=== PATIENT | female | born 1950 | race Caucasian/White ===

== ENCOUNTER → 2017-09-11 | Outpatient (CLI) | payer MEDICARE, SELFPAY | PROVIDERS: Visit Provider Surgery | DX: R97.0 Elevated carcinoembryonic antigen [CEA]; Z85.038 Personal history of other malignant neoplasm of large intestine ==

== ENCOUNTER → 2017-09-17 | Outpatient (CLI) | payer MEDICARE, SELFPAY | PROVIDERS: Visit Provider Surgery | DX: R97.0 Elevated carcinoembryonic antigen [CEA] (principal); Z85.038 Personal history of other malignant neoplasm of large intestine | CPT/HCPCS: 71260; 74177; Q9967 ==

== ENCOUNTER → 2017-11-25 07:59 | Outpatient (CLI) | payer MEDICARE, SELFPAY ==
--- NOTE | 2017-11-25 08:08 | XR_ITS ---
XR KUB CLINICAL INDICATION: ITS.REASON: KIDNEY STONES ORDERING PHYSICIAN: Jordin Isabel MD PATIENT AGE: 67 years COMPARISON: 06/19/2016 FINDINGS: There is some residual barium within the colon from very minimal. Prior fusion of L4-L5 with degenerative changes of the spine. Previously noted calcific density to the right of L1-L2 is once again noted unchanged consistent with an accessory center of ossification as seen on the CT scan. There are vascular calcifications. Bilateral hip prosthesis noted. There is sclerosis of the SI joints bilaterally left greater than right IMPRESSION: No obvious renal or ureteral calculi. Other findings as described above
== END ==
PROVIDERS: PCP Urology; Visit Provider Urology
DX: N20.0 Calculus of kidney (principal)
CPT/HCPCS: 74018

== ENCOUNTER → 2017-12-10 10:31 | Outpatient (POV) | payer MEDICARE, SELFPAY ==
[2017-12-10 11:50] LABS: Blood Urea Nitrogen 13 mg/dL (7-18); Creatinine,Serum 0.62 mg/dL (0.55-1.02); Estimated Glomerular Filt Rate 96 ml/min (>60); GFR (African American) 116 ML/MIN (>60)
[2017-12-12 09:29] LABS: CEA 3.5 ng/mL (0.0-4.7)
== END ==
PROVIDERS: Internal Medicine; Surgery; Visit Provider Otolaryngology
DX: R97.0 Elevated carcinoembryonic antigen [CEA] (principal); Z85.038 Personal history of other malignant neoplasm of large intestine
CPT/HCPCS: 36415; 82378; 82565; 84520

== ENCOUNTER → 2017-12-17 12:41 | Outpatient (CLI) | payer MEDICARE, SELFPAY ==
--- NOTE | 2017-12-17 12:43 | CT_ITS ---
CT chest w con HISTORY: Follow-up pulmonary nodule with history of colon cancer ORDERING PHYSICIAN: Humberto Frazier MD PATIENT AGE: 67 years TECHNIQUE: Axial images obtained following the administration of 75 mL of Isovue 370 . Sagittal, and coronal reformatted images are also generated and reviewed. All CT scans at the facility use one or more dose reduction, viz: automated exposure control; ma/kV adjustment per patient size (including targeted exams where dose is matched to indication; i.e. head); or iterative reconstruction technique. COMPARISON: 09/17/2017 FINDINGS: No mediastinal or hilar mass or adenopathy is evident. Coronary artery calcifications are present with normal heart size no evidence of aortic aneurysm.. Centrilobular emphysematous changes. There is a 5 mm noncalcified nodule in the anterior aspect of the right upper lobe. The nodule appears very slightly more bulky however this could be related to difference in slice orientation, probably overall not significantly changed. Additional 5 mm noncalcified nodule in the central aspect of the right upper lobe and a faint 5 mm nodule in the inferior aspect of the right upper lobe anteriorly unchanged. Calcified granuloma is present in the left lower lobe. There are mild dependent changes in the lung bases posteriorly. No effusions. No new nodules evident. There are bilateral submammary breast implants. No acute bony anomalies. Upper abdominal images show hepatic steatosis. IMPRESSION: 1. Overall stable CT appearance of the chest. Small noncalcified nodules in the right upper lobe are nonsignificant change. Suggest 6-9 month follow-up to confirm stability. 2. Centrilobular emphysema.
--- NOTE | 2017-12-17 13:36 | HMH.ITSHM ---
corar aspirin myrabotic maxim celebrex
== END ==
PROVIDERS: Family Provider Family Medicine; PCP Family Medicine; Visit Provider Surgery
DX: Z85.038 Personal history of other malignant neoplasm of large intestine (principal)
CPT/HCPCS: 71260; Q9967

== ENCOUNTER → 2017-12-24 10:44 | Outpatient (CLI) | payer MEDICARE, SELFPAY ==
[2017-12-24 11:17] LABS: Anion Gap 12.3 mEq/L (5-15); Blood Urea Nitrogen 11 mg/dL (7-18); Carbon Dioxide 28 mmol/L (21.0-32.0); Chloride 99 mmol/L (98-107); Creatinine,Serum 0.67 mg/dL (0.55-1.02); Estimated Glomerular Filt Rate 88 ml/min (>60); GFR (African American) 106 ML/MIN (>60); Glucose 118 mg/dL (74-106); Potassium 3.3 mmoL/L (3.5-5.1); Sodium 136 mmol/L (136-145)
== END ==
PROVIDERS: Family Provider Family Medicine; PCP Family Medicine; Visit Provider Surgery
DX: Z85.038 Personal history of other malignant neoplasm of large intestine (principal)
CPT/HCPCS: 36415; 80048

== ENCOUNTER → 2017-12-24 10:54 | Outpatient (POV) | payer MEDICARE, SELFPAY | PROVIDERS: Family Provider Family Medicine; PCP Family Medicine; Visit Provider Otolaryngology | DX: Z00.00 Encounter for general adult medical examination without abnormal findings (principal) ==

== ENCOUNTER → 2018-04-16 16:29 | Outpatient (CLI) | payer MEDICARE, SELFPAY ==
[2018-04-16 17:37] LABS: Anion Gap 11.3 mEq/L (5-15); Blood Urea Nitrogen 10 mg/dL (7-18); Calcium 9.5 mg/dL (8.5-10.1); Carbon Dioxide 28 mmol/L (21.0-32.0); Chloride 105 mmol/L (98-107); Creatinine,Serum 0.59 mg/dL (0.55-1.02); Estimated Glomerular Filt Rate 101 ml/min (>60); GFR (African American) 123 ML/MIN (>60); Glucose 117 mg/dL (74-106); Potassium 3.3 mmoL/L (3.5-5.1); Sodium 141 mmol/L (136-145)
== END ==
PROVIDERS: Visit Provider Otolaryngology
DX: R43.0 Anosmia (principal)
CPT/HCPCS: 36415; 80048

== ENCOUNTER → 2018-04-18 13:45 | Outpatient (CLI) | payer MEDICARE, SELFPAY ==
--- NOTE | 2018-04-18 14:00 | CT_ITS ---
CT head/brain wo/w con HISTORY: ITS.REASON: LOSS OF SMELL loss of smell sensation. ORDERING PHYSICIAN: Estephania Rush MD PATIENT AGE: 67 years COMPARISON: CT head without contrast May 2000 05 September 2013 TECHNIQUE: Today CT of the head with and without contrast performed... 100 cc Isovue-300 utilized. Hand injection. Axial CT scanning with Brain and bone windows performed and reviewed. All CT scans at the facility use one or more dose reduction, viz: automated exposure control; ma/kV adjustment per patient size (including targeted exams where dose is matched to indication; i.e. head); or iterative reconstruction technique. FINDINGS: No acute intracranial findings. No mass lesion or mass effect... No abnormal areas of enhancement post contrast. Particular attention is directed to the inferior frontal lobe and all ol factory groove. No mass lesion evident here. No enhancement on this axial survey study. Head. ( No coronal included).. No midline shift,. No intracranial hemorrhage. No extra axial fluid collection is evident. Mild physiologic calcification at basal ganglia bilaterally has progressed slightly since prior 2013 study with this with these calcifications most evident and progressive at left basal ganglia.. No significant additional enhancement is seen here however. This posterior fossa is unremarkable. CT bone windows. The skull is intact.. Paranasal sinus disease evident including air-fluid level left maxillary sinus consider follow-up CT sinuses Today's axial images only include the mid and upper maxillary sinuses. Right maxillary sinus with minor mucosal thickening superiorly. . Left maxillary sinus: Moderate mucosal thickening with air-fluid level at the level.. Acute sinusitis . Ethmoid air cells bilateral generous mucosal thickening most pronounced left ethmoid air cell continuing into the left frontal sinus which is opacified. . Right sphenoid sinus is nearly opacified. Left sphenoid sinus with Moderate to generous mucosal thickening at the inferior left sphenoid. Mastoid air cells are well-developed and clear. No mastoid effusion. Middle ear clear. IACs unremarkable. Posterior fossa unremarkable. IMPRESSION . 1. CT the brain with an without contrast reveals no enhancing lesions. No mass lesion.. 2. Physiologic calcification at basal ganglia bilaterally, which is progressed slightly on the left since previous CT head of 2013 . 3. Significant Paranasal sinus disease noted. ... Left maxillary sinus: Acute Sinusitis/. Air-Fluid Level, with moderate mucosal thickening. ... Opacification right sphenoid sinus with moderate thickening left sphenoid. ... Opacified Left Frontal Sinus ... Ethmoid air cells: Moderate mucosal thickening
== END ==
PROVIDERS: Family Provider Family Medicine; PCP Family Medicine; Visit Provider Otolaryngology
DX: R43.0 Anosmia (principal)
CPT/HCPCS: 70470; Q9967

== ENCOUNTER → 2018-05-13 08:53 | Outpatient (POV) | payer MEDICARE, SELFPAY | PROVIDERS: Family Provider Family Medicine; PCP Family Medicine; Visit Provider Otolaryngology | DX: Z00.00 Encounter for general adult medical examination without abnormal findings (principal) ==

== ENCOUNTER → 2018-06-10 08:34 | Outpatient (POV) | payer MEDICARE, SELFPAY | PROVIDERS: Family Provider Family Medicine; PCP Family Medicine; Visit Provider Otolaryngology | DX: Z00.00 Encounter for general adult medical examination without abnormal findings (principal) ==

== ENCOUNTER 2018-07-22 17:00 | Outpatient (RCR) | payer MEDICARE, SELFPAY | END 2018-07-22 17:01 | disposition home or self-care (01) | LOC: PT 17:00 | PROVIDERS: Family Provider Family Medicine; PCP Family Medicine; Visit Provider Orthopaedic Surgery | DX: Z96.641 Presence of right artificial hip joint (principal) | CPT/HCPCS: 97010; 97014; 97110; 97140; 97163; G0283 ==

== ENCOUNTER → 2018-11-28 08:28 | Outpatient (CLI) | payer MEDICARE, OTHER, SELFPAY ==
--- NOTE | 2018-11-28 08:33 | XR_ITS ---
XR DEXA axial skeleton HISTORY: ITS.REASON: OSTEOPENIA ORDERING PHYSICIAN: Shelby Angeles MD PATIENT AGE: 68 years COMPARISON: 03/07/2012 FINDINGS: Patient has bilateral hip replacements and has had prior fusion of the lower lumbar spine. BMD of the radius 33% 0.938 which is 0.6. The L1 L3 density increased by 3% compared to the previous exam. IMPRESSION: Normal bone density of the radius and lumbar spine. Recommend follow-up exam November 2020
== END ==
PROVIDERS: PCP Family Medicine; Visit Provider Family Medicine
DX: M85.89 Other specified disorders of bone density and structure, multiple sites (principal)
CPT/HCPCS: 77080

== ENCOUNTER → 2018-12-22 19:02 | Outpatient (CLI) | payer MEDICARE, OTHER, SELFPAY | PROVIDERS: Visit Provider Podiatrist | DX: B35.1 Tinea unguium (principal) | CPT/HCPCS: 87102; 87206; 87220 ==

== ENCOUNTER 2019-07-23 17:00 | Outpatient (RCR) | payer MEDICARE, OTHER, SELFPAY | END 2019-07-23 17:05 | disposition home or self-care (01) | LOC: PT 17:00 | PROVIDERS: PCP Family Medicine; Visit Provider Orthopaedic Surgery | DX: M62.81 Muscle weakness (generalized) (principal); M25.551 Pain in right hip | CPT/HCPCS: 97010; 97110; 97163; 97164 ==

== ENCOUNTER 2020-04-07 17:00 | Outpatient (RCR) | payer MEDICARE, OTHER, SELFPAY | END 2020-04-07 17:05 | disposition home or self-care (01) | LOC: PT 17:00 | PROVIDERS: PCP Family Medicine; Visit Provider Orthopaedic Surgery | DX: M25.551 Pain in right hip (principal); Z96.641 Presence of right artificial hip joint | CPT/HCPCS: 97010; 97110; 97112; 97163 ==

== ENCOUNTER 2020-07-04 17:46 | Emergency (ER) | payer MEDICARE, OTHER, SELFPAY ==
[2020-07-04 19:15] VITALS: BP 126/75; PULSE 78; RESP 18; TEMP 36.6; O2SAT 99; BMI 27.6
--- NOTE | 2020-07-04 19:19 | HMH.EDUTC ---
[facility] [place] Disposition Clinical Impression: Encounter for laboratory testing for COVID-19 virus Disposition: Home, Self-Care Condition on Discharge: Good Instructions: Preventing the Spread of Coronavirus Discharge Instructions Additional Instructions: *Monitor Temp, Over the counter Motrin or Tylenol as directed/as needed Tylenol every 4 hours and Motrin every 6 hours (as long as your family doctor has told you that you can take it) for fever or pain. and straight to ER if unable to lower temp less than 101.0 after medication given You was tested for today for COVID19 your test result should be back later this evening, you may call back later this evening to see if your test results are back and the result You was given a handout with instructions for Self Quarantine and Self isolation for while you wait on test results and what to do if they are positive Referrals: Shelby Angeles MD [Primary Care Provider] - As needed Time of Disposition: 19:20 Medical Decision Making - James Inquiry Pt receiving controlled substance: No James was queried for this patient: No Vital Signs: 07/04/20 19:15 Temperature 97.8 F Temperature Source Oral Pulse Rate [Right Brachial] 78 Respiratory Rate 18 Blood Pressure [Right Arm] 126/75 Blood Pressure Mean [Right Arm] 92 Blood Pressure Source [Right Arm] Automatic Cuff Blood Pressure Position [Right Arm] Sitting 02 Sat by Pulse Oximetry 99 Oxygen Delivery Method Room Air Orders (Tests/Meds): ORDERS Category Date Time Status Covid-19 Nasal PCR ([facility]) Routine Lab 07/04/20 19:09 Received [facility] [place] HPI - General Stated complaint: Covid test Time Seen by Provider: 07/04/20 19:19 Mode of Arrival: Ambulatory Source of Information: Patient Limitations: No Limitations Description of Symptoms (Recalled from Triage Doc. 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 and she wanted to make sure that she didnt have COVID - Related Data Home Medications Medication Instructions Recorded Confirmed albuterol sulfate 90 mcg/actuation 90 mcg INHALATION ONCE 09/25/17 03/28/20 breath activated powder inhaler aspirin 81 mg tablet,delayed 81 mg PO QDAY 09/25/17 03/28/20 release celecoxib 200 mg capsule 200 mg PO QDAY 09/25/17 03/28/20 losartan 25 mg tablet 25 mg PO ONCE 12/18/17 03/28/20 potassium chloride 10 mEq 1 cap PO DAILY 30 Days #30 tab 12/22/18 03/28/20 tablet,extended release Triamterene/Hydrochlorothiazid 1 cap PO DAILY 09/10/19 03/28/20 [Maxzide-25 tablet] ciclopirox 8 % topical solution 1 applic TOPICAL QHS 09/28/19 03/28/20 Allergies Allergy/AdvReac Type Severity Reaction Status Date / Time LYSOL SPRAY Allergy Severe THROAT Uncoded 09/21/19 10:05 CLOSED - Worker's Comp Is this a Worker's Comp case?: No [facility] History - Hepatitis A Screen Drug use history?: No High risk sexual behaviors?: No History of sexually transmitted infection?: No Currently employed?: No Childcare worker?: No Do you have indoor plumbing?: Yes Do you have electricity?: Yes Attestation statement:: This patient has been screened for Hepatitis A risk factors. I have reviewed the patient's past medical history: Yes Medical History: Reports:: Cancer, Hypertension, Kidney Stones Denies:: Anxiety, Depression, Diabetes Mellitus Type 1, Diabetes Mellitus Type 2, Internal Pacemaker, MRSA, Seizures Other Medical History: Reports: Arthritis, Cataracts, Chemotherapy, Other Laterality Cases: Bilateral: Tonsillectomy, Total Hip Replacement, Other Other Surgeries: Yes: Appendectomy
[2020-07-04 19:25] VITALS: BP 126/75; PULSE 78; RESP 18; TEMP 36.6; O2SAT 99
== END 2020-07-04 19:28 | disposition home or self-care (01) ==
PROVIDERS: Emergency Provider Nurse Practitioner; PCP Family Medicine
DX: Z20.828 Contact with and (suspected) exposure to other viral communicable diseases (principal)
CPT/HCPCS: 99201; U0003

== ENCOUNTER → 2021-04-11 09:07 | Outpatient (POV) | payer MEDICARE, OTHER, SELFPAY | PROVIDERS: Visit Provider Dermatology | DX: Z00.00 Encounter for general adult medical examination without abnormal findings (principal) ==

== ENCOUNTER 2021-10-27 15:41 | Emergency (ER) | payer MEDICARE, OTHER, SELFPAY ==
--- NOTE | 2021-10-27 15:43 | XR_ITS ---
FINAL REPORT CLINICAL HISTORY: shut rt thumb in car door yesterday FINDINGS: 3 views of the right hand were obtained. There is no acute fracture or dislocation. There are severe degenerative changes at the 1st CMC joint. There are mild degenerative changes elsewhere in the hand. There is no soft tissue abnormality. IMPRESSION: No acute bony abnormality. Reviewed, Interpreted and Dictated by Janak Molina III, MD Transcribed by Martin Joe Authenticated by Janak Molina III, MD on 10/30/2021 08:13:42 AM [facility]
[2021-10-27 16:10] VITALS: BP 133/81; PULSE 88; RESP 16; TEMP 36.6; O2SAT 98; BMI 29.2
--- NOTE | 2021-10-27 16:56 | HMH.EDUTC ---
[facility] [place] Impression: Crushing injury of left thumb Qualifiers: Encounter type: initial encounter Qualified Code(s): S67.02XA - Crushing injury of left thumb, initial encounter Disposition: Home, Self-Care Condition on Discharge: Good Instructions: Finger Sprain, DI for Crush Injury Additional Instructions: Rest the extremity, apply ice for 15 minutes as tolerated three or four times per day, Elevate the extremity as tolerated while you are resting. Take ibuprofen for pain. I sent in a prescription to your pharmacy. Follow up with Dr. Zelaya (orthopedics). Sometimes there can be fractures that don't show up well on the first set of x-rays. So, you should follow up. I put in a referral but you need to call his office and schedule an appointment. Follow up with your regular doctor. GO TO THE ER FOR ANY WORSENING SYMPTOMS Referrals: Shelby Angeles MD [Primary Care Provider] - Edilberto Zelaya MD [Staff Physician] - Time of Disposition: 18:26 Medical Decision Making - Medical Records Medical records reviewed: No: I reviewed the patient's medical records. - James Inquiry Pt receiving controlled substance: No Vital Signs: 10/27/21 16:10 10/27/21 17:51 Temperature 97.8 F 97.8 F Temperature Source Oral Pulse Rate 88 Pulse Rate [Left Brachial] 88 Respiratory Rate 16 16 Blood Pressure 133/81 Blood Pressure [Left Arm] 133/81 Blood Pressure Mean [Left Arm] 98 Blood Pressure Source [Left Arm] Automatic Cuff Blood Pressure Position [Left Arm] Sitting 02 Sat by Pulse Oximetry 98 Oxygen Delivery Method Room Air Orders (Tests/Meds): ORDERS Category Date Time Status XR hand RT min 3V Stat Exams 10/27/21 15:43 Taken - Radiology Data #1 Image(s): Hand Image Reviewed: Yes I reviewed the patient's radiology image, Yes I have reviewed radiologist's interpretation Preliminary Findings: No Fracture [place]en [facility] [place] - General Stated complaint: AO01/03 R thumb injury Time Seen by Provider: 10/27/21 16:56 Mode of Arrival: Ambulatory Source of Information: Patient Limitations: No Limitations Description of Symptoms (Recalled from Triage Doc. by RN): PATIENT REPORTS SHE SLAMMED HER RIGHT THUMB IN DOOR YESTERDAY AFTERNOON HEENT Symptoms (Recalled from RN notes): No Resp Symptoms (Recalled from RN notes): No Skin Symptoms (Recalled from RN notes): No MS Symptoms (Recalled from RN notes): Yes Functional Status (Recalled from RN notes): WNL - History of Present Illness Provider Complaint: She reports that she closed her left thumb up in her car door yesterday. She has been having thumb pain and swelling. She has bruising beneath her nail. She states that when she bend her thumb it causes worse pain. She denies numbness or weakness of her thumb. - Related Data Home Medications Medication Instructions Recorded Confirmed albuterol sulfate 90 mcg/actuation 90 mcg INHALATION ONCE 09/25/17 08/29/21 breath activated powder inhaler aspirin 81 mg tablet,delayed 81 mg PO QDAY 09/25/17 08/29/21 release celecoxib 200 mg capsule 200 mg PO QDAY 09/25/17 08/29/21 potassium chloride 10 mEq 1 cap PO DAILY 30 Days #30 tab 12/22/18 08/29/21 tablet,extended release RX: Triamterene/Hydrochlorothiazid 1 cap PO DAILY 09/10/19 08/29/21 [Maxzide-25 tablet] losartan 50 mg tablet 50 mg PO tab 10/24/20 08/29/21 rosuvastatin 10 mg tablet 10 mg PO tab 10/24/20 08/29/21 Previous Rx's Medication Instructions Recorded ciclopirox 8 % topical solution 1 applic TOPICAL QHS #6.6 ml 05/31/21 Allergies Allergy/AdvReac Type Severity Reaction Status Date / Time No Known Allergies Allergy Verified 08/29/21 13:47 - Worker's Comp Is this a Worker's Comp case?: No [facility] History - Hepatitis A Screen Drug use history?: No High risk sexual behaviors?: No History of sexually transmitted infection?: No Currently employed?: No Childcare worker?: No Do you have indoor plu
[2021-10-27 17:51] VITALS: BP 133/81; PULSE 88; RESP 16; TEMP 36.6; O2SAT 98
== END 2021-10-27 18:34 | disposition home or self-care (01) ==
PROVIDERS: Emergency Provider Nurse Practitioner Family; PCP Family Medicine
DX: S67.02XA Crushing injury of left thumb, initial encounter (principal); W23.1XXA Caught, crushed, jammed, or pinched between stationary objects, initial encounter; Y92.89 Other specified places as the place of occurrence of the external cause; I10 Essential (primary) hypertension
CPT/HCPCS: G0463; 73130; 99202

== ENCOUNTER 2021-12-18 09:00 | Emergency (ER) | payer MEDICARE, OTHER, SELFPAY ==
[2021-12-18 09:10] VITALS: BP 129/76; PULSE 87; RESP 21; TEMP 36.8; O2SAT 95; BMI 28.8
[2021-12-18 09:43] LABS: UTC Influenza A Antigen Negative (Negative)
[2021-12-18 09:44] LABS: UTC Influenza B Antigen Negative (Negative)
--- NOTE | 2021-12-18 09:47 | HMH.EDUTC ---
[facility] [place] Disposition Clinical Impression: Sinusitis Qualifiers: Sinusitis location: unspecified location Chronicity: unspecified Qualified Code(s): J32.9 - Chronic sinusitis, unspecified Disposition: Home, Self-Care Condition on Discharge: Good Instructions: Sinusitis, DI for Sinusitis Additional Instructions: ? Start antibiotic today. Be sure to complete entire prescription even if feeling better ? Monitor temp. Tylenol every 4 hours as needed and / or ibuprofen every 6 hours as needed ( As long as your primary care physician has told you that it ok to take both. For fever/aches/pains ER if no less than 101 despite Tylenol or Motrin ? Humidifier/vaporizer or hot steamy shower ? Inhaler every 4-6 hours as needed like we discussed. If unsure how to use it, ask pharmacist to demonstrate how. Should help open airways and improve cough, wheezing, and shortness of breath *Tessalon Perles will not cause drowsiness but use at bedtime to help stop cough so that you may get some rest. *Start steroid today. Helps with inflammation therefore, cough and wheezing. Follow directions on the package. Reviewed side effects. Patient reports taking them before. Follow up IMMEDIATELY for new or worsening of symptoms OR no noticeable improvement over the next 48-72 hours. 911 immediately for any life threatening symptoms such as chest pain or difficulty breathing Prescriptions: Benzonatate [Benzonatate 100mg cap] 100 mg PO Q8HP PRN #15 cap PRN Reason: Cough Transmission Status: Pending to [facility] Amoxicillin/Potassium Clav [Amox-Clav 875-125 mg Tablet] 1 tab PO BID #20 tab Transmission Status: [facility] predniSONE [Deltasone 10mg tablet] 10 mg PO BID #10 tab Transmission Status: Pending to [facility] Referrals: Shelby Angeles MD [Primary Care Provider] - As needed Forms: Work/School Release Time of Disposition: 09:57 Medical Decision Making - James Inquiry Pt receiving controlled substance: No James was queried for this patient: No Vital Signs: 12/18/21 09:10 Temperature 98.3 F Temperature Source Oral Pulse Rate [Right Brachial] 87 Respiratory Rate 21 Blood Pressure [Right Arm] 129/76 Blood Pressure Mean [Right Arm] 93 Blood Pressure Source [Right Arm] Automatic Cuff Blood Pressure Position [Right Arm] Sitting 02 Sat by Pulse Oximetry 95 Oxygen Delivery Method Room Air - Lab Data Lab results reviewed: Yes: I reviewed the patient's lab results. Lab Results 12/18/21 09:20: Influenza Type A Ag Negative, Influenza Type B Ag Negative Orders (Tests/Meds): ORDERS Category Date Time Status Rapid Strep Scrn Group A [Strep Scrn Group A (Rapid)] Lab 12/18/21 09:27 Received Stat Medical Decision Narrative: Patient states that she has taken augmentin and prednisone in the past without complications or reactions [facility] [place] HPI - General Stated complaint: sore throat, congestion, watery eyes Time Seen by Provider: 12/18/21 09:20 Mode of Arrival: Ambulatory Source of Information: Patient Limitations: No Limitations Description of Symptoms (Recalled from Triage Doc. by RN): PATIENT C/O SCRATCHY THROAT, SINUS DRAINAGE, AND COUGH SINCE SATURDAY HEENT Symptoms (Recalled from RN notes): Yes Resp Symptoms (Recalled from RN notes): Yes Skin Symptoms (Recalled from RN notes): No MS Symptoms (Recalled from RN notes): No Functional Status (Recalled from RN notes): WNL - History of Present Illness Provider Complaint: Patient statse that she has been having sinus pain and pressure along with drainage in the back of his throat states that it is causing her to have a nasty cough States that the pressure behind her eyes was worse today so she came in to get checked out - Related Data Home Medications Medication Instructions Recorded Confirmed albuterol sulfate 90 mcg/actuation 90 mcg INHALATION ONCE 09/25/17 12/14/21 breath activated powder inhaler aspirin 81
[2021-12-18 09:49] LABS: Strep Scrn Group A (Rapid) Negative (Negative)
[2021-12-18 09:59] VITALS: BP 129/76; PULSE 87; RESP 21; TEMP 36.8; O2SAT 95
== END 2021-12-18 10:06 | disposition home or self-care (01) ==
PROVIDERS: Emergency Provider Nurse Practitioner; PCP Family Medicine
DX: J32.9 Chronic sinusitis, unspecified (principal); I10 Essential (primary) hypertension; N20.0 Calculus of kidney; M19.90 Unspecified osteoarthritis, unspecified site; H26.9 Unspecified cataract; Z92.21 Personal history of antineoplastic chemotherapy; Z79.51 Long term (current) use of inhaled steroids; Z79.52 Long term (current) use of systemic steroids; Z79.82 Long term (current) use of aspirin; Z79.899 Other long term (current) drug therapy; Z87.891 Personal history of nicotine dependence; Z82.49 Family history of ischemic heart disease and other diseases of the circulatory system; Z80.9 Family history of malignant neoplasm, unspecified; Z82.5 Family history of asthma and other chronic lower respiratory diseases; Z83.3 Family history of diabetes mellitus
CPT/HCPCS: 87430; 87804

== ENCOUNTER 2022-01-23 17:00 | Outpatient (RCR) | payer MEDICARE, OTHER, SELFPAY | END 2022-01-23 17:05 | disposition home or self-care (01) | LOC: PT 17:00 | PROVIDERS: PCP Family Medicine | DX: M65.4 Radial styloid tenosynovitis [de Quervain] (principal) | CPT/HCPCS: 97010; 97018; 97035; 97110; 97163 ==

== ENCOUNTER → 2022-04-28 08:15 | Outpatient (CLI) | payer MEDICARE, OTHER, SELFPAY | PROVIDERS: PCP Family Medicine; Visit Provider Surgery | DX: Z01.812 Encounter for preprocedural laboratory examination (principal); Z20.822 Contact with and (suspected) exposure to COVID-19; Z12.11 Encounter for screening for malignant neoplasm of colon | CPT/HCPCS: C9803; U0003; U0005 ==

== ENCOUNTER 2022-05-01 07:44 | Day surgery (SDC) | payer MEDICARE, OTHER, SELFPAY ==
[2022-04-26 12:44] VITALS: BMI 27.1
[2022-05-01] VITALS (7 sets, daily range): BP systolic 111–141; BP diastolic 69–91; PULSE 77–83; RESP 15–18; TEMP 36.3–36.8; O2SAT 93–98
--- NOTE | 2022-05-01 09:20 | HMH.ANESCL ---
[facility] Anesthesia Checklist - Patient Identification Patient Identification: Arm Band - Structural Data Admitted From: Home Planned Operative Procedure/s: colonoscopy Consent for Planned Operative Procedure(s) Verified: Yes Verified Documents: Surgical Consent, History and Physical - NPO Status Verified Time NPO: 00:00 - Additional verifications Anesthesia Reactions: No - Airway Assessment C-Spine Mobility Assessed: Yes (mp2) TMJ Mobility Assessed: Yes Dentition: Dentures-good fit - Neurological Assessment Level of Consciousness: Awake, Alert - Anesthesia Plan Anesthesia Risk discussed: Yes Anesthesia Plan: Verified ASA Class: II Anesthesia Type: MAC [facility] History I have reviewed the patient's past medical history: Yes Medical History: Reports:: Cancer, Hypertension, Kidney Stones Denies:: Anxiety, Depression, Diabetes Mellitus Type 1, Diabetes Mellitus Type 2, Internal Pacemaker, MRSA, Seizures *Have you ever received a pneumonia vaccine?: Yes *Have you received a flu vaccine this season?: Yes Other Medical History: Reports: Arthritis, Cataracts, Chemotherapy, Other Anesthesia experience/problems:: nac Laterality Cases: Bilateral: Cataract, Tonsillectomy, Total Hip Replacement, Other Other Surgeries: Yes: Appendectomy, Cancer Surgery, Colonoscopy, Colon Resection, Skin Cancer Excision, Other. No: Pacemaker Amputation: No Fractures: No - *Social History Last grade of school completed: Some college Smoking Status: Never smoker Tobacco Type: cigarettes # Packs/Day (cigarettes): 1 #Yrs smoked (if former smoker): 20 Alcohol Intake: never Alcohol Intake Frequency:: other Substance Use Type: denies use *Occupational Status:: other Housing: house Household Members: none *Travel in the last 8 weeks: Inside the [place] - Psychiatric History Pschychiatric History:: Denies:: Anxiety, Attention Deficit Disorder, Bipolar Disorder, Depression, Eating Disorder, Post Traumatic Stress Disorder, Suicide Attempt, Psychiatric Treatment, Schizophrenia Family Hx:: Cancer, Heart Attack, Diabetes, Asthma, Hypertension BAR ASSISTANT history: No BAR ASSISTANT history
--- NOTE | 2022-05-01 09:56 | HMH.SCOPE ---
- Procedure: Date: 05/01/22 Patient Date of :: 1950 Procedure Performed:: Colonoscopy Indications:: History of colon cancer The patient is status post right hemicolectomy in November 2010 for T1N0 colon cancer. Intermittent elevated CEA levels have been noted. Her most recent colonoscopy in August 2017 revealed hyperplastic polyps. This was followed by barium enema that was essentially negative. In August 2019 a colonoscopy did reveal a complex inflammatory pseudopolyp polyp at 25 cm. This area was tattooed. She also has an area of tattoo close to her anastomosis. Performing Provider:: Humberto Frazier MD Referring Provider:: . Sedation:: Monitored anesthesia care Procedure:: After informed consent was obtained the patient was taken to the endoscopy suite. Sedation ensued after the patient was transferred to the left lateral decubitus position. Pulse, blood pressure, and oxygen saturation were monitored throughout the procedure. Digital rectal exam revealed no significant abnormality. The colonoscope was placed in position. The entire remaining colon was evaluated. The colonoscope was carefully removed and the patient was transferred to recovery in stable condition. Please see findings and specimens below for detail. Findings:: Bowel preparation fairly poor Fairly severe diverticulosis (worse in sigmoid) Normal-appearing anastomosis No significant abnormalities noted at sites of tattoo placement (close to anastomosis and a 25 cm) Specimens:: None Recommendations:: Repeat CEA level if not done recently Repeat colonoscopy in 1-2 years with extended bowel preparation Complications:: No immediate with the exception of relatively poor bowel preparation Estimated blood obtained (mL): 0
== END 2022-05-01 10:50 | disposition home or self-care (01) ==
LOC: OUTP 07:46
PROVIDERS: PCP Family Medicine; Visit Provider Surgery
PROC: 0DJD8ZZ Inspection of Lower Intestinal Tract, Via Natural or Artificial Opening Endoscopic (ICD-10-PCS; principal; 2022-05-01 09:30)
DX: Z90.49 Acquired absence of other specified parts of digestive tract; Z85.038 Personal history of other malignant neoplasm of large intestine; Z12.11 Encounter for screening for malignant neoplasm of colon; I10 Essential (primary) hypertension
CPT/HCPCS: G0105

== ENCOUNTER → 2022-06-13 11:44 | Outpatient (CLI) | payer MEDICARE, OTHER, SELFPAY | PROVIDERS: PCP Family Medicine; Visit Provider Physician Assistant | DX: R00.2 Palpitations (principal) | CPT/HCPCS: 93225; 93226 ==

== ENCOUNTER → 2022-06-18 14:58 | Outpatient (CLI) | payer MEDICARE, OTHER, SELFPAY ==
--- NOTE | 2022-06-18 15:04 | CA_ITS ---
APPROVED REPORT EXAM: Comprehensive 2D, Doppler, and color-flow Echocardiogram Harvest Supervisor: Bina Ott RVT Ht: 5 ft 6 in Wt: 181lbs BSA: 1.92 BP: 125/79 mmHg Indications: MURMUR,HTN 2D Dimensions LVOT 1.83 cm (M/F) 1.5-2.5 LA Volume 33.90 mL LA Volume Index 17.74 mL/m2 (M/F) 16-34 M-Mode Dimensions RVDd 2.81 cm (0.9-2.6) LA Diam 3.70 cm (1.9-4.0) LVDd 4.33 cm (3.5-5.7) Ao Diam 2.73 cm (2.0-3.7) LVDs 3.00 cm (3.5-5.7) IVSd 0.87 cm (0.6-1.1) PWd 0.87 cm (0.6-1.1) EF (Teich) 58.50% FS 30.70% EDV (Teich) 84.40 mL TAPSE 2.54 (<1.7) ESV (Teich) 35.00 mL LV Diastology E Decel Time 237.00 (160-240 msec) E/A Ratio 0.8 MED E' 11.80 (< 7 cm/sec) E'/MED E' Ratio 4.83 (>14) LAT E' 8.50 (<10 cm/sec) E/LAT E' Ratio 6.71 (>14) Aortic Valve AO Peak GR. 3.40 mmHg Mitral Valve MV E Max Hermilo. 57.00 (40-130 cm/s) MV A Velocity 75.00 (40-130 cm/s) E/A Ratio 0.76 MV Decel. Time 237.00 (160-240 ms) MV PHT 69.00 ms Pulmonary Valve PV Peak Velocity 88.00 (50-150 cm/s) Left Ventricle Left atrium is mildly enlarged, left ventricle is normal size mild concentric left ventricular hypertrophy, estimated ejection fraction 55% with no regional wall motion abnormality, grade 1 diastolic dysfunction seen without tissue Doppler evidence of raise left atrial pressure. Right Ventricle Right atrium and right ventricle are mildly enlarged with normal contractility. Aortic Valve Aortic valve is minimally thickened and calcified without aortic stenosis or aortic insufficiency. Mitral Valve Mitral valve is grossly normal, there is trace mitral regurgitation. Tricuspid Valve Tricuspid valve grossly normal, there is trace tricuspid regurgitation, tricuspid regurgitation jet velocity is inadequate for calculation of the right ventricular systolic pressure. Pulmonic Valve Pulmonic valve is poorly visualized. Great Vessels Aortic root is normal size. Inferior vena cava is poorly visualized. Pericardium No significant pericardial effusion noted. Conclusion 1. Mild biatrial enlargement, normal left ventricular size, mild concentric left ventricular hypertrophy, estimated ejection fraction 55% with no regional wall motion abnormality, grade 1 diastolic dysfunction seen without tissue Doppler evidence of raise left atrial pressure. 2. Mildly enlarged right ventricle with normal contractility. 3. Trace mitral and tricuspid regurgitation. 4. No significant pericardial effusion noted. 5. Inferior vena cava is poorly visualized. Electronically signed by : Seymour Storey MD 06/18/2022 17:35:56
== END ==
PROVIDERS: PCP Family Medicine; Visit Provider Physician Assistant
DX: R01.1 Cardiac murmur, unspecified (principal)
CPT/HCPCS: 93306

== ENCOUNTER → 2022-07-05 07:38 | Outpatient (CLI) | payer MEDICARE, OTHER, SELFPAY ==
--- NOTE | 2022-07-05 | CA_ITS ---
APPROVED REPORT Exam: Exercise Treadmill Technologist: Marleny Curry, Ht: 5 ft 6 in Wt: 185 lbs BSA: 1.93 m2 HR: 68 bpm BP: 136/71 mmHg Rhythm: NSR, rightward axis, low voltage QRS Medical History Medical History: HTN Medications: Potassium Chloride,,,,, Losartan,,,,, Albuterol,,,,, CeleBREX,,,,, TriaMtrene hctz,,,,, Cardiac Risk Factors: HTN, Smoking Stress Test Details Test: Manual Treadmill HR Resting HR: 82 bpm Max Heart Rate (APMHR): 148.314943 bpm Max HR Achieved: 162 bpm Target HR (85% APMHR): 125.687336 bpm % of APMHR: 109.46 Recovery HR: 127 bpm BP Resting BP: 124/80 mmHg Max BP: 188/84 mmHg Recovery BP: 178.0/83.0 mmHg ECG Resting ECG: NSR, rightward axis, low voltage QRS Clinical Exercise duration: 11:01 min Highest Stage Achieved: Exercise capacity: 6.8 METs Stress ECG Conclusion Pt walked 11:01 on manual protocol. Max grade of 12% and max speed of 2.4. No CP noted. Occasional PVC. Appox. 1mm horizontal ST depression laterally at peak HR and approx. .5mm in late recovery. Equivocal EKG changes for ischemia. Myoview images reported separately. Test Summary Stage 1 . . . . . . . . REST . . . . . . . Standing REST 03:39 0.0 0.0 82 . 124/ 80 . . Stage 1 01:00 10.0 1.7 0 . . . . Stage 1 02:00 10.0 1.7 123 . . . . Stage 1 . . . . . . . Stage held Stage 1 03:00 10.0 1.7 129 . 188/ 84 . . Stage 1 04:00 10.0 1.7 139 . 188/ 84 . . Stage 1 05:00 10.0 1.7 137 . 188/ 84 . . Stage 1 06:00 10.0 1.7 141 . 188/ 84 . . Stage 1 . . . . . . . Protocol changed to Manual Treadmill Stage 1 07:00 10.0 2.0 142 . 188/ 84 . . Stage 1 08:00 10.0 2.0 142 . 188/ 84 . . Stage 1 09:00 10.0 2.2 143 . 188/ 84 . . Stage 1 10:00 12.0 2.4 144 . 188/ 84 . . Stage 1 11:00 12.0 2.4 150 . 188/ 84 . . Stage 1 . . . . . . . Stage resumed Stage 1 11:01 12.0 2.4 150 . 188/ 84 . Stop exercise at 11:01 RECOVERY 01:00 0.0 0.0 127 . . . . RECOVERY 02:00 0.0 0.0 112 . . . . RECOVERY 03:00 0.0 0.0 102 . 164/ 90 . . RECOVERY 04:00 0.0 0.0 98 . 164/ 90 . . RECOVERY 05:00 0.0 0.0 98 . 167/ 90 . . RECOVERY 06:00 0.0 0.0 95 . 143/ 78 . . RECOVERY 06:25 0.0 0.0 93 . 143/ 78 . . Electronically signed by : Seymour Storey MD 07/06/2022 09:05:07
--- NOTE | 2022-07-05 07:47 | NM_ITS ---
APPROVED REPORT Exam: Nuclear Stress Test Indication: palpitations..abn ecg Patient Location: Outpatient Stress Tech: Marleny Curry [place] Tech:GENESIS Castillo RT(R)(N) Ht: 5 ft 6 in Wt: 180 lbs Bra Size: c HR: 82 bpm BP: 124/80 mmHg BSA: 1.91 m2 TID: 1.13 BMI: 29.0 History: palpitations..abn ecg Procedure: Patient exercised on Matthew protocol 11:01 minutes and sec, resting heart rate 82 bpm, resting blood pressure 124/80 mmHg, with exercise maximum heart rate achived was 162 bpm which is 109 % of the maximum predicted heart rate and blood pressure was 188/84 mmHg. Patient denied any complaint of chest pain. Patient has Adequate exercise capacity, achieved 6.8 METs of workload on treadmill, the blood pressure response to exercise was Adequate. Electrocardiogram Resting electrocardiogram shows sinus rhythm, with exercise there is almost a millimeter ST segment depression noted from the baseline EKG in the recovery. The EKG portion of the exercise Myoview is positive for ischemia. Cardiac Stress and Resting SPECT Images: Cardiac Stress and Resting SPECT images were obtained using technetium 99m Myoview 30.3 mCi stress and 10.44 mCi at rest. Gated SPECT analysis of segmental wall motion and calculation of the ejection fraction also done. Prone images were also obtained. Cardiac stress and rest SPECT images show mild fixed defect in the anterior wall with normal contractility in the gated SPECT is likely secondary to soft tissue attenuation, no reversible ischemia seen, computer derived ejection fraction is over 65% with no regional wall motion abnormality, right ventricle is normal size and contractility. Conclusion: 1. The EKG portion of the exercise Myoview is positive for ischemia, patient has adequate exercise capacity achieved 6.8 METs of workload on treadmill, the blood pressure response to exercise was adequate, there was no exercise-induced chest discomfort. 2. No scintigraphic evidence of reversible ischemia seen at this level of exercise, computer derived ejection fraction is over 65% with no regional wall motion abnormality, right ventricle is normal size and contractility. 3. Equivocal myocardial perfusion imaging the EKG is positive for ischemia however the perfusion imaging did not show any reversibility. Electronically signed by : Seymour Storey MD 07/06/2022 09:08:44
== END ==
PROVIDERS: PCP Family Medicine; Visit Provider Physician Assistant
DX: R00.2 Palpitations; R93.1 Abnormal findings on diagnostic imaging of heart and coronary circulation; R94.31 Abnormal electrocardiogram [ECG] [EKG]; Z87.891 Personal history of nicotine dependence
CPT/HCPCS: 78452; 93017; A9502

== ENCOUNTER 2022-08-24 17:00 | Outpatient (RCR) | payer MEDICARE, OTHER, SELFPAY ==
--- NOTE | 2022-08-02 17:48 | HMH.PTOPEV ---
PT Outpatient Evaluation Rehab PT Outpatient Evaluation Start: 08/02/22 17:00 Freq: Status: Active Protocol: Document 08/02/22 17:00 ARCELIAHERRERA (Rec: 08/02/22 17:41 AZNDERLUZMARIA [id number]) E-signed By Lamont Johnston, PT Outpatient Therapy Subjective History Subjective History THis is the initial Physical Therapy evalaution for Alyssia Holly. Pt is a 71 y/o female referred to PT for c/o LLE sciatic pain and lumbar radiculopathy. Pt has surgical history of lumbar fusion at L4-S1. 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 Pt reports she has pain in posterior thigh/HS area and paresthesia into bottom of L foot. Chief Complaint Pain,Paresthesia,Weakness Symptom Type Ache,Dull,Numbness Symptoms Relieved By Rest/Positioning Symptoms Aggravated By Sitting Prior Functional Limitations None Current Functional Limitations Housework,Desk Work/Reading, Driving,Sitting Symptom Description Intermittent Lumbopelvic Eval Palapation tenderness left thoracic spinal tenderness No lumbar spinal tenderness Yes: L4/L5 paraspinal tenderness No buttock tenderness Yes: ischial tuberosity Lumbar/Sacral Palpation Findings Tenderness Accessory Movement L4 left L5 left Range of Motion Lumbar Spine ROM Reason Not Measured Within Functional Limits Special Tests Lumbar Spine Screen Positive Forward Bending Test- Standing Positive Left Forward Bending Test- Sitting Negative Left Hip Scouring (Quadrant) Test Negative Left Hip Piriformis Test Negative Left Hip Bowstring (Cram) Test Positive Left Sciatic Nerve Tension Test Positive Left Hip 90-90 Straight Leg Raise Test Positive Left Unilateral Straight Leg Raise (Lasegue) Positive Left Test Lumbar Long Shiloh Distraction Test/Manual Positive Traction Outpatient Therapy Assessment Impairments Problems/Impairmments Palpation Tenderness,Impaired Sitting,Impaired Driving, Impaired Stair Climbing, Impaired Bending,Impaired
== END 2022-08-24 18:06 | disposition home or self-care (01) ==
LOC: PT 17:00
PROVIDERS: Visit Provider Family Medicine
DX: M54.32 Sciatica, left side (principal)
CPT/HCPCS: 97010; 97110; 97163

== ENCOUNTER → 2022-10-24 08:59 | Outpatient (CLI) | payer MEDICARE, OTHER, SELFPAY ==
--- NOTE | 2022-10-24 10:00 | XR_ITS ---
FINAL REPORT TECHNIQUE: Bone densitometry calculations of the lumbar spine and left forearm were obtained. CLINICAL HISTORY: . osteopentia FINDINGS: DEXA BONE DENSITY AXIAL SKELETON Using L1-4, the bone mineral density of the spine is 1.135 g/cm2, corresponding to T-score of 0.8. Using the left forearm, the bone mineral density of the distal 1/3 is 0.686 g/cm2, corresponding to a T-score of -0.1. NOTE: T-score: Standard deviation compared with peak bone mass of young adult mean. IMPRESSION: Normal bone mineral density of the lumbar spine and left forearm. Reviewed, Interpreted and Dictated by Janak Molina III, MD Transcribed by Carole Parsons Authenticated and [facility]
== END ==
PROVIDERS: PCP Family Medicine; Visit Provider Family Medicine
DX: M85.89 Other specified disorders of bone density and structure, multiple sites (principal)
CPT/HCPCS: 77080

== ENCOUNTER → 2023-02-01 07:44 | Outpatient (CLI) | payer MEDICARE, OTHER, SELFPAY ==
--- NOTE | 2023-02-01 07:48 | MR_ITS ---
FINAL REPORT TECHNIQUE: Multiplanar MR without contrast CLINICAL HISTORY: PRESENCE OF RIGHT ARTIFICAL HIP JOINT. HIP REPLACEMENT NOVEMBER 2015. PATIENT FELL ON HIP 5 WEEKS AGO. PAIN WHEN WALKING COMPARISON: None FINDINGS: Hip arthroplasty artifact obscures bilateral hips. Visualized portions of the right femoral shaft are normal. No obvious fracture at the level of the prosthetic stem. No obvious fluid collection in the surrounding soft tissues such as hematoma. No pelvic musculature edema appreciated. IMPRESSION: Suboptimal evaluation of the bones. If concern for fracture at the level the trochanter, plain-film correlation is needed. No evidence of soft tissue edema or hematoma. Reviewed, Interpreted and Dictated by Shelby Albrecht MD Transcribed by Bonnie Ward Authenticated and . [facility]
== END ==
PROVIDERS: PCP Family Medicine; Visit Provider Physician Assistant
DX: M25.551 Pain in right hip (principal); Z96.641 Presence of right artificial hip joint
CPT/HCPCS: 73721

== ENCOUNTER → 2023-03-13 15:27 | Outpatient (CLI) | payer MEDICARE, OTHER, SELFPAY ==
--- NOTE | 2023-03-13 | XR_ITS ---
FINAL REPORT TECHNIQUE: Chest PA & Lateral CLINICAL HISTORY: .emphysema COMPARISON: 08/27/2017 FINDINGS: 2 views of the chest were performed. The heart size is normal. The mediastinum is within normal limits. The lungs are underinflated. There is no acute cardiopulmonary process. There are no pleural effusions. There is no pneumothorax. The bony thorax appears intact. IMPRESSION: No acute cardiopulmonary process. Reviewed, Interpreted and Dictated by Juan Manuel Raoms MD Transcribed by Bonnie Ward Authenticated and [facility]
[2023-03-13 16:01] LABS: Adenovirus,PCR Not Detected (NotDetected); Bordetella Pertussis Not Detected (NotDetected); Chlamydophila Pneumoniae, PCR Not Detected (NotDetected); Coronavirus 19, PCR Not Detected (NotDetected); Coronavirus 229E Not Detected (NotDetected); Coronavirus NL63 Not Detected (NotDetected); Coronavirus OC43 Not Detected (NotDetected); Coronovirus HKU1,PCR Not Detected (NotDetected); Human Metapneumovirus Not Detected (NotDetected); Influenza A, PCR Not Detected (NotDetected); Influenza AH1, 2009 Not Detected (NotDetected); Influenza AH1, PCR Not Detected (NotDetected); Influenza AH3,PCR Not Detected (NotDetected); Influenza B, PCR Not Detected (NotDetected); Mycoplasma Pneumoniae, PCR Not Detected (NotDetected); Parainfluenza 1, PCR Not Detected (NotDetected); Parainfluenza 2, PCR Not Detected (NotDetected); Parainfluenza 3, PCR Not Detected (NotDetected); Parainfluenza 4, PCR Not Detected (NotDetected); Respiratory Syncytial Virus Not Detected (NotDetected); Rhinovirus/Enterovirus Not Detected (NotDetected)
== END ==
PROVIDERS: PCP Family Medicine; Visit Provider Family Medicine
DX: J45.41 Moderate persistent asthma with (acute) exacerbation (principal); J43.2 Centrilobular emphysema; R06.09 Other forms of dyspnea
CPT/HCPCS: 71046; 87581; 87632; 87635; 87798; C9803; U0003; U0005

== ENCOUNTER → 2023-05-29 15:25 | Outpatient (CLI) | payer MEDICARE, OTHER, SELFPAY ==
[2023-05-29 15:47] LABS: Influenza A, PCR Not Detected (NotDetected); Influenza B, PCR Not Detected (NotDetected)
[2023-05-29 16:33] LABS: Coronavirus 19, PCR Detected (NotDetected)
== END ==
PROVIDERS: PCP Family Medicine; Visit Provider Physician Assistant
DX: Z20.822 Contact with and (suspected) exposure to COVID-19 (principal); U07.1 COVID-19
CPT/HCPCS: 87635; 87636

== ENCOUNTER 2023-06-10 17:00 | Outpatient (RCR) | payer MEDICARE, OTHER, SELFPAY | END 2023-06-10 17:05 | disposition home or self-care (01) | LOC: PT 17:00 | PROVIDERS: PCP Family Medicine; Visit Provider Orthopaedic Surgery | DX: M70.61 Trochanteric bursitis, right hip (principal) | CPT/HCPCS: 97010; 97014; 97110; 97112; 97163; 97164; 97530; G0283 ==

== ENCOUNTER 2023-07-30 08:14 | Day surgery (SDC) | payer MEDICARE, OTHER, SELFPAY ==
[2023-07-25 16:35] VITALS: BMI 28.8
[2023-07-30] VITALS (7 sets, daily range): BP systolic 112–151; BP diastolic 54–76; PULSE 75–90; RESP 16–18; TEMP 36.3–36.4; O2SAT 95–97
--- NOTE | 2023-07-30 08:32 | P.PCN_ITS ---
Procedure: Date: 07/30/23 Patient Date of :: 1950 Procedure Performed:: Colonoscopy Indications:: History of colon cancer This is a 72-year-old female with T1N0 colon cancer status post right hemicole ctomy in November 2010. She has noted intermittent elevated CEA levels with her most recent evaluations being completed at the [facility]. Her most recent colonoscopy in 2021 was somewhat complicated by fairly poor bowel preparation. Fairly severe diverticulosis noted. Her anastomosis appeared normal. 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 Performing Provider:: Humberto Frazier MD Referring Provider:: . Sedation:: Monitored anesthesia care Procedure:: After informed consent was obtained the patient was taken to the endoscopy suite. Sedation ensued after the patient was transferred to the left lateral decubitus position. Pulse, blood pressure, and oxygen saturation were monitored throughout the procedure. Digital rectal exam revealed no significant abnormality. The colonoscope was placed in position. The entire colon was evaluated. The colonoscope was carefully removed and the patient was transferred to recovery in stable condition. Please see findings and specimens below for detail. Findings:: Bowel preparation moderate overall (focal areas of poor prep likely secondary to diverticular-associated stool pockets) Unchanged severe diverticulosis (worse in sigmoid) Fairly significant spasticity and tortuosity No abnormality in/around tattoo site Normal-appearing anastomosis Specimens:: None Recommendations:: Repeat colonoscopy in 3-5 years secondary to history of colon cancer, spasticity/tortuosity, and moderate bowel preparation Complications:: No immediate Estimated blood obtained (mL): 0 Colonoscopy Component Colonoscopy Component Was a colonoscopy performed during today's procedure?: Yes Recommended follow up colonoscopy of at least 10 years?: No If no, follow up colonoscopy recommended in ___ years?: (See above) Reason for not recommending >/= 10 yr follow-up interval?: (See above)
--- NOTE | 2023-07-30 08:32 | EXP.ANES.CKL ---
[facility] Disclaimer: The information contained in this section may have been updated after the patient was seen, as this information can be updated by other users. Medical History Abnormal echocardiogram Bilateral impacted cerumen Cataract Coronary artery calcification seen on CAT scan Diastolic dysfunction Former smoker Hearing loss, bilateral History of colon cancer Palpitations Tinnitus, bilateral Surgical History H/O colonoscopy H/O hemicolectomy Hx of tonsillectomy S/P hip replacement Family History Other Family history of coronary artery disease Social History Smoking Status: Never smoker alcohol intake: never counseling provided: provider counseling substance use type: denies use current occupational status: other Travel in the last 8 weeks: None household members: none housing: house current occupation: [employer] current occupational exposures/hazards: No caffeine: Yes [facility] Anesthesia Checklist Patient Identification Patient Identification: Arm Band and Verbal (Name & ) Structural Data Admitted From: Home Planned Operative Procedure/s: Colonoscopy Consent for Planned Operative Procedure(s) Verified: Yes Verified Documents: Surgical Consent and History and Physical NPO Status Verified Time NPO: 05:00 Chart Verification Results Verified: CBC, ECG and Chest Xray Additional verifications Patient : No Anesthesia Reactions: No Hx Blood Transfusions: No Blood Transfusion Reaction: No Cephalosporin Allergy: No Previous Colonoscopy: Yes Cardiovascular Assessment Heart Sounds: S1 & S2 Pulse Rhythm: Irregular Peripheral Edema: No Airway Assessment Dentition: Dentures-good fit (Nothing loose per pt.) Neurological Assessment Level of Consciousness: Awake, Alert, Appropriate and Follows Commands Hx Seizures: No Numbness or tingling in extremities: No Anesthesia Plan Anesthesia Risk discussed: Yes Anesthesia Plan: Verified ASA Class: III Anesthesia Type: MAC
--- NOTE | 2023-07-30 12:19 | P.PNANES_ITS ---
[facility] Anesthesia Record Part I Anesthesia Record I Intake, IV Amount: 450 Hydration: Adequate Estimated blood loss (mL): 0 Urine output (mL): 0 Blood Products used (#): none Blood Pressure: 129/68 SaO2: 96 Pulse Rate: 84 Airway Patency: Patent Respiratory Rate: 16 Temperature: 97.4 F Patient is:: Awake, Drowsy and Stable Stable to PACU at:: 09:31
== END 2023-07-30 09:56 | disposition home or self-care (01) ==
PROVIDERS: PCP Family Medicine; Visit Provider Surgery
PROC: 0DJD8ZZ Inspection of Lower Intestinal Tract, Via Natural or Artificial Opening Endoscopic (ICD-10-PCS; CPT G0105; principal; 2023-07-30 09:30)
DX: Z12.11 Encounter for screening for malignant neoplasm of colon (principal); Z85.038 Personal history of other malignant neoplasm of large intestine; Z90.49 Acquired absence of other specified parts of digestive tract; K57.30 Diverticulosis of large intestine without perforation or abscess without bleeding; K56.2 Volvulus
CPT/HCPCS: G0105

== ENCOUNTER → 2023-09-13 14:45 | Outpatient (CLI) | payer MEDICARE, OTHER, SELFPAY ==
--- NOTE | 2023-09-13 14:52 | US_ITS ---
PROCEDURE INFORMATION: Exam: US Right Breast, Complete Exam date and time: 09/13/2023 3:19 PM Age: 73 years old Clinical indication: Breast pain; Left; Additional info: Check up on breast implants -- pain on lt breast after mamm TECHNIQUE: Imaging protocol: Complete ultrasound of all four quadrants of the right breast and the retroareolar regions, including ultrasound of the axilla when performed. COMPARISON: No relevant prior studies available. FINDINGS: Breast: Hypoechoic septated mass/collection along the 9 o'clock axis 10 cm from the right nipple measures 3.2 x 2.2 x 2.0 cm. The visualized portions of the implant capsule appear to be intact the with no obvious secondary signs of rupture No axillary adenopathy IMPRESSION: Complicated cystic appearing mass measuring up to 3.2 cm in the 9 o'clock right breast is nonspecific. Differential considerations include complicated cyst, complicated cystic mass, extracapsular silicone (potential implant rupture) or seroma/hematoma. Ultrasound is relatively insensitive in detection of implant rupture Given the clinical history of suspected implant rupture, definitive characterization with breast MRI is recommended ASSESSMENT: BI-RADS category 2: Benign
--- NOTE | 2023-09-13 14:52 | US_ITS ---
PROCEDURE INFORMATION: Exam: US Left Breast, Complete Exam date and time: 09/13/2023 3:52 PM Age: 73 years old Clinical indication: Breast pain; Left; Additional info: Check up on breast implants -- pain in lt breast after mamm TECHNIQUE: Imaging protocol: Complete ultrasound of all four quadrants of the left breast and the retroareolar regions, including ultrasound of the axilla when performed. COMPARISON: No relevant prior studies available. FINDINGS: Breast: In the upper inner implant capsule, there is possible 2 cm extrusion of silicone, suggesting possible intracapsular rupture The visualized portions of the implant capsule appear to be intact the with no obvious secondary signs of rupture No axillary adenopathy. IMPRESSION: In the upper inner implant capsule, approximately 11 o'clock, there is possible 2 cm extrusion of silicone, suggesting possible intracapsular rupture Ultrasound is relatively insensitive in detection of implant rupture Given the clinical history of suspected implant rupture, definitive characterization with breast MRI is recommended ASSESSMENT: BI-RADS category 2: Benign
== END ==
LOC: RAD 14:46
PROVIDERS: PCP Family Medicine; Visit Provider Family Medicine
DX: Z98.82 Breast implant status (principal); N64.4 Mastodynia; N64.89 Other specified disorders of breast
CPT/HCPCS: 76641

== ENCOUNTER 2023-10-09 15:14 | Outpatient (CLI) | payer MEDICARE, OTHER, SELFPAY ==
--- NOTE | 2023-10-09 15:21 | MR_ITS ---
FINAL REPORT CLINICAL HISTORY: HISTORY OF BACK SURGERY. BACK SPASMS. BLATERAL LEG PAIN. FINDINGS: Multiplanar MR imaging of the lumbar spine was performed without contrast. On the sagittal T2-weighted images, disc degeneration is seen at multiple levels. Postoperative changes are seen from fusion at L4-5. There is 5 mm of anterolisthesis of L4 on L5. Endplate changes are seen at multiple levels. There is no evidence of fracture. No bony mass is identified. The conus has an unremarkable appearance. A cyst is seen in the upper spinal canal. T11-12: An annular bulge is present with vertebral osteophytes and bilateral facet arthropathy. There is mild neural foraminal narrowing. T12-L1: An annular bulge is present with vertebral osteophytes and bilateral facet arthropathy. There is mild neural foraminal narrowing. L1-2: An annular bulge is present. Vertebral osteophytes are present. There is mild bilateral neural foraminal narrowing. L2-3: An annular bulge is present. Vertebral osteophytes and bilateral facet arthropathy are present. Moderate right and mild left neural foraminal narrowing is seen. L3-4: An annular bulge is present. Vertebral osteophytes and bilateral facet arthropathy are present. There is severe bilateral neural foraminal narrowing and bilateral lateral recess stenosis. There is moderate central canal stenosis with an AP diameter of the thecal sac of 5 mm. L4-5: Postoperative changes are seen from fusion. Moderate right neural foraminal narrowing is noted. L5-S1: There is partial sacralization of L5. No significant neural foraminal narrowing is seen. IMPRESSION: Postoperative changes from fusion at L4-5. Multilevel degenerative disc disease and spondylosis with bilateral neural foraminal narrowing as described. Moderate central canal stenosis at L3-4. Authenticated and [facility]
== END 2023-10-09 23:59 ==
LOC: RAD 15:16
PROVIDERS: PCP Family Medicine; Visit Provider Family Medicine
DX: M54.50 Low back pain, unspecified (principal); Z98.890 Other specified postprocedural states
CPT/HCPCS: 72148; 76376

== ENCOUNTER 2023-12-13 17:00 | Outpatient (RCR) | payer MEDICARE, OTHER, SELFPAY | END 2023-12-13 18:45 | disposition home or self-care (01) | LOC: PT 17:00 | PROVIDERS: Visit Provider Physician Assistant | DX: M76.31 Iliotibial band syndrome, right leg (principal) | CPT/HCPCS: 97010; 97014; 97110; 97163; 97164; 97530; G0283 ==

== ENCOUNTER 2023-12-18 14:06 | Outpatient (CLI) | payer MEDICARE, OTHER, SELFPAY ==
--- NOTE | 2023-12-18 | CA_ITS ---
APPROVED REPORT EXAM: Comprehensive 2D, Doppler, and color-flow Echocardiogram Paper Tube Cutter: Olga Arias RT(R) Ht: 5 ft 6 in Wt: 167lbs BSA: 1.85 BP: 125/79 mmHg Indications: abn CCTA, DD, palpitations, murmur, HTN 2D Dimensions LA Volume 32.80 mL LA Volume Index 17.73 mL/m2 (M/F) 16-34 EF AP4 63.20 % GL Strain -24.2 % M-Mode Dimensions RVDd 2.05 cm (0.9-2.6) LA Diam 2.78 cm (1.9-4.0) LVDd 3.17 cm (3.5-5.7) LVDs 2.29 cm (3.5-5.7) IVSd 0.76 cm (0.6-1.1) PWd 0.80 cm (0.6-1.1) EF (Teich) 55.30% FS 27.80% EDV (Teich) 40.00 mL ESV (Teich) 17.90 mL LV Diastology E Decel Time 220 (160-240 msec) E/A Ratio 0.9 Aortic Valve JEOVANNY Index 1.71 cm2/m2 AoV Peak Hermilo. 132.0 (50-130 cm/s) AO Peak GR. 7.00 mmHg AO Mean GR. 3.50 (<5 mmHg) AO VTI 22.3 (18-25 cm) JEOVANNY (VTI) 3.24 (2.5-4.5 cm2) Mitral Valve MV E Max Hermilo. 88.0 (40-130 cm/s) MV A Velocity 101.0 (40-130 cm/s) E/A Ratio 0.88 MV PHT 64.0 ms Left Ventricle The left ventricle is normal size. The left ventricular systolic function is normal. The left ventricular ejection fraction is within the normal range. There is normal left ventricular wall thickness. There is normal LV segmental wall motion. The left ventricular diastolic function is normal. LVEF is 60%. Right Ventricle The right ventricle is normal size. The right ventricular systolic function is normal. Atria The left atrium size is normal. The right atrium size is normal. There is no Doppler evidence of interatrial shunt. Aortic Valve The aortic valve is mildly thickened. There is no aortic valvular stenosis. No aortic regurgitation is present. Mitral Valve The mitral valve is normal in structure. No evidence of mitral valve stenosis. There is no mitral valve regurgitation noted. Tricuspid Valve The tricuspid valve leaflets are thin and pliable. Trace tricuspid regurgitation. There is insufficient TR jet to estimate RVSP. Pulmonic Valve The pulmonary valve is normal in structure. Trace pulmonic regurgitation. Great Vessels The aortic root is normal in size. The ascending aorta is normal in size. IVC is normal in size and collapses >50% with inspiration. Pericardium There is no pericardial effusion. Other Information Study Quality: Fair Conclusion Normal biventricular systolic function. No significant valvular stenosis or regurgitation. Electronically signed by : eYlitza Huitron MD 12/22/2023 23:09:00
== END 2023-12-18 23:59 ==
PROVIDERS: PCP Family Medicine; Visit Provider Family Medicine
DX: I35.8 Other nonrheumatic aortic valve disorders (principal)
CPT/HCPCS: 93306

== ENCOUNTER 2023-12-27 08:51 | Outpatient (CLI) | payer MEDICARE, OTHER, SELFPAY ==
--- NOTE | 2023-12-27 08:57 | CA_ITS ---
FINAL REPORT TECHNIQUE: Color Doppler, duplex Doppler and compression sonography of the left lower extremity deep venous systems was performed. CLINICAL HISTORY: HTN, HLD, edema LLE x 3 days. No known trauma. Sits A lot at work for long periods. FINDINGS: There is no evidence of deep venous thrombosis from the level of the groin to the calf. The veins are patent and compressible. IMPRESSION: No evidence of deep venous thrombosis left lower extremity. Reviewed, Interpreted and Dictated by Janak Molina III, MD Transcribed by Paz Martinez Authenticated and . [facility]
== END 2023-12-27 23:59 ==
LOC: RT 08:52
PROVIDERS: PCP Family Medicine; Visit Provider Family Medicine
DX: R60.0 Localized edema (principal); R23.0 Cyanosis
CPT/HCPCS: 93971

== ENCOUNTER 2023-12-27 17:00 | Outpatient (RCR) | payer MEDICARE, OTHER, SELFPAY | END 2023-12-27 17:05 | disposition home or self-care (01) | LOC: PT 17:00 | PROVIDERS: Visit Provider Neurological Surgery | DX: M54.50 Low back pain, unspecified (principal); M54.16 Radiculopathy, lumbar region | CPT/HCPCS: 20561; 97010; 97014; 97110; 97112; 97163; 97530; G0283 ==

== ENCOUNTER 2024-01-01 10:40 | Outpatient (CLI) | payer MEDICARE, OTHER, SELFPAY ==
--- NOTE | 2024-01-01 10:43 | US_ITS ---
FINAL REPORT CLINICAL HISTORY: Extremity cyanosis, Pedal edema COMPARISON: None FINDINGS: LOWER EXTREMITY SEGMENTAL PRESSURE MEASUREMENTS FINDINGS: Pressure indices are as follows: RIGHT LOWER EXTREMITY: Ankle-brachial index: 1.13 LEFT LOWER EXTREMITY: Ankle-brachial index: 1.21 IMPRESSION: Ankle-brachial indices within normal limits. Reviewed, Interpreted and Dictated by Janak Molina III, MD Transcribed by Deborah Mantilla Authenticated and [facility]
== END 2024-01-01 23:59 | disposition home or self-care (01) ==
LOC: RT 10:40
PROVIDERS: PCP Family Medicine; Visit Provider Family Medicine
DX: R23.0 Cyanosis (principal); R60.0 Localized edema; R09.89 Other specified symptoms and signs involving the circulatory and respiratory systems
CPT/HCPCS: 93923

== ENCOUNTER 2024-03-19 14:04 | Emergency (ER) | payer MEDICARE, OTHER, SELFPAY ==
[2024-03-19 14:25] VITALS: BP 121/68; PULSE 84; RESP 21; TEMP 36.5; O2SAT 93; BMI 27.2
--- NOTE | 2024-03-19 14:29 | XR_ITS ---
FINAL REPORT TECHNIQUE: Two views CLINICAL HISTORY: cough x 1 day COMPARISON: 03/13/2023 FINDINGS: No acute pulmonary density is present. Mediastinal contour is normal. Heart size is stable. IMPRESSION: Stable chest exam without acute disease Authenticated and ERN
--- NOTE | 2024-03-19 14:45 | EXP.UTC ---
Discharge Plan Disposition Patient Disposition: Home, Self-Care Condition: Good Prescriptions Prescriptions: New azithromycin 250 mg tablet See Rx Instructions .ROUTE .COMPLEX Qty: 6 0RF Rx Instructions: For 250 mg dose pack: take 500 mg today (day 1), then 250 mg for 4 days (days 2-5). Do not take cholesterol medication while taking this medication. methylprednisolone [Medrol (Talha)] 4 mg tablets,dose pack See Rx Instructions .ROUTE .COMPLEX 6 Days Qty: 21 0RF Rx Instructions: 4 mg orally ;Medrol dose taper talha benzonatate 100 mg capsule 100 mg PO TID PRN (Reason: cough) Qty: 30 0RF No Action losartan 50 mg tablet 50 mg PO DAILY Patient Comments: TAKE 1/2 (ONE-HALF) TABLET BY MOUTH ONCE DAILY potassium chloride 10 mEq tablet extended release 10 meq PO DAILY Patient Comments: TAKE 1 TABLET BY MOUTH TWICE DAILY minoxidil 2.5 mg tablet 2.5 mg PO DAILY Patient Comments: TAKE 1/2 (ONE-HALF) TABLET BY MOUTH ONCE DAILY triamterene-hydrochlorothiazid 37.5-25 mg tablet 1 tab PO DAILY Patient Comments: TAKE 1 TABLET BY MOUTH ONCE DAILY dutasteride 0.5 mg capsule 0.5 mg PO DAILY Patient Comments: TAKE 1 CAPSULE BY MOUTH ONCE DAILY rosuvastatin 10 mg tablet 10 mg PO DAILY Patient Comments: TAKE 1 TABLET BY MOUTH ON SATURDAY, SATURDAY AND SATURDAY Gemtesa 75 mg Tablet 75 mg PO DAILY Referrals Follow up/Referrals: Shelby Angeles MD [Primary Care Provider] - See instructions Activity Restrictions/Add. Instructions Additional Instructions/Restrictions: Take medication as prescribed. Increase fluids and rest. Follow up with PCP. If you become increasing SOA, go to the ER. Clinical Impressions Clinical Impression: Acute lower respiratory tract infection Instructions Patient Instructions: Acute Bronchitis Discharge ED Provider: Juliana Huynh [facility] General Stated complaint: congestion, cough, diarrhea Mode of Arrival: Ambulatory Source of Information: Patient Limitations: No Limitations Time Seen by Provider: 03/19/24 14:20 Description of Symptoms (Recalled from Triage Doc. by RN): PATIENT C/O CONGESTION, COUGH, HEADACHE, AND DIARRHEA THAT STARTED YESTERDAY HEENT Symptoms (Recalled from RN notes): Yes Resp Symptoms (Recalled from RN notes): Yes Skin Symptoms (Recalled from RN notes): No MS Symptoms (Recalled from RN notes): No Functional Status (Recalled from RN notes): WNL History of Present Illness Provider Complaint: Pt reports that she has a long history of allergies and thought that maybe she was just having an allergy flare, but then yesterday her cough became worse and she had a ocular migraine, diarrhea, and congestion. She reports that her sats at home dropped to 92-93 and she used her inhaler. Pt reports that she was at a baseball game over the weekend. Related Data Home Medications Medication Instructions Recorded Confirmed dutasteride 0.5 mg capsule 0.5 mg PO DAILY 03/19/24 03/19/24 losartan 50 mg tablet 50 mg PO DAILY 03/19/24 03/19/24 minoxidil 2.5 mg tablet 2.5 mg PO DAILY 03/19/24 03/19/24 potassium chloride 10 mEq 10 meq PO DAILY 03/19/24 03/19/24 tablet,extended release rosuvastatin 10 mg tablet 10 mg PO DAILY 03/19/24 03/19/24 triamterene 37.5 1 tab PO DAILY 03/19/24 03/19/24 mg-hydrochlorothiazide 25 mg tablet vibegron 75 mg tablet (Gemtesa) 75 mg PO DAILY 03/19/24 03/19/24 Previous Rx's Medication Instructions Recorded azithromycin 250 mg tablet See Rx Instructions PO .COMPLEX #6 03/19/24 tabs benzonatate 100 mg capsule 100 mg PO TID PRN cough #30 caps 03/19/24 methylprednisolone 4 mg tablets in See Rx Instructions .Route 03/19/24 a dose pack (Medrol (Talha)) .COMPLEX 6 days #21 tabs Allergies Allergy/AdvReac Type Severity Reaction Status Date / Time lysol Allergy Intermediate Uncoded 11/11/23 08:51 Worker's Comp Is this a Worker's Comp case?: No [facility] Disclaimer: The information contained in this section may have been updated after the patient was seen, as this information can be updated by other users. Medical History (Updated 03/19/24 @ 15:19 by Juliana Huynh APRN) Cancer Urinary tract infection Kidney stone Hyperlipidemia Hypertension History of colon cancer Cataract Hearing loss, bilateral Tinnitus, bilateral Bilateral impacted cerumen Coronary artery calcification seen on CAT scan Former smoker Palpitations Diastolic dysfunction Abnormal echocardiogram Surgical History Hx of tonsillectomy H/O colonoscopy H/O hemicolectomy S/P hip replacement Family History Other Family history of coronary artery disease Social History Smoking Status: Never smoker alcohol intake: never counseling provided: provider counseling substance use type: denies use current occupational status: other Travel in the last 8 weeks: None household members: none housing: house current occupation: [email or web address] current occupational exposures/hazards: No caffeine: Yes ROS Obtained: Yes All systems reviewed & no additional complaints except as documented Constitutional Constitutional: Reports system reviewed and no additional complaints, except as documented, Reports headache(s) and Reports malaise Eyes Eyes: Reports system reviewed and no additional complaints, except as documented ENT Ears, Nose, Mouth, and Throat: Reports system reviewed and no additional complaints, except as documented, Reports headache(s), Reports nasal congestion, Reports nasal discharge and Reports sinus pressure Cardiovascular Cardiovascular: Reports system reviewed and no additional complaints, except as documented Gastrointestinal Gastrointestingal: Reports system reviewed and no additional complaints, except as documented and loose stools Genitourinary Female Genitourinary: Reports system reviewed and no additional complaints, except as documented Musculoskeletal Musculoskeletal: Reports system reviewed and no additional complaints, except as documented Integumentary/Breasts Skin/Breast: Reports system reviewed and no additional complaints, except as documented Neurologic Neurologic: Reports system reviewed and no additional complaints, except as documented and Reports headache(s) Endocrine Endocrine: Reports system reviewed and no additional complaints, except as documented Hematologic/Lymphatic Henatologic/Lymphatic: Reports system reviewed and no additional complaints, except as documented Allergic/Immunologic Allergic/Immunologic: Reports system reviewed and no additional complaints, except as documented Physical Exam General General appearance: alert Comment: ill appearing Head Head exam: atraumatic and normocephalic Eye Eye exam: Present normal appearance ENT ENT exam: Present mucous membranes moist Expanded ENT Exam External ear exam: Present normal external inspection Nose exam: Present sinus tenderness Nasal speculum exam: Bilateral: other (clear drainage) Mouth exam: Present normal external inspection Teeth exam: Present normal inspection Throat exam: Present normal inspection Neck Neck exam: Present normal inspection; Absent lymphadenopathy Chest Chest inspection: Present normal inspection and symmetric chest wall rise Respiratory Respiratory exam: Present other Expanded Respiratory Exam Location: Left: decreased breath sounds, Right: decreased breath sounds and Lower: decreased breath sounds Cardiovascular Cardiovascular exam: Present regular rate and normal rhythm Abdominal Exam Abdominal exam: Present soft and normal bowel sounds Extremities Exam Extremities exam: Present normal inspection Back Exam Back exam: Present normal inspection Neurological Exam Neurological exam: Present alert and oriented X3 Psychiatric Psychiatric exam: Present normal affect and normal mood Skin Skin exam: Present warm, dry and intact Lymphatic Lymphatic Findings: no adenopathy Medical Decision Making James Inquiry Pt receiving controlled substance: No James was queried for this patient: No Vital Signs: 03/19/24 14:25 Temperature 97.7 F Temperature Source Oral Pulse Rate [Left Brachial] 84 Respiratory Rate 21 Blood Pressure [Left Arm] 121/68 Blood Pressure Mean [Left Arm] 85 Blood Pressure Source [Left Arm] Automatic Cuff Blood Pressure Position [Left Arm] Sitting 02 Sat by Pulse Oximetry 93 L Oxygen Delivery Method Room Air Orders (Tests/Meds): ORDERS Category Date Time Status Chest XR 2 view (NOT portable) [XR chest 2V] Stat Exams 03/19/24 14:29 Ordered Radiology Data #1: Image(s): Chest Image Reviewed: Yes I reviewed the patient's radiology results and Yes I have reviewed radiologist's interpretation FINDINGS: No acute pulmonary density is present. Mediastinal contour is normal. Heart size is stable. IMPRESSION: Stable chest exam without acute disease
[2024-03-19 14:56] LABS: Influenza A, PCR Not Detected (NotDetected); Influenza B, PCR Not Detected (NotDetected)
[2024-03-19 15:25] VITALS: BP 121/68; PULSE 84; RESP 21; TEMP 36.5; O2SAT 93
[2024-03-19 15:36] LABS: Coronavirus 19, PCR Detected (NotDetected)
== END 2024-03-19 15:28 | disposition home or self-care (01) ==
PROVIDERS: Emergency Provider Nurse Practitioner Family; PCP Family Medicine
DX: U07.1 COVID-19 (principal); R51.9 Headache, unspecified; R05.9 Cough, unspecified; R09.81 Nasal congestion; R19.7 Diarrhea, unspecified
CPT/HCPCS: 71046; 87636; 99212; 99214; G0463

== ENCOUNTER 2024-06-24 14:30 | Outpatient (CLI) | payer MEDICARE, OTHER, SELFPAY | END 2024-06-24 23:59 | disposition home or self-care (01) | LOC: LAB.DROPOF 06-25 14:08 | PROVIDERS: PCP Nurse Practitioner; Visit Provider Nurse Practitioner | DX: B35.1 Tinea unguium (principal); L60.3 Nail dystrophy; L84 Corns and callosities | CPT/HCPCS: 87102; 87206; 87220 ==

== ENCOUNTER 2024-08-19 13:55 | Outpatient (CLI) | payer MEDICARE, OTHER, SELFPAY ==
[2024-08-19 14:46] LABS: Blood Urea Nitrogen 13 mg/dl (7-17); Estimated Glomerular Filt Rate 82 ml/min (>60); GFR (African American) 99 ML/MIN (>60)
== END 2024-08-19 23:59 | disposition home or self-care (01) ==
LOC: LAB 13:57
PROVIDERS: PCP Family Medicine; Visit Provider Family Medicine
DX: I10 Essential (primary) hypertension (principal); Z87.891 Personal history of nicotine dependence
CPT/HCPCS: 36415; 82565; 84520

== ENCOUNTER 2024-08-24 08:58 | Outpatient (CLI) | payer MEDICARE, OTHER, SELFPAY ==
--- NOTE | 2024-08-24 | CT_ITS ---
FINAL REPORT TECHNIQUE: The patient was injected with IV contrast. Axial images were obtained of the chest by computed tomography. Precontrast images were also obtained. Reconstructed images were obtained and reviewed. This study was performed with techniques to keep radiation doses as low as reasonably achievable (ALARA). Individualized dose reduction techniques using automated exposure control or adjustment of mA and/or kV according to the patient's size were employed. CLINICAL HISTORY: PRESISTENT COUGH COMPARISON: None FINDINGS: CT OF THE CHEST WITH AND WITHOUT CONTRAST: There is no axillary adenopathy. There are small mediastinal nodes. No mediastinal mass or adenopathy is noted. Bilateral breast implants are present with bilateral extracapsular rupture. Heart size is normal. There is no pericardial or pleural effusion identified. There is no suspicious pulmonary nodule identified. There is mild emphysema and mild scarring. Diffuse bronchial wall thickening is consistent with bronchitis. Limited images of the upper abdomen demonstrate no acute findings. IMPRESSION: Bronchitis. Bilateral extracapsular rupture of breast implants. Reviewed, Interpreted and Dictated by Janak Molina III, MD Transcribed by Bonnie Ward Authenticated and [facility]
[2024-08-24] MEDS: IOPAMIDOL-370 (76%);100ML BOTTLE 75 ML IV (09:22)
== END 2024-08-24 23:59 | disposition home or self-care (01) ==
LOC: RAD 08:58
PROVIDERS: PCP Family Medicine; Visit Provider Family Medicine
DX: R05.3 Chronic cough (principal)
CPT/HCPCS: 71270; Q9967

== ENCOUNTER 2024-09-22 10:39 | Outpatient (CLI) | payer MEDICARE, OTHER, SELFPAY ==
[2024-09-22 10:57] LABS: Basophils # 0.1 K/mm3 (0-0.2); Basophils % 0.8 % (0.1-2.0); Eosinophils # 0.8 K/mm3 (0.0-0.4); Eosinophils % 7.6 % (0.1-12.0); Hematocrit 36.7 % (37.0-47.0); Hemoglobin 12.2 g/dL (12.2-16.2); Lymphocytes # 2.8 K/mm3 (0.7-4.5); Lymphocytes % 28.3 % (10-50); Mean Corpuscular HGB Conc 33.2 g/dL (31.8-35.4); Mean Corpuscular Hemoglobin 30.5 pg (27.0-31.2); Mean Corpuscular Volume 91.8 fl (81-99); Monocytes # 0.6 K/mm3 (0.1-1.0); Monocytes % 5.7 % (1.7-9.3); Neutrophils # 5.8 K/mm3 (1.8-7.8); Neutrophils % 57.4 % (37.0-80.0); Platelet Count 322 K/mm3 (142-424); Red Cell Distribution Width 12.7 % (11.5-17.5)
[2024-09-22 11:56] LABS: Alanine Aminotransferase 24 U/L (12-78); Albumin/Globulin Ratio 1.7 (1.1-1.8); Alkaline Phosphatase 91 U/L (38-126); Anion Gap 9.8 mEq/L (5-15); Aspartate Amino Transferase 36 U/L (14-36); Bilirubin,Total 0.5 mg/dl (0.2-1.3); Blood Urea Nitrogen 24 mg/dl (7-17); Calcium 9.6 mg/dl (8.4-10.2); Carbon Dioxide 29 mmol/L (22.0-30.0); Chloride 104 mmol/L (98-107); Estimated Glomerular Filt Rate 70 ml/min (>60); GFR (African American) 85 ML/MIN (>60); Globulin 2.3 g/dL (1.3-3.2); Glucose 82 mg/dl (74-100); Potassium 3.8 mmoL/L (3.5-5.1); Sodium 139 mmol/L (136-145); Total Protein,Serum 6.3 g/dl (6.3-8.2)
== END 2024-09-22 23:59 | disposition home or self-care (01) ==
LOC: LAB 10:40
PROVIDERS: PCP Family Medicine; Visit Provider Family Medicine
DX: I10 Essential (primary) hypertension (principal); Z87.891 Personal history of nicotine dependence
CPT/HCPCS: 36415; 80053; 85025

== ENCOUNTER 2024-09-22 17:00 | Outpatient (RCR) | payer MEDICARE, OTHER, SELFPAY | END 2024-09-22 23:59 | disposition home or self-care (01) | LOC: PT 17:00 | PROVIDERS: Visit Provider Physician Assistant | DX: M25.562 Pain in left knee (principal) | CPT/HCPCS: 97010; 97014; 97110; 97112; 97140; 97163; 97164; 97530; G0283 ==

== ENCOUNTER 2025-01-19 07:07 | Outpatient (CLI) | payer MEDICARE, OTHER, SELFPAY ==
--- NOTE | 2025-01-19 07:12 | US_ITS ---
FINAL REPORT CLINICAL HISTORY: RUQ PAIN COMPARISON: None FINDINGS: Sonographic images of the right upper quadrant were obtained. The pancreas is partially obscured. There is fatty infiltration of the liver. There is a large amount of sludge and stones in the gallbladder. The stones measure up to 2.3 cm. There is no evidence of biliary ductal dilatation.The common duct measures 4mm. There is prominence of the right renal collecting system. IMPRESSION: Fatty liver. Sludge and stones in the gallbladder as above Reviewed, Interpreted and Dictated by Juan Manuel Ramos MD Transcribed by Bonnie Ward Authenticated and [facility]
== END 2025-01-19 23:59 | disposition home or self-care (01) ==
LOC: RAD 07:09
PROVIDERS: PCP Family Medicine; Visit Provider Family Medicine
DX: R10.13 Epigastric pain (principal)
CPT/HCPCS: 76705

== ENCOUNTER 2025-02-24 15:40 | Outpatient (CLI) | payer MEDICARE, OTHER, SELFPAY ==
[2025-02-24 16:15] LABS: Blood Urea Nitrogen 19 mg/dl (7-17); Estimated Glomerular Filt Rate 61 ml/min (>60); GFR (African American) 74 ML/MIN (>60)
== END 2025-02-24 23:59 | disposition home or self-care (01) ==
LOC: LAB 15:42
PROVIDERS: PCP Family Medicine; Visit Provider Nurse Practitioner Family
DX: R69 Illness, unspecified (principal)
CPT/HCPCS: 36415; 82565; 84520

== ENCOUNTER 2025-03-01 12:43 | Outpatient (CLI) | payer MEDICARE, OTHER, SELFPAY ==
--- OUTSIDE RECORDS SUMMARY | 2024-11-23 12:15 | XMS_ITS ---
Author Organization [facility] Address [address] [facility] [address] [place] [phone] Care Team Providers Care Log Cutter Name Role Phone Kathryn Angeles Primary Care [...] BY MOUTH ON SATURDAY, SATURDAY AND SATURDAY for 138 days Active Aspirin Low Dose 81 MG 1 tablet Orally O nce a day 12/26/2023 Active Align 4 MG 1 cap(s) orally once a day for 28 day(s) 12/24/2022 Active Losartan Potassium 50 MG Take 1/2 (one-h rosalee) tablet by mouth once daily for 90 days Active Triamterene-HCTZ 37.5-25 MG 1 tab(s) ora lly once a day for 90 days Active Dutasteride 0.5 MG 1 capsule Orally Onc e a day for 30 day(s) Active Potassium Chloride ER 10 MEQ Take 1 tablet by mouth twice daily for 30 days for 30 days Active CoQ-10 100 MG 1 cap(s) orally once a day for 30 day(s) 05/27/2020 Active Gemtesa 75 MG 1 tablet Orally Once a day for 30 day(s) Active Advair Diskus 100-50 MCG/ACT 1 puff Inhalation Twice a day 08/06/2024 Active Diclofenac Sodium ER 100 MG 1 tablet as needed Orally Once a day for 30 days Active Albuterol Sulfate HFA 108 (90 Base) MCG/ACT 1 puff as needed Inhalation four times a day as needed Active Vital Signs Blood pressure systolic 124 mm Hg 11/24/19 25 Blood pressure diastolic 70 mm Hg 025 Heart Rate 69 /min 11/23/2024 Height 66 in 11/23/2024 Weight 162.0 lbs 11/23/2024 BMI 26.14 kg/m2 11/23/2024 Encounters Encounter Location Date Provider Diagnosis [facility] [address] [facility] [address] [facility] [address] [place] [phone] 11/23/2024 Kathryn Angeles Hair loss L65.9 and [...] 4 Months, Reason: Provider Name:Kathryn Pennington er, 03/29/2025 04:15:00 PM, [address] [facility] [address] [facility], [address], [place], [phone], Progress Notes * SOHAN NUÑEZCLARICEB:[birth year] (74 yo F)Acc No.[id number]:11/23/2024 Progress Notes Patient: BAMBI ROCHE Provider: Kathryn Angeles M.D. :1950 A ge:74 Y S ex:Female Date:11/23/2024 Address:[address] [place], [id number] Subjective: * Chief Complaints: * [...] 09/10/2019. * Hospitalization/Major Diagno stic Procedure: k tressa stone 02/2011, [facility] ER-fall 06/06. * Family History: F ather: . M other: . 1 sister(s) . . * Social History: C URRENT TOBACCO USE S moking Status: Patient does NOT smoke, Second hand smoke exposure: No. H ome smoke detector use: yes. Marital Status: Single, spouse is . Occupation: Works at [employer]. Past smoking status: no, 2003, quit smoking. Occup. exposure: She saw the Beatles twice! She saw Laith Mayorga! Also Alissa Jones and Curtis Briceno! Her favorite concert was Revl Reilly.. * Medications: T dionisio Dutasteride 0.5 MG [...] G eneral Examination: General Appearance: N AD. HEENT: u nremarkable. Oral cavity: n o lesions, mucosa moist and WNL, no erythema. Neck: i mproved ROM but some discomfort. . Chest: n ormal shape and expansion. Heart: R SR. Lungs: n o rhonchi, no wheezes heard, decreased breath sounds. Neurologic Exam: I ntact, gait normal. Skin: n ormal, no rash. Peripheral pulses: n ormal . Extremities: t race l eg edema. Assessment: * Assessment: 1. H air loss - L65.9 (Primary) 2 . E ssential hypertension - I10 ? Plan: * Treatment: * Procedure Codes: G 2211 Complex e/m visit add on, 3074F SYST BP LT 130 MM HG, 3078F DIAST BP < 80 MM HG * Follow Up: 4 Months * Billing Information: * Visit Code: 52873 Office Visit, Est Pt., Level 3. * Procedure Codes: G2211 Complex e/m visit add on. 3074F SYST BP LT 130 MM HG. 3078F DIAST BP < 80 MM HG. * Electronic signature of Kathryn Angeles MD on 03/01/2025 at 12:47 PM EDT Sign off status: Pending * Provider: Kathryn Angeles M.D. Date: 0 11/23/2024 Generated for Kasey ovalles/Ghanshyam/Naseemitting on: 0 03/01/2025 12:47 PM EDT History and Physical Notes * HPI (History [...]
--- OUTSIDE RECORDS SUMMARY | 2025-01-14 11:30 | XMS_ITS ---
Author Organization [facility] Address [address] [place] [id number] Care Team Providers Care Assessment Services Manager Name Role Phone Kathryn Angeles Primary Care Provider [phone] Allergies Allergen (clinical drug ingredient) Drug/Non Drug Allergy documented on EMR Reaction Allergy Type Onset Date Status nickel HUGO (uncoded) Unknown Allergy Act tamar Polypropylene glycol POLYPROPYLENE GLYCO L (uncoded) Unknown Allergy Active Levaquin Myalgias Drug Allergy Active Retinoic Acid Unknown Drug Allergy Act tamar Results Component Value Reference Range Notes CBC Fingerstick (in house) Reviewed date:01/15/2025 08:37:04 AM Interpretation: Performing Lab: Notes/Report: wbc 11.4 3.5 - 10 lym 22.8% 15 - 50 mid 6.0% 2 - 15 gran 71.2 35 - 80 rbc 4.18 3.5 - 5.5 hgb 12.5 11.5 - 16.5 hct 37.6 35 - 55 mcv 90.0 75 - 100 mch 30.0 25 - 35 mchc 33.4 31 - 38 plat 309 100 - 400 P-Comprehensive Metabolic Pa macario (CMP) Reviewed date:02/05/2025 01:15:25 PM Interpretation:alk phos 124 Performing Lab: Notes/Report: Test performed by [employer] [facility] , [address], [place] [address] Rafi Forbes MD, Toll Bridge Attendant CLIA: [id number] Sodium 140 135-145 mmol/L Potassium 4.2 3.5-5.3 mmol/L Chloride 104 97-108 mmol/L CO2 23 22-32 mmol/L Glucose 99 65-99 mg/dL BUN 21 8-23 mg/dL Creatinine 0.84 0.50-1.00 mg/dL Calcium 10.1 8.6-10.4 mg/dL eGFR by Creatinine 72 >59 mL/min/1.73m2 Protein 6.6 6.0-8.3 g/dL Albumin 4.2 3.5-5.3 g/dL Alkaline Phosphatase 124 35-121 IU/L ALT (SGPT) 19 <5-47 IU/L AST (SGOT) 21 <5-40 IU/L Bilirubin, Total <0.2 <0.2-1.2 mg/dL A/G Ratio 1.8 1.1-2.5 P-Lipase Reviewed date:02/05/2025 01:15:25 PM Interpretation:Normal Performing Lab: Notes/Report: Test performed by [employer] [address] , [address], [place] [address] Rafi Forbes MD, Toll Bridge Attendant CLIA: [id number] Lipase 25.6 13.0-60.0 u/L Ultrasound : Right [place] Reviewed date:02/05/2025 01:15:25 PM Interpretation:fatty liver, sludge and stones Performing Lab: Notes/Report: fatty liver, sludge and stones REASON FOR VISIT stomach issues Medications Medication SIG (Take, Route, Frequency, Duration) Notes Start Date End Date Status Advair Diskus 100-50 MCG/ACT 1 puff Inhalation Twice a day 08/06/2024 Active Albuterol Sulfate HFA 108 (90 Base) MCG/ACT 1 puff as needed Inhalation four times a day as needed Active Triamterene-HCTZ 37.5-25 MG Take 1 table t by mouth once daily for 90 Active Diclofenac Sodium ER 100 MG TAKE 1 TABLE T BY MOUTH NEEDED ONCE DAILY for 90 Active Potassium Chloride ER 10 MEQ Take 1 tablet by mouth twice daily for 30 Active CoQ-10 100 MG 1 cap(s) orally once a day for 30 day(s) 05/27/2020 Active Align 4 MG 1 cap(s) orally once a day for 28 day(s) 12/24/2022 Active Aspirin Low Dose 81 MG 1 tablet Orally O nce a day 12/26/2023 Active Losartan Potassium 50 MG Take 1/2 (one-h rosalee) tablet by mouth once daily for 90 days Active Rosuvastatin Calcium 10 MG TAKE 1 TABLET BY MOUTH ON SATURDAY, SATURDAY AND SATURDAY for 138 days Active Dutasteride 0.5 MG 1 capsule Orally Onc e a day for 30 day(s) Active Gemtesa 75 MG 1 tablet Orally Once a day for 30 day(s) Active Konsyl Daily Fiber 100 % 1 packet with 8 ounces of liquid as needed Orally Once a day for 30 day(s) 01/14/2025 Active Vital Signs Blood pressure systolic 116 mm Hg 01/15/20 25 Blood pressure diastolic 70 mm Hg 025 Heart Rate 77 /min 01/14/2025 Height 66 in 01/14/2025 Weight 158.8 lbs 01/14/2025 BMI 25.63 kg/m2 01/14/2025 Encounters Encounter Location Date Provider Diagnosis [facility] [address] [facility] [address] [facility] [address] [place], [place] [id number] 01/14/2025 Kathryn Angeles Dyspepsia R10.13 ; Centrilobular emphysema J43.2 and BMI 25.0-25.9,adult Z68.25 Assessments Encounter Date Diagnosis (ICD Code) Assessment Notes Treatment Notes Treatment Clinical Notes Section Notes 01/14/2025 Dyspepsia (ICD-10 - R10.13) Recommend Align Probiotic daily 01/14/2025 Centrilobular emphysema (ICD-10 - J43.2) 01/14/2025 BMI 25.0-25.9,adult (ICD-10 - Z68.25) Plan Of Treatment Medication Medication Name Sig Start Date Stop Date Notes Konsyl Daily Fiber 100 % 1 packet with 8 ounces of liquid as needed Orally Once a day for 30 day(s) 01/14/2025 Treatment Notes Assessment Notes Dyspepsia Recommend Align Prob iotic daily Next Appt Details Follow Up: 3 Weeks, Reason: Provider Name:Kathryn Pennington er, 03/29/2025 04:15:00 PM, [address] [facility], [address], [place], [phone], Progress Notes * DANDRE NUÑEZ:[birth year] (74 yo F)Acc No.[id number]:01/14/2025 Progress Notes Patient: BAMBI ROCHE Provider: Kathryn Angeles M.D. :1950 A ge:74 Y S ex:Female Date:01/14/2025 Address:[facility] [address], [place], [id number] Subjective: * Chief Complaints: * S tomach issues * HPI: G astroenterology: The pt states she has a lot of growling in her abdomen after eating. Pt states she will sometimes have discomfort. Pt states this has been going on since her last visit on 11/23/24. No pain. Feels bloated. Normal BM's. Weight loss. She thinks her diet has been better. 74 year old female presents with c/o Abdominal Pain a ggravated with food. Denies : Nausea. D enies : Vomiting. D enies : Diarrhea. D enies : Fever. * ROS: D ERMATOLOGY: no R heather. n o H alexey. G ASTROENTEROLOGY: no N ausea. n o V omiting. n o D iarrhea.? U ROLOGY: no D ifficulty urinating. n o B lood in urine. * Medical History: * Surgical History: r hinoplasty cataract (OU) 05/2009hemicolectomy, Colorectal carcinoma, Dr. Jason 12/18/10kidndemetris stone 02/2011eye surgery 01/2012left eye, lesion removed 06/2012ptosis, bilateral eye lids 08/27/12injection single tendon sheath, ligament, aponeurosis 11/2012Total left hip replacement 09/02/2015total right hp replacement 12/08/pinal fusion L4-L5 06/01/16colonoscopy 08/29/17CEA=3.4 (ref 0.0-4.6) 03/17/19Colonoscopy, Dr. Frazier 09/10/2019 * Hospitalization/Major Diagno stic Procedure: hyacinth bustillos stone 02/2011[facility] ER-fall 06/06 * Family History: F ather: . M other: . 1 sister(s) . . * Social History: C URRENT TOBACCO USE S moking Status: Patient does NOT smoke, Second hand smoke exposure: No. H ome smoke detector use: yes. Marital Status: Single, spouse is . Occupation: Works at [employer] no Past smoking status, 2003, quit smoking. Occup. exposure: She saw the Beatles twice! She saw Laith Mayorga! Also Alissa Jones and Curtis Briceno! Her favorite concert was [employer].. * Medications: T akingDutasteride 0.5 MG Capsule 1 capsule Orally Once a dayGemtesa 75 MG Tablet 1 tablet Orally Once a dayCoQ-10 100 MG Capsule 1 cap(s) orally once a dayAlign 4 MG Capsule 1 cap(s) orally once a dayAspirin Low Dose 81 MG Tablet Delayed Release 1 tablet Orally Once a dayLosartan Potassium 50 MG Tablet Take 1/2 (one-half) tablet by mouth once daily Rosuvastatin Calcium 10 MG Tablet TAKE 1 TABLET BY MOUTH ON SATURDAY, SATURDAY AND SATURDAY Advair Diskus 100-50 MCG/ACT Aerosol Powder Breath Activated 1 puff Inhalation Twice a dayAlbuterol Sulfate HFA 108 (90 Base) MCG/ACT Aerosol Solution 1 puff as needed Inhalation four times a day as neededTriamterene-HCTZ 37.5-25 MG Tablet Take 1 tablet by mouth once daily Diclofenac Sodium ER 100 MG Tablet Extended Release 24 Hour TAKE 1 TABLET BY MOUTH NEEDED ONCE DAILY Potassium Chloride ER 10 MEQ Tablet Extended Release Take 1 tablet by mouth twice daily Medication List reviewed and reconciled with the patientTaking Dutasteride 0.5 MG Capsule 1 capsule Orally Once a dayTaking Gemtesa 75 MG Tablet 1 tablet Orally Once a dayTaking CoQ-10 100 MG Capsule 1 cap(s) orally once a dayTaking Align 4 MG Capsule 1 cap(s) orally once a dayTaking Aspirin Low Dose 81 MG Tablet Delayed Release 1 tablet Orally Once a dayTaking Losartan Potassium 50 MG Tablet Take 1/2 (one-half) tablet by mouth once daily Taking Rosuvastatin Calcium 10 MG Tablet TAKE 1 TABLET BY MOUTH ON SATURDAY, SATURDAY AND SATURDAY Taking Advair Diskus 100-50 MCG/ACT Aerosol Powder Breath Activated 1 puff Inhalation Twice a dayTaking Albuterol Sulfate HFA 108 (90 Base) MCG/ACT Aerosol Solution 1 puff as needed Inhalation four times a day as neededTaking Triamterene-HCTZ 37.5-25 MG Tablet Take 1 tablet by mouth once daily Taking Diclofenac Sodium ER 100 MG Tablet Extended Release 24 Hour TAKE 1 TABLET BY MOUTH NEEDED ONCE DAILY Taking Potassium Chloride ER 10 MEQ Tablet Extended Release Take 1 tablet by mouth twice daily Medication List reviewed and reconciled with the patient * Allergies: L evaquin: Myalgias - Side EffectsNICKLE: AllergyPOLYPROPYLENE GLYCOL: AllergyRetinoic Acid: Allergyno[Allergies Verified] Objective: * Vitals: W t: 158.8, Temp: 97.8, BP: 116/70, HR: 77, Nurse: TIM, Ht: 66, BMI:25.63. * Examination: G eneral Examination: General Appearance: N AD. H EENT: u nremarkable.?Oral cavity: n o lesions, mucosa moist and WNL, no erythema. N yong: i mproved ROM but some discomfort. . C hest: n ormal shape and expansion. H eart: R SR. L ungs: n o rhonchi, no wheezes heard, decreased breath sounds. A bdomen: M ild epigastric fullness and some tenderness.. N eurologic Exam: I ntact, gait normal. S kin: normal, no rash. P eripheral pulses: n ormal . E xtremities: t race l eg edema. Assessment: * Assessment: 1. D yspepsia - R10.13 (Primary) 2 . C entrilobular emphysema - J43.2 3 . B MT 25.0-25.9,adult - Z68.25 Plan: * Treatment: Value Reference Range A /G Ratio 1.8 1.1-2.5 - * A lbumin 4.2 3.5-5.3 - g/dL * A lkaline Phosphatase 124 H 35-121 - IU/L * A LT (SGPT) 19 <5-47 - IU/L * A ST (SGOT) 21 <5-40 - IU/L * B ilirubin, Total <0.2 <0.2-1.2 - mg/dL * B UN 21 8-23 - mg/dL * C alcium 10.1 8.6-10.4 - mg/dL * C hloride 104 97-108 - mmol/L * C O2 23 22-32 - mmol/L * C reatinine 0.84 0.50-1.00 - mg/dL * G lucose 99 65-99 - mg/dL * P otassium 4.2 3.5-5.3 - mmol/L * S odium 140 135-145 - mmol/L * P rotein 6.6 6.0-8.3 - g/dL * e GFR by Creatinine 72 >59 - mL/min/1.73m2 ?LAB: P-Lipase?Normal* Value Reference Range L ipase 25.6 13.0-60.0 - u/L ?LAB: CBC Fingerstick (in house)* Value Reference Range w bc 11.4 3.5 - 10 * l ym 22.8% 15 - 50 * m id 6.0% 2 - 15 * g ran 71.2 35 - 80 * r bc 4.18 3.5 - 5.5 * h gb 12.5 11.5 - 16.5 * h ct 37.6 35 - 55 * m cv 90.0 75 - 100 * m ch 30.0 25 - 35 * m chc 33.4 31 - 38 * p lat 309 100 - 400 ?Imaging: Ultrasound : Right Upper Quadrant?fatty liver, sludge and stones* davidepsCarolyn Delgado 2024 09:57:21 AM > no auth required for either insurances; CPT code 11190; faxed to [facility] Scheduling Notes: Recommend Align Probiotic daily?? * Procedure Codes: G 2211 Complex e/m visit add [id number] CBC WITH AUTO [id number] SYST BP LT 130 MM [id number] DIAST BP < 80 MM [id number] BMI<30 AND >=22 CALC & DOCU * Follow Up: 3 Weeks * Images: Billing Information: * Visit Code: 46666 Office Visit, Est Pt., Level 4. * Procedure Codes: G2211 Complex e/[place]. [address] CBC WITH AUTO DIFF. 3074F SYST BP LT 130 MM HG. 3078F DIAST BP < 80 MM HG. G8420 BMI<30 AND >=22 CALC & DOCU. * Sign off status: Completed true * Provider: Kathryn Angeles M.D. Date: 01/14/2025 Generated for Kasey ovalles/Ghanshyam/eTransmitting on: 0 03/01/2025 12:48 PM EDT History and Physical Notes * HPI (History of Present Illness) Category Sub-Category Detail Notes Category Not es Gastroenterology Fever Vomiting Abdominal Pain aggravated with food Diarrhea Nausea Examination Category Sub-Category Detail Notes Category Not es General Examination HEENT: unremarkable Heart: RSR Lungs: no rhonchi, no wheez es heard, decreased breath sounds Abdomen: Mild epigastric full ness and some tenderness. Extremities: trace leg edema General Appearance: NAD Skin: normal, no rash Neurologic Exam: Intact, gait normal Neck: improved ROM but heidy e discomfort. Oral cavity: no lesions, mucosa m oist and WNL, no erythema Peripheral pulses: normal Chest: normal shape and exp ansion
--- OUTSIDE RECORDS SUMMARY | 2025-02-01 11:00 | XMS_ITS ---
Author Organization [facility] Address [address] [facility] [address] [place] [phone] Care Team Providers Care Police Academy Instructor Name Role Phone Kathryn Angeles Primary Care Provider [phone] Allergies Allergen (clinical drug ingredient) Drug/Non Drug [...] Losartan Potassium 50 MG Take 1/2 (one-h mcfp) tablet by mouth once daily for 90 [...] Encounter Location Date Provider Diagnosis [facility] [address] [place] [phone] 02/01/2025 Kathryn Angeles Symptomatic cholelithiasis K80.20 Assessments Encounter Date Diagnosis (ICD Code) Assessment Notes Treatment Notes Treatment Clinical Notes Section Notes 02/01/2025 Symptomatic cholelithiasis (ICD-10 - K80.20) CONT RX. AWAIT CONSULTATION Plan Of Treatment Treatment Notes Assessment Notes Symptomatic cholelithiasis CONT RX. AWAI T CONSULTATION Next Appt Details Follow Up: 2 Months, Reason: Provider Name:Kathryn Pennington er, 03/29/2025 04:15:00 PM, [address], [address], [place], [phone], Progress Notes * SOHAN NUÑEZCLARICEB:[birth year] (74 yo F)Acc No.[id number]:02/01/2025 Progress Notes Patient: BAMBI ROCHE Provider: Kathryn [...] Diagno stic Procedure: k tressa stone 02/2011, [facility] ER-fall 06/06. * Family History: F ather: . M other: . 1 sister(s) . . * Social History: C URRENT TOBACCO USE S moking Status: Patient does NOT smoke, Second hand smoke exposure: No. H ome smoke detector use: yes. Marital Status: Single, spouse is . Occupation: Works at [employer]. Past smoking status: no, 2003, quit smoking. Occup. exposure: She saw the Beatles twice! She saw Laith Mayorga! Also Alissa Jones and Curtis Briceno! Her favorite concert was [employer].. * Medications: T dionisio Dutasteride 0.5 MG [...] Months * Billing Information: * Visit Code: 80369 Office Visit, Est Pt., Level 3. * Procedure Codes: G2211 Complex e/m visit add on. * Electronic signature of Kathryn Angeles MD on 03/01/2025 at 12:47 PM EDT Sign off status: Pending * Provider: Kathryn Angeles M.D. Date: 0 02/01/2025 Generated for Kasey ovalles/Ghanshyam/eTransmitting on: 0 03/01/2025 12:47 PM EDT History [...]
--- OUTSIDE RECORDS SUMMARY | 2025-03-01 12:46 | XMS_ITS | Encounter Summary ---
Author Organization Healthcare Address [address] [place] [address] Care Team Providers Care Political Advisor Name Role Phone Nate Mills MD Primary Care Provider [phone] Efrain Angeles MD Primary Care Provider [phone] Encounter Details Date Type Department Care Team (Late Contact Info) Description 02/20/2024 Orders Only External Location [address] [place] [address] Provider, External Social History Tobacco Use Types Packs/Day Years Used Date Smoking Tobacco: Never Alcohol Use Standard Drinks/Week Comments No 0 (1 standard drink = 0.6 oz pur e alcohol) Comments Unknown Sex and Gender Information Value Date Recorded Sex Assigned at Not on file Legal Sex Female 6:24 PM EDT Gender Identity Not on file Sexual Orientation Not on file documented as of this encounter Plan of Treatment Upcoming Encounters Date Type Department Care Team ([facility] Contact Info) Description 03/29/2025 9:45 AM EDT Office Visit [facility] [address] [place] [phone] 03/29/2025 10:45 AM EDT Office Visit [facility] [address] [place] [address] Ebony Albrecht MD [address] [phone] documented as of this encounter Procedures Procedure Name Priority Date/Time Associated Diagnosis Comments MR BREAST OUTSIDE IMAGES 02/20/2024 12:45 PM EDT documented in this encounter Results * MR BREAST OUTSIDE IMAGES (02/20/2024 12:45 PM EDT) Anatomical Region Laterality Modality Breast Mammography 02/20/2024 12:4 5 PM EDT us External Provider IMG BI PROCEDURES Final Result documented in this encounter Visit Diagnoses Not on filedocumented in this encounter Care Teams Political Advisor Relationship Specialty Start Date End Date Nate Mills MD [address] [facility] [place] [address] [place] [address] PCP - General 09/23/20 04/02/24 Efrain Angeles MD [address] [facility] [address] [place] [address] PCP - General 04/03/24 documented as of this encounter
--- OUTSIDE RECORDS SUMMARY | 2025-03-01 12:47 | XMS_ITS | Clinical Summary ---
Author Organization [facility] Address [address] [place] [address] Care Team Providers Care Program Production Specialist Name Role Phone Efrain Angeles MD Primary Care Provider [phone] Allergies Active Allergy Reactions Criticality Noted Date Comments Nickel Rash Low 07/16/2022 Medications triamterene-hyd rochlorothiazid e (Maxzide-25) 37.5-25 MG tablet Take 1 tablet by mouth 1 (one) time each day. Active rosuvastatin (Crestor) 10 MG tablet 1 tablet (10 mg). 4 Active losartan (Cozaar) 50 MG tablet Take 0.5 tablets (25 mg) by mouth Daily. 4 Active dutasteride (Avodart) 0.5 MG capsule Take 1 capsule (0.5 mg) by mouth Daily. 4 Active minoxidil (Loniten) 2.5 MG tablet Take 1 tablet (2.5 mg) by mouth Daily. 4 Active Aspirin 81 MG capsule 81 mg 1 (one) time each day. Active albuterol 108 (90 Base) MCG/ACT inhaler INHALE 2 PUFFS BY MOUTH 4 TIMES DAILY NEEDED Active potassium chloride CR (Klor-Con) 10 MEQ ER tablet 1 tablet (10 mEq). 4 Active Vibegron (Gemtesa) 75 MG tablet Take 1 tablet by mouth Daily. 4 Active azithromycin (Zithromax) 500 MG tablet TAKE 1 TABLET BY MOUTH ONCE DAILY FOR 3 DAYS Active celecoxib (CeleBREX) 200 MG capsule Take 1 capsule (200 mg) by mouth 1 (one) time each day. Active ciclopirox (Penlac) 8 % solution APPLY TOPICALLY AT BEDTIME APPLY OVER PREVIOUS COAT; REMOVE WITH ALCOHOL EVERY 7 DAYS Active coenzyme Q-10 100 MG capsule Take 1 capsule (100 mg) by mouth 1 (one) time each day. Active amoxicillin-cla vulanate (Augmentin) 875-125 MG tablet Take 1 tablet by mouth 2 (two) times a day. 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 Social History Tobacco Use Types Packs/Day Years Used Date Smoking Tobacco: Never Smokeless Tobacco: Never Alcohol Use Standard Drinks/Week Comments No 0 (1 standard drink = 0.6 oz pur e alcohol) Comments Unknown Sex and Gender Information Value Date Recorded Sex Assigned at Not on file Legal Sex Female 6:24 PM EDT Gender Identity Not on file Sexual Orientation Not on file Last Filed Vital Signs Vital Sign Reading Time Taken Comments Blood Pressure 105/75 04/20/2024 2:07 PM EDT Pulse 88 04/20/2024 2:07 PM EDT Temperature 36.3 C (97.3 F) 04/03/2024 9:23 AM EDT Respiratory Rate - - Oxygen Saturation 95% 04/20/2024 2:07 PM EDT Inhaled Oxygen Concentration - - Weight 75.5 kg (166 lb 8 oz) 04/20/2024 2:07 PM EDT Height 167.6 cm (5' 6 ) 04/20/2024 2:07 PM EDT Body Mass Index 26.87 04/20/2024 2:07 PM EDT Plan of Treatment Upcoming Encounters Date Type Department Care Team (Late st Contact Info) Description 03/29/2025 9:45 AM EDT Office Visit [facility] [address] [place] [phone] 03/29/2025 10:45 AM EDT Office Visit [facility] [address] [place] [address] Ebony Albrecht MD [address] [place] [phone] Health Maintenance Due Date Last Done Comments [facility]-Bone Density Scan 1950 [facility]-Depression Screening 1950 [facility]-Hepatitis C Screening 1950 [facility]-Medicare Annual Wellness (AWV) 1950 [facility]-Infant/Child/Adol SDOH Screenings 1950 [facility]- SDOH Screenings 1967 [facility]-Adult SDOH Screenings 1967 [facility]-DTaP,Tdap,and Td Vaccines (1 - Tdap) 1968 CT Colonography 1994 Colonoscopy 1994 FIT-DNA 1994 FIT 1994 FOBT 1994 Sigmoidoscopy 1994 [facility]-Colorectal Cancer Screening 1994 [facility]-Pneumococcal Vaccine: 50+ Years (1 of 1 - PCV) 1999 [facility]-Zoster Vaccines (2 of 2) 07/01/2020 05/06/2020 [id number] Vaccine (2023- season) 2024 06/14/2021, 10/26/2020, 10/20/2020, Additional history exists [facility]-RSV Vaccine: 60+ Years or (1 - 1-dose 75+ series) 2024 [facility]-Influenza Vaccine (Season Ended) 2025 06/11/2022, 09/21/2021, 05/27/2020, Additional history exists [facility]-Hepatitis A Vaccines Aged Out 08/19/2019, 12/22 No longer eligible based on patient's age to complete this topic [facility]-Breast Cancer Screening Discontinued 11/16/2020, 0 11/16/2020 [facility]-Obesity Intervention Completed 04/20/2024 HPV Vaccines Aged Out No longer eligi ble based on patient's age to complete this topic [facility]-HIB Vaccines Aged Out No longer e ligible based on patient's age to complete this topic [facility]-IPV Vaccines Aged Out No longer e ligible based on patient's age to complete this topic [facility]-Rotavirus Vaccines Aged Out No lo nger eligible based on patient's age to complete this topic Insurance MEDICARE [facility] Care Teams Program Production Specialist Relationship Specialty Start Date End Date Efrain Angeles MD [address] [place] [address] PCP - General 04/03/24
--- OUTSIDE RECORDS SUMMARY | 2025-03-01 12:47 | XMS_ITS ---
Author Organization Unknown TREATMENT PLAN Planned [facility] Start Date Provider Encounter for Check-up [phone] [facility]
--- OUTSIDE RECORDS SUMMARY | 2025-03-01 12:47 | XMS_ITS | Encounter Summary ---
Author Organization [facility] Address [address] [place] [address] Care Team Providers Care Christian Science Nurse Name Role Phone Nate Mills MD Primary Care Provider [phone] Efrain Angeles MD Primary Care Provider [phone] Encounter Details Date Type Department Care Team (Late st Contact Info) Description 03/29/2023 Orders Only [facility] at [facility] [address] [place] [phone] Ebony Albrecht MD [address] [address] Social History Tobacco Use Types Packs/Day Years [...] Description 03/29/2025 9:45 AM EDT Office Visit [facility] [address] [place] [address] 03/29/2025 10:45 AM EDT Office Visit [facility] [address] [place] [address] Ebony Albrecht MD [address] [phone] documented as of this encounter Procedures Procedure Name Priority Date/Time Associated Diagnosis Comments COMPREHENSIVE METABOLIC PANEL, PLASMA Routine 03/29/2023 9:07 AM EDT documented in this encounter Results * (ABNORMAL) Comprehensive Metabolic Panel, Plasma (03/29/2023 9:07 AM EDT) External Glucose 108(H) 74 - 100 mg/dL 03/29/2023 9:52 AM EDT [facility] External BUN 16 6 - 20 mg/dL 03/29/2023 9:52 AM EDT [facility] External Creatinine Blood 0.69 0.50 - 0.95 mg/dL 03/29/2023 9:52 AM EDT [facility] External BUN/Creat Ratio 23(H) 10 - 20 (calc) 03/29/2023 9:52 AM EDT [facility] External Sodium 140 136 - 145 mmol/L 03/29/2023 9:52 AM EDT [facility] External Potassium 3.9 3.4 - 5.0 mmol/L 03/29/2023 9:52 AM EDT [facility] External Chloride 102 98 - 107 mmol/L 03/29/2023 9:52 AM EDT [facility] External Carbon Dioxide 28 22 - 31 mmol/L 03/29/2023 9:52 AM EDT [facility] External Anion Gap (AG) 10 7 - 25 (calc) 03/29/2023 9:52 AM EDT [facility] External Calcium 9.7 8.6 - 10.2 mg/dL 03/29/2023 9:52 AM EDT [facility] External Total Protein 7.4 6.4 - 8.3 g/dL 03/29/2023 9:52 AM EDT [facility] External Albumin 4.4 3.5 - 5.2 g/dL 03/29/2023 9:52 AM EDT [facility] External Globulin 3.0 1.5 - 4.5 023 9:52 AM EDT [facility] External Albumin/Globulin Ratio 1.5 1.1 - 2.5 (calc) 03/29/2023 9:52 AM EDT [facility] External Bilirubin Total 0.6 0.1 - 1.2 mg/dL 03/29/2023 9:52 AM EDT [facility] External Alkaline Phosphatase 107 30 - 121 U/L 03/29/2023 9:52 AM EDT [facility] External AST (SGOT) 29 0 - 32 U/L 03/29/2023 9:52 AM EDT [facility] External ALT (SGPT) 36(H) 0 - 33 U/L 03/29/2023 9:52 AM EDT [facility] External Estimated GFR 91 >=60 03/29/2023 9:52 AM EDT [facility] Comment: NOTE New calculation for GFR (CKD-EPI 2020) is formulated without race adjustment factors at the recommendation of the National Kidney Foundation and [place] [employer]ph[employer]. This calculation has not been validated in women. For pediatric patients refer to https://www.kidney.org/professionals/KDOQI/gfr_calculatorPed 03/29/2023 9:07 AM EDT 03/29/2023 9:20 AM EDT Ebony Albrecht MD LAB BLOOD ORDERABLES Final Re sult [facility] [address] [place] [address], documented in this encounter Visit Diagnoses Not on filedocumented in this encounter Care Teams Christian Science Nurse Relationship Specialty Start Date End Date Nate Mills MD [address] [place] [facility] [address] [address] PCP - General 09/23/20 04/02/24 Efrain Angeles MD [address] [place] [facility] [address] [address] PCP - General 04/03/24 documented as of this encounter
--- OUTSIDE RECORDS SUMMARY | 2025-03-01 12:47 | XMS_ITS | Referral Summary ---
Author Organization [facility] Address [address] [place] [address] Care Team Providers Care Bilingual Secretary Name Role Phone Unavailable Primary Care Provider Unavailabl e Social History Tobacco Use Types Packs/Day Years Used Date Smoking Tobacco: Never Assessed Comments Unknown Sex and Gender Information Value Date Recorded Sex Assigned at Not on file Legal Sex Female 1:22 PM CDT Gender Identity Not on file Sexual Orientation Not on file Plan of Treatment Not on file Procedures Procedure Name Priority Date/Time Associated Diagnosis Comments MM DIGITAL MAMMO SCREEN IMPLANT BILATERAL Routine 11/16/2020 2:34 PM EST from Last 3 Months or Most Recently Relevant to Health Maintenance Results * MM digital mammo screen implant bilat (11/16/2020 2:34 PM EST) Anatomical Region Laterality Modality Breast Bilateral Mammography 11/16/2020 2:34 PM EST Narrative 11/16/2020 10:36 PM EST PROCEDURE: Digital screening mammogram. REASON FOR EXAM: Routine screening. FAMILY HISTORY: Weak family history of breast cancer COMPARISON STUDIES: [facility] [phone]; no significant change. FINDINGS: Craniocaudal and mediolateral oblique images of both breasts were obtained with implants in place and displaced. Bilateral retroglandular silicone implants are present. Implants are heavily encapsulated and were very firm and difficult to compress and displace. As a result, it was difficult to exclude motion imaging the right breast with implant in place. Small flame-shaped density extending from the superior lateral aspect of the right implant is unchanged and likely reflects small area of contained extracapsular rupture. The breast tissue is almost entirely fatty. Few grouped punctate and smooth round calcifications anterior to the left implant in the posterior left breast at the nipple line are stable. There is no evidence of dominant mass, architectural distortion, or suspicious calcifications. Mammogram was reviewed with the benefit of computer aided detection. FINAL IMPRESSION: ACR BI-RADS 2: Benign findings. RECOMMENDATIONS: Routine annual screening mammography. At our facility, a miccosukee marker is positioned over a visible skin lesion and a linear marker is used to indicate a scar. A triangular marker is placed on a self reported palpable finding. A letter including results and recommendations was sent to the patient. Density notification was included for patients with Pattern 3 or 4 breast tissue. Patient information was entered into a reminder system with a target due date for the next mammogram. Procedure Note Sandrine Mckeon MD - 01/08/2023 PROCEDURE: Digital screening mammogram. REASON FOR EXAM: Routine screening. FAMILY HISTORY: Weak family history of breast cancer COMPARISON STUDIES: [facility] [phone]; no significant change. FINDINGS: Craniocaudal and mediolateral oblique images of both breasts were obtained with implants in place and displaced. Bilateral retroglandular silicone implants are present. Implants are heavily encapsulated and were very firm and difficult to compress and displace. As a result, it was difficult to exclude motion imaging the right breast with implant in place. Small flame-shaped density extending from the superior lateral aspect of the right implant is unchanged and likely reflects small area of contained extracapsular rupture. The breast tissue is almost entirely fatty. Few grouped punctate and smooth round calcifications anterior to the left implant in the posterior left breast at the nipple line are stable. There is no evidence of dominant mass, architectural distortion, or suspicious calcifications. Mammogram was reviewed with the benefit of computer aided detection. FINAL IMPRESSION: ACR BI-RADS 2: Benign findings. RECOMMENDATIONS: Routine annual screening mammography. At our facility, a miccosukee marker is positioned over a visible skin lesion and a linear marker is used to indicate a scar. A triangular marker is placed on a self reported palpable finding. A letter including results and recommendations was sent to the patient. Density notification was included for patients with Pattern 3 or 4 breast tissue. Patient information was entered into a reminder system with a target due date for the next mammogram. Sandrine Mckeon MD IM MAMMOGRAPHY ORDERABLES F inal Result from Last 3 Months or Most Recently Relevant to Health Maintenance Insurance MEDICARE PART [place] [address] [address]
--- OUTSIDE RECORDS SUMMARY | 2025-03-01 12:47 | XMS_ITS | Encounter Summary ---
Author Organization [facility] Address [address] [place] [address] Care Team Providers Care Senior It Project Manager Name Role Phone Nate Mills MD Primary Care Provider [phone] Efrain Angeles MD Primary Care Provider [phone] Encounter Details Date Type Department Care Team (Late st Contact Info) Description 03/14/2021 [facility] [address] [place] [phone] Efrain La PA [address] [place] [address] Social History Tobacco Use Types Packs/Day Years [...] Description 03/29/2025 9:45 AM EDT Office Visit [email or web address] at [facility] [address] [place] [phone] 03/29/2025 10:45 AM EDT Office Visit [facility] [[email or web address] at [place] [address] [place] [phone] Ebony Albrecht MD [address] [facility] [address] [place] [address] documented as of this encounter Procedures Procedure Name Priority Date/Time Associated Diagnosis Comments D DIMER, QUANTITATIVE Routine 03/14/2021 1:48 PM EDT documented in this encounter Results * (ABNORMAL) D DIMER, QUANTITATIVE (03/14/2021 1:48 PM EDT) External D-Dimer 1.12(H) <0.50 mcg/mL FEU [facility] Comment: The D-Dimer test is used frequently to exclude an acute PE or DVT. In patients with a low to moderate clinical risk assessment and a D-Dimer result <0.50 mcg/mL FEU, the likelihood of a PE or DVT is very low. However, a thromboembolic event should not be excluded solely on the basis of the D-Dimer level. Increased levels of D-Dimer are associated with a PE, DVT, DIC, malignancies, inflammation, sepsis, surgery, trauma, , and advancing patient age. [Fransico 2006 11:295(2):199-207] For additional information, please refer to: http://education.dax Asparna/faq/IGZ336 (This link is being provided for informational/ educational purposes only) TEST PERFORMED AT: [facility] [address] [phone] HARVINDER CULVER M.D. 03/14/2021 1:48 PM EDT 03/14/2021 2:38 PM EDT us Efrain KIRBY LAB BLOOD ORDERABLES Final R esult [facility] [address] [place] [address], documented in this encounter Visit Diagnoses Not on filedocumented in this encounter Care Teams Senior It Project Manager Relationship Specialty Start Date End Date Nate Mills MD [address] [facility] [address] [place] [address] PCP - General 09/23/20 04/02/24 Efrain Angeles MD [address] [place] [facility] [address] [address] PCP - General 04/03/24 documented as of this encounter
--- OUTSIDE RECORDS SUMMARY | 2025-03-01 12:47 | XMS_ITS | Continuity of Care Document ---
Author Organization [facility] [address] Address [address] [place] [address] Care Team Providers Care [employer] Operations Specialist Name Role Phone MARIAN HICKS Hematology/Oncology ELLE BOWSER Primary Care Provider [phone] Assessment No assessment recorded. Plan of Treatment Reminders Order Date Submit Date Provider Last Modified By Organization Details Last Modified Time Details Appointments RECHECK 2024 02:00P M LOUISE DESHPANDE MD Not available Not available Not available Lab None recorded . Referral None recorded . Procedures None recorded . Surgeries None recorded . Imaging None recorded . Medication Orders None recorded . Patient TargetsNo targets recorded. Patient InstructionsNo instructions recorded. Reason for Referral None Reported. 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 From Automated Load;Provi alex: Samira Oh;Sta tus: Active Not Available [facility] 6 10:00:49 Idiopathi c osteoarth ritis 573780848 Active 2015 From Automated Load;Provi alex: Samira Oh;Sta tus: Active Not Available [facility] 6 10:00:49 Acquired trigger finger 6715148 Active 2015 From Automated Load;Provi alex: Binta Hatch;St atus: Active Not Available [facility] 6 10:00:49 Low back pain 951167149 Active 2015 Provider: Mckayla Sawant;Carlito tus: Active Not Available [facility] 6 10:00:49 Pain in right lower limb 556508243 Active 2015 From Automated Load;Provi alex: Mckayla Sawant;Sta tus: Active Not Available [facility] 7 08:17:17 Problem Notes None recorded. Procedures Surgical History Date Name Laterality Status Provider Name and Address Organization Details Recorded Time 12/03/19 Audiogram completed BOB FERNANDEZ, AUD [address] [place], [address], [facility] 12/02/2024 14:15:27 02/04/20 24 Cervical Epidural Steroid Injection - Edith completed BINTA VALLE MD [address] [place], [address], [facility] 02/04/2024 16:42:53 12/10/19 24 Lumbar Epidural Steroid Injection - Edith completed BINTA VALLE MD [address] [place], [address], [facility] 12/10/2023 13:08:38 10/15/19 24 Injection Joint/Bursa, Major completed Steve Jiang [facility] 11/03/2023 10:26:01 07/17/20 23 PTNM; single treatment completed Lissette Llanes [facility] 07/17/2023 10:20:48 07/10/20 23 PTNM; single treatment completed Lissette Llanes [facility] 07/10/2023 10:57:02 07/03/20 23 PTNM; single treatment completed Lissette Llanes [facility] 07/03/2023 10:00:46 06/26/20 Tympanogram completed BOB FERNANDEZ, AUD [address] [place], [address], [facility] 06/26/2023 14:08:53 06/26/20 Audiogram completed BOB FERNANDEZ, AUD [address] [place], [address], [place] [facility] 06/26/2023 13:46:18 06/26/20 PTNM; single treatment completed Lissette Llanes [facility] 06/26/2023 09:57:04 06/19/20 PTNM; single treatment completed Lissette Llanes [facility] 06/19/2023 10:02:20 06/18/20 Injection Joint/Bursa, Major completed SAMIRA VELASQUEZ MD [address] [place], [address], [place] [facility] 06/18/2023 18:09:20 06/12/20 PTNM; single treatment completed Lissette Llanes [facility] 06/12/2023 09:32:33 06/05/20 PTNM; single treatment completed Lissette Llanes [place] [facility] 06/05/2023 10:11:13 05/22/20 PTNM; single treatment completed Lissette Llanes [facility] 05/22/2023 09:36:10 05/15/20 PTNM; single treatment completed Lissette Llanes [place] [facility] 05/15/2023 10:24:29 05/08/20 PTNM; single treatment completed Lissette Llanes [place] [facility] 05/08/2023 09:34:42 05/01/20 PTNM; single treatment completed Lissette Llanes [place] [facility] 05/01/2023 09:38:00 04/24/20 PTNM; single treatment completed Lissette Llanes [place] [facility] 04/24/2023 10:00:07 03/19/20 Injection Joint/Bursa, Major completed SAMIRA VELASQUEZ MD [address] [place], [address], [place] [facility] 03/19/2023 19:21:27 01/03/20 PTNM; single treatment completed Lissette Llanes [place] [facility] 01/02/2023 14:15:39 11/29/19 PTNM; single treatment completed Lissette Llanes [place] [facility] 11/28/2022 11:13:43 11/07/19 23 PNE Implantation; Sacral Nerve completed Lissette Llanes [facility] 11/07/2022 15:36:06 10/10/19 23 PTNM; single treatment completed Lissette Llanes [facility] 10/10/2022 14:05:47 08/28/20 22 PTNM; single treatment completed Lissette Llanes [facility] 08/28/2022 16:08:39 07/18/20 22 PTNM; single treatment completed Lissette Llanes [facility] 07/18/2022 14:06:01 06/12/20 22 PTNM; single treatment completed Lissette Llanes [facility] 06/12/2022 09:28:34 04/30/20 22 PTNM; single treatment completed Lissette Llanes [facility] 04/30/2022 09:46:41 03/28/20 PTNM; single treatment completed Lissette Llanes [facility] 03/28/2022 12:10:29 02/03/20 PTNM; single treatment completed Marian Zamorano [facility] 02/02/2022 12:54:09 01/06/20 PTNM; single treatment completed Lissette Llanes [facility] 01/05/2022 09:43:05 12/09/19 22 PTNM; single treatment completed Lissette Llanes [facility] 12/08/2021 09:16:36 11/03/19 22 Orthotic, HFO, Static Custom completed MARIANO LUCERO JR, OTR/L, CHT [address] [place], [address], [facility] 11/03/2021 10:19:47 11/01/19 22 PTNM; single treatment completed Shamika Cook [facility] 11/01/2021 14:15:16 09/27/19 22 PTNM; single treatment completed Lissette Llanes [facility] 09/27/2021 13:44:55 08/30/20 21 PTNM; single treatment completed Lissette Llanes [facility] 08/30/2021 13:49:55 08/02/20 PTNM; single treatment completed Lissette Llanes [facility] 08/02/2021 13:39:59 07/05/20 PTNM; single treatment completed Fredericeriee Thebes [facility] 07/05/2021 14:16:42 06/08/20 Audiogram completed BOB REBECCA, AUD [address] [place], [address], [facility] 06/08/2021 14:36:24 06/07/20 PTNM; single treatment completed Lissette Llanes [facility] 06/07/2021 13:51:12 05/10/20 PTNM; single treatment completed Lissette Llanes [facility] 05/10/2021 13:50:25 04/12/20 PTNM; single treatment completed Fredericeriee Thebes [facility] 04/12/2021 14:41:42 03/15/20 PTNM; single treatment completed Shamika Cook [facility] 03/15/2021 14:14:49 02/16/20 PTNM; single treatment completed Marian Zamorano [facility] 02/15/2021 14:11:53 01/19/20 PTNM; single treatment completed Lissette Llanes [facility] 01/18/2021 15:01:10 12/15/19 PTNM; single treatment completed Lissette Llanes [facility] 12/14/2020 14:29:21 11/16/19 PTNM; single treatment completed Lissette Llanes [facility] 11/16/2020 14:08:30 10/19/19 PTNM; single treatment completed Lissette Llanes [facility] 10/19/2020 14:14:48 09/21/20 PTNM; single treatment completed Fredericeriee Thebes [facility] 09/21/2020 14:10:25 08/17/20 PTNM; single treatment completed Lissette Llanes [facility] 08/17/2020 12:42:47 07/20/20 PTNM; single treatment completed Lissette Llanes [place] [facility] 07/20/2020 14:31:41 06/22/20 PTNM; single treatment completed Lissette LEIJA - [facility] 06/22/2020 15:07:04 05/25/20 PTNM; single treatment completed Lissette Llanes [place] [facility] 05/25/2020 14:54:12 04/27/20 PTNM; single treatment completed Lissette LEIJA - [facility] 04/27/2020 15:14:35 03/30/20 PTNM; single treatment completed Elton Roth [place] [facility] 03/30/2020 13:54:01 02/24/20 PTNM; single treatment completed Lissette Llanes [place] [facility] 02/24/2020 12:22:05 01/28/20 PTNM; single treatment completed Lissette Llanes [place] [facility] 01/28/2020 14:31:41 12/02/19 PTNM; single treatment completed Lissette Llanes [place] [facility] 12/02/2019 13:41:35 10/28/19 PTNM; single treatment completed Lissette Llanes [place] [facility] 10/28/2019 13:34:17 09/30/19 PTNM; single treatment completed Lissette Llanes [place] [facility] 09/30/2019 13:36:55 08/26/20 PTNM; single treatment completed Lissette Llanes [place] [facility] 08/26/2019 14:23:11 07/29/20 PTNM; single treatment completed Elton Roth [place] [facility] 07/29/2019 13:40:34 06/24/20 PTNM; single treatment completed Lissette Llanes [place] [facility] 06/24/2019 13:47:33 05/27/20 PTNM; single treatment completed Aby Garland [place] [facility] 05/27/2019 13:26:10 04/22/20 PTNM; single treatment completed Lissette Llanes [place] [facility] 04/22/2019 13:48:48 03/25/20 PTNM; single treatment completed Lissette Llanes [place] [facility] 03/25/2019 13:38:21 05/29/20 19 PTNM; single treatment completed Lissette Carranzaford [place] [facility] 02/18/2019 13:36:03 01/22/20 19 PTNM; single treatment completed Lissettemissy Carranzaford [place] [facility] 01/21/2019 13:28:09 12/25/19 19 PTNM; single treatment completed Deseriee Thebes [place] [facility] 12/24/2018 13:27:25 11/27/19 19 PTNM; single treatment completed Lissette Llanes [place] [facility] 11/26/2018 13:23:30 10/29/19 19 PTNM; single treatment completed Lissettemissy Carranzaford [place] [facility] 10/29/2018 13:24:59 10/01/19 19 PTNM; single treatment completed Lissette Llanes [place] [facility] 10/01/2018 13:37:18 09/03/20 18 PTNM; single treatment completed Lissette Llanes [place] [facility] 09/03/2018 14:01:41 08/06/20 18 PTNM; single treatment completed Deseriee Thebes [place] [facility] 08/06/2018 13:24:22 07/09/20 18 PTNM; single treatment completed Deseriee Thebes [place] [facility] 07/09/2018 13:53:27 06/11/20 18 PTNM; single treatment completed Deseriee Thebes [place] [facility] 06/11/2018 13:43:34 05/14/20 18 PTNM; single treatment completed Lissette Llanes [place] [facility] 05/14/2018 13:35:13 04/16/20 18 PTNM; single treatment completed Lissette Llanes [place] [facility] 04/16/2018 13:40:58 03/19/20 18 PTNM; single treatment completed Lissettemissy Llanes [place] [facility] 03/19/2018 15:35:10 02/20/20 18 PTNM; single treatment completed Lissettemissy Carranzaford [place] [facility] 02/19/2018 13:52:08 02/13/20 18 PTNM; single treatment completed Lissettemissy Carranzaford [place] [facility] 02/12/2018 14:51:22 02/06/20 18 PTNM; single treatment completed Lissette Llanes [place] [facility] 02/05/2018 14:19:59 01/30/20 18 PTNM; single treatment [facility]/29/2018 14:04:02 01/23/20 18 PTNM; single treatment completed Lissette Llanes [facility] 01/22/2018 13:51:44 01/16/20 18 PTNM; single treatment completed Lissette Llanes [facility] 01/15/2018 14:31:08 01/09/20 18 PTNM; single treatment completed Lissette Llanes [facility] 01/08/2018 14:04:38 01/02/20 18 PTNM; single treatment completed Lissette Llanes [facility] 01/01/2018 14:04:04 12/26/19 18 PTNM; single treatment completed Lissette Llanes [facility] 12/25/2017 13:48:37 12/19/19 18 PTNM; single treatment completed Lissette Llanes [facility] 12/18/2017 14:07:42 12/14/19 18 Injection Joint/Bursa, Major completed SAMIRA VELASQUEZ MD [address] [place], [address], [place] [facility] 12/13/2017 08:27:52 12/12/19 18 PTNM; single treatment completed Lissette Llanes [facility] 12/11/2017 14:38:33 12/05/19 18 PTNM; single treatment completed Lissette Llanes [facility] 12/04/2017 14:31:53 11/20/19 17 Injection Joint/Bursa, Major, w/o US completed SAMIRA VELASQUEZ MD [address] [place], [address], [place] [facility] 11/20/2016 16:42:55 09/23/19 16 Back Surgery completed Mita Omalley [facility] 11/27/2023 09:40:35 Total hip arthroplasty completed Pawan Storm [facility] 02/13/2019 08:01:33 Total Colectomy completed Мария Charles [facility] 01/20/2018 14:24:43 Tonsillectomy completed Мария Charles [facility] 01/20/2018 14:24:49 Hip Replacement completed Мария Soto [facility] 01/20/2018 14:25:08 Imaging Results None recorded. Procedure Notes None recorded. Medical Equipment None Reported. Allergies No known drug allergies Medications Name Sig Start Date Stop Date Status Note LastModified by Organization Details LastModified Time losartan 50 mg tablet Take 0.5 tablets every day by oral route. active Not Available Not Available No t Available celecoxib 200 mg capsule take 1 capsule by mouth once daily 03/11 completed Not Available Not Available Not Available Percocet 7.5 mg-325 mg tablet Every six to eight hours 07/04 completed Duration : 30 days;Ins truction s: Take with HARVEY 250mg BID;Freq uency: q6-8h;Al t Frequenc y: prn pain;Med ication Descript ion: acetamin ophen-ox ycodone; Dosage:1 ; Route:or al; refills: 0; Quantity :90 tablet Not Available Not Available Not Available oxybutyni n chloride ER 15 mg tablet,ex tended release 24 hr Take 1 tablet every day by oral route. 2023 active Not Available Not Available Not Avai lable oxybutyni n chloride ER 10 mg tablet,ex tended release 24 hr Take 1 tablet twice a day by oral route as directed for 30 days. 01/20 completed Not Available Not Available Not Available ibuprofen 800 mg tablet Take 1 tablet 3 times a day by oral route. 07/04 completed Not Available Not Available Not Available Zestril 5 mg tablet Daily 01/20 completed Frequenc y: daily;Me dication Descript ion: lisinopr il; Dosage:1 ; Route:or al; refills: 5; Quantity :30 tablet Not Available Not Available Not Available Medrol (Talha) 4 mg tablets in a dose pack Take 1 dose pk by oral route as directed . 04/06 completed Not Available Not Available Not Available metronida zole 500 mg tablet Take 1 tablet every 8 hours by oral route for 5 days. 2023 active Not Available Not Available Not Avai lable minoxidil 2.5 mg tablet Take 1 tablet every day by oral route. active Not Available Not Available No t Available Voltaren- XR 100 mg tablet,ex tended release 01/20 completed Duration : 10 days;Med ication Descript ion: diclofen ac; Route:or al; refills: 0; Quantity :30 tablet, extended release Not Available Not Available Not Available triamtere ne 37.5 mg-hydroc hlorothia zide 25 mg capsule 01/20 completed Duration : 10 days;Med ication Descript ion: hydrochl orothiaz frandy-tria mterene; Route:or al; refills: 0; Quantity :30 capsule Not Available Not Available Not Available Valium 5 mg tablet Two times a day 07/04 completed Duration : 20 days;Joselito quency: bid;Medi cation Descript ion: diazepam ; Dosage:1 ; Route:or al; refills: 0; Quantity :40 tablet Not Available Not Available Not Available doxycycli ne monohydra te 100 mg capsule Take 1 capsule twice a day by oral route. 04/[address] Deshpande Not Available Not Available Not Available Cipro 500 mg tablet Take 1 tablet every 12 hours by oral route for 10 days. 2023 active Not Available Not Available Not Avai lable aspirin 81 mg tablet Daily 04/17 completed Duration : 30 days;Joselito quency: daily;Me dication Descript ion: aspirin; Dosage:1 ; Route:or al; refills: 0; Quantity :30 tablet Not Available Not Available Not Available Cozaar 25 mg tablet Take 1 tablet every day by oral route. active Not Available Not Available No t Available Levaquin 500 mg tablet Take 1 tablet every 24 hours by oral route. 11/26 completed Not Available Not Available Not Available cefuroxim e axetil 500 mg tablet Take 1 tablet every 12 hours by oral route for 14 days. 11/07 completed Not Available Not Available Not Available inhaler, for use with solution as needed 03/18 completed Not Available Not Available Not Available dutasteri de 0.5 mg capsule Take 1 capsule every day by oral route. active Not Available Not Available No t Available Cymbalta 30 mg capsule,d elayed release Daily 07/04 completed Duration : 30 days;Ins truction s: take 1 tab daily for 1-2 weeks, if tolerate d then increase to 2 tabs daily ;Frequen cy: daily;Me dication Descript ion: duloxeti ne; Dosage:1 ; Route:or al; refills: 1; Quantity :60 delayed release capsule Not Available Not Available Not Available selenium 12/16 completed Not Available Not Available Not Available Maxidex 11/26 completed Not Available Not Available Not Available Potassium Chloride ER active Not Available Not Available Not Available rosuvasta tin active Not Available Not Available Not Available turmeric (bulk) 12/16 completed Not Available Not Available Not Available Toviaz 8 mg tablet,ex tended release 01/20 completed Not Available Not Available Not Available Myrbetriq 50 mg tablet,ex tended release Take 1 tablet every day by oral route. 2024 active Not Available Not Available Not Avai lable Gemtesa 75 mg tablet Take 1 tablet every day by oral route. active Not Available Not Available No t Available albuterol 90 mcg-budes onide 80 mcg/actua tion HFA aerosol inhaler Inhale by inhalati on route as needed. active Not Available Not Available No t Available Vitals None Recorded Social History Question Answer Notes LastModified by Organizat ion Details LastModified Time Tobacco Smoking Status Former Smoker Cleo Ibarra [facility] 09/21/2016 10:43:51 Accident Related Injury No Information not available 09/21/2016 What Is Your Level Of Caffeine Consumption? Heavy Information not available 09/21/2016 How Much Tobacco Do You Chew? None Information not available 09/21/2016 When Did You Quit Smoking? 11-15yearssi [email or web address] ette Information not available 09/21/2016 Which Of Your Hands Is Dominant? Right Information not available 09/21/2016 Live Alone Or With Others? Alone [email or web address] Information not available 01/20/2018 Rate The Severity Of Your Symptoms: (0-10 With 0=none And 10=worst Possible) 3 Information not available 09/21/2016 Have You Been Treated For This Problem Before? Yes Information not available 09/21/2016 Will This Be Filed As Workers' Compensation? No Information not available 09/21/2016 Marital Status [email or web address] Informatio n not available 09/21/2016 What Was The Date Of Your Most Recent Tobacco Screening? 01/14/2024 [email or web address] Information not available 01/14/2024 What Is Your Relationship Status? Information not available 11/27/2023 How Much Tobacco Do You Smoke? No [email or web address] Information not available 06/10/2020 Has Tobacco Cessation Counseling Been Provided? No [email or web address] Information not available 11/27/2023 Work Related Injury? No Information not available 09/21/2016 Sex: Female Functional Status Question Answer Note LastModified by Organizat ion Details LastModified Time Do you use any illicit or recreational drugs? No Information not available 09/21/2016 What is your level of alcohol consumption? None Information not available 09/21/2016 Are you currently employed? 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 Family History Relationship Description Onset Age of this Age Resolved Age Notes LastModified by Organization Details LastModified Time Father Arthritis [email or web address] Not available 09/21/2016 10:43:13 Father Diabetes mellitus [email or web address] Not available 2015 10:43:22 Sister Arthritis kduffie Not available 09/21/2016 10:43:13 Sister Diabetes mellitus kduffie Not available 2015 10:43:22 Sister Myocardial infarction kduffie Not available 09/21 10:43:43 Brother Arthritis kduffie Not availabl e 09/21/2016 10:43:13 Brother Myocardial infarction kduffie Not available 09/21 10:43:43 Medical History Condition Response Other N Gout N Kidney Stones N COPD N Pneumonia N Dizziness N Arthritis Y Blood Clot N Cancer Y Stroke N Kidney Disease N Heart Conditions N Migraines N Skin Problems N Rheumatic Fever N Noise exposure (guns, equipment etc) N Bleeding Disorder N Tuberculosis N Genetic Disorder N AIDS/HIV N Asthma N Included as Review of Systems Y Chronic Ear Infections N Anxiety/Depression N Thyroid Disease N Hernia N Glaucoma N Anesthesia Complications N Hearing Loss Y Head Injury/Concussion Y Blood Thinners N Alcohol Overuse/Alcohol Abuse N High Cholesterol N Liver Disease N Allergies/Hayfever N Alzheimer's N Pressure in ears N Immune System Disorder N Heart Attack ([place]) N Mental Illness N Neurological Problems N Diabetes N Seizures/Epilepsy N Tinnitus Y Sleep Apnea N Heart Disease N Hypertension Y Osteoporosis N Gynecological HistoryNo gynecological history recorded. Obstetrics History GPAL:G 0 P 0 0 0 0 Past Encounters Encounter ID Performer Location Encounter Start Date Encounter Closed Date Diagnosis/Indication Diagnosis SNOMED-CT Code Diagnosis ICD10 Code Diagnosis Note [id number] GILDA FAN NG, AUD [place] [facility] [address] [place] [address] 02/03/2025 10:41:42 02/04/2025 15:21:21 Health Concerns Section Related Observation LastModified by Organization Detai ls LastModified Time None Recorded Concern Status LastModified by Organization Details LastModified Time None Recorded Payers Encounter Date Sequence Insurance Name Policy Number Policy Lindsay Covered Member ID Lindsay Member ID Guarantor Name 02/03/2025 1 [place] Alyssia Holly [id number] Alyssia Holly 02/03/2025 2 [facility] (MEDICARE SUPPLEMENT) Alyssia Holly [id number] Alyssia Holly OBGyn Episode No OBEpisode recorded.
--- OUTSIDE RECORDS SUMMARY | 2025-03-01 12:47 | XMS_ITS | Clinical Summary ---
Author Organization [facility] [facility] [employer] Address [address] [place] [address] Care Team Providers Care Banking Services Advisor Name Role Phone Unavailable Primary Care Provider Unavailabl e Social History Tobacco Use Types Packs/Day Years Used Date Smoking Tobacco: Never Assessed Comments Unknown Sex and Gender Information Value Date Recorded Sex Assigned at Not on file Legal Sex Female 1:22 PM CDT Gender Identity Not on file Sexual Orientation Not on file Plan of Treatment Health Maintenance Due Date Last Done Comments CT Colonography 1949 Colonoscopy 1949 Colorectal Cancer Screening 1949 DXA SCAN 1949 FOBT/FIT 1949 Fit-DNA (Cologuard) 1949 Sigmoidoscopy 1949 Depression Screening (12+) 1961 Tobacco Cessation Counseling and Screening (12+) 1961 Hepatitis C Screening 1967 DTAP/TDAP/TD VACCINES (1 - Tdap) 1968 Pneumococcal 50+ years (1 of 1 - PCV) 1999 Medicare Initial AWV G0438 07/25/2015 Shingles Vaccine (Zoster) (2 of 2) 07/01/20202019 COVID-19 VACCINE (4 - 2023-2 5 season) 2024 06/14/2021, 10/26/2020, 09/28/2020 Respiratory Syncytial Virus (RSV) Adult or (1 - 1-dose 75+ series) 2024 Falls Risk Screening 09/23/2024 Influenza Vaccine (Season Ended) 2025 06/11/20 22, 09/21/2021 Breast Cancer Screening Discontinued 11/16/19 21, 11/11/2019, 11/05/2018 Procedures Procedure Name Priority Date/Time Associated Diagnosis [...] family history of breast cancer COMPARISON STUDIES: [facility] [phone]; no significant change. FINDINGS: Craniocaudal and mediolateral [...] annual screening mammography. At our facility, a pilot point marker is positioned over a visible skin [...] family history of breast cancer COMPARISON STUDIES: [facility] [phone]; no significant change. FINDINGS: Craniocaudal and mediolateral [...] annual screening mammography. At our facility, a pilot point marker is positioned over a visible skin [...] for the next mammogram. Sandrine Mckeon MD IMG MAMMOGRAPHY ORDERABLES F inal Result from Last 3 Months or Most Recently Relevant to Health Maintenance Insurance MEDICARE PART A B
--- OUTSIDE RECORDS SUMMARY | 2025-03-01 12:47 | XMS_ITS | Encounter Summary ---
Author Organization [facility] [employer] [facility] [employer] Address [address] [place] [address] Care Team Providers Care Automation Lead Name Role Phone Unavailable Primary Care Provider Unavailabl e Reason for Referral * Diagnostic X-Ray (Emergency) - New Request Specialty Diagnoses / Procedures Referred By Jose t Referred To Contact Diagnoses Calculus of kidney Procedures X-ray abdomen KUB 1 view Jordin Isabel MD [address] [place] [address] [address] [place] [address] Phone: tel: fax: Referral ID Status Reason Start Date Expiration Date V isits Requested Visits Authorized [id number] New Request 09/02/2024 09/02/2025 1 1 Encounter Details Date Type Department Care Team (Late st Contact Info) Description 09/02/2024 Outside Orders [facility] [place] [facility] [address] [place] [address] [address] [place] [phone] Jordin Isabel MD [address] [place] [address] [address] [place] [address] Calculus of kidney (Primary Dx) Social History Tobacco Use Types Packs/Day Years Used Date Smoking Tobacco: Never Assessed Comments Unknown Sex and Gender Information Value Date Recorded Sex Assigned at Not on file Legal Sex Female 1:22 PM CDT Gender Identity Not on file Sexual Orientation Not on file documented as of this encounter Plan of Treatment Not on file documented as of this encounter Results * X-ray abdomen KUB 1 view (09/02/2024 12:02 PM EST) Anatomical Region Laterality Modality Abdomen X-Ray 09/02/2024 4:57 PM EST Impressions 09/02/2024 5:23 PM EST Right paraspinal and right pelvic calcifications could be in the ureter or bowel. Images reviewed, interpreted, and dictated by Dr. Mathieu Downs. Transcribed by Alison Gupta PA-C. Narrative 09/02/2024 5:23 PM EST SINGLE VIEW ABDOMEN HISTORY: Nephrolithiasis COMPARISON: None ABDOMEN: There is a nonspecific, nonobstructive bowel gas pattern. There are postoperative changes from posterior fusion at L4-L5. There are bilateral hip arthroplasties. There is right paraspinal 12 mm oval calcification. There is a 12 mm calcification in the right pelvis. Procedure Note Mathieu Downs MD - 09/02/2024 SINGLE VIEW ABDOMEN HISTORY: Nephrolithiasis COMPARISON: None ABDOMEN: There is a nonspecific, nonobstructive bowel gas pattern. There are postoperative changes from posterior fusion at L4-L5. There are bilateral hip arthroplasties. There is right paraspinal 12 mm oval calcification. There is a 12 mm calcification in the right pelvis. IMPRESSION: Right paraspinal and right pelvic calcifications could be in the ureter or bowel. Images reviewed, interpreted, and dictated by Dr. Mathieu Downs. Transcribed by Alison Gupta PA-C. Jordin Isabel MD IMG DIAGNOSTIC IMAGING ORDERAB LES Final Result documented in this encounter Visit Diagnoses Diagnosis Calculus of kidney- Primary Calculus of kidney documented in this encounter
--- OUTSIDE RECORDS SUMMARY | 2025-03-01 12:47 | XMS_ITS | Encounter Summary ---
Author Organization [facility] Address [address] [place] [address] Care Team Providers Care Toll Bridge Operator Name Role Phone Nate Mills MD Primary Care Provider [phone] Efrain Angeles MD Primary Care Provider [phone] Encounter Details Date Type Department Care Team (Late st Contact Info) Description 03/29/2023 Orders Only [facility] [address] [place] [phone] Ebony Albrecht MD [address] [address] Social History Tobacco Use Types [...] Description 03/29/2025 9:45 AM EDT Office Visit [facility] [address] [place] [address] 03/29/2025 10:45 AM EDT Office Visit [facility] [address] [place] [address] Ebony Albrecht MD [address] [facility] [address] [place] [phone] documented as of this encounter Procedures Procedure Name Priority Date/Time Associated Diagnosis Comments CBC WITH AUTO DIFFERENTIAL Routine 03/29/2023 9:07 AM EDT documented in this encounter Results * (ABNORMAL) CBC and Differential (03/29/2023 9:07 AM EDT) External WBC 12.7(H) 3.8 - 10.8 10*3/uL 03/29/2023 9:26 AM EDT [facility] External Red Blood Cell (RBC) 4.66 3.80 - 5.20 10*6/uL 03/29/2023 9:26 AM EDT [facility] External Hemoglobin 14.4 12.0 - 16.0 g/dL 03/29/2023 9:26 AM EDT [facility] External Hematocrit 42.6 35.0 - 47.0 % 03/29/2023 9:26 AM EDT [facility] External MCV 92 80 - 100 fL 03/29/2023 9:26 AM EDT [facility] External MCH 31 26 - 35 pg 03/29/2023 9:26 AM EDT [facility] External MCHC 34 32 - 36 g/dL 03/29/2023 9:26 AM EDT [facility] External RDW 13.7 11.0 - 15.0 % 03/29/2023 9:26 AM EDT [facility] External Mean Platelet Volume 9.7 6.2 - 10.5 fL 03/29/2023 9:26 AM EDT [facility] External Platelets 254 130 - 400 10*3/uL 03/29/2023 9:26 AM EDT [facility] External Neutrophil# 8.9(H) 1.6 - 8.4 10*3/uL 03/29/2023 9:26 AM EDT [facility] External Lymphocyte# 2.7 0.4 - 5.1 10*3/uL 03/29/2023 9:26 AM EDT [facility] External Absolute Monocyte (Abs Dorado) 0.7 0.0 - 1.2 10*3/uL 03/29/2023 9:26 AM EDT [facility] External Eosinophils# 0.3 0.0 - 0.8 10*3/uL 03/29/2023 9:26 AM EDT [facility] External Baso# 0.1 0.0 - 0.3 10*3/uL 03/29/2023 9:26 AM EDT [facility] External Neutrophils % 70.2 42.0 - 78.0 % 03/29/2023 9:26 AM EDT [facility] External Lymphocyte % 20.9 11.0 - 47.0 % 03/29/2023 9:26 AM EDT [facility] External Monocyte % 5.6 0.0 - 11.0 % 03/29/2023 9:26 AM EDT [facility] External Eosinophil% 2.7 0.0 - 7.0 % 03/29/2023 9:26 AM EDT [facility] External Basophil % 0.6 0.0 - 3.0 % 03/29/2023 9:26 AM EDT [facility] External Nucleated RBC%-Auto 0.0 0.0 - 0.9 % 03/29/2023 9:26 AM EDT [facility] External Nucleated RBC Absolute 0.00 Not Estab. 10*3/uL 03/29/2023 9:26 AM EDT [facility] 03/29/2023 9:07 AM EDT 03/29/2023 9:22 AM EDT us Ebony Albrecht MD LAB BLOOD ORDERABLES Final Re sult [facility] [address] [place] [address], documented in this encounter Visit Diagnoses Not on filedocumented in this encounter Care Teams Toll Bridge Operator Relationship Specialty Start Date End Date Nate Mills MD [facility] [place] [address] PCP - General 09/23/20 04/02/24 Efrain Angeles MD [address] [place] [address] PCP - General 04/03/24 documented as of this encounter
--- OUTSIDE RECORDS SUMMARY | 2025-03-01 12:47 | XMS_ITS | Encounter Summary ---
Author Organization [facility] Address [address] [place] [address] Care Team Providers Care Supervisor Special Education Name Role Phone Nate Mills MD Primary Care Provider [phone] Efrain Angeles MD Primary Care Provider [phone] Encounter Details Date Type Department Care Team (Late st Contact Info) Description 03/29/2023 Orders Only [facility] [address] [place] [phone] Ebony Albrecht MD [address] [address] Social History Tobacco Use Types [...] Description 03/29/2025 9:45 AM EDT Office Visit [facility] [address] [place] [address] 03/29/2025 10:45 AM EDT Office Visit [facility] [address] [place] [address] Ebony Albrecht MD [address] [facility] [address] [place] [address] documented as of this encounter Procedures Procedure Name Priority Date/Time Associated Diagnosis Comments CEA, SERUM Routine 03/29/2023 9:07 AM EDT documented in this encounter Results * CEA, Serum (03/29/2023 9:07 AM EDT) External Carcinoembryonic Antigen 4.6 0.0 - 4.7 ng/mL 03/29/2023 9:59 AM EDT [facility] Comment: This test was performed using the Abdelrahman Awilda E801 electrochemiluminescent method. Values obtained from different assay methods cannot be used interchangeably. . 03/29/2023 9:07 AM EDT 03/29/2023 9:22 AM EDT us Ebony Albrecht MD LAB BLOOD ORDERABLES Final Re sult [facility] [address] [place] [address], documented in this encounter Visit Diagnoses Not on filedocumented in this encounter Care Teams Supervisor Special Education Relationship Specialty Start Date End Date Nate Mills MD [address] [facility] [address] [place] [address] PCP - General 09/23/20 04/02/24 Efrain Angeles MD 1210 [facility] [address] [facility] [address] [place] [address] PCP - General 04/03/24 documented as of this encounter
--- OUTSIDE RECORDS SUMMARY | 2025-03-01 12:47 | XMS_ITS | Encounter Summary ---
Author Organization [facility] Address [address] [place] [address] Care Team Providers Care Director Payer Name Role Phone Nate Mills MD Primary Care Provider [phone] Efrain Angeles MD Primary Care Provider [phone] Encounter Details Date Type Department Care Team (Late st Contact Info) Description 03/20/[address] [facility] @ [address] [phone] Ebony Albrecht MD [address] [address] Social History Tobacco Use Types [...] Description 03/29/2025 9:45 AM EDT Office Visit [facility] [address] [place] [phone] 03/29/2025 10:45 AM EDT Office Visit [facility] at [facility] [address] [place] [phone] Ebony Albrecht MD [address] [facility] [address] [place] [address] documented as of this encounter Procedures Procedure Name Priority Date/Time Associated Diagnosis Comments CBC WITH AUTO DIFFERENTIAL Routine 03/20/2021 9:07 AM EDT documented in this encounter Results * (ABNORMAL) CBC and Differential (03/20/2021 9:07 AM EDT) External WBC 10.7 3.8 - 10.8 K/uL [facility] External Red Blood Cell (RBC) 4.31 3.80 - 5.20 M/uL [facility] External Hemoglobin 13.7 12.0 - 16.0 G/DL [facility] External Hematocrit 39.4 35.0 - 47.0 % [facility] External MCV 91 80 - 100 fL [facility] External MCH 32 26 - 35 PG [facility] External MCHC 35 32 - 36 G/DL [facility] External RDW 13.1 11.0 - 15.0 % [facility] External Mean Platelet Volume 9.4 6.2 - 10.5 fL [facility] External Platelets 264 130 - 400 K/uL [facility] External Neutrophil# 6.0 1.6 - 8.4 K/uL [facility] External Lymphocyte# 2.8 0.4 - 5.1 K/uL [facility] External Absolute Monocyte (Abs [place]) 0.7 0.0 - 1.2 K/uL [facility] External Eosinophils# 1.1(H) 0.0 - 0.8 K/uL [facility] External Baso# 0.1 0.0 - 0.3 K/uL [facility] External Neutrophils % 56.2 42.0 - 78.0 % [facility] External Lymphocyte % 26.2 11.0 - 47.0 % [facility] External Monocyte % 6.2 0.0 - 11.0 % [facility] External Eosinophil% 10.6(H) 0.0 - 7.0 % [facility] External Basophil % 0.8 0.0 - 3.0 % [facility] External Nucleated RBC%-Auto 0.0 0.0 - 0.9 % [facility] External Nucleated RBC Absolute 0.00 Not Estab. K/uL [facility] 03/20/2021 9:07 AM EDT 03/20/2021 9:25 AM EDT us Ebony Albrecht MD LAB BLOOD ORDERABLES Final Re sult Performing Organization Address City/State/[facility] Co de Phone Number [facility] [address] [place] [address], documented in this encounter Visit Diagnoses Not on filedocumented in this encounter Care Teams Director Payer Relationship Specialty Start Date End Date Nate Mills MD 1210 [facility] [address] [place] [address] PCP - General 09/23/20 04/02/24 Efrain Angeles MD [address] [facility] [address] [place] [id number] PCP - General 04/03/24 documented as of this encounter
--- OUTSIDE RECORDS SUMMARY | 2025-03-01 12:47 | XMS_ITS | Encounter Summary ---
Author Organization [facility] Address [address] [place] [address] Care Team Providers Care Appeals Examiner Name Role Phone Nate Mills MD Primary Care Provider [phone] Efrain Angeles MD Primary Care Provider [phone] Encounter Details Date Type Department Care Team (Late st Contact Info) Description 03/20/2021 Orders Only [facility] @ [address] [phone] Ebony Albrecht MD [address] [address] Social History Tobacco Use Types [...] Description 03/29/2025 9:45 AM EDT Office Visit [facility] [address] [place] [phone] 03/29/2025 10:45 AM EDT Office Visit [facility] [address] [place] [phone] Ebony Albrecht MD [address] [phone] documented as of this encounter Procedures Procedure Name Priority Date/Time Associated Diagnosis Comments COMPREHENSIVE METABOLIC PANEL, PLASMA Routine 03/20/2021 9:07 AM EDT documented in this encounter Results * (ABNORMAL) Comprehensive Metabolic Panel, Plasma (03/20/2021 9:07 AM EDT) External Glucose 91 74 - 100 mg/dL [facility] External BUN 18 6 - 20 mg/dL [facility] External Creatinine Blood 0.69 0.50 - 0.95 mg/dL [facility] External BUN/Creat Ratio 26(H) 10 - 20 (calc) [facility] External Sodium 143 136 - 145 mmol/L [facility] External Potassium 3.8 3.4 - 5.0 mmol/L [facility] External Chloride 104 98 - 107 mmol/L [facility] External Carbon Dioxide 29 22 - 31 mmol/L [facility] External Anion Gap (AG) 10 7 - 25 (calc) [facility] External Calcium 10.0 8.6 - 10.2 mg/dL [facility] External Total Protein 6.8 6.4 - 8.3 g/dL [facility] External Albumin 4.2 3.5 - 5.2 g/dL [facility] External Globulin 2.6 1.5 - 4.5 g/dL (calc) [facility] External Albumin/Globulin Ratio 1.6 1.1 - 2.5 (calc) [facility] External Bilirubin Total 0.4 0.1 - 1.2 mg/dL [facility] External Alkaline Phosphatase 98 35 - 106 U/L [facility] External AST (SGOT) 21 0 - 32 U/L [facility] External ALT (SGPT) 16 0 - 33 U/L [facility] External EGFR (If AFR/AM) 101 >=60 [facility] External Estimated GFR 87 >=60 [facility] Comment: NOTE Chronic kidney disease is defined as kidney damage for more than 3 months or a GFR less than 60 mL/min/1.73 m2 for greater than 3 months. This calculation has not been validated in women. For pediatric patients refer to [employer] https://www.kidney.org/professionals/KDOQI/gfr_calculatorPed 03/20/2021 9:07 AM EDT 03/20/2021 9:22 AM EDT us Ebony Albrecht MD LAB BLOOD ORDERABLES Final Re sult [facility] [address] [place] [address], documented in this encounter Visit Diagnoses Not on filedocumented in this encounter Care Teams Appeals Examiner Relationship Specialty Start Date End Date Nate Mills MD 1210 [facility] [address] [place] [address] PCP - General 09/23/20 04/02/24 Efrain Angeles MD 1210 [facility] [address] [place] [address] PCP - General 04/03/24 documented as of this encounter
--- OUTSIDE RECORDS SUMMARY | 2025-03-01 12:47 | XMS_ITS | Encounter Summary ---
Author Organization [facility] Address [address] [place] [address] Care Team Providers Care Metallography Teacher Name Role Phone Nate Mills MD Primary Care Provider [phone] Efrain Angeles MD Primary Care Provider [phone] Encounter Details Date Type Department Care Team (Late st Contact Info) Description 03/14/2021 Orders Only [facility] [address] [place] [phone] Efrain La PA [address] [place] [address] Social History Tobacco Use Types [...] Description 03/29/2025 9:45 AM EDT Office Visit [facility] [address] [place] [phone] 03/29/2025 10:45 AM EDT Office Visit [facility] at [place] [address] [place] [phone] Ebony Albrecht MD 5 [facility] [address] [place] [address] documented as of this encounter Procedures Procedure Name Priority Date/Time Associated Diagnosis Comments SEDIMENTATION RATE, AUTOMATED Routine 03/14/2021 1:48 PM EDT documented in this encounter Results * Sedimentation Rate, Automated (03/14/2021 1:48 PM EDT) External Erythrocyte Sedimentation Rate 25 0 - 29 MM/HR [facility] 03/14/2021 1:48 PM EDT 03/14/2021 2:10 PM EDT Efrain KIRBY LAB BLOOD ORDERABLES Final R esult Performing Organization Address City/State/[facility] Co de Phone Number [facility] [address] [place] [address], documented in this encounter Visit Diagnoses Not on filedocumented in this encounter Care Teams Metallography Teacher Relationship Specialty Start Date End Date Nate Mills MD 1210 [facility] [address] [place] [id number] PCP - General 09/23/20 04/02/24 Efrain Angeles MD 1210 [facility] [address] [place] [id number] PCP - General 04/03/24 documented as of this encounter
--- OUTSIDE RECORDS SUMMARY | 2025-03-01 12:47 | XMS_ITS | Encounter Summary ---
Author Organization [facility] Address [address] [place] [address] Care Team Providers Care Icer Machine Name Role Phone Nate Mills MD Primary Care Provider [phone] Efrain Angeles MD Primary Care Provider [phone] Encounter Details Date Type Department Care Team (Late st Contact Info) Description 03/20/2021 Orders Only [facility] @ [address] [phone] Ebony Albrecht MD [address] [address] Social History Tobacco Use Types [...] Description 03/29/2025 9:45 AM EDT Office Visit [facility] [address] [place] [phone] 03/29/2025 10:45 AM EDT Office Visit [facility] [address] [place] [phone] Ebony Albrecht MD [address] [facility] [address] [place] [address] documented as of this encounter Procedures Procedure Name Priority Date/Time Associated Diagnosis Comments CEA, SERUM Routine 03/20/2021 9:07 AM EDT documented in this encounter Results * (ABNORMAL) CEA, Serum (03/20/2021 9:07 AM EDT) External Carcinoembryonic Antigen 5.0(H) 0.0 - 4.7 ng/mL [facility] Comment: This test was performed using the Abdelrahman Awilda E801 electrochemiluminescent method. Values obtained from different assay methods cannot be used interchangeably. . 03/20/2021 9:07 AM EDT 03/20/2021 9:50 AM EDT us Ebony Albrecht MD LAB BLOOD ORDERABLES Final Re sult [facility] [address] [place] [address], documented in this encounter Visit Diagnoses Not on filedocumented in this encounter Care Teams Icer Machine Relationship Specialty Start Date End Date Nate Mills MD 1210 [facility] [address] [place] [address] PCP - General 09/23/20 04/02/24 Efrain Angeles MD 12[address] [facility] [address] [place] [address] PCP - General 04/03/24 documented as of this encounter
--- OUTSIDE RECORDS SUMMARY | 2025-03-01 12:48 | XMS_ITS | Continuity of Care Document ---
Author Organization [facility], ENT SB Address [address] [place] [address] Care Team Providers Care Administrative Accountant Name Role Phone MARIAN HICKS Hematology/Oncology [phone] [address]OWSER Primary Care Provider Assessment No assessment recorded. 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 From Automated Load;Provi alex: Samira Oh;Sta tus: Active Not Available [facility] 6 10:00:49 Idiopathi c osteoarth ritis 320377576 Active 2015 From Automated Load;Provi alex: Samira Oh;Sta tus: Active Not Available [facility] 6 10:00:49 Acquired trigger finger 8673044 Active 2015 From Automated Load;Provi alex: Binta Hatch;St atus: Active Not Available [facility] 6 10:00:49 Low back pain 256268115 Active 2015 Provider: Mckayla Sawant;Carlito tus: Active Not Available [facility] 6 10:00:49 Pain in right lower limb 754080016 Active 2015 From Automated Load;Provi alex: Mckayla Sawant;Sta tus: Active Not Available [facility] 7 08:17:17 Problem Notes None recorded. Procedures Surgical History Date Name Laterality Status Provider Name and Address Organization Details Recorded Time 12/03/19 Audiogram completed BOB FERNANDEZ, AUD [address] [place], [address], [facility] 12/02/2024 14:15:27 02/04/20 24 Cervical Epidural Steroid Injection - Edith completed BINTA VALLE MD [address] [place], [address], [facility] 02/04/2024 16:42:53 12/10/19 24 Lumbar Epidural Steroid Injection - Edith completed BINTA VALLE MD [address] [place], [address], [facility] 12/10/2023 13:08:38 10/15/19 24 Injection Joint/Bursa, Major completed Steve Jiang [facility] 11/03/2023 10:26:01 07/17/20 23 PTNM; single treatment completed Lissette Llanes [facility] 07/17/2023 10:20:48 07/10/20 23 PTNM; single treatment completed Lissette Llanes [facility] 07/10/2023 10:57:02 07/03/20 23 PTNM; single treatment completed Lissette Llanes [facility] 07/03/2023 10:00:46 06/26/20 Tympanogram completed BOB FERNANDEZ, AUD [address] [place], [address], [facility] 06/26/2023 14:08:53 06/26/20 Audiogram completed BOB FERNANDEZ AUD [address] [place], [address], [place] [facility] 06/26/2023 13:46:18 06/26/20 PTNM; single treatment completed Lissette LEIJA - [facility] 06/26/2023 09:57:04 06/19/20 PTNM; single treatment completed Lissette Llanes [place] [facility] 06/19/2023 10:02:20 06/18/20 Injection Joint/Bursa, Major completed SAMIRA VELASQUEZ MD [address] [place], [address], [facility] 06/18/2023 18:09:20 06/12/20 PTNM; single treatment completed Lissette Llanes [place] [facility] 06/12/2023 09:32:33 06/05/20 PTNM; single treatment completed Lissette Llanes [place] [facility] 06/05/2023 10:11:13 05/22/20 PTNM; single treatment completed Lissette Llanes [place] [facility] 05/22/2023 09:36:10 05/15/20 PTNM; single treatment completed Lissette Llanes [place] [facility] 05/15/2023 10:24:29 05/08/20 PTNM; single treatment completed Lissette Llanes [place] [facility] 05/08/2023 09:34:42 05/01/20 PTNM; single treatment completed Lissette Llanes [place] [facility] 05/01/2023 09:38:00 04/24/20 PTNM; single treatment completed Lissette Llanes [place] [facility] 04/24/2023 10:00:07 03/19/20 Injection Joint/Bursa, Major completed SAMIRA VELASQUEZ MD [address] [place], [address], [place] [facility] 03/19/2023 19:21:27 01/03/20 PTNM; single treatment completed Lissette Llanes [place] [facility] 01/02/2023 14:15:39 11/29/19 PTNM; single treatment completed Lissette Llanes [place] [facility] 11/28/2022 11:13:43 11/07/19 23 PNE Implantation; Sacral Nerve completed Lissette Llanes [facility] 11/07/2022 15:36:06 10/10/19 23 PTNM; single treatment completed Lissette Llanes [facility] 10/10/2022 14:05:47 08/28/20 22 PTNM; single treatment completed Lissette Llanes [facility] 08/28/2022 16:08:39 07/18/20 22 PTNM; single treatment completed Lissette Llanes [facility] 07/18/2022 14:06:01 06/12/20 22 PTNM; single treatment completed Lissette Llanes [facility] 06/12/2022 09:28:34 04/30/20 PTNM; single treatment completed Lissette Llanes [facility] 04/30/2022 09:46:41 03/28/20 PTNM; single treatment completed Lissette Llanes [facility] 03/28/2022 12:10:29 02/03/20 PTNM; single treatment completed Marian Zamorano [facility] 02/02/2022 12:54:09 01/06/20 PTNM; single treatment completed Lissette Llanes [facility] 01/05/2022 09:43:05 12/09/19 PTNM; single treatment completed Lissette Llanes [facility] 12/08/2021 09:16:36 11/03/19 22 Orthotic, HFO, Static Custom completed MARIANO LUCERO JR, OTR/L, T [address] [place], [address], [facility] 11/03/2021 10:19:47 11/01/19 22 PTNM; single treatment completed Shamika Cook [facility] 11/01/2021 14:15:16 09/27/19 22 PTNM; single treatment completed Lissette Llanes [facility] 09/27/2021 13:44:55 08/30/20 21 PTNM; single treatment completed Lissette Llanes [facility] 08/30/2021 13:49:55 11/10/20 21 PTNM; single treatment completed Lissette Llanes [place] [facility] 08/02/2021 13:39:59 07/05/20 PTNM; single treatment completed Fredericeriee Hagerhill [place] [facility] 07/05/2021 14:16:42 06/08/20 Audiogram completed BOB REBECCA, AUD [address] [place], [address], [place] [facility] 06/08/2021 14:36:24 06/07/20 PTNM; single treatment completed Lissette Llanes [place] [facility] 06/07/2021 13:51:12 05/10/20 PTNM; single treatment completed Lissette Llanes [place] [facility] 05/10/2021 13:50:25 04/12/20 PTNM; single treatment completed Fredericeriee Hagerhill [place] [facility] 04/12/2021 14:41:42 03/15/20 PTNM; single treatment completed Shamika Cook [place] [facility] 03/15/2021 14:14:49 02/16/20 PTNM; single treatment completed Marian Zamorano [place] [facility] 02/15/2021 14:11:53 01/19/20 PTNM; single treatment completed Lissette Llanes [place] [facility] 01/18/2021 15:01:10 12/15/19 PTNM; single treatment completed Lissette Llanes [place] [facility] 12/14/2020 14:29:21 11/16/19 PTNM; single treatment completed Lissette Llanes [place] [facility] 11/16/2020 14:08:30 10/19/19 PTNM; single treatment completed Lissette Llanes [place] [facility] 10/19/2020 14:14:48 09/21/20 PTNM; single treatment completed Fredericeriee Hagerhill [place] [facility] 09/21/2020 14:10:25 08/17/20 PTNM; single treatment completed Lissette Llanes [place] [facility] 08/17/2020 12:42:47 07/20/20 PTNM; single treatment completed Lissette Llanes [place] [facility] 07/20/2020 14:31:41 06/22/20 PTNM; single treatment completed Lissette Llanes [place] [facility] 06/22/2020 15:07:04 05/25/20 PTNM; single treatment completed Lissette Llanes [place] [facility] 05/25/2020 14:54:12 04/27/20 PTNM; single treatment completed Lissette Llanes [place] [facility] 04/27/2020 15:14:35 03/30/20 PTNM; single treatment completed Nancyee Ira [place] [facility] 03/30/2020 13:54:01 02/24/20 PTNM; single treatment completed Lissette Llanes [place] [facility] 02/24/2020 12:22:05 01/28/20 PTNM; single treatment completed Lissette Llanes [place] [facility] 01/28/2020 14:31:41 12/02/19 PTNM; single treatment completed Lissette Llanes [place] [facility] 12/02/2019 13:41:35 10/28/19 PTNM; single treatment completed Lissette Llanes [place] [facility] 10/28/2019 13:34:17 09/30/19 PTNM; single treatment completed Lissette Llanes [place] [facility] 09/30/2019 13:36:55 08/26/20 PTNM; single treatment completed Lissette Llnaes [place] [facility] 08/26/2019 14:23:11 07/29/20 PTNM; single treatment completed Elton Roth [place] [facility] 07/29/2019 13:40:34 06/24/20 PTNM; single treatment completed Lissette Llanes [place] [facility] 06/24/2019 13:47:33 05/27/20 PTNM; single treatment completed Aby Garland [place] [facility] 05/27/2019 13:26:10 04/22/20 PTNM; single treatment completed Lissette Llanes [place] [facility] 04/22/2019 13:48:48 03/25/20 PTNM; single treatment completed Lissette Llanes [place] [facility] 03/25/2019 13:38:21 02/19/20 PTNM; single treatment completed Lissette Llanes [place] [facility] 02/18/2019 13:36:03 01/22/20 19 PTNM; single treatment completed Lissette Llanes [place] [facility] 01/21/2019 13:28:09 12/25/19 19 PTNM; single treatment completed Deseriee [place]hill [place] [facility] 12/24/2018 13:27:25 11/27/19 19 PTNM; single treatment completed Lissette Llanes [place] [facility] 11/26/2018 13:23:30 10/29/19 19 PTNM; single treatment completed Lissette Llanes [place] [facility] 10/29/2018 13:24:59 10/01/19 19 PTNM; single treatment completed Lissette Llanes [place] [facility] 10/01/2018 13:37:18 09/03/20 18 PTNM; single treatment completed Lissette Llanes [place] [facility] 09/03/2018 14:01:41 08/06/20 18 PTNM; single treatment completed Deseriee [place] [facility] 08/06/2018 13:24:22 07/09/20 18 PTNM; single treatment completed Deseriee [place] [facility] 07/09/2018 13:53:27 06/11/20 18 PTNM; single treatment completed Deseriee [place] [facility] 06/11/2018 13:43:34 05/14/20 18 PTNM; single treatment completed Lissette Llanes [place] [facility] 05/14/2018 13:35:13 04/16/20 18 PTNM; single treatment completed Lissette Llanes [place] [facility] 04/16/2018 13:40:58 03/19/20 18 PTNM; single treatment completed Lissette Llanes [place] [facility] 03/19/2018 15:35:10 02/20/20 18 PTNM; single treatment completed Lissette Llanes [place] [facility] 02/19/2018 13:52:08 02/13/20 18 PTNM; single treatment completed Lissette Llanes [place] [facility] 02/12/2018 14:51:22 02/06/20 18 PTNM; single treatment completed Lissette Llanes [place] [facility] 02/05/2018 14:19:59 01/30/20 18 PTNM; single treatment completed Lissette Llanes [facility] 01/29/2018 14:04:02 01/23/20 18 PTNM; single treatment completed Lissette Llanes [facility] 01/22/2018 13:51:44 01/16/20 18 PTNM; single treatment completed Lissette Coleman [facility] 01/15/2018 14:31:08 01/09/20 18 PTNM; single treatment completed Lissette Llanes [facility] 01/08/2018 14:04:38 01/02/20 18 PTNM; single treatment completed Lissette Shraddha [facility] 01/01/2018 14:04:04 12/26/19 18 PTNM; single treatment completed Lissette Llanes [facility] 12/25/2017 13:48:37 12/19/19 18 PTNM; single treatment completed Lissette Coleman [facility] 12/18/2017 14:07:42 12/14/19 18 Injection Joint/Bursa, Major completed SAMIRA VELASQUEZ MD [address] [place], [address], [facility] 12/13/2017 08:27:52 12/12/19 18 PTNM; single treatment completed iLssette Llanes [facility] 12/11/2017 14:38:33 12/05/19 18 PTNM; single treatment completed Lissette Shraddha [facility] 12/04/2017 14:31:53 11/20/19 17 Injection Joint/Bursa, Major, w/o US completed SAMIRA VELASQUEZ MD [address] [place], [address], [place] [facility] 11/20/2016 16:42:55 09/23/19 16 Back Surgery completed Mita Omalley [facility] 11/27/2023 09:40:35 Total hip arthroplasty completed Pawan Storm [facility] 02/13/2019 08:01:33 Total Colectomy completed Мария Charles [facility] 01/20/2018 14:24:43 Tonsillectomy completed Мария Charles [facility] 01/20/2018 14:24:49 Hip Replacement completed Мария Charles [place] [facility] 01/20/2018 14:25:08 Imaging Results None recorded. Procedure [...] Tobacco Smoking Status Former Smoker Cleo Ibarra [facility], [facility] 09/21/2016 10:43:51 Accident Related Injury No Information [...] available 01/14/2024 What Is Your Relationship Status? [email or web address] Information not available 11/27/2023 How Much Tobacco Do You Smoke? No [email or web address] Information not available 06/10/2020 Has Tobacco Cessation Counseling Been Provided? No [email or web address] Information not available 11/27/2023 Work Related Injury? [...] History Condition Response Other N Gout N Anxiety/Depression N Thyroid Disease N Kidney Stones N Hernia N COPD N Glaucoma N Pneumonia N Anesthesia Complications N Dizziness N Hearing Loss Y Arthritis Y Head Injury/Concussion Y Blood Clot N Cancer Y Stroke N Blood Thinners N Alcohol Overuse/Alcohol Abuse N High Cholesterol N Liver Disease N Kidney Disease N Allergies/Hayfever N Heart Conditions N Pressure in ears N Alzheimer's N Migraines N Skin Problems N Immune System Disorder N Heart Attack (MS) N Mental Illness N Neurological Problems N Diabetes N Rheumatic Fever N Noise exposure (guns, equipment etc) N Bleeding Disorder N Seizures/Epilepsy N Tuberculosis N Genetic Disorder N AIDS/HIV N Tinnitus Y Asthma N Sleep Apnea N Included as Review of Systems Y Heart Disease N Chronic Ear Infections N Hypertension Y Osteoporosis N Gynecological HistoryNo gynecological history recorded. Obstetrics History GPAL:G 0 P 0 0 0 0 Past Encounters Encounter ID Performer Location Encounter Start Date Encounter Closed Date Diagnosis/Indication Diagnosis SNOMED-CT Code Diagnosis ICD10 Code Diagnosis Note [id number] [place] [address] [place] [address] 1 12/02/2024 13:55:48 12/02/2024 15:43:15 Sensorineural hearing loss of bilateral ears 726664964 H90.3 [id number] BOB F[facility]NANDEZ [facility] [address] [place] [address] 1 12/09/2024 14:09:27 12/09/2024 16:40:08 [id number] GILDA ALCALA AUD [place] [address] [place] [address] 1 12/31/2024 08:22:27 12/31/2024 12:09:11 Health Concerns Section Related Observation LastModified by Organization Detai ls LastModified Time None Recorded Concern Status LastModified by Organization Details LastModified Time None Recorded Payers Encounter Date Sequence Insurance Name Policy Number Policy Lindsay Covered Member ID Lindsay Member ID Guarantor Name 12/31/2024 1 [place] Alyssia Holly [id number] Alyssia Holly 12/31/2024 2 [facility]IC[facility] SUPPLE[facility]) Alyssia Holly [id number] Alyssia Holly OBGyn Episode No OBEpisode recorded.
--- OUTSIDE RECORDS SUMMARY | 2025-03-01 12:49 | XMS_ITS | Patient Health Record ---
Author Organization [facility] Address [address] [place] [id number] Care Team Providers Care Resource Efficiency Manager Name Role Phone Kathryn Angeles Primary Care Provider [phone] Juani Saleem Unavailable [phone] Allergies Allergen (clinical drug ingredient) Drug/Non Drug Allergy documented on EMR Reaction Allergy Type Onset Date Status nickel HUGO (uncoded) Unknown Allergy Act tamar Polypropylene glycol POLYPROPYLENE GLYCO L (uncoded) Unknown Allergy Active Levaquin Myalgias Drug Allergy Active Retinoic Acid Unknown Drug Allergy Act tamar Results Component Value Reference Range Notes CBC Venipuncture (in house) Reviewed date:09/08/2024 10:11:08 AM Interpretation: Performing Lab: Notes/Report: wbc 21.8 3.5 - 10 lymph 14.0% 15 - 50 mid 3.9% 2 - 15 gran 82.1% 35 - 80 rbc 4.28 3.5 - 5.5 hgb 13.0 11.5 - 16.5 hct 38.8 35 - 55 mcv 90.6 75 - 100 mch 30.5 25 - 35 mchc 33.6 31 - 38 platlet 428 100 - 400 CT Scan : Chest w/ & w/o con trast Reviewed date:08/25/2024 08:46:58 AM Interpretation:bronchitis, bilateral breast implant rupture Performing Lab: Notes/Report: bronchitis, bilateral breast implant rupture H-BMP Reviewed date:09/24/2024 09:20:53 AM Interpretation: Performing Lab: Notes/Report: H-BUN/CREAT Reviewed date:08/24/2024 09:14:07 AM Interpretation:Normal Performing Lab: Notes/Report: BUN 13 7-17 mg/dl CREATT 0.70 0.52-1.04 mg/dl GFRAA 99 >60 ML/MIN EGFR 82 >60 ml/min CBC Fingerstick (in house) Reviewed date:01/15/2025 08:37:04 [...] 124 Performing Lab: Notes/Report: Test performed by [facility] [address] [place] [address] , [address], [place] [address] Rafi Forbes MD, Data Technical Lead CLIA: [id number] Sodium 140 135-145 mmol/L Potassium 4.2 3.5-5.3 [...] Interpretation:Normal Performing Lab: Notes/Report: Test performed by [facility] [address] [place] [address] Dr[address], [place] [address] Rafi Forbes MD, Data Technical Lead CLIA: [id number] Lipase 25.6 13.0-60.0 u/L Ultrasound : Right [place] drvasyl Reviewed date:02/05/2025 01:15:25 PM Interpretation:fatty liver, sludge and stones Performing Lab: Notes/Report: fatty liver, sludge and stones P-Comprehensive Metabolic Pa macario (CMP) Reviewed date:04/20/2024 10:01:19 AM Interpretation:gluc 110, alk phos 128 Performing Lab: Notes/Report: Test performed by [facility] [address] [place] [address] , [address], [place] [address] Rafi Forbes MD, Data Technical Lead CLIA: [id number] Sodium 143 135-145 mmol/L Potassium 3.8 3.5-5.3 mmol/L Chloride 105 97-108 mmol/L CO2 27 22-32 mmol/L Glucose 110 65-99 mg/dL BUN 14 8-23 mg/dL Creatinine 0.67 0.50-1.00 mg/dL Calcium 9.4 8.6-10.4 mg/dL eGFR by Creatinine 91 >59 mL/min/1.73m2 Protein 6.4 6.0-8.3 g/dL Albumin 3.8 3.5-5.3 g/dL Alkaline Phosphatase 128 35-121 IU/L ALT (SGPT) 17 <5-47 IU/L AST (SGOT) 20 <5-40 IU/L Bilirubin, Total 0.4 <0.2-1.2 mg/dL A/G Ratio 1.5 1.1-2.5 mg/dL H-CBC Reviewed date:09/24/2024 09:21:35 AM Interpretation:rbc 4, hct 36.7, mpv 11, EO 0.8 Performing Lab: Notes/Report: WBC 10.0 4.8-10.8 K/mm3 RBC 4.00 4.20-5.40 M/mm3 HGB 12.2 12.2-16.2 g/dL HCT 36.7 37.0-47.0 % MCV 91.8 81-99 fl MCH 30.5 27.0-31.2 pg MCHC 33.2 31.8-35.4 g/dL RDW 12.7 11.5-17.5 % PLT 322 142-424 K/mm3 MPV 11.0 7.4-10.4 fl NE% 57.4 37.0-80.0 % LY% 28.3 10-50 % MO% 5.7 1.7-9.3 % EO% 7.6 0.1-12.0 % BA% 0.8 0.1-2.0 % NE# 5.8 1.8-7.8 K/mm3 LY# 2.8 0.7-4.5 K/mm3 MO# 0.6 0.1-1.0 K/mm3 EO# 0.8 0.0-0.4 K/mm3 BA# 0.1 0-0.2 K/mm3 H-CMP Reviewed date:09/24/2024 09:21:35 AM Interpretation:bun 24 Performing Lab: Notes/Report: NA 139 136-145 mmol/L K 3.8 3.5-5.1 mmoL/L CL 104 98-107 mmol/L CO2 29 22.0-30.0 mmol/L GAP 9.8 5-15 mEq/L BUN 24 7-17 mg/dl CREATT 0.80 0.52-1.04 mg/dl GFRAA 85 >60 ML/MIN EGFR 70 >60 ml/min GLU 82 74-100 mg/dl CA 9.6 8.4-10.2 mg/dl BILIT 0.5 0.2-1.3 mg/dl AST 36 14-36 U/L ALT 24 12-78 U/L TP 6.3 6.3-8.2 g/dl ALB 4.0 3.5-5.0 g/dl GLOB 2.3 1.3-3.2 g/dL AGRATIO 1.7 1.1-1.8 ALP 91 38-126 U/L Medications Medication SIG (Take, Route, Frequency, Duration) Notes Start Date End Date Status Potassium Chloride ER 10 MEQ Take 1 tablet by mouth twice daily for 30 Active Losartan Potassium 50 MG Take 1/2 (one-h rosalee) tablet by mouth once daily for 90 Active Konsyl Daily Fiber 100 % 1 packet with 8 ounces of liquid as needed Orally Once a day for 30 day(s) 01/14/2025 Active Diclofenac Sodium ER 100 MG TAKE 1 TABLE T BY MOUTH NEEDED ONCE DAILY for 90 Active Triamterene-HCTZ 37.5-25 MG Take 1 table t by mouth once daily for 90 Active Albuterol Sulfate HFA 108 (90 Base) MCG/ACT 1 puff as needed Inhalation four times a day as needed Active Advair Diskus 100-50 MCG/ACT 1 puff [...] e a day for 30 day(s) Active Immunizations Vaccine Route Administration Date Status Comme nts COVID 19 Moderna Unknown 09/28/2020 Administered COVID 19 Moderna IM Intramuscular 10/26/2020 Administered COVID 19 Moderna Unknown 06/14/2021 Administered Fluzone High Dose (65yr and older) IM Intramuscular 06/29/2015 Administered Fluzone High Dose (65yr and older) IM Intramuscular 06/27/2016 Administered Fluzone High Dose (65yr and older) IM Intramuscular 07/31/2017 Administered Fluzone High Dose (65yr and older) IM Intramuscular 07/28/2018 Administered Fluzone High Dose (65yr and older) IM Intramuscular 07/22/2019 Administered Fluzone High Dose (65yr and older) IM Intramuscular 05/27/2020 Administered Fluzone High Dose (65yr and older) Unknown 09/21/2021 Administered Fluzone High Dose (65yr and older) IM Intramuscular 06/11/2022 Administered H1N1 flu vaccine IM Intramuscular 10/12/2009 Administered Hepatitis A (adult) Unknown 08/19/2019 Administered PNEUMOVAX 23 VACCINE IM Intramuscular 09/26/2016 Administe red Prevnar (PCV13) IM Intramuscular 06/29/2015 Administered Shingrix IM Intramuscular 05/06/2020 Administered Shingrix Unknown 05/06/2020 Administered Shingrix IM Intramuscular 07/11/2020 Administered Tetanus Tdap-Adacel (over 7yrs) IM Intramuscular 06/23/2012 Administered xAdministration of injection SC Subcutaneous 10/28/2013 Administered xFlu shot-36 months and older IM Intramuscular 08/08/2011 Administered xFluzone (6mos and older)-trivalent IM Intramuscular 08/27/2013 Administered xFluzone Intradermal (18-64yrs)-trivalent ID Intradermal 06/17/2012 Administered xFluzone Intradermal (18-64yrs)-trivalent ID Intradermal 06/30/2014 Administered Problems Problem Type SNOMED Code ICD Code Onset Dates Problem Status W/U Status Risk Notes Problem 369480217 Low back pain (M54.5) Active confirme d Problem Sciatica (52212384) Sciatica (M54.30) Active confirmed Problem 37070744 Essential hypertension (I10) Active confirmed Problem 212696919 Diverticulitis (K57.92) Active confirmed Problem 421446188 Hair loss (L65.9) Active confirmed Problem 743174716 Bandemia (D72.825) Active confirmed Problem 812460412 Mixed hyperlipid emia (E78.2) Active confirmed Problem Other hyperlipid emia (E78.4) Active confirmed Problem 24396859 Other chronic pa in (G89.29) Active confirmed Problem 16710858 Chronic maxillar y sinusitis (J32.0) Active confirmed Problem 01515759 Centrilobular emphysema (J43.2) Active confirmed Problem 10497173 Anosmia (R43.0) Active confirmed Problem 013121655 Breast implant s tatus (Z98.82) Active confirmed Problem 49320018 Constipation by delayed colonic transit (K59.01) Active confirmed Problem 649601855 Myofasciitis (M60.9) Active confirmed Problem 58223615 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) Active confirmed Problem 792367021 Hip joint replac ement status (Z96.649) Active confirmed Problem 063869595 Spondylolisthesi s (M43.10) Active confirmed Problem 33121109 Aortic valve sclerosis (I35.8) Active confirmed Problem 744982947 History of back surgery (Z98.890) Active confirmed Problem 935462770 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.46) Active confirmed Problem 31622763 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) Active confirmed Problem 934626204 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) Active confirmed Problem 862529774 Pedal edema (R60.0) Active confirmed Problem 383184627 Moderate persist ent asthmatic bronchitis with exacerbation (J45.41) Active confirmed Problem 367192019 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) Active confirmed Problem 07752387 Extremity cyanos is (R23.0) Active confirmed Problem 178450776 Breast implant rupture, initial encounter (T85.43XA) Active confirmed Problem 371170464 Breast implant rupture, subsequent encounter (T85.43XD) Active confirmed Vital Signs Heart Rate 66 /min 02/01/2025 Blood pressure diastolic 62 mm Hg 02/01/2025 Height 66 in 02/01/2025 Blood pressure systolic 130 mm Hg 02/01/2025 Weight 156.2 lbs 02/01/2025 BMI 25.21 kg/m2 02/01/2025 Encounters Encounter Location Date Provider Diagnosis [facility] [address] [place], [place] [id number] 03/09/2024 Kathryn Angeles Breast implant ruptu re, subsequent encounter T85.43XD and Hair loss L65.9 [facility] [address] [place], [place] [id number] 03/24/2024 Juani Saleem Acute upper respirat ory infection J06.9 and COVID-19 U07.1 [facility] [address] [place], [place] [id number] 04/16/2024 Kathryn Angeles Bronchitis J40 and COVID-19 U07.1 [facility] [address] [place], [place] [id number] 05/28/2024 Kathryn Angeles Essential hypertensi on I10 ; Other chronic pain G89.29 ; Centrilobular emphysema J43.2 ; Persistent cough R05.3 and Actinic keratosis L57.0 [facility] [address] [place] [id number] 08/06/2024 Kathryn Angeles Persistent cough R05 .3 [facility] [address] [place], [place] [id number] 08/27/2024 Kathryn Angeles Bronchitis J40 [facility] [address] [place], [place] [id number] 09/07/2024 Kathryn Angeles Essential hypertensi on I10 ; Bronchitis J40 ; Diverticulitis K57.92 and Bandemia D72.825 [facility] [address] [facility] [address] [place], [place] [id number] 09/21/2024 Kathryn Angeles Essential hypertensi on I10 ; Centrilobular emphysema J43.2 and Bandemia D72.825 [facility] [address] [facility] [address] [place], [place] [id number] 11/23/2024 Kathryn Angeles Hair loss L65.9 and Essential hypertension I10 [facility] [address] [place], [place] [id number] 02/01/2025 Kathryn Angeles Symptomatic cholelithiasis K80.20 [facility] [address] [facility] [address] [place] [id number] 01/14/2025 J Gabriel Angeles Dyspepsia R10.13 ; Centrilobular emphysema J43.2 and BMI 25.0-25.9,adult Z68.25 [facility] [address] [facility] [address] [place] [id number] 03/23/2024 Kathryn Angeles [facility] [address] [facility] [address] [place] [id number] 03/24/2024 Juani Saleem [facility] [address] [facility] [address] [place] [id number] 04/20/2024 Kathryn Angeles [facility] [address] [place] [id number] 2024 Kathryn Angeles [facility] [address] [facility] [address] [place] [id number] 2024 Kathryn Angeles [facility] [address] [place] [id number] 2024 Kathryn Angeles [facility] [address] [place] [id number] 08/11/2024 Kathryn Angeles [facility] [address] [place] [id number] 08/19/2024 Kathryn Angeles Essential hypertensi on I10 [facility] [address] [place] [id number] 08/25/2024 Kathryn Angeles [facility] [address] [place] [id number] 08/28/2024 J Gabriel Angeles [facility] [address] [place] [id number] 09/24/2024 Kathryn Angeles [facility] [address] [place] [id number] 01/22/2025 Kathryn Angeles [facility] [address] [place] [id number] 02/05/2025 Kathryn Angeles Assessments Encounter Date Diagnosis (ICD Code) Assessment Notes Treatment Notes Treatment Clinical Notes Section Notes 03/09/2024 Hair loss (ICD-10 - L65.9) 03/09/2024 Breast implant rupture, subsequent encounter (ICD-10 - T85.43XD) 03/24/2024 Acute upper respiratory infection (ICD-10 - J06.9) Discussed conservative measures at this time. Very strict return to work precautions given. Reviewed isolation precautions with patient to start ZINC, Vit D and Cfl, fluids, rest, supportive measures for fever/symptom relief; encouraged to curtail all activity for the rest of the week 03/24/2024 COVID-19 (ICD-10 - U07.1) 04/16/2024 Bronchitis (ICD-10 - J40) Trelegy inhaler sample given 04/16/2024 COVID-19 (ICD-10 - U07.1) 05/28/2024 Essential hypertension (ICD-10 - I10) I have no samples of Trelegy, but gave sample of Breztri with instruction on use. 05/28/2024 Other chronic pain (ICD-10 - G89.29) 08/06/2024 Persistent cough (ICD-10 - R05.3) 08/19/2024 Essential hypertension (ICD-10 - I10) 08/27/2024 Bronchitis (ICD-10 - J40) 09/07/2024 Essential hypertension (ICD-10 - I10) 09/21/2024 Centrilobular emphysema (ICD-10 - J43.2) 11/23/2024 Essential hypertension (ICD-10 - I10) 11/23/2024 Hair loss (ICD-10 - L65.9) 01/14/2025 Dyspepsia (ICD-10 - R10.13) Recommend Align Probiotic daily 01/14/2025 Centrilobular emphysema (ICD-10 - J43.2) 09/07/2024 Bronchitis (ICD-10 - J40) continue current therapy 09/21/2024 Essential hypertension (ICD-10 - I10) 02/01/2025 Symptomatic cholelithiasis (ICD-10 - K80.20) CONT RX. AWAIT CONSULTATION 09/21/2024 Bandemia (ICD-10 - D72.825) 01/14/2025 BMI 25.0-25.9,adult (ICD-10 - Z68.25) 09/07/2024 Diverticulitis (ICD-10 - K57.92) 05/28/2024 Centrilobular emphysema (ICD-10 - J43.2) 05/28/2024 Persistent cough (ICD-10 - R05.3) 09/07/2024 Bandemia (ICD-10 - D72.825) 05/28/2024 Actinic keratosis (ICD-10 - L57.0) Plan Of Treatment Pending Test Test Name Order Date LC-Carcinoembryonic Antigen 05/30/2021 Next Appt Details Provider Name:Kathryn Pennington er, 03/29/2025 04:15:00 PM, [address], [place], [place], [id number], Insurance Providers Payer Name Payer Address Payer Phone Subscriber Number Group Number Insured Name Patient Relationship to Insured Coverage Start Date Coverage End Date MEDICARE PART B [address] [address] [place] [address] [id number] BAMBI E[place] Self - patient is the insured [employer] MED[employer]ARE SUPPLEMENT [address] [address] [place], [place] [id number] BAMBI EAST Self - patient is the insured Medications Administered Medication Instructions Date of Administration Dosage Notes Dexamethasone 01/13/2024 1 mL Medical (General) History Medical History History ICD Code HTN Allergic Rhinitis Hyperlipidemia Hearing Aids 2008 Neg Arthritis Profile 04/2013 Adiposis Dolor Abd/ Pelvis CT 09/17/[address] Chest 09/17/2017 Migraine Headache Shingrix 04/2020 COVID 19 Vaccine x2 09/2020, 10/2020 COVID 19 Booster, 06/14/2021 Surgical History Surgery Date(Month/Year) rhinoplasty cataract (OU) 05/2009 hemicolectomy, Colorectal carcinoma, Dr. Jason 12/18/10 kidney stone 02/2011 eye surgery 01/2012 left eye, lesion removed 06/2012 ptosis, bilateral eye lids 08/27/12 injection single tendon sheath, ligament , aponeurosis 11/2012 Total left hip replacement 09/02/2015 total right hp replacement 12/09/15 Spinal fusion L4-L5 06/01/16 colonoscopy 08/29/17 CEA=3.4 (ref 0.0-4.6) 03/17/19 Colonoscopy, Dr. Frazier 09/10/2019 Hospitalization History Reason Date(Month/Year) kidney stone 02/2011 [facility] ER-fall 06/06
--- OUTSIDE RECORDS SUMMARY | 2025-03-01 12:49 | XMS_ITS | Encounter Summary ---
Author Organization [facility] Address [address] [place] [address] Care Team Providers Care Filter Press Operator Name Role Phone Nate Mills MD Primary Care Provider [phone] Efrain Angeles MD Primary Care Provider [phone] Encounter Details Date Type Department Care Team (Late st Contact Info) Description 03/14/2021 [facility] Only [facility] [address] [place] [phone] Efrain La PA [address] [place] [address] Social History Tobacco Use Types [...] Office Visit [facility] [address] [place] [phone] 03/29/2025 10:45 AM EDT Office Visit [facility] [place] [address] [place] [phone] Ebony Albrecht MD [address] [facility] [address] [place] [address] documented as of this encounter Procedures Procedure Name Priority Date/Time Associated Diagnosis Comments C-REACTIVE PROTEIN, PLASMA Routine 03/14/2021 1:48 PM EDT documented in this encounter Results * C-Reactive Protein, Plasma (03/14/2021 1:48 PM EDT) External C-Reactive Protein 0.15 0.00 - 0.49 mg/dL [facility] 03/14/2021 1:48 PM EDT 03/14/2021 2:09 PM EDT us Efrain KIRBY LAB BLOOD ORDERABLES Final R esult [facility] [address] [place] [address], documented in this encounter Visit Diagnoses Not on filedocumented in this encounter Care Teams Filter Press Operator Relationship Specialty Start Date End Date Nate Mills MD [address] [facility] [address] [place] [address] PCP - General 09/23/20 04/02/24 Efrain Angeles MD [address] [facility] [address] [place] [address] PCP - General 04/03/24 documented as of this encounter
--- OUTSIDE RECORDS SUMMARY | 2025-03-01 12:49 | XMS_ITS | Encounter Summary ---
Author Organization [facility] Address [address] [place] [address] Care Team Providers Care Emergency Room Orderly Name Role Phone Nate Mills MD Primary Care Provider [phone] Efrain Angeles MD Primary Care Provider [phone] Encounter Details Date Type Department Care Team (Late st Contact Info) Description 03/23/2022 Orders Only [facility] [address] [place] [phone] Ebony Albrecht MD [address] [address] Social History Tobacco Use Types [...] Description 03/29/2025 9:45 AM EDT Office Visit [facility] [address] [place] [address] 03/29/2025 10:45 AM EDT Office Visit [facility] [address] [place] [address] Ebony Albrecht MD [address] [facility] [address] [place] [phone] documented as of this encounter Procedures Procedure Name Priority Date/Time Associated Diagnosis Comments CBC WITH AUTO DIFFERENTIAL Routine 03/23/2022 9:07 AM EDT documented in this encounter Results * (ABNORMAL) CBC and Differential (03/23/2022 9:07 AM EDT) External WBC 14.0(H) 3.8 - 10.8 K/uL [facility] External Red Blood Cell (RBC) 4.33 3.80 - 5.20 M/uL [facility] External Hemoglobin 13.3 12.0 - 16.0 G/DL [facility] External Hematocrit 39.2 35.0 - 47.0 % [facility] External MCV 91 80 - 100 fL [facility] External MCH 31 26 - 35 PG [facility] External MCHC 34 32 - 36 G/DL [facility] External RDW 13.2 11.0 - 15.0 % [facility] External Mean Platelet Volume 9.6 6.2 - 10.5 fL [facility] External Platelets 248 130 - 400 K/uL [facility] External Neutrophil# 9.3(H) 1.6 - 8.4 K/uL [facility] External Lymphocyte# 3.0 0.4 - 5.1 K/uL [facility] External Absolute Monocyte (Abs [place]) 0.7 0.0 - 1.2 K/uL [facility] External Eosinophils# 0.8 0.0 - 0.8 K/uL [facility] External Baso# 0.2 0.0 - 0.3 K/uL [facility] External Neutrophils % 66.7 42.0 - 78.0 % [facility] External Lymphocyte % 21.2 11.0 - 47.0 % [facility] External Monocyte % 5.1 0.0 - 11.0 % [facility] External Eosinophil% 5.8 0.0 - 7.0 % [facility] External Basophil % 1.2 0.0 - 3.0 % [facility] External Nucleated RBC%-Auto 0.1 0.0 - 0.9 % [facility] External Nucleated RBC Absolute 0.01 Not Estab. K/uL [facility] 03/23/2022 9:07 AM EDT 03/23/2022 9:25 AM EDT us Ebony Albrecht MD LAB BLOOD ORDERABLES Final Re sult [facility] [address] [place] [address], documented in this encounter Visit Diagnoses Not on filedocumented in this encounter Care Teams Emergency Room Orderly Relationship Specialty Start Date End Date Nate Mills MD [address] [facility] [address] [place] [address] PCP - General 09/23/20 04/02/24 Efrain Angeles MD [address] [facility] [address] [place] [id number] PCP - General 04/03/24 documented as of this encounter
--- OUTSIDE RECORDS SUMMARY | 2025-03-01 12:49 | XMS_ITS | Encounter Summary ---
Author Organization [facility] Address [address] [place] [address] Care Team Providers Care Jewelry Sorter Name Role Phone Nate Mills MD Primary Care Provider [phone] Efrain Angeles MD Primary Care Provider [phone] Encounter Details Date Type Department Care Team (Late st Contact Info) Description 03/23/2022 Orders Only [facility] [address] [place] [phone] Ebnoy Albrecht MD [address] [address] Social History Tobacco Use Types [...] Description 03/29/2025 9:45 AM EDT Office Visit [facility] [address] [place] [address] 03/29/2025 10:45 AM EDT Office Visit [facility] [address] [place] [address] Ebnoy Albrecht MD [address] [facility] [address] [place] [address] documented as of this encounter Procedures Procedure Name Priority Date/Time Associated Diagnosis Comments CEA, SERUM Routine 03/23/2022 9:07 AM EDT documented in this encounter Results * CEA, Serum (03/23/2022 9:07 AM EDT) External Carcinoembryonic Antigen 4.2 0.0 - 4.7 ng/mL [facility] Comment: This test was performed using the Abdelrahman Awilda E801 electrochemiluminescent method. Values obtained from different assay methods cannot be used interchangeably. . 03/23/2022 9:07 AM EDT 03/23/2022 9:25 AM EDT us Ebony Albrecht MD LAB BLOOD ORDERABLES Final Re sult [facility] [address] [place] [address], documented in this encounter Visit Diagnoses Not on filedocumented in this encounter Care Teams Jewelry Sorter Relationship Specialty Start Date End Date Nate Mills MD [address] [facility] [address] [place] [address] PCP - General 09/23/20 04/02/24 Efrain Angeles MD [address] [facility] [address] [place] [address] PCP - General 04/03/24 documented as of this encounter
--- OUTSIDE RECORDS SUMMARY | 2025-03-01 12:49 | XMS_ITS | Encounter Summary ---
Author Organization [facility] Address [address] [place] [address] Care Team Providers Care Technology Administrator Name Role Phone Nate Mills MD Primary Care Provider [phone] Efrain Angeles MD Primary Care Provider [phone] Encounter Details Date Type Department Care Team (Late st Contact Info) Description 03/23/2022 Orders Only [facility] [address] [place] [phone] Ebony Albrecht MD [address] [address] Social History Tobacco Use Types [...] Description 03/29/2025 9:45 AM EDT Office Visit [facility] [address] [place] [address] 03/29/2025 10:45 AM EDT Office Visit [facility] [address] [address] [place] [address] Ebony Albrecht MD [address] [facility] [address] [place] [phone] documented as of this encounter Procedures Procedure Name Priority Date/Time Associated Diagnosis Comments COMPREHENSIVE METABOLIC PANEL, PLASMA Routine 03/23/2022 9:07 AM EDT documented in this encounter Results * (ABNORMAL) Comprehensive Metabolic Panel, Plasma (03/23/2022 9:07 AM EDT) External Glucose 116(H) 74 - 100 mg/dL [facility] External BUN 15 6 - 20 mg/dL [facility] External Creatinine Blood 0.67 0.50 - 0.95 mg/dL [facility] External BUN/Creat Ratio 22(H) 10 - 20 (calc) [facility] External Sodium 141 136 - 145 mmol/L [facility] External Potassium 3.3(L) 3.4 - 5.0 mmol/L [facility] External Chloride 103 98 - 107 mmol/L [facility] External Carbon Dioxide 27 22 - 31 mmol/L [facility] External Anion Gap (AG) 11 7 - 25 (calc) [facility] External Calcium 9.5 8.6 - 10.2 mg/dL [facility] External Total Protein 7.0 6.4 - 8.3 g/dL [facility] External Albumin 4.2 3.5 - 5.2 g/dL [facility] External Globulin 2.8 1.5 - 4.5 g/dL (calc) [facility] External Albumin/Globulin Ratio 1.5 1.1 - 2.5 (calc) [facility] External Bilirubin Total 0.4 0.1 - 1.2 mg/dL [facility] External Alkaline Phosphatase 104 30 - 121 U/L [facility] External AST (SGOT) 19 0 - 32 U/L [facility] External ALT (SGPT) 17 0 - 33 U/L [facility] External Estimated GFR 92 >=60 [facility] Comment: NOTE New calculation for GFR (CKD-EPI 2020) is formulated without race adjustment factors at the recommendation of the National Kidney Foundation and [place] [employer] Neph[employer]. This calculation has not been validated in women. For pediatric patients refer to https://www.kidney.org/professionals/KDOQI/gfr_calculatorPed 03/23/2022 9:07 AM EDT 03/23/2022 9:25 AM EDT us Ebony Albrecht MD LAB BLOOD ORDERABLES Final Re sult Performing Organization Address City/State/[facility] Co de Phone Number [facility] [address] [place] [address], documented in this encounter Visit Diagnoses Not on filedocumented in this encounter Care Teams Technology Administrator Relationship Specialty Start Date End Date Nate Mills MD [address] [facility] [address] [place] [address] PCP - General 09/23/20 04/02/24 Efrain Angeles MD [address] [facility] [address] [place] [address] PCP - General 04/03/24 documented as of this encounter
--- NOTE | 2025-03-01 13:00 | CT_ITS ---
FINAL REPORT TECHNIQUE: After the administration of intravenous contrast, axial images were obtained through the abdomen and pelvis by computed tomography. The study was performed with techniques to keep radiation dose as low as reasonably achievable, (ALARA). Individual dose reduction techniques using automated exposure control or adjustment of mA and/or kV according to the patient's size were employed. CLINICAL HISTORY: LLQ and RLQ abdominal pain/bloating/hx of colon CA COMPARISON: None FINDINGS: Abdomen: Bilateral subglandular implants are present. There are areas of attenuation adjacent to the implants, that are well-circumscribed and may represent contained leaks or possibly seromas. The lung bases are clear. The liver parenchyma demonstrates fatty infiltration. The gallbladder is mildly distended. The gallbladder wall is not thickened however it is slightly irregular and slightly denser than the usual appearance. The spleen, pancreas, adrenals and kidneys appear unremarkable. The aorta is normal in caliber with scattered calcifications. There is no free fluid or adenopathy. Pelvis: There is streak artifact overlying the pelvis secondary implants from prior lumbar fusion at the L5-S1 level. There is also streak artifact related to bilateral total hip replacements. Postoperative changes are present in the right lower quadrant. There is extensive diverticulosis present in the descending and sigmoid portions of the colon. The urinary bladder is unremarkable. There is no free fluid or adenopathy. IMPRESSION: The gallbladder is mildly distended, and the wall of the gallbladder is slightly irregular and slightly denser than usual after intravenous contrast administration. This finding is of uncertain significance, but early inflammatory change may be present. Correlation with ultrasound of the gallbladder may be helpful for further evaluation. Extensive diverticulosis is present in the descending and sigmoid portions of the colon without evidence of acute inflammatory change. Reviewed, Interpreted and Dictated by Juan Manuel Ramos MD Transcribed by Deborah Mantilla Authenticated and [facility]
[2025-03-01] MEDS: IOPAMIDOL-370 (76%);100ML BOTTLE 75 ML IV (13:01)
[2025-03-01] MEDS: SODIUM CHLORIDE 0.9% 10ML SYR (RAD ONLY) 10 ML IV (13:01)
== END 2025-03-01 23:59 | disposition home or self-care (01) ==
LOC: RAD 12:44
PROVIDERS: PCP Family Medicine; Visit Provider Nurse Practitioner Family
DX: K57.30 Diverticulosis of large intestine without perforation or abscess without bleeding (principal); K82.8 Other specified diseases of gallbladder; Z85.038 Personal history of other malignant neoplasm of large intestine
CPT/HCPCS: 74177; Q9967

== ENCOUNTER 2025-03-17 10:00 | Outpatient (CLI) | payer MEDICARE, OTHER, SELFPAY ==
--- OUTSIDE RECORDS SUMMARY | 2024-11-23 12:15 | XMS_ITS ---
Author Organization [facility] Address [address] [facility] [address] [place] [phone] Care Team Providers Care Backfiller Name Role Phone Kathryn Angeles Primary Care [...] Encounter Location Date Provider Diagnosis [facility] [address] [facility] [address] [facility] [address] [place] [phone] 11/23/2024 Kathryn Angeles Hair loss L65.9 and [...] Name:Kathryn Pennington er, 03/29/2025 04:15:00 PM, [address] [facility] [address] [facility], [address], [place], [phone], Progress Notes * SOHAN NUÑEZCLARICEB:[birth year] (74 yo F)Acc No.[id number]:11/23/2024 Progress Notes Patient: BAMBI ROCHE Provider: Kathryn [...] Diagno stic Procedure: k tressa stone 02/2011, [facility] ER-fall 06/06. * Family History: F ather: . M other: . 1 sister(s) . . * Social History: C URRENT TOBACCO USE S moking Status: Patient does NOT smoke, Second hand smoke exposure: No. H ome smoke detector use: yes. Marital Status: Single, spouse is . Occupation: Works at [employer]. Past smoking status: no, 2003, quit smoking. Occup. exposure: She saw the Beatles twice! She saw Laith Mayorga! Also Alissa Jones and Curtis Briceno! Her favorite concert was Pairin Reilly.. * Medications: T dionisio Dutasteride 0.5 [...] Months * Billing Information: * Visit Code: 49825 Office Visit, Est Pt., Level 3. * Procedure Codes: G2211 Complex e/m visit add on. 3074F SYST BP LT 130 MM HG. 3078F DIAST BP < 80 MM HG. * Electronic signature of Kathryn Angeles MD on 03/17/2025 at 10:04 AM EDT Sign off status: Pending * Provider: Kathryn Angeles M.D. Date: 0 11/23/2024 Generated for Kasey ovalles/Ghanshyam/Naseemitting on: 0 03/17/2025 10:04 AM EDT History and Physical Notes * HPI [...]
--- OUTSIDE RECORDS SUMMARY | 2025-02-01 11:00 | XMS_ITS ---
Author Organization [facility] Address [address] [facility] [address] [place] [phone] Care Team Providers Care Pedodontist Name Role Phone Kathryn Angeles Primary Care Provider [phone] Allergies Allergen (clinical drug ingredient) Drug/Non Drug [...] MOUTH NEEDED ONCE DAILY for 90 Active Triamterene-HCTZ 37.5-25 MG Take 1 table t by mouth once daily for 90 Active Albuterol Sulfate HFA 108 (90 Base) MCG/ACT 1 puff as needed Inhalation four times a day as needed Active Potassium Chloride ER 10 MEQ Take 1 tablet by mouth twice daily for 30 Active Konsyl Daily Fiber 100 % 1 packet with 8 ounces of liquid as needed Orally Once a day for 30 day(s) 01/14/2025 Active Advair Diskus 100-50 MCG/ACT 1 puff Inhalation Twice a day 08/06/2024 Active Rosuvastatin Calcium 10 MG TAKE 1 TABLET BY MOUTH ON SATURDAY, SATURDAY AND SATURDAY for 138 days Active Losartan Potassium 50 MG Take 1/2 (one-h detention) tablet by mouth once daily for 90 days Active Aspirin Low Dose 81 MG 1 tablet Orally O nce a day 12/26/2023 Active Align 4 MG 1 cap(s) orally once a day for 28 day(s) 12/24/2022 Active CoQ-10 100 MG 1 cap(s) orally once a day for 30 day(s) 05/27/2020 Active Gemtesa 75 MG 1 tablet Orally Once a day for 30 day(s) Active Dutasteride 0.5 MG 1 capsule Orally Onc e a day for 30 day(s) Active Vital Signs Blood pressure systolic 130 mm Hg 02/02/20 25 Blood pressure diastolic 62 mm Hg 025 Heart Rate 66 /min 02/01/2025 Height 66 in 02/01/2025 Weight 156.2 lbs 02/01/2025 BMI 25.21 kg/m2 02/01/2025 Encounters Encounter Location Date Provider Diagnosis [facility] [address] [place] [phone] 02/01/2025 Kathryn Angeles Symptomatic cholelithiasis K80.20 Assessments Encounter Date Diagnosis (ICD Code) Assessment Notes Treatment Notes Treatment Clinical Notes Section Notes 02/01/2025 Symptomatic cholelithiasis (ICD-10 - K80.20) CONT RX. AWAIT CONSULTATION Plan Of Treatment Treatment Notes Assessment Notes Symptomatic cholelithiasis CONT RX. AWAI T CONSULTATION Next Appt Details Follow Up: 2 Months, Reason: Provider Name:Kathryn Pennington er, 03/29/2025 04:15:00 PM, [address], [address], [place], [phone], Progress Notes * SOHAN NUÑEZCLARICEB:[birth year] (74 yo F)Acc No.[id number]:02/01/2025 Progress Notes Patient: BAMBI ROCHE Provider: Kathryn Angeles M.D. :1950 A ge:74 Y S ex:Female Date:02/01/2025 Address:[address], [phone] Subjective: * Chief Complaints: * [...] Diagno stic Procedure: k tressa stone 02/2011, [facility] ER-fall 06/06. * Family History: F ather: . M other: . 1 sister(s) . . * Social History: C URRENT TOBACCO USE S moking Status: Patient does NOT smoke, Second hand smoke exposure: No. H ome smoke detector use: yes. Marital Status: Single, spouse is . Occupation: Works at [employer]. Past smoking status: no, 2003, quit smoking. Occup. exposure: She saw the Beatles twice! She saw Laith Mayorga! Also Alissa Jones and Curtis Briceno! Her favorite concert was [employer].. * Medications: T dionisio Dutasteride 0.5 MG [...] rhonchi, no wheezes heard, decreased breath sounds. Abdomen: M ild epigastric fullness and some tenderness..? Neurologic Exam: I ntact, gait normal. Skin: normal, no rash. Peripheral pulses: n ormal . Extremities: t race l eg edema. Assessment: * Assessment: 1. S ymptomatic cholelithiasis - K80.20 (Primary) Plan: * Treatment: * Procedure Codes: G 2211 Complex e/m visit add on * Follow Up: 2 Months * Billing Information: * Visit Code: 42943 Office Visit, Est Pt., Level 3. * Procedure Codes: G2211 Complex e/m visit add on. * Electronic signature of Kathryn Angeles MD on 03/17/2025 at 10:04 AM EDT Sign off status: Pending * Provider: Kathryn Angeles M.D. Date: 0 02/01/2025 Generated for Kasey ovalles/Ghanshyam/eTransmitting on: 0 03/17/2025 10:04 AM EDT History and Physical Notes * Examination [...]
--- OUTSIDE RECORDS SUMMARY | 2025-03-17 10:04 | XMS_ITS | Encounter Summary ---
Author Organization [facility] Address [address] [place] [address] Care Team Providers Care Steam Shovelman Name Role Phone Nate Mills MD Primary Care Provider [phone] Efrain Angeles MD Primary Care Provider [phone] Encounter Details Date Type Department Care Team (Late st Contact Info) Description 03/29/2023 Orders Only [facility] [address] [place] [phone] Ebony Albrecht MD [address] [address] Social History Tobacco Use Types [...] Description 03/29/2025 9:45 AM EDT Office Visit [facility] [address] [place] [address] 03/29/2025 10:45 AM EDT Office Visit [facility] [address] [place] [address] Ebony Albrecht MD [address] [phone] documented as of this encounter Procedures Procedure Name Priority Date/Time Associated Diagnosis Comments COMPREHENSIVE METABOLIC PANEL, PLASMA Routine 03/29/2023 9:07 AM EDT documented in this encounter Results * (ABNORMAL) Comprehensive Metabolic Panel, Plasma (03/29/2023 9:07 AM EDT) External Glucose 108(H) 74 - 100 mg/dL 03/29/2023 9:52 AM EDT [facility] External BUN 16 6 - 20 mg/dL 03/29/2023 9:52 AM EDT [facility] External Creatinine Blood 0.69 0.50 - 0.95 mg/dL 03/29/2023 9:52 AM EDT [facility] External BUN/Creat Ratio 23(H) 10 - 20 (calc) 03/29/2023 9:52 AM EDT [facility] External Sodium 140 136 - 145 mmol/L 03/29/2023 9:52 AM EDT [facility] External Potassium 3.9 3.4 - 5.0 mmol/L 03/29/2023 9:52 AM EDT [facility] External Chloride 102 98 - 107 mmol/L 03/29/2023 9:52 AM EDT [facility] External Carbon Dioxide 28 22 - 31 mmol/L 03/29/2023 9:52 AM EDT [facility] External Anion Gap (AG) 10 7 - 25 (calc) 03/29/2023 9:52 AM EDT [facility] External Calcium 9.7 8.6 - 10.2 mg/dL 03/29/2023 9:52 AM EDT [facility] External Total Protein 7.4 6.4 - 8.3 g/dL 03/29/2023 9:52 AM EDT [facility] External Albumin 4.4 3.5 - 5.2 g/dL 03/29/2023 9:52 AM EDT [facility] External Globulin 3.0 1.5 - 4.5 023 9:52 AM EDT [facility] External Albumin/Globulin Ratio 1.5 1.1 - 2.5 (calc) 03/29/2023 9:52 AM EDT [facility] External Bilirubin Total 0.6 0.1 - 1.2 mg/dL 03/29/2023 9:52 AM EDT [facility] External Alkaline Phosphatase 107 30 - 121 U/L 03/29/2023 9:52 AM EDT [facility] External AST (SGOT) 29 0 - 32 U/L 03/29/2023 9:52 AM EDT [facility] External ALT (SGPT) 36(H) 0 - 33 U/L 03/29/2023 9:52 AM EDT [facility] External Estimated GFR 91 >=60 03/29/2023 9:52 AM EDT [facility] Comment: NOTE New calculation for GFR (CKD-EPI 2020) is formulated without race adjustment factors at the recommendation of the National Kidney Foundation and [place] [employer] Neph[employer]. This calculation has not been validated in women. For pediatric patients refer to https://www.kidney.org/professionals/KDOQI/gfr_calculatorPed 03/29/2023 9:07 AM EDT 03/29/2023 9:20 AM EDT Ebony Albrecht MD LAB BLOOD ORDERABLES Final Re sult [facility] [address] [place] [address], documented in this encounter Visit Diagnoses Not on filedocumented in this encounter Care Teams Steam Shovelman Relationship Specialty Start Date End Date Nate Mills MD [address] [place] [facility] [address] [place] [place] [address] PCP - General 09/23/20 04/02/24 Efrain Angeles MD [address] [place] [facility] [address] [place] [address] PCP - General 04/03/24 documented as of this encounter
--- OUTSIDE RECORDS SUMMARY | 2025-03-17 10:04 | XMS_ITS | Continuity of Care Document ---
Author Organization [facility] Clini norma, [address] Address [address] [place] [address] Care Team Providers Care Chemical Production Machine Operator Name Role Phone MARIAN HICKS Hematology/Oncology [phone] ELLE BOWSER Primary Care Provider [phone] Assessment No assessment recorded. 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 From Automated Load;Provi alex: Samira Oh;Sta tus: Active Not Available [facility] 6 10:00:49 Idiopathi c osteoarth ritis 036288428 Active 2015 From Automated Load;Provi alex: Samira Oh;Sta tus: Active Not Available [facility] 6 10:00:49 Acquired trigger finger 1633598 Active 2015 From Automated Load;Provi alex: [place], [place]; atus: Active Not Available [facility] 6 10:00:49 Low back pain 104433243 Active 2015 Provider: Mckayla Sawant;Carlito tus: Active Not Available [facility] 6 10:00:49 Pain in right lower limb 938684503 Active 2015 From Automated Load;Provi alex: Mckayla Sawant;Sta tus: Active Not Available [facility] 7 08:17:17 Problem Notes None recorded. Procedures Surgical History Date Name Laterality Status Provider Name and Address Organization Details Recorded Time 12/03/19 Audiogram completed BOB FERNANDEZ, AUD [address] [place], [address], [facility] 12/02/2024 14:15:27 02/04/20 24 Cervical Epidural Steroid Injection - Edith completed BINTA VALLE MD [address] [place], [address], [facility] 02/04/2024 16:42:53 12/10/19 24 Lumbar Epidural Steroid Injection - Edith completed BINTA VALLE MD [address] [place], [address], [facility] 12/10/2023 13:08:38 10/15/19 24 Injection Joint/Bursa, Major completed Steve Jiang [facility] 11/03/2023 10:26:01 07/17/20 23 PTNM; single treatment completed Lissette Llanes [facility] 07/17/2023 10:20:48 07/10/20 23 PTNM; single treatment completed Lissette Llanes [facility] 07/10/2023 10:57:02 07/03/20 23 PTNM; single treatment completed Lissette Llanes [facility] 07/03/2023 10:00:46 06/26/20 Tympanogram completed BOB FERNANDEZ, AUD [address] [place], [address], [facility] 06/26/2023 14:08:53 06/26/20 Audiogram completed BOB FERNANDEZ AUD [address] [place], [address], [facility] 06/26/2023 13:46:18 06/26/20 PTNM; single treatment completed Lissette Llanes [place] [facility] 06/26/2023 09:57:04 06/19/20 PTNM; single treatment completed Lissette Llanes [place] [facility] 06/19/2023 10:02:20 06/18/20 Injection Joint/Bursa, Major completed SAMIRA VELASQUEZ MD [address] [place], [address], [facility] 06/18/2023 18:09:20 06/12/20 PTNM; single treatment completed Lissette Llanes [place] [facility] 06/12/2023 09:32:33 06/05/20 PTNM; single treatment completed Lissette Llanes [place] [facility] 06/05/2023 10:11:13 05/22/20 PTNM; single treatment completed Lissette Llanes [facility] 05/22/2023 09:36:10 05/15/20 PTNM; single treatment completed Lissette Llanes [place] [facility] 05/15/2023 10:24:29 05/08/20 PTNM; single treatment completed Lissette Llanes [place] [facility] 05/08/2023 09:34:42 05/01/20 PTNM; single treatment completed Lissette Llanes [place] [facility] 05/01/2023 09:38:00 04/24/20 PTNM; single treatment completed Lissette Llanes [place] [facility] 04/24/2023 10:00:07 03/19/20 Injection Joint/Bursa, Major completed SAMIRA VELASQUEZ MD [address] [place], [address], [facility] 03/19/2023 19:21:27 01/03/20 PTNM; single treatment completed Lissette Llanes [place] [facility] 01/02/2023 14:15:39 11/29/19 23 PTNM; single treatment completed Lissette Llanes [facility] 11/28/2022 11:13:43 11/07/19 23 PNE Implantation; Sacral Nerve completed Lissette Llanes [facility] 11/07/2022 15:36:06 10/10/19 23 PTNM; single treatment completed Lissette Llanes [facility] 10/10/2022 14:05:47 08/28/20 22 PTNM; single treatment completed Lissette Llanes [facility] 08/28/2022 16:08:39 07/18/20 22 PTNM; single treatment completed Lissette Llanes [facility] 07/18/2022 14:06:01 06/12/20 22 PTNM; single treatment completed Lissette Llanes [facility] 06/12/2022 09:28:34 04/30/20 PTNM; single treatment completed Lissetet Llanes [facility] 04/30/2022 09:46:41 03/28/20 PTNM; single treatment completed Lissette Llanes [facility] 03/28/2022 12:10:29 02/03/20 PTNM; single treatment completed Marian Zamorano [facility] 02/02/2022 12:54:09 01/06/20 PTNM; single treatment completed Lissette Llanes [facility] 01/05/2022 09:43:05 12/09/19 22 PTNM; single treatment completed Lissette Llanes [facility] 12/08/2021 09:16:36 11/03/19 22 Orthotic, HFO, Static Custom completed MARIANO LUCERO JR, OTR/L, T [address] [place], [address], [facility] 11/03/2021 10:19:47 11/01/19 22 PTNM; single treatment completed Shamika Cook [facility] 11/01/2021 14:15:16 09/27/19 22 PTNM; single treatment completed Lissette Llanes [facility] 09/27/2021 13:44:55 08/30/20 21 PTNM; single treatment completed Lissette Llanes [place] [facility] 08/30/2021 13:49:55 08/02/20 PTNM; single treatment completed Lissette Llanes [place] [facility] 08/02/2021 13:39:59 07/05/20 PTNM; single treatment completed Fredericeriee Crawford [place] [facility] 07/05/2021 14:16:42 06/08/20 Audiogram completed BOB REBECCA, AUD [address] [place], [address], [facility] 06/08/2021 14:36:24 06/07/20 PTNM; single treatment completed Lissette Ll[place] [facility] 06/07/2021 13:51:12 05/10/20 PTNM; single treatment completed Lissette [place] [facility] 05/10/2021 13:50:25 04/12/20 PTNM; single treatment completed Fredericeriee Crawford [place] [facility] 04/12/2021 14:41:42 03/15/20 PTNM; single treatment completed Shamika Cook [facility] 03/15/2021 14:14:49 02/16/20 PTNM; single treatment completed Marian Zamorano [place] [facility] 02/15/2021 14:11:53 01/19/20 PTNM; single treatment completed Lissette Llanes [facility] 01/18/2021 15:01:10 12/15/19 PTNM; single treatment completed Lissette Llanes [place] [facility] 12/14/2020 14:29:21 11/16/19 PTNM; single treatment completed Lissette Ll[place] [facility] 11/16/2020 14:08:30 10/19/19 PTNM; single treatment completed Lissette Ll[place] [facility] 10/19/2020 14:14:48 09/21/20 PTNM; single treatment completed Fredericeriee [place] [facility] 09/21/2020 14:10:25 08/17/20 PTNM; single treatment completed Lissette Llanes [place] [facility] 08/17/2020 12:42:47 07/20/20 PTNM; single treatment completed Lissette Llanes [place] [facility] 07/20/2020 14:31:41 06/22/20 PTNM; single treatment completed Lissette Llanes [place] [facility] 06/22/2020 15:07:04 05/25/20 PTNM; single treatment completed Lissette Llanes [place] [facility] 05/25/2020 14:54:12 04/27/20 PTNM; single treatment completed Lissette Llanes [place] [facility] 04/27/2020 15:14:35 03/30/20 PTNM; single treatment completed Elton Roth [place] [facility] 03/30/2020 13:54:01 02/24/20 PTNM; single treatment completed Lissette Llanes [place] [facility] 02/24/2020 12:22:05 01/28/20 PTNM; single treatment completed Lissette Llanes [place] [facility] 01/28/2020 14:31:41 12/02/19 PTNM; single treatment completed Lissette Llanes [place] [facility] 12/02/2019 13:41:35 10/28/19 PTNM; single treatment completed Lissette Llanes [place] [facility] 10/28/2019 13:34:17 09/30/19 PTNM; single treatment completed Lissette Llanes [place] [facility] 09/30/2019 13:36:55 08/26/20 PTNM; single treatment completed Lissette Llanes [place] [facility] 08/26/2019 14:23:11 07/29/20 PTNM; single treatment completed Elton Roth [place] [facility] 07/29/2019 13:40:34 06/24/20 PTNM; single treatment completed Lissette Llanes [place] [facility] 06/24/2019 13:47:33 05/27/20 PTNM; single treatment completed Aby Garland [place] [facility] 05/27/2019 13:26:10 04/22/20 PTNM; single treatment completed Lissette Llanes [place] [facility] 04/22/2019 13:48:48 03/25/20 PTNM; single treatment completed Lissette Llanes [place] [facility] 03/25/2019 13:38:21 05/29/20 19 PTNM; single treatment completed Lissette Carranzaford [place] [facility] 02/18/2019 13:36:03 01/22/20 19 PTNM; single treatment completed Lissette Llanes [place] [facility] 01/21/2019 13:28:09 12/25/19 19 PTNM; single treatment completed Deseriee Crawford [place] [facility] 12/24/2018 13:27:25 11/27/19 19 PTNM; single treatment completed Lissette Llanes [place] [facility] 11/26/2018 13:23:30 10/29/19 19 PTNM; single treatment completed Lissette Carranzaford [place] [facility] 10/29/2018 13:24:59 10/01/19 19 PTNM; single treatment completed Lissette Llanes [place] [facility] 10/01/2018 13:37:18 09/03/20 18 PTNM; single treatment completed Lissette Llanes [place] [facility] 09/03/2018 14:01:41 08/06/20 18 PTNM; single treatment completed Deseriee Crawford [place] [facility] 08/06/2018 13:24:22 07/09/20 18 PTNM; single treatment completed Deseriee Crawford [place] [facility] 07/09/2018 13:53:27 06/11/20 18 PTNM; single treatment completed Deseriee Crawford [place] [facility] 06/11/2018 13:43:34 05/14/20 18 PTNM; single treatment completed Lissette Llanes [place] [facility] 05/14/2018 13:35:13 04/16/20 18 PTNM; single treatment completed Lissette Llanes [place] [facility] 04/16/2018 13:40:58 03/19/20 18 PTNM; single treatment completed Lissettemissy Carranzaford [place] [facility] 03/19/2018 15:35:10 02/20/20 18 PTNM; single treatment completed Lissettemissy Carranzaford [place] [facility] 02/19/2018 13:52:08 02/13/20 18 PTNM; single treatment completed Lissettemissy Carranzaford [place] [facility] 02/12/2018 14:51:22 02/06/20 18 PTNM; single treatment completed Lissettemissy Carranzaford [place] [facility] 02/05/2018 14:19:59 01/30/20 18 PTNM; single treatment [facility] 01/29/2018 14:04:02 01/23/20 18 PTNM; single treatment completed Lissette Llanes [facility] 01/22/2018 13:51:44 01/16/20 18 PTNM; single treatment completed Lissette Llanes [facility] 01/15/2018 14:31:08 01/09/20 18 PTNM; single treatment completed Lissette Llanes [facility] 01/08/2018 14:04:38 01/02/20 18 PTNM; single treatment completed Lissette Llanes [facility] 01/01/2018 14:04:04 12/26/19 18 PTNM; single treatment completed Lissette Llanes [facility] 12/25/2017 13:48:37 12/19/19 18 PTNM; single treatment completed Lissette Llanes [facility] 12/18/2017 14:07:42 12/14/19 18 Injection Joint/Bursa, Major completed SAMIRA VELASQUEZ MD [address] [place], [address], [place] [facility] 12/13/2017 08:27:52 12/12/19 18 PTNM; single treatment completed Lissette Llanes [facility] 12/11/2017 14:38:33 12/05/19 18 PTNM; single treatment completed Lissette Llanes [facility] 12/04/2017 14:31:53 11/20/19 17 Injection Joint/Bursa, Major, w/o US completed SAMIRA VELASQUEZ MD [address] [place], [address], [place] [facility] 11/20/2016 16:42:55 09/23/19 16 Back Surgery completed Mita Omalley [facility] 11/27/2023 09:40:35 Total hip arthroplasty completed Pawan [facility] 02/13/2019 08:01:33 Total Colectomy completed Мария [facility] 01/20/2018 14:24:43 Tonsillectomy completed Мария [facility] 01/20/2018 14:24:49 Hip Replacement completed [facility] 01/20/2018 14:25:08 Imaging Results None recorded. [...] Tobacco Smoking Status Former Smoker Cleo Ibarra [facility] 09/21/2016 10:43:51 Accident Related Injury No [...] No Information not available 09/21/2016 Marital Status Informatio n not available 09/21/2016 What Was The Date Of Your Most Recent Tobacco Screening? 01/14/2024 [email or web address] Information not available 01/14/2024 What Is Your Relationship Status? [email or web address] Information not available 11/27/2023 How Much Tobacco Do You Smoke? No [email or web address] Information not available 06/10/2020 Has Tobacco Cessation Counseling Been Provided? No [email or web address] Information not available 11/27/2023 Work Related Injury? [...] available 09/21 10:43:43 Medical History Condition Response Gout N Other N Anxiety/Depression N Thyroid Disease N Kidney Stones N Hernia N Glaucoma N COPD N Pneumonia N Anesthesia Complications N Dizziness N Hearing Loss Y Arthritis Y Head Injury/Concussion Y Blood Clot N Cancer Y Stroke N Blood Thinners N Alcohol Overuse/Alcohol Abuse N High Cholesterol N Liver Disease N Kidney Disease N Allergies/Hayfever N Heart Conditions N Alzheimer's N Pressure in ears N Migraines N Skin Problems N Immune System Disorder N Heart Attack (ID) N Mental Illness N Neurological Problems N Diabetes N Noise exposure (guns, equipment etc) N Rheumatic Fever N Bleeding Disorder N Seizures/Epilepsy N Tuberculosis [...] SNOMED-CT Code Diagnosis ICD10 Code Diagnosis Note [id number] GILDA FAN NG, AUD [place] [address] [place] [address] 02/03/2025 10:41:42 02/04/2025 15:21:21 Health Concerns Section Related Observation LastModified by Organization Detai ls LastModified Time None Recorded Concern Status LastModified by Organization Details LastModified Time None Recorded Payers Encounter Date Sequence Insurance Name Policy Number Policy Lindsay Covered Member ID Lindsay Member ID Guarantor Name 02/03/2025 1 MEDICARE-PR (MEDICARE) Alyssia Holly [id number] Alyssia Holly 02/03/2025 2 [facility]IC[facility] SUPPLEMENT) Alyssia Holly [id number] Alyssia Holly OBGyn Episode No OBEpisode recorded.
--- OUTSIDE RECORDS SUMMARY | 2025-03-17 10:04 | XMS_ITS | Encounter Summary ---
Author Organization Healthcare Address [address] [place] [address] Care Team Providers Care Business Office Manager Name Role Phone Nate Mills MD Primary Care Provider [phone] Efrain Angeles MD Primary Care Provider [phone] Encounter Details Date Type Department Care Team (Late Contact Info) Description 02/20/2024 Orders Only External Location [address] [place] [address] Provider, External Social History Tobacco Use Types [...] Upcoming Encounters Date Type Department Care Team ([facility] Contact Info) Description 03/29/2025 9:45 AM EDT Office Visit [facility] [address] [place] [address] 03/29/2025 10:45 AM EDT Office Visit [email or web address] at [facility] [address] [place] [address] Ebony Albrecht MD [address] [address] documented as of this encounter Procedures Procedure [...] on filedocumented in this encounter Care Teams Business Office Manager Relationship Specialty Start Date End Date Nate Mills MD [address] [place] [facility] [address] [place] [address] PCP - General 09/23/20 04/02/24 Efrain Angeles MD [address] [place] [facility] [address] [place] [address] PCP - General 04/03/24 documented as of this encounter
--- OUTSIDE RECORDS SUMMARY | 2025-03-17 10:04 | XMS_ITS | Encounter Summary ---
Author Organization [facility] Address [address] [place] [address] Care Team Providers Care Clinic Receptionist Name Role Phone Nate Mills MD Primary Care Provider [phone] Efrain Angeles MD Primary Care Provider [phone] Encounter Details Date Type Department Care Team (Late st Contact Info) Description 03/29/2023 Orders Only [facility] [address] [place] [address] Ebony Albrecht MD [address] [address] Social History Tobacco Use Types [...] Description 03/29/2025 9:45 AM EDT Office Visit [facility] [address] [place] [address] 03/29/2025 10:45 AM EDT Office Visit [facility] [address] [place] [address] Ebony Albrecht MD [address] [facility] [address] [place] [address] documented as of this encounter Procedures Procedure Name Priority Date/Time Associated Diagnosis Comments CEA, SERUM Routine 03/29/2023 9:07 AM EDT documented in this encounter Results * CEA, Serum (03/29/2023 9:07 AM EDT) External Carcinoembryonic Antigen 4.6 0.0 - 4.7 ng/mL 03/29/2023 9:59 AM EDT [facility] Comment: This test was performed using the Abdelrahman Awilda E801 electrochemiluminescent method. Values obtained from different assay methods cannot be used interchangeably. . 03/29/2023 9:07 AM EDT 03/29/2023 9:22 AM EDT us Ebony Albrecht MD LAB BLOOD ORDERABLES Final Re sult [facility] [address] [place] [address], documented in this encounter Visit Diagnoses Not on filedocumented in this encounter Care Teams Clinic Receptionist Relationship Specialty Start Date End Date Nate Mills MD [address] [facility] [address] [place] [address] PCP - General 09/23/20 04/02/24 Efrain Angeles MD [address] [facility] [address] [facility] [address] [place] [address] PCP - General 04/03/24 documented as of this encounter
--- OUTSIDE RECORDS SUMMARY | 2025-03-17 10:04 | XMS_ITS | Clinical Summary ---
Author Organization [facility] Address [address] [place] [address] Care Team Providers Care Formwork Carpenter Name Role Phone Efrain Angeles MD Primary Care Provider [phone] Allergies Active Allergy Reactions Criticality Noted Date [...] Description 03/29/2025 9:45 AM EDT Office Visit [facility] [address] [place] [address] 03/29/2025 10:45 AM EDT Office Visit [facility] [address] [place] [address] Ebony Albrecht MD [address] [place] [phone] Health Maintenance Due Date Last Done Comments [...] UKY-Zoster Vaccines (2 of 2) 07/01/2020 05/06/2020 [id number] Vaccine (2023- season) 2024 06/14/2021, 10/26/2020, 10/20/2020, [...] age to complete this topic Insurance MEDICARE Care Teams Formwork Carpenter Relationship Specialty Start Date End Date Efrain Angeles MD [address] [place] [address] PCP - General 04/03/24
--- OUTSIDE RECORDS SUMMARY | 2025-03-17 10:04 | XMS_ITS | Encounter Summary ---
Author Organization [facility] Address [address] [place] [address] Care Team Providers Care Diesel Retrofit Installer Name Role Phone Nate Mills MD Primary Care Provider [phone] Efrain Angeles MD Primary Care Provider [phone] Encounter Details Date Type Department Care Team (Late st Contact Info) Description 03/29/2023 Orders Only [facility] at [facility] [address] [place] [address] Ebony Albrecht MD [address] [address] Social History Tobacco Use Types [...] Description 03/29/2025 9:45 AM EDT Office Visit [facility] [address] [place] [address] 03/29/2025 10:45 AM EDT Office Visit [facility] [address] [place] [address] Ebony Albrecht MD [address] [facility] [address] [place] [address] documented as of this encounter Procedures Procedure Name Priority Date/Time Associated Diagnosis Comments CBC WITH AUTO DIFFERENTIAL Routine 03/29/2023 9:07 AM EDT documented in this encounter Results * (ABNORMAL) CBC and Differential (03/29/2023 9:07 AM EDT) External WBC 12.7(H) 3.8 - 10.8 10*3/uL 03/29/2023 9:26 AM EDT [facility] External Red Blood Cell (RBC) 4.66 3.80 - 5.20 10*6/uL 03/29/2023 9:26 AM EDT [facility] External Hemoglobin 14.4 12.0 - 16.0 g/dL 03/29/2023 9:26 AM EDT [facility] External Hematocrit 42.6 35.0 - 47.0 % 03/29/2023 9:26 AM EDT [facility] External MCV 92 80 - 100 fL 03/29/2023 9:26 AM EDT [facility] External MCH 31 26 - 35 pg 03/29/2023 9:26 AM EDT [facility] External MCHC 34 32 - 36 g/dL 03/29/2023 9:26 AM EDT [facility] External RDW 13.7 11.0 - 15.0 % 03/29/2023 9:26 AM EDT [facility] External Mean Platelet Volume 9.7 6.2 - 10.5 fL 03/29/2023 9:26 AM EDT [facility] External Platelets 254 130 - 400 10*3/uL 03/29/2023 9:26 AM EDT [facility] External Neutrophil# 8.9(H) 1.6 - 8.4 10*3/uL 03/29/2023 9:26 AM EDT [facility] External Lymphocyte# 2.7 0.4 - 5.1 10*3/uL 03/29/2023 9:26 AM EDT [facility] External Absolute Monocyte (Abs Dade) 0.7 0.0 - 1.2 10*3/uL 03/29/2023 9:26 AM EDT [facility] External Eosinophils# 0.3 0.0 - 0.8 10*3/uL 03/29/2023 9:26 AM EDT [facility] External Baso# 0.1 0.0 - 0.3 10*3/uL 03/29/2023 9:26 AM EDT [facility] External Neutrophils % 70.2 42.0 - 78.0 % 03/29/2023 9:26 AM EDT [facility] External Lymphocyte % 20.9 11.0 - 47.0 % 03/29/2023 9:26 AM EDT [facility] External Monocyte % 5.6 0.0 - 11.0 % 03/29/2023 9:26 AM EDT [facility] External Eosinophil% 2.7 0.0 - 7.0 % 03/29/2023 9:26 AM EDT [facility] External Basophil % 0.6 0.0 - 3.0 % 03/29/2023 9:26 AM EDT [facility] External Nucleated RBC%-Auto 0.0 0.0 - 0.9 % 03/29/2023 9:26 AM EDT [facility] External Nucleated RBC Absolute 0.00 Not Estab. 10*3/uL 03/29/2023 9:26 AM EDT [facility] 03/29/2023 9:07 AM EDT 03/29/2023 9:22 AM EDT us Ebony Albrecht MD LAB BLOOD ORDERABLES Final Re sult [facility] [address] [place] [address], documented in this encounter Visit Diagnoses Not on filedocumented in this encounter Care Teams Diesel Retrofit Installer Relationship Specialty Start Date End Date Nate Mills MD [facility] [place] [address] PCP - General 09/23/20 04/02/24 Efrain Angeles MD [address] [place] [address] PCP - General 04/03/24 documented as of this encounter
--- OUTSIDE RECORDS SUMMARY | 2025-03-17 10:05 | XMS_ITS | Encounter Summary ---
Author Organization [facility] Address [address] [place] [address] Care Team Providers Care Senior Linux Administrator Name Role Phone Nate Mills MD Primary Care Provider [phone] Efrain Angeles MD Primary Care Provider [phone] Encounter Details Date Type Department Care Team (Late st Contact Info) Description 03/14/[address] [facility] [address] [place] [address] [phone] Efrain La PA [address] [place] [address] Social History Tobacco Use Types [...] EDT Office Visit [facility] [address] [place] [phone] 03/29/2025 10:45 AM EDT Office Visit [facility] [place] [address] [place] [phone] Ebony Albrecht MD [address] [facility] [address] [place] [phone] documented as of this encounter Procedures Procedure Name Priority Date/Time Associated Diagnosis Comments C-REACTIVE PROTEIN, PLASMA Routine 03/14/2021 1:48 PM EDT documented in this encounter Results * C-Reactive Protein, Plasma (03/14/2021 1:48 PM EDT) External C-Reactive Protein 0.15 0.00 - 0.49 mg/dL [facility] 03/14/2021 1:48 PM EDT 03/14/2021 2:09 PM EDT us Efrain [facility] BLOOD ORDERABLES Final R esult [facility] [address] [place] [address], documented in this encounter Visit Diagnoses Not on filedocumented in this encounter Care Teams Senior Linux Administrator Relationship Specialty Start Date End Date Nate Mills MD [address] [facility] [address] [place] [address] PCP - General 09/23/20 04/02/24 Efrain Angeles MD [address] [facility] [address] [place] [address] PCP - General 04/03/24 documented as of this encounter
--- OUTSIDE RECORDS SUMMARY | 2025-03-17 10:05 | XMS_ITS | Data Portability ---
Author Organization [facility] [place] [facility] Address [address] [place] [address] Care Team Providers Care Telecasting Technician Name Role Phone ELLE BOWSER Primary Care Provider [phone] MARIAN HICKS Hematology/Oncology [phone] LOUISE RODRIGEZ Urologist [phone] Assessment Encounter Date Assessment Date Assessment LastModified by Organization Details LastModified Time 03/20/2021 03/20/2021 RTC in 1 year with CBC, CMP, CEA. [email or web address] Not available 03/20/2021 10:30:02 03/23/2022 03/23/2022 RTC in 1 year with CBC, CMP, CEA. Please schedule colonoscopy at [facility]. [email or web address] Not available 03/23/2022 10:55:22 03/29/2023 03/29/2023 RTC in 1 year with CBC, CMP, CEA. Please get results of colonoscopy at [facility]. Make sure CEA was done today. [email or web address] Not available 03/29/2023 10:03:04 Plan of Treatment Reminders Order Date Submit Date Provider Last Modified By Organization Details Last Modified Time Details Appointments RECHECK 2024 02:00P M LOUISE DESHPANDE MD Not available Not available Not available Lab None recorded . Referral None recorded . Procedures None recorded . Surgeries None recorded . Imaging None recorded . Medication Orders None recorded . Patient TargetsNo targets recorded. Patient Instructions Encounter Date Encounter Id Patient Instructions Last Modified By Organization Details Last Modified Time 03/17/2019 [id number] high blood pressure: care instructions [email or web address] Not available 03/17/2019 10:48:24 learning about high blood pressure [email or web address] Not available 03/17/2019 10:48:24 03/15/2020 [id number] high blood pressure: care instructions [email or web address] Not available 03/15/2020 10:23:52 learning about high blood pressure [email or web address] Not available 03/15/2020 10:23:52 03/20/2021 [id number] high blood pressure: care instructions [email or web address] Not available 03/20/2021 10:32:34 learning about high blood pressure [email or web address] Not available 03/20/2021 10:32:34 03/23/2022 [id number] high blood pressure: care instructions Not available 03/23/2022 10:55:55 learning about high blood pressure Not available 03/23/2022 10:55:55 03/29/2023 [id number] high blood pressure: care instructions Not available 03/29/2023 10:03:17 learning about high blood pressure [email or web address] Not available 03/29/2023 10:03:17 Reason for Referral None Reported. Results Created Date Observation Date Name Description Value Unit Range Abnormal Flag Note LastModifiedBy Organization Detail LastModifiedTime 03/17/2003/17/2019 CBC w/ auto diff white blood cells 7.7 K/uL 3.8-10 .8 normal Not Available [facility] [address] [place] [address], [address], 03/17/2019 07:48:30 03/17/2003/17/2019 CBC w/ auto diff red blood cells 4.56 M/uL 3.80-5 .20 normal Not Available [facility] [address] [place] [address], [address], 03/17/2019 07:48:30 03/17/2003/17/2019 CBC w/ auto diff hemoglobin 14.2 g/dL 12.0-1 6.0 normal Not Available [facility] [address] [place] [address], [address], 03/17/2019 07:48:30 03/17/2003/17/2019 CBC w/ auto diff hematocrit 41.5 % 35.0-4 7.0 normal Not Available [facility] [address] [place] [address], [address], 03/17/2019 07:48:30 03/17/2003/17/2019 CBC w/ auto diff MCV 91 fL 80-100 normal Not Available [facility] [address] [place] [address], [address], 03/17/2019 07:48:30 03/17/2003/17/2019 CBC w/ auto diff MCH 31 pg 26-35 normal Not Available [facility] [address] [place] [address], [address], 03/17/2019 07:48:30 03/17/2003/17/2019 CBC w/ auto diff MCHC 34 g/dL 32-36 normal Not Available [facility] [address] [place] [address], [address], 03/17/2019 07:48:30 03/17/2003/17/2019 CBC w/ auto diff RDW 13.2 % 11.0-1 5.0 normal Not Available [facility] [address] [place] [address], [address], 03/17/2019 07:48:30 03/17/2003/17/2019 CBC w/ auto diff MPV 9.5 fL 6.2-10 .5 normal Not Available [facility] [address] [place] [address], [address], 03/17/2019 07:48:30 03/17/2003/17/2019 CBC w/ auto diff platelet count 243 K/uL 130-40 0 normal Not Available [facility] [address] [place] [address], [address], 03/17/2019 07:48:30 03/17/2003/17/2019 CBC w/ auto diff neutrophil,a bsolute 4.0 K/uL 1.6-8. 4 normal Not Available [facility] [address] [place] [address], [address], 03/17/2019 07:48:30 03/17/2003/17/2019 CBC w/ auto diff lymphocyte,a bsolute 2.7 K/uL 0.4-5. 1 normal Not Available [facility] [address] [place] [address], [address], 03/17/2019 07:48:30 03/17/2003/17/2019 CBC w/ auto diff monocyte,abs olute 0.5 K/uL 0.0-1. 2 normal Not Available [facility] [address] [place] [address], [address], 03/17/2019 07:48:30 03/17/2003/17/2019 CBC w/ auto diff eosinophil,a bsolute 0.5 K/uL 0.0-0. 8 normal Not Available [facility] [address] [place] [address], [address], 03/17/2019 07:48:30 03/17/2003/17/2019 CBC w/ auto diff basophil,abs olute 0.0 K/uL 0.0-0. 3 normal Not Available [facility] [address] [place] [address], [address], 03/17/2019 07:48:30 03/17/2003/17/2019 CBC w/ auto diff % neutrophils 51.2 % 42.0-7 8.0 normal Not Available [facility] [address] [place] [address], [address], 03/17/2019 07:48:30 03/17/2003/17/2019 CBC w/ auto diff % lymphocytes 34.6 % 11.0-4 7.0 normal Not Available [facility] [address] [place] [address], [address], 03/17/2019 07:48:30 03/17/2003/17/2019 CBC w/ auto diff % monocytes 6.9 % 0.0-11 .0 normal Not Available [facility] [address] [place] [address], [address], 03/17/2019 07:48:30 03/17/20 19 03/17/2019 CBC w/ auto diff % eosinophils 6.8 % 0.0-7. 0 normal Not Available [facility] [address] [place] [address], [address], 03/17/2019 07:48:30 03/17/20 19 03/17/2019 CBC w/ auto diff % basophils 0.5 % 0.0-3. 0 normal Not Available [facility] [address] [place] [address], [address], 03/17/2019 07:48:30 03/17/2003/17/2019 CBC w/ auto diff nucleated red cells 0.0 % 0.0-0. 9 normal Not Available [facility] [address] [place] [address], [address], 03/17/2019 07:48:30 03/17/2003/17/2019 CBC w/ auto diff nucleated RBCs, absolute 0.00 K/uL not estab. normal Not Available [facility] [address] [place] [address], [address], 03/17/2019 07:48:30 03/17/2003/17/2019 CMP, serum or plasm a glucose 96 mg/dL 74-100 normal Not Available [facility] [address] [place] [address], [address], 03/17/2019 08:18:43 03/17/2003/17/2019 CMP, serum or plasm a blood urea nitrogen 12 mg/dL 6-20 normal Not Available [facility] [address] [place] [address], [address], 03/17/2019 08:18:43 03/17/2003/17/2019 CMP, serum or plasm a creatinine 0.58 mg/dL 0.50-0 .95 normal Not Available [facility] [address] [place] [address], [address], 03/17/2019 08:18:43 03/17/20 19 03/17/2019 CMP, serum or plasm a BUN/creatini ne ratio 21 (calc ) 10-20 high Not Available [facility] [address] [place] [address], [address], 03/17/2019 08:18:43 03/17/20 19 03/17/2019 CMP, serum or plasm a sodium 139 mmol/ L 136-14 5 normal Not Available [facility] [address] [place] [address], [address], 03/17/2019 08:18:43 03/17/20 19 03/17/2019 CMP, serum or plasm a potassium 3.9 mmol/ L 3.4-5. 0 normal Not Available [facility] [address] [place] [address], [address], 03/17/2019 08:18:43 03/17/20 19 03/17/2019 CMP, serum or plasm a chloride 103 mmol/ L 98-107 normal Not Available [facility] [address] [place] [address], [address], 03/17/2019 08:18:43 03/17/20 19 03/17/2019 CMP, serum or plasm a carbon dioxide 26 mmol/ L 20-32 normal Not Available [facility] [address] [place] [address], [address], 03/17/2019 08:18:43 03/17/20 19 03/17/2019 CMP, serum or plasm a anion gap 10 (calc ) 7-25 normal Not Available [facility] [address] [place] [address], [address], 03/17/2019 08:18:43 03/17/20 19 03/17/2019 CMP, serum or plasm a calcium 9.8 mg/dL 8.6-10 .2 normal Not Available [facility] [address] [place] [address], [address], 03/17/2019 08:18:43 03/17/2003/17/2019 CMP, serum or plasm a total protein 7.1 g/dL 6.4-8. 3 normal Not Available [facility] [address] [place] [address], [address], 03/17/2019 08:18:43 03/17/2003/17/2019 CMP, serum or plasm a albumin 4.2 g/dL 3.5-5. 2 normal Not Available [facility] [address] [place] [address], [address], 03/17/2019 08:18:43 03/17/2003/17/2019 CMP, serum or plasm a globulin 2.9 g/dL_ (calc ) 1.5-4. 5 normal Not Available [facility] [address] [place] [address], [address], 03/17/2019 08:18:43 03/17/2003/17/2019 CMP, serum or plasm a albumin/glob ulin ratio 1.4 (calc ) 1.1-2. 5 normal Not Available [facility] [address] [place] [address], [address], 03/17/2019 08:18:43 03/17/20 19 03/17/2019 CMP, serum or plasm a bilirubin, total 0.5 mg/dL 0.1-1. 2 normal Not Available [facility] [address] [place] [address], [address], 03/17/2019 08:18:43 03/17/2003/17/2019 CMP, serum or plasm a alkaline phosphatase 105 U/L 35-105 normal Not Available [facility] [address] [place] [address], [address], 03/17/2019 08:18:43 03/17/2003/17/2019 CMP, serum or plasm a AST 17 U/L 0-32 normal Not Available [facility] [address] [place] [address], [address], 03/17/2019 08:18:43 03/17/2003/17/2019 CMP, serum or plasm a ALT 12 U/L 0-33 normal Not Available [facility] [address] [place] [address], [address], 03/17/2019 08:18:43 03/17/2003/17/2019 CMP, serum or plasm a GFR 109 >= 60 normal Not Available [facility] [address] [place] [address], [address], 03/17/2019 08:18:43 03/17/2003/17/2019 CMP, serum or plasm a GFR non- 94 >= 60 normal NOT E NEW calcu latio n for GFR is based on the Natio nal Kidne y Found ation CKD-E PI equat ion and allow s for repor ting GFR value s great er than 60 mL/mi n/1.7 3 m2. This calcu latio n has not been valid ated for patie nts less than 18 yrs., pregn ant women and Hispa nics. Chron ic kidne y disea se is defin ed as kidne y damag e or GFR less than 60 mL/mi n/1.7 3 m2 for 3 month s or longe r. Not Available [facility] [address] [place] [address], [address], 03/17/2019 08:18:43 03/17/2003/17/2019 carci noemb ryoni c Ag, quant , serum or plasm a carcinoembry onic Ag 3.4 NG/mL 0.0-4. 6 normal This test was perfo rmed using the Anna Awilda E601 elect anna milum inesc ent metho d. Value s obtai glory from diffe rent assay metho ds canno t be used inter mora eably . Not Available [facility] [address] [place] [address], [address], 03/17/2019 08:51:43 03/15/20 20 03/15/2020 CBC w/ auto diff white blood cells 8.7 K/uL 3.8-10 .8 normal Not Available [facility] [address] [place] [address], [address], 03/15/2020 08:05:04 03/15/20 20 03/15/2020 CBC w/ auto diff red blood cells 4.26 M/uL 3.80-5 .20 normal Not Available [facility] [address] [place] [address], [address], 03/15/2020 08:05:04 03/15/20 20 03/15/2020 CBC w/ auto diff hemoglobin 13.5 g/dL 12.0-1 6.0 normal Not Available [facility] [address] [place] [address], [address], 03/15/2020 08:05:04 03/15/20 20 03/15/2020 CBC w/ auto diff hematocrit 38.7 % 35.0-4 7.0 normal Not Available [facility] [address] [place] [address], [address], 03/15/2020 08:05:04 03/15/20 20 03/15/2020 CBC w/ auto diff MCV 91 fL 80-100 normal Not Available [facility] [address] [place] [address], [address], 03/15/2020 08:05:04 03/15/20 20 03/15/2020 CBC w/ auto diff MCH 32 pg 26-35 normal Not Available [facility] [address] [place] [address], [address], 03/15/2020 08:05:04 03/15/20 20 03/15/2020 CBC w/ auto diff MCHC 35 g/dL 32-36 normal Not Available [facility] [address] [place] [address], [address], 03/15/2020 08:05:04 03/15/20 20 03/15/2020 CBC w/ auto diff RDW 12.7 % 11.0-1 5.0 normal Not Available [facility] [address] [place] [address], [address], 03/15/2020 08:05:04 03/15/20 20 03/15/2020 CBC w/ auto diff MPV 9.8 fL 6.2-10 .5 normal Not Available [facility] [address] [place] [address], [address], 03/15/2020 08:05:04 03/15/20 20 03/15/2020 CBC w/ auto diff platelet count 225 K/uL 130-40 0 normal Not Available [facility] [address] [place] [address], [address], 03/15/2020 08:05:04 03/15/20 20 03/15/2020 CBC w/ auto diff neutrophil,a bsolute 5.3 K/uL 1.6-8. 4 normal Not Available [facility] [address] [place] [address], [address], 03/15/2020 08:05:04 03/15/20 20 03/15/2020 CBC w/ auto diff lymphocyte,a bsolute 2.2 K/uL 0.4-5. 1 normal Not Available [facility] [address] [place] [address], [address], 03/15/2020 08:05:04 03/15/20 20 03/15/2020 CBC w/ auto diff monocyte,abs olute 0.5 K/uL 0.0-1. 2 normal Not Available [facility] [address] [place] [address], [address], 03/15/2020 08:05:04 03/15/20 20 03/15/2020 CBC w/ auto diff eosinophil,a bsolute 0.6 K/uL 0.0-0. 8 normal Not Available [facility] [address] [place] [address], [address], 03/15/2020 08:05:04 03/15/20 20 03/15/2020 CBC w/ auto diff basophil,abs olute 0.1 K/uL 0.0-0. 3 normal Not Available [facility] [address] [place] [address], [address], 03/15/2020 08:05:04 03/15/20 20 03/15/2020 CBC w/ auto diff % neutrophils 60.9 % 42.0-7 8.0 normal Not Available [facility] [address] [place] [address], [address], 03/15/2020 08:05:04 03/15/20 20 03/15/2020 CBC w/ auto diff % lymphocytes 25.5 % 11.0-4 7.0 normal Not Available [facility] [address] [place] [address], [address], 03/15/2020 08:05:04 03/15/20 20 03/15/2020 CBC w/ auto diff % monocytes 5.8 % 0.0-11 .0 normal Not Available [facility] [address] [place] [address], [address], 03/15/2020 08:05:04 03/15/20 20 03/15/2020 CBC w/ auto diff % eosinophils 7.1 % 0.0-7. 0 high Not Available [facility] [address] [place] [address], [address], 03/15/2020 08:05:04 03/15/20 20 03/15/2020 CBC w/ auto diff % basophils 0.7 % 0.0-3. 0 normal Not Available [facility] [address] [place] [address], [address], 03/15/2020 08:05:04 03/15/20 20 03/15/2020 CBC w/ auto diff nucleated red cells 0.1 % 0.0-0. 9 normal Not Available [facility] [address] [place] [address], [address], 03/15/2020 08:05:04 03/15/20 20 03/15/2020 CBC w/ auto diff nucleated RBCs, absolute 0.01 K/uL not estab. normal Not Available [facility] [address] [place] [address], [address], 03/15/2020 08:05:04 03/15/20 20 03/15/2020 CMP, serum or plasm a glucose 106 mg/dL 74-100 high Not Available [facility] [address] [place] [address], [address], 03/15/2020 08:30:34 03/15/20 20 03/15/2020 CMP, serum or plasm a blood urea nitrogen 12 mg/dL 6-20 normal Not Available [facility] [address] [place] [address], [address], 03/15/2020 08:30:34 03/15/20 20 03/15/2020 CMP, serum or plasm a creatinine 0.67 mg/dL 0.50-0 .95 normal Not Available [facility] [address] [place] [address], [address], 03/15/2020 08:30:34 03/15/20 20 03/15/2020 CMP, serum or plasm a BUN/creatini ne ratio 18 (calc ) 10-20 normal Not Available [facility] [address] [place] [address], [address], 03/15/2020 08:30:34 03/15/20 20 03/15/2020 CMP, serum or plasm a sodium 138 mmol/ L 136-14 5 normal Not Available [facility] [address] [place] [address], [address], 03/15/2020 08:30:34 03/15/20 20 03/15/2020 CMP, serum or plasm a potassium 3.4 mmol/ L 3.4-5. 0 normal Not Available [facility] [address] [place] [address], [address], 03/15/2020 08:30:34 03/15/20 20 03/15/2020 CMP, serum or plasm a chloride 102 mmol/ L 98-107 normal Not Available [facility] [address] [place] [address], [address], 03/15/2020 08:30:34 03/15/20 20 03/15/2020 CMP, serum or plasm a carbon dioxide 26 mmol/ L 20-32 normal Not Available [facility] [address] [place] [address], [address], 03/15/2020 08:30:34 03/15/20 20 03/15/2020 CMP, serum or plasm a anion gap 10 (calc ) 7-25 normal Not Available [facility] [address] [place] [address], [address], 03/15/2020 08:30:34 03/15/20 20 03/15/2020 CMP, serum or plasm a calcium 9.4 mg/dL 8.6-10 .2 normal Not Available [facility] [address] [place] [address], [address], 03/15/2020 08:30:34 03/15/20 20 03/15/2020 CMP, serum or plasm a total protein 6.7 g/dL 6.4-8. 3 normal Not Available [facility] [address] [place] [address], [address], 03/15/2020 08:30:34 03/15/20 20 03/15/2020 CMP, serum or plasm a albumin 3.9 g/dL 3.5-5. 2 normal Not Available [facility] [address] [place] [address], [address], 03/15/2020 08:30:34 03/15/20 20 03/15/2020 CMP, serum or plasm a globulin 2.8 g/dL_ (calc ) 1.5-4. 5 normal Not Available [facility] [address] [place] [address], [address], 03/15/2020 08:30:34 03/15/20 20 03/15/2020 CMP, serum or plasm a albumin/glob ulin ratio 1.4 (calc ) 1.1-2. 5 normal Not Available [facility] [address] [place] [address], [address], 03/15/2020 08:30:34 03/15/20 20 03/15/2020 CMP, serum or plasm a bilirubin, total 0.4 mg/dL 0.1-1. 2 normal Not Available [facility] [address] [place] [address], [address], 03/15/2020 08:30:34 03/15/20 20 03/15/2020 CMP, serum or plasm a alkaline phosphatase 91 U/L 35-105 normal Not Available [facility] [address] [place] [address], [address], 03/15/2020 08:30:34 03/15/20 20 03/15/2020 CMP, serum or plasm a AST 23 U/L 0-32 normal Not Available [facility] [address] [place] [address], [address], 03/15/2020 08:30:34 03/15/2003/15/2020 CMP, serum or plasm a ALT 21 U/L 0-33 normal Not Available [facility] [address] [place] [address], [address], 03/15/2020 08:30:34 03/15/20 20 03/15/2020 CMP, serum or plasm a GFR 103 >= 60 normal Not Available [facility] [address] [place] [address], [address], 03/15/2020 08:30:34 03/15/20 20 03/15/2020 CMP, serum or plasm a GFR non- 89 >= 60 normal NOT E NEW calcu latio n for GFR is based on the Natio nal Kidne y Found ation CKD-E PI equat ion and allow s for repor ting GFR value s great er than 60 mL/mi n/1.7 3 m2. This calcu latio n has not been valid ated for patie nts less than 18 yrs., pregn ant women and Hispa nics. Chron ic kidne y disea se is defin ed as kidne y damag e or GFR less than 60 mL/mi n/1.7 3 m2 for 3 month s or longe r. Not Available [facility] [address] [place] [address], [address], 03/15/2020 08:30:34 03/15/2003/15/2020 carci noemb ryoni c Ag, quant , serum or plasm a carcinoembry onic Ag 3.3 NG/mL 0.0-4. 6 normal This test was perfo rmed using the Anna Awilda E601 [facility]. Value s obtai glory from diffe rent assay metho ds canno t be used inter mora eably . Not Available [facility] [place], [address], 03/15/2020 08:47:54 03/20/20 21 03/20/2021 COMPL ETE BLOOD COUNT white blood cells 10.7 K/uL 3.8-10 .8 normal Not Available [facility] [place], [address], 03/20/2021 09:33:27 03/20/20 21 03/20/2021 COMPL ETE BLOOD COUNT red blood cells 4.31 M/uL 3.80-5 .20 normal Not Available [facility] [address] [place], [address], 03/20/2021 09:33:27 03/20/20 21 03/20/2021 COMPL ETE BLOOD COUNT hemoglobin 13.7 g/dL 12.0-1 6.0 normal Not Available [facility] [place], [address], 03/20/2021 09:33:27 03/20/20 21 03/20/2021 COMPL ETE BLOOD COUNT hematocrit 39.4 % 35.0-4 7.0 normal Not Available [facility] [address] [place] [address], [address], 03/20/2021 09:33:27 03/20/20 21 03/20/2021 COMPL ETE BLOOD COUNT MCV 91 fL 80-100 normal Not Available [facility] [address] [place] [address], [address], 03/20/2021 09:33:27 03/20/20 21 03/20/2021 COMPL ETE BLOOD COUNT MCH 32 pg 26-35 normal Not Available [facility] [address] [place] [address], [address], 03/20/2021 09:33:27 03/20/20 21 03/20/2021 COMPL ETE BLOOD COUNT MCHC 35 g/dL 32-36 normal Not Available [facility] [address] [place] [address], [address], 03/20/2021 09:33:27 03/20/20 21 03/20/2021 COMPL ETE BLOOD COUNT RDW 13.1 % 11.0-1 5.0 normal Not Available [facility] [address] [place] [address], [address], 03/20/2021 09:33:27 03/20/20 21 03/20/2021 COMPL ETE BLOOD COUNT MPV 9.4 fL 6.2-10 .5 normal Not Available [facility] [address] [place] [address], [address], 03/20/2021 09:33:27 03/20/20 21 03/20/2021 COMPL ETE BLOOD COUNT platelet count 264 K/uL 130-40 0 normal Not Available [facility] [address] [place] [address], [address], 03/20/2021 09:33:27 03/20/20 21 03/20/2021 COMPL ETE BLOOD COUNT neutrophil,a bsolute 6.0 K/uL 1.6-8. 4 normal Not Available [facility] [address] [place] [address], [address], 03/20/2021 09:33:27 03/20/20 21 03/20/2021 COMPL ETE BLOOD COUNT lymphocyte,a bsolute 2.8 K/uL 0.4-5. 1 normal Not Available [facility] [address] [place] [address], [address], 03/20/2021 09:33:27 03/20/20 21 03/20/2021 COMPL ETE BLOOD COUNT monocyte,abs olute 0.7 K/uL 0.0-1. 2 normal Not Available [facility] [address] [place] [address], [address], 03/20/2021 09:33:27 03/20/20 21 03/20/2021 COMPL ETE BLOOD COUNT eosinophil,a bsolute 1.1 K/uL 0.0-0. 8 high Not Available [facility] [address] [place] [address], [address], 03/20/2021 09:33:27 03/20/20 21 03/20/2021 COMPL ETE BLOOD COUNT basophil,abs olute 0.1 K/uL 0.0-0. 3 normal Not Available [facility] [address] [place] [address], [address], 03/20/2021 09:33:27 03/20/20 21 03/20/2021 COMPL ETE BLOOD COUNT % neutrophils 56.2 % 42.0-7 8.0 normal Not Available [facility] [address] [place] [address], [address], 03/20/2021 09:33:27 03/20/20 21 03/20/2021 COMPL ETE BLOOD COUNT % lymphocytes 26.2 % 11.0-4 7.0 normal Not Available [facility] [address] [place] [address], [address], 03/20/2021 09:33:27 03/20/20 21 03/20/2021 COMPL ETE BLOOD COUNT % monocytes 6.2 % 0.0-11 .0 normal Not Available [facility] [address] [place] [address], [address], 03/20/2021 09:33:27 03/20/20 21 03/20/2021 COMPL ETE BLOOD COUNT % eosinophils 10.6 % 0.0-7. 0 high Not Available [facility] [address] [place] [address], [address], 03/20/2021 09:33:27 03/20/20 21 03/20/2021 COMPL ETE BLOOD COUNT % basophils 0.8 % 0.0-3. 0 normal Not Available [facility] [address] [place] [address], [address], 03/20/2021 09:33:27 03/20/20 21 03/20/2021 COMPL ETE BLOOD COUNT nucleated red cells 0.0 % 0.0-0. 9 normal Not Available [facility] [address] [place] [address], [address], 03/20/2021 09:33:27 03/20/20 21 03/20/2021 COMPL ETE BLOOD COUNT nucleated RBCs, absolute 0.00 K/uL not estab. normal Not Available [facility] [address] [place] [address], [address], 03/20/2021 09:33:27 03/20/2003/20/2021 COMP. METAB OLIC PANEL glucose 91 mg/dL 74-100 normal Not Available [facility] [address] [place] [address], [address], 03/20/2021 10:02:18 03/20/20 21 03/20/2021 COMP. METAB OLIC PANEL blood urea nitrogen 18 mg/dL 6-20 normal Not Available [facility] [address] [place] [address], [address], 03/20/2021 10:02:18 03/20/20 21 03/20/2021 COMP. METAB OLIC PANEL creatinine 0.69 mg/dL 0.50-0 .95 normal Not Available [facility] [address] [place] [address], [address], 03/20/2021 10:02:18 03/20/20 21 03/20/2021 COMP. METAB OLIC PANEL BUN/creatini ne ratio 26 (calc ) 10-20 high Not Available [facility] [address] [place] [address], [address], 03/20/2021 10:02:18 03/20/20 21 03/20/2021 COMP. METAB OLIC PANEL sodium 143 mmol/ L 136-14 5 normal Not Available [facility] [address] [place] [address], [address], 03/20/2021 10:02:18 03/20/20 21 03/20/2021 COMP. METAB OLIC PANEL potassium 3.8 mmol/ L 3.4-5. 0 normal Not Available [facility] [address] [place] [address], [address], 03/20/2021 10:02:18 03/20/20 21 03/20/2021 COMP. METAB OLIC PANEL chloride 104 mmol/ L 98-107 normal Not Available [facility] [address] [place] [address], [address], 03/20/2021 10:02:18 03/20/20 21 03/20/2021 COMP. METAB OLIC PANEL carbon dioxide 29 mmol/ L 22-31 normal Not Available [facility] [address] [place] [address], [address], 03/20/2021 10:02:18 03/20/20 21 03/20/2021 COMP. METAB OLIC PANEL anion gap 10 (calc ) 7-25 normal Not Available [facility] [address] [place] [address], [address], 03/20/2021 10:02:18 03/20/20 21 03/20/2021 COMP. METAB OLIC PANEL calcium 10.0 mg/dL 8.6-10 .2 normal Not Available [facility] [address] [place] [address], [address], 03/20/2021 10:02:18 03/20/20 21 03/20/2021 COMP. METAB OLIC PANEL total protein 6.8 g/dL 6.4-8. 3 normal Not Available [facility] [address] [place] [address], [address], 03/20/2021 10:02:18 03/20/20 21 03/20/2021 COMP. METAB OLIC PANEL albumin 4.2 g/dL 3.5-5. 2 normal Not Available [facility] [address] [place] [address], [address], 03/20/2021 10:02:18 03/20/20 21 03/20/2021 COMP. METAB OLIC PANEL globulin 2.6 g/dL_ (calc ) 1.5-4. 5 normal Not Available [facility] [address] [place] [address], [address], 03/20/2021 10:02:18 03/20/20 21 03/20/2021 COMP. METAB OLIC PANEL albumin/glob ulin ratio 1.6 (calc ) 1.1-2. 5 normal Not Available [facility] [address] [place] [address], [address], 03/20/2021 10:02:18 03/20/20 21 03/20/2021 COMP. METAB OLIC PANEL bilirubin, total 0.4 mg/dL 0.1-1. 2 normal Not Available [facility] [address] [place] [address], [address], 03/20/2021 10:02:18 03/20/20 21 03/20/2021 COMP. METAB OLIC PANEL alkaline phosphatase 98 U/L 35-106 normal Not Available [facility] [address] [place] [address], [address], 03/20/2021 10:02:18 03/20/20 21 03/20/2021 COMP. METAB OLIC PANEL AST 21 U/L 0-32 normal Not Available [facility] [address] [place] [address], [address], 03/20/2021 10:02:18 03/20/20 21 03/20/2021 COMP. METAB OLIC PANEL ALT 16 U/L 0-33 normal Not Available [facility] [address] [place] [address], [address], 03/20/2021 10:02:18 03/20/20 21 03/20/2021 COMP. METAB OLIC PANEL GFR 101 >= 60 normal Not Available [facility] [address] [place], [address], 03/20/2021 10:02:18 03/20/20 21 03/20/2021 COMP. METAB OLIC PANEL GFR non- 87 >= 60 normal NOT E Chron ic kidne y disea se is defin ed as kidne y damag e for more than 3 month s or a GFR less than 60 mL/mi n/1.7 3 m2 for great er than 3 month s. This calcu latio n has not been valid ated in pregn ant women . For pedia tric patie nts refer to [facility] https ://alberto arango.o rg/pr ofmaile ional s/KDO QI/gf r_cal culat orPed Not Available [facility] [address] [place] [address], [phone], 03/20/2021 10:02:18 03/20/20 21 03/20/2021 CARCI NOEMB RYONI C AG carcinoembry onic Ag 5.0 NG/mL 0.0-4. 7 high This test was perfo rmed using the Anna Awilda E801 elect anna milum inesc ent metho d. Value s obtai glory from diffe rent assay metho ds canno t be used inter mora eaolafy . . Not Available [facility] [address] [place] [address], [address], 03/20/2021 10:32:07 03/23/20 22 03/23/2022 COMPL ETE BLOOD COUNT white blood cells 14.0 K/uL 3.8-10 .8 high Not Available [facility] [address] [place] [address], [address], 03/23/2022 09:31:42 03/23/20 22 03/23/2022 COMPL ETE BLOOD COUNT red blood cells 4.33 M/uL 3.80-5 .20 normal Not Available [facility] [address] [place] [address], [address], 03/23/2022 09:31:42 03/23/20 22 03/23/2022 COMPL ETE BLOOD COUNT hemoglobin 13.3 g/dL 12.0-1 6.0 normal Not Available [facility] [address] [place] [address], [address], 03/23/2022 09:31:42 03/23/20 22 03/23/2022 COMPL ETE BLOOD COUNT hematocrit 39.2 % 35.0-4 7.0 normal Not Available [facility] [address] [place] [address], [address], 03/23/2022 09:31:42 03/23/20 22 03/23/2022 COMPL ETE BLOOD COUNT MCV 91 fL 80-100 normal Not Available [facility] [address] [place] [address], [address], 03/23/2022 09:31:42 03/23/20 22 03/23/2022 COMPL ETE BLOOD COUNT MCH 31 pg 26-35 normal Not Available [facility] [address] [place] [address], [address], 03/23/2022 09:31:42 03/23/20 22 03/23/2022 COMPL ETE BLOOD COUNT MCHC 34 g/dL 32-36 normal Not Available [facility] [address] [place] [address], [address], 03/23/2022 09:31:42 03/23/20 22 03/23/2022 COMPL ETE BLOOD COUNT RDW 13.2 % 11.0-1 5.0 normal Not Available [facility] [address] [place] [address], [address], 03/23/2022 09:31:42 03/23/20 22 03/23/2022 COMPL ETE BLOOD COUNT MPV 9.6 fL 6.2-10 .5 normal Not Available [facility] [address] [place] [address], [address], 03/23/2022 09:31:42 03/23/20 22 03/23/2022 COMPL ETE BLOOD COUNT platelet count 248 K/uL 130-40 0 normal Not Available [facility] [address] [place] [address], [address], 03/23/2022 09:31:42 03/23/20 22 03/23/2022 COMPL ETE BLOOD COUNT neutrophil,a bsolute 9.3 K/uL 1.6-8. 4 high Not Available [facility] [address] [place] [address], [address], 03/23/2022 09:31:42 03/23/20 22 03/23/2022 COMPL ETE BLOOD COUNT lymphocyte,a bsolute 3.0 K/uL 0.4-5. 1 normal Not Available [facility] [address] [place] [address], [address], 03/23/2022 09:31:42 03/23/20 22 03/23/2022 COMPL ETE BLOOD COUNT monocyte,abs olute 0.7 K/uL 0.0-1. 2 normal Not Available [facility] [address] [place] [address], [address], 03/23/2022 09:31:42 03/23/20 22 03/23/2022 COMPL ETE BLOOD COUNT eosinophil,a bsolute 0.8 K/uL 0.0-0. 8 normal Not Available [facility] [address] [place] [address], [address], 03/23/2022 09:31:42 03/23/20 22 03/23/2022 COMPL ETE BLOOD COUNT basophil,abs olute 0.2 K/uL 0.0-0. 3 normal Not Available [facility] [address] [place] [address], [address], 03/23/2022 09:31:42 03/23/20 22 03/23/2022 COMPL ETE BLOOD COUNT % neutrophils 66.7 % 42.0-7 8.0 normal Not Available [facility] [address] [place] [address], [address], 03/23/2022 09:31:42 03/23/20 22 03/23/2022 COMPL ETE BLOOD COUNT % lymphocytes 21.2 % 11.0-4 7.0 normal Not Available [facility] [address] [place] [address], [address], 03/23/2022 09:31:42 03/23/20 22 03/23/2022 COMPL ETE BLOOD COUNT % monocytes 5.1 % 0.0-11 .0 normal Not Available [facility] [address] [place] [address], [address], 03/23/2022 09:31:42 03/23/20 22 03/23/2022 COMPL ETE BLOOD COUNT % eosinophils 5.8 % 0.0-7. 0 normal Not Available [facility] [address] [place] [address], [address], 03/23/2022 09:31:42 03/23/20 22 03/23/2022 COMPL ETE BLOOD COUNT % basophils 1.2 % 0.0-3. 0 normal Not Available [facility] [address] [place] [address], [address], 03/23/2022 09:31:42 03/23/20 22 03/23/2022 COMPL ETE BLOOD COUNT nucleated red cells 0.1 % 0.0-0. 9 normal Not Available [facility] [address] [place] [address], [address], 03/23/2022 09:31:42 03/23/20 22 03/23/2022 COMPL ETE BLOOD COUNT nucleated RBCs, absolute 0.01 K/uL not estab. normal Not Available [facility] [address] [place] [address], [address], 03/23/2022 09:31:42 03/23/20 22 03/23/2022 COMP. METAB OLIC PANEL glucose 116 mg/dL 74-100 high Not Available [facility] [address] [place] [address], [address], 03/23/2022 09:57:08 03/23/20 22 03/23/2022 COMP. METAB OLIC PANEL blood urea nitrogen 15 mg/dL 6-20 normal Not Available [facility] [address] [place] [address], [address], 03/23/2022 09:57:08 03/23/20 22 03/23/2022 COMP. METAB OLIC PANEL creatinine 0.67 mg/dL 0.50-0 .95 normal Not Available [facility] [address] [place] [address], [address], 03/23/2022 09:57:08 03/23/20 22 03/23/2022 COMP. METAB OLIC PANEL BUN/creatini ne ratio 22 (calc ) 10-20 high Not Available [facility] [address] [place] [address], [address], 03/23/2022 09:57:08 03/23/20 22 03/23/2022 COMP. METAB OLIC PANEL sodium 141 mmol/ L 136-14 5 normal Not Available [facility] [address] [place] [address], [address], 03/23/2022 09:57:08 03/23/20 22 03/23/2022 COMP. METAB OLIC PANEL potassium 3.3 mmol/ L 3.4-5. 0 low Not Available [facility] [address] [place] [address], [address], 03/23/2022 09:57:08 03/23/20 22 03/23/2022 COMP. METAB OLIC PANEL chloride 103 mmol/ L 98-107 normal Not Available [facility] [address] [place] [address], [address], 03/23/2022 09:57:08 03/23/20 22 03/23/2022 COMP. METAB OLIC PANEL carbon dioxide 27 mmol/ L 22-31 normal Not Available [facility] [address] [place] [address], [address], 03/23/2022 09:57:08 03/23/20 22 03/23/2022 COMP. METAB OLIC PANEL anion gap 11 (calc ) 7-25 normal Not Available [facility] [address] [place] [address], [address], 03/23/2022 09:57:08 03/23/20 22 03/23/2022 COMP. METAB OLIC PANEL calcium 9.5 mg/dL 8.6-10 .2 normal Not Available [facility] [address] [place] [address], [address], 03/23/2022 09:57:08 03/23/20 22 03/23/2022 COMP. METAB OLIC PANEL total protein 7.0 g/dL 6.4-8. 3 normal Not Available [facility] [address] [place] [address], [address], 03/23/2022 09:57:08 03/23/20 22 03/23/2022 COMP. METAB OLIC PANEL albumin 4.2 g/dL 3.5-5. 2 normal Not Available [facility] [address] [place] [address], [address], 03/23/2022 09:57:08 03/23/20 22 03/23/2022 COMP. METAB OLIC PANEL globulin 2.8 g/dL_ (calc ) 1.5-4. 5 normal Not Available [facility] [address] [place] [address], [address], 03/23/2022 09:57:08 03/23/20 22 03/23/2022 COMP. METAB OLIC PANEL albumin/glob ulin ratio 1.5 (calc ) 1.1-2. 5 normal Not Available [facility] [address] [place] [address], [address], 03/23/2022 09:57:08 03/23/20 22 03/23/2022 COMP. METAB OLIC PANEL bilirubin, total 0.4 mg/dL 0.1-1. 2 normal Not Available [facility] [address] [place] [address], [address], 03/23/2022 09:57:08 03/23/20 22 03/23/2022 COMP. METAB OLIC PANEL alkaline phosphatase 104 U/L 30-121 normal Not Available [facility] [address] [place] [address], [address], 03/23/2022 09:57:08 03/23/20 22 03/23/2022 COMP. METAB OLIC PANEL AST 19 U/L 0-32 normal Not Available [facility] [address] [place] [address], [address], 03/23/2022 09:57:08 03/23/20 22 03/23/2022 COMP. METAB OLIC PANEL ALT 17 U/L 0-33 normal Not Available [facility] [place], [address], 03/23/2022 09:57:08 03/23/20 22 03/23/2022 COMP. METAB OLIC PANEL GFR 92 >= 60 normal NOT E New calcu latio n for GFR (CKD- EPI 2020) is formu lated witho ut race adjus tment facto rs at the recom menda tion of the [facility] [employer] at[facility] and [facility] Nephr ology . This calcu latio n has not been valid ated in pregn ant women . For pedia tric patie nts refer to https ://alberto w.mary solisy.o rg/pr mattieess ional s/KDO QI/gf r_cal culat orPed Not Available [facility] [place], [address], 03/23/2022 09:57:08 03/23/20 22 03/23/2022 CARCI NOEMB RYONI C AG carcinoembry onic Ag 4.2 NG/mL 0.0-4. 7 normal This test was perfo rmed using the Anna Awilda E801 elect anna milum inesc ent metho d. Value s obtai glory from diffe rent assay metho ds canno t be used inter mora eably . . Not Available [facility] [address] [place], [address], 03/23/2022 10:04:18 03/29/20 23 03/29/2023 COMPL ETE BLOOD COUNT white blood cells 12.7 10*3/ uL 3.8-10 .8 high Not Available [facility] [address] [place], [address], 03/29/2023 09:26:57 03/29/20 23 03/29/2023 COMPL ETE BLOOD COUNT red blood cells 4.66 10*6/ uL 3.80-5 .20 normal Not Available [facility] [address] [place] [address], [address], 03/29/2023 09:26:57 03/29/2003/29/2023 COMPL ETE BLOOD COUNT hemoglobin 14.4 g/dL 12.0-1 6.0 normal Not Available [facility] [address] [place] [address], [address], 03/29/2023 09:26:57 03/29/20 23 03/29/2023 COMPL ETE BLOOD COUNT hematocrit 42.6 % 35.0-4 7.0 normal Not Available [facility] [address] [place] [address], [address], 03/29/2023 09:26:57 03/29/2003/29/2023 COMPL ETE BLOOD COUNT MCV 92 fL 80-100 normal Not Available [facility] [address] [place] [address], [address], 03/29/2023 09:26:57 03/29/2003/29/2023 COMPL ETE BLOOD COUNT MCH 31 pg 26-35 normal Not Available [facility] [address] [place] [address], [address], 03/29/2023 09:26:57 03/29/2003/29/2023 COMPL ETE BLOOD COUNT MCHC 34 g/dL 32-36 normal Not Available [facility] [address] [place] [address], [address], 03/29/2023 09:26:57 03/29/2003/29/2023 COMPL ETE BLOOD COUNT RDW 13.7 % 11.0-1 5.0 normal Not Available [facility] [address] [place] [address], [address], 03/29/2023 09:26:57 07/07/20 23 03/29/2023 COMPL ETE BLOOD COUNT MPV 9.7 fL 6.2-10 .5 normal Not Available [facility] [address] [place] [address], [address], 03/29/2023 09:26:57 03/29/20 23 03/29/2023 COMPL ETE BLOOD COUNT platelet count 254 10*3/ uL 130-40 0 normal Not Available [facility] [address] [place] [address], [address], 03/29/2023 09:26:57 03/29/20 23 03/29/2023 COMPL ETE BLOOD COUNT neutrophil,a bsolute 8.9 10*3/ uL 1.6-8. 4 high Not Available [facility] [address] [place] [address], [address], 03/29/2023 09:26:57 03/29/20 23 03/29/2023 COMPL ETE BLOOD COUNT lymphocyte,a bsolute 2.7 10*3/ uL 0.4-5. 1 normal Not Available [facility] [address] [place] [address], [address], 03/29/2023 09:26:57 03/29/2003/29/2023 COMPL ETE BLOOD COUNT monocyte,abs olute 0.7 10*3/ uL 0.0-1. 2 normal Not Available [facility] [address] [place] [address], [address], 03/29/2023 09:26:57 03/29/2003/29/2023 COMPL ETE BLOOD COUNT eosinophil,a bsolute 0.3 10*3/ uL 0.0-0. 8 normal Not Available [facility] [address] [place] [address], [address], 03/29/2023 09:26:57 03/29/20 23 03/29/2023 COMPL ETE BLOOD COUNT basophil,abs olute 0.1 10*3/ uL 0.0-0. 3 normal Not Available [facility] [address] [place] [address], [address], 03/29/2023 09:26:57 03/29/20 23 03/29/2023 COMPL ETE BLOOD COUNT % neutrophils 70.2 % 42.0-7 8.0 normal Not Available [facility] [address] [place] [address], [address], 03/29/2023 09:26:57 03/29/20 23 03/29/2023 COMPL ETE BLOOD COUNT % lymphocytes 20.9 % 11.0-4 7.0 normal Not Available [facility] [address] [place] [address], [address], 03/29/2023 09:26:57 03/29/20 23 03/29/2023 COMPL ETE BLOOD COUNT % monocytes 5.6 % 0.0-11 .0 normal Not Available [facility] [address] [place] [address], [address], 03/29/2023 09:26:57 03/29/20 23 03/29/2023 COMPL ETE BLOOD COUNT % eosinophils 2.7 % 0.0-7. 0 normal Not Available [facility] [address] [place] [address], [address], 03/29/2023 09:26:57 03/29/20 23 03/29/2023 COMPL ETE BLOOD COUNT % basophils 0.6 % 0.0-3. 0 normal Not Available [facility] [address] [place] [address], [address], 03/29/2023 09:26:57 03/29/20 23 03/29/2023 COMPL ETE BLOOD COUNT nucleated red cells 0.0 % 0.0-0. 9 normal Not Available [facility] [address] [place] [address], [address], 03/29/2023 09:26:57 03/29/20 23 03/29/2023 COMPL ETE BLOOD COUNT nucleated RBCs, absolute 0.00 10*3/ uL not estab. normal Not Available [facility] [address] [place] [address], [address], 03/29/2023 09:26:57 03/29/20 23 03/29/2023 COMP. METAB OLIC PANEL glucose 108 mg/dL 74-100 high Not Available [facility] [address] [place] [address], [address], 03/29/2023 09:52:28 03/29/20 23 03/29/2023 COMP. METAB OLIC PANEL blood urea nitrogen 16 mg/dL 6-20 normal Not Available [facility] [address] [place] [address], [address], 03/29/2023 09:52:28 03/29/20 23 03/29/2023 COMP. METAB OLIC PANEL creatinine 0.69 mg/dL 0.50-0 .95 normal Not Available [facility] [address] [place] [address], [address], 03/29/2023 09:52:28 03/29/20 23 03/29/2023 COMP. METAB OLIC PANEL BUN/creatini ne ratio 23 (calc ) 10-20 high Not Available [facility] [address] [place] [address], [address], 03/29/2023 09:52:28 03/29/20 23 03/29/2023 COMP. METAB OLIC PANEL sodium 140 mmol/ L 136-14 5 normal Not Available [facility] [address] [place] [address], [address], 03/29/2023 09:52:28 03/29/20 23 03/29/2023 COMP. METAB OLIC PANEL potassium 3.9 mmol/ L 3.4-5. 0 normal Not Available [facility] [address] [place] [address], [address], 03/29/2023 09:52:28 03/29/20 23 03/29/2023 COMP. METAB OLIC PANEL chloride 102 mmol/ L 98-107 normal Not Available [facility] [address] [place] [address], [address], 03/29/2023 09:52:28 03/29/20 23 03/29/2023 COMP. METAB OLIC PANEL carbon dioxide 28 mmol/ L 22-31 normal Not Available [facility] [address] [place] [address], [address], 03/29/2023 09:52:28 03/29/20 23 03/29/2023 COMP. METAB OLIC PANEL anion gap 10 (calc ) 7-25 normal Not Available [facility] [address] [place] [address], [address], 03/29/2023 09:52:28 03/29/20 23 03/29/2023 COMP. METAB OLIC PANEL calcium 9.7 mg/dL 8.6-10 .2 normal Not Available [facility] [address] [place] [address], [address], 03/29/2023 09:52:28 03/29/20 23 03/29/2023 COMP. METAB OLIC PANEL total protein 7.4 g/dL 6.4-8. 3 normal Not Available [facility] [address] [place] [address], [address], 03/29/2023 09:52:28 03/29/20 23 03/29/2023 COMP. METAB OLIC PANEL albumin 4.4 g/dL 3.5-5. 2 normal Not Available [facility] [address] [place] [address], [address], 03/29/2023 09:52:28 03/29/20 23 03/29/2023 COMP. METAB OLIC PANEL globulin 3.0 1.5-4. 5 normal Not Available [facility] [address] [place] [address], [address], 03/29/2023 09:52:28 03/29/20 23 03/29/2023 COMP. METAB OLIC PANEL albumin/glob ulin ratio 1.5 (calc ) 1.1-2. 5 normal Not Available [facility] [address] [place] [address], [address], 03/29/2023 09:52:28 03/29/20 23 03/29/2023 COMP. METAB OLIC PANEL bilirubin, total 0.6 mg/dL 0.1-1. 2 normal Not Available [facility] [address] [place] [address], [id number], 03/29/2023 09:52:28 03/29/20 23 03/29/2023 COMP. METAB OLIC PANEL alkaline phosphatase 107 U/L 30-121 normal Not Available [facility] [address] [place] [address], [phone], 03/29/2023 09:52:28 03/29/20 23 03/29/2023 COMP. METAB OLIC PANEL AST 29 U/L 0-32 normal Not Available [facility] [facility] [address] [place] [address], [phone], 03/29/2023 09:52:28 03/29/20 23 03/29/2023 COMP. METAB OLIC PANEL ALT 36 U/L 0-33 high Not Available [facility] [address] [place] [address], [phone], 03/29/2023 09:52:28 03/29/20 23 03/29/2023 COMP. METAB OLIC PANEL GFR 91 >= 60 normal NOT E New calcu latio n for GFR (CKD- EPI 2020) is formu lated witho ut race adjus tment facto rs at [facility] menda tion of the [facility] ty of Nephr ology . This calcu latio n has not been valid ated in pregn ant women . For pedia tric patie nts refer to https ://alberto arango.evie miranda/pr vinh solis s/KDO QI/gf r_cal culat orPed Not Available [facility] [address] [place], [address], 03/29/2023 09:52:28 03/29/20 23 03/29/2023 CARCI NOEMB RYONI C AG carcinoembry onic Ag 4.6 NG/mL 0.0-4. 7 normal This test was perfo rmed using the Anna Awilda E801 elect anna milum inesc ent metho d. Value s obtai glory from diffe rent assay metho ds canno t be used inter mora eably . . Not Available [facility] [address] [place], [address], 03/29/2023 09:59:08 03/17/20 19 03/17/2019 CT, chest , w/ [facility] [address] [place] [address], [place] [address] Karly tay Name: ALYSSIA CAI SON Karly tay : 1949 Patiephraim t Orderi ng Provid er: MARIAN HICKS EXAM DATE: 2018 EXAM: CT CHEST WITH CONTRA ST CLINIC AL INFORM ATION: Histor y of colon, skin and cervic al cancer . Solita ry lung nodule . Medias tinal and hilar lymph nodes. Follow -up. TECHNI QUE: Multip le axial CT images of the chest were obtain ed after inject ion of Isovue 370, 100 ml (2x50 ml bottle s) of Isovue -370 ([facility] [id number] ) IV. COMPAR KEANU: None FINDIN GS: AIRWAY S AND LUNGS: Trache a, princi pal bronch i and major bronch ial branch es are patent and normal . Previo usly seen pneumo evan and nodula rity in the superi or segmen t of the left lower lobe has resolv ed. Previo usly seen tiny right upper lobe lung nodule s are stable , best seen in image 147, and 170. MEDIAS TINUM: Previo usly seen medias tinal and hilar lymph nodes are noted again. The larges t in the right hilum measur es 14 x 6 mm and is smalle r as compar ed to the previo us measur ement of 15 x 14 mm. Other lymph nodes are also smalle r on today' s exam. Aorta, SVC, pulmon melonie arteri es, pulmon melonie veins and their major branch es and tribut roland are normal . No gross cardia c abnorm ality. PLEURA AND CHEST WALL: No pleura l effusi on or mass. No chest wall abnorm ality. UPPER ABDOMI NAL ORGANS : Liver, gallbl adder, spleen , pancre as, adrena ls and both kidney s are normal . COMBIN ED IMPRES PIOTR: 1. Comple te resolu tion of the previo usly seen left lower lobe pneumo evan. 2. Stable tiny right upper lobe lung nodule s. 3. Decrea se in the size of medias tinal or hilar lymph nodes. Interp reted By: Garcia Tijerina MD Electr onical ly Signed By: Garcia Tijerina MD on 019 11:48 AM [email or web address] [facility] [address], [id number], 03/15/2020 10:19:01 Result Notes Documentation Provider Name and Address Organization Details Recorded Time Ct, Chest, W/ Contrast : [address] [address] Patient Name: ALYSSIA HOLLY Patient : 1950 Patient Ordering Provider: MARIAN HICKS EXAM DATE: 03/17/2019 EXAM: CT CHEST WITH CONTRAST CLINICAL INFORMATION: History of colon, skin and cervical cancer. Solitary lung nodule. Mediastinal and hilar lymph nodes. Follow-up. TECHNIQUE: Multiple axial CT images of the chest were obtained after injection of Isovue 370, 100 ml (2x50 ml bottles) of Isovue-370 ([facility] [id number]) IV. COMPARISON: None FINDINGS: AIRWAYS AND LUNGS: Trachea, principal bronchi and major bronchial branches are patent and normal. Previously seen pneumonia and nodularity in the superior segment of the left lower lobe has resolved. Previously seen tiny right upper lobe lung nodules are stable, best seen in image 147, and 170. MEDIASTINUM: Previously seen mediastinal and hilar lymph nodes are noted again. The largest in the right hilum measures 14 x 6 mm and is smaller as compared to the previous measurement of 15 x 14 mm. Other lymph nodes are also smaller on today's exam. Aorta, SVC, pulmonary arteries, pulmonary veins and their major branches and tributaries are normal. No gross cardiac abnormality. PLEURA AND CHEST WALL: No pleural effusion or mass. No chest wall abnormality. UPPER ABDOMINAL ORGANS: Liver, gallbladder, spleen, pancreas, adrenals and both kidneys are normal. COMBINED IMPRESSION: 1. Complete resolution of the previously seen left lower lobe pneumonia. 2. Stable tiny right upper lobe lung nodules. 3. Decrease in the size of mediastinal or hilar lymph nodes. Interpreted By: Evan Tijerina MD AN HICKS MD [address] [place] [address], [phone] 03/15/2020 10:19:00 Problems Name Problem SNOMED Code Status Onset Date Resolution Date Notes Provider Name and Address Organization Details Recorded Time History of malignant neoplasm of colon 695661243 Active 021 Ritu Aguilar [facility] 10:48:43 Problem Notes Documentation Provider Name and Address Organization Details Recorded Time Urologist Consult Note : [facility] [address] [facility] [id number], ALYSSIA E (id #[id number], : 1950) [address] [place] [address] Encounter Summary - Progress Note Date Printed: 08/31/2021 Documents sent via fax will include the followingmessage: This fax may contain sensitive and confidential personal health information that is being sent for the sole use of the intended recipient. Unintended recipients are directed to securely destroy any materials received. You are hereby notified that the unauthorized disclosure or other unlawful use of this fax or any personal health information is prohibited. To the extent patient information contained in this fax is subject to 42 CFR Part 2, this regulation prohibits unauthorized disclosure of these records. If you received this fax in error, please visit [email or web address] [email or web address] to notify the sender and confirm that the information will be destroyed. If you do not have internet access, please call to notify the sender and confirm that the information will be destroyed. Thank you for your attention and cooperation. [ID:[id number]] Patient Alyssia Holly (71yo, F) #[id number] 1950 Patient Demographics: [place] [address] [place] [address] Encounter Notes: Encounter Reason/Date PTNM & FUP 08/30/2021 - 01:30PM - [facility] History of Present IllnessPatient is here today for her monthly PTNM treatment as well as yearly follow-up. She currently is taking no other urologic medications. She rarely has urgency to the point of incontinence. She does state that her symptoms are not as well controlled with a monthly maintenance as it was during her initial weekly treatment regimens. She is satisfied. She continues to work full-time. She has had no urinary infections. She will continue therapy. We did mention consideration of InterStim. Review of Systems Patient reports no fever, no night sweats, no significant weight gain, no significant weight loss, and no exercise intolerance. She reports no dry eyes, no vision change, and no irritation. She reports no difficulty hearing and no ear pain. She reports no frequent nosebleeds, no nose problems, and no sinus problems. She reports no sore throat, no bleeding gums, no snoring, no dry mouth, no mouth ulcers, no oral abnormalities, and no teeth problems. She reports no chest pain, no arm pain on exertion, no shortness of breath when walking, no shortness of breath when lying down, no palpitations, no known heart murmur, and no edema. She reports no cough, no wheezing, no shortness of breath, no coughing up blood, and no sleep apnea. She reports normal appetite, no abdominal pain, no nausea, no vomiting, not vomiting blood, no constipation, no diarrhea, no bright red blood per rectum, no dyspepsia, and no GERD. She reports no incontinence, no difficulty urinating, no hematuria, no increased frequency, no urinary urgency, no nocturia, normal urinary flowing, and no dysuria. She reports no muscle aches, no muscle weakness, no arthralgias/joint pain, no back pain, no swelling in the extremities, and no neck pain. She reports no abnormal mole, no jaundice, no rashes, and no laceration. She reports no loss of consciousness, no weakness, no numbness, no seizures, no dizziness, no migraines, no headaches, and no tremor. She reports no depression, no sleep disturbances, feeling safe in a relationship, no alcohol abuse, no anxiety, no hallucinations, and no suicidal thoughts. She reports no fatigue. She reports no swollen glands, no bruising, and no excessive bleeding. She reports no runny nose, no sinus pressure, no itching, no hives, and no frequent sneezing. [id number]/31/2020 01:48 pm Ht: 5 ft 6 in Wt: 170 lbs BMI: 27.4 Results/InterpretationsNon e recorded Physical ExamNone recorded Procedure DocumentationPTNM; single treatment:Procedure Record for PTNM Maintance / NURO: Risks and benefits of the procedure were discussed with patient. Patient stated they understood and all questions were answered. Caffeine= 3-4. Alcohol= 0. Daytime Voids= 3-5. Night-time Voids= 0. Incontinence= 0-1. Urgency= 2. The patient was asked to empty the bladder by voiding. The patient was taken into the treatment room and placed seated with the right leg extended. A sterile lead set was opened and the patients right lower leg was exposed and sterilized using an alcohol swab. The electrode pad was placed on the instep of the right foot. The needle electrode was places three fingerbreadths cephalad to the medial malleolus and approximately one fingerbreadth posterior to the tibia at a 70 degree angle from the skin surface. The electrode clip was placed on the needle electrode. The NURO device was turned on and the lead set attached to it. A test run was done. After the test run was completed, the current was turned up in increments of 0.5 MA for each displayed setting of 1, until the flexion of the great toe was observed. The current was then reduced by one and the treatment process was continued at 4 for 30 minutes. All was absorbed. The electrode needle and pad were then removed. The skin appeared normal. Assessment and Plan1. Urge incontinence of urine-Continue monthly therapy and see me one year earlier if [id number]: Urge incontinence Return to Office LOUISE DESHPANDE MD for RECHECK at [facility] on 09/27/2021 at 01:30 PM to see SAMIRA VELASQUEZ MD for RECHECK at [facility] on or around 04/06/2022 Patient Medical History: Allergies List Reviewed Allergies NKDA Medications Reviewed Medications NameDate Source aspirin 81 mg tabletDaily Internal Note:Duration: 30 days;Frequency: daily;Medication Description: aspirin; Dosage:1; Route:oral; refills:0; Quantity:30 [id number]/06/[address] [facility].263 cefUROXime axetiL 500 mg tabletTake 1 tablet(s) every 12 hours by oral route for 14 days.03/24/21 prescribed LOUISE DESHPANDE MD celecoxib 200 mg capsuletake 1 capsule by mouth once daily02/17/19 renewed SAMIRA VELASQUEZ MD Cozaar 25 mg tabletTake 1 tablet(s) every day by oral route.01/20/18 entered Мария [place] Levaquin 500 mg tabletTake 1 tablet(s) every 24 hours by oral route.12/16/18 prescribed MARIAN HICKS MD Rvyeckg45/30/18 entered Мария [place] Family HistoryReviewed Family History Father - Arthritis - Diabetes mellitus Sister - Arthritis - Diabetes mellitus - Myocardial infarction Brother - Arthritis - Myocardial infarction Past Medical HistoryReviewed Past Medical History Arthritis:Y Cancer:Y-Cervical & Colon Hypertension:Y Vaccine HistoryNone recorded Electronically Signed by: LOUISE DESHPANDE MD MARIAN HICKS MD [address] [place] [place], [address], [facility] 09/04/2021 09:49:48 Procedures Surgical History Date Name Laterality Status Provider Name and Address Organization Details Recorded Time 08/23/20 15 Total hip arthroplasty completed Nessa Delvalle [facility] 03/15/2020 08:31:56 Hip Replacement completed Nessa Delvalle [facility] 03/15/2020 08:31:32 Tonsillectomy completed Nessa [facility] 03/15/2020 08:31:38 Total Colectomy completed Nessa [facility] 03/15/2020 08:31:43 Imaging Results None recorded. Procedure Notes None recorded. Medical Equipment None Reported. Allergies Allergen ID Allergen Name Allergen Category Reaction Reaction Severity Criticality Documentation Date Start Date Code Code System Note Provider Name and Address Organization Details Recorded Time 851896 latex environme nt,medica tion Not available Not available Not available 03/17/2019 73162 91 RxNorm Eyad hu Adriana [facility] 9 09:32:55 226944 nickel environme nt Not available Not available Not available 03/17/2019 14128 29 RxNorm Lukasjazminestevan Wright [facility] 9 09:33:12 Medications Name Sig Start Date Stop Date Status Note LastModified by Organization Details LastModified Time losartan 50 mg tablet TAKE 1/2 (ONE-HALF ) TABLET BY MOUTH ONCE DAILY active Not Available Not Available No t Available celecoxib 200 mg capsule TAKE 1 CAPSULE BY MOUTH ONCE DAILY active Not Available Not Available No t Available promethazin e-DM 6.25 mg-15 mg/5 mL oral syrup TAKE 5 ML BY MOUTH EVERY 6 HOURS NEEDED active Not Available Not Available No t Available prednisone 10 mg tablet TAKE 1 TABLET BY MOUTH TWICE DAILY 03/29 completed Not Available Not Available Not Available benzonatate 200 mg capsule TAKE 1 CAPSULE BY MOUTH THREE TIMES DAILY NEEDED 03/29 completed Not Available Not Available Not Available hydrocortis one valerate 0.2 % topical cream 03/17 completed Not Available Not Available Not Available potassium chloride ER 10 mEq tablet,exte nded release TAKE 1 TABLET BY MOUTH ONCE DAILY active Not Available Not Available No t Available ciprofloxac in 250 mg tablet TAKE 1 TABLET BY MOUTH TWICE DAILY FOR 7 DAYS 03/29 completed Not Available Not Available Not Available ciprofloxac in 500 mg tablet TAKE 1 TABLET BY MOUTH EVERY 12 HOURS FOR 10 DAYS 03/29 completed Not Available Not Available Not Available ciclopirox 8 % topical solution APPLY TOPICALLY AT BEDTIME APPLY OVER PREVIOUS COAT; REMOVE WITH ALCOHOL EVERY 7 DAYS 03/29 completed Not Available Not Available Not Available benzonatate 100 mg capsule TAKE 1 CAPSULE BY MOUTH EVERY 8 HOURS NEEDED FOR COUGH 03/29 completed Not Available Not Available Not Available doxycycline monohydrate 100 mg capsule TAKE 1 CAPSULE BY MOUTH TWICE DAILY 03/29 completed Not Available Not Available Not Available cephalexin 500 mg capsule 03/15 completed Not Available Not Available Not Available oseltamivir 75 mg capsule 03/15 completed Not Available Not Available Not Available fluorometho lone 0.1 % eye drops,suspe nsion INSTILL 1 DROP INTO EACH EYE 4 TIMES DAILY FOR 7 DAYS 03/29 completed Not Available Not Available Not Available triamterene 37.5 mg-hydrochl orothiazide 25 mg tablet TAKE 1 TABLET BY MOUTH ONCE DAILY active Not Available Not Available No t Available hydrocortis one 2.5 % topical cream 03/15 completed Not Available Not Available Not Available Cozaar 25 mg tablet Take 1 tablet every day by oral route. 03/15 completed Not Available Not Available Not Available Levaquin 500 mg tablet Take 1 tablet every 24 hours by oral route. 03/17 completed Not Available Not Available Not Available cefuroxime axetil 500 mg tablet TAKE 1 TABLET BY MOUTH EVERY 12 HOURS FOR 14 DAYS 03/29 completed Not Available Not Available Not Available methylpredn isolone 4 mg tablets in a dose pack TAKE DIRECTED 03/20 completed Not Available Not Available Not Available albuterol sulfate HFA 90 mcg/actuati on aerosol inhaler INHALE 2 PUFFS BY MOUTH 4 TIMES DAILY NEEDED active Not Available Not Available No t Available cefdinir 300 mg capsule TAKE 1 CAPSULE BY MOUTH EVERY 12 HOURS FOR 5 DAYS 03/29 completed Not Available Not Available Not Available fluticasone propionate 50 mcg/actuati on nasal spray,suspe nsion active Not Available Not Available Not Available amoxicillin 875 mg-potassiu m clavulanate 125 mg tablet TAKE 1 TABLET BY MOUTH TWICE DAILY 03/29 completed Not Available Not Available Not Available azithromyci n 500 mg tablet TAKE 1 TABLET BY MOUTH ONCE DAILY FOR 3 DAYS active Not Available Not Available No t Available Asprin Ec Low Dose 81 mg tablet,bushra yed release Take 1 tablet every day by oral route. 03/29 completed Not Available Not Available Not Available rosuvastati n 10 mg tablet TAKE 1 TABLET BY MOUTH ON SATURDAY, SATURDAY AND SATURDAY active Not Available Not Available No t Available potassium chloride ER 10 mEq tablet,exte nded release(par t/cryst) 03/15 completed Not Available Not Available Not Available Maxidex 03/15 completed Not Available Not Available Not Available Align (B.infantis ) 4 mg capsule TAKE 1 CAPSULE BY MOUTH ONCE DAILY 03/29 completed Not Available Not Available Not Available Suprep Bowel Prep Kit 17.5 gram-3.13 gram-1.6 gram oral solution DILUTE; DRINK FULL AMOUNT EARLY EVENING BEFORE AND NEXT MORNING AT LEAST 2 HOURS BEFORE PROCEDURE . FOLLOW WITH 960 ML OF WATER 03/29 completed Not Available Not Available Not Available Shingrix (PF) 50 mcg/0.5 mL intramuscul ar suspension, kit 03/15 completed Not Available Not Available Not Available Vitals Date Recorded Body height Body mass index (BMI) Body weight Heart rate Oxygen saturation Oxygen saturation in Arterial blood by Pulse oximetry Systolic blood pressure Diastolic blood pressure Provider Name and Address Organization Details Last Updated DateTime 0 167.64 cm 28.1 kg/m2 83802.1 7 g 76 /min 96 % 96 % 111 mm[Hg] 70 mm[Hg] Nessa Delvalle [facility] 0 08:44:20 Date Recorded Body weight Body mass index (BMI) Body height Body temperature Oxygen saturation Oxygen saturation in Arterial blood by Pulse oximetry Heart rate Systolic blood pressure Diastolic blood pressure Provider Name and Address Organization Details Last Updated DateTime 9 60469.1 5 g 26.5 kg/m2 167.64 cm 97.2 [degF] 98 % 98 % 62 /min 101 mm[Hg] 64 mm[Hg] Eyad Wright [facility] 9 09:43:05 Date Recorded Body height Body mass index (BMI) Body weight Body temperature Heart rate Oxygen saturation Oxygen saturation in Arterial blood by Pulse oximetry Systolic blood pressure Diastolic blood pressure Provider Name and Address Organization Details Last Updated DateTime 1 167.64 cm 28.5 kg/m2 03818.0 6 g 98.3 [degF] 72 /min 97 % 97 % 95 mm[Hg] 64 mm[Hg] Merle Bacamagalystaisha [facility] 1 09:47:56 Date Recorded Body height Body mass index (BMI) Body weight Body temperature Heart rate Oxygen saturation Oxygen saturation in Arterial blood by Pulse oximetry Systolic blood pressure Diastolic blood pressure Provider Name and Address Organization Details Last Updated DateTime 2 167.64 cm 29.7 kg/m2 13711 g 97.3 [degF] 77 /min 97 % 97 % 123 mm[Hg] 76 mm[Hg] Genna Sparrow [facility] 2 10:45:06 Date Recorded Body weight Body mass index (BMI) Body height Body temperature Heart rate Oxygen saturation Oxygen saturation in Arterial blood by Pulse oximetry Systolic blood pressure Diastolic blood pressure Provider Name and Address Organization Details Last Updated DateTime 3 33210.6 7 g 29.3 kg/m2 167.64 cm 97.7 [degF] 67 /min 97 % 97 % 114 mm[Hg] 73 mm[Hg] Amparo davis [facility] 3 09:48:48 Social History Question Answer Notes LastModified by Organizat ion Details LastModified Time Tobacco Smoking Status [facility] 09:36:34 How Much Tobacco Do You Chew? None Information not available 03/17/2019 If Patient Spent Time In [facility] - Does The Patient Live In [facility]? No [email or web address] Information not available 03/15/2020 In The 14 Days Before Symptom Onset, Did The Patient Spend Time In [facility]? No [email or web address] Information not available 03/15/2020 Have You Been To An Area Known To Be High Risk For COVID-19? No [email or web address] Information not available 03/15/2020 Live Alone Or With Others? Alone [email or web address] Information not available 03/15/2020 Education Level College [email or web address] Informati on not available 03/15/2020 Learning Preferences Audio/verbal . Information not available 03/29/2023 Exposure To Smoke No [email or web address] Information not available 03/15/2020 Marital Status [email or web address] Informatio n not available 03/15/2020 What Was The Date Of Your Most Recent Tobacco Screening? 03/29/2023 Information not available 03/29/2023 How Many Children Do You Have? 0 Information not available 03/15/2020 How Much Tobacco Do You Smoke? 1 PPD Information not available 03/17/2019 How Many Years Have You Smoked Tobacco? 20 Information not available 03/17/2019 Sex: Female Functional Status Question Answer Note LastModified by Organizat ion Details LastModified Time Do you or have you ever used smokeless tobacco? 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 Never used electronic cigarettes [email or web address] Information not available 03/20/2021 Mental Status None recorded. Family History Relationship Description Onset Age of this Age Resolved Age Notes LastModified by Organization Details LastModified Time Father Arthritis [email or web address] Not availab le 03/15/2020 08:30:55 Father Diabetes mellitus [email or web address] Not available 2019 08:31:04 Sister Arthritis [email or web address] Not availab le 03/15/2020 08:30:55 Sister Diabetes mellitus [email or web address] Not available 2019 08:31:04 Sister Myocardial infarction [email or web address] Not available 03/15 08:31:22 Brother Arthritis [email or web address] Not availa ble 03/15/2020 08:30:55 Brother Myocardial infarction [email or web address] Not available 03/15 08:31:22 Medical History Condition Response Cancer Y Arthritis Y Back Pain Y Hypertension Y Kidney Stones Y Gynecological HistoryNo gynecological history recorded. Obstetrics History GPAL:G 0 P 0 0 0 0 Immunizations Vaccine Type Date Status Note Provider Nam e and Address Organization Details Recorded Time Influenza, split virus, quadrivalent, preservative 8 completed Chip Wright [facility] 03/17/2019 09:38:07 zoster, unspecified formulation 0 completed Nessa Delvalle [facility] 03/15/2020 08:37:22 COVID-19, mRNA, LNP-S, PF, 100 mcg/0.5mL dose or 50 mcg/0.25mL dose 1 completed Merle Dasilva [facility] 03/20/2021 09:45:59 COVID-19, mRNA, LNP-S, PF, 100 mcg/0.5mL dose or 50 mcg/0.25mL dose 1 completed Merle Dasilva [facility] 03/20/2021 09:46:07 influenza nasal, unspecified formulation 2 completed Amparo Chacon [facility] 03/29/2023 09:46:01 Past Encounters Encounter ID Performer Location Encounter Start Date Encounter Closed Date Diagnosis/Indication Diagnosis SNOMED-CT Code Diagnosis ICD10 Code Diagnosis Note [id number] SAMIRA Bang MD [facility] [address] [place] [address] 09/21/2016 10:24:20 09/21/2016 13:46:09 [id number] SAMIRA Bang MD [facility] [address] [place] [address] 11/20/2016 15:26:22 11/20/2016 16:43:05 [id number] SAMIRA Bang MD [facility] [address] [place] [address] 01/29/2017 09:32:51 01/29/2017 10:24:17 [id number] [facility] [address] [place] [address] 02/26/2017 15:45:49 02/26/2017 17:11:34 [id number] [place] [address] [place], [place] [address] 03/27/2017 13:37:33 03/27/2017 15:28:05 [id number] [place] [address] [place], [place] [address] 04/04/2017 16:10:59 04/04/2017 17:43:54 [id number] [place] [address] [place] [address] [address] 1 04/10/2017 17:14:42 04/10/2017 17:16:49 [id number] [place] [address] [place] [address] 1 05/01/2017 15:30:34 05/01/2017 17:15:17 [id number] [place] [address] [place] [address] 1 05/15/2017 14:41:24 05/15/2017 16:31:32 [id number] SAMIRA Bang MD ORTHOPEDI [address] [address] 07/04/2017 15:10:26 07/05/2017 14:03:16 [id number] BOB FERNANDEZ AUD ENT SB [address] [place], [place] [address] 1 07/30/2017 15:48:24 07/30/2017 17:37:36 [id number] BOB FERNANDEZ AUD ENT SB [address] [place] [address] 1 2017 15:07:58 2017 17:18:55 [id number] BOB FERNANDEZ AUD ENT SB [address] [place], [place] [address] 1 08/21/2017 13:31:49 08/21/2017 15:40:27 [id number] BOB FERNANDEZ AUD ENT SB [address] [place] [address]533 1 10/16/2017 14:30:17 10/16/2017 14:58:16 [id number] BOB FERNANDEZ AUD ENT SB [address] [place] [address]437 1 10/30/2017 13:44:11 10/30/2017 15:22:52 [id number] BOB FERNANDEZ AUD ENT SB [address] [place], [place] [address] 1 11/20/2017 16:03:40 11/20/2017 16:35:48 [id number] LOUISE DESHPANDE MD [facility]OLOGIC ASSOC[facility]ATE S [address] [place] [address] 0 12/04/2017 13:22:50 12/04/2017 15:12:05 [id number] MD [facility] [address],[place] [place] [address] 0 12/11/2017 13:51:44 12/13/2017 10:20:52 [id number] SAMIRA Bang MD ORTHOPEDI CS [facility] CLOSED [address] [place] [address] 6 12/13/2017 07:33:00 12/13/2017 08:26:57 [id number] MD [facility] [address],[place] [place] [address] 0 12/18/2017 13:39:55 12/19/2017 09:21:37 [id number] MD [facility] [address],[place] [place] [address] 0 12/25/2017 13:26:52 12/25/2017 16:42:07 [id number] BOB FERNANDEZ AUD ENT SB [address] [place] [address] 1 12/25/2017 14:43:13 12/25/2017 16:53:32 [id number] MD [facility] [address],[place] [place] [address] 0 01/01/2018 13:34:24 01/01/2018 14:32:05 [id number] YOSELIN SCHMID ENT SB [address] [place] [address] 1 01/01/2018 14:46:50 01/01/2018 15:47:01 [id number] MD [facility] [address],[place] [place] [address] 0 01/08/2018 13:37:51 01/08/2018 14:50:50 [id number] MD [facility] [address] [place] [address] 01/15/2018 13:24:09 01/15/2018 15:42:47 [id number] MARIAN HICKS MD HEM/ONC [facility] CLOSED [address] [place] [address] 01/20/2018 13:51:51 01/20/2018 15:07:06 [id number] MD [facility] [address] [place] [address] 01/22/2018 12:52:01 01/22/2018 14:30:27 [id number] MD [facility] [address] [place] [address] 0 01/29/2018 13:28:34 01/29/2018 14:49:41 [id number] MD [facility] [address] [place] [address] 0 02/05/2018 13:34:01 02/05/2018 15:24:33 [id number] MD [facility] [address] [place] [address] 0 02/12/2018 13:24:21 02/12/2018 17:00:16 [id number] MD [facility] [address] [place] [address] 0 02/19/2018 13:29:19 02/19/2018 15:16:09 [id number] BOB REBECCA, AUD ENT SB [address] [place] [address] 03/04/2018 14:34:09 03/04/2018 15:46:16 [id number] MD [facility] [address] [place] [address] 0 03/19/2018 14:38:02 03/19/2018 16:27:34 [id number] MD [facility] [address] [place] [address] 0 04/16/2018 13:15:32 04/16/2018 14:06:56 [id number] SAMIRA Bang MD ORTHOPEDI [address] [address] 04/24/2018 15:19:29 04/24/2018 16:33:05 [id number] MD [facility] [address] [place] [address] 0 05/14/2018 13:20:11 05/14/2018 14:12:54 [id number] FANNIE HURD MD [facility] UROLOGIC [facility]IATE S [address] [place] [address] 06/06/2018 13:08:11 06/06/2018 15:01:16 [id number] MD [facility] [address] [place] [address] 0 06/11/2018 13:08:23 06/11/2018 14:07:03 [id number] MARIAN HICKS MD HEM/ONC [facility] CLOSED [address] [place] [address] 06/19/2018 10:38:44 06/19/2018 12:41:35 [id number] YOSELIN SCHMID ENT SB [address] [place] [address] 1 07/02/2018 13:31:54 07/02/2018 17:14:02 [id number] LOUISE DESHPANDE MD [facility] S [address] 0 07/09/2018 13:27:42 07/09/2018 14:27:24 [id number] YOSELIN SCHMID ENT SB [address] [place] [address] 1 07/23/2018 13:14:06 07/23/2018 16:48:49 [id number] LOUISE DESHPANDE MD [facility] [address] [place] [address] 0 08/06/2018 13:08:12 08/06/2018 13:57:02 [id number] BOB FERNANDEZ, AUD ENT SB [address] [place] [address] 1 08/06/2018 14:16:48 08/06/2018 17:13:32 [id number] BOB FERNANDEZ AUD ENT SB [address] [place] [address] 1 08/20/2018 12:58:34 08/20/2018 17:30:15 [id number] LOUISE DESHPANDE MD [facility] UROLOGIC ASSOCIATE S [address] [place] [address] 0 09/03/2018 13:31:10 09/03/2018 14:28:40 [id number] LOUISE DESHPANDE MD [facility] UROLOGIC ASSOCIATE S [address] [place] [address] 0 10/01/2018 13:03:12 10/01/2018 14:30:37 [id number] BOB ALOEDMUND, AUD ENT SB [address] [place] [address] 1 10/01/2018 14:31:18 05/27/2020 08:21:28 [id number] LOUISE DESHPANDE MD [facility] UROLOGIC ASSOCIATE S [address] [place] [address] 0 10/29/2018 13:11:06 10/29/2018 13:56:25 [id number] LOUISE DESHPANDE MD [facility] UROLOGIC ASSOCIATE S [address] [place] [address] 0 11/26/2018 13:05:08 11/26/2018 14:14:34 [id number] BOB FERNANDEZ, AUD ENT SB [address] [place] [address] 1 12/16/2018 07:24:50 12/16/2018 10:00:48 [id number] MARIAN HICKS MD HEM/ONC [facility] CLOSED [address] 6 12/16/2018 10:01:42 12/16/2018 11:25:21 [id number] LOUISE DESHPANDE MD [facility] UROLOGIC ASSOCIATE S [address] [place] [address] 12/24/2018 13:05:37 12/24/2018 13:29:53 [id number] BOB FERNANDEZ, AUD ENT SB [address] [place] [address] 1 12/24/2018 14:31:50 12/24/2018 14:33:21 [id number] MD [facility] [address] [place] [address] 0 01/21/2019 13:00:55 01/21/2019 13:47:34 [id number] SAMIRA Bang MD ORTHOPEDI CS [facility] CLOSED [address] [place] [address] 02/13/2019 07:42:36 02/13/2019 08:31:41 [id number] LOUISE DESHPANED MD [facility] [address] [place] [address] 02/18/2019 13:10:49 02/18/2019 14:14:10 [id number] MARIAN HICKS MD HEM/ONC SB CLOSED [address] [address] 1 03/17/2019 09:21:44 03/17/2019 10:53:58 History of malignant neoplasm of colon 471255490 Z85.038 GLORY x 8 years. She is due for colonoscop y in [facility] this fall. CEA is normal. Mediastina l lymphadenopathy [id number] R59.[address] report. I will let her know. Essential hypertension 14791805 I10 Continue current medication . FU PCP. [id number] MD [facility] [address] [place] [address] 03/25/2019 13:07:51 03/25/2019 14:07:21 [id number] MD [facility] [address] [place] [address] 0 04/22/2019 13:18:09 04/22/2019 13:59:16 [id number] BOB FERNANDEZ, AUD ENT SB [address] [place] [address] 1 04/29/2019 13:23:08 04/29/2019 17:15:43 [id number] BOB [place]NA[place], [place] [address] [place] [address] 1 05/08/2019 14:47:25 05/08/2019 17:25:24 [id number] BOB FERNANDEZ, AUD ENT SB [address] [place] [address] 1 05/12/2019 13:54:53 05/12/2019 17:11:04 [id number] BOB F[place]NANDEZ, [place] [address] [place] [address] 1 05/26/2019 14:26:58 05/26/2019 17:33:12 [id number] LOUISE DESHPANDE MD [facility] S [address],[place] [address] 0 05/27/2019 12:57:48 05/27/2019 13:24:14 [id number] BOB F[place]NANDEZ, [place] [address] [place] [address] 1 06/17/2019 13:26:10 06/17/2019 16:57:31 [id number] LOUISE DESHPANDE MD [facility] S [address] [place] [address] 0 06/24/2019 13:11:04 06/24/2019 13:58:27 [id number] BOB F[place]NANDEZ, [place] [address] [place] [address] 1 07/08/2019 13:34:45 07/08/2019 17:17:15 [id number] MD [facility] [address],[place] [place] [address] 0 07/29/2019 13:00:15 07/29/2019 13:58:53 [id number] BOB FERNANDEZ, AUD ENT SB [address] [place] [address] 1 07/29/2019 14:25:43 07/29/2019 17:05:46 [id number] LOUISE DESHPANDE MD [facility] S [address] [place] [address] 0 08/26/2019 13:19:28 08/26/2019 13:46:40 [id number] BOB [place]NANDEZ, [place] [address] [place] [address] 1 08/26/2019 15:19:38 08/26/2019 15:52:22 [id number] [place] [address] [place] [address] 1 09/02/2019 14:19:00 09/02/2019 16:02:40 [id number] LOUISE DESHPANDE MD [facility] UROLOGIC ASSOCIATE S [address] [place] [address] 0 09/30/2019 13:11:57 09/30/2019 14:04:35 [id number] BOB F[place]NANDEZ, [place] [address] [place] [address] 1 09/30/2019 14:20:29 09/30/2019 15:34:34 [id number] LOUISE DESHPANDE MD [facility] UROLOGIC ASSOCIATE S [address] [place] [address] 0 10/28/2019 13:13:53 10/28/2019 14:10:50 [id number] LOUISE DESHPANDE MD [facility] S [address] [place] [address] 0 12/02/2019 13:11:25 12/02/2019 14:12:07 [id number] FANNIE HURD MD [facility] UROLOGIC ASSOCIATE S [address] [place] [address] 0 01/28/2020 13:45:36 01/28/2020 14:35:52 [id number] LOUISE DESHPANDE MD [facility] UROLOGIC ASSOCIATE S [address] [place] [address] 02/24/2020 11:34:11 02/24/2020 12:42:00 [id number] SAMIRA Bang MD ORTHOPEDI CS [facility] CLOSED [address] [place] [address] 02/25/2020 13:27:22 02/25/2020 15:50:27 [id number] MARIAN HICKS MD HEM/ONC SB CLOSED [address] [address] 1 03/15/2020 08:24:14 03/15/2020 10:26:34 History of malignant neoplasm of colon 474665371 Z85.038 GLORY x 9 years. She is due for colonoscop y in [facility] in 2 years. CEA is normal. Essential hypertension 09899460 I10 Continue current medication . FU PCP. [id number] MD [facility] [address] 0 03/30/2020 13:12:02 03/30/2020 14:19:17 [id number] MD [facility] [address] [place] [address] 0 04/27/2020 14:34:43 04/27/2020 15:22:28 [id number] MD [facility] [address] [place] [address] 0 05/25/2020 14:28:01 05/25/2020 14:53:19 [id number] BOB REBECCA, AUD ENT SB [address] [place] [address] 1 06/01/2020 14:56:56 06/01/2020 17:06:01 [id number] MD [facility] [address] [place] [address] 06/10/2020 13:08:29 06/10/2020 13:54:55 [id number] MD [facility] [address] [place] [address] 0 06/22/2020 14:23:07 06/22/2020 14:55:34 [id number] LOUISE DESHPANDE MD [facility] S [address] 0 07/20/2020 13:56:00 07/20/2020 14:57:47 [id number] LOUISE DESHPANDE MD [facility] UROLOGIC ASSOCIATE S [address] [place] [address] 0 08/17/2020 11:46:44 08/17/2020 13:21:22 [id number] YOSELIN SCHMID ENT SB [address] [place] [address] 1 08/23/2020 15:12:17 08/23/2020 17:02:21 [id number] LOUISE DESHPANDE MD [facility] UROLOGIC ASSOCIATE S [address] [place] [address] 0 09/21/2020 13:42:28 09/21/2020 14:47:33 [id number] LOUISE DESHPANDE MD [facility] UROLOGIC ASSOCIATE S [address] [place] [address] 0 10/19/2020 13:44:52 10/19/2020 14:49:53 [id number] YOSELIN SCHMID ENT SB [address] [place] [address] 1 11/16/2020 10:52:49 11/16/2020 11:59:49 [id number] LOUISE DESHPANDE MD [facility] UROLOGIC ASSOCIATE S [address] [place] [address] 0 11/16/2020 13:36:14 11/16/2020 14:25:33 [id number] LOUISE DESHPANDE MD [facility] UROLOGIC [facility]OCIATE S [address] [place] [address] 0 12/14/2020 14:03:35 12/14/2020 14:58:30 [id number] MD [facility] [address] [place] [address] 01/18/2021 14:30:47 01/18/2021 15:34:52 [id number] MD [facility] [address] [place] [address] 02/15/2021 13:38:32 02/16/2021 09:13:19 [id number] ELLE LAZCANO PA-C ORTHOPEDI CS [facility] CLOSED [address] [place] [address] 03/14/2021 12:09:11 03/14/2021 13:17:58 [id number] MD [facility] [address] [place], [place] [address] 03/15/2021 13:44:24 03/15/2021 14:48:28 [id number] BOB FERNANDEZ, AUD ENT SB [address] [place] [address] 1 03/15/2021 14:39:32 03/15/2021 14:40:48 [id number] MARIAN HICKS MD HEM/ONC SB CLOSED [address] [address] 1 03/20/2021 09:38:03 03/20/2021 10:52:49 History of malignant neoplasm of colon [id number] Z85.038 GLORY x 10 years. She is due for colonoscop y in [facility] in 1 year. CEA is normal. Essential hypertension 13308856 I10 Continue current medication . FU PCP. [id number] SAMIRA Bang MD ORTHOPEDI CS [address] [place] [place] [address] 04/06/2021 08:16:01 04/06/2021 09:47:49 [id number] MD [facility] [address] [place] [address] 04/12/2021 13:43:54 04/12/2021 15:13:50 [id number] LOUISE DESHPANDE MD [facility] UROLOGIC ASSOCIATE S [address],[place] [address] 0 05/10/2021 13:34:40 05/10/2021 14:26:46 [id number] LOUISE DESHPANDE MD [facility] UROLOGIC ASSOCIATE S [address],[place] [place] [address] 0 06/07/2021 13:32:44 06/07/2021 14:19:56 [id number] YOSELIN SCHMID ENT SB [address] [place] [address] 1 06/08/2021 13:49:54 06/08/2021 16:42:15 [id number] LOUISE DESHPANDE MD [facility] UROLOGIC ASSOC[facility]ATE S [address],[place] [place] [address] 0 07/05/2021 13:23:36 07/05/2021 16:36:44 [id number] LOUISE DESHPANDE MD [facility] UROLOGIC ASSOCIATE S [address] [place] [address] 0 08/02/2021 13:10:35 08/02/2021 16:34:23 [id number] LOUISE DESHPANDE MD [facility] UROLOGIC ASSOC[facility] S [address],[place] [place] [address] 0 08/30/2021 13:47:39 08/30/2021 14:32:27 [id number] LOUISE DESHPANDE MD [facility] S [address],[place] [place] [address] 0 09/27/2021 13:15:34 09/27/2021 14:17:35 [id number] YOSELIN SCHMID ENT SB [address] [place] [address] 1 10/18/2021 13:56:49 10/18/2021 15:20:56 [id number] LOUISE DESHPANDE MD [facility] UROLOGIC [facility] S [address] [place] [address] 11/01/2021 13:40:19 11/01/2021 14:42:41 [id number] PREETI GOULD PA-C ORTHOPEDI CS [facility] CLOSED [address] [place] [address] 11/03/2021 08:57:04 11/03/2021 10:02:09 [id number] MARIANO LUCERO JR, OTR/L, CHT PHYSICAL THERAPY / HAND THERAPY [facility] CLOSED [address] [facility] [place] [place] [address] 11/03/2021 10:06:54 11/03/2021 13:43:45 [id number] PREETI GOULD PA-C ORTHOPEDI CS [address] [address] 11/17/2021 07:54:31 11/17/2021 08:32:03 [id number] BRENNA IVAN MD [facility] [address] [place] [address] 12/08/2021 09:08:20 12/08/2021 09:51:00 [id number] PREETI GOULD PA-C ORTHOPEDI CS [address] [address] 12/15/2021 08:11:38 12/15/2021 08:42:01 [id number] BRENNA IVAN MD [facility]OLOGIC [facility] S [address] [place] [address] 01/05/2022 09:22:24 01/05/2022 10:05:21 [id number] FANINE HURD MD [facility] S [address] [place] [address] 02/02/2022 09:11:22 02/02/2022 10:33:50 [id number] MARIAN HICKS MD HEM/ONC SB CLOSED [address] [address] 03/23/2022 09:16:07 03/23/2022 11:00:42 History of malignant neoplasm of colon [id number] Z85.038 GLORY x 10 years. She is due for colonoscop y. CEA is normal. Essential hypertension 03030739 I10 Continue current medication . FU PCP. Leukocytosis [id number] D 72.829 Pt with recent sinus infection. [id number] FANNIE HURD MD [facility] S [address] [place] [address] 03/28/2022 11:59:11 03/28/2022 13:05:59 [id number] PA LASSITER JR, MD [facility] UROLOGIC ASSOCIATE S [address] [place] [address] 04/30/2022 08:59:46 04/30/2022 09:43:22 [id number] BRENNA IVAN MD [facility]OLOG[facility] S [address] [place] [address] 06/12/2022 08:47:25 06/12/2022 12:05:24 [id number] LOUISE DESHPANDE MD [facility] UROLOGIC ASSOCIATE S [address] [place] [address] 07/18/2022 13:13:56 07/23/2022 14:20:24 [id number] FANNIE HURD MD [facility] UROLOGIC [facility] S [address] [place] [address] 08/28/2022 15:33:20 08/28/2022 20:56:38 [id number] BOB FERNANDEZ, AUD ENT SB [address] [place] [address] 09/10/2022 08:50:21 09/10/2022 11:17:58 [id number] LOUISE DESHPANDE MD [facility] S [address] [place] [id number] 10/10/2022 13:11:43 10/10/2022 14:42:26 [id number] FANNIE HURD MD [facility] S [address] [place] [address] 10/24/2022 13:08:36 10/24/2022 13:41:59 [id number] FANNIE HURD MD [facility] S [address] [place] [address] 0 11/07/2022 13:45:16 11/07/2022 15:55:21 [id number] FANNIE HURD MD [facility] S [address] [place] [address] 0 11/13/2022 10:00:32 11/13/2022 10:41:26 [id number] BRENNA IVAN MD [facility] S [address],[place] [address] 0 11/28/2022 10:43:39 11/28/2022 11:29:42 [id number] LOUISE DESHPANDE MD [facility] S [address],[place] [place] [address] 0 01/02/2023 13:50:01 01/02/2023 16:35:22 [id number] ELLE LAZCANO PA-C [facility] CLOSED [address] [place] [address] 01/28/2023 14:09:24 01/28/2023 15:05:34 [id number] SAMIRA Bang MD [facility] CLOSED [address] [place] [address] 03/19/2023 13:42:47 03/21/2023 12:14:15 [id number] MARIAN HICKS MD HEM/ONC SB CLOSED [address] [place] [id number] 1 03/29/2023 09:13:58 03/29/2023 10:18:49 History of malignant neoplasm of colon [id number] Z85.038 GLORY x 11 years. CEA is pending. We will get results of colonoscop y. Essential hypertension [id number] I10 Continue current medication . FU PCP. Leukocytosis [id number] D 72.829 Pt with recent sinus infection and is on steroids. [id number] LOUISE DESHPANDE MD [facility] UROLOGIC [facility]OCIATE S [address] [place] [address] 04/17/2023 13:04:51 04/17/2023 14:19:37 [id number] FANNIE HURD MD [facility] UROLOGIC [facility] S [address] [place], [place] [address] 04/24/2023 09:18:31 04/24/2023 10:05:40 [id number] BRENNA IVAN MD [facility] UROLOG[facility] S [address] [place], [place] [address] 05/01/2023 09:00:49 05/01/2023 10:11:59 [id number] BOB FERNANDEZ, AUD ENT [address] [place] [address] 05/08/2023 10:34:38 05/08/2023 11:47:04 [id number] FANNIE HURD MD [facility] UROLOG[facility] S [address] [place] [address] 05/08/2023 09:10:41 05/08/2023 10:06:58 [id number] BRENNA IVAN MD [facility] UROLOGIC [facility]OC[facility] S [address] [place] [address] 05/15/2023 09:20:19 05/15/2023 10:56:55 [id number] FANNIE HURD MD [facility] UROLOG[facility] S [address] [place] [address] 05/22/2023 09:10:31 05/22/2023 10:01:51 [id number] SAMIRA Bang MD [facility] CLOSED [address] [place] [address] 06/18/2023 08:31:43 06/18/2023 09:46:07 [id number] BRENNA IVAN MD [facility] UR[facility] S [address] [place] [id number] 06/05/2023 09:26:25 06/05/2023 10:47:16 [id number] FANNIE HURD MD [facility] UROLOGIC [facility] S [address] 0 06/12/2023 09:10:09 06/12/2023 10:17:05 [id number] BRENNA IVAN MD [facility] UR[facility] S [address],[place] [address] 0 06/19/2023 09:38:28 06/19/2023 10:31:51 [id number] FANNIE HURD MD [facility]OLOG[facility] S [address] [place] [address] 0 06/26/2023 09:31:44 06/26/2023 10:31:50 [id number] BOB REBECCA, AUD ENT [address] [place] [address] 1 06/26/2023 13:08:35 06/26/2023 15:38:41 [id number] BRENNA IVAN MD [facility] UROLOG[facility] S [address],[place] [place] [address] 0 07/03/2023 09:42:02 07/08/2023 07:19:00 [id number] FANNIE HURD MD [facility] UROLOG[facility] S [address] [place] [address] 0 07/10/2023 10:27:04 07/10/2023 11:21:48 [id number] BRENNA IVAN MD [facility] UR[facility] S [address] 0 07/17/2023 09:43:32 07/19/2023 09:24:26 [id number] JIGAR WOODALL PA-C [facility] CLOSED [address] [place] [address] 6 10/15/2023 09:31:26 10/15/2023 10:53:20 [id number] AARTI FARRAR PA-C [facility] CLOSED [address] [place] [address] 0 11/19/2023 08:28:21 11/20/2023 05:31:38 [id number] BINTA VALLE MD PAIN MEDICINE CLOSED [address] [place] [address] 1 11/27/2023 09:19:42 11/27/2023 16:20:04 [id number] BINTA VALLE MD [facility] PROFESSIO NAL CHARGES [address] [place] [address] 1 12/10/2023 12:28:19 12/10/2023 13:47:06 [id number] AARTI FARRAR PA-C [facility] CLOSED [address] [place] [address] 0 12/31/2023 09:45:27 01/01/2024 04:28:47 [id number] JIGAR WOODALL PA-C [facility] CLOSED [address] [place] [address] 6 01/14/2024 09:27:17 01/14/2024 10:41:23 [id number] ALICIA COLORADO PA-C PAIN MEDICINE CLOSED [address] [place] [address] 1 01/14/2024 07:30:23 01/14/2024 16:02:52 [id number] BINTA VALLE MD [facility] PROFESSIO NAL CHARGES [address] [place] [address], [place] [address] 1 02/04/2024 15:00:59 02/04/2024 15:53:12 [id number] ALICIA COLORADO PA-C PAIN MEDICINE CLOSED [address] [place] [address] 1 03/11/2024 08:39:36 03/11/2024 16:08:10 [id number] YOSHI ARCEO MD NEUROLOGY SB CLOSED [address] [address] 1 03/18/2024 10:19:16 03/18/2024 13:24:21 [id number] DERRICK BEE, BALANCE WHEEL ARM BURNISHER NEUROSURG [facility]ANEL [facility] CLOSED [address] [place] [address] 04/02/2024 09:38:16 04/03/2024 04:26:06 [id number] LOUISE DESHPANDE MD [facility]LLO [facility] UROLOGIC [facility]ATE S [address] [place] [address] 0 04/08/2024 12:50:15 04/08/2024 14:13:03 [id number] JIGAR WOODALL PA-C ORTHOPEDI CS [facility] CLOSED [address] [place] [address] 6 05/27/2024 11:07:28 05/27/2024 12:14:39 [id number] JIGAR WOODALL PA-C ORTHOPEDI CS [facility] CLOSED [address] [place] [address] 6 07/27/2024 09:11:33 07/27/2024 09:41:07 [id number] LOUISE DESHPANDE MD APOLLORitesh GALICIA JEFF UROLOGIC ASSOCIATE S [address] [place] [address] 09/02/2024 12:05:26 09/04/2024 04:38:33 [id number] MD APOLLO [facility] S [address] [place] [address] 0 10/07/2024 12:42:33 10/07/2024 13:29:53 [id number] YOSELIN SCHMID ENT SB [address] [place] [address] 12/02/2024 13:55:48 12/02/2024 15:43:15 [id number] BOB FERNANDEZ AUD ENT SB [address] [address] 12/09/2024 14:09:27 12/09/2024 16:40:08 [id number] GILDAYOSELIN SORIA ENT SB [address] [place] [address] 12/31/2024 08:22:27 12/31/2024 12:09:11 [id number] GILDARitesh ALCALA, Y[place]SEL[place] [facility] [address] [place] [address] 02/03/2025 10:41:42 02/04/2025 15:21:21 Health Concerns Section Related Observation LastModified by Organization Detai ls LastModified Time None Recorded Concern Status LastModified by Organization Details LastModified Time None Recorded Advance Directives Directive None Recorded Payers Insurance Date Sequence Insurance Name Policy Number Policy Lindsay Covered Member ID Lindsay Member ID Guarantor Name 12/02/2024 2 [employer] (MEDICARE SUPPLEMENT) Alyssia Holly [id number] Alyssia Holly 01/31/2025 1 MEDICARE-[place] (MEDICARE) Alyssia Holly [id number] Alyssia Holly 12/10/2023 2 AARP Alyssia Holly [id number] Alyssia Holly 08/19/2019 PAYMENT PLAN Alyssia Holly 12/10/2023 2 A[employer] (MEDICARE SUPPLEMENT) Alyssia Holly [id number] Alyssia Holly 12/02/2024 2 [facility] (MEDICARE SUPPLEMENT) Alyssia Holly [id number] Alyssia Holly 01/31/2025 [employer] ASSIGNED (MEDICARE DME REGION B) Alyssia Holly [id number] Alyssia Holly Notes Date Note Type Note Provider Name and Address Organization Details Recorded Time 9 text/html [place] HPIReported bypatient.patient accompanied by:patient accompanied by ; pt came alone Dischargedischarge disposition stable Distress ScreeningDistress level 0 no stress Practical Problemsno practical problems Family Problemsno family problems Emotional Problemsno emotional problems Spiritual/Religiousspiritua l/worship problems? NO Physical Problemsno physical problems Nutrition ScreeningNutrition Screening Mrs. Holly is a pleasant 68 yo WF with h/o colorectal cancer and now with an elevated CEA. Pt is s/p right hemicolectomy in [address] Boggs for Stage I colorectal carcinoma. Pt received no adjuvant therapy. Of note, pt had Stage I cervical cancer and was treated with cyrotherapy x 2 several years prior. Pt with h/o tobacco use which she discontinued in 2002. We are seeing her today in FU for Dr. Shane Frazier secondary to an elevated CEA. She saw him in 09/08 for colonoscopy which was unremarkable and with an elevated CEA of 4.9. Repeat CEA was in the 3.6 range in 12/08. Pt was scheduled to see by Dr. Lamont Morillo and was to FU with repeat labs and CT scans. Pt returned and both times was seen by nurse practitioner. PMHx including illnesses, medications, allergies, surgeries, family/social history and complete ROS per intake note. Of note, pt had CT of chest with contrast on 12/17/[address] with small noncalcified nodules of RUL and centrilobular emphysema. She is doing well. Pt is back to normal after a bout of pneumonia and she feels remarkably well. MARIAN HICKS MD [address] [place] [address], [phone], [facility] 03/17/2019 10:48:32 0 text/html HPIReported bypatient.patient accompanied by:patient accompanied by ; pt came alone Advanced Directives / BioBank AuthorizationsAdvanced Directives? YES Dischargedischarge mode ambulatory; discharge disposition stable Distress ScreeningHas the distress screening been completed in the last 45 days? ; Distress level 0 no stress Practical Problemsno practical problems Family Problemsno family problems Emotional Problemsno emotional problems Spiritual/Religiousspiritua l/worship problems? NO Physical Problemsno physical problems Nutrition ScreeningNutrition Screening ; Nutrition counseling last 6 months? NO Mrs. Holly is a pleasant 69 yo WF with h/o colorectal cancer and now with an elevated CEA. Pt is s/p right hemicolectomy in [address] Boggs for Stage I colorectal carcinoma. Pt received no adjuvant therapy. Of note, pt had Stage I cervical cancer and was treated with cyrotherapy x 2 several years prior. Pt with h/o tobacco use which she discontinued in 2002. We are seeing her today in FU for Dr. Shane Frazier secondary to an elevated CEA. She saw him in 09/08 for colonoscopy which was unremarkable and with an elevated CEA of 4.9. Repeat CEA was in the 3.6 range in 12/08. Pt was scheduled to see by Dr. Lamont Morillo and was to FU with repeat labs and CT scans. Pt returned and both times was seen by nurse practitioner. PMHx including illnesses, medications, allergies, surgeries, family/social history and complete ROS per intake note. Of note, pt had CT of chest with contrast on 12/17/[address] with small noncalcified nodules of RUL and centrilobular emphysema. She had her most recent colonoscopy 08/11 under the care of Dr. Frazier by her report and she should have repeat in 3 years. MARIAN HICKS MD [address] [place] [address], [id number], [facility] 03/15/2020 10:23:57 1 text/html HPIReported bypatient.patient accompanied by:patient accompanied by ; pt came alone Advanced Directives / BioBank AuthorizationsAdvanced Directives? YES Dischargedischarge mode ambulatory; discharge disposition stable Distress ScreeningHas the distress screening been completed in the last 45 days? ; Distress level 0 no stress Practical Problemsno practical problems Family Problemsno family problems Emotional Problemsno emotional problems Spiritual/Religiousspiritua l/worship problems? NO Physical Problemsno physical problems Nutrition ScreeningNutrition Screening ; Nutrition counseling last 6 months? NO Mrs. Holly is a pleasant 70 yo WF with h/o colorectal cancer and now with an elevated CEA. Pt is s/p right hemicolectomy in [address] Boggs for Stage I colorectal carcinoma. Pt received no adjuvant therapy. Of note, pt had Stage I cervical cancer and was treated with cyrotherapy x 2 several years prior. Pt with h/o tobacco use which she discontinued in 2002. Pt had CT of chest with contrast on 12/17/[address] with small noncalcified nodules of RUL and centrilobular emphysema. She had her most recent colonoscopy 08/11 under the care of Dr. Frazier by her report and she should have repeat in 3 years. Pt has been COVID vaccinated. MARIAN HICKS MD [address] [place], [address], [facility] 03/20/2021 10:32:38 2 text/html HPIReported bypatient.patient accompanied by:patient accompanied by ; pt came alone Advanced Directives / BioBank AuthorizationsAdvanced Directives? YES Dischargedischarge mode ambulatory; discharge disposition stable Distress ScreeningHas the distress screening been completed in the last 45 days? ; Distress level 0 no stress Practical Problemsno practical problems Family Problemsno family problems Emotional Problemsno emotional problems Spiritual/Religiousspiritua l/worship problems? NO Physical Problemsno physical problems Nutrition ScreeningNutrition Screening ; Nutrition counseling last 6 months? NO Mrs. Holly is a pleasant 71 yo WF with h/o colorectal cancer and now with an elevated CEA. Pt is s/p right hemicolectomy in [address] Boggs for Stage I colorectal carcinoma. Pt received no adjuvant therapy. Of note, pt had Stage I cervical cancer and was treated with cyrotherapy x 2 several years prior. Pt with h/o tobacco use which she discontinued in 2002. Pt had CT of chest with contrast on 12/17/[address] with small noncalcified nodules of RUL and centrilobular emphysema. She had her most recent colonoscopy 08/11 under the care of Dr. Frazier by her report and she should have repeat in 3 years. Her CEA is 4.2 and WBC is 14. MARIAN HICKS MD [address] [place], [address], [facility] 03/23/2022 10:55:59 3 text/html HPIReported bypatient.patient accompanied by:patient accompanied by ; pt came alone Advanced Directives / BioBank AuthorizationsAdvanced Directives? YES Dischargedischarge mode ambulatory; discharge disposition stable Distress ScreeningHas the distress screening been completed in the last 45 days? YES; Distress level 4 Practical Problemsno practical problems Family Problemsno family problems Emotional Problemsno emotional problems Spiritual/Religiousspiritua l/worship problems? NO Physical Problemsno physical problems; Hip pain. Nutrition ScreeningNutrition Screening ; Nutrition counseling last 6 months? NO Mrs. Holly is a pleasant 72 yo WF with h/o colorectal cancer and now with an elevated CEA. Pt is s/p right hemicolectomy in [address] Boggs for Stage I colorectal carcinoma. Pt received no adjuvant therapy. Of note, pt had Stage I cervical cancer and was treated with cyrotherapy x 2 several years prior. Pt with h/o tobacco use which she discontinued in 2002. Pt had CT of chest with contrast on 12/17/[address] with small noncalcified nodules of RUL and centrilobular emphysema. She had her most recent colonoscopy 08/11 under the care of Dr. Frazier by her report and she should have repeat in 3 years. Her CEA is 4.2 and WBC is 14. Pt continues to read 2-3 books/week. MARIAN HICKS MD [address] [place] [address], [phone], [facility] 03/29/2023 10:03:20 OBGyn Episode No OBEpisode recorded.
--- OUTSIDE RECORDS SUMMARY | 2025-03-17 10:05 | XMS_ITS | Encounter Summary ---
Author Organization [facility] Address [address] [place] [address] Care Team Providers Care Tripoler Name Role Phone Nate Mills MD Primary Care Provider [phone] Efrain Angeles MD Primary Care Provider [phone] Encounter Details Date Type Department Care Team (Late st Contact Info) Description 03/23/2022 Orders Only [facility] [address] [place] [phone] Ebony Albrecht MD [address] [address] Social History Tobacco Use Types [...] EDT Office Visit [facility] [address] [place] [address] 03/29/2025 10:45 AM EDT Office Visit [facility] [address] [place] [address] Ebony Albrecht MD [address] [facility] [address] [place] [address] documented as of this encounter Procedures Procedure Name Priority Date/Time Associated Diagnosis Comments COMPREHENSIVE METABOLIC PANEL, PLASMA Routine 03/23/2022 9:07 AM EDT documented in this encounter Results * (ABNORMAL) Comprehensive Metabolic Panel, Plasma (03/23/2022 9:07 AM EDT) External Glucose 116(H) 74 - 100 mg/dL [facility] External BUN 15 6 - 20 mg/dL [facility] External Creatinine Blood 0.67 0.50 - 0.95 mg/dL [facility] External BUN/Creat Ratio 22(H) 10 - 20 (calc) [facility] External Sodium 141 136 - 145 mmol/L [facility] External Potassium 3.3(L) 3.4 - 5.0 mmol/L [facility] External Chloride 103 98 - 107 mmol/L [facility] External Carbon Dioxide 27 22 - 31 mmol/L [facility] External Anion Gap (AG) 11 7 - 25 (calc) [facility] External Calcium 9.5 8.6 - 10.2 mg/dL [facility] External Total Protein 7.0 6.4 - 8.3 g/dL [facility] External Albumin 4.2 3.5 - 5.2 g/dL [facility] External Globulin 2.8 1.5 - 4.5 g/dL (calc) [facility] External Albumin/Globulin Ratio 1.5 1.1 - 2.5 (calc) [facility] External Bilirubin Total 0.4 0.1 - 1.2 mg/dL [facility] External Alkaline Phosphatase 104 30 - 121 U/L [facility] External AST (SGOT) 19 0 - 32 U/L [facility] External ALT (SGPT) 17 0 - 33 U/L [facility] External Estimated GFR 92 >=60 [facility] Comment: NOTE New calculation for GFR (CKD-EPI 2020) is formulated without race adjustment factors at the recommendation of the National Kidney Foundation and [place] [employer]ph[employer]. This calculation has not been validated in women. For pediatric patients refer to https://www.kidney.org/professionals/KDOQI/gfr_calculatorPed 03/23/2022 9:07 AM EDT 03/23/2022 9:25 AM EDT us Ebony Albrecht MD LAB BLOOD ORDERABLES Final Re sult Performing Organization Address City/State/[facility] Co de Phone Number [facility] [address] [place] [address], documented in this encounter Visit Diagnoses Not on filedocumented in this encounter Care Teams Tripoler Relationship Specialty Start Date End Date Nate Mills MD [address] [facility] [address] [place] [address] PCP - General 09/23/20 04/02/24 Efrain Angeles MD [address] [facility] [address] [place] [address] PCP - General 04/03/24 documented as of this encounter
--- OUTSIDE RECORDS SUMMARY | 2025-03-17 10:05 | XMS_ITS | Referral Summary ---
Author Organization [facility] Address [address] [place] [address] Care Team Providers Care Sap Gatherer Name Role Phone Unavailable Primary Care Provider [...] family history of breast cancer COMPARISON STUDIES: [facility] [phone]; no significant change. FINDINGS: Craniocaudal and mediolateral [...] annual screening mammography. At our facility, a [place] marker is positioned over a visible skin [...] family history of breast cancer COMPARISON STUDIES: [facility] [phone]; no significant change. FINDINGS: Craniocaudal and mediolateral [...] annual screening mammography. At our facility, a [place] marker is positioned over a visible skin [...] Health Maintenance Insurance MEDICARE [place] [address] [place] [address]
--- OUTSIDE RECORDS SUMMARY | 2025-03-17 10:05 | XMS_ITS | Encounter Summary ---
Author Organization [facility] Address [address] [place] [address] Care Team Providers Care Wound Care Physician Name Role Phone Nate Mills MD Primary Care Provider [phone] Efrain Angeles MD Primary Care Provider [phone] Encounter Details Date Type Department Care Team (Late st Contact Info) Description 03/20/2021 Orders Only [facility] @ [address] [phone] Ebony Albrecht MD [address] [place] [address] Social History Tobacco Use Types [...] Description 03/29/2025 9:45 AM EDT Office Visit [facility] [address] [place] [phone] 03/29/2025 10:45 AM EDT Office Visit [facility] [address] [place] [address] Ebony Albrecht MD [address] [phone] documented as of this encounter Procedures Procedure Name Priority Date/Time Associated Diagnosis Comments COMPREHENSIVE METABOLIC PANEL, PLASMA Routine 03/20/2021 9:07 AM EDT documented in this encounter Results * (ABNORMAL) Comprehensive Metabolic Panel, Plasma (03/20/2021 9:07 AM EDT) External Glucose 91 74 - 100 mg/dL [facility] External BUN 18 6 - 20 mg/dL [facility] External Creatinine Blood 0.69 0.50 - 0.95 mg/dL [facility] External BUN/Creat Ratio 26(H) 10 - 20 (calc) [facility] External Sodium 143 136 - 145 mmol/L [facility] External Potassium 3.8 3.4 - 5.0 mmol/L [facility] External Chloride 104 98 - 107 mmol/L [facility] External Carbon Dioxide 29 22 - 31 mmol/L [facility] External Anion Gap (AG) 10 7 - 25 (calc) [facility] External Calcium 10.0 8.6 - 10.2 mg/dL [facility] External Total Protein 6.8 6.4 - 8.3 g/dL [facility] External Albumin 4.2 3.5 - 5.2 g/dL [facility] External Globulin 2.6 1.5 - 4.5 g/dL (calc) [facility] External Albumin/Globulin Ratio 1.6 1.1 - 2.5 (calc) [facility] External Bilirubin Total 0.4 0.1 - 1.2 mg/dL [facility] External Alkaline Phosphatase 98 35 - 106 U/L [facility] External AST (SGOT) 21 0 - 32 U/L [facility] External ALT (SGPT) 16 0 - 33 U/L [facility] External EGFR (If AFR/AM) 101 >=60 [facility] External Estimated GFR 87 >=60 [facility] Comment: NOTE Chronic kidney disease is [...] MD LAB BLOOD ORDERABLES Final Re sult [facility] [address] [place] [address], documented in this encounter Visit Diagnoses Not on filedocumented in this encounter Care Teams Wound Care Physician Relationship Specialty Start Date End Date Nate Mills MD [address] [facility] [address] [place] [address] PCP - General 09/23/20 04/02/24 Efrain Angeles MD [address] [facility] [address] [place] [address] PCP - General 04/03/24 documented as of this encounter
--- OUTSIDE RECORDS SUMMARY | 2025-03-17 10:05 | XMS_ITS | Encounter Summary ---
Author Organization [facility] Address [address] [place] [address] Care Team Providers Care Police Artist Name Role Phone Nate Mills MD Primary Care Provider [phone] Efrain Angeles MD Primary Care Provider [phone] Encounter Details Date Type Department Care Team (Late st Contact Info) Description 03/20/[address] [facility] @ [address] [phone] Ebony Albrecht MD [address] [place] [address] Social History Tobacco Use Types [...] Description 03/29/2025 9:45 AM EDT Office Visit [facility] [address] [place] [phone] 03/29/2025 10:45 AM EDT Office Visit [facility] [address] [place] [phone] Ebony Albrecht MD [address] [facility] [address] [place] [phone] documented as of this encounter Procedures Procedure Name Priority Date/Time Associated Diagnosis Comments CBC WITH AUTO DIFFERENTIAL Routine 03/20/2021 9:07 AM EDT documented in this encounter Results * (ABNORMAL) CBC and Differential (03/20/2021 9:07 AM EDT) External WBC 10.7 3.8 - 10.8 K/uL [facility] External Red Blood Cell (RBC) 4.31 3.80 - 5.20 M/uL [facility] External Hemoglobin 13.7 12.0 - 16.0 G/DL [facility] External Hematocrit 39.4 35.0 - 47.0 % [facility] External MCV 91 80 - 100 fL [facility] External MCH 32 26 - 35 PG [facility] External MCHC 35 32 - 36 G/DL [facility] External RDW 13.1 11.0 - 15.0 % [facility] External Mean Platelet Volume 9.4 6.2 - 10.5 fL [facility] External Platelets 264 130 - 400 K/uL [facility] External Neutrophil# 6.0 1.6 - 8.4 K/uL [facility] External Lymphocyte# 2.8 0.4 - 5.1 K/uL [facility] External Absolute Monocyte (Abs Harvey) 0.7 0.0 - 1.2 K/uL [facility] External Eosinophils# 1.1(H) 0.0 - 0.8 K/uL [facility] External Baso# 0.1 0.0 - 0.3 K/uL [facility] External Neutrophils % 56.2 42.0 - 78.0 % [facility] External Lymphocyte % 26.2 11.0 - 47.0 % [facility] External Monocyte % 6.2 0.0 - 11.0 % [facility] External Eosinophil% 10.6(H) 0.0 - 7.0 % [facility] External Basophil % 0.8 0.0 - 3.0 % [facility] External Nucleated RBC%-Auto 0.0 0.0 - 0.9 % [facility] External Nucleated RBC Absolute 0.00 Not Estab. K/uL [facility] 03/20/2021 9:07 AM EDT 03/20/2021 9:25 AM EDT us Ebony Albrecht MD LAB BLOOD ORDERABLES Final Re sult Performing Organization Address City/State/[facility] Co de Phone Number [facility] [address] [place] [address], documented in this encounter Visit Diagnoses Not on filedocumented in this encounter Care Teams Police Artist Relationship Specialty Start Date End Date Nate Mills MD 1210 [facility] [address] [place] [address] PCP - General 09/23/20 04/02/24 Efrain Angeles MD [address] [facility] [address] [place] [id number] PCP - General 04/03/24 documented as of this encounter
--- OUTSIDE RECORDS SUMMARY | 2025-03-17 10:05 | XMS_ITS | Patient Health Record ---
Author Organization [facility] Address [address] [place] [id number] Care Team Providers Care Community Service Technician Name Role Phone Kathryn Angeles Primary Care Provider Juani Saleem Unavailable [phone] Allergies Allergen (clinical drug ingredient) Drug/Non Drug Allergy documented on EMR Reaction Allergy Type Onset Date Status nickel HUGO (uncoded) Unknown Allergy Act tamar Polypropylene glycol POLYPROPYLENE GLYCO L (uncoded) Unknown Allergy Active Levaquin Myalgias Drug Allergy Active Retinoic Acid Unknown Drug Allergy Act tamar Results Component Value Reference Range Notes H-BUN/CREAT Reviewed date:08/24/2024 09:14:07 AM Interpretation:Normal Performing Lab: Notes/Report: BUN 13 7-17 mg/dl CREATT 0.70 0.52-1.04 mg/dl GFRAA 99 >60 ML/MIN EGFR 82 >60 ml/min H-BMP Reviewed date:09/24/2024 09:20:53 AM Interpretation: Performing Lab: Notes/Report: Ultrasound : Right [place] Reviewed date:02/05/2025 01:15:25 PM Interpretation:fatty liver, sludge and stones Performing Lab: Notes/Report: fatty liver, sludge and stones P-Lipase Reviewed date:02/05/2025 01:15:25 PM Interpretation:Normal Performing Lab: Notes/Report: Test performed by [facility] , [address], [place] [address] Rafi Forbes MD, Works Manager CLIA: [id number] Lipase 25.6 13.0-60.0 u/L P-Comprehensive Metabolic Pa macario (CMP) Reviewed date:02/05/2025 01:15:25 PM Interpretation:alk phos 124 Performing Lab: Notes/Report: Test performed by [facility] [address] [place] [address] , [address], [place] [address] Rafi Forbes MD, Works Manager CLIA: [id number] Sodium 140 135-145 mmol/L Potassium 4.2 3.5-5.3 [...] <0.2 <0.2-1.2 mg/dL A/G Ratio 1.8 1.1-2.5 CBC Fingerstick (in house) Reviewed date:01/15/2025 08:37:04 [...] 100 - 400 P-Comprehensive Metabolic Pa macario ([facility]) Reviewed date:04/20/2024 10:01:19 AM Interpretation:gluc 110, alk phos 128 Performing Lab: Notes/Report: Test performed by [facility] [address] [place] [address] , [address], [place] [address] Rafi Forbes MD, Works Manager CLIA: [id number] Sodium 143 135-145 mmol/L Potassium 3.8 3.5-5.3 [...] <0.2-1.2 mg/dL A/G Ratio 1.5 1.1-2.5 mg/dL CBC Venipuncture (in house) Reviewed date:09/08/2024 10:11:08 [...] - 38 platlet 428 100 - 400 H-CBC Reviewed date:09/24/2024 09:21:35 AM Interpretation:rbc 4, [...] AGRATIO 1.7 1.1-1.8 ALP 91 38-126 U/L CT Scan : Chest w/ & w/o con trast Reviewed date:08/25/2024 08:46:58 AM Interpretation:bronchitis, bilateral breast implant rupture Performing Lab: Notes/Report: bronchitis, bilateral breast implant rupture Medications Medication SIG (Take, Route, Frequency, Duration) Notes Start Date End Date Status Triamterene-HCTZ 37.5-25 MG 1 tablet in the morning Orally Once a day for 90 days Active Potassium Chloride ER 10 MEQ Take 1 tablet by mouth twice daily for 30 Active Losartan Potassium 50 MG Take 1/2 ([facility]) tablet by mouth once daily for 90 Active Konsyl Daily Fiber 100 % 1 packet with 8 ounces of liquid as needed Orally Once a day for 30 day(s) 01/14/2025 Active Diclofenac Sodium ER 100 MG TAKE 1 TABLE T BY MOUTH NEEDED ONCE DAILY for 90 Active Albuterol Sulfate HFA 108 [...] Vaccine Route Administration Date Status Comme nts xFluzone Intradermal (18-64yrs)-trivalent ID Intradermal 06/17/2012 Administered xFluzone Intradermal (18-64yrs)-trivalent ID Intradermal 06/30/2014 Administered xFluzone (6mos and older)-trivalent IM Intramuscular 08/27/2013 Administered xFlu shot-36 months and older IM Intramuscular 08/08/2011 Administered xAdministration of injection SC Subcutaneous 10/28/2013 Administered Tetanus Tdap-Adacel (over 7yrs) IM Intramuscular 06/23/2012 Administered Shingrix IM Intramuscular 05/06/2020 Administered Shingrix Unknown 05/06/2020 Administered Shingrix IM Intramuscular 07/11/2020 Administered Prevnar (PCV13) IM Intramuscular 06/29/2015 Administered PNEUMOVAX 23 VACCINE IM Intramuscular 09/26/2016 Administe red Hepatitis A (adult) Unknown 08/19/2019 Administered H1N1 flu vaccine IM Intramuscular 10/12/2009 Administered Fluzone High Dose (65yr and older) [...] (65yr and older) IM Intramuscular 06/11/2022 Administered COVID 19 Moderna Unknown 09/28/2020 Administered COVID 19 Moderna IM Intramuscular 10/26/2020 Administered COVID 19 Moderna Unknown 06/14/2021 Administered Problems Problem Type SNOMED Code ICD Code Onset Dates Problem Status W/U Status Risk Notes Problem 480714005 Low back pain (M54.5) Active confirme d Problem Sciatica (07765586) Sciatica (M54.30) Active confirmed Problem 67302737 Essential hypertension (I10) Active confirmed Problem 019493487 Diverticulitis (K57.92) Active confirmed Problem 299573749 Hair loss (L65.9) Active confirmed Problem 892133106 Bandemia (D72.825) Active confirmed Problem 387870697 Mixed hyperlipid emia (E78.2) Active confirmed Problem Other hyperlipid emia (E78.4) Active confirmed Problem 77090511 Other chronic pa in (G89.29) Active confirmed Problem 40946888 Chronic maxillar y sinusitis (J32.0) Active confirmed Problem 57497835 Centrilobular emphysema (J43.2) Active confirmed Problem 68718519 Anosmia (R43.0) Active confirmed Problem 257578170 Breast implant s tatus (Z98.82) Active confirmed Problem 62967208 Constipation by delayed colonic transit (K59.01) Active confirmed Problem 755462036 Myofasciitis (M60.9) Active confirmed Problem 51627997 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) Active confirmed Problem 946972186 Hip joint replac ement status (Z96.649) Active confirmed Problem 280885943 Spondylolisthesi s (M43.10) Active confirmed Problem 61051033 Aortic valve sclerosis (I35.8) Active confirmed Problem 553196229 History of back surgery (Z98.890) Active confirmed Problem 311859706 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.46) Active confirmed Problem 86806269 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) Active confirmed Problem 390985755 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) Active confirmed Problem 534211046 Pedal edema (R60.0) Active confirmed Problem 215287337 Moderate persist ent asthmatic bronchitis with exacerbation (J45.41) Active confirmed Problem 851843538 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) Active confirmed Problem 47571559 Extremity cyanos is (R23.0) Active confirmed Problem 327879241 Breast implant rupture, initial encounter (T85.43XA) Active confirmed Problem 113881479 Breast implant rupture, subsequent encounter (T85.43XD) Active confirmed Vital Signs Heart Rate 66 /min 02/01/2025 Blood pressure diastolic 62 mm Hg 02/01/2025 Height 66 in 02/01/2025 Blood pressure systolic 130 mm Hg 02/01/2025 Weight 156.2 lbs 02/01/2025 BMI 25.21 kg/m2 02/01/2025 Encounters Encounter Location Date Provider Diagnosis [facility] [address], [place] [id number] 03/24/2024 Juani Saleem Acute upper respirat ory infection J06.9 and COVID-19 U07.1 [facility] [address] [place], [place] [id number] 04/16/2024 J Gabriel Angeles Bronchitis J40 and COVID-19 U07.1 [facility] [address] [place], [place] [id number] 05/28/2024 J Gabriel Angeles Essential hypertensi on I10 ; Other chronic pain G89.29 ; Centrilobular emphysema J43.2 ; Persistent cough R05.3 and Actinic keratosis L57.0 [facility] [address] [place], [place] [id number] 08/06/2024 J Gabriel Angeles Persistent cough R05 .3 [facility] [address] [place], [place] [id number] 08/27/2024 J Gabriel Karthik Bronchitis J40 [facility] [address] [place], [place] [id number] 09/07/2024 Kathryn Angeles Essential hypertensi on I10 ; Bronchitis J40 ; Diverticulitis K57.92 and Bandemia D72.825 [facility] [address] [place] [id number] 09/21/2024 J Gabriel Angeles Essential hypertensi on I10 ; Centrilobular emphysema J43.2 and Bandemia D72.825 [facility] [address] [place], [place] [id number] 11/23/2024 J Gabriel Angeles Hair loss L65.9 and Essential hypertension I10 [facility] [address] [place] [id number] 02/01/2025 Kathryn Angeles Symptomatic cholelithiasis K80.20 [facility] [address] [facility] [address] [place] [id number] 01/14/2025 J Gabriel Angeles Dyspepsia R10.13 ; Centrilobular emphysema J43.2 and BMI 25.0-25.9,adult Z68.25 [facility] [address] [place] [id number] 03/23/2024 Kathryn Angeles [facility] [address] [place] [id number] 03/24/2024 Juani Saleem [facility] [address] [facility] [address] [place] [id number] 04/20/2024 J Gabriel Angeles [facility] [address] [place] [id number] 2024 J Gabriel Angeles [facility] [address] [place] [id number] 2024 Kathryn Angeles [facility] [address] [place] [id number] 2024 J Gabriel Angeles [facility] [address] [place] [id number] 08/11/2024 Kathryn Angeles [facility] [address] [place] [id number] 08/19/2024 Kathryn Angeles Essential hypertensi on I10 [facility] [address] [place] [id number] 08/25/2024 Kathryn Angeles [facility] [address] [place] [id number] 08/28/2024 Kathryn Angeles [facility] [address] [place] [id number] 09/24/2024 Kathryn Angeles [facility] [address] [place] [id number] 01/22/2025 Kathryn Angeles [facility] [address] [place] [id number] 02/05/2025 Kathryn Angeles Assessments Encounter Date Diagnosis (ICD Code) Assessment Notes Treatment Notes Treatment Clinical Notes Section Notes 02/01/2025 Symptomatic cholelithiasis (ICD-10 - K80.20) CONT RX. AWAIT CONSULTATION 08/06/2024 Persistent cough (ICD-10 - R05.3) 08/19/2024 Essential hypertension (ICD-10 - I10) 08/27/2024 Bronchitis (ICD-10 - J40) 09/07/2024 Essential hypertension (ICD-10 - I10) 09/07/2024 Bronchitis (ICD-10 - J40) continue current therapy 11/23/2024 Essential hypertension (ICD-10 - I10) 11/23/2024 Hair loss (ICD-10 - L65.9) 01/14/2025 Dyspepsia (ICD-10 - R10.13) Recommend Align Probiotic daily 01/14/2025 Centrilobular emphysema (ICD-10 - J43.2) 03/24/2024 Acute upper respiratory infection (ICD-10 - [...] 05/28/2024 Other chronic pain (ICD-10 - G89.29) 09/21/2024 Essential hypertension (ICD-10 - I10) 09/21/2024 Centrilobular emphysema (ICD-10 - J43.2) 09/21/2024 Bandemia (ICD-10 - D72.825) 05/28/2024 Centrilobular emphysema (ICD-10 - J43.2) 01/14/2025 BMI 25.0-25.9,adult (ICD-10 - Z68.25) 09/07/2024 Diverticulitis (ICD-10 - K57.92) 09/07/2024 Bandemia (ICD-10 - D72.825) 05/28/2024 Persistent cough (ICD-10 - R05.3) 05/28/2024 Actinic keratosis (ICD-10 - L57.0) Plan Of Treatment Pending Test Test Name Order Date LC-Carcinoembryonic Antigen 05/30/2021 Next Appt Details Provider Name:Kathryn Rios Gorge er, 03/29/2025 04:15:00 PM, [address] [facility], [address], [place], [place], [id number], Insurance Providers Payer Name Payer Address Payer Phone Subscriber Number Group Number Insured Name Patient Relationship to Insured Coverage Start Date Coverage End Date MEDICARE PART B [address] [address] [place] [address] [id number] [employer]BI E[place] Self - patient is the insured [employer] MEDICARE SUPPLEMENT [address] [address] [place], [place] [id number] [phone] [id number] BAMBI EAST Self - patient is the [...] Hospitalization History Reason Date(Month/Year) kidney stone 02/2011 [facility] ER-fall 06/06
--- OUTSIDE RECORDS SUMMARY | 2025-03-17 10:05 | XMS_ITS | Clinical Summary ---
Author Organization [facility] Address [address] [place] [address] Care Team Providers Care Mate First Name Role Phone Unavailable Primary Care Provider [...] family history of breast cancer COMPARISON STUDIES: [facility] [phone]; no significant change. FINDINGS: Craniocaudal and mediolateral [...] annual screening mammography. At our facility, a [place] marker is positioned over a visible skin [...] family history of breast cancer COMPARISON STUDIES: [facility] [phone]; no significant change. FINDINGS: Craniocaudal and mediolateral [...] annual screening mammography. At our facility, a [place] marker is positioned over a visible skin [...]
--- OUTSIDE RECORDS SUMMARY | 2025-03-17 10:05 | XMS_ITS | Encounter Summary ---
Author Organization [facility] Address [address] [place] [address] Care Team Providers Care Tax Evaluator Name Role Phone Nate Mills MD Primary Care Provider [phone] Efrain Angeles MD Primary Care Provider [phone] Encounter Details Date Type Department Care Team (Late st Contact Info) Description 03/14/2021 Orders Only [facility] [address] [place] [phone] Efrain La PA [address] [place] [address] Social History Tobacco Use Types [...] EDT Office Visit [facility] [address] [place] [phone] 03/29/2025 10:45 AM EDT Office Visit [facility] [place] [address] [place] [phone] Ebony Albrecht MD 5 [facility] [address] [place] [address] documented as of this encounter Procedures Procedure Name Priority Date/Time Associated Diagnosis Comments SEDIMENTATION RATE, AUTOMATED Routine 03/14/2021 1:48 PM EDT documented in this encounter Results * Sedimentation Rate, Automated (03/14/2021 1:48 PM EDT) External Erythrocyte Sedimentation Rate 25 0 - 29 MM/HR [facility] 03/14/2021 1:48 PM EDT 03/14/2021 2:10 PM EDT Efrain KIRBY LAB BLOOD ORDERABLES Final R esult Performing Organization Address City/State/[facility] Co de Phone Number [facility] [address] [place] [address], documented in this encounter Visit Diagnoses Not on filedocumented in this encounter Care Teams Tax Evaluator Relationship Specialty Start Date End Date Nate Mills MD [address] [facility] [address] [place] [id number] PCP - General 09/23/20 04/02/24 Efrain Angeles MD [address] [facility] [address] [place] [id number] PCP - General 04/03/24 documented as of this encounter
--- OUTSIDE RECORDS SUMMARY | 2025-03-17 10:05 | XMS_ITS | Encounter Summary ---
Author Organization [facility] Address [address] [place] [address] Care Team Providers Care Client Solutions Specialist Name Role Phone Unavailable Primary Care Provider Unavailabl e Reason for Referral * Diagnostic X-Ray (Emergency) - New Request Specialty Diagnoses / Procedures Referred By Jose t Referred To Contact Diagnoses Calculus of kidney Procedures X-ray abdomen KUB 1 view Jordin Isabel MD [address] [place] [address] [address] [place] [address] Phone: tel: fax: Referral ID Status Reason Start Date Expiration Date V isits Requested Visits Authorized [id number] New Request 09/02/2024 09/02/2025 1 1 Encounter Details Date Type Department Care Team (Late st Contact Info) Description 09/02/2024 Outside Orders [facility] - [place] [facility] [address] [place] [address] [address] [place] [phone] Jordin Isabel MD [address] [place] [address] [address] [place] [address] Calculus of kidney (Primary Dx) Social History [...]
--- OUTSIDE RECORDS SUMMARY | 2025-03-17 10:05 | XMS_ITS | Encounter Summary ---
Author Organization [facility] Address [address] [place] [address] Care Team Providers Care Mental Health Aide Name Role Phone Nate Mills MD Primary Care Provider [phone] Efrain Angeles MD Primary Care Provider [phone] Encounter Details Date Type Department Care Team (Late st Contact Info) Description 03/20/2021 Orders Only [facility] @ [address] [phone] Ebony Albrecht MD [address] [address] Social History Tobacco Use Types [...] Description 03/29/2025 9:45 AM EDT Office Visit [facility] [address] [place] [phone] 03/29/2025 10:45 AM EDT Office Visit [facility] [address] [place] [phone] Ebony Albrecht MD [address] [facility] [address] [place] [address] documented as of this encounter Procedures Procedure Name Priority Date/Time Associated Diagnosis Comments CEA, SERUM Routine 03/20/2021 9:07 AM EDT documented in this encounter Results * (ABNORMAL) CEA, Serum (03/20/2021 9:07 AM EDT) External Carcinoembryonic Antigen 5.0(H) 0.0 - 4.7 ng/mL [facility] Comment: This test was performed using the Abdelrahman Awilda E801 electrochemiluminescent method. Values obtained from different assay methods cannot be used interchangeably. . 03/20/2021 9:07 AM EDT 03/20/2021 9:50 AM EDT us bEony Albrecht MD LAB BLOOD ORDERABLES Final Re sult [facility] [address] [place] [address], documented in this encounter Visit Diagnoses Not on filedocumented in this encounter Care Teams Mental Health Aide Relationship Specialty Start Date End Date Nate Mills MD 12[address] [facility] [address] [place] [address] PCP - General 09/23/20 04/02/24 Efrain Angeles MD [address] [facility] [address] [place] [address] PCP - General 04/03/24 documented as of this encounter
--- OUTSIDE RECORDS SUMMARY | 2025-03-17 10:05 | XMS_ITS | Encounter Summary ---
Author Organization [facility] Address [address] [place] [address] Care Team Providers Care Grain Mixer Name Role Phone Nate Mills MD Primary Care Provider [phone] Efrain Angeles MD Primary Care Provider [phone] Encounter Details Date Type Department Care Team (Late st Contact Info) Description 03/23/2022 Orders Only [facility] [address] [place] [phone] Ebony Albrecht MD [address] [address] Social History Tobacco Use Types [...] Description 03/29/2025 9:45 AM EDT Office Visit [facility] [address] [place] [address] 03/29/2025 10:45 AM EDT Office Visit [facility] [address] [place] [address] Ebony Albrecht MD [address] [facility] [address] [place] [address] documented as of this encounter Procedures Procedure Name Priority Date/Time Associated Diagnosis Comments CEA, SERUM Routine 03/23/2022 9:07 AM EDT documented in this encounter Results * CEA, Serum (03/23/2022 9:07 AM EDT) External Carcinoembryonic Antigen 4.2 0.0 - 4.7 ng/mL [facility] Comment: This test was performed using the Abdelrahman Awilda E801 electrochemiluminescent method. Values obtained from different assay methods cannot be used interchangeably. . 03/23/2022 9:07 AM EDT 03/23/2022 9:25 AM EDT us Ebony Albrecht MD LAB BLOOD ORDERABLES Final Re sult [facility] [address] [place] [address], documented in this encounter Visit Diagnoses Not on filedocumented in this encounter Care Teams Grain Mixer Relationship Specialty Start Date End Date Nate Mills MD [address] [facility] [address] [place] [address] PCP - General 09/23/20 04/02/24 Efrain Angeles MD 1210 [facility] [address] [place] [address] PCP - General 04/03/24 documented as of this encounter
--- OUTSIDE RECORDS SUMMARY | 2025-03-17 10:05 | XMS_ITS | Encounter Summary ---
Author Organization [facility] Address [address] [place] [address] Care Team Providers Care Wallpaper Embosser Helper Name Role Phone Nate Mills MD Primary Care Provider [phone] Efrain Angeles MD Primary Care Provider [phone] Encounter Details Date Type Department Care Team (Late st Contact Info) Description 03/23/2022 Orders Only [facility] [address] [place] [phone] Ebony Albrecht MD [address] [address] Social History Tobacco Use Types [...] 03/29/2025 9:45 AM EDT Office Visit [facility] [address] [place] [address] 03/29/2025 10:45 AM EDT Office Visit [facility] [address] [place] [address] Ebony Albrecht MD [address] [facility] [address] [place] [phone] documented as of this encounter Procedures Procedure Name Priority Date/Time Associated Diagnosis Comments CBC WITH AUTO DIFFERENTIAL Routine 03/23/2022 9:07 AM EDT documented in this encounter Results * (ABNORMAL) CBC and Differential (03/23/2022 9:07 AM EDT) External WBC 14.0(H) 3.8 - 10.8 K/uL [facility] External Red Blood Cell (RBC) 4.33 3.80 - 5.20 M/uL [facility] External Hemoglobin 13.3 12.0 - 16.0 G/DL [facility] External Hematocrit 39.2 35.0 - 47.0 % [facility] External MCV 91 80 - 100 fL [facility] External MCH 31 26 - 35 PG [facility] External MCHC 34 32 - 36 G/DL [facility] External RDW 13.2 11.0 - 15.0 % [facility] External Mean Platelet Volume 9.6 6.2 - 10.5 fL [facility] External Platelets 248 130 - 400 K/uL [facility] External Neutrophil# 9.3(H) 1.6 - 8.4 K/uL [facility] External Lymphocyte# 3.0 0.4 - 5.1 K/uL [facility] External Absolute Monocyte (Abs [place]) 0.7 0.0 - 1.2 K/uL [facility] External Eosinophils# 0.8 0.0 - 0.8 K/uL [facility] External Baso# 0.2 0.0 - 0.3 K/uL [facility] External Neutrophils % 66.7 42.0 - 78.0 % [facility] External Lymphocyte % 21.2 11.0 - 47.0 % [facility] External Monocyte % 5.1 0.0 - 11.0 % [facility] External Eosinophil% 5.8 0.0 - 7.0 % [facility] External Basophil % 1.2 0.0 - 3.0 % [facility] External Nucleated RBC%-Auto 0.1 0.0 - 0.9 % [facility] External Nucleated RBC Absolute 0.01 Not Estab. K/uL [facility] 03/23/2022 9:07 AM EDT 03/23/2022 9:25 AM EDT us Ebony Albrecht MD LAB BLOOD ORDERABLES Final Re sult [facility] [address] [place] [address], documented in this encounter Visit Diagnoses Not on filedocumented in this encounter Care Teams Wallpaper Embosser Helper Relationship Specialty Start Date End Date Nate Mills MD [address] [facility] [address] [place] [address] PCP - General 09/23/20 04/02/24 Efrain Angeles MD [address] [facility] [address] [place] [id number] PCP - General 04/03/24 documented as of this encounter
--- OUTSIDE RECORDS SUMMARY | 2025-03-17 10:05 | XMS_ITS | Encounter Summary ---
Author Organization [facility] Address [address] [place] [address] Care Team Providers Care Nut Tightener Name Role Phone Nate Mills MD Primary Care Provider [phone] Efrain Angeles MD Primary Care Provider [phone] Encounter Details Date Type Department Care Team (Late st Contact Info) Description 03/14/[address] [facility] [address] [place] [address] [phone] Efrain La PA [address] [place] [address] Social History Tobacco Use Types [...] Description 03/29/2025 9:45 AM EDT Office Visit [facility] [address] [place] [phone] 03/29/2025 10:45 AM EDT Office Visit [facility] [place] [address] [place] [phone] Ebony Albrecht MD [address] [facility] [address] [place] [phone] documented as of this encounter Procedures Procedure Name Priority Date/Time Associated Diagnosis Comments D DIMER, QUANTITATIVE Routine 03/14/2021 1:48 PM EDT documented in this encounter Results * (ABNORMAL) D DIMER, QUANTITATIVE (03/14/2021 1:48 PM EDT) External D-Dimer 1.12(H) <0.50 mcg/mL FEU [facility] Comment: The D-Dimer test is used [...] 11:295(2):199-207] For additional information, please refer to: http://education.Pharmapod/faq/PIE736 (This link is being provided for informational/ educational purposes only) TEST PERFORMED AT: [employer] [address] [id number] HARVINDER CULVER M.D. 03/14/2021 1:48 PM EDT 03/14/2021 2:38 PM EDT us Efrain [facility] BLOOD ORDERABLES Final R esult [facility] [address] [place] [address], documented in this encounter Visit Diagnoses Not on filedocumented in this encounter Care Teams Nut Tightener Relationship Specialty Start Date End Date Nate Mills MD [address] [facility] [address] [place] [address] PCP - General 09/23/20 04/02/24 Efrain Angeles MD [address] [place] [facility] [address] [place] [address] PCP - General 04/03/24 documented as of this encounter
--- OUTSIDE RECORDS SUMMARY | 2025-03-17 10:06 | XMS_ITS | Data Portability ---
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 Plan of Treatment Reminders Order Date Submit Date Provider Last Modified By Organization Details Last Modified Time Details Appointments RECHECK 2024 02:00P M LOUISE DESHPANDE MD Not available Not available Not available Lab urinalysi s panel, auto [email or web address] [facility], [address], [place], [address], 10/07/2024 13:28:40 Referral None recorded. Procedures None recorded. Surgeries None recorded. Imaging None recorded. Medication Orders Myrbetriq 50 mg tablet,ex tended release 2024 025 [facility], [address], [address], 10/07/2024 13:28:45 Patient TargetsNo targets recorded. Patient Instructions Encounter Date Encounter Id Patient Instructions Last Modified By Organization Details Last Modified Time 12/02/2024 [id number] Audiological evaluation today revealed a moderate sensorineural hearing loss in the right ear with very good speech discrimination abilities. A moderate sensorineural hearing loss with very good speech discrimination abilities were noted in the left ear. There is no significant difference for speech discrimination abilities or pure tone responses between the ears. There has been no significant change in thresholds for both ears in reference to the previous evaluation. There was a mild reduction in WDS in reference to her previous evaluation. Regular hearing aid check. Patient reports intermittent bluetooth connection from both aids. (Hearing flight mode warning sound) Problem identified: none The wax traps and domes were replaced and the aids were placed in the dehumidifier. Reset BT connections and reprogrammed HAs to current audiologcial findings. Listening check was good for both aids, no distortion or weakness was detected. Recommendations: 1. Continue to monitor HL 2. Return in 6 months for another hearing aid check or sooner if problems arise. The patient returned, the intermittent BT connection continues. 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 She would like to see if she qualifies for DVR coverage. Provided her with a copy of her audio and contact info for DVR. She will return for a HAE if authorized or will drop the HAs off for repair if denied. [email or web address] Not available 12/02/2024 15:42:47 12/09/2024 [id number] Connectivity/fli gh t mode problem continues. She has been in contact with DVR but doesn't expect to be approved until February. She would like to send the HAs in for OW repair >5 yrs old. She was given loaner HAs to use until the HAs return. Loaner HAs were connected to her phone, connectivity confirmed in the office. 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 [email or web address] Not available 12/09/2024 16:39:46 Reason for Referral None Reported. Results Created Date Observation Date Name Description Value Unit Range Abnormal Flag Note LastModifiedBy Organization Detail LastModifiedTime 10/07/1910/07/2024 urina lysis panel , auto Unknown Analyte Clean Catch Not Available [facility] [address] [facility] [address], [place], [address], 10/07/2024 12:48:19 10/07/1910/07/2024 urina lysis panel , auto Unknown Analyte Yellow Not Available [facility] [address], [place], [address], 10/07/2024 12:48:19 10/07/19 25 10/07/2024 urina lysis panel , auto Unknown Analyte Clear Not Available [facility] [address], [place], [address], 10/07/2024 12:48:19 10/07/1910/07/2024 urina lysis panel , auto Unknown Analyte 1.005 Not Available [facility] [address], [place], [address], 10/07/2024 12:48:19 10/07/19 25 10/07/2024 urina lysis panel , auto Unknown Analyte 1.003- 1.035 Not Available [facility] [place] [address], [place], [address], 10/07/2024 12:48:19 10/07/19 25 10/07/2024 urina lysis panel , auto Unknown Analyte 7.0 Not Available [facility] [address], [place], [address], 10/07/2024 12:48:19 10/07/1910/07/2024 urina lysis panel , auto Unknown Analyte 5.0-8. 0 Not Available [facility] [address], [place], [address], 10/07/2024 12:48:19 10/07/19 25 10/07/2024 urina lysis panel , auto Unknown Analyte Negati ve Not Available [facility] [address], [place], [address], 10/07/2024 12:48:19 10/07/19 25 10/07/2024 urina lysis panel , auto Unknown Analyte Negati ve Not Available [facility] [address], [place], [address], 10/07/2024 12:48:19 10/07/19 25 10/07/2024 urina lysis panel , auto Unknown Analyte Negati ve Not Available [facility] [address], [place], [address], 10/07/2024 12:48:19 10/07/19 25 10/07/2024 urina lysis panel , auto Unknown Analyte Negati ve Not Available [facility] [address], [place], [address], 10/07/2024 12:48:19 10/07/19 25 10/07/2024 urina lysis panel , auto Unknown Analyte Negati ve Not Available [facility] [address], [place], [address], 10/07/2024 12:48:19 10/07/1910/07/2024 urina lysis panel , auto Unknown Analyte Negati ve Not Available [facility] [address], [place], [address], 10/07/2024 12:48:19 10/07/19 25 10/07/2024 urina lysis panel , auto Unknown Analyte Normal Not Available [facility] [address], [place], [address], 10/07/2024 12:48:19 10/07/19 25 10/07/2024 urina lysis panel , auto Unknown Analyte Normal Not Available [facility] [address], [place], [address], 10/07/2024 12:48:19 10/07/1910/07/2024 urina lysis panel , auto Unknown Analyte Negati ve Not Available [facility] [address], [place], [address], 10/07/2024 12:48:19 10/07/1910/07/2024 urina lysis panel , auto Unknown Analyte Negati ve Not Available [facility] [address], [place], [address], 10/07/2024 12:48:19 10/07/1910/07/2024 urina lysis panel , auto Unknown Analyte Normal Not Available [facility] [address], [place], [address], 10/07/2024 12:48:19 10/07/1910/07/2024 urina lysis panel , auto Unknown Analyte Normal 1 mg/dl Not Available [facility] [address], [place], [address], 10/07/2024 12:48:19 10/07/1910/07/2024 urina lysis panel , auto Unknown Analyte Negati ve Not Available [facility] [address], [place], [address], 10/07/2024 12:48:19 10/07/19 25 10/07/2024 urina lysis panel , auto Unknown Analyte Negati ve Not Available [facility] [address], [place], [address], 10/07/2024 12:48:19 10/07/1910/07/2024 urina lysis panel , auto Unknown Analyte Negati ve Not Available [facility] [address], [place], [address], 10/07/2024 12:48:19 10/07/19 25 10/07/2024 urina lysis panel , auto Unknown Analyte Negati ve Not Available [facility] [address], [place], [address], 10/07/2024 12:48:19 Result Notes None recorded. 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 From Automated Load;Provi alex: Samira Oh;Sta tus: Active Not Available [facility] 10:00:49 Idiopathi c osteoarth ritis 727413699 Active 2015 From Automated Load;Provi alex: Samira Oh;Sta tus: Active Not Available [facility] 10:00:49 Acquired trigger finger 7717157 Active 2015 From Automated Load;Provi alex: Binta Hatch;St atus: Active Not Available [facility] 10:00:49 Low back pain 211178191 Active 2015 Provider: Mckayla Sawant;Sta tus: Active Not Available [facility] 6 10:00:49 Pain in right lower limb 639348499 Active 2015 From Automated Load;Provi alex: Mckayla Sawant;Sta tus: Active Not Available [facility] 7 08:17:17 Problem Notes None recorded. Procedures Surgical History Date Name Laterality Status Provider Name and Address Organization Details Recorded Time 12/03/19 Audiogram completed BOB FERNANDEZ, AUD [address] [place], [address], [facility] 12/02/2024 14:15:27 02/04/20 24 Cervical Epidural Steroid Injection - Edith completed BINTA VALLE MD [address] [place], [address], [facility] 02/04/2024 16:42:53 12/10/19 24 Lumbar Epidural Steroid Injection - Edith completed BINTA VALLE MD [address] [place], [address], [facility] 12/10/2023 13:08:38 10/15/19 24 Injection Joint/Bursa, Major completed Steve Jiang [facility] 11/03/2023 10:26:01 07/17/20 23 PTNM; single treatment completed Lissette Llanes [facility] 07/17/2023 10:20:48 07/10/20 23 PTNM; single treatment completed Lissette Llanes [facility] 07/10/2023 10:57:02 07/03/20 23 PTNM; single treatment completed Lissette Llanes [facility] 07/03/2023 10:00:46 06/26/20 Tympanogram completed BOB FERNANDEZ, AUD [address] [place], [address], [facility] 06/26/2023 14:08:53 06/26/20 Audiogram completed BOB FERNANDEZ AUD [address] [place], [address], [facility] 06/26/2023 13:46:18 06/26/20 PTNM; single treatment completed Lissette Llanes [facility] 06/26/2023 09:57:04 06/19/20 PTNM; single treatment completed Lissette Llanes [facility] 06/19/2023 10:02:20 06/18/20 Injection Joint/Bursa, Major completed SAMIRA VELASQUEZ MD [address] [place], [address], [facility] 06/18/2023 18:09:20 06/12/20 PTNM; single treatment completed Lissette Llanes [facility] 06/12/2023 09:32:33 06/05/20 PTNM; single treatment completed Lissette Llanes [facility] 06/05/2023 10:11:13 05/22/20 [facility]NM; [facility] 09:36:10 05/15/20 PTNM; [facility] 10:24:29 05/08/20 PTNM; [facility]/08[facility]23 09:34:42 05/01/20 PTNM; [facility]/01[facility] 09:38:00 04/24/20 PTNM; single treatment completed Lissette Llanes [facility] 04/24/2023 10:00:07 03/19/20 Injection Joint/Bursa, Major completed SAMIRA VELASQUEZ MD [address] [place], [address], [facility] 03/19/2023 19:21:27 01/03/20 PTNM; single treatment completed Lissette Llanes [facility] 01/02/2023 14:15:39 11/29/19 PTNM; single treatment completed Lissette Llanes [facility] 11/28/2022 11:13:43 02/15/20 23 PNE Implantation; Sacral Nerve completed Lissette Llanes [facility] 11/07/2022 15:36:06 10/10/19 23 PTNM; single treatment completed Lissette Llanes [facility] 10/10/2022 14:05:47 08/28/20 22 PTNM; single treatment completed Lissette Llanes [facility] 08/28/2022 16:08:39 07/18/20 22 PTNM; single treatment completed Lissette Llanes [facility] 07/18/2022 14:06:01 06/12/20 22 PTNM; single treatment completed Lissette Llanes [facility] 06/12/2022 09:28:34 04/30/20 22 PTNM; single treatment completed Lissette Llanes [facility] 04/30/2022 09:46:41 03/28/20 22 PTNM; single treatment completed Lissette Llanes [facility] 03/28/2022 12:10:29 02/03/20 22 PTNM; single treatment completed Marian Zamorano [facility] 02/02/2022 12:54:09 01/06/20 22 PTNM; single treatment completed Lissette Llanes [facility] 01/05/2022 09:43:05 12/09/19 22 PTNM; single treatment completed Lissette Llanes [facility] 12/08/2021 09:16:36 11/03/19 22 Orthotic, HFO, Static Custom completed MARIANO LUCERO JR, OTR/L, CHT [address] [place], [address], [facility] 11/03/2021 10:19:47 11/01/19 22 PTNM; single treatment completed Shamika Cook [facility] 11/01/2021 14:15:16 09/27/19 22 PTNM; single treatment completed Lissette Llanes [facility] 09/27/2021 13:44:55 08/30/20 21 PTNM; single treatment completed Lissette Llanes [facility] 08/30/2021 13:49:55 08/02/20 21 PTNM; single treatment completed Lissette Llanes [facility] 08/02/2021 13:39:59 07/05/20 PTNM; single treatment completed Fredericeriee [place] - [facility] 07/05/2021 14:16:42 06/08/20 Audiogram completed BOB REBECCA, AUD [address] [place], [address], [facility] 06/08/2021 14:36:24 06/07/20 PTNM; single treatment completed Lissette Llanes [place] [facility] 06/07/2021 13:51:12 05/10/20 PTNM; single treatment completed Lissette Llanes [place] [facility] 05/10/2021 13:50:25 04/12/20 PTNM; single treatment completed Deseriee [place] [facility] 04/12/2021 14:41:42 03/15/20 PTNM; single treatment completed Shamika Cook [place] [facility] 03/15/2021 14:14:49 02/16/20 PTNM; single treatment completed Marian Zamorano [facility] 02/15/2021 14:11:53 01/19/20 PTNM; single treatment completed Lissette Llanes [facility] 01/18/2021 15:01:10 12/15/19 PTNM; single treatment completed Lissette Llanes [facility] 12/14/2020 14:29:21 11/16/19 PTNM; single treatment completed Lissette Llanes [place] [facility] 11/16/2020 14:08:30 10/19/19 PTNM; single treatment completed Lissette Llanes [facility] 10/19/2020 14:14:48 09/21/20 PTNM; single treatment completed Fredericeriee [place] [facility] 09/21/2020 14:10:25 08/17/20 PTNM; single treatment completed Lissette Llanes [facility] 08/17/2020 12:42:47 07/20/20 PTNM; single treatment completed Lissette Llanes [place] [facility] 07/20/2020 14:31:41 09/30/20 20 PTNM; single treatment completed Lissette Llanes [place] - [facility] 06/22/2020 15:07:04 05/25/20 PTNM; single treatment completed Lissette LEIJA - [facility] 05/25/2020 14:54:12 04/27/20 PTNM; single treatment completed Lissette Llanes [place] - [facility] 04/27/2020 15:14:35 03/30/20 20 PTNM; single treatment completed Elton Roth [place] - [facility] 03/30/2020 13:54:01 02/24/20 PTNM; single treatment completed Lissette Llanes [place] [facility] 02/24/2020 12:22:05 01/28/20 PTNM; single treatment completed Lissette Llanes [place] [facility] 01/28/2020 14:31:41 12/02/19 PTNM; single treatment completed Lissette Llanes [place] [facility] 12/02/2019 13:41:35 10/28/19 PTNM; single treatment completed Lissette Llanes [place] [facility] 10/28/2019 13:34:17 09/30/19 PTNM; single treatment completed Lissette Llanes [place] [facility] 09/30/2019 13:36:55 08/26/20 PTNM; single treatment completed Lissette Llanes [place] [facility] 08/26/2019 14:23:11 07/29/20 19 PTNM; single treatment completed Elton Roth [place] [facility] 07/29/2019 13:40:34 06/24/20 PTNM; single treatment completed Lissette Llanes [place] [facility] 06/24/2019 13:47:33 05/27/20 PTNM; single treatment completed Aby Garland [place] [facility] 05/27/2019 13:26:10 04/22/20 PTNM; single treatment completed Lissette Llanes [place] [facility] 04/22/2019 13:48:48 03/25/20 PTNM; single treatment completed Lissette Llanes [place] [facility] 03/25/2019 13:38:21 02/19/20 PTNM; single treatment completed Lissette Llanes [place] [facility] 02/18/2019 13:36:03 01/22/20 19 PTNM; single treatment completed Lissette Llanes [place] [facility] 01/21/2019 13:28:09 12/25/19 19 PTNM; single treatment completed Deseriee [place] [facility] 12/24/2018 13:27:25 11/27/19 19 PTNM; single treatment completed Lissette Llanes [place] [facility] 11/26/2018 13:23:30 10/29/19 19 PTNM; single treatment completed Lissette Llanes [place] [facility] 10/29/2018 13:24:59 10/01/19 19 PTNM; single treatment completed Lissette Llanes [place] [facility] 10/01/2018 13:37:18 09/03/20 18 PTNM; single treatment completed Lissette Llanes [place] [facility] 09/03/2018 14:01:41 08/06/20 18 PTNM; single treatment completed Deseriee [place] [facility] 08/06/2018 13:24:22 07/09/20 18 PTNM; single treatment completed Deseriee [place] [facility] 07/09/2018 13:53:27 06/11/20 18 PTNM; single treatment completed Deseriee [place] [facility] 06/11/2018 13:43:34 05/14/20 18 PTNM; single treatment completed Lissette Llanes [place] [facility] 05/14/2018 13:35:13 04/16/20 18 PTNM; single treatment completed Lissette Llanes [place] [facility] 04/16/2018 13:40:58 03/19/20 18 PTNM; single treatment completed Lissette Llanes [place] [facility] 03/19/2018 15:35:10 02/20/20 18 PTNM; single treatment completed Lissette Llanes [place] [facility] 02/19/2018 13:52:08 02/13/20 18 PTNM; single treatment completed Lissettemissy Llanes [place] [facility] 02/12/2018 14:51:22 02/06/20 18 PTNM; single treatment completed Lissette Llanes [place] [facility] 02/05/2018 14:19:59 01/30/20 18 PTNM; single treatment completed Lissette Shraddha [place] [facility] 01/29/2018 14:04:02 01/23/20 18 PTNM; single treatment completed Lissette Shraddha [facility] 01/22/2018 13:51:44 01/16/20 18 PTNM; single treatment completed Lissette Carranzaford [facility] 01/15/2018 14:31:08 01/09/20 18 PTNM; single treatment completed Lissette Vinton [facility] 01/08/2018 14:04:38 01/02/20 18 PTNM; single treatment completed Lissette Carranzaford [facility] 01/01/2018 14:04:04 12/26/19 18 PTNM; single treatment completed Lissette Shraddha [facility] 12/25/2017 13:48:37 12/19/19 18 PTNM; single treatment completed Lissette Shraddha [facility] 12/18/2017 14:07:42 12/14/19 18 Injection Joint/Bursa, Major completed SAMIRA VELASQUEZ MD [address] [place], [address], [facility] 12/13/2017 08:27:52 12/12/19 18 PTNM; single treatment completed Lissette Vinton [facility] 12/11/2017 14:38:33 12/05/19 18 PTNM; single treatment completed Lissette Carranzaford [facility] 12/04/2017 14:31:53 11/20/19 17 Injection Joint/Bursa, Major, w/o US completed SAMIRA VELASQUEZ MD [address] [place], [address], [facility] 11/20/2016 16:42:55 09/23/19 16 Back Surgery completed Mita Omalley [facility] 11/27/2023 09:40:35 Total hip arthroplasty completed Pawan Storm [facility] 02/13/2019 08:01:33 Total Colectomy completed Мария Charles [facility] 01/20/2018 14:24:43 Tonsillectomy completed Мария Charles [facility] 01/20/2018 14:24:49 Hip Replacement completed Мария Charles [facility] 01/20/2018 14:25:08 Imaging Results None recorded. Procedure [...] Available Not Available No t Available Vitals Date Recorded Body height Body mass index (BMI) Body weight Provider Name and Address Organization Details Last Updated DateTime 10/07/2024 167.64 cm 26.1 kg/m2 27804.96 g Joyce Mendiola [facility] 10/07/2024 12:42:49 Social History Question Answer Notes LastModified by Organizat ion Details LastModified Time Tobacco Smoking Status Former Smoker Cleo best [facility] 09/21/2016 10:43:51 Accident Related Injury No Information [...] available 01/14/2024 What Is Your Relationship Status? [email or web address] Information not available 11/27/2023 How Much Tobacco Do You Smoke? No [email or web address] Information not available 06/10/2020 Has Tobacco Cessation Counseling Been Provided? No Information not available 11/27/2023 Work Related Injury? [...] N Immune System Disorder N Heart Attack ([place]) N Mental Illness N Neurological Problems N [...] SNOMED-CT Code Diagnosis ICD10 Code Diagnosis Note [id number] SAMIRA Bang MD [facility] [address] [place] [id number] 09/21/2016 10:24:20 09/21/2016 13:46:09 Greater trochanteric pain syndrome 2461422 M70.61 [id number] SAMIRA Bang MD [facility] [address] [place] [id number] 11/20/2016 15:26:22 11/20/2016 16:43:05 Greater trochanteric pain syndrome 4663326 M70.61 [id number] SAMIRA Bang MD [facility] [address] [place] [address] 01/29/2017 09:32:51 01/29/2017 10:24:17 Greater trochanteric pain syndrome 8566331 M70.61 Total repl acement of hip [id number] Z96.767 [id number] BOB FERNANDEZ AUD [facility] [address] [place] [address] 02/26/2017 15:45:49 02/26/2017 17:11:34 [id number] [place] [address] [place] [address] 03/27/2017 13:37:33 03/27/2017 15:28:05 [id number] [place] [address] [place], [place] [address] 04/04/2017 16:10:59 04/04/2017 17:43:54 [id number] BOB FERNANDEZ AUD ENT SB [address] [place] [address]060 1 04/10/2017 17:14:42 04/10/2017 17:16:49 [id number] [place] [address] [place] [address]030 1 05/01/2017 15:30:34 05/01/2017 17:15:17 [id number] BOB FERNANDEZ AUD ENT SB [address] [place] [address]828 1 05/15/2017 14:41:24 05/15/2017 16:31:32 [id number] SAMIRA Bang MD ORTHOPEDI [address] [address] 5 07/04/2017 15:10:26 07/05/2017 14:03:16 Total replacement of hip [id number] Z96.563 [id number] BOB FERNANDEZ AUD ENT SB [address] [place] [address]-068 1 07/30/2017 15:48:24 07/30/2017 17:37:36 [id number] BOB FERNANDEZ AUD ENT SB [address] [place] [address] 6[address]40-610 1 2017 15:07:58 2017 17:18:55 [id number] BOB FERNANDEZ AUD ENT SB [address] [place] [address]59-043 1 08/21/2017 13:31:49 08/21/2017 15:40:27 [id number] BOB FERNANDEZ AUD ENT SB [address] [place] [address] 93267-749 1 10/16/2017 14:30:17 10/16/2017 14:58:16 [id number] BOB FERNANDEZ AUD ENT SB [address] [place] [address]63-575 1 10/30/2017 13:44:11 10/30/2017 15:22:52 [id number] BOB FERNANDEZ AUD ENT SB [address] [place] [address] 03083-462 1 11/20/2017 16:03:40 11/20/2017 16:35:48 [id number] LOUISE DESHAPNDE MD [facility] [address] [place], [place] [address] 12/04/2017 13:22:50 12/04/2017 15:12:05 Urge incontinence of urine [id number] N39.41 [id number] LOUISE DESHPANDE MD [facility] [address],[place] [place] [address] 12/11/2017 13:51:44 12/13/2017 10:20:52 Urge incontinence of urine [id number] N39.41 [id number] SAMIRA Bang MD ORTHOPEDI CS [facility] CLOSED [address] [place] [address] 12/13/2017 07:33:00 12/13/2017 08:26:57 Greater trochanteric pain syndrome [id number] M70.60 [id number] LOUISE DESHPANDE MD [facility] [address] [address] 12/18/2017 13:39:55 12/19/2017 09:21:37 Urge incontinence of urine [id number] N39.41 [id number] LOUISE DESHPANDE MD [facility] [address] [address] 12/25/2017 13:26:52 12/25/2017 16:42:07 Urge incontinence of urine [id number] N39.41 [id number] YOSELIN SCHMID ENT SB [address] [place] [address] 1 12/25/2017 14:43:13 12/25/2017 16:53:32 [id number] LOUISE DESHPANDE MD [facility] [address] [address] 01/01/2018 13:34:24 01/01/2018 14:32:05 Urge incontinence of urine [id number] N39.41 [id number] YOSELIN SCHMID ENT SB [address] [place] [address] 1 01/01/2018 14:46:50 01/01/2018 15:47:01 [id number] LOUISE DESHPANDE MD [facility] [address] [place] [address] 01/08/2018 13:37:51 01/08/2018 14:50:50 Urge incontinence of urine 41607732 N39.41 [id number] LOUISE DESHPANDE MD [facility] [address] [place] [address] 0 01/15/2018 13:24:09 01/15/2018 15:42:47 Urge incontinence of urine [id number] N39.41 [id number] MARIAN HICKS MD HEM/ONC [facility] [address] [place] [address] 01/20/2018 13:51:51 01/20/2018 15:07:06 High carcinoembryonic antigen level 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 Most recent CT reveals stable pulmonary nodules. We will FU CEA today and rescan chest in 6 months to confirm stability. Pt is up to date on mammogram and cervical screening. annually. Pt is a nonsmoker. Differenti al is an anomalous lab versus recurrent disease that is not detected by current CT versus another malignancy . We will obtain colonoscop y reports as well. History of malignant neoplasm of colon 486144864 Z85.038 As above. Overweight 604406186 E66 .3 Continue exercise. Pt has lost 20 pounds intentiona lly by running. [id number] MD [facility] [address] [place] [address] 01/22/2018 12:52:01 01/22/2018 14:30:27 Urge incontinence of urine [id number] N39.41 [id number] MD [facility] [address] [place] [address] 01/29/2018 13:28:34 01/29/2018 14:49:41 Urge incontinence of urine 40362572 N39.41 [id number] MD [facility] [address] [place] [address] 02/05/2018 13:34:01 02/05/2018 15:24:33 Urge incontinence of urine 46891327 N39.41 [id number] MD [facility] [address] [address] 02/12/2018 13:24:21 02/12/2018 17:00:16 Urge incontinence of urine [id number] N39.41 [id number] LOUISE DESHPANDE MD [facility] [address],[place] [address] 0 02/19/2018 13:29:19 02/19/2018 15:16:09 Urge incontinence of urine 44973724 N39.41 continue therapy follow-up 1 month for maintenanc e treatment. She will continue on a monthly basis and see me in 6 months Urinary tr act infectious disease 82968778 N39.0 if her urine grows significan t bacteria we will place her on appropriat e antibiotic s [id number] BOB REBECCA, AUD ENT SB [address] [place] [address] 1 03/04/2018 14:34:09 03/04/2018 15:46:16 [id number] MD [facility] [address] [place] [address] 03/19/2018 14:38:02 03/19/2018 16:27:34 Urge incontinence of urine [id number] N39.41 continue therapy follow-up 1 month for maintenanc e treatment. She will continue on a monthly basis and see me in 6 months [id number] MD [facility] [address] [address] 04/16/2018 13:15:32 04/16/2018 14:06:56 Urge incontinence of urine 77267113 N39.41 continue therapy follow-up 1 month for maintenanc e treatment. She will continue on a monthly basis and see me in 6 months [id number] SAMIRA Bang MD ORTHOPEDI [address] [place] [address] 04/24/2018 15:19:29 04/24/2018 16:33:05 Total replacement of hip 31614500 Z96.641 History of total replacement of right hip joint [id number] 62657 Z96.373 [id number] LOUISE DESHPANDE MD [facility] [address] [place] [address] 05/14/2018 13:20:11 05/14/2018 14:12:54 Urge incontinence of urine [id number] N39.41 continue therapy follow-up 1 month for maintenanc e treatment. She will continue on a monthly basis and see me in 6 months [id number] FANNIE HURD MD [facility] [address] [place] [id number] 0 06/06/2018 13:08:11 06/06/2018 15:01:16 Urge incontinence of urine 36784550 N39.41 [id number] LOUISE DESHPANDE MD [facility] [address] [place] [address] 06/11/2018 13:08:23 06/11/2018 14:07:03 Urge incontinence of urine [id number] N39.41 continue therapy follow-up 1 month for maintenanc e treatment. She will continue on a monthly basis and see me in 6 months [id number] MARIAN HICKS MD HEM/ONC [facility] [address] [place] [address] 06/19/2018 10:38:44 06/19/2018 12:41:35 High carcinoembryonic antigen level 660076838 R97.0 This is normal today. She is doing well. She will colonoscop y when due. History of malignant neoplasm of colon 929849862 Z85.038 As above. Overweight 114613972 E66 .3 Continue exercise. Pt has lost 20 pounds over the past year intentiona lly by running. Solitary n odule of lung 486470804 R91.1 This is stable. [id number] BOB FERNANDEZ YOSELIN ENT SB [address] [place] [address] 1 07/02/2018 13:31:54 07/02/2018 17:14:02 [id number] LOUISE DESHPANDE MD [facility] [address],[place] [place] [address] 0 07/09/2018 13:27:42 07/09/2018 14:27:24 Urge incontinence of urine 87626813 N39.41 continue therapy follow-up 1 month for maintenanc e treatment. She will continue on a monthly basis and see me in 6 months [id number] YOSELIN SCHMID ENT SB [address] [place] [address] 1 07/23/2018 13:14:06 07/23/2018 16:48:49 [id number] LOUISE DESHPANDE MD [facility] [address],[place] [place] [address] 0 08/06/2018 13:08:12 08/06/2018 13:57:02 Urge incontinence of urine 00992512 N39.41 continue therapy follow-up 1 month for maintenanc e treatment. She will continue on a monthly basis and see me in 6 months [id number] YOSELIN SCHMID ENT SB [address] [place] [address] 1 08/06/2018 14:16:48 08/06/2018 17:13:32 [id number] YOSELIN SCHMID ENT SB [address] [place] [address] 1 08/20/2018 12:58:34 08/20/2018 17:30:15 [id number] LOUISE DESHPANDE MD [facility] [address],[place] [place] [address] 0 09/03/2018 13:31:10 09/03/2018 14:28:40 Urge incontinence of urine 57808759 N39.41 continue therapy follow-up 1 month for maintenanc e treatment. She will continue on a monthly basis and see me in 6 months [id number] LOUISE DESHPANDE MD [facility] [address] [place] [address] 10/01/2018 13:03:12 10/01/2018 14:30:37 Urge incontinence of urine 79930178 N39.41 continue therapy follow-up 1 month for maintenanc e treatment. She will continue on a monthly basis and see me in 6 months [id number] BOB FERNANDEZYOSELIN ENT SB [address] [place] [address] 10/01/2018 14:31:18 05/27/2020 08:21:28 [id number] LOUISE DESHPANDE MD [facility] [address] [place] [address] 0 10/29/2018 13:11:06 10/29/2018 13:56:25 Urge incontinence of urine [id number] N39.41 continue therapy follow-up 1 month for maintenanc e treatment. She will continue on a monthly basis and see me in 6 months [id number] LOUISE DESHPANDE MD [facility] [address] [place] [address] 0 11/26/2018 13:05:08 11/26/2018 14:14:34 Urge incontinence of urine 00723349 N39.41 continue therapy follow-up 1 month for maintenanc e treatment. She will continue on a monthly basis and see me in 6 months [id number] BOB FERNANDEZYOSELIN ENT SB [address] [place] [address] 12/16/2018 07:24:50 12/16/2018 10:00:48 [id number] MARIAN HICKS MD HEM/ONC [facility] [address] [place] [address] 12/16/2018 10:01:42 12/16/2018 11:25:21 High carcinoembryonic antigen level 082611360 R97.0 FU labs today. She is doing well. History of malignant neoplasm of colon 148411329 Z85.038 As above. Overweight 077619478 E66 .3 Continue exercise. Pt has lost 20 pounds over the past year intentiona lly by running. Solitary n odule of lung 312062549 R91.1 This is stable. Community acquired pneumonia 883481698 J18.9 Begin levaquin 500 mg po daily x 7 days. Pt will FU CT in 3 months. Suspect RITA secondary to this. [id number] MD [facility] [address],[place] [address] 12/24/2018 13:05:37 12/24/2018 13:29:53 Urge incontinence of urine 54644277 N39.41 continue therapy follow-up 1 month for maintenanc e treatment. She will continue on a monthly basis and see me in 6 months [id number] YOSELIN SCHMID ENT SB [address] [place] [address] 1 12/24/2018 14:31:50 12/24/2018 14:33:21 [id number] LOUISE DESHPANDE MD [facility] [address] [address] 01/21/2019 13:00:55 01/21/2019 13:47:34 Urge incontinence of urine [id number] N39.41 continue therapy follow-up 1 month for maintenanc e treatment. She will continue on a monthly basis and see me in 6 months [id number] SAMIRA Bang MD ORTHOPEDI CS [facility] CL[facility]ED [address] [place] [address] 02/13/2019 07:42:36 02/13/2019 08:31:41 History of total hip arthroplasty 6668489503 06 Z96.252 [id number] LOUISE DESHPANDE MD [facility] [address] [address] 02/18/2019 13:10:49 02/18/2019 14:14:10 Urge incontinence of urine [id number] N39.41 continue therapy follow-up 1 month for maintenanc e treatment. She will continue on a monthly basis and see me in 6 months [id number] MARIAN HICKS MD HEM/ONC SB CLOSED [address] [place] [address] 03/17/2019 09:21:44 03/17/2019 10:53:58 [id number] FANNIE HURD MD [facility] [address] [place] [address] 03/25/2019 13:07:51 03/25/2019 14:07:21 Urge incontinence of urine 36335510 N39.41 [id number] LOUISE DESHPANDE MD [facility] [address] [place] [address] 0 04/22/2019 13:18:09 04/22/2019 13:59:16 Urge incontinence of urine 59883412 N39.41 continue therapy follow-up 1 month for maintenanc e treatment. She will continue on a monthly basis and see me in 6 months [id number] [place] [address] [place] [address] 1 04/29/2019 13:23:08 04/29/2019 17:15:43 [id number] [place] [address] [place] [address] 1 05/08/2019 14:47:25 05/08/2019 17:25:24 Sensorineural hearing loss of bilateral ears 637600998 H90.3 [id number] [place] [address] [place] [address] 05/12/2019 13:54:53 05/12/2019 17:11:04 [id number] BOB YOSELIN FERNANDEZ ENT SB [address] [place] [address] 1 05/26/2019 14:26:58 05/26/2019 17:33:12 [id number] MD [facility] [address] [place] [address] 05/27/2019 12:57:48 05/27/2019 13:24:14 Urge incontinence of urine [id number] N39.41 [id number] [place] [address] [place] [address] 1 06/17/2019 13:26:10 06/17/2019 16:57:31 [id number] MD [facility] [address],[place] [address] 0 06/24/2019 13:11:04 06/24/2019 13:58:27 Urge incontinence of urine 71624090 N39.41 [id number] BOB FERNANDEZ AUD ENT SB [address] [place] [address] 1 07/08/2019 13:34:45 07/08/2019 17:17:15 [id number] MD [facility] [address],[place] [address] 0 07/29/2019 13:00:15 07/29/2019 13:58:53 Urge incontinence of urine 92693682 N39.41 [id number] BOB FERNANDEZ AUD ENT SB [address] [place] [address] 1 07/29/2019 14:25:43 07/29/2019 17:05:46 [id number] MD [facility] [address],[place] [address] 0 08/26/2019 13:19:28 08/26/2019 13:46:40 Urge incontinence of urine [id number] N39.41 [id number] BOB FERNANDEZ AUD ENT SB [address] [place] [address] 1 08/26/2019 15:19:38 08/26/2019 15:52:22 [id number] BOB FERNANDEZ AUD ENT SB [address] [place] [address] 1 09/02/2019 14:19:00 09/02/2019 16:02:40 [id number] LOUISE DESHPANDE MD [facility] [address],[place] [address] 0 09/30/2019 13:11:57 09/30/2019 14:04:35 Urge incontinence of urine 35183735 N39.41 [id number] BOB FERNANDEZ, AUD ENT SB [address] [place] [address] 09/30/2019 14:20:29 09/30/2019 15:34:34 [id number] MD [facility] [address] [place] [address] 0 10/28/2019 13:13:53 10/28/2019 14:10:50 Urge incontinence of urine 61636380 N39.41 [id number] MD [facility] [address],[place] [address] 12/02/2019 13:11:25 12/02/2019 14:12:07 Urge incontinence of urine 87351422 N39.41 [id number] FANNIE HURD MD [facility] [address] [place] [address] 01/28/2020 13:45:36 01/28/2020 14:35:52 Urge incontinence of urine [id number] N39.41 [id number] LOUISE DESHPANDE MD [facility] [address] [address] 02/24/2020 11:34:11 02/24/2020 12:42:00 Urge incontinence of urine 85550042 N39.41 [id number] SAMIRA Bang MD ORTHOPEDI CS [facility] CL[facility]ED [address] [address] 02/25/2020 13:27:22 02/25/2020 15:50:27 History of total hip arthroplasty 5561896893 06 Z96.674 [id number] MARIAN HICKS MD HEM/ONC SB CLOSED [address] [place] [address] 03/15/2020 08:24:14 03/15/2020 10:26:34 [id number] MD [facility] [address],[place] [address] 0 03/30/2020 13:12:02 03/30/2020 14:19:17 Urge incontinence of urine [id number] N39.41 [id number] MD [facility] [address],[place] [address] 0 04/27/2020 14:34:43 04/27/2020 15:22:28 Urge incontinence of urine 95182676 N39.41 [id number] MD [facility] [address],[place] [address] 0 05/25/2020 14:28:01 05/25/2020 14:53:19 Urge incontinence of urine 42934759 N39.41 Urinary tr act infectious disease 33019562 N39.0 if her urine grows significan t bacteria we will place her on appropriat e antibiotic s [id number] BOB FERNANDEZ, AUD ENT SB [address] [place] [address] 06/01/2020 14:56:56 06/01/2020 17:06:01 [id number] MD [facility] [address] [address] 0 06/10/2020 13:08:29 06/10/2020 13:54:55 Neurogenic dysfunction of urinary bladder 556754772 N31.9 P continue PTNM Acute infe ctive cystitis 112998476 N30.00 resolved [id number] MD [facility] [address],[place] [address] 0 06/22/2020 14:23:07 06/22/2020 14:55:34 Urge incontinence of urine 13749406 N39.41 [id number] MD [facility] [address],[place] [address] 0 07/20/2020 13:56:00 07/20/2020 14:57:47 Urge incontinence of urine 44360768 N39.41 [id number] MD [facility] [address] [address] 08/17/2020 11:46:44 08/17/2020 13:21:22 Urge incontinence of urine [id number] N39.41 [id number] BOB FERNANDEZ AUD ENT SB [address] [place] [address] 1 08/23/2020 15:12:17 08/23/2020 17:02:21 [id number] LOUISE DESHPANDE MD [facility] [address] [address] 09/21/2020 13:42:28 09/21/2020 14:47:33 Urge incontinence of urine 63185651 N39.41 [id number] LOUISE DESHPANDE MD [facility] [address],[place] [address] 0 10/19/2020 13:44:52 10/19/2020 14:49:53 Urge incontinence of urine 78856116 N39.41 [id number] BOB FERNANDEZ, AUD ENT SB [address] [place] [address] 1 11/16/2020 10:52:49 11/16/2020 11:59:49 [id number] MD [facility] [address] [address] 11/16/2020 13:36:14 11/16/2020 14:25:33 Urge incontinence of urine [id number] N39.41 [id number] MD [facility] [address] [address] 12/14/2020 14:03:35 12/14/2020 14:58:30 Urge incontinence of urine 98831907 N39.41 [id number] LOUISE DESHPANDE MD [facility] [address] [address] 01/18/2021 14:30:47 01/18/2021 15:34:52 Urge incontinence of urine 89764099 N39.41 [id number] MD [facility] [address] [place] [address] 02/15/2021 13:38:32 02/16/2021 09:13:19 Urge incontinence of urine [id number] N39.41 [id number] ELLE LAZCANO PA-C ORTHOPEDI CS [facility] CLOSED [address] [place] [address] 03/14/2021 12:09:11 03/14/2021 13:17:58 History of total replacement of right hip joint 3121373713 31575 Z96.641 1. Patient is 4 years status post right total hip arthroplas ty. She has been seen in the past with ongoing symptoms of pain during ambulation . X-ray does show well fixed prosthesis without evidence of subsidence or loosening. Patient does believe this is worsening. I do believe is a low probabilit y for infection will get inflammato ry markers at this time. CRP, ESR, d-dimer was ordered. We will order a 3-phase bone scan. Follow-up in 3 weeks for reevaluati on and test results. [id number] MD [facility] [address] [place] [address] 03/15/2021 13:44:24 03/15/2021 14:48:28 Urge incontinence of urine 92854972 N39.41 Urinary tr act infectious disease 92332295 N39.0 if her urine grows significan t bacteria we will place her on appropriat e antibiotic s [id number] [place] [address] [place] [address] 03/15/2021 14:39:32 03/15/2021 14:40:48 [id number] MARIAN HICKS MD HEM/ONC SB CLOSED [address] [place] [address] 03/20/2021 09:38:03 03/20/2021 10:52:49 [id number] SAMIRA Bang MD ORTHOPEDI [address] [address] 04/06/2021 08:16:01 04/06/2021 09:47:49 Pain associated with prosthesis of hip joint [id number] T84.84XD Greater tr ochanteric pain syndrome of right lower limb [id number] M70.61 [id number] LOUISE DESHPANDE MD [facility] [address] [address] 04/12/2021 13:43:54 04/12/2021 15:13:50 Urge incontinence of urine [id number] N39.41 [id number] LOUISE DESHPANDE MD [facility] [address] [address] 05/10/2021 13:34:40 05/10/2021 14:26:46 Urge incontinence of urine [id number] N39.41 [id number] LOUISE DESHPANDE MD [facility] [address] [address] 06/07/2021 13:32:44 06/07/2021 14:19:56 Urge incontinence of urine [id number] N39.41 [id number] BOBKEY FERNANDEZ, AUD ENT SB [address] [place] [address] 06/08/2021 13:49:54 06/08/2021 16:42:15 Sensorineural hearing loss of bilateral ears [id number] H90.3 [id number] LOUISE DESHPANDE [facility] [address] [address] 07/05/2021 13:23:36 07/05/2021 16:36:44 Urge incontinence of urine [id number] N39.41 [id number] LOUISE DESHPANDE MD [facility] [address] [place] [address] 08/02/2021 13:10:35 08/02/2021 16:34:23 Urge incontinence of urine [id number] N39.41 [id number] LOUISE DESHPANDE MD [facility] [address] [place] [address] 08/30/2021 13:47:39 08/30/2021 14:32:27 Urge incontinence of urine [id number] N39.41 Continue monthly therapy and see me one year earlier if necessary [id number] LOUISE DESHPANDE MD [facility] [address] [place] [id number] 09/27/2021 13:15:34 09/27/2021 14:17:35 Urge incontinence of urine [id number] N39.41 Continue monthly therapy and see me one year earlier if necessary Urinary tr act infectious disease [id number] N39.0 if her urine grows significan t bacteria we will place her on appropriat e antibiotic s [id number] BOBKEY FERNANDEZ, AUD ENT SB [address] [place] [address] 10/18/2021 13:56:49 10/18/2021 15:20:56 [id number] LOUISE DESHPANDE MD [facility] [address] [place], [place] [address] 11/01/2021 13:40:19 11/01/2021 14:42:41 Urge incontinence of urine [id number] N39.41 Continue monthly therapy and see me one year earlier if necessary [id number] PREETI GOULD PA-C ORTHOPEDI [facility] CLOSED [address] [address] 11/03/2021 08:57:04 11/03/2021 10:02:09 Pain in right thumb [id number] M79.644 Fracture o f proximal phalanx of finger [id number] S62.511A DOI: 10/26/21 [id number] MARIANO LUCERO JR, OTR/L, CHT PHYSICAL THERAPY / HAND THERAPY [facility] CLOSED [address] [place] [place] [address] 11/03/2021 10:06:54 11/03/2021 13:43:45 Fracture of proximal phalanx of finger [id number] S62.511D [id number] PREETI GOULD PA-C ORTHOPEDI [address] [facility] [address] 11/17/2021 07:54:31 11/17/2021 08:32:03 Fracture of proximal phalanx of finger 769901505 S62.511A DOI: 10/26/21 Radial sty loid tenosynovitis 73177606 M65.4 Osteoarthr osis of the carpometacarpal joint of the thumb 18756715 M18.9 Severe right thumb CMC joint OA [id number] BRENNA IVAN MD [facility] [address] [place] [address] 12/08/2021 09:08:20 12/08/2021 09:51:00 Urge incontinence of urine [id number] N39.41 [id number] PREETI GOULD PA-C ORTHOPEDI [address] [place] [address] 12/15/2021 08:11:38 12/15/2021 08:42:01 Fracture of proximal phalanx of finger 725287652 S62.511A DOI: 10/26/21 Radial sty loid tenosynovitis 11913487 M65.4 Osteoarthr osis of the carpometacarpal joint of the thumb 65271948 M18.9 Severe right thumb CMC joint OA [id number] BRENNA IVAN MD [facility] [address] [place] [address] 01/05/2022 09:22:24 01/05/2022 10:05:21 Urge incontinence of urine [id number] N39.41 [id number] FANNIE HURD MD [facility] [address] [place] [address] 02/02/2022 09:11:22 02/02/2022 10:33:50 Urge incontinence of urine 88372074 N39.41 [id number] MARIAN HICKS MD HEM/ONC SB CLOSED [address] [place] [address] 03/23/2022 09:16:07 03/23/2022 11:00:42 [id number] FANNIE HURD MD [facility] [address] [place] [address] 03/28/2022 11:59:11 03/28/2022 13:05:59 Urge incontinence of urine [id number] N39.41 [id number] PA LASSITER JR, MD [facility] [address] [place] [address] 04/30/2022 08:59:46 04/30/2022 09:43:22 Urge incontinence of urine [id number] N39.41 [id number] BRENNA IVAN MD [facility] [address] [place] [address] 06/12/2022 08:47:25 06/12/2022 12:05:24 Urge incontinence of urine [id number] N39.41 [id number] LOUISE DESHPANDE MD [facility] [address] [address] 07/18/2022 13:13:56 07/23/2022 14:20:24 Urge incontinence of urine 12117781 N39.41 Continue monthly therapy and see me one year earlier if necessary [id number] FANNIE HURD MD [facility] [address] [address] 08/28/2022 15:33:20 08/28/2022 20:56:38 Urge incontinence of urine [id number] N39.41 [id number] BOB FERNANDEZ, AUD ENT [address] [place] [address] 09/10/2022 08:50:21 09/10/2022 11:17:58 [id number] LOUISE DESHPANDE MD [facility] [address],[place] [address] 0 10/10/2022 13:11:43 10/10/2022 14:42:26 Urge incontinence of urine [id number] N39.41 Continue monthly therapy and see me one year earlier if necessary [id number] FANNIE HURD MD [facility] [address],[place] [place] [address] 0 10/24/2022 13:08:36 10/24/2022 13:41:59 Urge incontinence of urine [id number] N39.41 [id number] FANNIE HURD MD [facility] [address],[place] [place] [address] 0 11/07/2022 13:45:16 11/07/2022 15:55:21 Urge incontinence of urine [id number] N39.41 [id number] FANNIE HURD MD [facility] [address],[place] [place] [address] 0 11/13/2022 10:00:32 11/13/2022 10:41:26 Urge incontinence of urine [id number] N39.41 [id number] BRENNA IVAN MD [facility] [address],[place] [address] 0 11/28/2022 10:43:39 11/28/2022 11:29:42 Urge incontinence of urine 34992377 N39.41 [id number] LOUISE DESHPANDE MD [facility] [address],[place] [address] 0 01/02/2023 13:50:01 01/02/2023 16:35:22 Urge incontinence of urine [id number] N39.41 Continue monthly therapy and see me one year earlier if necessary [id number] ELLE LAZCANO, BRIAN ORTHOPEDI CS [facility] CLOSED [address] [address] 01/28/2023 14:09:24 01/28/2023 15:05:34 History of right hip replacement [id number] 045816 Z96.641 Assessment : 7 years status post right hip arthroplas ty with chronic pain with increased trochanter ic discomfort Plan: Long discussion today with Ms. Holly. Patient is having ongoing pain. Previous work-ups have been virtually negative with normal inflammato ry markers and bone scan. Still has severe groin pain as well as trochanter ic pain. Will order a [place] MRI of the right hip for further investigat ion. Hopefully this will allow us to see what is causing her discomfort . We will have patient follow-up after MRI. Call with any concerns. Greater tr ochanteric pain syndrome of right lower limb [id number] M70.61 [id number] SAMIRA Bang MD ORTHOPEDI CS [facility] CLOSED [address] [place] [address] 03/19/2023 13:42:47 03/21/2023 12:14:15 Greater trochanteric pain syndrome 8745104 M70.60 Overall, physical exam and radiograph s are within normal limits. Symptoms are consistent with greater trochanter ic pain syndrome, which has been a chronic problem for her on the right side. Today, I would recommend a trochanter ic injection, as well as physical therapy to focus on IT band stretching , and abductor strengthen ing. We will arrange for follow-up in 3 months, to review any improvemen t. No considerat ion for surgery at this juncture. History of total hip arthroplasty 1098134291 06 Z96.649 Radiograph s are within normal limits. No additional investigat ions necessary for the arthroplas ty itself. Pain of le ft knee joint 2999754133 99217 M25.562 Alyssia is also reporting some left knee pain. We have not investigat ed this in the past. I have suggested that at her 3-month follow-up, we obtain some dedicated x-rays, and discuss treatment options. Clinical suspicion is valgus arthritis in the left knee. [id number] MARIAN HICKS MD HEM/ONC SB CLOSED [address] [place] [address] 03/29/2023 09:13:58 03/29/2023 10:18:49 [id number] LOUISE DESHPANDE MD [facility] [address] [address] 04/17/2023 13:04:51 04/17/2023 14:19:37 Urge incontinence of urine [id number] N39.41 Continue monthly therapy and see me one year earlier if necessary [id number] FANNIE HURD MD [facility] [address] [place] [address] 04/24/2023 09:18:31 04/24/2023 10:05:40 Urge incontinence of urine [id number] N39.41 [id number] BRENNA IVAN MD [facility] [address] [address] 05/01/2023 09:00:49 05/01/2023 10:11:59 Urge incontinence of urine [id number] N39.41 [id number] BOB FERNANDEZ, AUD [address] [place] [address] 05/08/2023 10:34:38 05/08/2023 11:47:04 [id number] FANNIE HURD MD [facility] [address] [address] 05/08/2023 09:10:41 05/08/2023 10:06:58 Urge incontinence of urine [id number] N39.41 [id number] BRENNA IVAN MD [facility] [address] [address] 05/15/2023 09:20:19 05/15/2023 10:56:55 Urge incontinence of urine [id number] N39.41 [id number] FANNIE HURD MD [facility] [address] [address] 05/22/2023 09:10:31 05/22/2023 10:01:51 Urge incontinence of urine [id number] N39.41 [id number] SAMIRA Bang MD ORTHOPEDI CS [facility] CLOSED [address] [address] 06/18/2023 08:31:43 06/18/2023 09:46:07 Pain of left knee joint 7365059012 91730 M25.562 Symptoms resolved, mild degenerati ve changes on x-ray. Reviewed conservati ve treatment options, including steroid injection, which she politely declined today. We can reconsider this at any point. History of total hip arthroplasty 8340797132 06 Z96.641 Z96.642 Greater tr ochanteric pain syndrome 6686913 M70.60 Overall, physical exam and radiograph s are within normal limits. Symptoms are consistent with greater trochanter ic pain syndrome, which has been a chronic problem for her on the right side. Good result from last trochanter ic injection. Repeat injection today. Continue PT, or home exercise program. Follow-up in 4 months, for repeat trochanter ic injection. [id number] MD [facility] [address] [address] 06/05/2023 09:26:25 06/05/2023 10:47:16 Urge incontinence of urine [id number] N39.41 [id number] FANNIE HURD MD [facility] [address] [address] 06/12/2023 09:10:09 06/12/2023 10:17:05 Urge incontinence of urine [id number] N39.41 [id number] MD [facility] [address] [address] 06/19/2023 09:38:28 06/19/2023 10:31:51 Urge incontinence of urine [id number] N39.41 [id number] FANNIE HURD MD [facility] [address],[place] [place] [address] 06/26/2023 09:31:44 06/26/2023 10:31:50 Urge incontinence of urine [id number] N39.41 [id number] BOB FERNANDEZ, [address] [place] [address] 06/26/2023 13:08:35 06/26/2023 15:38:41 Sensorineural hearing loss of bilateral ears 265298174 H90.3 [id number] BRENNA IVAN MD [facility] [address] [address] 07/03/2023 09:42:02 07/08/2023 07:19:00 Urge incontinence of urine [id number] N39.41 [id number] FANNIE HURD MD [facility] [address] [address] 07/10/2023 10:27:04 07/10/2023 11:21:48 Urge incontinence of urine [id number] N39.41 [id number] BRENNA IVAN MD [facility] [address] [address] 07/17/2023 09:43:32 07/19/2023 09:24:26 Urge incontinence of urine [id number] N39.41 [id number] JIGAR WOODALL PA-C ORTHOPEDI CS [facility] CLOSED [address] [place] [address] 10/15/2023 09:31:26 10/15/2023 10:53:20 Greater trochanteric pain syndrome 3641964 M70.60 Mrs. Holly is an extremely pleasant 73 yo female here today for ongoing right hip bursitis pain and left knee pain. She states her last injection only lasted a few weeks . Notable history of Dercum's disease, with painful lipomas/ad ipose deposits scattered throughout her lower joints. Overall, physical exam and radiograph s are within normal limits. Symptoms are consistent with greater trochanter ic pain syndrome and IT band tendonitis , which has been a chronic problem for her on the right side and PF OA. She had an adequate result from her last troch injection, however I think limited due to coexisting IT band tendinitis . Repeat injection today. Will restart PT to help with gait training and IT band tendonitis . Follow-up in 3-4 months, for repeat trochanter ic injection and knee injection depending on how she responds. Pain of le ft knee joint 0499120136 75598 M25.562 ASSESSMENT : DJD LEFT knee PLAN:We discussed conservati ve and surgical treatment options for knee arthritis. We discussed the importance of weight loss, and low-impact aerobic activity. We discussed judicious use of NSAIDs, if possible, or Tylenol. We discussed corticoste roid injections and viscosuppl ementation . We discussed bracing, physical therapy, activity modificati on, and use of assistive ambulatory devices. Plan today is for steroid injection Follow up 3 months History of total hip arthroplasty 3763827783 06 Z96.641 Z96.642 Iliotibial band friction syndrome of right knee 0966784916 77521 M76.31 Antalgic gait 90659408 R 26.89 [id number] AARTI FARRAR PA-C NEUROSURG [facility] CLOSED [address] [place] [address] 11/19/2023 08:28:21 11/20/2023 05:31:38 Cervical radiculopathy 31267855 M54.12 Lumbar radiculopathy 128 941087 M54.16 [id number] BINTA VALLE MD PAIN MEDICINE CLOSED [address] [place] [address] 11/27/2023 09:19:42 11/27/2023 16:20:04 Degeneration of lumbar intervertebral disc 16914706 M51.36 Lumbar radiculopathy 128 079139 M54.16 Spinal ra nosis of lumbar region 40555646 M48.062 [id number] BINTA VALLE MD [facility] PL[address] OF SERVICE PROFESSIO NAL CHARGES [address] [facility], [address] [place] [address] 12/10/2023 12:28:19 12/10/2023 13:47:06 Lumbar radiculopathy 679598426 M54.16 [id number] AARTI FARRAR PA-C NE[facility]OSURG [facility] CLOSED [address] [place] [address] 12/31/2023 09:45:27 01/01/2024 04:28:47 Unsteady when walking 10114915 R26.89 Lumbar radiculopathy 128 361347 M54.16 Neck pain 56461801 M54.2 [id number] JIGAR WOODALL PA-C ORTHOPEDI [facility] CLOSED [address] [address] 01/14/2024 09:27:17 01/14/2024 10:41:23 Trochanteric bursitis of right hip 1310967901 82036 M70.61 ASSESSMENT : Trochanter ic bursitis RIGHT hip PLAN:We discussed the etiology and treatment of troch bursitis, which is largely conservati ve in nature. We discussed that trochanter ic bursitis, often called troch bursitis or hip bursitis, is the painful inflammati on of the bursa located just superficia l to the greater trochanter of the femur. We discussed activity modificati on, a home exercise program, topical gels/cream s, NSAIDs, cortisone injections and formal physical therapy. We elected to proceed with: continue formal PT, home exercises Follow up PRN Home exercise program provided for patient. Osteoarthr itis of left knee joint [id number] 98018 M17.12 Defers CSI for now, just had IM steroid injection for her spine and it has been helping her knee. She will call when ready for next injectionC ontinue celebrex as needed.- Risks of NSAIDs discussed including GI upset, GI bleeding, renal and hepatic risks and the risks of cardiovasc ular disease and stroke. Warned patient not to take with other NSAIDs including OTC NSAIDs. Tylenol ok. Continue to follow with PCP for routine labwork to ensure stable kidney/hep atic function. Antalgic gait 15199053 R 26.89 Continue to work in PT Degenerati on of lumbar intervertebral disc 40280088 M51.36 Having lumbar fusion with Dr. Benton in future, working in PT first. [id number] ALICIA COLORADO PA-C PAIN MEDICINE CLOSED [address] [place] [address] 01/14/2024 07:30:23 01/14/2024 16:02:52 Lumbar radiculopathy 700695284 M54.16 Degenerati on of lumbar intervertebral disc 87754984 M51.36 Spinal ra nosis of lumbar region 91036579 M48.062 Cervical spondylosis 387 275642 M47.812 [id number] BINTA VALLE MD [facility] PL[address] OF SERVICE PROFESSIO NAL CHARGES [address] [facility], [address] [place] [address] 02/04/2024 15:00:59 02/04/2024 15:53:12 Cervical radiculopathy 04748375 M54.12 [id number] ALICIA COLORADO PA-C PAIN MEDICINE CLOSED [address] [place] [address] 1 03/11/2024 08:39:36 03/11/2024 16:08:10 Cervical spondylosis 629135476 M47.812 Lumbar radiculopathy 128 426562 M54.16 Degenerati on of lumbar intervertebral disc 72064220 M51.36 Spinal ra nosis of lumbar region 29529963 M48.062 [id number] YOSHI ARCEO MD NEUROLOGY SB CLOSED [address] [place] [address] 03/18/2024 10:19:16 03/18/2024 13:24:21 Spinal stenosis of lumbar region 01936257 M48.061 Impairment of balance 38 1938534 R26.89 [id number] DERRICK BEE, PRECISION DEVICES INSPECTOR/TESTER NEUROSURG [facility] CLOSED [address] [facility] [place] [address] 04/02/2024 09:38:16 04/03/2024 04:26:06 Unsteady when walking 18160941 R26.89 Lumbar radiculopathy 128 326284 M54.16 Neck pain 56852772 M54.2 [id number] LOUISE DESHPANDE MD [facility] [address] [place] [address] 04/08/2024 12:50:15 04/08/2024 14:13:03 Urge incontinence of urine 18566857 N39.41 As above follow-up 1 year [id number] JIGAR WOODALL PA-C ORTHOPEDI CS [facility] CLOSED [address] [place] [address] 05/27/2024 11:07:28 05/27/2024 12:14:39 Derangement of left knee 1474180455 3540256 M23.92 Assessment : possible derangemen t of left knee vs referred pain from low back vs pain from her adiposis dolorosa Plan: Extensive conversati on regarding options of care. She defers CSIs, does not want to take any more medication s, recently stopped her celebrex. We discussed her radiograph s. We discussed possible gel injections , topicals gels/cream s, formal PT for her knee, genicular nerve blocks. Patient did seem a bit resistant to most treatment solution options I provided. We settled on proceeding with MRI and calling her back with next steps. Based on her radiograph s she does not appear to be anywhere near a TKA unless the MRI shows otherwise. If mild mod OA we can trial a gel injection, she seemed agreeable to this option. She may be willing to do more formal PT for her knee, but wants to see what the MRI shows first. [id number] JIGAR WOODALL PA-C ORTHOPEDI CS [facility] CLOSED [address] [place] [address] 07/27/2024 09:11:33 07/27/2024 09:41:07 Derangement of left knee 2451216696 5361746 M23.92 Assessment : possible derangemen t of left knee vs referred pain from low back vs pain from her adiposis dolorosa Plan: Extensive conversati on regarding options of care. Reviewed MRI and discussed options of care-- She defers CSIs, does not want to take any more medication s, recently stopped her celebrex due to hair loss. We discussed her radiograph s. We discussed possible gel injections , topicals gels/cream s, formal PT for her knee, genicular nerve blocks, genicular arterial embolizati on. Patient did seem a bit resistant to most treatment solution options I provided. Based on her radiograph s and MRI, she does not appear to be anywhere near a TKA. She is noticing marginal improvemen ts with PT and is going to continue this and would like to read up on GAE with Dr. Chacorta Patel, provided handout of informatio n. [id number] MD [facility] [address] [place] [address] 09/02/2024 12:05:26 09/04/2024 04:38:33 Urge incontinence of urine 49000637 N39.41 As above follow-up 1 year Urolithiasis 21924452 N2 0.[address] scan findings. [id number] MD [facility] [address] [place] [address] 10/07/2024 12:42:33 10/07/2024 13:29:53 Urge incontinence of urine 51622367 N39.41 As above follow-up with me in 6 months, if the generic Myrbetriq is not covered she will request additional samples when necessary [id number] YOSELIN SCHMID ENT [address] [place] [address] 12/02/2024 13:55:48 12/02/2024 15:43:15 Sensorineural hearing loss of bilateral ears 471909022 H90.3 [id number] YOSELIN SCHMID ENT [address] [place] [address] 12/09/2024 14:09:27 12/09/2024 16:40:08 [id number] YOSELIN SILVA ENT [address] [place] [address] 12/31/2024 08:22:27 12/31/2024 12:09:11 [id number] GILDA ALCALA AUD [place] [facility] [address] [place] [address] 02/03/2025 10:41:42 02/04/2025 15:21:21 Health Concerns Section Related Observation LastModified by Organization Detai ls LastModified Time None Recorded Concern Status LastModified by Organization Details LastModified Time None Recorded Advance Directives Directive None Recorded Payers Insurance Date Sequence Insurance Name Policy Number Policy Lindsay Covered Member ID Lindsay Member ID Guarantor Name 12/02/2024 2 [employer] (MEDICARE SUPPLEMENT) Alyssia Traore Holly [id number] Alyssia Traore [employer] 01/31/2025 1 [place] Alyssia Holly [id number] Alyssia Holly 12/10/2023 2 [employer] Alyssia Traore Holly [id number] Alyssia Traore [employer] 08/19/2019 PAYMENT PLAN Alyssia Traore Holly 12/10/2023 2 [employer] (MEDICARE SUPPLEMENT) Alyssia Traore Holly [id number] Alyssia Holly 12/02/2024 2 [facility] (MEDICARE SUPPLEMENT) Alyssia Traore [employer] [id number] Alyssia Traore [employer] 01/31/2025 [employer] - D[employer]POS ASSIGNED (MEDICARE DME REGION B) Alyssia Traore Holly [id number] Alyssia Traore [employer] Notes Date Note Type Note Provider Name and Address Organization Details Recorded Time 10/07/2024 text/html Patient is here in follow-up of urinary frequency and urgency. She also has history of urolithiasis and last visit arrange for CT scan to rule out any ureteral stones as she was having some back pain. Overall she feels much better. Her urine specimen today is unremarkable. Her CT scan showed no renal or ureteral stones. She had no obstruction. She does have scoliosis with significant kyphosis. She currently is using the Gemtesa. Her insurance covers it very poorly. I suggest we send a prescription for generic Myrbetriq 50 mg and see if it is covered. Typically she has nocturia x 1 and occasionally urgency incontinence LOUISE DESHPANDE MD [address] [place] [address], [phone], [place] [facility] 10/07/2024 13:29:05 12/02/2024 text/html Hearing Evaluati on - AdultReported bypatient.Onset/Bryan ing:long standing Location:bilateral Quality:decreased Severity:difficulty understanding speech with hearing aid in place(unless fingers are in the ears);requires TV, radio at high volume Context:no history of occupational noise exposure; no history of recreational noise exposure; no history of heart disease; no history of kidney disease; no history of chemotherapy; no history of stroke; no history of diabetes;family history of hearing loss(mother);previo us hearing evaluation(2022 moderate flat SNHL);Wears hearing aid good outcome(increased trouble hearing. 2019 [employer] [facility]) Associated Symptoms:tinnitus bilateral worse on duration constant onset >6years(masked w/ HAs) BOB FERNANDEZ, AUD [address] [place], [address], [facility] 12/02/2024 15:43:03 12/09/2024 text/html Sending HAs in f or OW repair >5 yrs old. BOB FERNANDEZ, AUD [address] [place], [address], [facility] 12/09/2024 16:39:49 OBGyn Episode No OBEpisode recorded.
--- NOTE | 2025-03-17 11:00 | ECG_ITS ---
APPROVED REPORT Exam: Resting ECG HR:70 bpm ECG Measurements Heart Rate 70 AXES RI 192 P 55 QRSd 102 QRS 44 QT 394 T 38 QTc 415 Conclusion SINUS RHYTHM LOW QRS VOLTAGE IN PRECORDIAL LEADS [QRS DEFLECTION < 1.0 mV IN CHEST LEADS] POSSIBLE ANTERIOR MYOCARDIAL INFARCTION , PROBABLY OLD [30 ms Q WAVE IN V3/V4, OR R < 0.2 mV IN V4] BORDERLINE ECG UNCONFIRMED REPORT Electronically signed by : Fausto Keane MD 03/20/2025 07:52:37
[2025-03-17 11:13] LABS: Basophils # 0.1 K/mm3 (0-0.2); Basophils % 0.8 % (0.1-2.0); Eosinophils # 0.7 Kmm3 (0.0-0.4); Hematocrit 36.7 % (37.0-47.0); Hemoglobin 12.1 g/dL (12.2-16.2); Immature Granulocytes # 0.02 10^3uL; Immature Granulocytes % 0.2 %; Lymphocytes # 2.5 K/mm3 (0.7-4.5); Lymphocytes % 23.8 % (10-50); Mean Corpuscular Hemoglobin 30.5 pg (27.0-31.2); Mean Corpuscular Volume 92.4 fl (81-99); Mean Platelet Volume 11.3 fl (7.4-10.4); Monocytes # 0.6 K/mm3 (0.1-1.0); Monocytes % 5.8 % (1.7-9.3); Neutrophils # 6.6 K/mm3 (1.8-7.8); Neutrophils % 62.4 % (37.0-80.0); Nucleated Red Blood Cells # 0 10^3/uL; Nucleated Red Blood Cells % 0 %; Platelet Count 303 K/mm3 (142-424); Red Blood Count 3.97 M/mm3 (4.20-5.40); Red Cell Distribution Width-SD 44.4 fL; White Blood Count 10.6 K/mm3 (4.8-10.8)
[2025-03-17 11:25] LABS: Albumin Level 4.2 g/dl (3.5-5.0); Chloride 101 mmol/L (98-107); Potassium 3.9 mmoL/L (3.5-5.1); Sodium 141 mmol/L (136-145)
[2025-03-17 11:27] LABS: Blood Urea Nitrogen 18 mg/dl (7-17); Estimated Glomerular Filt Rate 70 ml/min (>60); GFR (African American) 85 ML/MIN (>60)
[2025-03-17 11:28] LABS: Alanine Aminotransferase 29 U/L (12-78); Albumin/Globulin Ratio 1.4 (1.1-1.8); Alkaline Phosphatase 107 U/L (38-126); Aspartate Amino Transferase 33 U/L (14-36); Bilirubin,Total 0.3 mg/dl (0.2-1.3); Calcium 9.5 mg/dl (8.4-10.2); Globulin 2.9 g/dL (1.3-3.2); Glucose 101 mg/dl (74-100); Total Protein,Serum 7.1 g/dl (6.3-8.2)
[2025-03-17 15:13] LABS: Anion Gap 14.9 mEq/L (5-15); Carbon Dioxide 29 mmol/L (22.0-30.0)
== END 2025-03-17 23:59 | disposition home or self-care (01) ==
LOC: PREOP 10:01
PROVIDERS: PCP Family Medicine; Visit Provider Surgery
DX: Z01.810 Encounter for preprocedural cardiovascular examination (principal); Z01.812 Encounter for preprocedural laboratory examination; R94.31 Abnormal electrocardiogram [ECG] [EKG]; K80.20 Calculus of gallbladder without cholecystitis without obstruction
CPT/HCPCS: 80053; 85025; 93005

== ENCOUNTER 2025-03-25 06:01 | Day surgery (SDC) | payer MEDICARE, OTHER, SELFPAY ==
[2025-03-17 13:54] VITALS: BMI 24.8
[2025-03-25] VITALS (11 sets, daily range): BP systolic 132–170; BP diastolic 68–88; PULSE 73–82; RESP 16–19; TEMP 36.3–43; O2SAT 96–98
[2025-03-25] MEDS: 0.9 % SODIUM CHLORIDE 1000ML 1,000 ML 25 ML IV (07:06)
--- NOTE | 2025-03-25 07:28 | P.PNANES_ITS ---
[facility] Disclaimer: The information contained in this section may have been updated after the patient was seen, as this information can be updated by other users. Medical History Impacted cerumen of right ear History of deviated nasal septum Cancer Urinary tract infection Kidney stone Hyperlipidemia Hypertension History of colon cancer Cataract Hearing loss, bilateral Tinnitus, bilateral Bilateral impacted cerumen Coronary artery calcification seen on CAT scan Former smoker Palpitations Diastolic dysfunction Abnormal echocardiogram Surgical History History of cataract surgery History of eye surgery History of spinal fusion Hx of tonsillectomy H/O colonoscopy H/O hemicolectomy S/P hip replacement Family History Other Family history of cancer Family history of coronary artery disease Social History (Updated 03/25/25 @ 06:55 by Jocelyne Hu RN) Smoking Status: Former smoker tobacco type: cigarettes packs per day: 1 alcohol intake: never counseling provided: provider counseling substance use type: denies use current occupational status: employed Travel in the last 8 weeks?: None household members: none housing: house current occupation: [employer] current occupational exposures/hazards: No caffeine: Yes Have you lived/traveled outside US in past 30 days?: No Contact w/someone who lives/traveled outside US past 30 days?: No Exposure to someone with infectious disease in past 14 days?: No Do you have a fever (greater than 100.4 F or 38 C)?: No Have you tested positive for COVID-19?: No Exposed to someone with COVID-19 in past 14 days?: No Do you have a sore throat?: No Do you have a cough?: No Do you have any weakness?: No Are you experiencing any nausea/vomitting?: No Do you have any diarrhea?: No Are you experiencing any unusual bleeding?: No Do you have any muscle aches/pain?: No Do you have any abdominal pain?: No Are you experiencing loss of taste or smell?: No [facility] Anesthesia Checklist Patient Identification Patient Identification: Arm Band Structural Data Admitted From: Home Planned Operative Procedure/s: Laparoscopic Cholecystectomy Consent for Planned Operative Procedure(s) Verified: Yes Verified Documents: Surgical Consent and History and Physical NPO Status Verified Time NPO: 00:00 Additional verifications Anesthesia Reactions: No Hx Blood Transfusions: No Blood Transfusion Reaction: No Airway Assessment Mallampati Score:: Class II C-Spine Mobility Assessed: Yes TMJ Mobility Assessed: Yes Dentition: Edentulous Neurological Assessment Level of Consciousness: Awake, Alert and Appropriate Anesthesia Plan Anesthesia Risk discussed: Yes Anesthesia Plan: Verified ASA Class: II Anesthesia Type: General
--- NOTE | 2025-03-25 07:28 | EXP.OP.NOTE ---
Date of procedure: 03/25/25 Pre-op Diagnosis:: Symptomatic cholelithiasis Post-op Diagnosis:: Chronic calculus cholecystitis Procedure performed:: Laparoscopic cholecystectomy Surgeon:: Humberto Frazier MD Anesthesia: GETA Estimated blood loss (mL): 15 Operative findings:: Dense anterior abdominal adhesions status post prior laparotomy Profound pamela-cholecystic fat stranding with dense adhesions to the omentum, colon, small bowel, and stomach Massive gallbladder distention Dense sludge/stones Infundibular thickening Operative note:: After informed consent was obtained, the patient was taken to the operating room and placed in the supine position. General anesthesia was induced and the abdomen was prepped and draped in a sterile fashion. A stab incision was made in the left upper quadrant. A Veress needle was placed in position. The abdomen was insufflated. A 5 mm trocar was placed along the left flank to facilitate visualization of suspected adhesions. Dense adhesions along the anterior abdominal wall were confirmed. A supraumbilical trocar was placed in position after infiltration with local anesthetic. The trocar was placed to the left of midline to avoid adhesions. A combination of blunt dissection and harmonic robbin were then utilized to carefully take down the adhesions. No obvious injury to small bowel or colon was noted. No obvious bleeding noted. The 5 mm trocar that was in the left flank was then carefully removed. The trocar was then placed in the lateral right upper quadrant. An additional right upper quadrant 5 mm trocar was also placed. 812 mm trocar was placed in the subxiphoid position. The gallbladder which was profoundly distended and densely adhesed to surrounding tissue was elevated up and over the liver margin to the degree possible. Careful blunt dissection was utilized to free the gallbladder from adhesions to the omentum, colon, small bowel, and stomach. The tissue around the cystic duct was then carefully dissected. 3 clips were placed proximally and the duct was transected with harmonic robbin. Harmonic robbin were then utilized to dissect the gallbladder away from the liver margin with careful attention to the control of the cystic artery. The gallbladder was placed in a retrieval bag and removed through the subxiphoid trocar site. The right upper quadrant was thoroughly irrigated. No active bleeding or bile leak was noted. Fascia at the subxiphoid trocar site was reapproximated utilizing the NeoClose device. The remaining trocars were removed. All wounds were irrigated and skin was closed with 4-0 Monocryl in an interrupted mattress fashion to facilitate hemostasis. Dressings were applied. The patient's anesthetic agents were reversed and extubation was completed prior to transfer to recovery in stable condition. Condition: stable Disposition: PACU Specimens:: Gallbladder Complications:: No immediate
[2025-03-25] MEDS: LIDOCAINE 1% 20ML MDV 20 ML (07:58)
[2025-03-25] MEDS: CEFAZOLIN 2GM VIAL 2 GM (08:00)
--- NOTE | 2025-03-25 09:09 | EXP.ANES.I ---
[facility] Anesthesia Record Part I Anesthesia Record I Intake, IV Amount: 1,200 Hydration: Adequate Estimated blood loss (mL): 10 Urine output (mL): 0 Blood Products used (#): none Blood Pressure: 145/68 SaO2: 97 Pulse Rate: 81 Airway Patency: Patent Respiratory Rate: 16 Temperature: 97.3 F Patient is:: Drowsy and Stable Stable to PACU at:: 09:05
[2025-03-25] MEDS: MORPHINE 2MG/ML SYRINGE 2 MG IV (09:18)
--- NOTE | 2025-03-25 10:14 | P.PNANES_ITS ---
[facility] Anesthesia Record Part II Anesthesia Record Part II Discharge Time: 09:35 Destination: Surgical Day Care (OP Surgery) PACU nurse assessment reviewed?: Yes Patient Condition:: Good Anesthesia Complications:: None Swallowing reflex intact?: Yes Airway Patency: Patent Cyanosis?: No Blood Pressure: 137/83 SaO2: 96 Respiratory Rate: 16 Pulse Rate: 80 Temperature: 97.5 F Mental Status: Alert & Oriented Pain level:: 3 Nausea and/or vomitting:: None Intake, IV Amount: 0 Hydration: Adequate
--- NOTE | 2025-04-01 21:37 | EXP.ANES.I ---
[facility] Anesthesia Record Part I Anesthesia Record I Intake, IV Amount: 1,600 Hydration: Adequate Estimated blood loss (mL): 50 Urine output (mL): 450 Blood Products used (#): none Blood Pressure: 143/86 SaO2: 94 Pulse Rate: 86 Airway Patency: Patent Respiratory Rate: 16 Temperature: 99 F Patient is:: Drowsy and Stable Stable to PACU at:: 21:30
[2025-04-01 21:38] VITALS: BP 143/86; PULSE 86; RESP 16; TEMP 37.2; O2SAT 94
== END 2025-03-25 10:06 | disposition home or self-care (01) ==
PROVIDERS: PCP Family Medicine; Visit Provider Surgery
PROC: 0FT44ZZ Resection of Gallbladder, Percutaneous Endoscopic Approach (ICD-10-PCS; CPT 47562; principal; 2025-03-25 07:30)
DX: K80.10 Calculus of gallbladder with chronic cholecystitis without obstruction (principal); H91.93 Unspecified hearing loss, bilateral; I11.9 Hypertensive heart disease without heart failure; E78.5 Hyperlipidemia, unspecified; Z91.09 Other allergy status, other than to drugs and biological substances; Z79.82 Long term (current) use of aspirin; Z79.899 Other long term (current) drug therapy; Z85.038 Personal history of other malignant neoplasm of large intestine; Z87.891 Personal history of nicotine dependence; Z90.49 Acquired absence of other specified parts of digestive tract; Z79.1 Long term (current) use of non-steroidal anti-inflammatories (NSAID)
CPT/HCPCS: 47562; 96374; J0690; J1100; J2003; J2270; J2405; J2704; J3010; J7030

== ENCOUNTER 2025-03-31 15:12 | Outpatient (CLI) | payer MEDICARE, OTHER, SELFPAY ==
--- OUTSIDE RECORDS SUMMARY | 2025-02-01 11:00 | XMS_ITS ---
Author Organization [facility] Address [address] [facility] [address] [place] [phone] Care Team Providers Care Hoseman Name Role Phone Kathryn Angeles Primary Care Provider Allergies Allergen (clinical drug ingredient) Drug/Non Drug Allergy documented on EMR Reaction Allergy Type Onset Date Status nickel HUGO (uncoded) Unknown Allergy Act tmaar Polypropylene glycol POLYPROPYLENE GLYCO L (uncoded) Unknown [...] day; Duration: 30 day(s) Active Vital Signs Blood pressure systolic 130 mm Hg 02/02/20 25 Blood pressure diastolic 62 mm Hg 025 Heart Rate 66 /min 02/01/2025 Height 66 in 02/01/2025 Weight 156.2 lbs 02/01/2025 BMI 25.21 kg/m2 02/01/2025 Encounters Encounter Location Date Provider Diagnosis [facility] [address] [facility] [address] [facility] [address] [place] [phone] 02/01/2025 Kathryn Angeles Symptomatic cholelithiasis K80.20 Assessments Encounter Date Diagnosis (ICD Code) Assessment Notes Treatment Notes Treatment Clinical Notes Section Notes 02/01/2025 Symptomatic cholelithiasis (ICD-10 - K80.20) CONT RX. AWAIT CONSULTATION Plan Of Treatment Treatment Notes Assessment Notes Symptomatic cholelithiasis CONT RX. AWAI T CONSULTATION Next Appt Details Follow Up: 2 Months, Reason: Provider Name:Kathryn Pennington er, 05/31/2025 04:00:00 PM, 12[address] [facility] 36 [facility], [address], [place], [phone], Progress Notes * SAVANNAH JACOBOB:[birth year] (74 yo F)Acc No.[id number]:02/01/2025 Progress Notes Patient: BAMBI ROCEH Provider: Kathryn Angeles M.D. :1950 A ge:74 Y S ex:Female Date:02/01/2025 Address:[address] [place] [address], [id number] Subjective: * Chief Complaints: * [...] Diagno stic Procedure: k idney stone 02/2011, [facility] ER-fall 06/06. * Family History: F ather: . M other: . 1 sister(s) . . * Social History: C URRENT TOBACCO USE S moking Status: Patient does NOT smoke, Second hand smoke exposure: No. H ome smoke detector use: yes. Marital Status: Single, spouse is . Occupation: Works at [employer]. Past smoking status: no, 2003, quit smoking. Occup. exposure: She saw the Beatles twice! She saw Laith Mukesh! Also Alissa Robert and Curtis Briceno! Her favorite concert was [employer].. * Medications: T dionisio Dutasteride 0.5 MG [...] * Images: Billing Information: * Visit Code: 85823 Office Visit, Est Pt., Level 3. * Procedure Codes: G2211 Complex e/m visit add on. * Electronic signature of Kathryn Angeles MD on 03/31/2025 at 03:15 PM EDT Sign off status: Pending * Provider: Kathryn Angeles M.D. Date: 0 02/01/2025 Generated for Kasey ovalles/Ghanshyam/Naseemitting on: 0 03/31/2025 03:15 PM EDT History and Physical Notes * [...]
--- OUTSIDE RECORDS SUMMARY | 2025-03-31 15:14 | XMS_ITS | Encounter Summary ---
Author Organization [facility] Address [address] [place] [address] Care Team Providers Care Plugman Name Role Phone Nate Mills MD Primary Care Provider [phone] Efrain Angeles MD Primary Care Provider [phone] Encounter Details Date Type Department Care Team (Late st Contact Info) Description 03/29/2023 Orders Only [facility] at [facility] [address] [place] [address] Ebony Albrecht MD [address] [address] Social History Tobacco Use Types [...] Care Team (Late st Contact Info) Description 04/26/2025 10:30 AM EDT Office Visit [facility] at [facility] [address] [place] [address] 04/26/2025 11:30 AM EDT Office Visit [facility] at [facility] [place] [phone] Ebony Albrecht MD [address] [facility] [address] [place] [address] documented as of this encounter Procedures Procedure Name Priority Date/Time Associated Diagnosis Comments CEA, SERUM Routine 03/29/2023 9:07 AM EDT documented in this encounter Results * CEA, Serum (03/29/2023 9:07 AM EDT) External Carcinoembryonic Antigen 4.6 0.0 - 4.7 ng/mL 03/29/2023 9:59 AM EDT [facility] Comment: This test was performed using the Abdelrahman Awilda E801 electrochemiluminescent method. Values obtained from different assay methods cannot be used interchangeably. . 03/29/2023 9:07 AM EDT 03/29/2023 9:22 AM EDT us Ebony Albrecht MD LAB BLOOD ORDERABLES Final Re sult [facility] [address] [place] [address], documented in this encounter Visit Diagnoses Not on filedocumented in this encounter Care Teams Plugman Relationship Specialty Start Date End Date Nate Mills MD [address]10 [facility] [address] [place] [address] PCP - General 09/23/20 04/02/24 Efrain Angeles MD 1210 [facility] [address] [facility] [address] [place] [address] PCP - General 04/03/24 documented as of this encounter
--- OUTSIDE RECORDS SUMMARY | 2025-03-31 15:14 | XMS_ITS | Encounter Summary ---
Author Organization [facility] Address [address] [place] [address] Care Team Providers Care Art Therapy Specialist Name Role Phone Nate Mills MD Primary Care Provider [phone] Efrain Angeles MD Primary Care Provider [phone] Encounter Details Date Type Department Care Team (Late st Contact Info) Description 03/29/2023 Orders Only [facility] [address] [place] [address] Ebony Albrecht MD [address] [address] Social History Tobacco Use Types [...] Description 04/26/2025 10:30 AM EDT Office Visit [facility] [address] [place] [phone] 04/26/2025 11:30 AM EDT Office Visit [facility] [address] [place] [place] [address] Ebony Albrecht MD [address] [phone] documented as of this encounter Procedures Procedure Name Priority Date/Time Associated Diagnosis Comments COMPREHENSIVE METABOLIC PANEL, PLASMA Routine 03/29/2023 9:07 AM EDT documented in this encounter Results * (ABNORMAL) Comprehensive Metabolic Panel, Plasma (03/29/2023 9:07 AM EDT) External Glucose 108(H) 74 - 100 mg/dL 03/29/2023 9:52 AM EDT [facility] External BUN 16 6 - 20 mg/dL 03/29/2023 9:52 AM EDT [facility] External Creatinine Blood 0.69 0.50 - 0.95 mg/dL 03/29/2023 9:52 AM EDT [facility] External BUN/Creat Ratio 23(H) 10 - 20 (calc) 03/29/2023 9:52 AM EDT [facility] External Sodium 140 136 - 145 mmol/L 03/29/2023 9:52 AM EDT [facility] External Potassium 3.9 3.4 - 5.0 mmol/L 03/29/2023 9:52 AM EDT [facility] External Chloride 102 98 - 107 mmol/L 03/29/2023 9:52 AM EDT [facility] External Carbon Dioxide 28 22 - 31 mmol/L 03/29/2023 9:52 AM EDT [facility] External Anion Gap (AG) 10 7 - 25 (calc) 03/29/2023 9:52 AM EDT [facility] External Calcium 9.7 8.6 - 10.2 mg/dL 03/29/2023 9:52 AM EDT [facility] External Total Protein 7.4 6.4 - 8.3 g/dL 03/29/2023 9:52 AM EDT [facility] External Albumin 4.4 3.5 - 5.2 g/dL 03/29/2023 9:52 AM EDT [facility] External Globulin 3.0 1.5 - 4.5 023 9:52 AM EDT [facility] External Albumin/Globulin Ratio 1.5 1.1 - 2.5 (calc) 03/29/2023 9:52 AM EDT [facility] External Bilirubin Total 0.6 0.1 - 1.2 mg/dL 03/29/2023 9:52 AM EDT [facility] External Alkaline Phosphatase 107 30 - 121 U/L 03/29/2023 9:52 AM EDT [facility] External AST (SGOT) 29 0 - 32 U/L 03/29/2023 9:52 AM EDT [facility] External ALT (SGPT) 36(H) 0 - 33 U/L 03/29/2023 9:52 AM EDT [facility] External Estimated GFR 91 >=60 03/29/2023 9:52 AM EDT [facility] Comment: NOTE New calculation for GFR (CKD-EPI 2020) is formulated without race adjustment factors at the recommendation of the National Kidney Foundation and [place] Society of Nephrology. This calculation has not been validated in women. For pediatric patients refer to https://www.kidney.org/professionals/KDOQI/gfr_calculatorPed 03/29/2023 9:07 AM EDT 03/29/2023 9:20 AM EDT Ebony Albrecht MD LAB BLOOD ORDERABLES Final Re sult [facility] [address] [place] [address], documented in this encounter Visit Diagnoses Not on filedocumented in this encounter Care Teams Art Therapy Specialist Relationship Specialty Start Date End Date Nate Mills MD [address] [facility] [address] [place] [address] PCP - General 09/23/20 04/02/24 Efrain Angeles MD [address] [facility] [address] [place] [address] PCP - General 04/03/24 documented as of this encounter
--- OUTSIDE RECORDS SUMMARY | 2025-03-31 15:14 | XMS_ITS | Clinical Summary ---
Author Organization [facility] Address [address] [place] [address] Care Team Providers Care Battery Container Inspector Name Role Phone Efrain Angeles MD Primary Care Provider Allergies Active Allergy Reactions Criticality Noted Date [...] Description 04/26/2025 10:30 AM EDT Office Visit [facility] at [facility] [address] [place] [address] 04/26/2025 11:30 AM EDT Office Visit [facility] at [facility] [address] [place] [address] Ebony Albrecht MD [address] [place] [phone] Health Maintenance Due Date Last Done Comments [...] UKY-Zoster Vaccines (2 of 2) 07/01/2020 05/06/2020 PBN-JASFI-18 Vaccine ( - 2023- season) 2024 06/14/2021, 10/26/2020, 10/20/2020, Additional history exists UKY-RSV Vaccine: 60+ Years or (1 - 1-dose 75+ series) 2024 UKY-Influenza Vaccine (#1) 05/24/202506/11, 09/21/2021, 07/24/2018 UKY-Hepatitis A Vaccines Aged Out 08/19/2019, 12/22 [...] complete this topic Insurance MEDICARE Care Teams Battery Container Inspector Relationship Specialty Start Date End Date Efrain Angeles MD [address] [place] [address] PCP - General 04/03/24
--- OUTSIDE RECORDS SUMMARY | 2025-03-31 15:14 | XMS_ITS | Encounter Summary ---
Author Organization [facility] Address [address] [place] [address] Care Team Providers Care Cathode Builder Name Role Phone Nate Mills MD Primary Care Provider [phone] Efrain Angeles MD Primary Care Provider [phone] Encounter Details Date Type Department Care Team (Late st Contact Info) Description 03/29/[address] [facility] at [facility] [address] [place] [phone] Ebony Albrecht MD [address] [address] Social History Tobacco Use Types [...] Description 04/26/2025 10:30 AM EDT Office Visit [facility] [address] [place] [phone] 04/26/2025 11:30 AM EDT Office Visit [facility] [place] [address] Ebony Albrecht MD [address] [facility] 2[address] [place] [phone] documented as of this encounter Procedures Procedure Name Priority Date/Time Associated Diagnosis Comments CBC WITH AUTO DIFFERENTIAL Routine 03/29/2023 9:07 AM EDT documented in this encounter Results * (ABNORMAL) CBC and Differential (03/29/2023 9:07 AM EDT) External WBC 12.7(H) 3.8 - 10.8 10*3/uL 03/29/2023 9:26 AM EDT [facility] External Red Blood Cell (RBC) 4.66 3.80 - 5.20 10*6/uL 03/29/2023 9:[address] [facility] External Hemoglobin 14.4 12.0 - 16.0 g/dL 03/29/2023 9:[address] [facility] External Hematocrit 42.6 35.0 - 47.0 % 03/29/2023 9:26 [address] ED[address] [facility] External MCV 92 80 - 100 fL 03/29/2023 9:26 [address] ED[address] [facility] External MCH 31 26 - 35 pg 03/29/2023 9:26 AM EDT [facility] External MCHC 34 32 - 36 g/dL 03/29/2023 9:26 [address] ED[address] [facility] External RDW 13.7 11.0 - 15.0 % 03/29/2023 9:[address] ED[address] [facility] External Mean Platelet Volume 9.7 6.2 - 10.5 fL 03/29/2023 9:[address] [facility] External Platelets 254 130 - 400 10*3/uL 03/29/2023 9:[address] ED[address] [facility] External Neutrophil# 8.9(H) 1.6 - 8.4 10*3/uL 03/29/2023 9:[address] [facility] External Lymphocyte# 2.7 0.4 - 5.1 10*3/uL 03/29/2023 9:[address] [facility] External Absolute Monocyte (Abs King) 0.7 0.0 - 1.2 10*3/uL 03/29/2023 9:[address] [facility] External Eosinophils# 0.3 0.0 - 0.8 10*3/uL 03/29/2023 9:[address] [facility] External Baso# 0.1 0.0 - 0.3 10*3/uL 03/29/2023 9:[address] [facility] External Neutrophils % 70.2 42.0 - 78.0 % 03/29/2023 9:[address] ED[address] [facility] External Lymphocyte % 20.9 11.0 - 47.0 % 03/29/2023 9:[address] [facility] External Monocyte % 5.6 0.0 - 11.0 % 03/29/2023 9:[address] [facility] External Eosinophil% 2.7 0.0 - 7.0 % 03/29/2023 9:[address] [facility] External Basophil % 0.6 0.0 - 3.0 % 03/29/2023 9:[address] [facility] External Nucleated RBC%-Auto 0.0 0.0 - 0.9 % 03/29/2023 9:[address] [facility] External Nucleated RBC Absolute 0.00 Not Estab. 10*3/uL 03/29/2023 9:[address] [facility] 03/29/2023 9:07 AM EDT 03/29/2023 9:22 AM EDT us Ebony Albrecht MD LAB BLOOD ORDERABLES Final Re sult [facility] [address] [place] [address], documented in this encounter Visit Diagnoses Not on filedocumented in this encounter Care Teams Cathode Builder Relationship Specialty Start Date End Date Nate Mills MD [facility] [place] [address] PCP - General 09/23/20 04/02/24 Efrain Angeles MD [address] [place] [address] PCP - General 04/03/24 documented as of this encounter
--- OUTSIDE RECORDS SUMMARY | 2025-03-31 15:14 | XMS_ITS | Encounter Summary ---
Author Organization [facility] Address [address] [place] [address] Care Team Providers Care Guest Services Attendant Name Role Phone Nate Mills MD Primary Care Provider [phone] Efrain Angeles MD Primary Care Provider [phone] Encounter Details Date Type Department Care Team (Late Contact Info) Description 02/20/2024 Orders Only External Location [address] [place] [address] Provider, External Social History Tobacco Use Types [...] Upcoming Encounters Date Type Department Care Team ([facility] Contact Info) Description 04/26/2025 10:30 AM EDT Office Visit [facility] [address] [place] [phone] 04/26/2025 11:30 AM EDT Office Visit [facility] [address] [place] [address] Ebony Albrecht MD [address] [phone] documented as of this encounter Procedures Procedure [...] on filedocumented in this encounter Care Teams Guest Services Attendant Relationship Specialty Start Date End Date Nate Mills MD [address] [facility] [address] [place] [address] PCP - General 09/23/20 04/02/24 Efrain Angeles MD [address] [facility] [address] [place] [address] PCP - General 04/03/24 documented as of this encounter
--- OUTSIDE RECORDS SUMMARY | 2025-03-31 15:15 | XMS_ITS | Encounter Summary ---
Author Organization [facility] Address [address] [place] [address] Care Team Providers Care Pool Nurse Name Role Phone Nate Mills MD Primary Care Provider [phone] Efrain Angeles MD Primary Care Provider [phone] Encounter Details Date Type Department Care Team (Late st Contact Info) Description 03/23/2022 Orders Only [facility] [address] [place] [phone] Ebony Albrecht MD [address] [address] Social History Tobacco Use Types [...] Description 04/26/2025 10:30 AM EDT Office Visit [facility] [address] [place] [phone] 04/26/2025 11:30 AM EDT Office Visit [facility] at [facility] [address] [place] [phone] Ebony Albrecht MD [address] [facility] [address] [place] [address] documented as of this encounter Procedures Procedure [...] recommendation of the National Kidney Foundation and [place] Society of Nephrology. This calculation has not been validated in women. For pediatric patients refer to https://www.kidney.org/professionals/KDOQI/gfr_calculatorPed 03/23/2022 9:07 AM EDT 03/23/2022 9:25 AM EDT us Ebony Albrecht MD LAB BLOOD ORDERABLES Final Re sult Performing Organization Address City/State/[facility] Co de Phone Number [facility] [address] [place] [address], documented in this encounter Visit Diagnoses Not on filedocumented in this encounter Care Teams Pool Nurse Relationship Specialty Start Date End Date Nate Mills MD 1210 [facility] [address] [place] [address] PCP - General 09/23/20 04/02/24 Efrain Angeles MD [address]10 [facility] [address] [place] [address] PCP - General 04/03/24 documented as of this encounter
--- OUTSIDE RECORDS SUMMARY | 2025-03-31 15:15 | XMS_ITS | Encounter Summary ---
Author Organization [facility] Address [address] [place] [address] Care Team Providers Care Plastics Sheet Finishing Press Operator Name Role Phone Nate Mills MD Primary Care Provider [phone] Efrain Angeles MD Primary Care Provider [phone] Encounter Details Date Type Department Care Team (Late st Contact Info) Description 03/14/2021 [facility] [address] [place] [address] [phone] Efrain La PA [address] [place] [address] Social History Tobacco Use Types [...] Description 04/26/2025 10:30 AM EDT Office Visit [facility] [address] [place] [phone] 04/26/2025 11:30 AM EDT Office Visit [facility] [address] [place] [phone] Ebony Albrecht MD 5 [facility] 2nd [place] [address] documented as of this encounter Procedures Procedure Name Priority Date/Time Associated Diagnosis Comments SEDIMENTATION RATE, AUTOMATED Routine 03/14/2021 1:48 PM EDT documented in this encounter Results * Sedimentation Rate, Automated (03/14/2021 1:48 PM EDT) External Erythrocyte Sedimentation Rate 25 0 - 29 MM/HR [facility] 03/14/2021 1:48 PM EDT 03/14/2021 2:10 PM EDT Efrain KIRBY LAB BLOOD ORDERABLES Final R esult Performing Organization Address City/State/[facility] Co de Phone Number [facility] [address] [place] [address], documented in this encounter Visit Diagnoses Not on filedocumented in this encounter Care Teams Plastics Sheet Finishing Press Operator Relationship Specialty Start Date End Date Nate Mills MD 1210 [facility] [address] [place] [id number] PCP - General 09/23/20 04/02/24 Efrain Angeles MD 1210 [facility] [address] [place] [id number] PCP - General 04/03/24 documented as of this encounter
--- OUTSIDE RECORDS SUMMARY | 2025-03-31 15:15 | XMS_ITS | Encounter Summary ---
Author Organization [employer] ([place], [place], [place], [place]) Address [address] [place] [address] Care Team Providers Care Community Arts Centre Manager Name Role Phone Unavailable Primary Care Provider Unavailabl e Reason for Referral * Diagnostic X-Ray (Emergency) - New Request Specialty Diagnoses / Procedures Referred By Jose tay Referred To Contact Diagnoses Calculus of kidney Procedures X-ray abdomen KUB 1 view Jordin Isabel MD [address] [place] [address] [address] [place] [address] Phone: tel: fax: Referral ID Status Reason Start Date Expiration Date V isits Requested Visits Authorized [id number] New Request 09/02/2024 09/02/2025 1 1 Encounter Details Date Type Department Care Team (Late st Contact Info) Description 09/02/2024 Outside Orders [facility] - [address] [place] [phone] Jordin Isabel MD [address] [place] [address] [address] [place] [address] Calculus of kidney (Primary Dx) Social History [...]
--- OUTSIDE RECORDS SUMMARY | 2025-03-31 15:15 | XMS_ITS | Encounter Summary ---
Author Organization [facility] Address [address] [place] [address] Care Team Providers Care Supervisor Wool Shearing Name Role Phone Nate Mills MD Primary Care Provider [phone] Efrain Angeles MD Primary Care Provider [phone] Encounter Details Date Type Department Care Team (Late st Contact Info) Description 03/23/2022 Orders Only [facility] [address] [place] [phone] Ebony Albrecht MD [address] [address] Social History Tobacco Use Types [...] Description 04/26/2025 10:30 AM EDT Office Visit [facility] [address] [place] [phone] 04/26/2025 11:30 AM EDT Office Visit [facility] [address] [place] [phone] Ebony Albrecht MD 2195 [facility] 2nd [place] [phone] documented as of this encounter Procedures Procedure Name Priority Date/Time Associated Diagnosis Comments CBC WITH AUTO DIFFERENTIAL Routine 03/23/2022 9:07 AM EDT documented in this encounter Results * (ABNORMAL) CBC and Differential (03/23/2022 9:07 AM EDT) External WBC 14.0(H) 3.8 - 10.8 K/uL [facility] External Red Blood Cell (RBC) 4.33 3.80 - 5.20 M/uL [facility] External Hemoglobin 13.3 12.0 - 16.0 G/DL [facility] External Hematocrit 39.2 35.0 - 47.0 % [facility] External MCV 91 80 - 100 fL [facility] External MCH 31 26 - 35 [facility] External MCHC 34 32 - 36 G/DL [facility] External RDW 13.2 11.0 - 15.0 % [facility] External Mean Platelet Volume 9.6 6.2 - 10.5 fL [facility] External Platelets 248 130 - 400 K/uL [facility] External Neutrophil# 9.3(H) 1.6 - 8.4 K/uL [facility] External Lymphocyte# 3.0 0.4 - 5.1 K/uL [facility] External Absolute Monocyte (Abs [place]) 0.7 0.0 - 1.2 K/uL [facility] External Eosinophils# 0.8 0.0 - 0.8 K/uL [facility] External Baso# 0.2 0.0 - 0.3 K/uL [facility] External Neutrophils % 66.7 42.0 - 78.0 % [facility] External Lymphocyte % 21.2 11.0 - 47.0 % [facility] External Monocyte % 5.1 0.0 - 11.0 % [facility] External Eosinophil% 5.8 0.0 - 7.0 % [facility] External Basophil % 1.2 0.0 - 3.0 % [facility] External Nucleated RBC%-Auto 0.1 0.0 - 0.9 % [facility] External Nucleated RBC Absolute 0.01 Not Estab. K/uL [facility] 03/23/2022 9:07 AM EDT 03/23/2022 9:25 AM EDT us Ebony Albrecht MD LAB BLOOD ORDERABLES Final Re sult [facility] [address] [place] [address], documented in this encounter Visit Diagnoses Not on filedocumented in this encounter Care Teams Supervisor Wool Shearing Relationship Specialty Start Date End Date Nate Mills MD 1210 [facility] [address] [place] [address] PCP - General 09/23/20 04/02/24 Efrain Angeles MD 1210 [facility] [address] [place] [id number] PCP - General 04/03/24 documented as of this encounter
--- OUTSIDE RECORDS SUMMARY | 2025-03-31 15:15 | XMS_ITS | Referral Summary ---
Author Organization [employer] ([place], [place], [place], [place]) Address [address] [place] [address] Care Team Providers Care Engineering Professionals Name Role Phone Unavailable Primary Care Provider [...] family history of breast cancer COMPARISON STUDIES: [facility] [phone]; no significant change. FINDINGS: Craniocaudal and mediolateral [...] annual screening mammography. At our facility, a koi marker is positioned over a visible skin [...] family history of breast cancer COMPARISON STUDIES: [facility] [phone]; no significant change. FINDINGS: Craniocaudal and mediolateral [...] annual screening mammography. At our facility, a koi marker is positioned over a visible skin [...] for the next mammogram. Sandrine Mckeon MD [facility] ORDERABLES F inal Result from Last 3 Months or Most Recently Relevant to Health Maintenance Insurance MEDICARE PART A B
--- OUTSIDE RECORDS SUMMARY | 2025-03-31 15:15 | XMS_ITS | Encounter Summary ---
Author Organization [facility] Address [address] [place] [address] Care Team Providers Care Trimmer Buffing Wheel Name Role Phone Nate Mills MD Primary Care Provider [phone] Efrain Angeles MD Primary Care Provider [phone] Encounter Details Date Type Department Care Team (Late st Contact Info) Description 03/14/2021 Orders Only [facility] [address] [place] [address] [phone] Efrain La PA [address] [place] [address] Social History Tobacco Use Types [...] Description 04/26/2025 10:30 AM EDT Office Visit [facility] [address] [place] [phone] 04/26/2025 11:30 AM EDT Office Visit [facility] [address] [place] [phone] Ebony Albrecht MD 5 [facility] 2nd [place] [address] documented as of this encounter Procedures Procedure Name Priority Date/Time Associated Diagnosis Comments D DIMER, QUANTITATIVE Routine 03/14/2021 1:48 PM EDT documented in this encounter Results * (ABNORMAL) D DIMER, QUANTITATIVE (03/14/2021 1:48 PM EDT) External D-Dimer 1.12(H) <0.50 mcg/mL [facility] Comment: The D-Dimer test is used [...] 11:295(2):199-207] For additional information, please refer to: http://education.gopogo/faq/ELW637 (This link is being provided for informational/ educational purposes only) TEST PERFORMED AT: [facility] [address] [id number] HARVINDER CULVER M.D. 03/14/2021 1:48 PM EDT 03/14/2021 2:38 PM EDT us Efrain KIRBY LAB BLOOD ORDERABLES Final R esult [facility] [address] [place] [address], documented in this encounter Visit Diagnoses Not on filedocumented in this encounter Care Teams Trimmer Buffing Wheel Relationship Specialty Start Date End Date Nate Mills MD 1210 [facility] [address] [place] [address] PCP - General 09/23/20 04/02/24 Efrain Angeles MD 1210 [place] [facility] [address] [place] [address] PCP - General 04/03/24 documented as of this encounter
--- OUTSIDE RECORDS SUMMARY | 2025-03-31 15:15 | XMS_ITS | Encounter Summary ---
Author Organization [facility] Address [address] [place] [address] Care Team Providers Care Test Case Developer Name Role Phone Nate Mills MD Primary Care Provider [phone] Efrain Angeles MD Primary Care Provider [phone] Encounter Details Date Type Department Care Team (Late st Contact Info) Description 03/23/2022 Orders Only [facility] at [facility] [address] [place] [phone] Ebony Albrecht MD [address] [address] Social History Tobacco Use Types [...] Description 04/26/2025 10:30 AM EDT Office Visit [facility] [address] [place] [phone] 04/26/2025 11:30 AM EDT Office Visit [facility] [address] [place] [phone] Ebony Albrecht MD 2195 [facility] [address]nd [place] [address] documented as of this encounter Procedures Procedure Name Priority Date/Time Associated Diagnosis Comments CEA, SERUM Routine 03/23/2022 9:07 AM EDT documented in this encounter Results * CEA, Serum (03/23/2022 9:07 AM EDT) External Carcinoembryonic Antigen 4.2 0.0 - 4.7 ng/mL [facility] Comment: This test was performed using the Abdelrahman Aiwlda E801 electrochemiluminescent method. Values obtained from different assay methods cannot be used interchangeably. . 03/23/2022 9:07 AM EDT 03/23/2022 9:25 AM EDT us Ebony Albrecht MD LAB BLOOD ORDERABLES Final Re sult [facility] [address] [place] [address], documented in this encounter Visit Diagnoses Not on filedocumented in this encounter Care Teams Test Case Developer Relationship Specialty Start Date End Date Nate Mills MD 1210 [facility] [address] [place] [address] PCP - General 09/23/20 04/02/24 Efrain Angeles MD 1210 [facility] [address] [place] [address] PCP - General 04/03/24 documented as of this encounter
--- OUTSIDE RECORDS SUMMARY | 2025-03-31 15:15 | XMS_ITS | Clinical Summary ---
Author Organization [employer] ([place], [place], [place], [place]) Address [address] [place] [address] Care Team Providers Care Lan/Wan Engineer Name Role Phone Unavailable Primary Care Provider [...] 2024 Falls Risk Screening 09/23/2024 Influenza Vaccine (#1) 2025 06/11/2022, 2020 Breast Cancer Screening Discontinued 11/16/19, 11/11/2019, 11/05/2018 Procedures Procedure Name Priority Date/Time [...] family history of breast cancer COMPARISON STUDIES: [facility] [phone]; no significant change. FINDINGS: Craniocaudal and mediolateral [...] annual screening mammography. At our facility, a [place] marker is positioned over a visible skin [...] family history of breast cancer COMPARISON STUDIES: [facility] [phone]; no significant change. FINDINGS: Craniocaudal and mediolateral [...] annual screening mammography. At our facility, a [place] marker is positioned over a visible skin [...]
--- OUTSIDE RECORDS SUMMARY | 2025-03-31 15:15 | XMS_ITS | Encounter Summary ---
Author Organization [facility] Address [address] [place] [address] Care Team Providers Care A And P Mechanic Name Role Phone Nate Mills MD Primary Care Provider [phone] Efrain Angeles MD Primary Care Provider [phone] Encounter Details Date Type Department Care Team (Late st Contact Info) Description 03/20/2021 Orders Only [facility] @ [address] [phone] Ebony Albrecht MD [address] [address] Social History Tobacco Use Types [...] [facility] [address] [place] [phone] 04/26/2025 11:30 AM EDT Office Visit [facility] [address] [place] [phone] Ebony Albrecht MD 2195 [facility] [place] [address]nd [place] [phone] documented as of this encounter Procedures Procedure Name Priority Date/Time Associated Diagnosis Comments CBC WITH AUTO DIFFERENTIAL Routine 03/20/2021 9:07 AM EDT documented in this encounter Results * (ABNORMAL) CBC and Differential (03/20/2021 9:07 AM EDT) External WBC 10.7 3.8 - 10.8 K/uL [facility] External Red Blood Cell (RBC) 4.31 3.80 - 5.20 M/uL [facility] External Hemoglobin 13.7 12.0 - 16.0 G/DL [facility] External Hematocrit 39.4 35.0 - 47.0 % [facility] External MCV 91 80 - 100 fL [facility] External MCH 32 26 - 35 [facility] External MCHC 35 32 - 36 G/DL [facility] External RDW 13.1 11.0 - 15.0 % [facility] External Mean Platelet Volume 9.4 6.2 - 10.5 fL [facility] External Platelets 264 130 - 400 K/uL [facility] External Neutrophil# 6.0 1.6 - 8.4 K/uL [facility] External Lymphocyte# 2.8 0.4 - 5.1 K/uL [facility] External Absolute Monocyte (Abs [place]) 0.7 0.0 - 1.2 K/uL [facility] External Eosinophils# 1.1(H) 0.0 - 0.8 K/uL [facility] External Baso# 0.1 0.0 - 0.3 K/uL [facility] External Neutrophils % 56.2 42.0 - 78.0 % [facility] External Lymphocyte % 26.2 11.0 - 47.0 % [facility] External Monocyte % 6.2 0.0 - 11.0 % [facility] External Eosinophil% 10.6(H) 0.0 - 7.0 % [facility] External Basophil % 0.8 0.0 - 3.0 % [facility] External Nucleated RBC%-Auto 0.0 0.0 - 0.9 % [facility] External Nucleated RBC Absolute 0.00 Not Estab. K/uL [facility] 03/20/2021 9:07 AM EDT 03/20/2021 9:25 AM EDT us Ebony Albrecht MD LAB BLOOD ORDERABLES Final Re sult Performing Organization Address City/State/[facility] Co de Phone Number [facility] [address] [place] [address], documented in this encounter Visit Diagnoses Not on filedocumented in this encounter Care Teams A And P Mechanic Relationship Specialty Start Date End Date Nate Mills MD 1210 [facility] [address] [place] [address] PCP - General 09/23/20 04/02/24 Efrain Angeles MD 1210 [facility] [address] [place] [id number] PCP - General 04/03/24 documented as of this encounter
--- OUTSIDE RECORDS SUMMARY | 2025-03-31 15:15 | XMS_ITS | Encounter Summary ---
Author Organization [facility] Address [address] [place] [address] Care Team Providers Care Electronic Development Technician Name Role Phone Nate Mills MD Primary Care Provider [phone] Efrain Angeles MD Primary Care Provider [phone] Encounter Details Date Type Department Care Team (Late st Contact Info) Description 03/20/2021 Orders Only [facility] @ [address] [phone] Ebony Albrecht MD [address] [phone] Social History Tobacco Use Types [...] Description 04/26/2025 10:30 AM EDT Office Visit [facility] [address] [place] [phone] 04/26/2025 11:30 AM EDT Office Visit [facility] [address] [place] [phone] Ebony Albrecht MD [address] [phone] documented as of this encounter Procedures Procedure Name Priority Date/Time Associated Diagnosis Comments COMPREHENSIVE METABOLIC PANEL, PLASMA Routine 03/20/2021 9:07 AM EDT documented in this encounter Results * (ABNORMAL) Comprehensive Metabolic Panel, Plasma (03/20/2021 9:07 AM EDT) External Glucose 91 74 - 100 mg/dL [facility] External BUN 18 6 - 20 mg/dL [facility] External Creatinine Blood 0.69 0.50 - 0.95 mg/dL [facility] External BUN/Creat Ratio 26(H) 10 - 20 (calc) [facility] External Sodium 143 136 - 145 mmol/L [facility] External Potassium 3.8 3.4 - 5.0 mmol/L [facility] External Chloride 104 98 - 107 mmol/L [facility] External Carbon Dioxide 29 22 - 31 mmol/L [facility] External Anion Gap (AG) 10 7 - 25 (calc) [facility] External Calcium 10.0 8.6 - 10.2 mg/dL [facility] External Total Protein 6.8 6.4 - 8.3 g/dL [facility] External Albumin 4.2 3.5 - 5.2 g/dL [facility] External Globulin 2.6 1.5 - 4.5 g/dL (calc) [facility] External Albumin/Globulin Ratio 1.6 1.1 - 2.5 (calc) [facility] External Bilirubin Total 0.4 0.1 - 1.2 mg/dL [facility] External Alkaline Phosphatase 98 35 - 106 U/L [facility] External AST (SGOT) 21 0 - 32 U/L [facility] External ALT (SGPT) 16 0 - 33 U/L [facility] External EGFR (If AFR/AM) 101 >=60 [facility] External Estimated GFR 87 >=60 [facility] Comment: NOTE Chronic kidney disease [...] LAB BLOOD ORDERABLES Final Re sult [facility] [address] [place] [address], documented in this encounter Visit Diagnoses Not on filedocumented in this encounter Care Teams Electronic Development Technician Relationship Specialty Start Date End Date Nate Mills MD 1210 [facility] [address] [place] [address] PCP - General 09/23/20 04/02/24 Efrain Angeles MD 1210 [facility] [address] [place] [address] PCP - General 04/03/24 documented as of this encounter
--- OUTSIDE RECORDS SUMMARY | 2025-03-31 15:15 | XMS_ITS | Encounter Summary ---
Author Organization [facility] Address [address] [place] [address] Care Team Providers Care Molding And Trim Installer Name Role Phone Nate Mills MD Primary Care Provider [phone] Efrain Angeles MD Primary Care Provider [phone] Encounter Details Date Type Department Care Team (Late st Contact Info) Description 03/14/2021 [facility] Only [facility] [address] [place] [phone] Efrain La PA [address] [place] [address] Social History Tobacco Use Types [...] Description 04/26/2025 10:30 AM EDT Office Visit [facility] [address] [place] [phone] 04/26/2025 11:30 AM EDT Office Visit [facility] [address] [place] [phone] Ebony Albrecht MD 5 [facility] [address]nd [place] [address] documented as of this encounter Procedures Procedure Name Priority Date/Time Associated Diagnosis Comments C-REACTIVE PROTEIN, PLASMA Routine 03/14/2021 1:48 PM EDT documented in this encounter Results * C-Reactive Protein, Plasma (03/14/2021 1:48 PM EDT) External C-Reactive Protein 0.15 0.00 - 0.49 mg/dL [facility] 03/14/2021 1:48 PM EDT 03/14/2021 2:09 PM EDT us Efrain KIRBY LAB BLOOD ORDERABLES Final R esult [facility] [address] [place] [address], documented in this encounter Visit Diagnoses Not on filedocumented in this encounter Care Teams Molding And Trim Installer Relationship Specialty Start Date End Date Nate Mills MD 1210 [facility] [address] [place] [address] PCP - General 09/23/20 04/02/24 Efrain Angeles MD 1210 [facility] [address] [place] [address] PCP - General 04/03/24 documented as of this encounter
--- OUTSIDE RECORDS SUMMARY | 2025-03-31 15:15 | XMS_ITS | Encounter Summary ---
Author Organization [facility] Address [address] [place] [address] Care Team Providers Care Journeyman Power Plant Operator Name Role Phone Nate Mills MD Primary Care Provider [phone] Efrain Angeles MD Primary Care Provider [phone] Encounter Details Date Type Department Care Team (Late st Contact Info) Description 03/20/2021 Orders Only [facility] @ [address] [phone] Ebony Albrecht MD [address] [address] Social History Tobacco Use Types [...] Center at [facility] [address] [place] [phone] 04/26/2025 11:30 AM EDT Office Visit [facility] at [facility] [address] [place] [address] Ebony Albrecht MD 2[address] [facility] 2nd [place] [address] documented as of this encounter Procedures Procedure Name Priority Date/Time Associated Diagnosis Comments CEA, SERUM Routine 03/20/2021 9:07 AM EDT documented in this encounter Results * (ABNORMAL) CEA, Serum (03/20/2021 9:07 AM EDT) External Carcinoembryonic Antigen 5.0(H) 0.0 - 4.7 ng/mL [facility] Comment: This test was performed using the Abdelrahman Awilda E801 electrochemiluminescent method. Values obtained from different assay methods cannot be used interchangeably. . 03/20/2021 9:07 AM EDT 03/20/2021 9:50 AM EDT us Ebony Albrecht MD LAB BLOOD ORDERABLES Final Re sult [facility] [address] [place] [address], documented in this encounter Visit Diagnoses Not on filedocumented in this encounter Care Teams Journeyman Power Plant Operator Relationship Specialty Start Date End Date Nate Mills MD [address] [facility] [address] [place] [address] PCP - General 09/23/20 04/02/24 Efrain Angeles MD [address] [place] [facility] [address] [place] [address] PCP - General 04/03/24 documented as of this encounter
[2025-03-31 16:31] LABS: Hematocrit 36.0 % (37.0-47.0); Hemoglobin 12.0 g/dL (12.2-16.2); Immature Granulocytes % 0.4 %; Mean Corpuscular HGB Conc 33.3 g/dL (31.8-35.4); Mean Corpuscular Hemoglobin 30.5 pg (27.0-31.2); Mean Corpuscular Volume 91.6 fl (81-99); Nucleated Red Blood Cells % 0 %; Platelet Count 371 K/mm3 (142-424); Red Blood Count 3.93 M/mm3 (4.20-5.40); Red Cell Distribution Width-SD 42.7 fL; White Blood Count 12.7 K/mm3 (4.8-10.8)
== END 2025-03-31 23:59 | disposition home or self-care (01) ==
LOC: LAB 15:13
PROVIDERS: PCP Family Medicine; Visit Provider Surgery
DX: K80.20 Calculus of gallbladder without cholecystitis without obstruction (principal)
CPT/HCPCS: 36415; 85025

== ENCOUNTER 2025-04-01 13:16 | Inpatient (IN) | payer MEDICARE, OTHER, SELFPAY ==
--- OUTSIDE RECORDS SUMMARY | 2025-02-01 11:00 | XMS_ITS ---
Author Organization [facility] Address [address] [facility] [address] [place] [phone] Care Team Providers Care Skilled Nursing Case Manager Name Role Phone Kathryn Angeles Primary [...] 02/01/2025 Encounters Encounter Location Date Provider Diagnosis [facility] 1210 [facility] 36 [facility] [address] [place] [phone] 02/01/2025 Kathryn Angeles Symptomatic cholelithiasis K80.20 Assessments Encounter Date Diagnosis (ICD Code) Assessment Notes Treatment Notes Treatment Clinical Notes Section Notes 02/01/2025 Symptomatic cholelithiasis (ICD-10 - K80.20) CONT RX. AWAIT CONSULTATION Plan Of Treatment Treatment Notes Assessment Notes Symptomatic cholelithiasis CONT RX. AWAI T CONSULTATION Next Appt Details Follow Up: 2 Months, Reason: Provider Name:Kathryn Pennington er, 05/31/2025 04:00:00 PM, 1210 [facility] 36 [facility], [address], [place], [phone], Progress Notes * SAVANNAH JACOBOB:[birth year] (74 yo F)Acc No.[id number]:02/01/2025 Progress Notes Patient: BAMBI ROCHE Provider: Kathryn Angeles M.D. :1950 A ge:74 Y S ex:Female Date:02/01/2025 Address:[address] [place] [address], [phone] Subjective: * Chief Complaints: * [...] Diagno stic Procedure: k idney stone 02/2011, [facility] ER-fall 06/06. * Family History: F ather: . M other: . 1 sister(s) . . * Social History: C URRENT TOBACCO USE S moking Status: Patient does NOT smoke, Second hand smoke exposure: No. H ome smoke detector use: yes. Marital Status: Single, spouse is . Occupation: Works at [employer]. Past smoking status: no, 2003, quit smoking. Occup. exposure: She saw the Beatles twice! She saw Laith Mukesh! Also Alissa Robert and Curtis Briceno! Her favorite concert was [employer].. * Medications: T dionisio Dutasteride 0.5 MG [...] * Images: Billing Information: * Visit Code: 64248 Office Visit, Est Pt., Level 3. * Procedure Codes: G2211 Complex e/m visit add on. * Electronic signature of Kathryn Angeles MD on 04/02/2025 at 03:01 PM EDT Sign off status: Pending * Provider: Kathryn Angeles M.D. Date: 0 02/01/2025 Generated for Kasey ovalles/Ghanshyam/Abramranloriitting on: 0 04/02/2025 03:01 PM EDT History and Physical Notes * [...]
--- OUTSIDE RECORDS SUMMARY | 2025-02-01 11:00 | XMS_ITS ---
Author Organization [facility] Address [address] [facility] [address] [place] [phone] Care Team Providers Care Online Marketing Manager Name Role Phone Kathryn Angeles Primary [...] 02/01/2025 Encounters Encounter Location Date Provider Diagnosis [facility] 1210 [facility] 36 [facility] [address] [place] [phone] 02/01/2025 Kathryn Angeles Symptomatic cholelithiasis K80.20 Assessments Encounter Date Diagnosis (ICD Code) Assessment Notes Treatment Notes Treatment Clinical Notes Section Notes 02/01/2025 Symptomatic cholelithiasis (ICD-10 - K80.20) CONT RX. AWAIT CONSULTATION Plan Of Treatment Treatment Notes Assessment Notes Symptomatic cholelithiasis CONT RX. AWAI T CONSULTATION Next Appt Details Follow Up: 2 Months, Reason: Provider Name:Kathryn Pennington er, 05/31/2025 04:00:00 PM, 1210 [facility] 36 [facility], [address], [place], [phone], Progress Notes * SAVANNAH JACOBOB:[birth year] (74 yo F)Acc No.[id number]:02/01/2025 Progress Notes Patient: BAMBI ROCHE Provider: Kathryn Angeles M.D. :1950 A ge:74 Y S ex:Female Date:02/01/2025 Address:[address] [place] [address], [id number] Subjective: * Chief Complaints: * [...] Diagno stic Procedure: k idney stone 02/2011, [facility] ER-fall 06/06. * Family History: F ather: . M other: . 1 sister(s) . . * Social History: C URRENT TOBACCO USE S moking Status: Patient does NOT smoke, Second hand smoke exposure: No. H ome smoke detector use: yes. Marital Status: Single, spouse is . Occupation: Works at [employer]. Past smoking status: no, 2003, quit smoking. Occup. exposure: She saw the Beatles twice! She saw Laith Mukesh! Also Alissa Robert and Curtis Briceno! Her favorite concert was [employer].. * Medications: T dionisio Dutasteride 0.5 MG [...] * Images: Billing Information: * Visit Code: 13052 Office Visit, Est Pt., Level 3. * Procedure Codes: G2211 Complex e/m visit add on. * Electronic signature of Kathryn Angeles MD on 04/01/2025 at 01:50 PM EDT Sign off status: Pending * Provider: Kathryn Angeles M.D. Date: 0 02/01/2025 Generated for Kasey ovalles/Ghanshyam/Naseemitting on: 0 04/01/2025 01:50 PM EDT History and Physical Notes * [...]
--- OUTSIDE RECORDS SUMMARY | 2025-03-29 12:15 | XMS_ITS ---
Author Organization [facility] Address [address] [place] [id number] Care Team Providers Care Chromium Plater Name Role Phone Kathryn Angeles Primary Care Provider Allergies Allergen (clinical drug ingredient) Drug/Non Drug Allergy documented on EMR Reaction Allergy Type Onset Date Status nickel HUGO (uncoded) Unknown Allergy Act tamar Polypropylene glycol POLYPROPYLENE GLYCO L (uncoded) Unknown Allergy Active Levaquin Myalgias Drug Allergy Active Retinoic Acid Unknown Drug Allergy Act tamar Results Component Value Reference Range Notes P-Comprehensive Metabolic Pa macario (CMP) (Not yet reviewed by provider) Interpretation:bun 30, Cr 1.32, gfr 42, alk phos 203 Performing Lab: Notes/Report: Test performed by [employer] [facility] , [address], [place] [address] Rafi Forbes MD, Data Conversion Operator CLIA: [id number] Sodium 139 135-145 mmol/L Potassium 5.3 3.5-5.3 [...] 0.4 <0.2-1.2 mg/dL A/G Ratio 1.5 1.1-2.5 CBC Venipuncture (in house) Reviewed date:03/30/2025 11:37:40 [...] - 38 platlet 361 100 - 400 REASON FOR VISIT 4 mo ck up, Needs mammogram & bone density screening Medications Medication SIG (Take, Route, Frequency, Duration) Notes Start Date End Date Status Losartan Potassium 50 MG Take 1/2 ([facility]) tablet by mouth once daily; Duration: 90 Active Triamterene-HCTZ 37.5-25 MG 1 tablet in the morning Orally Once a day; Duration: 90 days Active Potassium Chloride ER 10 MEQ 1 tablet with food Orally Twice a day; Duration: 90 days Active Diclofenac Sodium ER 100 MG TAKE 1 BY MO UT ONCE DAILY NEEDED FOR 90 DAYS; Duration: [...] Status Risk Notes Problem History of cholecystectomy (507497397) Status post cholecystectomy (Z90.49) Active confirmed Vital Signs Weight 149.2 lbs 03/29/2025 Blood pressure systolic 102 mm Hg 03/29/20 25 Blood pressure diastolic 62 mm Hg 025 Heart Rate 80 /min 03/29/2025 Height 66 in 03/29/2025 BMI 24.08 kg/m2 03/29/2025 Encounters Encounter Location Date Provider Diagnosis [facility] [address] [facility] [address] [facility] [address] [place] [id number] 03/29/2025 Kathryn Angeles Essential hypertensi on I10 ; Status post cholecystectomy Z90.49 ; Other chronic pain G89.29 ; Centrilobular emphysema J43.2 and History of colorectal cancer Z85.038 Assessments Encounter Date Diagnosis (ICD Code) Assessment Notes Treatment Notes Treatment Clinical Notes Section Notes 03/29/2025 Essential hypertension (ICD-10 - I10) 03/29/2025 Status post cholecystectomy (ICD-10 - Z90.49) 03/29/2025 Other chronic pain (ICD-10 - G89.29) 03/29/2025 Centrilobular emphysema (ICD-10 - J43.2) 03/29/2025 History of colorectal cancer (ICD-10 - Z85.038) Plan Of Treatment Pending Test Test Name Order Date P-Comprehensive Metabolic Panel (CMP) Next Appt Details Follow Up: 2 Months, Reason: Provider Name:Kathryn Pennington er, 05/31/2025 04:00:00 PM, [address] [facility] [address] [facility], [address], [place], [id number], Progress Notes * SOHAN NUÑEZCLARICEB:[birth year] (74 yo F)Acc No.[id number]:03/29/2025 Progress Notes Patient: BAMBI ROCHE Provider: Kathryn Angeles M.D. :1950 A ge:74 Y S ex:Female Date:03/29/2025 Address:[address], [id number] Subjective: * Chief Complaints: [...] Diagno stic Procedure: k idney stone 02/2011, [place] ER-fall 06/06. * Family History: F ather: . M other: . 1 sister(s) . . * Social History: C URRENT TOBACCO USE S moking Status: Patient does NOT smoke, Second hand smoke exposure: No. H ome smoke detector use: yes. Marital Status: Single, spouse is . Occupation: Works at [employer]. Past smoking status: no, 2003, quit smoking. Occup. exposure: She saw the [employer] twice! She saw Laith Mayorga! Also Alissa Reyesplin and Curtis Briceno! Her favorite concert was [employer].. * Medications: T akinteo Gemtesa 75 MG Tablet 1 tablet Orally [...] H istory of colorectal cancer - Z85.038 Plan: * Treatment: Value Reference Range A [...] by Creatinine 42 L >59 - mL/min/1.73m2 ?LAB: CBC Venipuncture (in house) (Collection Date [...] while patient in office. * Procedure Codes: 8 5025 CBC WITH AUTO DIFF, 75390 VENIPUNCT, ROUTINE* * Follow Up: 2 Months * Images: Billing Information: * Visit Code: 35703 Office Visit, Est Pt., Level 4. * Procedure Codes: 25869 CBC WITH AUTO DIFF. 55549 VENIPUNCT, ROUTINE*. * Electronic signature of Kathryn Angeles MD on 04/01/2025 at 01:50 PM EDT Sign off status: Pending * Provider: Kathryn Angeles M.D. Date: 0 03/29/2025 Generated for Kasey ovalles/Ghanshyam/Darby on: 0 04/01/2025 01:50 PM EDT History [...]
--- OUTSIDE RECORDS SUMMARY | 2025-03-29 12:15 | XMS_ITS ---
Author Organization [facility] Address [address] [place] [id number] Care Team Providers Care Dental Services Director Name Role Phone Kathryn Angeles Primary Care Provider Allergies Allergen (clinical drug ingredient) Drug/Non Drug Allergy documented on EMR Reaction Allergy Type Onset Date Status nickel HUOG (uncoded) Unknown Allergy Act taamr Polypropylene glycol POLYPROPYLENE GLYCO L (uncoded) Unknown Allergy Active Levaquin Myalgias Drug Allergy Active Retinoic Acid Unknown Drug Allergy Act tamar Results Component Value Reference Range Notes P-Comprehensive Metabolic Pa macario (CMP) (Not yet reviewed by provider) Interpretation:bun 30, Cr 1.32, gfr 42, alk phos 203 Performing Lab: Notes/Report: Test performed by [employer] [facility] , [address], [place] [address] Rafi Forbes MD, Algorithm Developer CLIA: [id number] Sodium 139 135-145 mmol/L Potassium 5.3 3.5-5.3 [...] post cholecystectomy (Z90.49) Active confirmed Vital Signs Blood pressure systolic 102 mm Hg 03/29/20 25 Blood pressure diastolic 62 mm Hg 025 Heart Rate 80 /min 03/29/2025 Height 66 in 03/29/2025 Weight 149.2 lbs 03/29/2025 BMI 24.08 kg/m2 03/29/2025 Encounters Encounter Location Date Provider Diagnosis [facility] [address] [place], [place] [phone] 03/29/2025 Kathryn Angeles Essential hypertensi on I10 [...] Name:Kathryn Pennington er, 05/31/2025 04:00:00 PM, [facility] [facility] [address] [facility], [address], [place], [phone], Progress Notes * SAVANNAH JACOBOB:[birth year] (74 yo F)Acc No.[id number]:03/29/2025 Progress Notes Patient: BAMBI ROCHE Provider: Kathryn Angeles M.D. :1950 A ge:74 Y S ex:Female Date:03/29/2025 Address:[address] [place], [place] Subjective: * [...] Diagno stic Procedure: k idney stone 02/2011, [facility] 06/06. * Family History: F ather: . M other: . 1 sister(s) . . * Social History: C URRENT TOBACCO USE S moking Status: Patient does NOT smoke, Second hand smoke exposure: No. H ome smoke detector use: yes. Marital Status: Single, spouse is . Occupation: Works at [employer]. Past smoking status: no, 2003, quit smoking. Occup. exposure: She saw the Beatles twice! She saw Laithdimitri Khanrix! Also Alissa Jones and Curtis Janak! Her favorite concert was [employer].. * Medications: T dionisio Gemtesa 75 MG Tablet 1 tablet Orally [...] Codes: 8 5025 CBC WITH AUTO DIFF, 24225 VENIPUNCT, ROUTINE* * Follow Up: 2 Months * Images: Billing Information: * Visit Code: 59812 Office Visit, Est Pt., Level 4. * Procedure Codes: 11698 CBC WITH AUTO DIFF. 29191 VENIPUNCT, ROUTINE*. * Electronic signature of Kathryn Angeles MD on 04/02/2025 at 03:01 PM EDT Sign off status: Pending * Provider: Kathryn Angeles M.D. Date: 03/29/2025 Generated for Kasey ovalles/Ghanshyam/Darby on: 0 04/02/2025 03:01 PM EDT History [...]
[2025-04-01] VITALS (25 sets, daily range): BP systolic 103–156; BP diastolic 53–86; PULSE 74–821; RESP 16–22; TEMP -7.2–43; O2SAT 94–100; BMI 23.8
--- OUTSIDE RECORDS SUMMARY | 2025-04-01 13:50 | XMS_ITS | Clinical Summary ---
Author Organization [facility] Address [address] [place] [address] Care Team Providers Care Rn Stars Name Role Phone Efrain Angeles MD Primary Care Provider [phone] Allergies Active Allergy Reactions Criticality Noted Date [...] Description 04/26/2025 10:30 AM EDT Office Visit [facility] at [facility] [address] [place] [address] 04/26/2025 11:30 AM EDT Office Visit [facility] [address] [place] [address] Ebony Albrecht MD [address] [place] [phone] Health Maintenance Due Date Last Done Comments [facility]-Bone Density Scan 1949 [facility]-Depression Screening 1949 [facility]-Hepatitis C Screening 1949 [facility]-Medicare Annual Wellness (AWV) 1949 [facility]-/Child/Adol SDOH Screenings 1949 [facility]- SDOH Screenings 1967 [facility]-Adult SDOH Screenings 1967 [facility]-DTaP,Tdap,and Td Vaccines (1 - Tdap) 1968 CT Colonography 1994 Colonoscopy 1994 FIT-DNA 1994 FIT 1994 FOBT 1994 Sigmoidoscopy 1994 [facility]-Colorectal Cancer Screening 1994 [facility]-Pneumococcal Vaccine: 50+ Years (1 of 1 - PCV) 1999 [facility]-Zoster Vaccines (2 of 2) 07/01/2020 05/06/2020 ZCV-RQRDA-19 Vaccine ( - 2023- season) 2024 06/14/2021, [...] complete this topic Insurance MEDICARE Care Teams Rn Stars Relationship Specialty Start Date End Date Efrain Angeles MD [address] [place] [address] PCP - General 04/03/24
--- OUTSIDE RECORDS SUMMARY | 2025-04-01 13:50 | XMS_ITS | Encounter Summary ---
Author Organization [facility] Address [address] [place] [address] Care Team Providers Care Outpatient Interviewing Clerk Name Role Phone Nate Mills MD Primary Care Provider [phone] Efrain Angeles MD Primary Care Provider [phone] Encounter Details Date Type Department Care Team (Late st Contact Info) Description 03/29/2023 Orders Only [facility] [address] [place] [phone] Ebony Albrecht MD [address] [address] Social History Tobacco Use Types [...] EDT Office Visit [facility] [address] [place] [phone] 04/26/2025 11:30 AM EDT Office Visit [facility] [place] [address] Ebony Albrecht MD [address] [facility] [address] [place] [phone] documented as of this encounter Procedures Procedure Name Priority Date/Time Associated Diagnosis Comments CBC WITH AUTO DIFFERENTIAL Routine 03/29/2023 9:07 AM EDT documented in this encounter Results * (ABNORMAL) CBC and Differential (03/29/2023 9:07 AM EDT) External WBC 12.7(H) 3.8 - 10.8 10*3/uL 03/29/2023 9:26 AM EDT [facility] External Red Blood Cell (RBC) 4.66 3.80 - 5.20 10*6/uL 03/29/2023 9:26 AM EDT [facility] External Hemoglobin 14.4 12.0 - 16.0 g/dL 03/29/2023 9:26 AM EDT [facility] External Hematocrit 42.6 35.0 - 47.0 % 03/29/2023 9:26 AM EDT [facility] External MCV 92 80 - 100 fL 03/29/2023 9:26 AM EDT [facility] External MCH 31 26 - 35 pg 03/29/2023 9:26 AM EDT [facility] External MCHC 34 32 - 36 g/dL 03/29/2023 9:26 AM EDT [facility] External RDW 13.7 11.0 - 15.0 % 03/29/2023 9:26 AM EDT [facility] External Mean Platelet Volume 9.7 6.2 - 10.5 fL 03/29/2023 9:26 AM EDT [facility] External Platelets 254 130 - 400 10*3/uL 03/29/2023 9:26 AM EDT [facility] External Neutrophil# 8.9(H) 1.6 - 8.4 10*3/uL 03/29/2023 9:26 AM EDT [facility] External Lymphocyte# 2.7 0.4 - 5.1 10*3/uL 03/29/2023 9:26 AM EDT [facility] External Absolute Monocyte (Abs Emmons) 0.7 0.0 - 1.2 10*3/uL 03/29/2023 9:26 AM EDT [facility] External Eosinophils# 0.3 0.0 - 0.8 10*3/uL 03/29/2023 9:26 AM EDT [facility] External Baso# 0.1 0.0 - 0.3 10*3/uL 03/29/2023 9:26 AM EDT [facility] External Neutrophils % 70.2 42.0 - 78.0 % 03/29/2023 9:26 AM EDT [facility] External Lymphocyte % 20.9 11.0 - 47.0 % 03/29/2023 9:26 AM EDT [facility] External Monocyte % 5.6 0.0 - 11.0 % 03/29/2023 9:26 AM EDT [facility] External Eosinophil% 2.7 0.0 - 7.0 % 03/29/2023 9:26 AM EDT [facility] External Basophil % 0.6 0.0 - 3.0 % 03/29/2023 9:26 AM EDT [facility] External Nucleated RBC%-Auto 0.0 0.0 - 0.9 % 03/29/2023 9:26 AM EDT [facility] External Nucleated RBC Absolute 0.00 Not Estab. 10*3/uL 03/29/2023 9:26 AM EDT [facility] 03/29/2023 9:07 AM EDT 03/29/2023 9:22 AM EDT us Ebony Albrecht MD LAB BLOOD ORDERABLES Final Re sult [facility] [address] [place] [address], documented in this encounter Visit Diagnoses Not on filedocumented in this encounter Care Teams Outpatient Interviewing Clerk Relationship Specialty Start Date End Date Nate Mills MD [facility]0 [place] [address] PCP - General 09/23/20 04/02/24 Efrain Angeles MD [address] [place] [address] PCP - General 04/03/24 documented as of this encounter
--- OUTSIDE RECORDS SUMMARY | 2025-04-01 13:50 | XMS_ITS | Encounter Summary ---
Author Organization [facility] Address [address] [place] [address] Care Team Providers Care Firer Electric Locomotive Name Role Phone Nate Mills MD Primary Care Provider [phone] Efrain Angeles MD Primary Care Provider [phone] Encounter Details Date Type Department Care Team (Late Contact Info) Description 02/20/2024 Orders Only External Location [address] [place] [address] Provider, External Social History Tobacco Use Types [...] Upcoming Encounters Date Type Department Care Team ([facility] Contact Info) Description 04/26/2025 10:30 AM EDT Office Visit [facility] [address] [place] [phone] 04/26/2025 11:30 AM EDT Office Visit [facility] at [facility] [address] [place] [address] Ebony Albrecht MD [address] [phone] documented as of this encounter Procedures Procedure [...] on filedocumented in this encounter Care Teams Firer Electric Locomotive Relationship Specialty Start Date End Date Nate Mills MD [address] [place] [facility] [address] [place] [address] PCP - General 09/23/20 04/02/24 Efrain Angeles MD [address] [place] [facility] [address] [place] [address] PCP - General 04/03/24 documented as of this encounter
--- OUTSIDE RECORDS SUMMARY | 2025-04-01 13:50 | XMS_ITS | Encounter Summary ---
Author Organization [facility] Address [address] [place] [address] Care Team Providers Care Bending Machine Set Up Operator Name Role Phone Nate Mills MD Primary Care Provider [phone] Efrain Angeles MD Primary Care Provider [phone] Encounter Details Date Type Department Care Team (Late st Contact Info) Description 03/29/2023 Orders Only [facility] [address] [place] [phone] Ebony Albrecht MD [address] [address] Social History Tobacco Use Types [...] Description 04/26/2025 10:30 AM EDT [facility] [address] [place] [phone] 04/26/2025 11:30 AM EDT [facility] [address] [place] [address] Ebony Albrecht MD [address] [phone] documented as of this encounter Procedures Procedure Name Priority Date/Time Associated Diagnosis Comments COMPREHENSIVE METABOLIC PANEL, PLASMA Routine 03/29/2023 9:07 AM EDT documented in this encounter Results * (ABNORMAL) Comprehensive Metabolic Panel, Plasma (03/29/2023 9:07 AM EDT) External Glucose 108(H) 74 - 100 mg/dL 03/29/2023 9:52 AM EDT [facility] External BUN 16 6 - 20 mg/dL 03/29/2023 9:52 AM EDT [facility] External Creatinine Blood 0.69 0.50 - 0.95 mg/dL 03/29/2023 9:52 AM EDT [facility] External BUN/Creat Ratio 23(H) 10 - 20 (calc) 03/29/2023 9:52 AM EDT [facility] External Sodium 140 136 - 145 mmol/L 03/29/2023 9:52 AM EDT [facility] External Potassium 3.9 3.4 - 5.0 mmol/L 03/29/2023 9:52 AM EDT [facility] External Chloride 102 98 - 107 mmol/L 03/29/2023 9:52 AM EDT [facility] External Carbon Dioxide 28 22 - 31 mmol/L 03/29/2023 9:52 AM EDT [facility] External Anion Gap (AG) 10 7 - 25 (calc) 03/29/2023 9:52 AM EDT [facility] External Calcium 9.7 8.6 - 10.2 mg/dL 03/29/2023 9:52 AM EDT [facility] External Total Protein 7.4 6.4 - 8.3 g/dL 03/29/2023 9:52 AM EDT [facility] External Albumin 4.4 3.5 - 5.2 g/dL 03/29/2023 9:52 AM EDT [facility] External Globulin 3.0 1.5 - 4.5 023 9:52 AM EDT [facility] External Albumin/Globulin Ratio 1.5 1.1 - 2.5 (calc) 03/29/2023 9:52 AM EDT [facility] External Bilirubin Total 0.6 0.1 - 1.2 mg/dL 03/29/2023 9:52 AM EDT [facility] External Alkaline Phosphatase 107 30 - 121 U/L 03/29/2023 9:52 AM EDT [facility] External AST (SGOT) 29 0 - 32 U/L 03/29/2023 9:52 AM EDT [facility] External ALT (SGPT) 36(H) 0 - 33 U/L 03/29/2023 9:52 AM EDT [facility] External Estimated GFR 91 >=60 03/29/2023 9:52 AM EDT [facility] Comment: NOTE New calculation for GFR (CKD-EPI 2020) is formulated without race adjustment factors at the recommendation of the National Kidney Foundation and [place] [employer]ph[employer]. This calculation has not been validated in women. For pediatric patients refer to https://www.kidney.org/professionals/KDOQI/gfr_calculatorPed 03/29/2023 9:07 AM EDT 03/29/2023 9:20 AM EDT Ebony Albrecht MD LAB BLOOD ORDERABLES Final Re sult [facility] [address] [place] [address], documented in this encounter Visit Diagnoses Not on filedocumented in this encounter Care Teams Bending Machine Set Up Operator Relationship Specialty Start Date End Date Nate Mills MD [address] [facility] [address] [place] [address] PCP - General 09/23/20 04/02/24 Efrain Angeles MD [address] [facility] [address] [place] [address] PCP - General 04/03/24 documented as of this encounter
--- OUTSIDE RECORDS SUMMARY | 2025-04-01 13:50 | XMS_ITS | Encounter Summary ---
Author Organization [facility] Address [address] [place] [address] Care Team Providers Care Display Associate Name Role Phone Nate Mills MD Primary Care Provider [phone] Efrain Angeles MD Primary Care Provider [phone] Encounter Details Date Type Department Care Team (Late st Contact Info) Description 03/29/2023 Orders Only [facility] [address] [place] [phone] Ebony Albrecht MD [address] [address] Social History Tobacco Use Types [...] Description 04/26/2025 10:30 AM EDT Office Visit [facility] [address] [place] [phone] 04/26/2025 11:30 AM EDT Office Visit [facility] [address] [place] [address] Ebony Albrecht MD [address] [facility] 2nd [place] [address] documented as of this encounter Procedures Procedure Name Priority Date/Time Associated Diagnosis Comments CEA, SERUM Routine 03/29/2023 9:07 AM EDT documented in this encounter Results * CEA, Serum (03/29/2023 9:07 AM EDT) External Carcinoembryonic Antigen 4.6 0.0 - 4.7 ng/mL 03/29/2023 9:59 AM EDT [facility] Comment: This test was performed using the Abdelrahman Awilda E801 electrochemiluminescent method. Values obtained from different assay methods cannot be used interchangeably. . 03/29/2023 9:07 AM EDT 03/29/2023 9:22 AM EDT us Ebony Albrecht MD LAB BLOOD ORDERABLES Final Re sult [facility] [address] [place] [address], documented in this encounter Visit Diagnoses Not on filedocumented in this encounter Care Teams Display Associate Relationship Specialty Start Date End Date Nate Mills MD 1210 [facility] [address] [place] [address] PCP - General 09/23/20 04/02/24 Efrain Angeles MD 1210 [facility] [address] [facility] [address] [place] [address] PCP - General 04/03/24 documented as of this encounter
--- OUTSIDE RECORDS SUMMARY | 2025-04-01 13:51 | XMS_ITS | Encounter Summary ---
Author Organization [facility] Address [address] [place] [address] Care Team Providers Care Sock And Stocking Ironer Name Role Phone Nate Mills MD Primary Care Provider [phone] Efrain Angeles MD Primary Care Provider [phone] Encounter Details Date Type Department Care Team (Late st Contact Info) Description 03/20/2021 Orders Only [facility] @ [address] [phone] Ebony Albrecht MD [address] [address] Social History Tobacco Use Types [...] Description 04/26/2025 10:30 AM EDT Office Visit [facility] [address] [place] [phone] 04/26/2025 11:30 AM EDT Office Visit [facility] [address] [place] [phone] Ebony Albrecht MD [address] [facility] [address] [place] [address] documented as of this encounter Procedures Procedure Name Priority Date/Time Associated Diagnosis Comments CEA, SERUM Routine 03/20/2021 9:07 AM EDT documented in this encounter Results * (ABNORMAL) CEA, Serum (03/20/2021 9:07 AM EDT) External Carcinoembryonic Antigen 5.0(H) 0.0 - 4.7 ng/mL [facility] Comment: This test was performed using the Abdelrahman Awilda E801 electrochemiluminescent method. Values obtained from different assay methods cannot be used interchangeably. . 03/20/2021 9:07 AM EDT 03/20/2021 9:50 AM EDT us Ebony Albrecht MD LAB BLOOD ORDERABLES Final Re sult [facility] [address] [place] [address], documented in this encounter Visit Diagnoses Not on filedocumented in this encounter Care Teams Sock And Stocking Ironer Relationship Specialty Start Date End Date Nate Mills MD 1210 [facility] [address] [place] [address] PCP - General 09/23/20 04/02/24 Efrain Angeles MD [address] [facility] [address] [place] [address] PCP - General 04/03/24 documented as of this encounter
--- OUTSIDE RECORDS SUMMARY | 2025-04-01 13:51 | XMS_ITS | Patient Health Record ---
Author Organization [facility] Address [address] [place] [id number] Care Team Providers Care Crop Grain Or Livestock Farm Manager Name Role Phone Kathryn Angeles Primary [...] 203 Performing Lab: Notes/Report: Test performed by [facility] [facility] [address] [place] [address] , [address], [place] [address] Rafi Forbes MD, Metal Model Builder CLIA: [id number] Sodium 139 135-145 mmol/L Potassium 5.3 3.5-5.3 [...] - 38 platlet 361 100 - 400 H-CMP Reviewed date:09/24/2024 09:21:35 AM Interpretation:bun 24 [...] AGRATIO 1.7 1.1-1.8 ALP 91 38-126 U/L H-CBC Reviewed date:09/24/2024 09:21:35 AM Interpretation:rbc 4, [...] 0.8 0.0-0.4 K/mm3 BA# 0.1 0-0.2 K/mm3 CBC Venipuncture (in house) Reviewed date:09/08/2024 10:11:08 [...] Lab: Notes/Report: bronchitis, bilateral breast implant rupture P-Comprehensive Metabolic Pa macario (CMP) Reviewed date:04/20/2024 10:01:19 AM Interpretation:gluc 110, alk phos 128 Performing Lab: Notes/Report: Test performed by [facility] [facility] [facility] , [address], [place] [address] Rafi Forbes MD, Metal Model Builder CLIA: [id number] Sodium 143 135-145 mmol/L Potassium 3.8 3.5-5.3 [...] <0.2-1.2 mg/dL A/G Ratio 1.5 1.1-2.5 mg/dL H-BMP Reviewed date:09/24/2024 09:20:53 AM Interpretation: Performing [...] 124 Performing Lab: Notes/Report: Test performed by [employer] [facility] , [address], [place] [address] Rafi Forbes MD, Metal Model Builder CLIA: [id number] Sodium 140 135-145 mmol/L Potassium 4.2 3.5-5.3 [...] Interpretation:Normal Performing Lab: Notes/Report: Test performed by [employer] [facility] [address] , [address], [place] [address] Rafi Forbes MD, Metal Model Builder CLIA: [id number] Lipase 25.6 13.0-60.0 u/L Ultrasound : Right [place] Reviewed date:02/05/2025 01:15:25 PM Interpretation:fatty liver, sludge and stones Performing Lab: Notes/Report: fatty liver, sludge and stones Medications Medication SIG (Take, Route, Frequency, Duration) Notes Start Date End Date Status Albuterol Sulfate HFA 108 (90 Base) MCG/ACT 1 puff as needed Inhalation four times a day as needed Active CoQ-10 100 MG 1 cap(s) orally once a day; Duration: 30 day(s) 05/27/2020 Active Align 4 MG 1 cap(s) orally once a day; Duration: 28 day(s) 12/24/2022 Active Aspirin Low Dose 81 MG 1 tablet Orally O nce a day 12/26/2023 Active Rosuvastatin Calcium 10 MG TAKE 1 TABLET BY MOUTH ON SATURDAY, SATURDAY AND SATURDAY; Duration: 138 days Active Losartan Potassium 50 MG Take 1/2 (one-h assisted) tablet by mouth once daily; Duration: 90 Active Triamterene-HCTZ 37.5-25 MG 1 tablet in the morning Orally Once a day; Duration: 90 days Active Potassium Chloride ER 10 MEQ 1 tablet with food Orally Twice a day; Duration: 90 days Active Gemtesa 75 MG 1 tablet Orally Once a day; Duration: 30 day(s) Active Diclofenac Sodium ER 100 MG TAKE 1 BY MO UTH ONCE DAILY NEEDED FOR 90 DAYS; Duration: 90 Active Immunizations Vaccine Route Administration Date Status [...] Problem Status W/U Status Risk Notes Problem Low back pain (794528609) Low back pain (M54.5) Active confirmed Problem Sciatica (47511449) Sciatica (M54.30) Active co nfirmed Problem Essential hypertension (50978948) Essential hypertension (I10) Active confirmed Problem Diverticulitis (46866561) Diverticulitis (K57.92) Active confirmed Problem Alopecia (17474518) Hair loss (L65.9) Active co nfirmed Problem Bandemia (158844090) Bandemia (D72.825) Active confirmed Problem Mixed hyperlipidemia (615871368) Mixed hyperlipidemia (E78.2) Active confirmed Problem Hyperlipidemia (31994782) Other hyperlipidemia (E78.4) Active confirmed Problem Chronic pain (94395721) Other chronic pain (G89.29) Active confirmed Problem Chronic maxillary sinusitis (50622737) Chronic maxillary sinusitis (J32.0) Active confirmed Problem Centrilobular emphysema (86934718) Centrilobular emphysema (J43.2) Active confirmed Problem Anosmia (77663638) Anosmia (R43.0) Active confi rmed Problem Prosthetic breast implant (physical object) (5763443) Breast implant status (Z98.82) Active confirmed Problem Constipation by delayed colonic transit (13542250) Constipation by delayed colonic transit (K59.01) Active confirmed Problem Myositis (87568299) Myofasciitis (M60.9) Active confirmed Problem Lipomatosis (109103306) 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) Active confirmed Problem History of cholecystectomy (137752389) Status post cholecystectomy (Z90.49) Active confirmed Problem History of repair of hip joint (097394115) Hip joint replacement status (Z96.649) Active confirmed Problem Spondylolisthesis (975471010) Spondylolisthesis (M43.10) Active confirmed Problem Aortic valve sclerosis (25582312) Aortic valve sclerosis (I35.8) Active confirmed Problem Postprocedural states (317326395) History of back surgery (Z98.890) Active confirmed Problem Mixed incontinence (822893923) 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.46) Active confirmed Problem Calcific coronary arteriosclerosis (91246528) Calcific coronary arteriosclerosis (I25.10) Active confirmed Problem Arthralgia of temporomandibular joint (73640727) 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) Active confirmed Problem Pedal edema (989675061) Pedal edema (R60.0) Active confirmed Problem Moderate persist ent asthmatic bronchitis with exacerbation (J45.41) Active confirmed Problem History of colorectal cancer (7742821767) History of colorectal cancer (Z85.038) Active confirmed Problem Cyanosis (4239847) Extremity cya nosis (R23.0) Active confirmed Problem Breast implant rupture, initial encounter (T85.43XA) Active confirmed Problem Breast implant rupture, subsequent encounter (T85.43XD) Active confirmed Vital Signs Heart Rate 80 /min 03/29/2025 Blood pressure diastolic 62 mm Hg 03/29/2025 Height 66 in 03/29/2025 Blood pressure systolic 102 mm Hg 03/29/2025 Weight 149.2 lbs 03/29/2025 BMI 24.08 kg/m2 03/29/2025 Encounters Encounter Location Date Provider Diagnosis [facility] [address] [facility] [address] [place], [place] [id number] 04/16/2024 J Gabriel Karthik Bronchitis J40 and COVID-19 U07.1 [facility] [address] [place], [place] [id number] 05/28/2024 J Gabriel Karthik Essential hypertensi on I10 ; Other chronic pain G89.29 ; Centrilobular emphysema J43.2 ; Persistent cough R05.3 and Actinic keratosis L57.0 [facility] [address] [facility] [address] [place], [place] [id number] 08/06/2024 J Gabriel Karthik Persistent cough R05 .3 [facility] [address] [place] [id number] 08/27/2024 J Gabriel Karthik Bronchitis J40 [facility] [address] [place] [id number] 09/07/2024 J Gabriel Karthik Essential hypertensi on I10 ; Bronchitis J40 ; Diverticulitis K57.92 and Bandemia D72.825 [facility] [address] [facility] [address] [place], [place] [id number] 09/21/2024 J Gabriel Karthik Essential hypertensi on I10 ; Centrilobular emphysema J43.2 and Bandemia D72.825 [facility] [address] [place] [id number] 11/23/2024 J Gabriel Angeles Hair loss L65.9 and Essential hypertension I10 [facility] [address] [place] [id number] 02/01/2025 J Gabriel Angeles Symptomatic cholelithiasis K80.20 [facility] [address] [place] [id number] 03/29/2025 J Gabriel Angeles Essential hypertensi on I10 ; Status post cholecystectomy Z90.49 ; Other chronic pain G89.29 ; Centrilobular emphysema J43.2 and History of colorectal cancer Z85.038 [facility] [address] [facility] [address] [place], [place] [id number] 01/14/2025 J Gabriel Angeles Dyspepsia R10.13 ; Centrilobular emphysema J43.2 and BMI 25.0-25.9,adult Z68.25 [facility] [address] [place], [place] [id number] 04/20/2024 J Gabriel Angeles [facility] [address] [place] [id number] 2024 J Gabriel Angeles [facility] [address] [place] [id number] 2024 J Gabriel Angeles [facility] [address] [place] [id number] 2024 J Gabriel Angeles [facility] [address] [place] [id number] 08/11/2024 J Gabriel Angeles [facility] [address] [place], [place] [id number] 08/19/2024 J Gabriel Angeles Essential hypertensi on I10 [facility] [address] [place] [id number] 08/25/2024 J Gabriel Angeles [facility] [address] [place] [id number] 08/28/2024 Kathryn Angeles [facility] [address] [place] [id number] 09/24/2024 Kathryn Angeles [facility] [address] [place] [id number] 01/22/2025 Kathryn Angeles [facility] [address] [place] [id number] 02/05/2025 Kathryn Angeles Assessments Encounter Date Diagnosis (ICD Code) Assessment Notes Treatment Notes Treatment Clinical Notes Section Notes 04/16/2024 Bronchitis (ICD-10 - J40) Trelegy inhaler [...] daily 01/14/2025 Centrilobular emphysema (ICD-10 - J43.2) 02/01/2025 Symptomatic cholelithiasis (ICD-10 - K80.20) CONT RX. AWAIT CONSULTATION 03/29/2025 Essential hypertension (ICD-10 - I10) 09/07/2024 Bronchitis (ICD-10 - J40) continue current therapy 09/21/2024 Essential hypertension (ICD-10 - I10) 03/29/2025 Status post cholecystectomy (ICD-10 - Z90.49) 09/21/2024 Bandemia (ICD-10 - D72.825) 03/29/2025 Other chronic pain (ICD-10 - G89.29) 01/14/2025 BMI 25.0-25.9,adult (ICD-10 - Z68.25) 09/07/2024 Diverticulitis (ICD-10 - K57.92) 05/28/2024 Centrilobular emphysema (ICD-10 - J43.2) 05/28/2024 Persistent cough (ICD-10 - R05.3) 09/07/2024 Bandemia (ICD-10 - D72.825) 03/29/2025 Centrilobular emphysema (ICD-10 - J43.2) 03/29/2025 History of colorectal cancer (ICD-10 - Z85.038) 05/28/2024 Actinic keratosis (ICD-10 - L57.0) Plan Of Treatment Pending Test Test Name Order Date LC-Carcinoembryonic Antigen 05/30/2021 P-Comprehensive Metabolic Panel (CMP) Next Appt Details Provider Name:Kathryn Rios Gorge er, 05/31/2025 04:00:00 PM, [address], [address], [place], [place], [id number], Insurance Providers Payer Name Payer Address Payer Phone Subscriber Number Group Number Insured Name Patient Relationship to Insured Coverage Start Date Coverage End Date MEDICARE PART B [address] [address] [place] [address] [id number] BAMBI EAST Self - patient is the insured [employer] MEDICARE SUPPLEMENT [address] [address] [place], [place] [id number] BAMBI EAST Self - patient is the [...] Dr. Frazier 09/10/2019 Hospitalization History Reason Date(Month/Year) [facility] ER-fall 06/06 kidney stone 02/2011
--- OUTSIDE RECORDS SUMMARY | 2025-04-01 13:51 | XMS_ITS | Encounter Summary ---
Author Organization [facility] Address [address] [place] [address] Care Team Providers Care Slide Forming Machine Operator Name Role Phone Nate Mills MD Primary Care Provider [phone] Efrain Angeles MD Primary Care Provider [phone] Encounter Details Date Type Department Care Team (Late st Contact Info) Description 03/20/2021 Orders Only [facility] @ [address] [phone] Ebony Albrecht MD [address] [address] Social History Tobacco Use Types [...] Description 04/26/2025 10:30 AM EDT Office Visit [facility] [address] [place] [phone] 04/26/2025 11:30 AM EDT Office Visit [facility] [address] [place] [phone] Ebony Albrecht MD [address] [facility] [address] [place] [phone] documented as of this encounter Procedures Procedure Name Priority Date/Time Associated Diagnosis Comments CBC WITH AUTO DIFFERENTIAL Routine 03/20/2021 9:07 AM EDT documented in this encounter Results * (ABNORMAL) CBC and Differential (03/20/2021 9:07 AM EDT) External WBC 10.7 3.8 - 10.8 K/uL [facility] External Red Blood Cell (RBC) 4.31 3.80 - 5.20 M/uL [facility] External Hemoglobin 13.7 12.0 - 16.0 G/DL [facility] External Hematocrit 39.4 35.0 - 47.0 % [facility] External MCV 91 80 - 100 fL [facility] External MCH 32 26 - 35 PG [facility] External MCHC 35 32 - 36 G/DL [facility] External RDW 13.1 11.0 - 15.0 % [facility] External Mean Platelet Volume 9.4 6.2 - 10.5 fL [facility] External Platelets 264 130 - 400 K/uL [facility] External Neutrophil# 6.0 1.6 - 8.4 K/uL [facility] External Lymphocyte# 2.8 0.4 - 5.1 K/uL [facility] External Absolute Monocyte (Abs [place]) 0.7 0.0 - 1.2 K/uL [facility] External Eosinophils# 1.1(H) 0.0 - 0.8 K/uL [facility] External Baso# 0.1 0.0 - 0.3 K/uL [facility] External Neutrophils % 56.2 42.0 - 78.0 % [facility] External Lymphocyte % 26.2 11.0 - 47.0 % [facility] External Monocyte % 6.2 0.0 - 11.0 % [facility] External Eosinophil% 10.6(H) 0.0 - 7.0 % [facility] External Basophil % 0.8 0.0 - 3.0 % [facility] External Nucleated RBC%-Auto 0.0 0.0 - 0.9 % [facility] External Nucleated RBC Absolute 0.00 Not Estab. K/uL [facility] 03/20/2021 9:07 AM EDT 03/20/2021 9:25 AM EDT us Ebony Albrecht MD LAB BLOOD ORDERABLES Final Re sult Performing Organization Address City/State/[facility] Co de Phone Number [facility] [address] [place] [address], documented in this encounter Visit Diagnoses Not on filedocumented in this encounter Care Teams Slide Forming Machine Operator Relationship Specialty Start Date End Date Nate Mills MD [address] [facility] [address] [place] [address] PCP - General 09/23/20 04/02/24 Efrain Angeles MD [address] [facility] [address] [place] [id number] PCP - General 04/03/24 documented as of this encounter
--- OUTSIDE RECORDS SUMMARY | 2025-04-01 13:51 | XMS_ITS | Encounter Summary ---
Author Organization [facility] Address [address] [place] [address] Care Team Providers Care Director Government Name Role Phone Nate Mills MD Primary Care Provider [phone] Efrain Angeles MD Primary Care Provider [phone] Encounter Details Date Type Department Care Team (Late st Contact Info) Description 03/23/2022 Orders Only [facility] [address] [place] [phone] Ebony Albrecht MD [address] [place] [address] Social History Tobacco Use Types [...] Description 04/26/2025 10:30 AM EDT Office Visit [facility] [address] [place] [phone] 04/26/2025 11:30 AM EDT Office Visit [facility] [address] [place] [phone] Ebony Albrecht MD [address] [facility] [address] [place] [address] documented as of this encounter Procedures Procedure Name Priority Date/Time Associated Diagnosis Comments CEA, SERUM Routine 03/23/2022 9:07 AM EDT documented in this encounter Results * CEA, Serum (03/23/2022 9:07 AM EDT) External Carcinoembryonic Antigen 4.2 0.0 - 4.7 ng/mL [facility] Comment: This test was performed using the Abdelrahman Awilda E801 electrochemiluminescent method. Values obtained from different assay methods cannot be used interchangeably. . 03/23/2022 9:07 AM EDT 03/23/2022 9:25 AM EDT us Ebony Albrecht MD LAB BLOOD ORDERABLES Final Re sult [facility] [address] [place] [address], documented in this encounter Visit Diagnoses Not on filedocumented in this encounter Care Teams Director Government Relationship Specialty Start Date End Date Nate Mills MD 12[address] [facility] [address] [place] [address] PCP - General 09/23/20 04/02/24 Efrain Angeles MD [address] [facility] [address] [place] [address] PCP - General 04/03/24 documented as of this encounter
--- OUTSIDE RECORDS SUMMARY | 2025-04-01 13:51 | XMS_ITS | Encounter Summary ---
Author Organization [facility] Address [address] [place] [address] Care Team Providers Care Volunteer Recruitment Coordinator Name Role Phone Nate Mills MD Primary Care Provider [phone] Efrain Angeles MD Primary Care Provider [phone] Encounter Details Date Type Department Care Team (Late st Contact Info) Description 03/20/2021 Orders Only [facility] @ [address] [phone] Ebony Albrecht MD [address] [address] Social History Tobacco Use Types [...] Office Visit [facility] [address] [place] [phone] 04/26/2025 11:30 AM EDT Office Visit [facility] [address] [place] [phone] Ebony Albrecht MD [address] [phone] documented as of this encounter Procedures Procedure Name Priority Date/Time Associated Diagnosis Comments COMPREHENSIVE METABOLIC PANEL, PLASMA Routine 03/20/2021 9:07 AM EDT documented in this encounter Results * (ABNORMAL) Comprehensive Metabolic Panel, Plasma (03/20/2021 9:07 AM EDT) External Glucose 91 74 - 100 mg/dL [facility] External BUN 18 6 - 20 mg/dL [facility] External Creatinine Blood 0.69 0.50 - 0.95 mg/dL [facility] External BUN/Creat Ratio 26(H) 10 - 20 (calc) [facility] External Sodium 143 136 - 145 mmol/L [facility] External Potassium 3.8 3.4 - 5.0 mmol/L [facility] External Chloride 104 98 - 107 mmol/L [facility] External Carbon Dioxide 29 22 - 31 mmol/L [facility] External Anion Gap (AG) 10 7 - 25 (calc) [facility] External Calcium 10.0 8.6 - 10.2 mg/dL [facility] External Total Protein 6.8 6.4 - 8.3 g/dL [facility] External Albumin 4.2 3.5 - 5.2 g/dL [facility] External Globulin 2.6 1.5 - 4.5 g/dL (calc) [facility] External Albumin/Globulin Ratio 1.6 1.1 - 2.5 (calc) [facility] External Bilirubin Total 0.4 0.1 - 1.2 mg/dL [facility] External Alkaline Phosphatase 98 35 - 106 U/L [facility] External AST (SGOT) 21 0 - 32 U/L [facility] External ALT (SGPT) 16 0 - 33 U/L [facility] External EGFR (If AFR/AM) 101 >=60 [facility] External Estimated GFR 87 >=60 [facility] Comment: NOTE Chronic kidney disease [...] MD LAB BLOOD ORDERABLES Final Re sult [facility] [address] [place] [address], documented in this encounter Visit Diagnoses Not on filedocumented in this encounter Care Teams Volunteer Recruitment Coordinator Relationship Specialty Start Date End Date Nate Mills MD [address] [facility] [address] [place] [address] PCP - General 09/23/20 04/02/24 Efrain Angeles MD 1210 [facility] [address] [place] [address] PCP - General 04/03/24 documented as of this encounter
--- OUTSIDE RECORDS SUMMARY | 2025-04-01 13:51 | XMS_ITS | Clinical Summary ---
Author Organization [employer] ([place], [place], [place], [place]) Address [address] [place] [address] Care Team Providers Care Zipper Cutter Name Role Phone Unavailable Primary Care Provider [...] of breast cancer COMPARISON STUDIES: [facility] [phone]; no significant change. FINDINGS: Craniocaudal and mediolateral [...] annual screening mammography. At our facility, a tangirnaq marker is positioned over a visible skin [...] of breast cancer COMPARISON STUDIES: [facility] [phone]; no significant change. FINDINGS: Craniocaudal and mediolateral [...] annual screening mammography. At our facility, a tangirnaq marker is positioned over a visible skin [...]
--- OUTSIDE RECORDS SUMMARY | 2025-04-01 13:51 | XMS_ITS | Encounter Summary ---
Author Organization [facility] Address [address] [place] [address] Care Team Providers Care Sales Floor Associate Name Role Phone Nate Mills MD Primary Care Provider [phone] Efrain Angeles MD Primary Care Provider [phone] Encounter Details Date Type Department Care Team (Late st Contact Info) Description 03/14/2021 Orders Only [facility] [address] [place] [phone] Efrain La PA [address] [place] [address] Social History Tobacco Use Types [...] Description 04/26/2025 10:30 AM EDT Office Visit [facility] [address] [place] [phone] 04/26/2025 11:30 AM EDT Office Visit [facility] [address] [place] [phone] Ebony Albrecht MD 5 [facility] [address] [place] [address] documented as of this encounter Procedures Procedure Name Priority Date/Time Associated Diagnosis Comments D DIMER, QUANTITATIVE Routine 03/14/2021 1:48 PM EDT documented in this encounter Results * (ABNORMAL) D DIMER, QUANTITATIVE (03/14/2021 1:48 PM EDT) External D-Dimer 1.12(H) <0.50 mcg/mL [facility] Comment: The D-Dimer test is [...] 11:295(2):199-207] For additional information, please refer to: http://education.EventCombo/faq/ZBO271 (This link is being provided for informational/ educational purposes only) TEST PERFORMED AT: [employer] [address] [id number] HARVINDER CULVER M.D. 03/14/2021 1:48 PM EDT 03/14/2021 2:38 PM EDT us Efrain KIRBY LAB BLOOD ORDERABLES Final R esult [facility] [address] [place] [address], documented in this encounter Visit Diagnoses Not on filedocumented in this encounter Care Teams Sales Floor Associate Relationship Specialty Start Date End Date Nate Mills MD 1210 [facility] [address] [place] [address] PCP - General 09/23/20 04/02/24 Efrain Angeles MD [address] [facility] [address] [place] [address] PCP - General 04/03/24 documented as of this encounter
--- OUTSIDE RECORDS SUMMARY | 2025-04-01 13:51 | XMS_ITS | Encounter Summary ---
Author Organization [facility] Address [address] [place] [address] Care Team Providers Care Civil Attorney Name Role Phone Nate Mills MD Primary Care Provider [phone] Efrain Angeles MD Primary Care Provider [phone] Encounter Details Date Type Department Care Team (Late st Contact Info) Description 03/23/2022 Orders Only [facility] [address] [place] [phone] Ebony Albrecht MD [address] [address] Social History Tobacco Use Types [...] Description 04/26/2025 10:30 AM EDT Office Visit [facility] [address] [place] [phone] 04/26/2025 11:30 AM EDT Office Visit [facility] [address] [place] [phone] Ebony Albrecht MD 2[address] [facility] [address] [place] [phone] documented as of this encounter Procedures Procedure Name Priority Date/Time Associated Diagnosis Comments CBC WITH AUTO DIFFERENTIAL Routine 03/23/2022 9:07 AM EDT documented in this encounter Results * (ABNORMAL) CBC and Differential (03/23/2022 9:07 AM EDT) External WBC 14.0(H) 3.8 - 10.8 K/uL [facility] External Red Blood Cell (RBC) 4.33 3.80 - 5.20 M/uL [facility] External Hemoglobin 13.3 12.0 - 16.0 G/DL [facility] External Hematocrit 39.2 35.0 - 47.0 % [facility] External MCV 91 80 - 100 fL [facility] External MCH 31 26 - 35 PG [facility] External MCHC 34 32 - 36 G/DL [facility] External RDW 13.2 11.0 - 15.0 % [facility] External Mean Platelet Volume 9.6 6.2 - 10.5 fL [facility] External Platelets 248 130 - 400 K/uL [facility] External Neutrophil# 9.3(H) 1.6 - 8.4 K/uL [facility] External Lymphocyte# 3.0 0.4 - 5.1 K/uL [facility] External Absolute Monocyte (Abs [place]) 0.7 0.0 - 1.2 K/uL [facility] External Eosinophils# 0.8 0.0 - 0.8 K/uL [facility] External Baso# 0.2 0.0 - 0.3 K/uL [facility] External Neutrophils % 66.7 42.0 - 78.0 % [facility] External Lymphocyte % 21.2 11.0 - 47.0 % [facility] External Monocyte % 5.1 0.0 - 11.0 % [facility] External Eosinophil% 5.8 0.0 - 7.0 % [facility] External Basophil % 1.2 0.0 - 3.0 % [facility] External Nucleated RBC%-Auto 0.1 0.0 - 0.9 % [facility] External Nucleated RBC Absolute 0.01 Not Estab. K/uL [facility] 03/23/2022 9:07 AM EDT 03/23/2022 9:25 AM EDT us Ebony Albrecht MD LAB BLOOD ORDERABLES Final Re sult [facility] [address] [place] [address], documented in this encounter Visit Diagnoses Not on filedocumented in this encounter Care Teams Civil Attorney Relationship Specialty Start Date End Date Nate Mills MD [address] [facility] [address] [place] [address] PCP - General 09/23/20 04/02/24 Efrain Angeles MD 1210 [facility] [address] [place] [id number] PCP - General 04/03/24 documented as of this encounter
--- OUTSIDE RECORDS SUMMARY | 2025-04-01 13:51 | XMS_ITS | Referral Summary ---
Author Organization [employer] ([place], [place], [place], [place]) Address [address] [place] [address] Care Team Providers Care Supervisor Billposting Name Role Phone Unavailable Primary Care Provider [...] family history of breast cancer COMPARISON STUDIES: Psychiatric [phone]; no significant change. FINDINGS: Craniocaudal and mediolateral [...] annual screening mammography. At our facility, a jackson marker is positioned over a visible skin [...] family history of breast cancer COMPARISON STUDIES: Psychiatric [phone]; no significant change. FINDINGS: Craniocaudal and mediolateral [...] annual screening mammography. At our facility, a jackson marker is positioned over a visible skin [...] for the next mammogram. Sandrine Mckeon MD [facility] ORDERABLES F inal Result from Last 3 Months or Most Recently Relevant to Health Maintenance Insurance MEDICARE PART A B
--- OUTSIDE RECORDS SUMMARY | 2025-04-01 13:51 | XMS_ITS | Encounter Summary ---
Author Organization [facility] Address [address] [address] Care Team Providers Care Public Housing Manager Name Role Phone Nate Mills MD Primary Care Provider [phone] Efrain Angeles MD Primary Care Provider [phone] Encounter Details Date Type Department Care Team (Late st Contact Info) Description 03/23/2022 Orders Only [facility] [address] [place] [phone] Ebony Albrecht MD [address] [phone] Social History Tobacco Use Types [...] EDT Office Visit [facility] [address] [place] [phone] 04/26/2025 11:30 AM EDT Office Visit [facility] [address] [place] [phone] Ebony Albrecht MD 2[address] [facility] [address] [place] [phone] documented as of this encounter Procedures Procedure Name Priority Date/Time Associated Diagnosis Comments COMPREHENSIVE METABOLIC PANEL, PLASMA Routine 03/23/2022 9:07 AM EDT documented in this encounter Results * (ABNORMAL) Comprehensive Metabolic Panel, Plasma (03/23/2022 9:07 AM EDT) External Glucose 116(H) 74 - 100 mg/dL [facility] External BUN 15 6 - 20 mg/dL [facility] External Creatinine Blood 0.67 0.50 - 0.95 mg/dL [facility] External BUN/Creat Ratio 22(H) 10 - 20 (calc) [facility] External Sodium 141 136 - 145 mmol/L [facility] External Potassium 3.3(L) 3.4 - 5.0 mmol/L [facility] External Chloride 103 98 - 107 mmol/L [facility] External Carbon Dioxide 27 22 - 31 mmol/L [facility] External Anion Gap (AG) 11 7 - 25 (calc) [facility] External Calcium 9.5 8.6 - 10.2 mg/dL [facility] External Total Protein 7.0 6.4 - 8.3 g/dL [facility] External Albumin 4.2 3.5 - 5.2 g/dL [facility] External Globulin 2.8 1.5 - 4.5 g/dL (calc) [facility] External Albumin/Globulin Ratio 1.5 1.1 - 2.5 (calc) [facility] External Bilirubin Total 0.4 0.1 - 1.2 mg/dL [facility] External Alkaline Phosphatase 104 30 - 121 U/L [facility] External AST (SGOT) 19 0 - 32 U/L [facility] External ALT (SGPT) 17 0 - 33 U/L [facility] External Estimated GFR 92 >=60 [facility] Comment: NOTE New calculation for GFR (CKD-EPI 2020) is formulated without race adjustment factors at the recommendation of the National Kidney Foundation and [place] [employer]ph[employer]. This calculation has not been validated in women. For pediatric patients refer to https://www.kidney.org/professionals/KDOQI/gfr_calculatorPed 03/23/2022 9:07 AM EDT 03/23/2022 9:25 AM EDT us Ebony Albrecht MD LAB BLOOD ORDERABLES Final Re sult Performing Organization Address City/State/[place] Co de Phone Number [facility] [address] [place] [address], documented in this encounter Visit Diagnoses Not on filedocumented in this encounter Care Teams Public Housing Manager Relationship Specialty Start Date End Date Nate Mills MD 1210 [facility] [address] [place] [address] PCP - General 09/23/20 04/02/24 Efrain Angeles MD 1210 [facility] [address] [place] [address] PCP - General 04/03/24 documented as of this encounter
--- OUTSIDE RECORDS SUMMARY | 2025-04-01 13:51 | XMS_ITS | Encounter Summary ---
Author Organization [employer] ([place], [place], [place], [place]) Address [address] [place] [address] Care Team Providers Care Hospital Pharmacy Director Name Role Phone Unavailable Primary Care Provider Unavailabl e Reason for Referral * Diagnostic X-Ray (Emergency) - New Request Specialty Diagnoses / Procedures Referred By Jose tay Referred To Contact Diagnoses Calculus of kidney Procedures X-ray abdomen KUB 1 view Jordin Isabel MD [address] [place] [address] [address] [place] [address] Phone: tel: fax: Referral ID Status Reason Start Date Expiration Date V isits Requested Visits Authorized [id number] New Request 09/02/2024 09/02/2025 1 1 Encounter Details Date Type Department Care Team (Late st Contact Info) Description 09/02/2024 Outside Orders [facility] - [address] [place] [phone] Jordin Isabel MD [address] [place] [address] [address] [place] [address] Calculus of kidney (Primary Dx) Social History [...]
--- OUTSIDE RECORDS SUMMARY | 2025-04-01 13:51 | XMS_ITS | Encounter Summary ---
Author Organization [facility] Address [address] [place] [address] Care Team Providers Care Installation Technician Name Role Phone Nate Mills MD Primary Care Provider [phone] Efrain Angeles MD Primary Care Provider [phone] Encounter Details Date Type Department Care Team (Late st Contact Info) Description 03/14/2021 [facility] [address] [place] [phone] Efrain La PA [address] [place] [address] Social History Tobacco Use Types [...] 04/26/2025 10:30 AM EDT Office Visit [facility] [address] [place] [phone] 04/26/2025 11:30 AM EDT Office Visit [facility] [address] [place] [phone] Ebony Albrecht MD 5 [facility] [address]nd [place] [address] documented as of this encounter Procedures Procedure Name Priority Date/Time Associated Diagnosis Comments C-REACTIVE PROTEIN, PLASMA Routine 03/14/2021 1:48 PM EDT documented in this encounter Results * C-Reactive Protein, Plasma (03/14/2021 1:48 PM EDT) External C-Reactive Protein 0.15 0.00 - 0.49 mg/dL [facility] 03/14/2021 1:48 PM EDT 03/14/2021 2:09 PM EDT us Efrain KIRBY LAB BLOOD ORDERABLES Final R esult [facility] [address] [place] [address], documented in this encounter Visit Diagnoses Not on filedocumented in this encounter Care Teams Installation Technician Relationship Specialty Start Date End Date Nate Mills MD 1210 [facility] [address] [place] [address] PCP - General 09/23/20 04/02/24 Efrain Angeles MD 1210 [facility] [address] [place] [address] PCP - General 04/03/24 documented as of this encounter
--- OUTSIDE RECORDS SUMMARY | 2025-04-01 13:51 | XMS_ITS | Encounter Summary ---
Author Organization [facility] Address [address] [place] [address] Care Team Providers Care Hearing Consultant Name Role Phone Nate Mills MD Primary Care Provider [phone] Efrain Angeles MD Primary Care Provider [phone] Encounter Details Date Type Department Care Team (Late st Contact Info) Description 03/14/2021 [facility] [address] [place] [address] [phone] Efrain La PA [address] [place] [address] Social History Tobacco Use Types [...] Description 04/26/2025 10:30 AM EDT Office Visit [facility] [address] [place] [phone] 04/26/2025 11:30 AM EDT Office Visit [facility] [address] [place] [phone] Ebony Albrecht MD [address] [facility] [address] [place] [address] documented as of this encounter Procedures Procedure Name Priority Date/Time Associated Diagnosis Comments SEDIMENTATION RATE, AUTOMATED Routine 03/14/2021 1:48 PM EDT documented in this encounter Results * Sedimentation Rate, Automated (03/14/2021 1:48 PM EDT) External Erythrocyte Sedimentation Rate 25 0 - 29 MM/HR [facility] 03/14/2021 1:48 PM EDT 03/14/2021 2:10 PM EDT Efrain KIRBY LAB BLOOD ORDERABLES Final R esult Performing Organization Address City/State/[facility] Co de Phone Number [facility] [address] [place] [address], documented in this encounter Visit Diagnoses Not on filedocumented in this encounter Care Teams Hearing Consultant Relationship Specialty Start Date End Date Nate Mills MD 1210 [facility] [address] [place] [id number] PCP - General 09/23/20 04/02/24 Efrain Angeles MD 1210 [facility] [address] [place] [id number] PCP - General 04/03/24 documented as of this encounter
--- NOTE | 2025-04-01 13:54 | XR_ITS ---
FINAL REPORT CLINICAL HISTORY: Epigastric pain COMPARISON: None FINDINGS: The heart size is normal. The mediastinum is normal. The lungs are underinflated. Scarring is noted at the lung bases. No acute infiltrate. There are no pleural effusions. There is no pneumothorax. There is no osseous abnormality. There is a subglandular breast implant on the left. IMPRESSION: No acute cardiopulmonary process Reviewed, Interpreted and Dictated by Juan Manuel Ramos MD Transcribed by Bonnie Ward Authenticated and [facility]
--- NOTE | 2025-04-01 13:54 | CT_ITS ---
FINAL REPORT TECHNIQUE: After the administration of oral and intravenous contrast, axial images were obtained through the abdomen and pelvis by computed tomography. The study was performed with techniques to keep radiation dose as low as reasonably achievable, (ALARA). Individual dose reduction techniques using automated exposure control or adjustment of mA and/or kV according to the patient's size were employed. CLINICAL HISTORY: Abdominal pain COMPARISON: 03/01/2025 FINDINGS: Abdomen: There are bilateral subglandular breast implants. There is a fluid collection along the lateral margin of the right implant measuring 4.1 x 2.8 cm, probably due to a seroma. There is a small amount of intraperitoneal free air. Finding is new since previous. There is a trace amount of ascites present. The spleen, pancreas, adrenals, and kidneys appear unremarkable. There is significant mucosal thickening in the gastric antrum extending to the pylorus. The may be a few small enlarged lymph nodes present. Lymph nodes measure up to 11 mm. There has been interval cholecystectomy. Pelvis: There are postoperative changes at the base of the cecum. There is extensive descending and sigmoid diverticulosis without evidence of diverticulitis. There is streak artifact from bilateral hip prostheses. IMPRESSION: Interval cholecystectomy. Small amount of ascites and intraperitoneal free air. It is unclear if this is due to recent surgery or perforated viscus. Abnormal mucosal thickening of the gastric antrum extending into the pylorus with associated small lymph nodes. This may be inflammatory or neoplastic. Upper endoscopy is highly recommended. Мария Day, charge nurse was notified of findings on 04/01/2025 at 3:27 PM. Reviewed, Interpreted and Dictated by Juan Manuel Ramos MD Transcribed by Paz Martinez Authenticated and [facility]
[2025-04-01 14:02] LABS: Hematocrit 39.3 % (37.0-47.0); Hemoglobin 13.1 g/dL (12.2-16.2); Mean Corpuscular HGB Conc 33.3 g/dL (31.8-35.4); Mean Corpuscular Hemoglobin 30.5 pg (27.0-31.2); Mean Corpuscular Volume 91.4 fl (81-99); Platelet Count 397 K/mm3 (142-424); Red Blood Count 4.30 M/mm3 (4.20-5.40); White Blood Count 14.6 K/mm3 (4.8-10.8)
[2025-04-01 14:16] LABS: Alanine Aminotransferase 27 U/L (12-78); Albumin Level 4.0 g/dl (3.5-5.0); Albumin/Globulin Ratio 1.3 (1.1-1.8); Alkaline Phosphatase 192 U/L (38-126); Anion Gap 15.6 mEq/L (5-15); Aspartate Amino Transferase 27 U/L (14-36); Bilirubin,Total 0.5 mg/dl (0.2-1.3); Blood Urea Nitrogen 28 mg/dl (7-17); Calcium 9.7 mg/dl (8.4-10.2); Carbon Dioxide 28 mmol/L (22.0-30.0); Chloride 99 mmol/L (98-107); Creatinine Clearance Estimated 47 mL/min (50-200); Creatinine,Serum 1.10 mg/dl (0.52-1.04); Estimated Glomerular Filt Rate 48 ml/min (>60); GFR (African American) 59 ML/MIN (>60); Globulin 3.1 g/dL (1.3-3.2); Glucose 153 mg/dl (74-100); Lipase 91 U/L (23-300); Potassium 3.6 mmoL/L (3.5-5.1); Sodium 139 mmol/L (136-145); Total Protein,Serum 7.1 g/dl (6.3-8.2)
--- NOTE | 2025-04-01 14:25 | PC.NURSE ---
Patient refused Morphine and Dr. Chay Shepard updated.
[2025-04-01 14:26] LABS: Troponin I 0.18 ng/ml (0.00-0.034)
[2025-04-01] MEDS: SODIUM CHLORIDE 0.9% 10ML SYR (RAD ONLY) 10 ML IV (14:26)
[2025-04-01] MEDS: IOPAMIDOL-370 (76%);100ML BOTTLE 75 ML IV (14:26)
--- NOTE | 2025-04-01 14:43 | ECG_ITS ---
APPROVED REPORT Exam: Resting ECG HR:90 bpm ECG Measurements Heart Rate 90 AXES MN 186 P 68 QRSd 90 QRS 51 QT 343 T 53 QTc 391 Conclusion SINUS RHYTHM Significant artifact limits interpretation of this EKG Grossly, no ST elevation Electronically signed by : Marbin Cartwright, 04/01/2025 16:46:45
[2025-04-01 15:25] LABS: Total Cells Counted 100
[2025-04-01 15:26] LABS: RBC Morphology Normal
--- NOTE | 2025-04-01 15:26 | PC.NURSE ---
ABNORMAL FINDINGS ON CT SCAN, REPORTED TO DR SORIA. SURGEON CONTACTED AT THIS TIME
--- NOTE | 2025-04-01 15:31 | PC.NURSE ---
MESSAGE LEFT WITH GENERAL SURGERY TO CALL ED MD ABOUT PT
[2025-04-01 15:33] LABS: Hepatitis C Ab Qual. W/ RFX NEGATIVE (Negative)
--- NOTE | 2025-04-01 15:46 | HMH.EDGENADL ---
Discharge Plan Disposition Patient Disposition: Still a Patient Condition: Fair Clinical Impressions Clinical Impression: Gastric ulcer, Perforated gastric ulcer, Non-ST elevation CO (NSTEMI) Discharge ED Provider: Marbin Cartwright General Adult HPI <Suresh Moss MD - Last Filed: 04/02/25 01:39> General Chief complaint: Abdominal Pain Stated complaint: abdomin pain, Time Seen by Provider: 04/01/25 13:30 Related Data Home Medications ?Medication ?Instructions ?Recorded ?Confirmed losartan 50 mg tablet 50 mg PO DAILY 03/19/24 04/01/25 potassium chloride 10 mEq 10 meq PO DAILY 03/19/24 03/31/25 tablet,extended release rosuvastatin 10 mg tablet 10 mg PO DAILY 03/19/24 04/01/25 triamterene 37.5 1 tab PO DAILY 03/19/24 03/31/25 mg-hydrochlorothiazide 25 mg tablet vibegron 75 mg tablet (Gemtesa) 75 mg PO DAILY 03/19/24 03/31/25 aspirin 81 mg tablet,delayed 81 mg PO DAILY 11/18/24 04/01/25 release diclofenac sodium 100 mg 100 mg PO DAILY Pain 02/10/25 03/31/25 tablet,extended release 24 hr Bifidobacterium infantis 4 mg 4 mg PO DAILY 02/11/25 03/31/25 capsule (Align (B.infantis)) coenzyme Q10 50 mg capsule (Co 50 mg PO DAILY 03/17/25 03/31/25 Q-10) Allergies Allergy/AdvReac Type Severity Reaction Status Date / Time nickel Allergy Rash Verified 03/31/25 14:46 lysol Allergy Intermediate Swelling Uncoded 03/31/25 14:46 of Lip/Tongue/Throat <Marbin Cartwright DO - Last Filed: 04/01/25 16:58> General Mode of Arrival: Wheelchair Source of Information: Patient Description of Symptoms (Recalled from ER Triage Doc. by RN): pt presents to ED c/o abdominal pain t/o abdomen. pt states she had gallbladder surgery 1 week today and today she started having pain. pt denies fever, n/v/d. pt reports she saw Dr. Frazier yesterday and had lab work. History of Present Illness HPI narrative: This is a 74-year-old female patient, with past medical history of hypertension, hyperlipidemia, diastolic heart dysfunction, and resolved colon cancer status post colectomy, who is presented to the emergency department today for evaluation of severe epigastric abdominal pain. The patient underwent a cholecystectomy with Dr. Kauffman on 03/25/2025. She states that she was healing well and was in her usual state of health until earlier today when she was sitting on her couch and began experiencing severe tearing epigastric pain. She states her pain has persisted since that time and has been unrelenting in severity. She has not attempted to eat since the onset of her pain. She does not describe a sensation of the pain radiating into her chest. She does not report shortness of breath. She states that she has been producing bowel movements since her surgery and she has not noticed any hematochezia. She has not experienced any nausea or vomiting or hematemesis. [facility] <Suresh Moss MD - Last Filed: 04/02/25 01:39> [facility] Medical History (Updated 04/02/25 @ 01:38 by Suresh Moss MD) Impacted cerumen of right ear History of deviated nasal septum Cancer Urinary tract infection Kidney stone Hyperlipidemia Hypertension History of colon cancer Cataract Hearing loss, bilateral Tinnitus, bilateral Bilateral impacted cerumen Coronary artery calcification seen on CAT scan Former smoker Palpitations Diastolic dysfunction Abnormal echocardiogram Surgical History History of laparoscopic cholecystectomy History of cataract surgery History of eye surgery History of spinal fusion Hx of tonsillectomy H/O colonoscopy H/O hemicolectomy S/P hip replacement Family History Other Family history of cancer Family history of coronary artery disease Social History (Updated 04/01/25 @ 23:08 by Gloria Hernández RN) Smoking Status: Never smoker alcohol intake: never counseling provided: provider counseling substance use type: denies use current occupational status: employed Travel in the last 8 weeks?: None household members: none housing: house current occupation: [employer] current occupational exposures/hazards: No caffeine: Yes Have you lived/traveled outside [place] in past 30 days?: No Contact w/someone who lives/traveled outside US past 30 days?: No Exposure to someone with infectious disease in past 14 days?: No Do you have a fever (greater than 100.4 F or 38 C)?: No Have you tested positive for COVID-19?: No Exposed to someone with COVID-19 in past 14 days?: No Do you have a sore throat?: No Do you have a cough?: No Do you have any weakness?: No Are you experiencing any nausea/vomitting?: No Do you have any diarrhea?: No Are you experiencing any unusual bleeding?: No Do you have any muscle aches/pain?: No Do you have any abdominal pain?: Yes Are you experiencing loss of taste or smell?: No <Marbin Cartwright DO - Last Filed: 04/01/25 16:58> [facility] Disclaimer: The information contained in this section may have been updated after the patient was seen, as this information can be updated by other users. Other Medical History Have you received the Flu Vaccine for this season: Yes Have you received the Pneumonia Vaccine: No <Marbin Cartwright DO - Last Filed: 04/01/25 16:58> ROS Obtained: Yes Systems reviewed as appropriate & no additional complaints except as documented Physical Exam <Marbin Cartwright DO - Last Filed: 04/01/25 16:58> General General appearance: alert and in no apparent distress Head Head exam: atraumatic and normocephalic Eye Eye exam: Present normal appearance and PERRL ENT ENT exam: Present normal exam and normal oropharynx Neck Neck exam: Present normal inspection and full ROM Chest Chest inspection: Present normal inspection and symmetric chest wall rise Respiratory Respiratory exam: Present normal lung sounds bilaterally and respiratory distress Cardiovascular Cardiovascular exam: Present regular rate and normal rhythm Abdominal Exam Abdominal exam: Present tenderness and guarding Neurological Exam Neurological exam: Present alert and oriented X3 Medical Decision Making <Suresh Moss MD - Last Filed: 04/02/25 01:39> Vital Signs: 04/01/25 13:17 04/01/25 13:22 04/01/25 13:30 Temperature 97.4 F L Temperature Source Oral Pulse Rate 83 821 H Pulse Rate [Right Radial] 89 Respiratory Rate 18 18 19 Blood Pressure 130/67 128/70 Blood Pressure [Right Arm] 130/67 Blood Pressure Mean 95 96 Blood Pressure Mean [Right Arm] 88 Blood Pressure Source Blood Pressure Source [Right Arm] Automatic Cuff Blood Pressure Position Blood Pressure Position [Right Arm] Sitting 02 Sat by Pulse Oximetry 98 98 95 Oxygen Delivery Method Room Air Room Air Room Air 04/01/25 14:00 04/01/25 15:01 04/01/25 15:30 Temperature Temperature Source Pulse Rate 81 91 H 94 H Pulse Rate [Right Radial] Respiratory Rate 17 17 Blood Pressure 109/59 L 140/72 126/70 Blood Pressure [Right Arm] Blood Pressure Mean 81 94 Blood Pressure Mean [Right Arm] Blood Pressure Source Blood Pressure Source [Right Arm] Blood Pressure Position Blood Pressure Position [Right Arm] 02 Sat by Pulse Oximetry 98 98 97 Oxygen Delivery Method Room Air Room Air 04/01/25 15:45 04/01/25 16:00 04/01/25 16:30 Temperature 19 F L Temperature Source Pulse Rate 96 H 97 H 94 H Pulse Rate [Right Radial] Respiratory Rate 19 18 Blood Pressure 130/71 125/71 Blood Pressure [Right Arm] Blood Pressure Mean 90 86 Blood Pressure Mean [Right Arm] Blood Pressure Source Blood Pressure Source [Right Arm] Blood Pressure Position Blood Pressure Position [Right Arm] 02 Sat by Pulse Oximetry 100 98 100 Oxygen Delivery Method Room Air Room Air Room Air 04/01/25 17:00 04/01/25 17:30 04/01/25 18:00 Temperature Temperature Source Pulse Rate 105 H 99 H 98 H Pulse Rate [Right Radial] Respiratory Rate 22 18 Blood Pressure 126/85 115/68 115/64 Blood Pressure [Right Arm] Blood Pressure Mean 83 76 Blood Pressure Mean [Right Arm] Blood Pressure Source Blood Pressure Source [Right Arm] Blood Pressure Position Blood Pressure Position [Right Arm] 02 Sat by Pulse Oximetry 96 96 96 Oxygen Delivery Method Room Air 04/01/25 18:30 04/01/25 18:39 04/01/25 19:08 Temperature 98.7 F 98.7 F Temperature Source Oral Oral Pulse Rate 98 H 98 H Pulse Rate [Right Radial] 98 H Respiratory Rate 19 19 Blood Pressure 115/63 122/75 Blood Pressure [Right Arm] 116/53 L Blood Pressure Mean 72 Blood Pressure Mean [Right Arm] 74 Blood Pressure Source Automatic Cuff Blood Pressure Source [Right Arm] Automatic Cuff Blood Pressure Position Supine Blood Pressure Position [Right Arm] Supine 02 Sat by Pulse Oximetry 95 96 Oxygen Delivery Method Room Air Room Air 04/01/25 19:09 Temperature 97.8 F Temperature Source Temporal Artery Scan Pulse Rate Pulse Rate [Right Radial] 74 Respiratory Rate 18 Blood Pressure Blood Pressure [Right Arm] 103/63 L Blood Pressure Mean Blood Pressure Mean [Right Arm] 76 Blood Pressure Source Blood Pressure Source [Right Arm] Automatic Cuff Blood Pressure Position Blood Pressure Position [Right Arm] Sitting 02 Sat by Pulse Oximetry 98 Oxygen Delivery Method Room Air Lab Data Lab Results 04/01/25 13:41: WBC 14.6 H, RBC 4.30, Hgb 13.1, Hct 39.3, MCV 91.4, MCH 30.5, MCHC 33.3, RDW 12.7, Plt Count 397, MPV 11.4 H, Neut % (Auto) 86.1 H, Lymph % (Auto) 7.0 L, [place] % (Auto) 3.4, Eos % (Auto) 2.6, Baso % (Auto) 0.5, Neut # (Auto) 12.5 H, Lymph # (Auto) 1.0, [place] # (Auto) 0.5, Eos # (Auto) 0.4, Baso # (Auto) 0.1, Total Counted 100, Neutrophils % (Manual) 84 H, Lymphocytes % (Manual) 11, Monocytes % (Manual) 2, Eosinophils % (Manual) 3, Platelet Estimate Normal, RBC Morphology Normal, Sodium 139, Potassium 3.6, Chloride 99, Carbon Dioxide 28, Anion Gap 15.6 H, BUN 28 H, Creatinine 1.10 H, Estimated Creat Clear 47, Estimated GFR 48 L, Est GFR ( Amer) 59, Glucose 153 H, Calcium 9.7, Total Bilirubin 0.5, AST 27, ALT 27, Alkaline Phosphatase 192 H, Troponin I 0.18 H, Total Protein 7.1, Albumin 4.0, Globulin 3.1, Albumin/Globulin Ratio 1.3, Lipase 91, HCV Ab KODI w/Rflx PCR Qn Negative, HIV Ag/Ab Combo Qual Negative 04/01/25 15:59: VBG pH 7.38, VBG pCO2 36.9, VBG pO2 41.4 H, VBG HCO3 21.4 L, VBG Total CO2 22.5 L, VBG O2 Saturation 76.6 H, VBG Base Excess -3.7 L, VBG Lactic Acid 1.9 04/01/25 16:43: Troponin I 0.25 H 04/01/25 21:05: Troponin I 0.14 H 04/01/25 13:41 04/01/25 13:41 Orders (Tests/Meds): ED MEDICATIONS Generic Name Dose Route Start Last Admin Trade Name Freq PRN Reason Stop Dose Admin Acetaminophen 650 mg 04/01/25 23:03 Acetaminophen 325mg Tab PO 05/01/25 23:02 Q6HP PRN Fever or Mild Pain (1-3) Acetaminophen 1,000 mg 04/02/25 00:01 04/02/25 00:09 Acetaminophen 1,000mg/100ml Vial IV 05/02/25 00:00 1,000 mg Q6HP PRN Administration Mild Pain (1-3) Hydrocodone Bitart/Acetaminophen 1 tab 04/01/25 23:03 Hydrocodone/Apap 5/325 Mg Tablet PO 05/01/25 23:02 Q6HP PRN Moderate Pain (4-6) Albuterol/Ipratropium 3 ml 04/01/25 23:08 Ipratropium/Albuterol 3 Ml Neb IH 05/01/25 23:07 Q6HP PRN Shortness Of Breath Docusate Sodium ml 04/02/25 09:00 Docusate Sodium 10 Ml/Udc Udc PO 05/02/25 08:59 BID ZACARIAS Hydromorphone HCl 1 mg 04/01/25 21:43 04/01/25 22:10 Hydromorphone 2mg/Ml Syringe IV 05/01/25 21:42 1 mg Q2HP PRN Administration Moderate Pain (4-6) Piperacillin Sod/Tazobactam 50 mls @ 100 mls/hr 04/02/25 01:00 Sod 3.375 gm/ Sodium Chloride IV 04/12/25 00:59 Q6H ZACARIAS Sodium Chloride 1,000 mls @ 75 mls/hr 04/01/25 23:15 04/01/25 23:32 Sod Chlor 0.9% 1000ml Bag IV 05/01/25 23:14 75 mls/hr .[id number] ZACARIAS Administration Insulin Human Lispro 0 unit 04/02/25 06:00 Humalog 100 Units/Ml 10ml Vial (Ssi) SQ 05/02/25 05:59 ACHS ZACARIAS Protocol Ondansetron HCl 4 mg 04/01/25 23:08 Ondansetron 4mg/2ml Vial IV 05/01/25 23:07 Q6HP PRN Nausea Pantoprazole Sodium 40 mg 04/02/25 21:00 Pantoprazole 40mg Vial IV 05/02/25 20:59 HS ZACARIAS Sodium Chloride 10 ml 04/01/25 14:25 04/01/25 14:26 Sodium Chloride 0.9% 10ml Syr (Rad Only) IV 05/01/25 14:24 10 ml NEEDED PRN Administration Maintain IV Site Sodium Chloride 10 ml 04/01/25 23:03 Sodium Chloride 0.9% 10ml Flush Syringe IV 05/01/25 23:02 NEEDED PRN Maintain IV Site Sodium Chloride 10 ml 04/01/25 23:08 Sodium Chloride 0.9% 10ml Vial IV 05/01/25 23:07 NEEDED PRN dilute protonix Discontinued Medications Generic Name Dose Route Start Last Admin Trade Name Freq PRN Reason Stop Dose Admin Acetaminophen 1,000 mg 04/01/25 16:30 04/01/25 16:41 Acetaminophen 1,000mg/100ml Vial IV 04/01/25 16:31 1,000 mg ONCE ONE Administration Diatrizoate Meglum/Diatrizoate Sod 30 ml 04/01/25 16:09 04/01/25 16:16 Diatrizoate Mary 66% & Diatrizoate Na 10% 30ml Udc PO 04/01/25 16:10 30 ml ONCE ONE Administration Diatrizoate Meglum/Diatrizoate Sod 30 ml 04/01/25 17:42 04/01/25 17:44 Diatrizoate Mary 66% & Diatrizoate Na 10% 30ml Udc PO 04/01/25 17:43 30 ml ONCE ONE Administration Piperacillin Sod/Tazobactam 50 mls @ 100 mls/hr 04/01/25 18:47 04/01/25 18:53 Sod 3.375 gm/ Sodium Chloride IV 04/01/25 19:16 100 mls/hr ONCE ONE Administration Iopamidol 75 ml 04/01/25 14:25 04/01/25 14:26 Iopamidol-370 (76%);100ml Bottle IV 04/01/25 14:26 75 ml ONCE ONE Administration Morphine Sulfate 4 mg 04/01/25 13:54 04/01/25 14:17 Morphine 2mg/Ml Syringe IV 04/01/25 13:55 Not Given ONCE ONE Ondansetron HCl 4 mg 04/01/25 13:54 04/01/25 14:18 Ondansetron 4mg/2ml Vial IV 04/01/25 13:55 Not Given ONCE ONE ORDERS Category Date Time Status CT abd/pel oral contrast ONLY Stat Cat Scan 04/01/25 16:[address] abdomen pelvis w con Stat Cat Scan 04/01/25 13:54 Completed Portable CXR [XR chest portable] Stat Exams 04/01/25 13:54 Completed CBC Man Diff [Complete Blood Count Man Dif] Stat Lab 04/01/25 13:41 Completed CMP [Comprehensive Metabolic Panel] Stat Lab 04/01/25 13:41 Completed HIV Combo Stat Lab 04/01/25 13:41 Completed Hepatitis C Ab Qual. W/ RFX Stat Lab 04/01/25 13:41 Completed Lactate Venous Stat Lab 04/01/25 14:17 Ordered Lipase Stat Lab 04/01/25 13:41 Completed Trop I [Troponin I] Stat Lab 04/01/25 13:41 Completed Troponin I Q3H Lab 04/01/25 16:43 Completed Troponin I Q3H Lab 04/01/25 21:05 Completed Urine Culture(cathed specimen) Routine Micro 04/01/25 23:24 Received VBG [Venous Blood Gas] Routine RT 04/01/25 15:59 Completed Medical Decision Narrative: In summary, this is a 74-year-old female patient who is now 7 days status post cholecystectomy and is now presenting to the emergency department for severe epigastric abdominal pain. Her comorbidities include a history of colon cancer status post colectomy as well as hypertension, hyperlipidemia, and diastolic heart dysfunction. On initial evaluation of the patient they were resting comfortably in no acute distress and nontoxic in appearance. They are hemodynamically stable, saturating well room air, and are neurologically intact. On examination of the patient she does have well-healing surgical scars. There is a minimal amount of ecchymosis surrounding the scars. The patient does have exquisite epigastric abdominal tenderness to palpation with guarding present. She subjectively feels that this tenderness is worse than it has been since she had her surgery. Differential diagnosis includes pneumoperitoneum, perforated viscus, intra-abdominal abscess, bowel obstruction, ACS/CO, pneumonia, among others. Our workup was initiated with hematologic labs as well as a CT scan of the abdomen and pelvis. Labs personally turbid by me do demonstrate a leukocytosis. The patient also has an elevated alkaline phosphatase without elevations of her other transaminases or bilirubin. In addition, her troponin is elevated at 0.18. Her EKG does appear nonischemic. Please see interpretation of EKG above. We will obtain a delta troponin. We did attempt to treat the patient the emergency department with morphine and Zofran. She declined treatment with these medications at this time. CT scan of the abdomen and pelvis did result showing mucosal enhancement and thickening of the gastric antrum extending to the pylorus with surrounding lymph nodes. There is also a free amount of ascites and pneumoperitoneum. Per radiology report, it is difficult to ascertain whether this is physiologic postoperative change or whether this is sequela of a hollow viscus perforation. I have had an interactive discussion with the general surgery service who has agreed to evaluate the patient in the emergency department. Based off of the scan listed above, there is concern for the possibility of a perforated gastric ulcer. General surgery is recommended that we obtain a Gastrografin oral contrasted CT scan to determine whether there is a contrast leak to suggest a perforated hollow viscus. At the time of shift change this repeat CT scan was pending as well as general surgery's formal evaluation. This case was handed off to to Dr. Moss who will follow up on their recommendations and disposition the patient appropriately Suresh Moss MD I assumed care this patient at 1600. Pending surgery evaluation for concern for possible perforated viscus as well as CT with water-soluble oral contrast. Patient's workup notable for elevated troponin, however initial EKG with significant artifact. Patient with elevated white blood cell count. Repeat EKG interpreted by me personally. Normal sinus rhythm. No ST elevation or depression. No other evidence of ischemia. QTc normal at 395. Pending repeat troponin. Giving 1 g of IV Tylenol for pain, patient refusing morphine. Patient refusing morphine and plan on keeping patient n.p.o. at this time. Patient's repeat troponin is continuing to elevate at 0.25 (previously was 0.18). I discussed patient's case with Dr. Gould due to concern for NSTEMI. He agreed EKG was nonspecific. CT abdomen pelvis with oral contrast showed a gastric perforation. Given this, Dr. Patino plans to take the patient to the OR. <Marbin Cartwright DO - Last Filed: 04/01/25 16:58> Medical Records Screening: Per USPSTF and CDC recommendations, given the prevalence of disease in our region, it is our hospital?s policy to screen for HIV and viral Hepatitis for all patients aged 18 and over and those with ongoing risk factors. James Inquiry Pt receiving controlled substance: No James was queried for this patient: No Vital Signs: 04/01/25 13:17 04/01/25 13:22 04/01/25 13:30 Temperature 97.4 F L Temperature Source Oral Pulse Rate 83 821 H Pulse Rate [Right Radial] 89 Respiratory Rate 18 18 19 Blood Pressure 130/67 128/70 Blood Pressure [Right Arm] 130/67 Blood Pressure Mean 95 96 Blood Pressure Mean [Right Arm] 88 Blood Pressure Source Blood Pressure Source [Right Arm] Automatic Cuff Blood Pressure Position Blood Pressure Position [Right Arm] Sitting 02 Sat by Pulse Oximetry 98 98 95 Oxygen Delivery Method Room Air Room Air Room Air 04/01/25 14:00 04/01/25 15:01 04/01/25 15:30 Temperature Temperature Source Pulse Rate 81 91 H 94 H Pulse Rate [Right Radial] Respiratory Rate 17 17 Blood Pressure 109/59 L 140/72 126/70 Blood Pressure [Right Arm] Blood Pressure Mean 81 94 Blood Pressure Mean [Right Arm] Blood Pressure Source Blood Pressure Source [Right Arm] Blood Pressure Position Blood Pressure Position [Right Arm] 02 Sat by Pulse Oximetry 98 98 97 Oxygen Delivery Method Room Air Room Air 04/01/25 15:45 04/01/25 16:00 04/01/25 16:30 Temperature 19 F L Temperature Source Pulse Rate 96 H 97 H 94 H Pulse Rate [Right Radial] Respiratory Rate 19 18 Blood Pressure 130/71 125/71 Blood Pressure [Right Arm] Blood Pressure Mean 90 86 Blood Pressure Mean [Right Arm] Blood Pressure Source Blood Pressure Source [Right Arm] Blood Pressure Position Blood Pressure Position [Right Arm] 02 Sat by Pulse Oximetry 100 98 100 Oxygen Delivery Method Room Air Room Air Room Air 04/01/25 17:00 04/01/25 17:30 04/01/25 18:00 Temperature Temperature Source Pulse Rate 105 H 99 H 98 H Pulse Rate [Right Radial] Respiratory Rate 22 18 Blood Pressure 126/85 115/68 115/64 Blood Pressure [Right Arm] Blood Pressure Mean 83 76 Blood Pressure Mean [Right Arm] Blood Pressure Source Blood Pressure Source [Right Arm] Blood Pressure Position Blood Pressure Position [Right Arm] 02 Sat by Pulse Oximetry 96 96 96 Oxygen Delivery Method Room Air 04/01/25 18:30 04/01/25 18:39 04/01/25 19:08 Temperature 98.7 F 98.7 F Temperature Source Oral Oral Pulse Rate 98 H 98 H Pulse Rate [Right Radial] 98 H Respiratory Rate 19 19 Blood Pressure 115/63 122/75 Blood Pressure [Right Arm] 116/53 L Blood Pressure Mean 72 Blood Pressure Mean [Right Arm] 74 Blood Pressure Source Automatic Cuff Blood Pressure Source [Right Arm] Automatic Cuff Blood Pressure Position Supine Blood Pressure Position [Right Arm] Supine 02 Sat by Pulse Oximetry 95 96 Oxygen Delivery Method Room Air Room Air 04/01/25 19:09 Temperature 97.8 F Temperature Source Temporal Artery Scan Pulse Rate Pulse Rate [Right Radial] 74 Respiratory Rate 18 Blood Pressure Blood Pressure [Right Arm] 103/63 L Blood Pressure Mean Blood Pressure Mean [Right Arm] 76 Blood Pressure Source Blood Pressure Source [Right Arm] Automatic Cuff Blood Pressure Position Blood Pressure Position [Right Arm] Sitting 02 Sat by Pulse Oximetry 98 Oxygen Delivery Method Room Air Lab Data Lab Results 04/01/25 13:41: WBC 14.6 H, RBC 4.30, Hgb 13.1, Hct 39.3, MCV 91.4, MCH 30.5, MCHC 33.3, RDW 12.7, Plt Count 397, MPV 11.4 H, Neut % (Auto) 86.1 H, Lymph % (Auto) 7.0 L, [place] % (Auto) 3.4, Eos % (Auto) 2.6, Baso % (Auto) 0.5, Neut # (Auto) 12.5 H, Lymph # (Auto) 1.0, [place] # (Auto) 0.5, Eos # (Auto) 0.4, Baso # (Auto) 0.1, Total Counted 100, Neutrophils % (Manual) 84 H, Lymphocytes % (Manual) 11, Monocytes % (Manual) 2, Eosinophils % (Manual) 3, Platelet Estimate Normal, RBC Morphology Normal, Sodium 139, Potassium 3.6, Chloride 99, Carbon Dioxide 28, Anion Gap 15.6 H, BUN 28 H, Creatinine 1.10 H, Estimated Creat Clear 47, Estimated GFR 48 L, Est GFR ( Amer) 59, Glucose 153 H, Calcium 9.7, Total Bilirubin 0.5, AST 27, ALT 27, Alkaline Phosphatase 192 H, Troponin I 0.18 H, Total Protein 7.1, Albumin 4.0, Globulin 3.1, Albumin/Globulin Ratio 1.3, Lipase 91, HCV Ab KODI w/Rflx PCR Qn Negative, HIV Ag/Ab Combo Qual Negative 04/01/25 15:59: VBG pH 7.38, VBG pCO2 36.9, VBG pO2 41.4 H, VBG HCO3 21.4 L, VBG Total CO2 22.5 L, VBG O2 Saturation 76.6 H, VBG Base Excess -3.7 L, VBG Lactic Acid 1.9 04/01/25 16:43: Troponin I 0.25 H 04/01/25 21:05: Troponin I 0.14 H Orders (Tests/Meds): ED MEDICATIONS Generic Name Dose Route Start Last Admin Trade Name Freq PRN Reason Stop Dose Admin Acetaminophen 650 mg 04/01/25 23:03 Acetaminophen 325mg Tab PO 05/01/25 23:02 Q6HP PRN Fever or Mild Pain (1-3) Acetaminophen 1,000 mg 04/02/25 00:01 04/02/25 00:09 Acetaminophen 1,000mg/100ml Vial IV 05/02/25 00:00 1,000 mg Q6HP PRN Administration Mild Pain (1-3) Hydrocodone Bitart/Acetaminophen 1 tab 04/01/25 23:03 Hydrocodone/Apap 5/325 Mg Tablet PO 05/01/25 23:02 Q6HP PRN Moderate Pain (4-6) Albuterol/Ipratropium 3 ml 04/01/25 23:08 Ipratropium/Albuterol 3 Ml Neb IH 05/01/25 23:07 Q6HP PRN Shortness Of Breath Docusate Sodium ml 04/02/25 09:00 Docusate Sodium 10 Ml/Udc Udc PO 05/02/25 08:59 BID ZACARIAS Hydromorphone HCl 1 mg 04/01/25 21:43 04/01/25 22:10 Hydromorphone 2mg/Ml Syringe IV 05/01/25 21:42 1 mg Q2HP PRN Administration Moderate Pain (4-6) Piperacillin Sod/Tazobactam 50 mls @ 100 mls/hr 04/02/25 01:00 Sod 3.375 gm/ Sodium Chloride IV 04/12/25 00:59 Q6H ZACARIAS Sodium Chloride 1,000 mls @ 75 mls/hr 04/01/25 23:15 04/01/25 23:32 Sod Chlor 0.9% 1000ml Bag IV 05/01/25 23:14 75 mls/hr .[id number] ZACARIAS Administration Insulin Human Lispro 0 unit 04/02/25 06:00 Humalog 100 Units/Ml 10ml Vial (Ssi) SQ 05/02/25 05:59 ACHS ZACARIAS Protocol Ondansetron HCl 4 mg 04/01/25 23:08 Ondansetron 4mg/2ml Vial IV 05/01/25 23:07 Q6HP PRN Nausea Pantoprazole Sodium 40 mg 04/02/25 21:00 Pantoprazole 40mg Vial IV 05/02/25 20:59 HS ZACARIAS Sodium Chloride 10 ml 04/01/25 14:25 04/01/25 14:26 Sodium Chloride 0.9% 10ml Syr (Rad Only) IV 05/01/25 14:24 10 ml NEEDED PRN Administration Maintain IV Site Sodium Chloride 10 ml 04/01/25 23:03 Sodium Chloride 0.9% 10ml Flush Syringe IV 05/01/25 23:02 NEEDED PRN Maintain IV Site Sodium Chloride 10 ml 04/01/25 23:08 Sodium Chloride 0.9% 10ml Vial IV 05/01/25 23:07 NEEDED PRN dilute protonix Discontinued Medications Generic Name Dose Route Start Last Admin Trade Name Freq PRN Reason Stop Dose Admin Acetaminophen 1,000 mg 04/01/25 16:30 04/01/25 16:41 Acetaminophen 1,000mg/100ml Vial IV 04/01/25 16:31 1,000 mg ONCE ONE Administration Diatrizoate Meglum/Diatrizoate Sod 30 ml 04/01/25 16:09 04/01/25 16:16 Diatrizoate Mary 66% & Diatrizoate Na 10% 30ml Udc PO 04/01/25 16:10 30 ml ONCE ONE Administration Diatrizoate Meglum/Diatrizoate Sod 30 ml 04/01/25 17:42 04/01/25 17:44 Diatrizoate Mary 66% & Diatrizoate Na 10% 30ml Udc PO 04/01/25 17:43 30 ml ONCE ONE Administration Piperacillin Sod/Tazobactam 50 mls @ 100 mls/hr 04/01/25 18:47 04/01/25 18:53 Sod 3.375 gm/ Sodium Chloride IV 04/01/25 19:16 100 mls/hr ONCE ONE Administration Iopamidol 75 ml 04/01/25 14:25 04/01/25 14:26 Iopamidol-370 (76%);100ml Bottle IV 04/01/25 14:26 75 ml ONCE ONE Administration Morphine Sulfate 4 mg 04/01/25 13:54 04/01/25 14:17 Morphine 2mg/Ml Syringe IV 04/01/25 13:55 Not Given ONCE ONE Ondansetron HCl 4 mg 04/01/25 13:54 04/01/25 14:18 Ondansetron 4mg/2ml Vial IV 04/01/25 13:55 Not Given ONCE ONE ORDERS Category Date Time Status CT abd/pel oral contrast ONLY Stat Cat Scan 04/01/25 16:[address] abdomen pelvis w con Stat Cat Scan 04/01/25 13:54 Completed Portable CXR [XR chest portable] Stat Exams 04/01/25 13:54 Completed CBC Man Diff [Complete Blood Count Man Dif] Stat Lab 04/01/25 13:41 Completed CMP [Comprehensive Metabolic Panel] Stat Lab 04/01/25 13:41 Completed HIV Combo Stat Lab 04/01/25 13:41 Completed Hepatitis C Ab Qual. W/ RFX Stat Lab 04/01/25 13:41 Completed Lactate Venous Stat Lab 04/01/25 14:17 Ordered Lipase Stat Lab 04/01/25 13:41 Completed Trop I [Troponin I] Stat Lab 04/01/25 13:41 Completed Troponin I Q3H Lab 04/01/25 16:43 Completed Troponin I Q3H Lab 04/01/25 21:05 Completed Urine Culture(cathed specimen) Routine Micro 04/01/25 23:24 Received VBG [Venous Blood Gas] Routine RT 04/01/25 15:59 Completed ECG Data Tracing #1: I reviewed this ECG and interpreted as documented below: EKG personally interpreted by me demonstrates normal sinus rhythm with a rate of 90 bpm, normal axis, significant baseline artifact making it difficult to determine VT and QTc intervals. There is not appear to be any significant ST segment elevation to suggest ischemia Medical Decision Narrative: In summary, this is a 74-year-old female patient who is now 7 days status post cholecystectomy and is now presenting to the emergency department for severe epigastric abdominal pain. Her comorbidities include a history of colon cancer status post colectomy as well as hypertension, hyperlipidemia, and diastolic heart dysfunction. On initial evaluation of the patient they were resting comfortably in no acute distress and nontoxic in appearance. They are hemodynamically stable, saturating well room air, and are neurologically intact. On examination of the patient she does have well-healing surgical scars. There is a minimal amount of ecchymosis surrounding the scars. The patient does have exquisite epigastric abdominal tenderness to palpation with guarding present. She subjectively feels that this tenderness is worse than it has been since she had her surgery. Differential diagnosis includes pneumoperitoneum, perforated viscus, intra-abdominal abscess, bowel obstruction, ACS/CO, pneumonia, among others. Our workup was initiated with hematologic labs as well as a CT scan of the abdomen and pelvis. Labs personally turbid by me do demonstrate a leukocytosis. The patient also has an elevated alkaline phosphatase without elevations of her other transaminases or bilirubin. In addition, her troponin is elevated at 0.18. Her EKG does appear nonischemic. Please see interpretation of EKG above. We will obtain a delta troponin. We did attempt to treat the patient the emergency department with morphine and Zofran. She declined treatment with these medications at this time. CT scan of the abdomen and pelvis did result showing mucosal enhancement and thickening of the gastric antrum extending to the pylorus with surrounding lymph nodes. There is also a free amount of ascites and pneumoperitoneum. Per radiology report, it is difficult to ascertain whether this is physiologic postoperative change or whether this is sequela of a hollow viscus perforation. I have had an interactive discussion with the general surgery service who has agreed to evaluate the patient in the emergency department. Based off of the scan listed above, there is concern for the possibility of a perforated gastric ulcer. General surgery is recommended that we obtain a Gastrografin oral contrasted CT scan to determine whether there is a contrast leak to suggest a perforated hollow viscus. At the time of shift change this repeat CT scan was pending as well as general surgery's formal evaluation. This case was handed off to to Dr. Moss who will follow up on their recommendations and disposition the patient appropriately Suresh Moss MD I assumed care this patient at 1600. Pending surgery evaluation for concern for possible perforated viscus as well as CT with water-soluble contrast and of surgery evaluation. Patient's workup notable for elevated troponin, however initial EKG with artifact. Repeat EKG interpreted by me personally. Normal sinus rhythm. No ST elevation or depression. No other evidence of ischemia. QTc normal at 395. Pending repeat troponin. Giving 1 g of IV Tylenol for pain. Patient refusing morphine and plan on keeping patient n.p.o. at this time. Critical Care <Suresh Moss MD - Last Filed: 04/02/25 01:39> Critical Care Time Critical Care Time: Yes Attestation: On 04/01/25, the high probability of a clinically significant, sudden or life threatening deterioration of the following system(s) required my full and direct attention, intervention and personal management. The time I documented below is in addition to time spent performing reported procedures but includes the following listed in this critical care notation. Total Time Total Critical Care Time: 35 <Marbin Cartwright DO - Last Filed: 04/01/25 16:58> Critical Care Time Critical Care Time: No
--- NOTE | 2025-04-01 15:46 | PC.NURSE ---
DR SORIA SPEAKING WITH DR BERNAL
--- NOTE | 2025-04-01 15:53 | PC.NURSE ---
Patient resting well in bed, VSS. Respirations even and unlabored. Call light in reach. Patient denies needs at this time.
[2025-04-01 16:01] LABS: Lactate Venous 1.9 mmol/L (0.4-2.0); VBG HCO3 21.4 mmol/L (23-30); VBG PCO2 36.9 mmol/L (35-51); VBG PH 7.38 mmol/L (7.31-7.41); VBG PO2 41.4 mmol/L (28-40)
--- NOTE | 2025-04-01 16:01 | CT_ITS ---
PROCEDURE INFORMATION: Exam: CT Abdomen And Pelvis Without Contrast Exam date and time: 04/01/2025 5:42 PM Age: 74 years old Clinical indication: Abdominal pain; Additional info: Eval gastric perforation TECHNIQUE: Imaging protocol: Computed tomography of the abdomen and pelvis without contrast. Radiation optimization: All CT scans at this facility use at least one of these dose optimization techniques: automated exposure control; mA and/or kV adjustment per patient size (includes targeted exams where dose is matched to clinical indication); or iterative reconstruction. COMPARISON: CT ABDOMEN PELVIS W CON 04/01/2025 2:27 PM FINDINGS: Liver: Normal. No mass. Gallbladder and biliary ducts: Gallbladder is absent. Pancreas: [id number] pancreatic atrophy. Spleen: Normal. No splenomegaly. Adrenal glands: Normal. No mass. Kidneys and ureters: Normal. No hydronephrosis. Stomach and bowel: After administration of oral contrast, a 2.3 cm gastric ulcer along superior margin of the gastric antrum on image 27 series 1001 is clearly identified. The ulcer clearly connects with extraluminal gas example images 45 and 46 of series 1002. Significant bowel wall thickening of the gastric antrum with at least 2 large ulcers. Moderate to severe sigmoid diverticulosis without diverticulitis. Postsurgical changes of the right colon. Appendix: Appendix is absent. Intraperitoneal space: Pneumoperitoneum consistent known gastric perforation. Perihepatic ascites likely related to gastric ulcer. Vasculature: The arteries demonstrate severe atherosclerotic disease. Lymph nodes: Unremarkable. No enlarged lymph nodes. Urinary bladder: Small urinary bladder diverticula. Reproductive: Unremarkable as visualized. Bones/joints: Status post total right hip arthroplasty. The hardware appears intact. Posterior fusion of L4-L5. Hardware appears intact. Soft tissues: Bilateral breast prostheses. IMPRESSION: 1. Perforated gastric ulcer. 2. Significant bowel wall thickening of the gastric antrum with at least 2 large ulcers. This is consistent with gastritis and peptic ulcer disease 3. THIS REPORT CONTAINS FINDINGS THAT MAY BE CRITICAL TO PATIENT CARE. The findings were verbally communicated via telephone conference with ELIEZER Day at 6:05 PM EDT on 04/01/2025. The findings were acknowledged and understood.
--- NOTE | 2025-04-01 16:13 | PC.NURSE ---
PO Contrast complete, Radiology notified.
[2025-04-01] MEDS: DIATRIZOATE MEG 66% & DIATRIZOATE NA 10% 30ML UDC 30 ML PO ×2 (16:16→17:44)
--- NOTE | 2025-04-01 16:25 | ECG_ITS ---
APPROVED REPORT Exam: Resting ECG HR:94 bpm ECG Measurements Heart Rate 94 AXES OK 152 P 34 QRSd 108 QRS 70 QT 344 T 74 QTc 395 Conclusion SINUS RHYTHM LOW QRS VOLTAGE IN PRECORDIAL LEADS [QRS DEFLECTION < 1.0 mV IN CHEST LEADS] NONSPECIFIC T-WAVE ABNORMALITY BORDERLINE ECG UNCONFIRMED REPORT Normal sinus rhythm with ventricular rate of [address] elevation or depression. QTc normal at 395 Electronically signed by : JOSE JOSHUA, 04/01/2025 23:33:41
--- NOTE | 2025-04-01 16:36 | EXP.SURG.CON ---
History of Present Illness *Admission Date: 04/01/25 *Reason for visit:: Abdominal pain *History of present illness: Patient is a 74-year-old female who underwent laparoscopic cholecystectomy for chronic calculus cholecystitis 1 week ago on 03/25/2025 at which time she was found to have profound pericholecystic fat stranding with dense adhesions due to prior laparotomy including the omentum, colon, small bowel, and stomach with massive gallbladder distention. She has a prior history of colon cancer and has undergone hemicolectomy. Cholecystectomy was successfully performed laparoscopically. She did undergo thorough irrigation. She saw Dr. Frazier yesterday on 03/31/2025 and postoperative follow-up and was doing well. Patient states that she was doing well until about 11:30 AM today on 04/01/2025 at which time she felt acute onset of mid and upper abdominal pain described as a popping and tearing. She had associated shortness of air. She presented to the emergency department where she underwent thorough evaluation. Laboratory evaluation reveals a BUN of 28 with creatinine of 1.10. Alkaline phosphatase is 192. Previously 107. CBC reveals a white blood cell count of 14,600. Yesterday white blood cell count 12,700. CT scan revealed small amount of ascites and intraperitoneal air. It was unclear if this is due to recent surgery or perforated viscus. There was some thickening of the gastric antrum extending to the pylorus with some small lymph nodes which was felt to be possibly inflammatory or possibly neoplastic. [facility] Disclaimer: The information contained in this section may have been updated after the patient was seen, as this information can be updated by other users. Medical History (Updated 04/01/25 @ 18:28 by Janak Patino MD) Impacted cerumen of right ear History of deviated nasal septum Cancer Urinary tract infection Kidney stone Hyperlipidemia Hypertension History of colon cancer Cataract Hearing loss, bilateral Tinnitus, bilateral Bilateral impacted cerumen Coronary artery calcification seen on CAT scan Former smoker Palpitations Diastolic dysfunction Abnormal echocardiogram Surgical History (Updated 03/31/25 @ 14:47 by JEAN MARIE Wolfe) History of laparoscopic cholecystectomy History of cataract surgery History of eye surgery History of spinal fusion Hx of tonsillectomy H/O colonoscopy H/O hemicolectomy S/P hip replacement Family History Other Family history of cancer Family history of coronary artery disease Social History Smoking Status: Never smoker alcohol intake: never counseling provided: provider counseling substance use type: denies use current occupational status: employed Travel in the last 8 weeks?: None household members: none housing: house current occupation: [employer] current occupational exposures/hazards: No caffeine: Yes Have you lived/traveled outside [place] in past 30 days?: No Contact w/someone who lives/traveled outside US past 30 days?: No Exposure to someone with infectious disease in past 14 days?: No Do you have a fever (greater than 100.4 F or 38 C)?: No Have you tested positive for COVID-19?: No Exposed to someone with COVID-19 in past 14 days?: No Do you have a sore throat?: No Do you have a cough?: No Do you have any weakness?: No Do you have any diarrhea?: No Are you experiencing any unusual bleeding?: No Do you have any muscle aches/pain?: No Do you have any abdominal pain?: Yes Are you experiencing loss of taste or smell?: No Review of Systems Review of Systems Review of systems:: pertinent systems reviewed and negative unless documented below Meds Home Medications and Allergies Home Medications ?Medication ?Instructions ?Recorded ?Confirmed ?Type losartan 50 mg tablet 50 mg PO DAILY 03/19/24 03/31/25 History potassium chloride 10 mEq 10 meq PO DAILY 03/19/24 03/31/25 History tablet,extended release rosuvastatin 10 mg tablet 10 mg PO DAILY 03/19/24 03/31/25 History triamterene 37.5 1 tab PO DAILY 03/19/24 03/31/25 History mg-hydrochlorothiazide 25 mg tablet vibegron 75 mg tablet (Gemtesa) 75 mg PO DAILY 03/19/24 03/31/25 History aspirin 81 mg tablet,delayed 81 mg PO DAILY 11/18/24 03/31/25 History release diclofenac sodium 100 mg 100 mg PO DAILY Pain 02/10/25 03/31/25 History tablet,extended release 24 hr Bifidobacterium infantis 4 mg 4 mg PO DAILY 02/11/25 03/31/25 History capsule (Align (B.infantis)) coenzyme Q10 50 mg capsule (Co 50 mg PO DAILY 03/17/25 03/31/25 History Q-10) New Prescriptions to Start Prescriptions: Allergies Allergy/AdvReac Type Severity Reaction Status Date / Time nickel Allergy Rash Verified 03/31/25 14:46 lysol Allergy Intermediate Swelling Uncoded 03/31/25 14:46 of Lip/Tongue/Throat Exam (Inpt) Vital signs and Labs for Last 24 Hours: Temp Pulse Resp BP Pulse Ox O2 Del Method 19 F L 96 H 17 126/70 100 Room Air 04/01/25 15:45 04/01/25 15:45 04/01/25 15:01 04/01/25 15:30 04/01/25 15:45 04/01/25 15:45 Laboratory Results - last 24 hr 04/01/25 13:41: WBC 14.6 H, RBC 4.30, Hgb 13.1, Hct 39.3, MCV 91.4, MCH 30.5, MCHC 33.3, RDW 12.7, Plt Count 397, MPV 11.4 H, Neut % (Auto) 86.1 H, Lymph % (Auto) 7.0 L, [place] % (Auto) 3.4, Eos % (Auto) 2.6, Baso % (Auto) 0.5, Neut # (Auto) 12.5 H, Lymph # (Auto) 1.0, [place] # (Auto) 0.5, Eos # (Auto) 0.4, Baso # (Auto) 0.1, Total Counted 100, Neutrophils % (Manual) 84 H, Lymphocytes % (Manual) 11, Monocytes % (Manual) 2, Eosinophils % (Manual) 3, Platelet Estimate Normal, RBC Morphology Normal, Sodium 139, Potassium 3.6, Chloride 99, Carbon Dioxide 28, Anion Gap 15.6 H, BUN 28 H, Creatinine 1.10 H, Estimated Creat Clear 47, Estimated GFR 48 L, Est GFR ( Amer) 59, Glucose 153 H, Calcium 9.7, Total Bilirubin 0.5, AST 27, ALT 27, Alkaline Phosphatase 192 H, Troponin I 0.18 H, Total Protein 7.1, Albumin 4.0, Globulin 3.1, Albumin/Globulin Ratio 1.3, Lipase 91, HCV Ab KODI w/Rflx PCR Qn Negative, HIV Ag/Ab Combo Qual Negative 04/01/25 15:59: VBG pH 7.38, VBG pCO2 36.9, VBG pO2 41.4 H, VBG HCO3 21.4 L, VBG Total CO2 22.5 L, VBG O2 Saturation 76.6 H, VBG Base Excess -3.7 L, VBG Lactic Acid 1.9 I & O for Labs for Last 24 Hours: Intake & Output 03/30/25 03/31/25 04/01/25 04/02/25 11:59 11:59 11:59 11:59 Weight 148 lb Constitutional: no acute distress Comment:: Somewhat uncomfortable appearing Head: Present normocephalic Respiratory: Present CTA bilaterally Cardiac: Present Reg Rate and Rhythm GI: Present soft Comments:: Trocar sites with Steri-Strips. Some bruising at the epigastric site. Tender with guarding mostly in the epigastrium and right upper quadrant. (female): Present deferred Results Labs 04/01/25 13:41 04/01/25 13:41 Labs: Laboratory Results - last 24 hr 04/01/25 13:41: WBC 14.6 H, RBC 4.30, Hgb 13.1, Hct 39.3, MCV 91.4, MCH 30.5, MCHC 33.3, RDW 12.7, Plt Count 397, MPV 11.4 H, Neut % (Auto) 86.1 H, Lymph % (Auto) 7.0 L, Living[place] % (Auto) 3.4, Eos % (Auto) 2.6, Baso % (Auto) 0.5, Neut # (Auto) 12.5 H, Lymph # (Auto) 1.0, Living[place] # (Auto) 0.5, Eos # (Auto) 0.4, Baso # (Auto) 0.1, Total Counted 100, Neutrophils % (Manual) 84 H, Lymphocytes % (Manual) 11, Monocytes % (Manual) 2, Eosinophils % (Manual) 3, Platelet Estimate Normal, RBC Morphology Normal, Sodium 139, Potassium 3.6, Chloride 99, Carbon Dioxide 28, Anion Gap 15.6 H, BUN 28 H, Creatinine 1.10 H, Estimated Creat Clear 47, Estimated GFR 48 L, Est GFR ( Amer) 59, Glucose 153 H, Calcium 9.7, Total Bilirubin 0.5, AST 27, ALT 27, Alkaline Phosphatase 192 H, Troponin I 0.18 H, Total Protein 7.1, Albumin 4.0, Globulin 3.1, Albumin/Globulin Ratio 1.3, Lipase 91, HCV Ab KODI w/Rflx PCR Qn Negative, HIV Ag/Ab Combo Qual Negative 04/01/25 15:59: VBG pH 7.38, VBG pCO2 36.9, VBG pO2 41.4 H, VBG HCO3 21.4 L, VBG Total CO2 22.5 L, VBG O2 Saturation 76.6 H, VBG Base Excess -3.7 L, VBG Lactic Acid 1.9 Assessment and Plan *Assessment and plan (1) Ulcer, gastric, acute, with perforation: Status: Acute Category: Medical Code(s): K25.1 - Acute gastric ulcer with perforation Plan It is concerning with the patient's acute onset of pain 7 days postoperatively. However, findings on CT scan are concordant with both normal expected postoperative changes at this time but more significant emergent issues could not be ruled out. I therefore had the patient undergo CT scan with oral contrast to better evaluate for perforation. This reveals evidence of gastric ulcer with perforation. Therefore plan will be for exploratory laparotomy with repair of ulcer perforation.
[2025-04-01] MEDS: ACETAMINOPHEN 1,000MG/100ML VIAL 1000 MG IV (16:41)
--- NOTE | 2025-04-01 16:59 | PC.NURSE ---
Dr. Patino at bedside.
[2025-04-01 17:32] LABS: Troponin I 0.25 ng/ml (0.00-0.034)
--- NOTE | 2025-04-01 17:41 | PC.NURSE ---
Dr. Patino states he wants a second dose of PO contrast now, just prior to second CT.
--- NOTE | 2025-04-01 17:45 | PC.NURSE ---
Patient to CT now, VSS, respirations even and unlabored. Patient denies chest pain, denies SOA.
--- NOTE | 2025-04-01 17:45 | PC.NURSE ---
DR JOSHUA SPEAKING WITH DR RAND
--- NOTE | 2025-04-01 17:59 | PC.NURSE ---
Patient's POA now at bedside, updated on plan per patient request. Patient denies needs at this time. VSS. Call light in reach.
--- NOTE | 2025-04-01 18:03 | PC.NURSE ---
[facility] CRITICAL RESULTS FOR PERFORATED ULCER, DR JOSHUA NOTIFIED
--- NOTE | 2025-04-01 18:04 | PC.NURSE ---
DR RITCHIE PAGED
--- NOTE | 2025-04-01 18:05 | PC.NURSE ---
DR JOSHUA SPEAKING WITH DR RITCHIE
[2025-04-01] MEDS: PIPERCILLIN/TAZO 3.375 GM in 0.9 % SODIUM CHLORIDE 50 ML IV (18:53)
--- NOTE | 2025-04-01 19:01 | PC.NURSE ---
Surgery Team at Bedside.
--- NOTE | 2025-04-01 19:10 | P.PNANES_ITS ---
[facility] Disclaimer: The information contained in this section may have been updated after the patient was seen, as this information can be updated by other users. Medical History Impacted cerumen of right ear History of deviated nasal septum Cancer Urinary tract infection Kidney stone Hyperlipidemia Hypertension History of colon cancer Cataract Hearing loss, bilateral Tinnitus, bilateral Bilateral impacted cerumen Coronary artery calcification seen on CAT scan Former smoker Palpitations Diastolic dysfunction Abnormal echocardiogram Surgical History History of laparoscopic cholecystectomy History of cataract surgery History of eye surgery History of spinal fusion Hx of tonsillectomy H/O colonoscopy H/O hemicolectomy S/P hip replacement Family History Other Family history of cancer Family history of coronary artery disease Social History Smoking Status: Never smoker alcohol intake: never counseling provided: provider counseling substance use type: denies use current occupational status: employed Travel in the last 8 weeks?: None household members: none housing: house current occupation: [employer] current occupational exposures/hazards: No caffeine: Yes Have you lived/traveled outside US in past 30 days?: No Contact w/someone who lives/traveled outside US past 30 days?: No Exposure to someone with infectious disease in past 14 days?: No Do you have a fever (greater than 100.4 F or 38 C)?: No Have you tested positive for COVID-19?: No Exposed to someone with COVID-19 in past 14 days?: No Do you have a sore throat?: No Do you have a cough?: No Do you have any weakness?: No Do you have any diarrhea?: No Are you experiencing any unusual bleeding?: No Do you have any muscle aches/pain?: No Do you have any abdominal pain?: Yes Are you experiencing loss of taste or smell?: No [facility] Anesthesia Checklist Patient Identification Patient Identification: Arm Band and Verbal (Name & ) Structural Data Admitted From: Emergency Dept Planned Operative Procedure/s: open ex lap Consent for Planned Operative Procedure(s) Verified: Yes Verified Documents: Surgical Consent and History and Physical NPO Status Verified Time NPO: 11:30 Additional verifications Anesthesia Reactions: No Hx Blood Transfusions: No Blood Transfusion Reaction: No Airway Assessment Mallampati Score:: Class II Dentition: Edentulous Neurological Assessment Level of Consciousness: Awake, Alert and Appropriate Hx Seizures: No Numbness or tingling in extremities: No Anesthesia Plan Anesthesia Risk discussed: Yes Anesthesia Plan: Verified ASA Class: II (emergceny) Anesthesia Type: General
--- NOTE | 2025-04-01 21:24 | P.OP_ITS ---
Date of procedure: 04/01/25 Pre-op Diagnosis:: Acute surgical abdomen, perforation Post-op Diagnosis:: Perforated prepyloric gastric ulcer Procedure performed:: Exploratory laparotomy with repair of prepyloric gastric ulcer using omental ped icle patch (Josh patch) Surgeon:: Janak Patino MD Anesthesia: SARAH Estimated blood loss (mL): 25 Operative findings:: She had some gastric content in the liquid in the right upper quadrant. There was appreciable inflammatory response around the stomach. There was an anterior perforation of the stomach in the antrum in the prepyloric location with significant thickening of the stomach likely secondary to perforated ulcer. She had extensive intra-abdominal adhesions from prior colon resection. Operative note:: Consent was obtained patient was taken the operating room. She was positioned in a supine position. General anesthesia was induced. Carmen catheter was placed. Abdomen was prepped and draped in the standard surgical fashion. Hide midline incision was made. Dissection was carried down through subcutaneous tissues and fascia. Peritoneal cavity was carefully entered. Delineation of anatomy was somewhat difficult due to the inflammatory response and multiple adhesions from her prior surgeries. Exposure was achieved. Surveillance was carried out and ultimately there was noted to be perforation in the anterior gastric antrum in the apparent prepyloric location. There was some gastric contents which oozed from the defect. This was suctioned free. Plan was made for repair with omental Josh patch. Omentum was densely adherent into the lower abdomen from her prior colon resection. This required prolonged dissection using some blunt dissection and Metzenbaum dissection as well as limited use of electrocautery. Ultimately omentum was freed from the lower abdo men. Pedicle of omentum was created dividing omentum down to the transverse colon creating a vascular pedicle. Several 3-0 Surgilon sutures were placed transversely at the ulcer defect. Omental pedicle was placed over the defect and the sutures were secured down repairing the defect. Repair appeared adequate. Peritoneal cavity was then thoroughly irrigated with copious amounts saline and aspirated until clear. Anesthesia placed nasogastric tube and this was confirmed to be in a good position in the antrum proximal to the ulcer. #10 TARA drain was placed through separate stab incision on the right lower quadrant to overlie the repair in the subhepatic space. Please note that the falciform ligament and surrounding peritoneum was excised to allow for closure. Peritoneum in the upper portion of the incision was partially closed with a running 2-0 Vicryl. Fascia was then closed with running #2 Novafil x 2. The TARA drain was secured with a 2-0 nylon suture. Skin was closed with reinier. Clean dry sterile dressing was applied. Condition: stable Disposition: PACU Complications:: None immediately apparent
[2025-04-01] MEDS: HYDROMORPHONE 2MG/ML SYRINGE 1 MG IV ×2 (21:58→22:10)
[2025-04-01 22:13] LABS: Troponin I 0.14 ng/ml (0.00-0.034)
--- NOTE | 2025-04-01 22:25 | PC.NURSE ---
patient arrived to the unit at 2225 by stretcher and was placed in room 262.
--- NOTE | 2025-04-01 22:51 | SUR.PHASEI ---
2221- Pt VSS. Dressing clean dry and intact. C/O of slight kumar in the abdomen but states that pain medication has helped. Small amount if drainage noted tin TARA drain with clean dressing. NG tube in place in right nare. Detailed report called to [facility]. Patient transported via stretcher to ICU. 2226- Patient in ICU room. Transferred to bed. Stable. With RN at bedside.
[2025-04-01] MEDS: 0.9 % SODIUM CHLORIDE 1000ML 1,000 ML 75 ML IV (23:32)
[2025-04-02] VITALS (23 sets, daily range): BP systolic 95–126; BP diastolic 52–91; PULSE 75–89; RESP 7–23; TEMP 36.4–37.2; O2SAT 92–97; BMI 25.4
--- NOTE | 2025-04-02 00:08 | P.HP_ITS ---
<Statement entered by Efrain Kelley MD - 04/05/25 16:18> Personally evaluated patient and agree with plan of care as outlined by the DIRECTOR OF THE [facility]. History of Present Illness *Admission Date: 04/01/25 *Reason for visit:: Abdominal pain *History of present illness: Ms. Holly is a 74-year-old female presents ER with complaint of shortness of breath. Patient has a past medical history of hypertension, hyperlipidemia, diastolic dysfunction, colon cancers s/p colectomy. Patient had a cholecystectomy 03/25/2025. Patient states about 1130 this morning she had abdominal pain across the middle of her abdomen. She states it felt like a samurai sword was trying to cut her in half . Patient is status post ex lap today for perforated gastric ulcer. Patient denies fever/chills, cough, congestion, runny nose, dyspnea, chest pain, nausea, vomiting, diarrhea, constipation, headache, lightheadedness, dizziness, or syncope. [facility] Disclaimer: The information contained in this section may have been updated after the patient was seen, as this information can be updated by other users. Medical History (Updated 04/02/25 @ 00:42 by Jyoti Pascal APRN) Impacted cerumen of right ear History of deviated nasal septum Cancer Urinary tract infection Kidney stone Hyperlipidemia Hypertension History of colon cancer Cataract Hearing loss, bilateral Tinnitus, bilateral Bilateral impacted cerumen Coronary artery calcification seen on CAT scan Former smoker Palpitations Diastolic dysfunction Abnormal echocardiogram Surgical History History of laparoscopic cholecystectomy History of cataract surgery History of eye surgery History of spinal fusion Hx of tonsillectomy H/O colonoscopy H/O hemicolectomy S/P hip replacement Family History Other Family history of cancer Family history of coronary artery disease Social History (Updated 04/01/25 @ 23:08 by Gloria Hernández RN) Smoking Status: Never smoker alcohol intake: never counseling provided: provider counseling substance use type: denies use current occupational status: employed Travel in the last 8 weeks?: None household members: none housing: house current occupation: [employer] current occupational exposures/hazards: No caffeine: Yes Have you lived/traveled outside [place] in past 30 days?: No Contact w/someone who lives/traveled outside US past 30 days?: No Exposure to someone with infectious disease in past 14 days?: No Do you have a fever (greater than 100.4 F or 38 C)?: No Have you tested positive for COVID-19?: No Exposed to someone with COVID-19 in past 14 days?: No Do you have a sore throat?: No Do you have a cough?: No Do you have any weakness?: No Are you experiencing any nausea/vomitting?: No Do you have any diarrhea?: No Are you experiencing any unusual bleeding?: No Do you have any muscle aches/pain?: No Do you have any abdominal pain?: Yes Are you experiencing loss of taste or smell?: No Other Medical History Have you received the Flu Vaccine for this season: No Have you received the Pneumonia Vaccine: No Review of Systems Constitutional Constitutional: Denies chills, Denies fever(s) and Denies headache(s) ENT Ears, Nose, Mouth, and Throat: Denies dizziness, Denies headache(s) and Denies nasal discharge *Cardiovascular Cardiovascular: Denies chest pain, Denies dyspnea and Denies lightheadedness *Respiratory Respiratory: Denies cough and Denies dyspnea *Gastrointestinal Gastrointestinal: Reports abdominal pain, Denies constipation, Denies loose stools, Denies nausea and Denies vomiting *Genitourinary Genitourinary: Reports system reviewed and no additional complaints, except as documented *Musculoskeletal Musculoskeletal: Reports system reviewed and no additional complaints, except as documented *Neurologic Neurologic: Denies dizziness and Denies headache(s) Meds Home Medications and Allergies Home Medications ?Medication ?Instructions ?Recorded ?Confirmed ?Type losartan 50 mg tablet 50 mg PO DAILY 03/19/2403/23 History potassium chloride 10 mEq 10 meq PO DAILY 03/19/2406/17 History tablet,extended release rosuvastatin 10 mg tablet 10 mg PO DAILY 03/19/2403/23 History triamterene 37.5 1 tab PO DAILY 03/19/2406/17 History mg-hydrochlorothiazide 25 mg tablet vibegron 75 mg tablet (Gemtesa) 75 mg PO DAILY 4 03/31/25 History aspirin 81 mg tablet,delayed 81 mg PO DAILY 11/18/24 0 04/01/25 History release diclofenac sodium 100 mg 100 mg PO DAILY Pain 5 03/31/25 History tablet,extended release 24 hr Bifidobacterium infantis 4 mg 4 mg PO DAILY 02/11/25 0 03/31/25 History capsule (Align (B.infantis)) coenzyme Q10 50 mg capsule (Co 50 mg PO DAILY 03/17/25 03/31/25 History Q-10) New Prescriptions to Start Prescriptions: Allergies Allergy/AdvReac Type Severity Reaction Status Date / Time nickel Allergy Rash Verified 03/31/25 14:46 lysol Allergy Intermediate Swelling Uncoded 03/31/25 14:46 of Lip/Tongue/Throat Exam Data for Last 24 hours Vital signs and Labs for Last 24 Hours: Temp Pulse Resp BP Pulse Ox O2 Del Method O2 Flow Rate 99.0 F 83 18 124/67 94 L Nasal Cannula 2 04/01/25 22:20 04/02/25 00:06 04/01/25 22:20 04/01/25 22:20 04/01/25 22:20 04/01/25 23:00 04/01/25 23:00 Laboratory Results - last 24 hr 04/01/25 13:41: WBC 14.6 H, RBC 4.30, Hgb 13.1, Hct 39.3, MCV 91.4, MCH 30.5, MCHC 33.3, RDW 12.7, Plt Count 397, MPV 11.4 H, Neut % (Auto) 86.1 H, Lymph % (Auto) 7.0 L, [place] % (Auto) 3.4, Eos % (Auto) 2.6, Baso % (Auto) 0.5, Neut # (Auto) 12.5 H, Lymph # (Auto) 1.0, [place] # (Auto) 0.5, Eos # (Auto) 0.4, Baso # (Auto) 0.1, Total Counted 100, Neutrophils % (Manual) 84 H, Lymphocytes % (Manual) 11, Monocytes % (Manual) 2, Eosinophils % (Manual) 3, Platelet Estimate Normal, RBC Morphology Normal, Sodium 139, Potassium 3.6, Chloride 99, Carbon Dioxide 28, Anion Gap 15.6 H, BUN 28 H, Creatinine 1.10 H, Estimated Creat Clear 47, Estimated GFR 48 L, Est GFR ( Amer) 59, Glucose 153 H, Calcium 9.7, Total Bilirubin 0.5, AST 27, ALT 27, Alkaline Phosphatase 192 H, Troponin I 0.18 H, Total Protein 7.1, Albumin 4.0, Globulin 3.1, Albumin/Globulin Ratio 1.3, Lipase 91, HCV Ab KODI w/Rflx PCR Qn Negative, HIV Ag/Ab Combo Qual Negative 04/01/25 15:59: VBG pH 7.38, VBG pCO2 36.9, VBG pO2 41.4 H, VBG HCO3 21.4 L, VBG Total CO2 22.5 L, VBG O2 Saturation 76.6 H, VBG Base Excess -3.7 L, VBG Lactic Acid 1.9 04/01/25 16:43: Troponin I 0.25 H 04/01/25 21:05: Troponin I 0.14 H I & O for Last 24 hours: Intake & Output 03/30/25 03/31/25 04/01/25 04/02/25 23:59 23:59 23:59 23:59 Weight 67.132 kg *Routine HEENT Exam Head: Present normocephalic and atraumatic Eye: Present EOMI and PERRL ENT: Present oropharynx clear; Absent mucous membranes moist Comments: NG tube noted to right nare *Routine Neck Exam Neck: Present supple and full ROM *Routine Respiratory Exam Respiratory: Present CTA bilaterally, normal respiratory effort, able to speak in complete sentences and symmetric chest movement; Absent accessory muscle use or respiratory distress *Routine Cardiovascular Exam Cardiovascular: Present RRR, Normal S1 and Normal S2 *Routine Abdominal Exam Abdominal: Present soft, tenderness, distended and drain; Absent normoactive bowel sounds (Decreased bowel sounds) Comments: Surgical dressings clean, dry, and intact. Drain noted with serosanguineous output. *Routine Rectal Exam Rectal:: deferred *Routine Genitalia Exam Genitalia:: deferred *Routine Extremities Exam Extremities: Present full ROM, pulses intact and normal capillary refill; Absent edema *Routine Skin Exam Skin: Present dry and warm *Routine Neurological Exam Neurological: Present oriented X3 and CN II-XII intact; Absent alert (sleepy) Assessment and Plan *Assessment and plan (1) Ulcer, gastric, acute, with perforation: Status: Acute Category: Medical Code(s): K25.1 - Acute gastric ulcer with perforation Plan: CT of abdomen pelvis reviewed by me: Interval cholecystectomy. Small amount of ascites and intraperitoneal free air. Unclear if this is due to recent surgery or perforated viscus. Abnormal mucosal thickening of the gastric antrum extending into pylorus with associated small lymph nodes. May be inflammatory or neoplastic. Upper endoscopy is highly recommended. CT of abdomen pelvis with oral contrast reviewed by me: Perforated gastric ulcer. Significant bowel wall thickening of the gastric antrum with at least 2 large ulcers. Consistent with gastritis and PUD. Protonix 40 mg IV daily General Surgery took patient to surgery for exploratory laparotomy with repair of prepyloric gastric ulcer using omental pedicle patch Maintain TARA drain and NG tube Patient is n.p.o. Continue Zosyn 3.375 g every 6 hours NS at 75 mL an hour Appreciate general surgery's recommendations (2) Leukocytosis: Status: Acute Category: Medical Code(s): D72.829 - Elevated white blood cell count, unspecified Plan: White count on admission 14.6 Continue Zosyn 3.375 g every 6 hours NS at 75 mL an hour Repeat CBC in the a.m. (3) Generalized abdominal pain: Status: Acute Category: Medical Code(s): R10.84 - Generalized abdominal pain Plan: Continue analgesics as needed for pain (4) Hypertension: Status: Acute Category: Medical Code(s): I10 - Essential (primary) hypertension Plan: Hold losartan 50 mg daily as patient is normotensive at this time BP 124/67 (5) Hyperlipidemia: Status: Acute Category: Medical Code(s): E78.5 - Hyperlipidemia, unspecified Plan: Rosuvastatin 10 mg daily Hold for now patient is n.p.o.
[2025-04-02] MEDS: ACETAMINOPHEN 1,000MG/100ML VIAL 1000 MG IV ×3 (00:09→20:58)
[2025-04-02] MEDS: PIPERCILLIN/TAZO 3.375 GM in 0.9 % SODIUM CHLORIDE 50 ML IV ×4 (01:20→18:30)
[2025-04-02 06:06] LABS: POC Glucose,Bedside 155 (70-110)
--- NOTE | 2025-04-02 06:17 | EXP.SURG.PN ---
Subjective Narrative: No issues overnight. Patient has declined pain medication and taken only Tylenol. She states that she is having no pain at this time. Exam Data for Last 24 hours Vital signs and Labs for Last 24 Hours: Temp Pulse Resp BP Pulse Ox O2 Del Method O2 Flow Rate 99.0 F 75 7 L 107/60 L 96 Room Air 2 04/01/25 22:20 04/02/25 04:00 04/02/25 04:00 04/02/25 04:00 04/02/25 04:00 04/02/25 05:00 04/02/25 03:00 Laboratory Results - last 24 hr 04/01/25 13:41: WBC 14.6 H, RBC 4.30, Hgb 13.1, Hct 39.3, MCV 91.4, MCH 30.5, MCHC 33.3, RDW 12.7, Plt Count 397, MPV 11.4 H, Neut % (Auto) 86.1 H, Lymph % (Auto) 7.0 L, [place] % (Auto) 3.4, Eos % (Auto) 2.6, Baso % (Auto) 0.5, Neut # (Auto) 12.5 H, Lymph # (Auto) 1.0, [place] # (Auto) 0.5, Eos # (Auto) 0.4, Baso # (Auto) 0.1, Total Counted 100, Neutrophils % (Manual) 84 H, Lymphocytes % (Manual) 11, Monocytes % (Manual) 2, Eosinophils % (Manual) 3, Platelet Estimate Normal, RBC Morphology Normal, Sodium 139, Potassium 3.6, Chloride 99, Carbon Dioxide 28, Anion Gap 15.6 H, BUN 28 H, Creatinine 1.10 H, Estimated Creat Clear 47, Estimated GFR 48 L, Est GFR ( Amer) 59, Glucose 153 H, Calcium 9.7, Total Bilirubin 0.5, AST 27, ALT 27, Alkaline Phosphatase 192 H, Troponin I 0.18 H, Total Protein 7.1, Albumin 4.0, Globulin 3.1, Albumin/Globulin Ratio 1.3, Lipase 91, HCV Ab KODI w/Rflx PCR Qn Negative, HIV Ag/Ab Combo Qual Negative 04/01/25 15:59: VBG pH 7.38, VBG pCO2 36.9, VBG pO2 41.4 H, VBG HCO3 21.4 L, VBG Total CO2 22.5 L, VBG O2 Saturation 76.6 H, VBG Base Excess -3.7 L, VBG Lactic Acid 1.9 04/01/25 16:43: Troponin I 0.25 H 04/01/25 21:05: Troponin I 0.14 H 04/02/25 05:56: POC Glucose 155 H I & O for Last 24 hours: Intake & Output 03/30/25 03/31/25 04/01/25 04/02/25 11:59 11:59 11:59 11:59 Intake Total 0 / 0 Output Total 400 / 400 Balance -400 / -400 Weight 157 lb 8 oz *Routine Abdominal Exam Abdominal: Present soft and tenderness Comments: Wound dressed and dry. TARA output serosanguineous Progress Note: A&P Assessment and plan (1) Ulcer, gastric, acute, with perforation: Status: Acute Assessment and plan: Postoperative day #1. Start proton pump inhibitor. Possible remove Carmen later. Out of bed to chair. (2) Leukocytosis: Status: Acute (3) Generalized abdominal pain: Status: Acute (4) Hypertension: Status: Acute (5) Hyperlipidemia: Status: Acute
[2025-04-02 06:24] LABS: Nucleated Red Blood Cells % 0 %
[2025-04-02 06:34] LABS: Hematocrit 36.0 % (37.0-47.0); Immature Granulocytes % 0.5 %; Mean Corpuscular HGB Conc 33.3 g/dL (31.8-35.4); Mean Corpuscular Hemoglobin 30.6 pg (27.0-31.2); Mean Corpuscular Volume 91.8 fl (81-99); Platelet Count 396 K/mm3 (142-424); Red Blood Count 3.92 M/mm3 (4.20-5.40); Red Cell Distribution Width-SD 42.7 fL; White Blood Count 20.9 K/mm3 (4.8-10.8)
[2025-04-02 06:38] LABS: Hemoglobin 12.0 g/dL (12.2-16.2)
[2025-04-02 06:40] LABS: Anion Gap 13.5 mEq/L (5-15); Blood Urea Nitrogen 22 mg/dl (7-17); Calcium 8.8 mg/dl (8.4-10.2); Carbon Dioxide 27 mmol/L (22.0-30.0); Chloride 102 mmol/L (98-107); Creatinine Clearance Estimated 55 mL/min (50-200); Creatinine,Serum 0.90 mg/dl (0.52-1.04); Estimated Glomerular Filt Rate 61 ml/min (>60); GFR (African American) 74 ML/MIN (>60); Glucose 164 mg/dl (74-100); Potassium 3.5 mmoL/L (3.5-5.1); Sodium 139 mmol/L (136-145)
--- NOTE | 2025-04-02 07:01 | PC.NURSE ---
Surgeon came by the bedside this morning to check on patient, he stated again and restated that she should not have any medications by mouth or NGT and can only have iv medications at this time and no food or water by mouth at this time to give betty patch time to settle in her stomach from being placed last night and he started her on protonix to be given this morning. Will pass this along to dayshift as well as her WBC increase I noticed in her AM labs this morning.
--- NOTE | 2025-04-02 07:23 | P.PNANES_ITS ---
[facility] Anesthesia Record Part II Anesthesia Record Part II Discharge Time: 22:20 Destination: Intensive Care Unit PACU nurse assessment reviewed?: Yes Patient Condition:: Good Anesthesia Complications:: None Swallowing reflex intact?: Yes Airway Patency: Patent Cyanosis?: No Blood Pressure: 124/67 SaO2: 94 Respiratory Rate: 18 Pulse Rate: 81 Temperature: 99 F Mental Status: Alert & Oriented Pain level:: 4 Nausea and/or vomitting:: None Intake, IV Amount: 0 Hydration: Adequate
--- NOTE | 2025-04-02 07:48 | HMH.PHAINT1 ---
Pharmacy Intervention Comments: MEDICATION RECONCILIATION COMPLETED ON PATIENT USING EXTERNAL FILL HISTORY FROM PHARMACY. -ALIREZA HUMMEL, RISHABHD
--- NOTE | 2025-04-02 08:12 | PC.NURSE ---
patient requested for her Primary Care Doctor to be made aware of her admission to the hospital. Dr. Angeles was made aware @[id number].
--- NOTE | 2025-04-02 08:33 | CA_ITS ---
APPROVED REPORT EXAM: Comprehensive 2D, Doppler, and color-flow Echocardiogram Stores Clerk: Olga Arias RT(R) Ht: 5 ft 6 in Wt: 148lbs BSA: 1.76 BP: 121/65 mmHg Indications: NSTEMI 2D Dimensions Left Atrium 3.23 cm F: 2.7 - 3.8 EF AP4 65.80 % LVOT 1.89 cm (M/F) 1.5-2.5 GL Strain -22.2 % M-Mode Dimensions RVDd 3.58 cm (0.9-2.6) LVDd 3.58 cm (3.5-5.7) Ao Diam 2.48 cm (2.0-3.7) LVDs 2.61 cm (3.5-5.7) IVSd 0.72 cm (0.6-1.1) PWd 0.72 cm (0.6-1.1) EF (Teich) 53.80% FS 27.10% EDV (Teich) 53.70 mL ESV (Teich) 24.80 mL LV Diastology E Decel Time 111 (160-240 msec) E/A Ratio 0.7 MED E' 15.4 (>= 7 cm/sec) E'/MED E' Ratio 4.06 (<= 14) LAT E' 8.5 (>= 10 cm/sec) E/LAT E' Ratio 7.36 (<= 14) Mitral Valve MV E Max Hermilo. 63.0 (40-130 cm/s) MV A Velocity 90.0 (40-130 cm/s) E/A Ratio 0.69 MV Decel. Time 111 (160-240 ms) Left Ventricle The left ventricle is normal size. The left ventricular systolic function is normal. The left ventricular ejection fraction is within the normal range. There is normal left ventricular wall thickness. There is normal LV segmental wall motion. The left ventricular diastolic function is normal. LVEF is 55%. Right Ventricle The right ventricle is normal size. The right ventricular systolic function is normal. Atria The left atrium size is normal. The right atrium size is normal. There is no Doppler evidence of interatrial shunt. Aortic Valve The aortic valve is mildly thickened. There is no aortic valvular stenosis. No aortic regurgitation. Mitral Valve The mitral valve is normal in structure. No evidence of mitral valve stenosis. There is no mitral valve regurgitation noted. Tricuspid Valve Tricuspid valve is grossly normal in structure and function. Trace tricuspid regurgitation. There is insufficient TR jet to estimate RVSP. Pulmonic Valve The pulmonary valve is normal in structure. Trace pulmonic regurgitation. Great Vessels The aortic root is normal in size. IVC is normal in size and collapses >50% with inspiration. Pericardium There is no pericardial effusion. Other Information Study Quality: Fair Conclusion Normal biventricular systolic function. No significant valvular stenosis or regurgitation. Electronically signed by : Yelitza Huitron MD 04/02/2025 17:14:22
[2025-04-02] MEDS: PANTOPRAZOLE 40MG VIAL 40 MG IV ×2 (08:42→20:16)
[2025-04-02] MEDS: SODIUM CHLORIDE 0.9% 10ML VIAL 10 ML IV ×2 (08:42→20:16)
[2025-04-02] MEDS: SODIUM CHLORIDE 0.9% 10ML SYR (RAD ONLY) 10 ML IV (08:42)
--- NOTE | 2025-04-02 09:35 | P.PN_ITS ---
Subjective *Date: 04/02/25 *Time: 09:35 Interval history: Patient had a gastric perforation during the night and presented to the ER and had emergency surgery to repair the perforation. Her pain has improved and she is able to ambulate. Medical Exam Vital signs and Labs for Last 24 Hours: Vital Signs Temp Pulse Pulse Resp BP BP Pulse Ox 04/02/25 09:00 04/02/25 08:01 98.2 F 76 16 99/55 L 95 04/02/25 08:00 95 04/02/25 08:00 76 04/02/25 07:24 18 04/02/25 07:00 04/02/25 06:00 80 12 122/64 92 L 04/02/25 06:00 80 12 122/64 92 L 04/02/25 05:00 04/02/25 04:00 75 04/02/25 04:00 75 7 L 107/60 L 96 04/02/25 04:00 75 7 L 107/60 L 96 04/02/25 03:00 04/02/25 02:00 97 04/02/25 02:00 76 13 95/64 L 97 04/02/25 01:00 04/02/25 00:06 83 04/01/25 23:00 04/01/25 22:46 90 04/01/25 22:20 99.0 F 81 18 124/67 94 L 04/01/25 22:10 99.0 F 82 18 115/62 96 04/01/25 22:00 99.0 F 88 18 145/72 H 94 L 04/01/25 21:50 99.0 F 86 18 156/76 H 95 04/01/25 21:47 95 04/01/25 21:40 99.0 F 86 16 147/76 H 94 L 04/01/25 21:30 99.0 F 85 16 143/86 H 94 L 04/01/25 19:09 97.8 F 74 18 103/63 L 98 04/01/25 19:08 98.7 F 98 H 19 122/75 04/01/25 18:39 98.7 F 98 H 19 116/53 L 96 04/01/25 18:30 98 H 115/63 95 04/01/25 18:00 98 H 18 115/64 96 04/01/25 17:30 99 H 22 115/68 96 04/01/25 17:00 105 H 126/85 96 04/01/25 16:30 94 H 18 125/71 100 04/01/25 16:00 97 H 19 130/71 98 04/01/25 15:45 19 F L 96 H 100 04/01/25 15:30 94 H 126/70 97 04/01/25 15:01 91 H 17 140/72 98 04/01/25 14:00 81 17 109/59 L 98 04/01/25 13:30 821 H 19 128/70 95 04/01/25 13:22 83 18 130/67 98 04/01/25 13:17 97.4 F L 89 18 130/67 98 O2 Del Method O2 Flow Rate 04/02/25 09:00 Room Air 04/02/25 08:01 Room Air 04/02/25 08:00 Room Air 04/02/25 08:00 04/02/25 07:24 04/02/25 07:00 Room Air 04/02/25 06:00 Room Air 04/02/25 06:00 Room Air 04/02/25 05:00 Room Air 04/02/25 04:00 04/02/25 04:00 Room Air 04/02/25 04:00 Room Air 04/02/25 03:00 Nasal Cannula 2 04/02/25 02:00 Nasal Cannula 2 04/02/25 02:00 Nasal Cannula 2 04/02/25 01:00 Nasal Cannula 2 04/02/25 00:06 04/01/25 23:00 Nasal Cannula 2 04/01/25 22:46 04/01/25 22:20 Room Air 04/01/25 22:10 Room Air 04/01/25 22:00 Room Air 04/01/25 21:50 Room Air 04/01/25 21:47 Nasal Cannula 2 04/01/25 21:40 Room Air 04/01/25 21:30 Room Air 04/01/25 19:09 Room Air 04/01/25 19:08 Room Air 04/01/25 18:39 Room Air 04/01/25 18:30 04/01/25 18:00 04/01/25 17:30 Room Air 04/01/25 17:00 04/01/25 16:30 Room Air 04/01/25 16:00 Room Air 04/01/25 15:45 Room Air 04/01/25 15:30 04/01/25 15:01 Room Air 04/01/25 14:00 Room Air 04/01/25 13:30 Room Air 04/01/25 13:22 Room Air 04/01/25 13:17 Room Air Intake and Output 04/01/25 04/02/25 04/02/25 19:59 03:59 11:59 Intake Total 0 / 0 0 / 0 Output Total 835 / 835 Balance 0 / -835 -835 / -835 Intake: Intake, Oral Amount 0 / 0 Intake, Total IV Amount 0 / 0 Output: Output, Urine Amount 400 / 400 Output, Urine Amount (Catheter) 400 / 400 Carmen 400 / 400 Output, Gastric Drainage Amount Right Nare Output, Drainage Amount Right Abdomen Other: Number of Unmeasured Voids 0 Weight 148 lb 157 lb 8 oz Patient Weight 04/02/25 11:59 Weight 157 lb 8 oz Laboratory Results - last 24 hr 04/01/25 13:41: WBC 14.6 H, RBC 4.30, Hgb 13.1, Hct 39.3, MCV 91.4, MCH 30.5, MCHC 33.3, RDW 12.7, Plt Count 397, MPV 11.4 H, Neut % (Auto) 86.1 H, Lymph % (Auto) 7.0 L, [place] % (Auto) 3.4, Eos % (Auto) 2.6, Baso % (Auto) 0.5, Neut # (Auto) 12.5 H, Lymph # (Auto) 1.0, [place] # (Auto) 0.5, Eos # (Auto) 0.4, Baso # (Auto) 0.1, Total Counted 100, Neutrophils % (Manual) 84 H, Lymphocytes % (Manual) 11, Monocytes % (Manual) 2, Eosinophils % (Manual) 3, Platelet Estimate Normal, RBC Morphology Normal, Sodium 139, Potassium 3.6, Chloride 99, Carbon Dioxide 28, Anion Gap 15.6 H, BUN 28 H, Creatinine 1.10 H, Estimated Creat Clear 47, Estimated GFR 48 L, Est GFR ( Amer) 59, Glucose 153 H, Calcium 9.7, Total Bilirubin 0.5, AST 27, ALT 27, Alkaline Phosphatase 192 H, Troponin I 0.18 H, Total Protein 7.1, Albumin 4.0, Globulin 3.1, Albumin/Globulin Ratio 1.3, Lipase 91, HCV Ab KODI w/Rflx PCR Qn Negative, HIV Ag/Ab Combo Qual Negative 04/01/25 15:59: VBG pH 7.38, VBG pCO2 36.9, VBG pO2 41.4 H, VBG HCO3 21.4 L, VBG Total CO2 22.5 L, VBG O2 Saturation 76.6 H, VBG Base Excess -3.7 L, VBG Lactic Acid 1.9 04/01/25 16:43: Troponin I 0.25 H 04/01/25 21:05: Troponin I 0.14 H 04/02/25 04:47: WBC 20.9 H* D, RBC 3.92 L, Hgb 12.0 L, Hct 36.0 L, MCV 91.8, MCH 30.6, MCHC 33.3, RDW 12.9, Plt Count 396, MPV 11.7 H, Neut % (Auto) 91.3 H, Lymph % (Auto) 5.2 L, [place] % (Auto) 2.4, Eos % (Auto) 0.2, Baso % (Auto) 0.4, Neut # (Auto) 19.0 H, Lymph # (Auto) 1.1, [place] # (Auto) 0.5, Eos # (Auto) 0.1, Baso # (Auto) 0.1, Sodium 139, Potassium 3.5, Chloride 102, Carbon Dioxide 27, Anion Gap 13.5, BUN 22 H, Creatinine 0.90, Estimated Creat Clear 55, Estimated GFR 61, Est GFR ( Amer) 74 D, Glucose 164 H, Calcium 8.8 04/02/25 05:56: POC Glucose 155 H I & O for Labs for Last 24 Hours: Intake & Output 03/30/25 03/31/25 04/01/25 04/02/25 11:59 11:59 11:59 11:59 Intake Total 0 / 0 Output Total 835 / 835 Balance -835 / -835 Weight 157 lb 8 oz Constitutional: Present no acute distress Respiratory: Present CTA bilaterally Cardiac: Present Reg Rate and Rhythm GI: Present soft and other (dressing in place over surgical site); Absent tenderness Extremities: Absent edema Neuro: Present alert, awake and oriented x 3 Assessment and Plan *Assessment and plan (1) Ulcer, gastric, acute, with perforation: Status: Acute Category: Medical Code(s): K25.1 - Acute gastric ulcer with perforation Plan: CT of abdomen pelvis reviewed by me: Interval cholecystectomy. Small amount of ascites and intraperitoneal free air. Unclear if this is due to recent surgery or perforated viscus. Abnormal mucosal thickening of the gastric antrum extending into pylorus with associated small lymph nodes. May be inflammatory or neoplastic. Upper endoscopy is highly recommended. CT of abdomen pelvis with oral contrast reviewed by me: Perforated gastric ulcer. Significant bowel wall thickening of the gastric antrum with at least 2 large ulcers. Consistent with gastritis and PUD. Protonix 40 mg IV daily General Surgery took patient to surgery for exploratory laparotomy with repair of prepyloric gastric ulcer using omental pedicle patch Maintain TARA drain and NG tube Patient is n.p.o. Continue Zosyn 3.375 g every 6 hours NS at 75 mL an hour Appreciate general surgery's recommendations (2) Leukocytosis: Status: Acute Category: Medical Code(s): D72.829 - Elevated white blood cell count, unspecified Plan: White count on admission 14.6 Continue Zosyn 3.375 g every 6 hours NS at 75 mL an hour Repeat CBC in the a.m. (3) Generalized abdominal pain: Status: Acute Category: Medical Code(s): R10.84 - Generalized abdominal pain Plan: Continue analgesics as needed for pain (4) Hypertension: Status: Acute Category: Medical Code(s): I10 - Essential (primary) hypertension Plan: Hold losartan 50 mg daily as patient is normotensive at this time BP 124/67 (5) Hyperlipidemia: Status: Acute Category: Medical Code(s): E78.5 - Hyperlipidemia, unspecified Plan: Rosuvastatin 10 mg daily Hold for now patient is n.p.o. Plan Surgery to continue to follow. NG tube in place now. Patient is able to walk.
--- NOTE | 2025-04-02 10:11 | HMH.PTEV ---
Physical Therapy Evaluation Rehab PT IP Evaluation Start: 04/02/25 07:55 Freq: ONCE Status: Active Protocol: Document 04/02/25 10:07 JANESSAANTHONY (Rec: 04/02/25 10:11 MARILU [id number]) Subjective/History History History Per H&P: Ms. Holly is a 74-year-old female presents ER with complaint of shortness of breath. Patient has a past medical history of hypertension, hyperlipidemia, diastolic dysfunction, colon cancers s/p colectomy. Patient had a cholecystectomy 03/25/2025. Patient states about 1130 this morning she had abdominal pain across the middle of her abdomen. She states it felt like a [employer] sword was trying to cut her in half . Patient is status post ex lap today for perforated gastric ulcer. Patient denies fever/chills, cough, congestion, runny nose, dyspnea, chest pain, nausea, vomiting, diarrhea, constipation, headache, lightheadedness, dizziness, or syncope. Subjective Subjective Pt lives alone and is usually IND with all mobility. Pt was about to return to work before she ended up in the hospital from severe pain. New diagnosis of No cancer in past 12 months? [facility] How much help from another person do you currently need... Turning from your A little back to your side while in a flat bed without using bedrails? Moving from lying on A little back to sitting on the side of a flat bed without using bedrails? Moving to and from a A little bed to a chair ( including a wheelchair)? Standing up from a None chair using your arms? (e.g., wheelchair, bedside chair) Walking in hospital None room? Climbing 3-5 steps A little with a railing? Mobility Score 20 Mobility Level [facility] Mobility 6 Walk 10 steps or more Mobility Calculator Rehab PT IP Eval Objective Appearance Patient Behavior Appropriate,Cooperative Patient Orientation Person,Place Difficulty following none instructions Speech Pattern Clear Ambulation Patient Able to Yes Ambulate Ambulation Observation IP General Gait No Deviations/Normal Pattern Observation Ambulation Distance 30 (feet) Ambulation Assistive None Device Ambulation Ability Contact Guard/Hand Hold Balance Ability to Arise Able, uses arms to help Sitting Balance Steady, safe Standing Balance Steady, wide stance Dynamic Sitting Good Balance Ability Dynamic Standing Good Balance Ability Transfers Bed Transfer Ability Moderate x 1 (50% assist) Sit to Stand Bed Supervision/Stand by Transfer Ability Rehab PT IP prob,goals,plan Problems Date of Evaluation: 04/02/25 PT IP Problems Bed Mobility,Transfers,Gait,Balance,Self care,Safety Rehab Potential Rehab Potential Good Plan PT Intervention Plan Bed Mobility,Transfers,Gait,Balance,Self care,Safety, Therapeutic Exercise Other Intervention 1-2 times Plan PT Plan Frequency Daily Duration LOS Discharge Goals Bed Transfer Ability Independent Sit to Stand Chair Independent Transfer Ability Ambulation Assistive None Device Ambulation Distance 100 (feet) Discharge Plan PT Discharge Plan Initial physical therapy evaluation performed. Patient presents below baseline at this time in functional mobility, transfers, gait, and strength. Pt would benefit from skilled PT while at [facility] to prevent further functional decline and maximize safety with mobility. Pt most appropriate to d/c home with assistance/ supervision when deemed medically necessary d/t current level of mobility, home set-up, and friend/family support. PT recommending home health PT services to address deficits. Eval Complexity Eval Charge Codes 10491 - Moderate Complexity PHYSICIAN CERTIFICATION: I certify the specified therapy services for Alyssia Holly are required, authorized, and reviewed every 30 days.
--- NOTE | 2025-04-02 11:05 | HMH.OTEV ---
OT Inpatient Evaluation Rehab OT IP Evaluation Start: 04/02/25 11:01 Freq: ONCE Status: Active Protocol: Document 04/02/25 11:01 BRINDA (Rec: 04/02/25 11:05 BRINDA [id number]) Rehab OT IP Assessment Subjective History Per H&P: Ms. Holly is a 74-year-old female presents ER with complaint of shortness of breath. Patient has a past medical history of hypertension, hyperlipidemia, diastolic dysfunction, colon cancers s/p colectomy. Patient had a cholecystectomy 03/25/2025. Patient states about 1130 this morning she had abdominal pain across the middle of her abdomen. She states it felt like a samurai sword was trying to cut her in half . Patient is status post ex lap today for perforated gastric ulcer. Patient denies fever/chills, cough, congestion, runny nose, dyspnea, chest pain, nausea, vomiting, diarrhea, constipation, headache, lightheadedness, dizziness, or syncope. Subjective Prior to being in the hospital, pt lived at home alone. Pt reports she was independent with all ADLs and IADLs. Pt still drove. 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 Objective Patient Orientation Person,Place,Birthday Right Upper WFL Extremity Gross ROM Left Upper Extremity WFL Gross ROM Bed Mobility bed mobility-scooting,bed mobility - supine/sit Assist Level Minimal x 2 (25% assist) Transfer Training Sit/Stand Transfer Assist Level Contact Guard/Hand Hold Lower Body Dressing Moderate Assistance Ability Rehab OT IP prob,goals,plan Problems Date of Evaluation: 04/02/25 OT IP Problems Bed Mobility,Transfers,Balance,Self care,Safety Rehab Potential Rehab Potential Good Equipment Needs Assistive Devices Rolling / Wheeled Walker Plan OT intervention Plan Bed Mobility,Transfers,Balance,Self care,Safety, Therapeutic Exercise OT Plan Frequency Daily Duration LOS Discharge Goals Bed Mobility Ability Standby Assistance Sit to Stand Chair Supervision/Stand by Transfer Ability Chair Transfer Supervision/Stand by,Contact Guard/Hand Hold Ability Chair Transfer Sit to/from Ambulatory Technique Chair Transfer Rolling Walker Assistive Devices Lower Body Dressing Minimal Assistance Ability Upper Body Dressing Standby Assistance Ability Performing Toilet Standby Assistance Hygiene Ability Commode/Toilet Sit to/from Ambulatory Transfer Technique Discharge Plan OT Discharge Plan Initial occupational therapy evaluation performed. Patient presents below baseline at this time in functional transfers, ADL independence, and strength. Pt would benefit from skilled OT while at [facility] to prevent further functional decline and maximize safety and independence. Pt most appropriate to d/c home with assistance/supervision when deemed medically necessary d/t current level of functional independence, home set- up, and friend/family support. OT recommending home health OT services to address deficits. Eval Complexity Eval Charge Codes 08035 - Moderate Complexity PHYSICIAN CERTIFICATION: I certify the specified therapy services for Alyssia Holly are required, authorized, and reviewed every 30 days.
[2025-04-02 12:06] LABS: POC Glucose,Bedside 130 (70-110)
[2025-04-02] MEDS: 0.9 % SODIUM CHLORIDE 1000ML 1,000 ML 75 ML IV (12:37)
--- NOTE | 2025-04-02 13:00 | PC.NURSE ---
Carmen Catheter removed. Carmen Catheter tube intact. Patient tolerated well. Continuation of care plan.
--- NOTE | 2025-04-02 13:51 | EXP.CARD.CON ---
History of Present Illness History of Present Illness Consult date: 04/02/25 Requesting physician: Efrain Kelley Chief complaint: abdominal pain History of present illness: 74-year-old white female without known cardiovascular disease reports normal cardiac workup 3 to 4 years ago presents with abdominal pain. Patient recently status post cholecystectomy. Presented here with acute severe ripping sensation in her mid abdomen which she states was the worst pain of her life. On workup was found to have perforated gastric ulcer and underwent emergent surgery yesterday. There was mild associated elevated troponin which is why we are consulted. She has EKG showing sinus rhythm without acute ischemia, patient denies anginal symptoms, 2D echo prelim shows normal EF and no wall motion changes. She reports seeing a linoleum floor layer in [place] once yearly due to family history of heart disease and prior testing has always been normal according to her. [facility] Disclaimer: The information contained in this section may have been updated after the patient was seen, as this information can be updated by other users. Medical History Impacted cerumen of right ear History of deviated nasal septum Cancer Urinary tract infection Kidney stone Hyperlipidemia Hypertension History of colon cancer Cataract Hearing loss, bilateral Tinnitus, bilateral Bilateral impacted cerumen Coronary artery calcification seen on CAT scan Former smoker Palpitations Diastolic dysfunction Abnormal echocardiogram Surgical History History of laparoscopic cholecystectomy History of cataract surgery History of eye surgery History of spinal fusion Hx of tonsillectomy H/O colonoscopy H/O hemicolectomy S/P hip replacement Family History Other Family history of cancer Family history of coronary artery disease Social History Smoking Status: Never smoker alcohol intake: never counseling provided: provider counseling substance use type: denies use current occupational status: employed Travel in the last 8 weeks?: None household members: none housing: house current occupation: [employer] current occupational exposures/hazards: No caffeine: Yes Have you lived/traveled outside [place] in past 30 days?: No Contact w/someone who lives/traveled outside US past 30 days?: No Exposure to someone with infectious disease in past 14 days?: No Do you have a fever (greater than 100.4 F or 38 C)?: No Have you tested positive for COVID-19?: No Exposed to someone with COVID-19 in past 14 days?: No Do you have a sore throat?: No Do you have a cough?: No Do you have any weakness?: No Are you experiencing any nausea/vomitting?: No Do you have any diarrhea?: No Are you experiencing any unusual bleeding?: No Do you have any muscle aches/pain?: No Do you have any abdominal pain?: Yes Are you experiencing loss of taste or smell?: No Review of Systems Constitutional Constitutional: Denies headache(s) Eyes Eyes: Denies loss of vision ENT Ears, Nose, Mouth, and Throat: Denies dizziness and Denies headache(s) *Cardiovascular Cardiovascular: Denies chest pain and Denies dyspnea *Respiratory Respiratory: Denies cough and Denies dyspnea *Gastrointestinal Gastrointestinal: Reports as per HPI, Reports abdominal pain, Denies change in stool character, Denies nausea and Denies vomiting *Musculoskeletal Musculoskeletal: Denies muscle weakness Integumentary/Breasts Skin/Breast: Denies changing lesions *Neurologic Neurologic: Denies dizziness, Denies headache(s) and Denies loss of vision Exam Data for Last 24 hours Vital signs and Labs for Last 24 Hours: Temp Pulse Resp BP Pulse Ox O2 Del Method O2 Flow Rate 97.9 F 80 18 113/62 94 L Room Air 2 04/02/25 12:00 04/02/25 12:00 04/02/25 12:00 04/02/25 12:00 04/02/25 12:00 04/02/25 13:00 04/02/25 03:00 Laboratory Results - last 24 hr 04/01/25 13:41: WBC 14.6 H, RBC 4.30, Hgb 13.1, Hct 39.3, MCV 91.4, MCH 30.5, MCHC 33.3, RDW 12.7, Plt Count 397, MPV 11.4 H, Neut % (Auto) 86.1 H, Lymph % (Auto) 7.0 L, [place] % (Auto) 3.4, Eos % (Auto) 2.6, Baso % (Auto) 0.5, Neut # (Auto) 12.5 H, Lymph # (Auto) 1.0, [place] # (Auto) 0.5, Eos # (Auto) 0.4, Baso # (Auto) 0.1, Total Counted 100, Neutrophils % (Manual) 84 H, Lymphocytes % (Manual) 11, Monocytes % (Manual) 2, Eosinophils % (Manual) 3, Platelet Estimate Normal, RBC Morphology Normal, Sodium 139, Potassium 3.6, Chloride 99, Carbon Dioxide 28, Anion Gap 15.6 H, BUN 28 H, Creatinine 1.10 H, Estimated Creat Clear 47, Estimated GFR 48 L, Est GFR ( Amer) 59, Glucose 153 H, Calcium 9.7, Total Bilirubin 0.5, AST 27, ALT 27, Alkaline Phosphatase 192 H, Troponin I 0.18 H, Total Protein 7.1, Albumin 4.0, Globulin 3.1, Albumin/Globulin Ratio 1.3, Lipase 91, HCV Ab KODI w/Rflx PCR Qn Negative, HIV Ag/Ab Combo Qual Negative 04/01/25 15:59: VBG pH 7.38, VBG pCO2 36.9, VBG pO2 41.4 H, VBG HCO3 21.4 L, VBG Total CO2 22.5 L, VBG O2 Saturation 76.6 H, VBG Base Excess -3.7 L, VBG Lactic Acid 1.9 04/01/25 16:43: Troponin I 0.25 H 04/01/25 21:05: Troponin I 0.14 H 04/02/25 04:47: WBC 20.9 H* D, RBC 3.92 L, Hgb 12.0 L, Hct 36.0 L, MCV 91.8, MCH 30.6, MCHC 33.3, RDW 12.9, Plt Count 396, MPV 11.7 H, Neut % (Auto) 91.3 H, Lymph % (Auto) 5.2 L, [place] % (Auto) 2.4, Eos % (Auto) 0.2, Baso % (Auto) 0.4, Neut # (Auto) 19.0 H, Lymph # (Auto) 1.1, [place] # (Auto) 0.5, Eos # (Auto) 0.1, Baso # (Auto) 0.1, Sodium 139, Potassium 3.5, Chloride 102, Carbon Dioxide 27, Anion Gap 13.5, BUN 22 H, Creatinine 0.90, Estimated Creat Clear 55, Estimated GFR 61, Est GFR ( Amer) 74 D, Glucose 164 H, Calcium 8.8 04/02/25 05:56: POC Glucose 155 H 04/02/25 11:58: POC Glucose 130 H I & O for Last 24 hours: Intake & Output 03/30/25 03/31/25 04/01/25 04/02/25 23:59 23:59 23:59 23:59 Intake Total 0 / 0 Output Total 835 / 835 Balance -835 / -835 Weight 148 lb 157 lb 8 oz Meds Home Medications and Allergies Home Medications ?Medication ?Instructions ?Recorded ?Confirmed ?Type losartan 50 mg tablet 25 mg PO DAILY 03/19/24 04/02/25 History potassium chloride 10 mEq 10 meq PO BID 03/19/24 04/02/25 History tablet,extended release rosuvastatin 10 mg tablet 10 mg PO MOWEFR 03/19/24 04/02/25 History triamterene 37.5 1 tab PO DAILY 03/19/24 04/02/25 History mg-hydrochlorothiazide 25 mg tablet aspirin 81 mg tablet,delayed 81 mg PO DAILY 11/18/24 04/01/25 History release diclofenac sodium 100 mg 100 mg PO DAILY 02/10/25 04/02/25 History tablet,extended release 24 hr dutasteride 0.5 mg capsule 0.5 mg PO DAILY 04/02/25 04/02/25 History minoxidil 2.5 mg tablet 1.25 mg PO DAILY 04/02/25 04/02/25 History New Prescriptions to Start Prescriptions: Allergies Allergy/AdvReac Type Severity Reaction Status Date / Time nickel Allergy Rash Verified 03/31/25 14:46 lysol Allergy Intermediate Swelling Uncoded 03/31/25 14:46 of Lip/Tongue/Throat Assessment and Plan *Assessment and plan (1) Elevated troponin: Status: Acute Category: Medical Code(s): R79.89 - Other specified abnormal findings of blood chemistry (2) Perforated gastric ulcer: Status: Acute Category: Medical Code(s): K25.5 - Chronic or unspecified gastric ulcer with perforation (3) Leukocytosis: Status: Acute Category: Medical Code(s): D72.829 - Elevated white blood cell count, unspecified Plan Elevated troponin, demand ischemia - This was not NSTEMI. Mild troponin elevation in setting of perforated gastric ulcer. She has no anginal symptoms, no acute changes on EKG, normal EF and no wall motion changes noted on echo - No further inpatient workup is warranted - Elevated troponin for any reason does portend increased risk for underlying CAD. She has had prior outpatient cardiac workup and follows with a linoleum floor layer in [place] once yearly. She can follow-up with them postdischarge. She would not be a candidate for DAPT therapy in the setting of perforated gastric ulcer. Perforated gastric ulcer - Status post emergency surgery - NG tube remains in place, patient states symptoms are improving CV stable, no further inpatient workup warranted at this time. Patient should have scheduled follow-up with her linoleum floor layer postdischarge.
[2025-04-02] MEDS: SODIUM CHLORIDE IV (14:17)
[2025-04-02] MEDS: [UNRECOGNIZED DRUG - OTHER] IV (14:17)
[2025-04-02] MEDS: FLUCONAZOLE IV (14:17)
--- OUTSIDE RECORDS SUMMARY | 2025-04-02 15:00 | XMS_ITS | Encounter Summary ---
Author Organization Healthcare Address [address] [place] [address] Care Team Providers Care Database Software Technician Name Role Phone Nate Mills MD Primary Care Provider [phone] Efrain [place] MD Primary Care Provider [phone] Encounter Details Date Type Department Care Team (Late Contact Info) Description 02/20/2024 Orders Only External Location [address] [place] [address] Provider, External Social History Tobacco Use Types [...] Upcoming Encounters Date Type Department Care Team ([facility] Contact Info) Description 04/26/2025 10:30 AM EDT Office Visit [facility] [address] [place] [id number] 04/26/2025 11:30 AM EDT Office Visit [facility] [address] [place] [address] Ebony Albrecht MD [address] [phone] documented as of this encounter Procedures Procedure [...] on filedocumented in this encounter Care Teams Database Software Technician Relationship Specialty Start Date End Date Nate Mills MD [address] [place] [facility] [address] [place] [id number] PCP - General 09/23/20 04/02/24 Efrain [place] MD [address] [place] [facility] [address] [place] [address] PCP - General 04/03/24 documented as of this encounter
--- OUTSIDE RECORDS SUMMARY | 2025-04-02 15:01 | XMS_ITS | Encounter Summary ---
Author Organization [facility] Address [address] [place] [address] Care Team Providers Care Bathhouse Keeper Name Role Phone Nate Mills MD Primary Care Provider [phone] Efrain Angeles MD Primary Care Provider [phone] Encounter Details Date Type Department Care Team (Late st Contact Info) Description 03/29/2023 Orders Only [facility] [address] [place] [address] Ebony Albrecht MD [address] [address] Social History Tobacco Use Types [...] Description 04/26/2025 10:30 AM EDT Office Visit [facility] [address] [place] [phone] 04/26/2025 11:30 AM EDT Office Visit [facility] [address] [place] [address] Ebony Albrecht MD [address] [facility] [address] [place] [address] documented as of this encounter Procedures Procedure [...] Re sult [facility] [address] [place] [address], documented in this encounter Visit Diagnoses Not on filedocumented in this encounter Care Teams Bathhouse Keeper Relationship Specialty Start Date End Date Nate Mills MD [address] [facility] [address] [place] [address] PCP - General 09/23/20 04/02/24 Efrain Angeles MD 1210 [facility] [address] [facility] [address] [place] [address] PCP - General 04/03/24 documented as of this encounter
--- OUTSIDE RECORDS SUMMARY | 2025-04-02 15:01 | XMS_ITS | Clinical Summary ---
Author Organization [facility] Address [address] [place] [address] Care Team Providers Care Records Supervisor Name Role Phone Efrain Angeles MD Primary Care Provider [phone] Allergies Active Allergy Reactions Criticality Noted Date [...] Office Visit [facility] [address] [place] [address] 04/26/2025 11:30 AM EDT Office Visit [facility] [address] [place] [address] Ebony Albrecht MD [address] [place] [address] Health Maintenance Due Date Last Done Comments [...] UKY-Zoster Vaccines (2 of 2) 07/01/2020 05/06/2020 [id number] Vaccine ( - 2023- season) 2024 06/14/2021, [...] complete this topic Insurance MEDICARE Care Teams Records Supervisor Relationship Specialty Start Date End Date Efrain Angeles MD [address] [place] [id number] PCP - General 04/03/24
--- OUTSIDE RECORDS SUMMARY | 2025-04-02 15:01 | XMS_ITS | Continuity of Care Document ---
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 From Automated Load;Provi alex: Samira Oh;Sta tus: Active Not Available [facility] 6 10:00:49 Idiopathi c osteoarth ritis 648294620 Active 2015 From Automated Load;Provi alex: Samira Oh;Sta tus: Active Not Available [facility] 6 10:00:49 Acquired trigger finger 0772802 Active 2015 From Automated Load;Provi alex: [place], [place]; atus: Active Not Available [facility] 6 10:00:49 Low back pain 868467598 Active 2015 Provider: Mckayla Sawant;Carlito tus: Active Not Available [facility] 6 10:00:49 Pain in right lower limb 799718823 Active 2015 From Automated Load;Provi alex: Mckayla Sawant;Sta tus: Active Not Available [facility] 7 08:17:17 Problem Notes None recorded. Procedures Surgical History Date Name Laterality Status Provider Name and Address Organization Details Recorded Time 12/03/19 Audiogram completed BOB FERNANDEZ, AUD [address] [place], [address], [facility] 12/02/2024 14:15:27 02/04/20 24 Cervical Epidural Steroid Injection - Edith completed BINTA VALLE MD [address] [place], [address], [facility] 02/04/2024 16:42:53 12/10/19 24 Lumbar Epidural Steroid Injection - Edith completed BINTA VALLE MD [address] [place], [address], [facility] 12/10/2023 13:08:38 10/15/19 24 Injection Joint/Bursa, Major completed Steve Jiang [facility] 11/03/2023 10:26:01 07/17/20 23 PTNM; single treatment completed Lissette Llanes [facility] 07/17/2023 10:20:48 07/10/20 23 PTNM; single treatment completed Lissette Llanes [facility] 07/10/2023 10:57:02 07/03/20 23 PTNM; single treatment completed Lissette Llanes [facility] 07/03/2023 10:00:46 06/26/20 Tympanogram completed BOB FERNANDEZ, AUD [address] [place], [address], [facility] 06/26/2023 14:08:53 06/26/20 Audiogram completed BOB FERNANDEZ AUD [address] [place], [address], [facility] 06/26/2023 13:46:18 06/26/20 PTNM; single treatment completed Lissette Llanes [place] [facility] 06/26/2023 09:57:04 06/19/20 PTNM; single treatment completed Lissette Llanes [place] [facility] 06/19/2023 10:02:20 06/18/20 Injection Joint/Bursa, Major completed SAMIRA VELASQUEZ MD [address] [place], [address], [facility] 06/18/2023 18:09:20 06/12/20 PTNM; single treatment completed Lissette Llanes [place] [facility] 06/12/2023 09:32:33 06/05/20 PTNM; single treatment completed Lissette Llanes [place] [facility] 06/05/2023 10:11:13 05/22/20 PTNM; single treatment completed Lissette Llanes [facility] 05/22/2023 09:36:10 05/15/20 PTNM; single treatment completed Lissette Llanes [place] [facility] 05/15/2023 10:24:29 05/08/20 PTNM; single treatment completed Lissette Llanes [place] [facility] 05/08/2023 09:34:42 05/01/20 PTNM; single treatment completed Lissette Llanes [place] [facility] 05/01/2023 09:38:00 04/24/20 PTNM; single treatment completed Lissette Llanes [place] [facility] 04/24/2023 10:00:07 03/19/20 Injection Joint/Bursa, Major completed SAMIRA VELASQUEZ MD [address] [place], [address], [facility] 03/19/2023 19:21:27 01/03/20 PTNM; single treatment completed Lissette Llanes [place] [facility] 01/02/2023 14:15:39 11/29/19 23 PTNM; single treatment completed Lissette Llanes [facility] 11/28/2022 11:13:43 11/07/19 23 PNE Implantation; Sacral Nerve completed Lissette Llanes [facility] 11/07/2022 15:36:06 10/10/19 23 PTNM; single treatment completed Lissette Llanes [facility] 10/10/2022 14:05:47 08/28/20 22 PTNM; single treatment completed Lissette Llanes [facility] 08/28/2022 16:08:39 07/18/20 22 PTNM; single treatment completed Lissette Llanes [facility] 07/18/2022 14:06:01 06/12/20 22 PTNM; single treatment completed Lissette Llanes [facility] 06/12/2022 09:28:34 04/30/20 PTNM; single treatment completed Lissette Llanes [facility] 04/30/2022 09:46:41 03/28/20 PTNM; single treatment completed Lissette Llanes [facility] 03/28/2022 12:10:29 02/03/20 PTNM; single treatment completed Marian Zamorano [facility] 02/02/2022 12:54:09 01/06/20 PTNM; single treatment completed Lissette Llanes [facility] 01/05/2022 09:43:05 12/09/19 22 PTNM; single treatment completed Lissette Llanes [facility] 12/08/2021 09:16:36 11/03/19 22 Orthotic, HFO, Static Custom completed MARIANO LUCERO JR, OTR/L, T [address] [place], [address], [facility] 11/03/2021 10:19:47 11/01/19 22 PTNM; single treatment completed Shamika Cook [facility] 11/01/2021 14:15:16 09/27/19 22 PTNM; single treatment completed Lissette Llanes [facility] 09/27/2021 13:44:55 08/30/20 21 PTNM; single treatment completed Lissette Llanes [place] [facility] 08/30/2021 13:49:55 08/02/20 PTNM; single treatment completed Lissette Llanes [place] [facility] 08/02/2021 13:39:59 07/05/20 PTNM; single treatment completed Fredericeriee Gwynedd [place] [facility] 07/05/2021 14:16:42 06/08/20 Audiogram completed BOB REBECCA, AUD [address] [place], [address], [facility] 06/08/2021 14:36:24 06/07/20 PTNM; single treatment completed Lissette Llanes [place] [facility] 06/07/2021 13:51:12 05/10/20 PTNM; single treatment completed Lissette Llanes [place] [facility] 05/10/2021 13:50:25 04/12/20 PTNM; single treatment completed Fredericeriee G[place]d [place] [facility] 04/12/2021 14:41:42 03/15/20 PTNM; single treatment completed Shamika Cook [facility] 03/15/2021 14:14:49 02/16/20 PTNM; single treatment completed Marian Zamorano [place] [facility] 02/15/2021 14:11:53 01/19/20 PTNM; single treatment completed Lissette Llanes [facility] 01/18/2021 15:01:10 12/15/19 PTNM; single treatment completed Lissette Llanes [place] [facility] 12/14/2020 14:29:21 11/16/19 PTNM; single treatment completed Lissette Llanes [place] [facility] 11/16/2020 14:08:30 10/19/19 PTNM; single treatment completed Lissette Llanes [place] [facility] 10/19/2020 14:14:48 09/21/20 PTNM; single treatment completed Fredericeriee [place] [facility] 09/21/2020 14:10:25 08/17/20 PTNM; single treatment completed Lissette Llanes [place] [facility] 08/17/2020 12:42:47 07/20/20 PTNM; single treatment completed Lissette Llanes [place] [facility] 07/20/2020 14:31:41 06/22/20 PTNM; single treatment completed Lissette Llanes [place] [facility] 06/22/2020 15:07:04 05/25/20 PTNM; single treatment completed Lissette Llanes [place] [facility] 05/25/2020 14:54:12 04/27/20 PTNM; single treatment completed Lissette Llanes [place] [facility] 04/27/2020 15:14:35 03/30/20 PTNM; single treatment completed Elton Roth [place] [facility] 03/30/2020 13:54:01 02/24/20 PTNM; single treatment completed Lissette Llanes [place] [facility] 02/24/2020 12:22:05 01/28/20 PTNM; single treatment completed Lissette Llanes [place] [facility] 01/28/2020 14:31:41 12/02/19 PTNM; single treatment completed Lissette Llanes [place] [facility] 12/02/2019 13:41:35 10/28/19 PTNM; single treatment completed Lissette Llanes [place] [facility] 10/28/2019 13:34:17 09/30/19 PTNM; single treatment completed Lissette Llanes [place] [facility] 09/30/2019 13:36:55 08/26/20 PTNM; single treatment completed Lissette Llanes [place] [facility] 08/26/2019 14:23:11 07/29/20 PTNM; single treatment completed Elton Roth [place] [facility] 07/29/2019 13:40:34 06/24/20 PTNM; single treatment completed Lissette Llanes [place] [facility] 06/24/2019 13:47:33 05/27/20 PTNM; single treatment completed Aby Garland [place] [facility] 05/27/2019 13:26:10 04/22/20 PTNM; single treatment completed Lissette Llanes [place] [facility] 04/22/2019 13:48:48 03/25/20 PTNM; single treatment completed Lissette Llanes [place] [facility] 03/25/2019 13:38:21 05/29/20 19 PTNM; single treatment completed Lissette Carranzaford [place] [facility] 02/18/2019 13:36:03 01/22/20 19 PTNM; single treatment completed Lissette Llanes [place] [facility] 01/21/2019 13:28:09 12/25/19 19 PTNM; single treatment completed Deseriee Gwynedd [place] [facility] 12/24/2018 13:27:25 11/27/19 19 PTNM; single treatment completed Lissette Llanes [place] [facility] 11/26/2018 13:23:30 10/29/19 19 PTNM; single treatment completed Lissette Carranzaford [place] [facility] 10/29/2018 13:24:59 10/01/19 19 PTNM; single treatment completed Lissette Llanes [place] [facility] 10/01/2018 13:37:18 09/03/20 18 PTNM; single treatment completed Lissette Llanes [place] [facility] 09/03/2018 14:01:41 08/06/20 18 PTNM; single treatment completed Deseriee Gwynedd [place] [facility] 08/06/2018 13:24:22 07/09/20 18 PTNM; single treatment completed Deseriee [place] [facility] 07/09/2018 13:53:27 06/11/20 18 PTNM; single treatment completed Deseriee G[place]d [place] [facility] 06/11/2018 13:43:34 05/14/20 18 PTNM; single treatment completed Lissette Llanes [place] [facility] 05/14/2018 13:35:13 04/16/20 18 PTNM; single treatment completed Lissette Llanes [place] [facility] 04/16/2018 13:40:58 03/19/20 18 PTNM; single treatment completed Lissettemissy Carranzaford [place] [facility] 03/19/2018 15:35:10 02/20/20 18 PTNM; single treatment completed Lissettemissy Carranzaford [place] [facility] 02/19/2018 13:52:08 02/13/20 18 PTNM; single treatment completed Lissettemissy Carranzaford [place] [facility] 02/12/2018 14:51:22 02/06/20 18 PTNM; single treatment completed Lissettemissy Carranzaford [place] [facility] 02/05/2018 14:19:59 01/30/20 18 PTNM; single treatment completed [facility] 01/29/2018 14:04:02 01/23/20 18 PTNM; single treatment completed Lissette Llanes [facility] 01/22/2018 13:51:44 01/16/20 18 PTNM; single treatment completed Lissette Llanes [facility] 01/15/2018 14:31:08 01/09/20 18 PTNM; single treatment completed Lissette Llanes [facility] 01/08/2018 14:04:38 01/02/20 18 PTNM; single treatment completed Lissette Llanes [facility] 01/01/2018 14:04:04 12/26/19 18 PTNM; single treatment completed Lissette Llanes [facility] 12/25/2017 13:48:37 12/19/19 18 PTNM; single treatment completed Lissette Llanes [facility] 12/18/2017 14:07:42 12/14/19 18 Injection Joint/Bursa, Major completed SAMIRA VELASQUEZ MD [address] [place], [address], [place] [facility] 12/13/2017 08:27:52 12/12/19 18 PTNM; single treatment completed Lissette Llanes [facility] 12/11/2017 14:38:33 12/05/19 18 PTNM; single treatment completed Lissette Llanes [facility] 12/04/2017 14:31:53 11/20/19 17 Injection Joint/Bursa, Major, w/o US completed SAMIRA VELASQUEZ MD [address] [place], [address], [place] [facility] 11/20/2016 16:42:55 09/23/19 16 Back Surgery completed Mita Omalley [facility] 11/27/2023 09:40:35 Total hip arthroplasty completed Pawan Storm [facility] 02/13/2019 08:01:33 Total Colectomy completed Мария Charles [facility] 01/20/2018 14:24:43 Tonsillectomy completed Мария Charles [facility] 01/20/2018 14:24:49 Hip Replacement completed [facility] 01/20/2018 14:25:08 Imaging Results None recorded. [...] Tobacco Smoking Status Former Smoker Cleo Ibarra [facility] 09/21/2016 10:43:51 Accident Related Injury No [...] available 01/14/2024 What Is Your Relationship Status? [email or web address] Information not available 11/27/2023 How Much Tobacco Do You Smoke? No [email or web address] Information not available 06/10/2020 Has Tobacco Cessation Counseling Been Provided? No [email or web address] Information not available 11/27/2023 Work Related Injury? [...] N Immune System Disorder N Heart Attack (AR) N Mental Illness N Neurological Problems N [...] SNOMED-CT Code Diagnosis ICD10 Code Diagnosis Note [id number] GILDA FAN NG, AUD [place] [address] [place] [address] 02/03/2025 10:41:42 02/04/2025 15:21:21 Health Concerns Section Related Observation LastModified by Organization Detai ls LastModified Time None Recorded Concern Status LastModified by Organization Details LastModified Time None Recorded Payers Encounter Date Sequence Insurance Name Policy Number Policy Lindsay Covered Member ID Lindsay Member ID Guarantor Name 02/03/2025 1 [place] Alyssia Holly [id number] Alyssia Holly 02/03/2025 2 [facility]IC[facility] SUPPLE[facility]) Alyssia Holly [id number] Alyssia Holly OBGyn Episode No OBEpisode recorded.
--- OUTSIDE RECORDS SUMMARY | 2025-04-02 15:01 | XMS_ITS | Encounter Summary ---
Author Organization [facility] Address [address] [place] [address] Care Team Providers Care Maintenance And Operations Supervisor Name Role Phone Nate Mills MD Primary Care Provider [phone] Efrain Angeles MD Primary Care Provider [phone] Encounter Details Date Type Department Care Team (Late st Contact Info) Description 03/29/2023 Orders Only [facility] [address] [place] [phone] Ebony Albrecht MD [address] [address] Social History Tobacco Use Types [...] EDT Office Visit [facility] [address] [place] [address] 04/26/2025 11:30 AM EDT Office Visit [facility] [address] [place] [address] Ebony Albrecht MD [address] [facility] [address] [place] [address] documented as of this encounter Procedures Procedure Name Priority Date/Time Associated Diagnosis Comments CBC WITH AUTO DIFFERENTIAL Routine 03/29/2023 9:07 AM EDT documented in this encounter Results * (ABNORMAL) CBC and Differential (03/29/2023 9:07 AM EDT) External WBC 12.7(H) 3.8 - 10.8 10*3/uL 03/29/2023 9:26 AM EDT [facility] External Red Blood Cell (RBC) 4.66 3.80 - 5.20 10*6/uL 03/29/2023 9:26 AM EDT [facility] External Hemoglobin 14.4 12.0 - 16.0 g/dL 03/29/2023 9:26 AM EDT [facility] External Hematocrit 42.6 35.0 - 47.0 % 03/29/2023 9:26 AM EDT [facility] External MCV 92 80 - 100 fL 03/29/2023 9:26 AM EDT [facility] External MCH 31 26 - 35 pg 03/29/2023 9:26 AM EDT [facility] External MCHC 34 32 - 36 g/dL 03/29/2023 9:26 AM EDT [facility] External RDW 13.7 11.0 - 15.0 % 03/29/2023 9:26 AM EDT [facility] External Mean Platelet Volume 9.7 6.2 - 10.5 fL 03/29/2023 9:26 AM EDT [facility] External Platelets 254 130 - 400 10*3/uL 03/29/2023 9:26 AM EDT [facility] External Neutrophil# 8.9(H) 1.6 - 8.4 10*3/uL 03/29/2023 9:26 AM EDT [facility] External Lymphocyte# 2.7 0.4 - 5.1 10*3/uL 03/29/2023 9:26 AM EDT [facility] External Absolute Monocyte (Abs Hudson) 0.7 0.0 - 1.2 10*3/uL 03/29/2023 9:26 AM EDT [facility] External Eosinophils# 0.3 0.0 - 0.8 10*3/uL 03/29/2023 9:26 AM EDT [facility] External Baso# 0.1 0.0 - 0.3 10*3/uL 03/29/2023 9:26 AM EDT [facility] External Neutrophils % 70.2 42.0 - 78.0 % 03/29/2023 9:26 AM EDT [facility] External Lymphocyte % 20.9 11.0 - 47.0 % 03/29/2023 9:26 AM EDT [facility] External Monocyte % 5.6 0.0 - 11.0 % 03/29/2023 9:26 AM EDT [facility] External Eosinophil% 2.7 0.0 - 7.0 % 03/29/2023 9:26 AM EDT [facility] External Basophil % 0.6 0.0 - 3.0 % 03/29/2023 9:26 AM EDT [facility] External Nucleated RBC%-Auto 0.0 0.0 - 0.9 % 03/29/2023 9:26 AM EDT [facility] External Nucleated RBC Absolute 0.00 Not Estab. 10*3/uL 03/29/2023 9:26 AM EDT [facility] 03/29/2023 9:07 AM EDT 03/29/2023 9:22 AM EDT us Ebony Albrecht MD LAB BLOOD ORDERABLES Final Re sult [facility] [address] [place] [address], documented in this encounter Visit Diagnoses Not on filedocumented in this encounter Care Teams Maintenance And Operations Supervisor Relationship Specialty Start Date End Date Nate Mills MD [facility] [place] [address] PCP - General 09/23/20 04/02/24 Efrain Angeles MD [address] [place] [address] PCP - General 04/03/24 documented as of this encounter
--- OUTSIDE RECORDS SUMMARY | 2025-04-02 15:01 | XMS_ITS | Encounter Summary ---
Author Organization [facility] Address [address] [place] [address] Care Team Providers Care It Architecture Analyst Name Role Phone Nate Mills MD Primary Care Provider [phone] Efrain Angeles MD Primary Care Provider [phone] Encounter Details Date Type Department Care Team (Late st Contact Info) Description 03/29/2023 Orders Only [facility] [address] [place] [phone] Ebony Albrecht MD [address] [phone] Social History Tobacco Use Types [...] Description 04/26/2025 10:30 AM EDT Office Visit [facility] [address] [place] [phone] 04/26/2025 11:30 AM EDT Office Visit [facility] [address] [place] [phone] Ebony Albrecht MD [address] [phone] documented as of this encounter Procedures Procedure Name Priority Date/Time Associated Diagnosis Comments COMPREHENSIVE METABOLIC PANEL, PLASMA Routine 03/29/2023 9:07 AM EDT documented in this encounter Results * (ABNORMAL) Comprehensive Metabolic Panel, Plasma (03/29/2023 9:07 AM EDT) External Glucose 108(H) 74 - 100 mg/dL 03/29/2023 9:52 AM EDT [facility] External BUN 16 6 - 20 mg/dL 03/29/2023 9:52 AM EDT [facility] External Creatinine Blood 0.69 0.50 - 0.95 mg/dL 03/29/2023 9:52 AM EDT [facility] External BUN/Creat Ratio 23(H) 10 - 20 (calc) 03/29/2023 9:52 AM EDT [facility] External Sodium 140 136 - 145 mmol/L 03/29/2023 9:52 AM EDT [facility] External Potassium 3.9 3.4 - 5.0 mmol/L 03/29/2023 9:52 AM EDT [facility] External Chloride 102 98 - 107 mmol/L 03/29/2023 9:52 AM EDT [facility] External Carbon Dioxide 28 22 - 31 mmol/L 03/29/2023 9:52 AM EDT [facility] External Anion Gap (AG) 10 7 - 25 (calc) 03/29/2023 9:52 AM EDT [facility] External Calcium 9.7 8.6 - 10.2 mg/dL 03/29/2023 9:52 AM EDT [facility] External Total Protein 7.4 6.4 - 8.3 g/dL 03/29/2023 9:52 AM EDT [facility] External Albumin 4.4 3.5 - 5.2 g/dL 03/29/2023 9:52 AM EDT [facility] External Globulin 3.0 1.5 - 4.5 023 9:52 AM EDT [facility] External Albumin/Globulin Ratio 1.5 1.1 - 2.5 (calc) 03/29/2023 9:52 AM EDT [facility] External Bilirubin Total 0.6 0.1 - 1.2 mg/dL 03/29/2023 9:52 AM EDT [facility] External Alkaline Phosphatase 107 30 - 121 U/L 03/29/2023 9:52 AM EDT [facility] External AST (SGOT) 29 0 - 32 U/L 03/29/2023 9:52 AM EDT [facility] External ALT (SGPT) 36(H) 0 - 33 U/L 03/29/2023 9:52 AM EDT [facility] External Estimated GFR 91 >=60 03/29/2023 9:52 AM EDT [facility] Comment: NOTE New calculation for GFR (CKD-EPI 2020) is formulated without race adjustment factors at the recommendation of the [employer] and [employer] [employer]. This calculation has not been validated in women. For pediatric patients refer to https://www.kidney.org/professionals/KDOQI/gfr_calculatorPed 03/29/2023 9:07 AM EDT 03/29/2023 9:20 AM EDT Ebony Albrecht MD LAB BLOOD ORDERABLES Final Re sult [facility] [address] [place] [address], documented in this encounter Visit Diagnoses Not on filedocumented in this encounter Care Teams It Architecture Analyst Relationship Specialty Start Date End Date Nate Mills MD [address] [facility] [address] [id number] PCP - General 09/23/20 04/02/24 Efrain Angeles MD [address] [facility] [address] [place] [address] PCP - General 04/03/24 documented as of this encounter
--- OUTSIDE RECORDS SUMMARY | 2025-04-02 15:01 | XMS_ITS | Data Portability ---
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 [email or web address] Not available 03/20/2021 10:30:02 03/23/2022 03/23/2022 RTC in 1 year with CBC, CMP, CEA. Please schedule colonoscopy at [facility]. [email or web address] Not available 03/23/2022 10:55:22 03/29/2023 03/29/2023 RTC in 1 year with CBC, CMP, CEA. Please get results of colonoscopy at [facility]. Make sure CEA was done today. [email or web address] Not available 03/29/2023 10:03:04 Plan of Treatment [...] By Organization Details Last Modified Time 03/17/2019 [id number] high blood pressure: care instructions [email or web address] Not available 03/17/2019 10:48:24 learning about high blood pressure [email or web address] Not available 03/17/2019 10:48:24 03/15/2020 [id number] high blood pressure: care instructions [email or web address] Not available 03/15/2020 10:23:52 learning about high blood pressure [email or web address] Not available 03/15/2020 10:23:52 03/20/2021 [id number] high blood pressure: care instructions [email or web address] Not available 03/20/2021 10:32:34 learning about high blood pressure Not available 03/20/2021 10:32:34 03/23/2022 [id number] high blood pressure: care instructions [email or web address] Not available 03/23/2022 10:55:55 learning about high blood pressure Not available 03/23/2022 10:55:55 03/29/2023 [id number] high blood pressure: care instructions Not available 03/29/2023 10:03:17 learning about high blood pressure [email or web address] Not available 03/29/2023 10:03:17 Reason for Referral None Reported. Results Created Date Observation Date Name Description Value Unit Range Abnormal Flag Note LastModifiedBy Organization Detail LastModifiedTime 03/17/2003/17/2019 CBC w/ auto diff white blood cells 7.7 K/uL 3.8-10 .8 normal Not Available [facility] [address] [place] [address], [address], 03/17/2019 07:48:30 03/17/2003/17/2019 CBC w/ auto diff red blood cells 4.56 M/uL 3.80-5 .20 normal Not Available [facility] [address] [place] [address], [address], 03/17/2019 07:48:30 03/17/2003/17/2019 CBC w/ auto diff hemoglobin 14.2 g/dL 12.0-1 6.0 normal Not Available [facility] [address] [place] [address], [address], 03/17/2019 07:48:30 03/17/2003/17/2019 CBC w/ auto diff hematocrit 41.5 % 35.0-4 7.0 normal Not Available [facility] [address] [place] [address], [address], 03/17/2019 07:48:30 03/17/2003/17/2019 CBC w/ auto diff MCV 91 fL 80-100 normal Not Available [facility] [address] [place] [address], [address], 03/17/2019 07:48:30 03/17/2003/17/2019 CBC w/ auto diff MCH 31 pg 26-35 normal Not Available [facility] [address] [place] [address], [address], 03/17/2019 07:48:30 03/17/2003/17/2019 CBC w/ auto diff MCHC 34 g/dL 32-36 normal Not Available [facility] [address] [place] [address], [address], 03/17/2019 07:48:30 03/17/2003/17/2019 CBC w/ auto diff RDW 13.2 % 11.0-1 5.0 normal Not Available [facility] [address] [place] [address], [address], 03/17/2019 07:48:30 03/17/2003/17/2019 CBC w/ auto diff MPV 9.5 fL 6.2-10 .5 normal Not Available [facility] [address] [place] [address], [address], 03/17/2019 07:48:30 03/17/2003/17/2019 CBC w/ auto diff platelet count 243 K/uL 130-40 0 normal Not Available [facility] [address] [place] [address], [address], 03/17/2019 07:48:30 03/17/2003/17/2019 CBC w/ auto diff neutrophil,a bsolute 4.0 K/uL 1.6-8. 4 normal Not Available [facility] [address] [place] [address], [address], 03/17/2019 07:48:30 03/17/2003/17/2019 CBC w/ auto diff lymphocyte,a bsolute 2.7 K/uL 0.4-5. 1 normal Not Available [facility] [address] [place] [address], [address], 03/17/2019 07:48:30 03/17/2003/17/2019 CBC w/ auto diff monocyte,abs olute 0.5 K/uL 0.0-1. 2 normal Not Available [facility] [address] [place] [address], [address], 03/17/2019 07:48:30 03/17/2003/17/2019 CBC w/ auto diff eosinophil,a bsolute 0.5 K/uL 0.0-0. 8 normal Not Available [facility] [address] [place] [address], [address], 03/17/2019 07:48:30 03/17/2003/17/2019 CBC w/ auto diff basophil,abs olute 0.0 K/uL 0.0-0. 3 normal Not Available [facility] [address] [place] [address], [address], 03/17/2019 07:48:30 03/17/2003/17/2019 CBC w/ auto diff % neutrophils 51.2 % 42.0-7 8.0 normal Not Available [facility] [address] [place] [address], [address], 03/17/2019 07:48:30 03/17/2003/17/2019 CBC w/ auto diff % lymphocytes 34.6 % 11.0-4 7.0 normal Not Available [facility] [address] [place] [address], [address], 03/17/2019 07:48:30 03/17/2003/17/2019 CBC w/ auto diff % monocytes 6.9 % 0.0-11 .0 normal Not Available [facility] [address] [place] [address], [address], 03/17/2019 07:48:30 03/17/20 19 03/17/2019 CBC w/ auto diff % eosinophils 6.8 % 0.0-7. 0 normal Not Available [facility] [address] [place] [address], [address], 03/17/2019 07:48:30 03/17/20 19 03/17/2019 CBC w/ auto diff % basophils 0.5 % 0.0-3. 0 normal Not Available [facility] [address] [place] [address], [address], 03/17/2019 07:48:30 03/17/2003/17/2019 CBC w/ auto diff nucleated red cells 0.0 % 0.0-0. 9 normal Not Available [facility] [address] [place] [address], [address], 03/17/2019 07:48:30 03/17/2003/17/2019 CBC w/ auto diff nucleated RBCs, absolute 0.00 K/uL not estab. normal Not Available [facility] [address] [place] [address], [address], 03/17/2019 07:48:30 03/17/2003/17/2019 CMP, serum or plasm a glucose 96 mg/dL 74-100 normal Not Available [facility] [address] [place] [address], [address], 03/17/2019 08:18:43 03/17/2003/17/2019 CMP, serum or plasm a blood urea nitrogen 12 mg/dL 6-20 normal Not Available [facility] [address] [place] [address], [address], 03/17/2019 08:18:43 03/17/2003/17/2019 CMP, serum or plasm a creatinine 0.58 mg/dL 0.50-0 .95 normal Not Available [facility] [address] [place] [address], [address], 03/17/2019 08:18:43 03/17/20 19 03/17/2019 CMP, serum or plasm a BUN/creatini ne ratio 21 (calc ) 10-20 high Not Available [facility] [address] [place] [address], [address], 03/17/2019 08:18:43 03/17/20 19 03/17/2019 CMP, serum or plasm a sodium 139 mmol/ L 136-14 5 normal Not Available [facility] [address] [place] [address], [address], 03/17/2019 08:18:43 03/17/20 19 03/17/2019 CMP, serum or plasm a potassium 3.9 mmol/ L 3.4-5. 0 normal Not Available [facility] [address] [place] [address], [address], 03/17/2019 08:18:43 03/17/20 19 03/17/2019 CMP, serum or plasm a chloride 103 mmol/ L 98-107 normal Not Available [facility] [address] [place] [address], [address], 03/17/2019 08:18:43 03/17/20 19 03/17/2019 CMP, serum or plasm a carbon dioxide 26 mmol/ L 20-32 normal Not Available [facility] [address] [place] [address], [address], 03/17/2019 08:18:43 03/17/20 19 03/17/2019 CMP, serum or plasm a anion gap 10 (calc ) 7-25 normal Not Available [facility] [address] [place] [address], [address], 03/17/2019 08:18:43 03/17/20 19 03/17/2019 CMP, serum or plasm a calcium 9.8 mg/dL 8.6-10 .2 normal Not Available [facility] [address] [place] [address], [address], 03/17/2019 08:18:43 03/17/2003/17/2019 CMP, serum or plasm a total protein 7.1 g/dL 6.4-8. 3 normal Not Available [facility] [address] [place] [address], [address], 03/17/2019 08:18:43 03/17/2003/17/2019 CMP, serum or plasm a albumin 4.2 g/dL 3.5-5. 2 normal Not Available [facility] [address] [place] [address], [address], 03/17/2019 08:18:43 03/17/2003/17/2019 CMP, serum or plasm a globulin 2.9 g/dL_ (calc ) 1.5-4. 5 normal Not Available [facility] [address] [place] [address], [address], 03/17/2019 08:18:43 03/17/2003/17/2019 CMP, serum or plasm a albumin/glob ulin ratio 1.4 (calc ) 1.1-2. 5 normal Not Available [facility] [address] [place] [address], [address], 03/17/2019 08:18:43 03/17/20 19 03/17/2019 CMP, serum or plasm a bilirubin, total 0.5 mg/dL 0.1-1. 2 normal Not Available [facility] [address] [place] [address], [address], 03/17/2019 08:18:43 03/17/2003/17/2019 CMP, serum or plasm a alkaline phosphatase 105 U/L 35-105 normal Not Available [facility] [address] [place] [address], [address], 03/17/2019 08:18:43 03/17/2003/17/2019 CMP, serum or plasm a AST 17 U/L 0-32 normal Not Available [facility] [address] [place] [address], [address], 03/17/2019 08:18:43 03/17/2003/17/2019 CMP, serum or plasm a ALT 12 U/L 0-33 normal Not Available [facility] [address] [place] [address], [address], 03/17/2019 08:18:43 03/17/2003/17/2019 CMP, serum or plasm a GFR 109 >= 60 normal Not Available [facility] [address] [place] [address], [address], 03/17/2019 08:18:43 03/17/2003/17/2019 CMP, serum or plasm [...] month s or longe r. Not Available [facility] [address] [place] [address], [address], 03/17/2019 08:18:43 03/17/2003/17/2019 carci noemb ryoni c Ag, quant , serum or plasm a carcinoembry onic Ag 3.4 NG/mL 0.0-4. 6 normal This test was perfo rmed using the Anna Awilda E601 elect anna milum inesc ent metho d. Value s obtai glory from diffe rent assay metho ds canno t be used inter mora eably . Not Available [facility] [address] [place] [address], [address], 03/17/2019 08:51:43 03/15/20 20 03/15/2020 CBC w/ auto diff white blood cells 8.7 K/uL 3.8-10 .8 normal Not Available [facility] [address] [place] [address], [address], 03/15/2020 08:05:04 03/15/20 20 03/15/2020 CBC w/ auto diff red blood cells 4.26 M/uL 3.80-5 .20 normal Not Available [facility] [address] [place] [address], [address], 03/15/2020 08:05:04 03/15/20 20 03/15/2020 CBC w/ auto diff hemoglobin 13.5 g/dL 12.0-1 6.0 normal Not Available [facility] [address] [place] [address], [address], 03/15/2020 08:05:04 03/15/20 20 03/15/2020 CBC w/ auto diff hematocrit 38.7 % 35.0-4 7.0 normal Not Available [facility] [address] [place] [address], [address], 03/15/2020 08:05:04 03/15/20 20 03/15/2020 CBC w/ auto diff MCV 91 fL 80-100 normal Not Available [facility] [address] [place] [address], [address], 03/15/2020 08:05:04 03/15/20 20 03/15/2020 CBC w/ auto diff MCH 32 pg 26-35 normal Not Available [facility] [address] [place] [address], [address], 03/15/2020 08:05:04 03/15/20 20 03/15/2020 CBC w/ auto diff MCHC 35 g/dL 32-36 normal Not Available [facility] [address] [place] [address], [address], 03/15/2020 08:05:04 03/15/20 20 03/15/2020 CBC w/ auto diff RDW 12.7 % 11.0-1 5.0 normal Not Available [facility] [address] [place] [address], [address], 03/15/2020 08:05:04 03/15/20 20 03/15/2020 CBC w/ auto diff MPV 9.8 fL 6.2-10 .5 normal Not Available [facility] [address] [place] [address], [address], 03/15/2020 08:05:04 03/15/20 20 03/15/2020 CBC w/ auto diff platelet count 225 K/uL 130-40 0 normal Not Available [facility] [address] [place] [address], [address], 03/15/2020 08:05:04 03/15/20 20 03/15/2020 CBC w/ auto diff neutrophil,a bsolute 5.3 K/uL 1.6-8. 4 normal Not Available [facility] [address] [place] [address], [address], 03/15/2020 08:05:04 03/15/20 20 03/15/2020 CBC w/ auto diff lymphocyte,a bsolute 2.2 K/uL 0.4-5. 1 normal Not Available [facility] [address] [place] [address], [address], 03/15/2020 08:05:04 03/15/20 20 03/15/2020 CBC w/ auto diff monocyte,abs olute 0.5 K/uL 0.0-1. 2 normal Not Available [facility] [address] [place] [address], [address], 03/15/2020 08:05:04 03/15/20 20 03/15/2020 CBC w/ auto diff eosinophil,a bsolute 0.6 K/uL 0.0-0. 8 normal Not Available [facility] [address] [place] [address], [address], 03/15/2020 08:05:04 03/15/20 20 03/15/2020 CBC w/ auto diff basophil,abs olute 0.1 K/uL 0.0-0. 3 normal Not Available [facility] [address] [place] [address], [address], 03/15/2020 08:05:04 03/15/20 20 03/15/2020 CBC w/ auto diff % neutrophils 60.9 % 42.0-7 8.0 normal Not Available [facility] [address] [place] [address], [address], 03/15/2020 08:05:04 03/15/20 20 03/15/2020 CBC w/ auto diff % lymphocytes 25.5 % 11.0-4 7.0 normal Not Available [facility] [address] [place] [address], [address], 03/15/2020 08:05:04 03/15/20 20 03/15/2020 CBC w/ auto diff % monocytes 5.8 % 0.0-11 .0 normal Not Available [facility] [address] [place] [address], [address], 03/15/2020 08:05:04 03/15/20 20 03/15/2020 CBC w/ auto diff % eosinophils 7.1 % 0.0-7. 0 high Not Available [facility] [address] [place] [address], [address], 03/15/2020 08:05:04 03/15/20 20 03/15/2020 CBC w/ auto diff % basophils 0.7 % 0.0-3. 0 normal Not Available [facility] [address] [place] [address], [address], 03/15/2020 08:05:04 03/15/20 20 03/15/2020 CBC w/ auto diff nucleated red cells 0.1 % 0.0-0. 9 normal Not Available [facility] [address] [place] [address], [address], 03/15/2020 08:05:04 03/15/20 20 03/15/2020 CBC w/ auto diff nucleated RBCs, absolute 0.01 K/uL not estab. normal Not Available [facility] [address] [place] [address], [address], 03/15/2020 08:05:04 03/15/20 20 03/15/2020 CMP, serum or plasm a glucose 106 mg/dL 74-100 high Not Available [facility] [address] [place] [address], [address], 03/15/2020 08:30:34 03/15/20 20 03/15/2020 CMP, serum or plasm a blood urea nitrogen 12 mg/dL 6-20 normal Not Available [facility] [address] [place] [address], [address], 03/15/2020 08:30:34 03/15/20 20 03/15/2020 CMP, serum or plasm a creatinine 0.67 mg/dL 0.50-0 .95 normal Not Available [facility] [address] [place] [address], [address], 03/15/2020 08:30:34 03/15/20 20 03/15/2020 CMP, serum or plasm a BUN/creatini ne ratio 18 (calc ) 10-20 normal Not Available [facility] [address] [place] [address], [address], 03/15/2020 08:30:34 03/15/20 20 03/15/2020 CMP, serum or plasm a sodium 138 mmol/ L 136-14 5 normal Not Available [facility] [address] [place] [address], [address], 03/15/2020 08:30:34 03/15/20 20 03/15/2020 CMP, serum or plasm a potassium 3.4 mmol/ L 3.4-5. 0 normal Not Available [facility] [address] [place] [address], [address], 03/15/2020 08:30:34 03/15/20 20 03/15/2020 CMP, serum or plasm a chloride 102 mmol/ L 98-107 normal Not Available [facility] [address] [place] [address], [address], 03/15/2020 08:30:34 03/15/20 20 03/15/2020 CMP, serum or plasm a carbon dioxide 26 mmol/ L 20-32 normal Not Available [facility] [address] [place] [address], [address], 03/15/2020 08:30:34 03/15/20 20 03/15/2020 CMP, serum or plasm a anion gap 10 (calc ) 7-25 normal Not Available [facility] [address] [place] [address], [address], 03/15/2020 08:30:34 03/15/20 20 03/15/2020 CMP, serum or plasm a calcium 9.4 mg/dL 8.6-10 .2 normal Not Available [facility] [address] [place] [address], [address], 03/15/2020 08:30:34 03/15/20 20 03/15/2020 CMP, serum or plasm a total protein 6.7 g/dL 6.4-8. 3 normal Not Available [facility] [address] [place] [address], [address], 03/15/2020 08:30:34 03/15/20 20 03/15/2020 CMP, serum or plasm a albumin 3.9 g/dL 3.5-5. 2 normal Not Available [facility] [address] [place] [address], [address], 03/15/2020 08:30:34 03/15/20 20 03/15/2020 CMP, serum or plasm a globulin 2.8 g/dL_ (calc ) 1.5-4. 5 normal Not Available [facility] [address] [place] [address], [address], 03/15/2020 08:30:34 03/15/20 20 03/15/2020 CMP, serum or plasm a albumin/glob ulin ratio 1.4 (calc ) 1.1-2. 5 normal Not Available [facility] [address] [place] [address], [address], 03/15/2020 08:30:34 03/15/20 20 03/15/2020 CMP, serum or plasm a bilirubin, total 0.4 mg/dL 0.1-1. 2 normal Not Available [facility] [address] [place] [address], [address], 03/15/2020 08:30:34 03/15/20 20 03/15/2020 CMP, serum or plasm a alkaline phosphatase 91 U/L 35-105 normal Not Available [facility] [address] [place] [address], [address], 03/15/2020 08:30:34 03/15/20 20 03/15/2020 CMP, serum or plasm a AST 23 U/L 0-32 normal Not Available [facility] [address] [place] [address], [address], 03/15/2020 08:30:34 03/15/2003/15/2020 CMP, serum or plasm a ALT 21 U/L 0-33 normal Not Available [facility] [address] [place] [address], [address], 03/15/2020 08:30:34 03/15/20 20 03/15/2020 CMP, serum or plasm a GFR 103 >= 60 normal Not Available [facility] [address] [place] [address], [address], 03/15/2020 08:30:34 03/15/20 20 03/15/2020 CMP, serum [...] month s or longe r. Not Available [facility] [address] [place] [address], [address], 03/15/2020 08:30:34 03/15/2003/15/2020 carci noemb ryoni c Ag, quant , serum or plasm a carcinoembry onic Ag 3.3 NG/mL 0.0-4. 6 normal This test was perfo rmed using the Anna Awilda E601 [facility] d. Value s obtai glory from diffe rent assay metho ds canno t be used inter mora eably . Not Available [facility] [place], [address], 03/15/2020 08:47:54 03/20/20 21 03/20/2021 COMPL ETE BLOOD COUNT white blood cells 10.7 K/uL 3.8-10 .8 normal Not Available [facility] [place], [address], 03/20/2021 09:33:27 03/20/20 21 03/20/2021 COMPL ETE BLOOD COUNT red blood cells 4.31 M/uL 3.80-5 .20 normal Not Available [facility] [address] [place], [address], 03/20/2021 09:33:27 03/20/20 21 03/20/2021 COMPL ETE BLOOD COUNT hemoglobin 13.7 g/dL 12.0-1 6.0 normal Not Available [facility] [place], [address], 03/20/2021 09:33:27 03/20/20 21 03/20/2021 COMPL ETE BLOOD COUNT hematocrit 39.4 % 35.0-4 7.0 normal Not Available [facility] [address] [place] [address], [address], 03/20/2021 09:33:27 03/20/20 21 03/20/2021 COMPL ETE BLOOD COUNT MCV 91 fL 80-100 normal Not Available [facility] [address] [place] [address], [address], 03/20/2021 09:33:27 03/20/20 21 03/20/2021 COMPL ETE BLOOD COUNT MCH 32 pg 26-35 normal Not Available [facility] [address] [place] [address], [address], 03/20/2021 09:33:27 03/20/20 21 03/20/2021 COMPL ETE BLOOD COUNT MCHC 35 g/dL 32-36 normal Not Available [facility] [address] [place] [address], [address], 03/20/2021 09:33:27 03/20/20 21 03/20/2021 COMPL ETE BLOOD COUNT RDW 13.1 % 11.0-1 5.0 normal Not Available [facility] [address] [place] [address], [address], 03/20/2021 09:33:27 03/20/20 21 03/20/2021 COMPL ETE BLOOD COUNT MPV 9.4 fL 6.2-10 .5 normal Not Available [facility] [address] [place] [address], [address], 03/20/2021 09:33:27 03/20/20 21 03/20/2021 COMPL ETE BLOOD COUNT platelet count 264 K/uL 130-40 0 normal Not Available [facility] [address] [place] [address], [address], 03/20/2021 09:33:27 03/20/20 21 03/20/2021 COMPL ETE BLOOD COUNT neutrophil,a bsolute 6.0 K/uL 1.6-8. 4 normal Not Available [facility] [address] [place] [address], [address], 03/20/2021 09:33:27 03/20/20 21 03/20/2021 COMPL ETE BLOOD COUNT lymphocyte,a bsolute 2.8 K/uL 0.4-5. 1 normal Not Available [facility] [address] [place] [address], [address], 03/20/2021 09:33:27 03/20/20 21 03/20/2021 COMPL ETE BLOOD COUNT monocyte,abs olute 0.7 K/uL 0.0-1. 2 normal Not Available [facility] [address] [place] [address], [address], 03/20/2021 09:33:27 03/20/20 21 03/20/2021 COMPL ETE BLOOD COUNT eosinophil,a bsolute 1.1 K/uL 0.0-0. 8 high Not Available [facility] [address] [place] [address], [address], 03/20/2021 09:33:27 03/20/20 21 03/20/2021 COMPL ETE BLOOD COUNT basophil,abs olute 0.1 K/uL 0.0-0. 3 normal Not Available [facility] [address] [place] [address], [address], 03/20/2021 09:33:27 03/20/20 21 03/20/2021 COMPL ETE BLOOD COUNT % neutrophils 56.2 % 42.0-7 8.0 normal Not Available [facility] [address] [place] [address], [phone], 03/20/2021 09:33:27 03/20/20 21 03/20/2021 COMPL ETE BLOOD COUNT % lymphocytes 26.2 % 11.0-4 7.0 normal Not Available [facility] [address] [place] [address], [address], 03/20/2021 09:33:27 03/20/20 21 03/20/2021 COMPL ETE BLOOD COUNT % monocytes 6.2 % 0.0-11 .0 normal Not Available [facility] [address] [place] [address], [address], 03/20/2021 09:33:27 03/20/20 21 03/20/2021 COMPL ETE BLOOD COUNT % eosinophils 10.6 % 0.0-7. 0 high Not Available [facility] [address] [place] [address], [address], 03/20/2021 09:33:27 03/20/20 21 03/20/2021 COMPL ETE BLOOD COUNT % basophils 0.8 % 0.0-3. 0 normal Not Available [facility] [address] [place] [address], [address], 03/20/2021 09:33:27 03/20/20 21 03/20/2021 COMPL ETE BLOOD COUNT nucleated red cells 0.0 % 0.0-0. 9 normal Not Available [facility] [address] [place] [address], [address], 03/20/2021 09:33:27 03/20/20 21 03/20/2021 COMPL ETE BLOOD COUNT nucleated RBCs, absolute 0.00 K/uL not estab. normal Not Available [facility] [address] [place] [address], [address], 03/20/2021 09:33:27 03/20/2003/20/2021 COMP. METAB OLIC PANEL glucose 91 mg/dL 74-100 normal Not Available [facility] [address] [place] [address], [address], 03/20/2021 10:02:18 03/20/20 21 03/20/2021 COMP. METAB OLIC PANEL blood urea nitrogen 18 mg/dL 6-20 normal Not Available [facility] [address] [place] [address], [address], 03/20/2021 10:02:18 03/20/20 21 03/20/2021 COMP. METAB OLIC PANEL creatinine 0.69 mg/dL 0.50-0 .95 normal Not Available [facility] [address] [place] [address], [address], 03/20/2021 10:02:18 03/20/20 21 03/20/2021 COMP. METAB OLIC PANEL BUN/creatini ne ratio 26 (calc ) 10-20 high Not Available [facility] [address] [place] [address], [address], 03/20/2021 10:02:18 03/20/20 21 03/20/2021 COMP. METAB OLIC PANEL sodium 143 mmol/ L 136-14 5 normal Not Available [facility] [address] [place] [address], [address], 03/20/2021 10:02:18 03/20/20 21 03/20/2021 COMP. METAB OLIC PANEL potassium 3.8 mmol/ L 3.4-5. 0 normal Not Available [facility] [address] [place] [address], [address], 03/20/2021 10:02:18 03/20/20 21 03/20/2021 COMP. METAB OLIC PANEL chloride 104 mmol/ L 98-107 normal Not Available [facility] [address] [place] [address], [address], 03/20/2021 10:02:18 03/20/20 21 03/20/2021 COMP. METAB OLIC PANEL carbon dioxide 29 mmol/ L 22-31 normal Not Available [facility] [address] [place] [address], [address], 03/20/2021 10:02:18 03/20/20 21 03/20/2021 COMP. METAB OLIC PANEL anion gap 10 (calc ) 7-25 normal Not Available [facility] [address] [place] [address], [address], 03/20/2021 10:02:18 03/20/20 21 03/20/2021 COMP. METAB OLIC PANEL calcium 10.0 mg/dL 8.6-10 .2 normal Not Available [facility] [address] [place] [address], [address], 03/20/2021 10:02:18 03/20/20 21 03/20/2021 COMP. METAB OLIC PANEL total protein 6.8 g/dL 6.4-8. 3 normal Not Available [facility] [address] [place] [address], [address], 03/20/2021 10:02:18 03/20/20 21 03/20/2021 COMP. METAB OLIC PANEL albumin 4.2 g/dL 3.5-5. 2 normal Not Available [facility] [address] [place] [address], [address], 03/20/2021 10:02:18 03/20/20 21 03/20/2021 COMP. METAB OLIC PANEL globulin 2.6 g/dL_ (calc ) 1.5-4. 5 normal Not Available [facility] [address] [place] [address], [address], 03/20/2021 10:02:18 03/20/20 21 03/20/2021 COMP. METAB OLIC PANEL albumin/glob ulin ratio 1.6 (calc ) 1.1-2. 5 normal Not Available [facility] [address] [place] [address], [address], 03/20/2021 10:02:18 03/20/20 21 03/20/2021 COMP. METAB OLIC PANEL bilirubin, total 0.4 mg/dL 0.1-1. 2 normal Not Available [facility] [address] [place] [address], [address], 03/20/2021 10:02:18 03/20/20 21 03/20/2021 COMP. METAB OLIC PANEL alkaline phosphatase 98 U/L 35-106 normal Not Available [facility] [address] [place] [address], [address], 03/20/2021 10:02:18 03/20/20 21 03/20/2021 COMP. METAB OLIC PANEL AST 21 U/L 0-32 normal Not Available [facility] [address] [place] [address], [address], 03/20/2021 10:02:18 03/20/20 21 03/20/2021 COMP. METAB OLIC PANEL ALT 16 U/L 0-33 normal Not Available [facility] [address] [place] [address], [address], 03/20/2021 10:02:18 03/20/20 21 03/20/2021 COMP. METAB OLIC PANEL GFR 101 >= 60 normal Not Available [facility] [address] [place], [address], 03/20/2021 10:02:18 03/20/20 21 03/20/2021 COMP. METAB [...] s/KDO QI/gf r_cal culat orPed Not Available [facility] [address] [place] [address], [address], 03/20/2021 10:02:18 03/20/20 21 03/20/2021 CARCI NOEMB RYONI C AG carcinoembry onic Ag 5.0 NG/mL 0.0-4. 7 high This test was perfo rmed using the Anna Awilda E801 elect anna milum inesc ent metho d. Value s obtai glory from diffe rent assay metho ds canno t be used inter mora eaolafy . . Not Available [facility] [address] [place] [address], [address], 03/20/2021 10:32:07 03/23/20 22 03/23/2022 COMPL ETE BLOOD COUNT white blood cells 14.0 K/uL 3.8-10 .8 high Not Available [facility] [address] [place] [address], [address], 03/23/2022 09:31:42 03/23/20 22 03/23/2022 COMPL ETE BLOOD COUNT red blood cells 4.33 M/uL 3.80-5 .20 normal Not Available [facility] [address] [place] [address], [address], 03/23/2022 09:31:42 03/23/20 22 03/23/2022 COMPL ETE BLOOD COUNT hemoglobin 13.3 g/dL 12.0-1 6.0 normal Not Available [facility] [address] [place] [address], [address], 03/23/2022 09:31:42 03/23/20 22 03/23/2022 COMPL ETE BLOOD COUNT hematocrit 39.2 % 35.0-4 7.0 normal Not Available [facility] [address] [place] [address], [address], 03/23/2022 09:31:42 03/23/20 22 03/23/2022 COMPL ETE BLOOD COUNT MCV 91 fL 80-100 normal Not Available [facility] [address] [place] [address], [address], 03/23/2022 09:31:42 03/23/20 22 03/23/2022 COMPL ETE BLOOD COUNT MCH 31 pg 26-35 normal Not Available [facility] [address] [place] [address], [address], 03/23/2022 09:31:42 03/23/20 22 03/23/2022 COMPL ETE BLOOD COUNT MCHC 34 g/dL 32-36 normal Not Available [facility] [address] [place] [address], [address], 03/23/2022 09:31:42 03/23/20 22 03/23/2022 COMPL ETE BLOOD COUNT RDW 13.2 % 11.0-1 5.0 normal Not Available [facility] [address] [place] [address], [address], 03/23/2022 09:31:42 03/23/20 22 03/23/2022 COMPL ETE BLOOD COUNT MPV 9.6 fL 6.2-10 .5 normal Not Available [facility] [address] [place] [address], [address], 03/23/2022 09:31:42 03/23/20 22 03/23/2022 COMPL ETE BLOOD COUNT platelet count 248 K/uL 130-40 0 normal Not Available [facility] [address] [place] [address], [address], 03/23/2022 09:31:42 03/23/20 22 03/23/2022 COMPL ETE BLOOD COUNT neutrophil,a bsolute 9.3 K/uL 1.6-8. 4 high Not Available [facility] [address] [place] [address], [address], 03/23/2022 09:31:42 03/23/20 22 03/23/2022 COMPL ETE BLOOD COUNT lymphocyte,a bsolute 3.0 K/uL 0.4-5. 1 normal Not Available [facility] [address] [place] [address], [address], 03/23/2022 09:31:42 03/23/20 22 03/23/2022 COMPL ETE BLOOD COUNT monocyte,abs olute 0.7 K/uL 0.0-1. 2 normal Not Available [facility] [address] [place] [address], [address], 03/23/2022 09:31:42 03/23/20 22 03/23/2022 COMPL ETE BLOOD COUNT eosinophil,a bsolute 0.8 K/uL 0.0-0. 8 normal Not Available [facility] [address] [place] [address], [address], 03/23/2022 09:31:42 03/23/20 22 03/23/2022 COMPL ETE BLOOD COUNT basophil,abs olute 0.2 K/uL 0.0-0. 3 normal Not Available [facility] [address] [place] [address], [address], 03/23/2022 09:31:42 03/23/20 22 03/23/2022 COMPL ETE BLOOD COUNT % neutrophils 66.7 % 42.0-7 8.0 normal Not Available [facility] [address] [place] [address], [address], 03/23/2022 09:31:42 03/23/20 22 03/23/2022 COMPL ETE BLOOD COUNT % lymphocytes 21.2 % 11.0-4 7.0 normal Not Available [facility] [address] [place] [address], [address], 03/23/2022 09:31:42 03/23/20 22 03/23/2022 COMPL ETE BLOOD COUNT % monocytes 5.1 % 0.0-11 .0 normal Not Available [facility] [address] [place] [address], [address], 03/23/2022 09:31:42 03/23/20 22 03/23/2022 COMPL ETE BLOOD COUNT % eosinophils 5.8 % 0.0-7. 0 normal Not Available [facility] [address] [place] [address], [address], 03/23/2022 09:31:42 03/23/20 22 03/23/2022 COMPL ETE BLOOD COUNT % basophils 1.2 % 0.0-3. 0 normal Not Available [facility] [address] [place] [address], [address], 03/23/2022 09:31:42 03/23/20 22 03/23/2022 COMPL ETE BLOOD COUNT nucleated red cells 0.1 % 0.0-0. 9 normal Not Available [facility] [address] [place] [address], [address], 03/23/2022 09:31:42 03/23/20 22 03/23/2022 COMPL ETE BLOOD COUNT nucleated RBCs, absolute 0.01 K/uL not estab. normal Not Available [facility] [address] [place] [address], [address], 03/23/2022 09:31:42 03/23/20 22 03/23/2022 COMP. METAB OLIC PANEL glucose 116 mg/dL 74-100 high Not Available [facility] [address] [place] [address], [address], 03/23/2022 09:57:08 03/23/20 22 03/23/2022 COMP. METAB OLIC PANEL blood urea nitrogen 15 mg/dL 6-20 normal Not Available [facility] [address] [place] [address], [address], 03/23/2022 09:57:08 03/23/20 22 03/23/2022 COMP. METAB OLIC PANEL creatinine 0.67 mg/dL 0.50-0 .95 normal Not Available [facility] [address] [place] [address], [address], 03/23/2022 09:57:08 03/23/20 22 03/23/2022 COMP. METAB OLIC PANEL BUN/creatini ne ratio 22 (calc ) 10-20 high Not Available [facility] [address] [place] [address], [address], 03/23/2022 09:57:08 03/23/20 22 03/23/2022 COMP. METAB OLIC PANEL sodium 141 mmol/ L 136-14 5 normal Not Available [facility] [address] [place] [address], [address], 03/23/2022 09:57:08 03/23/20 22 03/23/2022 COMP. METAB OLIC PANEL potassium 3.3 mmol/ L 3.4-5. 0 low Not Available [facility] [address] [place] [address], [address], 03/23/2022 09:57:08 03/23/20 22 03/23/2022 COMP. METAB OLIC PANEL chloride 103 mmol/ L 98-107 normal Not Available [facility] [address] [place] [address], [address], 03/23/2022 09:57:08 03/23/20 22 03/23/2022 COMP. METAB OLIC PANEL carbon dioxide 27 mmol/ L 22-31 normal Not Available [facility] [address] [place] [address], [address], 03/23/2022 09:57:08 03/23/20 22 03/23/2022 COMP. METAB OLIC PANEL anion gap 11 (calc ) 7-25 normal Not Available [facility] [address] [place] [address], [address], 03/23/2022 09:57:08 03/23/20 22 03/23/2022 COMP. METAB OLIC PANEL calcium 9.5 mg/dL 8.6-10 .2 normal Not Available [facility] [address] [place] [address], [address], 03/23/2022 09:57:08 03/23/20 22 03/23/2022 COMP. METAB OLIC PANEL total protein 7.0 g/dL 6.4-8. 3 normal Not Available [facility] [address] [place] [address], [address], 03/23/2022 09:57:08 03/23/20 22 03/23/2022 COMP. METAB OLIC PANEL albumin 4.2 g/dL 3.5-5. 2 normal Not Available [facility] [address] [place] [address], [address], 03/23/2022 09:57:08 03/23/20 22 03/23/2022 COMP. METAB OLIC PANEL globulin 2.8 g/dL_ (calc ) 1.5-4. 5 normal Not Available [facility] [address] [place] [address], [address], 03/23/2022 09:57:08 03/23/20 22 03/23/2022 COMP. METAB OLIC PANEL albumin/glob ulin ratio 1.5 (calc ) 1.1-2. 5 normal Not Available [facility] [address] [place] [address], [address], 03/23/2022 09:57:08 03/23/20 22 03/23/2022 COMP. METAB OLIC PANEL bilirubin, total 0.4 mg/dL 0.1-1. 2 normal Not Available [facility] [address] [place] [address], [address], 03/23/2022 09:57:08 03/23/20 22 03/23/2022 COMP. METAB OLIC PANEL alkaline phosphatase 104 U/L 30-121 normal Not Available [facility] [address] [place] [address], [address], 03/23/2022 09:57:08 03/23/20 22 03/23/2022 COMP. METAB OLIC PANEL AST 19 U/L 0-32 normal Not Available [facility] [address] [place] [address], [address], 03/23/2022 09:57:08 03/23/20 22 03/23/2022 COMP. METAB OLIC PANEL ALT 17 U/L 0-33 normal Not Available [facility] [place], [address], 03/23/2022 09:57:08 03/23/20 22 03/23/2022 COMP. METAB [...] s/KDO QI/gf r_cal culat orPed Not Available [facility] [place], [address], 03/23/2022 09:57:08 03/23/20 22 03/23/2022 CARCI NOEMB RYONI C AG carcinoembry onic Ag 4.2 NG/mL 0.0-4. 7 normal This test was perfo rmed using the Anna Awilda E801 elect anna milum inesc ent metho d. Value s obtai glory from diffe rent assay metho ds canno t be used inter mora eably . . Not Available [facility] [address] [place], [address], 03/23/2022 10:04:18 03/29/20 23 03/29/2023 COMPL ETE BLOOD COUNT white blood cells 12.7 10*3/ uL 3.8-10 .8 high Not Available [facility] [address] [place], [address], 03/29/2023 09:26:57 03/29/20 23 03/29/2023 COMPL ETE BLOOD COUNT red blood cells 4.66 10*6/ uL 3.80-5 .20 normal Not Available [facility] [address] [place] [address], [address], 03/29/2023 09:26:57 03/29/2003/29/2023 COMPL ETE BLOOD COUNT hemoglobin 14.4 g/dL 12.0-1 6.0 normal Not Available [facility] [address] [place] [address], [address], 03/29/2023 09:26:57 03/29/20 23 03/29/2023 COMPL ETE BLOOD COUNT hematocrit 42.6 % 35.0-4 7.0 normal Not Available [facility] [address] [place] [address], [address], 03/29/2023 09:26:57 03/29/2003/29/2023 COMPL ETE BLOOD COUNT MCV 92 fL 80-100 normal Not Available [facility] [address] [place] [address], [address], 03/29/2023 09:26:57 03/29/2003/29/2023 COMPL ETE BLOOD COUNT MCH 31 pg 26-35 normal Not Available [facility] [address] [place] [address], [address], 03/29/2023 09:26:57 03/29/2003/29/2023 COMPL ETE BLOOD COUNT MCHC 34 g/dL 32-36 normal Not Available [facility] [address] [place] [address], [address], 03/29/2023 09:26:57 03/29/2003/29/2023 COMPL ETE BLOOD COUNT RDW 13.7 % 11.0-1 5.0 normal Not Available [facility] [address] [place] [address], [address], 03/29/2023 09:26:57 07/07/20 23 03/29/2023 COMPL ETE BLOOD COUNT MPV 9.7 fL 6.2-10 .5 normal Not Available [facility] [address] [place] [address], [address], 03/29/2023 09:26:57 03/29/20 23 03/29/2023 COMPL ETE BLOOD COUNT platelet count 254 10*3/ uL 130-40 0 normal Not Available [facility] [address] [place] [address], [address], 03/29/2023 09:26:57 03/29/20 23 03/29/2023 COMPL ETE BLOOD COUNT neutrophil,a bsolute 8.9 10*3/ uL 1.6-8. 4 high Not Available [facility] [address] [place] [address], [address], 03/29/2023 09:26:57 03/29/20 23 03/29/2023 COMPL ETE BLOOD COUNT lymphocyte,a bsolute 2.7 10*3/ uL 0.4-5. 1 normal Not Available [facility] [address] [place] [address], [address], 03/29/2023 09:26:57 03/29/2003/29/2023 COMPL ETE BLOOD COUNT monocyte,abs olute 0.7 10*3/ uL 0.0-1. 2 normal Not Available [facility] [address] [place] [address], [address], 03/29/2023 09:26:57 03/29/2003/29/2023 COMPL ETE BLOOD COUNT eosinophil,a bsolute 0.3 10*3/ uL 0.0-0. 8 normal Not Available [facility] [address] [place] [address], [address], 03/29/2023 09:26:57 03/29/20 23 03/29/2023 COMPL ETE BLOOD COUNT basophil,abs olute 0.1 10*3/ uL 0.0-0. 3 normal Not Available [facility] [address] [place] [address], [address], 03/29/2023 09:26:57 03/29/20 23 03/29/2023 COMPL ETE BLOOD COUNT % neutrophils 70.2 % 42.0-7 8.0 normal Not Available [facility] [address] [place] [address], [address], 03/29/2023 09:26:57 03/29/20 23 03/29/2023 COMPL ETE BLOOD COUNT % lymphocytes 20.9 % 11.0-4 7.0 normal Not Available [facility] [address] [place] [address], [address], 03/29/2023 09:26:57 03/29/20 23 03/29/2023 COMPL ETE BLOOD COUNT % monocytes 5.6 % 0.0-11 .0 normal Not Available [facility] [address] [place] [address], [address], 03/29/2023 09:26:57 03/29/20 23 03/29/2023 COMPL ETE BLOOD COUNT % eosinophils 2.7 % 0.0-7. 0 normal Not Available [facility] [address] [place] [address], [address], 03/29/2023 09:26:57 03/29/20 23 03/29/2023 COMPL ETE BLOOD COUNT % basophils 0.6 % 0.0-3. 0 normal Not Available [facility] [address] [place] [address], [address], 03/29/2023 09:26:57 03/29/20 23 03/29/2023 COMPL ETE BLOOD COUNT nucleated red cells 0.0 % 0.0-0. 9 normal Not Available [facility] [address] [place] [address], [address], 03/29/2023 09:26:57 03/29/20 23 03/29/2023 COMPL ETE BLOOD COUNT nucleated RBCs, absolute 0.00 10*3/ uL not estab. normal Not Available [facility] [address] [place] [address], [address], 03/29/2023 09:26:57 03/29/20 23 03/29/2023 COMP. METAB OLIC PANEL glucose 108 mg/dL 74-100 high Not Available [facility] [address] [place] [address], [address], 03/29/2023 09:52:28 03/29/20 23 03/29/2023 COMP. METAB OLIC PANEL blood urea nitrogen 16 mg/dL 6-20 normal Not Available [facility] [address] [place] [address], [address], 03/29/2023 09:52:28 03/29/20 23 03/29/2023 COMP. METAB OLIC PANEL creatinine 0.69 mg/dL 0.50-0 .95 normal Not Available [facility] [address] [place] [address], [address], 03/29/2023 09:52:28 03/29/20 23 03/29/2023 COMP. METAB OLIC PANEL BUN/creatini ne ratio 23 (calc ) 10-20 high Not Available [facility] [address] [place] [address], [address], 03/29/2023 09:52:28 03/29/20 23 03/29/2023 COMP. METAB OLIC PANEL sodium 140 mmol/ L 136-14 5 normal Not Available [facility] [address] [place] [address], [address], 03/29/2023 09:52:28 03/29/20 23 03/29/2023 COMP. METAB OLIC PANEL potassium 3.9 mmol/ L 3.4-5. 0 normal Not Available [facility] [address] [place] [address], [address], 03/29/2023 09:52:28 03/29/20 23 03/29/2023 COMP. METAB OLIC PANEL chloride 102 mmol/ L 98-107 normal Not Available [facility] [address] [place] [address], [address], 03/29/2023 09:52:28 03/29/20 23 03/29/2023 COMP. METAB OLIC PANEL carbon dioxide 28 mmol/ L 22-31 normal Not Available [facility] [address] [place] [address], [address], 03/29/2023 09:52:28 03/29/20 23 03/29/2023 COMP. METAB OLIC PANEL anion gap 10 (calc ) 7-25 normal Not Available [facility] [address] [place] [address], [address], 03/29/2023 09:52:28 03/29/20 23 03/29/2023 COMP. METAB OLIC PANEL calcium 9.7 mg/dL 8.6-10 .2 normal Not Available [facility] [address] [place] [address], [address], 03/29/2023 09:52:28 03/29/20 23 03/29/2023 COMP. METAB OLIC PANEL total protein 7.4 g/dL 6.4-8. 3 normal Not Available [facility] [address] [place] [address], [address], 03/29/2023 09:52:28 03/29/20 23 03/29/2023 COMP. METAB OLIC PANEL albumin 4.4 g/dL 3.5-5. 2 normal Not Available [facility] [address] [place] [address], [address], 03/29/2023 09:52:28 03/29/20 23 03/29/2023 COMP. METAB OLIC PANEL globulin 3.0 1.5-4. 5 normal Not Available [facility] [address] [place] [address], [address], 03/29/2023 09:52:28 03/29/20 23 03/29/2023 COMP. METAB OLIC PANEL albumin/glob ulin ratio 1.5 (calc ) 1.1-2. 5 normal Not Available [facility] [address] [place] [address], [address], 03/29/2023 09:52:28 03/29/20 23 03/29/2023 COMP. METAB OLIC PANEL bilirubin, total 0.6 mg/dL 0.1-1. 2 normal Not Available [facility] [address] [place] [address], [address], 03/29/2023 09:52:28 03/29/20 23 03/29/2023 COMP. METAB OLIC PANEL alkaline phosphatase 107 U/L 30-121 normal Not Available [facility] [address] [place] [address], [address], 03/29/2023 09:52:28 03/29/20 23 03/29/2023 COMP. METAB OLIC PANEL AST 29 U/L 0-32 normal Not Available [facility] [address] [place] [address], [address], 03/29/2023 09:52:28 03/29/20 23 03/29/2023 COMP. METAB OLIC PANEL ALT 36 U/L 0-33 high Not Available [facility] Laboratory [address] [place] [address], [phone], 03/29/2023 09:52:28 03/29/20 23 03/29/2023 COMP. METAB OLIC PANEL GFR 91 >= 60 normal NOT E New calcu latio n for GFR (CKD- EPI 2020) is formu lated witho ut race adjus tment facto rs at [facility] menda tion of the [facility] ty of Nephr ology . This calcu latio n has not been valid ated in pregn ant women . For pedia tric patie nts refer to https ://alberto arango.evie miranda/pr vinh solis s/KDO QI/gf r_cal culat orPed Not Available [facility] Laboratory [address] [place], [address], 03/29/2023 09:52:28 03/29/20 23 03/29/2023 CARCI NOEMB RYONI C AG carcinoembry onic Ag 4.6 NG/mL 0.0-4. 7 normal This test was perfo rmed using the Anna Awilda E801 elect anna milum inesc ent metho d. Value s obtai glory from diffe rent assay metho ds canno t be used inter mora eably . . Not Available [facility] [address] [place], [address], 03/29/2023 09:59:08 03/17/20 19 03/17/2019 CT, chest , w[facility] [address] [place] [address], [place] [address] Karly tay Name: ALYSSIA CAI SON Karly [...] (2x50 ml bottle s) of Isovue -370 ([facility] [id number] 316-30 ) IV. COMPAR KEANU: None [...] Garcia Tijerina MD on 019 11:48 AM [email or web address] [facility] Radiology [address], [address], 03/15/2020 10:19:01 Result Notes Documentation Provider Name and Address Organization Details Recorded Time Ct, Chest, W/ Contrast : [address] [address] Patient Name: ALYSSIA HOLLY Patient : 1950 Patient Ordering Provider: MARIAN HICKS EXAM DATE: 03/17/2019 EXAM: CT CHEST WITH CONTRAST CLINICAL INFORMATION: History of colon, skin and cervical cancer. Solitary lung nodule. Mediastinal and hilar lymph nodes. Follow-up. TECHNIQUE: Multiple axial CT images of the chest were obtained after injection of Isovue 370, 100 ml (2x50 ml bottles) of Isovue-370 ([facility] [id number]) IV. COMPARISON: None FINDINGS: AIRWAYS AND LUNGS: [...] By: Evan Tijerina MD AN HICKS MD [address] [place] [address], [phone] 03/15/2020 10:19:00 Problems Name Problem SNOMED Code Status Onset Date Resolution Date Notes Provider Name and Address Organization Details Recorded Time History of malignant neoplasm of colon [id number] Active 021 Ritu Aguilar [facility] 10:48:43 Problem Notes Documentation Provider Name and Address Organization Details Recorded Time Urologist Consult Note : [facility] [address] [facility] [address]SJSDHHEUO, ALYSSIA E (id #[id number], : 1950) [address] [place] [address] Encounter Summary - Progress Note Date Printed: [...] received this fax in error, please visit [email or web address] Fax to notify the sender and confirm that the information will be destroyed. If you do not have internet access, please call to notify the sender and confirm that the information will be destroyed. Thank you for your attention and cooperation. [ID:[id number]] Patient Alyssia Holly (71yo, F) #[id number] 1950 Patient Demographics: [place] [address] [place] [address] Encounter Notes: Encounter Reason/Date PTNM & FUP [...] itching, no hives, and no frequent sneezing. [email or web address]/31/2020 01:48 pm Ht: 5 ft 6 in [...] and see me one year earlier if iaoclhyqfX86.41: Urge incontinence Return to Office LOUISE DESHPANDE MD for RECHECK at [facility] on 09/27/2021 at 01:30 PM to see SAMIRA VELASQUEZ MD for RECHECK at [facility] on or around 04/06/2022 Patient Medical History: Allergies List Reviewed Allergies NKDA Medications Reviewed Medications NameDate Source aspirin 81 mg tabletDaily Internal Note:Duration: 30 days;Frequency: daily;Medication Description: aspirin; Dosage:1; Route:oral; refills:0; Quantity:30 fenmsh01/06/16 entered [facility].263 cefUROXime axetiL 500 mg tabletTake 1 tablet(s) [...] by oral route.12/16/18 prescribed MARIAN HICKS MD Tybwrrw40/30/18 entered Мария Soto Family HistoryReviewed Family History Father - Arthritis - Diabetes mellitus Sister - Arthritis - Diabetes mellitus - Myocardial infarction Brother - Arthritis - Myocardial infarction Past Medical HistoryReviewed Past Medical History Arthritis:Y Cancer:Y-Cervical & Colon Hypertension:Y Vaccine HistoryNone recorded Electronically Signed by: LOUISE DESHPANDE MD MARIAN HICKS MD [address] [place] [place], [address], [facility] 09/04/2021 09:49:48 Procedures Surgical History Date Name Laterality Status Provider Name and Address Organization Details Recorded Time 08/23/20 15 Total hip arthroplasty completed Nessa Delvalle [facility] 03/15/2020 08:31:56 Hip Replacement completed Nessa Delvalle [facility] 03/15/2020 08:31:32 Tonsillectomy completed Nessa [facility] 03/15/2020 08:31:38 Total Colectomy completed Nessa [facility] 03/15/2020 08:31:43 Imaging Results None recorded. Procedure Notes None recorded. Medical Equipment None Reported. Allergies Allergen ID Allergen Name Allergen Category Reaction Reaction Severity Criticality Documentation Date Start Date Code Code System Note Provider Name and Address Organization Details Recorded Time 761018 latex environme nt,medica tion Not available Not available Not available 03/17/2019 72674 91 RxNorm Eyad hu Adriana [facility] 9 09:32:55 276396 nickel environme nt Not available Not available Not available 03/17/2019 10585 29 RxNorm Lukasjazminestevan Wright [facility] 9 09:33:12 Medications Name Sig Start [...] in Arterial blood by Pulse oximetry Systolic And Diastolic Provider Name and Address Organization Details Last Updated DateTime 0 167.64 cm 28.1 kg/m2 48333.1 7 g 76 /min 96 % 96 % 111/70 mm[Hg] Nessa Delvalle [facility] 0 08:44:20 Date Recorded Body weight Body mass index (BMI) Body height Body temperature Oxygen saturation Oxygen saturation in Arterial blood by Pulse oximetry Heart rate Systolic And Diastolic Provider Name and Address Organization Details Last Updated DateTime 9 01373.1 5 g 26.5 kg/m2 167.64 cm 97.2 [degF] 98 % 98 % 62 /min 101/64 mm[Hg] Eyad Wright [facility] 9 09:43:05 Date Recorded Body height Body mass index (BMI) Body weight Body temperature Heart rate Oxygen saturation Oxygen saturation in Arterial blood by Pulse oximetry Systolic And Diastolic Provider Name and Address Organization Details Last Updated DateTime 1 167.64 cm 28.5 kg/m2 18401.0 6 g 98.3 [degF] 72 /min 97 % 97 % 95/64 mm[Hg] Merle Dasilva [facility] 1 09:47:56 Date Recorded Body height Body mass index (BMI) Body weight Body temperature Heart rate Oxygen saturation Oxygen saturation in Arterial blood by Pulse oximetry Systolic And Diastolic Provider Name and Address Organization Details Last Updated DateTime 2 167.64 cm 29.7 kg/m2 28636 g 97.3 [degF] 77 /min 97 % 97 % 123/76 mm[Hg] Genna Sparrow [facility] 2 10:45:06 Date Recorded Body weight Body mass index (BMI) Body height Body temperature Heart rate Oxygen saturation Oxygen saturation in Arterial blood by Pulse oximetry Systolic And Diastolic Provider Name and Address Organization Details Last Updated DateTime 3 53097.6 7 g 29.3 kg/m2 167.64 cm 97.7 [degF] 67 /min 97 % 97 % 114/73 mm[Hg] Amparo davis [facility] 3 09:48:48 Social History Question Answer Notes LastModified by Organizat ion Details LastModified Time Tobacco Smoking Status [facility] 09:36:34 How Much Tobacco Do You Chew? None Information not available 03/17/2019 If Patient Spent Time In [facility] - Does The Patient Live In [facility]? No [email or web address] Information not available 03/15/2020 In The 14 Days Before Symptom Onset, Did The Patient Spend Time In [facility]? No [email or web address] Information not available 03/15/2020 Have You Been To An Area Known To Be High Risk For COVID-19? No [email or web address] Information not available 03/15/2020 Live Alone Or With Others? Alone [email or web address] Information not available 03/15/2020 Education Level College [email or web address] Informati on not available 03/15/2020 Learning Preferences Audio/verbal . Information not available 03/29/2023 Exposure To Smoke No [email or web address] Information not available 03/15/2020 Marital Status Informatio n not available 03/15/2020 What Was The Date Of Your Most Recent Tobacco Screening? 03/29/2023 Information not available 03/29/2023 How Many Children Do You Have? 0 [email or web address] Information not available 03/15/2020 How Much Tobacco Do You Smoke? 1 PPD Information not available 03/17/2019 How Many Years Have You Smoked Tobacco? 20 Information not available 03/17/2019 Sex: Female Functional Status Question Answer Note LastModified by Organizat ion Details LastModified Time Do you or have you ever used smokeless tobacco? 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 Never used electronic cigarettes [email or web address] Information not available 03/20/2021 Mental Status None recorded. Family History Relationship Description Onset Age of this Age Resolved Age Notes LastModified by Organization Details LastModified Time Father Arthritis [email or web address] Not availab le 03/15/2020 08:30:55 Father Diabetes mellitus [email or web address] Not available 2019 08:31:04 Sister Arthritis [email or web address] Not availab le 03/15/2020 08:30:55 Sister Diabetes mellitus [email or web address] Not available 2019 08:31:04 Sister Myocardial infarction [email or web address] Not available 03/15 08:31:22 Brother Arthritis Not availa ble 03/15/2020 08:30:55 Brother Myocardial infarction Not available 03/15 08:31:22 Medical History Condition Response Cancer Y Arthritis Y Back Pain Y Hypertension Y Kidney Stones Y Gynecological HistoryNo gynecological history recorded. Obstetrics History GPAL:G 0 P 0 0 0 0 Immunizations Vaccine Type Date Status Note Provider Nam e and Address Organization Details Recorded Time Influenza, split virus, quadrivalent, preservative 8 completed Chip Wright [facility] 03/17/2019 09:38:07 zoster, unspecified formulation 0 completed Nessa Delvalle [facility] 03/15/2020 08:37:22 COVID-19, mRNA, LNP-S, PF, 100 mcg/0.5mL dose or 50 mcg/0.25mL dose 1 completed Merle Bacamelanie null, [facility] 03/20/2021 09:45:59 COVID-19, mRNA, LNP-S, PF, 100 mcg/0.5mL dose or 50 mcg/0.25mL dose 1 completed Merle Vidya [facility], [facility] 03/20/2021 09:46:07 influenza nasal, unspecified formulation 2 completed Amparo Ines [facility], [facility] 03/29/2023 09:46:01 Past Encounters Encounter ID Performer Location Encounter Start Date Encounter Closed Date Diagnosis/Indication Diagnosis SNOMED-CT Code Diagnosis ICD10 Code Diagnosis Note [id number] SAMIRA Bang MD [facility] [address] [address] 09/21/2016 10:24:20 09/21/2016 13:46:09 [id number] SAMIRA Bang MD [facility] [address] [address] 11/20/2016 15:26:22 11/20/2016 16:43:05 [id number] SAMIRA Bang MD [facility] [address] [address] 01/29/2017 09:32:51 01/29/2017 10:24:17 [id number] YOSELIN SCHMID ENT SB [address] [place], [place] [address] 02/26/2017 15:45:49 02/26/2017 17:11:34 [id number] BOB FERNANDEZ AUD ENT SB [address] [place], [place] [address] 03/27/2017 13:37:33 03/27/2017 15:28:05 [id number] YOSELIN SCHMID ENT SB [address] [place], [place] [address] 04/04/2017 16:10:59 04/04/2017 17:43:54 [id number] YOSELIN SCHMID ENT SB [address] [place], [place] [address] 04/10/2017 17:14:42 04/10/2017 17:16:49 [id number] BOB FERNANDEZ AUD ENT SB [address] [place] [address] 05/01/2017 15:30:34 05/01/2017 17:15:17 [id number] [place] [address] [place] [address] 05/15/2017 14:41:24 05/15/2017 16:31:32 [id number] SAMIRA Bang MD ORTHOPEDI [address] [address] 07/04/2017 15:10:26 07/05/2017 14:03:16 [id number] BOB FERNANDEZ AUD ENT SB [address] [place] [address] 07/30/2017 15:48:24 07/30/2017 17:37:36 [id number] BOB FERNANDEZ AUD ENT SB [address] [place] [address] 2017 15:07:58 2017 17:18:55 [id number] BOB FERNANDEZ AUD ENT SB [address] [place] [address] 08/21/2017 13:31:49 08/21/2017 15:40:27 [id number] BOB FERNANDEZ AUD ENT SB [address] [place] [address] 10/16/2017 14:30:17 10/16/2017 14:58:16 [id number] BOB FERNANDEZ AUD ENT SB [address] [place] [address] 10/30/2017 13:44:11 10/30/2017 15:22:52 [id number] BOB FERNANDEZ AUD ENT SB [address] [place] [address] 11/20/2017 16:03:40 11/20/2017 16:35:48 [id number] LOUISE DESHPANDE MD [facility] [address] [place] [address] 12/04/2017 13:22:50 12/04/2017 15:12:05 [id number] MD [facility] [address] 0 12/11/2017 13:51:44 12/13/2017 10:20:52 [id number] SAMIRA Bang MD [facility] [address] [place] [address] 12/13/2017 07:33:00 12/13/2017 08:26:57 [id number] MD [facility] [address] [place] [address] 0 12/18/2017 13:39:55 12/19/2017 09:21:37 [id number] LOUISE DESHPANDE MD CUA [facility] [address] [place] [address] 0 12/25/2017 13:26:52 12/25/2017 16:42:07 [id number] YOSELIN SCHMID ENT SB [address] [place] [address] 12/25/2017 14:43:13 12/25/2017 16:53:32 [id number] LOUISE DESHPANDE MD [facility] [address],[place] [address] 0 01/01/2018 13:34:24 01/01/2018 14:32:05 [id number] YOSELIN SCHMID ENT SB [address] [place] [address] 01/01/2018 14:46:50 01/01/2018 15:47:01 [id number] MD [facility] [address] [place] [address] 0 01/08/2018 13:37:51 01/08/2018 14:50:50 [id number] MD [facility] [address] [place] [address] 0 01/15/2018 13:24:09 01/15/2018 15:42:47 [id number] MARIAN HICKS MD HEM/[facility]C [facility] [address] [place] [address] 01/20/2018 13:51:51 01/20/2018 15:07:06 [id number] MD [facility] [address] [place] [address] 01/22/2018 12:52:01 01/22/2018 14:30:27 [id number] MD [facility] [address] [place] [address] 01/29/2018 13:28:34 01/29/2018 14:49:41 [id number] MD [facility] [address] [place] [id number] 02/05/2018 13:34:01 02/05/2018 15:24:33 [id number] MD [facility] [address] [place] [address] 02/12/2018 13:24:21 02/12/2018 17:00:16 [id number] MD [facility] [address] [place] [address] 02/19/2018 13:29:19 02/19/2018 15:16:09 [id number] BOB REBECCA, AUD ENT [address] [place] [address] 03/04/2018 14:34:09 03/04/2018 15:46:16 [id number] MD [facility] [address] [place] [address] 03/19/2018 14:38:02 03/19/2018 16:27:34 [id number] MD [facility] [address] [place] [id number] 04/16/2018 13:15:32 04/16/2018 14:06:56 [id number] SAMIRA Bang MD ORTHOPEDI [address] [address] 04/24/2018 15:19:29 04/24/2018 16:33:05 [id number] LOUISE DESHPANDE MD [facility] [address] [place] [address] 05/14/2018 13:20:11 05/14/2018 14:12:54 [id number] FANNIE HURD MD [facility] [address] [place] [address] 06/06/2018 13:08:11 06/06/2018 15:01:16 [id number] LOUISE DESHPANDE MD [facility] [address] [address] 06/11/2018 13:08:23 06/11/2018 14:07:03 [id number] MARIAN HICKS MD HEM[facility] [address] [place] [address] 06/19/2018 10:38:44 06/19/2018 12:41:35 [id number] BOB FERNANDEZ AUD ENT SB [address] [place] [address] 07/02/2018 13:31:54 07/02/2018 17:14:02 [id number] LOUISE DESHPANDE MD [facility] [address] [place] [address] 07/09/2018 13:27:42 07/09/2018 14:27:24 [id number] BOB FERNANDEZ AUD ENT SB [address] [place] [address] 1 07/23/2018 13:14:06 07/23/2018 16:48:49 [id number] LOUISE DESHPANDE MD CUA [facility] [address] [place] [address] 0 08/06/2018 13:08:12 08/06/2018 13:57:02 [id number] BOB FERNANDEZ AUD ENT SB [address] [place] [address] 1 08/06/2018 14:16:48 08/06/2018 17:13:32 [id number] BOB FERNANDEZ AUD ENT SB [address] [place] [address] 1 08/20/2018 12:58:34 08/20/2018 17:30:15 [id number] LOUISE DESHPANDE MD [facility]LLO [facility] [address] [place] [address] 0 09/03/2018 13:31:10 09/03/2018 14:28:40 [id number] LOUISE DESHPANDE MD [facility] [address] [place] [address] 0 10/01/2018 13:03:12 10/01/2018 14:30:37 [id number] BOB FERNANDEZ AUD ENT SB [address] [place] [address] 1 10/01/2018 14:31:18 05/27/2020 08:21:28 [id number] LOUISE DESHPANDE MD [facility] [address] [place] [address] 0 10/29/2018 13:11:06 10/29/2018 13:56:25 [id number] LOUISE DESHPANDE MD [facility] [address] [place] [address] 0 11/26/2018 13:05:08 11/26/2018 14:14:34 [id number] BOB FERNANDEZ, AUD ENT SB [address] [place] [address] 1 12/16/2018 07:24:50 12/16/2018 10:00:48 [id number] MARIAN HICKS MD HEM[facility] [address] [place] [address] 12/16/2018 10:01:42 12/16/2018 11:25:21 [id number] MD [facility] [address] [place] [address] 12/24/2018 13:05:37 12/24/2018 13:29:53 [id number] BOB FERNANDEZ, AUD ENT [address] [place] [address] 12/24/2018 14:31:50 12/24/2018 14:33:21 [id number] MD [facility] [address] [place] [address] 01/21/2019 13:00:55 01/21/2019 13:47:34 [id number] SAMIRA Bang MD [facility] [address] [place] [address] 02/13/2019 07:42:36 02/13/2019 08:31:41 [id number] MD [facility] [address] [place] [address] 02/18/2019 13:10:49 02/18/2019 14:14:10 [id number] MARIAN HICKS MD HEM/ONC SB CLOSED [address] [address] 03/17/2019 09:21:44 03/17/2019 10:53:58 History of malignant neoplasm of colon 868973632 Z85.038 GLORY x 8 years. She is due for colonoscop y in [facility] this fall. CEA is normal. Mediastina l lymphadenopathy 50263313 R59.[address] report. I will let her know. Essential hypertension 35758918 I10 Continue current medication . FU PCP. [id number] MD [facility] [address] [place] [address] 03/25/2019 13:07:51 03/25/2019 14:07:21 [id number] MD [facility] [address] [place] [id number] 04/22/2019 13:18:09 04/22/2019 13:59:16 [id number] BOB [place], [place] [address] [place] [id number] 1 04/29/2019 13:23:08 04/29/2019 17:15:43 [id number] [place] [address] [place] [address] 1 05/08/2019 14:47:25 05/08/2019 17:25:24 [id number] [place] [address] [place], [place] [id number] 1 05/12/2019 13:54:53 05/12/2019 17:11:04 [id number] BOB FERNANDEZ AUD ENT SB [address] [place] [address] 1 05/26/2019 14:26:58 05/26/2019 17:33:12 [id number] LOUISE DESHPANDE MD CUA [facility] [address],[place] [address] 0 05/27/2019 12:57:48 05/27/2019 13:24:14 [id number] BOB FERNANDEZ, AUD ENT SB [address] [place] [address] 1 06/17/2019 13:26:10 06/17/2019 16:57:31 [id number] MD [facility] [address],[place] [address] 0 06/24/2019 13:11:04 06/24/2019 13:58:27 [id number] BOB FERNANDEZ, AUD ENT SB [address] [place] [address] 07/08/2019 13:34:45 07/08/2019 17:17:15 [id number] LOUISE DESHPANDE MD CUA [facility]ANCY [facility] [address] [address] 07/29/2019 13:00:15 07/29/2019 13:58:53 [id number] BOB FERNANDEZ, AUD ENT SB [address] [place], [place] [id number] 1 07/29/2019 14:25:43 07/29/2019 17:05:46 [id number] LOUISE DESHPANDE MD CUA [facility] [address] [address] 0 08/26/2019 13:19:28 08/26/2019 13:46:40 [id number] BOB FERNANDEZ, AUD ENT SB [address] [place] [address] 1 08/26/2019 15:19:38 08/26/2019 15:52:22 [id number] BOB FERNANDEZ, AUD ENT SB [address] [place] [address] 1 09/02/2019 14:19:00 09/02/2019 16:02:40 [id number] LOUISE DESHPANDE MD APOLLO [facility] [address] [address] 0 09/30/2019 13:11:57 09/30/2019 14:04:35 [id number] BOB FERNANDEZ, AUD ENT SB [address] [place] [address] 1 09/30/2019 14:20:29 09/30/2019 15:34:34 [id number] LOUISE DESHPANDE MD [facility] [address] [address] 0 10/28/2019 13:13:53 10/28/2019 14:10:50 [id number] LOUISE DESHPANDE MD [facility] [address] [address] 0 12/02/2019 13:11:25 12/02/2019 14:12:07 [id number] FANNIE HURD MD CUA [facility] [address] [place] [address] 0 01/28/2020 13:45:36 01/28/2020 14:35:52 [id number] LOUISE DESHPANDE MD [facility] [address] [place] [address] 0 02/24/2020 11:34:11 02/24/2020 12:42:00 [id number] SAMIRA Bang MD [facility]TH[facility] CLOSED [address] [place] [address] 02/25/2020 13:27:22 02/25/2020 15:50:27 [id number] MARIAN HICKS MD HEM/ONC SB CLOSED [address] [place] [address] 03/15/2020 08:24:14 03/15/2020 10:26:34 History of malignant neoplasm of colon [id number] Z85.038 GLORY x 9 years. She is due for colonoscop y in [facility] in 2 years. CEA is normal. Essential hypertension [id number] I10 Continue current medication . FU PCP. [id number] MD APOLLO [facility] [address] [place] [address] 03/30/2020 13:12:02 03/30/2020 14:19:17 [id number] MD APOLLO [facility] [address] [place] [address] 04/27/2020 14:34:43 04/27/2020 15:22:28 [id number] MD APOLLO [facility] [address] [place] [address] 05/25/2020 14:28:01 05/25/2020 14:53:19 [id number] BOB REBECCA, AUD ENT [address] [place] [address] 06/01/2020 14:56:56 06/01/2020 17:06:01 [id number] MD APOLLO [facility] [address] [place] [address] 06/10/2020 13:08:29 06/10/2020 13:54:55 [id number] MD APOLLO [facility] [address] [address] 06/22/2020 14:23:07 06/22/2020 14:55:34 [id number] LOUISE DESHPANDE MD CUA [facility] [address] [place] [address] 0 07/20/2020 13:56:00 07/20/2020 14:57:47 [id number] LOUISE DESHPANDE MD CUA [facility] [address] [place] [address] 0 08/17/2020 11:46:44 08/17/2020 13:21:22 [id number] BOB FERNANDEZ, AUD ENT [address] [place] [address] 1 08/23/2020 15:12:17 08/23/2020 17:02:21 [id number] LOUISE DESHPANDE MD CUA [facility] [address] [place] [address] 0 09/21/2020 13:42:28 09/21/2020 14:47:33 [id number] MD APOLLO ESTEBAN [facility] [address] [place] [address] 0 10/19/2020 13:44:52 10/19/2020 14:49:53 [id number] BOB FERNANDEZ, AUD ENT [address] [place] [address] 1 11/16/2020 10:52:49 11/16/2020 11:59:49 [id number] MD APOLLO ESTEBAN [facility] [address] [place] [address] 0 11/16/2020 13:36:14 11/16/2020 14:25:33 [id number] MD APOLLO ESTEBAN [facility] [address] [place] [address] 0 12/14/2020 14:03:35 12/14/2020 14:58:30 [id number] MD APOLLO ESTEBAN [facility] [address] [place] [address] 01/18/2021 14:30:47 01/18/2021 15:34:52 [id number] MD APOLLO ESTEBAN [facility] [address] [place] [address] 02/15/2021 13:38:32 02/16/2021 09:13:19 [id number] ELLE LAZCANO PA-C [facility]THOPEDI [facility] CLOSED [address] [place] [address] 03/14/2021 12:09:11 03/14/2021 13:17:58 [id number] MD APOLLO ESTEBAN [facility] [address] [place] [address] 03/15/2021 13:44:24 03/15/2021 14:48:28 [id number] BOB REBECCA, AUD ENT [address] [place] [address] 03/15/2021 14:39:32 03/15/2021 14:40:48 [id number] MARIAN HICKS MD HEM/ONC SB CLOSED [address] [place] [address] 03/20/2021 09:38:03 03/20/2021 10:52:49 History of malignant neoplasm of colon 686760638 Z85.038 GLORY x 10 years. She is due for colonoscop y in [facility] in 1 year. CEA is normal. Essential hypertension 90464307 I10 Continue current medication . FU PCP. [id number] SAMIRA Bang MD ORTHOPEDI CS [facility] [address] [place] [address] [place] [address] 04/06/2021 08:16:01 04/06/2021 09:47:49 [id number] MD APOLLO ESTEBAN [facility] [address] [place] [address] 04/12/2021 13:43:54 04/12/2021 15:13:50 [id number] MD APOLLO ESTEBAN [facility] [address] 0 05/10/2021 13:34:40 05/10/2021 14:26:46 [id number] LOUISE DESHPANDE MD CUA [facility] S [address] [place] [address] 0 06/07/2021 13:32:44 06/07/2021 14:19:56 [id number] YOSELIN SCHMID ENT [address] [place] [address] 1 06/08/2021 13:49:54 06/08/2021 16:42:15 [id number] LOUISE DESHPANDE MD CUA [facility] S [address] [place] [address] 0 07/05/2021 13:23:36 07/05/2021 16:36:44 [id number] LOUISE DESHPANDE MD APOLLO [facility] NANCY UROLOGIC ASSOCIATE S [address] [place] [address] 0 08/02/2021 13:10:35 08/02/2021 16:34:23 [id number] LOUISE DESHPANDE MD CUA [facility] UROLOGIC ASSOCIATE S [address] [place] [address] 0 08/30/2021 13:47:39 08/30/2021 14:32:27 [id number] LOUISE DESHPANDE MD CUA [facility] S [address] [place] [address] 0 09/27/2021 13:15:34 09/27/2021 14:17:35 [id number] BOB FERNANDEZ AUD ENT [address] [place] [address] 1 10/18/2021 13:56:49 10/18/2021 15:20:56 [id number] MD APOLLO ESTEBAN [facility] [address] [place] [address] 0 11/01/2021 13:40:19 11/01/2021 14:42:41 [id number] PREETI GOULD PA-C ORTHOPEDI CS [facility] CLOSED [address] [address] 11/03/2021 08:57:04 11/03/2021 10:02:09 [id number] MARIANO LUCERO JR, OTR/L, CHT PHYSICAL THERAPY / HAND THERAPY [facility] CLOSED [address] [address] 11/03/2021 10:06:54 11/03/2021 13:43:45 [id number] PREETI GOULD PA-C ORTHOPEDI CS [address] [address] 11/17/2021 07:54:31 11/17/2021 08:32:03 [id number] BRENNA IVAN MD CUA [facility] UROLOGIC ASSOCIATE S [address] [address] 12/08/2021 09:08:20 12/08/2021 09:51:00 [id number] PREETI GOULD PA-C ORTHOPEDI CS [address] [address] 12/15/2021 08:11:38 12/15/2021 08:42:01 [id number] BRENNA IVAN MD CUA [facility] UROLOGIC ASSOCIATE S [address] [place] [address] 01/05/2022 09:22:24 01/05/2022 10:05:21 [id number] FANNIE HURD MD APOLLO [facility] UROLOGIC ASSOCIATE S [address] [place] [address] 02/02/2022 09:11:22 02/02/2022 10:33:50 [id number] MARIAN HICKS MD HEM/ONC SB CLOSED [address] [place] [address] 03/23/2022 09:16:07 03/23/2022 11:00:42 History of malignant neoplasm of colon [id number] Z85.038 GLORY x 10 years. She is due for colonoscop y. CEA is normal. Essential hypertension 86785596 I10 Continue current medication . FU PCP. Leukocytosis [id number] D 72.829 Pt with recent sinus infection. [id number] FANNIE HURD MD [facility] [address] [place] [address] 03/28/2022 11:59:11 03/28/2022 13:05:59 [id number] PA LASSITER JR, MD CUA [facility] UROLOGIC ASSOCIATE S [address] [place] [address] 04/30/2022 08:59:46 04/30/2022 09:43:22 [id number] BRENNA IVAN MD CUA [facility] UROLOGIC ASSOCIATE S [address] [place] [address] 06/12/2022 08:47:25 06/12/2022 12:05:24 [id number] LOUISE DESHPANDE MD CUA [facility] UROLOGIC ASSOCIATE S [address] [place] [address] 07/18/2022 13:13:56 07/23/2022 14:20:24 [id number] FANNIE HURD MD CUA [facility] UROLOGIC ASSOCIATE S [address] [place] [address] 08/28/2022 15:33:20 08/28/2022 20:56:38 [id number] BOB REBECCA, AUD ENT [address] [place] [address] 09/10/2022 08:50:21 09/10/2022 11:17:58 [id number] LOUISE DESHPANDE MD CUA [facility] UROLOGIC ASSOCIATE S [address] [place] [address] 10/10/2022 13:11:43 10/10/2022 14:42:26 [id number] FANNIE HURD MD CUA [facility] UROLOGIC ASSOCIATE S [address] [place] [address] 10/24/2022 13:08:36 10/24/2022 13:41:59 [id number] FANNIE HURD MD CUA [facility] UROLOGIC ASSOCIATE S [address] [place] [address] 11/07/2022 13:45:16 11/07/2022 15:55:21 [id number] FANNIE HURD MD APOLLO [facility] UROLOGIC ASSOCIATE S [address] [place] [address] 11/13/2022 10:00:32 11/13/2022 10:41:26 [id number] BRENNA IVAN MD CUA [facility] UROLOGIC ASSOCIATE S [address] [place] [address] 11/28/2022 10:43:39 11/28/2022 11:29:42 [id number] LOUISE DESHPANDE MD [facility] UROLOGIC ASSOCIATE S [address] [place] [address] 01/02/2023 13:50:01 01/02/2023 16:35:22 [id number] ELLE LAZCANO PA-C ORTHOPEDI CS [facility] CLOSED [address] [place] [address] 01/28/2023 14:09:24 01/28/2023 15:05:34 [id number] SAMIRA Bang MD ORTHOPEDI CS [facility] CLOSED [address] [place] [address] 03/19/2023 13:42:47 03/21/2023 12:14:15 [id number] MARIAN HICKS MD HEM/ONC SB CLOSED [address] [place] [address] 03/29/2023 09:13:58 03/29/2023 10:18:49 History of malignant neoplasm of colon [id number] Z85.038 GLORY x 11 years. CEA is pending. We will get results of colonoscop y. Essential hypertension 47877584 I10 Continue current medication . FU PCP. Leukocytosis 598691576 D 72.829 Pt with recent sinus infection and is on steroids. [id number] LOUISE DESHPANDE MD [facility] UROLOGIC ASSOCIATE S [address] 0 04/17/2023 13:04:51 04/17/2023 14:19:37 [id number] FANNIE HURD MD [facility] UROLOGIC ASSOCIATE S [address] [place] [address] 0 04/24/2023 09:18:31 04/24/2023 10:05:40 [id number] BRENNA IVAN MD APOLLO [facility] UROLOGIC ASSOCIATE S [address] [place] [address] 0 05/01/2023 09:00:49 05/01/2023 10:11:59 [id number] BOB FERNANDEZ, AUD ENT [address] [place] [address] 1 05/08/2023 10:34:38 05/08/2023 11:47:04 [id number] FANNIE HURD MD CUA [facility] UROLOGIC ASSOCIATE S [address] [place] [address] 0 05/08/2023 09:10:41 05/08/2023 10:06:58 [id number] BRENNA IVAN MD [facility] UROLOGIC ASSOCIATE S [address] [place] [address] 0 05/15/2023 09:20:19 05/15/2023 10:56:55 [id number] FANNIE HURD MD APOLLO [facility] UROLOGIC ASSOCIATE S [address] [place] [address] 0 05/22/2023 09:10:31 05/22/2023 10:01:51 [id number] SAMIRA Bang MD ORTHOPEDI CS [facility] CLOSED [address] [place] [address] 06/18/2023 08:31:43 06/18/2023 09:46:07 [id number] BRENNA IVAN MD CUA [facility] UROLOGIC ASSOCIATE S [address] [place] [address] 0 06/05/2023 09:26:25 06/05/2023 10:47:16 [id number] FANNIE HURD MD CUA [facility] UROLOGIC ASSOCIATE S [address] [place] [address] 0 06/12/2023 09:10:09 06/12/2023 10:17:05 [id number] BRENNA IVAN MD CUA [facility] UROLOGIC ASSOCIATE S [address] [place] [address] 0 06/19/2023 09:38:28 06/19/2023 10:31:51 [id number] FANNIE HURD MD CUA [facility] UROLOGIC ASSOCIATE S [address] [place] [address] 0 06/26/2023 09:31:44 06/26/2023 10:31:50 [id number] BOB REBECCA, AUD ENT [address] [place] [address] 1 06/26/2023 13:08:35 06/26/2023 15:38:41 [id number] BRENNA IVAN MD APOLLO [facility] UROLOGIC ASSOCIATE S [address] [place] [address] 0 07/03/2023 09:42:02 07/08/2023 07:19:00 [id number] FANNIE HURD MD APOLLO [facility] UROLOGIC ASSOCIATE S [address] [place] [address] 0 07/10/2023 10:27:04 07/10/2023 11:21:48 [id number] BRENNA IVAN MD CUA [facility] UROLOGIC ASSOCIATE S [address] [place] [address] 0 07/17/2023 09:43:32 07/19/2023 09:24:26 [id number] BRIAN MATOS CS [facility] CLOSED [address] [place] [address] 10/15/2023 09:31:26 10/15/2023 10:53:20 [id number] ARATI FARRAR PA-C [facility]OS[facility]G [facility] CLOSED [address] [place] [address] 0 11/19/2023 08:28:21 11/20/2023 05:31:38 [id number] BINTA VALLE MD PAIN MEDICINE CLOSED [address] [place] [address] 11/27/2023 09:19:42 11/27/2023 16:20:04 [id number] BINTA VALLE MD [facility] PROFESSIO NAL CHARGES [address] [place] [address] [address] [place] [address] 1 12/10/2023 12:28:19 12/10/2023 13:47:06 [id number] AARTI FARRAR PA-C [facility]OS[facility]G [facility] CLOSED [address] [facility] [address] [place] [address] 0 12/31/2023 09:45:27 01/01/2024 04:28:47 [id number] JIGAR WOODALL PA-C ORTHOPEDI CS [facility] CLOSED [address] [place] [address] 01/14/2024 09:27:17 01/14/2024 10:41:23 [id number] ALICIA COLORADO PA-C PAIN MEDICINE CLOSED [address] [place] [address] 01/14/2024 07:30:23 01/14/2024 16:02:52 [id number] BINTA VALLE MD ESC PL[facility] SERV[facility] PROFESSIO NAL CHARGES [address] [place] [address], [facility] [address] [place] [address] 1 02/04/2024 15:00:59 02/04/2024 15:53:12 [id number] ALICIA COLORADO PA-C PAIN MEDICINE CLOSED [address] [place] [address] 1 03/11/2024 08:39:36 03/11/2024 16:08:10 [id number] YOSHI ARCEO MD NEUROLOGY SB CLOSED [address] [place] [address] 03/18/2024 10:19:16 03/18/2024 13:24:21 [id number] DERRICK BEE APRN NEUROSURG [facility] CLOSED [address] [place] [address] 04/02/2024 09:38:16 04/03/2024 04:26:06 [id number] MD APOLLO ESTEBAN [facility] [address] [place] [address] 04/08/2024 12:50:15 04/08/2024 14:13:03 [id number] JIGAR WOODALL PA-C ORTHOPEDI CS [facility] CLOSED [address] [place] [address] 6 05/27/2024 11:07:28 05/27/2024 12:14:39 [id number] JIGAR WOODALL PA-C ORTHOPEDI CS [facility] CLOSED [address] [place] [address] 6 07/27/2024 09:11:33 07/27/2024 09:41:07 [id number] MD APOLLO ESTEBAN [facility] [address] [place] [address] 09/02/2024 12:05:26 09/04/2024 04:38:33 [id number] MD APOLLO ESTEBAN [facility] [address] 0 10/07/2024 12:42:33 10/07/2024 13:29:53 [id number] BOB FERNANDEZ AUD ENT SB [address] [place] [address] 12/02/2024 13:55:48 12/02/2024 15:43:15 [id number] BOB FERNANDEZ AUD ENT SB [address] [place] [address] 12/09/2024 14:09:27 12/09/2024 16:40:08 [id number] GILDA LAUBarbaraRAYMOND ALCALA, AUD ENT [address] [place] [address] 12/31/2024 08:22:27 12/31/2024 12:09:11 [id number] GILDA ALCALA, AUD [place] [address] [place] [address] 02/03/2025 10:41:42 02/04/2025 15:21:21 Health Concerns Section Related Observation LastModified by Organization Detai ls LastModified Time None Recorded Concern Status LastModified by Organization Details LastModified Time None Recorded Advance Directives Directive None Recorded Payers Insurance Date Sequence Insurance Name Policy Number Policy Lindsay Covered Member ID Lindsay Member ID Guarantor Name 12/02/2024 2 [employer] (MEDICARE SUPPLEMENT) Alyssia Holly [id number] Alyssia Holly 01/31/2025 1 [place] Alyssia Holly [id number] Alyssia Holly 12/10/2023 2 [employer] Alyssia Holly [id number] Alyssia Holly 08/19/2019 PAYMENT PLAN Alyssia Holly 12/10/2023 2 [employer] (MEDICARE SUPPLEMENT) Alyssia Holly [id number] Alyssia Holly 12/02/2024 2 [facility] (MEDICARE SUPPLEMENT) Alyssia Holly [id number] Alyssia Holly 01/31/2025 [employer] - DMEPOS ASSIGNED (MEDICARE [facility]) Alyssia Holly [id number] Alyssia Holly Notes Date Note Type Note Provider Name and Address Organization Details Recorded Time 9 text/html HPIReported bypatient.patient accompanied by:patient accompanied by ; pt came alone Dischargedischarge disposition stable Distress ScreeningDistress level 0 no stress Practical Problemsno practical problems Family Problemsno family problems Emotional Problemsno emotional problems Spiritual/Religiousspiritua l/yarsanism problems? NO Physical Problemsno physical problems Nutrition [...] she feels remarkably well. MARIAN HICKS MD [address] [place] [address], [phone], [facility] 03/17/2019 10:48:32 0 text/html HPIReported bypatient.patient accompanied by:patient accompanied by ; pt came alone Advanced Directives / Bio[employer] AuthorizationsAdvanced Directives? YES Dischargedischarge mode ambulatory; discharge disposition stable Distress ScreeningHas the distress screening been completed in the last 45 days? ; Distress level 0 no stress Practical Problemsno practical problems Family Problemsno family problems Emotional Problemsno emotional problems Spiritual/Religiousspiritua l/yarsanism problems? NO Physical Problemsno physical problems Nutrition [...] repeat in 3 years. MARIAN HICKS MD [address] [place] [address], [phone], [facility] 03/15/2020 10:23:57 1 text/html HPIReported bypatient.patient accompanied by:patient accompanied by ; pt came alone Advanced Directives / Bio[employer] AuthorizationsAdvanced Directives? YES Dischargedischarge mode ambulatory; discharge disposition stable Distress ScreeningHas the distress screening been completed in the last 45 days? ; Distress level 0 no stress Practical Problemsno practical problems Family Problemsno family problems Emotional Problemsno emotional problems Spiritual/Religiousspiritua l/yarsanism problems? NO Physical Problemsno physical problems Nutrition [...] has been COVID vaccinated. MARIAN HICKS MD [address] [place] [address], [phone], [facility] 03/20/2021 10:32:38 2 text/html HPIReported bypatient.patient accompanied by:patient accompanied by ; pt came alone Advanced Directives / [employer] AuthorizationsAdvanced Directives? YES Dischargedischarge mode ambulatory; discharge disposition stable Distress ScreeningHas the distress screening been completed in the last 45 days? ; Distress level 0 no stress Practical Problemsno practical problems Family Problemsno family problems Emotional Problemsno emotional problems Spiritual/Religiousspiritua l/yarsanism problems? NO Physical Problemsno physical problems Nutrition [...] WBC is 14. MARIAN HICKS MD [address] [place], [address], [facility] 03/23/2022 10:55:59 3 text/html [place] HPIReported bypatient.patient accompanied by:patient accompanied by ; pt came alone Advanced Directives / Bio[employer] AuthorizationsAdvanced Directives? YES Dischargedischarge mode ambulatory; discharge disposition stable Distress ScreeningHas the distress screening been completed in the last 45 days? YES; Distress level 4 Practical Problemsno practical problems Family Problemsno family problems Emotional Problemsno emotional problems Spiritual/Religiousspiritua l/yarsanism problems? NO Physical Problemsno physical problems; Hip [...] to read 2-3 books/week. MARIAN HICKS MD [address] [place] [address], [phone], [facility] 03/29/2023 10:03:20 OBGyn Episode No OBEpisode recorded.
--- OUTSIDE RECORDS SUMMARY | 2025-04-02 15:02 | XMS_ITS | Encounter Summary ---
Author Organization [facility] Address [address] [place] [address] Care Team Providers Care Med Spa Manager Name Role Phone Nate Mills MD Primary Care Provider [phone] Efrain Angeles MD Primary Care Provider [phone] Encounter Details Date Type Department Care Team (Late st Contact Info) Description 03/23/2022 Orders Only [facility] [address] [place] [phone] Ebony Albrecht MD [address] [address] Social History Tobacco Use Types [...] EDT Office Visit [facility] [address] [place] [phone] 04/26/2025 11:30 AM EDT Office Visit [facility] [address] [place] [address] Ebony Albrecht MD [address] [facility] [address] [place] [address] documented as of this encounter Procedures Procedure Name Priority Date/Time Associated Diagnosis Comments COMPREHENSIVE METABOLIC PANEL, PLASMA Routine 03/23/2022 9:07 AM EDT documented in this encounter Results * (ABNORMAL) Comprehensive Metabolic Panel, Plasma (03/23/2022 9:07 AM EDT) External Glucose 116(H) 74 - 100 mg/dL [facility] External BUN 15 6 - 20 mg/dL [facility] External Creatinine Blood 0.67 0.50 - 0.95 mg/dL [facility] External BUN/Creat Ratio 22(H) 10 - 20 (calc) [facility] External Sodium 141 136 - 145 mmol/L [facility] External Potassium 3.3(L) 3.4 - 5.0 mmol/L [facility] External Chloride 103 98 - 107 mmol/L [facility] External Carbon Dioxide 27 22 - 31 mmol/L [facility] External Anion Gap (AG) 11 7 - 25 (calc) [facility] External Calcium 9.5 8.6 - 10.2 mg/dL [facility] External Total Protein 7.0 6.4 - 8.3 g/dL [facility] External Albumin 4.2 3.5 - 5.2 g/dL [facility] External Globulin 2.8 1.5 - 4.5 g/dL (calc) [facility] External Albumin/Globulin Ratio 1.5 1.1 - 2.5 (calc) [facility] External Bilirubin Total 0.4 0.1 - 1.2 mg/dL [facility] External Alkaline Phosphatase 104 30 - 121 U/L [facility] External AST (SGOT) 19 0 - 32 U/L [facility] External ALT (SGPT) 17 0 - 33 U/L [facility] External Estimated GFR 92 >=60 [facility] Comment: NOTE New calculation for GFR (CKD-EPI 2020) is formulated without race adjustment factors at the recommendation of the National Kidney Foundation and [place] [employer]. This calculation has not been validated in women. For pediatric patients refer to https://www.kidney.org/professionals/KDOQI/gfr_calculatorPed 03/23/2022 9:07 AM EDT 03/23/2022 9:25 AM EDT us Ebony Albrecht MD LAB BLOOD ORDERABLES Final Re sult Performing Organization Address City/State/[facility] Co de Phone Number [facility] [address] [place] [address], documented in this encounter Visit Diagnoses Not on filedocumented in this encounter Care Teams Med Spa Manager Relationship Specialty Start Date End Date Nate Mills MD [address] [facility] [address] [place] [address] PCP - General 09/23/20 04/02/24 Efrain Angeles MD [address] [facility] [address] [place] [address] PCP - General 04/03/24 documented as of this encounter
--- OUTSIDE RECORDS SUMMARY | 2025-04-02 15:02 | XMS_ITS | Patient Health Record ---
Author Organization [facility] Address [address] HELADIO Carbone [id number] Care Team Providers Care Elder Assistant Name Role Phone Kathryn Angeles Primary Care [...] 203 Performing Lab: Notes/Report: Test performed by [facility] [address] [place] [address] , [address], [place] [address] Rafi Forbes MD, Felt Hat Mellowing Machine Operator CLIA: [id number] Sodium 139 135-145 mmol/L Potassium 5.3 3.5-5.3 [...] 100 - 400 P-Comprehensive Metabolic Pa macario ([facility]) Reviewed date:04/20/2024 10:01:19 AM Interpretation:gluc 110, alk phos 128 Performing Lab: Notes/Report: Test performed by [facility], [address] , [address], [place] [address] Rafi Forbes MD, Felt Hat Mellowing Machine Operator CLIA: [id number] Sodium 143 135-145 mmol/L Potassium 3.8 3.5-5.3 [...] <0.2-1.2 mg/dL A/G Ratio 1.5 1.1-2.5 mg/dL H-CMP Reviewed date:09/24/2024 09:21:35 AM Interpretation:bun 24 [...] 0.8 0.0-0.4 K/mm3 BA# 0.1 0-0.2 K/mm3 H-BUN/CREAT Reviewed date:08/24/2024 09:14:07 AM Interpretation:Normal Performing Lab: Notes/Report: BUN 13 7-17 mg/dl CREATT 0.70 0.52-1.04 mg/dl GFRAA 99 >60 ML/MIN EGFR 82 >60 ml/min H-BMP Reviewed date:09/24/2024 09:20:53 AM Interpretation: Performing Lab: Notes/Report: Ultrasound : Right [place] drvasyl Reviewed date:02/05/2025 01:15:25 PM Interpretation:fatty liver, sludge and stones Performing Lab: Notes/Report: fatty liver, sludge and stones P-Lipase Reviewed date:02/05/2025 01:15:25 PM Interpretation:Normal Performing Lab: Notes/Report: Test performed by [facility] [address] [place] [address] , [address], [place] [address] Rafi Forbes MD, Felt Hat Mellowing Machine Operator CLIA: [id number] Lipase 25.6 13.0-60.0 u/L P-Comprehensive Metabolic Pa macario (CMP) Reviewed date:02/05/2025 01:15:25 PM Interpretation:alk phos 124 Performing Lab: Notes/Report: Test performed by [facility] [address] [place] [address] , [address], [place] [address] Rafi Forbes MD, Felt Hat Mellowing Machine Operator CLIA: [id number] Sodium 140 135-145 mmol/L Potassium 4.2 3.5-5.3 [...] - 38 plat 309 100 - 400 CT Scan : Chest w/ & w/o con trast Reviewed date:08/25/2024 08:46:58 AM Interpretation:bronchitis, bilateral breast implant rupture Performing Lab: Notes/Report: bronchitis, bilateral breast implant rupture CBC Venipuncture (in house) Reviewed date:09/08/2024 10:11:08 [...] - 38 platlet 428 100 - 400 Medications Medication SIG (Take, Route, Frequency, Duration) [...] Losartan Potassium 50 MG Take 1/2 (one-h nursing home) tablet by mouth once daily; Duration: 90 [...] Status Risk Notes Problem Low back pain (483221834) Low back pain (M54.5) Active confirmed Problem Sciatica (06000750) Sciatica (M54.30) Active co nfirmed Problem Essential hypertension (05902795) Essential hypertension (I10) Active confirmed Problem Diverticulitis (86719688) Diverticulitis (K57.92) Active confirmed Problem Alopecia (69425876) Hair loss (L65.9) Active co nfirmed Problem Bandemia (250159383) Bandemia (D72.825) Active confirmed Problem Mixed hyperlipidemia (054293797) Mixed hyperlipidemia (E78.2) Active confirmed Problem Hyperlipidemia (80818721) Other hyperlipidemia (E78.4) Active confirmed Problem Chronic pain (74399786) Other chronic pain (G89.29) Active confirmed Problem Chronic maxillary sinusitis (33999310) Chronic maxillary sinusitis (J32.0) Active confirmed Problem Centrilobular emphysema (72574894) Centrilobular emphysema (J43.2) Active confirmed Problem Anosmia (77156272) Anosmia (R43.0) Active confi rmed Problem Prosthetic breast implant (physical object) (0258507) Breast implant status (Z98.82) Active confirmed Problem Constipation by delayed colonic transit (03382243) Constipation by delayed colonic transit (K59.01) Active confirmed Problem Myositis (50317117) Myofasciitis (M60.9) Active confirmed Problem Lipomatosis (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) 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) Active confirmed Problem History of cholecystectomy (596809424) Status post cholecystectomy (Z90.49) Active confirmed Problem History of repair of hip joint (364541774) Hip joint replacement status (Z96.649) Active confirmed Problem Spondylolisthesis (010036200) Spondylolisthesis (M43.10) Active confirmed Problem Aortic valve sclerosis (97144375) Aortic valve sclerosis (I35.8) Active confirmed Problem Postprocedural states (191252181) History of back surgery (Z98.890) Active confirmed Problem Mixed incontinence (398488084) 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.46) Active confirmed Problem Calcific coronary arteriosclerosis (63245086) Calcific coronary arteriosclerosis (I25.10) Active confirmed Problem Arthralgia of temporomandibular joint (27192013) 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) Active confirmed Problem Pedal edema (104085554) Pedal edema (R60.0) Active confirmed Problem Moderate persist ent asthmatic bronchitis with exacerbation (J45.41) Active confirmed Problem History of colorectal cancer (2169403048) History of colorectal cancer (Z85.038) Active confirmed Problem Cyanosis (5663113) Extremity cya nosis (R23.0) Active confirmed Problem Breast implant rupture, initial encounter (T85.43XA) Active confirmed Problem Breast implant rupture, subsequent encounter (T85.43XD) Active confirmed Vital Signs Heart Rate 80 /min 03/29/2025 Blood pressure diastolic 62 mm Hg 03/29/2025 Height 66 in 03/29/2025 Blood pressure systolic 102 mm Hg 03/29/2025 Weight 149.2 lbs 03/29/2025 BMI 24.08 kg/m2 03/29/2025 Encounters Encounter Location Date Provider Diagnosis [facility] [address] [facility] [address] [place], [place] [id number] 04/16/2024 J Gabriel Karthik Bronchitis J40 and COVID-19 U07.1 [facility] [address] [place], [place] [id number] 05/28/2024 J Gabriel Karthik Essential hypertensi on I10 ; Other chronic pain G89.29 ; Centrilobular emphysema J43.2 ; Persistent cough R05.3 and Actinic keratosis L57.0 [facility] [address] [facility] [address] [place], [place] [id number] 08/06/2024 J Gabriel Karthik Persistent cough R05 .3 [facility] [address] [place], [place] [id number] 08/27/2024 J Gabriel Karthik Bronchitis J40 [facility] [address] [place], [place] [id number] 09/07/2024 J Gabriel Karthik Essential hypertensi on I10 ; Bronchitis J40 ; Diverticulitis K57.92 and Bandemia D72.825 [facility] [address] [facility] [address] [place] [id number] 09/21/2024 J Gabriel Karthik Essential hypertensi on I10 ; Centrilobular emphysema J43.2 and Bandemia D72.825 [facility] [address] [place] [id number] 11/23/2024 J Gabriel Angeles Hair loss L65.9 and Essential hypertension I10 [facility] [address] [place] [id number] 02/01/2025 J Gabriel Angeles Symptomatic cholelithiasis K80.20 [facility] [address] [place] [id number] 03/29/2025 J Gabriel Angeles Essential hypertensi on I10 ; Status post cholecystectomy Z90.49 ; Other chronic pain G89.29 ; Centrilobular emphysema J43.2 and History of colorectal cancer Z85.038 [facility] [address] [facility] [address] [place] [id number] 01/14/2025 J Gabriel Angeles Dyspepsia R10.13 ; Centrilobular emphysema J43.2 and BMI 25.0-25.9,adult Z68.25 [facility] [address] [place] [id number] 04/20/2024 J Gabriel Angeles [facility] [address] [place] [id number] 2024 J Gabriel Angeles [facility] [address] [place] [id number] 2024 J Gabriel Angeles [facility] [address] [place] [id number] 2024 J Gabriel Angeles [facility] [address] [place] [id number] 08/11/2024 J Gabriel Angeles [facility] [address] [place] [id number] 08/19/2024 J Gabriel Angeles Essential hypertensi on I10 [facility] [address] [place] [id number] 08/25/2024 J Gabriel Angeles [facility] [address] [place] [id number] 08/28/2024 Kathryn Angeles [facility] [address] [place] [id number] 09/24/2024 Kathryn Angeles [facility] [address] [place] [id number] 01/22/2025 Kathryn Angeles [facility] [address] [place] [id number] 02/05/2025 Kathryn Angeles Assessments Encounter Date Diagnosis (ICD Code) Assessment Notes Treatment Notes Treatment Clinical Notes Section Notes 04/16/2024 Bronchitis (ICD-10 - J40) Trelegy inhaler sample given 04/16/2024 COVID-19 (ICD-10 - U07.1) 05/28/2024 Essential hypertension (ICD-10 - I10) I have no samples of Trelegy, but gave sample of Breztri with instruction on use. 08/06/2024 Persistent cough (ICD-10 - R05.3) 08/19/2024 Essential hypertension (ICD-10 - I10) 08/27/2024 Bronchitis (ICD-10 - J40) 09/07/2024 Essential hypertension (ICD-10 - I10) 05/28/2024 Other chronic pain (ICD-10 - G89.29) 09/07/2024 Bronchitis (ICD-10 - J40) continue current therapy 09/21/2024 Essential hypertension (ICD-10 - I10) 09/21/2024 Centrilobular emphysema (ICD-10 - J43.2) 11/23/2024 Essential hypertension (ICD-10 - I10) 11/23/2024 Hair loss (ICD-10 - L65.9) 01/14/2025 Dyspepsia (ICD-10 - R10.13) Recommend Align Probiotic daily 01/14/2025 Centrilobular emphysema (ICD-10 - J43.2) 02/01/2025 Symptomatic cholelithiasis (ICD-10 - K80.20) CONT RX. AWAIT CONSULTATION 03/29/2025 Essential hypertension (ICD-10 - I10) 03/29/2025 Status post cholecystectomy (ICD-10 - Z90.49) 03/29/2025 Other chronic pain (ICD-10 - G89.29) 01/14/2025 BMI 25.0-25.9,adult (ICD-10 - Z68.25) 09/21/2024 Bandemia (ICD-10 - D72.825) 05/28/2024 Centrilobular emphysema (ICD-10 - J43.2) 09/07/2024 Diverticulitis (ICD-10 - K57.92) 09/07/2024 Bandemia (ICD-10 - D72.825) 05/28/2024 Persistent cough (ICD-10 - R05.3) 03/29/2025 Centrilobular emphysema (ICD-10 - J43.2) 03/29/2025 History of colorectal cancer (ICD-10 - Z85.038) 05/28/2024 Actinic keratosis (ICD-10 - L57.0) Plan Of Treatment Pending Test Test Name Order Date LC-Carcinoembryonic Antigen 05/30/2021 P-Comprehensive Metabolic Panel (CMP) Next Appt Details Provider Name:Kathryn Rios Gorge er, 05/31/2025 04:00:00 PM, [address], [place], [place], [id number], Insurance Providers Payer Name Payer Address Payer Phone Subscriber Number Group Number Insured Name Patient Relationship to Insured Coverage Start Date Coverage End Date MEDICARE PART [place] [address] [address] [place] [address] [id number] BAMBI EAST Self - patient is the insured [employer] MED[employer]ARE SUPPLEMENT [address] [address] [place], [place] [id number] BAMBI EAST Self - patient is the [...] Dr. Frazier 09/10/2019 Hospitalization History Reason Date(Month/Year) [facility] ER-fall 06/06 kidney stone 02/2011
--- OUTSIDE RECORDS SUMMARY | 2025-04-02 15:02 | XMS_ITS | Encounter Summary ---
Author Organization Address [address] [place] [address] Care Team Providers Care Cloth Packer Name Role Phone Nate Mills MD Primary Care Provider [phone] Efrain Angeles MD Primary Care Provider [phone] Encounter Details Date Type Department Care Team (Late st Contact Info) Description 03/20/[address] [facility] @ [address] [phone] Ebony Albrecht MD [address] [address] Social History Tobacco Use Types [...] 04/26/2025 10:30 AM EDT Office Visit [facility] [address] [place] [phone] 04/26/2025 11:30 AM EDT Office Visit [facility] [address] [place] [phone] Ebony Albrecht MD [address] [phone] documented as of this encounter Procedures Procedure Name Priority Date/Time Associated Diagnosis Comments COMPREHENSIVE METABOLIC PANEL, PLASMA Routine 03/20/2021 9:07 AM EDT documented in this encounter Results * (ABNORMAL) Comprehensive Metabolic Panel, Plasma (03/20/2021 9:07 AM EDT) External Glucose 91 74 - 100 mg/dL [facility] External BUN 18 6 - 20 mg/dL [facility] External Creatinine Blood 0.69 0.50 - 0.95 mg/dL [facility] External BUN/Creat Ratio 26(H) 10 - 20 (calc) [facility] External Sodium 143 136 - 145 mmol/L [facility] External Potassium 3.8 3.4 - 5.0 mmol/L [facility] External Chloride 104 98 - 107 mmol/L [facility] External Carbon Dioxide 29 22 - 31 mmol/L [facility] External Anion Gap (AG) 10 7 - 25 (calc) [facility] External Calcium 10.0 8.6 - 10.2 mg/dL [facility] External Total Protein 6.8 6.4 - 8.3 g/dL [facility] External Albumin 4.2 3.5 - 5.2 g/dL [facility] External Globulin 2.6 1.5 - 4.5 g/dL (calc) [facility] External Albumin/Globulin Ratio 1.6 1.1 - 2.5 (calc) [facility] External Bilirubin Total 0.4 0.1 - 1.2 mg/dL [facility] External Alkaline Phosphatase 98 35 - 106 U/L [facility] External AST (SGOT) 21 0 - 32 U/L [facility] External ALT (SGPT) 16 0 - 33 U/L [facility] External EGFR (If AFR/AM) 101 >=60 [facility] External Estimated GFR 87 >=60 [facility] Comment: NOTE Chronic kidney disease is [...] Final Re sult [facility] [address] [place] [address], documented in this encounter Visit Diagnoses Not on filedocumented in this encounter Care Teams Cloth Packer Relationship Specialty Start Date End Date Nate Mills MD 1210 [facility] [address] [place] [address] PCP - General 09/23/20 04/02/24 Efrain [place] MD 1210 [facility] [address] [place] [address] PCP - General 04/03/24 documented as of this encounter
--- OUTSIDE RECORDS SUMMARY | 2025-04-02 15:02 | XMS_ITS | Encounter Summary ---
Author Organization [employer] ([place], [place], [place], [place]) Address [address] [place] [address] Care Team Providers Care Senior Credit Officer Name Role Phone Unavailable Primary Care Provider Unavailabl e Reason for Referral * Diagnostic X-Ray (Emergency) - New Request Specialty Diagnoses / Procedures Referred By Jose tay Referred To Contact Diagnoses Calculus of kidney Procedures X-ray abdomen KUB 1 view Jordin Isabel MD [address] [place] [address] [address] [place] [address] Phone: tel: fax: Referral ID Status Reason Start Date Expiration Date V isits Requested Visits Authorized [id number] New Request 09/02/2024 09/02/2025 1 1 Encounter Details Date Type Department Care Team (Late st Contact Info) Description 09/02/2024 Outside Orders [facility] - [address] [place] [phone] Jordin Isabel MD [address] [place] [address] [address] [place] [address] Calculus of kidney (Primary Dx) Social History [...]
--- OUTSIDE RECORDS SUMMARY | 2025-04-02 15:02 | XMS_ITS | Encounter Summary ---
Author Organization [facility] Address [address] [place] [address] Care Team Providers Care Bag Filler Name Role Phone Nate Mills MD Primary Care Provider [phone] Efrain Angeles MD Primary Care Provider [phone] Encounter Details Date Type Department Care Team (Late st Contact Info) Description 03/23/[address] [facility] [address] [place] [phone] Ebony Albrecht MD [address] [address] Social History Tobacco Use Types [...] [facility] [address] [place] [phone] 04/26/2025 11:30 AM EDT Office Visit [facility] [address] [place] [phone] Ebony Albrecht MD [address] [facility] [address] [place] [phone] documented as of this encounter Procedures Procedure Name Priority Date/Time Associated Diagnosis Comments CBC WITH AUTO DIFFERENTIAL Routine 03/23/2022 9:07 AM EDT documented in this encounter Results * (ABNORMAL) CBC and Differential (03/23/2022 9:07 AM EDT) External WBC 14.0(H) 3.8 - 10.8 K/uL [facility] External Red Blood Cell (RBC) 4.33 3.80 - 5.20 M/uL [facility] External Hemoglobin 13.3 12.0 - 16.0 G/DL [facility] External Hematocrit 39.2 35.0 - 47.0 % [facility] External MCV 91 80 - 100 fL [facility] External MCH 31 26 - 35 PG [facility] External MCHC 34 32 - 36 G/DL [facility] External RDW 13.2 11.0 - 15.0 % [facility] External Mean Platelet Volume 9.6 6.2 - 10.5 fL [facility] External Platelets 248 130 - 400 K/uL [facility] External Neutrophil# 9.3(H) 1.6 - 8.4 K/uL [facility] External Lymphocyte# 3.0 0.4 - 5.1 K/uL [facility] External Absolute Monocyte (Abs Falls) 0.7 0.0 - 1.2 K/uL [facility] External Eosinophils# 0.8 0.0 - 0.8 K/uL [facility] External Baso# 0.2 0.0 - 0.3 K/uL [facility] External Neutrophils % 66.7 42.0 - 78.0 % [facility] External Lymphocyte % 21.2 11.0 - 47.0 % [facility] External Monocyte % 5.1 0.0 - 11.0 % [facility] External Eosinophil% 5.8 0.0 - 7.0 % [facility] External Basophil % 1.2 0.0 - 3.0 % [facility] External Nucleated RBC%-Auto 0.1 0.0 - 0.9 % [facility] External Nucleated RBC Absolute 0.01 Not Estab. K/uL [facility] 03/23/2022 9:07 AM EDT 03/23/2022 9:25 AM EDT us Ebony Albrecht MD LAB BLOOD ORDERABLES Final Re sult [facility] [address] [place] [address], documented in this encounter Visit Diagnoses Not on filedocumented in this encounter Care Teams Bag Filler Relationship Specialty Start Date End Date Nate Mills MD 1210 [facility] [address] [place] [address] PCP - General 09/23/20 04/02/24 Efrain [place] MD 1210 [facility] [address] [place] [phone] PCP - General 04/03/24 documented as of this encounter
--- OUTSIDE RECORDS SUMMARY | 2025-04-02 15:02 | XMS_ITS | Encounter Summary ---
Author Organization [facility] Address [address] [place] [address] Care Team Providers Care Solvent Process Extractor Operator Name Role Phone Nate Mills MD Primary Care Provider [phone] Efrain [place] MD Primary Care Provider [phone] Encounter Details Date Type Department Care Team (Late st Contact Info) Description 03/20/2021 Orders Only [facility] @ [address] [phone] Ebony Albrecht MD [address] [phone] Social History Tobacco Use [...] Visit [facility] [address] [place] [phone] 04/26/2025 11:30 AM EDT Office Visit [facility] [address] [place] [phone] Ebony Albrecht MD [address] [facility] [address] [place] [phone] documented as of this encounter Procedures Procedure Name Priority Date/Time Associated Diagnosis Comments CBC WITH AUTO DIFFERENTIAL Routine 03/20/2021 9:07 AM EDT documented in this encounter Results * (ABNORMAL) CBC and Differential (03/20/2021 9:07 AM EDT) External WBC 10.7 3.8 - 10.8 K/uL [facility] External Red Blood Cell (RBC) 4.31 3.80 - 5.20 M/uL [facility] External Hemoglobin 13.7 12.0 - 16.0 G/DL [facility] External Hematocrit 39.4 35.0 - 47.0 % [facility] External MCV 91 80 - 100 fL [facility] External MCH 32 26 - 35 PG [facility] External MCHC 35 32 - 36 G/DL [facility] External RDW 13.1 11.0 - 15.0 % [facility] External Mean Platelet Volume 9.4 6.2 - 10.5 fL [facility] External Platelets 264 130 - 400 K/uL [facility] External Neutrophil# 6.0 1.6 - 8.4 K/uL [facility] External Lymphocyte# 2.8 0.4 - 5.1 K/uL [facility] External Absolute Monocyte (Abs [place]) 0.7 0.0 - 1.2 K/uL [facility] External Eosinophils# 1.1(H) 0.0 - 0.8 K/uL [facility] External Baso# 0.1 0.0 - 0.3 K/uL [facility] External Neutrophils % 56.2 42.0 - 78.0 % [facility] External Lymphocyte % 26.2 11.0 - 47.0 % [facility] External Monocyte % 6.2 0.0 - 11.0 % [facility] External Eosinophil% 10.6(H) 0.0 - 7.0 % [facility] External Basophil % 0.8 0.0 - 3.0 % [facility] External Nucleated RBC%-Auto 0.0 0.0 - 0.9 % [facility] External Nucleated RBC Absolute 0.00 Not Estab. K/uL [facility] 03/20/2021 9:07 AM EDT 03/20/2021 9:25 AM EDT us Ebony Albrecht MD LAB BLOOD ORDERABLES Final Re sult Performing Organization Address City/State/[facility] Co de Phone Number [facility] [address] [place] [address], documented in this encounter Visit Diagnoses Not on filedocumented in this encounter Care Teams Solvent Process Extractor Operator Relationship Specialty Start Date End Date Nate Mills MD 1210 [facility] [address] [place] [address] PCP - General 09/23/20 04/02/24 Efrain [place] MD 1210 [facility] [address] [place] [id number] PCP - General 04/03/24 documented as of this encounter
--- OUTSIDE RECORDS SUMMARY | 2025-04-02 15:02 | XMS_ITS | Encounter Summary ---
Author Organization [facility] Address [address] [place] [address] Care Team Providers Care Photographic Equipment Inspector Name Role Phone Nate Mills MD Primary Care Provider [phone] Efrain [place] MD Primary Care Provider [phone] Encounter Details Date Type Department Care Team (Late st Contact Info) Description 03/14/2021 Orders Only [facility] [address] [place] [phone] Efrain La PA [address] [place] [address] Social History Tobacco Use Types [...] Office Visit [facility] [address] [place] [phone] 04/26/2025 11:30 AM EDT Office Visit [facility] [address] [place] [phone] Ebony Albrecht MD 5 [facility] [address] [place] [address] documented as of this encounter Procedures Procedure Name Priority Date/Time Associated Diagnosis Comments SEDIMENTATION RATE, AUTOMATED Routine 03/14/2021 1:48 PM EDT documented in this encounter Results * Sedimentation Rate, Automated (03/14/2021 1:48 PM EDT) External Erythrocyte Sedimentation Rate 25 0 - 29 MM/HR [facility] 03/14/2021 1:48 PM EDT 03/14/2021 2:10 PM EDT Efrain KIRBY LAB BLOOD ORDERABLES Final R esult Performing Organization Address City/State/[facility] Co de Phone Number [facility] [address] [place] [address], documented in this encounter Visit Diagnoses Not on filedocumented in this encounter Care Teams Photographic Equipment Inspector Relationship Specialty Start Date End Date Nate Mills MD 1210 [facility] [address] [place] [id number] PCP - General 09/23/20 04/02/24 Efrain [place] MD 1210 [facility] [place] [facility] [address] [place] [id number] PCP - General 04/03/24 documented as of this encounter
--- OUTSIDE RECORDS SUMMARY | 2025-04-02 15:02 | XMS_ITS | Referral Summary ---
Author Organization [employer] ([place], [place], [place], [place]) Address [address] [place] [address] Care Team Providers Care Creative Coordinator Name Role Phone Unavailable Primary Care Provider [...] family history of breast cancer COMPARISON STUDIES: [facility] [phone]; no significant change. FINDINGS: Craniocaudal and mediolateral [...] annual screening mammography. At our facility, a [place] marker is positioned over a visible skin [...] family history of breast cancer COMPARISON STUDIES: [facility] [phone]; no significant change. FINDINGS: Craniocaudal and mediolateral [...] annual screening mammography. At our facility, a [place] marker is positioned over a visible skin [...] for the next mammogram. Sandrine Mckeon MD [facility] ORDERABLES F inal Result from Last 3 Months or Most Recently Relevant to Health Maintenance Insurance MEDICARE PART A B
--- OUTSIDE RECORDS SUMMARY | 2025-04-02 15:02 | XMS_ITS | Encounter Summary ---
Author Organization [facility] Address [address] [place] [address] Care Team Providers Care Emu Farm Worker Name Role Phone Nate Mills MD Primary Care Provider [phone] Efrain Angeles MD Primary Care Provider [phone] Encounter Details Date Type Department Care Team (Late st Contact Info) Description 03/23/2022 Orders Only [facility] [address] [place] [phone] Ebony Albrecht MD [address] [address] Social History Tobacco Use Types [...] Description 04/26/2025 10:30 AM EDT Office Visit [facility] [address] [place] [phone] 04/26/2025 11:30 AM EDT Office Visit [facility] [address] [place] [phone] Ebony Albrecht MD [address] [facility] [address] [place] [address] documented as of this encounter Procedures Procedure Name Priority Date/Time Associated Diagnosis Comments CEA, SERUM Routine 03/23/2022 9:07 AM EDT documented in this encounter Results * CEA, Serum (03/23/2022 9:07 AM EDT) External Carcinoembryonic Antigen 4.2 0.0 - 4.7 ng/mL [facility] Comment: This test was performed using the Abdelrahman Awilda E801 electrochemiluminescent method. Values obtained from different assay methods cannot be used interchangeably. . 03/23/2022 9:07 AM EDT 03/23/2022 9:25 AM EDT us Ebony Albrecht MD LAB BLOOD ORDERABLES Final Re sult [facility] [address] [place] [address], documented in this encounter Visit Diagnoses Not on filedocumented in this encounter Care Teams Emu Farm Worker Relationship Specialty Start Date End Date Nate Mills MD [address] [facility] [address] [place] [address] PCP - General 09/23/20 04/02/24 Efrain Angeles MD 1210 [facility] [address] [place] [address] PCP - General 04/03/24 documented as of this encounter
--- OUTSIDE RECORDS SUMMARY | 2025-04-02 15:02 | XMS_ITS | Encounter Summary ---
Author Organization [facility] Address [address] [place] [address] Care Team Providers Care Nuclear Powerplant Supervisor Name Role Phone Nate Mills MD Primary Care Provider [phone] Efrain Angeles MD Primary Care Provider [phone] Encounter Details Date Type Department Care Team (Late st Contact Info) Description 03/14/2021 [facility] [address] [place] [phone] Efrain La PA [address] [place] [address] Social History Tobacco Use Types [...] Description 04/26/2025 10:30 AM EDT Office Visit [facility] [address] [place] [phone] 04/26/2025 11:30 AM EDT Office Visit [facility] [address] [place] [phone] Ebony Albrecht MD 5 [facility] [address] [place] [address] documented as of this encounter Procedures Procedure Name Priority Date/Time Associated Diagnosis Comments D DIMER, QUANTITATIVE Routine 03/14/2021 1:48 PM EDT documented in this encounter Results * (ABNORMAL) D DIMER, QUANTITATIVE (03/14/2021 1:48 PM EDT) External D-Dimer 1.12(H) <0.50 mcg/mL [facility] Comment: The D-Dimer test is [...] 11:295(2):199-207] For additional information, please refer to: http://education.CareCloud/faq/XHD213 (This link is being provided for informational/ educational purposes only) TEST PERFORMED AT: [facility] [address] [id number] HARVINDER CULVER M.D. 03/14/2021 1:48 PM EDT 03/14/2021 2:38 PM EDT us Efrain KIRBY LAB BLOOD ORDERABLES Final R esult [facility] [address] [place] [address], documented in this encounter Visit Diagnoses Not on filedocumented in this encounter Care Teams Nuclear Powerplant Supervisor Relationship Specialty Start Date End Date Nate Mills MD [address] [facility] [address] [place] [address] PCP - General 09/23/20 04/02/24 Efrain Angeles MD [address] [place] [facility] [address] [place] [address] PCP - General 04/03/24 documented as of this encounter
--- OUTSIDE RECORDS SUMMARY | 2025-04-02 15:02 | XMS_ITS | Encounter Summary ---
Author Organization [facility] Address [address] [place] [address] Care Team Providers Care Button Puncher Name Role Phone Nate Mills MD Primary Care Provider [phone] Erfain Angeles MD Primary Care Provider [phone] Encounter Details Date Type Department Care Team (Late st Contact Info) Description 03/14/2021 [facility] [address] [place] [phone] Efrain La PA [address] [place] [address] Social History Tobacco Use Types [...] EDT Office Visit [facility] [address] [place] [phone] 04/26/2025 11:30 AM EDT Office Visit [facility] [address] [place] [phone] Ebony Albrecht MD [address] [facility] [address] [place] [address] documented as of this encounter Procedures Procedure Name Priority Date/Time Associated Diagnosis Comments C-REACTIVE PROTEIN, PLASMA Routine 03/14/2021 1:48 PM EDT documented in this encounter Results * C-Reactive Protein, Plasma (03/14/2021 1:48 PM EDT) External C-Reactive Protein 0.15 0.00 - 0.49 mg/dL [facility] 03/14/2021 1:48 PM EDT 03/14/2021 2:09 PM EDT us Efrain KIRBY LAB BLOOD ORDERABLES Final R esult [facility] [address] [place] [address], documented in this encounter Visit Diagnoses Not on filedocumented in this encounter Care Teams Button Puncher Relationship Specialty Start Date End Date Nate Mills MD 1210 [facility] [address] [place] [address] PCP - General 09/23/20 04/02/24 Efrain Angeles MD 1210 [facility] [address] [place] [address] PCP - General 04/03/24 documented as of this encounter
--- OUTSIDE RECORDS SUMMARY | 2025-04-02 15:02 | XMS_ITS | Encounter Summary ---
Author Organization [facility] Address [address] [place] [address] Care Team Providers Care Inclusion Specialist Name Role Phone Nate Mills MD Primary Care Provider [phone] Efrain Angeles MD Primary Care Provider [phone] Encounter Details Date Type Department Care Team (Late st Contact Info) Description 03/20/2021 Orders Only [facility] @ [address] [phone] Ebony Albrecht MD [address] [address] Social History Tobacco Use Types [...] Description 04/26/2025 10:30 AM EDT Office Visit [facility] [address] [place] [phone] 04/26/2025 11:30 AM EDT Office Visit [facility] [address] [place] [phone] Ebony Albrecht MD 2[address] [facility] [address] [place] [address] documented as of this encounter Procedures Procedure Name Priority Date/Time Associated Diagnosis Comments CEA, SERUM Routine 03/20/2021 9:07 AM EDT documented in this encounter Results * (ABNORMAL) CEA, Serum (03/20/2021 9:07 AM EDT) External Carcinoembryonic Antigen 5.0(H) 0.0 - 4.7 ng/mL [facility] Comment: This test was performed using the Abdelrahman Awilda E801 electrochemiluminescent method. Values obtained from different assay methods cannot be used interchangeably. . 03/20/2021 9:07 AM EDT 03/20/2021 9:50 AM EDT us Ebony Albrecht MD LAB BLOOD ORDERABLES Final Re sult [facility] [address] [place] [address], documented in this encounter Visit Diagnoses Not on filedocumented in this encounter Care Teams Inclusion Specialist Relationship Specialty Start Date End Date Nate Mills MD 1210 [facility] [address] [place] [address] PCP - General 09/23/20 04/02/24 Efrain Angeles MD [address] [place] [facility] [address] [place] [address] PCP - General 04/03/24 documented as of this encounter
--- OUTSIDE RECORDS SUMMARY | 2025-04-02 15:02 | XMS_ITS | Clinical Summary ---
Author Organization [facility] ([place], [place], [place], [place]) Address [address] [place] [address] Care Team Providers Care Supervisor Advice Name Role Phone Unavailable Primary Care Provider [...] family history of breast cancer COMPARISON STUDIES: [facility] [phone]; no significant change. FINDINGS: Craniocaudal and mediolateral [...] annual screening mammography. At our facility, a [place] marker is positioned over a visible skin [...] family history of breast cancer COMPARISON STUDIES: [facility] [phone]; no significant change. FINDINGS: Craniocaudal and mediolateral [...] annual screening mammography. At our facility, a [place] marker is positioned over a visible skin [...]
--- OUTSIDE RECORDS SUMMARY | 2025-04-02 15:03 | XMS_ITS | Data Portability ---
Author Organization [facility] JM LandinS CAMP CROOK CLOSED Address [address] [place] [address] Care Team Providers Care Human Services Instructor Name Role Phone MARIAN HICKS Hematology/Oncology ELLE BOWSER Primary Care Provider Assessment No assessment recorded. Plan of Treatment Reminders Order Date Submit Date Provider Last Modified By Organization Details Last Modified Time Details Appointments RECHECK 2024 02:00P M LOUISE DESHPANDE MD Not available Not available Not available Lab urinalysi s panel, auto 2024 025 [email or web address] [facility], [address], [place], [address], 10/07/2024 13:28:40 Referral None recorded. Procedures None recorded. Surgeries None recorded. Imaging None recorded. Medication Orders Myrbetriq 50 mg tablet,ex tended release 2024 025 [facility], [address], [address], 10/07/2024 13:28:45 Patient TargetsNo targets recorded. Patient Instructions Encounter Date Encounter Id Patient Instructions Last Modified By Organization Details Last Modified Time 12/02/2024 [id number] Audiological evaluation today revealed a moderate sensorineural [...] denied. [email or web address] Not available 12/02/2024 15:42:47 12/09/2024 [id number] Connectivity/fli gh t mode problem continues. She has been in contact with [employer] but doesn't expect to be approved until February. She would like to send the HAs in for OW repair >5 yrs old. She was given loaner HAs to use until the HAs return. Loaner HAs were connected to her phone, connectivity confirmed in the office. 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 [email or web address] Not available 12/09/2024 16:39:46 Reason for Referral None Reported. Results Created Date Observation Date Name Description Value Unit Range Abnormal Flag Note LastModifiedBy Organization Detail LastModifiedTime 10/07/1910/07/2024 urina lysis panel , auto Unknown Analyte Clean Catch Not Available [facility] [address], [place], [address], 10/07/2024 12:48:19 10/07/1910/07/2024 urina lysis panel , auto Unknown Analyte Yellow Not Available [facility] [address], [place], [address], 10/07/2024 12:48:19 10/07/19 25 10/07/2024 urina lysis panel , auto Unknown Analyte Clear Not Available [facility] [address], [place], [address], 10/07/2024 12:48:19 10/07/1910/07/2024 urina lysis panel , auto Unknown Analyte 1.005 Not Available [facility] [address], [place], [address], 10/07/2024 12:48:19 10/07/19 25 10/07/2024 urina lysis panel , auto Unknown Analyte 1.003- 1.035 Not Available [facility] [place] [address], [place], [address], 10/07/2024 12:48:19 10/07/19 25 10/07/2024 urina lysis panel , auto Unknown Analyte 7.0 Not Available [facility] [address], [place], [address], 10/07/2024 12:48:19 10/07/1910/07/2024 urina lysis panel , auto Unknown Analyte 5.0-8. 0 Not Available [facility] [address], [place], [address], 10/07/2024 12:48:19 10/07/19 25 10/07/2024 urina lysis panel , auto Unknown Analyte Negati ve Not Available [facility] [address], [place], [address], 10/07/2024 12:48:19 10/07/19 25 10/07/2024 urina lysis panel , auto Unknown Analyte Negati ve Not Available [facility] [address], [place], [address], 10/07/2024 12:48:19 10/07/19 25 10/07/2024 urina lysis panel , auto Unknown Analyte Negati ve Not Available [facility] [address], [place], [address], 10/07/2024 12:48:19 10/07/19 25 10/07/2024 urina lysis panel , auto Unknown Analyte Negati ve Not Available [facility] [address], [place], [address], 10/07/2024 12:48:19 10/07/19 25 10/07/2024 urina lysis panel , auto Unknown Analyte Negati ve Not Available [facility] [address], [place], [address], 10/07/2024 12:48:19 10/07/1910/07/2024 urina lysis panel , auto Unknown Analyte Negati ve Not Available [facility] [address], [place], [address], 10/07/2024 12:48:19 10/07/19 25 10/07/2024 urina lysis panel , auto Unknown Analyte Normal Not Available [facility] [address], [place], [address], 10/07/2024 12:48:19 10/07/19 25 10/07/2024 urina lysis panel , auto Unknown Analyte Normal Not Available [facility] [address], [place], [address], 10/07/2024 12:48:19 10/07/1910/07/2024 urina lysis panel , auto Unknown Analyte Negati ve Not Available [facility] [address], [place], [address], 10/07/2024 12:48:19 10/07/1910/07/2024 urina lysis panel , auto Unknown Analyte Negati ve Not Available [facility] [address], [place], [address], 10/07/2024 12:48:19 10/07/1910/07/2024 urina lysis panel , auto Unknown Analyte Normal Not Available [facility] [address], [place], [address], 10/07/2024 12:48:19 10/07/1910/07/2024 urina lysis panel , auto Unknown Analyte Normal 1 mg/dl Not Available [facility] [address], [place], [address], 10/07/2024 12:48:19 10/07/1910/07/2024 urina lysis panel , auto Unknown Analyte Negati ve Not Available [facility] [address], [place], [address], 10/07/2024 12:48:19 10/07/19 25 10/07/2024 urina lysis panel , auto Unknown Analyte Negati ve Not Available [facility] [address], [place], [address], 10/07/2024 12:48:19 10/07/1910/07/2024 urina lysis panel , auto Unknown Analyte Negati ve Not Available [facility] [address], [place], [address], 10/07/2024 12:48:19 10/07/19 25 10/07/2024 urina lysis panel , auto Unknown Analyte Negati ve Not Available [facility] [address], [place], [address], 10/07/2024 12:48:19 Result Notes None recorded. 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 2015 From Automated Load;Provi alex: Samira Oh;Sta tus: Active Not Available [facility] 6 10:00:49 Idiopathi c osteoarth ritis 829056815 Active 2015 From Automated Load;Provi alex: Samira Oh;Sta tus: Active Not Available [facility] 6 10:00:49 Acquired trigger finger 7592861 Active 2015 From Automated Load;Provi alex: Binta Hatch;St atus: Active Not Available [facility] 6 10:00:49 Low back pain 215424549 Active 2015 Provider: Mckayla Sawant;Sta tus: Active Not Available [facility] 6 10:00:49 Pain in right lower limb 525253406 Active 2015 From Automated Load;Provi alex: Mckayla Sawant;Sta tus: Active Not Available [facility] 7 08:17:17 Problem Notes None recorded. Procedures Surgical History Date Name Laterality Status Provider Name and Address Organization Details Recorded Time 12/03/19 Audiogram completed BOB FERNANDEZ, AUD [address] [place], [address], [facility] 12/02/2024 14:15:27 02/04/20 24 Cervical Epidural Steroid Injection - Edith completed BINTA VALLE MD [address] [place], [address], [facility] 02/04/2024 16:42:53 12/10/19 24 Lumbar Epidural Steroid Injection - Edith completed BINTA VALLE MD [address] [place], [address], [facility] 12/10/2023 13:08:38 10/15/19 24 Injection Joint/Bursa, Major completed Steve Jiang [facility] 11/03/2023 10:26:01 07/17/20 23 PTNM; single treatment completed Lissette Llanes [facility] 07/17/2023 10:20:48 07/10/20 23 PTNM; single treatment completed Lissette Llanes [facility] 07/10/2023 10:57:02 07/03/20 23 PTNM; single treatment completed Lissette Llanes [facility] 07/03/2023 10:00:46 06/26/20 Tympanogram completed BOB FERNANDEZ, AUD [address] [place], [address], [facility] 06/26/2023 14:08:53 06/26/20 Audiogram completed BOB FERNANDEZ AUD [address] [place], [address], [facility] 06/26/2023 13:46:18 06/26/20 PTNM; single treatment completed Lissette Llanes [facility] 06/26/2023 09:57:04 06/19/20 PTNM; single treatment completed Lissette Llanes [facility] 06/19/2023 10:02:20 06/18/20 Injection Joint/Bursa, Major completed SAMIRA VELASQUEZ MD [address] [place], [address], [facility] 06/18/2023 18:09:20 06/12/20 PTNM; single treatment completed Lissette Llanes [facility] 06/12/2023 09:32:33 06/05/20 PTNM; single treatment completed Lissette Llanes [facility] 06/05/2023 10:11:13 05/22/20 PTNM; [facility] 09:36:10 05/15/20 PTNM; single [facility]/15/2023 10:24:29 05/08/20 PTNM; single [facility]/08/2023 09:34:42 05/01/20 PTNM; [facility]01[facility] 09:38:00 04/24/20 PTNM; single treatment completed Lissette Llanes [facility] 04/24/2023 10:00:07 03/19/20 Injection Joint/Bursa, Major completed SAMIRA VELASQUEZ MD [address] [place], [address], [facility] 03/19/2023 19:21:27 01/03/20 PTNM; single treatment completed Lissette Llanes [facility] 01/02/2023 14:15:39 11/29/19 PTNM; single treatment completed Lissette Llanes [facility] 11/28/2022 11:13:43 02/15/20 23 PNE Implantation; Sacral Nerve completed Lissette Llanes [facility] 11/07/2022 15:36:06 10/10/19 23 PTNM; single treatment completed Lissette Llanes [facility] 10/10/2022 14:05:47 08/28/20 22 PTNM; single treatment completed Lissette Llanes [facility] 08/28/2022 16:08:39 07/18/20 22 PTNM; single treatment completed Lissette Llanes [facility] 07/18/2022 14:06:01 06/12/20 22 PTNM; single treatment completed Lissette Llanes [facility] 06/12/2022 09:28:34 04/30/20 22 PTNM; single treatment completed Lissette Llanes [facility] 04/30/2022 09:46:41 03/28/20 22 PTNM; single treatment completed Lissette Llanes [facility] 03/28/2022 12:10:29 02/03/20 22 PTNM; single treatment completed Marian Zamorano [facility] 02/02/2022 12:54:09 01/06/20 22 PTNM; single treatment completed Lissette Llanes [facility] 01/05/2022 09:43:05 12/09/19 22 PTNM; single treatment completed Lissette Llanes [facility] 12/08/2021 09:16:36 11/03/19 22 Orthotic, HFO, Static Custom completed MARIANO LUCERO JR, OTR/L, CHT [address] [place], [address], [facility] 11/03/2021 10:19:47 11/01/19 22 PTNM; single treatment completed Shamika Cook [facility] 11/01/2021 14:15:16 09/27/19 22 PTNM; single treatment completed Lissette Llanes [facility] 09/27/2021 13:44:55 08/30/20 21 PTNM; single treatment completed Lissette Llanes [facility] 08/30/2021 13:49:55 08/02/20 21 PTNM; single treatment completed Lissette Llanes [facility] 08/02/2021 13:39:59 07/05/20 PTNM; single treatment completed Fredericeriee Kirwin [place] [facility] 07/05/2021 14:16:42 06/08/20 Audiogram completed BOB REBECCA, AUD [address] [place], [address], [facility] 06/08/2021 14:36:24 06/07/20 PTNM; single treatment completed Lissette Llanes [place] [facility] 06/07/2021 13:51:12 05/10/20 PTNM; single treatment completed Lissette Llanes [place] [facility] 05/10/2021 13:50:25 04/12/20 PTNM; single treatment completed Deseriee Kirwin [facility] 04/12/2021 14:41:42 03/15/20 PTNM; single treatment completed Shamika Cook [place] [facility] 03/15/2021 14:14:49 02/16/20 PTNM; single treatment completed Marian Zamorano [facility] 02/15/2021 14:11:53 01/19/20 PTNM; single treatment completed Lissette Llanes [facility] 01/18/2021 15:01:10 12/15/19 PTNM; single treatment completed Lissette Llanes [facility] 12/14/2020 14:29:21 11/16/19 PTNM; single treatment completed Lissette Llanes [place] [facility] 11/16/2020 14:08:30 10/19/19 PTNM; single treatment completed Lissette Llanes [facility] 10/19/2020 14:14:48 09/21/20 PTNM; single treatment completed Fredericeriee Kirwin [place] [facility] 09/21/2020 14:10:25 08/17/20 PTNM; single treatment completed Lissette Llanes [facility] 08/17/2020 12:42:47 07/20/20 PTNM; single treatment completed Lissette Llanes [place] [facility] 07/20/2020 14:31:41 09/30/20 20 PTNM; single treatment completed Lissette Llanes [place] [facility] 06/22/2020 15:07:04 05/25/20 PTNM; single treatment completed Lissette LEIJA [facility] 05/25/2020 14:54:12 04/27/20 PTNM; single treatment completed Lissette Llanes [place] [facility] 04/27/2020 15:14:35 03/30/20 20 PTNM; single treatment completed Elton Roth [place] [facility] 03/30/2020 13:54:01 02/24/20 PTNM; single treatment completed Lissette Llanes [place] [facility] 02/24/2020 12:22:05 01/28/20 PTNM; single treatment completed Lissette Llanes [place] [facility] 01/28/2020 14:31:41 12/02/19 PTNM; single treatment completed Lissette Llanes [place] [facility] 12/02/2019 13:41:35 10/28/19 PTNM; single treatment completed Lissette Llanes [place] [facility] 10/28/2019 13:34:17 09/30/19 PTNM; single treatment completed Lissette Llanes [place] [facility] 09/30/2019 13:36:55 08/26/20 PTNM; single treatment completed Lissette Llanes [place] [facility] 08/26/2019 14:23:11 07/29/20 19 PTNM; single treatment completed Elton Roth [place] [facility] 07/29/2019 13:40:34 06/24/20 PTNM; single treatment completed Lissette Llanes [place] [facility] 06/24/2019 13:47:33 05/27/20 PTNM; single treatment completed Aby Garland [place] [facility] 05/27/2019 13:26:10 04/22/20 PTNM; single treatment completed Lissette Llanes [place] [facility] 04/22/2019 13:48:48 03/25/20 PTNM; single treatment completed Lissette Llanes [place] [facility] 03/25/2019 13:38:21 02/19/20 PTNM; single treatment completed Lissette Llanes [place] [facility] 02/18/2019 13:36:03 01/22/20 19 PTNM; single treatment completed Lissette Llanes [place] [facility] 01/21/2019 13:28:09 12/25/19 19 PTNM; single treatment completed Deseriee Kirwin [place] [facility] 12/24/2018 13:27:25 11/27/19 19 PTNM; single treatment completed Lissette Llanes [place] [facility] 11/26/2018 13:23:30 10/29/19 19 PTNM; single treatment completed Lissette Llanes [place] [facility] 10/29/2018 13:24:59 10/01/19 19 PTNM; single treatment completed Lissette Llanes [place] [facility] 10/01/2018 13:37:18 09/03/20 18 PTNM; single treatment completed Lissette Llanes [place] [facility] 09/03/2018 14:01:41 08/06/20 18 PTNM; single treatment completed Deseriee Kirwin [place] [facility] 08/06/2018 13:24:22 07/09/20 18 PTNM; single treatment completed Deseriee Kirwin [place] [facility] 07/09/2018 13:53:27 06/11/20 18 PTNM; single treatment completed Deseriee Kirwin [place] [facility] 06/11/2018 13:43:34 05/14/20 18 PTNM; single treatment completed Lissette Llanes [place] [facility] 05/14/2018 13:35:13 04/16/20 18 PTNM; single treatment completed Lissette Llanes [place] [facility] 04/16/2018 13:40:58 03/19/20 18 PTNM; single treatment completed Lissette Llanes [place] [facility] 03/19/2018 15:35:10 02/20/20 18 PTNM; single treatment completed Lissette Llanes [place] [facility] 02/19/2018 13:52:08 02/13/20 18 PTNM; single treatment completed Lissettemissy Llanes [place] [facility] 02/12/2018 14:51:22 02/06/20 18 PTNM; single treatment completed Lissette Llanes [place] [facility] 02/05/2018 14:19:59 01/30/20 18 PTNM; single treatment completed Lissette Shraddha [place] [facility] 01/29/2018 14:04:02 01/23/20 18 PTNM; single treatment completed Lissette Shraddha [facility] 01/22/2018 13:51:44 01/16/20 18 PTNM; single treatment completed Lissette Carranzaford [facility] 01/15/2018 14:31:08 01/09/20 18 PTNM; single treatment completed Lissette [place] [facility] 01/08/2018 14:04:38 01/02/20 18 PTNM; single treatment completed Lissette Carranzaford [facility] 01/01/2018 14:04:04 12/26/19 18 PTNM; single treatment completed Lissette Shraddha [facility] 12/25/2017 13:48:37 12/19/19 18 PTNM; single treatment completed Lissette Shraddha [facility] 12/18/2017 14:07:42 12/14/19 18 Injection Joint/Bursa, Major completed SAMIRA VELASQUEZ MD [address] [place], [address], [facility] 12/13/2017 08:27:52 12/12/19 18 PTNM; single treatment completed Lissette [place] [facility] 12/11/2017 14:38:33 12/05/19 18 PTNM; single treatment completed Lissette Carranzaford [facility] 12/04/2017 14:31:53 11/20/19 17 Injection Joint/Bursa, Major, w/o US completed SAMIRA VELASQUEZ MD [address] [place], [address], [facility] 11/20/2016 16:42:55 09/23/19 16 Back Surgery completed Mita Omalley [facility] 11/27/2023 09:40:35 Total hip arthroplasty completed Pawan Storm [facility] 02/13/2019 08:01:33 Total Colectomy completed Мария Charles [facility] 01/20/2018 14:24:43 Tonsillectomy completed Мария Charles [facility] 01/20/2018 14:24:49 Hip Replacement completed Мария Charles [facility] 01/20/2018 14:25:08 Imaging Results None recorded. [...] Updated DateTime 10/07/2024 167.64 cm 26.1 kg/m2 61658.96 g Joyce Mendiola [facility] 10/07/2024 12:42:49 Social History Question Answer Notes LastModified by Organizat ion Details LastModified Time Tobacco Smoking Status Former Smoker Cleo best [facility] 09/21/2016 10:43:51 Accident Related Injury No [...] available 01/14/2024 What Is Your Relationship Status? [email or web address] Information not available 11/27/2023 How Much Tobacco Do You Smoke? No Information not available 06/10/2020 Has Tobacco Cessation Counseling Been Provided? No [email or web address] Information not available 11/27/2023 Work Related Injury? [...] N Immune System Disorder N Heart Attack ([place]) N Mental Illness N Neurological Problems N [...] SNOMED-CT Code Diagnosis ICD10 Code Diagnosis Note [id number] SAMIRA Bang MD [facility] [address] [place] [id number] 6 09/21/2016 10:24:20 09/21/2016 13:46:09 Greater trochanteric pain syndrome 5015840 M70.61 [id number] SAMIRA Bang MD [facility] [address] [place] [id number] 6 11/20/2016 15:26:22 11/20/2016 16:43:05 Greater trochanteric pain syndrome 0594206 M70.61 [id number] SAMIRA Bang MD [facility] [address] [place] [address] 01/29/2017 09:32:51 01/29/2017 10:24:17 Greater trochanteric pain syndrome 4445888 M70.61 Total repl acement of hip 79026334 Z96.085 [id number] BOB FERNANDEZ AUD [place]NT [place] [address] [place] [address] 02/26/2017 15:45:49 02/26/2017 17:11:34 [id number] [place] [address] [place] [address] 03/27/2017 13:37:33 03/27/2017 15:28:05 [id number] [place] [address] [place], [place] [address] 04/04/2017 16:10:59 04/04/2017 17:43:54 [id number] BOB FERNANDEZ AUD ENT SB [address] [place] [id number] 1 04/10/2017 17:14:42 04/10/2017 17:16:49 [id number] [place] [address] [place] [id number] 1 05/01/2017 15:30:34 05/01/2017 17:15:17 [id number] BOB FERNANDEZ AUD ENT SB [address] [place] [id number] 1 05/15/2017 14:41:24 05/15/2017 16:31:32 [id number] SAMIRA Bang MD ORTHOPEDI [address] [address] 07/04/2017 15:10:26 07/05/2017 14:03:16 Total replacement of hip 55160327 Z96.337 [id number] BOB FERNANDEZ AUD ENT [place] [address] [place] [address] 1 07/30/2017 15:48:24 07/30/2017 17:37:36 [id number] BOB FERNANDEZ AUD ENT SB [address] [place] [id number] 1 2017 15:07:58 2017 17:18:55 [id number] BOB FERNANDEZ AUD ENT [place] [address] [place] [id number] 1 08/21/2017 13:31:49 08/21/2017 15:40:27 [id number] BOB FERNANDEZ AUD ENT [place] [address] [place] [address] 1 10/16/2017 14:30:17 10/16/2017 14:58:16 [id number] BOB FERNANDEZ AUD ENT SB [address] [place] [id number] 1 10/30/2017 13:44:11 10/30/2017 15:22:52 [id number] BOB FERNANDEZ AUD ENT SB [address] [place] [id number] 1 11/20/2017 16:03:40 11/20/2017 16:35:48 [id number] LOUISE DESHPANDE MD [facility] [address] [place], [place] [id number] 12/04/2017 13:22:50 12/04/2017 15:12:05 Urge incontinence of urine 18137184 N39.41 [id number] LOUISE DESHPANDE MD [facility] [address] [place] [id number] 12/11/2017 13:51:44 12/13/2017 10:20:52 Urge incontinence of urine [id number] N39.41 [id number] SAMIRA Bang MD [facility] CLOSED [address] [place] [address] 12/13/2017 07:33:00 12/13/2017 08:26:57 Greater trochanteric pain syndrome [id number] M70.60 [id number] LOUISE DESHPANDE MD [facility] [address] [address] 12/18/2017 13:39:55 12/19/2017 09:21:37 Urge incontinence of urine [id number] N39.41 [id number] LOUISE DESHPANDE MD [facility] [address] [address] 12/25/2017 13:26:52 12/25/2017 16:42:07 Urge incontinence of urine [id number] N39.41 [id number] YOSELIN SCHMID ENT SB [address] [place] [address] 12/25/2017 14:43:13 12/25/2017 16:53:32 [id number] LOUISE DESHPANDE MD [facility] [address] [address] 01/01/2018 13:34:24 01/01/2018 14:32:05 Urge incontinence of urine [id number] N39.41 [id number] YOSELIN SCHMID ENT SB [address] [place] [address] 01/01/2018 14:46:50 01/01/2018 15:47:01 [id number] LOUISE DESHPANDE [facility] [address] [place] [address] 01/08/2018 13:37:51 01/08/2018 14:50:50 Urge incontinence of urine [id number] N39.41 [id number] LOUISE DESHPANDE MD [facility] [address] [place] [address] 01/15/2018 13:24:09 01/15/2018 15:42:47 Urge incontinence of urine 66475025 N39.41 [id number] MARIAN HICKS MD HEM/ONC [facility] CL[facility] [address] [place] [address] 01/20/2018 13:51:51 01/20/2018 15:07:06 High carcinoembryonic antigen level 667486496 R97.0 Will recheck today. Most recent CT [...] well. History of malignant neoplasm of colon 888334518 Z85.038 As above. Overweight 766765899 E66 .3 Continue exercise. Pt has lost 20 pounds intentiona lly by running. [id number] MD [facility] [address] [place] [address] 01/22/2018 12:52:01 01/22/2018 14:30:27 Urge incontinence of urine 20790465 N39.41 [id number] MD [facility] [address] [place] [address] 01/29/2018 13:28:34 01/29/2018 14:49:41 Urge incontinence of urine 46794876 N39.41 [id number] MD [facility] [address],[place] [place] [address] 02/05/2018 13:34:01 02/05/2018 15:24:33 Urge incontinence of urine [id number] N39.41 [id number] MD [facility] [address] [address] 02/12/2018 13:24:21 02/12/2018 17:00:16 Urge incontinence of urine [id number] N39.41 [id number] LOUISE DESHPANDE MD [facility] [address],[place] [address] 0 02/19/2018 13:29:19 02/19/2018 15:16:09 Urge incontinence of urine 18543734 N39.41 continue therapy follow-up 1 month for maintenanc e treatment. She will continue on a monthly basis and see me in 6 months Urinary tr act infectious disease 42499410 N39.0 if her urine grows significan t bacteria we will place her on appropriat e antibiotic s [id number] BOB REBECCA, AUD ENT SB [address] [place] [id number] 03/04/2018 14:34:09 03/04/2018 15:46:16 [id number] MD [facility] [address],[place] [address] 03/19/2018 14:38:02 03/19/2018 16:27:34 Urge incontinence of urine 60772782 N39.41 continue therapy follow-up 1 month for maintenanc e treatment. She will continue on a monthly basis and see me in 6 months [id number] MD [facility] [address] [address] 04/16/2018 13:15:32 04/16/2018 14:06:56 Urge incontinence of urine [id number] N39.41 continue therapy follow-up 1 month for maintenanc e treatment. She will continue on a monthly basis and see me in 6 months [id number] SAMIRA Bang MD ORTHOPEDI [address] [place] [address] 04/24/2018 15:19:29 04/24/2018 16:33:05 Total replacement of hip 56899786 Z96.641 History of total replacement of right hip joint 0617930443 90188 Z96.600 [id number] LOUISE DESHPANDE MD [facility] S [address] [place] [address] 05/14/2018 13:20:11 05/14/2018 14:12:54 Urge incontinence of urine [id number] N39.41 continue therapy follow-up 1 month for maintenanc e treatment. She will continue on a monthly basis and see me in 6 months [id number] FANNIE HURD MD [facility] [address] [place] [address] 06/06/2018 13:08:11 06/06/2018 15:01:16 Urge incontinence of urine 70336023 N39.41 [id number] LOUISE DESHPANDE MD [facility] S [address] [place] [address] 06/11/2018 13:08:23 06/11/2018 14:07:03 Urge incontinence of urine [id number] N39.41 continue therapy follow-up 1 month for maintenanc e treatment. She will continue on a monthly basis and see me in 6 months [id number] MARIAN HICKS MD HEM/ONC [facility] [address] [place] [address] 06/19/2018 10:38:44 06/19/2018 12:41:35 High carcinoembryonic antigen level 615626145 R97.0 This is normal today. She is doing well. She will colonoscop y when due. History of malignant neoplasm of colon 513927680 Z85.038 As above. Overweight 405215388 E66 .3 Continue exercise. Pt has lost 20 pounds over the past year intentiona lly by running. 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 [id number] BOB FERNANDEZ YOSELIN ENT SB [address] [place] [address] 1 07/02/2018 13:31:54 07/02/2018 17:14:02 [id number] LOUISE DESHPANDE MD [facility] [address],[place] [address] 0 07/09/2018 13:27:42 07/09/2018 14:27:24 Urge incontinence of urine 90291633 N39.41 continue therapy follow-up 1 month for maintenanc e treatment. She will continue on a monthly basis and see me in 6 months [id number] YOSELIN SCHMID ENT SB [address] [place] [address] 1 07/23/2018 13:14:06 07/23/2018 16:48:49 [id number] LOUISE DESHPANDE MD [facility] [address],[place] [address] 0 08/06/2018 13:08:12 08/06/2018 13:57:02 Urge incontinence of urine 51154830 N39.41 continue therapy follow-up 1 month for maintenanc e treatment. She will continue on a monthly basis and see me in 6 months [id number] YOSELIN SCHMID ENT SB [address] [place] [address] 1 08/06/2018 14:16:48 08/06/2018 17:13:32 [id number] YOSELIN SCHMID ENT SB [address] [place] [address] 1 08/20/2018 12:58:34 08/20/2018 17:30:15 [id number] LOUISE DESHPANDE MD [facility] [address],[place] [address] 0 09/03/2018 13:31:10 09/03/2018 14:28:40 Urge incontinence of urine 97598971 N39.41 continue therapy follow-up 1 month for maintenanc e treatment. She will continue on a monthly basis and see me in 6 months [id number] LOUISE DESHPANDE MD [facility] [address] [place] [address] 10/01/2018 13:03:12 10/01/2018 14:30:37 Urge incontinence of urine 10382777 N39.41 continue therapy follow-up 1 month for maintenanc e treatment. She will continue on a monthly basis and see me in 6 months [id number] BOB FERNANDEZYOSELIN ENT SB [address] [place] [address] 10/01/2018 14:31:18 05/27/2020 08:21:28 [id number] LOUISE DESHPANDE MD [facility] [address] [place] [address] 0 10/29/2018 13:11:06 10/29/2018 13:56:25 Urge incontinence of urine 72638692 N39.41 continue therapy follow-up 1 month for maintenanc e treatment. She will continue on a monthly basis and see me in 6 months [id number] LOUISE DESHPANDE MD [facility] [address] [place] [address] 0 11/26/2018 13:05:08 11/26/2018 14:14:34 Urge incontinence of urine 33839875 N39.41 continue therapy follow-up 1 month for maintenanc e treatment. She will continue on a monthly basis and see me in 6 months [id number] BOB FERNANDEZYOSELIN ENT SB [address] [place] [address] 12/16/2018 07:24:50 12/16/2018 10:00:48 [id number] MARIAN HICKS MD HEM/ONC [facility] [address] [place] [address] 12/16/2018 10:01:42 12/16/2018 11:25:21 High carcinoembryonic antigen level 061576145 R97.0 FU labs today. She is doing well. History of malignant neoplasm of colon 390766745 Z85.038 As above. Overweight 611407405 E66 .3 Continue exercise. Pt has lost 20 pounds over the past year intentiona lly by running. Solitary n odule of lung 797626831 R91.1 This is stable. Community acquired pneumonia 774917138 J18.9 Begin levaquin 500 mg po daily x 7 days. Pt will FU CT in 3 months. Suspect RITA secondary to this. [id number] MD [facility] [address],[place] [address] 12/24/2018 13:05:37 12/24/2018 13:29:53 Urge incontinence of urine 71127012 N39.41 continue therapy follow-up 1 month for maintenanc e treatment. She will continue on a monthly basis and see me in 6 months [id number] YOSELIN SCHMID ENT SB [address] [place] [address] 12/24/2018 14:31:50 12/24/2018 14:33:21 [id number] LOUISE DESHPANDE MD [facility] [address] [address] 01/21/2019 13:00:55 01/21/2019 13:47:34 Urge incontinence of urine 65531818 N39.41 continue therapy follow-up 1 month for maintenanc e treatment. She will continue on a monthly basis and see me in 6 months [id number] SAMIRA Bang MD [facility]OPEDI CS [facility] CLOSED [address] [place] [address] 02/13/2019 07:42:36 02/13/2019 08:31:41 History of total hip arthroplasty 2412953920 06 Z96.032 [id number] LOUISE DESHPANDE MD [facility] [address] [address] 02/18/2019 13:10:49 02/18/2019 14:14:10 Urge incontinence of urine 69502908 N39.41 continue therapy follow-up 1 month for maintenanc e treatment. She will continue on a monthly basis and see me in 6 months [id number] MARIAN HICKS MD HEM/ONC SB CLOSED [address] [place] [address] 03/17/2019 09:21:44 03/17/2019 10:53:58 [id number] FANNIE HURD MD [facility] [address] [place] [address] 03/25/2019 13:07:51 03/25/2019 14:07:21 Urge incontinence of urine [id number] N39.41 [id number] LOUISE DESHPANDE MD [facility] [address] [place] [address] 04/22/2019 13:18:09 04/22/2019 13:59:16 Urge incontinence of urine 70768030 N39.41 continue therapy follow-up 1 month for maintenanc e treatment. She will continue on a monthly basis and see me in 6 months [id number] [place] [address] [place] [address] 1 04/29/2019 13:23:08 04/29/2019 17:15:43 [id number] [place] [address] [place] [address] 1 05/08/2019 14:47:25 05/08/2019 17:25:24 Sensorineural hearing loss of bilateral ears 905736401 H90.3 [id number] [place] [address] [place] [address] 05/12/2019 13:54:53 05/12/2019 17:11:04 [id number] BOB YOSELIN FERNANDEZ ENT SB [address] [place] [id number] 05/26/2019 14:26:58 05/26/2019 17:33:12 [id number] MD [facility] [address] [place] [address] 05/27/2019 12:57:48 05/27/2019 13:24:14 Urge incontinence of urine [id number] N39.41 [id number] [place] [address] [place] [address] 1 06/17/2019 13:26:10 06/17/2019 16:57:31 [id number] MD [facility] [address],[place] [address] 0 06/24/2019 13:11:04 06/24/2019 13:58:27 Urge incontinence of urine [id number] N39.41 [id number] BOB FERNANDEZ AUD ENT SB [address] [place] [address] 1 07/08/2019 13:34:45 07/08/2019 17:17:15 [id number] MD [facility] [address],[place] [address] 0 07/29/2019 13:00:15 07/29/2019 13:58:53 Urge incontinence of urine 64137515 N39.41 [id number] BOB FERNANDEZ AUD ENT SB [address] [place] [address] 1 07/29/2019 14:25:43 07/29/2019 17:05:46 [id number] MD [facility] [address],[place] [address] 0 08/26/2019 13:19:28 08/26/2019 13:46:40 Urge incontinence of urine [id number] N39.41 [id number] BOB FERNANDEZ AUD ENT SB [address] [place] [address] 1 08/26/2019 15:19:38 08/26/2019 15:52:22 [id number] BOB FERNANDEZ AUD ENT SB [address] [place] [address] 1 09/02/2019 14:19:00 09/02/2019 16:02:40 [id number] LOUISE DESHPANDE MD [facility] [address],[place] [address] 0 09/30/2019 13:11:57 09/30/2019 14:04:35 Urge incontinence of urine 11095694 N39.41 [id number] BOB FERNANDEZ, AUD ENT SB [address] [place] [address] 09/30/2019 14:20:29 09/30/2019 15:34:34 [id number] MD [facility] [address] [place] [address] 10/28/2019 13:13:53 10/28/2019 14:10:50 Urge incontinence of urine [id number] N39.41 [id number] MD [facility] [address],[place] [address] 12/02/2019 13:11:25 12/02/2019 14:12:07 Urge incontinence of urine 62659571 N39.41 [id number] FANNIE HURD MD [facility] [address] [place] [address] 01/28/2020 13:45:36 01/28/2020 14:35:52 Urge incontinence of urine [id number] N39.41 [id number] LOUISE DESHPANDE MD [facility] S [address],[place] [address] 02/24/2020 11:34:11 02/24/2020 12:42:00 Urge incontinence of urine 44484980 N39.41 [id number] SAMIRA Bang MD [facility]THOPEDI CS [facility] CLOSED [address] [place] [address] 02/25/2020 13:27:22 02/25/2020 15:50:27 History of total hip arthroplasty 4553117038 06 Z96.194 [id number] MARIAN HICKS MD HEM/ONC SB CLOSED [address] [place] [address] 03/15/2020 08:24:14 03/15/2020 10:26:34 [id number] MD [facility] [address],[place] [address] 0 03/30/2020 13:12:02 03/30/2020 14:19:17 Urge incontinence of urine 54054864 N39.41 [id number] MD [facility] [address],[place] [address] 0 04/27/2020 14:34:43 04/27/2020 15:22:28 Urge incontinence of urine [id number] N39.41 [id number] MD [facility] [address],[place] [address] 0 05/25/2020 14:28:01 05/25/2020 14:53:19 Urge incontinence of urine 77109332 N39.41 Urinary tr act infectious disease 68924544 N39.0 if her urine grows significan t bacteria we will place her on appropriat e antibiotic s [id number] BOB FERNANDEZ, AUD ENT SB [address] [place] [address] 06/01/2020 14:56:56 06/01/2020 17:06:01 [id number] MD [facility] [address],[place] [address] 0 06/10/2020 13:08:29 06/10/2020 13:54:55 Neurogenic dysfunction of urinary bladder 636412395 N31.9 P continue PTNM Acute infe ctive cystitis 109637912 N30.00 resolved [id number] MD [facility] [address],[place] [address] 0 06/22/2020 14:23:07 06/22/2020 14:55:34 Urge incontinence of urine 98289640 N39.41 [id number] MD [facility] [address],[place] [address] 0 07/20/2020 13:56:00 07/20/2020 14:57:47 Urge incontinence of urine 53666126 N39.41 [id number] MD [facility] [address] [address] 08/17/2020 11:46:44 08/17/2020 13:21:22 Urge incontinence of urine 42729935 N39.41 [id number] BOB FERNANDEZ AUD ENT SB [address] [place] [address] 1 08/23/2020 15:12:17 08/23/2020 17:02:21 [id number] LOUISE DESHPANDE MD [facility] S [address],[place] [address] 09/21/2020 13:42:28 09/21/2020 14:47:33 Urge incontinence of urine [id number] N39.41 [id number] LUOISE DESHPANDE MD [facility] [address],[place] [address] 0 10/19/2020 13:44:52 10/19/2020 14:49:53 Urge incontinence of urine 04318529 N39.41 [id number] BOB FERNANDEZ, AUD ENT SB [address] [place] [address] 1 11/16/2020 10:52:49 11/16/2020 11:59:49 [id number] MD [facility] [address],[place] [address] 11/16/2020 13:36:14 11/16/2020 14:25:33 Urge incontinence of urine 27721157 N39.41 [id number] MD [facility] [address],[place] [address] 12/14/2020 14:03:35 12/14/2020 14:58:30 Urge incontinence of urine 05875490 N39.41 [id number] LOUISE DESHPANDE MD [facility] [address] [address] 01/18/2021 14:30:47 01/18/2021 15:34:52 Urge incontinence of urine [id number] N39.41 [id number] MD [facility] [address] [place] [address] 02/15/2021 13:38:32 02/16/2021 09:13:19 Urge incontinence of urine 45387622 N39.41 [id number] ELLE LAZCANO PA-C [facility]THOPEDI CS [facility] CLOSED [address] [place] [address] 03/14/2021 12:09:11 03/14/2021 13:17:58 History of total replacement of right hip joint 0668517171 39398 Z96.641 1. Patient is 4 years status [...] weeks for reevaluati on and test results. [id number] MD [facility] [address] [place] [address] 03/15/2021 13:44:24 03/15/2021 14:48:28 Urge incontinence of urine 51027502 N39.41 Urinary tr act infectious disease 74517255 N39.0 if her urine grows significan t bacteria we will place her on appropriat e antibiotic s [id number] [place] [address] [place] [address] 03/15/2021 14:39:32 03/15/2021 14:40:48 [id number] MARIAN HICKS MD HEM/ONC SB CLOSED [address] [place] [address] 03/20/2021 09:38:03 03/20/2021 10:52:49 [id number] SAMIRA Bang MD ORTHOPEDI [address] [address] 04/06/2021 08:16:01 04/06/2021 09:47:49 Pain associated with prosthesis of hip joint 516569417 T84.84XD Greater tr ochanteric pain syndrome of right lower limb 2940273532 [id number] M70.61 [id number] LOUISE DESHPANDE MD [facility] S [address],[place] [address] 04/12/2021 13:43:54 04/12/2021 15:13:50 Urge incontinence of urine 16804588 N39.41 [id number] LOUISE DESHPANDE MD [facility] [address] [address] 05/10/2021 13:34:40 05/10/2021 14:26:46 Urge incontinence of urine 20634302 N39.41 [id number] LOUISE DESHPANDE MD [facility] S [address] [address] 06/07/2021 13:32:44 06/07/2021 14:19:56 Urge incontinence of urine 93850167 N39.41 [id number] BOBKEY FERNANDEZ, AUD ENT SB [address] [place] [address] 06/08/2021 13:49:54 06/08/2021 16:42:15 Sensorineural hearing loss of bilateral ears 084961883 H90.3 [id number] LOUISE DESHPANDE MD [facility] [address] [address] 07/05/2021 13:23:36 07/05/2021 16:36:44 Urge incontinence of urine 94063637 N39.41 [id number] LOUISE DESHPANDE MD [facility] S [address] [place] [address] 08/02/2021 13:10:35 08/02/2021 16:34:23 Urge incontinence of urine 53974630 N39.41 [id number] LOUISE DESHPANDE MD [facility] S [address] [place] [address] 08/30/2021 13:47:39 08/30/2021 14:32:27 Urge incontinence of urine 35509281 N39.41 Continue monthly therapy and see me one year earlier if necessary [id number] LOUISE DESHPANDE MD [facility] [address] [place] [id number] 09/27/2021 13:15:34 09/27/2021 14:17:35 Urge incontinence of urine [id number] N39.41 Continue monthly therapy and see me one year earlier if necessary Urinary tr act infectious disease [id number] N39.0 if her urine grows significan t bacteria we will place her on appropriat e antibiotic s [id number] BOBKEY FERNANDEZ, A[address] [place] [address] 10/18/2021 13:56:49 10/18/2021 15:20:56 [id number] LOUISE DESHPANDE MD [facility] [address] [place], [place] [phone] 11/01/2021 13:40:19 11/01/2021 14:42:41 Urge incontinence of urine [id number] N39.41 Continue monthly therapy and see me one year earlier if necessary [id number] PREETI GOULD PA-C [facility] [address] [place] [address] 11/03/2021 08:57:04 11/03/2021 10:02:09 Pain in right thumb [id number] M79.644 Fracture o f proximal phalanx of finger [id number] S62.511A DOI: 10/26/21 [id number] MARIANO LUCERO JR, OTR/L, CHT PHYSICAL THERAPY / HAND THERAPY [facility] CL[facility] [address] [place] [address] 11/03/2021 10:06:54 11/03/2021 13:43:45 Fracture of proximal phalanx of finger [id number] S62.511D [id number] PREETI GOULD PA-C ORTHOPEDI [address] [place] [address] 11/17/2021 07:54:31 11/17/2021 08:32:03 Fracture of proximal phalanx of finger [id number] S62.511A DOI: 10/26/21 Radial sty loid tenosynovitis [id number] M65.4 Osteoarthr osis of the carpometacarpal joint of the thumb [id number] M18.9 Severe right thumb CMC joint OA [id number] BRENNA IVAN MD [facility] [address] [place] [address] 12/08/2021 09:08:20 12/08/2021 09:51:00 Urge incontinence of urine [id number] N39.41 [id number] PREETI GOULD PA-C ORTHOPEDI [address] [place] [address] 12/15/2021 08:11:38 12/15/2021 08:42:01 Fracture of proximal phalanx of finger [id number] S62.511A DOI: 10/26/21 Radial sty loid tenosynovitis [id number] M65.4 Osteoarthr osis of the carpometacarpal joint of the thumb 60384524 M18.9 Severe right thumb CMC joint OA [id number] BRENNA IVAN MD [facility] [address] [place] [address] 01/05/2022 09:22:24 01/05/2022 10:05:21 Urge incontinence of urine [id number] N39.41 [id number] FANNIE HURD MD [facility] [address] [place] [address] 02/02/2022 09:11:22 02/02/2022 10:33:50 Urge incontinence of urine [id number] N39.41 [id number] MARAIN HICKS MD HEM/[facility] CLOSED [address] [place] [address] 03/23/2022 09:16:07 03/23/2022 11:00:42 [id number] FANNIE HURD MD [facility] [address] [place] [address] 03/28/2022 11:59:11 03/28/2022 13:05:59 Urge incontinence of urine [id number] N39.41 [id number] PA LASSITER JR, MD [facility] [facility] [address] [place] [address] 04/30/2022 08:59:46 04/30/2022 09:43:22 Urge incontinence of urine [id number] N39.41 [id number] BRENNA IVAN MD [facility] [address] [place] [address] 0 06/12/2022 08:47:25 06/12/2022 12:05:24 Urge incontinence of urine [id number] N39.41 [id number] LOUISE DESHPANDE MD [facility] [address] [address] 07/18/2022 13:13:56 07/23/2022 14:20:24 Urge incontinence of urine [id number] N39.41 Continue monthly therapy and see me one year earlier if necessary [id number] FANNIE HURD MD [facility] [address] [address] 08/28/2022 15:33:20 08/28/2022 20:56:38 Urge incontinence of urine [id number] N39.41 [id number] BOB FERNANDEZ, AUD ENT [address] [place] [address] 09/10/2022 08:50:21 09/10/2022 11:17:58 [id number] LOUISE DESHPANDE MD [facility] [address] [place] [address] 0 10/10/2022 13:11:43 10/10/2022 14:42:26 Urge incontinence of urine 42806719 N39.41 Continue monthly therapy and see me one year earlier if necessary [id number] FANNIE HURD MD [facility] [address] [place] [address] 0 10/24/2022 13:08:36 10/24/2022 13:41:59 Urge incontinence of urine [id number] N39.41 [id number] FANNIE HURD MD [facility] [address] [place] [address] 0 11/07/2022 13:45:16 11/07/2022 15:55:21 Urge incontinence of urine [id number] N39.41 [id number] FANNIE HURD MD [facility] [address] [place] [address] 0 11/13/2022 10:00:32 11/13/2022 10:41:26 Urge incontinence of urine [id number] N39.41 [id number] BRENNA IVAN MD [facility] [address] [place] [address] 0 11/28/2022 10:43:39 11/28/2022 11:29:42 Urge incontinence of urine [id number] N39.41 [id number] LOUISE DESHPANDE MD [facility] [address] [place] [address] 0 01/02/2023 13:50:01 01/02/2023 16:35:22 Urge incontinence of urine [id number] N39.41 Continue monthly therapy and see me one year earlier if necessary [id number] ELLE LAZCANO, BRIAN [facility] CLOS[facility] [address] [address] 01/28/2023 14:09:24 01/28/2023 15:05:34 History of right hip replacement [id number] 875643 Z96.641 Assessment : 7 years status post right hip arthroplas ty with chronic pain with increased trochanter ic discomfort Plan: Long discussion today with Ms. Holly. Patient is having ongoing pain. Previous work-ups have been virtually negative with normal inflammato ry markers and bone scan. Still has severe groin pain as well as trochanter ic pain. Will order a [place] MRI of the right hip for further investigat ion. Hopefully this will allow us to see what is causing her discomfort . We will have patient follow-up after MRI. Call with any concerns. Greater tr ochanteric pain syndrome of right lower limb [id number] M70.61 [id number] SAMIRA Bang MD [facility] CLOSED [address] [place] [address] 03/19/2023 13:42:47 03/21/2023 12:14:15 Greater trochanteric pain syndrome 1311836 M70.60 Overall, physical exam and radiograph s [...] this juncture. History of total hip arthroplasty [id number] 06 Z96.649 Radiograph s are within normal limits. No additional investigat ions necessary for the arthroplas ty itself. Pain of le ft knee joint [id number] 69121 M25.562 Alyssia is also reporting some left knee pain. We have not investigat ed this in the past. I have suggested that at her 3-month follow-up, we obtain some dedicated x-rays, and discuss treatment options. Clinical suspicion is valgus arthritis in the left knee. [id number] MARIAN HICKS MD [facility] CLOSED [address] [place] [address] 03/29/2023 09:13:58 03/29/2023 10:18:49 [id number] LOUISE DESHPANDE MD [facility] [address] [address] 04/17/2023 13:04:51 04/17/2023 14:19:37 Urge incontinence of urine [id number] N39.41 Continue monthly therapy and see me one year earlier if necessary [id number] FANNIE HURD MD [facility] [address] [place] [address] 04/24/2023 09:18:31 04/24/2023 10:05:40 Urge incontinence of urine [id number] N39.41 [id number] BRENNA IVAN MD [facility] [address] [address] 05/01/2023 09:00:49 05/01/2023 10:11:59 Urge incontinence of urine [id number] N39.41 [id number] BOB FERNANDEZ, AUD ENT [address] [place] [address] 05/08/2023 10:34:38 05/08/2023 11:47:04 [id number] FANNIE HURD MD [facility] [address] [address] 05/08/2023 09:10:41 05/08/2023 10:06:58 Urge incontinence of urine [id number] N39.41 [id number] BRENNA IVAN MD [facility] [address] [address] 05/15/2023 09:20:19 05/15/2023 10:56:55 Urge incontinence of urine [id number] N39.41 [id number] FANNIE HURD MD [facility] [address] [address] 05/22/2023 09:10:31 05/22/2023 10:01:51 Urge incontinence of urine [id number] N39.41 [id number] SAMIRA Bang MD [facility] CL[facility] [address] [place] [address] 06/18/2023 08:31:43 06/18/2023 09:46:07 Pain of left knee joint [id number] 33482 M25.562 Symptoms resolved, mild degenerati ve changes on x-ray. Reviewed conservati ve treatment options, including steroid injection, which she politely declined today. We can reconsider this at any point. History of total hip arthroplasty [id number] 06 Z96.641 Z96.642 Greater tr ochanteric pain syndrome 2166520 M70.60 Overall, physical exam and radiograph s are within normal limits. Symptoms are consistent with greater trochanter ic pain syndrome, which has been a chronic problem for her on the right side. Good result from last trochanter ic injection. Repeat injection today. Continue PT, or home exercise program. Follow-up in 4 months, for repeat trochanter ic injection. [id number] MD [facility] [address] [address] 06/05/2023 09:26:25 06/05/2023 10:47:16 Urge incontinence of urine [id number] N39.41 [id number] FANNIE [facility]URD MD [facility] [address] [address] 06/12/2023 09:10:09 06/12/2023 10:17:05 Urge incontinence of urine [id number] N39.41 [id number] MD [facility] [address] [address] 06/19/2023 09:38:28 06/19/2023 10:31:51 Urge incontinence of urine [id number] N39.41 [id number] FANNIE HURD MD [facility] [address] [place] [address] 06/26/2023 09:31:44 06/26/2023 10:31:50 Urge incontinence of urine [id number] N39.41 [id number] BOB FERNANDEZ, YOSELIN ENT [address] [place] [address] 06/26/2023 13:08:35 06/26/2023 15:38:41 Sensorineural hearing loss of bilateral ears 710934412 H90.3 [id number] BRENNA IVAN MD [facility] [address] [address] 07/03/2023 09:42:02 07/08/2023 07:19:00 Urge incontinence of urine [id number] N39.41 [id number] FANNIE HURD MD [facility] [address] [address] 07/10/2023 10:27:04 07/10/2023 11:21:48 Urge incontinence of urine [id number] N39.41 [id number] BRENNA IVAN MD [facility] [address] [address] 07/17/2023 09:43:32 07/19/2023 09:24:26 Urge incontinence of urine [id number] N39.41 [id number] JIGAR WOODALL PA-C [facility] CL[facility] [address] [place] [address] 10/15/2023 09:31:26 10/15/2023 10:53:20 Greater trochanteric pain syndrome 1502719 M70.60 Mrs. Holly is an extremely pleasant [...] responds. Pain of le ft knee joint 2011789696 00930 M25.562 ASSESSMENT : DJD LEFT knee PLAN:We [...] 3 months History of total hip arthroplasty 4674671535 06 Z96.641 Z96.642 Iliotibial band friction syndrome of right knee 3477280732 96668 M76.31 Antalgic gait 18127856 R 26.89 [id number] AARTI FARRAR PA-C NEUROSURG [facility] CLOSED [address] [facility],[address] [place] [address] 11/19/2023 08:28:21 11/20/2023 05:31:38 Cervical radiculopathy 34476839 M54.12 Lumbar radiculopathy 128 747420 M54.16 [id number] BINTA VALLE MD [facility] CLOSED [address] [place] [address] 11/27/2023 09:19:42 11/27/2023 16:20:04 Degeneration of lumbar intervertebral disc 24987495 M51.36 Lumbar radiculopathy 128 291261 M54.16 Spinal ra nosis of lumbar region 49011222 M48.062 [id number] BINTA VALLE MD [facility] PL[facility] OF SERVICE PROFESSIO NAL CHARGES [address] [facility], [address] [place] [address] 12/10/2023 12:28:19 12/10/2023 13:47:06 Lumbar radiculopathy 906593590 M54.16 [id number] AARTI FARRAR PA-C [facility] CLOSED [address] [place] [address] 12/31/2023 09:45:27 01/01/2024 04:28:47 Unsteady when walking 81502424 R26.89 Lumbar radiculopathy 128 843329 M54.16 Neck pain 11566721 M54.2 [id number] JIGAR WOODALL PA-C [facility] CLOSED [address] [place] [address] 01/14/2024 09:27:17 01/14/2024 10:41:23 Trochanteric bursitis of right hip 7427241781 38010 M70.61 ASSESSMENT : Trochanter ic bursitis RIGHT [...] patient. Osteoarthr itis of left knee joint 0965080474 92128 M17.12 Defers CSI for now, just had [...] ensure stable kidney/hep atic function. Antalgic gait 16646679 R 26.89 Continue to work in PT Degenerati on of lumbar intervertebral disc 73679973 M51.36 Having lumbar fusion with Dr. Benton in future, working in PT first. [id number] ALICIA COLORADO PA-C PAIN MEDICINE CLOSED [address] [place] [address] 01/14/2024 07:30:23 01/14/2024 16:02:52 Lumbar radiculopathy 023605341 M54.16 Degenerati on of lumbar intervertebral disc 90219740 M51.36 Spinal ra nosis of lumbar region 36118564 M48.062 Cervical spondylosis 387 121520 M47.812 [id number] BINTA VALLE MD [facility] [address] OF SERV[address] PROFESSIO NAL CHARGES [address] [facility], [address] [place] [address] 02/04/2024 15:00:59 02/04/2024 15:53:12 Cervical radiculopathy 89464273 M54.12 [id number] ALICIA COLORADO PA-C PAIN MEDICINE CLOSED [address] [place] [address] 03/11/2024 08:39:36 03/11/2024 16:08:10 Cervical spondylosis 071204090 M47.812 Lumbar radiculopathy 128 522507 M54.16 Degenerati on of lumbar intervertebral disc 81420898 M51.36 Spinal ra nosis of lumbar region 44177124 M48.062 [id number] YOSHI ARCEO MD NEUROLOGY SB CLOSED [address] [place] [address] 03/18/2024 10:19:16 03/18/2024 13:24:21 Spinal stenosis of lumbar region 23135092 M48.061 Impairment of balance 38 9467349 R26.89 [id number] DERRICK BEE, DYNAMICS AX CONSULTANT [facility]G [facility] CL[facility] [address] [facility] [place] [address] 04/02/2024 09:38:16 04/03/2024 04:26:06 Unsteady when walking 40536068 R26.89 Lumbar radiculopathy 128 090928 M54.16 Neck pain 54294940 M54.2 [id number] LOUISE DESHPANDE MD [facility] [address] [place] [address] 04/08/2024 12:50:15 04/08/2024 14:13:03 Urge incontinence of urine 56480300 N39.41 As above follow-up 1 year [id number] JIGAR WOODALL PA-C [facility] CLOSED [address] [place] [address] 05/27/2024 11:07:28 05/27/2024 12:14:39 Derangement of left knee 5057515123 3898255 M23.92 Assessment : possible derangemen t of [...] to see what the MRI shows first. [id number] JIGAR WOODALL PA-C [facility] CLOSED [address] [place] [address] 07/27/2024 09:11:33 07/27/2024 09:41:07 Derangement of left knee 6028393467 1506699 M23.92 Assessment : possible derangemen t of [...] Chacorta Patel, provided handout of informatio n. [id number] MD [facility] [address] [place] [address] 09/02/2024 12:05:26 09/04/2024 04:38:33 Urge incontinence of urine 12608041 N39.41 As above follow-up 1 year Urolithiasis 41961542 N2 0.[address] scan findings. [id number] MD [facility] [address] [place] [address] 10/07/2024 12:42:33 10/07/2024 13:29:53 Urge incontinence of urine 68894728 N39.41 As above follow-up with me in 6 months, if the generic Myrbetriq is not covered she will request additional samples when necessary [id number] YOSELIN SCHMID ENT [address] [place] [address] 12/02/2024 13:55:48 12/02/2024 15:43:15 Sensorineural hearing loss of bilateral ears 367423699 H90.3 [id number] YOSELIN SCHMID ENT [address] [place] [address] 12/09/2024 14:09:27 12/09/2024 16:40:08 [id number] YOSELIN SILVA ENT SB [address] [place] [address] 12/31/2024 08:22:27 12/31/2024 12:09:11 [id number] GILDA ALCALA AUD [place] [facility] [address] [place] [address] 02/03/2025 10:41:42 02/04/2025 15:21:21 Health Concerns Section Related Observation LastModified by Organization Detai ls LastModified Time None Recorded Concern Status LastModified by Organization Details LastModified Time None Recorded Advance Directives Directive None Recorded Payers Insurance Date Sequence Insurance Name Policy Number Policy Lindsay Covered Member ID Lindsay Member ID Guarantor Name 12/02/2024 2 [employer] (MEDICARE SUPPLEMENT) Alyssia Traore Holly [id number] Alyssia Traore [employer] 01/31/2025 1 [place] Alyssia Holly [id number] Alyssia Holly 12/10/2023 2 AARP Alyssia Traore Holly [id number] Alyssia Traore [employer] 08/19/2019 PAYMENT PLAN Alyssia Traore Holly 12/10/2023 2 [employer] (MEDICARE SUPPLEMENT) Alyssia Traore Holly [id number] Alyssia Holly 12/02/2024 2 [facility] (MEDICARE SUPPLEMENT) Alyssia Traore Avni [id number] Alyssia Traore [employer] 01/31/2025 [employer] ASSIGNED (MEDICARE DME REGION B) Alyssia Traore Holly [id number] Alyssia Traore [employer] Notes Date Note [...] and occasionally urgency incontinence LOUISE DESHPANDE MD [address] [place] [address], [id number], [place] [facility] 10/07/2024 13:29:05 12/02/2024 text/html Hearing Evaluati on [...] w/ HAs) BOB FERNANDEZ, AUD [address] [place], [address], [facility] 12/02/2024 15:43:03 12/09/2024 text/html Sending HAs in f or OW repair >5 yrs old. BOB FERNANDEZ, AUD [address] [place], [address], [facility] 12/09/2024 16:39:49 OBGyn Episode No OBEpisode recorded.
[2025-04-02 19:23] LABS: POC Glucose,Bedside 113 (70-110)
--- NOTE | 2025-04-02 19:40 | PC.NURSE ---
Notified Dr. Frazier about patients ng contents being blood tinged at this time. Dr. Frazier wants the suction to be turned off for 5-10 mins and have patient get up and walk around and try and get the ng tube to no longer be sitting on the lining. Dr. Frazier said patient could also have a bleeding ulcer which isn't uncommon after the type of surgery she had or could just be old blood from the perforated gastric ulcer she had. Dr. Frazier said to just monitor patient and if any changes or starts having massive bleeding out of ng tube then to call him. Dr. Frazier also advised to make sure that patients hemoglbin hasn't dropped.
[2025-04-03] VITALS (37 sets, daily range): BP systolic 100–152; BP diastolic 59–77; PULSE 61–94; RESP 10–24; TEMP 36.3–37.1; O2SAT 92–96; BMI 26.5
[2025-04-03 00:18] LABS: POC Glucose,Bedside 113 (70-110)
[2025-04-03] MEDS: PIPERCILLIN/TAZO 3.375 GM in 0.9 % SODIUM CHLORIDE 50 ML IV ×4 (00:31→18:40)
[2025-04-03] MEDS: 0.9 % SODIUM CHLORIDE 1000ML 1,000 ML 75 ML IV (02:51)
[2025-04-03] MEDS: PANTOPRAZOLE 40MG VIAL 40 MG IV ×2 (08:43→20:36)
[2025-04-03] MEDS: SODIUM CHLORIDE 0.9% 10ML VIAL 10 ML IV ×2 (08:43→20:36)
--- NOTE | 2025-04-03 08:44 | EXP.ACUTE.PN ---
Subjective *Date: 04/03/25 *Time: 08:44 Interval history: She is doing well. Vital signs are good. Needs repeat bloodwork. NG in place and had a bit of blood early this AM. Resolved with repositioning NG and ambulating patient. Medical Exam Vital signs and Labs for Last 24 Hours: Vital Signs Temp Pulse Pulse Resp BP Pulse Ox O2 Del Method 04/03/25 08:00 80 04/03/25 08:00 98.8 F 77 12 118/62 95 Room Air 04/03/25 07:00 Room Air 04/03/25 06:00 79 15 122/77 95 Room Air 04/03/25 05:00 Room Air 04/03/25 04:00 97.6 F 85 16 120/72 94 L 04/03/25 04:00 78 04/03/25 03:00 Room Air 04/03/25 02:00 84 12 100/60 L 93 L Room Air 04/03/25 02:00 75 95 Room Air 04/03/25 01:00 Room Air 04/03/25 00:00 97.3 F L 77 12 102/59 L 96 Room Air 04/03/25 00:00 78 04/02/25 23:00 Room Air 04/02/25 22:00 78 16 109/52 L 92 L 04/02/25 21:00 Room Air 04/02/25 20:07 97.6 F 89 21 111/62 95 04/02/25 20:00 84 95 Room Air 04/02/25 20:00 78 04/02/25 18:45 80 16 95 Room Air 04/02/25 18:30 77 19 94 L Room Air 04/02/25 18:27 Room Air 04/02/25 18:15 84 23 94 L Room Air 04/02/25 18:13 85 21 126/64 94 L Room Air 04/02/25 18:09 89 95 Room Air 04/02/25 17:45 81 20 94 L Room Air 04/02/25 17:30 80 21 96 Room Air 04/02/25 17:15 79 17 94 L Room Air 04/02/25 17:00 85 18 94 L Room Air 04/02/25 17:00 Room Air 04/02/25 16:00 77 04/02/25 16:00 97.9 F 80 16 103/56 L 95 Room Air 04/02/25 14:44 Room Air 04/02/25 14:00 79 15 103/54 L 94 L Room Air 04/02/25 14:00 93 L Room Air 04/02/25 13:00 Room Air 04/02/25 12:00 80 04/02/25 12:00 97.9 F 81 18 113/62 94 L Room Air 04/02/25 11:00 Room Air 04/02/25 10:01 83 22 111/91 H 94 L Room Air 04/02/25 09:00 Room Air Intake and Output 04/02/25 04/03/25 04/03/25 19:59 03:59 11:59 Intake Total 132 / 1232 1100 / 1232 Output Total 460 / 795 200 / 795 135 / 795 Balance -328 / 437 900 / 437 -135 / 437 Intake: Intake, Other Amount 90 / 90 Intake, Total IV Amount 42 / 1142 1100 / 1142 0.9 % Sodium Chloride 1000ML 1, 1000 / 1000 000 ml @ 75 mls/hr IV .[id number] ZACARIAS Rx#:[id number] Pipercillin/Tazo 3.375 gm In 0. 42 / 142 100 / 142 9 % Sodium Chloride 50 ml @ 100 mls/hr IV Q6H ZACARIAS Rx#:[id number] Output: Output, Urine Amount 200 / 400 200 / 400 0 / 400 Output, Gastric Drainage Amount 250 / 375 125 / 375 Right Nare 250 / 375 125 / 375 Output, Drainage Amount Right Abdomen Other: Number of Unmeasured Voids 0 Weight 165 lb 3.2 oz Patient Weight 04/03/25 11:59 Weight 165 lb 3.2 oz Laboratory Results - last 24 hr 04/02/25 11:58: POC Glucose 130 H 04/02/25 18:32: POC Glucose 113 H 04/03/25 00:11: POC Glucose 113 H I & O for Labs for Last 24 Hours: Intake & Output 03/31/25 04/01/25 04/02/25 04/03/25 11:59 11:59 11:59 11:59 Intake Total 0 / 0 1232 / 1232 Output Total 835 / 835 795 / 795 Balance -835 / -835 437 / 437 Weight 157 lb 8 oz 165 lb 3.2 oz Head: Present normocephalic Neck: Present normal inspection Respiratory: Present CTA bilaterally; Absent respiratory distress Cardiac: Present Reg Rate and Rhythm GI: Present soft and tenderness (normal post-surgical); Absent distention (NG tube) Rectal (female): Present deferred (female): Present deferred Extremities: Present normal inspection and tenderness (She has Dercum's syndrome and chronic tenderness) Skin: Present intact Neuro: Present alert and oriented x 3 Assessment and Plan *Assessment and plan (1) Ulcer, gastric, acute, with perforation: Status: Acute Category: Medical Code(s): K25.1 - Acute gastric ulcer with perforation (2) Leukocytosis: Status: Acute Category: Medical Code(s): D72.829 - Elevated white blood cell count, unspecified (3) Hypertension: Status: Acute Category: Medical Code(s): I10 - Essential (primary) hypertension (4) History of colon cancer: Status: Acute Category: Medical Code(s): Z85.038 - Personal history of other malignant neoplasm of large intestine (5) Hearing loss, bilateral: Status: Acute Qualifiers: Hearing loss type: unspecified Qualified Code(s): H91.93 - Unspecified hearing loss, bilateral Category: Medical Code(s): H91.93 - Unspecified hearing loss, bilateral (6) Former smoker: Status: Acute Category: Social Hx Code(s): Z87.891 - Personal history of nicotine dependence (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 Labs ordered.
[2025-04-03 09:18] LABS: Hematocrit 32.7 % (37.0-47.0); Hemoglobin 10.4 g/dL (12.2-16.2); Immature Granulocytes % 1.1 %; Mean Corpuscular HGB Conc 31.8 g/dL (31.8-35.4); Mean Corpuscular Hemoglobin 29.5 pg (27.0-31.2); Mean Corpuscular Volume 92.9 fl (81-99); Nucleated Red Blood Cells % 0 %; Platelet Count 395 K/mm3 (142-424); Red Blood Count 3.52 M/mm3 (4.20-5.40); Red Cell Distribution Width-SD 45.1 fL; White Blood Count 21.6 K/mm3 (4.8-10.8)
--- NOTE | 2025-04-03 09:41 | P.PN_ITS ---
Subjective Patient reports: no new complaints Narrative: Ambulating with no significant difficulty Exam Data for Last 24 hours Vital signs and Labs for Last 24 Hours: Temp Pulse Resp BP Pulse Ox O2 Del Method O2 Flow Rate 98.8 F 80 12 118/62 95 Room Air 2 04/03/25 08:00 04/03/25 08:00 04/03/25 08:00 04/03/25 08:00 04/03/25 08:00 04/03/25 08:00 04/02/25 03:00 Laboratory Results - last 24 hr 04/02/25 11:58: POC Glucose 130 H 04/02/25 18:32: POC Glucose 113 H 04/03/25 00:11: POC Glucose 113 H 04/03/25 08:56: WBC 21.6 H*, RBC 3.52 L, Hgb 10.4 L, Hct 32.7 L, MCV 92.9, MCH 29.5, MCHC 31.8, RDW 13.2, Plt Count 395, MPV 11.2 H, Neut % (Auto) 82.2 H, Lymph % (Auto) 9.2 L, [place] % (Auto) 5.2, Eos % (Auto) 2.0, Baso % (Auto) 0.3, Neut # (Auto) 17.8 H, Lymph # (Auto) 2.0, [place] # (Auto) 1.1 H, Eos # (Auto) 0.4, Baso # (Auto) 0.1 I & O for Last 24 hours: Intake & Output 03/31/25 04/01/25 04/02/25 04/03/25 11:59 11:59 11:59 11:59 Intake Total 0 / 0 1232 / 1232 Output Total 835 / 835 795 / 795 Balance -835 / -835 437 / 437 Weight 157 lb 8 oz 165 lb 3.2 oz Constitutional Constitutional: no acute distress *Routine Respiratory Exam Respiratory: Absent respiratory distress *Routine Cardiovascular Exam Cardiovascular: Absent tachycardia *Routine Abdominal Exam Comments: Dressing in place. No erythema. Brian-Bartlett drain in place. Minimal drainage. Progress Note: A&P Assessment and plan (1) Ulcer, gastric, acute, with perforation: Status: Acute Assessment and plan: Overall, doing fairly well status post exploration and Josh patch (postoperative day 1.5). Continue current medical therapy to include proton pump inhibition, Zosyn, and Diflucan Plan Gastrografin UGI tomorrow Continue nasogastric decompression (pending results of Gastrografin UGI) (2) Leukocytosis: Status: Acute Assessment and plan: Persistent leukocytosis on postop day 1.5. She remains afebrile. Continue Zosyn and Diflucan Repeat labs in a.m. (3) Postoperative anemia: Status: Acute Assessment and plan: No definitive evidence of ongoing blood loss. Repeat labs in a.m.
[2025-04-03 09:58] LABS: Alanine Aminotransferase 46 U/L (12-78); Albumin Level 3.0 g/dl (3.5-5.0); Albumin/Globulin Ratio 1.2 (1.1-1.8); Alkaline Phosphatase 221 U/L (38-126); Anion Gap 16.1 mEq/L (5-15); Aspartate Amino Transferase 30 U/L (14-36); Bilirubin,Total 0.5 mg/dl (0.2-1.3); Blood Urea Nitrogen 25 mg/dl (7-17); Calcium 9.0 mg/dl (8.4-10.2); Carbon Dioxide 27 mmol/L (22.0-30.0); Chloride 105 mmol/L (98-107); Creatinine Clearance Estimated 58 mL/min (50-200); Creatinine,Serum 0.90 mg/dl (0.52-1.04); Estimated Glomerular Filt Rate 61 ml/min (>60); GFR (African American) 74 ML/MIN (>60); Globulin 2.5 g/dL (1.3-3.2); Glucose 84 mg/dl (74-100); Potassium 4.1 mmoL/L (3.5-5.1); Sodium 144 mmol/L (136-145); Total Protein,Serum 5.5 g/dl (6.3-8.2)
[2025-04-03 10:47] LABS: Magnesium 1.7 mg/dl (1.6-2.3)
[2025-04-03] MEDS: ACETAMINOPHEN 1,000MG/100ML VIAL 1000 MG IV ×2 (10:51→20:49)
--- NOTE | 2025-04-03 10:52 | PC.NURSE ---
paged Dr. Ramos due to a down trend in glucose with the pt being NPO
[2025-04-03 10:54] LABS: POC Glucose,Bedside 88 (70-110)
--- NOTE | 2025-04-03 11:29 | PC.NURSE ---
informed Dr. schuster of pt down trend in glucose. MD gave verbal order to switch maintenance fluids from NS to D5 in 1/2 NS at 75ml/hr. order sheet faxed to pharmacy at this time.
--- NOTE | 2025-04-03 11:41 | PC.NURSE ---
confirmed new fluid compatibility and current ordered antibiotics
[2025-04-03] MEDS: Dex 5% in 0.45% NaCl 1,000 ML 75 ML IV (11:44)
--- NOTE | 2025-04-03 11:44 | PC.NURSE ---
Report received from ELIEZER Prakash. Continuation of care plan.
[2025-04-03] MEDS: SODIUM CHLORIDE IV (12:19)
[2025-04-03] MEDS: FLUCONAZOLE IV (12:19)
[2025-04-03] MEDS: [UNRECOGNIZED DRUG - OTHER] IV (12:19)
[2025-04-03 16:56] LABS: POC Glucose,Bedside 91 (70-110)
--- NOTE | 2025-04-03 20:10 | PC.NURSE ---
Patient is up and walking in the unit at this time, and then going to the bathroom to wash up for the evening.
[2025-04-04] VITALS (18 sets, daily range): BP systolic 131–155; BP diastolic 60–75; PULSE 73–92; RESP 12–21; TEMP 36.1–37; O2SAT 93–97; BMI 24.5
[2025-04-04 00:02] LABS: POC Glucose,Bedside 97 (70-110)
[2025-04-04] MEDS: PIPERCILLIN/TAZO 3.375 GM in 0.9 % SODIUM CHLORIDE 50 ML IV ×4 (00:59→18:47)
[2025-04-04 05:49] LABS: POC Glucose,Bedside 84 (70-110)
[2025-04-04 06:58] LABS: Hematocrit 32.0 % (37.0-47.0); Hemoglobin 10.2 g/dL (12.2-16.2); Immature Granulocytes % 1.9 %; Mean Corpuscular HGB Conc 31.9 g/dL (31.8-35.4); Mean Corpuscular Hemoglobin 29.6 pg (27.0-31.2); Mean Corpuscular Volume 92.8 fl (81-99); Nucleated Red Blood Cells % 0.1 %; Platelet Count 402 K/mm3 (142-424); Red Blood Count 3.45 M/mm3 (4.20-5.40); Red Cell Distribution Width-SD 45.1 fL; White Blood Count 18.6 K/mm3 (4.8-10.8)
[2025-04-04 07:16] LABS: Anion Gap 15.1 mEq/L (5-15); Blood Urea Nitrogen 21 mg/dl (7-17); Calcium 8.2 mg/dl (8.4-10.2); Carbon Dioxide 26 mmol/L (22.0-30.0); Chloride 105 mmol/L (98-107); Creatinine Clearance Estimated 53 mL/min (50-200); Creatinine,Serum 0.80 mg/dl (0.52-1.04); Estimated Glomerular Filt Rate 70 ml/min (>60); GFR (African American) 85 ML/MIN (>60); Glucose 80 mg/dl (74-100); Potassium 3.1 mmoL/L (3.5-5.1); Sodium 143 mmol/L (136-145)
--- NOTE | 2025-04-04 08:00 | FL_ITS ---
PROCEDURE INFORMATION: Exam: FL Upper Gastrointestinal Tract without KUB Exam date and time: 04/04/2025 8:24 AM Age: 74 years old Clinical indication: Abnormal findings; Abnormal wbc; Prior surgery; Surgery date: Post-operative (0-2 days); Surgery type: PT is fluoro today, per Dr murillo. PT presented to [facility] for gallbladder removal. PT presented to [facility] 7[facility]10, severe pain in abdomen felt like [place] erupted in my stomach . Emergency surgery for perforated peptic ulcer, repaired with betty patch, per Dr murillo's statement. White count has been elevated. Dr murillo is concerned for leak near antrum of stomach, duodenum, or gastric obstruction. History of colon cancer 2010, with removal of R ascending colon and PT thinks part of transverse colon; Additional info: S/P betty patch. Dr murillo is concerned for a leak in the abdomen. Performed fluoro with gastrografin 30 ml TECHNIQUE: Imaging protocol: Radiologic examination, gastrointestinal tract, upper with or without delayed images, without KUB. Guided with fluoroscopy. COMPARISON: CT ABD/PEL ORAL CONTRAST ONLY 04/01/2025 5:42 PM RADIATION DOSE METRICS: Fluoroscopy time (seconds): 2 minutes 10 seconds Number of fluoro spot images: 57 Reference air kerma (PILLO): 152.04 mGy FINDINGS: Decorative Engraver: Enteric tube is in place. Surgical drain is seen in the epigastric region. Surgical reinier are seen in the epigastric region. Cholecystectomy clips are seen. Esophagus: Esophagus is not well evaluated. Stomach: The stomach appears grossly within normal limits. No definite leak is seen, though evaluation is limited by lack of cine images in the region of concern in the gastric antrum region. Residual contrast in the colon also somewhat limits evaluation. Intestine: The duodenum is not well opacified. IMPRESSION: No definite leak is seen, though evaluation is limited by lack of cine images in the region of concern in the gastric antrum region. Residual contrast in the colon also somewhat limits evaluation.
[2025-04-04] MEDS: PANTOPRAZOLE 40MG VIAL 40 MG IV ×2 (08:54→21:02)
[2025-04-04] MEDS: DIATRIZOATE MEGLUMINE(GASTROGRAFIN) 66%-10% 120ML 30 ML PO (08:56)
--- NOTE | 2025-04-04 09:20 | PC.NURSE ---
at bedside. Dr. Frazier removed Midline abdominal dressing. states the patient can decide if she would like a dressing placed back over midline incision or if she wants to leave it to air. Patient denies new dressing at this time. Continuation of care plan.
--- NOTE | 2025-04-04 09:58 | EXP.SURG.PN ---
Subjective Narrative: She states that she feels okay . She reports that she did not sleep particularly well last night and is somewhat sore this morning . She was able to ambulate multiple times yesterday. Exam Data for Last 24 hours Vital signs and Labs for Last 24 Hours: Temp Pulse Resp BP Pulse Ox O2 Del Method O2 Flow Rate 98.4 F 79 16 142/67 H 97 Room Air 2 04/04/25 08:00 04/04/25 08:00 04/04/25 08:00 04/04/25 08:00 04/04/25 08:00 04/04/25 09:00 04/02/25 03:00 Laboratory Results - last 24 hr 04/03/25 08:06: Magnesium 1.7 04/03/25 08:56: Sodium 144, Potassium 4.1, Chloride 105, Carbon Dioxide 27, Anion Gap 16.1 H, BUN 25 H, Creatinine 0.90, Estimated Creat Clear 58, Estimated GFR 61, Est GFR ( Amer) 74, Glucose 84, Calcium 9.0, Total Bilirubin 0.5, AST 30, ALT 46 D, Alkaline Phosphatase 221 H, Total Protein 5.5 L, Albumin 3.0 L, Globulin 2.5, Albumin/Globulin Ratio 1.2 04/03/25 10:47: POC Glucose 88 04/03/25 16:46: POC Glucose 91 04/03/25 23:54: POC Glucose 97 04/04/25 05:39: POC Glucose 84 04/04/25 06:23: WBC 18.6 H, RBC 3.45 L, Hgb 10.2 L, Hct 32.0 L, MCV 92.8, MCH 29.6, MCHC 31.9, RDW 13.2, Plt Count 402, MPV 11.1 H, Neut % (Auto) 73.9, Lymph % (Auto) 12.5, [place] % (Auto) 6.0, Eos % (Auto) 5.2, Baso % (Auto) 0.5, Neut # (Auto) 13.7 H, Lymph # (Auto) 2.3, [place] # (Auto) 1.1 H, Eos # (Auto) 1.0 H, Baso # (Auto) 0.1, Sodium 143, Potassium 3.1 L D, Chloride 105, Carbon Dioxide 26, Anion Gap 15.1 H, BUN 21 H, Creatinine 0.80, Estimated Creat Clear 53, Estimated GFR 70, Est GFR ( Amer) 85, Glucose 80, Calcium 8.2 L I & O for Last 24 hours: Intake & Output 04/01/25 04/02/25 04/03/25 04/04/25 11:59 11:59 11:59 11:59 Intake Total 0 / 0 1232 / 1232 50 / 50 Output Total 835 / 835 795 / 795 130 / 130 Balance -835 / -835 437 / 437 -80 / -80 Weight 157 lb 8 oz 165 lb 3.2 oz 153 lb Microbiology Reports for the Last 24 Hours: Microbiology 04/01/25 23:24 Urine,Catheterized Urine Culture - Final No growth. Constitutional Constitutional: no acute distress *Routine Respiratory Exam Respiratory: Absent respiratory distress *Routine Cardiovascular Exam Cardiovascular: Absent tachycardia *Routine Abdominal Exam Comments: Incision clean, dry, and intact. No erythema. Brian-Bartlett drain in place. Minimal output. Progress Note: A&P Assessment and plan (1) Ulcer, gastric, acute, with perforation: Status: Acute Assessment and plan: Overall, doing fairly well status post exploration and Josh patch (postoperative day 2.5). Continue current medical therapy to include proton pump inhibition, Zosyn, and Diflucan Follow-up Gastrografin UGI results Continue nasogastric decompression (pending results of Gastrografin UGI) (2) Leukocytosis: Status: Acute Assessment and plan: Improving leukocytosis on postop day 2.5. She remains afebrile. Continue Zosyn and Diflucan Repeat labs in a.m. (3) Postoperative anemia: Status: Acute Assessment and plan: Stable HGB this AM. No definitive evidence of ongoing blood loss. Repeat labs in a.m.
--- NOTE | 2025-04-04 10:15 | PC.NURSE ---
Primary RN requests page for at this time. Continuation of care plan.
--- NOTE | 2025-04-04 10:56 | PC.NURSE ---
Per , Discontinue the rest of the IV Potassium runs ordered on the MAR, Order D5 0.45% NS with 20 Meq of Potassium at 75ml/hr. states patient can be down graded to Medical Surgical status. Continuation of care plan.
[2025-04-04] MEDS: D5W/0.45% NaCl w/20mEq KCL 1,000 ML 75 ML IV (11:27)
--- NOTE | 2025-04-04 12:43 | EXP.ACUTE.PN ---
Subjective *Date: 04/04/25 *Time: 12:43 Interval history: I saw the patient this morning. She is clinically stable. She went for Gastrograffin study. See Surgery note. K=3.1. Medical Exam Vital signs and Labs for Last 24 Hours: Vital Signs Temp Pulse Pulse Resp BP Pulse Ox O2 Del Method 04/04/25 12:00 92 H 04/04/25 12:00 98.5 F 88 17 152/72 H 95 Room Air 04/04/25 11:00 Room Air 04/04/25 10:00 155/72 H 04/04/25 10:00 82 18 155/72 H 96 Room Air 04/04/25 09:00 Room Air 04/04/25 08:00 79 04/04/25 08:00 97 Room Air 04/04/25 08:00 142/67 H 04/04/25 08:00 98.4 F 79 16 142/67 H 95 04/04/25 07:45 88 21 96 04/04/25 07:42 19 04/04/25 07:15 81 19 95 04/04/25 07:00 78 12 95 04/04/25 06:57 Room Air 04/04/25 06:45 78 18 96 04/04/25 06:30 73 19 95 04/04/25 06:15 83 16 96 04/04/25 06:00 77 15 135/67 95 Room Air 04/04/25 05:00 Room Air 04/04/25 04:00 98.4 F 74 13 131/66 93 L Room Air 04/04/25 04:00 76 04/04/25 03:00 Room Air 04/04/25 02:00 76 95 Room Air 04/04/25 02:00 78 14 132/60 94 L Room Air 04/04/25 01:00 Room Air 04/04/25 00:00 78 04/04/25 00:00 98.0 F 82 13 137/69 93 L Room Air 04/03/25 23:00 Room Air 04/03/25 22:15 80 12 93 L 04/03/25 22:00 82 17 128/60 92 L Room Air 04/03/25 20:59 Room Air 04/03/25 20:00 86 95 Room Air 04/03/25 20:00 84 04/03/25 20:00 98.1 F 94 H 19 152/73 H 94 L Room Air 04/03/25 18:28 Room Air 04/03/25 18:15 87 19 94 L Room Air 04/03/25 18:00 86 17 139/66 94 L Room Air 04/03/25 17:45 83 17 94 L Room Air 04/03/25 17:30 84 16 95 Room Air 04/03/25 17:15 82 18 94 L Room Air 04/03/25 17:00 85 24 94 L Room Air 04/03/25 17:00 Room Air 04/03/25 16:49 84 19 95 Room Air 04/03/25 16:30 85 18 95 Room Air 04/03/25 16:15 85 12 94 L Room Air 04/03/25 16:15 83 04/03/25 16:00 82 14 128/67 95 Room Air 04/03/25 15:45 82 12 94 L Room Air 04/03/25 15:30 81 15 94 L Room Air 04/03/25 15:15 84 19 96 Room Air 04/03/25 15:00 83 14 95 Room Air 04/03/25 15:00 Room Air 04/03/25 14:45 86 17 96 Room Air 04/03/25 14:39 86 21 132/71 96 Room Air 04/03/25 14:30 83 15 95 Room Air 04/03/25 14:15 86 21 95 Room Air 04/03/25 14:00 80 95 Room Air 04/03/25 14:00 83 16 94 L Room Air 04/03/25 13:45 86 17 94 L Room Air 04/03/25 13:30 86 10 L 95 Room Air 04/03/25 13:15 88 17 95 Room Air 04/03/25 13:00 22 04/03/25 13:00 Room Air 04/03/25 12:45 84 16 96 Room Air Intake and Output 04/04/25 04/04/25 04/04/25 03:59 11:59 19:59 Intake Total 50 / 50 Output Total 90 / 220 0 / 0 Balance 50 / -170 -90 / -170 0 / 0 Intake: Intake, Total IV Amount 50 / 50 Pipercillin/Tazo 3.375 gm In 0. 50 / 50 9 % Sodium Chloride 50 ml @ 100 mls/hr IV Q6H [facility] Rx#:[id number] Output: Output, Urine Amount 0 / 0 0 / 0 Output, Gastric Drainage Amount Right Nare Other: Number of Unmeasured Voids 1 1 Number of Bowel Movements 1 1 Weight 153 lb Laboratory Results - last 24 hr 04/03/25 16:46: POC Glucose 91 04/03/25 23:54: POC Glucose 97 04/04/25 05:39: POC Glucose 84 04/04/25 06:23: WBC 18.6 H, RBC 3.45 L, Hgb 10.2 L, Hct 32.0 L, MCV 92.8, MCH 29.6, MCHC 31.9, RDW 13.2, Plt Count 402, MPV 11.1 H, Neut % (Auto) 73.9, Lymph % (Auto) 12.5, [place] % (Auto) 6.0, Eos % (Auto) 5.2, Baso % (Auto) 0.5, Neut # (Auto) 13.7 H, Lymph # (Auto) 2.3, [place] # (Auto) 1.1 H, Eos # (Auto) 1.0 H, Baso # (Auto) 0.1, Sodium 143, Potassium 3.1 L D, Chloride 105, Carbon Dioxide 26, Anion Gap 15.1 H, BUN 21 H, Creatinine 0.80, Estimated Creat Clear 53, Estimated GFR 70, Est GFR ( Amer) 85, Glucose 80, Calcium 8.2 L I & O for Labs for Last 24 Hours: Intake & Output 04/02/25 04/03/25 04/04/25 04/05/25 11:59 11:59 11:59 11:59 Intake Total 0 / 0 1232 / 1232 50 / 50 Output Total 835 / 835 795 / 795 220 / 220 0 / 0 Balance -835 / -835 437 / 437 -170 / -170 0 / 0 Weight 157 lb 8 oz 165 lb 3.2 oz 153 lb Microbiology Reports for the Last 24 Hours: Microbiology 04/01/25 23:24 Urine,Catheterized Urine Culture - Final No growth. Head: Present normocephalic Neck: Present normal inspection Respiratory: Present CTA bilaterally; Absent rales, respiratory distress, rhonchi or wheezes Cardiac: Present Reg Rate and Rhythm GI: Present soft, tenderness (incisional) and other (NG in place) Rectal (female): Present deferred (female): Present deferred Extremities: Present tenderness Skin: Present intact Assessment and Plan *Assessment and plan (1) Perforated gastric ulcer: Status: Acute Category: Medical Code(s): K25.5 - Chronic or unspecified gastric ulcer with perforation (2) Elevated troponin: Status: Acute Category: Medical Code(s): R79.89 - Other specified abnormal findings of blood chemistry (3) Postoperative anemia: Status: Acute Category: Medical Code(s): D64.9 - Anemia, unspecified (4) Leukocytosis: Status: Acute Category: Medical Code(s): D72.829 - Elevated white blood cell count, unspecified (5) Dercums disease: Status: Acute Category: Medical Code(s): E88.2 - Lipomatosis, not elsewhere classified (6) Hypertension: Status: Acute Category: Medical Code(s): I10 - Essential (primary) hypertension (7) History of colon cancer: Status: Acute Category: Medical Code(s): Z85.038 - Personal history of other malignant neoplasm of large intestine (8) Coronary artery calcification seen on CAT scan: Status: Acute Category: Medical Code(s): I25.10 - Atherosclerotic heart disease of [place] coronary artery without angina pectoris (9) Former smoker: Status: Acute Category: Social Hx Code(s): Z87.891 - Personal history of nicotine dependence Plan Awaiting Gastrograffin report. NG in place. Hypokalemia. Has had one run. Will change IV to include potassium. Transfer to medical floor.
[2025-04-04] MEDS: SODIUM CHLORIDE IV (13:09)
[2025-04-04] MEDS: [UNRECOGNIZED DRUG - OTHER] IV (13:09)
[2025-04-04] MEDS: FLUCONAZOLE IV (13:09)
--- NOTE | 2025-04-04 13:49 | PC.NURSE ---
TARA Drain and NG removed. TARA drain tubing intact. NG tubing intact. Patient tolerated well. Continuation of care plan.
--- NOTE | 2025-04-04 14:05 | PC.NURSE ---
Report given to ELIEZER Zuniga.
--- NOTE | 2025-04-04 14:12 | PC.NURSE ---
Patient off unit at this time. Patient transported by staff to Medical Surgical room 207.
--- NOTE | 2025-04-04 14:15 | PC.NURSE ---
Patient off unit at this time. Patient transported by staff to Medical Surgical room 207.
--- NOTE | 2025-04-04 16:21 | PC.NURSE ---
AOX4, NO ACUTE CHANGES SINCE ARRIVAL TO FLOOR. ABD INCISION OPEN TO AIR. DENIED PAIN THUS FAR
[2025-04-04 16:38] LABS: POC Glucose,Bedside 88 (70-110)
[2025-04-04 20:52] LABS: POC Glucose,Bedside 106 (70-110)
[2025-04-05] MEDS: PIPERCILLIN/TAZO 3.375 GM in 0.9 % SODIUM CHLORIDE 50 ML IV ×4 (01:01→18:25)
[2025-04-05] MEDS: D5W/0.45% NaCl w/20mEq KCL 1,000 ML 75 ML IV ×2 (01:02→18:25)
[2025-04-05 04:00] VITALS: BP 134/74; PULSE 81; RESP 15; TEMP 36.8; O2SAT 96; BMI 25.0
--- NOTE | 2025-04-05 05:51 | PC.NURSE ---
patient rested well tonight. new 22g IV [place] in right hand at 19304/04 - RFA inflitrated and removed. ambulated to toilet, but to tired to walk in hallway. midline incision is clean and open to air with no redness or drainage, tenderness to abd. active bowel sounds and loose stools. confirmed with Olaf at [facility] that zoysn can run concurrent with d5/0.45%NSw/20K+
[2025-04-05 06:11] LABS: POC Glucose,Bedside 100 (70-110)
[2025-04-05 08:00] VITALS: BP 145/68; PULSE 80; RESP 16; TEMP 36.7; O2SAT 97
[2025-04-05 08:16] LABS: Hematocrit 30.6 % (37.0-47.0); Hemoglobin 10.0 g/dL (12.2-16.2); Immature Granulocytes % 1.7 %; Mean Corpuscular HGB Conc 32.7 g/dL (31.8-35.4); Mean Corpuscular Hemoglobin 30.1 pg (27.0-31.2); Mean Corpuscular Volume 92.2 fl (81-99); Nucleated Red Blood Cells % 0 %; Platelet Count 424 K/mm3 (142-424); Red Blood Count 3.32 M/mm3 (4.20-5.40); Red Cell Distribution Width-SD 44.4 fL; White Blood Count 17.4 K/mm3 (4.8-10.8)
[2025-04-05 08:18] LABS: Anion Gap 13.0 mEq/L (5-15); Blood Urea Nitrogen 13 mg/dl (7-17); Calcium 8.5 mg/dl (8.4-10.2); Carbon Dioxide 26 mmol/L (22.0-30.0); Chloride 105 mmol/L (98-107); Creatinine Clearance Estimated 54 mL/min (50-200); Creatinine,Serum 0.70 mg/dl (0.52-1.04); Estimated Glomerular Filt Rate 82 ml/min (>60); GFR (African American) 99 ML/MIN (>60); Glucose 103 mg/dl (74-100); Sodium 141 mmol/L (136-145)
--- NOTE | 2025-04-05 08:18 | EXP.PHA.PN ---
Subjective *Date: 04/05/25 *Time: 08:18 Medical Exam Vital signs and Labs for Last 24 Hours: Vital Signs Temp Pulse Pulse Resp BP BP Pulse Ox 04/05/25 06:10 04/05/25 04:53 04/05/25 04:00 98.2 F 81 15 134/74 96 04/05/25 03:00 04/05/25 01:00 04/04/25 23:44 97.0 F L 85 14 136/73 95 04/04/25 23:00 04/04/25 21:00 04/04/25 20:00 04/04/25 20:00 98.2 F 91 H 17 137/75 96 04/04/25 18:06 04/04/25 16:19 04/04/25 16:00 98.6 F 89 16 151/73 H 97 04/04/25 15:00 04/04/25 14:00 93 L 04/04/25 13:00 04/04/25 12:00 92 H 04/04/25 12:00 98.5 F 88 17 152/72 H 95 04/04/25 11:00 04/04/25 10:00 155/72 H 04/04/25 10:00 82 18 155/72 H 96 04/04/25 09:00 O2 Del Method 04/05/25 06:10 Room Air 04/05/25 04:53 Room Air 04/05/25 04:00 04/05/25 03:00 Room Air 04/05/25 01:00 Room Air 04/04/25 23:44 Room Air 04/04/25 23:00 Room Air 04/04/25 21:00 Room Air 04/04/25 20:00 Room Air 04/04/25 20:00 Room Air 04/04/25 18:06 Room Air 04/04/25 16:19 Room Air 04/04/25 16:00 Room Air 04/04/25 15:00 Room Air 04/04/25 14:00 Room Air 04/04/25 13:00 Room Air 04/04/25 12:00 04/04/25 12:00 Room Air 04/04/25 11:00 Room Air 04/04/25 10:00 04/04/25 10:00 Room Air 04/04/25 09:00 Room Air Intake and Output 04/04/25 04/05/25 04/05/25 23:59 07:59 15:59 Intake Total 290 / 340 801 / 801 Output Total 300 / 390 300 / 300 Balance -10 50 501 / 501 Intake: Intake, Oral Amount 240 / 240 Intake, Total IV Amount 50 / 100 751 / 751 D5W/0.45% NaCl w/20mEq KCL 1, 751 / 751 000 ml @ 75 mls/hr IV .[id number] [facility] Rx#:[id number] Pipercillin/Tazo 3.375 gm In 0. 50 / 100 9 % Sodium Chloride 50 ml @ 100 mls/hr IV Q6H [facility] Rx#:[id number] Infusion Intake 50 / 50 Pipercillin/Tazo 3.375 gm In 0. 50 / 50 9 % Sodium Chloride 50 ml @ 100 mls/hr IV Q6H [facility] Rx#:[id number] Output: Output, Urine Amount 300 / 300 300 / 300 Other: Number of Unmeasured Voids 1 0 Number of Bowel Movements 1 Weight 70.505 kg Patient Weight 04/05/25 23:59 Weight 70.505 kg Laboratory Results - last 24 hr 04/04/25 16:27: POC Glucose 88 04/04/25 20:45: POC Glucose 106 04/05/25 06:03: POC Glucose 100 04/05/25 07:44: WBC 17.4 H, RBC 3.32 L, Hgb 10.0 L, Hct 30.6 L, MCV 92.2, MCH 30.1, MCHC 32.7, RDW 13.1, Plt Count 424, MPV 10.9 H, Neut % (Auto) 73.0, Lymph % (Auto) 14.3, [place] % (Auto) 6.3, Eos % (Auto) 4.1, Baso % (Auto) 0.6, Neut # (Auto) 12.7 H, Lymph # (Auto) 2.5, [place] # (Auto) 1.1 H, Eos # (Auto) 0.7 H, Baso # (Auto) 0.1 I & O for Labs for Last 24 Hours: Intake & Output 04/02/25 04/03/25 04/04/25 04/05/25 23:59 23:59 23:59 23:59 Intake Total 132 / 862 1100 / 1150 340 / 340 801 / 801 Output Total 1295 / 1495 465 / 465 390 / 390 300 / 300 Balance -1163 / -633 635 / 685 -50 / -50 501 / 501 Weight 71.441 kg 74.933 kg 69.4 kg 70.505 kg Microbiology Reports for the Last 24 Hours: Microbiology 04/01/25 23:24 Urine,Catheterized Urine Culture - Final No growth. The patient's infection will respond to the chosen ABx?: Yes Is the patient receiving the right drug, dose, and route?: Yes Could a more targeted ABx be ordered?: No (WBC DECREASED SLIGHTLY, NO GROWTH IN URINE CX.)
[2025-04-05 08:24] LABS: Potassium 3.0 mmoL/L (3.5-5.1)
--- NOTE | 2025-04-05 08:30 | P.PN_ITS ---
Subjective *Date: 04/05/25 *Time: 08:30 Interval history: Patient feels she is doing well. She has been up and about. She is trying clear liquids this morning. She states her bowels have moved. She is voiding QS. She denies chest pain and shortness of breath. She does not have a cough. Potassium noted to be 3 this morning. 2+ Gastrografin study completed 04/04/2025 showed no definite leak. Evaluation limited by lack of sun images in the region of concern in the gastric atrium r egion residual contrast in the colon also somewhat limits evaluation. Exam Data for Last 24 hours Vital signs and Labs for Last 24 Hours: Temp Pulse Resp BP Pulse Ox O2 Del Method O2 Flow Rate 98.2 F 81 15 134/74 96 Room Air 2 04/05/25 04:00 04/05/25 04:00 04/05/25 04:00 04/05/25 04:00 04/05/25 04:00 04/05/25 06:10 04/02/25 03:00 Laboratory Results - last 24 hr 04/04/25 16:27: POC Glucose 88 04/04/25 20:45: POC Glucose 106 04/05/25 06:03: POC Glucose 100 04/05/25 07:44: WBC 17.4 H, RBC 3.32 L, Hgb 10.0 L, Hct 30.6 L, MCV 92.2, MCH 30.1, MCHC 32.7, RDW 13.1, Plt Count 424, MPV 10.9 H, Neut % (Auto) 73.0, Lymph % (Auto) 14.3, [place] % (Auto) 6.3, Eos % (Auto) 4.1, Baso % (Auto) 0.6, Neut # (Auto) 12.7 H, Lymph # (Auto) 2.5, [place] # (Auto) 1.1 H, Eos # (Auto) 0.7 H, Baso # (Auto) 0.1, Sodium 141, Potassium 3.0 L, Chloride 105, Carbon Dioxide 26, Anion Gap 13.0, BUN 13 D, Creatinine 0.70, Estimated Creat Clear 54, Estimated GFR 82, Est GFR ( Amer) 99, Glucose 103 H, Calcium 8.5 I & O for Last 24 hours: Intake & Output 07/08/1704/03/25 04/04/25 04/05/25 11:59 11:59 11:59 11:59 Intake Total 0 / 0 1232 / 1232 50 / 50 1091 / 1091 Output Total 835 / 835 795 / 795 220 / 220 600 / 600 Balance -835 / -835 437 / 437 -170 / -170 491 / 491 Weight 157 lb 8 oz 165 lb 3.2 oz 153 lb 155 lb 7 oz Microbiology Reports for the Last 24 Hours: Microbiology 04/01/25 23:24 Urine,Catheterized Urine Culture - Final No growth. Constitutional Constitutional: no acute distress Comments: Sitting up in the bed eating her breakfast. *Routine Respiratory Exam Respiratory: Present CTA bilaterally (Anteriorly and posteriorly) *Routine Cardiovascular Exam Cardiovascular: Present RRR *Routine Abdominal Exam Abdominal: Present soft, normoactive bowel sounds and tenderness (Postoperative) Comments: Surgical wound with clips clean dry and intact *Routine Extremities Exam Extremities: Present edema (2+ bilateral) *Routine Neurological Exam Neurological: Present alert and oriented X3 Assessment and Plan *Assessment and plan (1) Perforated gastric ulcer: Status: Acute Category: Medical Code(s): K25.5 - Chronic or unspecified gastric ulcer with perforation (2) Elevated troponin: Status: Acute Category: Medical Code(s): R79.89 - Other specified abnormal findings of blood chemistry (3) Postoperative anemia: Status: Acute Category: Medical Code(s): D64.9 - Anemia, unspecified (4) Leukocytosis: Status: Acute Category: Medical Code(s): D72.829 - Elevated white blood cell count, unspecified (5) Dercums disease: Status: Acute Category: Medical Code(s): E88.2 - Lipomatosis, not elsewhere classified (6) Hypertension: Status: Acute Category: Medical Code(s): I10 - Essential (primary) hypertension (7) History of colon cancer: Status: Acute Category: Medical Code(s): Z85.038 - Personal history of other malignant neoplasm of large intestine (8) Coronary artery calcification seen on CAT scan: Status: Acute Category: Medical Code(s): I25.10 - Atherosclerotic heart disease of [place] coronary artery without angina pectoris (9) Former smoker: Status: Acute Category: Social Hx Code(s): Z87.891 - Personal history of nicotine dependence Plan Surgery to follow. Continue current care. Will give 2 rounds of potassium.
--- NOTE | 2025-04-05 08:43 | EXP.SURG.PN ---
Subjective Narrative: Patient without significant complaints. She had her nasogastric tube and TARA drain removed yesterday. Tolerating clear liquids. She is somewhat cautious with clear liquids as she is worried about the patch. She has moved her bowels. She is concerned about her weakness once she is able to be discharged home. Exam Data for Last 24 hours Vital signs and Labs for Last 24 Hours: Temp Pulse Resp BP Pulse Ox O2 Del Method O2 Flow Rate 98.2 F 81 15 134/74 96 Room Air 2 04/05/25 04:00 04/05/25 04:00 04/05/25 04:00 04/05/25 04:00 04/05/25 04:00 04/05/25 06:10 04/02/25 03:00 Laboratory Results - last 24 hr 04/04/25 16:27: POC Glucose 88 04/04/25 20:45: POC Glucose 106 04/05/25 06:03: POC Glucose 100 04/05/25 07:44: WBC 17.4 H, RBC 3.32 L, Hgb 10.0 L, Hct 30.6 L, MCV 92.2, MCH 30.1, MCHC 32.7, RDW 13.1, Plt Count 424, MPV 10.9 H, Neut % (Auto) 73.0, Lymph % (Auto) 14.3, [place] % (Auto) 6.3, Eos % (Auto) 4.1, Baso % (Auto) 0.6, Neut # (Auto) 12.7 H, Lymph # (Auto) 2.5, [place] # (Auto) 1.1 H, Eos # (Auto) 0.7 H, Baso # (Auto) 0.1, Sodium 141, Potassium 3.0 L, Chloride 105, Carbon Dioxide 26, Anion Gap 13.0, BUN 13 D, Creatinine 0.70, Estimated Creat Clear 54, Estimated GFR 82, Est GFR ( Amer) 99, Glucose 103 H, Calcium 8.5 I & O for Last 24 hours: Intake & Output 04/02/25 04/03/25 04/04/25 04/05/25 11:59 11:59 11:59 11:59 Intake Total 0 / 0 1232 / 1232 50 / 50 1091 / 1091 Output Total 835 / 835 795 / 795 220 / 220 600 / 600 Balance -835 / -835 437 / 437 -170 / -170 491 / 491 Weight 157 lb 8 oz 165 lb 3.2 oz 153 lb 155 lb 7 oz Microbiology Reports for the Last 24 Hours: Microbiology 04/01/25 23:24 Urine,Catheterized Urine Culture - Final No growth. *Routine Abdominal Exam Abdominal: Present soft Progress Note: A&P Assessment and plan (1) Ulcer, gastric, acute, with perforation: Status: Acute (2) Leukocytosis: Status: Acute (3) Generalized abdominal pain: Status: Acute (4) Hypertension: Status: Acute (5) Hyperlipidemia: Status: Acute Assessment and Plan Assessment and Plan for All Diagnoses:: Still with leukocytosis although improving. Hemoglobin stable. Potassium 3.0. Primary service is replacing. Continue antibiotics and antifungal. Continue proton pump inhibitors. Advance to full liquids later today.
--- NOTE | 2025-04-05 09:30 | SW/DCPLANNER ---
Addendum entered by Christi Gray 04/08/25 13:06: Spoke with patient regarding home health services and patient stated that she is doing well and that she believes she does not need home health services when she goes home. Patient stated that she thinks if she does need it then she will end up just doing out patient therapy. Humberto Simmons Original Note: Spoke with paitent once she is medically stable and ready for discharge if she would be interested in home health services. Patient stated that she would like to wait till its time for her being discharged. I told patient that i will wait and come back when she is fixing to get discharged. Humberto Simmons
[2025-04-05] MEDS: SODIUM CHLORIDE 0.9% 10ML VIAL 10 ML IV ×2 (09:39→20:47)
[2025-04-05] MEDS: PANTOPRAZOLE 40MG VIAL 40 MG IV ×2 (09:39→20:47)
[2025-04-05] MEDS: FLUCONAZOLE 200 MG/5 ML PO (09:40)
[2025-04-05 11:21] LABS: POC Glucose,Bedside 110 (70-110)
[2025-04-05] MEDS: ACETAMINOPHEN 1,000MG/100ML VIAL 1000 MG IV ×2 (11:26→22:09)
[2025-04-05 12:00] VITALS: BP 137/72; PULSE 78; RESP 17; TEMP 37.1; O2SAT 97
[2025-04-05 14:35] VITALS: BMI 25.0
[2025-04-05 16:00] VITALS: BP 129/71; PULSE 74; RESP 16; TEMP 36.6; O2SAT 96
--- NOTE | 2025-04-05 17:25 | PC.NURSE ---
Pt is A&Ox4. Vital signs stable tolerating room air. IV abx and fluids infusing per NOV. Potassium replaced today per NOV. PRN tylenol infused today per pt request for pain. Pt ambulated in the hallway today w/ stand by assistance. Abdominal incision c/d/i. Pt tolerating clear liquids. Pt resting comfortably with no further needs voiced at this time. Call light within reach
[2025-04-05 20:00] VITALS: BP 135/70; PULSE 70; PULSE 74; RESP 16; TEMP 36.8; O2SAT 97
--- NOTE | 2025-04-05 22:34 | PC.NURSE ---
patient c/o generalized pain 11/30, administered IV Tylenol per NOV. reported watery. liquid stools again tonight - held Docusate per patient request.
[2025-04-06] VITALS (7 sets, daily range): BP systolic 130–141; BP diastolic 70–76; PULSE 65–90; RESP 14–18; TEMP 36.4–37.1; O2SAT 92–98; BMI 25.4
[2025-04-06] MEDS: D5W/0.45% NaCl w/20mEq KCL 1,000 ML 75 ML IV ×2 (00:22→18:29)
[2025-04-06] MEDS: PIPERCILLIN/TAZO 3.375 GM in 0.9 % SODIUM CHLORIDE 50 ML IV ×4 (00:22→18:29)
[2025-04-06 06:07] LABS: POC Glucose,Bedside 93 (70-110)
--- NOTE | 2025-04-06 07:39 | EXP.SURG.PN ---
Subjective Narrative: Patient without significant complaints. She states that she is hungry and the clear liquids has made her stomach [place]. No nausea or bloating. Moving her bowels. Labs pending Exam Data for Last 24 hours Vital signs and Labs for Last 24 Hours: Temp Pulse Resp BP Pulse Ox O2 Del Method O2 Flow Rate 97.6 F 71 14 130/70 97 Room Air 2 04/06/25 04:00 04/06/25 04:00 04/06/25 04:00 04/06/25 04:00 04/06/25 04:00 04/06/25 06:47 04/02/25 03:00 Laboratory Results - last 24 hr 04/05/25 07:44: WBC 17.4 H, RBC 3.32 L, Hgb 10.0 L, Hct 30.6 L, MCV 92.2, MCH 30.1, MCHC 32.7, RDW 13.1, Plt Count 424, MPV 10.9 H, Neut % (Auto) 73.0, Lymph % (Auto) 14.3, [place] % (Auto) 6.3, Eos % (Auto) 4.1, Baso % (Auto) 0.6, Neut # (Auto) 12.7 H, Lymph # (Auto) 2.5, [place] # (Auto) 1.1 H, Eos # (Auto) 0.7 H, Baso # (Auto) 0.1, Sodium 141, Potassium 3.0 L, Chloride 105, Carbon Dioxide 26, Anion Gap 13.0, BUN 13 D, Creatinine 0.70, Estimated Creat Clear 54, Estimated GFR 82, Est GFR ( Amer) 99, Glucose 103 H, Calcium 8.5 04/05/25 11:15: POC Glucose 110 04/06/25 06:01: POC Glucose 93 I & O for Last 24 hours: Intake & Output 04/03/25 04/04/25 04/05/25 04/06/25 11:59 11:59 11:59 11:59 Intake Total 1232 / 1232 50 / 50 1531 / 1531 910 / 910 Output Total 795 / 795 220 / 220 600 / 600 0 / 0 Balance 437 / 437 -170 / -170 931 / 931 910 / 910 Weight 165 lb 3.2 oz 153 lb 155 lb 7 oz 158 lb 6 oz *Routine Abdominal Exam Abdominal: Present soft Comments: Incision clean and intact. Progress Note: A&P Assessment and plan (1) Ulcer, gastric, acute, with perforation: Status: Acute Assessment and plan: Advance diet. Possible discharge soon on oral PPI. (2) Leukocytosis: Status: Acute (3) Generalized abdominal pain: Status: Acute (4) Hypertension: Status: Acute (5) Hyperlipidemia: Status: Acute
[2025-04-06 08:07] LABS: Alanine Aminotransferase 20 U/L (12-78); Albumin Level 3.0 g/dl (3.5-5.0); Albumin/Globulin Ratio 1.0 (1.1-1.8); Alkaline Phosphatase 188 U/L (38-126); Anion Gap 15.8 mEq/L (5-15); Aspartate Amino Transferase 21 U/L (14-36); Bilirubin,Total 0.5 mg/dl (0.2-1.3); Blood Urea Nitrogen 7 mg/dl (7-17); Calcium 8.4 mg/dl (8.4-10.2); Carbon Dioxide 25 mmol/L (22.0-30.0); Chloride 105 mmol/L (98-107); Creatinine Clearance Estimated 55 mL/min (50-200); Creatinine,Serum 0.60 mg/dl (0.52-1.04); Estimated Glomerular Filt Rate 97 ml/min (>60); GFR (African American) 118 ML/MIN (>60); Globulin 2.9 g/dL (1.3-3.2); Glucose 114 mg/dl (74-100); Sodium 143 mmol/L (136-145); Total Protein,Serum 5.9 g/dl (6.3-8.2)
[2025-04-06 08:09] LABS: Potassium 2.8 mmoL/L (3.5-5.1)
--- NOTE | 2025-04-06 08:48 | EXP.PN ---
Subjective *Date: 04/06/25 *Time: 09:12 Interval history: Patient has been doing well with ambulation. She actually walked in the hallway several times. She is been on clear liquids and tolerated and will receive full liquids as per the surgeon. She was able to sleep a little during the night. She denies chest pain and shortness of breath. She is voiding QS without difficulty White blood cell count has decreased to 17,400. Potassium is actually lower today at 2.8. Renal function is good. Sodium 143. Exam Data for Last 24 hours Vital signs and Labs for Last 24 Hours: Temp Pulse Resp BP Pulse Ox O2 Del Method O2 Flow Rate 97.6 F 71 14 130/70 97 Room Air 2 04/06/25 04:00 04/06/25 04:00 04/06/25 04:00 04/06/25 04:00 04/06/25 04:00 04/06/25 06:47 04/02/25 03:00 Laboratory Results - last 24 hr 04/05/25 11:15: POC Glucose 110 04/06/25 06:01: POC Glucose 93 04/06/25 07:47: Sodium 143, Potassium 2.8 L*, Chloride 105, Carbon Dioxide 25, Anion Gap 15.8 H, BUN 7 D, Creatinine 0.60, Estimated Creat Clear 55, Estimated GFR 97, Est GFR ( Amer) 118, Glucose 114 H, Calcium 8.4, Total Bilirubin 0.5, AST 21 D, ALT 20 D, Alkaline Phosphatase 188 H, Total Protein 5.9 L, Albumin 3.0 L, Globulin 2.9, Albumin/Globulin Ratio 1.0 L I & O for Last 24 hours: Intake & Output 04/03/25 04/04/25 04/05/25 04/06/25 11:59 11:59 11:59 11:59 Intake Total 1232 / 1232 50 / 50 1531 / 1531 1270 / 1270 Output Total 795 / 795 220 / 220 600 / 600 0 / 0 Balance 437 / 437 -170 / -170 931 / 931 1270 / 1270 Weight 165 lb 3.2 oz 153 lb 155 lb 7 oz 158 lb 6 oz Constitutional Constitutional: no acute distress Comments: Sitting up in the bed and appears comfortable *Routine Respiratory Exam Respiratory: Present CTA bilaterally (Anteriorly and posteriorly) *Routine Cardiovascular Exam Cardiovascular: Present RRR *Routine Abdominal Exam Abdominal: Present soft, normoactive bowel sounds and tenderness (Postoperative tenderness) *Routine Extremities Exam Extremities: Present edema and pulses intact; Absent calf tenderness *Routine Neurological Exam Neurological: Present alert and oriented X3 Assessment and Plan *Assessment and plan (1) Perforated gastric ulcer: Status: Acute Category: Medical Code(s): K25.5 - Chronic or unspecified gastric ulcer with perforation (2) Elevated troponin: Status: Acute Category: Medical Code(s): R79.89 - Other specified abnormal findings of blood chemistry (3) Postoperative anemia: Status: Acute Category: Medical Code(s): D64.9 - Anemia, unspecified (4) Leukocytosis: Status: Acute Category: Medical Code(s): D72.829 - Elevated white blood cell count, unspecified (5) Dercums disease: Status: Acute Category: Medical Code(s): E88.2 - Lipomatosis, not elsewhere classified (6) Hypertension: Status: Acute Category: Medical Code(s): I10 - Essential (primary) hypertension (7) History of colon cancer: Status: Acute Category: Medical Code(s): Z85.038 - Personal history of other malignant neoplasm of large intestine (8) Coronary artery calcification seen on CAT scan: Status: Acute Category: Medical Code(s): I25.10 - Atherosclerotic heart disease of [place] coronary artery without angina pectoris (9) Former smoker: Status: Acute Category: Social Hx Code(s): Z87.891 - Personal history of nicotine dependence (10) Hypokalemia: Status: Acute Category: Medical Code(s): E87.6 - Hypokalemia Plan Will give additional rounds of IV potassium today. Continue with postoperative care as per surgeon.
[2025-04-06 09:15] LABS: Hematocrit 32.8 % (37.0-47.0); Hemoglobin 10.8 g/dL (12.2-16.2); Immature Granulocytes % 2.1 %; Mean Corpuscular HGB Conc 32.9 g/dL (31.8-35.4); Mean Corpuscular Hemoglobin 30.5 pg (27.0-31.2); Mean Corpuscular Volume 92.7 fl (81-99); Nucleated Red Blood Cells % 0 %; Platelet Count 435 K/mm3 (142-424); Red Blood Count 3.54 M/mm3 (4.20-5.40); Red Cell Distribution Width-SD 44.9 fL; White Blood Count 16.7 K/mm3 (4.8-10.8)
[2025-04-06] MEDS: PANTOPRAZOLE 40MG VIAL 40 MG IV ×2 (09:19→20:47)
[2025-04-06] MEDS: SODIUM CHLORIDE 0.9% 10ML VIAL 10 ML IV ×2 (09:19→20:47)
[2025-04-06] MEDS: FLUCONAZOLE 200 MG/5 ML PO (09:19)
[2025-04-06 11:11] LABS: POC Glucose,Bedside 94 (70-110)
[2025-04-06 12:31] LABS: POC Glucose,Bedside 94 (70-110)
[2025-04-06 12:35] LABS: POC Glucose,Bedside 98 (70-110)
[2025-04-06 12:38] LABS: POC Glucose,Bedside 76 (70-110)
[2025-04-06] MEDS: POTASSIUM CHLORIDE 20MEQ TAB 20 MEQ PO (13:56)
[2025-04-06 16:08] LABS: POC Glucose,Bedside 98 (70-110)
--- NOTE | 2025-04-06 16:45 | PC.NURSE ---
Pt is A&Ox4. Vital signs stable tolerating room air. IV abx and fluids infusing per NOV. Pt potassium this AM was 2.8. Potassium replaced per orders. No complaints of pain. Surgical dressings/incisions c/d/i. Pt ambulated multiple times in the hallway with assistance. Pt sat up in chair this afternoon. Pt resting comfortably in bed with no further needs voiced at this time. Call light within reach
[2025-04-06 17:03] LABS: Hematocrit 32.0 % (37.0-47.0); Hemoglobin 10.6 g/dL (12.2-16.2); Mean Corpuscular HGB Conc 33.1 g/dL (31.8-35.4); Mean Corpuscular Hemoglobin 30.2 pg (27.0-31.2); Mean Corpuscular Volume 91.2 fl (81-99); Platelet Count 454 K/mm3 (142-424); Red Blood Count 3.51 M/mm3 (4.20-5.40); White Blood Count 17.8 K/mm3 (4.8-10.8)
[2025-04-06 18:22] LABS: Anisocytosis 1+; Macrocytosis 1+; Poikilocytosis 1+; Target Cells 1+; Total Cells Counted 100
[2025-04-06 18:23] LABS: Basophilic Stippling 1+
[2025-04-06 18:24] LABS: Giant Platelets 1+
[2025-04-06] MEDS: ACETAMINOPHEN 1,000MG/100ML VIAL 1000 MG IV (21:05)
[2025-04-06 21:56] LABS: POC Glucose,Bedside 90 (70-110)
[2025-04-07] VITALS (7 sets, daily range): BP systolic 122–153; BP diastolic 67–76; PULSE 70–90; RESP 14–18; TEMP 36.6–36.9; O2SAT 96–98; BMI 26.1
[2025-04-07] MEDS: PIPERCILLIN/TAZO 3.375 GM in 0.9 % SODIUM CHLORIDE 50 ML IV ×4 (01:29→18:02)
[2025-04-07] MEDS: D5W/0.45% NaCl w/20mEq KCL 1,000 ML 75 ML IV ×3 (01:32→11:06)
--- NOTE | 2025-04-07 04:24 | PC.NURSE ---
Pt. is alert and orientated x 4. Pt. on room air. Pt. has low abdominal Midline surgical incision with statples intact. Pt. having minimal pain only requested Tylenol for pain., medicated as per NOV. Pt. able to get out of the bed with minimal assistance and ambulate to bathroom. Pt. moving better throughout the shift. Denies nausea, vomiting. Pt. has slept well this shift. Pt. on full liquid diet tolerating well. Personal items and call garg in reach.
[2025-04-07 06:45] LABS: Hematocrit 29.8 % (37.0-47.0); Hemoglobin 9.8 g/dL (12.2-16.2); Mean Corpuscular HGB Conc 32.9 g/dL (31.8-35.4); Mean Corpuscular Hemoglobin 29.9 pg (27.0-31.2); Mean Corpuscular Volume 90.9 fl (81-99); Platelet Count 434 K/mm3 (142-424); Red Blood Count 3.28 M/mm3 (4.20-5.40); White Blood Count 15.3 K/mm3 (4.8-10.8)
[2025-04-07 06:55] LABS: Anion Gap 13.6 mEq/L (5-15); Blood Urea Nitrogen 3 mg/dl (7-17); Calcium 8.4 mg/dl (8.4-10.2); Carbon Dioxide 23 mmol/L (22.0-30.0); Chloride 107 mmol/L (98-107); Creatinine Clearance Estimated 57 mL/min (50-200); Creatinine,Serum 0.70 mg/dl (0.52-1.04); Estimated Glomerular Filt Rate 82 ml/min (>60); GFR (African American) 99 ML/MIN (>60); Glucose 105 mg/dl (74-100); Potassium 3.6 mmoL/L (3.5-5.1); Sodium 140 mmol/L (136-145)
[2025-04-07 07:57] LABS: Total Cells Counted 100
[2025-04-07 07:59] LABS: RBC Morphology Normal
[2025-04-07] MEDS: POTASSIUM CHLORIDE 20MEQ TAB 20 MEQ PO (08:12)
[2025-04-07] MEDS: FLUCONAZOLE 200 MG/5 ML PO (08:12)
[2025-04-07] MEDS: PANTOPRAZOLE 40MG VIAL 40 MG IV ×2 (08:12→20:23)
[2025-04-07] MEDS: SODIUM CHLORIDE 0.9% 10ML VIAL 10 ML IV ×2 (08:12→20:23)
[2025-04-07 08:20] LABS: POC Glucose,Bedside 97 (70-110)
[2025-04-07 08:22] LABS: POC Glucose,Bedside 104 (70-110)
--- NOTE | 2025-04-07 08:25 | EXP.SURG.PN ---
Subjective Patient reports: feels better and tolerating liquids well Exam Data for Last 24 hours Vital signs and Labs for Last 24 Hours: Temp Pulse Resp BP Pulse Ox O2 Del Method O2 Flow Rate 97.9 F 70 14 153/76 H 97 Room Air 2 04/07/25 03:45 04/07/25 04:00 04/07/25 03:45 04/07/25 03:45 04/07/25 03:45 04/07/25 07:00 04/02/25 03:00 Laboratory Results - last 24 hr 04/03/25 05:34: POC Glucose 104 04/04/25 10:59: POC Glucose 76 04/05/25 16:04: POC Glucose 98 04/05/25 20:42: POC Glucose 94 04/06/25 07:47: WBC 16.7 H, RBC 3.54 L, Hgb 10.8 L, Hct 32.8 L, MCV 92.7, MCH 30.5, MCHC 32.9, RDW 13.1, Plt Count 435 H, MPV 11.2 H, Neut % (Auto) 70.8, Lymph % (Auto) 15.3, [place] % (Auto) 5.6, Eos % (Auto) 5.4, Baso % (Auto) 0.8, Neut # (Auto) 11.8 H, Lymph # (Auto) 2.6, [place] # (Auto) 0.9, Eos # (Auto) 0.9 H, Baso # (Auto) 0.1 04/06/25 10:57: POC Glucose 94 04/06/25 16:02: POC Glucose 98 04/06/25 16:54: WBC 17.8 H, RBC 3.51 L, Hgb 10.6 L, Hct 32.0 L, MCV 91.2, MCH 30.2, MCHC 33.1, RDW 13.2, Plt Count 454 H, MPV 10.7 H, Neut % (Auto) 70.6, Lymph % (Auto) 16.3, [place] % (Auto) 6.0, Eos % (Auto) 4.4, Baso % (Auto) 0.5, Neut # (Auto) 12.6 H, Lymph # (Auto) 2.9, [place] # (Auto) 1.1 H, Eos # (Auto) 0.8 H, Baso # (Auto) 0.1, Total Counted 100, Neutrophils % (Manual) 57, Band Neutrophils % 13.0 H, Lymphocytes % (Manual) 17, Monocytes % (Manual) 4, Eosinophils % (Manual) 7 H, Basophils % (Manual) 2.0 H, Platelet Estimate Slight inc, Giant Platelets 1+, Poikilocytosis 1+, Basophilic Stippling 1+, Anisocytosis 1+, Macrocytosis 1+, Target Cells 1+ 04/06/25 20:57: POC Glucose 90 04/07/25 06:00: WBC 15.3 H, RBC 3.28 L, Hgb 9.8 L, Hct 29.8 L, MCV 90.9, MCH 29.9, MCHC 32.9, RDW 13.2, Plt Count 434 H, MPV 11.1 H, Neut % (Auto) 67.0, Lymph % (Auto) 17.5, [place] % (Auto) 6.3, Eos % (Auto) 6.1, Baso % (Auto) 0.8, Neut # (Auto) 10.2 H, Lymph # (Auto) 2.7, [place] # (Auto) 1.0, Eos # (Auto) 0.9 H, Baso # (Auto) 0.1, Total Counted 100, Neutrophils % (Manual) 72, Lymphocytes % (Manual) 16, Monocytes % (Manual) 3, Eosinophils % (Manual) 6 H, Basophils % (Manual) 1.0, Myelocytes % 2 H, Platelet Estimate Slight increase, RBC Morphology Normal, Sodium 140, Potassium 3.6 D, Chloride 107, Carbon Dioxide 23, Anion Gap 13.6, BUN 3 L D, Creatinine 0.70, Estimated Creat Clear 57, Estimated GFR 82, Est GFR ( Amer) 99, Glucose 105 H, Calcium 8.4 04/07/25 06:24: POC Glucose 97 I & O for Last 24 hours: Intake & Output 04/04/25 04/05/25 04/06/25 04/07/25 11:59 11:59 11:59 11:59 Intake Total 50 / 50 1531 / 1531 1270 / 1270 140 / 140 Output Total 220 / 220 600 / 600 250 / 250 600 / 600 Balance -170 / -170 931 / 931 1020 / 1020 -460 / -460 Weight 153 lb 155 lb 7 oz 158 lb 6 oz 162 lb 6.987 oz *Routine Abdominal Exam Abdominal: Present soft Comments: Incision clean and intact. Progress Note: A&P Assessment and plan (1) Perforated gastric ulcer: Status: Acute Assessment and plan: Overall, doing well postoperative day 5.5 status post exploration and prepyloric Josh patch. Stable from surgical standpoint for discharge home with close outpatient follow-up Soft diet ordered One half of reinier to be removed Continue proton pump inhibition indefinitely Complete course of Augmentin (prescription sent) Continue to hold diclofenac (2) Leukocytosis: Status: Acute Assessment and plan: Improving leukocytosis on postop day 5.5. She remains afebrile. Complete course of antibiotics (Augmentin) at discharge?prescription sent (3) Hypokalemia: Status: Acute Assessment and plan: Potassium replaced yesterday as per primary service. Potassium 3.6 today
--- NOTE | 2025-04-07 09:16 | P.PN_ITS ---
Subjective *Date: 04/07/25 *Time: 09:53 Interval history: Patient is feeling better today. Her diet is being advanced by surgery. She slept well. Medical Exam Vital signs and Labs for Last 24 Hours: Vital Signs Temp Pulse Pulse Resp BP Pulse Ox O2 Del Method 04/07/25 07:00 Room Air 04/07/25 05:00 Room Air 04/07/25 04:00 70 04/07/25 03:45 97.9 F 73 14 153/76 H 97 Room Air 04/07/25 03:00 Room Air 04/07/25 01:00 Room Air 04/07/25 00:00 75 04/07/25 00:00 98.2 F 73 16 122/71 96 Room Air 04/06/25 23:00 Room Air 04/06/25 21:00 Room Air 04/06/25 20:00 16 97 Room Air 04/06/25 20:00 90 04/06/25 19:34 98.4 F 87 15 137/75 97 Room Air 04/06/25 18:56 Room Air 04/06/25 17:00 Room Air 04/06/25 16:00 98.3 F 88 18 141/70 H 97 Room Air 04/06/25 16:00 80 04/06/25 15:00 Room Air 04/06/25 13:00 Room Air 04/06/25 12:00 80 04/06/25 12:00 98.2 F 79 14 138/76 92 L Room Air 04/06/25 11:00 Room Air Intake and Output 04/06/25 04/07/25 04/07/25 19:59 03:59 11:59 Intake Total 140 / 140 Output Total 350 / 700 0 / 700 350 / 700 Balance -210 / -560 0 / -560 -350 / -560 Intake: Intake, Oral Amount 140 / 140 Output: Output, Urine Amount 350 / 700 0 / 700 350 / 700 Other: Number of Voids 1 Number of Unmeasured Voids 0 1 1 Number of Bowel Movements 1 1 1 Weight 162 lb 6.987 oz Patient Weight 04/07/25 11:59 Weight 162 lb 6.987 oz Laboratory Results - last 24 hr 04/03/25 05:34: POC Glucose 104 04/04/25 10:59: POC Glucose 76 04/05/25 16:04: POC Glucose 98 04/05/25 20:42: POC Glucose 94 04/06/25 07:47: WBC 16.7 H, RBC 3.54 L, Hgb 10.8 L, Hct 32.8 L, MCV 92.7, MCH 30.5, MCHC 32.9, RDW 13.1, Plt Count 435 H, MPV 11.2 H, Neut % (Auto) 70.8, Lymph % (Auto) 15.3, [place] % (Auto) 5.6, Eos % (Auto) 5.4, Baso % (Auto) 0.8, Neut # (Auto) 11.8 H, Lymph # (Auto) 2.6, [place] # (Auto) 0.9, Eos # (Auto) 0.9 H, Baso # (Auto) 0.1 04/06/25 10:57: POC Glucose 94 04/06/25 16:02: POC Glucose 98 04/06/25 16:54: WBC 17.8 H, RBC 3.51 L, Hgb 10.6 L, Hct 32.0 L, MCV 91.2, MCH 30.2, MCHC 33.1, RDW 13.2, Plt Count 454 H, MPV 10.7 H, Neut % (Auto) 70.6, Lymph % (Auto) 16.3, [place] % (Auto) 6.0, Eos % (Auto) 4.4, Baso % (Auto) 0.5, Neut # (Auto) 12.6 H, Lymph # (Auto) 2.9, [place] # (Auto) 1.1 H, Eos # (Auto) 0.8 H, Baso # (Auto) 0.1, Total Counted 100, Neutrophils % (Manual) 57, Band Neutrophils % 13.0 H, Lymphocytes % (Manual) 17, Monocytes % (Manual) 4, Eosinophils % (Manual) 7 H, Basophils % (Manual) 2.0 H, Platelet Estimate Slight inc, Giant Platelets 1+, Poikilocytosis 1+, Basophilic Stippling 1+, Anisocytosis 1+, Macrocytosis 1+, Target Cells 1+ 04/06/25 20:57: POC Glucose 90 04/07/25 06:00: WBC 15.3 H, RBC 3.28 L, Hgb 9.8 L, Hct 29.8 L, MCV 90.9, MCH 29.9, MCHC 32.9, RDW 13.2, Plt Count 434 H, MPV 11.1 H, Neut % (Auto) 67.0, Lymph % (Auto) 17.5, [place] % (Auto) 6.3, Eos % (Auto) 6.1, Baso % (Auto) 0.8, Neut # (Auto) 10.2 H, Lymph # (Auto) 2.7, [place] # (Auto) 1.0, Eos # (Auto) 0.9 H, Baso # (Auto) 0.1, Total Counted 100, Neutrophils % (Manual) 72, Lymphocytes % (Manual) 16, Monocytes % (Manual) 3, Eosinophils % (Manual) 6 H, Basophils % (Manual) 1.0, Myelocytes % 2 H, Platelet Estimate Slight increase, RBC Morphology Normal, Sodium 140, Potassium 3.6 D, Chloride 107, Carbon Dioxide 23, Anion Gap 13.6, BUN 3 L D, Creatinine 0.70, Estimated Creat Clear 57, Estimated GFR 82, Est GFR ( Amer) 99, Glucose 105 H, Calcium 8.4 04/07/25 06:24: POC Glucose 97 I & O for Labs for Last 24 Hours: Intake & Output 04/04/25 04/05/25 04/06/25 04/07/25 11:59 11:59 11:59 11:59 Intake Total 50 / 50 1531 / 1531 1270 / 1270 140 / 140 Output Total 220 / 220 600 / 600 250 / 250 700 / 700 Balance -170 / -170 931 / 931 1020 / 1020 -560 / -560 Weight 153 lb 155 lb 7 oz 158 lb 6 oz 162 lb 6.987 oz Head: Present normocephalic Neck: Present normal inspection Respiratory: Present CTA bilaterally; Absent rales, respiratory distress, rhonchi or wheezes Cardiac: Present Reg Rate and Rhythm GI: Present soft and tenderness (incisional) Extremities: Absent edema Skin: Present intact Assessment and Plan *Assessment and plan (1) Perforated gastric ulcer: Status: Acute Category: Medical Code(s): K25.5 - Chronic or unspecified gastric ulcer with perforation (2) Elevated troponin: Status: Acute Category: Medical Code(s): R79.89 - Other specified abnormal findings of blood chemistry (3) Postoperative anemia: Status: Acute Category: Medical Code(s): D64.9 - Anemia, unspecified (4) Leukocytosis: Status: Acute Category: Medical Code(s): D72.829 - Elevated white blood cell count, unspecified (5) Dercums disease: Status: Acute Category: Medical Code(s): E88.2 - Lipomatosis, not elsewhere classified (6) Hypertension: Status: Acute Category: Medical Code(s): I10 - Essential (primary) hypertension (7) History of colon cancer: Status: Inactive Category: Medical Code(s): Z85.038 - Personal history of other malignant neoplasm of large intestine (8) Coronary artery calcification seen on CAT scan: Status: Acute Category: Medical Code(s): I25.10 - Atherosclerotic heart disease of [place] coronary artery without angina pectoris (9) Former smoker: Status: Acute Category: Social Hx Code(s): Z87.891 - Personal history of nicotine dependence (10) Hypokalemia: Status: Acute Category: Medical Code(s): E87.6 - Hypokalemia Plan Potassium is normal today. Will advance diet. Home soon.
[2025-04-07 11:46] LABS: POC Glucose,Bedside 98 (70-110)
--- NOTE | 2025-04-07 12:29 | PC.NURSE ---
half of the reinier removed from pt's incision per Dr. Frazier's order with steri-strips place now with scrap charger at bedside. pt tolerated well. incision site c/d/i.
[2025-04-07 16:14] LABS: POC Glucose,Bedside 94 (70-110)
--- NOTE | 2025-04-07 16:54 | PC.NURSE ---
Pt is A&Ox4. Vital signs stable tolerating room air. IV abx infused. Midline surgical incision with reinier and steri strips c/d/i. Pt has tolerated a soft diet today. Pt has ambulated multiple times in the hallway and her room. Pt has sat up in the chair this afternoon. Pt resting comfortably in bed with no further needs voiced at this time. Call light within reach.
[2025-04-07] MEDS: DOCUSATE SODIUM 10 ML/UDC UDC PO (20:23)
[2025-04-07 21:35] LABS: POC Glucose,Bedside 83 (70-110)
[2025-04-08] VITALS: BP 140/75; PULSE 82; RESP 16; TEMP 36.6; O2SAT 95
[2025-04-08] MEDS: PIPERCILLIN/TAZO 3.375 GM in 0.9 % SODIUM CHLORIDE 50 ML IV (01:18)
[2025-04-08 04:00] VITALS: BP 135/73; PULSE 75; RESP 18; TEMP 36.6; O2SAT 96; BMI 26.7
--- NOTE | 2025-04-08 04:15 | PC.NURSE ---
Pt. is alert and orientated x 4. Pt. on room air. Pt. has been getting up to ambulate to the bathroom and around room. Pt. states that she is moving better. Pt. has a low abdominal surgical incision with reinier and steri-strips in place. Incsion and steri-strips clean, dry, intact. Pt. getting IV antibiotics. Pt. taking small amount of soft diet. states she was was not hungry at dinner time. she was still full from lunch. Pt. c/o minimal pain. No pain meds given this shift. Pt. sleeping well. Personal items and call garg in reach.
[2025-04-08 05:57] LABS: POC Glucose,Bedside 89 (70-110)
[2025-04-08 06:10] LABS: Hematocrit 31.6 % (37.0-47.0); Hemoglobin 10.5 g/dL (12.2-16.2); Immature Granulocytes % 1.7 %; Mean Corpuscular HGB Conc 33.2 g/dL (31.8-35.4); Mean Corpuscular Hemoglobin 30.5 pg (27.0-31.2); Mean Corpuscular Volume 91.9 fl (81-99); Nucleated Red Blood Cells % 0 %; Platelet Count 450 K/mm3 (142-424); Red Blood Count 3.44 M/mm3 (4.20-5.40); Red Cell Distribution Width-SD 44.0 fL; White Blood Count 16.9 K/mm3 (4.8-10.8)
--- NOTE | 2025-04-08 06:58 | PC.NURSE ---
Pt. had an 0700 dose of Zosyn IV. the dose was started and the patients IV went bad. the dose was stopped and the IV was discontinued
[2025-04-08 08:00] VITALS: BP 125/66; PULSE 83; RESP 16; TEMP 36.9; O2SAT 96
--- NOTE | 2025-04-08 08:44 | P.PN_ITS ---
Subjective *Date: 04/08/25 *Time: 10:14 Interval history: Patient is feeling better this am. She has tolerated her diet and is able to move around the room. She is anxious to go home. Medical Exam Vital signs and Labs for Last 24 Hours: Vital Signs Temp Pulse Pulse Resp BP Pulse Ox O2 Del Method 04/08/25 07:00 Room Air 04/08/25 05:00 Room Air 04/08/25 04:00 97.9 F 75 18 135/73 96 Room Air 04/08/25 03:00 Room Air 04/08/25 01:00 Room Air 04/08/25 00:00 98 F 82 16 140/75 95 Room Air 04/07/25 23:00 Room Air 04/07/25 21:00 Room Air 04/07/25 20:00 18 96 Room Air 04/07/25 20:00 98.3 F 85 17 139/74 96 Room Air 04/07/25 18:41 Room Air 04/07/25 17:00 Room Air 04/07/25 16:00 90 04/07/25 16:00 98.4 F 82 16 133/67 97 Room Air 04/07/25 15:00 Room Air 04/07/25 13:00 Room Air 04/07/25 12:00 80 04/07/25 12:00 98.4 F 80 16 141/74 H 98 Room Air 04/07/25 11:00 Room Air 04/07/25 09:00 Room Air Intake and Output 04/07/25 04/08/25 04/08/25 19:59 03:59 11:59 Intake Total 360 / 410 50 / 410 Output Total 300 / 1000 0 / 1000 700 / 1000 Balance 60 / -590 50 / -590 -700 / -590 Intake: Intake, Oral Amount 360 / 360 Intake, Total IV Amount 50 / 50 Pipercillin/Tazo 3.375 gm In 0. 50 / 50 9 % Sodium Chloride 50 ml @ 100 mls/hr IV Q6H [facility] Rx#:[id number] Output: Output, Urine Amount 300 / 1000 0 / 1000 700 / 1000 Other: Number of Unmeasured Voids 1 1 Number of Bowel Movements 1 Weight 166 lb 6.4 oz Patient Weight 04/08/25 11:59 Weight 166 lb 6.4 oz Laboratory Results - last 24 hr 04/07/25 11:05: POC Glucose 98 04/07/25 16:06: POC Glucose 94 04/07/25 20:36: POC Glucose 83 04/08/25 05:34: WBC 16.9 H, RBC 3.44 L, Hgb 10.5 L, Hct 31.6 L, MCV 91.9, MCH 30.5, MCHC 33.2, RDW 13.2, Plt Count 450 H, MPV 11.0 H, Neut % (Auto) 67.7, Lymph % (Auto) 17.7, [place] % (Auto) 5.6, Eos % (Auto) 6.6, Baso % (Auto) 0.7, Neut # (Auto) 11.4 H, Lymph # (Auto) 3.0, [place] # (Auto) 0.9, Eos # (Auto) 1.1 H, Baso # (Auto) 0.1, POC Glucose 89 I & O for Labs for Last 24 Hours: Intake & Output 04/05/25 04/06/25 04/07/25 04/08/25 11:59 11:59 11:59 11:59 Intake Total 1531 / 1531 1270 / 1270 380 / 380 410 / 410 Output Total 600 / 600 250 / 250 700 / 700 1000 / 1000 Balance 931 / 931 1020 / 1020 -320 / -320 -590 / -590 Weight 155 lb 7 oz 158 lb 6 oz 162 lb 6.987 oz 166 lb 6.4 oz Head: Present normocephalic Neck: Present normal inspection Respiratory: Present CTA bilaterally; Absent rales, respiratory distress, rhonchi or wheezes Cardiac: Present Reg Rate and Rhythm GI: Present soft and tenderness (incisional) Extremities: Absent edema Skin: Present intact Assessment and Plan *Assessment and plan (1) Perforated gastric ulcer: Status: Acute Category: Medical Code(s): K25.5 - Chronic or unspecified gastric ulcer with perforation (2) Elevated troponin: Status: Acute Category: Medical Code(s): R79.89 - Other specified abnormal findings of blood chemistry (3) Postoperative anemia: Status: Acute Category: Medical Code(s): D64.9 - Anemia, unspecified (4) Leukocytosis: Status: Acute Category: Medical Code(s): D72.829 - Elevated white blood cell count, unspecified (5) Dercums disease: Status: Acute Category: Medical Code(s): E88.2 - Lipomatosis, not elsewhere classified (6) Hypertension: Status: Acute Category: Medical Code(s): I10 - Essential (primary) hypertension (7) History of colon cancer: Status: Inactive Category: Medical Code(s): Z85.038 - Personal history of other malignant neoplasm of large intestine (8) Coronary artery calcification seen on CAT scan: Status: Acute Category: Medical Code(s): I25.10 - Atherosclerotic heart disease of [place] coronary artery without angina pectoris (9) Former smoker: Status: Acute Category: Social Hx Code(s): Z87.891 - Personal history of nicotine dependence (10) Hypokalemia: Status: Acute Category: Medical Code(s): E87.6 - Hypokalemia Plan WBC is still elevated. Surgery has plans to send her home on continued oral abx and will see her next Saturday. Will discuss discharge with Dr. Angeles.
[2025-04-08] MEDS: POTASSIUM CHLORIDE 20MEQ TAB 20 MEQ PO (08:53)
[2025-04-08] MEDS: DOCUSATE SODIUM 10 ML/UDC UDC PO (08:53)
[2025-04-08] MEDS: PANTOPRAZOLE 40MG VIAL 40 MG IV (08:53)
[2025-04-08] MEDS: FLUCONAZOLE 200 MG/5 ML PO (08:53)
--- NOTE | 2025-04-08 09:30 | P.PN_ITS ---
Subjective Patient reports: no new complaints and feels better Exam Data for Last 24 hours Vital signs and Labs for Last 24 Hours: Temp Pulse Resp BP Pulse Ox O2 Del Method O2 Flow Rate 98.4 F 83 16 125/66 96 Room Air 2 04/08/25 08:00 04/08/25 08:00 04/08/25 08:00 04/08/25 08:00 04/08/25 08:00 04/08/25 09:00 04/02/25 03:00 Laboratory Results - last 24 hr 04/07/25 11:05: POC Glucose 98 04/07/25 16:06: POC Glucose 94 04/07/25 20:36: POC Glucose 83 04/08/25 05:34: WBC 16.9 H, RBC 3.44 L, Hgb 10.5 L, Hct 31.6 L, MCV 91.9, MCH 30.5, MCHC 33.2, RDW 13.2, Plt Count 450 H, MPV 11.0 H, Neut % (Auto) 67.7, Lymph % (Auto) 17.7, [place] % (Auto) 5.6, Eos % (Auto) 6.6, Baso % (Auto) 0.7, Neut # (Auto) 11.4 H, Lymph # (Auto) 3.0, [place] # (Auto) 0.9, Eos # (Auto) 1.1 H, Baso # (Auto) 0.1, POC Glucose 89 I & O for Last 24 hours: Intake & Output 04/05/25 04/06/25 04/07/25 04/08/25 11:59 11:59 11:59 11:59 Intake Total 1531 / 1531 1270 / 1270 380 / 380 770 / 770 Output Total 600 / 600 250 / 250 700 / 700 1000 / 1000 Balance 931 / 931 1020 / 1020 -320 / -320 -230 / -230 Weight 155 lb 7 oz 158 lb 6 oz 162 lb 6.987 oz 166 lb 6.4 oz *Routine Abdominal Exam Abdominal: Present soft and surgical scars Progress Note: A&P Assessment and plan (1) Perforated gastric ulcer: Status: Acute Assessment and plan: Okay for discharge home with continuation of oral proton pump inhibitors and several days of oral antibiotics. Refrain from NSAIDs of diclofenac. Follow-up in 5 days. (2) Elevated troponin: Status: Acute (3) Postoperative anemia: Status: Acute (4) Leukocytosis: Status: Acute (5) Dercums disease: Status: Acute (6) Hypertension: Status: Acute (7) History of colon cancer: Status: Inactive (8) Coronary artery calcification seen on CAT scan: Status: Acute (9) Former smoker: Status: Acute (10) Hypokalemia: Status: Acute
[2025-04-08 10:00] LABS: POC Glucose,Bedside 117 (70-110)
--- NOTE | 2025-04-08 10:34 | XR_ITS ---
FINAL REPORT CLINICAL HISTORY: Elevated WBC, decreased BS right base FINDINGS: Right basilar density is seen which may represent [place] or less likely atelectasis. Left lung is clear. Small right pleural effusion is noted. Trace left pleural effusion seen. The mediastinum has a normal appearance. The cardiac silhouette is unremarkable. IMPRESSION: Bibasilar densities greater on the right with pleural effusions. Right basilar pneumonia suspected. Authenticated and ERN
[2025-04-08 12:00] VITALS: BP 130/72; PULSE 92; RESP 16; TEMP 36.7; O2SAT 96
[2025-04-08 15:57] LABS: POC Glucose,Bedside 88 (70-110)
--- NOTE | 2025-04-09 10:22 | SW/DCPLANNER ---
Spoke with patient on the phone. Patient stated that she is doing good. Patient stated that it feels good to be home. Patient stated that she is aware of her upcoming appointments. Patient stated that she done the meds to bed and was able to get her new medicine before she was discharged. Patient stated that she has no concerns or questions at this time. Humberto Simmons
--- NOTE | 2025-04-12 11:49 | EXP.DC.SUM ---
General Admission date:: 04/01/25 Discharge date: 04/08/25 HPI HPI HPI: Ms. Holly is a 74-year-old female presents ER with complaint of shortness of breath. Patient has a past medical history of hypertension, hyperlipidemia, diastolic dysfunction, colon cancers s/p colectomy. Patient had a cholecystectomy 03/25/2025. Patient states about 1130 this morning she had abdominal pain across the middle of her abdomen. She states it felt like a samurai sword was trying to cut her in half . Patient is status post ex lap today for perforated gastric ulcer. Patient denies fever/chills, cough, congestion, runny nose, dyspnea, chest pain, nausea, vomiting, diarrhea, constipation, headache, lightheadedness, dizziness, or syncope. Hospital Course Hospital Course Hospital Course: Hospital Course Hospital Course Hospital Course: With Evaluation in the emergency room CT of the abdomin/pelvis revealed a perforated gastric ulcer with significant bowel wall thickening of the gastric atrium with at least 2 large ulcers. She was taken to surgery for exploratory lap with repair of the prepyloric gastric ulcer Utilizing a Josh patch/ Dr. Patino. She tolerated the surgery well. Patient's pain was controlled with Tylenol. She was able to ambulate on postoperative day #1; Initially she continue with an NG tube and Zosyn with normal saline at 75 an hour. She had hypokalemia and required several doses of IV and PO potassium. She did have an elevated troponin which was felt due to demand ischemia. She was seen by cardiology and noted to have prior outpatient cardiac workup from a skill training program coordinator in [place] on a yearly basis. She was noted not to be a candidate for DAPT therapy in the setting of the perforated gastric ulcer. Patient continued with an elevated white blood cell count. She had normal postoperative abdominal discomfort. Her hemoglobin remained stable. Gastrografin study was negative. NG tube was removed and she tolerated clear and then full liquid diets. And on 04/08 due to elevated white blood cell she had a chest x-ray which suggested right lower lobe pneumonia versus atelectasis; she did not have any respiratory symptoms. On this date she was felt stable to be discharged home; she was to continue with antibiotics of Augmentin and her PPI plus her regular home medicines. Please see reconciliation list. She was to follow-up with Dr. Patino 04/15/2025 and with [facility] on 04/12/2025. Questionnaires [place] Link: Launch [place] Website Exam Data for Last 24 hours Vital signs and Labs for Last 24 Hours: Temp Pulse Resp BP Pulse Ox O2 Del Method O2 Flow Rate 98.1 F 92 H 16 130/72 96 Room Air 2 04/08/25 12:00 04/08/25 12:00 04/08/25 12:00 04/08/25 12:00 04/08/25 12:00 04/08/25 12:38 04/02/25 03:00 I & O for Last 24 hours: Intake & Output 04/09/25 04/10/25 04/11/25 04/12/25 11:59 11:59 11:59 11:59 Intake Total 240 / 240 Output Total Balance 239 / 239 Narrative: 04/08/2025 [facility] physical exam Head: Present normocephalic Neck: Present normal inspection Respiratory: Present CTA bilaterally; Absent rales, respiratory distress, rhonchi or wheezes Cardiac: Present Reg Rate and Rhythm GI: Present soft and tenderness (incisional) Extremities: Absent edema Skin: Present intact Results Data Completed and Pending Completed studies during hospitalization [Text1]: 04/08/2025 CXR: FINDINGS: Right basilar density is seen which may represent Monia or less likely atelectasis. Left lung is clear. Small right pleural effusion is noted. Trace left pleural effusion seen. The mediastinum has a normal appearance. The cardiac silhouette is unremarkable. IMPRESSION: Bibasilar densities greater on the right with pleural effusions. Right basilar pneumonia suspected. ECHO 04/02/2025 Conclusion Normal biventricular systolic function. No significant valvular stenosis or regurgitation. 04/07/25 11:05: POC Glucose 98 04/07/25 16:06: POC Glucose 94 04/07/25 20:36: POC Glucose 83 04/08/25 05:34: WBC 16.9 H, RBC 3.44 L, Hgb 10.5 L, Hct 31.6 L, MCV 91.9, MCH 30.5, MCHC 33.2, RDW 13.2, Plt Count 450 H, MPV 11.0 H, Neut % (Auto) 67.7, Lymph % (Auto) 17.7, Conway % (Auto) 5.6, Eos % (Auto) 6.6, Baso % (Auto) 0.7, Neut # (Auto) 11.4 H, Lymph # (Auto) 3.0, [place] # (Auto) 0.9, Eos # (Auto) 1.1 H, Baso # (Auto) 0.1, POC Glucose 89 04/03/25 05:34: POC Glucose 104 04/04/25 10:59: POC Glucose 76 04/05/25 16:04: POC Glucose 98 04/05/25 20:42: POC Glucose 94 04/06/25 07:47: WBC 16.7 H, RBC 3.54 L, Hgb 10.8 L, Hct 32.8 L, MCV 92.7, MCH 30.5, MCHC 32.9, RDW 13.1, Plt Count 435 H, MPV 11.2 H, Neut % (Auto) 70.8, Lymph % (Auto) 15.3, Conway % (Auto) 5.6, Eos % (Auto) 5.4, Baso % (Auto) 0.8, Neut # (Auto) 11.8 H, Lymph # (Auto) 2.6, [place] # (Auto) 0.9, Eos # (Auto) 0.9 H, Baso # (Auto) 0.1 04/06/25 10:57: POC Glucose 94 04/06/25 16:02: POC Glucose 98 04/06/25 16:54: WBC 17.8 H, RBC 3.51 L, Hgb 10.6 L, Hct 32.0 L, MCV 91.2, MCH 30.2, MCHC 33.1, RDW 13.2, Plt Count 454 H, MPV 10.7 H, Neut % (Auto) 70.6, Lymph % (Auto) 16.3, Conway % (Auto) 6.0, Eos % (Auto) 4.4, Baso % (Auto) 0.5, Neut # (Auto) 12.6 H, Lymph # (Auto) 2.9, Conway # (Auto) 1.1 H, Eos # (Auto) 0.8 H, Baso # (Auto) 0.1, Total Counted 100, Neutrophils % (Manual) 57, Band Neutrophils % 13.0 H, Lymphocytes % (Manual) 17, Monocytes % (Manual) 4, Eosinophils % (Manual) 7 H, Basophils % (Manual) 2.0 H, Platelet Estimate Slight inc, Giant Platelets 1+, Poikilocytosis 1+, Basophilic Stippling 1+, Anisocytosis 1+, Macrocytosis 1+, Target Cells 1+ 04/06/25 20:57: POC Glucose 90 04/07/25 06:00: WBC 15.3 H, RBC 3.28 L, Hgb 9.8 L, Hct 29.8 L, MCV 90.9, MCH 29.9, MCHC 32.9, RDW 13.2, Plt Count 434 H, MPV 11.1 H, Neut % (Auto) 67.0, Lymph % (Auto) 17.5, Conway % (Auto) 6.3, Eos % (Auto) 6.1, Baso % (Auto) 0.8, Neut # (Auto) 10.2 H, Lymph # (Auto) 2.7, Conway # (Auto) 1.0, Eos # (Auto) 0.9 H, Baso # (Auto) 0.1, Total Counted 100, Neutrophils % (Manual) 72, Lymphocytes % (Manual) 16, Monocytes % (Manual) 3, Eosinophils % (Manual) 6 H, Basophils % (Manual) 1.0, Myelocytes % 2 H, Platelet Estimate Slight increase, RBC Morphology Normal, Sodium 140, Potassium 3.6 D, Chloride 107, Carbon Dioxide 23, Anion Gap 13.6, BUN 3 L D, Creatinine 0.70, Estimated Creat Clear 57, Estimated GFR 82, Est GFR ( Amer) 99, Glucose 105 H, Calcium 8.4 04/07/25 06:24: POC Glucose 97 DS: Diagnosis Discharge Diagnosis (1) Perforated gastric ulcer: Status: Resolved Code(s): K25.5 - Chronic or unspecified gastric ulcer with perforation (2) Elevated troponin: Status: Resolved Code(s): R79.89 - Other specified abnormal findings of blood chemistry (3) Postoperative anemia: Status: Acute Code(s): D64.9 - Anemia, unspecified (4) Leukocytosis: Status: Acute Code(s): D72.829 - Elevated white blood cell count, unspecified (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 - Lipomatosis, not elsewhere classified (6) Hypertension: Status: Acute Code(s): I10 - Essential (primary) hypertension (7) History of colon cancer: Status: Inactive Code(s): Z85.038 - Personal history of other malignant neoplasm of large intestine (8) Coronary artery calcification seen on CAT scan: Status: Inactive Code(s): I25.10 - Atherosclerotic heart disease of [place] coronary artery without angina pectoris (9) Former smoker: Status: Inactive Code(s): Z87.891 - Personal history of nicotine dependence (10) Hypokalemia: Status: Resolved Code(s): E87.6 - Hypokalemia Meds Home Medications and Allergies Home Medications ?Medication ?Instructions ?Recorded ?Confirmed ?Type losartan 50 mg tablet 25 mg PO DAILY 03/19/24 04/02/25 History potassium chloride 10 mEq 10 meq PO BID 03/19/24 04/02/25 History tablet,extended release rosuvastatin 10 mg tablet 10 mg PO MOWEFR 03/19/24 04/02/25 History triamterene 37.5 1 tab PO DAILY 03/19/24 04/02/25 History mg-hydrochlorothiazide 25 mg tablet aspirin 81 mg tablet,delayed 81 mg PO DAILY 11/18/24 04/01/25 History release dutasteride 0.5 mg capsule 0.5 mg PO DAILY 04/02/25 04/02/25 History amoxicillin 500 mg-potassium 1 tab PO TID #15 tabs 04/07/25 Rx clavulanate 125 mg tablet (Augmentin) pantoprazole 40 mg tablet,delayed 40 mg PO HS 90 days #90 tabs 04/07/25 Rx release New Prescriptions to Start Prescriptions: amoxicillin-pot clavulanate [Augmentin] Humberto Frazier pantoprazole Humberto Frazier Allergies Allergy/AdvReac Type Severity Reaction Status Date / Time nickel Allergy Rash Verified 03/31/25 14:46 lysol Allergy Intermediate Swelling Uncoded 03/31/25 14:46 of Lip/Tongue/Throat Discharge Plan Disposition Patient Disposition: Home, Self-Care Condition: Good Discharge Order Discharge Orders: Discharge Order (Routine); Ordered 04/08/25 Ordered By: Shelby Angeles Follow up Plan Follow up with: Janak Patino MD [Staff Physician, General Surgery] - 04/15/25 1:30 pm Paz Saleem APRN [Nurse Practitioner, Medical] - 04/12/25 10:30 am Prescriptions/Medication Reconciliation: New amoxicillin-pot clavulanate [Augmentin] 500-125 mg tablet 1 tab PO TID Qty: 15 0RF pantoprazole 40 mg tablet,delayed release (DR/EC) 40 mg PO HS 90 Days Qty: 90 3RF Continued aspirin 81 mg tablet,delayed release (DR/EC) 81 mg PO DAILY losartan 50 mg tablet 25 mg PO DAILY Patient Comments: TAKE 1/2 (ONE-HALF) TABLET BY MOUTH ONCE DAILY potassium chloride 10 mEq tablet extended release 10 meq PO BID Patient Comments: TAKE 1 TABLET BY MOUTH TWICE DAILY triamterene-hydrochlorothiazid 37.5-25 mg tablet 1 tab PO DAILY Patient Comments: TAKE 1 TABLET BY MOUTH ONCE DAILY rosuvastatin 10 mg tablet 10 mg PO Patient Comments: TAKE 1 TABLET BY MOUTH ON SATURDAY, SATURDAY AND SATURDAY dutasteride 0.5 mg capsule 0.5 mg PO DAILY Discontinued diclofenac sodium 100 mg tablet extended release 24 hr 100 mg PO DAILY Patient Comments: TAKE 1 BY MOUTH ONCE DAILY NEEDED FOR 90 DAYS minoxidil 2.5 mg tablet 1.25 mg PO DAILY Patient Comments: TAKE 1/2 (ONE-HALF) TABLET BY MOUTH ONCE DAILY Problem Reconciliation Problems Reviewed?: Yes Patient Discharge Instructions ACTIVITY: Ambulate as tolerated and No heavy lifting DIET: advance to your usual diet Patient Instructions: DI for Exploratory Laparotomy, DI for Surgical Site Infection, Stop Light Infection Print Language: Lao Providers Primary Care Provider: Shelby Angeles Admit Provider: Efrain Kelley Attending Provider: Shelby Angeles
--- NOTE | 2025-04-12 12:10 | EXP.DC.SUM ---
General Admission date:: 04/01/25 Discharge date: 04/08/25 HPI HPI HPI: Ms. Holly is a 74-year-old female presents ER with complaint of shortness of breath. Patient has a past medical history of hypertension, hyperlipidemia, diastolic dysfunction, colon cancers s/p colectomy. Patient had a cholecystectomy 03/25/2025. Patient states about 1130 this morning she had abdominal pain across the middle of her abdomen. She states it felt like a samurai sword was trying to cut her in half . Patient is status post ex lap today for perforated gastric ulcer. Patient denies fever/chills, cough, congestion, runny nose, dyspnea, chest pain, nausea, vomiting, diarrhea, constipation, headache, lightheadedness, dizziness, or syncope. Hospital Course Hospital Course Hospital Course: With Evaluation in the emergency room CT of the abdomin/pelvis revealed a perforated gastric ulcer with significant bowel wall thickening of the gastric atrium with at least 2 large ulcers. She was taken to surgery for exploratory lap with repair of the prepyloric gastric ulcer Utilizing a Josh patch/ Dr. Patino. She tolerated the surgery well. Patient's pain was controlled with Tylenol. She was able to ambulate on postoperative day #1; Initially she continue with an NG tube and Zosyn with normal saline at 75 an hour. She had hypokalemia and required several doses of IV and PO potassium. She did have an elevated troponin which was felt due to demand ischemia. She was seen by cardiology and noted to have prior outpatient cardiac workup from a mobile solutions architect in [place] on a yearly basis. She was noted not to be a candidate for DAPT therapy in the setting of the perforated gastric ulcer. Patient continued with an elevated white blood cell count. She had normal postoperative abdominal discomfort. Her hemoglobin remained stable. Gastrografin study was negative. NG tube was removed and she tolerated clear and then full liquid diets. And on 04/08 due to elevated white blood cell she had a chest x-ray which suggested right lower lobe pneumonia versus atelectasis; she did not have any respiratory symptoms. On this date she was felt stable to be discharged home; she was to continue with antibiotics of Augmentin and her PPI plus her regular home medicines. Please see reconciliation list. She was to follow-up with Dr. Patino 04/15/2025 and with [facility] on 04/12/2025. Exam Data for Last 24 hours Vital signs and Labs for Last 24 Hours: Temp Pulse Resp BP Pulse Ox O2 Del Method O2 Flow Rate 98.1 F 92 H 16 130/72 96 Room Air 2 04/08/25 12:00 04/08/25 12:00 04/08/25 12:00 04/08/25 12:00 04/08/25 12:00 04/08/25 12:38 04/02/25 03:00 DS: Diagnosis Discharge Diagnosis (1) Perforated gastric ulcer: Status: Resolved Code(s): K25.5 - Chronic or unspecified gastric ulcer with perforation (2) Elevated troponin: Status: Resolved Code(s): R79.89 - Other specified abnormal findings of blood chemistry (3) Postoperative anemia: Status: Acute Code(s): D64.9 - Anemia, unspecified (4) Leukocytosis: Status: Acute Code(s): D72.829 - Elevated white blood cell count, unspecified (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 - Lipomatosis, not elsewhere classified (6) Hypertension: Status: Acute Code(s): I10 - Essential (primary) hypertension (7) Hypokalemia: Status: Resolved Code(s): E87.6 - Hypokalemia Meds Home Medications and Allergies Home Medications ?Medication ?Instructions ?Recorded ?Confirmed ?Type losartan 50 mg tablet 25 mg PO DAILY 03/19/24 04/02/25 History potassium chloride 10 mEq 10 meq PO BID 03/19/24 04/02/25 History tablet,extended release rosuvastatin 10 mg tablet 10 mg PO MOWEFR 03/19/24 04/02/25 History triamterene 37.5 1 tab PO DAILY 03/19/24 04/02/25 History mg-hydrochlorothiazide 25 mg tablet aspirin 81 mg tablet,delayed 81 mg PO DAILY 11/18/24 04/01/25 History release dutasteride 0.5 mg capsule 0.5 mg PO DAILY 04/02/25 04/02/25 History amoxicillin 500 mg-potassium 1 tab PO TID #15 tabs 04/07/25 Rx clavulanate 125 mg tablet (Augmentin) pantoprazole 40 mg tablet,delayed 40 mg PO HS 90 days #90 tabs 04/07/25 Rx release New Prescriptions to Start Prescriptions: amoxicillin-pot clavulanate [Augmentin] Humberto Frazier pantoprazole Humberto Frazier Allergies Allergy/AdvReac Type Severity Reaction Status Date / Time nickel Allergy Rash Verified 03/31/25 14:46 lysol Allergy Intermediate Swelling Uncoded 03/31/25 14:46 of Lip/Tongue/Throat Discharge Plan Disposition Patient Disposition: Home, Self-Care Condition: Good Discharge Order Discharge Orders: Discharge Order (Routine); Ordered 04/08/25 Ordered By: Shelby Angeles Follow up Plan Follow up with: Janak Patino MD [Staff Physician, General Surgery] - 04/15/25 1:30 pm Paz Saleem APRN [Nurse Practitioner, Medical] - 04/12/25 10:30 am Prescriptions/Medication Reconciliation: New amoxicillin-pot clavulanate [Augmentin] 500-125 mg tablet 1 tab PO TID Qty: 15 0RF pantoprazole 40 mg tablet,delayed release (DR/EC) 40 mg PO HS 90 Days Qty: 90 3RF Continued aspirin 81 mg tablet,delayed release (DR/EC) 81 mg PO DAILY losartan 50 mg tablet 25 mg PO DAILY Patient Comments: TAKE 1/2 (ONE-HALF) TABLET BY MOUTH ONCE DAILY potassium chloride 10 mEq tablet extended release 10 meq PO BID Patient Comments: TAKE 1 TABLET BY MOUTH TWICE DAILY triamterene-hydrochlorothiazid 37.5-25 mg tablet 1 tab PO DAILY Patient Comments: TAKE 1 TABLET BY MOUTH ONCE DAILY rosuvastatin 10 mg tablet 10 mg PO Patient Comments: TAKE 1 TABLET BY MOUTH ON SATURDAY, SATURDAY AND SATURDAY dutasteride 0.5 mg capsule 0.5 mg PO DAILY Discontinued diclofenac sodium 100 mg tablet extended release 24 hr 100 mg PO DAILY Patient Comments: TAKE 1 BY MOUTH ONCE DAILY NEEDED FOR 90 DAYS minoxidil 2.5 mg tablet 1.25 mg PO DAILY Patient Comments: TAKE 1/2 (ONE-HALF) TABLET BY MOUTH ONCE DAILY Problem Reconciliation Problems Reviewed?: Yes Patient Discharge Instructions ACTIVITY: Ambulate as tolerated and No heavy lifting DIET: advance to your usual diet Patient Instructions: DI for Exploratory Laparotomy, DI for Surgical Site Infection, Stop Light Infection Print Language: Spanish Providers Primary Care Provider: Shelyb Angeles Admit Provider: Efrain Kelley Attending Provider: Shelby Angeles
== END 2025-04-08 17:58 | disposition home or self-care (01) | DRG 326 ==
LOC: ER 13:47 → SDC 19:05 → ICU 21:47 → 2ND 04-04 13:26
PROVIDERS: Nurse Practitioner Family; Surgery; Admitting Provider Student in an Organized Health Care Education/Training Program; Emergency Provider Student in an Organized Health Care Education/Training Program; PCP Family Medicine; Visit Provider Family Medicine
PROC: 0DQ60ZZ Repair Stomach, Open Approach (ICD-10-PCS; CPT 49000; principal; 2025-04-01 19:00)
DX: K25.1 Acute gastric ulcer with perforation (principal); J18.9 Pneumonia, unspecified organism; R18.8 Other ascites; J98.11 Atelectasis; I24.89 Other forms of acute ischemic heart disease; D72.829 Elevated white blood cell count, unspecified; I10 Essential (primary) hypertension; E78.5 Hyperlipidemia, unspecified; K66.0 Peritoneal adhesions (postprocedural) (postinfection); H91.93 Unspecified hearing loss, bilateral; E88.2 Lipomatosis, not elsewhere classified; D64.89 Other specified anemias; I25.10 Atherosclerotic heart disease of native coronary artery without angina pectoris; E87.6 Hypokalemia; K80.20 Calculus of gallbladder without cholecystitis without obstruction; Z85.038 Personal history of other malignant neoplasm of large intestine; Z90.49 Acquired absence of other specified parts of digestive tract; Z79.82 Long term (current) use of aspirin; Z79.899 Other long term (current) drug therapy; Z87.891 Personal history of nicotine dependence
CPT/HCPCS: 36415; 51702; 71045; 71046; 74176; 74177; 74240; 80048; 80053; 82803; 82962; 83690; 83735; 84484; 85007; 85014; 85018; 85025; 85048; 85049; 86803; 87086; 87389; 93005; 93306; 97110; 97116; 97162; 97166; 97530; J0131; J1100; J1171; J1450; J2003; J2270; J2371; J2405; J2470; J2543; J2704; J3010; J3480; J7030; J7120; Q9963; Q9967

== ENCOUNTER 2025-04-21 10:42 | Outpatient (CLI) | payer MEDICARE, OTHER, SELFPAY ==
--- OUTSIDE RECORDS SUMMARY | 2025-04-21 10:46 | XMS_ITS | Encounter Summary ---
Author Organization [facility] ystem Address [address] [place] [address] Care Team Providers Care Finisher Denture Name Role Phone Efrain Angeles MD Primary Care Provider [phone] Reason for Visit * Reason Onset Date Comments BHAVYA-CARDIAC CLEARANCE 03/05/2025 Encounter Details Date Type Department Care Team (Late st Contact Info) Description 03/05/2025 Telephone [facility] [address] [facility] [address] [place] [address] Steve Correa MD [address] [facility] [address] [place] [address] BHAVYA-CARDIAC CLEARANCE Social History Tobacco Use Types Packs/Day Years Used Date Smoking Tobacco: Former Cigarettes 0.5 38 0 10/25/1965 - 10/25/2003 Smokeless Tobacco: Never Comments:I smoked on ad off from age 15 to age 53 for a total of about 20 yrs. Alcohol Use Standard Drinks/Week Comments Not Currently 0 (1 standard drink = 0.6 oz pure alcohol) Wine and beer occasionally. (Maybe once a month. ) Abuse Screen Answer Date Recorded Unsafe at Home or Work/School Not on file Feels Threatened by Someone? Not on file 07/2023 Does Anyone Keep You from Co ntacting Others or Doint Things Outside the Home? Not on file 07/03/2023 Physical Sign of Abuse Present Not on file 1 Housing Stability Answer Date Recorded Current Living Arrangements Not on file 06/23 Potentially Unsafe Housing Conditions Not on christiano e 07/03/2023 Family and Community Support Answer Jm e Recorded Help with Day-to-Day Activities Not on file 07/03/2023 Lonely or Isolated Not on file 07/03/2023 Employment Answer Date Recorded Do you want help finding or keeping work or a lucy b? Not on file 07/03/2023 Disabilities Answer Date Recorded Concentrating, Remembering, or Making Decisions Difficulty Not on file 07/03/2023 Doing Errands Independently Difficulty Not on fi le 07/03/2023 Education Answer Date Recorded Help with school or training? Not on file Preferred Language Not on file 07/03/2023 Comments Unknown Sex and Gender Information Value Date Recorded Sex Assigned at Not on file Legal Sex Female 11:51 AM EDT Gender Identity Not on file Sexual Orientation Not on file documented as of this encounter Miscellaneous Notes * Telephone Encounter - Kaia Nugent RN - 03/05/2025 2:16 PM EDT Pt called. Pt denies any new/active cardiopulmonary symptoms. Pt given recommendations. Pt has no further questions at this time, * Telephone Encounter - Kaia Nugent RN - 03/05/2025 1:36 PM EDT Pt taking aspirin. Please advise. * Telephone Encounter - Carol Garcia RegSched Rep - 03/05/2025 1:09 PM EDT REQUEST FOR CARDIAC CLEARANCE Caller name:LINDA ASHLEY OFFICE Surgeon's name: DR. NIRANJAN BERNAL Type of planned surgery: LAPCOLEY-GALLBLADDER Date of planned surgery: 03/25 Type of anesthesia: GENERAL Have you been experiencing chest pain or shortness of breath? NOT THAT PROVIDER IS AWARE OF Is your doctor requesting for you to stop any of your medications prior to your surgery? BLOOD THINNERS IF PT IS ON ANY Where should we fax the clearance to? [phone] documented in this encounter Plan of Treatment Upcoming Encounters Date Type Department Care Team (Late st Contact Info) Description 06/23/2025 10:30 AM EDT Office Visit [facility] [address] [facility] [address] [place] [address] Rita Lei, CATCH BASIN CLEANER [address] [facility] [address] [place] [address] documented as of this encounter Visit Diagnoses Not on filedocumented in this encounter Care Teams Finisher Denture Relationship Specialty Start Date End Date Efrain Angeles MD [address] [facility] [address] [place] [address] PCP - General Family Medicine 07/16/22 documented as of this encounter
--- OUTSIDE RECORDS SUMMARY | 2025-04-21 10:46 | XMS_ITS | Encounter Summary ---
Author Organization [facility] Address [address] [place] [address] Care Team Providers Care Parts Interpreter Name Role Phone Nate Mills MD Primary Care Provider [phone] Efrain Angeles MD Primary Care Provider [phone] Encounter Details Date Type Department Care Team (Late st Contact Info) Description 03/29/2023 Orders Only [facility] at [facility] [address] [place] [phone] Ebony Albrecht MD [address] [address] Social History Tobacco Use Types [...] Description 04/26/2025 10:30 AM EDT Office Visit [facility] [address] [place] [phone] 04/26/2025 11:30 AM EDT Office Visit [facility] [place] [phone] Ebony Albrecht MD [address] [facility] [address] [place] [phone] documented as of this encounter Procedures Procedure Name Priority Date/Time Associated Diagnosis Comments CBC WITH AUTO DIFFERENTIAL Routine 03/29/2023 9:07 AM EDT documented in this encounter Results * (ABNORMAL) CBC and Differential (03/29/2023 9:07 AM EDT) External WBC 12.7(H) 3.8 - 10.8 10*3/uL 03/29/2023 9:26 AM EDT [facility] External Red Blood Cell (RBC) 4.66 3.80 - 5.20 10*6/uL 03/29/2023 9:26 AM EDT [facility] External Hemoglobin 14.4 12.0 - 16.0 g/dL 03/29/2023 9:26 AM EDT [facility] External Hematocrit 42.6 35.0 - 47.0 % 03/29/2023 9:26 AM EDT [facility] External MCV 92 80 - 100 fL 03/29/2023 9:26 AM EDT [facility] External MCH 31 26 - 35 pg 03/29/2023 9:26 AM EDT [facility] External MCHC 34 32 - 36 g/dL 03/29/2023 9:26 AM EDT [facility] External RDW 13.7 11.0 - 15.0 % 03/29/2023 9:26 AM EDT [facility] External Mean Platelet Volume 9.7 6.2 - 10.5 fL 03/29/2023 9:26 AM EDT [facility] External Platelets 254 130 - 400 10*3/uL 03/29/2023 9:26 AM EDT [facility] External Neutrophil# 8.9(H) 1.6 - 8.4 10*3/uL 03/29/2023 9:26 AM EDT [facility] External Lymphocyte# 2.7 0.4 - 5.1 10*3/uL 03/29/2023 9:26 AM EDT [facility] External Absolute Monocyte (Abs [place]) 0.7 0.0 - 1.2 10*3/uL 03/29/2023 9:26 AM EDT [facility] External Eosinophils# 0.3 0.0 - 0.8 10*3/uL 03/29/2023 9:26 AM EDT [facility] External Baso# 0.1 0.0 - 0.3 10*3/uL 03/29/2023 9:26 AM EDT [facility] External Neutrophils % 70.2 42.0 - 78.0 % 03/29/2023 9:26 AM EDT [facility] External Lymphocyte % 20.9 11.0 - 47.0 % 03/29/2023 9:26 AM EDT [facility] External Monocyte % 5.6 0.0 - 11.0 % 03/29/2023 9:26 AM EDT [facility] External Eosinophil% 2.7 0.0 - 7.0 % 03/29/2023 9:26 AM EDT [facility] External Basophil % 0.6 0.0 - 3.0 % 03/29/2023 9:26 AM EDT [facility] External Nucleated RBC%-Auto 0.0 0.0 - 0.9 % 03/29/2023 9:26 AM EDT [facility] External Nucleated RBC Absolute 0.00 Not Estab. 10*3/uL 03/29/2023 9:26 AM EDT [facility] 03/29/2023 9:07 AM EDT 03/29/2023 9:22 AM EDT us Ebony Albrecht MD LAB BLOOD ORDERABLES Final Re sult [facility] [address] [place] [address], documented in this encounter Visit Diagnoses Not on filedocumented in this encounter Care Teams Parts Interpreter Relationship Specialty Start Date End Date Nate Mills MD [facility] [place] [address] PCP - General 09/23/20 04/02/24 Efrain Angeles MD [address] [place] [address] PCP - General 04/03/24 documented as of this encounter
--- OUTSIDE RECORDS SUMMARY | 2025-04-21 10:46 | XMS_ITS | Clinical Summary ---
Author Organization [facility] Address [address] [place] [address] Care Team Providers Care Visual And Stock Associate Name Role Phone Efrain Angeles MD Primary Care Provider [phone] Allergies Active Allergy Reactions Criticality Noted Date [...] Description 04/26/2025 10:30 AM EDT Office Visit [facility] [address] [place] [address] 04/26/2025 11:30 AM EDT Office Visit [facility] [address] [place] [address] Ebony Albrecht MD [address] [place] [phone] Health Maintenance Due Date Last Done Comments [...] UKY-Zoster Vaccines (2 of 2) 07/01/2020 05/06/2020 [id number] Vaccine ( - 2023- season) 2024 06/14/2021, [...] complete this topic Insurance MEDICARE Care Teams Visual And Stock Associate Relationship Specialty Start Date End Date Efrain Angeles MD [address] [place] [address] PCP - General 04/03/24
--- OUTSIDE RECORDS SUMMARY | 2025-04-21 10:46 | XMS_ITS | Encounter Summary ---
Author Organization [facility] Address [address] [place] [address] Care Team Providers Care Sales Planner Name Role Phone Nate Mills MD Primary Care Provider [phone] Efrain Angeles MD Primary Care Provider [phone] Encounter Details Date Type Department Care Team (Late st Contact Info) Description 03/29/2023 Orders Only [facility] at [facility] [address] [place] [phone] Ebony Albrecht MD [address] [address] Social History Tobacco Use [...] Description 04/26/2025 10:30 AM EDT Office Visit [facility] [address] [place] [phone] 04/26/2025 11:30 AM EDT Office Visit [facility] [place] [address] Ebony Albrecht MD [address] [facility] [address] [place] [address] documented as of this encounter Procedures Procedure Name Priority Date/Time Associated Diagnosis Comments CEA, SERUM Routine 03/29/2023 9:07 AM EDT documented in this encounter Results * CEA, Serum (03/29/2023 9:07 AM EDT) External Carcinoembryonic Antigen 4.6 0.0 - 4.7 ng/mL 03/29/2023 9:59 AM EDT [facility] Comment: This test was performed using the Abdelrahman Awilda E801 electrochemiluminescent method. Values obtained from different assay methods cannot be used interchangeably. . 03/29/2023 9:07 AM EDT 03/29/2023 9:22 AM EDT us Ebony Albrecht MD LAB BLOOD ORDERABLES Final Re sult [facility] [address] [place] [address], documented in this encounter Visit Diagnoses Not on filedocumented in this encounter Care Teams Sales Planner Relationship Specialty Start Date End Date Nate Mills MD [address] [facility] [address] [place] [address] PCP - General 09/23/20 04/02/24 Efrain Angeles MD [address] [facility] [address] [facility] [address] [place] [address] PCP - General 04/03/24 documented as of this encounter
--- OUTSIDE RECORDS SUMMARY | 2025-04-21 10:46 | XMS_ITS | Encounter Summary ---
Author Organization [facility] Address [address] [place] [address] Care Team Providers Care Restaurant Line Server Name Role Phone Nate Mills MD Primary Care Provider [phone] Efrain Angeles MD Primary Care Provider [phone] Encounter Details Date Type Department Care Team (Late st Contact Info) Description 03/29/2023 Orders Only [facility] [address] [place] [phone] Ebony Albrecht MD [address] [address] Social History Tobacco Use Types [...] Office Visit [facility] [address] [place] [phone] 04/26/2025 11:30 AM EDT Office Visit [facility] [address] [place] [address] Ebony Albrecht MD [address] [phone] documented as of this encounter Procedures Procedure Name Priority Date/Time Associated Diagnosis Comments COMPREHENSIVE METABOLIC PANEL, PLASMA Routine 03/29/2023 9:07 AM EDT documented in this encounter Results * (ABNORMAL) Comprehensive Metabolic Panel, Plasma (03/29/2023 9:07 AM EDT) External Glucose 108(H) 74 - 100 mg/dL 03/29/2023 9:52 AM EDT [facility] External BUN 16 6 - 20 mg/dL 03/29/2023 9:52 AM EDT [facility] External Creatinine Blood 0.69 0.50 - 0.95 mg/dL 03/29/2023 9:52 AM EDT [facility] External BUN/Creat Ratio 23(H) 10 - 20 (calc) 03/29/2023 9:52 AM EDT [facility] External Sodium 140 136 - 145 mmol/L 03/29/2023 9:52 AM EDT [facility] External Potassium 3.9 3.4 - 5.0 mmol/L 03/29/2023 9:52 AM EDT [facility] External Chloride 102 98 - 107 mmol/L 03/29/2023 9:52 AM EDT [facility] External Carbon Dioxide 28 22 - 31 mmol/L 03/29/2023 9:52 AM EDT [facility] External Anion Gap (AG) 10 7 - 25 (calc) 03/29/2023 9:52 AM EDT [facility] External Calcium 9.7 8.6 - 10.2 mg/dL 03/29/2023 9:52 AM EDT [facility] External Total Protein 7.4 6.4 - 8.3 g/dL 03/29/2023 9:52 AM EDT [facility] External Albumin 4.4 3.5 - 5.2 g/dL 03/29/2023 9:52 AM EDT [facility] External Globulin 3.0 1.5 - 4.5 023 9:52 AM EDT [facility] External Albumin/Globulin Ratio 1.5 1.1 - 2.5 (calc) 03/29/2023 9:52 AM EDT [facility] External Bilirubin Total 0.6 0.1 - 1.2 mg/dL 03/29/2023 9:52 AM EDT [facility] External Alkaline Phosphatase 107 30 - 121 U/L 03/29/2023 9:52 AM EDT [facility] External AST (SGOT) 29 0 - 32 U/L 03/29/2023 9:52 AM EDT [facility] External ALT (SGPT) 36(H) 0 - 33 U/L 03/29/2023 9:52 AM EDT [facility] External Estimated GFR 91 >=60 03/29/2023 9:52 AM EDT [facility] Comment: NOTE New calculation for GFR (CKD-EPI 2020) is formulated without race adjustment factors at the recommendation of the National Kidney Foundation and [place] Society of Nephrology. This calculation has not been validated in women. For pediatric patients refer to https://www.kidney.org/professionals/KDOQI/gfr_calculatorPed 03/29/2023 9:07 AM EDT 03/29/2023 9:20 AM EDT Ebony Albrecht MD LAB BLOOD ORDERABLES Final Re sult [facility] [address] [place] [address], documented in this encounter Visit Diagnoses Not on filedocumented in this encounter Care Teams Restaurant Line Server Relationship Specialty Start Date End Date Nate Mills MD [address] [facility] [address] [place] [address] PCP - General 09/23/20 04/02/24 Efrain Angeles MD [address] [facility] [address] [place] [address] PCP - General 04/03/24 documented as of this encounter
--- OUTSIDE RECORDS SUMMARY | 2025-04-21 10:46 | XMS_ITS | Clinical Summary ---
Author Organization [facility] ([place], [place], [place], [place]) Address [address] [place] [address] Care Team Providers Care Deckhand Oyster Dredge Name Role Phone Unavailable Primary Care Provider [...] family history of breast cancer COMPARISON STUDIES: [facility] [phone]; no significant change. FINDINGS: Craniocaudal and mediolateral [...] annual screening mammography. At our facility, a [place]oul[place] marker is positioned over a visible skin [...] family history of breast cancer COMPARISON STUDIES: [facility] 9868-7593; no significant change. FINDINGS: Craniocaudal and mediolateral [...] annual screening mammography. At our facility, a [place]oul[place] marker is positioned over a visible skin [...]
--- OUTSIDE RECORDS SUMMARY | 2025-04-21 10:46 | XMS_ITS | Encounter Summary ---
Author Organization [facility] Address [address] [place] [address] Care Team Providers Care Machine Erector Name Role Phone Nate Mills MD Primary Care Provider [phone] Efrain Angeles MD Primary Care Provider [phone] Encounter Details Date Type Department Care Team (Late Contact Info) Description 02/20/2024 Orders Only External Location [address] [place] [address] Provider, External Social History Tobacco Use Types [...] Upcoming Encounters Date Type Department Care Team ([facility] Contact Info) Description 04/26/2025 10:30 AM EDT Office Visit [facility] [address] [place] [address] 04/26/2025 11:30 AM EDT Office Visit [facility] [address] [place] [address] Ebony Albrecht MD [address] [phone] documented as of this encounter Procedures Procedure [...] on filedocumented in this encounter Care Teams Machine Erector Relationship Specialty Start Date End Date Nate Mills MD [address] [facility] [address] [place] [address] PCP - General 09/23/20 04/02/24 Efrain Angeles MD [address] [facility] [address] [place] [address] PCP - General 04/03/24 documented as of this encounter
--- OUTSIDE RECORDS SUMMARY | 2025-04-21 10:47 | XMS_ITS | Encounter Summary ---
Author Organization [facility] Address [address] [place] [address] Care Team Providers Care Crack Off Person Name Role Phone Nate Mills MD Primary Care Provider [phone] Efrain Angeles MD Primary Care Provider [phone] Encounter Details Date Type Department Care Team (Late st Contact Info) Description 03/20/2021 Orders Only [facility] @ [address] [phone] Ebony Albrecht MD [address] [address] Social History Tobacco Use Types [...] Description 04/26/2025 10:30 AM EDT Office Visit [facility] at [facility] [address] [place] [address] 04/26/2025 11:30 AM EDT Office Visit [facility] [address] [place] [address] Ebony Albrecht MD [address] [facility] [address] [place] [address] documented as of this encounter Procedures Procedure Name Priority Date/Time Associated Diagnosis Comments CBC WITH AUTO DIFFERENTIAL Routine 03/20/2021 9:07 AM EDT documented in this encounter Results * (ABNORMAL) CBC and Differential (03/20/2021 9:07 AM EDT) External WBC 10.7 3.8 - 10.8 K/uL [facility] External Red Blood Cell (RBC) 4.31 3.80 - 5.20 M/uL [facility] External Hemoglobin 13.7 12.0 - 16.0 G/DL [facility] External Hematocrit 39.4 35.0 - 47.0 % [facility] External MCV 91 80 - 100 fL [facility] External MCH 32 26 - 35 PG [facility] External MCHC 35 32 - 36 G/DL [facility] External RDW 13.1 11.0 - 15.0 % [facility] External Mean Platelet Volume 9.4 6.2 - 10.5 fL [facility] External Platelets 264 130 - 400 K/uL [facility] External Neutrophil# 6.0 1.6 - 8.4 K/uL [facility] External Lymphocyte# 2.8 0.4 - 5.1 K/uL [facility] External Absolute Monocyte (Abs [place]) 0.7 0.0 - 1.2 K/uL [facility] External Eosinophils# 1.1(H) 0.0 - 0.8 K/uL [facility] External Baso# 0.1 0.0 - 0.3 K/uL [facility] External Neutrophils % 56.2 42.0 - 78.0 % [facility] External Lymphocyte % 26.2 11.0 - 47.0 % [facility] External Monocyte % 6.2 0.0 - 11.0 % [facility] External Eosinophil% 10.6(H) 0.0 - 7.0 % [facility] External Basophil % 0.8 0.0 - 3.0 % [facility] External Nucleated RBC%-Auto 0.0 0.0 - 0.9 % [facility] External Nucleated RBC Absolute 0.00 Not Estab. K/uL [facility] 03/20/2021 9:07 AM EDT 03/20/2021 9:25 AM EDT us Ebony Albrecht MD LAB BLOOD ORDERABLES Final Re sult Performing Organization Address City/State/[facility] [[email or web address]] Co de Phone Number [facility] [address] [place] [address], documented in this encounter Visit Diagnoses Not on filedocumented in this encounter Care Teams Crack Off Person Relationship Specialty Start Date End Date Nate Mills MD [address] [facility] [address] [place] [address] PCP - General 09/23/20 04/02/24 Efrain Angeles MD [address] [facility] [address] [place] [id number] PCP - General 04/03/24 documented as of this encounter
--- OUTSIDE RECORDS SUMMARY | 2025-04-21 10:47 | XMS_ITS | Encounter Summary ---
Author Organization [employer] ([place], [place], [place], [place]) Address [address] [place] [address] Care Team Providers Care Athletic Director Name Role Phone Unavailable Primary Care Provider Unavailabl e Reason for Referral * Diagnostic X-Ray (Emergency) - New Request Specialty Diagnoses / Procedures Referred By Jose tay Referred To Contact Diagnoses Calculus of kidney Procedures X-ray abdomen KUB 1 view Jordin Isabel MD [address] [place] [address] [address] [place] [address] Phone: tel: fax: Referral ID Status Reason Start Date Expiration Date V isits Requested Visits Authorized [id number] New Request 09/02/2024 09/02/2025 1 1 Encounter Details Date Type Department Care Team (Late st Contact Info) Description 09/02/[address] [facility] - [address] [place] [phone] Jordin Isabel MD [address] [place] [address] [address] [place] [address] Calculus of kidney (Primary Dx) Social History [...]
--- OUTSIDE RECORDS SUMMARY | 2025-04-21 10:47 | XMS_ITS | Referral Summary ---
Author Organization [employer] ([place], [place], [place], [place]) Address [address] [place] [address] Care Team Providers Care Hull Line Crew Member Name Role Phone Unavailable Primary Care Provider [...] family history of breast cancer COMPARISON STUDIES: [facility] [phone]; no significant change. FINDINGS: Craniocaudal and mediolateral [...] annual screening mammography. At our facility, a [place] marker is positioned over a visible skin [...] family history of breast cancer COMPARISON STUDIES: [facility] 5764-2873; no significant change. FINDINGS: Craniocaudal and mediolateral [...] annual screening mammography. At our facility, a [place] marker is positioned over a visible skin [...] for the next mammogram. Sandrine Mckeon MD [facility] ORDERABLES F inal Result from Last 3 Months or Most Recently Relevant to Health Maintenance Insurance MEDICARE PART A B
--- OUTSIDE RECORDS SUMMARY | 2025-04-21 10:47 | XMS_ITS | Encounter Summary ---
Author Organization [facility] Address [address] [place] [address] Care Team Providers Care Beverage Server Name Role Phone Nate Mills MD Primary Care Provider [phone] Efrain Angeles MD Primary Care Provider [phone] Encounter Details Date Type Department Care Team (Late st Contact Info) Description 03/20/2021 Orders Only [facility] @ [address] [phone] Ebony Albrecht MD [address] [address] Social History Tobacco Use Types [...] Description 04/26/2025 10:30 AM EDT Office Visit [facility] at [facility] [address] [place] [phone] 04/26/2025 11:30 AM EDT Office Visit [facility] at [facility] [address] [place] [phone] Ebony Albrecht MD 2195 [facility] 2nd [place] [address] documented as of this encounter Procedures Procedure Name Priority Date/Time Associated Diagnosis Comments CEA, SERUM Routine 03/20/2021 9:07 AM EDT documented in this encounter Results * (ABNORMAL) CEA, Serum (03/20/2021 9:07 AM EDT) External Carcinoembryonic Antigen 5.0(H) 0.0 - 4.7 ng/mL [facility] Comment: This test was performed using the Abdelrahman Awilda E801 electrochemiluminescent method. Values obtained from different assay methods cannot be used interchangeably. . 03/20/2021 9:07 AM EDT 03/20/2021 9:50 AM EDT us Ebony Albrecht MD LAB BLOOD ORDERABLES Final Re sult [facility] [address] [place] [address], documented in this encounter Visit Diagnoses Not on filedocumented in this encounter Care Teams Beverage Server Relationship Specialty Start Date End Date Nate Mills MD 1210 [facility] [address] [place] [address] PCP - General 09/23/20 04/02/24 Efrain Angeles MD 1210 [place] [facility] [address] [place] [address] PCP - General 04/03/24 documented as of this encounter
--- OUTSIDE RECORDS SUMMARY | 2025-04-21 10:47 | XMS_ITS | Encounter Summary ---
Author Organization [facility] Address [address] [place] [address] Care Team Providers Care Steel Construction Worker Name Role Phone Nate Mills MD Primary Care Provider [phone] Efrain Angeles MD Primary Care Provider [phone] Encounter Details Date Type Department Care Team (Late st Contact Info) Description 03/23/2022 Orders Only [facility] at [facility] [address] [place] [phone] Ebony Albrecht MD [address] [address] Social History Tobacco Use Types [...] 04/26/2025 10:30 AM EDT Office Visit [facility] at [facility] [address] [place] [phone] 04/26/2025 11:30 AM EDT Office Visit [facility] [address] [place] [phone] Ebony Albrecht MD 2195 [facility] 2nd [place] [phone] documented as of this encounter Procedures Procedure Name Priority Date/Time Associated Diagnosis Comments COMPREHENSIVE METABOLIC PANEL, PLASMA Routine 03/23/2022 9:07 AM EDT documented in this encounter Results * (ABNORMAL) Comprehensive Metabolic Panel, Plasma (03/23/2022 9:07 AM EDT) External Glucose 116(H) 74 - 100 mg/dL [facility] External BUN 15 6 - 20 mg/dL [facility] External Creatinine Blood 0.67 0.50 - 0.95 mg/dL [facility] External BUN/Creat Ratio 22(H) 10 - 20 (calc) [facility] External Sodium 141 136 - 145 mmol/L [facility] External Potassium 3.3(L) 3.4 - 5.0 mmol/L [facility] External Chloride 103 98 - 107 mmol/L [facility] External Carbon Dioxide 27 22 - 31 mmol/L [facility] External Anion Gap (AG) 11 7 - 25 (calc) [facility] External Calcium 9.5 8.6 - 10.2 mg/dL [facility] External Total Protein 7.0 6.4 - 8.3 g/dL [facility] External Albumin 4.2 3.5 - 5.2 g/dL [facility] External Globulin 2.8 1.5 - 4.5 g/dL (calc) [facility] External Albumin/Globulin Ratio 1.5 1.1 - 2.5 (calc) [facility] External Bilirubin Total 0.4 0.1 - 1.2 mg/dL [facility] External Alkaline Phosphatase 104 30 - 121 U/L [facility] External AST (SGOT) 19 0 - 32 U/L [facility] External ALT (SGPT) 17 0 - 33 U/L [facility] External Estimated GFR 92 >=60 [facility] Comment: NOTE New calculation for GFR (CKD-EPI 2020) is formulated without race adjustment factors at the recommendation of the National Kidney Foundation and [place] [employer]ph[employer]. This calculation has not been validated in women. For pediatric patients refer to https://www.kidney.org/professionals/KDOQI/gfr_calculatorPed 03/23/2022 9:07 AM EDT 03/23/2022 9:25 AM EDT us Ebony Albrecht MD LAB BLOOD ORDERABLES Final Re sult Performing Organization Address City/State/[facility] Co de Phone Number [facility] [address] [place] [address], documented in this encounter Visit Diagnoses Not on filedocumented in this encounter Care Teams Steel Construction Worker Relationship Specialty Start Date End Date Nate Mills MD 1210 [facility] [address] [place] [address] PCP - General 09/23/20 04/02/24 Efrain Angeles MD 1210 [facility] [address] [place] [address] PCP - General 04/03/24 documented as of this encounter
--- OUTSIDE RECORDS SUMMARY | 2025-04-21 10:47 | XMS_ITS | Encounter Summary ---
Author Organization [facility] Address [address] [place] [address] Care Team Providers Care Bill Sorter Name Role Phone Nate Mills MD Primary Care Provider [phone] Efrain Angeles MD Primary Care Provider [phone] Encounter Details Date Type Department Care Team (Late st Contact Info) Description 03/14/2021 Orders Only [facility] @ [facility] [address] [place] [phone] Efrain La PA [address] [place] [address] Social History Tobacco Use Types [...] [facility] [address] [place] [phone] 04/26/2025 11:30 AM EDT Office Visit [facility] [address] [place] [phone] Ebony Albrecht MD 5 [facility] 2nd [place] [address] documented as of this encounter Procedures Procedure Name Priority Date/Time Associated Diagnosis Comments D DIMER, QUANTITATIVE Routine 03/14/2021 1:48 PM EDT documented in this encounter Results * (ABNORMAL) D DIMER, QUANTITATIVE (03/14/2021 1:48 PM EDT) External D-Dimer 1.12(H) <0.50 mcg/mL FEU [facility] Comment: The D-Dimer test [...] 11:295(2):199-207] For additional information, please refer to: http://education.Lastline/faq/WTW437 (This link is being provided for informational/ educational purposes only) TEST PERFORMED AT: [facility] [address] [address] HARVINDER CULVER M.D. 03/14/2021 1:48 PM EDT 03/14/2021 2:38 PM EDT us Efrain KIRBY LAB BLOOD ORDERABLES Final R esult [facility] [address] [place] [address], documented in this encounter Visit Diagnoses Not on filedocumented in this encounter Care Teams Bill Sorter Relationship Specialty Start Date End Date Nate Mills MD 1210 [facility] [address] [place] [address] PCP - General 09/23/20 04/02/24 Efrain Angeles MD 1210 [place] [facility] [address] [place] [address] PCP - General 04/03/24 documented as of this encounter
--- OUTSIDE RECORDS SUMMARY | 2025-04-21 10:47 | XMS_ITS | Encounter Summary ---
Author Organization [facility] Address [address] [place] [address] Care Team Providers Care Flight Crew Ordnanceman Name Role Phone Nate Mills MD Primary Care Provider [phone] Efrain Angeles MD Primary Care Provider [phone] Encounter Details Date Type Department Care Team (Late st Contact Info) Description 03/14/2021 Orders Only [facility] [address] [place] [phone] Efrain La PA [address] [place] [address] Social History Tobacco Use [...] 04/26/2025 10:30 AM EDT Office Visit [facility] [address] [place] [phone] 04/26/2025 11:30 AM EDT Office Visit [facility] [address] [place] [phone] Ebony Albrecht MD 5 [facility] 2nd [place] [address] documented as of this encounter Procedures Procedure Name Priority Date/Time Associated Diagnosis Comments C-REACTIVE PROTEIN, PLASMA Routine 03/14/2021 1:48 PM EDT documented in this encounter Results * C-Reactive Protein, Plasma (03/14/2021 1:48 PM EDT) External C-Reactive Protein 0.15 0.00 - 0.49 mg/dL [facility] 03/14/2021 1:48 PM EDT 03/14/2021 2:09 PM EDT us Efrain KIRBY LAB BLOOD ORDERABLES Final R esult [facility] 12[address] [place] [address], documented in this encounter Visit Diagnoses Not on filedocumented in this encounter Care Teams Flight Crew Ordnanceman Relationship Specialty Start Date End Date Nate Mills MD 1210 [facility] [address] [place] [address] PCP - General 09/23/20 04/02/24 Efrain Angeles MD 1210 [facility] [address] [place] [address] PCP - General 04/03/24 documented as of this encounter
--- OUTSIDE RECORDS SUMMARY | 2025-04-21 10:47 | XMS_ITS | Encounter Summary ---
Author Organization [facility] Address [address] [place] [address] Care Team Providers Care Director Process Improvement Name Role Phone Nate Mills MD Primary Care Provider [phone] Efrain Angeles MD Primary Care Provider [phone] Encounter Details Date Type Department Care Team (Late st Contact Info) Description 03/14/2021 Orders Only [facility] [address] [place] [phone] Efrain La PA [address] [place] [address] Social History Tobacco Use Types [...] Office Visit [facility] [address] [place] [phone] 04/26/2025 11:30 AM EDT Office Visit [facility] [address] [place] [phone] Ebony Albrecht MD 5 [facility] 2nd [place] [address] documented as of this encounter Procedures Procedure Name Priority Date/Time Associated Diagnosis Comments SEDIMENTATION RATE, AUTOMATED Routine 03/14/2021 1:48 PM EDT documented in this encounter Results * Sedimentation Rate, Automated (03/14/2021 1:48 PM EDT) External Erythrocyte Sedimentation Rate 25 0 - 29 MM/HR [facility] 03/14/2021 1:48 PM EDT 03/14/2021 2:10 PM EDT Efrain KIRBY LAB BLOOD ORDERABLES Final R esult Performing Organization Address City/State/[facility] Co de Phone Number [facility] [address] [place] [address], documented in this encounter Visit Diagnoses Not on filedocumented in this encounter Care Teams Director Process Improvement Relationship Specialty Start Date End Date Nate Mills MD 1210 [facility] [address] [place] [id number] PCP - General 09/23/20 04/02/24 Efrain Angeles MD 1210 [facility] [address] [place] [id number] PCP - General 04/03/24 documented as of this encounter
--- OUTSIDE RECORDS SUMMARY | 2025-04-21 10:47 | XMS_ITS | Encounter Summary ---
Author Organization [facility] Address [address] [place] [address] Care Team Providers Care Traffic Law Attorney Name Role Phone Nate Mills MD Primary Care Provider [phone] Efrain Angeles MD Primary Care Provider [phone] Encounter Details Date Type Department Care Team (Late st Contact Info) Description 03/20/2021 Orders Only [facility] @ [address] [phone] Ebony Albrecht MD [address] [address] Social History Tobacco Use Types [...] Description 04/26/2025 10:30 AM EDT Office Visit [facility] [address] [place] [phone] 04/26/2025 11:30 AM EDT Office Visit [facility] [address] [place] [phone] Ebony Albrecht MD [address] [phone] documented as of this encounter Procedures Procedure Name Priority Date/Time Associated Diagnosis Comments COMPREHENSIVE METABOLIC PANEL, PLASMA Routine 03/20/2021 9:07 AM EDT documented in this encounter Results * (ABNORMAL) Comprehensive Metabolic Panel, Plasma (03/20/2021 9:07 AM EDT) External Glucose 91 74 - 100 mg/dL [facility] External BUN 18 6 - 20 mg/dL [facility] External Creatinine Blood 0.69 0.50 - 0.95 mg/dL [facility] External BUN/Creat Ratio 26(H) 10 - 20 (calc) [facility] External Sodium 143 136 - 145 mmol/L [facility] External Potassium 3.8 3.4 - 5.0 mmol/L [facility] External Chloride 104 98 - 107 mmol/L [facility] External Carbon Dioxide 29 22 - 31 mmol/L [facility] External Anion Gap (AG) 10 7 - 25 (calc) [facility] External Calcium 10.0 8.6 - 10.2 mg/dL [facility] External Total Protein 6.8 6.4 - 8.3 g/dL [facility] External Albumin 4.2 3.5 - 5.2 g/dL [facility] External Globulin 2.6 1.5 - 4.5 g/dL (calc) [facility] External Albumin/Globulin Ratio 1.6 1.1 - 2.5 (calc) [facility] External Bilirubin Total 0.4 0.1 - 1.2 mg/dL [facility] External Alkaline Phosphatase 98 35 - 106 U/L [facility] External AST (SGOT) 21 0 - 32 U/L [facility] External ALT (SGPT) 16 0 - 33 U/L [facility] External EGFR (If AFR/AM) 101 >=60 [facility] External Estimated GFR 87 >=60 [facility] Comment: NOTE Chronic kidney disease is [...] MD LAB BLOOD ORDERABLES Final Re sult [facility] [address] [place] [address], documented in this encounter Visit Diagnoses Not on filedocumented in this encounter Care Teams Traffic Law Attorney Relationship Specialty Start Date End Date Nate Mills MD 1210 [facility] [address] [place] [address] PCP - General 09/23/20 04/02/24 Efrain Angeles MD 1210 [facility] [address] [place] [address] PCP - General 04/03/24 documented as of this encounter
--- OUTSIDE RECORDS SUMMARY | 2025-04-21 10:47 | XMS_ITS | Clinical Summary ---
Author Organization [facility] Address [address] [place] [address] Care Team Providers Care Facility Sales And Admin Name Role Phone Efrain Angeles MD Primary Care Provider [phone] Allergies Active Allergy Reactions Criticality Noted Date Comments Latex Rash Low 07/16/2022 Nickel Rash Low 07/16/2022 Medications Aspirin 81 MG capsule As Needed. Active albuterol sulfate HFA 108 (90 Base) MCG/ACT inhaler albuterol sulfate HFA 90 mcg/actuation aerosol inhaler INHALE 2 PUFFS FOUR TIMES DAILY NEEDED Active celecoxib (CeleBREX) 200 MG capsule Daily. Active losartan (COZAAR) 50 MG tablet losartan 50 mg tablet TAKE 1/2 (ONE-HALF) TABLET BY MOUTH ONCE DAILY Active potassium chloride 10 MEQ CR tablet Daily. Active rosuvastatin (CRESTOR) 10 MG tablet 3 (Three) Times a Week. M<W< F Active triamterene-hyd rochlorothiazid e (MAXZIDE-25) 37.5-25 MG per tablet Daily. Active coenzyme Q10 100 MG capsule Take 1 capsule by mouth Daily. Active azithromycin (ZITHROMAX) 500 MG tablet 1 tablet As Needed. 3 Active Probiotic Product (Align) capsule Take 1 capsule by mouth Daily. 3 Active Vibegron (GEMTESA PO) Take by mouth. Ac tive minoxidil (LONITEN) 2.5 MG tablet Take 1.5 mg by mouth Daily. Active dutasteride (AVODART) 0.5 MG capsule Take 1 capsule by mouth Daily. Active Active Problems Problem Noted Date Diagnosed Date Bruit of right carotid artery 07/16/2022 Essential hypertension 07/16/2022 Mixed hyperlipidemia 07/16/2022 Abnormal EKG 07/16/2022 Encounters Date Type Department Care Team Description 03/05/2025 Telephone [facility] [address] [facility] [address] [place] [address] Steve Correa MD SHIH-CARDIAC CLEARANCE from Last 3 Months Family History Medical History Relation Name Comments Heart attack Brother Colby Heart attack ag e 38 Hypertension Brother Colby Arrhythmia Sister Gabby Heart disease Sister Gabby Relation Name Status Comments Brother Colby Father Mother Sister Gabby Social History Tobacco Use Types Packs/Day Years [...] Sign Reading Time Taken Comments Blood Pressure 108/54 05/11/2024 9:38 AM EDT Pulse 80 05/11/2024 9:38 AM EDT Temperature - - Respiratory Rate - - Oxygen Saturation 96% 05/11/2024 9:38 AM EDT Inhaled Oxygen Concentration - - Weight 77.2 kg (170 lb 3.2 oz) 05/11/2024 9:38 A M EDT Height 167.6 cm (5' 5.98 ) 05/11/2024 9:38 AM ED T Body Mass Index 27.48 05/11/2024 9:38 AM EDT Plan of Treatment Upcoming Encounters Date Type Department Care Team (Late st Contact Info) Description 06/23/2025 10:30 AM EDT Office Visit [facility] [address] [facility] [address] [place] [address] Rita Lei, FOOD QUALITY TESTER [address] [facility] [address] [place] [id number] Health Maintenance Due Date Last Done Comments DXA SCAN 1949 LIPID PANEL 1949 TDAP/TD VACCINES (1 - Tdap) 1968 COLOGUARD 1994 COLON CANCER SCREENING 5 YEA R SIGMOIDOSCOPY 1994 COLONOSCOPY 1994 [address]AL CANCER SCREENING 1994 CT COLONOGRAPHY 1994 FECAL OCCULT BLOOD TEST 1994 FIT Testing (1 year) 1994 Pneumococcal Vaccine 50+ (1 of 1 - PCV) 1999 ZOSTER VACCINE (2 of 2) 07/01/2020 05/06/2020 ANNUAL WELLNESS VISIT 07/15/2022 HEPATITIS C SCREENING 07/15/2022 COVID-19 Vaccine (4 - 2023-2 5 season) 2024 06/14/2021, 10/26/2020, 09/28/2020 RSV Vaccine - Adults (1 - 1- dose 75+ series) 2024 INFLUENZA VACCINE 06/23/2025 06/11/2022, , 05/27/2020, Additional history exists MAMMOGRAM Discontinued 11/16/2020, 10/25, 11/11/2019, Additional history exists Insurance Ellie GINA FIGUEROA [place]RIST[place]O [place] [id number] MEDICARE A & B [facility] Care Teams Facility Sales And Admin Relationship Specialty Start Date End Date Efrain Angeles MD [address] [facility] [address] [place] [address] PCP - General Family Medicine 07/16/22
--- OUTSIDE RECORDS SUMMARY | 2025-04-21 10:47 | XMS_ITS | Encounter Summary ---
Author Organization [facility] Address [address] [place] [address] Care Team Providers Care Arresting Gear Operator Name Role Phone Nate Mills MD Primary Care Provider [phone] Efrain Angeles MD Primary Care Provider [phone] Encounter Details Date Type Department Care Team (Late st Contact Info) Description 03/23/2022 Orders Only [facility] [address] [place] [phone] Ebony Albrecht MD [address] [address] Social History Tobacco Use Types [...] EDT Office Visit [facility] [address] [place] [phone] 04/26/2025 11:30 AM EDT Office Visit [facility] [address] [place] [phone] Ebony Albrecht MD 2195 [facility] [address] [place] [address] documented as of this encounter Procedures Procedure Name Priority Date/Time Associated Diagnosis Comments CEA, SERUM Routine 03/23/2022 9:07 AM EDT documented in this encounter Results * CEA, Serum (03/23/2022 9:07 AM EDT) External Carcinoembryonic Antigen 4.2 0.0 - 4.7 ng/mL [facility] Comment: This test was performed using the Abdelrahman Awilda E801 electrochemiluminescent method. Values obtained from different assay methods cannot be used interchangeably. . 03/23/2022 9:07 AM EDT 03/23/2022 9:25 AM EDT us Ebony Albrecht MD LAB BLOOD ORDERABLES Final Re sult [facility] [address] [place] [address], documented in this encounter Visit Diagnoses Not on filedocumented in this encounter Care Teams Arresting Gear Operator Relationship Specialty Start Date End Date Nate Mills MD 1210 [facility] [address] [place] [address] PCP - General 09/23/20 04/02/24 Efrain Angeles MD 1210 [facility] [address] [place] [address] PCP - General 04/03/24 documented as of this encounter
--- OUTSIDE RECORDS SUMMARY | 2025-04-21 10:47 | XMS_ITS | Encounter Summary ---
Author Organization [facility] Address [address] [place] [address] Care Team Providers Care Tin Pourer Name Role Phone Nate Mills MD Primary Care Provider [phone] Efrain Angeles MD Primary Care Provider [phone] Encounter Details Date Type Department Care Team (Late st Contact Info) Description 03/23/[address] [facility] [address] [place] [phone] Ebony Albrecht MD [address] [address] Social History Tobacco Use Types [...] AM EDT Office Visit [facility] [address] [place] [phone] 04/26/2025 11:30 AM EDT Office Visit [facility] [address] [place] [phone] Ebony Albrecht MD [address] [facility] [address] [place] [phone] documented as of this encounter Procedures Procedure Name Priority Date/Time Associated Diagnosis Comments CBC WITH AUTO DIFFERENTIAL Routine 03/23/2022 9:07 AM EDT documented in this encounter Results * (ABNORMAL) CBC and Differential (03/23/2022 9:07 AM EDT) External WBC 14.0(H) 3.8 - 10.8 K/uL [facility] External Red Blood Cell (RBC) 4.33 3.80 - 5.20 M/uL [facility] External Hemoglobin 13.3 12.0 - 16.0 G/DL [facility] External Hematocrit 39.2 35.0 - 47.0 % [facility] External MCV 91 80 - 100 fL [facility] External MCH 31 26 - 35 PG [facility] External MCHC 34 32 - 36 G/DL [facility] External RDW 13.2 11.0 - 15.0 % [facility] External Mean Platelet Volume 9.6 6.2 - 10.5 fL [facility] External Platelets 248 130 - 400 K/uL [facility] External Neutrophil# 9.3(H) 1.6 - 8.4 K/uL [facility] External Lymphocyte# 3.0 0.4 - 5.1 K/uL [facility] External Absolute Monocyte (Abs Crockett) 0.7 0.0 - 1.2 K/uL [facility] External Eosinophils# 0.8 0.0 - 0.8 K/uL [facility] External Baso# 0.2 0.0 - 0.3 K/uL [facility] External Neutrophils % 66.7 42.0 - 78.0 % [facility] External Lymphocyte % 21.2 11.0 - 47.0 % [facility] External Monocyte % 5.1 0.0 - 11.0 % [facility] External Eosinophil% 5.8 0.0 - 7.0 % [facility] External Basophil % 1.2 0.0 - 3.0 % [facility] External Nucleated RBC%-Auto 0.1 0.0 - 0.9 % [facility] External Nucleated RBC Absolute 0.01 Not Estab. K/uL [facility] 03/23/2022 9:07 AM EDT 03/23/2022 9:25 AM EDT us Ebony Albrecht MD LAB BLOOD ORDERABLES Final Re sult [facility] [address] [place] [address], documented in this encounter Visit Diagnoses Not on filedocumented in this encounter Care Teams Tin Pourer Relationship Specialty Start Date End Date Nate Mills MD 1210 [facility] [address] [place] [address] PCP - General 09/23/20 04/02/24 Efrain Angeles MD 1210 [facility] [address] [place] [id number] PCP - General 04/03/24 documented as of this encounter
--- OUTSIDE RECORDS SUMMARY | 2025-04-21 10:47 | XMS_ITS | Encounter Summary ---
Author Organization [facility] Address [address] [place] [address] Care Team Providers Care Central Service Supply Distributor Name Role Phone Efrain Angeles MD Primary Care Provider [phone] Encounter Details Date Type Department Care Team (Late st Contact Info) Description 07/16/2022 Patient rounding ([facility] only) [facility] [address] [facility] [address] [place] [phone] Steve Correa MD [address] [facility] [address] [place] [address] Social History Tobacco Use Types Packs/Day Years Used Date Smoking Tobacco: Former Cigarettes 0.5 38 0 10/25/1965 - 10/25/2003 Comments:I smoked on ad off from age [...] on file documented as of this encounter Progress Notes * Jocelyne Camacho RegSched Rep - 07/16/2022 9:23 AM EDT July 16, 2022 [place], january I speak with Alyssia Holly? My name is MIRI I am with Eugenie ANITA [facility] [address] [address] . Before we get started january I verify your date of ? 1950 I am calling to officially welcome you to our practice and ask about your recent visit. Is this a good time to talk? YES Tell me about your visit with us. What things went well? Everything went well. Klaus answered the phone when patient contacted us for appointment and was very helpful and gave great information. Nasreen in check in was very nice. Everyone was very nice. We're always looking for ways to make our patients' experiences even better. Do you have recommendations on ways we may improve? My Chart was difficult to navigate. Overall were you satisfied with your first visit to our practice? YES I appreciate you taking the time to speak with me today. Is there anything else I can do for you? NO Thank you, and have a great day. documented in this encounter Plan of Treatment Upcoming Encounters Date Type Department Care Team (Late st Contact Info) Description 06/23/2025 10:30 AM EDT Office Visit [facility] [address] [facility] [address] [place] [address] Rita Lei, LODGING MANAGER [address] [facility] [address] [place] [address] documented as of this encounter Visit Diagnoses Not on filedocumented in this encounter Care Teams Central Service Supply Distributor Relationship Specialty Start Date End Date Efrain Angeles MD 1210 [facility] [address] [place] [address] PCP - General Family Medicine 07/16/22 documented as of this encounter
[2025-04-21 12:01] LABS: Hematocrit 35.5 % (37.0-47.0); Hemoglobin 11.5 g/dL (12.2-16.2); Immature Granulocytes % 0.4 %; Mean Corpuscular HGB Conc 32.4 g/dL (31.8-35.4); Mean Corpuscular Hemoglobin 29.9 pg (27.0-31.2); Mean Corpuscular Volume 92.4 fl (81-99); Nucleated Red Blood Cells % 0 %; Platelet Count 370 K/mm3 (142-424); Red Blood Count 3.84 M/mm3 (4.20-5.40); Red Cell Distribution Width-SD 45.0 fL; White Blood Count 11.0 K/mm3 (4.8-10.8)
[2025-04-21 12:35] LABS: Alanine Aminotransferase 22 U/L (12-78); Albumin Level 4.0 g/dl (3.5-5.0); Albumin/Globulin Ratio 1.6 (1.1-1.8); Alkaline Phosphatase 176 U/L (38-126); Anion Gap 14.2 mEq/L (5-15); Aspartate Amino Transferase 40 U/L (14-36); Bilirubin,Total 0.3 mg/dl (0.2-1.3); Blood Urea Nitrogen 11 mg/dl (7-17); Calcium 10.2 mg/dl (8.4-10.2); Carbon Dioxide 24 mmol/L (22.0-30.0); Chloride 102 mmol/L (98-107); Creatinine,Serum 0.60 mg/dl (0.52-1.04); Estimated Glomerular Filt Rate 97 ml/min (>60); GFR (African American) 118 ML/MIN (>60); Globulin 2.5 g/dL (1.3-3.2); Glucose 103 mg/dl (74-100); Potassium 4.2 mmoL/L (3.5-5.1); Sodium 136 mmol/L (136-145); Total Protein,Serum 6.5 g/dl (6.3-8.2)
[2025-04-21 15:24] LABS: Iron 118 ug/dL (37-170)
[2025-04-21 15:34] LABS: Total Iron Binding Capacity 256 ug/dL (265-497)
[2025-04-21 16:01] LABS: Ferritin 229 ng/ml (11.1-264)
[2025-04-22 11:22] LABS: CA 19-9 49 U/mL (0-35); CEA 2.8 ng/mL (0.0-4.7)
== END 2025-04-21 23:59 | disposition home or self-care (01) ==
PROVIDERS: PCP Family Medicine; Visit Provider Internal Medicine Medical Oncology
DX: C23 Malignant neoplasm of gallbladder (principal); R97.0 Elevated carcinoembryonic antigen [CEA]
CPT/HCPCS: 36415; 80053; 82378; 82728; 83540; 83550; 85025; 86301

== ENCOUNTER 2025-04-22 13:31 | Outpatient (CLI) | payer MEDICARE, OTHER, SELFPAY ==
--- OUTSIDE RECORDS SUMMARY | 2025-02-01 11:00 | XMS_ITS ---
Author Organization [facility] Address [address] [facility] [address] [place] [phone] Care Team Providers Care Special Tester Name Role Phone Kathryn Angeles Primary Care [...] 1/2 (one-h rosalee) tablet by mouth once daily; Duration: 90 [...] 02/01/2025 Encounters Encounter Location Date Provider Diagnosis [facility] [address] [facility] [address] [facility] [address] [place] [phone] 02/01/2025 Kathryn Angeles Symptomatic cholelithiasis K80.20 Assessments Encounter Date Diagnosis (ICD Code) Assessment Notes Treatment Notes Treatment Clinical Notes Section Notes 02/01/2025 Symptomatic cholelithiasis (ICD-10 - K80.20) CONT RX. AWAIT CONSULTATION Plan Of Treatment Treatment Notes Assessment Notes Symptomatic cholelithiasis CONT RX. AWAI T CONSULTATION Next Appt Details Follow Up: 2 Months, Reason: Provider Name:Kathryn Pennington , 05/03/2025 01:45:00 PM, [address] [facility] [address] [facility], [address], [place], [place], [phone], [facility] 05/31/2025 04:00:00 PM, [address] [facility] [address] [facility], [address], [place], [place], [phone], Progress Notes * SOHAN NUÑEZLAWANDA:[birth year] (74 yo F)Acc No.[id number]:02/01/2025 Progress Notes Patient: BAMBI ROCHE Provider: Kathryn Angeles M.D. :1950 A ge:74 Y S ex:Female Date:02/01/2025 Address:[address], [place], [id number] Subjective: * Chief Complaints: * 1 . [...] Diagno stic Procedure: k idney stone 02/2011, [facility] ER-fall 06/06. * Family History: F ather: . M other: . 1 sister(s) . . * Social History: C URRENT TOBACCO USE S moking Status: Patient does NOT smoke, Second hand smoke exposure: No. H ome smoke detector use: yes. Marital Status: Single, spouse is . Occupation: Works at [employer]. Past smoking status: no, 2003, quit smoking. Occup. exposure: She saw the Beatles twice! She saw Laith Mayorga! Also Alissa Reyesplin and Curtis Briceno! Her favorite concert was [employer].. * Medications: T aking Dutasteride 0.5 MG Capsule 1 capsule Orally [...] * Images: Billing Information: * Visit Code: 40015 Office Visit, Est Pt., Level 3. * Procedure Codes: G2211 Complex e/m visit add on. * Electronic signature of Kathryn Angeles MD on 04/22/2025 at 01:34 PM EDT Sign off status: Pending * Provider: Kathryn Angeles M.D. Date: 0 02/01/2025 Generated for Binai josr/Ghanshyam/eTransmitting on: 0 04/22/2025 01:34 PM EDT History and Physical Notes * Examination Category [...]
--- OUTSIDE RECORDS SUMMARY | 2025-03-29 12:15 | XMS_ITS ---
Author Organization [facility] Address [address] [place] [id number] Care Team Providers Care Solar Panel Installer Name Role Phone Kathryn Angeles Primary Care Provider [phone] Allergies Allergen (clinical drug ingredient) Drug/Non Drug [...] 203 Performing Lab: Notes/Report: Test performed by [facility] [address] [place] [address] , [address], [place] [address] Rafi Forbes MD, Deputy Attorney General CLIA: [id number] Sodium 139 135-145 mmol/L Potassium 5.3 3.5-5.3 [...] Losartan Potassium 50 MG Take 1/2 (one-h senior care) tablet by mouth once daily; Duration: 90 [...] Problem Status W/U Status Risk Notes Problem Status post cholecystectomy (Z90.49) Active confirmed Vital Signs Weight 149.2 lbs 03/29/2025 Blood pressure systolic 102 mm Hg 03/29/20 25 Blood pressure diastolic 62 mm Hg 025 Heart Rate 80 /min 03/29/2025 Height 66 in 03/29/2025 BMI 24.08 kg/m2 03/29/2025 Encounters Encounter Location Date Provider Diagnosis [facility] [address] [facility] [address] [place] [id number] 03/29/2025 Kathryn Angeles Essential hypertensi on I10 [...] Follow Up: 2 Months, Reason: Provider Name:Kathryn Gabriel [facility], 05/03/2025 01:45:00 PM, [address] [facility] [address] [facility], [address], [place], [phone], Provider Name:Kathryn Rios [facility], 05/31/2025 04:00:00 PM, [address] [facility], [address], [place], [phone], Progress Notes * DANDRE NUÑEZ:[birth year] (74 yo F)Acc No.[id number]:03/29/2025 Progress Notes Patient: BAMBI ROCHE Provider: Kathryn Angeles M.D. :1950 A ge:74 Y S ex:Female Date:03/29/2025 Address:[address], [place], [id number] Subjective: * Chief Complaints: * 1 . [...] Diagno stic Procedure: k idney stone 02/2011, [facility] ER-fall 06/06. * Family History: F ather: . M other: . 1 sister(s) . . * Social History: C URRENT TOBACCO USE S moking Status: Patient does NOT smoke, Second hand smoke exposure: No. H ome smoke detector use: yes. Marital Status: Single, spouse is . Occupation: Works at [employer]. Past smoking status: no, 2003, quit smoking. Occup. exposure: She saw the Beatles twice! She saw Laith Mayorga! Also Alissa Jones and Curtis Briceno! Her favorite concert was [employer].. * Medications: T aking Gemtesa 75 MG [...] colorectal cancer - Z85.038 6 . B MA 24.0-24.9, adult - Z68.24 Plan: * Treatment: [...] PM EDT >pt is currently admitted to [facility] ?LAB: CBC Venipuncture (in house) (Collection Date [...] G 2211 Complex e/[place], [address] CBC WITH AUTO DIFF, 65943 VENIPUNCT, ROUTINE*, 1036F TOBACCO NON-USER, G8950 PREHTN/HTN BP DOC INDCD F/U DOC, G8752 MOST RECENT SYSTOLIC BP < 140MM HG, G8754 MOST RECENT DIASTOLIC BP < 90MM HG, G8420 BMI<30 AND >=22 CALC & DOCU * Follow Up: 2 Months * Images: Billing Information: * Visit Code: 95552 Office Visit, Est Pt., Level 4. * Procedure Codes: G2211 Complex e/[place]. [address] CBC WITH AUTO DIFF. 58763 VENIPUNCT, ROUTINE*. 1036F TOBACCO NON-USER. G8950 PREHTN/HTN BP DOC INDCD F/U DOC. G8752 MOST RECENT SYSTOLIC BP < 140MM HG. G8754 MOST RECENT DIASTOLIC BP < 90MM HG. G8420 BMI<30 AND >=22 CALC & DOCU. * Electronic signature of Kathryn Angeles MD on 04/22/2025 at 01:33 PM EDT Sign off status: Pending * Provider: Kathryn Angeles M.D. Date: 03/29/2025 Generated for Kasey ovalles/Ghanshyam/eTransmitting on: 04/22/2025 01:33 PM EDT History and Physical Notes * [...]
--- OUTSIDE RECORDS SUMMARY | 2025-04-12 06:30 | XMS_ITS ---
Author Organization [facility] Address [address] [place] [id number] Care Team Providers Care Rn Clinical Name Role Phone Kathryn Angeles Primary Care Provider Juani Saleem Unavailable [phone] Allergies Allergen (clinical drug ingredient) Drug/Non Drug [...] Interpretation: Performing Lab: Notes/Report: Test performed by [facility] [address] [place] [address] , [address], [place] [address] Rafi Forbes MD, Submarine Cable Equipment Technician CLIA: [id number] Sodium 141 135-145 mmol/L Potassium 4.9 3.5-5.3 mmol/L Chloride 105 97-108 mmol/L CO2 24 20-32 mmol/L Glucose 105 65-99 mg/dL BUN 16 8-23 mg/dL Creatinine 0.71 0.50-1.00 mg/dL Calcium 9.9 8.6-10.4 mg/dL eGFR by Creatinine 88 >59 mL/min/1.73m2 REASON FOR VISIT [facility] f/u Medications Medication SIG (Take, Route, [...] Status W/U Status Risk Notes Problem Leukocytosis (988540709) Leukocytosis (D72.829) Active confirmed Problem Pulmonary atelectasis (81283778) Pulmonary atelectasis (J98.11) Active confirmed Vital Signs Weight 143.4 lbs 04/12/2025 Blood pressure systolic 110 mm Hg 04/12/20 25 Blood pressure diastolic 70 mm Hg 025 Heart Rate 91 /min 04/12/2025 Height 66 in 04/12/2025 BMI 23.14 kg/m2 04/12/2025 Encounters Encounter Location Date Provider Diagnosis [facility] [address] [facility] [address] [place] [id number] 04/12/2025 Juani Saleem Chronic hypokalemia E87.6 ; [...] FU this week; will have rest of radha removed 04/12/2025 Pulmonary atelectasis (ICD-10 - J98.11) [...] (one-h rosalee) tablet by mouth once daily Rosuvastatin Calcium [...] FU this week; will have rest of radha removed Pulmonary atelectasis complete ABX Other Discharge summary wi th available lab/diagnostic imaging results obtained and reviewed. Discharge medication list reconciled. Appropriate counseling provided. Moderate Complexity Next Appt Details Follow Up: 3 Weeks, Reason: Provider Name:Kathryn Pennington , 05/03/2025 01:45:00 PM, [address] [facility] [address] [facility], [address], [place], [id number], Provider Name:Kathryn Pennington , 05/31/2025 04:00:00 PM, [address] [facility] [address] [facility] [address], [address], [place], [id number], Progress Notes * SOHAN HOLLYCLARICEB:[birth year] (74 yo F)Acc No.[id number]:04/12/2025 Progress Notes Patient: BAMBI ROCHE Provider: YULI Delacruz :1950 A ge:74 Y S ex:Female Date:04/12/2025 Address:[address], [id number] Pcp:Kathryn Angeles Subjective: * Chief Complaints: * 1 . [facility] f/u. * HPI: H PI: [facility] admission notes from 04/01/2025 as follows: [...] have prior outpatient cardiac workup from a oil dispenser in [place] on a yearly basis. She was noted [...] Care Visit. Discharge from the following Facility: [facility] with admission for Perforated Gastric Ulcer amd NSTEMI ,Discharge date: 04/08/2025 ,Date of phone contact following discharge: 04/09/2025; pt feels she is doing well. [facility] documentation reviewed; see ROS. * ROS: [...] 04/01/2025. * Hospitalization/Major Diagno stic Procedure: hyacinth bustillos stone 02/2011, [facility] ER-fall 06/06, [facility] with perforated ulcer with repair with Josh patch/Dr. Patino 04/01-04/08/2025. * Family History: F ather: . M other: . 1 sister(s) . . * Social History: C URRENT TOBACCO USE S moking Status: Patient does NOT smoke, Second hand smoke exposure: No. H ome smoke detector use: yes. Marital Status: Single, spouse is . Occupation: Works at [employer]. Past smoking status: no, 2003, quit smoking. Occup. exposure: She saw the Agent[employer] twice! She saw Laith Mauricex! Also Alissa Jones and Curtis Briceno! Her favorite concert was [employer].. * Medications: T aking Amoxicillin-Pot Clavulanate 500-125 [...] % (Auto) 67.0, Lymph % (Auto) 17.5, Mckean % (Auto) 6.3, Eos % (Auto) 6.1, Baso % (Auto) 0.8, Neut # (Auto) 10.2 H, Lymph # (Auto) 2.7, Mckean # (Auto) 1.0, Eos # (Auto) 0.9 [...] % (Auto) 67.7, Lymph % (Auto) 17.7, Mckean % (Auto) 5.6, Eos % (Auto) 6.6, Baso % (Auto) 0.7, Neut # (Auto) 11.4 H, Lymph # (Auto) 3.0, Mckean # (Auto) 0.9, Eos # (Auto) 1.1 [...] ulmonary atelectasis - J98.11 1 2. B TX 23.0-23.9, adult - Z68.23 ? Plan: * [...] 10meq bid Notes: She will see Dr. Mackay for staple [...] FU this week; will have rest of radha removed??9.?Pulmonary atelectasis? Notes: complete ABX??10.?Others? Notes: Discharge summary with available lab/diagnostic imaging results obtained and reviewed. Discharge medication list reconciled. Appropriate counseling provided. Moderate Complexity?? * Procedure Codes: 9 9495 TRANS [facility]ARE [facility] 14 DAY DISCH, 1111F DSCHR MED/CURENT MED MERGE, G2211 Complex e/[place], [address] CBC WITH AUTO DIFF, 89950 VENIPUNCT, ROUTINE*, 1036F TOBACCO NON-USER, G8420 BMI<30 AND >=22 CALC & DOCU, G8950 PREHTN/HTN BP DOC INDCD F/U DOC, G8752 MOST RECENT SYSTOLIC BP < 140MM HG, G8754 MOST RECENT DIASTOLIC BP < 90MM HG * Follow Up: 3 Weeks * Images: Billing Information: * Visit Code: 85194 Office Visit, Est Pt., Level 4. * Procedure Codes: 89502 TRANS CARE [facility] 14 DAY DISCH. 1111F DSCHR MED/CURENT MED MERGE. G2211 Complex e/[place]. [address] CBC WITH AUTO DIFF. 26891 VENIPUNCT, ROUTINE*. 1036F TOBACCO NON-USER. G8420 BMI<30 AND >=22 CALC & DOCU. G8950 PREHTN/HTN BP DOC INDCD F/U DOC. G8752 MOST RECENT SYSTOLIC BP < 140MM HG. G8754 MOST RECENT DIASTOLIC BP < 90MM HG. * Electronic signature of Carley Saleem APRN on 04/22/2025 at 01:34 PM EDT Sign off status: Pending * Provider: YULI Delacruz Date: 0 04/12/2025 Generated for Kasey ovalles/Ghanshyam/Darby on: 04/22/2025 01:34 PM EDT History and Physical Notes * HPI (History of Present Illness) Category Sub-Category Detail Notes Category Not es HPI Patient is here today for a [facility] sition of Care Visit. Discharge from the following Facility: [facility] with admission for Perforated Gastric Ulcer amd NSTEMI ,Discharge date: 04/08/2025 ,Date of phone contact following discharge: 04/09/2025; pt feels she is doing well. [facility] documentation reviewed; see ROS Examination Category Sub-Category Detail Notes Category Not es General Examination Heart: RRR Lungs: normal, clear to aus cultation Abdomen: Radha intact- ligh t redness around staple insertion sites. not swelling or warm to touch. Soft, tender to touch, normal bowel sounds, no hepatosplenomegaly, nondistended. Extremities: trace leg edema General Appearance: NAD, pleasant, alert Skin: Lowry and steri-st rips intact. LABS [facility] labs 04/07/25 06:00: WBC 15.3 H, RBC 3.28 L, Hgb 9.8 L, Hct 29.8 L, MCV 90.9, MCH 29.9, MCHC 32.9, RDW 13.2, Plt Count 434 H, MPV 11.1 H, Neut % (Auto) 67.0, Lymph % (Auto) 17.5, Mckean % (Auto) 6.3, Eos % (Auto) 6.1, Baso % (Auto) 0.8, Neut # (Auto) 10.2 H, Lymph # (Auto) 2.7, Mckean # (Auto) 1.0, Eos # (Auto) 0.9 [...] % (Auto) 67.7, Lymph % (Auto) 17.7, Mckean % (Auto) 5.6, Eos % (Auto) 6.6, Baso % (Auto) 0.7, Neut # (Auto) 11.4 H, Lymph # (Auto) 3.0, Mckean # (Auto) 0.9, Eos # (Auto) 1.1 H, Baso # (Auto) 0.1, POC Glucose 89
--- OUTSIDE RECORDS SUMMARY | 2025-04-22 13:33 | XMS_ITS | Encounter Summary ---
Author Organization Healthcare Address [address] [place] [address] Care Team Providers Care Damper Worker Name Role Phone Nate Mills MD Primary Care Provider [phone] Efrain Angeles MD Primary Care Provider [phone] Encounter Details Date Type Department Care Team ([facility] st Contact Info) Description 02/20/2024 Orders Only External Location [address] [place] [address] Provider, External Social History Tobacco Use Types [...] on file documented as of this encounter Procedures Procedure [...] on filedocumented in this encounter Care Teams Damper Worker Relationship Specialty Start Date End Date Nate Mills MD [address] [place] [address] PCP - General 09/23/20 04/02/24 Efrain Angeles MD [address] [place] [facility] [address] [place] [address] PCP - General 04/03/24 documented as of this encounter
--- OUTSIDE RECORDS SUMMARY | 2025-04-22 13:33 | XMS_ITS | Encounter Summary ---
Author Organization [facility] Address [address] [place] [address] Care Team Providers Care Signals Intelligence Analyst Name Role Phone Efrain Angeles MD Primary Care Provider [phone] Reason for Visit * Reason Onset Date Comments BHAVYA-CARDIAC CLEARANCE 03/05/2025 Encounter Details Date Type Department Care Team (Late st Contact Info) Description 03/05/2025 Telephone [facility] [address] [facility] [address] [place] [address] Steve Correa MD [address] [facility] [address] [place] [address] BHAVYA-CARDIAC CLEARANCE Social History Tobacco Use Types [...] Where should we fax the clearance to? [phone] documented in this encounter Plan of Treatment Upcoming Encounters Date Type Department Care Team (Late st Contact Info) Description 06/23/2025 10:30 AM EDT Office Visit [facility] [address] [facility] [address] [place] [phone] Rita Lei, ALARM TECHNICIAN [address] [facility] [address] [place] [address] documented as of this encounter Visit Diagnoses Not on filedocumented in this encounter Care Teams Signals Intelligence Analyst Relationship Specialty Start Date End Date Efrain Angeles MD 1210 [facility] [address] [place] [address] PCP - General Family Medicine 07/16/22 documented as of this encounter
--- OUTSIDE RECORDS SUMMARY | 2025-04-22 13:34 | XMS_ITS | Encounter Summary ---
Author Organization [facility] ([place], [place], [place], [place]) Address [address] [place] [address] Care Team Providers Care Trial Lawyer Name Role Phone Unavailable Primary Care Provider Unavailabl e Reason for Referral * Diagnostic X-Ray (Emergency) - New Request Specialty Diagnoses / Procedures Referred By Jose tay Referred To Contact Diagnoses Calculus of kidney Procedures X-ray abdomen KUB 1 view Jordin Isabel MD [address] [place] [address] [address] [place] [address] Phone: tel: fax: Referral ID Status Reason Start Date Expiration Date V isits Requested Visits Authorized [id number] New Request 09/02/2024 09/02/2025 1 1 Encounter Details Date Type Department Care Team (Late st Contact Info) Description 09/02/2024 Outside Orders [facility] Diagnostic Imaging - [address] [place] [phone] Jordin Isabel MD [address] [place] [address] [address] [place] [address] Calculus of kidney (Primary Dx) Social History [...]
--- OUTSIDE RECORDS SUMMARY | 2025-04-22 13:34 | XMS_ITS | Encounter Summary ---
Author Organization Healthcare Address [address] [place] [address] Care Team Providers Care Foam Charger Name Role Phone Nate Mills MD Primary Care Provider [phone] Efrain Angeles MD Primary Care Provider [phone] Encounter Details Date Type Department Care Team (Late st Contact Info) Description 03/20/2021 Orders Only [facility] @ [facility] [address] [place] [address] Ebony Albrecht MD [address] [address] Social History Tobacco Use Types [...] External WBC 10.7 3.8 - 10.8 K/uL [facility] External Red Blood Cell (RBC) 4.31 3.80 - 5.20 M/uL [facility] External Hemoglobin 13.7 12.0 - 16.0 G/DL [facility] External Hematocrit 39.4 35.0 - 47.0 % [facility] External MCV 91 80 - 100 fL [facility] External MCH 32 26 - 35 PG [facility] External MCHC 35 32 - 36 G/DL [facility] External RDW 13.1 11.0 - 15.0 % [facility] External Mean Platelet Volume 9.4 6.2 - 10.5 fL [facility] External Platelets 264 130 - 400 K/uL [facility] External Neutrophil# 6.0 1.6 - 8.4 K/uL [facility] External Lymphocyte# 2.8 0.4 - 5.1 K/uL [facility] External Absolute Monocyte (Abs [place]) 0.7 0.0 - 1.2 K/uL [facility] External Eosinophils# 1.1(H) 0.0 - 0.8 K/uL [facility] External Baso# 0.1 0.0 - 0.3 K/uL [facility] External Neutrophils % 56.2 42.0 - 78.0 % [facility] External Lymphocyte % 26.2 11.0 - 47.0 % [facility] External Monocyte % 6.2 0.0 - 11.0 % [facility] External Eosinophil% 10.6(H) 0.0 - 7.0 % [facility] External Basophil % 0.8 0.0 - 3.0 % [facility] External Nucleated RBC%-Auto 0.0 0.0 - 0.9 % [facility] External Nucleated RBC Absolute 0.00 Not Estab. K/uL [facility] 03/20/2021 9:07 AM EDT 03/20/2021 9:25 AM EDT us Ebony Albrecht MD LAB BLOOD ORDERABLES Final Re sult [facility] [address] [place] [address], documented in this encounter Visit Diagnoses Not on filedocumented in this encounter Care Teams Foam Charger Relationship Specialty Start Date End Date Pettey, Nate, MD [address] [place] [address] PCP - General 09/23/20 04/02/24 Efrain Angeles MD [address] [place] [address] PCP - General 04/03/24 documented as of this encounter
--- OUTSIDE RECORDS SUMMARY | 2025-04-22 13:34 | XMS_ITS | Encounter Summary ---
Author Organization Healthcare Address [address] [place] [address] Care Team Providers Care Hot Saw Helper Name Role Phone Nate Mills MD Primary Care Provider [phone] Efrain Angeles MD Primary Care Provider [phone] Encounter Details Date Type Department Care Team (Late st Contact Info) Description 03/14/2021 Orders Only [facility] @ [facility] [address] [place] [phone] Efrain La PA [address] [place], [place] [phone] Social History Tobacco Use Types Packs/Day Years [...] Sedimentation Rate 25 0 - 29 MM/HR [facility] 03/14/2021 1:4 8 PM EDT 03/14/2021 2:10 PM EDT us Efrain KIRBY LAB BLOOD ORDERABLES Final R esult [facility] [address] [place] [address], documented in this encounter Visit Diagnoses Not on filedocumented in this encounter Care Teams Hot Saw Helper Relationship Specialty Start Date End Date Nate Mills MD 1210 [facility] [address] [place] [address] PCP - General 09/23/20 04/02/24 Efrain Angeles MD [facility] [address] [address] PCP - General 04/03/24 documented as of this encounter
--- OUTSIDE RECORDS SUMMARY | 2025-04-22 13:34 | XMS_ITS | Encounter Summary ---
Author Organization Healthcare Address [address] [place] [address] Care Team Providers Care Assembler Wire Mesh Gate Name Role Phone Nate Mills MD Primary Care Provider [phone] Efrain Angeles MD Primary Care Provider [phone] Encounter Details Date Type Department Care Team (Late st Contact Info) Description 03/20/2021 Orders Only [facility] @ [facility] [address] [place] [phone] Ebony Albrecht MD [address] [address] Social History Tobacco Use Types [...] External Glucose 91 74 - 100 mg/dL [facility] External BUN 18 6 - 20 mg/dL [facility] External Creatinine Blood 0.69 0.50 - 0.95 mg/dL [facility] External BUN/Creat Ratio 26(H) 10 - 20 (calc) [facility] External Sodium 143 136 - 145 mmol/L [facility] External Potassium 3.8 3.4 - 5.0 mmol/L [facility] External Chloride 104 98 - 107 mmol/L [facility] External Carbon Dioxide 29 22 - 31 mmol/L [facility] External Anion Gap (AG) 10 7 - 25 (calc) [facility] External Calcium 10.0 8.6 - 10.2 mg/dL [facility] External Total Protein 6.8 6.4 - 8.3 g/dL [facility] External Albumin 4.2 3.5 - 5.2 g/dL [facility] External Globulin 2.6 1.5 - 4.5 g/dL (calc) [facility] External Albumin/Globulin Ratio 1.6 1.1 - 2.5 (calc) [facility] External Bilirubin Total 0.4 0.1 - 1.2 mg/dL [facility] External Alkaline Phosphatase 98 35 - 106 U/L [facility] External AST (SGOT) 21 0 - 32 U/L [facility] External ALT (SGPT) 16 0 - 33 U/L [facility] External EGFR (If AFR/AM) 101 >=60 [facility] External Estimated GFR 87 >=60 [facility] Comment: NOTE Chronic kidney [...] MD LAB BLOOD ORDERABLES Final Re sult [facility] [address] [place] [address], documented in this encounter Visit Diagnoses Not on filedocumented in this encounter Care Teams Assembler Wire Mesh Gate Relationship Specialty Start Date End Date Nate Mills MD 1210 [facility] [address] [place] [address] PCP - General 09/23/20 04/02/24 Efrain Angeles MD [address] [place] [facility] [address] [facility] [address] PCP - General 04/03/24 documented as of this encounter
--- OUTSIDE RECORDS SUMMARY | 2025-04-22 13:34 | XMS_ITS | Encounter Summary ---
Author Organization Healthcare Address [address] [place] [address] Care Team Providers Care Rag Sorter And Cutter Name Role Phone Nate Mills MD Primary Care Provider [phone] Efrain Angeles MD Primary Care Provider [phone] Encounter Details Date Type Department Care Team (Late st Contact Info) Description 03/14/2021 Orders Only [facility] @ [facility] [address] [place] [phone] Efrain La PA [address] [place], [place] [phone] Social History Tobacco Use Types Packs/Day Years [...] PM EDT) External D-Dimer 1.12(H) <0.50 mcg/mL [facility] Comment: The D-Dimer test is [...] 11:295(2):199-207] For additional information, please refer to: http://education.[employer]/faq/GWY079 (This link is being provided for informational/ educational purposes only) TEST PERFORMED AT: [facility] [address] [address] HARVINDER CULVER M.D. 03/14/2021 1:48 PM EDT 03/14/2021 2:38 PM EDT Efrain KIRBY LAB BLOOD ORDERABLES Final R esult [facility] [address] [place] [id number], documented in this encounter Visit Diagnoses Not on filedocumented in this encounter Care Teams Rag Sorter And Cutter Relationship Specialty Start Date End Date Nate Mills MD 1210 [facility] [address] [place] [address] PCP - General 09/23/20 04/02/24 Efrain Angeles MD 1210 [facility] [address] [place] [address] PCP - General 04/03/24 documented as of this encounter
--- OUTSIDE RECORDS SUMMARY | 2025-04-22 13:34 | XMS_ITS | Encounter Summary ---
Author Organization Healthcare Address [address] [place] [address] Care Team Providers Care Electronic Warfare Specialist Name Role Phone Nate Mills MD Primary Care Provider [phone] Efrain Angeles MD Primary Care Provider [phone] Encounter Details Date Type Department Care Team (Late st Contact Info) Description 03/29/2023 Orders Only [facility] [address] [place] [phone] Ebony Albrecht MD [address] [address] Social History Tobacco Use Types [...] - 10.8 10*3/uL 03/29/2023 9:26 AM EDT [facility] External Red Blood Cell (RBC) 4.66 3.80 - 5.20 10*6/uL 03/29/2023 9:26 AM EDT [facility] External Hemoglobin 14.4 12.0 - 16.0 g/dL 03/29/2023 9:26 AM EDT [facility] External Hematocrit 42.6 35.0 - 47.0 % 03/29/2023 9:26 AM EDT [facility] External MCV 92 80 - 100 fL 03/29/2023 9:26 AM EDT [facility] External MCH 31 26 - 35 pg 03/29/2023 9:26 AM EDT [facility] External MCHC 34 32 - 36 g/dL 03/29/2023 9:26 AM EDT [facility] External RDW 13.7 11.0 - 15.0 % 03/29/2023 9:26 AM EDT [facility] External Mean Platelet Volume 9.7 6.2 - 10.5 fL 03/29/2023 9:26 AM EDT [facility] External Platelets 254 130 - 400 10*3/uL 03/29/2023 9:26 AM EDT [facility] External Neutrophil# 8.9(H) 1.6 - 8.4 10*3/uL 03/29/2023 9:26 AM EDT [facility] External Lymphocyte# 2.7 0.4 - 5.1 10*3/uL 03/29/2023 9:26 AM EDT [facility] External Absolute Monocyte (Abs Swift) 0.7 0.0 - 1.2 10*3/uL 03/29/2023 9:26 AM EDT [facility] External Eosinophils# 0.3 0.0 - 0.8 10*3/uL 03/29/2023 9:26 AM EDT [facility] External Baso# 0.1 0.0 - 0.3 10*3/uL 03/29/2023 9:26 AM EDT [facility] External Neutrophils % 70.2 42.0 - 78.0 % 03/29/2023 9:26 AM EDT [facility] External Lymphocyte % 20.9 11.0 - 47.0 % 03/29/2023 9:26 AM EDT [facility] External Monocyte % 5.6 0.0 - 11.0 % 03/29/2023 9:26 AM EDT [facility] External Eosinophil% 2.7 0.0 - 7.0 % 03/29/2023 9:26 AM EDT [facility] External Basophil % 0.6 0.0 - 3.0 % 03/29/2023 9:26 AM EDT [facility] External Nucleated RBC%-Auto 0.0 0.0 - 0.9 % 03/29/2023 9:26 AM EDT [facility] External Nucleated RBC Absolute 0.00 Not Estab. 10*3/uL 03/29/2023 9:26 AM EDT [facility] 03/29/2023 9:07 AM EDT 03/29/2023 9:22 AM EDT us Ebony Albrecht MD LAB BLOOD ORDERABLES Final Re sult Performing Organization Address City/State/[facility] Co de Phone Number [facility] [address] [place] [address], documented in this encounter Visit Diagnoses Not on filedocumented in this encounter Care Teams Electronic Warfare Specialist Relationship Specialty Start Date End Date Nate Mills MD [address] [place] [address] PCP - General 09/23/20 04/02/24 Efrain Angeles MD [address] [place] [address] PCP - General 04/03/24 documented as of this encounter
--- OUTSIDE RECORDS SUMMARY | 2025-04-22 13:34 | XMS_ITS | Encounter Summary ---
Author Organization Healthcare Address [address] [place] [address] Care Team Providers Care Private Branch Exchange Operator Name Role Phone Nate Mills MD Primary Care Provider [phone] Efrain Angeles MD Primary Care Provider [phone] Encounter Details Date Type Department Care Team (Late st Contact Info) Description 03/29/2023 Orders Only [facility] at [facility] [address] [place] [id number] Ebony Albrecht MD [address] [address] Social History Tobacco Use [...] 74 - 100 mg/dL 03/29/2023 9:52 AM [facility] External BUN 16 6 - 20 mg/dL 03/29/2023 9:52 AM [facility] External Creatinine Blood 0.69 0.50 - 0.95 mg/dL 03/29/2023 9:52 AM T [facility] External BUN/Creat Ratio 23(H) 10 - 20 (calc) 03/29/2023 9:52 AM T [facility] External Sodium 140 136 - 145 mmol/L 03/29/2023 9:52 AM T [facility] External Potassium 3.9 3.4 - 5.0 mmol/L 03/29/2023 9:52 AM [facility] External Chloride 102 98 - 107 mmol/L 03/29/2023 9:52 AM T [facility] External Carbon Dioxide 28 22 - 31 mmol/L 03/29/2023 9:52 AM [facility] External Anion Gap (AG) 10 7 - 25 (calc) 03/29/2023 9:52 AM [facility] External Calcium 9.7 8.6 - 10.2 mg/dL 03/29/2023 9:52 AM [facility] External Total Protein 7.4 6.4 - 8.3 g/dL 03/29/2023 9:52 AM [facility] External Albumin 4.4 3.5 - 5.2 g/dL 03/29/2023 9:52 AM [facility] External Globulin 3.0 1.5 - 4.5 023 9:52 AM [facility] External Albumin/Globulin Ratio 1.5 1.1 - 2.5 (calc) 03/29/2023 9:52 AM [facility] External Bilirubin Total 0.6 0.1 - 1.2 mg/dL 03/29/2023 9:52 AM T [facility] External Alkaline Phosphatase 107 30 - 121 U/L 03/29/2023 9:52 AM [facility] External AST (SGOT) 29 0 - 32 U/L 03/29/2023 9:52 AM [facility] External ALT (SGPT) 36(H) 0 - 33 U/L 03/29/2023 9:52 AM EDT [facility] External Estimated GFR 91 >=60 03/29/2023 9:52 AM EDT [facility] Comment: NOTE New calculation for GFR (CKD-EPI 2020) is formulated without race adjustment factors at the recommendation of the National Kidney Foundation and [place] Society of Nephrology. This calculation has not been validated in women. For pediatric patients refer to https://www.kidney.org/professionals/KDOQI/gfr_calculatorPed 03/29/2023 9:07 AM EDT 03/29/2023 9:20 AM EDT us Ebony Albrecht MD LAB BLOOD ORDERABLES Final Re sult [facility] [address] [place] [address], documented in this encounter Visit Diagnoses Not on filedocumented in this encounter Care Teams Private Branch Exchange Operator Relationship Specialty Start Date End Date Nate Mills MD [address] [place] [address] [address] PCP - General 09/23/20 04/02/24 Efrain Angeles MD [address] [place] [address] [address] PCP - General 04/03/24 documented as of this encounter
--- OUTSIDE RECORDS SUMMARY | 2025-04-22 13:34 | XMS_ITS | Clinical Summary ---
Author Organization [facility] ([place], [place], [place], [place]) Address [address] [place] [address] Care Team Providers Care Talent Acquisition Partner Name Role Phone Unavailable Primary Care Provider [...] family history of breast cancer COMPARISON STUDIES: [facility] [phone]; no significant change. FINDINGS: Craniocaudal and mediolateral [...] annual screening mammography. At our facility, a [place] marker is positioned over a visible skin [...] family history of breast cancer COMPARISON STUDIES: [facility] [phone]; no significant change. FINDINGS: Craniocaudal and mediolateral [...] annual screening mammography. At our facility, a [place] marker is positioned over a visible skin [...]
--- OUTSIDE RECORDS SUMMARY | 2025-04-22 13:34 | XMS_ITS | Clinical Summary ---
Author Organization [facility] Address [address] [place] [address] Care Team Providers Care Heavy Equipment Supervisor Name Role Phone Efrain Angeles MD Primary Care Provider [phone] Allergies Active Allergy Reactions Criticality Noted Date [...] 04/20/2024 2:07 PM EDT Plan of Treatment Health Maintenance Due Date [...] UKY-Zoster Vaccines (2 of 2) 07/01/2020 05/06/2020 [id number]-90 Vaccine ( season) 2024 06/14/2021, 10/26/2020, 10/20/2020, Additional history [...] complete this topic Insurance MEDICARE Care Teams Heavy Equipment Supervisor Relationship Specialty Start Date End Date Efrain Angeles MD [address] [place], [place] [address] PCP - General 04/03/24
--- OUTSIDE RECORDS SUMMARY | 2025-04-22 13:34 | XMS_ITS | Encounter Summary ---
Author Organization Healthcare Address [address] [place] [address] Care Team Providers Care Assistant Community Director Name Role Phone Nate Mills MD Primary Care Provider [phone] Efrain Angeles MD Primary Care Provider [phone] Encounter Details Date Type Department Care Team (Late st Contact Info) Description 03/20/2021 Orders Only [facility] @ [facility] [address] [place] [phone] Ebony Albrecht MD [address] [address] Social History Tobacco Use Types [...] Carcinoembryonic Antigen 5.0(H) 0.0 - 4.7 ng/mL [facility] Comment: This test was performed using the Abdelrahman Awilda E801 electrochemiluminescent method. Values obtained from different assay methods cannot be used interchangeably. . 03/20/2021 9:07 AM EDT 03/20/2021 9:50 AM EDT us Ebony Albrecht MD LAB BLOOD ORDERABLES Final Re sult [facility] [address] [place] [address], documented in this encounter Visit Diagnoses Not on filedocumented in this encounter Care Teams Assistant Community Director Relationship Specialty Start Date End Date Nate Mills MD [facility] [address] [place] [address] PCP - General 09/23/20 04/02/24 Efrain Angeles MD 1210 [facility] [address] [place] [address] PCP - General 04/03/24 documented as of this encounter
--- OUTSIDE RECORDS SUMMARY | 2025-04-22 13:34 | XMS_ITS | Encounter Summary ---
Author Organization Healthcare Address [address] [place] [address] Care Team Providers Care Core Composer Feeder Name Role Phone Nate Mills MD Primary Care Provider [phone] Efrain Angeles MD Primary Care Provider [phone] Encounter Details Date Type Department Care Team (Late st Contact Info) Description 03/29/2023 Orders Only [facility] at [facility] [address] [place] [phone] Ebony Albrecht MD [address] [address] Social History Tobacco Use Types [...] - 4.7 ng/mL 03/29/2023 9:59 AM EDT [facility] Comment: This test was performed using the Abdelrahman Awilda E801 electrochemiluminescent method. Values obtained from different assay methods cannot be used interchangeably. . 03/29/2023 9:07 AM EDT 03/29/2023 9:22 AM EDT us Ebony Albrecht MD LAB BLOOD ORDERABLES Final Re sult [facility] [address] [place] [address], documented in this encounter Visit Diagnoses Not on filedocumented in this encounter Care Teams Core Composer Feeder Relationship Specialty Start Date End Date Nate Mills MD [address] [place] [address] [address] [place] [address] PCP - General 09/23/20 04/02/24 Efrain Angeles MD [facility] [address] [place] [address] PCP - General 04/03/24 documented as of this encounter
--- OUTSIDE RECORDS SUMMARY | 2025-04-22 13:34 | XMS_ITS | Referral Summary ---
Author Organization [employer] ([place], [place], [place], [place]) Address [address] [place] [address] Care Team Providers Care Microbial Specialist Name Role Phone Unavailable Primary Care [...] family history of breast cancer COMPARISON STUDIES: [facility] [phone]; no significant change. FINDINGS: Craniocaudal and mediolateral [...] annual screening mammography. At our facility, a [place] marker is positioned over a visible skin [...] family history of breast cancer COMPARISON STUDIES: [facility] [phone]; no significant change. FINDINGS: Craniocaudal and mediolateral [...] annual screening mammography. At our facility, a [place] marker is positioned over a visible skin [...] for the next mammogram. Sandrine Mckeon MD [facility] MAMMOGRAPHY ORDERABLES F inal Result from Last 3 Months or Most Recently Relevant to Health Maintenance Insurance MEDICARE PART A B
--- OUTSIDE RECORDS SUMMARY | 2025-04-22 13:35 | XMS_ITS | Encounter Summary ---
Author Organization [facility] Address [address] [place] [address] Care Team Providers Care Hydraulic Riveter Name Role Phone Efrain Angeles MD Primary Care Provider [phone] Encounter Details Date Type Department Care Team (Late st Contact Info) Description 07/16/2022 Patient rounding ([facility] only) [facility] [address] [facility] [place] [place] [phone] Steve Correa MD [address] [facility] [address] [place] [address] Social History Tobacco Use Types Packs/Day Years [...] is MIRI I am with Eugenie ANITA [facility] MAIN [address] [address] . Before we get started january I [...] Description 06/23/2025 10:30 AM EDT Office Visit [facility] [address] [facility] [address] [place] [address] Rita Lei, BEEF GRINDER [address] [facility] [place] [address] [place] [address] documented as of this encounter Visit Diagnoses Not on filedocumented in this encounter Care Teams Hydraulic Riveter Relationship Specialty Start Date End Date Efrain Angeles MD 1210 [facility] [address] [place] [address] PCP - General Family Medicine 07/16/22 documented as of this encounter
--- OUTSIDE RECORDS SUMMARY | 2025-04-22 13:35 | XMS_ITS | Encounter Summary ---
Author Organization Healthcare Address [address] [place] [address] Care Team Providers Care Dry Mop Maker Name Role Phone Nate Mills MD Primary Care Provider [phone] Efrain Angeles MD Primary Care Provider [phone] Encounter Details Date Type Department Care Team (Late st Contact Info) Description 03/14/2021 Orders Only [facility] @ [facility] [address] [place] [address] Efrain La PA [address] [place], [place] [id number] Social History Tobacco Use Types Packs/Day Years [...] C-Reactive Protein 0.15 0.00 - 0.49 mg/dL [facility] 03/14/2021 1:48 PM EDT 03/14/2021 2:09 PM EDT Efrain KIRBY LAB BLOOD ORDERABLES Final R esult [facility] [address] [place] [address], documented in this encounter Visit Diagnoses Not on filedocumented in this encounter Care Teams Dry Mop Maker Relationship Specialty Start Date End Date Nate Mills MD 1210 [facility] [address] [place] [address] PCP - General 09/23/20 04/02/24 Efrain Angeles MD 1210 [facility] [address] [place] [address] PCP - General 04/03/24 documented as of this encounter
--- OUTSIDE RECORDS SUMMARY | 2025-04-22 13:35 | XMS_ITS | Encounter Summary ---
Author Organization Healthcare Address [address] [place] [address] Care Team Providers Care Material Mixer Name Role Phone Nate Mills MD Primary Care Provider [phone] Efrain Angeles MD Primary Care Provider [phone] Encounter Details Date Type Department Care Team (Late st Contact Info) Description 03/23/2022 Orders Only [facility] at [facility] [address] [place] [phone] Ebony Albrecht MD [address] [address] Social History Tobacco Use Types [...] External WBC 14.0(H) 3.8 - 10.8 K/uL [facility] External Red Blood Cell (RBC) 4.33 3.80 - 5.20 M/uL [facility] External Hemoglobin 13.3 12.0 - 16.0 G/DL [facility] External Hematocrit 39.2 35.0 - 47.0 % [facility] External MCV 91 80 - 100 fL [facility] External MCH 31 26 - 35 PG [facility] External MCHC 34 32 - 36 G/DL [facility] External RDW 13.2 11.0 - 15.0 % [facility] External Mean Platelet Volume 9.6 6.2 - 10.5 fL [facility] External Platelets 248 130 - 400 K/uL [facility] External Neutrophil# 9.3(H) 1.6 - 8.4 K/uL [facility] External Lymphocyte# 3.0 0.4 - 5.1 K/uL [facility] External Absolute Monocyte (Abs [place]) 0.7 0.0 - 1.2 K/uL [facility] External Eosinophils# 0.8 0.0 - 0.8 K/uL [facility] External Baso# 0.2 0.0 - 0.3 K/uL [facility] External Neutrophils % 66.7 42.0 - 78.0 % [facility] External Lymphocyte % 21.2 11.0 - 47.0 % [facility] External Monocyte % 5.1 0.0 - 11.0 % [facility] External Eosinophil% 5.8 0.0 - 7.0 % [facility] External Basophil % 1.2 0.0 - 3.0 % [facility] External Nucleated RBC%-Auto 0.1 0.0 - 0.9 % [facility] External Nucleated RBC Absolute 0.01 Not Estab. K/uL [facility] 03/23/2022 9:07 AM EDT 03/23/2022 9:25 AM EDT us Ebony Albrecht MD LAB BLOOD ORDERABLES Final Re sult [facility] [address] [place] [address], documented in this encounter Visit Diagnoses Not on filedocumented in this encounter Care Teams Material Mixer Relationship Specialty Start Date End Date Pettey, Nate, MD [address] [place] [address] PCP - General 09/23/20 04/02/24 Efrain Angeles MD [address] [place] [address] PCP - General 04/03/24 documented as of this encounter
--- OUTSIDE RECORDS SUMMARY | 2025-04-22 13:35 | XMS_ITS | Encounter Summary ---
Author Organization Healthcare Address [address] [place] [address] Care Team Providers Care Police Inspector Name Role Phone Nate Mills MD Primary Care Provider [phone] Efrain Angeles MD Primary Care Provider [phone] Encounter Details Date Type Department Care Team (Late st Contact Info) Description 03/23/2022 Orders Only [facility] at [facility] [address] [place] [phone] Ebony Albrecht MD [address] [address] Social History Tobacco Use Types [...] External Glucose 116(H) 74 - 100 mg/dL [facility] External BUN 15 6 - 20 mg/dL [facility] External Creatinine Blood 0.67 0.50 - 0.95 mg/dL [facility] External BUN/Creat Ratio 22(H) 10 - 20 (calc) [facility] External Sodium 141 136 - 145 mmol/L [facility] External Potassium 3.3(L) 3.4 - 5.0 mmol/L [facility] External Chloride 103 98 - 107 mmol/L [facility] External Carbon Dioxide 27 22 - 31 mmol/L [facility] External Anion Gap (AG) 11 7 - 25 (calc) [facility] External Calcium 9.5 8.6 - 10.2 mg/dL [facility] External Total Protein 7.0 6.4 - 8.3 g/dL [facility] External Albumin 4.2 3.5 - 5.2 g/dL [facility] External Globulin 2.8 1.5 - 4.5 g/dL (calc) [facility] External Albumin/Globulin Ratio 1.5 1.1 - 2.5 (calc) [facility] External Bilirubin Total 0.4 0.1 - 1.2 mg/dL [facility] External Alkaline Phosphatase 104 30 - 121 U/L [facility] External AST (SGOT) 19 0 - 32 U/L [facility] External ALT (SGPT) 17 0 - 33 U/L [facility] External Estimated GFR 92 >=60 [facility] Comment: NOTE New calculation for GFR (CKD-EPI 2020) is formulated without race adjustment factors at the recommendation of the National Kidney Foundation and [place] Society of Nephrology. This calculation has not been validated in women. For pediatric patients refer to https://www.kidney.org/professionals/KDOQI/gfr_calculatorPed 03/23/2022 9:07 AM EDT 03/23/2022 9:25 AM EDT us Ebony Albrecht MD LAB BLOOD ORDERABLES Final Re sult [facility] [address] [place] [address], documented in this encounter Visit Diagnoses Not on filedocumented in this encounter Care Teams Police Inspector Relationship Specialty Start Date End Date Nate Mills MD [address] [place] [id number] PCP - General 09/23/20 04/02/24 Efrain Angeles MD [address] [place] [id number] PCP - General 04/03/24 documented as of this encounter
--- OUTSIDE RECORDS SUMMARY | 2025-04-22 13:35 | XMS_ITS | Encounter Summary ---
Author Organization Healthcare Address [address] [place] [address] Care Team Providers Care Certified Medical Assistant Name Role Phone Nate Mills MD Primary Care Provider [phone] Efrain Angeles MD Primary Care Provider [phone] Encounter Details Date Type Department Care Team (Late st Contact Info) Description 03/23/2022 Orders Only [facility] at [facility] [address] [place] [phone] Ebony Albrecht MD [address] [address] Social History Tobacco Use Types [...] Carcinoembryonic Antigen 4.2 0.0 - 4.7 ng/mL [facility] Comment: This test was performed using the Abdelrahman Awilda E801 electrochemiluminescent method. Values obtained from different assay methods cannot be used interchangeably. . 03/23/2022 9:07 AM EDT 03/23/2022 9:25 AM EDT us Ebony Albrecht MD LAB BLOOD ORDERABLES Final Re sult [facility] [address] [place] [address], documented in this encounter Visit Diagnoses Not on filedocumented in this encounter Care Teams Certified Medical Assistant Relationship Specialty Start Date End Date Nate Mills MD [facility] [address] [place] [address] PCP - General 09/23/20 04/02/24 Efrain Angeles MD [facility] [address] [place] [id number] PCP - General 04/03/24 documented as of this encounter
--- OUTSIDE RECORDS SUMMARY | 2025-04-22 13:35 | XMS_ITS | Clinical Summary ---
[facility] Organization [facility] Address [address] [place] [address] Care Team Providers Care Bolt Threader Name Role Phone Efrain Angeles MD Primary Care Provider [phone] Allergies Active Allergy Reactions Criticality Noted Date [...] Type Department Care Team Description 03/05/2025 Telephone [facility] [address] [facility] [address] [place] [address] Steve Correa MD [facility]-CARDIAC CLEARANCE [...] Description 06/23/2025 10:30 AM EDT Office Visit [facility] [address] [facility] [address] [place] [address] Rita Lei, FITNESS INSTRUCTOR [address] [facility] [address] [place] [id number] Health Maintenance Due Date Last Done Comments [...] exists Insurance Ellie GINA FIGUEROA [place]RIST[place]ARO [place] [id number] MEDICARE A & B [facility] Care Teams Bolt Threader Relationship Specialty Start Date End Date Efrain Angeles MD [address] [facility] [address] [place] [address] PCP - General Family Medicine 07/16/22
--- OUTSIDE RECORDS SUMMARY | 2025-04-22 13:35 | XMS_ITS | Patient Health Record ---
Author Organization [facility] Address [address] [place] [id number] Care Team Providers Care Inventory Accountant Name Role Phone Kathryn Angeles Primary Care Provider Juani Saleem Unavailable [phone] Allergies Allergen (clinical drug ingredient) Drug/Non Drug [...] 203 Performing Lab: Notes/Report: Test performed by [facility] , [address], [place] [address] Rafi Forbes MD, [employer] CLIA: [id number] Sodium 139 135-145 mmol/L Potassium 5.3 3.5-5.3 [...] 1.5 1.1-2.5 CBC Venipuncture (in house) Reviewed date:04/12/2025 03:47:45 [...] Interpretation: Performing Lab: Notes/Report: Test performed by [facility], [address] , [address], [place] [address] Rafi Forbes MD, [employer] Officer CLIA: [id number] Sodium 141 135-145 mmol/L Potassium 4.9 3.5-5.3 mmol/L Chloride 105 97-108 mmol/L CO2 24 20-32 mmol/L Glucose 105 65-99 mg/dL BUN 16 8-23 mg/dL Creatinine 0.71 0.50-1.00 mg/dL Calcium 9.9 8.6-10.4 mg/dL eGFR by Creatinine 88 >59 mL/min/1.73m2 H-CBC Reviewed date:04/13/2025 11:35:15 AM Interpretation: Performing Lab: Notes/Report: WBC 16.9 4.8-10.8 K/mm3 RBC 3.44 4.20-5.40 M/mm3 HGB 10.5 12.2-16.2 g/dL HCT 31.6 37.0-47.0 % MCV 91.9 81-99 fl MCH 30.5 27.0-31.2 pg MCHC 33.2 31.8-35.4 g/dL RDW-SD 44.0 RDW 13.2 11.5-17.5 % PLT 450 142-424 K/mm3 MPV 11.0 7.4-10.4 fl NE% 67.7 37.0-80.0 % LY% 17.7 10-50 % MO% 5.6 1.7-9.3 % EO% 6.6 0.1-12.0 % BA% 0.7 0.1-2.0 % NRBC% 0 IG% 1.7 NE# 11.4 1.8-7.8 K/mm3 LY# 3.0 0.7-4.5 K/mm3 MO# 0.9 0.1-1.0 K/mm3 EO# 1.1 0.0-0.4 Kmm3 BA# 0.1 0-0.2 K/mm3 NRBC# 0 IG# 0.29 M-Complete Blood Count Man D if Reviewed date:04/12/2025 04:35:40 PM Interpretation: Performing Lab: Notes/Report: WBC 15.3 4.8-10.8 K/mm3 RBC 3.28 4.20-5.40 M/mm3 HGB 9.8 12.2-16.2 g/dL HCT 29.8 37.0-47.0 % MCV 90.9 81-99 fl MCH 29.9 27.0-31.2 pg MCHC 32.9 31.8-35.4 g/dL RDW 13.2 11.5-17.5 % PLT 434 142-424 K/mm3 MPV 11.1 7.4-10.4 fl NE% 67.0 37.0-80.0 % LY% 17.5 10-50 % MO% 6.3 1.7-9.3 % EO% 6.1 0.1-12.0 % BA% 0.8 0.1-2.0 % NE# 10.2 1.8-7.8 K/mm3 LY# 2.7 0.7-4.5 K/mm3 MO# 1.0 0.1-1.0 K/mm3 EO# 0.9 0.0-0.4 Kmm3 BA# 0.1 0-0.2 K/mm3 MDIFF MANUAL DIFFERENTIAL MANUAL DIFF TCC 100 NEUT%M 72 42-76 % LYMPH%M 16 10-50 % MONO%M 3 2-9 % EOS%M 6 0-3 % BASO%M 1.0 0-1 MYELO% 2 0-1 PLTE Slight Increase RM Normal H-BMP Reviewed date:04/12/2025 04:35:21 PM Interpretation: Performing Lab: Notes/Report: NA 140 136-145 mmol/L K 3.6 3.5-5.1 mmoL/L Delta: 2.8 on 04/06/25-746 CL 107 98-107 mmol/L CO2 23 22.0-30.0 mmol/L GAP 13.6 5-15 mEq/L BUN 3 7-17 mg/dl Delta: 7 on 04/06/25-746 CREATT 0.70 0.52-1.04 mg/dl CRCLE 57 50-200 mL/min GFRAA 99 >60 ML/MIN EGFR 82 >60 ml/min GLU 105 74-100 mg/dl CA 8.4 8.4-10.2 mg/dl H-CMP Reviewed date:04/13/2025 11:35:15 AM Interpretation: Performing Lab: Notes/Report: NA 143 136-145 mmol/L K 2.8 3.5-5.1 mmoL/L CRITICAL RESULT Results called and read back/verified to: Princess CABRERA on 04/06/25 at 0808 By Mckayla Melendez CL 105 98-107 mmol/L CO2 25 22.0-30.0 mmol/L GAP 15.8 5-15 mEq/L BUN 7 7-17 mg/dl Delta: 13 on 04/05/25-743 CREATT 0.60 0.52-1.04 mg/dl CRCLE 55 50-200 mL/min GFRAA 118 >60 ML/MIN EGFR 97 >60 ml/min GLU 114 74-100 mg/dl CA 8.4 8.4-10.2 mg/dl BILIT 0.5 0.2-1.3 mg/dl AST 21 14-36 U/L Delta: 30 on 04/03/25 ALT 20 12-78 U/L Delta: 46 on 04/03/25 TP 5.9 6.3-8.2 g/dl ALB 3.0 3.5-5.0 g/dl GLOB 2.9 1.3-3.2 g/dL AGRATIO 1.0 1.1-1.8 ALP 188 38-126 U/L M-Complete Blood Count Man D if Reviewed date:04/13/2025 11:35:15 AM Interpretation: Performing Lab: Notes/Report: WBC 17.8 4.8-10.8 K/mm3 RBC 3.51 4.20-5.40 M/mm3 HGB 10.6 12.2-16.2 g/dL HCT 32.0 37.0-47.0 % MCV 91.2 81-99 fl MCH 30.2 27.0-31.2 pg MCHC 33.1 31.8-35.4 g/dL RDW 13.2 11.5-17.5 % PLT 454 142-424 K/mm3 MPV 10.7 7.4-10.4 fl NE% 70.6 37.0-80.0 % LY% 16.3 10-50 % MO% 6.0 1.7-9.3 % EO% 4.4 0.1-12.0 % BA% 0.5 0.1-2.0 % NE# 12.6 1.8-7.8 K/mm3 LY# 2.9 0.7-4.5 K/mm3 MO# 1.1 0.1-1.0 K/mm3 EO# 0.8 0.0-0.4 Kmm3 BA# 0.1 0-0.2 K/mm3 MDIFF MANUAL DIFFERENTIAL MANUAL DIFF TCC 100 NEUT%M 57 42-76 % BAND% 13.0 0-8 LYMPH%M 17 10-50 % MONO%M 4 2-9 % EOS%M 7 0-3 % BASO%M 2.0 0-1 PLTE Slight Inc GPLAT 1+ POIK 1+ BSTP 1+ ANISO 1+ MACROC 1+ TGT 1+ H-CBC Reviewed date:04/13/2025 11:35:15 AM Interpretation: Performing Lab: Notes/Report: WBC 16.7 4.8-10.8 K/mm3 RBC 3.54 4.20-5.40 M/mm3 HGB 10.8 12.2-16.2 g/dL HCT 32.8 37.0-47.0 % MCV 92.7 81-99 fl MCH 30.5 27.0-31.2 pg MCHC 32.9 31.8-35.4 g/dL RDW-SD 44.9 RDW 13.1 11.5-17.5 % PLT 435 142-424 K/mm3 MPV 11.2 7.4-10.4 fl NE% 70.8 37.0-80.0 % LY% 15.3 10-50 % MO% 5.6 1.7-9.3 % EO% 5.4 0.1-12.0 % BA% 0.8 0.1-2.0 % NRBC% 0 IG% 2.1 NE# 11.8 1.8-7.8 K/mm3 LY# 2.6 0.7-4.5 K/mm3 MO# 0.9 0.1-1.0 K/mm3 EO# 0.9 0.0-0.4 Kmm3 BA# 0.1 0-0.2 K/mm3 NRBC# 0 IG# 0.35 H-Magnesium Reviewed date:04/13/2025 11:35:15 AM Interpretation: Performing Lab: Notes/Report: MG 1.7 1.6-2.3 mg/dl H-CMP Reviewed date:04/13/2025 11:35:15 AM Interpretation: Performing Lab: Notes/Report: NA 144 136-145 mmol/L K 4.1 3.5-5.1 mmoL/L CL 105 98-107 mmol/L CO2 27 22.0-30.0 mmol/L GAP 16.1 5-15 mEq/L BUN 25 7-17 mg/dl CREATT 0.90 0.52-1.04 mg/dl CRCLE 58 50-200 mL/min GFRAA 74 >60 ML/MIN EGFR 61 >60 ml/min GLU 84 74-100 mg/dl CA 9.0 8.4-10.2 mg/dl BILIT 0.5 0.2-1.3 mg/dl AST 30 14-36 U/L ALT 46 12-78 U/L Delta: 27 on 04/01/25-1341 TP 5.5 6.3-8.2 g/dl ALB 3.0 3.5-5.0 g/dl GLOB 2.5 1.3-3.2 g/dL AGRATIO 1.2 1.1-1.8 ALP 221 38-126 U/L H-CBC Reviewed date:04/13/2025 11:35:15 AM Interpretation: Performing Lab: Notes/Report: WBC 21.6 4.8-10.8 K/mm3 RBC 3.52 4.20-5.40 M/mm3 HGB 10.4 12.2-16.2 g/dL HCT 32.7 37.0-47.0 % MCV 92.9 81-99 fl MCH 29.5 27.0-31.2 pg MCHC 31.8 31.8-35.4 g/dL RDW-SD 45.1 RDW 13.2 11.5-17.5 % PLT 395 142-424 K/mm3 MPV 11.2 7.4-10.4 fl NE% 82.2 37.0-80.0 % LY% 9.2 10-50 % MO% 5.2 1.7-9.3 % EO% 2.0 0.1-12.0 % BA% 0.3 0.1-2.0 % NRBC% 0 IG% 1.1 NE# 17.8 1.8-7.8 K/mm3 LY# 2.0 0.7-4.5 K/mm3 MO# 1.1 0.1-1.0 K/mm3 EO# 0.4 0.0-0.4 Kmm3 BA# 0.1 0-0.2 K/mm3 NRBC# 0 IG# 0.24 H-CMP Reviewed date:09/24/2024 09:21:35 AM Interpretation:bun 24 [...] 0.8 0.0-0.4 K/mm3 BA# 0.1 0-0.2 K/mm3 CT Scan : Chest w/ & w/o [...] - 38 platlet 428 100 - 400 H-BMP Reviewed date:09/24/2024 09:20:53 AM Interpretation: Performing [...] 124 Performing Lab: Notes/Report: Test performed by [facility], [employer] [address] [place] [address] , [address], [place] [address] Rafi Forbes MD, [employer]ing [employer] Officer CLIA: [id number] Sodium 140 135-145 mmol/L Potassium 4.2 3.5-5.3 [...] Interpretation:Normal Performing Lab: Notes/Report: Test performed by [facility], [address] , [address], [place] [address] Rafi Forbes MD, [employer]ing [employer] Officer CLIA: [id number] Lipase 25.6 13.0-60.0 u/L Ultrasound : Right [place] drvasyl Reviewed date:02/05/2025 01:15:25 PM Interpretation:fatty liver, sludge and stones Performing Lab: Notes/Report: fatty liver, sludge and stones Medications Medication SIG (Take, Route, Frequency, Duration) Notes Start Date End Date Status Aspirin Low Dose 81 MG 1 tablet Orally O nce a day 12/26/2023 Active Potassium Chloride ER 20 MEQ 1 tablet with food Orally twice a day; Duration: 30 days 04/13/2025 Active Losartan Potassium 50 MG Take 1/2 (one-h intermediate) tablet by mouth once daily Active Rosuvastatin Calcium 10 MG TAKE 1 TABLET BY MOUTH ON SATURDAY, SATURDAY AND SATURDAY Active Align 4 MG 1 cap(s) orally once a day; Duration: 28 day(s) 12/24/2022 Active Triamterene-HCTZ 37.5-25 MG 1 tablet in the morning Orally Once a day Active Amoxicillin-Pot Clavulanate 500-125 MG 1 tablet Orally every 8 hours Active Albuterol Sulfate HFA 108 (90 Base) MCG/ACT 1 puff as needed Inhalation four times a day as needed Active Pantoprazole Sodium 20 MG 1 tablet 1/2 t o 1 hour before morning meal Orally Once a day Active Gemtesa 75 MG 1 tablet Orally Once a day Active Immunizations Vaccine Route Administration Date Status [...] Problem Status W/U Status Risk Notes Problem Essential hypertension (96598421) Essential (primary) hypertension (I10) Active confirmed Problem Leukocytosis (091529985) Leukocytosis (D72.829) Active confirmed Problem Sciatica (20255210) Sciatica (M54.30) Active co nfirmed Problem Essential hypertension (65873038) Essential hypertension (I10) Active confirmed Problem Diverticulitis (96791295) Diverticulitis (K57.92) Active confirmed Problem Alopecia (48283733) Hair loss (L65.9) Active co nfirmed Problem Bandemia (477050760) Bandemia (D72.825) Active confirmed Problem Mixed hyperlipidemia (198972772) Mixed hyperlipidemia (E78.2) Active confirmed Problem Hyperlipidemia (82233480) Other hyperlipidemia (E78.4) Active confirmed Problem Chronic pain (90835123) Other chronic pain (G89.29) Active confirmed Problem Acute non-ST segment elevation myocardial infarction (545869801) Non-ST elevation (NSTEMI) myocardial infarction (I21.4) Active confirmed Problem Chronic maxillary sinusitis (75179037) Chronic maxillary sinusitis (J32.0) Active confirmed Problem Centrilobular emphysema (14596422) Centrilobular emphysema (J43.2) Active confirmed Problem Anosmia (79910927) Anosmia (R43.0) Active confi rmed Problem Prosthetic breast implant (physical object) (8841982) Breast implant status (Z98.82) Active confirmed Problem Constipation by delayed colonic transit (87329723) Constipation by delayed colonic transit (K59.01) Active confirmed Problem Myositis (20965477) Myofasciitis (M60.9) Active confirmed Problem 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) Active confirmed Problem History of cholecystectomy (303036823) Status post cholecystectomy (Z90.49) Active confirmed Problem Pulmonary atelectasis (94288745) Pulmonary atelectasis (J98.11) Active confirmed Problem History of repair of hip joint (488199027) Hip joint replacement status (Z96.649) Active confirmed Problem Leukocytosis (623453406) Leukocytosis, unspecified (D72.829) Active confirmed Problem Spondylolisthesis (992336305) Spondylolisthesis (M43.10) Active confirmed Problem Aortic valve sclerosis (51807568) Aortic valve sclerosis (I35.8) Active confirmed Problem Postprocedural states (657195930) History of back surgery (Z98.890) Active confirmed Problem Mixed incontinence (180424123) 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.46) Active confirmed Problem Calcific coronary arteriosclerosis (36271705) Calcific coronary arteriosclerosis (I25.10) Active confirmed Problem Arthralgia of temporomandibular joint (82419697) 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) Active confirmed Problem Pedal edema (625017493) Pedal edema (R60.0) Active confirmed Problem Moderate persist ent asthmatic bronchitis with exacerbation (J45.41) Active confirmed Problem History of colorectal cancer (6554556460) History of colorectal cancer (Z85.038) Active confirmed Problem Cyanosis (0172334) Extremity cya nosis (R23.0) Active confirmed Problem Breast implant rupture, initial encounter (T85.43XA) Active confirmed Problem Breast implant rupture, subsequent encounter (T85.43XD) Active confirmed Problem Chronic gastric ulcer with perforation but without obstruction (32263674) Gastric perforation (K25.5) Active confirmed Vital Signs Heart Rate 91 /min 04/12/2025 Blood pressure diastolic 70 mm Hg 04/12/2025 Height 66 in 04/12/2025 Blood pressure systolic 110 mm Hg 04/12/2025 Weight 143.4 lbs 04/12/2025 BMI 23.14 kg/m2 04/12/2025 Encounters Encounter Location Date Provider Diagnosis [facility] [address] [id number] 05/28/2024 Kathryn Angeles Essential hypertensi on I10 ; Other chronic pain G89.29 ; Centrilobular emphysema J43.2 ; Persistent cough R05.3 and Actinic keratosis L57.0 [facility] [address] [facility] [address] [id number] 08/06/2024 Kathryn Angeles Persistent cough R05 .3 [facility] [address] [facility] [address] [id number] 08/27/2024 Kathryn Angeles [facility] J40 [facility] [address] [facility] [address] [id number] 09/07/2024 J Gabriel Angeles Essential hypertensi on I10 ; Bronchitis J40 ; Diverticulitis K57.92 and Bandemia D72.825 [facility] [address] [place], [place] [id number] 09/21/2024 Kathryn Angeles Essential hypertensi on I10 ; Centrilobular emphysema J43.2 and Bandemia D72.825 [facility] [address] [place], [place] [id number] 11/23/2024 Kathryn Angeles Hair loss L65.9 and Essential hypertension I10 [facility] [address] [place], [place] [id number] 02/01/2025 Kathryn Angeles Symptomatic cholelithiasis K80.20 [facility] [address] [facility] [address] [place], [place] [id number] 03/29/2025 Kathryn Angeles Essential hypertensi on I10 ; Status post cholecystectomy Z90.49 ; Other chronic pain G89.29 ; Centrilobular emphysema J43.2 ; History of colorectal cancer Z85.038 and BMI 24.0-24.9, adult Z68.24 [facility] [address] [place], [place] [id number] 04/12/2025 Juani Saleem Chronic hypokalemia E87.6 ; Leukocytosis D72.829 ; Acute gastric ulcer with both hemorrhage and perforation K25.2 ; Essential hypertension I10 ; Mixed hyperlipidemia E78.2 ; Dercums disease E88.2 ; History of colorectal cancer Z85.038 ; Other chronic pain G89.29 ; Mixed stress and urge urinary incontinence N39.46 ; Postop check Z09 ; Pulmonary atelectasis J98.11 and BMI 23.0-23.9, adult Z68.23 [facility] [address] [place], [place] [id number] 01/14/2025 Kathryn Angeles Dyspepsia R10.13 ; Centrilobular emphysema J43.2 and BMI 25.0-25.9,adult Z68.25 [facility] [address] [place], [place] [id number] 2024 Kathryn Angeles [facility] [address] [place] [id number] 2024 J Gabriel Angeles [facility] [address] [place], [place] [id number] 2024 J Gabriel Angeles [facility] [address] [place], [place] [id number] 08/11/2024 Kathryn Angeles [facility] [address] [place] [id number] 08/19/2024 Kathryn Angeles Essential hypertensi on I10 [facility] [address] [place], [place] [id number] 08/25/2024 J Gabriel Angeles [facility] [address] [place] [id number] 08/28/2024 Kathrny Angeles [facility] [address] [place] [id number] 09/24/2024 Kathryn Angeles [facility] [address] [place] [id number] 01/22/2025 J Gabriel Angeles [facility] [address] [place] [id number] 02/05/2025 J Gabriel Angeles [facility] [address] [place] [id number] 04/09/2025 Kathryn Angeles [facility] [address] [place], [place] [id number] 04/12/2025 Juani Saleem Chronic hypokalemia E87.6 [facility] [address] [place], [place] [id number] 04/19/2025 Kathryn Angeles Assessments Encounter Date Diagnosis (ICD Code) Assessment Notes Treatment Notes Treatment Clinical Notes Section Notes 05/28/2024 Essential hypertension (ICD-10 - I10) I [...] 03/29/2025 Status post cholecystectomy (ICD-10 - Z90.49) 04/12/2025 Leukocytosis (ICD-10 - D72.829) 04/12/2025 Chronic hypokalemia (ICD-10 - E87.6) She will see Dr. Mackay for staple removal. She is to continue doing what she is doing. No lifting over 10lbs. Continue diet she is on with small meals throughout the day. Checking labs today to make sure Potassium is OK and CBC. Would like to see her in 3 weeks to check her WBCs. 04/12/2025 Chronic hypokalemia (ICD-10 - E87.6) 04/12/2025 Acute gastric ulcer with both hemorrhage and perforation (ICD-10 - K25.2) 03/29/2025 Other chronic pain (ICD-10 - G89.29) 01/14/2025 BMI 25.0-25.9,adult (ICD-10 - Z68.25) 09/21/2024 Bandemia (ICD-10 - D72.825) 05/28/2024 Centrilobular emphysema (ICD-10 - J43.2) 09/07/2024 Diverticulitis (ICD-10 - K57.92) 09/07/2024 Bandemia (ICD-10 - D72.825) 05/28/2024 Persistent cough (ICD-10 - R05.3) 03/29/2025 Centrilobular emphysema (ICD-10 - J43.2) 04/12/2025 Essential hypertension (ICD-10 - I10) 04/12/2025 Mixed hyperlipidemia (ICD-10 - E78.2) 03/29/2025 History of colorectal cancer (ICD-10 - Z85.038) 05/28/2024 Actinic keratosis (ICD-10 - L57.0) 03/29/2025 BMI 24.0-24.9, adult (ICD-10 - Z68.24) 04/12/2025 Dercums disease (ICD-10 - E88.2) 04/12/2025 [...] counseling provided. Moderate Complexity Plan Of Treatment Pending Test Test Name Order Date LC-Carcinoembryonic Antigen 05/30/2021 Next Appt Details Provider Name:Kathryn Pennington , 05/03/2025 01:45:00 PM, [address], [place], [id number], Provider Name:Kathryn Pennington , 05/31/2025 04:00:00 PM, [address], [address], [place], [place], [id number], Insurance Providers Payer Name Payer Address Payer Phone Subscriber Number Group Number Insured Name Patient Relationship to Insured Coverage Start Date Coverage End Date MEDICARE PART B [address] [address] [place] [address] [id number] FARZADGODWIN BangBAMBI Self - patient is the insured [employer] SU[employer]MENT [address] [address] [place], [place] [phone] [id number] BAMBI EAST Self - patient is the [...] (ref 0.0-4.6) 03/17/19 Colonoscopy, Dr. Frazier 09/10/2019 Lap shannan/Dr. Frazier 03/25/2025 perforated prepyloric gastri c ulcer with repair using a Josh patch/ Dr. Patino 04/01/2025 Hospitalization History Reason Date(Month/Year) [facility] with perforated ulcer with repair wi th Josh patch/Dr. Patino 04/01-04/08/2025 [facility] ER-fall 06/06 kidney stone 02/2011
[2025-04-22] MEDS: SODIUM CHLORIDE 0.9% 10ML SYR (RAD ONLY) 10 ML IV (14:01)
[2025-04-22] MEDS: IOPAMIDOL-370 (76%);100ML BOTTLE 75 ML IV (14:01)
--- NOTE | 2025-04-22 14:15 | CT_ITS ---
FINAL REPORT TECHNIQUE: After the administration of intravenous contrast, axial images through the chest were performed by computed tomography.This study was performed with techniques to keep radiation doses as low as reasonably achievable, (ALARA). Individualized dose reduction techniques using automated exposure control or adjustment of mA and/or kV according to the patient''s size were employed. CLINICAL HISTORY: evaluation for treatment COMPARISON: 08/24/2024 FINDINGS: There is no axillary adenopathy. There is no hilar or mediastinal adenopathy. The heart size is normal. Again identified are bilateral breast prostheses with bilateral implant rupture. Findings are stable since prior. There is no pericardial or pleural effusion. There are changes of emphysema. The lungs are otherwise clear. The sagittal images are incompletely imaged but there is possibly a new very small hernia inferior to the xiphoid containing fat and small amount of fluid. IMPRESSION: No acute intrathoracic abnormality. Stable bilateral breast prostheses with bilateral extracapsular rupture. Sagittal images are incompletely imaged but there is likely a small ventral hernia inferior to the xiphoid. Reviewed, Interpreted and Dictated by Annalise Mayo MD Transcribed by Paz Martinez Authenticated and [facility]
== END 2025-04-22 23:59 | disposition home or self-care (01) ==
LOC: RAD 13:32
PROVIDERS: PCP Family Medicine; Visit Provider Internal Medicine Medical Oncology
DX: C23 Malignant neoplasm of gallbladder (principal); T85.898A Other specified complication of other internal prosthetic devices, implants and grafts, initial encounter; R93.89 Abnormal findings on diagnostic imaging of other specified body structures; Z98.82 Breast implant status
CPT/HCPCS: 71260; Q9967

== ENCOUNTER 2025-07-20 08:30 | Outpatient (RCR) | payer MEDICARE, OTHER, SELFPAY ==
--- NOTE | 2025-07-14 16:49 | HMH.PTOPEV ---
PT Evaluation Rehab PT Outpatient Evaluation Start: 07/14/25 16:35 Freq: Status: Active Protocol: Document 07/14/25 16:36 FRANCISCO (Rec: 07/14/25 16:49 FRANCISCO [id number]) E-signed By Garrett Reich, PT Outpatient Therapy Subjective History Subjective History This is the initial PT evaluation for Alyssia Holly, 74 yowf who presents with c/o general weakness due to multiple recent surgeries and recent cancer diagnosis. She reports undergoing a CCY 03/25/25, then suffered a perforated ulcer requiring laparotomy surgery 04/01/25, then undergoing partial liver removal 05/31/25 due to findings of gall bladder cancer. She reports, The doctor says I need to get stronger before I can get the chemotherapy I need. She reports general weakness and lack of endurance with all daily activities, but most specifically with household care and grocery shopping. She reports fatigue is significantly increased by mid- day requiring her to rest the entire afternoon. New diagnosis of Yes cancer in past 12 months? Chief Complaint Weakness Symptoms Relieved By Rest/Positioning Symptoms Aggravated Physical Activity By Prior Functional None Limitations Current Functional Lifting,Housework,Recreation Activity,Walking,Bending/ Limitations Stooping Symptom Description Activity Dependent Level of pain today 0 (0-10) PT Balance Eval Posture and Alignment Static Standing Kyphotic Posture: Weight-bearing Symmetrical Symmetry: Gait Assessment Assistive Device: None Gait Pattern: Normal Gait Deviations Slow gait with decreased step height B Noted: Dynamic Balance Tandem Walk: Impaired Turning 360 Degrees: Unsteady Timed Up and Go (TUG 11 ) in seconds: Five Times Sit-to- 21 Stand (5xSTS) in seconds: Neuromuscular Assessment Coordination: Normal Pproprioception ( Intact Great Toe): Light Touch Intact Sensation (LE): Strenth (LE)-MMT Hip Flexors Right 2+/5 Hip Flexors Left 2+/5 Knee Extensors Right 4/5 Knee Extensors Left 4/5 Ankle Dorsiflexors 4/5 Right Ankle Dorsiflexors 4/5 Left Ankle Plantarflexors 4/5 Right Ankle Plantarflexors 4/5 Left Functional Mobility Transfers: Independent Bed Mobility: Independent Stairs: Independent Dynamic Gait Index Test Protocol Gait Level Surface Mild Impairment Query Text: Instructions: Walk at your normal speed from here to the next paula (20'). Grading: Paula the lowest category that applies. Change in Gait Speed Normal Query Text: Instructions: Begin walking at your normal pace (for 5') , when I tell you go , walk as fast as you can (for 5'). When I tell you slow , walk as slowly as you can ( for 5'). Grading: Paula the lowest category that applies. Gait with Horizontal Mild Impairment Head Turns Query Text: Instructions: Begin walking at your normal pace. When I tell you to look right , keep walking straight, but turn you head to the right. Keep looking to the right unit I tell you look left , then keep walking straight and turn your head to the left. Keep your head to the left until I tell you look straight , then keep walking straight, but return you head to the center. Grading: Paula the lowest category that applies. Gait with Vertical Mild Impairment Head Turns Query Text: Instructions: Begin walking at your normal pace. When I tell you to look up , keep walking staight, but tip your head up. Keep looking up until I tell you to look down , then keep walking straight and tip your head down. Keep your head down until I tell you look straight , then keep walking straight, but return your head to the center. Grading: Paula the lowest category that applies. Gait and Pivot Turn Mild Impairment Query Text: Instructions: Begin walking at your normal pace. When I tell you turn and stop , turn as quickly as you can to face the opposite direction and stop. Grading: Paula the lowest category that applies. Step Over Obstacle Mild Impairment Query Text: Instructions: Begin walking at your normal speed. When you come to the shoebox, step over it, not around it and keep walking. Grading: Paula the lowest category that applies. Step Around Normal Obstacles Query Text: Instructions: Begin walking at normal speed. When you come to the first cone (about 6' away) , walk around the right side of it. When you come to the second cone (6' past first cone), walk around it to the left. Grading: Paula the lowest category that applies. Steps Moderate Impairment Query Text: Instructions: Walk up these stairs as you would at home. At the top, turn around and walk down . Grading: Paula the lowest category that applies. Scoring Dynamic Gait Index 17 Score Miscellaneous Dx PT Eval Objective Objective B LE hip ABD MMT 2+/5 Outpatient Therapy Assessment Impairments Problems/ Impaired Strength,Impaired Endurance,Impaired Gait Impairmments Pattern,Impaired Walking,Impaired Standing,Impaired Lifting,Impaired Shower/Bathing,Impaired Household Care ,Impaired Stair Climbing,Impaired Incline Stepping, Impaired Stepping on Uneven Surface,Impaired Recreational Activities,Impaired Balance,Impaired DGI Score,Impaired Self Care/Self Management Prognosis Rehab Potential Good Comment Skilled therapy is indicated to improve B LE MMT and increase general endurance to activity in order to aid pt improvement in overall QOL. Clinical Impression Consistent with Yes Diagnosis PT Patient Goals PT Patient Goals PT Short Term In 2 wks pt will complete these goals in order to aid Patient Goals improvement in function specifically with all ADLs: 1) Improve B LE MMT to 3+/5 at least throughout 2) Improve DGI score to 19 or better 3) Decrease TUG time to 10 sec or less 4) Decrease 5TSTS time to 19 or less PT Senior Care Patient In 4 wks pt will complete these goals in order to aid Goals improvement in function specifically with all ADLs: 1) Improve B LE MMT to 4+/5 at least throughout 2) Improve DGI score to 22 or better 3) Decrease TUG time to 8 sec or less 4) Decrease 5TSTS time to 15 or less 5) Ambulate > 15 min consecutively without c/o fatigue. Outpatient Therapy Plan of Care Treatment Plan May Include Therapeutic Exercise Yes Including Home Exercise Program Manual Therapy Yes Techniques Neuromuscular Re- Yes education Therapeutic Yes Activities to Return to Previous Functional/Work Level Gait Training Yes ADL/Self Care Yes Education Eval/Re-Eval Yes Frequency Times per week 2 Duration Number of Weeks 4 Addendums This patient is a No candidate for social or vocational rehab ? Patient/Guardian Yes verbally acknowledges understanding of treatment program and consents to further treatment? Patient/Guardian Yes verbally acknowledges understanding of diagnosis, prognosis and goals for treatment? Eval Complexity PT Charges 18425 - High Complexity Shoulder/Elbow Eval Shoulder Objective Measurements Elbow Objective Measurements PHYSICIAN CERTIFICATION: I certify the specified therapy services for Alyssia Holly are required, authorized, and reviewed every 30 days.
== END 2025-07-20 23:59 | disposition home or self-care (01) ==
LOC: PT 08:30
PROVIDERS: PCP Family Medicine; Visit Provider Internal Medicine Medical Oncology
DX: R53.1 Weakness (principal)
CPT/HCPCS: 97110; 97112; 97163; 97530

== ENCOUNTER 2025-07-22 09:06 | Outpatient (CLI) | payer MEDICARE, OTHER, SELFPAY ==
--- OUTSIDE RECORDS SUMMARY | 2025-05-25 11:10 | XMS_ITS | Encounter Summary ---
Author Organization Healthcare Address [address] [place] [address] Care Team Providers Care Mechanics Supervisor Name Role Phone Efrain Angeles MD Primary Care Provider [phone] Reason for Visit * Reason Comments Follow-up Encounter Details Date Type Department Care Team (Latest Contact Info) Description 05/25/2025 11:10 AM EDT Office Visit [facility] Multidisciplinary Oncology Clinic [address] [place] [address] Steve Veloz MD [address] [address] Gallbladder cancer (CMS/HCC) (Primary Dx) Social History Tobacco Use Types Packs/Day Years Used Date Smoking Tobacco: Never Smokeless Tobacco: Never Alcohol Use Standard Drinks/Week Comments No 0 (1 standard drink = 0.6 oz pur e alcohol) PHQ-2 Answer Date Recorded Patient Health Questionnaire-2 Score 0 05/25/2025 Humiliation, Afraid, Rape, and Kick questionnair e Answer Date Recorded Within the last year, have y ou been afraid of your partner or ex-partner? No 06/01/2025 Within the last year, have y ou been humiliated or emotionally abused in other ways by your partner or ex-partner? No Within the last year, have y ou been kicked, hit, slapped, or otherwise physically hurt by your partner or ex-partner? No 06/01/2025 Within the last year, have y ou been raped or forced to have any kind of sexual activity by your partner or ex-partner? No 06/01/2025 Hunger Vital Sign Answer Date Recorded Within the past 12 months, y ou worried that your food would run out before you got the money to buy more. Never true 06/01/20 25 Within the past 12 months, t he food you bought just didn't last and you didn't have money to get more. Never true 06/01/2025 PRAPARE - Transportation Answer Date Re corded In the past 12 months, has l ack of transportation kept you from medical appointments or from getting medications? No 05/2025 In the past 12 months, has l ack of transportation kept you from meetings, work, or from getting things needed for daily living? No 06/01/2025 Housing Stability Vital Sign Answer Jm e Recorded In the last 12 months, was t here a time when you were not able to pay the mortgage or rent on time? No 06/01/2025 In the past 12 months, how m any times have you moved where you were living? 0 06/01/2025 At any time in the past 12 m [facility] [place] were you homeless or living in a [facility] (including now)? No 06/01/2025 [facility] Utilities Answer Date Recorded In the past 12 months has th e electric, gas, oil, or water company threatened to shut off services in your home? No 06/01/2025 Comments No Sex and Gender Information Value Date Recorded Sex Assigned at Female 05/31/2025 10:07 AM EDT Legal Sex Female 6:24 PM EDT Gender Identity Female 05/31/2025 10:07 AM EDT Sexual Orientation Not on file documented as of this encounter Last Filed Vital Signs Vital Sign Reading Time Taken Comments Blood Pressure 102/65 05/25/2025 10:47 AM EDT Pulse 89 05/25/2025 10:47 AM EDT Temperature 37.3 C (99.1 F) 05/25/2025 10:47 AM EDT Respiratory Rate - - Oxygen Saturation 95% 05/25/2025 10:47 AM EDT Inhaled Oxygen Concentration - - Weight 64.5 kg (142 lb 3.2 oz) 05/25/2025 10:47 AM EDT Height 165.1 cm (5' 5 ) 05/25/2025 10:47 AM EDT Body Mass Index 23.66 05/25/2025 10:47 AM EDT documented in this encounter Functional Status * Over the past 2 weeks, how often have you been bothered by any of the following problems? Question Answer Date of Assessment Author Little interest or pleasure in doing things Not at all 05/25/2025 10:53 AM EDT Dorie Banrett Feeling down, depressed, or hopeless Not at all 05/25/2025 10:53 AM EDT Dorie Barnett Patient Health Questionnaire -2 Score 0 05/25/2025 10:53 AM EDT Dorie Barnett * Question Answer Date of Assessment Author Thoughts that you would be b davon off or hurting yourself in some way Not at all 05/25/2025 10:53 AM EDT Dorie Barnett * Calculated C-SSRS Risk Score (Lifetime/Recent) Answer Date of Assessment Author No Risk Indicated 06/03/2025 8:00 AM EDT Suyapa Washington * Question Answer Date of Assessment Author 1. Wish to be (Past 1 Month) No 025 8:00 AM EDT Suyapa Washington 2. Non-Specific Active Suici nelda Thoughts (Past 1 Month) No 06/03/2025 8:00 AM EDT Geronimo Washington on 6. Suicidal Behavior (Lifetime) No 5 8:00 AM EDT Suyapa Washington documented as of this encounter Miscellaneous Notes * Progress Notes - Ismael Bowie MD - 05/25/2025 11:10 AM EDT Surgical Oncology Outpatient Progress note Chief complaint: follow-up History of Present Illness: Alyssia Holly is a 74yF w/ PMHx significant for colon cancer, hypertension, kidney stones, and cholecystitis who presents for pre-operative visit. Full treatment history below, but in short, patient had cholecystectomy (03/25/25) w/ resulting pathology showing pT2 disease. Her recovery was complicated by gastric perforation now s/p patient underwent laparotomy with repair of pre-pyloric gastric ulcer using omental pedicle patch (04/01/25). MRI completed since last visit. Today, patient notes complete resolution of abdominal pain and bloating. Her biggest complaint since surgery has still been fatigue. She is able to tolerate a regular diet and regular activity. She denies any changes to her b owel function. She denies weight loss. She denies any tobacco use, alcohol use, and illegal drug abuse. Patient notes no other concerns today. Treatment History: 2010: Diagnosed with colon cancer and underwent surgical resection with no adjuvant therapy. Last colonoscopy July 2023 is unremarkable. Follows with Dr. Ebony Albrecht annually and medical oncology clinic at [facility]. 03/01/2025: CT scan of abdomen and pelvis performed for bloating symptoms revealed gallbladder mildlydistended with wall of the gallbladder slightly irregular and slightly denser than usual after interviewing felt to be of uncertain significance including potential inflammatory change. No abnormalities in the liver lymph nodes. For to general surgeon for cholecystectomy. 03/25/25: Patient underwent cholecystectomy with no intraoperative concern for potential malignancy. Pathology was sent to [facility] which noted small area of adenocarcinoma with invasion into the perimuscular connective tissue in the background mucosa extensive dysplasia. It is unclearwhether the perimuscular invasion was on the peritoneal versus hepatic side so can not clarify whatpT2 subcategory. The cystic duct margin was negative for carcinoma and dysplasia and perineural invasion was not identified though there was 1 focus of neoplastic cells suspicious for lymph vascular invasion. One pericystic lymph node was negative for metastatic carcinoma. 04/01/25: Presented to the ED with worsening abdominal pain. Patient underwent CT scan which was consistent with perforated gastric ulcer with significant bowel wall thickening and gastric antrum antrum with at least 2 large ulcers. No other abnormalities noted 04/01/2025: Patient underwent laparotomy with repair of pre-pyloric gastric ulcer using omental pedicle patch. Patient was ultimately discharged April 08 in stable condition. 04/21/25: Initial consult with Dr. López medical oncology at [facility]. Patient appears to have stage IIA or 2B disease. Patient had lab work including CA [address] was also ordered to rule out any distant metastases. Plan is that if all testing is unremarkable she will be referred to [facility] cancer clinic for surgical evaluation. Referred to Surgical Oncology at [facility]. 05/11/25: SurgOnc Consult. Ca19-9 39.5. Discussed with the patient regarding gallbladder cancer and surgical resection. Discussed with the patient that pathology placed her at pT2 disease. Discussed that surgery could be indicated and PT to disease especially in this patient's case were very muscular invasion was on peritoneal or hepatic side is uncertain. Patient is very interested in the surgical resection. Discussed with the patient the plan for if which would include an MRI of the abdomen and discussing the patient's case in front of our tumor board. Once these are complete we will have a final plan. 05/12/25 MRCP: No definite evidence of metastatic disease in the abdomen. Smooth, diffuse enhancement of the liver capsule may be secondary to recent surgical intervention or reactive from the inflammatory changes within the gastric pylorus. No discrete nodularity to suggest carcinomatosis. 05/25/25 follow-up - plan for dx lap, open partial hepatectomy, portal LND on 05/31/25. Past Medical History: Past Medical History: Diagnosis Date Personal history of other diseases of the circulatory system History of hypertension Personal history of urinary calculi Personal history of renal calculi Past Surgical History: Past Surgical History: Procedure Laterality Date BREAST AUGMENTATION Bilateral 1978 CATARACT EXTRACTION N/A Cataract Surgery from [facility] CHOLECYSTECTOMY N/A Cholecystectomy from [facility] HIP ARTHROPLASTY Bilateral LUMBAR FUSION L4-L5 NASAL SEPTUM SURGERY N/A Nasal Septal Deviation Repair from [facility] OTHER SURGICAL HISTORY N/A Percutaneous Lithotomy from [facility] OTHER SURGICAL HISTORY gastric ulcer perferation RIGHT COLECTOMY TONSILLECTOMY N/A Tonsillectomy from [facility] Social History: Tobacco: Tobacco Use: Low Risk (05/25/2025) Patient History Smoking Tobacco Use: Never Smokeless Tobacco Use: Never Passive Exposure: Not on file Alcohol: Alcohol Use: Not on file Illicit drug use: Social History Substance and Sexual Activity Drug Use Never Allergies: Allergies[1] Family Medical History: family history is not on file. Home Medications: Prior to Admission medications Medication Sig Start Date End Date Taking? Authorizing Provider albuterol 108 (90 Base) MCG/ACT inhaler INHALE 2 PUFFS BY MOUTH 4 TIMES DAILY NEEDED Yes Provider, Historical Aspirin 81 MG capsule 81 mg 1 (one) time each day. Yes Provider, Historical fluticasone-salmeterol (Advair Diskus) 100-50 MCG/ACT diskus inhaler 1 puff as needed. 08/06/24 YesProvider, Historical losartan (Cozaar) 50 MG tablet Take 0.5 tablets by mouth Daily. 03/19/24 Yes Provider, Historical oxybutynin XL (Ditropan-XL) 15 MG 24 hr tablet Take 1 tablet by mouth daily. Yes Provider, Historical pantoprazole (Protonix) 40 MG EC tablet Take 1 tablet by mouth nightly. 04/07/25 Yes Provider, Historical potassium chloride CR (Klor-Con) 10 MEQ ER tablet 1 tablet. 03/19/24 Yes Provider, Historical rosuvastatin (Crestor) 10 MG tablet Take 1 tablet by mouth 3 times a week. Takes --03/19/24 Yes Provider, Historical triamterene-hydrochlorothiazide (Maxzide-25) 37.5-25 MG tablet Take 0.5 tablets by mouth daily. YesProvider, Historical Vibegron (Gemtesa) 75 MG tablet Take 1 tablet by mouth Daily. 03/19/24 Yes Provider, Historical Review of Systems: 14 ROS was conducted and is otherwise negative unless noted in HPI. Physical exam: GENERAL: WD, WN, NAD. EYES: No scleral icterus or conjunctivitis HENT: Atraumatic, normocephalic, nares patent, mucus membranes moist NECK: Supple, no JVD, no evidence of bruit bilaterally RESP/CHEST: Symmetric expansion; non labored. CTA bilaterally. CARD: Regular rate and rhythm, no murmur Extremities: No cyanosis or clubbing. Pedal pulses palpable +2. GI: No organomegaly or masses. Soft, Nontender, nondistended. Healed midline incision SKIN: No rash, sores, lesions or subcutaneous nodules. NEURO: AAOx4. Motor intact and no focal deficits PSYCH: Mood and affect congruent and appropriate to situation. Objective: All laboratory, images, tracings, and vital sign data are personally reviewed unless otherwise noted. VITALS Visit Vitals BP 102/65 Pulse 89 Temp 37.3 ??C (99.1 ??F) Ht 1.651 m (5' 5 ) Wt 64.5 kg (142 lb 3.2 oz) SpO2 95% BMI 23.66 kg/m?? LABS Lab Results Component Value Date WBC 11.51 (H) 05/11/2025 HGB 12.5 05/11/2025 HCT 38.8 05/11/2025 PLT 315 05/11/2025 NA 139 05/11/2025 K 3.8 05/11/2025 CL 103 05/11/2025 CO2 25 05/11/2025 BUN 11 05/11/2025 CREATININE 0.55 (L) 05/11/2025 GLUCOSE 111 (H) 05/11/2025 CALCIUM 9.6 05/11/2025 Lab Results Component Value Date TP 6.8 05/11/2025 ALBUMIN 4.0 05/11/2025 AST 28 05/11/2025 ALT 16 05/11/2025 BILITOT 0.3 05/11/2025 ALKPHOS 121 05/11/2025 Lab Results Component Value Date APTT 26 05/11/2025 INR 1.0 05/11/2025 Lab Results Component Value Date PREALBUMIN 22.7 05/11/2025 Lab Results Component Value Date CEA 3.4 04/03/2024 CEA 4.6 03/29/2023 CEA 4.2 03/23/2022 No results found for: CA19 Lab Results Component Value Date CA199 39.5 (H) 05/11/2025 Radiographics/Diagnostics: 05/12/25 MRCP: No definite evidence of metastatic disease in the abdomen. Smooth, diffuse enhancement of the liver capsule may be secondary to recent surgical intervention or reactive from the inflammatory changes within the gastric pylorus. No discrete nodularity to suggest carcinomatosis. Pathology: Final Diagnosis (no units) Date/Time Value 05/05/20251324 GALLBLADDER, SIMPLE CHOLECYSTECTOMY (OUTSIDE CASE: [id number] COLLECTED ON 03/25/2025): - INVASIVE WELL-DIFFERENTIATED ADENOCARCINOMA, FUNDUS/BODY (APPROX. 1.2 CM IN SIZE, PER REPORT) - TUMOR ARISING IN A BACKGROUND OF EXTENSIVE LOW AND HIGH-GRADE GLANDULAR DYSPLASIA - INVASIVE GLANDS AND MUCIN FOCALLY EXTEND INTO PERIMUSCULAR CONNECTIVE TISSUE (SEE COMMENT) - CYSTIC DUCT MARGIN OF RESECTION IS NEGATIVE FOR CARCINOMA/DYSPLASIA - SINGLE BENIGN PERICYSTIC LYMPH NODE (0/1) Comment (no units) Date/Time Value 05/05/20251324 The specific location of perimuscular invasion (peritoneal or hepatic) is unable to be determined. In the provided planes of section, the perimuscular soft tissue margins appear to be uninvolved by carcinoma. There is no evidence of perineural invasion, however, an area suspicious for lymphovascular invasion is seen. Assessment & Plan: 74yF w/ PMHx significant for colon cancer, hypertension, kidney stones, and cholecystitis who presents for pre-operative visit. Full treatment history below, but in short, patient had cholecystectomy(03/25/25) w/ resulting pathology showing pT2 disease. Her recovery was complicated by gastric perforation now s/p patient underwent laparotomy with repair of pre-pyloric gastric ulcer using omental pedicle patch (04/01/25). MRI completed since last visit showing no other disease. We will proceed to the operating room 05/31/25 for diagnostic laparoscopy. This is to make sure that the planes to remove the rest of the area are not scarred down due to recent gastric perf surgery. If no significant scarring, we will proceed with open hepatectomy and LN dissection. If scarring, we will plan for outpatient therapy with oncology. Consent was signed at the clinic visit. I discussed with the patient the risks, benefits, and alternatives of liver resection, specifically, bleeding, infection, postoperative liver failure, bile leak, injury to adjacent structures including the biliary tree, vasculature, pancreas, bowel, stomach, or diaphragm. We discussed the risk of cardiopulmonary complications, stroke, and . After this discussion the patient agreed to the procedure. Ismael Bowie MD 05/25/25 1:54 PM I saw and evaluated the patient with the resident/fellow. I discussed the case with the resident/fellow and agree with the findings and plan as documented. Steve Veloz MD [1] Allergies Allergen Reactions Other Swelling Aerosol disinfectant- especially Lysol Nickel Rash Cosigned by Steve Veloz MD at 06/03/2025 2:09 PM EDT documented in this encounter Plan of Treatment Not on file documented as of this encounter Procedures Procedure Name Priority Date/Time Associated Diagnosis Comments ECG ADULT Routine 05/25/2025 12:16 PM EDT Gallbladder cancer (CMS/HCC) documented in this encounter Results * ECG Adult (Now - Performed in your clinic) (05/25/2025 12:16 PM EDT) EKG DIAGNOSIS CLASS Borderline Abnormal MUSE ECG Ventricular Rate 77 BPM MUSE ECG Atrial Rate 77 BPM MUSE ECG OK Interval 174 ms MUSE ECG QRSD Interval 90 ms MUSE ECG QT Interval 402 ms MUSE ECG QTC Interval 454 ms MUSE ECG P [place] 63 degrees MUSE ECG R [place] 39 degrees MUSE ECG T Wave [place] 50 degrees MUSE ECG Diagnosis Poor data quality, interpretation may be adversely affected MUSE ECG Diagnosis Normal sinus rhythm MUSE ECG Diagnosis Low voltage QRS MUSE ECG Diagnosis Borderline ECG MUSE ECG Diagnosis MUSE ECG Diagnosis Confirmed by Manohar Seaman ([id number]) on 05/25/2025 1:15:09 PM MUSE ECG 05/25/2025 12:1 6 PM EDT 05/25/2025 1:15 PM EDT us Steve Veloz MD ECG ORDERABLES Final Result MUSE ECG documented in this encounter Visit Diagnoses Diagnosis Gallbladder cancer- Primary Malignant neoplasm of gallbladder documented in this encounter Additional Health Concerns Assessment Noted Time A fall risk assessment has been complete d for the patient 05/25/2025 10:53 AM EDT A Body Mass Index follow-up plan has been documented for the patient 06/03/2025 2:09 PM EDT documented as of this encounter Care Teams Mechanics Supervisor Relationship Specialty Start Date End Date Efrain Angeles MD [address] [place], [place] [address] PCP - General 04/03/24 documented as of this encounter
--- OUTSIDE RECORDS SUMMARY | 2025-05-25 13:00 | XMS_ITS | Encounter Summary ---
Author Organization [facility] Address [address] [place] [address] Care Team Providers Care Audit Practice Intern Name Role Phone Efrain Angeles MD Primary Care Provider [phone] Encounter Details Date Type Department Care Team (Latest Contact Info) Description 05/25/2025 1:00 PM EDT Pre-Admission Testing [facility] [address], [address] [place] [id number] Preop examination (Primary Dx) Anesthesia Record Procedure Summary Procedure Name Responsible Anesthesiologist Anesthesia Start Time Anesthesia Stop Time open partial hepatectomy, lymph node dissection Matteo Quiros MD 05/31/25 1323 05/31/25 1655 Events Date Time Event Comment 05/31/2025 1321 In Room 1323 An Start The patient was reevaluated immediately before sedation and remains eligible for anesthesia plan. 1323 ANPATVER 1324 An Start Data 1326 An Induction The patient was reevaluated immediately before moderate or deep sedation use and before anesthesia induction. 1328 An Intubation 1345 Anesthesia Ready 1406 Proc Start 1635 Proc Fin 1641 An Extubation 1644 an stop data 1645 Out of Room 1648 Handoff to Receiving I compl eted my handoff to the receiving clinician during which we: 1. Identified the patient 2. Identified the responsible provider 3. Reviewed the pertinent medical history 4. Discussed the surgical course 5. Reviewed intra-op anesthesia management and issues during anesthesia 6. Set expectations for post-procedure period 7. Allowed opportunity for questions and acknowledgement of understanding. 1655 An Stop Meds * Agents No agents on file. * Blood No blood administrations on file. Lines, Drains, and Airways Type Details Placement Removal Wound 05/31/25; 1416; N; Y es; Surgical; Open Surg; Abdomen; Upper 05/31/25 1416 by Yoan Schilling RN Peripheral IV Placement Date: 05/17; Placement Time: 1029; Catheter Size: 18 G; Orientation: Left; Location: Antecubital; Site Prep: Chlorhexidine ; Local Anesth: [place]; Technique: Anatomical landmarks; Inserted by: llay; Insertion Attempts: 1; Patient Tolerance: Tolerated well; Removal Date: 06/03/25; Removal Time: 1819; Removal Reason: Catheter damage 05/31/25 1029 by Moy Varma RN 06/03/25 1819 by Suyapa Washington Epidural Placement Date: 05/17; Placement Time: 1112 (created via procedure documentation); Removal Date: 06/06/25; Removal Time: 1400 05/31/25 1112 by Willie Callahan MD 06/06/25 1400 by Bonnie Schumacher RN ETT Placement Date: 05/17; Placement Time: 1328 (created via procedure documentation); Mask Ventilation: 2; Technique: Direct laryngoscopy; Type: ETT - single; Single Lumen Tube Size: 7.5 mm; Cuffed: Yes; Laryngoscope: Amanda; Blade Size: 3; Location: Oral; Grade View: Grade I; Insertion Attempts: 1; Placement Verification: Auscultation, Capnometry; Airway Comments: Atraumatic. No change to dentition. ; Placed by: Resident ; Removal Date: 05/31/25; Removal Time: 1641 05/31/25 1328 by Sheri Ott DO 05/31/25 1641 by Eduardo James CRNA Urethral Catheter Placement Date: 05/17; Placement Time: 1335; Inserted by: Yoan Schilling RN; Type: Non-latex, Single lumen, Temperature probe; Size: 16 Fr.; Balloon Size: 10 mL; Urine Returned: Yes; Removal Date: 06/02/25; Removal Time: 1000; Removal Reason: Per order 05/31/25 1335 by Yoan Schilling RN 06/02/25 1000 by Rain Resendez Peripheral IV Placement Date: 05/17; Placement Time: 1419 (created via procedure documentation); Catheter Size: 18 G; Orientation: Right; Location: Hand; Technique: Anatomical landmarks; Insertion Attempts: 1; Removal Date: 06/04/25; Removal Time: 919; Removal Reason: Leaking 05/31/25 142 by Sheri Ott, DO 06/04/25 09 by Saniya Dennis RN Arterial Line Placement Date: 05/17; Placement Time: 1420 (created via procedure documentation); Size: 20 G; Orientation: Left; Location: Radial; Inserted by: Resident; Securement: Taped; Removal Date: 05/31/25; Removal Time: 1803; Removal Reason: Per order 05/31/251420 by Sheri Ott, DO 05/31/251803 by Macario Martinez RN documented in this encounter Social History Tobacco Use Types Packs/Day Years Used Date Smoking Tobacco: Never Smokeless Tobacco: Never Alcohol Use Standard Drinks/Week Comments No 0 (1 standard drink = 0.6 oz pur e alcohol) PHQ-2 Answer Date Recorded Patient Health Questionnaire-2 Score 0 05/25/2025 Comments Unknown Sex and Gender Information Value Date Recorded Sex Assigned at Female 05/31/2025 10:07 AM EDT Legal Sex Female 6:24 PM EDT Gender Identity Female 05/31/2025 10:07 AM EDT Sexual Orientation Not on file documented as of this encounter Functional Status * Over the past 2 weeks, how often have you been bothered by any of the following problems? Question Answer Date of Assessment Author Little interest or pleasure in doing things Not at all 05/25/2025 10:53 AM EDT Dorie Barnett Feeling down, depressed, or hopeless Not at all 05/25/2025 10:53 AM EDT Dorie Barnett Patient Health Questionnaire -2 Score 0 05/25/2025 10:53 AM EDT Dorie Barnett * Question Answer Date of Assessment Author Thoughts that you would be b davon off or hurting yourself in some way Not at all 05/25/2025 10:53 AM EDT Dorie Barnett documented as of this encounter Miscellaneous Notes * PAT Evaluation Note - Bonnie Clarke PA - 05/25/2025 1:00 PM EDT Images from the original note were not included. HEMANTH Holly is a 74 y.o. 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 Patient states that she was in her normal state of health until February of this year. She noted shestarted having increased in severe bloating. She presented to her PCP who ordered a CT of the abdomen and pelvis. CT scan revealed gallbladder mildly distended with wall of the gallbladder slightly irregular and slightly denser the usual. Patient was then referred to a general surgeon in [facility] for workup for cholecystitis. On March 25, 2025 patient underwent cholecystectomy with no interoperative concern for potential malignancy. However pathology was also reviewed at the [facility] which noted a small area of adenocarcinoma with invasion into the perimuscular connectivetissue in the background mucosa of extensive dysplasia. Patient then presented to [facility] with worsening abdominal pain and underwent repeat CT scan of the abdomen and pelvis which was consistent with perforated gastric ulcer with significant bowel wall thickening and gastric antrum with at least 2 large ulcers. On April 01, 2025 patient underwent laparotomy with repair of pre-pyloric gastric ulcer using omental pedicle patch. Patient was discharged on April 08. Past Medical History[1] Family History[2] Social History[3] SURGICAL HISTORY: Surgical History[4] Allergies[5] MEDICATIONS: Current Medications[6] ROS Anesthesia: Date of last anesthetic: Most recent anesthesia ~ 04/01/2025 [facility] Repair of perf gastric ulcer history of previous anesthesia. Does not have a history of anesthetic complications, a history awareness of surgery under anesthesia, a history of delayed emergence, malignant hyperthermia, obstructive sleep apnea, PONV and a history of prolonged emergence. Cardiovascular: Does not have angina, CAD, CHF, dysrhythmias, hyperlipidemia, pacemaker or past AK. hypertension: is well controlled. Exercise tolerance is 2 flights of stairs. Does not have chest pain. Cardio additional comments: Denies any active current cardiac complaints. + is hard to be really physical since she has recently had a lap shannan and open perforated gastric ulcer. Respiratory: no asthma: no COPD: Has not had an upper respiratory infection in last 30 days. Has not had bronchitis in the last 30 days, pneumonia in the last 30 days or COVID in the last 30 days. HEENT: Does not have difficulty swallowing.Does not have temporomandibular joint syndrome. hearing loss. HEENT additional comments: + pt with Right black eye because of fall of 05/21/2025 (tripping over things) + needs hearing aides to hear well. Neurological: Does not have headaches. no seizures: Did not have a cerebrovascular accident.Does not have TIA. Musculoskeletal: arthritis. Does not have cervical spine limited mobility. Musc/Skel/Integ additional comments: + DANY THR and spinal fusion L4L5 Gastrointestinal: GERD: well controlled.GI malignancy and PUD. Does not have cirrhosis or hepatitis. 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 + OAB with LUTS Genitourinary: Does not have chronic renal disease.recurrent UTIs and renal calculi (last issue 2010). Does not have renal disease. Hematological/Lymphatic: History of no DVT. History of no pulmonary embolism. no history of chemotherapy no history of radiation Does not have HIV, MRSA or tuberculosis. Hem/Lymph ROS additional comments: + Cervical cancer treated at approximate age 29- cryosurgery Endocrine/Metabolic: does not have diabetes mellitus. Does not have thyroid disorder. 05/25/2025 05/11/2024 Last Cards Note ([facility]): Tachycardic response to flu shot Self-limiting bigeminal PVCs on 48-hour Holter fall 2021 Echo with findings noted below Stress test in the absence of ongoing anginal symptoms but ordered due to above tachycardic response. Abnormal EKG response but negative for ischemia. Small apical infarct pattern thought to be due to breast attenuation, OSH, fall 2021 Abnormal EKG with nonspecific ST abnormality in the inferolateral leads Brother was a heavy smoker, [place] at 38. Sister had congenital heart disease/rheumatic heart disease, CABG at 42 Biatrial enlargement, RV enlargement, grade 1 diastolic dysfunction Echo fall 2021 Right carotid bruit Hypertension Hyperlipidemia Cervical cancer treated at approximate age 29 Colon cancer treated at approximately age 59 Former tobacco use, quit 2003 Palpitations Abnormal EKG Mild biatrial enlargement -No recurrent symptoms -06/2022 stress test was suggestive of attenuation artifact, but overall was a low risk study. Abnormal EKG response likely related to her baseline abnormal EKG. -Due to her stable clinical status, would continue to focus on primary prevention and risk factor modification. Will continue to defer on additional cardiac testing at this current time. If with recurrent symptoms, could consider a heart cath at that time Bruit of right carotid artery -No significant atherosclerosis noted on carotid duplex 07/2022 Essential hypertension -Continue current medications Mixed hyperlipidemia -Continue statin -Patient would like to follow up yearly for now. - Return in about 1 year (around 05/11/2025) for Next follow up with Dr. Correa . 05/2022 ECHO ([facility]): LV EF 55%, grade 1 diastolic dysfunction, mild biatrial enlargement, mild RV enlargement 05/2022 Nuclear Stress Test ([facility]): No angina with exercise. Abnormal EKG response with exercise. No ischemia on myocardial perfusion imaging. Apical defect, fixed, small, thought to be due to breast attenuation Lab Results Component Value Date WBC 11.51 (H) 05/11/2025 HGB 12.5 05/11/2025 HCT 38.8 05/11/2025 MCV 92 05/11/2025 PLT 315 05/11/2025 Lab Results Component Value Date GLUCOSE 111 (H) 05/11/2025 BUN 11 05/11/2025 CREATININE 0.55 (L) 05/11/2025 BCR 20 05/11/2025 NA 139 05/11/2025 K 3.8 05/11/2025 CL 103 05/11/2025 CO2 25 05/11/2025 PROT 6.8 04/03/2024 ALBUMIN 4.0 05/11/2025 ALKPHOS 121 05/11/2025 BILITOT 0.3 05/11/2025 No results found for: HGBA1C Lab Results Component Value Date INR 1.0 05/11/2025 Visit Vitals Smoking Status Never Physical Exam Airway Mallampati: II Mouth opening: normal TM distance: >3 FB Neck ROM: full Cardiovascular Rhythm: regular Rate: normal (-) murmur Dental (+) edentulous, lower dentures, upper dentures Pulmonary Breath sounds clear to auscultation Neurological Oriented: normal to time, normal to person and normal to place Skin Musculoskeletal Extremities Anesthesia Plan ASA 3 Anesthesia technique(s) discussed with the patient/family: general KOFI Mcdermott [1] Past Medical History: Diagnosis Date Personal history of other diseases of the circulatory system History of hypertension Personal history of urinary calculi Personal history of renal calculi [2] Family History Problem Relation Name Age of Onset Anesthesia problems Neg Hx Malig Hyperthermia Neg Hx [3] Social History Tobacco Use Smoking status: Never Smokeless tobacco: Never Vaping Use Vaping status: Never Used Substance Use Topics Alcohol use: No Drug use: Never [4] Past Surgical History: Procedure Laterality Date BREAST AUGMENTATION Bilateral 1977 CATARACT EXTRACTION N/A Cataract Surgery from [facility] CHOLECYSTECTOMY N/A Cholecystectomy from [facility] [employer] HIP ARTHROPLASTY Bilateral LUMBAR FUSION L4-L5 NASAL SEPTUM SURGERY N/A Nasal Septal Deviation Repair from [facility] [employer] OTHER SURGICAL HISTORY N/A Percutaneous Lithotomy from [employer] OTHER SURGICAL HISTORY gastric ulcer perferation RIGHT COLECTOMY TONSILLECTOMY N/A Tonsillectomy from [employer] [5] Allergies Allergen Reactions Other Swelling Aerosol disinfectant- especially Lysol Nickel Rash [6] Current Outpatient Medications: albuterol, INHALE 2 PUFFS BY MOUTH 4 TIMES DAILY NEEDED Aspirin, 81 mg 1 (one) time each day. fluticasone-salmeterol, 1 puff as needed. losartan, Take 0.5 tablets by mouth Daily. oxybutynin XL, Take 1 tablet by mouth daily. pantoprazole, Take 1 tablet by mouth nightly. potassium chloride CR, 1 tablet. rosuvastatin, Take 1 tablet by mouth 3 times a week. Takes M-W-F triamterene-hydrochlorothiazide, Take 0.5 tablets by mouth daily. Gemtesa, Take 1 tablet by mouth Daily. * Preprocedure Instructions - Bonnie Clarke PA - 05/25/2025 1:00 PM EDT Home Medication Instructions Current Medications Medication Instructions albuterol 108 (90 Base) MCG/ACT inhaler Take as needed Aspirin 81 MG capsule Take morning of surgery fluticasone-salmeterol (Advair Diskus) 100-50 MCG/ACT diskus inhaler Take as needed losartan (Cozaar) 50 MG tablet Take night before surgery oxybutynin XL (Ditropan-XL) 15 MG 24 hr tablet Take morning of surgery pantoprazole (Protonix) 40 MG EC tablet Take night before surgery potassium chloride CR (Klor-Con) 10 MEQ ER tablet Take night before surgery rosuvastatin (Crestor) 10 MG tablet Take morning of surgery triamterene-hydrochlorothiazide (Maxzide-25) 37.5-25 MG tablet Hold day of surgery Vibegron (Gemtesa) 75 MG tablet Take morning of surgery General Preoperative Instructions You will be called the business day before surgery with your arrival time No food after midnight the night before surgery. You can drink clear liquids up to 2 hours prior to arrival unless instructed by your surgeon otherwise. Please do not try to get all your hydration in 2 hours prior to arrival. Start the day before surgery drinking more than you usually would. After midnight, you can have clear liquids only (water,apple juice, Gatorade) up to 2 hours prior to arrival. No coffee or tea. No alcohol or smoking prior to surgery Arrive on time to avoid delays Parking/Registration procedure explained You MUST have a responsible adult available for transport to and from hospital Visitation policy for the day of surgery reviewed Bring insurance card, photo ID, along with power of preschool teacher aide, guardianship or advanced directives if applicable Do not bring money, jewelry or other valuables Hibiclens bathing instructions reviewed if applicable Notify surgeon of fever, illness, any changes or if you decide not to have surgery Diabetes Instructions (If applicable) Take diabetes medication as instructed You may have up to 4 ounces of apple juice 2 hours prior to arrival for surgery for low glucose documented in this encounter Plan of Treatment Scheduled Orders Name Type Priority Associated Diagnoses Orde r Schedule ECG Adult (Now - Performed i n your clinic) ECG Routine Preop examination Ordered: 05/25/2025 documented as of this encounter Visit Diagnoses Diagnosis Preop examination- Primary Unspecified pre-operative examination documented in this encounter Additional Health Concerns Assessment Noted Time A fall risk assessment has been complete d for the patient 05/25/2025 10:53 AM EDT A Body Mass Index follow-up plan has been documented for the patient 06/03/2025 2:09 PM EDT documented as of this encounter Care Teams Audit Practice Intern Relationship Specialty Start Date End Date Efrain Angeles MD [address] [place] [id number] PCP - General 04/03/24 documented as of this encounter
--- OUTSIDE RECORDS SUMMARY | 2025-05-31 09:14 | XMS_ITS | Encounter Summary ---
Author Organization [facility] Address [address] [place] [address] Care Team Providers Care Promotion Producer Name Role Phone Efrain Angeles MD Primary Care Provider [phone] Reason for Referral * Home Health (Routine) - Authorized Specialty Diagnoses / Procedures Referred By Jose tay Referred To Contact Home Health Services Diagnoses Adenocarcinoma of gallbladder (CMS/HCC) Marbin Davis APRN [address] [address] Phone: tel: fax: Referral ID Status Reason Start Date Expiration Date Visits Requested Visits Authorized [id number] Authorized Specialty Services Required 06/07/2025 12/07/2026 999 999 Reason for Visit * Auth/Cert (Routine) Specialty Diagnoses / Procedures Referred By Jose tay Referred To Contact Diagnoses 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] Procedures OK RESEC LIVER,PART LOBECTOMY OK LAP,DIAGNOSTIC ABDOMEN diagnostic laparoscopy, open partial hepatectomy, lymph node dissection LAPAROSCOPY, DIAGNOSTIC CavnarSteve MD [address] [address] Phone: tel: fax: [facility] [address] [place] [phone] Phone: tel: Referral ID Status Reason Start Date Expiration Date Visits Re quested Visits Authorized [id number] 1 1 Encounter Details Date Type Department Care Team (Latest Contact Info) Description 05/31/2025 9:14 AM EDT - 06/08/2025 2:27 PM EDT Hospital Encounter [facility] [address] [place] [address] Steve Veloz MD [address] [phone] Adenocarcinoma of gallbladder (CMS/HCC) Discharge Disposition: Home or Self Care Social History Tobacco Use Types Packs/Day Years Used Date Smoking Tobacco: Never Smokeless Tobacco: Never Alcohol Use Standard Drinks/Week Comments No 0 (1 standard drink = 0.6 oz pur e alcohol) PHQ-2 Answer Date Recorded Patient Health Questionnaire-2 Score 0 06/16/2025 Humiliation, Afraid, Rape, and Kick questionnair e [...] No 06/01/2025 Housing Stability Vital Sign Answer Mj e Recorded In the last 12 months, was t here a time when you were not able to pay the mortgage or rent on time? No 06/01/2025 In the past 12 months, how m any times have you moved where you were living? 0 06/01/2025 At any time in the past 12 m [facility], were you homeless or living in a [place] [facility] (including now)? No 06/01/2025 [facility] Utilities Answer Date Recorded In the past [...] Sign Reading Time Taken Comments Blood Pressure 98/62 06/08/2025 11:10 AM EDT Pulse 87 06/08/2025 11:10 AM EDT Temperature 37.1 C (98.7 F) 06/08/2025 11:10 AM EDT Respiratory Rate 16 06/08/2025 7:44 AM EDT Oxygen Saturation 94% 06/08/2025 11: 10 AM EDT Inhaled Oxygen Concentration - - Weight 67.9 kg (149 lb 11.1 oz) 06/08/2025 7:44 AM EDT Height 165.1 cm (5' 5 ) 05/31/2025 10:1 5 PM EDT Body Mass Index 24.91 05/31/2025 10:15 PM EDT documented in this encounter Functional Status [...] Date of Assessment Author No Risk Indicated 06/08/2025 7:00 AM EDT Christi Harper RN * Question Answer Date of Assessment Author 1. Wish to be (Past 1 Month) No 025 7:00 AM MILLERT Christi Harper RN 2. Non-Specific Active Suici nelda Thoughts (Past 1 Month) No 06/08/2025 7:00 AM EDT Caio Harper RN 6. Suicidal Behavior (Lifetime) No 7:00 AM EDT Christi Harper RN documented as of this encounter Discharge Instructions * Discharge Instructions* Margarette Diaz, VICE PRESIDENT OF ADVERTISING - 06/07/2025 4:05 PM EDT Post-Operative Discharge Instructions: Medications: - Pain medication: You will be discharged with Robaxin for as needed daily pain management. You will also be prescribed oxycodone for as needed breakthrough severe pain. - Lovenox: You will be on lovenox for 28 days from the surgery date (05/31/2025) and will end on 06/28/25. - You may resume your previous medications unless otherwise instructed. Nutrition: - You should consume a GI soft diet as tolerated, focusing on liquids to keep yourself hydrated. Please refer to diet education for more instructions on what you can or cannot eat. Activity: - Walking and climbing stairs is ok and encouraged. You should refrain from any strenuous activity/exercise until your follow up appointment. - No lifting anything more than 10 pounds for the next 6 weeks - You may not drive for 48 hours after surgery, or while taking narcotics Dressing: - You have reinier across your incision. These will be removed in clinic at your follow up appointment. - You should try to keep your incisions as clean and dry as possible - You may shower. Let the soapy water run over your incisions. Do not scrub at your incisions. After you shower, pat your incisions dry with a clean towel. - Do NOT soak your incisions, or take a tub bath for 2 weeks. Potential Issues: - It is normal to have some pain and soreness, especially around the incisions - A small amount of clear drainage from the incision may be expected, call the office if the drainage becomes bloody, purulent (pus), or foul-smelling - Call the office if you start to have increased redness, drainage, swelling, or increased pain around your incision - Call the office if you have a fever greater than 101 F - Call the office if you have severe abdominal discomfort, nausea and vomiting, or feeling unwell - [facility] with [facility] questions or concerns during regular business hours (9am-5pm Saturday through Saturday except holidays). The number is . - If outside regular business hours, please call the after hours number at . Follow Up: - You will follow-up with EMI in one week and Dr. Veloz in 3 weeks. documented in this encounter Medications at Time of Discharge albuterol 108 (90 Base) MCG/ACT inhaler Inhale 2 puffs as needed for shortness of breath or wheezing. aspirin 81 MG EC tablet Take 1 tablet by mouth daily. fluticasone-salmeter ol (Advair Diskus) 100-50 MCG/ACT diskus inhaler Inhale 1 puff as needed. 08/06/2024 lidocaine (Lidoderm) 5 % patch Apply 1 patch topically 1 (one) time each day at the same time over 12 hours. Remove & discard patch within 12 hours or as directed by . 10 patch 06/08/2025 losartan (Cozaar) 50 MG tablet Take 0.5 tablets by mouth daily. 03/19/2024 naloxone (Narcan) 4 mg/0.1 mL nasal spray 1. Give 1 spray in nostril for no/slow breathing or cannot wake after opioid use 2. Call 911 3. Repeat in other nostril if symptoms continue 1 each 06/08/2025 pantoprazole (Protonix) 40 MG EC tablet Take 1 tablet by mouth nightly. 04/07/2025 potassium chloride CR (Klor-Con) 10 MEQ ER tablet Take 1 tablet by mouth 2 times a day. 03/19/2024 triamterene-hydrochl orothiazide (Maxzide-25) 37.5-25 MG tablet Take 0.5 tablets by mouth daily. Vibegron (Gemtesa) 75 MG tablet Take 1 tablet by mouth Daily. 03/19/2024 metoclopramide (Reglan) 10 MG tablet Take 1 tablet by mouth every 8 hours. 90 tablet 06/08/2025 enoxaparin (Lovenox) 40 MG/0.4ML solution prefilled syringe Inject 0.4 mL under the skin daily for 19 days. 7.6 mL 06/09/2025 methocarbamol (Robaxin) 500 MG tablet Take 2 tablets by mouth 4 times a day. 80 tablet 06/08/2025 5 ondansetron ODT (Zofran-ODT) 4 MG disintegrating tablet Dissolve 1 tablet on the tongue every 6 hours as needed for nausea or vomiting. 20 tablet 06/08/2025 oxyCODONE (Roxicodone) 5 MG immediate release tablet Take 1 tablet by mouth every 6 hours as needed for moderate pain. 12 tablet 06/08/2025 5 rosuvastatin (Crestor) 10 MG tablet Take 1 tablet by mouth 3 times a week. Takes M-W-F 03/19/2024 5 senna-docusate sodium (Senokot-S) 8.6-50 MG tablet Take 1 tablet by mouth daily. 30 tablet 06/08/2025 5 documented as of this encounter Miscellaneous Notes * Care Plan - Christi Harper RN - 06/08/2025 12:24 PM EDT Problem: Adult Inpatient Plan of Care Goal: Plan of Care Review 06/08/2025 1224 by Christi Harper RN Outcome: Met 06/08/2025 1222 by Christi Harper RN Outcome: Ongoing, Progressing Goal: Patient-Specific Goal (Individualized) 06/08/2025 1224 by Christi Harper RN Outcome: Met 06/08/2025 1222 by Christi Harper RN Outcome: Ongoing, Progressing Goal: Absence of Hospital-Acquired Illness or Injury 06/08/2025 1224 by Christi Harper RN Outcome: Met 06/08/2025 1222 by Christi Harper RN Outcome: Ongoing, Progressing Intervention: Identify and Manage Fall Risk Flowsheets (Taken 06/07/20251999 by Lolita Cornelius, RN) Safety Promotion/Fall Prevention: activity supervised assistive device/personal items within reach clutter-free environment maintained fall prevention program maintained lighting adjusted mobility aid in reach nonskid shoes/slippers when out of bed room organization consistent Intervention: Prevent Skin Injury Flowsheets (Taken 06/08/2025 0700) Body Position: weight shifting Intervention: Prevent and Manage VTE (Venous Thromboembolism) Risk Flowsheets (Taken 06/08/2025 1200) VTE Prevention/Management: medication Intervention: Prevent Infection Flowsheets (Taken 06/07/20251999 by Lolita Cornelius, RN) Infection Prevention: cohorting utilized hand hygiene promoted single patient room provided environmental surveillance performed personal protective equipment utilized visitors restricted/screened equipment surfaces disinfected rest/sleep promoted Goal: Optimal Comfort and Wellbeing 06/08/2025 1224 by Christi Harper RN Outcome: Met 06/08/2025 1222 by Christi Harper RN Outcome: Ongoing, Progressing Intervention: Monitor Pain and Promote Comfort Flowsheets (Taken 06/08/2025 1017 by Rishi Ramirez, RN) Pain Management Interventions: medication (see MAR) Intervention: Provide Person-Centered Care Flowsheets (Taken 06/07/20251999 by Lolita Cornelius, RN) Trust Relationship/Rapport: care explained questions answered choices provided questions encouraged emotional support provided reassurance provided empathic listening provided thoughts/feelings acknowledged Problem: Self-Care Deficit Goal: Improved Ability to Complete Activities of Daily Living 06/08/2025 1224 by Christi Harper RN Outcome: Met 06/08/2025 1222 by Christi Harper RN Outcome: Ongoing, Progressing Intervention: Promote Activity and Functional Pike Flowsheets (Taken 06/08/2025 0700) Activity Assistance Provided: assistance, stand-by Problem: Fall Injury Risk Goal: Absence of Fall and Fall-Related Injury 06/08/2025 1224 by Christi Harper RN Outcome: Met 06/08/2025 1222 by Christi Harper RN Outcome: Ongoing, Progressing Intervention: Identify and Manage Contributors Flowsheets (Taken 06/07/20251999 by Lolita Cornelius, RN) Medication Review/Management: medications reviewed high-risk medications identified Intervention: Promote Injury-Free Environment Flowsheets (Taken 06/07/20251999 by Lolita Cornelius, RN) Safety Promotion/Fall Prevention: activity supervised assistive device/personal items within reach clutter-free environment maintained fall prevention program maintained lighting adjusted mobility aid in reach nonskid shoes/slippers when out of bed room organization consistent Problem: Pain Acute Goal: Optimal Pain Control and Function 06/08/2025 1224 by Christi Harper RN Outcome: Met 06/08/2025 1222 by Christi Harper RN Outcome: Ongoing, Progressing Intervention: Optimize Psychosocial Wellbeing Flowsheets (Taken 06/07/20251999 by Lolita Cornelius, RN) Diversional Activities: television smartphone Intervention: Develop Pain Management Plan Flowsheets (Taken 06/08/2025 1017 by Rishi Ramirez, RN) Pain Management Interventions: medication (see MAR) Intervention: Prevent or Manage Pain Flowsheets (Taken 06/07/20251999 by Lolita Cornelius, RN) Bowel Elimination Promotion: adequate fluid intake promoted ambulation promoted commode/bedpan at bedside privacy promoted * Care Plan - Christi Harper RN - 06/08/2025 12:23 PM EDT Problem: Adult Inpatient Plan of Care Goal: Plan of Care Review Outcome: Ongoing, Progressing Goal: Patient-Specific Goal (Individualized) Outcome: Ongoing, Progressing Goal: Absence of Hospital-Acquired Illness or Injury Outcome: Ongoing, Progressing Intervention: Identify and Manage Fall Risk Flowsheets (Taken 06/07/20251999 by Lolita Cornelius, RN) Safety Promotion/Fall Prevention: activity supervised assistive device/personal items within reach clutter-free environment maintained fall prevention program maintained lighting adjusted mobility aid in reach nonskid shoes/slippers when out of bed room organization consistent Intervention: Prevent Skin Injury Flowsheets (Taken 06/08/2025 0700) Body Position: weight shifting Intervention: Prevent and Manage VTE (Venous Thromboembolism) Risk Flowsheets (Taken 06/08/2025 1200) VTE Prevention/Management: medication Intervention: Prevent Infection Flowsheets (Taken 06/07/20251999 by Lolita Cornelius, RN) Infection Prevention: cohorting utilized hand hygiene promoted single patient room provided environmental surveillance performed personal protective equipment utilized visitors restricted/screened equipment surfaces disinfected rest/sleep promoted Goal: Optimal Comfort and Wellbeing Outcome: Ongoing, Progressing Intervention: Monitor Pain and Promote Comfort Flowsheets (Taken 06/08/2025 1017 by Rishi Ramirez, ELIEZER) Pain Management Interventions: medication (see MAR) Intervention: Provide Person-Centered Care Flowsheets (Taken 06/07/20251999 by Lolita Cornelius, RN) Trust Relationship/Rapport: care explained questions answered choices provided questions encouraged emotional support provided reassurance provided empathic listening provided thoughts/feelings acknowledged Problem: Self-Care Deficit Goal: Improved Ability to Complete Activities of Daily Living Outcome: Ongoing, Progressing Intervention: Promote Activity and Functional Pike Flowsheets (Taken 06/08/2025 0700) Activity Assistance Provided: assistance, stand-by Problem: Fall Injury Risk Goal: Absence of Fall and Fall-Related Injury Outcome: Ongoing, Progressing Intervention: Identify and Manage Contributors Flowsheets (Taken 06/07/20251999 by Lolita Cornelius, RN) Medication Review/Management: medications reviewed high-risk medications identified Intervention: Promote Injury-Free Environment Flowsheets (Taken 06/07/20251999 by Lolita Cornelius, RN) Safety Promotion/Fall Prevention: activity supervised assistive device/personal items within reach clutter-free environment maintained fall prevention program maintained lighting adjusted mobility aid in reach nonskid shoes/slippers when out of bed room organization consistent Problem: Pain Acute Goal: Optimal Pain Control and Function Outcome: Ongoing, Progressing Intervention: Optimize Psychosocial Wellbeing Flowsheets (Taken 06/07/20251999 by Lolita Cornelius, RN) Diversional Activities: television smartphone Intervention: Develop Pain Management Plan Flowsheets (Taken 06/08/2025 1017 by Rishi Ramirez, RN) Pain Management Interventions: medication (see MAR) Intervention: Prevent or Manage Pain Flowsheets (Taken 06/07/20251999 by Lolita Cornelius, RN) Bowel Elimination Promotion: adequate fluid intake promoted ambulation promoted commode/bedpan at bedside privacy promoted * Progress Notes - Barbie Latham RN - 06/08/2025 9:34 AM EDT Case Management Discharge Note Alyssia Holly 74 y.o. female CSN: [id number] Admission: 05/31/2025 9:14 AM Primary Problem: Adenocarcinoma of gallbladder (CMS/HCC) Primary Investigations Consultant: Primary Caregiver: Self Assistance Available at Discharge: as needed per friends Housing Circumstances-Z Codes: Housing Circumstances (select all that apply): None Applicable Patient Referred to Financial or Community Resources: Discharge Facility/Level of Care Needs: Discharge Facility/Level of Care Needs: 1-Home or Self Care Patient's Choice of Community Agency(s): Patient/Family Anticipated Services at Transition: Patient/Family Anticipated Services at Transition: casework specialist, durable medical equipment DME/Equipment Needed after Discharge: Equipment Currently Used at Home: walker, rolling, cane, straight Equipment Needed After Discharge: walker, rollator Readmission Within the Last 30 Days: Medicare Documentation: Medicare Second Notice?: Yes Date Second Notice Completed: 06/08/25 Time Second Notice Completed: 932 Medicare Second Notice Recieved By: patient Follow-up: [facility] if patient decides she wants services she will call. DME [phone]-rollator Discharge Transportation: Transportation Anticipated: family or friend will provide Transportation Home at Discharge: Family/Friend will Provide Has discharge transport been arranged?: Yes What day is the transport expected?: 06/08/25 Follow Up Transport: Transportation Needed to Follow up Appoinments: Family/Friend will Provide Additional Comments: POC reviewed with primary team. Refer to primary team's progress note for details. Patient unsure is home health required She will call the if needed per report. Pt medically ready to d\c. No furthercase management needed. Barbie Latham RN * Discharge Summary - Margarette Diaz, VICE PRESIDENT OF ADVERTISING - 06/08/2025 9:11 AM EDT Hospitalization Admit Date/Time: 05/31/2025 9:14 AM Admitting Attending: Steve Veloz Discharge Date: 06/08/2025 Discharge Attending Physician: Steve Veloz MD PCP name and Address: Efrain Angeles MD [address] [facility] / [place] [address] Referring provider name and address: No referring provider defined for this encounter. Chief Concern, Brief History of Present Illness, and Hospital Course Alyssia Holly is a 74 y.o. female with a past medical history of HTN, PUD, cervical cancer (29y/o), colon cancer (rsxn 2010), who presented to [facility] as a scheduled surgical intervention for management of adenocarcinoma of gallbladder. On 05/31/2025, the patient underwent diagnostic laparoscopy, exploratory laparotomy, portal lymph node dissection, segment 4B/5 partial hepatectomy, omental flap by Dr. Veloz. The procedure was tolerated well with no intraoperative complications. . The remaining hospital course was uncomplicated. Discharge medication to highlight: - Pain medication: Patient will be discharged with Robaxin for regular daily pain management. Patient will also be prescribed oxycodone for as needed breakthrough severe pain. - Lovenox: Patient will be on lovenox for 28 days from the surgery date (05/31/2025) and will end on 06/28/25. - Restart home meds as listed below Significant to discharge: - Patient will be discharged still reinier across their incision and should be removed in clinic attheir follow up appointment. On 06/08/2025, patient has been hemodynamically stable and deemed medically appropriate for discharge. Currently, the patient's pain is well controlled on an oral regimen. They have return of bowel function and are tolerating a GI soft diet with no nausea/vomiting. There were no difficulties voiding. The patient will be discharged to Home with Home Health. Follow-up appointments: - The patient will follow-up with EMI in one week and Dr. Veloz in 3 weeks. Surgeries and Procedures open partial hepatectomy, lymph node dissection (N/A), LAPAROSCOPY, DIAGNOSTIC (N/A) Medication List PAUSE taking these medications losartan 50 MG tablet Wait to take this until your doctor or other care provider tells you to start again. Commonly known as: Cozaar Take 0.5 tablets by mouth daily. potassium chloride CR 10 MEQ ER tablet Wait to take this until your doctor or other care provider tells you to start again. Commonly known as: Klor-Con Take 1 tablet by mouth 2 times a day. triamterene-hydrochlorothiazide 37.5-25 MG tablet Wait to take this until your doctor or other care provider tells you to start again. Commonly known as: Maxzide-25 Take 0.5 tablets by mouth daily. .. Advair Diskus 100-50 MCG/ACT diskus inhaler Generic drug: fluticasone-salmeterol Inhale 1 puff as needed. albuterol 108 (90 Base) MCG/ACT inhaler Inhale 2 puffs as needed for shortness of breath or wheezing. aspirin 81 MG EC tablet Take 1 tablet by mouth daily. enoxaparin 40 MG/0.4ML solution prefilled syringe Commonly known as: Lovenox Inject 0.4 mL under the skin daily for 19 days. Start taking on: June 09, 2025 Gemtesa 75 MG tablet Generic drug: Vibegron Take 1 tablet by mouth Daily. lidocaine 5 % patch Commonly known as: Lidoderm Apply 1 patch topically 1 (one) time each day at the same time over 12 hours. Remove & discard patch within 12 hours or as directed by MD. methocarbamol 500 MG tablet Commonly known as: Robaxin Take 2 tablets by mouth 4 times a day. metoclopramide 10 MG tablet Commonly known as: Reglan Take 1 tablet by mouth every 8 hours. naloxone 4 mg/0.1 mL nasal spray Commonly known as: Narcan 1. Give 1 spray in nostril for no/slow breathing or cannot wake after opioid use 2. Call 911 3. Repeat in other nostril if symptoms continue ondansetron ODT 4 MG disintegrating tablet Commonly known as: Zofran-ODT Dissolve 1 tablet on the tongue every 6 hours as needed for nausea or vomiting. oxyCODONE 5 MG immediate release tablet Commonly known as: Roxicodone Take 1 tablet by mouth every 6 hours as needed for moderate pain. pantoprazole 40 MG EC tablet Commonly known as: Protonix Take 1 tablet by mouth nightly. rosuvastatin 10 MG tablet Commonly known as: Crestor Take 1 tablet by mouth 3 times a week. Takes -- senna-docusate sodium 8.6-50 MG tablet Commonly known as: Senokot-S Take 1 tablet by mouth daily. Where to Get Your Medications These medications were sent to [facility] - [place], [place] - [address] [facility] [id number] enoxaparin 40 MG/0.4ML solution prefilled syringe lidocaine 5 % patch methocarbamol 500 MG tablet metoclopramide 10 MG tablet naloxone 4 mg/0.1 mL nasal spray ondansetron ODT 4 MG disintegrating tablet oxyCODONE 5 MG immediate release tablet senna-docusate sodium 8.6-50 MG tablet Discharge Diagnosis Medical Problems Active and Resolved Hospital Problems Hospital Post-op pain Overview Signed 06/02/2025 11:41 AM by Marbin Davis APRN - multimodal pain management - transition PO pain meds as diet advances and prior to discharge Electrolyte abnormality Overview Signed 06/02/2025 11:41 AM by Marbin Davis APRN - daily/PRN CMP, Mg, Phos - replete as appropriate - goal: K>4, phos>3, mg>2 Transaminitis Overview Addendum 06/08/2025 8:49 AM by Margarette Diaz APRN Impoving - daily/prn CMP - avoid hepatotoxic meds RESOLVED: Leukocytosis Overview Signed 06/02/2025 11:41 AM by Marbin Davis APRN - common post-op finding likely reactive 2/2 surgery - daily/prn CBC - monitor for s/s of active infection * (Principal) Adenocarcinoma of gallbladder (CMS/HCC) Overview Signed 06/02/2025 11:40 AM by Marbin Davis APRN 05/31/2025: diagnostic laparoscopy, portal lymph node dissection, segment 4B/5 partial hepatectomy,omental flap [Cavnar] Post-Operative Discharge Instructions: Medications: - Pain medication: You will be discharged with Robaxin for as needed daily pain management. You will also be prescribed oxycodone for as needed breakthrough severe pain. - Lovenox: You will be on lovenox for 28 days from the surgery date (05/31/2025) and will end on 06/28/25. - You may resume your previous medications unless otherwise instructed. Nutrition: - You should consume a GI soft diet as tolerated, focusing on liquids to keep yourself hydrated. Please refer to diet education for more instructions on what you can or cannot eat. Activity: - Walking and climbing stairs is ok and encouraged. You should refrain from any strenuous activity/exercise until your follow up appointment. - No lifting anything more than 10 pounds for the next 6 weeks - You may not drive for 48 hours after surgery, or while taking narcotics Dressing: - You have reinier across your incision. These will be removed in clinic at your follow up appointment. - You should try to keep your incisions as clean and dry as possible - You may shower. Let the soapy water run over your incisions. Do not scrub at your incisions. After you shower, pat your incisions dry with a clean towel. - Do NOT soak your incisions, or take a tub bath for 2 weeks. Potential Issues: - It is normal to have some pain and soreness, especially around the incisions - A small amount of clear drainage from the incision may be expected, call the office if the drainage becomes bloody, purulent (pus), or foul-smelling - Call the office if you start to have increased redness, drainage, swelling, or increased pain around your incision - Call the office if you have a fever greater than 101 F - Call the office if you have severe abdominal discomfort, nausea and vomiting, or feeling unwell - Call [facility] with any questions or concerns during regular business hours (9am-5pm Saturday through Saturday except holidays). The number is . - If outside regular business hours, please call the after hours number at . Follow Up: - You will follow-up with EMI in one week and Dr. Veloz in 3 weeks. Pertinent Physical Exam At Time of Discharge Physical Exam Vitals reviewed. Constitutional: Appearance: Normal appearance. She is not ill-appearing. HENT: Head: Atraumatic. Mouth/Throat: Mouth: Mucous membranes are moist. Eyes: Extraocular Movements: Extraocular movements intact. Cardiovascular: Rate and Rhythm: Normal rate. Pulses: Normal pulses. Pulmonary: Effort: Pulmonary effort is normal. Abdominal: General: There is no distension. Palpations: Abdomen is soft. Comments: Soft, midline incision healing well, reinier intact. LLQ blood blister, covered w/ Covaderm Musculoskeletal: General: Normal range of motion. Cervical back: Normal range of motion. Skin: General: Skin is warm. Capillary Refill: Capillary refill takes less than 2 seconds. Neurological: General: No focal deficit present. Mental Status: She is alert and oriented to person, place, and time. Psychiatric: Mood and Affect: Mood normal. Behavior: Behavior normal. Thought Content: Thought content normal. Judgment: Judgment normal. Discharge Disposition/Condition Disposition: Home Condition: Stable (s/sx potential problems absent or manageable) I spent >30 minutes of patient care and instruction time in preparation for this discharge. Cosigned by Steve Veloz MD at 06/14/2025 4:28 PM EDT Associated attestation - Steve Veloz MD - 06/14/2025 4:28 PM EDT I attest to being involved in providing substantive part of the medical decision making in patient care. * Care Plan - Lolita Cornelius RN - 06/07/2025 8:30 PM EDT Problem: Adult Inpatient Plan of Care Goal: Plan of Care Review Outcome: Ongoing, Progressing Flowsheets (Taken 06/07/20251999) Plan of Care Reviewed With: patient Goal: Patient-Specific Goal (Individualized) Outcome: Ongoing, Progressing Flowsheets (Taken 06/07/20251999) Patient/Family-Specific Goals (Include Timeframe): Pt will verbalize adequate pain control by scoring pain at less than 3/10 through out shift Goal: Absence of Hospital-Acquired Illness or Injury Outcome: Ongoing, Progressing Intervention: Prevent Skin Injury Flowsheets (Taken 06/07/20251999) Body Position: weight shifting Skin Protection: protective footwear used transparent dressing maintained Intervention: Prevent Infection Flowsheets (Taken 06/07/20251999) Infection Prevention: cohorting utilized hand hygiene promoted single patient room provided environmental surveillance performed personal protective equipment utilized visitors restricted/screened equipment surfaces disinfected rest/sleep promoted Goal: Optimal Comfort and Wellbeing Outcome: Ongoing, Progressing Intervention: Monitor Pain and Promote Comfort Flowsheets (Taken 06/07/20251999) Pain Management Interventions: medication (see MAR) pain management plan reviewed with patient/caregiver relaxation techniques promoted rest quiet environment facilitated care clustered emotional support pillow support provided Intervention: Provide Person-Centered Care Flowsheets (Taken 06/07/20251999) Trust Relationship/Rapport: care explained questions answered choices provided questions encouraged emotional support provided reassurance provided empathic listening provided thoughts/feelings acknowledged Problem: Self-Care Deficit Goal: Improved Ability to Complete Activities of Daily Living Outcome: Ongoing, Progressing Intervention: Promote Activity and Functional Pike Flowsheets (Taken 06/07/20251999) Adaptive Equipment Use: used independently Self-Care Promotion: independence encouraged BADL personal objects within reach BADL personal routines maintained Problem: Fall Injury Risk Goal: Absence of Fall and Fall-Related Injury Outcome: Ongoing, Progressing Intervention: Identify and Manage Contributors Flowsheets (Taken 06/07/20251999) Medication Review/Management: medications reviewed high-risk medications identified Self-Care Promotion: independence encouraged BADL personal objects within reach BADL personal routines maintained Problem: Pain Acute Goal: Optimal Pain Control and Function Outcome: Ongoing, Progressing Intervention: Optimize Psychosocial Wellbeing Flowsheets (Taken 06/07/20251999) Supportive Measures: self-care encouraged relaxation techniques promoted active listening utilized verbalization of feelings encouraged Diversional Activities: television smartphone Spiritual Activities Assistance: hope instilled Intervention: Develop Pain Management Plan Flowsheets (Taken 06/07/20251999) Pain Management Interventions: medication (see MAR) pain management plan reviewed with patient/caregiver relaxation techniques promoted rest quiet environment facilitated care clustered emotional support pillow support provided Intervention: Prevent or Manage Pain Flowsheets (Taken 06/07/20251999) Sensory Stimulation Regulation: auditory stimulation minimized visual stimulation minimized lighting decreased tactile stimulation minimized care clustered Bowel Elimination Promotion: adequate fluid intake promoted ambulation promoted commode/bedpan at bedside privacy promoted Sleep/Rest Enhancement: awakenings minimized room darkened relaxation techniques promoted regular sleep/rest pattern promoted Medication Review/Management: medications reviewed high-risk medications identified * Care Plan - Christi Harper RN - 06/07/2025 6:13 PM EDT Problem: Adult Inpatient Plan of Care Goal: Plan of Care Review Outcome: Ongoing, Progressing Goal: Patient-Specific Goal (Individualized) Outcome: Ongoing, Progressing Goal: Absence of Hospital-Acquired Illness or Injury Outcome: Ongoing, Progressing Intervention: Identify and Manage Fall Risk 06/07/20251812 by Christi Harper RN Flowsheets (Taken 06/06/20251999 by Lolita Cornelius, ELIEZER) Safety Promotion/Fall Prevention: activity supervised fall prevention program maintained nonskid shoes/slippers when out of bed room organization consistent lighting adjusted assistive device/personal items within reach clutter-free environment maintained mobility aid in reach 06/07/20251811 by Christi Harper RN Flowsheets (Taken 06/06/20251999 by Lolita Cornelius, RN) Safety Promotion/Fall Prevention: activity supervised fall prevention program maintained nonskid shoes/slippers when out of bed room organization consistent lighting adjusted assistive device/personal items within reach clutter-free environment maintained mobility aid in reach Intervention: Prevent Skin Injury 06/07/20251812 by Christi Harper RN Flowsheets (Taken 06/07/2025 1600) Body Position: weight shifting 06/07/20251811 by Christi Harper RN Flowsheets (Taken 06/07/2025 1600) Body Position: weight shifting Intervention: Prevent and Manage VTE (Venous Thromboembolism) Risk 06/07/20251812 by Christi Harper RN Flowsheets (Taken 06/07/2025 1600) VTE Prevention/Management: SCDs (sequential compression devices) off 06/07/20251811 by Christi Harper RN Flowsheets (Taken 06/07/2025 1600) VTE Prevention/Management: SCDs (sequential compression devices) off Intervention: Prevent Infection 06/07/20251812 by Christi Harper RN Flowsheets (Taken 06/06/20251999 by Lolita Cornelius, ELIEZER) Infection Prevention: cohorting utilized hand hygiene promoted single patient room provided visitors restricted/screened personal protective equipment utilized environmental surveillance performed equipment surfaces disinfected rest/sleep promoted 06/07/20251811 by Christi Harper RN Flowsheets (Taken 06/06/20251999 by Lolita Cornelius, RN) Infection Prevention: cohorting utilized hand hygiene promoted single patient room provided visitors restricted/screened personal protective equipment utilized environmental surveillance performed equipment surfaces disinfected rest/sleep promoted Goal: Optimal Comfort and Wellbeing Outcome: Ongoing, Progressing Intervention: Monitor Pain and Promote Comfort 06/07/20251812 by Christi Harper RN Flowsheets (Taken 06/07/2025299 by Lolita Cornelius RN) Pain Management Interventions: position adjusted medication offered but refused 06/07/20251811 by Christi Harper RN Flowsheets (Taken 06/07/2025299 by Lolita Cornelius, ELIEZER) Pain Management Interventions: position adjusted medication offered but refused Intervention: Provide Person-Centered Care 06/07/20251812 by Christi Harper RN Flowsheets (Taken 06/06/20251999 by Lolita Cornelius RN) Trust Relationship/Rapport: care explained questions answered choices provided questions encouraged emotional support provided reassurance provided empathic listening provided thoughts/feelings acknowledged 06/07/20251811 by Christi Harper RN Flowsheets (Taken 06/06/20251999 by Lolita Cornelius RN) Trust Relationship/Rapport: care explained questions answered choices provided questions encouraged emotional support provided reassurance provided empathic listening provided thoughts/feelings acknowledged Problem: Self-Care Deficit Goal: Improved Ability to Complete Activities of Daily Living Outcome: Ongoing, Progressing Intervention: Promote Activity and Functional Pike Flowsheets (Taken 06/07/2025 1600) Activity Assistance Provided: assistance, stand-by Problem: Fall Injury Risk Goal: Absence of Fall and Fall-Related Injury Outcome: Ongoing, Progressing Intervention: Identify and Manage Contributors Flowsheets (Taken 06/06/20251999 by Lolita Cornelius, RN) Medication Review/Management: medications reviewed high-risk medications identified Intervention: Promote Injury-Free Environment Flowsheets (Taken 06/06/20251999 by Lolita Cornelius, RN) Safety Promotion/Fall Prevention: activity supervised fall prevention program maintained nonskid shoes/slippers when out of bed room organization consistent lighting adjusted assistive device/personal items within reach clutter-free environment maintained mobility aid in reach Problem: Pain Acute Goal: Optimal Pain Control and Function Outcome: Ongoing, Progressing Intervention: Optimize Psychosocial Wellbeing Flowsheets (Taken 06/06/20251999 by Lolita Cornelius, RN) Diversional Activities: television Intervention: Develop Pain Management Plan Flowsheets (Taken 06/07/2025 0300 by Lolita Cornelius, ELIEZER) Pain Management Interventions: position adjusted medication offered but refused Intervention: Prevent or Manage Pain Flowsheets (Taken 06/06/20251999 by Lolita Cornelius, ELIEZER) Bowel Elimination Promotion: adequate fluid intake promoted ambulation promoted * Progress Notes - Barbie Latham RN - 06/07/2025 11:11 AM EDT Case Management Adult Progress Note Alyssia Holly 74 y.o. female CSN: [id number] Admission: 05/31/2025 9:14 AM Primary Problem: Adenocarcinoma of gallbladder (CMS/HCC) Anticipated Discharge Date: 06/08 Has Discharge Plans Changed? Yes home with home health pt ot sn Medicare Second Notice: Housing Circumstances: Not Applicable Housing Circumstances Action Taken: Medically Ready for Discharge: No [facility] [phone] Has accepted patient . POC reviewed with Ramona Davis APRN on primary team. PT recommends a RW for home. CM ordered RW from [facility] to be delivered bedside this afternoon. He stated patient will dc home tomorrow. Refer to primary team's progress note for details. Barbie Latham, RN * Progress Notes - Margoth Corea - 06/07/2025 9:01 AM EDT Occupational Therapy Treatment Patient Name: Alyssia Holly Today's Date: 06/07/2025 OT Discharge Recommendations: Home with assistance, Home health PT, Home health OT Equipment Recommended: Rollator Subjective Patient and RN agreeable to Occupational Therapy treatment session. Patient reports, I've been up since 4:50, I get my mornings started early Participants in Care Family/Caregiver Present: No Corporate Planning Manager: Not Applicable Presentation Oxygen Therapy: None (Room air) Lines and Tubes: Peripheral IV 06/04/25 Posterior;Right Forearm (Active) Pre-Session: Sitting in chair, Lines intact Pre-Session Comments: RN agreeable to therapy session. Post-Session: Sitting in chair, Call light in reach, RN notified, Lines intact Post-Session Comments: All needs in reach. Precautions Medical Precautions: Fall precautions, Post-Surgical precautions Post-Surgical Precautions: Abdominal precautions Objective Pain Patient reported no pain during session. At end of session, patient positioned in recliner for comfort. Delirium Screening RASS: Alert and calm Confusion Assessment Method-ICU (CAM-ICU/PCAM-ICU) Feature 3: Altered Level of Consciousness: Negative Bed Mobility Bed Mobility Interventions: Not assessed as patient recieved sitting in and returned to recliner per patient request. Transfers Transfer Exam: Sit to stand Level of Pike: Stand-by assist Physical/Nonphysical Assist: Minimal cues Assistive Device: Walker, rolling Transfer Exam: Stand to Sit Level of Pike: Stand-by assist Physical/Nonphysical Assist: Minimal cues Assistive Device: Walker, rolling Toilet Transfer Level of Pike: Stand-by assist Physical/Nonphysical Assist: Verbal Cues Type of Transfer: Ambulation, To toilet Assistive Device: Walker, rolling (BSC over toilet) Balance Static Sitting Balance Static Sitting-Balance Support: Right upper extremity support, Left upper extremity support, Feet supported Static Sitting-Level of Assistance: Independent Dynamic Sitting Balance Dynamic Sitting-Balance Support: Right upper extremity support, Left upper extremity support, Feet supported Dynamic Sitting-Balance: Lateral weight shifts, Anterior/Posterior weight shifts Level of Assistance: Independent Static Standing Balance Static Standing-Balance Support: Right upper extremity support, Left upper extremity support (RW) Static Standing-Level of Assistance: Standby assist Dynamic Standing Balance Dynamic Standing-Balance Support: Right upper extremity support, Left upper extremity support (RW) Dynamic Standing-Balance: Lateral weight shifts, Anterior/Posterior weight shifts Dynamic Standing Level of Assistance: Standby assist Self-Care Interventions Self Care/Home Management (ADLs) Time Entry: 40 Self_Care Interventions: OT facilitated out of chair mobility to participate in ADLs and functionalmobility in a upright position. OT provided physical assistance, line management and environmental adaptations to support navigation through room and hallway to decrease risk of falls. OT provided verbal cues for sequencing and proper body positioning during activity. OT facilitated task modification for grading activities based on patients' level of ability throughout session. Therapist facilitated activity with a focus on strength and endurance needed for increased independence and safety with ADLs/IADLs. Extra time and rest breaks required throughout session. Therapist guided session with a focus on education regarding plan of care, AE/DME, household modifications, energy conservation techniques and fall prevention strategies. Extra time needed to ensure safety and success with ADLs upon returning home. Grooming Grooming Level of Assistance: SBA Grooming Interventions: Patient reports she already completed grooming task prior to session as patient woke up at 4:50 to start morning routine. Anticipate SBA in standing position for grooming. Bathing Bathing Interventions: Patient reports she has a tub bench and therapist encouraged patient to ultize upon return home for energy conservation and fall prevention. Patient agreeable. UE Dressing UE Dressing Level of Assistance: Independent UE Dressing Interventions: Patient with shirt donned at start of session reporting she was able to dress self independently. Lower Extremity Dressing Pants Level of Assistance: SBA Sock Level of Assistance: Setup LE Dressing Interventions: Patient demonstrated ability to acheive figure four position and adjust/renny socks with good accruracy. Patient with pants donned at start of session. Patient completed sitto stand from recliner with SBA and use of RW and therapist cued patient to simulate donning/adjusting pants. Pt required SBA only for balance. Toileting Toileting Level of Assistance: SBA, Minimal verbal cues Where Assessed: Toilet (BSC placed over toilet) Toileting Interventions: Patient completed functional mobility from bed to bathroom in order to engage in toileting task. Patient completed stand to sit transfer with SBA and cues for hand placement.Patient denied need to toilet at this however simulated pericare care and LB clothing management while in standing position. Therapist provided SBA for balance only and occasional cues for increased posture. Community Re-entry: Patient engaged in functional mobility from patient room throughout hallway requiring SBA for safety and use of RW to simulate household distance in preparation for ADLS. Patient completed >25 feet with no rest break an no LOB. Additionally, patient ascended/descended a flight of steps with SBA for safety. Health Management Health Management interventions: Patient educated on plan of care, AE/DME, household modifications,energy conservation techniques and fall prevention strategies. Therapist encouraged removal of rugsand other fall hazards as well as managing pets upon initial return home. Pt educated on energy conservation techniques providing cues to pace self, complete seated ADLs and take RB as needed. Patient reports, I thought I had a bedside commode but I don't. Therapist provided patient with purchasing options and pt was made aware of outside cost. Assessment Patient demonstrated ability to engage in multiple ADL and functional mobility tasks requiring no more than stand by assist and use of rolling walker. Due to these improvements, patient is most appropriate to return home with assist versus initial recommendation of acute rehab. Patient continues todemo deficits in ADL performance, functional endurance, functional mobility and would continue to benefit from skilled inpatient OT treatment to address deficits. OT Recommendations Discharge Destination: Home with assistance, Home health PT, Home health OT Discharge Equipment: Rollator Plan Progress towards baseline with ADLS/IADLs and functional mobility. Goals OT GOAL DETAILS Goal Established Date Time Frame Goal Status OT Goal 1: Pt will perform functional toilet transfer including entering/exiting the bathroom + pericare + LB dressing with min assist using DME as needed. 06/01/25 2 weeks OT Goal 2: Pt will perform three consecutive grooming activities standing at the sink with min assist using DME as needed. 06/01/25 2 weeks OT Goal 3: Pt will perform three consecutive LB dressing activities in sitting/standing with min assist using DME/AE as needed. 06/01/25 2 weeks OT Goal 4: Pt will perform UB/LB sponge bathing activity in sitting/standing with min assist using DME/AE as needed. 06/01/25 2 weeks OT Goal 5: Pt will functionally ambulate household distances with min assist using DME as needed inorder to participate in ADLs/IADLs. 06/01/25 2 weeks Written by Margoth Corea on 06/07/25 at 12:14 PM. * Progress Notes - Guillermo Treadwell - 06/07/2025 8:20 AM EDT PHYSICAL THERAPY TREATMENT PATIENT DATA Patient Name Alyssia Holly Session Date 06/07/2025 Total Treatment Time 40 min PT Discharge Recommendations Home with assistance, Home health PT PT Equipment Recommendations Rollator PRECAUTIONS Weight Bearing Precautions (if applicable) ROM Restrictions (if applicable) Medical Precautions Yes Medical Precautions: Fall precautions, Post-Surgical precautions Post-Surgical Precautions: Abdominal precautions HOME LIVING/SET-UP Lives With Alone Home Type Mobile home Home Equipment Rolling walker, Cane Home Layout One level, Stairs to enter with rails 8 Bathroom Layout Tub/Shower combo Standard Accessible via walker Additional Comments 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), pt recently off work the last few months due to previous abdominal surgeries, while at home after her initial abdominal surgeries pt independent with ADL mobility/basic ADLs requiring PRN assist from family for heavy lifting and other IADLs PRIOR LEVEL OF FUNCTION Receives help from (family PRN for IADLs since initial abdominal surgery a few months ago) Level of Mobility Ambulatory- community Mobility Pike Independent gait without device History of Falls No ADL Performance ADL Performance: Independent PRESENTATION Oxygen Oxygen Therapy: None (Room air) Lines and Tubes Peripheral IV 06/04/25 Posterior;Right Forearm (Active) Pre-Session Sitting in chair, Lines intact RN agreeable to therapy session. Post-Session Sitting in chair, Call light in reach, RN notified, Lines intact All needs in reach. Bracing (if applicable) SUBJECTIVE PARTICIPANTS IN CARE Visitors Present No, Subjective Report Pt has NOT been: * Ambulating hallway distances since last PT treatment. Pt HAS been: * Ambulating in-room distances * Transferring Bed <> Chair since last PT treatment. Pt reports compliance with the PT-provided HEP that was earlier provided. Pt remains unaware when pt may be discharged from [facility]. Corporate Planning Manager (if applicable) OBJECTIVE & INTERVENTIONS PAIN Pt was without complaints of pain throughout the PT treatment. Prior to PT's departure: * rest was provided * pt was positioned for comfort * pillow support was provided DELIRIUM SCREENING RASS: Alert and calm Feature 3: Altered Level of Consciousness: Negative THERAPEUTIC ACTIVITY Treatment Minutes 40 TRANSFERS Level of Pike Physical/Non- physical Assist Adaptive Equipment Utilized Sit to Stand Stand-by assist Set-up required, Minimal cues Walker, rolling Stand to sit Stand-by assist Set-up required, Minimal cues Walker, rolling Bed to Chair Toilet Transfer Stand-by assist Ambulation, To toilet Set-up required, Minimal cues Walker, rolling Shower Transfer Interventions GAIT TRAINING Interventions PT presence was necessary for: * managing lines * progressing patient ambulation distances * monitoring patient vital sign stability * decreasing patient's risk of falling while progressing pt's distances Level of Pike Distance Adaptive Equipment Utilized Gait Standby assist, Minimum assistance 150 ft Forward posture, cues for RW management. Rolling walker Gait Analysis/ Training Gait Analysis: Forward posture and increased weight bearing on assistive device. Stairs Standby assist, Minimal verbal cues 1 flight Rails : Bilateral No device Stair Training Step to gait pattern. ASSESSMENT Pt is improving, as noted by: less assistance was required for pt to complete some or all transfers, pt demonstrated improved sitting and/or standing balance, and pt ambulated increased walking distances and with less assistance during this PT treatment compared to last PT treatment. Pt has the following impairments: impaired activity tolerance and impaired posture, which is limiting the pt from performing independent functional mobility. PT RECOMMENDATIONS Discharge Destination Home with assistance, Home health PT Discharge Equipment Rollator PLAN Pt may continue to benefit from skilled PT for addressing patient's impairments and reducing patient's participation restrictions and activity limitations. PT GOALS PT GOAL DETAILS DATE ASSESSED STATUS PROGRESS PT Goal 1: Patient will transition from supine to sitting with CGA. PT Goal 1 Established Date: 06/01/25 PT Goal 1 Time Frame: 2 weeks PT Goal 2: Patient will transfer from sitting to standing with SBA using least restrictive assistive device. PT Goal 2 Established Date: 06/01/25 PT Goal 2 Time Frame: 2 weeks PT Goal 3: Patient will ambulate x150 feet with CGA using least restrictive assistive device. PT Goal 3 Established Date: 06/01/25 PT Goal 3 Time Frame: 2 weeks PT Goal 4: Patient will naivgate x8 stairs with CGA using least restrictive assistive device. PT Goal 4 Established Date: 06/01/25 PT Goal 4 Time Frame: 2 weeks Written by Guillermo Treadwell on 06/07/25 at 1:02 PM. * Progress Notes - Rosalind Nava RN - 06/07/2025 8:09 AM EDT Epidural catheter removed yesterday. Catheter site clean, dry, intact, and open to air at this time. Acute Pain will sign off. Please Contact Acute Pain Service with any additional questions or concerns via [employer] orpage [phone]. * Progress Notes - Garrett Mazariegos MD - 06/07/2025 7:18 AM EDT Images from the original note were not included. 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 Her recovery was complicated by gastric perforation now s/p laparotomy with repair of pre-pyloric gastric ulcer using omental pedicle patch (04/01/25) at OSH. Presenting to for scheduled operation. 05/31/2025: diagnostic laparoscopy, portal lymph node dissection, segment 4B/5 partial hepatectomy,omental flap [Cavnar]. Pathology negative for malignancy. Interval: NAEO, afebrile and hemodynamically normal overnight on RA. Pain well controlled after d/cepidural and transitioning to PO meds. Tolerating GI soft diet without nausea or vomiting. Voiding appropriately, 6x BM overnight. I/O 24Hr 06/07 I: 240 PO 450 IVPB O: UOP x7, SOx6 Edited by: Garrett Mazariegos MD at 06/07/2025 0729 Review of Systems: Relevant review of systems was obtained as able and is negative unless stated above in HPI. Objective Objective: Vital signs: Vitals: 06/07/25 0326 BP: 111/68 Pulse: 77 Resp: 15 Temp: 36.8 ??C (98.2 ??F) SpO2: 93% Physical Exam: Physical Exam Constitutional: General: She is not in acute distress. Appearance: Normal appearance. She is not ill-appearing or toxic-appearing. HENT: Head: Normocephalic. Mouth/Throat: Mouth: Mucous membranes are moist. Eyes: Extraocular Movements: Extraocular movements intact. Cardiovascular: Rate and Rhythm: Normal rate. Pulses: Normal pulses. Pulmonary: Effort: Pulmonary effort is normal. Abdominal: Palpations: Abdomen is soft. Comments: Soft, midline incision healing well, reinier intact. LLQ blood blister, covered w/ Covaderm Skin: General: Skin is warm. Neurological: General: No focal deficit present. Mental Status: She is alert and oriented to person, place, and time. Psychiatric: Mood and Affect: Mood normal. Behavior: Behavior normal. Thought Content: Thought content normal. Judgment: Judgment normal. Intake/Output Summary (Last 24 hours) at 06/07/2025 0729 Last data filed at 06/07/2025 0600 Gross per 24 hour Intake 970 ml Output -- Net 970 ml Lines/Drains/Tubes: Patient Lines/Drains/Airways Status Active Airway None Output by Drain (mL) 06/05/25 07 - 06/05/25 18506/05/[id number] - 06/06/25 0659 06/06/25 07 - 06/06/25 1859 06/06/25 1900 - 06/07/25 0659 06/07/25 07 - 06/07/25 0729 Patient has no LDAs of requested type attached. Labs in last 18 hours: CBC WBC 11.74 (H) Hb 10.2 (L) Plt 304 Hct 30.5 (L) ANC ?? INR ??, PTT ??, Anti-Xa ?? MCV 92 BMP Na 137 Cl 104 BUN 7 (L) Glu 97 K 3.7 Co2 22 Cr 0.48 (L) Ca 8.9 iCa ?? Mg 1.7 (L), Phos 3.5 Lactate ?? LFT AST 28 AlkPhos 176 (H) T Prot 5.5 (L) ALK 36 (H) Bili 0.3 Alb ?? D.Bili ?? Lab Trends: H/H Results from last 7 days Lab Units 06/07/25 0339 06/06/25 0443 06/05/25 0343 HEMOGLOBIN g/dL 10.2* 10.0* 9.8* HEMATOCRIT % 30.5* 29.7* 29.9* INR Cr Results from last 7 days Lab Units 06/07/25 0339 06/06/25 0443 06/05/25 0343 CREATININE mg/dL 0.48* 0.49* 0.45* Lactate Results from last 7 days Lab Units 05/31/25 1704 LACTIC ACID, WHOLE B mmol/L 0.7 Radiographic Interpretation: No imagining today. Medications reviewed. Vital signs reviewed. Labs reviewed. Assessment/Plan Assessment and Plan: Plan: [ ] PT reeval for DC recs - Epidural D/C 06/07 - D/c miralax given multiple BMs - Restarted home ASA, statin, mirabegron - PT/OT re-eval - Encourage PO intake - Pathology negative for malignancy - Continue to monitor blood blister on LLQ, keep covered with covaderm Diet: GI soft GI ppx: pantoprazole Bowel Reg: reglan, zofran, miralax Abx: ----- DVT ppx: subQ heparin Pain: PO robaxin, oxycodone, breakthrough dilaudid LDA: PIV PT/OT: Subcute rehab PMR: subacute Edited by: Garrett Mazariegos MD at 06/07/2025 0729 Dispo: Ready for discharge Garrett Mazariegos MD Cosigned by Steve Veloz MD at 06/14/2025 4:28 PM EDT Associated attestation - Steve Veloz MD - 06/14/2025 4:28 PM EDT I saw and evaluated the patient with the resident/fellow. I discussed the case with the resident/fellow and agree with the findings and plan as documented. * Care Plan - Lolita Cornelius RN - 06/06/2025 8:30 PM EDT Problem: Adult Inpatient Plan of Care Goal: Plan of Care Review Outcome: Ongoing, Progressing Flowsheets (Taken 06/06/20251999) Plan of Care Reviewed With: patient Goal: Patient-Specific Goal (Individualized) Outcome: Ongoing, Progressing Flowsheets (Taken 06/06/20251999) Patient/Family-Specific Goals (Include Timeframe): Pt will remain free from falls/injury through out shift Goal: Absence of Hospital-Acquired Illness or Injury Outcome: Ongoing, Progressing Intervention: Identify and Manage Fall Risk Flowsheets (Taken 06/06/20251999) Safety Promotion/Fall Prevention: activity supervised fall prevention program maintained nonskid shoes/slippers when out of bed room organization consistent lighting adjusted assistive device/personal items within reach clutter-free environment maintained mobility aid in reach Intervention: Prevent Skin Injury Flowsheets (Taken 06/06/20251999) Skin Protection: protective footwear used transparent dressing maintained Intervention: Prevent Infection Flowsheets (Taken 06/06/20251999) Infection Prevention: cohorting utilized hand hygiene promoted single patient room provided visitors restricted/screened personal protective equipment utilized environmental surveillance performed equipment surfaces disinfected rest/sleep promoted Goal: Optimal Comfort and Wellbeing Outcome: Ongoing, Progressing Intervention: Monitor Pain and Promote Comfort Flowsheets (Taken 06/06/20251999) Pain Management Interventions: medication (see MAR) pillow support provided pain management plan reviewed with patient/caregiver care clustered relaxation techniques promoted rest quiet environment facilitated emotional support Intervention: Provide Person-Centered Care Flowsheets (Taken 06/06/20251999) Trust Relationship/Rapport: care explained questions answered choices provided questions encouraged emotional support provided reassurance provided empathic listening provided thoughts/feelings acknowledged Problem: Skin Injury Risk Increased Goal: Skin Health and Integrity Outcome: Ongoing, Progressing Intervention: Optimize Skin Protection Flowsheets (Taken 06/06/20251999) Pressure Reduction Techniques: frequent weight shift encouraged Pressure Reduction Devices: pressure-redistributing mattress utilized Skin Protection: protective footwear used transparent dressing maintained Intervention: Promote and Optimize Oral Intake Flowsheets (Taken 06/06/20251999) Oral Nutrition Promotion: rest periods promoted physical activity promoted calorie-dense foods provided calorie-dense liquids provided Nutrition Interventions: supplemental drinks provided frequent small meals provided Problem: Functional Deficit Goal: Improved Balance and Postural Control Outcome: Ongoing, Progressing Intervention: Optimize Balance and Safe Activity Flowsheets (Taken 06/06/20251999) Adaptive Equipment Use: used independently shower chair Safety Promotion/Fall Prevention: activity supervised fall prevention program maintained nonskid shoes/slippers when out of bed room organization consistent lighting adjusted assistive device/personal items within reach clutter-free environment maintained mobility aid in reach Self-Care Promotion: independence encouraged BADL personal objects within reach BADL personal routines maintained Goal: Optimal Cognitive Function Outcome: Ongoing, Progressing Intervention: Optimize Cognitive Function Flowsheets (Taken 06/06/20251999) Sensory Stimulation Regulation: auditory stimulation minimized care clustered lighting decreased tactile stimulation minimized quiet environment promoted visual stimulation minimized Environment Familiarity/Consistency: daily routine followed familiar objects from home provided personal clothing/items utilized Self-Care Promotion: independence encouraged BADL personal objects within reach BADL personal routines maintained Goal: Optimal Coordination Outcome: Ongoing, Progressing Intervention: Optimize Motor Coordination and Function Flowsheets (Taken 06/06/20251999) Self-Care Promotion: independence encouraged BADL personal objects within reach BADL personal routines maintained Goal: Improved Muscle Strength Outcome: Ongoing, Progressing Intervention: Optimize Muscle Strength Flowsheets (Taken 06/06/20251999) Adaptive Equipment Use: used independently shower chair Self-Care Promotion: independence encouraged BADL personal objects within reach BADL personal routines maintained Goal: Improved Muscle Tone Outcome: Ongoing, Progressing Intervention: Optimize Muscle Tone Flowsheets (Taken 06/06/20251999) Spasticity Management: weight-bearing facilitated Goal: Optimal Range of Motion Outcome: Ongoing, Progressing Intervention: Maintain Functional Joint Range Position Flowsheets (Taken 06/06/20251999) Positioning/Transfer Devices: pillows Goal: Compensation for Sensory Deficit Outcome: Ongoing, Progressing Intervention: Optimize Sensory Function Flowsheets (Taken 06/06/20251999) Pressure Reduction Techniques: frequent weight shift encouraged Sensation Impairment Protection: insensate areas closely monitored external pressure sources minimized Skin Protection: protective footwear used transparent dressing maintained Problem: Self-Care Deficit Goal: Improved Ability to Complete Activities of Daily Living Outcome: Ongoing, Progressing Intervention: Promote Activity and Functional Pike Flowsheets (Taken 06/06/20251999) Adaptive Equipment Use: used independently shower chair Self-Care Promotion: independence encouraged BADL personal objects within reach BADL personal routines maintained Problem: Fall Injury Risk Goal: Absence of Fall and Fall-Related Injury Outcome: Ongoing, Progressing Intervention: Identify and Manage Contributors Flowsheets (Taken 06/06/20251999) Medication Review/Management: medications reviewed high-risk medications identified Self-Care Promotion: independence encouraged BADL personal objects within reach BADL personal routines maintained Intervention: Promote Injury-Free Environment Flowsheets (Taken 06/06/20251999) Safety Promotion/Fall Prevention: activity supervised fall prevention program maintained nonskid shoes/slippers when out of bed room organization consistent lighting adjusted assistive device/personal items within reach clutter-free environment maintained mobility aid in reach Problem: Pain Acute Goal: Optimal Pain Control and Function Outcome: Ongoing, Progressing Intervention: Optimize Psychosocial Wellbeing Flowsheets (Taken 06/06/20251999) Supportive Measures: active listening utilized verbalization of feelings encouraged self-care encouraged positive reinforcement provided Diversional Activities: television Spiritual Activities Assistance: hope instilled Intervention: Develop Pain Management Plan Flowsheets (Taken 06/06/20251999) Pain Management Interventions: medication (see MAR) pillow support provided pain management plan reviewed with patient/caregiver care clustered relaxation techniques promoted rest quiet environment facilitated emotional support Intervention: Prevent or Manage Pain Flowsheets (Taken 06/06/20251999) Sensory Stimulation Regulation: auditory stimulation minimized care clustered lighting decreased tactile stimulation minimized quiet environment promoted visual stimulation minimized Bowel Elimination Promotion: adequate fluid intake promoted ambulation promoted Sleep/Rest Enhancement: awakenings minimized noise level reduced regular sleep/rest pattern promoted relaxation techniques promoted Medication Review/Management: medications reviewed high-risk medications identified * Progress Notes - Ross Cassidy MD - 06/06/2025 4:09 PM EDT Acute Pain Service Pain scale (0-10): 3/10 Side Effects Nausea/Vomiting: no Pruritus: no Confusion: no Sedation: no Numbness/Tingling: no Postural headache: no Catheter inspected per protocol: yes Additional side effects: no Outcomes Able to take PO: yes Has ambulated: yes Assessment & Plan in the Next 24 hours Assessment: doing well Plan: wean HOGSHEAD WEIGHER Plan explained/all questions answered/plan in agreement with: Patient Reason for Block: post-op pain management Epidural capped today. Transitioning to PO pain meds PRN. Patient is progressing appropriately. Epidural catheter will be discontinued when clinically appropriate. No acute events or concerns. * Consults - Mita Chou RN - 06/06/2025 3:20 PM EDT Acute Pain Service Follow-Up Evaluation Alyssia Holly is a 74 y.o. female Visit Type: Routine Current Pain Treatment: Epidural discontinued 06/06/25- Ex-lap, partial hepatectomy Follow-Up: Follow-up reason: APS rounds Pain Rating (0-10): 3 Comfort/ Acceptable Pain Level: 3 Epidural catheter removed @ 1526 tip intact. Acute Pain service will continue to monitor catheter site at least 12 hrs post removal. Follow-Up: Follow-Up: Site check tomorrow. Acute Pain Service Comments: Pain Service comments: Please Contact Acute Pain Service with any additional questions or concerns via [employer] orpage [phone]. * Progress Notes - Jarvis Pozo MD - 06/06/2025 11:31 AM EDT Images from the original note were not included. 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 Her recovery was complicated by gastric perforation now s/p laparotomy with repair of pre-pyloric gastric ulcer using omental pedicle patch (04/01/25) at OSH. Presenting to for scheduled operation. 05/31/2025: diagnostic laparoscopy, portal lymph node dissection, segment 4B/5 partial hepatectomy,omental flap [Cavnar]. Pathology negative for malignancy. Interval: NAEO, afebrile and hemodynamically normal overnight on RA. Pain controlled with epidural HOGSHEAD WEIGHER (rate decreased to 2). Tolerating GI soft diet. She is having Bms. I/O 24Hr 06/06 I: 720 PO 640 IV O: UOP + 8x Edited by: Jarvis Pozo MD at 06/06/2025 1131 Review of Systems: Relevant review of systems was obtained as able and is negative unless stated above in HPI. Objective Objective: Vital signs: Vitals: 06/06/25 1116 BP: 108/69 Pulse: 90 Resp: Temp: 36.8 ??C (98.2 ??F) SpO2: 95% Physical Exam: Physical Exam Constitutional: Appearance: Normal appearance. Cardiovascular: Rate and Rhythm: Normal rate. Pulmonary: Effort: Pulmonary effort is normal. Abdominal: General: Abdomen is flat. Palpations: Abdomen is soft. Comments: Soft, appropriately tender to palpation, midline incision healing well, reinier intact. LLQ blood blister, covered w/ Covaderm Skin: General: Skin is warm and dry. Neurological: General: No focal deficit present. Mental Status: She is alert and oriented to person, place, and time. Psychiatric: Mood and Affect: Mood normal. Behavior: Behavior normal. Intake/Output Summary (Last 24 hours) at 06/06/2025 1132 Last data filed at 06/05/2025 2330 Gross per 24 hour Intake 1360 ml Output -- Net 1360 ml Lines/Drains/Tubes: Patient Lines/Drains/Airways Status Active Airway None Output by Drain (mL) 06/04/25 07 - 06/04/25 18506/04/25 1900 - 06/05/25 0659 06/05/25 0700 - 06/05/25 1859 06/05/25 1900 - 06/06/25 0659 06/06/25 0700 - 06/06/25 1132 Patient has no LDAs of requested type attached. Labs in last 18 hours: CBC WBC 12.08 (H) Hb 10.0 (L) Plt 246 Hct 29.7 (L) ANC ?? INR ??, PTT ??, Anti-Xa ?? MCV 90 BMP Na 138 Cl 104 BUN 7 (L) Glu 93 K 3.6 Co2 24 Cr 0.49 (L) Ca 8.4 (L) iCa ?? Mg 1.6 (L), Phos 3.5 Lactate ?? LFT AST 24 AlkPhos 157 (H) T Prot 5.1 (L) ALK 41 (H) Bili 0.4 Alb ?? D.Bili ?? Lab Trends: H/H Results from last 7 days Lab Units 06/06/25 0443 06/05/25 0343 06/04/25 0502 HEMOGLOBIN g/dL 10.0* 9.8* 11.2 HEMATOCRIT % 29.7* 29.9* 34.6 INR Cr Results from last 7 days Lab Units 06/06/25 0443 06/05/25 0343 06/04/25 0502 CREATININE mg/dL 0.49* 0.45* 0.43* Lactate Results from last 7 days Lab Units 05/31/25 1704 LACTIC ACID, WHOLE B mmol/L 0.7 Radiographic Interpretation: No imagining today. Medications reviewed. Vital signs reviewed. Labs reviewed. Assessment/Plan Assessment and Plan: Medical Problems Problem List * (Principal) Adenocarcinoma of gallbladder (CMS/HCC) Overview Signed 06/02/2025 11:40 AM by Marbin Davis APRN 05/31/2025: diagnostic laparoscopy, portal lymph node dissection, segment 4B/5 partial hepatectomy,omental flap [Cavnar] HTN (hypertension) (Chronic) Peptic ulcer disease (Chronic) Post-op pain Overview Signed 06/02/2025 11:41 AM by Marbin Davis [employer]ICE PRESIDENT [employer]VERTISING - multimodal pain management - transition PO pain meds as diet advances and prior to discharge Electrolyte abnormality Overview Signed 06/02/2025 11:41 AM by Marbin Davis, [employer]VERTISING - daily/PRN CMP, Mg, Phos - replete as appropriate - goal: K>4, phos>3, mg>2 Leukocytosis Overview Signed 06/02/2025 11:41 AM by Marbin Davis APRN - common post-op finding likely reactive 2/2 surgery - daily/prn CBC - monitor for s/s of active infection Transaminitis Overview Signed 06/02/2025 11:42 AM by Marbin Davis APRN - Common post-op finding - daily/prn CMP - avoid hepatotoxic meds Breast implant rupture Present on Admission: Adenocarcinoma of gallbladder (CMS/HCC) Plan: - DC epidural today - Encourage PO intake - GI soft diet - Miralax - Pathology negative for malignancy - Continue to monitor blood blister on LLQ, keep covered with covaderm Diet: GI soft, D5LR@42 GI ppx: pantoprazole Bowel Reg: reglan, zofran, miralax Abx: ----- DVT ppx: subQ heparin Pain: PCEA w/ dilaudid, PO robaxin LDA: PIV, PCEA PT/OT: Subcute rehab PMR: subacute Edited by: Jarvis Pozo MD at 06/06/2025 1131 Dispo: Continue Current Level of Care Jarvis Pozo MD Cosigned by Dionisio Zurita MD at 06/14/2025 12:40 PM EDT Associated attestation - Dionisio Zurita MD - 06/14/2025 12:40 PM EDT I saw and evaluated the patient with the resident/fellow. I discussed the case with the resident/fellow and agree with the findings and plan as documented. * Consults - Mita Chou RN - 06/06/2025 11:13 AM EDT Acute Pain Service Follow-Up Evaluation Alyssia Holly is a 74 y.o. female Follow-Up: Follow-up reason: APS rounds Location: abdomen Pain Rating (0-10): 3 Comfort/ Acceptable Pain Level: 3 Acute Pain Service Comments: Patient is currently receiving the following: Epidural Catheter Medication: received 23 doses of Bupivacaine and Hydromorphone totaling 74.6 mL in 24 hours Will continue Patient Controlled Analgesia infusion until primary service decides it is appropriate. Follow-Up: Follow-Up: Acute Pain Service will continue to follow and adjust as needed. Visit Type: Routine Current Analgesic Treatments: Inpatient Analgesics Active Medications Medication Name Dose Route Frequency HYDROmorphone (Dilaudid) injection 0.25 mg 0.25 mg Intravenous q4h PRN for severe pain HYDROmorphone (PF) 10 mcg/mL + bupivacaine (PF) 1.25 mg/mL in 100 mL (PF) HOGSHEAD WEIGHER no dose Epidural Continuous hydromorphone 10 mcg/mL + bupivacaine 1.25 mg/mL clinician bolus dose 1-5 mL Epidural PRN for severe pain lidocaine (Lidoderm) 5 % patch 1 patch 1 patch Apply externally q24h methocarbamol (Robaxin) tablet 1,000 mg 1,000 mg Oral 4x daily naloxone (Narcan) 2 mg in sodium chloride 0.9 % 100 mL (0.02 mg/mL) infusion (Urinary Retention or Pruritus) 0.25-1 mcg/kg/hr Intravenous Titrated PRN for urinary retention, itching Rate: 0.81-3.23 mL/hr naloxone (Narcan) injection 0.08 mg 0.08 mg Intravenous q1 min PRN for respiratory depression, For respiratory rate < 10 oxyCODONE (Roxicodone) immediate release tablet 5 mg 5 mg Oral q4h PRN for moderate pain oxyCODONE (Roxicodone) immediate release tablet 10 mg 10 mg Oral q4h PRN for severe pain Epidural hydromorphone 10mcg bupivacaine 1.25mg 10/24/09 T6-T7 10cm at skin- Ex- lap, partial hepatectomy Blood pressure 108/69, pulse 90, temperature 36.8 ??C (98.2 ??F), resp. rate 18, height 1.651 m (5'5 ), weight 69.8 kg (153 lb 14.1 oz), SpO2 95%. Please Contact Acute Pain Service with any additional questions or concerns via [employer]. * Consults - Mita Chou RN - 06/06/2025 11:13 AM EDT Acute Pain Service Follow-Up Evaluation Alyssia Holly is a 74 y.o. female Visit Type: Routine Current Pain Treatment: Epidural hydromorphone 10mcg bupivacaine 1.25mg 10/24/09 T6-T7 10cm at skin- Ex- lap, partial hepatectomy Follow-Up: Follow-up reason: [facility] rounds Pain Rating (0-10): 3 Comfort/ Acceptable Pain Level: 3 Epidural capped @ 1113. Follow-Up: Follow-Up: Acute Pain service will continue to follow. Acute Pain Service Comments: Pain Service comments: Plan to discontinue when appropriate. Please Contact Acute Pain Service with any additional questions or concerns via [email or web address]. * Care Plan - Bonnie Schumacher RN - 06/06/2025 10:47 AM EDT Problem: Adult Inpatient Plan of Care Goal: Plan of Care Review Outcome: Ongoing, Progressing Flowsheets (Taken 06/06/2025 1042) Progress: improving Plan of Care Reviewed With: patient Goal: Patient-Specific Goal (Individualized) Outcome: Ongoing, Progressing Flowsheets (Taken 06/06/2025 0800) Patient/Family-Specific Goals (Include Timeframe): Pt will rate her pain as less than 4 on scale of 0-10 Pt will have no S/S infection Pt will participate in her ADLs today Pt will verbalize understanding of her POC Individualized Care Needs: pain and infection control Anxieties, Fears or Concerns: I would love to have some fleming with my breakfast Goal: Absence of Hospital-Acquired Illness or Injury Outcome: Ongoing, Progressing Intervention: Identify and Manage Fall Risk Flowsheets (Taken 06/05/20251999 by Lolita Cornelius, RN) Safety Promotion/Fall Prevention: activity supervised assistive device/personal items within reach clutter-free environment maintained fall prevention program maintained lighting adjusted mobility aid in reach nonskid shoes/slippers when out of bed room organization consistent Intervention: Prevent Skin Injury Flowsheets (Taken 06/05/20251999 by Lolita Cornelius, RN) Body Position: weight shifting Skin Protection: protective footwear used transparent dressing maintained Intervention: Prevent Infection Flowsheets (Taken 06/05/20251999 by Lolita Cornelius, RN) Infection Prevention: cohorting utilized hand hygiene promoted single patient room provided personal protective equipment utilized visitors restricted/screened environmental surveillance performed equipment surfaces disinfected rest/sleep promoted Goal: Optimal Comfort and Wellbeing Outcome: Ongoing, Progressing Intervention: Monitor Pain and Promote Comfort Flowsheets (Taken 06/06/2025 0330 by Lolita Cornelius, RN) Pain Management Interventions: pain pump in use Intervention: Provide Person-Centered Care Flowsheets (Taken 06/05/20251999 by Lolita Cornelius, RN) Trust Relationship/Rapport: care explained questions answered choices provided questions encouraged emotional support provided reassurance provided empathic listening provided thoughts/feelings acknowledged Problem: Skin Injury Risk Increased Goal: Skin Health and Integrity Outcome: Ongoing, Progressing Intervention: Optimize Skin Protection Flowsheets (Taken 06/05/20251999 by Lolita Cornelius, ELIEZER) Pressure Reduction Techniques: frequent weight shift encouraged heels elevated off bed Pressure Reduction Devices: pressure-redistributing mattress utilized positioning supports utilized Skin Protection: protective footwear used transparent dressing maintained Intervention: Promote and Optimize Oral Intake Flowsheets (Taken 06/06/2025 1042) Oral Nutrition Promotion: physical activity promoted Nutrition Interventions: food preferences provided Problem: Functional Deficit Goal: Improved Balance and Postural Control Outcome: Ongoing, Progressing Intervention: Optimize Balance and Safe Activity Flowsheets (Taken 06/05/20251999 by Lolita Cornelius, RN) Adaptive Equipment Use: used independently Safety Promotion/Fall Prevention: activity supervised assistive device/personal items within reach clutter-free environment maintained fall prevention program maintained lighting adjusted mobility aid in reach nonskid shoes/slippers when out of bed room organization consistent Self-Care Promotion: independence encouraged BADL personal objects within reach BADL personal routines maintained Goal: Optimal Cognitive Function Outcome: Ongoing, Progressing Intervention: Optimize Cognitive Function Flowsheets (Taken 06/05/20251999 by Lolita Cornelius, RN) Sensory Stimulation Regulation: quiet environment promoted care clustered lighting decreased Environment Familiarity/Consistency: daily routine followed familiar objects from home provided personal clothing/items utilized Self-Care Promotion: independence encouraged BADL personal objects within reach BADL personal routines maintained Goal: Optimal Coordination Outcome: Ongoing, Progressing Intervention: Optimize Motor Coordination and Function Flowsheets (Taken 06/05/20251999 by Lolita Cornelius, RN) Self-Care Promotion: independence encouraged BADL personal objects within reach BADL personal routines maintained Goal: Improved Muscle Strength Outcome: Ongoing, Progressing Intervention: Optimize Muscle Strength Flowsheets (Taken 06/05/20251999 by Lolita Cornelius, RN) Adaptive Equipment Use: used independently Goal: Improved Muscle Tone Outcome: Ongoing, Progressing Intervention: Optimize Muscle Tone Flowsheets (Taken 06/06/2025 1042) Spasticity Management: weight-bearing facilitated Goal: Optimal Range of Motion Outcome: Ongoing, Progressing Intervention: Maintain Functional Joint Range Position Flowsheets (Taken 06/05/20251999 by Lolita Cornelius, RN) Range of Motion: active ROM (range of motion) encouraged Positioning/Transfer Devices: pillows Goal: Compensation for Sensory Deficit Outcome: Ongoing, Progressing Intervention: Optimize Sensory Function Flowsheets (Taken 06/05/20251999 by Lolita Cornelius, ELIEZER) Pressure Reduction Techniques: frequent weight shift encouraged heels elevated off bed Sensation Impairment Protection: external pressure sources minimized insensate areas closely monitored Skin Protection: protective footwear used transparent dressing maintained Problem: Self-Care Deficit Goal: Improved Ability to Complete Activities of Daily Living Outcome: Ongoing, Progressing Intervention: Promote Activity and Functional Pike Flowsheets (Taken 06/05/20251999 by Lolita Cornelius, ELIEZER) Adaptive Equipment Use: used independently Self-Care Promotion: independence encouraged BADL personal objects within reach BADL personal routines maintained Problem: Fall Injury Risk Goal: Absence of Fall and Fall-Related Injury Outcome: Ongoing, Progressing Intervention: Identify and Manage Contributors Flowsheets Taken 06/06/2025 1042 by Bonnie Schumacher RN Medication Review/Management: medications reviewed Taken 06/05/20251999 by Lolita Cornelius RN Self-Care Promotion: independence encouraged BADL personal objects within reach BADL personal routines maintained Problem: Pain Acute Goal: Optimal Pain Control and Function Outcome: Ongoing, Progressing Intervention: Optimize Psychosocial Wellbeing Flowsheets Taken 06/06/2025 1042 by Bonnie Schumacher RN Spiritual Activities Assistance: affirmation provided Taken 06/05/20251999 by Lolita Cornelius RN Supportive Measures: active listening utilized self-care encouraged positive reinforcement provided relaxation techniques promoted Diversional Activities: smartphone television Intervention: Prevent or Manage Pain Flowsheets Taken 06/06/2025 1042 by Bonnie Schumacher RN Medication Review/Management: medications reviewed Taken 06/05/20251999 by Lolita Cornelius RN Sensory Stimulation Regulation: quiet environment promoted care clustered lighting decreased Sleep/Rest Enhancement: regular sleep/rest pattern promoted relaxation techniques promoted awakenings minimized * Consults - Julieta Brannon RN - 06/05/2025 10:20 PM EDT Acute Pain Service Follow-Up Evaluation Alyssia Holly is a 74 y.o. female Follow-Up: Follow-up reason: APS rounds Location: abdomen Pain Rating (0-10): 3 Comfort/ Acceptable Pain Level: 3 Acute Pain Service Comments: Patient is currently receiving the following: Epidural Catheter Medication: received 20 doses of Bupivacaine and Hydromorphone totaling 82.75 mL in 24 hours Will continue Patient Controlled Analgesia infusion until primary service decides it is appropriateto discontinue. Epidural Site: not examined Follow-Up: Follow-Up: Acute Pain Service will continue to follow and adjust as needed. Visit Type: Routine Current Analgesic Treatments: Inpatient Analgesics Active Medications Medication Name Dose Route Frequency HYDROmorphone (PF) 10 mcg/mL + bupivacaine (PF) 1.25 mg/mL in 100 mL (PF) HOGSHEAD WEIGHER no dose Epidural Continuous hydromorphone 10 mcg/mL + bupivacaine 1.25 mg/mL clinician bolus dose 1-5 mL Epidural PRN for severe pain methocarbamol (Robaxin) tablet 1,000 mg 1,000 mg Oral 4x daily naloxone (Narcan) 2 mg in sodium chloride 0.9 % 100 mL (0.02 mg/mL) infusion (Urinary Retention or Pruritus) 0.25-1 mcg/kg/hr Intravenous Titrated PRN for urinary retention, itching Rate: 0.81-3.23 mL/hr naloxone (Narcan) injection 0.08 mg 0.08 mg Intravenous q1 min PRN for respiratory depression, For respiratory rate < 10 Epidural hydromorphone 10mcg bupivacaine 1.25mg 10/24/09 T6-T7 10cm at skin- Ex- lap, partial hepatectomy Blood pressure 118/77, pulse 86, temperature 36.7 ??C (98.1 ??F), temperature source Oral, resp. rate 16, height 1.651 m (5' 5 ), weight 70.6 kg (155 lb 10.3 oz), SpO2 95%. Please Contact Acute Pain Service with any additional questions or concerns via Epic Secure Chat [phone]. * Care Plan - Lolita Cornelius RN - 06/05/2025 8:30 PM EDT Problem: Adult Inpatient Plan of Care Goal: Plan of Care Review Outcome: Ongoing, Progressing Flowsheets (Taken 06/05/20251999) Plan of Care Reviewed With: patient Goal: Patient-Specific Goal (Individualized) Outcome: Ongoing, Progressing Flowsheets (Taken 06/05/20251999) Patient/Family-Specific Goals (Include Timeframe): Pt will report adequate pain control with the use of iv pain licensing engineer pump by rating pain at less than 3/10 through out shift Goal: Absence of Hospital-Acquired Illness or Injury Outcome: Ongoing, Progressing Intervention: Prevent Skin Injury Flowsheets (Taken 06/05/20251999) Body Position: weight shifting Skin Protection: protective footwear used transparent dressing maintained Intervention: Prevent Infection Flowsheets (Taken 06/05/20251999) Infection Prevention: cohorting utilized hand hygiene promoted single patient room provided personal protective equipment utilized visitors restricted/screened environmental surveillance performed equipment surfaces disinfected rest/sleep promoted Goal: Optimal Comfort and Wellbeing Outcome: Ongoing, Progressing Intervention: Monitor Pain and Promote Comfort Flowsheets (Taken 06/05/20251999) Pain Management Interventions: medication (see MAR) pain pump in use pain management plan reviewed with patient/caregiver position adjusted pillow support provided rest relaxation techniques promoted quiet environment facilitated therapeutic touch care clustered Intervention: Provide Person-Centered Care Flowsheets (Taken 06/05/20251999) Trust Relationship/Rapport: care explained questions answered choices provided questions encouraged emotional support provided reassurance provided empathic listening provided thoughts/feelings acknowledged Problem: Skin Injury Risk Increased Goal: Skin Health and Integrity Outcome: Ongoing, Progressing Intervention: Optimize Skin Protection Flowsheets (Taken 06/05/20251999) Pressure Reduction Techniques: frequent weight shift encouraged heels elevated off bed Pressure Reduction Devices: pressure-redistributing mattress utilized positioning supports utilized Skin Protection: protective footwear used transparent dressing maintained Intervention: Promote and Optimize Oral Intake Flowsheets (Taken 06/05/20251999) Oral Nutrition Promotion: calorie-dense foods provided calorie-dense liquids provided physical activity promoted rest periods promoted Nutrition Interventions: frequent small meals provided supplemental drinks provided Problem: Functional Deficit Goal: Improved Balance and Postural Control Outcome: Ongoing, Progressing Intervention: Optimize Balance and Safe Activity Flowsheets (Taken 06/05/20251999) Adaptive Equipment Use: used independently Self-Care Promotion: independence encouraged BADL personal objects within reach BADL personal routines maintained Goal: Optimal Cognitive Function Outcome: Ongoing, Progressing Intervention: Optimize Cognitive Function Flowsheets (Taken 06/05/20251999) Sensory Stimulation Regulation: quiet environment promoted care clustered lighting decreased Environment Familiarity/Consistency: daily routine followed familiar objects from home provided personal clothing/items utilized Self-Care Promotion: independence encouraged BADL personal objects within reach BADL personal routines maintained Goal: Optimal Coordination Outcome: Ongoing, Progressing Intervention: Optimize Motor Coordination and Function Flowsheets (Taken 06/05/20251999) Self-Care Promotion: independence encouraged BADL personal objects within reach BADL personal routines maintained Goal: Improved Muscle Strength Outcome: Ongoing, Progressing Intervention: Optimize Muscle Strength Flowsheets (Taken 06/05/20251999) Adaptive Equipment Use: used independently Self-Care Promotion: independence encouraged BADL personal objects within reach BADL personal routines maintained Goal: Improved Muscle Tone Outcome: Ongoing, Progressing Intervention: Optimize Muscle Tone Flowsheets (Taken 06/05/20251999) Spasticity Management: positioned with supportive device Goal: Optimal Range of Motion Outcome: Ongoing, Progressing Intervention: Maintain Functional Joint Range Position Flowsheets (Taken 06/05/20251999) Positioning/Transfer Devices: pillows Goal: Compensation for Sensory Deficit Outcome: Ongoing, Progressing Intervention: Optimize Sensory Function Flowsheets (Taken 06/05/20251999) Pressure Reduction Techniques: frequent weight shift encouraged heels elevated off bed Sensation Impairment Protection: external pressure sources minimized insensate areas closely monitored Skin Protection: protective footwear used transparent dressing maintained Problem: Self-Care Deficit Goal: Improved Ability to Complete Activities of Daily Living Outcome: Ongoing, Progressing Intervention: Promote Activity and Functional Pike Flowsheets (Taken 06/05/20251999) Adaptive Equipment Use: used independently Self-Care Promotion: independence encouraged BADL personal objects within reach BADL personal routines maintained Problem: Fall Injury Risk Goal: Absence of Fall and Fall-Related Injury Outcome: Ongoing, Progressing Intervention: Identify and Manage Contributors Flowsheets (Taken 06/05/20251999) Medication Review/Management: medications reviewed high-risk medications identified Self-Care Promotion: independence encouraged BADL personal objects within reach BADL personal routines maintained Problem: Pain Acute Goal: Optimal Pain Control and Function Outcome: Ongoing, Progressing Intervention: Optimize Psychosocial Wellbeing Flowsheets (Taken 06/05/20251999) Supportive Measures: active listening utilized self-care encouraged positive reinforcement provided relaxation techniques promoted Diversional Activities: smartphone television Spiritual Activities Assistance: hope instilled Intervention: Develop Pain Management Plan Flowsheets (Taken 06/05/20251999) Pain Management Interventions: medication (see MAR) pain pump in use pain management plan reviewed with patient/caregiver position adjusted pillow support provided rest relaxation techniques promoted quiet environment facilitated therapeutic touch care clustered Intervention: Prevent or Manage Pain Flowsheets (Taken 06/05/20251999) Sensory Stimulation Regulation: quiet environment promoted care clustered lighting decreased Bowel Elimination Promotion: adequate fluid intake promoted ambulation promoted Sleep/Rest Enhancement: regular sleep/rest pattern promoted relaxation techniques promoted awakenings minimized Medication Review/Management: medications reviewed high-risk medications identified * Progress Notes - Ross Cassidy MD - 06/05/2025 7:53 PM EDT Acute Pain Service Pain scale (0-10): 3/10 Side Effects Nausea/Vomiting: no Pruritus: no Confusion: no Sedation: no Numbness/Tingling: no Postural headache: no Catheter inspected per protocol: no Additional side effects: no Outcomes Able to take PO: yes Has ambulated: yes Assessment & Plan in the Next 24 hours Assessment: doing well Plan explained/all questions answered/plan in agreement with: Patient Reason for Block: post-op pain management Patient seen and examined today on rounds with AP Nurse. Epidural analgesics infusing for the management of postop pain. Analgesic medication rate and use reviewed. Patient doing well, progressing appropriately, reports the epidural HOGSHEAD WEIGHER seems to be helping with pain management. No adverse effects noted. Acute pain service plans to continue the epidural HOGSHEAD WEIGHER for now and will continue to follow. Patient doing well, wean and possibly discontinue epidural * Consults - Mita Chou RN - 06/05/2025 1:03 PM EDT Decreased epidural basal order to 2ml/hr per primary team request. APS will continue to follow. * Consults - Mita Chou RN - 06/05/2025 10:59 AM EDT Acute Pain Service Follow-Up Evaluation Alyssia Holly is a 74 y.o. female Follow-Up: Follow-up reason: APS rounds Location: abdomen Pain Rating (0-10): good Acute Pain Service Comments: Patient is currently receiving the following: Epidural Catheter Medication: received 21 doses of Bupivacaine and Hydromorphone totaling 91.5 mL in 24 hours Will continue Patient Controlled Analgesia infusion until primary service decides it is appropriateto discontinue. Epidural Site: normal Follow-Up: Follow-Up: Acute Pain Service will continue to follow and adjust as needed. Visit Type: Routine Current Analgesic Treatments: Inpatient Analgesics Active Medications Medication Name Dose Route Frequency HYDROmorphone (PF) 10 mcg/mL + bupivacaine (PF) 1.25 mg/mL in 100 mL (PF) HOGSHEAD WEIGHER no dose Epidural Continuous hydromorphone 10 mcg/mL + bupivacaine 1.25 mg/mL clinician bolus dose 1-5 mL Epidural PRN for severe pain methocarbamol (Robaxin) tablet 1,000 mg 1,000 mg Oral 4x daily naloxone (Narcan) 2 mg in sodium chloride 0.9 % 100 mL (0.02 mg/mL) infusion (Urinary Retention or Pruritus) 0.25-1 mcg/kg/hr Intravenous Titrated PRN for urinary retention, itching Rate: 0.81-3.23 mL/hr naloxone (Narcan) injection 0.08 mg 0.08 mg Intravenous q1 min PRN for respiratory depression, For respiratory rate < 10 Epidural hydromorphone 10mcg bupivacaine 1.25mg 11/21/09 T6-T7 10cm at skin- Ex- lap, partial hepatectomy Blood pressure 111/72, pulse 86, temperature 37 ??C (98.6 ??F), resp. rate 18, height 1.651 m (5' 5 ), weight 70.6 kg (155 lb 10.3 oz), SpO2 95%. Please Contact Acute Pain Service with any additional questions or concerns via [email or web address] [phone]. * Care Plan - Reina Haile RN - 06/05/2025 9:23 AM EDT Problem: Adult Inpatient Plan of Care Goal: Plan of Care Review Outcome: Ongoing, Progressing Flowsheets (Taken 06/05/2025919) Progress: improving Plan of Care Reviewed With: patient Goal: Patient-Specific Goal (Individualized) Outcome: Ongoing, Progressing Flowsheets (Taken 06/05/2025919) Patient/Family-Specific Goals (Include Timeframe): Patient will remain free from injury during shift Individualized Care Needs: Safety Anxieties, Fears or Concerns: Pain Goal: Absence of Hospital-Acquired Illness or Injury Outcome: Ongoing, Progressing Intervention: Identify and Manage Fall Risk Flowsheets (Taken 06/05/2025 0800) Safety Promotion/Fall Prevention: safety round/check completed activity supervised clutter-free environment maintained lighting adjusted nonskid shoes/slippers when out of bed room organization consistent toileting scheduled mobility aid in reach assistive device/personal items within reach Goal: Optimal Comfort and Wellbeing Outcome: Ongoing, Progressing Intervention: Provide Person-Centered Care Flowsheets (Taken 06/05/2025919) Trust Relationship/Rapport: care explained choices provided emotional support provided empathic listening provided questions answered questions encouraged reassurance provided thoughts/feelings acknowledged Problem: Skin Injury Risk Increased Goal: Skin Health and Integrity Outcome: Ongoing, Progressing Intervention: Promote and Optimize Oral Intake Flowsheets (Taken 06/05/2025919) Oral Nutrition Promotion: physical activity promoted rest periods promoted Nutrition Interventions: frequent small meals provided Problem: Functional Deficit Goal: Improved Balance and Postural Control Outcome: Ongoing, Progressing Intervention: Optimize Balance and Safe Activity Flowsheets Taken 06/05/2025919 Activity Management: activity adjusted per tolerance Adaptive Equipment Use: use encouraged used independently Self-Care Promotion: independence encouraged BADL personal objects within reach BADL personal routines maintained Taken 06/05/2025 08 Safety Promotion/Fall Prevention: safety round/check completed activity supervised clutter-free environment maintained lighting adjusted nonskid shoes/slippers when out of bed room organization consistent toileting scheduled mobility aid in reach assistive device/personal items within reach Goal: Optimal Cognitive Function Outcome: Ongoing, Progressing Intervention: Optimize Cognitive Function Flowsheets (Taken 06/05/2025919) Sensory Stimulation Regulation: quiet environment promoted care clustered Environment Familiarity/Consistency: daily routine followed personal clothing/items utilized Self-Care Promotion: independence encouraged BADL personal objects within reach BADL personal routines maintained Goal: Optimal Coordination Outcome: Ongoing, Progressing Intervention: Optimize Motor Coordination and Function Flowsheets (Taken 06/05/2025919) Self-Care Promotion: independence encouraged BADL personal objects within reach BADL personal routines maintained Goal: Improved Muscle Strength Outcome: Ongoing, Progressing Intervention: Optimize Muscle Strength Flowsheets (Taken 06/05/2025919) Activity Management: activity adjusted per tolerance Activity Assistance Provided: assistance, stand-by Adaptive Equipment Use: use encouraged used independently Self-Care Promotion: independence encouraged BADL personal objects within reach BADL personal routines maintained Goal: Improved Muscle Tone Outcome: Ongoing, Progressing Intervention: Optimize Muscle Tone Flowsheets (Taken 06/05/2025919) Spasticity Management: positioned with supportive device Goal: Optimal Range of Motion Outcome: Ongoing, Progressing Intervention: Maintain Functional Joint Range Position Flowsheets (Taken 06/05/2025919) Range of Motion: active ROM (range of motion) encouraged Positioning/Transfer Devices: pillows in use Goal: Compensation for Sensory Deficit Outcome: Ongoing, Progressing Intervention: Optimize Sensory Function Flowsheets (Taken 06/05/2025919) Pressure Reduction Techniques: frequent weight shift encouraged Sensation Impairment Protection: external pressure sources minimized Skin Protection: silicone foam dressing in place Problem: Self-Care Deficit Goal: Improved Ability to Complete Activities of Daily Living Outcome: Ongoing, Progressing Intervention: Promote Activity and Functional Pike Flowsheets (Taken 06/05/2025919) Activity Assistance Provided: assistance, stand-by Adaptive Equipment Use: use encouraged used independently Self-Care Promotion: independence encouraged BADL personal objects within reach BADL personal routines maintained Problem: Fall Injury Risk Goal: Absence of Fall and Fall-Related Injury Outcome: Ongoing, Progressing Intervention: Promote Injury-Free Environment Flowsheets (Taken 06/05/2025 0800) Safety Promotion/Fall Prevention: safety round/check completed activity supervised clutter-free environment maintained lighting adjusted nonskid shoes/slippers when out of bed room organization consistent toileting scheduled mobility aid in reach assistive device/personal items within reach Problem: Pain Acute Goal: Optimal Pain Control and Function Outcome: Ongoing, Progressing Intervention: Optimize Psychosocial Wellbeing Flowsheets (Taken 06/05/2025 0920) Supportive Measures: active listening utilized relaxation techniques promoted self-care encouraged positive reinforcement provided Diversional Activities: television smartphone Spiritual Activities Assistance: hope instilled Intervention: Prevent or Manage Pain Flowsheets (Taken 06/05/2025 0920) Sensory Stimulation Regulation: quiet environment promoted care clustered * Progress Notes - Radha Estrella - 06/05/2025 8:01 AM EDT Images from the original note were not included. 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 Her recovery was complicated by gastric perforation now s/p laparotomy with repair of pre-pyloric gastric ulcer using omental pedicle patch (04/01/25) at OSH. Presenting to for scheduled operation. 05/31/2025: diagnostic laparoscopy, portal lymph node dissection, segment 4B/5 partial hepatectomy,omental flap [Cavnar]. Pathology negative for malignancy. OVN: Blood blister on LLQ. Covaderm placed this AM Mag replaced. Interval: NAEO, afebrile and hemodynamically normal overnight on RA. Seen this AM resting comfortably in bed. Pain controlled with epidural HOGSHEAD WEIGHER (rate decreased to 3), tolerating FLD after advancementyesterday with no nasuea/vomiting or distention. Labs this AM significant for downtrending leukocytosis (14.4 -> 12.27), down trending AST/ALT and Alsphos (152 -> 140) Pain team to assess patient today to decrease epidural rate and PO pain med recommendation. +F, -BM, doesn't want suppository. Will start miralax and dc suppository. Diet advanced to regular from FLD. I/O 24Hr 06/05 I: 920 PO 168 IV O: 200 UOP + 5x Edited by: Radha Estrella at 06/05/2025927 Review of Systems: Relevant review of systems was obtained as able and is negative unless stated above in HPI. Objective Objective: Vital signs: Vitals: 06/05/25 0800 BP: Pulse: Resp: 18 Temp: SpO2: 94% Physical Exam: Physical Exam Constitutional: Appearance: Normal appearance. Eyes: Extraocular Movements: Extraocular movements intact. Cardiovascular: Pulses: Normal pulses. Pulmonary: Effort: Pulmonary effort is normal. Abdominal: Palpations: Abdomen is soft. Comments: Soft, appropriately tender to palpation, midline incision healing well, reinier intact. LLQ blood blister, covered w/ Covaderm Musculoskeletal: Cervical back: Normal range of motion. Skin: General: Skin is warm. Neurological: Mental Status: She is alert and oriented to person, place, and time. Intake/Output Summary (Last 24 hours) at 06/05/2025927 Last data filed at 06/05/2025 0756 Gross per 24 hour Intake 848 ml Output 0 ml Net 848 ml Lines/Drains/Tubes: Patient Lines/Drains/Airways Status Active Airway None Output by Drain (mL) 06/03/25 07 - 06/03/25 18506/03/25 1900 - 06/04/25 0659 06/04/25 07 - 06/04/25 18506/04/25 190 - 06/05/25 0659 06/05/25 07 - 06/05/25927 Patient has no LDAs of requested type attached. Labs in last 18 hours: CBC WBC 12.27 (H) Hb 9.8 (L) Plt 226 Hct 29.9 (L) ANC ?? INR ??, PTT ??, Anti-Xa ?? MCV 92 BMP Na 136 Cl 104 BUN 6 (L) Glu 89 K 4.2 Co2 22 Cr 0.45 (L) Ca 8.0 (L) iCa ?? Mg 1.6 (L), Phos 3.0 Lactate ?? LFT AST 27 AlkPhos 140 T Prot 4.7 (L) ALK 50 (H) Bili 0.4 Alb ?? D.Bili ?? Lab Trends: H/H Results from last 7 days Lab Units 06/05/25 0343 06/04/25 0502 06/03/25 0614 HEMOGLOBIN g/dL 9.8* 11.2 11.1* HEMATOCRIT % 29.9* 34.6 33.0* INR Cr Results from last 7 days Lab Units 06/05/25 0343 06/04/25 0502 06/03/25 0352 CREATININE mg/dL 0.45* 0.43* 0.40* Lactate Results from last 7 days Lab Units 05/31/25 1704 LACTIC ACID, WHOLE B mmol/L 0.7 Radiographic Interpretation: No imagining today. Medications reviewed. Vital signs reviewed. Labs reviewed. Assessment/Plan Assessment and Plan: Plan: [ ] F/u pain team PO recs, possibly decrease epidural rate - Encourage PO intake - Transition to regular diet - d/c mIVF - Pathology negative for malignancy. Diet: regular diet, D5LR@42 GI ppx: pantoprazole Bowel Reg: reglan, zofran, miralax Abx: ----- DVT ppx: subQ heparin Pain: PCEA w/ dilaudid, PO robaxin LDA: PIV, PCEA PT/OT: Subcute rehab PMR: subacute Edited by: Radha Estrella at 06/05/2025 0928 Dispo: Continue Current Level of Care Radha Estrella, MS3 Cosigned by Dionisio Zurita MD at 06/14/2025 12:40 PM EDT Associated attestation - Dionisio Zurita MD - 06/14/2025 12:40 PM EDT I saw and evaluated the patient with the resident/fellow. I discussed the case with the resident/fellow and agree with the findings and plan as documented. * Care Plan - Jessica Ureña RN - 06/04/2025 11:26 PM EDT Problem: Adult Inpatient Plan of Care Goal: Plan of Care Review Outcome: Ongoing, Progressing Flowsheets (Taken 06/04/20252319) Progress: improving Plan of Care Reviewed With: patient Goal: Patient-Specific Goal (Individualized) Outcome: Ongoing, Progressing Flowsheets (Taken 06/04/20251999) Patient/Family-Specific Goals (Include Timeframe): Patient will experience tolerable pain levels with the continous pain pump in use this shift Individualized Care Needs: Medication, education and support Anxieties, Fears or Concerns: pain Goal: Absence of Hospital-Acquired Illness or Injury Outcome: Ongoing, Progressing Intervention: Identify and Manage Fall Risk Flowsheets (Taken 06/04/20251999) Safety Promotion/Fall Prevention: safety round/check completed activity supervised clutter-free environment maintained fall prevention program maintained lighting adjusted nonskid shoes/slippers when out of bed room organization consistent toileting scheduled mobility aid in reach assistive device/personal items within reach Intervention: Prevent Skin Injury Flowsheets Taken 06/04/20250 Body Position: weight shifting Taken 06/04/20251999 Skin Protection: transparent dressing maintained protective footwear used Intervention: Prevent and Manage VTE (Venous Thromboembolism) Risk Flowsheets (Taken 06/04/20250) VTE Prevention/Management: medication lower extremity bilateral SCDs (sequential compression devices) off previous patient education reinforced Intervention: Prevent Infection Flowsheets (Taken 06/04/20250) Infection Prevention: cohorting utilized personal protective equipment utilized equipment surfaces disinfected environmental surveillance performed rest/sleep promoted single patient room provided hand hygiene promoted visitors restricted/screened Goal: Optimal Comfort and Wellbeing Outcome: Ongoing, Progressing Intervention: Monitor Pain and Promote Comfort Flowsheets (Taken 06/04/20250) Pain Management Interventions: medication (see MAR) pain pump in use rest pain management plan reviewed with patient/caregiver pillow support provided Intervention: Provide Person-Centered Care Flowsheets (Taken 06/04/20252319) Trust Relationship/Rapport: care explained choices provided emotional support provided empathic listening provided questions answered reassurance provided questions encouraged thoughts/feelings acknowledged * Consults - Patricia Wooten RN - 06/04/2025 9:42 PM EDT Acute Pain Service Follow-Up Evaluation Alyssia Holly is a 74 y.o. female Follow-Up: Follow-up reason: APS rounds Location: abdomen Pain Rating (0-10): 3 Comfort/ Acceptable Pain Level: 3 Acute Pain Service Comments: Patient is currently receiving the following: Epidural Catheter Medication: received 22 doses of Bupivacaine and Hydromorphone totaling 114.6 mL in 24 hours Will continue Patient Controlled Analgesia infusion until primary service decides it is appropriateto discontinue. Epidural Site: not examined Follow-Up: Follow-Up: Acute Pain Service will continue to follow and adjust as needed. Visit Type: Routine Current Analgesic Treatments: Inpatient Analgesics Active Medications Medication Name Dose Route Frequency HYDROmorphone (PF) 10 mcg/mL + bupivacaine (PF) 1.25 mg/mL in 100 mL (PF) HOGSHEAD WEIGHER no dose Epidural Continuous hydromorphone 10 mcg/mL + bupivacaine 1.25 mg/mL clinician bolus dose 1-5 mL Epidural PRN for severe pain methocarbamol (Robaxin) tablet 1,000 mg 1,000 mg Oral 4x daily naloxone (Narcan) 2 mg in sodium chloride 0.9 % 100 mL (0.02 mg/mL) infusion (Urinary Retention or Pruritus) 0.25-1 mcg/kg/hr Intravenous Titrated PRN for urinary retention, itching Rate: 0.81-3.23 mL/hr naloxone (Narcan) injection 0.08 mg 0.08 mg Intravenous q1 min PRN for respiratory depression, For respiratory rate < 10 Epidural hydromorphone 10mcg bupivacaine 1.25mg 11/21/09 T6-T7 10cm at skin- Ex- lap, partial hepatectomy Blood pressure 116/75, pulse 93, temperature 36.8 ??C (98.2 ??F), temperature source Oral, resp. rate 18, height 1.651 m (5' 5 ), weight 70.9 kg (156 lb 4.9 oz), SpO2 94%. Please Contact Acute Pain Service with any additional questions or concerns via [employer]. * Consults - Nasreen Hair RN - 06/04/2025 5:32 PM EDT Acute Pain Service Follow-Up Evaluation Alyssia Holly is a 74 y.o. female Follow-Up: Follow-up reason: APS rounds Location: abdomen Pain Rating (0-10): 4 Comfort/ Acceptable Pain Level: 3 Acute Pain Service Comments: Patient is currently receiving the following: Epidural Catheter Medication: received 7 doses of Bupivacaine and Hydromorphone totaling 18.95 mL in 4 hours Will continue Patient Controlled Analgesia infusion until primary service decides it is appropriateto discontinue. Follow-Up: Follow-Up: Acute Pain Service will continue to follow and adjust as needed. Visit Type: Routine Current Analgesic Treatments: Inpatient Analgesics Active Medications Medication Name Dose Route Frequency HYDROmorphone (PF) 10 mcg/mL + bupivacaine (PF) 1.25 mg/mL in 100 mL (PF) HOGSHEAD WEIGHER no dose Epidural Continuous hydromorphone 10 mcg/mL + bupivacaine 1.25 mg/mL clinician bolus dose 1-5 mL Epidural PRN for severe pain methocarbamol (Robaxin) tablet 1,000 mg 1,000 mg Oral 4x daily naloxone (Narcan) 2 mg in sodium chloride 0.9 % 100 mL (0.02 mg/mL) infusion (Urinary Retention or Pruritus) 0.25-1 mcg/kg/hr Intravenous Titrated PRN for urinary retention, itching Rate: 0.81-3.23 mL/hr naloxone (Narcan) injection 0.08 mg 0.08 mg Intravenous q1 min PRN for respiratory depression, For respiratory rate < 10 Epidural hydromorphone 10mcg bupivacaine 1.25mg 11/21/09 T6-T7 10cm at skin- Ex- lap, partial hepatectomy Blood pressure 125/72, pulse 92, temperature 37.2 ??C (98.9 ??F), resp. rate 17, height 1.651 m (5'5 ), weight 70.9 kg (156 lb 4.9 oz), SpO2 96%. Please Contact Acute Pain Service with any additional questions or concerns via [email or web address] [phone]. * Progress Notes - Pauline Mohamud MD - 06/04/2025 5:18 PM EDT Acute Pain Service Pain management goal: 3/10 Pain scale (0-10): 4/10 Side Effects Nausea/Vomiting: no Pruritus: no Confusion: no Sedation: no Numbness/Tingling: no Postural headache: no Catheter inspected per protocol: yes Additional side effects: no Outcomes Able to take PO: yes Has ambulated: yes Assessment & Plan in the Next 24 hours Assessment: doing well Plan: Epidural rate decreased to 3cc/h. Encouragd ambulation. Pain well controlled Plan explained/all questions answered/plan in agreement with: Patient Reason for Block: post-op pain management * Care Plan - Melany Carrillo RN - 06/04/2025 1:42 PM EDT Problem: Adult Inpatient Plan of Care Goal: Plan of Care Review Outcome: Ongoing, Progressing Flowsheets (Taken 06/04/20251337) Progress: improving Outcome Evaluation: pt. understood the plan of care Plan of Care Reviewed With: patient Goal: Patient-Specific Goal (Individualized) Outcome: Ongoing, Progressing Goal: Absence of Hospital-Acquired Illness or Injury Outcome: Ongoing, Progressing Intervention: Identify and Manage Fall Risk Flowsheets (Taken 06/04/2025 133) Safety Promotion/Fall Prevention: activity supervised lighting adjusted mobility aid in reach assistive device/personal items within reach clutter-free environment maintained fall prevention program maintained Intervention: Prevent Skin Injury Flowsheets (Taken 06/04/2025 133) Body Position: weight shifting Skin Protection: protective footwear used transparent dressing maintained pulse oximeter probe site changed Intervention: Prevent and Manage VTE (Venous Thromboembolism) Risk Flowsheets (Taken 06/04/2025 133) VTE Prevention/Management: (ambulating) bilateral SCDs (sequential compression devices) off Intervention: Prevent Infection Flowsheets (Taken 06/04/2025 133) Infection Prevention: environmental surveillance performed personal protective equipment utilized rest/sleep promoted hand hygiene promoted single patient room provided Goal: Optimal Comfort and Wellbeing Outcome: Ongoing, Progressing Intervention: Monitor Pain and Promote Comfort Flowsheets (Taken 06/04/2025 1338) Pain Management Interventions: pain pump in use relaxation techniques promoted quiet environment facilitated Intervention: Provide Person-Centered Care Flowsheets (Taken 06/04/2025 133) Trust Relationship/Rapport: care explained questions encouraged reassurance provided questions answered Problem: Skin Injury Risk Increased Goal: Skin Health and Integrity Outcome: Ongoing, Progressing Intervention: Optimize Skin Protection Flowsheets (Taken 06/04/2025 133) Activity Management: activity adjusted per tolerance ambulated to bathroom Pressure Reduction Techniques: frequent weight shift encouraged Skin Protection: protective footwear used transparent dressing maintained pulse oximeter probe site changed Head of Bed (HOB) Positioning: HOB elevated Intervention: Promote and Optimize Oral Intake Flowsheets (Taken 06/04/2025 1338) Oral Nutrition Promotion: physical activity promoted Nutrition Interventions: frequent small meals provided Problem: Functional Deficit Goal: Improved Balance and Postural Control Outcome: Ongoing, Progressing Intervention: Optimize Balance and Safe Activity Flowsheets (Taken 06/04/2025 133) Activity Management: activity adjusted per tolerance ambulated to bathroom Adaptive Equipment Use: use encouraged used independently Safety Promotion/Fall Prevention: activity supervised lighting adjusted mobility aid in reach assistive device/personal items within reach clutter-free environment maintained fall prevention program maintained Self-Care Promotion: independence encouraged meal set-up provided adaptive equipment use encouraged Goal: Optimal Cognitive Function Outcome: Ongoing, Progressing Intervention: Optimize Cognitive Function Flowsheets (Taken 06/04/2025 133) Sensory Stimulation Regulation: quiet environment promoted care clustered lighting decreased Self-Care Promotion: independence encouraged meal set-up provided adaptive equipment use encouraged Goal: Optimal Coordination Outcome: Ongoing, Progressing Intervention: Optimize Motor Coordination and Function Flowsheets (Taken 06/04/2025 133) Self-Care Promotion: independence encouraged meal set-up provided adaptive equipment use encouraged Goal: Improved Muscle Strength Outcome: Ongoing, Progressing Intervention: Optimize Muscle Strength Flowsheets (Taken 06/04/2025 1338) Activity Management: activity adjusted per tolerance ambulated to bathroom Activity Assistance Provided: assistance, stand-by Adaptive Equipment Use: use encouraged used independently Self-Care Promotion: independence encouraged meal set-up provided adaptive equipment use encouraged Goal: Improved Muscle Tone Outcome: Ongoing, Progressing Intervention: Optimize Muscle Tone Flowsheets (Taken 06/04/2025 1338) Spasticity Management: positioned with supportive device Goal: Optimal Range of Motion Outcome: Ongoing, Progressing Intervention: Maintain Functional Joint Range Position Flowsheets (Taken 06/04/2025 133) Range of Motion: active ROM (range of motion) encouraged Positioning/Transfer Devices: pillows Goal: Compensation for Sensory Deficit Outcome: Ongoing, Progressing Intervention: Optimize Sensory Function Flowsheets (Taken 06/04/20251337) Pressure Reduction Techniques: frequent weight shift encouraged Skin Protection: protective footwear used transparent dressing maintained pulse oximeter probe site changed Problem: Self-Care Deficit Goal: Improved Ability to Complete Activities of Daily Living Outcome: Ongoing, Progressing Intervention: Promote Activity and Functional Pike Flowsheets (Taken 06/04/2025 1338) Activity Assistance Provided: assistance, stand-by Adaptive Equipment Use: use encouraged used independently Self-Care Promotion: independence encouraged meal set-up provided adaptive equipment use encouraged Problem: Fall Injury Risk Goal: Absence of Fall and Fall-Related Injury Outcome: Ongoing, Progressing Intervention: Identify and Manage Contributors Flowsheets (Taken 06/04/2025 1338) Medication Review/Management: medications reviewed Self-Care Promotion: independence encouraged meal set-up provided adaptive equipment use encouraged Intervention: Promote Injury-Free Environment Flowsheets (Taken 06/04/2025 1338) Safety Promotion/Fall Prevention: activity supervised lighting adjusted mobility aid in reach assistive device/personal items within reach clutter-free environment maintained fall prevention program maintained Problem: Pain Acute Goal: Optimal Pain Control and Function Outcome: Ongoing, Progressing Intervention: Optimize Psychosocial Wellbeing Flowsheets (Taken 06/04/2025 133) Supportive Measures: active listening utilized relaxation techniques promoted Diversional Activities: television smartphone Spiritual Activities Assistance: personal rituals encouraged Intervention: Develop Pain Management Plan Flowsheets (Taken 06/04/2025 133) Pain Management Interventions: pain pump in use relaxation techniques promoted quiet environment facilitated Intervention: Prevent or Manage Pain Flowsheets (Taken 06/04/2025 133) Sensory Stimulation Regulation: quiet environment promoted care clustered lighting decreased Sleep/Rest Enhancement: relaxation techniques promoted noise level reduced regular sleep/rest pattern promoted Medication Review/Management: medications reviewed * Progress Notes - Coreen Rios - 06/04/2025 10:53 AM EDT Occupational Therapy Treatment Patient Name: Alyssia Holly Today's Date: 06/04/2025 OT Discharge Recommendations: Acute rehab Equipment Recommended: Defer to facility Subjective I will be okay if I go home by myself. Participants in Care Family/Caregiver Present: No Presentation Oxygen Therapy: None (Room air) Lines and Tubes: Telemetry, Intravenous access, HOGSHEAD WEIGHER Pre-Session: Supine, Head of bed elevated, Lines intact Pre-Session Comments: RN agreeable to OT session. Post-Session: Sitting in chair, Call light in reach, RN notified, Lines intact, Chair alarm Post-Session Comments: Patient positioned for comfort following session with all needs met/within reach. RN notified of session details. Precautions Medical Precautions: Fall precautions, Post-Surgical precautions Post-Surgical Precautions: Abdominal precautions Objective Pain Pt reported 7/10 back pain and used her HOGSHEAD WEIGHER pumps twice during the session. Delirium Screening RASS: Alert and calm Confusion Assessment Method-ICU (CAM-ICU/PCAM-ICU) Feature 3: Altered Level of Consciousness: Negative Cognition Cognition Overall Cognitive Status: Within Functional Limits Arousal/Alertness: Appropriate responses to stimuli Mood/Behavior: Alert Orientation Level: Oriented X4 Single Step Commands: Consistently Multi-Step Commands: Consistently Method of Communication: Verbal Safety Judgment: Decreased awareness of need for assistance Awareness of Errors: Assistance required to identify errors made Deficit Awareness: Decreased awareness of deficits Attention Span: Attends with cues to redirect Bed Mobility Bed Mobility Exam: Rolling/Turning Level of Pike: Minimum assist (75% patient effort) Physical/Nonphysical Assist: Set-up required, Verbal Cues, Minimal cues Assistive Device: Bed rails Bed Mobility Exam: Scooting/Bridging Level of Pike: Stand-by assist Physical/Nonphysical Assist: Set-up required, Minimal cues Assistive Device: Bed rails Bed Mobility Exam: Supine to Sit Level of Pike: Minimum assist (75% patient's effort) Physical/Nonphysical Assist: Set-up required, Minimal cues Assistive Device: Bed rails Transfers Transfer Exam: Sit to stand Level of Pike: Contact guard Physical/Nonphysical Assist: Set-up required, Minimal cues Assistive Device: Walker, rolling Transfer Exam: Stand to Sit Level of Pike: Contact guard Physical/Nonphysical Assist: Set-up required, Minimal cues Assistive Device: Walker, rolling Toilet Transfer Level of Pike: Minimum assist (75% patient's effort) Physical/Nonphysical Assist: Set-up required, Minimal cues, Verbal Cues Type of Transfer: Ambulation, To toilet Assistive Device: Grab bar, Walker, rolling Self-Care Interventions Self Care/Home Management (ADLs) Time Entry: 11 Therapist set up environment to facilitate safe mobility. Pt was educated on log roll and required Min A for supine to sit EOB. Pt sat EOB for 5 min to acclimate to upright position with SBA. Pt stood via RW with CGA and ambulated short distance to the bathroom with CGA. Pt completed toileting tasks with Min A for sit to stand from low surface. Pt ambulated around her room via RW with CGA and transferred to the chair with CGA. Pt was positioned in the chair with pillows for comfort. Grooming Grooming Interventions: Pt declined grooming tasks due to fatigue. Lower Extremity Dressing Sock Level of Assistance: Dependent LE Dressing Where Assessed: Edge of bed LE Dressing Interventions: Pt requires Dep A to doff and don B socks and reported she uses a sock aid at home. Toileting Toileting Level of Assistance: SBA, Minimum assistance Where Assessed: Toilet Toileting Interventions: Pt required Min A to manage clothing and completed pericare seated with SBA Therapeutic Exercise (15 minutes) Therapist created and printed HEP. Pt was given green theraband and educated on BUE exercises of protraction/retraction, shoulder flex/ext, Abd/Add, horizontal Abd/Add, and wrist flex/ext x 10 reps to increase strength for functional tasks. Pt required verbal and visual cues for proper technique with frequent rest breaks. Assessment Pt tolerated session well and is progressing toward her goals. Pt demo decreased activity tolerance, increased pain, and requires increased assistance for self care tasks. Pt is a high fall risk and lives alone. Pt was independent prior to hospitalization and is now requiring assistance for bed mobility and functional transfers as well as self care tasks. Pt would benefit from acute inpatient reha b, as the patient requires the active and ongoing therapeutic interventions of multiple therapy disciplines, one of which must be physical or occupational therapy; the patient is able to participate in 3 hours of therapy 5 days per week; the patient will be expected to actively participate in and benefit significantly from the intensive rehabilitation program, which will be of practical value to improve the patient's functional capacity or adaptation to impairments in a reasonable period; the patient may require physician supervision by a rehabilitation physician three times weekly and 24-hour nursing; the patient requires an intensive and coordinated interdisciplinary approach to providingrehabilitation; the patient's medical and rehab needs cannot be met at a lower level of care, such as a subacute rehab facility, home health, or outpatient therapy. . OT Recommendations Discharge Destination: Acute rehab Discharge Equipment: Defer to facility Plan Continue OT plan of care Goals OT GOAL DETAILS Goal Established Date Time Frame Goal Status OT Goal 1: Pt will perform functional toilet transfer including entering/exiting the bathroom + pericare + LB dressing with min assist using DME as needed. 06/01/25 2 weeks OT Goal 2: Pt will perform three consecutive grooming activities standing at the sink with min assist using DME as needed. 06/01/25 2 weeks OT Goal 3: Pt will perform three consecutive LB dressing activities in sitting/standing with min assist using DME/AE as needed. 06/01/25 2 weeks OT Goal 4: Pt will perform UB/LB sponge bathing activity in sitting/standing with min assist using DME/AE as needed. 06/01/25 OT Goal 5: Pt will functionally ambulate household distances with min assist using DME as needed inorder to participate in ADLs/IADLs. 06/01/25 2 weeks Written by Coreen Rios on 06/04/25 at 2:59 PM. * Progress Notes - Guillermo Treadwell - 06/04/2025 10:20 AM EDT PHYSICAL THERAPY TREATMENT PATIENT DATA Patient Name Alyssia Holly Session Date 06/04/2025 Total Treatment Time 25 min PT Discharge Recommendations Subacute rehab PT Equipment Recommendations Defer to facility PRECAUTIONS Weight Bearing Precautions (if applicable) ROM Restrictions (if applicable) Medical Precautions Yes Medical Precautions: Fall precautions, Post-Surgical precautions Post-Surgical Precautions: Abdominal precautions HOME LIVING/SET-UP Lives With Alone Home Type Mobile home Home Equipment Rolling walker, Cane Home Layout One level, Stairs to enter with rails 8 Bathroom Layout Tub/Shower combo Standard Accessible via walker Additional Comments 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), pt recently off work the last few months due to previous abdominal surgeries, while at home after her initial abdominal surgeries pt independent with ADL mobility/basic ADLs requiring PRN assist from family for heavy lifting and other IADLs PRIOR LEVEL OF FUNCTION Receives help from (family PRN for IADLs since initial abdominal surgery a few months ago) Level of Mobility Ambulatory- community Mobility Pike Independent gait without device History of Falls No ADL Performance ADL Performance: Independent PRESENTATION Oxygen Oxygen Therapy: None (Room air) Lines and Tubes Epidural Catheter 05/31/25 1112 (Active) Peripheral IV 06/04/25 Posterior;Right Forearm (Active) Pre-Session Supine, Head of bed elevated, Lines intact RN agreeable to PT session as tolerated thisdate. Post-Session Sitting in chair, Call light in reach, RN notified, Lines intact, Chair alarm Patient positioned for comfort following session with all needs met/within reach. RN notified of session details. Bracing (if applicable) SUBJECTIVE PARTICIPANTS IN CARE Visitors Present No, Subjective Report Pt has NOT been: * Ambulating hallway distances since being admitted to the hospital. Pt HAS been: * Transferring Bed <> Chair since last PT treatment. Pt reports compliance with the PT-provided HEP that was earlier provided. Pt remains unaware when pt may be discharged from [facility]. Corporate Planning Manager (if applicable) OBJECTIVE & INTERVENTIONS PAIN Pain Intensity / Location Pre-Mobility: abdominal and back pain 5/10 Pain Intensity / Location Post-Mobility: abdominal and back pain /10 Prior to PT's departure: * rest was provided * pt was positioned for comfort * pillow support was provided * RN was informed of pt's pain DELIRIUM SCREENING RASS: Alert and calm Feature 3: Altered Level of Consciousness: Negative THERAPEUTIC ACTIVITY Treatment Minutes 25 BED MOBILITY Level of Pike Physical/Non- physical Assist Adaptive Equipment Utilized Rolling/ Turning Scooting/ Bridging Stand-by assist Set-up required, Minimal cues Bed rails Supine to Sit Minimum assist (75% patient's effort) Set-up required, Minimal cues Bed rails Sit to Supine Interventions TRANSFERS Level of Pike Physical/Non- physical Assist Adaptive Equipment Utilized Sit to Stand Contact guard Set-up required, Minimal cues Walker, rolling Stand to sit Contact guard Set-up required, Minimal cues Walker, rolling Bed to Chair Toilet Transfer Minimum assist (75% patient's effort) Ambulation, To toilet Set- up required, Minimal cues Walker, rolling, Grab bar Shower Transfer Interventions BALANCE Postural Appearance Posture: Stooped posture, Forward head, Rounded shoulders Level of Pike Balance Support Interventions Static Sit Supervision Right upper extremity support, Left upper extremity support, Feet supported Dynamic Sit Standby assisst Right upper extremity support, Left upper extremity support, Feet supported Dynamic Sitting-Balance: Lateral weight shifts, Anterior/Posterior weight shifts Static Stand Contact guard Right upper extremity support, Left upper extremity support Dynamic Stand Contact guard Right upper extremity support, Left upper extremity support During ambulation. AMBULATION Level of Pike Distance Adaptive Equipment Utilized Ambulation Contact guard assist 20 ft x 2 Rolling walker Comments Forward posture, decreased juan and increased abdominal pain. PROSTHETIST presence was necessary for: * managing lines * progressing patient ambulation distances * monitoring patient vital sign stability * decreasing patient's risk of falling while progressing pt's distances ASSESSMENT Pt is improving, as noted by: less assistance was required for pt to complete some or all transfers, pt demonstrated improved sitting and/or standing balance, and pt ambulated increased walking distances and with less assistance during this PT treatment compared to last PT treatment. Pt has the following impairments: impaired activity tolerance and pain, which is limiting the pt from performing independent functional mobility. Patient may benefit from Subacute Rehab for the following reasons: Pt remains as a high fall risk and is unsafe for discharge to home Pt ambulates at a slow pace and cannot perform ADL and iADLs functionally without prolonged rests Pt would benefit from further instruction improving functional transfers and ambulation PT RECOMMENDATIONS Discharge Destination Subacute rehab Discharge Equipment Defer to facility PLAN Pt may continue to benefit from skilled PT for addressing patient's impairments and reducing patient's participation restrictions and activity limitations. PT GOALS PT GOAL DETAILS DATE ASSESSED STATUS PROGRESS PT Goal 1: Patient will transition from supine to sitting with CGA. PT Goal 1 Established Date: 06/01/25 PT Goal 1 Time Frame: 2 weeks PT Goal 2: Patient will transfer from sitting to standing with SBA using least restrictive assistive device. PT Goal 2 Established Date: 06/01/25 PT Goal 2 Time Frame: 2 weeks PT Goal 3: Patient will ambulate x150 feet with CGA using least restrictive assistive device. PT Goal 3 Established Date: 06/01/25 PT Goal 3 Time Frame: 2 weeks PT Goal 4: Patient will naivgate x8 stairs with CGA using least restrictive assistive device. PT Goal 4 Established Date: 06/01/25 PT Goal 4 Time Frame: 2 weeks Written by Guillermo Treadwell on 06/04/25 at 11:38 AM. Cosigned by Suhail Boyd at 06/04/2025 11:44 AM EDT Associated attestation - Suhail Boyd - 06/04/2025 11:44 AM EDT PT and PROSTHETIST discussed pt's change in function and PT is in agreement with PROSTHETIST's change in PT recommendations. * Progress Notes - Garrett Mazariegos MD - 06/04/2025 9:32 AM EDT Images from the original note were not included. 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 Her recovery was complicated by gastric perforation now s/p laparotomy with repair of pre-pyloric gastric ulcer using omental pedicle patch (04/01/25) at OSH. Presenting to for scheduled operation. 05/31/2025: diagnostic laparoscopy, portal lymph node dissection, segment 4B/5 partial hepatectomy,omental flap [Cavnar]. Pathology negative for malignancy. Interval: NAEO, afebrile and hemodynamically normal overnight on RA. Seen this AM resting comfortably. Pain controlled with epidural HOGSHEAD WEIGHER, tolerating FLD after advancement yesterday with no nasuea/vomiting. Labs this AM significant for downtrending leukocytosis (16.6 -> 14.4), down trending AST/ALT but a new elevated Alk Phos (110 -> 152). Pain team to assess patient today to decrease epidural rate and PO pain med recommendation. -F, -BM, doesn't want suppository. Will start miralax and dcsuppository. I/O 24Hr 06/04 I: 300 PO 765 IV O: 400 UOP + 2x Edited by: Garrett Mazariegos MD at 06/04/2025 1041 Review of Systems: Relevant review of systems was obtained as able and is negative unless stated above in HPI. Objective Objective: Vital signs: Vitals: 06/04/25 0908 BP: Pulse: Resp: 17 Temp: SpO2: 92% Physical Exam: Physical Exam Physical Exam GEN: Not in acute distress EYES: No scleral icterus RESP/CHEST: No increased work of breathing, on RA CV: Normal rate ABD: Soft, appropriately tender to palpation, midline incision c/d/I, reinier intact. EXTREMITIES: L ankle swelling Neuro: No focal deficits Intake/Output Summary (Last 24 hours) at 06/04/2025 1041 Last data filed at 06/04/2025 0800 Gross per 24 hour Intake 1165 ml Output 900 ml Net 265 ml Lines/Drains/Tubes: Patient Lines/Drains/Airways Status Active Airway None Output by Drain (mL) 06/02/25 0700 - 06/02/25 1859 06/02/25 1900 - 06/03/25 0659 06/03/25 07 - 06/03/25 1859 06/03/25 1900 - 06/04/25 0659 06/04/25 07 - 06/04/25 1041 Patient has no LDAs of requested type attached. Labs in last 18 hours: CBC WBC 14.42 (H) Hb 11.2 Plt 213 Hct 34.6 ANC ?? INR ??, PTT ??, Anti-Xa ?? MCV 92 BMP Na 138 Cl 106 BUN 6 (L) Glu 105 (H) K 3.9 Co2 22 Cr 0.43 (L) Ca 8.3 (L) iCa ?? Mg 1.7 (L), Phos 3.0 Lactate ?? LFT AST 38 (H) AlkPhos 152 (H) T Prot 5.2 (L) ALK 76 (H) Bili 0.5 Alb ?? D.Bili ?? Lab Trends: H/H Results from last 7 days Lab Units 06/04/25 0502 06/03/25 0614 06/02/25 0213 HEMOGLOBIN g/dL 11.2 11.1* 11.5 HEMATOCRIT % 34.6 33.0* 34.1 INR Cr Results from last 7 days Lab Units 06/04/25 0502 06/03/25 0352 06/02/25 0213 CREATININE mg/dL 0.43* 0.40* 0.49* Lactate Results from last 7 days Lab Units 05/31/25 1704 LACTIC ACID, WHOLE B mmol/L 0.7 Radiographic Interpretation: I have reviewed the imaging above and agree with the radiologist interpretation. Medications reviewed. Vital signs reviewed. Labs reviewed. Assessment/Plan Assessment and Plan: Medical Problems Problem List * (Principal) Adenocarcinoma of gallbladder (CMS/HCC) Overview Signed 06/02/2025 11:40 AM by Marbin Davis APRN 05/31/2025: diagnostic laparoscopy, portal lymph node dissection, segment 4B/5 partial hepatectomy,omental flap [Roselia] HTN (hypertension) (Chronic) Peptic ulcer disease (Chronic) Post-op pain Overview Signed 06/02/2025 11:41 AM by Marbin Davis VICE PRESIDENT OF ADVERTISING - multimodal pain management - transition PO pain meds as diet advances and prior to discharge Electrolyte abnormality Overview Signed 06/02/2025 11:41 AM by Marbin Davis, VICE PRESIDENT OF ADVERTISING - daily/PRN CMP, Mg, Phos - replete as appropriate - goal: K>4, phos>3, mg>2 Leukocytosis Overview Signed 06/02/2025 11:41 AM by Marbin Davis VICE PRESIDENT OF ADVERTISING - common post-op finding likely reactive 2/2 surgery - daily/prn CBC - monitor for s/s of active infection Transaminitis Overview Signed 06/02/2025 11:42 AM by Marbin Davis VICE PRESIDENT OF ADVERTISING - Common post-op finding - daily/prn CMP - avoid hepatotoxic meds Breast implant rupture Present on Admission: Adenocarcinoma of gallbladder (CMS/HCC) Plan: [ ] F/u pain team PO recs, possibly decrease epidural rate - Encourage PO intake - 1/2 mIVF - Pathology negative for malignancy. Diet: FLD, D5LR@42 GI ppx: pantoprazole Bowel Reg: reglan, zofran, miralax Abx: ----- DVT ppx: subQ heparin Pain: PCEA w/ dilaudid, PO robaxin LDA: PIV, PCEA PT/OT: Acute rehab PMR: subacute Edited by: Garrett Mazariegos MD at 06/04/2025 1041 Dispo: Continue Current Level of Care Garrett Mazariegos MD Cosigned by Steve Veloz MD at 06/14/2025 4:27 PM EDT Associated attestation - Steve Veloz MD - 06/14/2025 4:27 PM EDT I saw and evaluated the patient with the resident/fellow. I discussed the case with the resident/fellow and agree with the findings and plan as documented. * Consults - Nasreen Hair RN - 06/04/2025 9:07 AM EDT Acute Pain Service Follow-Up Evaluation Alyssia Holly is a 74 y.o. female Follow-Up: Follow-up reason: APS rounds Location: abdomen Pain Rating (0-10): 4 Comfort/ Acceptable Pain Level: 3 Acute Pain Service Comments: Patient is currently receiving the following: Epidural Catheter Medication: received 26 doses of Bupivacaine and Hydromorphone totaling 144 mL in24 hours BACK CHECK FINE Decreased Epidural basal rate 3ml/hr at 0900. Will continue Patient Controlled Analgesia infusion until primary service decides it is appropriateto discontinue. Follow-Up: Follow-Up: Acute Pain Service will continue to follow and adjust as needed. Visit Type: Routine Current Analgesic Treatments: Inpatient Analgesics Active Medications Medication Name Dose Route Frequency HYDROmorphone (PF) 10 mcg/mL + bupivacaine (PF) 1.25 mg/mL in 100 mL (PF) HOGSHEAD WEIGHER no dose Epidural Continuous hydromorphone 10 mcg/mL + bupivacaine 1.25 mg/mL clinician bolus dose 1-5 mL Epidural PRN for severe pain methocarbamol (Robaxin) tablet 1,000 mg 1,000 mg Oral 4x daily naloxone (Narcan) 2 mg in sodium chloride 0.9 % 100 mL (0.02 mg/mL) infusion (Urinary Retention or Pruritus) 0.25-1 mcg/kg/hr Intravenous Titrated PRN for urinary retention, itching Rate: 0.81-3.23 mL/hr naloxone (Narcan) injection 0.08 mg 0.08 mg Intravenous q1 min PRN for respiratory depression, For respiratory rate < 10 Epidural hydromorphone 10mcg bupivacaine 1.25mg 11/21/09 T6-T7 10cm at skin- Ex- lap, partial hepatectomy Blood pressure 123/77, pulse 81, temperature 36.9 ??C (98.5 ??F), temperature source Oral, resp. rate 17, height 1.651 m (5' 5 ), weight 70.9 kg (156 lb 4.9 oz), SpO2 92%. Please Contact Acute Pain Service with any additional questions or concerns via [email or web address] [phone]. * Care Plan - Jessica Ureña RN - 06/03/2025 10:45 PM EDT Problem: Adult Inpatient Plan of Care Goal: Plan of Care Review Outcome: Ongoing, Progressing Flowsheets (Taken 06/03/2025 2240) Progress: improving Plan of Care Reviewed With: patient Goal: Patient-Specific Goal (Individualized) Outcome: Ongoing, Progressing Flowsheets (Taken 06/03/20251999) Patient/Family-Specific Goals (Include Timeframe): Patient will experience tolerable pain levels with the continous pain pump in use this shift Individualized Care Needs: Medication, education and support Anxieties, Fears or Concerns: pain Goal: Absence of Hospital-Acquired Illness or Injury Outcome: Ongoing, Progressing Intervention: Identify and Manage Fall Risk Flowsheets (Taken 06/03/20251999) Safety Promotion/Fall Prevention: safety round/check completed activity supervised clutter-free environment maintained fall prevention program maintained lighting adjusted nonskid shoes/slippers when out of bed room organization consistent toileting scheduled Intervention: Prevent Skin Injury Flowsheets Taken 06/03/20252199 Body Position: supine, legs elevated Taken 06/03/20251999 Skin Protection: transparent dressing maintained protective footwear used Intervention: Prevent and Manage VTE (Venous Thromboembolism) Risk Flowsheets (Taken 06/03/20251999) VTE Prevention/Management: bilateral lower extremity SCDs (sequential compression devices) off previous patient education reinforced medication Intervention: Prevent Infection Flowsheets (Taken 06/02/20252210) Infection Prevention: cohorting utilized environmental surveillance performed equipment surfaces disinfected hand hygiene promoted visitors restricted/screened single patient room provided rest/sleep promoted personal protective equipment utilized Goal: Optimal Comfort and Wellbeing Outcome: Ongoing, Progressing Intervention: Monitor Pain and Promote Comfort Flowsheets (Taken 06/03/20251999) Pain Management Interventions: medication (see MAR) pain management plan reviewed with patient/caregiver pain pump in use pillow support provided position adjusted quiet environment facilitated relaxation techniques promoted rest Intervention: Provide Person-Centered Care Flowsheets (Taken 06/02/20252210) Trust Relationship/Rapport: care explained choices provided emotional support provided empathic listening provided questions answered reassurance provided questions encouraged thoughts/feelings acknowledged * Consults - Patricia Wooten RN - 06/03/2025 8:48 PM EDT Acute Pain Service Follow-Up Evaluation Alyssia Holly is a 74 y.o. female Follow-Up: Follow-up reason: APS rounds Location: abdomen Pain Rating (0-10): 5 Comfort/ Acceptable Pain Level: 2 Acute Pain Service Comments: Patient is currently receiving the following: Epidural Catheter Medication: received 28.6 mL doses of Bupivacaine and Hydromorphone totaling 146.75 mL in 24 hours Will continue Patient Controlled Analgesia infusion until primary service decides it is appropriateto discontinue. Epidural Site: not examined Follow-Up: Follow-Up: Acute Pain Service will continue to follow and adjust as needed. Visit Type: Routine Current Analgesic Treatments: Inpatient Analgesics Active Medications Medication Name Dose Route Frequency HYDROmorphone (PF) 10 mcg/mL + bupivacaine (PF) 1.25 mg/mL in 100 mL (PF) HOGSHEAD WEIGHER no dose Epidural Continuous hydromorphone 10 mcg/mL + bupivacaine 1.25 mg/mL clinician bolus dose 1-5 mL Epidural PRN for severe pain methocarbamol (Robaxin) tablet 1,000 mg 1,000 mg Oral 4x daily naloxone (Narcan) 2 mg in sodium chloride 0.9 % 100 mL (0.02 mg/mL) infusion (Urinary Retention or Pruritus) 0.25-1 mcg/kg/hr Intravenous Titrated PRN for urinary retention, itching Rate: 0.81-3.23 mL/hr naloxone (Narcan) injection 0.08 mg 0.08 mg Intravenous q1 min PRN for respiratory depression, For respiratory rate < 10 Future Medications Medication Name Dose Route Frequency Epidural hydromorphone 10mcg bupivacaine 1.25mg 01/21/10 T6-T7 10cm at skin- Ex- lap, partial hepatectomy Blood pressure 138/79, pulse 93, temperature 37.4 ??C (99.4 ??F), temperature source Oral, resp. rate 18, height 1.651 m (5' 5 ), weight 69.3 kg (152 lb 12.5 oz), SpO2 95%. Please Contact Acute Pain Service with any additional questions or concerns via [email or web address] [phone]. * Care Plan - Suyapa Washington - 06/03/2025 6:08 PM EDT Problem: Adult Inpatient Plan of Care Goal: Plan of Care Review Outcome: Ongoing, Progressing Flowsheets (Taken 06/03/20251805) Progress: improving Outcome Evaluation: patient will ambulate more frequently, 3x a shift Plan of Care Reviewed With: patient Goal: Patient-Specific Goal (Individualized) Outcome: Ongoing, Progressing Goal: Absence of Hospital-Acquired Illness or Injury Outcome: Ongoing, Progressing Goal: Optimal Comfort and Wellbeing Outcome: Ongoing, Progressing Problem: Skin Injury Risk Increased Goal: Skin Health and Integrity Outcome: Ongoing, Progressing Intervention: Optimize Skin Protection Flowsheets Taken 06/03/20251805 by Suyapa Washington Activity Management: activity adjusted per tolerance Head of Bed (HOB) Positioning: HOB at 30-45 degrees Taken 06/02/20252210 by Jessica Ureña, ELIEZER Pressure Reduction Techniques: frequent weight shift encouraged rest period provided between sit times heels elevated off bed Problem: Functional Deficit Goal: Improved Balance and Postural Control Outcome: Ongoing, Progressing Intervention: Optimize Balance and Safe Activity Flowsheets (Taken 06/03/20251805) Activity Management: activity adjusted per tolerance Adaptive Equipment Use: use encouraged used independently Self-Care Promotion: independence encouraged Goal: Optimal Cognitive Function Outcome: Ongoing, Progressing Goal: Optimal Coordination Outcome: Ongoing, Progressing Goal: Improved Muscle Strength Outcome: Ongoing, Progressing Intervention: Optimize Muscle Strength Flowsheets (Taken 06/03/20251805) Activity Management: activity adjusted per tolerance Adaptive Equipment Use: use encouraged used independently Self-Care Promotion: independence encouraged Goal: Improved Muscle Tone Outcome: Ongoing, Progressing Goal: Optimal Range of Motion Outcome: Ongoing, Progressing Goal: Compensation for Sensory Deficit Outcome: Ongoing, Progressing Problem: Self-Care Deficit Goal: Improved Ability to Complete Activities of Daily Living Outcome: Ongoing, Progressing Problem: Fall Injury Risk Goal: Absence of Fall and Fall-Related Injury Outcome: Ongoing, Progressing Intervention: Identify and Manage Contributors Flowsheets (Taken 06/03/20251805) Medication Review/Management: medications reviewed Self-Care Promotion: independence encouraged Problem: Adult Inpatient Plan of Care Goal: Patient-Specific Goal (Individualized) Outcome: Ongoing, Progressing Problem: Adult Inpatient Plan of Care Goal: Optimal Comfort and Wellbeing Outcome: Ongoing, Progressing Problem: Skin Injury Risk Increased Goal: Skin Health and Integrity Outcome: Ongoing, Progressing Intervention: Optimize Skin Protection Flowsheets Taken 06/03/20251805 by Suyapa Washington Activity Management: activity adjusted per tolerance Head of Bed (HOB) Positioning: HOB at 30-45 degrees Taken 06/02/20252210 by Jessica Ureña RN Pressure Reduction Techniques: frequent weight shift encouraged rest period provided between sit times heels elevated off bed * Progress Notes - Ross Cassidy MD - 06/03/2025 3:43 PM EDT Acute Pain Service Pain scale (0-10): 5/10 Side Effects Nausea/Vomiting: no Pruritus: no Confusion: no Sedation: no Numbness/Tingling: no Postural headache: no Catheter inspected per protocol: yes Additional side effects: no Outcomes Able to take PO: yes Has ambulated: yes Assessment & Plan in the Next 24 hours Assessment: doing well Plan explained/all questions answered/plan in agreement with: Patient Reason for Block: post-op pain management Patient seen and examined today on rounds with AP Nurse. Epidural analgesics infusing for the management of postop pain. Analgesic medication rate and use reviewed. Patient doing well, progressing appropriately, reports the epidural HOGSHEAD WEIGHER seems to be helping with pain management. No adverse effects noted. Acute pain service plans to continue the epidural HOGSHEAD WEIGHER for now and will continue to follow. * Progress Notes - Garrett Mazariegos MD - 06/03/2025 12:58 PM EDT Images from the original note were not included. 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 Her recovery was complicated by gastric perforation now s/p laparotomy with repair of pre-pyloric gastric ulcer using omental pedicle patch (04/01/25) at OSH. Presenting to for scheduled operation. 05/31/2025: diagnostic laparoscopy, portal lymph node dissection, segment 4B/5 partial hepatectomy,omental flap [Cavnar] Interval: NAEO, AFHDS on RA. Voided without difficulty after lilly removal yesterday 06/02. Pain controlled with epidural HOGSHEAD WEIGHER, tolerating CLD with no nasuea/vomiting. Low PO intake (150) as she prefers to have her broth/tea warm. Labs this AM significant for downtrending leukocytosis (19.6 -> 16.6), hypokalemia (3.3) and downtrending LFTs. I/O 24Hr 06/03 I: 150 PO 1.4L IV O: 100 UOP + 2x Edited by: Garrett Mazariegos MD at 06/03/2025 1254 Review of Systems: Relevant review of systems was obtained as able and is negative unless stated above in HPI. Objective Objective: Vital signs: Vitals: 06/03/25 1105 BP: 109/70 Pulse: 82 Resp: 18 Temp: 36.8 ??C (98.2 ??F) SpO2: 91% Physical Exam: Physical Exam GEN: Not in acute distress EYES: No scleral icterus RESP/CHEST: No increased work of breathing, on RA CV: Normal rate ABD: Soft, appropriately tender to palpation, midline incision c/d/I, reinier intact. EXTREMITIES: L ankle swelling Neuro: No focal deficits Intake/Output Summary (Last 24 hours) at 06/03/2025 1401 Last data filed at 06/03/2025 0647 Gross per 24 hour Intake 2195 ml Output 400 ml Net 1795 ml Lines/Drains/Tubes: Patient Lines/Drains/Airways Status Active Airway None Output by Drain (mL) 06/01/25699 - 06/01/25185806/01/251899 - 06/02/25 0659 06/02/25699 - 06/02/25 18506/02/25 190 - 06/03/25 0659 06/03/25 07 - 06/03/25 1401 Patient has no LDAs of requested type attached. Labs in last 18 hours: CBC WBC 16.61 (H) Hb 11.1 (L) Plt 182 Hct 33.0 (L) ANC ?? INR ??, PTT ??, Anti-Xa ?? MCV 92 BMP Na 140 Cl 107 BUN 7 (L) Glu 100 (H) K 3.3 (L) Co2 21 (L) Cr 0.40 (L) Ca 7.9 (L) iCa ?? Mg 1.7 (L), Phos 2.6 Lactate ?? LFT AST 68 (H) AlkPhos 110 T Prot 4.8 (L) ALK 110 (H) Bili 0.5 Alb ?? D.Bili ?? Lab Trends: H/H Results from last 7 days Lab Units 06/03/25 0614 06/02/2521206/01/25 0925 HEMOGLOBIN g/dL 11.1* 11.5 12.7 HEMATOCRIT % 33.0* 34.1 38.2 INR Cr Results from last 7 days Lab Units 06/03/25 0352 06/02/25 02106/01/25 0925 CREATININE mg/dL 0.40* 0.49* 0.56* Lactate Results from last 7 days Lab Units 05/31/25 1704 LACTIC ACID, WHOLE B mmol/L 0.7 Radiographic Interpretation: I have reviewed the imaging above and agree with the radiologist interpretation. Medications reviewed. Vital signs reviewed. Labs reviewed. Assessment/Plan Assessment and Plan: Medical Problems Problem List * (Principal) Adenocarcinoma of gallbladder (CMS/HCC) Overview Signed 06/02/2025 11:40 AM by Marbin Davis APRN 05/31/2025: diagnostic laparoscopy, portal lymph node dissection, segment 4B/5 partial hepatectomy,omental flap [Roselia] HTN (hypertension) (Chronic) Peptic ulcer disease (Chronic) Post-op pain Overview Signed 06/02/2025 11:41 AM by Marbin Davis APRN - multimodal pain management - transition PO pain meds as diet advances and prior to discharge Electrolyte abnormality Overview Signed 06/02/2025 11:41 AM by Marbin Davis VICE PRESIDENT OF ADVERTISING - daily/PRN CMP, Mg, Phos - replete as appropriate - goal: K>4, phos>3, mg>2 Leukocytosis Overview Signed 06/02/2025 11:41 AM by Marbin Davis APRN - common post-op finding likely reactive 2/2 surgery - daily/prn CBC - monitor for s/s of active infection Transaminitis Overview Signed 06/02/2025 11:42 AM by Marbin Davis APRN - Common post-op finding - daily/prn CMP - avoid hepatotoxic meds Breast implant rupture Present on Admission: Adenocarcinoma of gallbladder (CMS/HCC) Plan: - Encourage PO intake - 1/2 mIVF Diet: CLD, D5LR@42 GI ppx: pantoprazole Bowel Reg: reglan Abx: ----- DVT ppx: subQ heparin Pain: PCEA w/ dilaudid, IV robaxin LDA: PIV, PCEA, PT/OT: Acute rehab PMR: subacute Edited by: Garrett Mazariegos MD at 06/03/2025 1401 Dispo: Continue Current Level of Care Garrett Mazariegos MD Cosigned by Steve Veloz MD at 06/14/2025 4:28 PM EDT Associated attestation - Steve Veloz MD - 06/14/2025 4:28 PM EDT I saw and evaluated the patient with the resident/fellow. I discussed the case with the resident/fellow and agree with the findings and plan as documented. * Progress Notes - Barbie Latham RN - 06/03/2025 11:23 AM EDT Case Management Adult Progress Note Alyssia Holly 74 y.o. female CSN: [id number] Admission: 05/31/2025 9:14 AM Primary Problem: Adenocarcinoma of gallbladder (CMS/HCC) Anticipated Discharge Date: 06/08 Has Discharge Plans Changed? No Medicare Second Notice: Housing Circumstances: Not Applicable Housing Circumstances Action Taken: Medically Ready for Discharge: No Additional Comments POC reviewed with primary team. Refer to primary team's progress note for details. Pt not medicallyready to d\c. Epidural in place for pain control. Barbie Latham RN * Consults - Guillermina Kang RD - 06/03/2025 9:11 AM EDT Adult Nutrition Evaluation Note Alyssia Holly 74 y.o. 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 Past medical/ surgical history: Past Medical History[1] Surgical History[2] Social history: Additional comments: Visited pt this morning but she was sleeping. Spoke with RN regarding pt's tolerance of clear liquids. RN noted pt had preferences that weren't being met, communicated these withPatient Dining Associate. Her diet was advanced to fulls right before lunch. Vitals and Basic Assessment: BP: 109/70 Temp: 36.8 ??C (98.2 ??F) Oxygen Therapy: None (Room air) O2 Delivery Method: Nasal cannula Eckerman Coma Scale Score: 15 [place] Scale Score: 20 Most Recent BM Date: 05/31/25 (per patient) GI Symptoms: Nausea, Loss of appetite Edema: Generalized Allergies: NKFA Medications: Current Medications[3] Labs: Labs in last 18 hours CBC WBC 16.61 (H) Hb 11.1 (L) Plt 182 Hct 33.0 (L) ANC ?? INR ??, PTT ??, Anti-Xa ?? BMP Na 140 Cl 107 BUN 7 (L) Glu 100 (H) K 3.3 (L) Co2 21 (L) Cr 0.40 (L) Ca 7.9 (L) iCa ?? Mg 1.7 (L), Phos 2.6 Lactate ?? LFT AST 68 (H) AlkPhos 110 T Prot 4.8 (L) ALK 110 (H) Bili 0.5 Alb ?? D.Bili ?? Anthropometrics: Height: 165.1 cm (5' 5 ) Weight: 69.5 kg (153 lb 3.5 oz) BMI (Calculated): 25.5 Weight Evaluation: Overweight (BMI 25-29.9) [place] Body Weight (kg): 56.8 Percent [place] Body Weight: 123 Wt Readings from Last 10 Encounters: 06/03/25 69.5 kg (153 lb 3.5 oz) 05/25/25 64.5 kg (142 lb 3.2 oz) 05/11/25 69 kg (152 lb 1.9 oz) 04/20/24 75.5 kg (166 lb 8 oz) 04/03/24 76 kg (167 lb 8.8 oz) 04/29/14 74.8 kg (164 lb 15.9 oz) 04/15/14 74.8 kg (164 lb 15.9 oz) Weight down, monitor trends. Estimated Needs: Metabolic Cart Study Results: Current Nutrition Intake: Diet Supplements: None Diet Order: Adult Diet Diet Texture: Full Liquid Percent Meals Eaten (%): establishing Diet Experience and Nutrition History: Diet Education Provided: Will monitor Pertinent home medications: potassium chloride Nutrition Focused Physical Exam: Unable to Complete Exam: Patient unable to participate Physical exam performed on (date): Assessment of Malnutrition: Nutrition Problem: Inadequate energy intake related to post-op status as evidenced by liquid diet. Status of Nutrition Diagnosis: New Nutrition Interventions and Recommendations: - Advance as tolerated to GI soft diet - Gelatein 20 TID (color preference) - Impact AR BID x 5 days Nutrition Monitoring and Goals: - PO >75% of meals - Weight maintenance Acuity Level: [address] [1] Past Medical History: Diagnosis Date Personal history of other diseases of the circulatory system History of hypertension Personal history of urinary calculi Personal history of renal calculi [2] Past Surgical History: Procedure Laterality Date BREAST AUGMENTATION Bilateral 1978 CATARACT EXTRACTION N/A Cataract Surgery from [facility] CHOLECYSTECTOMY N/A Cholecystectomy from [facility] HIP ARTHROPLASTY Bilateral LUMBAR FUSION L4-L5 NASAL SEPTUM SURGERY N/A Nasal Septal Deviation Repair from [facility] OTHER SURGICAL HISTORY N/A Percutaneous Lithotomy from [facility] OTHER SURGICAL HISTORY gastric ulcer perferation RIGHT COLECTOMY TONSILLECTOMY N/A Tonsillectomy from [facility] [3] Current Facility-Administered Medications: albuterol (Proventil) (2.5 MG/3ML) 0.083% nebulizer solution 2.5 mg, 2.5 mg, Nebulization, q6h PRN,Marbin Davis G, VICE PRESIDENT OF ADVERTISING bisacodyl (Dulcolax) suppository 10 mg, 10 mg, Rectal, Daily, Marbin Davis, VICE PRESIDENT OF ADVERTISING dextrose 5 % and lactated Ringer's infusion, 42 mL/hr, Intravenous, Continuous, Garrett Mazariegos MD, Last Rate: 42 mL/hr at 06/03/25 0722, 42 mL/hr at 06/03/25 0722 heparin (porcine) injection 5,000 Units, 5,000 Units, Subcutaneous, q8h [facility], Liza De La Vega MD, 5,000 Units at 06/03/25 0541 HYDROmorphone (PF) 10 mcg/mL + bupivacaine (PF) 1.25 mg/mL in 100 mL (PF) HOGSHEAD WEIGHER, , Epidural, Continuous, New Bag at 06/03/25 1135 AND hydromorphone 10 mcg/mL + bupivacaine 1.25 mg/mL clinician bolus dose, 1-5 mL, Epidural, PRN, Mando Hitchcock MD, 3 mL at 06/01/25 1511 methocarbamol (Robaxin) tablet 1,000 mg, 1,000 mg, Oral, 4x daily, Marbin Davis, TIM metoclopramide (Reglan) injection 10 mg, 10 mg, Intravenous, q8h, Garrett Mazariegos MD, 10 mg at 06/03/25 0541 naloxone (Narcan) 2 mg in sodium chloride 0.9 % 100 mL (0.02 mg/mL) infusion (Urinary Retention or Pruritus), 0.25-1 mcg/kg/hr, Intravenous, Titrated PRN, Liza De La Vega MD naloxone (Narcan) injection 0.08 mg, 0.08 mg, Intravenous, q1 min PRN, Liza De La Vega MD ondansetron ODT (Zofran-ODT) disintegrating tablet 4 mg, 4 mg, Oral, q6h PRN OR ondansetron (Zofran) injection 4 mg, 4 mg, Intravenous, q6h PRN OR ondansetron (Zofran) 4 MG/5ML solution 4 mg,4 mg, Oral, q6h PRN, Liza De La Vega MD [START ON 06/04/2025] pantoprazole (Protonix) EC tablet 40 mg, 40 mg, Oral, Daily, Marbin Davis APRN phosphorus (K Phos Neutral) tablet 1 tablet, 1 tablet, Oral, q8h, Garrett Mazariegos MD, 1 tablet at 06/03/25 0811 * Consults - Julieta Rockwell RN - 06/03/2025 8:37 AM EDT Acute Pain Service Follow-Up Evaluation Alyssia Holly is a 74 y.o. female Follow-Up: Follow-up reason: APS rounds Location: abdomen Pain Rating (0-10): 5 Comfort/ Acceptable Pain Level: 3 Acute Pain Service Comments: Patient is currently receiving the following: Epidural Catheter Medication: received 34 doses of Bupivacaine and Hydromorphone totaling 146.8 mL in 24 hours. Encouraged patient to use HOGSHEAD WEIGHER doses to help manage pain better. Will continue Patient Controlled Analgesia infusion until primary service decides it is appropriateto discontinue. Epidural Site: not examined Follow-Up: Follow-Up: Acute Pain Service will continue to follow and adjust as needed. Visit Type: Routine Current Analgesic Treatments: Inpatient Analgesics Active Medications Medication Name Dose Route Frequency HYDROmorphone (PF) 10 mcg/mL + bupivacaine (PF) 1.25 mg/mL in 100 mL (PF) HOGSHEAD WEIGHER no dose Epidural Continuous hydromorphone 10 mcg/mL + bupivacaine 1.25 mg/mL clinician bolus dose 1-5 mL Epidural PRN for severe pain methocarbamol (Robaxin) injection 1,000 mg 1,000 mg Intravenous q8h naloxone (Narcan) 2 mg in sodium chloride 0.9 % 100 mL (0.02 mg/mL) infusion (Urinary Retention or Pruritus) 0.25-1 mcg/kg/hr Intravenous Titrated PRN for urinary retention, itching Rate: 0.81-3.23 mL/hr naloxone (Narcan) injection 0.08 mg 0.08 mg Intravenous q1 min PRN for respiratory depression, For respiratory rate < 10 Future Medications Medication Name Dose Route Frequency methocarbamol (Robaxin) tablet 1,000 mg 1,000 mg Oral 4x daily Epidural hydromorphone 10mcg bupivacaine 1.25mg 01/21/10 T6-T7 10cm at skin- Ex- lap, partial hepatectomy Blood pressure 105/61, pulse 80, temperature 36.9 ??C (98.5 ??F), temperature source Oral, resp. rate 18, height 1.651 m (5' 5 ), weight 69.5 kg (153 lb 3.5 oz), SpO2 92%. Please Contact Acute Pain Service with any additional questions or concerns via Epic Secure Chat orpage [phone]. * Care Plan - Jessica Ureña RN - 06/02/2025 10:18 PM EDT Problem: Adult Inpatient Plan of Care Goal: Plan of Care Review Outcome: Ongoing, Progressing Flowsheets (Taken 06/02/20252210) Progress: improving Plan of Care Reviewed With: patient Goal: Patient-Specific Goal (Individualized) Outcome: Ongoing, Progressing Flowsheets (Taken 06/02/20251999) Patient/Family-Specific Goals (Include Timeframe): Patient will experience tolerable pain levels with the continous pain pump in use this shift Individualized Care Needs: Medication, education and support Anxieties, Fears or Concerns: pain Goal: Absence of Hospital-Acquired Illness or Injury Outcome: Ongoing, Progressing Intervention: Identify and Manage Fall Risk Flowsheets (Taken 06/02/20251999) Safety Promotion/Fall Prevention: safety round/check completed activity supervised clutter-free environment maintained fall prevention program maintained lighting adjusted nonskid shoes/slippers when out of bed room organization consistent toileting scheduled Intervention: Prevent Skin Injury Flowsheets Taken 06/02/20251999 by Rina Tay Body Position: supine weight shifting Taken 06/02/20251999 by Jessica Ureña RN Skin Protection: transparent dressing maintained protective footwear used Intervention: Prevent and Manage VTE (Venous Thromboembolism) Risk Flowsheets (Taken 06/02/20251999) VTE Prevention/Management: bilateral lower extremity SCDs (sequential compression devices) off previous patient education reinforced medication Intervention: Prevent Infection Flowsheets (Taken 06/02/20252210) Infection Prevention: cohorting utilized environmental surveillance performed equipment surfaces disinfected hand hygiene promoted visitors restricted/screened single patient room provided rest/sleep promoted personal protective equipment utilized Goal: Optimal Comfort and Wellbeing Outcome: Ongoing, Progressing Intervention: Monitor Pain and Promote Comfort Flowsheets (Taken 06/02/20251999) Pain Management Interventions: pain management plan reviewed with patient/caregiver pain pump in use pillow support provided position adjusted quiet environment facilitated rest relaxation techniques promoted Intervention: Provide Person-Centered Care Flowsheets (Taken 06/02/20252210) Trust Relationship/Rapport: care explained choices provided emotional support provided empathic listening provided questions answered reassurance provided questions encouraged thoughts/feelings acknowledged Problem: Adult Inpatient Plan of Care Goal: Patient-Specific Goal (Individualized) Outcome: Ongoing, Progressing Flowsheets (Taken 06/02/20251999) Patient/Family-Specific Goals (Include Timeframe): Patient will experience tolerable pain levels with the continous pain pump in use this shift Individualized Care Needs: Medication, education and support Anxieties, Fears or Concerns: pain * Consults - Connie Echavarria RN - 06/02/2025 8:55 PM EDT Acute Pain Service Follow-Up Evaluation Alyssia Holly is a 74 y.o. female Follow-Up: Follow-up reason: APS rounds Location: Pain Rating (0-10): asleep/resting Comfort/ Acceptable Pain Level: Acute Pain Service Comments: Patient is currently receiving the following: Epidural Catheter Medication: received 42.1 doses of Bupivacaine and Hydromorphone totaling 143.15 mL in 24 hours Will continue Patient Controlled Analgesia infusion until primary service decides it is appropriateto discontinue. Epidural Site: not examined Follow-Up: Follow-Up: Acute Pain Service will continue to follow and adjust as needed. Visit Type: Routine Current Analgesic Treatments: Inpatient Analgesics Active Medications Medication Name Dose Route Frequency HYDROmorphone (PF) 10 mcg/mL + bupivacaine (PF) 1.25 mg/mL in 100 mL (PF) HOGSHEAD WEIGHER no dose Epidural Continuous hydromorphone 10 mcg/mL + bupivacaine 1.25 mg/mL clinician bolus dose 1-5 mL Epidural PRN for severe pain lidocaine (Lidoderm) 5 % patch 1 patch 1 patch Apply externally q24h methocarbamol (Robaxin) injection 1,000 mg 1,000 mg Intravenous q8h naloxone (Narcan) 2 mg in sodium chloride 0.9 % 100 mL (0.02 mg/mL) infusion (Urinary Retention or Pruritus) 0.25-1 mcg/kg/hr Intravenous Titrated PRN for urinary retention, itching Rate: 0.81-3.23 mL/hr naloxone (Narcan) injection 0.08 mg 0.08 mg Intravenous q1 min PRN for respiratory depression, For respiratory rate < 10 Epidural hydromorphone 10mcg bupivacaine 1.25mg 01/21/10 T6-T7 10cm at skin- Ex- lap, partial hepatectomy Blood pressure 105/59, pulse 94, temperature 36.6 ??C (97.9 ??F), resp. rate 17, height 1.651 m (5'5 ), weight 69.7 kg (153 lb 10.6 oz), SpO2 94%. Please Contact Acute Pain Service with any additional questions or concerns via [email or web address]. * Consults - Nasreen Hair RN - 06/02/2025 5:15 PM EDT Acute Pain Service Follow-Up Evaluation Alyssia Holly is a 74 y.o. female Follow-Up: Follow-up reason: APS rounds Location: abdomen Pain Rating (0-10): Better Comfort/ Acceptable Pain Level: 3 Acute Pain Service Comments: Patient is currently receiving the following: Epidural Catheter Medication: received 9 doses of Bupivacaine and Hydromorphone totaling 29.3 mL in4 hours Will continue Patient Controlled Analgesia infusion until primary service decides it is appropriateto discontinue. Follow-Up: Follow-Up: Acute Pain Service will continue to follow and adjust as needed. Visit Type: Routine Current Analgesic Treatments: Inpatient Analgesics Active Medications Medication Name Dose Route Frequency HYDROmorphone (PF) 10 mcg/mL + bupivacaine (PF) 1.25 mg/mL in 100 mL (PF) HOGSHEAD WEIGHER no dose Epidural Continuous hydromorphone 10 mcg/mL + bupivacaine 1.25 mg/mL clinician bolus dose 1-5 mL Epidural PRN for severe pain lidocaine (Lidoderm) 5 % patch 1 patch 1 patch Apply externally q24h methocarbamol (Robaxin) injection 1,000 mg 1,000 mg Intravenous q8h naloxone (Narcan) 2 mg in sodium chloride 0.9 % 100 mL (0.02 mg/mL) infusion (Urinary Retention or Pruritus) 0.25-1 mcg/kg/hr Intravenous Titrated PRN for urinary retention, itching Rate: 0.81-3.23 mL/hr naloxone (Narcan) injection 0.08 mg 0.08 mg Intravenous q1 min PRN for respiratory depression, For respiratory rate < 10 Epidural hydromorphone 10mcg bupivacaine 1.25mg 12/22/09 T6-T7 10cm at skin- Ex- lap, partial hepatectomy Blood pressure 114/74, pulse 94, temperature 37.3 ??C (99.1 ??F), temperature source Oral, resp. rate 17, height 1.651 m (5' 5 ), weight 69.7 kg (153 lb 10.6 oz), SpO2 92%. Please Contact Acute Pain Service with any additional questions or concerns via [employer] orpage [phone]. * Care Plan - Dipti Rain - 06/02/2025 2:02 PM EDT Problem: Adult Inpatient Plan of Care Goal: Plan of Care Review Outcome: Ongoing, Progressing Flowsheets (Taken 06/02/2025 0600 by Namrata Parsons RN) Progress: improving Plan of Care Reviewed With: patient Goal: Patient-Specific Goal (Individualized) Outcome: Ongoing, Progressing Flowsheets (Taken 06/02/2025 0800) Patient/Family-Specific Goals (Include Timeframe): pt will not exceed pain level of 5 this shift Individualized Care Needs: care ongoing Anxieties, Fears or Concerns: pain management Goal: Absence of Hospital-Acquired Illness or Injury Outcome: Ongoing, Progressing Intervention: Identify and Manage Fall Risk Flowsheets (Taken 06/02/2025 140) Safety Promotion/Fall Prevention: activity supervised clutter-free environment maintained nonskid shoes/slippers when out of bed lighting adjusted safety round/check completed Intervention: Prevent Skin Injury Flowsheets (Taken 06/02/2025 140) Body Position: weight shifting Skin Protection: protective footwear used incontinence pads utilized Intervention: Prevent and Manage VTE (Venous Thromboembolism) Risk Flowsheets (Taken 06/02/2025 1401) VTE Prevention/Management: medication education provided Intervention: Prevent Infection Flowsheets (Taken 06/02/2025 140) Infection Prevention: rest/sleep promoted single patient room provided hand hygiene promoted environmental surveillance performed Goal: Optimal Comfort and Wellbeing Outcome: Ongoing, Progressing Intervention: Provide Person-Centered Care Flowsheets (Taken 06/02/2025 140) Trust Relationship/Rapport: choices provided care explained questions encouraged emotional support provided empathic listening provided Problem: Skin Injury Risk Increased Goal: Skin Health and Integrity Outcome: Ongoing, Progressing Intervention: Optimize Skin Protection Flowsheets (Taken 06/02/2025 140) Pressure Reduction Devices: positioning supports utilized Skin Protection: protective footwear used incontinence pads utilized Problem: Functional Deficit Goal: Improved Balance and Postural Control Outcome: Ongoing, Progressing Goal: Optimal Cognitive Function Outcome: Ongoing, Progressing Goal: Optimal Coordination Outcome: Ongoing, Progressing Goal: Improved Muscle Strength Outcome: Ongoing, Progressing Goal: Improved Muscle Tone Outcome: Ongoing, Progressing Goal: Optimal Range of Motion Outcome: Ongoing, Progressing Goal: Compensation for Sensory Deficit Outcome: Ongoing, Progressing Problem: Self-Care Deficit Goal: Improved Ability to Complete Activities of Daily Living Outcome: Ongoing, Progressing * Progress Notes - Pauline Mohamud MD - 06/02/2025 11:44 AM EDT Acute Pain Service Pain management goal: 3/10 Pain scale (0-10): 5/10 Side Effects Nausea/Vomiting: no Pruritus: no Confusion: no Sedation: no Numbness/Tingling: no Postural headache: no Catheter inspected per protocol: yes Additional side effects: no Outcomes Able to take oral medications: started clears this morning. Has ambulated: no Assessment & Plan in the Next 24 hours Assessment: Patient continues to complain of moderate-severe pain that is limiting movement. She states that her back pain is similar to abdominal pain. Plan: Offered to split out to a dual system with low dose HOGSHEAD WEIGHER. Patient wishes to continue with epidural for now. Increased basal to 5 Plan explained/all questions answered/plan in agreement with: Patient Reason for Block: post-op pain management * Consults - Nasreen Hair RN - 06/02/2025 11:44 AM EDT Acute Pain Service Follow-Up Evaluation Alyssia Holly is a 74 y.o. female Follow-Up: Follow-up reason: APS rounds Location: abdomen Pain Rating (0-10): better Comfort/ Acceptable Pain Level: 3 Acute Pain Service Comments: Patient is currently receiving the following: Increased Epidural basal rate 5ml/hr at [address] Mohamud. Will continue Patient Controlled Analgesia infusion until primary service decides it is appropriateto discontinue. Follow-Up: Follow-Up: Acute Pain Service will continue to follow and adjust as needed. Visit Type: Routine Current Analgesic Treatments: Inpatient Analgesics Active Medications Medication Name Dose Route Frequency HYDROmorphone (PF) 10 mcg/mL + bupivacaine (PF) 1.25 mg/mL in 100 mL (PF) HOGSHEAD WEIGHER no dose Epidural Continuous hydromorphone 10 mcg/mL + bupivacaine 1.25 mg/mL clinician bolus dose 1-5 mL Epidural PRN for severe pain lidocaine (Lidoderm) 5 % patch 1 patch 1 patch Apply externally q24h methocarbamol (Robaxin) injection 1,000 mg 1,000 mg Intravenous q8h naloxone (Narcan) 2 mg in sodium chloride 0.9 % 100 mL (0.02 mg/mL) infusion (Urinary Retention or Pruritus) 0.25-1 mcg/kg/hr Intravenous Titrated PRN for urinary retention, itching Rate: 0.81-3.23 mL/hr naloxone (Narcan) injection 0.08 mg 0.08 mg Intravenous q1 min PRN for respiratory depression, For respiratory rate < 10 Epidural hydromorphone 10mcg bupivacaine 1.25mg 01/21/10 T6-T7 10cm at skin- Ex- lap, partial hepatectomy Blood pressure 114/74, pulse 94, temperature 37.3 ??C (99.1 ??F), temperature source Oral, resp. rate 17, height 1.651 m (5' 5 ), weight 69.7 kg (153 lb 10.6 oz), SpO2 92%. Please Contact Acute Pain Service with any additional questions or concerns via [email or web address]. * Progress Notes - Marbin Davis, VICE PRESIDENT OF ADVERTISING - 06/02/2025 11:27 AM EDT Images from the original note were not included. 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 Her recovery was complicated by gastric perforation now s/p laparotomy with repair of pre-pyloric gastric ulcer using omental pedicle patch (04/01/25) at OSH. Presenting to for scheduled operation. 05/31/2025: diagnostic laparoscopy, portal lymph node dissection, segment 4B/5 partial hepatectomy,omental flap [Cavnar] Interval: NAEO, AFHDS on RA. Pain controlled. No gas or bowel movement. No nausea or vomiting. [place] d/c lilly I/O 24Hr 06/02 I: 50 PO 600 IV O: 900 UOP (0.58/kg/hr) Edited by: Marbin Davis APRN at 06/02/2025 1130 Review of Systems: Relevant review of systems was obtained as able and is negative unless stated above in HPI. Objective Objective: Vital signs: Vitals: 06/02/25 0950 BP: Pulse: Resp: 18 Temp: SpO2: Physical Exam: Physical Exam Vitals reviewed. Constitutional: Appearance: Normal appearance. HENT: Head: Normocephalic and atraumatic. Nose: Nose normal. Mouth/Throat: Mouth: Mucous membranes are moist. Eyes: General: No scleral icterus. Extraocular Movements: Extraocular movements intact. Conjunctiva/sclera: Conjunctivae normal. Cardiovascular: Rate and Rhythm: Normal rate. Pulmonary: Effort: Pulmonary effort is normal. No respiratory distress. Abdominal: General: There is no distension. Palpations: Abdomen is soft. Tenderness: There is abdominal tenderness. There is no guarding or rebound. Comments: Midline incision well approximated, closed with reinier. No erythema, edema, and ATTP appreciated Genitourinary: Comments: Lilly in place draining CYU Musculoskeletal: General: Normal range of motion. Cervical back: Normal range of motion. Right lower leg: No edema. Left lower leg: No edema. Left foot: Swelling present. Comments: Swelling on left ankle, reported at baseline per pt Skin: General: Skin is warm and dry. Capillary Refill: Capillary refill takes less than 2 seconds. Coloration: Skin is not jaundiced. Neurological: General: No focal deficit present. Mental Status: She is alert and oriented to person, place, and time. Psychiatric: Mood and Affect: Mood normal. Behavior: Behavior normal. Thought Content: Thought content normal. Judgment: Judgment normal. Intake/Output Summary (Last 24 hours) at 06/02/2025 1142 Last data filed at 06/02/2025 0423 Gross per 24 hour Intake 648.7 ml Output 650 ml Net -1.3 ml Lines/Drains/Tubes: Patient Lines/Drains/Airways Status Active Airway None Output by Drain (mL) 05/31/25 0700 - 05/31/25 1859 05/31/25 1900 - 06/01/25 0659 06/01/25 0700 - 06/01/25 1859 06/01/25 1900 - 06/02/25 0659 06/02/25 0700 - 06/02/25 1142 Requested LDAs do not have output data documented. Labs in last 18 hours: CBC WBC 19.64 (H) Hb 11.5 Plt 211 Hct 34.1 ANC ?? INR ??, PTT ??, Anti-Xa ?? MCV 92 BMP Na 138 Cl 105 BUN 9 Glu 131 (H) K 3.8 Co2 21 (L) Cr 0.49 (L) Ca 8.2 (L) iCa ?? Mg 1.8 (L), Phos 2.0 (L) Lactate ?? LFT AST 176 (H) AlkPhos 102 T Prot 5.3 (L) ALK 169 (H) Bili 0.5 Alb ?? D.Bili ?? Lab Trends: H/H Results from last 7 days Lab Units 06/02/25 02106/01/25 0905/31/25 1704 HEMOGLOBIN g/dL 11.5 12.7 12.4 HEMATOCRIT % 34.1 38.2 37.6 INR Cr Results from last 7 days Lab Units 06/02/25 02106/01/25 0905/31/25 1704 CREATININE mg/dL 0.49* 0.56* 0.44* Lactate Results from last 7 days Lab Units 05/31/25 1704 LACTIC ACID, WHOLE B mmol/L 0.7 Radiographic Interpretation: I have reviewed the imaging above and agree with the radiologist interpretation. Medications reviewed. Vital signs reviewed. Labs reviewed. Assessment/Plan Assessment and Plan: Medical Problems Problem List * (Principal) Adenocarcinoma of gallbladder (CMS/HCC) Overview Signed 06/02/2025 11:40 AM by Marbin Davis APRN 05/31/2025: diagnostic laparoscopy, portal lymph node dissection, segment 4B/5 partial hepatectomy,omental flap [Cavnar] HTN (hypertension) (Chronic) Peptic ulcer disease (Chronic) Post-op pain Overview Signed 06/02/2025 11:41 AM by Marbin Davis VICE PRESIDENT OF ADVERTISING - multimodal pain management - transition PO pain meds as diet advances and prior to discharge Electrolyte abnormality Overview Signed 06/02/2025 11:41 AM by Marbin Davis VICE PRESIDENT OF ADVERTISING - daily/PRN CMP, Mg, Phos - replete as appropriate - goal: K>4, phos>3, mg>2 Leukocytosis Overview Signed 06/02/2025 11:41 AM by Marbin Davis APRN - common post-op finding likely reactive 2/2 surgery - daily/prn CBC - monitor for s/s of active infection Transaminitis Overview Signed 06/02/2025 11:42 AM by Marbin Davis APRN - Common post-op finding - daily/prn CMP - avoid hepatotoxic meds Breast implant rupture Present on Admission: Adenocarcinoma of gallbladder (CMS/HCC) Plan: [ ] f/u labs [ ] TOV - d/c lilly - PMR consult for [facility] recs -needle phobia per nursing -consider triptan if having migraine Diet: CLD, D5LR@84 GI ppx: pantoprazole Bowel Reg: reglan Abx: ppx cefoxitin DVT ppx: subQ heparin Pain: PCEA w/ dilaudid, IV robaxin LDA: PIV left AC, PIV right hand, PCEA, lilly cath PT/OT: Acute rehab Edited by: Marbin Davis APRN at 06/02/2025 1138 Dispo: Continue Current Level of Care Marbin Davis APRN Cosigned by Steve Veloz MD at 06/02/2025 5:59 PM EDT Associated attestation - Steve Veloz MD - 06/02/2025 5:59 PM EDT I attest to being involved in providing substantive part of the medical decision making in patient care. * Progress Notes - Crystal Blankenship - 06/02/2025 10:08 AM EDT Case Management Adult Progress Note Alyssia Holly 74 y.o. female CSN: [id number] Admission: 05/31/2025 9:14 AM Primary Problem: Adenocarcinoma of gallbladder (CMS/HCC) Anticipated Discharge Date: 72 hours Additional Comments: SW spoke with MDs this date re: pt's plan of care. According to MDs, this pt is not medically stable for DC this date and is not anticipated to be stable within 72 hrs. [facility] SW requested Primary Team consult PM&R. No further SW concerns identified at this time. SW will monitor pt's progress and will follow up with DC planning and needs as appropriate. Update: [facility] able to accept pt for Acute if no other accepting facilities, call back for admissions [phone]. Pt unable to go to for acute because of PM&R recs. Pt does not qualify for [facility] at due to max assistance and not ambulating. Crystal Blankenship, SCLEROSCOPE TESTER, OB GYN Social Work Senior Department of Case Management [facility] * Consults - Edilma Butler APRN, ANITRA - 06/02/2025 9:58 AM EDTAssociated Order(s): IP CONSULT TO PHYSICAL MEDICINE REHAB PHYSICAL MEDICINE & REHABILITATION INPATIENT CONSULT NOTE Patient: Alyssia Holly : 1950 PCP: Efrain Angeles MD at [address] / [place] [address] Payor: MEDICARE / Plan: MEDICARE A & B / Product Type: Medicare / Date of Service: 06/02/25 cc: Adenocarcinoma of gallbladder (CMS/HCC) Reason for Consultation: functional evaluation History of Present Illness: Alyssia Holly is a 74 y.o. female w/PMH of colon cancer s/p resection without adjuvant therapy, HTN, kidney stones, and cholecystitis who presented to on 05/31/2025 (LOS: 2d) for scheduled operation. Of note, patient had cholecystectomy (03/25/25) w/ resulting pathology showing pT2 disease. Her recovery was complicated by gastric perforation now s/p patient underwent laparotomy with repair of pre-pyloric gastric ulcer using omental pedicle patch (04/01/25). She presented to 05/31 for scheduled diagnostic laparoscopy, portal lymph node dissection, segment 4B/5 partial hepatectomy, and omental flap. Her hospitalization course has been complicated by post-operative pain and pain medicine is following. PMR was consulted for functional evaluation. On exam patient is seen resting in bed. She rouses easily and voices the IV pain medications make her drowsy. Reports her pain seems controlled at this time but only because she is not moving. Denies any other complaints. Overall exam was limited by pain. PMH: Past Medical History[1] PSH: Surgical History[2] Allergies: Allergies[3] Home Medications: Current Outpatient Medications Medication Instructions albuterol 108 (90 Base) MCG/ACT inhaler INHALE 2 PUFFS BY MOUTH 4 TIMES DAILY NEEDED Aspirin 81 mg, Daily fluticasone-salmeterol (Advair Diskus) 100-50 MCG/ACT diskus inhaler 1 puff, As needed losartan (Cozaar) 50 MG tablet 0.5 tablets, Daily oxybutynin XL (DITROPAN-XL) 15 mg, Daily pantoprazole (PROTONIX) 40 mg, Nightly potassium chloride CR (Klor-Con) 10 MEQ ER tablet 10 mEq rosuvastatin (CRESTOR) 10 mg, 3 times weekly triamterene-hydrochlorothiazide (Maxzide-25) 37.5-25 MG tablet 0.5 tablets, Daily Vibegron (Gemtesa) 75 MG tablet 1 tablet, Daily Active Medications: Continuous: Current Continuous Medications[4]Scheduled: Current Scheduled Medications[5]PRN: Current PRN Medications[6] Family history: reviewed and noncontributory to presenting illness Social history: Marital Status: Children: 5, all live out of state Previous Residence: lives alone in [place], [place] in a one story double wide with 6 steps to enter Anticipated Residence: as above Support: limited, reports no close family Tobacco: denies Alcohol: denies Drugs: denies Travel: denies international travel in the last 6 months 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 Consults: pain medicine, PMR Precautions: falls, infection Procedures: laparoscopy, portal lymph node dissection, segment 4B/5 partial hepatectomy, and omental flap 05/31 OBJECTIVE: Labs: Lab Results Component Value Date WBC 19.64 (H) 06/02/2025 WBC 24.48 (H) 06/01/2025 WBC 22.38 (H) 05/31/2025 HGB 11.5 06/02/2025 HGB 12.7 06/01/2025 HGB 12.4 05/31/2025 HCT 34.1 06/02/2025 MCV 92 06/02/2025 PLT 211 06/02/2025 PLT 256 06/01/2025 PLT 267 05/31/2025 Lab Results Component Value Date NA 138 06/02/2025 NA 139 06/01/2025 NA 142 05/31/2025 K 3.8 06/02/2025 K 4.4 06/01/2025 K 3.4 (L) 05/31/2025 CL 105 06/02/2025 CL 107 06/01/2025 CL 109 (H) 05/31/2025 BUN 9 06/02/2025 BUN 9 06/01/2025 BUN 8 05/31/2025 CREATININE 0.49 (L) 06/02/2025 CREATININE 0.56 (L) 06/01/2025 CREATININE 0.44 (L) 05/31/2025 CALCIUM 8.2 (L) 06/02/2025 CALCIUM 8.7 (L) 06/01/2025 CALCIUM 8.0 (L) 05/31/2025 GLUCOSE 131 (H) 06/02/2025 GLUCOSE 170 (H) 06/01/2025 GLUCOSE 172 (H) 05/31/2025 GLUCOSE 111 (H) 05/11/2025 GLUCOSE 114 (H) 04/03/2024 Lab Results Component Value Date ALT 169 (H) 06/02/2025 ALT 166 (H) 06/01/2025 ALT 93 (H) 05/31/2025 AST 176 (H) 06/02/2025 AST 224 (H) 06/01/2025 AST 183 (H) 05/31/2025 ALKPHOS 102 06/02/2025 ALKPHOS 99 06/01/2025 ALKPHOS 98 05/31/2025 BILITOT 0.5 06/02/2025 BILITOT 0.4 06/01/2025 BILITOT 0.5 05/31/2025 No results found for: HGBA1C Cultures: Results No results found for the last 48 hours. Imaging reports reviewed: No MRI head results found for the past [address] head results found for the past 14 days Current diet (full): Dietary Orders (From admission, onward) Start Ordered 06/01/25907 Adult diet Diet texture: Clear liquid Diet effective now References: IDDSI Diet Texture Guide Question: Diet texture Answer: Clear liquid 06/01/25907 PHYSICAL EXAM Visit Vitals BP 116/72 (BP Location: Right arm, Patient Position: Lying) Pulse 101 Temp 36.4 ??C (97.5 ??F) (Oral) Ht 1.651 m (5' 5 ) Wt 70.7 kg (155 lb 13.8 oz) Comment: PT REFUSED TO STAND FOR WEIGHT SpO2 93% BMI 25.94 kg/m?? Gen: NAD, reclining in bed Eyes: no scleral icterus, pupils round and symmetric Neck: supple, no tracheostomy ENT: nares patent, mucous membranes moist CV: regular rate, 1+ BLE edema Resp: nonlabored breathing, no wheezing, on RA GI: abd soft, tenderness : no lilly Skin: warm, dry Heme/lymph/immune: no bruising Psychiatric: good judgement, good insight MSK: - BUE strength 4/5 - BLE HF 3/5 KF deferred s/t pain DF 3/5 Neurological: awake and alert, participating in conversation, speech fluent I reviewed [facility] notes I reviewed patient labs and vitals Mobility Orders Mobility Protocol: General - Mobility Guidelines Extremity Precautions: No Extremity Precautions Other mobility precautions: No other precautions required ASSESSMENT/PLAN: Alyssia Holly is a 74 y.o. female w/PMH of colon cancer s/p resection without adjuvant therapy,HTN, kidney stones, and cholecystitis who presented to on 05/31/2025 (LOS: 2d) for scheduled operation. - hx cholecystectomy (03/25/25) w/ resulting pathology showing pT2 disease s/p diagnostic laparoscopy, portal lymph node dissection, segment 4B/5 partial hepatectomy, and omental flap 05/31 - post-operative pain requiring epidural - advancing diet as patient tolerates - pain medicine following - surgical oncology following - functional decline - gait impairment - ADL impairment - colon cancer s/p resection - HTN - kidney stones - cholecystitis Recommendations: Dispo: Subacute Patient voices she has no family to help her transition home. When asked is she has friends near, she said yes but was unable to name who. Since she was living along prior, she will need to be independent leaving rehab. At this time patient is dependent with bed mobility and unable to attempt ambulation ISO pain. As she recovers post-operatively her functional status may improve, however at this time she would not be able to transition home independently from shorter stay at acute rehab. PMR will continue to follow her functionally. Current barriers to discharge: - stable off IV pain medications - continue to tolerate advancement of diet Thank you for allowing us to participate in the care of your patient. We will continue to follow. Please page [phone] with any questions, or resident on-call if after hours or on weekends. Edilma Butler APRN, DNP Physical Medicine & Rehabilitation [1] Past Medical History: Diagnosis Date Personal history of other diseases of the circulatory system History of hypertension Personal history of urinary calculi Personal history of renal calculi [2] Past Surgical History: Procedure Laterality Date BREAST AUGMENTATION Bilateral 1977 CATARACT EXTRACTION N/A Cataract Surgery from [facility] CHOLECYSTECTOMY N/A Cholecystectomy from [facility] HIP ARTHROPLASTY Bilateral LUMBAR FUSION L4-L5 NASAL SEPTUM SURGERY N/A Nasal Septal Deviation Repair from [facility] OTHER SURGICAL HISTORY N/A Percutaneous Lithotomy from [facility] OTHER SURGICAL HISTORY gastric ulcer perferation RIGHT COLECTOMY TONSILLECTOMY N/A Tonsillectomy from [facility] [3] Allergies Allergen Reactions Other Swelling Aerosol disinfectant- especially Lysol Nickel Rash [4] dextrose 5 % and lactated Ringer's, 84 mL/hr, Last Rate: 84 mL/hr (06/02/25 0214) HYDROmorphone (PF) 10 mcg/mL + bupivacaine (PF) 1.25 mg/mL in 100 mL (PF) HOGSHEAD WEIGHER, naloxone, 0.25-1 mcg/kg/hr naloxone, 0.08 mg [5] heparin (porcine), 5,000 Units, Subcutaneous, q8h ZACARIAS lidocaine, 1 patch, Apply externally, q24h methocarbamol, 1,000 mg, Intravenous, q8h metoclopramide, 10 mg, Intravenous, q8h pantoprazole, 40 mg, Intravenous, Daily phosphorus, 2 tablet, Oral, q8h [6] HYDROmorphone (PF) 10 mcg/mL + bupivacaine (PF) 1.25 mg/mL in 100 mL (PF) HOGSHEAD WEIGHER, , Epidural, Continuous AND hydromorphone 10 mcg/ml + bupivacaine 1.25 mg/ml, 1-5 mL, Epidural, PRN naloxone, 0.25-1 mcg/kg/hr, Intravenous, Titrated PRN naloxone, 0.08 mg, Intravenous, q1 min PRN ondansetron ODT, 4 mg, Oral, q6h PRN OR ondansetron, 4 mg, Intravenous, q6h PRN OR ondansetron, 4 mg, Oral, q6h PRN * Consults - Nasreen Hair RN - 06/02/2025 9:48 AM EDT Acute Pain Service Follow-Up Evaluation Alyssia Holly is a 74 y.o. female Follow-Up: Follow-up reason: APS rounds Location: abdomen Pain Rating (0-10): sleeping/better Comfort/ Acceptable Pain Level: 3 Acute Pain Service Comments: Patient is currently receiving the following: Epidural Catheter Medication: received 4 doses of Bupivacaine and Hydromorphone totaling 23 mL in 4hours BACK CHECK FINE Will continue Patient Controlled Analgesia infusion until primary service decides it is appropriateto discontinue. Follow-Up: Follow-Up: Acute Pain Service will continue to follow and adjust as needed. Visit Type: Routine Current Analgesic Treatments: Inpatient Analgesics Active Medications Medication Name Dose Route Frequency HYDROmorphone (PF) 10 mcg/mL + bupivacaine (PF) 1.25 mg/mL in 100 mL (PF) HOGSHEAD WEIGHER no dose Epidural Continuous hydromorphone 10 mcg/mL + bupivacaine 1.25 mg/mL clinician bolus dose 1-5 mL Epidural PRN for severe pain lidocaine (Lidoderm) 5 % patch 1 patch 1 patch Apply externally q24h methocarbamol (Robaxin) injection 1,000 mg 1,000 mg Intravenous q8h naloxone (Narcan) 2 mg in sodium chloride 0.9 % 100 mL (0.02 mg/mL) infusion (Urinary Retention or Pruritus) 0.25-1 mcg/kg/hr Intravenous Titrated PRN for urinary retention, itching Rate: 0.81-3.23 mL/hr naloxone (Narcan) injection 0.08 mg 0.08 mg Intravenous q1 min PRN for respiratory depression, For respiratory rate < 10 Epidural hydromorphone 10mcg bupivacaine 1.25mg 12/22/09 T6-T7 10cm at skin- Ex- lap, partial hepatectomy Blood pressure 116/72, pulse 101, temperature 36.4 ??C (97.5 ??F), temperature source Oral, resp. rate 17, height 1.651 m (5' 5 ), weight 70.7 kg (155 lb 13.8 oz), SpO2 93%. Please Contact Acute Pain Service with any additional questions or concerns via [email or web address] [phone]. * Progress Notes - Gabriel Zhang MD - 06/02/2025 8:51 AM EDT Acute Pain Service Pain management goal: 5/10 Pain scale (0-10): 7/10 Side Effects Nausea/Vomiting: no Pruritus: no Confusion: no Sedation: no Numbness/Tingling: no Postural headache: no Catheter inspected per protocol: yes Additional side effects: no Outcomes Assessment & Plan in the Next 24 hours Assessment: still with pain Plan: will bolus cath, and if no improvement may switch to dual system epid local and IVPCA Reason for Block: post-op pain management * Care Plan - Namrata Parsons RN - 06/02/2025 6:00 AM EDT Problem: Adult Inpatient Plan of Care Goal: Plan of Care Review Outcome: Ongoing, Progressing Flowsheets (Taken 06/02/2025599) Progress: improving Plan of Care Reviewed With: patient Goal: Patient-Specific Goal (Individualized) Outcome: Ongoing, Progressing Goal: Absence of Hospital-Acquired Illness or Injury Outcome: Ongoing, Progressing Intervention: Identify and Manage Fall Risk Flowsheets (Taken 06/02/2025599) Safety Promotion/Fall Prevention: room organization consistent fall prevention program maintained activity supervised safety round/check completed nonskid shoes/slippers when out of bed clutter-free environment maintained Intervention: Prevent Skin Injury Flowsheets (Taken 06/02/2025599) Body Position: weight shifting Skin Protection: protective footwear used transparent dressing maintained Intervention: Prevent and Manage VTE (Venous Thromboembolism) Risk Flowsheets (Taken 06/02/2025599) VTE Prevention/Management: medication Intervention: Prevent Infection Flowsheets (Taken 06/02/2025599) Infection Prevention: rest/sleep promoted hand hygiene promoted Goal: Optimal Comfort and Wellbeing Outcome: Ongoing, Progressing Intervention: Monitor Pain and Promote Comfort Flowsheets (Taken 06/02/2025599) Pain Management Interventions: pain management plan reviewed with patient/caregiver medication (see MAR) Intervention: Provide Person-Centered Care Flowsheets (Taken 06/02/2025599) Trust Relationship/Rapport: questions encouraged care explained choices provided questions answered thoughts/feelings acknowledged Problem: Skin Injury Risk Increased Goal: Skin Health and Integrity Outcome: Ongoing, Progressing Intervention: Optimize Skin Protection Flowsheets (Taken 06/02/2025599) Activity Management: dorsiflexion/plantar flexion performed Pressure Reduction Techniques: rest period provided between sit times positioned off wounds pressure points protected Skin Protection: protective footwear used transparent dressing maintained Head of Bed (HOB) Positioning: HOB elevated Intervention: Promote and Optimize Oral Intake Flowsheets (Taken 06/02/2025599) Oral Nutrition Promotion: physical activity promoted Nutrition Interventions: diet liberalized Problem: Functional Deficit Goal: Improved Balance and Postural Control Outcome: Ongoing, Progressing Intervention: Optimize Balance and Safe Activity Flowsheets (Taken 06/02/2025599) Activity Management: dorsiflexion/plantar flexion performed Adaptive Equipment Use: use encouraged used independently Safety Promotion/Fall Prevention: room organization consistent fall prevention program maintained activity supervised safety round/check completed nonskid shoes/slippers when out of bed clutter-free environment maintained Self-Care Promotion: independence encouraged BADL personal objects within reach BADL personal routines maintained adaptive equipment use encouraged Goal: Optimal Cognitive Function Outcome: Ongoing, Progressing Intervention: Optimize Cognitive Function Flowsheets (Taken 06/02/2025599) Sensory Stimulation Regulation: quiet environment promoted Environment Familiarity/Consistency: daily routine followed Self-Care Promotion: independence encouraged BADL personal objects within reach BADL personal routines maintained adaptive equipment use encouraged Goal: Optimal Coordination Outcome: Ongoing, Progressing Intervention: Optimize Motor Coordination and Function Flowsheets (Taken 06/02/2025599) Self-Care Promotion: independence encouraged BADL personal objects within reach BADL personal routines maintained adaptive equipment use encouraged Goal: Improved Muscle Strength Outcome: Ongoing, Progressing Intervention: Optimize Muscle Strength Flowsheets (Taken 06/02/2025599) Activity Management: dorsiflexion/plantar flexion performed Activity Assistance Provided: independent Adaptive Equipment Use: use encouraged used independently Self-Care Promotion: independence encouraged BADL personal objects within reach BADL personal routines maintained adaptive equipment use encouraged Goal: Improved Muscle Tone Outcome: Ongoing, Progressing Intervention: Optimize Muscle Tone Flowsheets (Taken 06/02/2025599) Spasticity Management: positioned with supportive device triggers managed Goal: Optimal Range of Motion Outcome: Ongoing, Progressing Intervention: Maintain Functional Joint Range Position Flowsheets (Taken 06/02/2025599) Range of Motion: active ROM (range of motion) encouraged ROM (range of motion) performed Positioning/Transfer Devices: pillows Goal: Compensation for Sensory Deficit Outcome: Ongoing, Progressing Intervention: Optimize Sensory Function Flowsheets (Taken 06/02/2025599) Pressure Reduction Techniques: rest period provided between sit times positioned off wounds pressure points protected Sensation Impairment Protection: cues provided for safety Skin Protection: protective footwear used transparent dressing maintained Problem: Self-Care Deficit Goal: Improved Ability to Complete Activities of Daily Living Outcome: Ongoing, Progressing Intervention: Promote Activity and Functional Pike Flowsheets (Taken 06/02/2025 0600) Activity Assistance Provided: independent Adaptive Equipment Use: use encouraged used independently Self-Care Promotion: independence encouraged BADL personal objects within reach BADL personal routines maintained adaptive equipment use encouraged * Consults - Julieta Brannon RN - 06/01/2025 9:19 PM EDT Acute Pain Service Follow-Up Evaluation Alyssia Holly is a 74 y.o. female Follow-Up: Follow-up reason: APS rounds Pain Rating (0-10): asleep Acute Pain Service Comments: Patient is currently receiving the following: Epidural Catheter Medication: received 51 doses of Bupivacaine and Hydromorphone totaling 130 mL in24 hours Will continue Patient Controlled Analgesia infusion until primary service decides it is appropriateto discontinue. Epidural Site: not examined Follow-Up: Follow-Up: Acute Pain Service will continue to follow and adjust as needed. Visit Type: Routine Current Analgesic Treatments: Inpatient Analgesics Active Medications Medication Name Dose Route Frequency HYDROmorphone (PF) 10 mcg/mL + bupivacaine (PF) 1.25 mg/mL in 100 mL (PF) HOGSHEAD WEIGHER no dose Epidural Continuous hydromorphone 10 mcg/mL + bupivacaine 1.25 mg/mL clinician bolus dose 1-5 mL Epidural PRN for severe pain lidocaine (Lidoderm) 5 % patch 1 patch 1 patch Apply externally q24h methocarbamol (Robaxin) injection 1,000 mg 1,000 mg Intravenous q8h naloxone (Narcan) 2 mg in sodium chloride 0.9 % 100 mL (0.02 mg/mL) infusion (Urinary Retention or Pruritus) 0.25-1 mcg/kg/hr Intravenous Titrated PRN for urinary retention, itching Rate: 0.81-3.23 mL/hr naloxone (Narcan) injection 0.08 mg 0.08 mg Intravenous q1 min PRN for respiratory depression, For respiratory rate < 10 Epidural hydromorphone 10mcg bupivacaine 1.25mg 12/22/09 T6-T7 10cm at skin- Ex- lap, partial hepatectomy Blood pressure 115/70, pulse 102, temperature 36.7 ??C (98.1 ??F), temperature source Oral, resp. rate 18, height 1.651 m (5' 5 ), weight 64.6 kg (142 lb 6.7 oz), SpO2 93%. Please Contact Acute Pain Service with any additional questions or concerns via [email or web address] [email or web address] [phone]. * Progress Notes - Barbie Latham RN - 06/01/2025 1:02 PM EDT Case Management Adult Initial Progress Note Alyssia Holly 74 y.o. female CSN: [id number] Admission: 05/31/2025 9:14 AM Primary Problem: Adenocarcinoma of gallbladder (CMS/HCC) Exhaust Emissions Automotive Technician reviewed chart and spoke with patient to complete this Initial Case Management Assessment. PCP: Efrain Angeles MD Emergency Contact: Extended Emergency Contact Information Primary Emergency Contact: Lamont Johnston [facility] Mobile Relation: Power of Right Of Way Man Insurance: Primary Visit Coverage Payer Plan Sponsor Code Group Number Group Name MEDICARE MEDICARE A & B Primary Visit Coverage Subscriber Subscriber ID Subscriber Name Subscriber [facility] Subscriber Address [id number] ALYSSIA HOLLY [id number] [place] [address] Patient information: Primary Caregiver: Self Accompanied by/Relationship: none Support System: Friends Daily Living Activities: Functional Status: Independent Living Arrangements: Alone Type of Residence: Private residence, Single Level [address] [id number] Current DME: Equipment Currently Used at Home: walker, rolling, cane, straight Income Information: Income Source: Employed Income/Expense Information: Income meets expenses Current Resources Utilized: None Housing Circumstances-Z Codes: Housing Circumstances (select all that apply): None Applicable Patient Referred to: Anticipated Discharge Date: 06/05 Patient's Discharge Goal: return home Assistance Available at Discharge: none Discharge Transport: friend Follow Up Transport: friend Home Health / Home Infusion / Outpatient Dialysis Services: Living Will/Advance Directive/Power of Right Of Way Man /Guardian: Have you reviewed your Advance Directive and is it valid for this stay?: Yes Advance Directive: Patient has advance directive, copy in chart POA is Lamont Johnston [phone] Additional Comments: Exhaust Emissions Automotive Technician provided introduction of CM and information on CM role. [facility] Barbie Latham RN * Significant Event - Barbie Latham RN - 06/01/2025 1:01 PM EDT 06/01/25 1301 Housing Stability In the last 12 months, was there a time when you were not able to pay the mortgage or rent on time?N In the past 12 months, how many times have you moved where you were living? 0 At any time in the past 12 months, were you homeless or living in a [place] (including now)? N Food Insecurity Within the past 12 months, you worried that your food would run out before you got the money to buymore. Never true Within the past 12 months, the food you bought just didn't last and you didn't have money to get more. Never true Utilities In the past 12 months has the [employer], gas, oil, or water [employer] threatened to shut off services in your home? No Transportation Needs In the past 12 months, has lack of transportation kept you from medical appointments or from getting medications? no In the past 12 months, has lack of transportation kept you from meetings, work, or from getting things needed for daily living? No Intimate Partner Violence Within the last year, have you been afraid of your partner or ex-partner? No Within the last year, have you been humiliated or emotionally abused in other ways by your partner or ex-partner? No Within the last year, have you been kicked, hit, slapped, or otherwise physically hurt by your partner or ex-partner? No Within the last year, have you been raped or forced to have any kind of sexual activity by your partner or ex-partner? No Help Needed Would you like help with any of the following needs? (Select ALL that apply) I don't want help withany of these * Progress Notes - Richie Tovar - 06/01/2025 11:54 AM EDT Physical Therapy Evaluation Patient Name: Alyssia Holly Today's Date: 06/01/2025 PT Discharge Recommendations: Acute rehab Equipment Recommended: Defer to facility History Alyssia Holly is 74 y.o. 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 Past Surgical History Patient has a past surgical history that includes Tonsillectomy (N/A); Cholecystectomy (N/A); Othersurgical history (N/A); Cataract extraction (N/A); Nasal septum surgery (N/A); breast augmentation (Bilateral, 1977); Hip Arthroplasty (Bilateral); Lumbar fusion; Other surgical history; and Right col ectomy. Precautions Medical Precautions: Fall precautions Subjective Patient agreeable to session this date but very hesitant about mobility. Participants in Care Family/Caregiver Present: No Corporate Planning Manager: Not Applicable Presentation Oxygen Therapy: None (Room air) Lines and Tubes: Telemetry Urethral Catheter Non-latex;Single lumen;Temperature probe 16 Fr. (Active) Epidural Catheter 05/31/25 1112 (Active) Peripheral IV 05/31/25 Left Antecubital (Active) Peripheral IV 05/31/25 Right Hand (Active) Pre-Session: Supine, Head of bed elevated, Lines intact Pre-Session Comments: RN agreeable to evaluation and treatment as tolerated this date. Post-Session: Supine, Head of bed elevated, Bed alarm (zone 1, 2, 3), Lines intact, RN notified, Call light in reach Post-Session Comments: Patient positioned for comfort following session with all needs met/within reach. RN notified of session details. Home Living/Set-up Lives With: Alone Home Type: Mobile home Home Adaptive Equipment: Rolling walker, Cane Home Layout: One level, Stairs to enter with rails Number of Stairs: 8 Bathroom: Tub/Shower: Tub/Shower combo Bathroom: Toilet: Standard Bathroom: Accessibility: Accessible via walker Home Living Comments: pt works full-time Prior Level of Function Level of Mobility: Ambulatory- community Mobility Pike: Independent gait without device ADL Performance: Independent Patient/Family Goals Patient would like to be in less pain and return home. Objective Pain Patient initially reported 5-6/10 in belly however increased to 9-10/10 with all attempts at mobility. Patient was positioned for comfort following session and RN notified. Patient additionally offered abdominal binder to assist with pain however declined. Delirium Screening RASS: Alert and calm Confusion Assessment Method-ICU (CAM-ICU/PCAM-ICU) Feature 3: Altered Level of Consciousness: Negative Cognition Overall Cognitive Status: Within Functional Limits Arousal/Alertness: Appropriate responses to stimuli Mood/Behavior: Alert Orientation Level: Oriented X4 Single Step Commands: Consistently Multi-Step Commands: Consistently Method of Communication: Verbal Vision - Basic Assessment Baseline Vision: Glasses distance Patient Visual Report: Patient reports no acute changes in vision. Right Upper Extremity Examination RUE Assessment: (Except for shoulder flexion limited to 90 degrees secondary to abdominal pain.) Manual Muscle Testing - RUE: (Grossly at least 3+/5.) Sensation Light Touch: Right Upper Extremity: Intact Left Upper Extremity Examination LUE ROM Assessment LUE Assessment: (Except for shoulder flexion limited to 90 degrees secondary to abdominal pain.) Manual Muscle Testing - LUE Manual Muscle Testing - LUE: (Grossly at least 3+/5) Sensation Light Touch: Left Upper Extremity: Intact Right Lower Extremity Examination RLE ROM Assessment RLE Assessment: Within Functional Limits Manual Muscle Testing - RLE Manual Muscle Testing - RLE: (Unable to formally assess due to complaint of increased pain with allattempted mobility. Grosssly at least 3/5.) Sensation Light Touch: Right Lower Extremity: Intact Left Lower Extremity Examination LLE Assessment: Within Functional Limits Manual Muscle Testing: (Unable to formally assess due to complaint of increased pain with all attempted mobility. Grosssly at least 3/5.) Sensation Light Touch: Left Lower Extremity: Mild impairment (Patient reports numbness/tingling at baseline.) Therapeutic Activity (31 minutes) Patient participated in the following PT interventions targeting functional strength and endurance in order to promote increased independence with functional mobility, in preparation for progression of edge of bed mobility, and in preparation for progression of out of bed mobility. Additional time required for line management, room set-up for safe mobility and positioning at end of session to achieve optimal comfort. Patient's vital signs monitored for signs of intolerance to activity throughout session. Important to note that increased time required for all below listed functional tasks secondary to increased need for education regarding pain and overall mobility. \ Bed Mobility Bed Mobility Interventions: Patient given maximal verbal cues for cross-body reach with left UE forleverage on bed rail and for lateral scooting of BLE toward edge of bed. Physical assist required at Bilateral LE and trunk to attempt completion functional task however patient screamed out with increased pain and unable to complete. Once in sitting, patient requiring dependent assist for lateral weight-shift and scoot to edge of bed. Patient was offered abdominal binder however declined at thistime. Bed Mobility Exam: Rolling/Turning Level of Pike: (Attempted task however unable to complete secondary to complaint of significant increase in pain from patient.) Bed Mobility Exam: Scooting/Bridging Level of Pike: Dependent (Scooting in sitting to EOB and scooting in supine to HOB.) Physical/Nonphysical Assist: Set-up required, Verbal Cues, Nonverbal cues (demo/gestures), Additional assist utilized for safety Assistive Device: Other (Drawsheet) Bed Mobility Exam: Supine to Sit Level of Pike: Dependent Physical/Nonphysical Assist: Set-up required, Verbal Cues, Nonverbal cues (demo/gestures), Additional assist utilized for safety, HOB elevated Assistive Device: Other (Drawsheet) Bed Mobility Exam: Sit to Supine Level of Pike: Maximum assist (25% patient's effort) Physical/Nonphysical Assist: Set-up required, Verbal Cues, Nonverbal cues (demo/gestures), HOB elevated, Additional assist utilized for safety Assistive Device: Other (Drawsheet) Transfers Transfer Exam: Sit to stand Level of Pike: Moderate assist (50% patient's effort) (Achieved 75% of full stand.) Physical/Nonphysical Assist: Set-up required, Nonverbal cues (demo/gestures), Verbal Cues Transfer Exam: Stand to Sit Level of Pike: Minimum assist (75% patient's effort) Physical/Nonphysical Assist: Set-up required, Verbal Cues, Nonverbal cues (demo/gestures) Assistive Device: Hand held assist Patient required maximal encouragement to participate in sit to stand transition in order to facilitate changing soiled sheets. Patient only able to maintain standing for ~10 seconds total and did not achieve full upright standing position. Ambulation Ambulation Comments: Unable to progress mobility further this date secondary to significant increase in pain. Balance Postural Appearance Posture: Stooped posture, Forward head, Rounded shoulders Static Sitting Balance Static Sitting-Balance Support: Right upper extremity support, Left upper extremity support, Feet supported Static Sitting-Level of Assistance: Contact guard (Initially max however progressing to CGA.) Dynamic Sitting Balance Dynamic Sitting-Balance Support: Right upper extremity support, Left upper extremity support, Feet supported Dynamic Sitting-Balance: Lateral weight shifts, Anterior/Posterior weight shifts Level of Assistance: Contact guard Static Standing Balance Static Standing-Balance Support: Right upper extremity support, Left upper extremity support (HUMAN RESOURCES TEMP) Static Standing-Level of Assistance: Minimum assistance Standardized Assessments Standardized Assessments Standardized Assessments: [facility] 6-Clicks Mobility Assessment [facility] 6-Clicks Mobility Assessment Difficulty patient has turning over in bed (including adjusting bedclothes, sheets, and blankets)?:Unable Difficulty patient has sitting down on and standing up from a chair with arms (wheelchair, bedside commode, etc.)?: A little Difficulty patient has moving from lying on back to sitting on the side of the bed?: Unable How much help does the patient need moving to and from a bed to a chair (including a wheelchair)?: Unable How much help does the patient need to walk in hospital room?: Unable How much help does the patient need climbing 3-5 steps with a railing?: Unable [facility] 6-Clicks Mobility Assessment Total : 8 Assessment Patient was able to participate in session this date however was extremely limited in her functional mobility secondary to pain. 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 Patient is not safe to return home at this time as she is now requiring increased levelsof physical assistance and time to attempt all functional tasks. Patient would continue to benefit from skilled physical therapy services while admitted inpatient to optimize mobility and potential for rehab. Patient is appropriate for acute rehab at discharge once medically appropriate for further strengthening, balance training, and endurance training in order to prevent falls, reduce risk of hospital readmission and to facilitate patient's return to prior level of function. Patient additionally demonstrates medical need for physician assessment at least 3x weekly and will tolerate 3 hours of daily therapy once medically optimized. Patient additionally has the following barriers to returning home at this time: Patient is currently a high fall risk during transfers and mobility during basic ADL activities. Patient is unable to perform daily activities independently following surgery and does not have access to a 24-hour/daily caregiver. Patient would be at a heightened fall risk when attempting to transfer into vehicles for travel to medical appointments. Patient's mobility deficits limit access to safe exit routines within the home in the setting of emergencies including fire/storm damage/home safety scenarios as she has 8 steps to enter/exit home and is unable to perform stairs at this time independently. Impairments: Decreased endurance, ventilation, and/or gas exchange, Impaired gait dynamics/performance, Impaired balance, Impaired functional mobility/transfers, Impaired postural/trunk control, Pain, Decreased strength Activity Limitations: Inability to sit independently, Inability to ambulate community distances, Inability to complete ADLs independently, Inability to ambulate household distances, Inability to ambulate independently, Inability to transfer independently Participation Restrictions: Self-care, Home management, Community leisure, Work Activity Tolerance: Tolerates 30 min activity with multiple rests Evaluation/Treatment Tolerance: Patient limited by pain Diagnosis: Impaired functional mobility. Rehab Potential: Good, to achieve stated therapy goals Barriers to Discharge: Comorbidities, Home design Eval Complexity History Profile: 1 - 2 personal factors and/or comorbidities Clinical Presentation: Evolving clinical presentation with changing characteristics Clinical Decision Making: Moderate complexity PT Recommendations Discharge Destination: Acute rehab Discharge Equipment: Defer to facility Plan Planned PT Interventions Balance training, Bed mobility training, Gait training, Transfer training, Postural re-education, Neuromuscular re-education, Strengthening, Functional Mobility PT Frequency 2 - 5 times per week PT Duration 2 weeks Goals PT GOAL DETAILS Time Frame PT Goal 1: Patient will transition from supine to sitting with CGA. 2 weeks PT Goal 2: Patient will transfer from sitting to standing with SBA using least restrictive assistive device. 2 weeks PT Goal 3: Patient will ambulate x150 feet with CGA using least restrictive assistive device. 2 weeks PT Goal 4: Patient will naivgate x8 stairs with CGA using least restrictive assistive device. 2 weeks Written by Richie Tovar on 06/01/25 at 3:34 PM. * Progress Notes - Annabel Pena - 06/01/2025 11:53 AM EDT Occupational Therapy Evaluation Patient Name: Alyssia Holly Today's Date: 06/01/2025 OT Discharge Recommendations: Acute rehab Equipment Recommended: Defer to facility History Alyssia Holly is 74 y.o. 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 Past Surgical History Patient has a past surgical history that includes Tonsillectomy (N/A); Cholecystectomy (N/A); Othersurgical history (N/A); Cataract extraction (N/A); Nasal septum surgery (N/A); breast augmentation (Bilateral, 1977); Hip Arthroplasty (Bilateral); Lumbar fusion; Other surgical history; and Right col ectomy. Precautions Medical Precautions: Fall precautions, Post-Surgical precautions Post-Surgical Precautions: Abdominal precautions Subjective Lay me back down please. Participants in Care Family/Caregiver Present: No Corporate Planning Manager: Not Applicable Presentation Oxygen Therapy: None (Room air) Lines and Tubes: Urethral Catheter Non-latex;Single lumen;Temperature probe 16 Fr. (Active) Epidural Catheter 05/31/25 1112 (Active) Peripheral IV 05/31/25 Left Antecubital (Active) Peripheral IV 05/31/25 Right Hand (Active) Telemetry Pre-Session: Supine, Head of bed elevated, Lines intact Pre-Session Comments: RN agreeable to evaluation and treatment as tolerated this date. Post-Session: Supine, Head of bed elevated, Bed alarm (zone 1, 2, 3), Lines intact, RN notified, Call light in reach Post-Session Comments: Patient positioned for comfort following session with all needs met/within reach. RN notified of session details. 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), pt recently offwork the last few months due to previous abdominal surgeries, while at home after her initial abdominal surgeries pt independent with ADL mobility/basic ADLs requiring PRN assist from family for heavy lifting and other IADLs Prior Level of Function Receives Help From: (family PRN for IADLs since initial abdominal surgery a few months ago) Level of Mobility: Ambulatory- community Mobility Pike: Independent gait without device History of Falls: No ADL Performance: Independent Patient/Family Goals Statement return home Objective Pain Pt reported 10/10 back and abdominal pain, especially during bed mobility, notified nurse, positioned pt for comfort. Delirium Screening RASS: Alert and calm Confusion Assessment Method-ICU (CAM-ICU/PCAM-ICU) Feature 3: Altered Level of Consciousness: Negative Cognition Overall Cognitive Status: Within Functional Limits Arousal/Alertness: Appropriate responses to stimuli Mood/Behavior: Alert Orientation Level: Oriented X4 Single Step Commands: Consistently Multi-Step Commands: Consistently Method of Communication: Verbal Vision - Basic Assessment Baseline Vision: Glasses distance Patient Visual Report: Patient reports no acute changes in vision. Current Vision: Intact Right Upper Extremity Examination RUE ROM Assessment RUE Assessment: (Except for shoulder flexion limited to 90 degrees secondary to abdominal pain.) Manual Muscle Testing - RUE: (Grossly at least 3+/5.) Sensation Light Touch: Right Upper Extremity: Intact Left Upper Extremity Examination LUE ROM Assessment LUE Assessment: (Except for shoulder flexion limited to 90 degrees secondary to abdominal pain.) Manual Muscle Testing - LUE: (Grossly at least 3+/5) Sensation Light Touch: Left Upper Extremity: Intact Right Lower Extremity Examination RLE ROM Assessment RLE Assessment: Within Functional Limits Manual Muscle Testing - RLE: (Unable to formally assess due to complaint of increased pain with allattempted mobility. Grosssly at least 3/5.) Sensation Light Touch: Right Lower Extremity: Intact Left Lower Extremity Examination LLE ROM Assessment LLE Assessment: Within Functional Limits Manual Muscle Testing: (Unable to formally assess due to complaint of increased pain with all attempted mobility. Grosssly at least 3/5.) Sensation Light Touch: Left Lower Extremity: Mild impairment (Patient reports numbness/tingling at baseline.) Bed Mobility Bed Mobility Exam: Rolling/Turning Level of Pike: (Attempted task however unable to complete secondary to complaint of significant increase in pain from patient.) Bed Mobility Exam: Scooting/Bridging Level of Pike: Dependent (Scooting in sitting to EOB and scooting in supine to HOB.) Physical/Nonphysical Assist: Set-up required, Verbal Cues, Nonverbal cues (demo/gestures), Additional assist utilized for safety Bed Mobility Exam: Supine to Sit Level of Pike: Dependent Physical/Nonphysical Assist: Set-up required, Verbal Cues, Nonverbal cues (demo/gestures), Additional assist utilized for safety, HOB elevated Bed Mobility Exam: Sit to Supine Level of Pike: Maximum assist (25% patient's effort) Physical/Nonphysical Assist: Set-up required, Verbal Cues, Nonverbal cues (demo/gestures), HOB elevated, Additional assist utilized for safety Transfers Transfer Exam: Sit to stand Level of Pike: Moderate assist (50% patient's effort) (Achieved 75% of full stand.) Physical/Nonphysical Assist: Set-up required, Nonverbal cues (demo/gestures), Verbal Cues Transfer Exam: Stand to Sit Level of Pike: Minimum assist (75% patient's effort) Physical/Nonphysical Assist: Set-up required, Verbal Cues, Nonverbal cues (demo/gestures) Assistive Device: Hand held assist Functional Mobility Distance : unable to progress functional mobility past EOB this date secondary to pt complaining ofsignificant pain in abdominal incision site Balance Postural Appearance Posture: Stooped posture, Forward head, Rounded shoulders Static Sitting Balance Static Sitting-Balance Support: Right upper extremity support, Left upper extremity support, Feet supported Static Sitting-Level of Assistance: Contact guard (Initially max however progressing to CGA.) Dynamic Sitting Balance Dynamic Sitting-Balance Support: Right upper extremity support, Left upper extremity support, Feet supported Dynamic Sitting-Balance: Lateral weight shifts, Anterior/Posterior weight shifts Level of Assistance: Contact guard Static Standing Balance Static Standing-Balance Support: Right upper extremity support, Left upper extremity support (HUMAN RESOURCES TEMP) Static Standing-Level of Assistance: Minimum assistance Self-Care Interventions Self Care/Home Management (ADLs) Time Entry: 30 Pt benefited from skilled occupational therapy interventions including: Monitoring of vitals to ensure activity tolerance (VSS) MOD-MAX verbal, visual, and tactile cues (plus encouragement) to facilitate improved body mechanicsand safety during functional tasks Provision of increased time frames to support optimal level of pt participation Task/activity modification with grading as needed to achieve safety while also providing appropriate functional challenge Skilled organization and management of medical lines/tubes to reduce fall risk with mobility aspects of ADLs Environmental set-up to ensure safety and accessibility to all needed areas of treatment space Educated pt on abdominal precautions, log rolling, activity pacing, pursed lip breathing, importance of getting out of bed and participating in ADLs, process of acute care therapy/beyond, pt receptive with increased reps/cues/time Grooming Grooming Level of Assistance: Setup, Modified independent-SBA, CGA for balance Grooming Where Assessed: EOB Grooming Interventions: Pt unable to complete grooming routine at baseline level of standing at sink due to significant abdominal/back pain, imbalance, fatigue, deconditioning. Therapist modified task to supported sitting at EOB with min assist-CGA for balance + setup-mod (SBA at times) I to support highest level of independence with grooming tasks (washing face, lightly combing through hair) within current level of activity tolerance, supporting increased volitional effort and locus of control. Lower Extremity Dressing Sock Level of Assistance: Dependent LE Dressing Where Assessed: Bed level LE Dressing Interventions: Educated pt on figure four dressing technique to adhere to abdominal precautions, however pt unableto tolerate figure four dressing today due to significant abdominal pain therefore provided total assist to don pt's socks at bed level. Toileting Toileting Level of Assistance: Dependent, Maximum verbal cues Where Assessed: Other (Comment) (simulated during transition to and from EOB) Toileting Interventions: In prep for toileting tasks, pt practiced transitioning to and from EOB with max-total assist x2 using bed railing support and max cues for sequencing + splinting pillow for abdominal pain relief. Ptstood from EOB (about 30% upright) with mod assist x2 using HUMAN RESOURCES TEMP bilaterally. Pt unable to tolerate standing upright or taking side sides due to abdominal pain. Pt requested to lay back down almost immediately despite encouragement to transfer to the chair. Standardized Assessments [facility] 6-Click Daily Activities Help from Other: Don/Doff Regular Lower Body Clothings: Total Help From Other: Bathing: A lot Help From Other: Toileting: Total Help From Other: Don/Doff Upper Body Clothings: A lot Help From Other: Grooming: Little Help From Other: Eating Meals: [facility] 6 Click - Daily Activities Score: 12 Assessment On this date, OT eval performed but limited due to pt complaining of significant abdominal pain. Ptengaged in ADL preparatory routines (functional bed mobility, functional transfers, toileting prep simulation, grooming, dressing) with total assist-SBA, increased time, mod-max cues, and rest breaks. Pt remains limited by symptoms consistent with pain, deconditioning, anxiety, poor posture, weaknes s, imbalance, decreased activity endurance, fatigue, decreased functional reach. This negatively impacts safety and independence with self-care execution/IADLs. With this in mind, OT will continue tofollow while hospitalized but pt is currently most appropriate for Acute Rehab upon discharge. While pt remains hospitalized, OT will provide skilled therapy services for the purpose of improving functional status, decreasing caregiver level of burden, and increasing quality of life. OT Findings: Impaired ADL performance, Impaired IADL performance, Decreased upper extremity strength, Impaired judgment during ADL, Decreased endurance/ventilation/gas exchange, Impaired sensation/sensory processing, Impaired functional mobility, Impaired postural/trunk control, Impaired balance Evaluation/Treatment Tolerance: Patient limited by fatigue, Patient limited by pain Rehab Potential: Good, to achieve stated therapy goals Demonstrates Need for Referral to Another Service: Social work Eval Complexity Occupational Profile: Expanded review of medical/therapy records and additional review of physical,cognitive, or psychosocial history Performance Deficits: Instrumental activities of daily living (IADLs), Activities of daily living (ADLs), Leisure, Social participation, Body functions, Body structures, Motor skills, Process skills,Social interaction skills, Habits, Routines, Roles Clinical Decision Making: Moderate Overall Eval complexity: Moderate OT Recommendations Discharge Destination: Acute rehab Discharge Equipment: Defer to facility Demonstrates Need for Referral to Another Service: Social work Plan Planned OT Interventions ADL retraining, IADL retraining, Balance training, Bed mobility Training, ROM, Stretching, Transfertraining, Functional mobility, Strengthening, Cognitive retraining, Caregiver education OT Frequency 2 - 5 times per week OT Duration 2 weeks Goals OT GOAL DETAILS Time Frame OT Goal 1: Pt will perform functional toilet transfer including entering/exiting the bathroom + pericare + LB dressing with min assist using DME as needed. 2 weeks OT Goal 2: Pt will perform three consecutive grooming activities standing at the sink with min assist using DME as needed. 2 weeks OT Goal 3: Pt will perform three consecutive LB dressing activities in sitting/standing with min assist using DME/AE as needed. 2 weeks OT Goal 4: Pt will perform UB/LB sponge bathing activity in sitting/standing with min assist using DME/AE as needed. 2 weeks OT Goal 5: Pt will functionally ambulate household distances with min assist using DME as needed inorder to participate in ADLs/IADLs. 2 weeks Written by Annabel Pena on 06/01/25 at 5:44 PM. * Care Plan - Bryanna Marks RN - 06/01/2025 10:02 AM EDT Problem: Adult Inpatient Plan of Care Goal: Plan of Care Review Outcome: Ongoing, Progressing Flowsheets (Taken 06/01/2025 1000) Progress: no change Outcome Evaluation: patient will rate pain 4/10 this shift Plan of Care Reviewed With: patient Goal: Patient-Specific Goal (Individualized) Outcome: Ongoing, Progressing Flowsheets (Taken 06/01/2025 0900) Patient/Family-Specific Goals (Include Timeframe): patient will rate pain 4/10 this shift Individualized Care Needs: pain Anxieties, Fears or Concerns: pain Goal: Absence of Hospital-Acquired Illness or Injury Outcome: Ongoing, Progressing Intervention: Identify and Manage Fall Risk Flowsheets (Taken 06/01/2025 1000) Safety Promotion/Fall Prevention: activity supervised Intervention: Prevent Skin Injury Flowsheets (Taken 06/01/2025 1000) Body Position: weight shifting Intervention: Prevent and Manage VTE (Venous Thromboembolism) Risk Flowsheets (Taken 06/01/2025 1000) VTE Prevention/Management: education provided medication Intervention: Prevent Infection Flowsheets (Taken 06/01/2025999) Infection Prevention: rest/sleep promoted Goal: Optimal Comfort and Wellbeing Outcome: Ongoing, Progressing Intervention: Monitor Pain and Promote Comfort Flowsheets (Taken 06/01/2025999) Pain Management Interventions: medication (see MAR) Intervention: Provide Person-Centered Care Flowsheets (Taken 06/01/2025999) Trust Relationship/Rapport: care explained thoughts/feelings acknowledged Problem: Skin Injury Risk Increased Goal: Skin Health and Integrity Outcome: Ongoing, Progressing Intervention: Optimize Skin Protection Flowsheets (Taken 06/01/2025999) Activity Management: activity adjusted per tolerance Head of Bed (HOB) Positioning: HOB at 30 degrees Intervention: Promote and Optimize Oral Intake Flowsheets (Taken 06/01/2025999) Oral Nutrition Promotion: rest periods promoted Nutrition Interventions: diet advanced * Consults - Yolette Noyola RN - 06/01/2025 8:39 AM EDT Acute Pain Service Follow-Up Evaluation Alyssia Holly is a 74 y.o. female Follow-Up: Follow-up reason: APS rounds Location: abdomen and back Pain Rating (0-10): 6 Comfort/ Acceptable Pain Level: 3 Acute Pain Service Comments: Patient is currently receiving the following: Epidural Catheter Medication: received 31 doses of Bupivacaine and Hydromorphone totaling 15 mL in 69.35 hours Will continue Patient Controlled Analgesia infusion until primary service decides it is appropriateto discontinue. Epidural Site: not examined - patient in significant pain - unable to turn at this time. Increased basal rate to 4 ml/hr, educated patient on using splint pillow when coughing, started lowair loss pump on acute care bed. Follow-Up: Follow-Up: Acute Pain Service will continue to follow and adjust as needed. Visit Type: Routine Current Analgesic Treatments: Inpatient Analgesics Active Medications Medication Name Dose Route Frequency HYDROmorphone (PF) 10 mcg/mL + bupivacaine (PF) 1.25 mg/mL in 100 mL (PF) HOGSHEAD WEIGHER no dose Epidural Continuous hydromorphone 10 mcg/mL + bupivacaine 1.25 mg/mL clinician bolus dose 1-5 mL Epidural PRN for severe pain lidocaine (Lidoderm) 5 % patch 1 patch 1 patch Apply externally q24h methocarbamol (Robaxin) injection 1,000 mg 1,000 mg Intravenous q8h naloxone (Narcan) 2 mg in sodium chloride 0.9 % 100 mL (0.02 mg/mL) infusion (Urinary Retention or Pruritus) 0.25-1 mcg/kg/hr Intravenous Titrated PRN for urinary retention, itching Rate: 0.81-3.23 mL/hr naloxone (Narcan) injection 0.08 mg 0.08 mg Intravenous q1 min PRN for respiratory depression, For respiratory rate < 10 Future Medications Medication Name Dose Route Frequency Epidural hydromorphone 10mcg bupivacaine 1.25mg 12/22/09 T6-T7 10cm at skin- Ex- lap, partial hepatectomy Blood pressure 122/74, pulse 94, temperature 36.6 ??C (97.9 ??F), temperature source Oral, resp. rate 15, height 1.651 m (5' 5 ), weight 64.5 kg (142 lb 3.2 oz), SpO2 94%. Please Contact Acute Pain Service with any additional questions or concerns via [email or web address] [email or web address] [phone]. * Progress Notes - Tori Knox MD - 06/01/2025 7:44 AM EDT Images from the original note were not included. 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 Her recovery was complicated by gastric perforation now s/p laparotomy with repair of pre-pyloric gastric ulcerusing omental pedicle patch (04/01/25) at OSH. Presenting to for scheduled operation. 05/31/2025: diagnostic laparoscopy, portal lymph node dissection, segment 4B/5 partial hepatectomy,omental flap [Cavnar] Interval: NAEO, VSS, AF. Pt resting in bed in no acute distress. Pt feels her pain is worse than with prior surgeries, states she is pressing her HOGSHEAD WEIGHER 'a lot'. No gas or bowel movement. No nausea or vomiting. I/O 24Hr 06/01 I: 1.1L IV O: 1.3L UOP Edited by: Tori Knox MD at 06/01/2025 0751 Review of Systems: Relevant review of systems was obtained as able and is negative unless stated above in HPI. Objective Objective: Vital signs: Vitals: 06/01/25 0759 BP: 122/74 Pulse: 94 Resp: 15 Temp: 36.6 ??C (97.9 ??F) SpO2: 94% Physical Exam: Physical Exam Vitals reviewed. Constitutional: Appearance: Normal appearance. HENT: Nose: Nose normal. Mouth/Throat: Mouth: Mucous membranes are moist. Eyes: Extraocular Movements: Extraocular movements intact. Conjunctiva/sclera: Conjunctivae normal. Cardiovascular: Rate and Rhythm: Normal rate. Pulmonary: Effort: Pulmonary effort is normal. No respiratory distress. Abdominal: Palpations: Abdomen is soft. Tenderness: There is abdominal tenderness. Comments: Midline incision covered Genitourinary: Comments: Lilly in place draining CYU Musculoskeletal: Cervical back: Normal range of motion. Right lower leg: No edema. Left lower leg: No edema. Skin: General: Skin is warm. Capillary Refill: Capillary refill takes less than 2 seconds. Neurological: General: No focal deficit present. Mental Status: She is alert and oriented to person, place, and time. Psychiatric: Mood and Affect: Mood normal. Behavior: Behavior normal. Intake/Output Summary (Last 24 hours) at 06/01/2025 0912 Last data filed at 06/01/2025 0759 Gross per 24 hour Intake 1100 ml Output 1600 ml Net -500 ml Lines/Drains/Tubes: Patient Lines/Drains/Airways Status Active Airway None Output by Drain (mL) 05/30/25 07 - 05/30/25 18505/30/25 190 - 05/31/25 0659 05/31/25 07 - 05/31/25 1859 05/31/25 1900 - 06/01/25 0659 06/01/25 07 - 06/01/25 0912 Requested LDAs do not have output data documented. Labs in last 18 hours: CBC WBC 22.38 (H) Hb 12.4 Plt 267 Hct 37.6 ANC 19.82 (H) INR ??, PTT ??, Anti-Xa ?? MCV 92 BMP Na 142 Cl 109 (H) BUN 8 Glu 172 (H) K 3.4 (L) Co2 20 (L) Cr 0.44 (L) Ca 8.0 (L) iCa 4.6 Mg 1.4 (L), Phos 3.2 Lactate 0.7 LFT AST 183 (H) AlkPhos 98 T Prot 5.6 (L) ALK 93 (H) Bili 0.5 Alb ?? D.Bili ?? Lab Trends: H/H Results from last 7 days Lab Units 05/31/25 1704 HEMOGLOBIN g/dL 12.4 HEMATOCRIT % 37.6 INR Cr Results from last 7 days Lab Units 05/31/25 1704 CREATININE mg/dL 0.44* Lactate Results from last 7 days Lab Units 05/31/25 1704 LACTIC ACID, WHOLE B mmol/L 0.7 Radiographic Interpretation: No imagining today. Medications reviewed. Vital signs reviewed. Labs reviewed. Assessment/Plan Assessment and Plan: Medical Problems and Relevant Plans Hospital Problems POA * (Principal) Adenocarcinoma of gallbladder (CMS/HCC) Unknown Non-Hospital Problems HTN (hypertension) (Chronic) Peptic ulcer disease (Chronic) Breast implant rupture Plan: -advanced to CLD Diet: CLD GI ppx: pantoprazole Bowel Reg: reglan Abx: ppx cefoxitin DVT ppx: subQ heparin Pain: PCEA w/ dilaudid, IV robaxin LDA: PIV left AC, PIV right hand, PCEA, lilly cath PT/OT: consulted Edited by: Tori Knox MD at 06/01/2025 0908 Dispo: Continue Current Level of Care Tori Knox MD Cosigned by Steve Veloz MD at 06/01/2025 6:19 PM EDT Associated attestation - Steve Veloz MD - 06/01/2025 6:19 PM EDT I saw and evaluated the patient with the resident/fellow. I discussed the case with the resident/fellow and agree with the findings and plan as documented. * Consults - Connie Echavarria RN - 06/01/2025 5:57 AM EDT Acute Pain Service Follow-Up Evaluation Alyssia Holly is a 74 y.o. female Follow-Up: Follow-up reason: APS rounds Location: abdomen and back Pain Rating (0-10): 5, increases with movement Comfort/ Acceptable Pain Level: 4 Acute Pain Service Comments: Patient is currently receiving the following: Epidural Catheter Medication: received 23 doses of Bupivacaine and Hydromorphone totaling 52.7 mL in 12.5 hours Will continue Patient Controlled Analgesia infusion until primary service decides it is appropriateto discontinue. Epidural Site: not examined Follow-Up: Follow-Up: Acute Pain Service will continue to follow and adjust as needed. Visit Type: Routine Current Analgesic Treatments: Inpatient Analgesics Active Medications Medication Name Dose Route Frequency HYDROmorphone (PF) 10 mcg/mL + bupivacaine (PF) 1.25 mg/mL in 100 mL (PF) HOGSHEAD WEIGHER no dose Epidural Continuous hydromorphone 10 mcg/mL + bupivacaine 1.25 mg/mL clinician bolus dose 1-5 mL Epidural PRN for severe pain methocarbamol (Robaxin) injection 1,000 mg 1,000 mg Intravenous q8h naloxone (Narcan) 2 mg in sodium chloride 0.9 % 100 mL (0.02 mg/mL) infusion (Urinary Retention or Pruritus) 0.25-1 mcg/kg/hr Intravenous Titrated PRN for urinary retention, itching Rate: 0.81-3.23 mL/hr naloxone (Narcan) injection 0.08 mg 0.08 mg Intravenous q1 min PRN for respiratory depression, For respiratory rate < 10 Epidural hydromorphone 10mcg bupivacaine 1.25mg 10/24/09 T6-T7 10cm at skin- Ex- lap, partial hepatectomy Blood pressure 129/76, pulse 102, temperature 37.2 ??C (98.9 ??F), temperature source Oral, resp. rate 20, height 1.651 m (5' 5 ), weight 64.5 kg (142 lb 3.2 oz), SpO2 94%. Please Contact Acute Pain Service with any additional questions or concerns via [email or web address] [email or web address] [phone]. * Care Plan - Yumiko Cui RN - 06/01/2025 2:09 AM EDT Problem: Adult Inpatient Plan of Care Goal: Plan of Care Review Outcome: Ongoing, Progressing Flowsheets (Taken 06/01/2025205) Progress: no change Outcome Evaluation: Patient will verbalize pain control Plan of Care Reviewed With: patient durable power of claim attorney Goal: Patient-Specific Goal (Individualized) Outcome: Ongoing, Progressing Flowsheets (Taken 05/31/20252026) Patient/Family-Specific Goals (Include Timeframe): Patient will be assessed and treated for pain toachieve and maintain pain at goal of 4 through out this shift Individualized Care Needs: Pain control Anxieties, Fears or Concerns: Pain Goal: Absence of Hospital-Acquired Illness or Injury Outcome: Ongoing, Progressing Intervention: Identify and Manage Fall Risk Flowsheets (Taken 06/01/2025205) Safety Promotion/Fall Prevention: activity supervised safety round/check completed toileting scheduled fall prevention program maintained clutter-free environment maintained Intervention: Prevent Skin Injury Flowsheets (Taken 06/01/2025 020) Body Position: weight shifting Intervention: Prevent Infection Flowsheets (Taken 06/01/2025205) Infection Prevention: environmental surveillance performed equipment surfaces disinfected hand hygiene promoted rest/sleep promoted Goal: Optimal Comfort and Wellbeing Outcome: Ongoing, Progressing Intervention: Provide Person-Centered Care Flowsheets (Taken 06/01/2025205) Trust Relationship/Rapport: choices provided emotional support provided empathic listening provided questions answered questions encouraged reassurance provided thoughts/feelings acknowledged Problem: Skin Injury Risk Increased Goal: Skin Health and Integrity Outcome: Ongoing, Progressing Intervention: Promote and Optimize Oral Intake Flowsheets (Taken 06/01/2025205) Oral Nutrition Promotion: rest periods promoted Nutrition Interventions: referred to casino assistant manager/tech * Significant Event - Perry Benton MD - 06/01/2025 12:53 AM EDT Images from the original note were not included. [facility] Department of Surgery Division of Surgical Oncology Post Operative Check: Subjective: Procedure: diagnostic laparoscopy, portal lymph node dissection, segment 4B/5 partial hepatectomy, omental flap Patient currently reports pain is well controlled. Denies any nausea and vomiting. She has been having good urine output through lilly cath. Pain Control: PCEA and Robaxin Objective: Vitals: Vitals: 05/31/25 2350 BP: Pulse: Resp: 14 Temp: SpO2: Physical Exam: GEN: No apparent distress. Lethargic from anesthesia. NEURO: Awake, alert and oriented x3. No focal deficits. HENT: NCAT. Trachea appears midline. EYES: Symmetric lids. No visible conjunctival hemorrhage. CV: Appears well-perfused. Regular rhythm. Normal rate. RESP: Symmetric chest rise. Non-labored breathing. ABD: Soft and nontender. Surgical sites are clean, dry and intact without erythema or edema. MSK: Moves all extremities. No obvious deformities. SKIN: Warm and dry. Without pallor. PSYCH: Appropriate mood and affect. Normal speech and content. Incisions: healing well LTD: PIV left AC, PIV right hand, PCEA, lilly cath Laboratory: CBC WBC @LLVAL1 8(WBC)@ Hgb 12.4 PLT 267 HCT 37.6 Coags: INR ?? PTT ?? antiXa ?? BMP Na 142 Cl 109 (H) BUN 8 Gluc 172 (H) K 3.4 (L) CO2 20 (L) Creat 0.44 (L) Ca 8.0 (L) iCa 4.6 Mg 1.4 (L) Phos 3.2 ABG pH 7.35 pCO2 40 pO2 79 SPO2 96 FIO2 ?? HCO3 22 BE -3.1 (L) Lactate 0.7 LFTs AST 183 (H) AlkPhos 98 T Prot 5.6 (L) ALT 93 (H) Bili 0.5 Alb ?? D.Bili ?? Assessment and Plan: Alyssia Holly is a 74 y.o. female who is POD 0 s/p diagnostic laparoscopy, portal lymph node dissection, segment 4B/5 partial hepatectomy, omental flap is recovering appropriately in the current post op period. Will continue to monitor. Diet: NPO Anticoagulation/DVT ppx: SubQ heparin Pain management: PCEA and Robaxin Level of care: Continue Current Level of Care I have answered and addressed all issues and concerns from the patient and nursing staff. I have notified senior resident/attending railroad crossing protection maintainer with any issues or concerns. Perry Benton MD, PharmD * Consults - Sachin Foy RN - 05/31/2025 6:49 PM EDT Acute Pain Service Follow-Up Evaluation Alyssia Holly is a 74 y.o. female Follow-Up: Follow-up reason: APS rounds Location: abdomen Pain Rating (0-10): 9 Comfort/ Acceptable Pain Level: 4 Acute Pain Service Comments: Gave 5ml bolus while at bedside for patient rating pain 9/10. Has had 5 doses of bupivacaine for 13.2ml in 2 hours. Follow-Up: Follow-Up: Acute Pain Service will continue to follow and adjust as needed. Visit Type: Routine Current Analgesic Treatments: Inpatient Analgesics Active Medications Medication Name Dose Route Frequency HYDROmorphone (PF) 10 mcg/mL + bupivacaine (PF) 1.25 mg/mL in 100 mL (PF) HOGSHEAD WEIGHER no dose Epidural Continuous hydromorphone 10 mcg/mL + bupivacaine 1.25 mg/mL clinician bolus dose 1-5 mL Epidural PRN for severe pain methocarbamol (Robaxin) injection 1,000 mg 1,000 mg Intravenous q8h naloxone (Narcan) 2 mg in sodium chloride 0.9 % 100 mL (0.02 mg/mL) infusion (Urinary Retention or Pruritus) 0.25-1 mcg/kg/hr Intravenous Titrated PRN for urinary retention, itching Rate: 0.81-3.23 mL/hr naloxone (Narcan) injection 0.08 mg 0.08 mg Intravenous q1 min PRN for respiratory depression, For respiratory rate < 10 naloxone (Narcan) injection 0.4 mg 0.4 mg Intravenous PRN for respiratory depression Epidural hydromorphone 10mcg bupivacaine 1.25mg 10/24/09 T6-T7 10cm at skin- Ex- lap, partial hepatectomy Blood pressure 122/61, pulse 89, temperature 36.7 ??C (98.1 ??F), resp. rate 14, SpO2 96%. Please Contact Acute Pain Service with any additional questions or concerns via [email or web address] [phone]. * Anesthesia PACU Signout - Obed Eric MD - 05/31/2025 6:06 PM EDT Patient: Alyssia Holly Anesthesia Type: general, epidural Vitals Value Taken Time BP 122/61 05/31/25 18:00 Temp 36.7 ??C (98 ??F) 05/31/25 18:05 Pulse 94 05/31/25 18:05 Resp 20 05/31/25 18:05 SpO2 98 % 05/31/25 18:05 Vitals shown include unfiled device data. Anesthesia PACU Signout Patient location during evaluation: PACU Patient participation: complete - patient participated Level of consciousness: baseline and awake Pain management: adequate (pain score 0-3) Airway patency: natural airway Hydration status: acceptable PONV: none Cardiovascular status: acceptable and hemodynamically stable Respiratory status: acceptable, spontaneous ventilation, unassisted and nonlabored ventilation Discharge Disposition: admit to inpatient unit Cosigned by Pauline Mohamud MD at 05/31/2025 6:06 PM EDT Associated attestation - Pauline Mohamud MD - 05/31/2025 6:06 PM EDT Agree with above assessment and evaluation from resident/MAP MAKER. * Consults - Sachin Foy RN - 05/31/2025 5:18 PM EDT Acute Pain Service Hookup Alyssia Holly is a 74 y.o. female Visit Type: Complex Reason for Hookup: Came to see patient for epidural hookup. Blood pressure 129/56, pulse 91, temperature 36.5 ??C (97.7 ??F), resp. rate 21, SpO2 92%. Medications Inpatient Analgesics Active Medications Medication Name Dose Route Frequency fentaNYL (Sublimaze) injection 25 mcg 25 mcg Intravenous q5 min PRN for pain score of 3-4 out of 10 fentaNYL (Sublimaze) injection 50 mcg 50 mcg Intravenous q5 min PRN for pain score of 5-8 out of 10 HYDROmorphone (Dilaudid) injection 0.5 mg 0.5 mg Intravenous q10 min PRN for pain score of 9-10 outof 10 HYDROmorphone (PF) 10 mcg/mL + bupivacaine (PF) 1.25 mg/mL in 100 mL (PF) HOGSHEAD WEIGHER no dose Epidural Continuous hydromorphone 10 mcg/mL + bupivacaine 1.25 mg/mL clinician bolus dose 1-5 mL Epidural PRN for severe pain naloxone (Narcan) 2 mg in sodium chloride 0.9 % 100 mL (0.02 mg/mL) infusion (Urinary Retention or Pruritus) 0.25-1 mcg/kg/hr Intravenous Titrated PRN for urinary retention, itching Rate: 0.81-3.23 mL/hr naloxone (Narcan) injection 0.08 mg 0.08 mg Intravenous q1 min PRN for respiratory depression, For respiratory rate < 10 naloxone (Narcan) injection 0.4 mg 0.4 mg Intravenous PRN for respiratory depression oxyCODONE (Roxicodone) immediate release tablet 5 mg 5 mg Oral Once PRN for pain score of 3-5 out of 10 oxyCODONE (Roxicodone) immediate release tablet 10 mg 10 mg Oral Once PRN for pain score of 6-8 outof 10 Epidural hydromorphone 10mcg bupivacaine 1.25mg 10/24/09 T6-T7 10cm at skin- Ex- lap, partial hepatectomy HOGSHEAD WEIGHER Education: Patient/ family HOGSHEAD WEIGHER education done: Yes Pre-hook-up Assessment: Pain Rating (0-10): 10 Comfort/ Acceptable Pain Level: 4 Location: abdomen Epidural insertion site: occlusive dressing intact Epidural motor function: Able to bend knees Hook-up Time: Hooked up at 1715 with 0 ml bolus. Nursing gave 0.5mg IV dilaudid prior to hookup. No bolus given. Additional Comments: Negative Aspiration. * Op Note - Steev Veloz MD - 05/31/2025 2:06 PM EDT Operative Note Date: 05/31/25 Location: [facility] Name: Alyssia Holly, : 1950, Diagnoses: Pre-op Diagnosis Adenocarcinoma of gallbladder (CMS/HCC) Post-op Diagnosis Adenocarcinoma of gallbladder (CMS/HCC) Procedure(s): Diagnostic laparoscopy Exploratory laparotomy Portal lymph node dissection Segment 4B/5 partial hepatectomy Omental flap Attending Surgeon(s): * Steve Veloz - Primary Interior Wall Assembler(s): * Liza De La Vega MD - Resident - Assisting Anesthesia: General ASA: III Blood Administration: Blood Product Administration History None Estimated Blood Loss: 100mL Drains: Urethral Catheter Non-latex;Single lumen;Temperature probe 16 Fr. (Active) Site Assessment Clean;Skin intact 05/31/251649 CAUTI: Collection Container Standard drainage bag;Collection container below bladder and tubing free of kinks 05/31/251649 CAUTI: Securement Method Securing device (Describe) 05/31/251649 CAUTI: Specimen Collection Port Covered with Alcohol Cap Yes 05/31/251649 Specimen: Specimens ID Source Frozen? 1 Other (specify site) Yes Description: dariana-hepatic nodule 2 Lymph Node (specify site): No Description: hepatic artery lymph nodes 3 Other (specify site) No Description: central portal lymph node 4 Lymph Node (specify site): No Description: deonna caval lymph node 5 Other (specify site) No Description: cystic duct margin - stitch burgos true margin 6 Lymph Node (specify site): No Description: left portal lymph nodes 7 Liver No Description: segment 4B/5 partial hepatectomy Findings: No ascites, peritoneal carcinomatosis, or diffuse liver metastatic disease Moderate omental adhesions to the recent upper midline laparotomy incision Intact distal stomach omental patch Dropped gallstone in right upper quadrant resected; frozen section benign No gross evidence of residual disease Indications: Alyssia Holly is an 74 y.o. female who underwent a laparoscopic cholecystectomy ata outside hospital, with pathology incidentally revealing a T2 N0 gallbladder adenocarcinoma with a negative lymph node of [place] and cystic duct margin. Imaging did not reveal any obvious residual disease, however, CA 19-9 was mildly elevated. In the several weeks after her initial recovery, the patient unfortunately suffered a perforated gastric ulcer which was treated with an open Josh patchat an outside hospital. The patient was now referred to me for further management. We discussed in multidisciplinary tumor board, and the recommendation was to proceed with a diagnostic laparoscopy and possible open segment 4B/5 partial hepatectomy and lymph node dissection. I discussed with the patient the risks, benefits, and alternatives specifically, bleeding, infection, postoperative liver failure, bile leak, injury to adjacent structures including the biliary tree, vasculature, pancreas, bowel, stomach, or diaphragm. We discussed the risk of cardiopulmonary complications, stroke, and . We got discussed the possibility of unsuccessful surgery due to the extent of previous recent surgery and prohibitive adhesions. After this discussion the patient agreed to the procedure. Narrative: After informed consent was obtained, the anesthesia service placed an epidural catheter in the preoperative holding area. Subcutaneous heparin was administered. The patient was brought to the operating room and placed in the supine position on the operative table. SCD boots were placed and activated. General anesthesia was induced without complication. Anesthesia placed additional IVs as well as an arterial line. A Lilly catheter was placed. The patient was positioned with the arms tucked with all pressure points carefully padded. The abdomen was shaved, and then prepped and draped in the usual sterile fashion. Preoperative antibiotics were given. A surgical time-out was performed. First, we performed a diagnostic laparoscopy. The patient was placed in the reverse Trendelenburg position. A Veress needle technique was used in the left upper quadrant to insufflate the abdomen to 15 mmHg without adverse hemodynamic effect. A 5mm Optiview trochar was used to enter the abdomen in the same position. There was no sign of injury from our entry or from the Veress needle. The abdomenwas surveyed and there was no ascites, peritoneal carcinomatosis, or liver metastatic disease. There were moderate omental adhesions underlying the recent midline laparotomy which appeared relativelyfilmy. I placed another 5 mm port in the right lower quadrant and used a bowel grasper to confirm that these adhesions were easily from the abdominal wall. Given these findings, I made the decision to convert to open for the planned procedure. The laparoscopic equipment was passed off. A midline laparotomy incision was made with a #10 blade from the xiphoid down to just abovethe umbilicus . Electrocautery was used to go through the dermis, subcutaneous fat, and midline fascia revealing preperitoneal fat which was opened with the Ligasure, gaining access to the peritoneal cavity. Omental adhesions to the abdominal wall were taken down with LigaSure, cautery, and sharp dissection. Blunt dissection was used to free the abdominal wall overlying the liver from the liver itself. The ligamentum teres remnant was secured with a right angle clamp and controlled with a 2-0 Vicryl suturetie to use as a handle for the liver. The Flores retractor was inserted to gain better exposure. Omental adhesions to the lower edge of the liver were divided with LigaSure, cautery, and sharp dissection. The lesser omentum was opened and an accessory artery in this area was preserved. The rightside of the liver was freed from the retroperitoneum. In this area I discovered a 3 cm oblong firm structure which I suspected was a dropped gallstone. This was resected from retroperitoneal fat withLigaSure and sent for frozen section which revealed a hyalinized benign structure. Exposure was improved by placing malleable retractors in the right lower quadrant and the left upper quadrant, as well as a sweetheart retractor on the left lateral segment of the liver. The distal stomach and duodenum were inspected. There was evidence of an omental patch to the distal stomach and silk stitches. This was left intact. Sharp dissection, cautery, and LigaSure were usedto perform a partial Josr maneuver. There was an area of deserosalization on proximal D1 which was repaired with 3- 0 Vicryl Lembert sutures transversely. The right gastric artery was divided with clips and LigaSure. The hepatic artery lymph nodes were resected with LigaSure. The common hepatic artery and the GDA were encircled with vessel loops. The lymphatic tissue anterior to the distal common bile duct was divided with LigaSure. The portacaval lymph nodes and the left portal nodes were then resected. The cystic duct remnant was about 2.5 cm long. This was sharply incised with Metzenbaum scissors about 3 mm from the origin on the common hepatic duct. The orifice was then closed with running 5 0 PDS. I turned my attention to the liver resection. The hilar plate was lowered with blunt dissection. Using cautery, I marked out a segment 4B/5 partial hepatectomy, measuring about 2 cm from the visible area with the gallbladder had been attached to the liver in all directions. Aquamantys was used to dissect into the liver. The LigaSure [place] tip handheld device was used to performed parenchymal dissection using the foot pedal with a double burn technique. As I dissected down into the deepest portion of the resection bed, I found the middle hepatic terminal from vein branch which was divided with a a small clip and LigaSure. Eventually, the liver resection specimen was from the mari ent, passed off, and sent to the pathology lab labeled as segment 4B/5 partial hepatectomy. Hemostasis was confirmed in the surgical bed. An omental flap based on the right side of the omentum and the gastroepiploic arcade was mobilized and tucked into the right upper quadrant. This was secured with 3-0 Vicryl sutures to ligamentum teres. After correct sponge, instrument, and needle count, we then proceeded with closure tray with clean instruments and gloves. The fascia was closed with The fascia was closed with interrupted 0-0 PDS sutures in [id number] fashion. The wound was irrigated copiously. Hemostasis was confirmed. A fat/Monique's layer was closed with running 2-0 Vicryl. Skin was stapled. A sterile dressing was applied. At the conclusion of the procedure, the patient was awoken from anesthesia, extubated, and taken to the recovery room in stable condition. Complications: None; patient tolerated the procedure well. Submitted by: Steve Veloz MD - 05/31/2025 * Brief Op Note - Liza De La Vega MD - 05/31/2025 2:06 PM EDT Date: 05/31/25 Location: [place] [facility] Name: Alyssia Holly, : 1950, Diagnoses: Pre-op Diagnosis Adenocarcinoma of gallbladder (CMS/HCC) Post-op Diagnosis Adenocarcinoma of gallbladder (CMS/HCC) Procedure(s): Diagnostic laparoscopy, segment IVB and V partial hepatectomy, portal lymph node dissection Attending Surgeon(s): * Steve Veloz - Primary Interior Wall Assembler(s): * Liza De La Vega MD - Resident - Assisting Anesthesia: General ASA: III Blood Administration: Blood Product Administration History None Estimated Blood Loss: 100 Drains: none Specimen: Specimens ID Source Frozen? 1 Other (specify site) Yes Description: dariana-hepatic nodule 2 Lymph Node (specify site): No Description: hepatic artery lymph nodes 3 Other (specify site) No Description: central portal lymph node 4 Lymph Node (specify site): No Description: deonna caval lymph node 5 Other (specify site) No Description: cystic duct margin - stitch burgos true margin 6 Lymph Node (specify site): No Description: left portal lymph nodes 7 Liver No Description: segment 4B/5 partial hepatectomy Complications: None; patient tolerated the procedure well. Submitted by: Liza De La Vega MD - 05/31/2025 Cosigned by Steve Veloz MD at 05/31/2025 5:24 PM EDT * Hospital Course - Margarette Diaz, VICE PRESIDENT OF ADVERTISING - 05/31/2025 1:50 PM EDT Alyssia Holly is a 74 y.o. female with a past medical history of HTN, PUD, cervical cancer (29y/o), colon cancer (rsxn 2010), who presented to [facility] as a scheduled surgical intervention for management of adenocarcinoma of gallbladder. On 05/31/2025, the patient underwent diagnostic laparoscopy, exploratory laparotomy, portal lymph node dissection, segment 4B/5 partial hepatectomy, omental flap by Dr. Veloz. The procedure was tolerated well with no intraoperative complications. . The remaining hospital course was uncomplicated. Discharge medication to highlight: - Pain medication: Patient will be discharged with Robaxin for regular daily pain management. Patient will also be prescribed oxycodone for as needed breakthrough severe pain. - Lovenox: Patient will be on lovenox for 28 days from the surgery date (05/31/2025) and will end on 06/28/25. - Restart home meds as listed below Significant to discharge: - Patient will be discharged still reinier across their incision and should be removed in clinic attheir follow up appointment. On 06/08/2025, patient has been hemodynamically stable and deemed medically appropriate for discharge. Currently, the patient's pain is well controlled on an oral regimen. They have return of bowel function and are tolerating a GI soft diet with no nausea/vomiting. There were no difficulties voiding. The patient will be discharged to Home with Home Health. Follow-up appointments: - The patient will follow-up with [facility] in one week and Dr. Veloz in 3 weeks. * H&P - Marbin Davis APRN - 05/31/2025 10:56 AM EDT H&P reviewed. The patient was examined and there are no changes to the H&P. NO changes to medical history. - To OR for ex lap, partial hepatectomy - All questions answered - Consent previously obtained and in patient chart - AC held and NPO since midnight - morning medications taken: losartan, oxybutynin, potassium H&P copy forward from clinic Surgical Oncology Outpatient Progress note Chief complaint: Alyssia Holly is a 74 y.o. seen in continued consultation from Steve López MD for gallbladder adenocarcinoma History of Present Illness: Alyssia Holly is [...] Albrecht annually and medical oncology clinic at [facility]. 03/01/2025: CT scan of abdomen and [...] for potential malignancy. Pathology was sent to [facility] which noted small area of adenocarcinoma with invasion into the perimuscular connective tissue in the background mucosa extensive dysplasia. It is unclear whether the perimuscular invasion was on the peritoneal versus hepatic side so can not clarify what pT2 subcategory. The cystic duct margin was negative [...] consult with Dr. López medical oncology at [facility]. Patient appears to have stage IIA or 2B disease. Patient had lab work including CA [address] was also ordered to rule out any distant metastases. Plan is that if all testing is unremarkable she will be referred to [facility] for surgical evaluation. Referred to Surgical Oncology at [facility]. 05/11/25: SurgOnc Consult. Ca19-9 39.5. Discussed with [...] pylorus. No discrete nodularity to suggest carcinomatosis. Past Medical History: [Past Medical History Pertinent Negatives] [Past Medical History Pertinent Negatives] Past Medical History Diagnosis Date Personal history of other diseases of the circulatory system History of hypertension Personal history of urinary calculi Personal history of renal calculi Past Surgical History: [Surgical History] [Surgical History] Past Surgical History Procedure Laterality Date BREAST AUGMENTATION Bilateral 1978 CATARACT EXTRACTION N/A Cataract Surgery from [facility] CHOLECYSTECTOMY N/A Cholecystectomy from [facility] HIP ARTHROPLASTY Bilateral LUMBAR FUSION L4-L5 NASAL SEPTUM SURGERY N/A Nasal Septal Deviation Repair from [facility] OTHER SURGICAL HISTORY N/A Percutaneous Lithotomy from [facility] OTHER SURGICAL HISTORY gastric ulcer perferation RIGHT COLECTOMY TONSILLECTOMY N/A Tonsillectomy from [facility] Social History: Tobacco: Tobacco Use: Low Risk (05/25/2025) Patient History Smoking Tobacco Use: Never Smokeless Tobacco Use: Never Passive Exposure: Not on file Alcohol: Alcohol Use: Not on file Illicit drug use: Social History Substance and Sexual Activity Drug Use Never Allergies: [Allergies] [Allergies] Allergen Reactions Other Swelling Aerosol disinfectant- especially Lysol Nickel Rash Family Medical History: family history is not [...] mouth 3 times a week. Takes M-W-F 03/19/24 Yes Provider, Historical triamterene-hydrochlorothiazide (Maxzide-25) 37.5-25 MG [...] Pathology: Final Diagnosis (no units) Date/Time Value 05/05/2025 1325 GALLBLADDER, SIMPLE CHOLECYSTECTOMY (OUTSIDE CASE: [id number] COLLECTED ON 03/25/2025): - INVASIVE WELL-DIFFERENTIATED ADENOCARCINOMA, FUNDUS/BODY (APPROX. 1.2 CM IN SIZE, PER REPORT) - TUMOR ARISING IN A BACKGROUND OF EXTENSIVE LOW AND HIGH-GRADE GLANDULAR DYSPLASIA - INVASIVE GLANDS AND MUCIN FOCALLY EXTEND INTO PERIMUSCULAR CONNECTIVE TISSUE (SEE COMMENT) - CYSTIC DUCT MARGIN OF RESECTION IS NEGATIVE FOR CARCINOMA/DYSPLASIA - SINGLE BENIGN PERICYSTIC LYMPH NODE (0/1) Comment (no units) Date/Time Value 05/05/2025 1325 The specific location of perimuscular invasion (peritoneal [...] Consent was signed at the clinic visit. Ismael Bowie MD 05/25/25 1:54 PM Cosigned by Steve Veloz MD at 06/01/2025 6:19 PM EDT Associated attestation - Steve Veloz MD - 06/01/2025 6:19 PM EDT I attest to being involved in providing substantive part of the medical decision making in patient care. documented in this encounter Plan of Treatment Scheduled Referrals Name Type Priority Associated Diagnoses Order Schedule Discharge Ambulatory referral to NON [facility] Outpatient Referral Routine Adenocarcinoma of gallbladder (CMS/HCC) 1 Occurrences starting 06/07/2025 until 12/09/2026 documented as of this encounter Procedures Procedure Name Priority Date/Time Associated Diagnosis Comments CBC W/O DIFFERENTIAL Routine 06/08/2025 3:59 AM EDT PHOSPHORUS, PLASMA Routine 06/08/2025 3: 59 AM EDT MAGNESIUM, PLASMA Routine 06/08/2025 3:5 9 AM EDT COMPREHENSIVE METABOLIC PANEL, PLASMA Routine 06/08/2025 3:59 AM EDT CBC W/O DIFFERENTIAL Routine 06/07/2025 3:39 AM EDT PHOSPHORUS, PLASMA Routine 06/07/2025 3: 39 AM EDT MAGNESIUM, PLASMA Routine 06/07/2025 3:3 9 AM EDT COMPREHENSIVE METABOLIC PANEL, PLASMA Routine 06/07/2025 3:39 AM EDT CBC W/O DIFFERENTIAL Routine 06/06/2025 4:43 AM EDT PHOSPHORUS, PLASMA Routine 06/06/2025 4: 43 AM EDT MAGNESIUM, PLASMA Routine 06/06/2025 4:4 3 AM EDT COMPREHENSIVE METABOLIC PANEL, PLASMA Routine 06/06/2025 4:43 AM EDT CBC W/O DIFFERENTIAL Routine 06/05/2025 3:43 AM EDT PHOSPHORUS, PLASMA Routine 06/05/2025 3: 43 AM EDT MAGNESIUM, PLASMA Routine 06/05/2025 3:4 3 AM EDT COMPREHENSIVE METABOLIC PANEL, PLASMA Routine 06/05/2025 3:43 AM EDT CBC W/O DIFFERENTIAL Routine 06/04/2025 5:02 AM EDT PHOSPHORUS, PLASMA Routine 06/04/2025 5 :02 AM EDT MAGNESIUM, PLASMA Routine 06/04/2025 5:0 2 AM EDT COMPREHENSIVE METABOLIC PANEL, PLASMA Routine 06/04/2025 5:02 AM EDT CBC W/O DIFFERENTIAL Routine 06/03/2025 6:14 AM EDT PHOSPHORUS, PLASMA Routine 06/03/2025 3: 52 AM EDT MAGNESIUM, PLASMA Routine 06/03/2025 3:5 2 AM EDT COMPREHENSIVE METABOLIC PANEL, PLASMA Routine 06/03/2025 3:52 AM EDT CBC W/O DIFFERENTIAL Routine 06/02/2025 2:13 AM EDT PHOSPHORUS, PLASMA Routine 06/02/2025 2: 13 AM EDT MAGNESIUM, PLASMA Routine 06/02/2025 2:1 3 AM EDT COMPREHENSIVE METABOLIC PANEL, PLASMA Routine 06/02/2025 2:13 AM EDT CBC W/O DIFFERENTIAL Routine 06/01/2025 9:25 AM EDT PHOSPHORUS, PLASMA Routine 06/01/2025 9: 25 AM EDT MAGNESIUM, PLASMA Routine 06/01/2025 9:2 5 AM EDT COMPREHENSIVE METABOLIC PANEL, PLASMA Routine 06/01/2025 9:25 AM EDT CBC WITH AUTO DIFFERENTIAL Routine 05/31/2025 5:04 PM EDT PHOSPHORUS, PLASMA Routine 05/31/2025 5: 04 PM EDT MAGNESIUM, PLASMA Routine 05/31/2025 5:0 4 PM EDT BLOOD GAS PANEL, ARTERIAL Routine 05/31/2025 5:04 PM EDT COMPREHENSIVE METABOLIC PANEL, PLASMA Routine 05/31/2025 5:04 PM EDT SURGICAL PATHOLOGY EXAM Routine 05/31/2025 2:44 PM EDT Adenocarcinoma of gallbladder (CMS/HCC) OK LAP,DIAGNOSTIC ABDOMEN 05/31/2025 1:06 PM EDT Adenocarcinoma of gallbladder (CMS/HCC) Special Needs Aquamantys, [id number], Ligasure OK RESEC LIVER,PART LOBECTOMY 05/31/2025 1:06 PM EDT Adenocarcinoma of gallbladder (CMS/HCC) Special Needs Aquamantys, [id number], Ligasure TYPE AND SCREEN Routine 05/31/2025 10:27 AM EDT documented in this encounter Results * Phosphorus, Plasma (06/08/2025 3:59 AM EDT) Phosphorus, Plasma 4.1 2.5 - 4.5 mg/dL 06/08/2025 4:52 AM EDT [facility] Blood Venous blood specimen / Unknown Venipuncture / Unknown 06/08/2025 3:59 AM EDT 06/08/2025 4:23 AM EDT Steve Veloz MD LAB BLOOD ORDERABLES Final R esult Performing Organization Address [facility]/ZIP Co de Phone Number [facility] [address] [place] [address] * (ABNORMAL) Magnesium, Plasma (06/08/2025 3:59 AM EDT) Magnesium, Plasma 1.6(L) 1.9 - 2.4 mg/dL 06/08/2025 4:52 AM EDT [facility] Blood Venous blood specimen / Unknown Venipuncture / Unknown 06/08/2025 3:59 AM EDT 06/08/2025 4:23 AM EDT Steve Veloz MD LAB BLOOD ORDERABLES Final R esult [facility] [address] [place] [address] * (ABNORMAL) Comprehensive Metabolic Panel, Plasma (06/08/2025 3:59 AM EDT) Glucose, Plasma 89 74 - 99 mg/dL 06/08/2025 4:52 AM EDT [facility] BUN, Plasma 8 8 - 23 mg/dL 06/08/2025 4:52 AM EDT [facility] Creatinine, Plasma 0.49(L) 0.60 - 1.10 mg/dL 06/08/2025 4:52 AM EDT [facility] BUN/Creatinine Ratio 16 06/08/2025 4:52 AM EDT [facility] Sodium, Plasma 137 136 - 145 mmol/L 06/08/2025 4:52 AM EDT [facility] Potassium, Plasma 3.9 3.6 - 4.9 mmol/L 06/08/2025 4:52 AM EDT [facility] Chloride, Plasma 104 97 - 107 mmol/L 06/08/2025 4:52 AM EDT [facility] CO2, Plasma 23 22 - 29 mmol/L 06/08/2025 4:52 AM EDT [facility] Anion Gap 10 6 - 16 mmol/L 06/08/2025 4:52 AM EDT [facility] Total Calcium, Plasma 8.7(L) 8.9 - 10.2 mg/dL 06/08/2025 4:52 AM EDT [facility] Total Protein 5.3(L) 6.3 - 7.9 g/dL 06/08/2025 4:52 AM EDT [facility] Albumin, Plasma 2.7(L) 3.5 - 5.2 g/dL 06/08/2025 4:52 AM EDT [facility] AST, Plasma 22 10 - 35 U/L 06/08/2025 4:52 AM EDT [facility] ALT, Plasma 25 10 - 35 U/L 06/08/2025 4:52 AM EDT [facility] Alkaline Phosphatase, Plasma 154(H) 46 - 142 U/L 06/08/2025 4:52 AM EDT [facility] Total Bilirubin, Plasma 0.3 0.2 - 1.1 mg/dL 06/08/2025 4:52 AM EDT [facility] eGFRcr 98.4 mL/min/1.7 3m*2 06/08/2025 4:52 AM EDT [facility] Comment:Reported eGFRcr in m L/min/1.73m2 is based the CKD-EPI 2020 equation that does not use a race coefficient. Blood Venous blood specimen / Unknown Venipuncture / Unknown 06/08/2025 3:59 AM EDT 06/08/2025 4:23 AM EDT us Steve Veloz MD LAB BLOOD ORDERABLES Final R esult [facility] [address] [place] [address] * (ABNORMAL) CBC W/O Differential (06/08/2025 3:59 AM EDT) WBC Count 11.26(H) 3.70 - 10.30 10*3/uL LAB HEMATOLOGY METHOD 06/08/2025 4:34 AM EDT [facility] RBC Count 3.10(L) 3.90 - 5.20 10*6/uL LAB HEMATOLOGY METHOD 06/08/2025 4:34 AM EDT [facility] HGB 9.5(L) 11.2 - 15.7 g/dL LAB HEMATOLOGY METHOD 06/08/2025 4:34 AM EDT [facility] HCT 28.7(L) 34.0 - 45.0 % LAB HEMATOLOGY METHOD 06/08/2025 4:34 AM EDT [facility] Platelet Count 320 155 - 369 10*3/uL LAB HEMATOLOGY METHOD 06/08/2025 4:34 AM EDT [facility] MCV 93 79 - 98 fL LAB HEMATOLOGY METHOD 06/08/2025 4:34 AM EDT [facility] MCH 30.6 26.0 - 32.0 pg LAB HEMATOLOGY METHOD 06/08/2025 4:34 AM EDT [facility] MCHC 33.1 30.7 - 35.5 g/dL LAB HEMATOLOGY METHOD 06/08/2025 4:34 AM EDT [facility] RDW 13.6 11.5 - 14.5 % LAB HEMATOLOGY METHOD 06/08/2025 4:34 AM EDT [facility] MPV 11.6 8.8 - 12.5 fL LAB HEMATOLOGY METHOD 06/08/2025 4:34 AM EDT [facility] nRBC 0.0 <=0.0 per 100 WBCs LAB HEMATOLOGY METHOD 06/08/2025 4:34 AM EDT [facility] Blood Venous blood specimen / Unknown Venipuncture / Unknown 06/08/2025 3:59 AM EDT 06/08/2025 4:27 AM EDT Steve Veloz MD LAB BLOOD ORDERABLES Final R esult [facility] [address] [place] [address] * Phosphorus, Plasma (06/07/2025 3:39 AM EDT) Phosphorus, Plasma 3.5 2.5 - 4.5 mg/dL 06/07/2025 4:25 AM EDT [facility] Blood Venous blood specimen / Unknown Venipuncture / Unknown 06/07/2025 3:39 AM EDT 06/07/2025 3:54 AM EDT Steve Veloz MD LAB BLOOD ORDERABLES Final R esult Performing Organization Address City/[facility]/ZIP Co de Phone Number [facility] [address] [place] [address] * (ABNORMAL) Magnesium, Plasma (06/07/2025 3:39 AM EDT) Magnesium, Plasma 1.7(L) 1.9 - 2.4 mg/dL 06/07/2025 4:25 AM EDT [facility] Blood Venous blood specimen / Unknown Venipuncture / Unknown 06/07/2025 3:39 AM EDT 06/07/2025 3:54 AM EDT Steve Veloz MD LAB BLOOD ORDERABLES Final R esult [facility] [address] [place] [address] * (ABNORMAL) Comprehensive Metabolic Panel, Plasma (06/07/2025 3:39 AM EDT) Glucose, Plasma 97 74 - 99 mg/dL 06/07/2025 4:25 AM EDT [facility] BUN, Plasma 7(L) 8 - 23 mg/dL 06/07/2025 4:25 AM EDT [facility] Creatinine, Plasma 0.48(L) 0.60 - 1.10 mg/dL 06/07/2025 4:25 AM EDT [facility] BUN/Creatinine Ratio 06/07/2025 4:25 AM EDT [facility] Sodium, Plasma 137 136 - 145 mmol/L 06/07/2025 4:25 AM EDT [facility] Potassium, Plasma 3.7 3.6 - 4.9 mmol/L 06/07/2025 4:25 AM EDT [facility] Chloride, Plasma 104 97 - 107 mmol/L 06/07/2025 4:25 AM EDT [facility] CO2, Plasma 22 22 - 29 mmol/L 06/07/2025 4:25 AM EDT [facility] Anion Gap 11 6 - 16 mmol/L 06/07/2025 4:25 AM EDT [facility] Total Calcium, Plasma 8.9 8.9 - 10.2 mg/dL 06/07/2025 4:25 AM EDT [facility] Total Protein 5.5(L) 6.3 - 7.9 g/dL 06/07/2025 4:25 AM EDT [facility] Albumin, Plasma 3.0(L) 3.5 - 5.2 g/dL 06/07/2025 4:25 AM EDT [facility] AST, Plasma 28 10 - 35 U/L 06/07/2025 4:25 AM EDT [facility] ALT, Plasma 36(H) 10 - 35 U/L 06/07/2025 4:25 AM EDT [facility] Alkaline Phosphatase, Plasma 176(H) 46 - 142 U/L 06/07/2025 4:25 AM EDT [facility] Total Bilirubin, Plasma 0.3 0.2 - 1.1 mg/dL 06/07/2025 4:25 AM EDT [facility] eGFRcr 98.9 mL/min/1.7 3m*2 06/07/2025 4:25 AM EDT [facility] Comment:Reported eGFRcr in m L/min/1.73m2 is based the CKD-EPI 2020 equation that does not use a race coefficient. Blood Venous blood specimen / Unknown Venipuncture / Unknown 06/07/2025 3:39 AM EDT 06/07/2025 3:54 AM EDT us Steve Veloz MD LAB BLOOD ORDERABLES Final R esult [facility] [address] [place] [address] * (ABNORMAL) CBC W/O Differential (06/07/2025 3:39 AM EDT) WBC Count 11.74(H) 3.70 - 10.30 10*3/uL LAB HEMATOLOGY METHOD 06/07/2025 4:06 AM EDT [facility] RBC Count 3.31(L) 3.90 - 5.20 10*6/uL LAB HEMATOLOGY METHOD 06/07/2025 4:06 AM EDT [facility] HGB 10.2(L) 11.2 - 15.7 g/dL LAB HEMATOLOGY METHOD 06/07/2025 4:06 AM EDT [facility] HCT 30.5(L) 34.0 - 45.0 % LAB HEMATOLOGY METHOD 06/07/2025 4:06 AM EDT [facility] Platelet Count 304 155 - 369 10*3/uL LAB HEMATOLOGY METHOD 06/07/2025 4:06 AM EDT [facility] MCV 92 79 - 98 fL LAB HEMATOLOGY METHOD 06/07/2025 4:06 AM EDT [facility] MCH 30.8 26.0 - 32.0 pg LAB HEMATOLOGY METHOD 06/07/2025 4:06 AM EDT [facility] MCHC 33.4 30.7 - 35.5 g/dL LAB HEMATOLOGY METHOD 06/07/2025 4:06 AM EDT [facility] RDW 13.6 11.5 - 14.5 % LAB HEMATOLOGY METHOD 06/07/2025 4:06 AM EDT [facility] MPV 11.6 8.8 - 12.5 fL LAB HEMATOLOGY METHOD 06/07/2025 4:06 AM EDT [facility] nRBC 0.0 <=0.0 per 100 WBCs LAB HEMATOLOGY METHOD 06/07/2025 4:06 AM EDT [facility] Blood Venous blood specimen / Unknown Venipuncture / Unknown 06/07/2025 3:39 AM EDT 06/07/2025 3:56 AM EDT Steve Veloz MD LAB BLOOD ORDERABLES Final R esult Performing Organization Address City/[facility]/ZIP Co de Phone Number [facility] [address] [place] [address] * Phosphorus, Plasma (06/06/2025 4:43 AM EDT) Phosphorus, Plasma 3.5 2.5 - 4.5 mg/dL 06/06/2025 5:24 AM EDT [facility] Blood Venous blood specimen / Unknown Venipuncture / Unknown 06/06/2025 4:43 AM EDT 06/06/2025 4:54 AM EDT Steve Veloz MD LAB BLOOD ORDERABLES Final R esult Performing Organization Address [facility] Co de Phone Number [facility] [address] [place] [address] * (ABNORMAL) Magnesium, Plasma (06/06/2025 4:43 AM EDT) Magnesium, Plasma 1.6(L) 1.9 - 2.4 mg/dL 06/06/2025 5:24 AM EDT [facility] Blood Venous blood specimen / Unknown Venipuncture / Unknown 06/06/2025 4:43 AM EDT 06/06/2025 4:54 AM EDT Steve Veloz MD LAB BLOOD ORDERABLES Final R esult Performing Organization Address City/[facility] Co de Phone Number [facility] [address] [place] [address] * (ABNORMAL) Comprehensive Metabolic Panel, Plasma (06/06/2025 4:43 AM EDT) Glucose, Plasma 93 74 - 99 mg/dL 06/06/2025 5:24 AM EDT [facility] BUN, Plasma 7(L) 8 - 23 mg/dL 06/06/2025 5:24 AM EDT [facility] Creatinine, Plasma 0.49(L) 0.60 - 1.10 mg/dL 06/06/2025 5:24 AM EDT [facility] BUN/Creatinine Ratio 14 06/06/2025 5:24 AM EDT [facility] Sodium, Plasma 138 136 - 145 mmol/L 06/06/2025 5:24 AM EDT [facility] Potassium, Plasma 3.6 3.6 - 4.9 mmol/L 06/06/2025 5:24 AM EDT [facility] Chloride, Plasma 104 97 - 107 mmol/L 06/06/2025 5:24 AM EDT [facility] CO2, Plasma 24 22 - 29 mmol/L 06/06/2025 5:24 AM EDT [facility] Anion Gap 10 6 - 16 mmol/L 06/06/2025 5:24 AM EDT [facility] Total Calcium, Plasma 8.4(L) 8.9 - 10.2 mg/dL 06/06/2025 5:24 AM EDT [facility] Total Protein 5.1(L) 6.3 - 7.9 g/dL 06/06/2025 5:24 AM EDT [facility] Albumin, Plasma 2.8(L) 3.5 - 5.2 g/dL 06/06/2025 5:24 AM EDT [facility] AST, Plasma 24 10 - 35 U/L 06/06/2025 5:24 AM EDT [facility] ALT, Plasma 41(H) 10 - 35 U/L 06/06/2025 5:24 AM EDT [facility] Alkaline Phosphatase, Plasma 157(H) 46 - 142 U/L 06/06/2025 5:24 AM EDT [facility] Total Bilirubin, Plasma 0.4 0.2 - 1.1 mg/dL 06/06/2025 5:24 AM EDT [facility] eGFRcr 98.4 mL/min/1.7 3m*2 06/06/2025 5:24 AM EDT [facility] Comment:Reported eGFRcr in m L/min/1.73m2 is based the CKD-EPI 2020 equation that does not use a race coefficient. Blood Venous blood specimen / Unknown Venipuncture / Unknown 06/06/2025 4:43 AM EDT 06/06/2025 4:54 AM EDT us Steve Veloz MD LAB BLOOD ORDERABLES Final R esult [facility] [address] [place] [address] * (ABNORMAL) CBC W/O Differential (06/06/2025 4:43 AM EDT) WBC Count 12.08(H) 3.70 - 10.30 10*3/uL LAB HEMATOLOGY METHOD 06/06/2025 5:01 AM EDT [facility] RBC Count 3.30(L) 3.90 - 5.20 10*6/uL LAB HEMATOLOGY METHOD 06/06/2025 5:01 AM EDT [facility] HGB 10.0(L) 11.2 - 15.7 g/dL LAB HEMATOLOGY METHOD 06/06/2025 5:01 AM EDT [facility] HCT 29.7(L) 34.0 - 45.0 % LAB HEMATOLOGY METHOD 06/06/2025 5:01 AM EDT [facility] Platelet Count 246 155 - 369 10*3/uL LAB HEMATOLOGY METHOD 06/06/2025 5:01 AM EDT [facility] MCV 90 79 - 98 fL LAB HEMATOLOGY METHOD 06/06/2025 5:01 AM EDT [facility] MCH 30.3 26.0 - 32.0 pg LAB HEMATOLOGY METHOD 06/06/2025 5:01 AM EDT [facility] MCHC 33.7 30.7 - 35.5 g/dL LAB HEMATOLOGY METHOD 06/06/2025 5:01 AM EDT [facility] RDW 13.3 11.5 - 14.5 % LAB HEMATOLOGY METHOD 06/06/2025 5:01 AM EDT [facility] MPV 11.3 8.8 - 12.5 fL LAB HEMATOLOGY METHOD 06/06/2025 5:01 AM EDT [facility] nRBC 0.0 <=0.0 per 100 WBCs LAB HEMATOLOGY METHOD 06/06/2025 5:01 AM EDT [facility] Blood Venous blood specimen / Unknown Venipuncture / Unknown 06/06/2025 4:43 AM EDT 06/06/2025 4:54 AM EDT Steve Veloz MD LAB BLOOD ORDERABLES Final R esult Performing Organization Address City/[facility]/[place] [address] * Phosphorus, Plasma (06/05/2025 3:43 AM EDT) Phosphorus, Plasma 3.0 2.5 - 4.5 mg/dL 06/05/2025 4:17 AM EDT [facility] Blood Venous blood specimen / Unknown Venipuncture / Unknown 06/05/2025 3:43 AM EDT 06/05/2025 3:48 AM EDT Steve Veloz MD LAB BLOOD ORDERABLES Final R esult Performing Organization Address [facility] [place] [address] * (ABNORMAL) Magnesium, Plasma (06/05/2025 3:43 AM EDT) Magnesium, Plasma 1.6(L) 1.9 - 2.4 mg/dL 06/05/2025 4:17 AM EDT [facility] Blood Venous blood specimen / Unknown Venipuncture / Unknown 06/05/2025 3:43 AM EDT 06/05/2025 3:48 AM EDT Steve Veloz MD LAB BLOOD ORDERABLES Final R esult Performing Organization Address City/[facility]/[place] [address] * (ABNORMAL) Comprehensive Metabolic Panel, Plasma (06/05/2025 3:43 AM EDT) Glucose, Plasma 89 74 - 99 mg/dL 06/05/2025 4:17 AM EDT [facility] BUN, Plasma 6(L) 8 - 23 mg/dL 06/05/2025 4:17 AM EDT [facility] Creatinine, Plasma 0.45(L) 0.60 - 1.10 mg/dL 06/05/2025 4:17 AM EDT [facility] BUN/Creatinine Ratio 06/05/2025 4:17 AM EDT [facility] Sodium, Plasma 136 136 - 145 mmol/L 06/05/2025 4:17 AM EDT [facility] Potassium, Plasma 4.2 3.6 - 4.9 mmol/L 06/05/2025 4:17 AM EDT [facility] Chloride, Plasma 104 97 - 107 mmol/L 06/05/2025 4:17 AM EDT [facility] CO2, Plasma 22 22 - 29 mmol/L 06/05/2025 4:17 AM EDT [facility] Anion Gap 10 6 - 16 mmol/L 06/05/2025 4:17 AM EDT [facility] Total Calcium, Plasma 8.0(L) 8.9 - 10.2 mg/dL 06/05/2025 4:17 AM EDT [facility] Total Protein 4.7(L) 6.3 - 7.9 g/dL 06/05/2025 4:17 AM EDT [facility] Albumin, Plasma 2.5(L) 3.5 - 5.2 g/dL 06/05/2025 4:17 AM EDT [facility] AST, Plasma 27 10 - 35 U/L 06/05/2025 4:17 AM EDT [facility] ALT, Plasma 50(H) 10 - 35 U/L 06/05/2025 4:17 AM EDT [facility] Alkaline Phosphatase, Plasma 140 46 - 142 U/L 06/05/2025 4:17 AM EDT [facility] Total Bilirubin, Plasma 0.4 0.2 - 1.1 mg/dL 06/05/2025 4:17 AM EDT [facility] eGFRcr 100.5 mL/min/1.7 3m*2 06/05/2025 4:17 AM EDT [facility] Comment:Reported eGFRcr in m L/min/1.73m2 is based the CKD-EPI 2020 equation that does not use a race coefficient. Blood Venous blood specimen / Unknown Venipuncture / Unknown 06/05/2025 3:43 AM EDT 06/05/2025 3:48 AM EDT us Steve Veloz MD LAB BLOOD ORDERABLES Final R esult [facility] [address] [place] [address] * (ABNORMAL) CBC W/O Differential (06/05/2025 3:43 AM EDT) WBC Count 12.27(H) 3.70 - 10.30 10*3/uL LAB HEMATOLOGY METHOD 06/05/2025 4:00 AM EDT [facility] RBC Count 3.24(L) 3.90 - 5.20 10*6/uL LAB HEMATOLOGY METHOD 06/05/2025 4:00 AM EDT [facility] HGB 9.8(L) 11.2 - 15.7 g/dL LAB HEMATOLOGY METHOD 06/05/2025 4:00 AM EDT [facility] HCT 29.9(L) 34.0 - 45.0 % LAB HEMATOLOGY METHOD 06/05/2025 4:00 AM EDT [facility] Platelet Count 226 155 - 369 10*3/uL LAB HEMATOLOGY METHOD 06/05/2025 4:00 AM EDT [facility] MCV 92 79 - 98 fL LAB HEMATOLOGY METHOD 06/05/2025 4:00 AM EDT [facility] MCH 30.2 26.0 - 32.0 pg LAB HEMATOLOGY METHOD 06/05/2025 4:00 AM EDT [facility] MCHC 32.8 30.7 - 35.5 g/dL LAB HEMATOLOGY METHOD 06/05/2025 4:00 AM EDT [facility] RDW 13.2 11.5 - 14.5 % LAB HEMATOLOGY METHOD 06/05/2025 4:00 AM EDT [facility] MPV 11.7 8.8 - 12.5 fL LAB HEMATOLOGY METHOD 06/05/2025 4:00 AM EDT [facility] nRBC 0.0 <=0.0 per 100 WBCs LAB HEMATOLOGY METHOD 06/05/2025 4:00 AM EDT [facility] Blood Venous blood specimen / Unknown Venipuncture / Unknown 06/05/2025 3:43 AM EDT 06/05/2025 3:48 AM EDT Steve Veloz MD LAB BLOOD ORDERABLES Final R esult [facility] [address] [place] [address] * Phosphorus, Plasma (06/04/2025 5:02 AM EDT) Phosphorus, Plasma 3.0 2.5 - 4.5 mg/dL 06/04/2025 5:41 AM EDT [facility] Blood Venous blood specimen / Unknown Venipuncture / Unknown 06/04/2025 5:02 AM EDT 06/04/2025 5:11 AM EDT Steve Veloz MD LAB BLOOD ORDERABLES Final R esult Performing Organization Address [facility] Co de Phone Number [facility] [address] [place] [address] * (ABNORMAL) Magnesium, Plasma (06/04/2025 5:02 AM EDT) Magnesium, Plasma 1.7(L) 1.9 - 2.4 mg/dL 06/04/2025 5:41 AM EDT [facility] Blood Venous blood specimen / Unknown Venipuncture / Unknown 06/04/2025 5:02 AM EDT 06/04/2025 5:11 AM EDT Steve Veloz MD LAB BLOOD ORDERABLES Final R esult Performing Organization Address City/[facility]/ZIP Co de Phone Number [facility] [address] [place] [address] * (ABNORMAL) Comprehensive Metabolic Panel, Plasma (06/04/2025 5:02 AM EDT) [facility] Glucose, Plasma 105(H) 74 - 99 mg/dL 06/04/2025 5:41 AM EDT [facility] BUN, Plasma 6(L) 8 - 23 mg/dL 06/04/2025 5:41 AM EDT [facility] Creatinine, Plasma 0.43(L) 0.60 - 1.10 mg/dL 06/04/2025 5:41 AM EDT [facility] BUN/Creatinine Ratio 14 06/04/2025 5:41 AM EDT [facility] Sodium, Plasma 138 136 - 145 mmol/L 06/04/2025 5:41 AM EDT [facility] Potassium, Plasma 3.9 3.6 - 4.9 mmol/L 06/04/2025 5:41 AM EDT [facility] Chloride, Plasma 106 97 - 107 mmol/L 06/04/2025 5:41 AM EDT [facility] CO2, Plasma 22 22 - 29 mmol/L 06/04/2025 5:41 AM EDT [facility] Anion Gap 10 6 - 16 mmol/L 06/04/2025 5:41 AM EDT [facility] Total Calcium, Plasma 8.3(L) 8.9 - 10.2 mg/dL 06/04/2025 5:41 AM EDT [facility] Total Protein 5.2(L) 6.3 - 7.9 g/dL 06/04/2025 5:41 AM EDT [facility] Albumin, Plasma 2.7(L) 3.5 - 5.2 g/dL 06/04/2025 5:41 AM EDT [facility] AST, Plasma 38(H) 10 - 35 U/L 06/04/2025 5:41 AM EDT [facility] ALT, Plasma 76(H) 10 - 35 U/L 06/04/2025 5:41 AM EDT [facility] Alkaline Phosphatase, Plasma 152(H) 46 - 142 U/L 06/04/2025 5:41 AM EDT [facility] Total Bilirubin, Plasma 0.5 0.2 - 1.1 mg/dL 06/04/2025 5:41 AM EDT [facility] eGFRcr 101.6 mL/min/1.7 3m*2 06/04/2025 5:41 AM EDT [facility] Comment:Reported eGFRcr in m L/min/1.73m2 is based the CKD-EPI 2020 equation that does not use a race coefficient. Blood Venous blood specimen / Unknown Venipuncture / Unknown 06/04/2025 5:02 AM EDT 06/04/2025 5:11 AM EDT us Steve Veloz MD LAB BLOOD ORDERABLES Final R esult [facility] [address] [place] [address] * (ABNORMAL) CBC W/O Differential (06/04/2025 5:02 AM EDT) WBC Count 14.42(H) 3.70 - 10.30 10*3/uL LAB HEMATOLOGY METHOD 06/04/2025 5:22 AM EDT [facility] RBC Count 3.76(L) 3.90 - 5.20 10*6/uL LAB HEMATOLOGY METHOD 06/04/2025 5:22 AM EDT [facility] HGB 11.2 11.2 - 15.7 g/dL LAB HEMATOLOGY METHOD 06/04/2025 5:22 AM EDT [facility] HCT 34.6 34.0 - 45.0 % LAB HEMATOLOGY METHOD 06/04/2025 5:22 AM EDT [facility] Platelet Count 213 155 - 369 10*3/uL LAB HEMATOLOGY METHOD 06/04/2025 5:22 AM EDT [facility] MCV 92 79 - 98 fL LAB HEMATOLOGY METHOD 06/04/2025 5:22 AM EDT [facility] MCH 29.8 26.0 - 32.0 pg LAB HEMATOLOGY METHOD 06/04/2025 5:22 AM EDT [facility] MCHC 32.4 30.7 - 35.5 g/dL LAB HEMATOLOGY METHOD 06/04/2025 5:22 AM EDT [facility] RDW 13.4 11.5 - 14.5 % LAB HEMATOLOGY METHOD 06/04/2025 5:22 AM EDT [facility] MPV 12.2 8.8 - 12.5 fL LAB HEMATOLOGY METHOD 06/04/2025 5:22 AM EDT [facility] nRBC 0.0 <=0.0 per 100 WBCs LAB HEMATOLOGY METHOD 06/04/2025 5:22 AM EDT [facility] Blood Venous blood specimen / Unknown Venipuncture / Unknown 06/04/2025 5:02 AM EDT 06/04/2025 5:15 AM EDT us Steve Veloz MD LAB BLOOD ORDERABLES Final R esult [facility] [address] [place] [address] * (ABNORMAL) CBC W/O Differential (06/03/2025 6:14 AM EDT) WBC Count 16.61(H) 3.70 - 10.30 10*3/uL LAB HEMATOLOGY METHOD 06/03/2025 6:29 AM EDT [facility] RBC Count 3.58(L) 3.90 - 5.20 10*6/uL LAB HEMATOLOGY METHOD 06/03/2025 6:29 AM EDT [facility] HGB 11.1(L) 11.2 - 15.7 g/dL LAB HEMATOLOGY METHOD 06/03/2025 6:29 AM EDT [facility] HCT 33.0(L) 34.0 - 45.0 % LAB HEMATOLOGY METHOD 06/03/2025 6:29 AM EDT [facility] Platelet Count 182 155 - 369 10*3/uL LAB HEMATOLOGY METHOD 06/03/2025 6:29 AM EDT [facility] MCV 92 79 - 98 fL LAB HEMATOLOGY METHOD 06/03/2025 6:29 AM EDT [facility] MCH 31.0 26.0 - 32.0 pg LAB HEMATOLOGY METHOD 06/03/2025 6:29 AM EDT [facility] MCHC 33.6 30.7 - 35.5 g/dL LAB HEMATOLOGY METHOD 06/03/2025 6:29 AM EDT [facility] RDW 13.3 11.5 - 14.5 % LAB HEMATOLOGY METHOD 06/03/2025 6:29 AM EDT [facility] MPV 11.8 8.8 - 12.5 fL LAB HEMATOLOGY METHOD 06/03/2025 6:29 AM EDT [facility] nRBC 0.0 <=0.0 per 100 WBCs LAB HEMATOLOGY METHOD 06/03/2025 6:29 AM EDT [facility] Blood Venous blood specimen / Unknown Venipuncture / Unknown 06/03/2025 6:14 AM EDT 06/03/2025 6:19 AM EDT Steve Veloz MD LAB BLOOD ORDERABLES Final R esult [facility] [address] [place] [address] * Phosphorus, Plasma (06/03/2025 3:52 AM EDT) Phosphorus, Plasma 2.6 2.5 - 4.5 mg/dL 06/03/2025 5:14 AM EDT [facility] Blood Venous blood specimen / Unknown Venipuncture / Unknown 06/03/2025 3:52 AM EDT 06/03/2025 4:36 AM EDT Steve Veloz MD LAB BLOOD ORDERABLES Final R esult Performing Organization Address City/[facility]/ZIP Co de Phone Number [facility] [address] [place] [address] * (ABNORMAL) Magnesium, Plasma (06/03/2025 3:52 AM EDT) Magnesium, Plasma 1.7(L) 1.9 - 2.4 mg/dL 06/03/2025 5:14 AM EDT [facility] Blood Venous blood specimen / Unknown Venipuncture / Unknown 06/03/2025 3:52 AM EDT 06/03/2025 4:36 AM EDT Steve Veloz MD LAB BLOOD ORDERABLES Final R esult [facility] [address] [place] [address] * (ABNORMAL) Comprehensive Metabolic Panel, Plasma (06/03/2025 3:52 AM EDT) Glucose, Plasma 100(H) 74 - 99 mg/dL 06/03/2025 5:14 AM EDT [facility] BUN, Plasma 7(L) 8 - 23 mg/dL 06/03/2025 5:14 AM EDT [facility] Creatinine, Plasma 0.40(L) 0.60 - 1.10 mg/dL 06/03/2025 5:14 AM EDT [facility] BUN/Creatinine Ratio 18 06/03/2025 5:14 AM EDT [facility] Sodium, Plasma 140 136 - 145 mmol/L 06/03/2025 5:14 AM EDT [facility] Potassium, Plasma 3.3(L) 3.6 - 4.9 mmol/L 06/03/2025 5:14 AM EDT [facility] Chloride, Plasma 107 97 - 107 mmol/L 06/03/2025 5:14 AM EDT [facility] CO2, Plasma 21(L) 22 - 29 mmol/L 06/03/2025 5:14 AM EDT [facility] Anion Gap 12 6 - 16 mmol/L 06/03/2025 5:14 AM EDT [facility] Total Calcium, Plasma 7.9(L) 8.9 - 10.2 mg/dL 06/03/2025 5:14 AM EDT [facility] Total Protein 4.8(L) 6.3 - 7.9 g/dL 06/03/2025 5:14 AM EDT [facility] Albumin, Plasma 2.5(L) 3.5 - 5.2 g/dL 06/03/2025 5:14 AM EDT [facility] AST, Plasma 68(H) 10 - 35 U/L 06/03/2025 5:14 AM EDT [facility] Comment:Hemolyzed, result ma y be falsely increased. ALT, Plasma 110(H) 10 - 35 U/L 06/03/2025 5:14 AM EDT [facility] Alkaline Phosphatase, Plasma 110 46 - 142 U/L 06/03/2025 5:14 AM EDT [facility] Total Bilirubin, Plasma 0.5 0.2 - 1.1 mg/dL 06/03/2025 5:14 AM EDT [facility] eGFRcr 103.4 mL/min/1.7 3m*2 06/03/2025 5:14 AM EDT [facility] Comment:Reported eGFRcr in m L/min/1.73m2 is based the CKD-EPI 2020 equation that does not use a race coefficient. Blood Venous blood specimen / Unknown Venipuncture / Unknown 06/03/2025 3:52 AM EDT 06/03/2025 4:36 AM EDT Steve Veloz MD LAB BLOOD ORDERABLES Final R esult Performing Organization Address City/[facility]/ZIP Co de Phone Number [facility] [address] [place] [address] * (ABNORMAL) Phosphorus, Plasma (06/02/2025 2:13 AM EDT) Phosphorus, Plasma 2.0(L) 2.5 - 4.5 mg/dL 06/02/2025 2:49 AM EDT [facility] Blood Venous blood specimen / Unknown Venipuncture / Unknown 06/02/2025 2:13 AM EDT 06/02/2025 2:19 AM EDT Steve Veloz MD LAB BLOOD ORDERABLES Final R esult [facility] [address] [place] [address] * (ABNORMAL) Magnesium, Plasma (06/02/2025 2:13 AM EDT) Magnesium, Plasma 1.8(L) 1.9 - 2.4 mg/dL 06/02/2025 2:49 AM EDT [facility] Blood Venous blood specimen / Unknown Venipuncture / Unknown 06/02/2025 2:13 AM EDT 06/02/2025 2:19 AM EDT us Steve Veloz MD LAB BLOOD ORDERABLES Final R esult [facility] [address] [place] [address] * (ABNORMAL) Comprehensive Metabolic Panel, Plasma (06/02/2025 2:13 AM EDT) Glucose, Plasma 131(H) 74 - 99 mg/dL 06/02/2025 2:49 AM EDT [facility] BUN, Plasma 9 8 - 23 mg/dL 06/02/2025 2:49 AM EDT [facility] Creatinine, Plasma 0.49(L) 0.60 - 1.10 mg/dL 06/02/2025 2:49 AM EDT [facility] BUN/Creatinine Ratio 18 06/02/2025 2:49 AM EDT [facility] Sodium, Plasma 138 136 - 145 mmol/L 06/02/2025 2:49 AM EDT [facility] Potassium, Plasma 3.8 3.6 - 4.9 mmol/L 06/02/2025 2:49 AM EDT [facility] Chloride, Plasma 105 97 - 107 mmol/L 06/02/2025 2:49 AM EDT [facility] CO2, Plasma 21(L) 22 - 29 mmol/L 06/02/2025 2:49 AM EDT [facility] Anion Gap 12 6 - 16 mmol/L 06/02/2025 2:49 AM EDT [facility] Total Calcium, Plasma 8.2(L) 8.9 - 10.2 mg/dL 06/02/2025 2:49 AM EDT [facility] Total Protein 5.3(L) 6.3 - 7.9 g/dL 06/02/2025 2:49 AM EDT [facility] Albumin, Plasma 2.9(L) 3.5 - 5.2 g/dL 06/02/2025 2:49 AM EDT [facility] AST, Plasma 176(H) 10 - 35 U/L 06/02/2025 2:49 AM EDT [facility] Comment:Hemolyzed, result ma y be falsely increased. ALT, Plasma 169(H) 10 - 35 U/L 06/02/2025 2:49 AM EDT [facility] Alkaline Phosphatase, Plasma 102 46 - 142 U/L 06/02/2025 2:49 AM EDT [facility] Total Bilirubin, Plasma 0.5 0.2 - 1.1 mg/dL 06/02/2025 2:49 AM EDT [facility] eGFRcr 98.4 mL/min/1.7 3m*2 06/02/2025 2:49 AM EDT [facility] Comment:Reported eGFRcr in m L/min/1.73m2 is based the CKD-EPI 2020 equation that does not use a race coefficient. Blood Venous blood specimen / Unknown Venipuncture / Unknown 06/02/2025 2:13 AM EDT 06/02/2025 2:19 AM EDT us Steve Veloz MD LAB BLOOD ORDERABLES Final R esult [facility] [address] [place] [address] * (ABNORMAL) CBC W/O Differential (06/02/2025 2:13 AM EDT) WBC Count 19.64(H) 3.70 - 10.30 10*3/uL LAB HEMATOLOGY METHOD 06/02/2025 2:27 AM EDT [facility] RBC Count 3.72(L) 3.90 - 5.20 10*6/uL LAB HEMATOLOGY METHOD 06/02/2025 2:27 AM EDT [facility] HGB 11.5 11.2 - 15.7 g/dL LAB HEMATOLOGY METHOD 06/02/2025 2:27 AM EDT [facility] HCT 34.1 34.0 - 45.0 % LAB HEMATOLOGY METHOD 06/02/2025 2:27 AM EDT [facility] Platelet Count 211 155 - 369 10*3/uL LAB HEMATOLOGY METHOD 06/02/2025 2:27 AM EDT [facility] MCV 92 79 - 98 fL LAB HEMATOLOGY METHOD 06/02/2025 2:27 AM EDT [facility] MCH 30.9 26.0 - 32.0 pg LAB HEMATOLOGY METHOD 06/02/2025 2:27 AM EDT [facility] MCHC 33.7 30.7 - 35.5 g/dL LAB HEMATOLOGY METHOD 06/02/2025 2:27 AM EDT [facility] RDW 13.5 11.5 - 14.5 % LAB HEMATOLOGY METHOD 06/02/2025 2:27 AM EDT [facility] MPV 11.7 8.8 - 12.5 fL LAB HEMATOLOGY METHOD 06/02/2025 2:27 AM EDT [facility] nRBC 0.0 <=0.0 per 100 WBCs LAB HEMATOLOGY METHOD 06/02/2025 2:27 AM EDT [facility] Blood Venous blood specimen / Unknown Venipuncture / Unknown 06/02/2025 2:13 AM EDT 06/02/2025 2:19 AM EDT Steve Veloz MD LAB BLOOD ORDERABLES Final R esult [facility] [address] [place] [address] * Phosphorus, Plasma (06/01/2025 9:25 AM EDT) Phosphorus, Plasma 3.3 2.5 - 4.5 mg/dL 06/01/2025 10:09 AM EDT [facility] Blood Venous blood specimen / Unknown Venipuncture / Unknown 06/01/2025 9:25 AM EDT 06/01/2025 9:39 AM EDT us Steve Veloz MD LAB BLOOD ORDERABLES Final R esult [facility] [address] [place] [address] * Magnesium, Plasma (06/01/2025 9:25 AM EDT) Magnesium, Plasma 2.4 1.9 - 2.4 mg/dL 06/01/2025 10:09 AM EDT [facility] Blood Venous blood specimen / Unknown Venipuncture / Unknown 06/01/2025 9:25 AM EDT 06/01/2025 9:39 AM EDT us Steve Veloz MD LAB BLOOD ORDERABLES Final R esult [facility] [address] [place] [address] * (ABNORMAL) Comprehensive Metabolic Panel, Plasma (06/01/2025 9:25 AM EDT) Glucose, Plasma 170(H) 74 - 99 mg/dL 06/01/2025 10:09 AM EDT [facility] BUN, Plasma 9 8 - 23 mg/dL 06/01/2025 10:09 AM EDT [facility] Creatinine, Plasma 0.56(L) 0.60 - 1.10 mg/dL 06/01/2025 10:09 AM EDT [facility] BUN/Creatinine Ratio 16 06/01/2025 10:09 AM EDT [facility] Sodium, Plasma 139 136 - 145 mmol/L 06/01/2025 10:09 AM EDT [facility] Potassium, Plasma 4.4 3.6 - 4.9 mmol/L 06/01/2025 10:09 AM EDT [facility] Chloride, Plasma 107 97 - 107 mmol/L 06/01/2025 10:09 AM EDT [facility] CO2, Plasma 21(L) 22 - 29 mmol/L 06/01/2025 10:09 AM EDT [facility] Anion Gap 11 6 - 16 mmol/L 06/01/2025 10:09 AM EDT [facility] Total Calcium, Plasma 8.7(L) 8.9 - 10.2 mg/dL 06/01/2025 10:09 AM EDT [facility] Total Protein 5.8(L) 6.3 - 7.9 g/dL 06/01/2025 10:09 AM EDT [facility] Albumin, Plasma 3.2(L) 3.5 - 5.2 g/dL 06/01/2025 10:09 AM EDT [facility] AST, Plasma 224(H) 10 - 35 U/L 06/01/2025 10:09 AM EDT [facility] Comment:Hemolyzed, result ma y be falsely increased. ALT, Plasma 166(H) 10 - 35 U/L 06/01/2025 10:09 AM EDT [facility] Alkaline Phosphatase, Plasma 99 46 - 142 U/L 06/01/2025 10:09 AM EDT [facility] Total Bilirubin, Plasma 0.4 0.2 - 1.1 mg/dL 06/01/2025 10:09 AM EDT [facility] eGFRcr 95.3 mL/min/1.7 3m*2 06/01/2025 10:09 AM EDT [facility] Comment:Reported eGFRcr in m L/min/1.73m2 is based the CKD-EPI 2020 equation that does not use a race coefficient. Blood Venous blood specimen / Unknown Venipuncture / Unknown 06/01/2025 9:25 AM EDT 06/01/2025 9:39 AM EDT us Steve Veloz MD LAB BLOOD ORDERABLES Final R esult [facility] [address] [place] [address] * (ABNORMAL) CBC W/O Differential (06/01/2025 9:25 AM EDT) WBC Count 24.48(H) 3.70 - 10.30 10*3/uL LAB HEMATOLOGY METHOD 06/01/2025 9:50 AM EDT [facility] RBC Count 4.19 3.90 - 5.20 10*6/uL LAB HEMATOLOGY METHOD 06/01/2025 9:50 AM EDT [facility] HGB 12.7 11.2 - 15.7 g/dL LAB HEMATOLOGY METHOD 06/01/2025 9:50 AM EDT [facility] HCT 38.2 34.0 - 45.0 % LAB HEMATOLOGY METHOD 06/01/2025 9:50 AM EDT [facility] Platelet Count 256 155 - 369 10*3/uL LAB HEMATOLOGY METHOD 06/01/2025 9:50 AM EDT [facility] MCV 91 79 - 98 fL LAB HEMATOLOGY METHOD 06/01/2025 9:50 AM EDT [facility] MCH 30.3 26.0 - 32.0 pg LAB HEMATOLOGY METHOD 06/01/2025 9:50 AM EDT [facility] MCHC 33.2 30.7 - 35.5 g/dL LAB HEMATOLOGY METHOD 06/01/2025 9:50 AM EDT [facility] RDW 13.2 11.5 - 14.5 % LAB HEMATOLOGY METHOD 06/01/2025 9:50 AM EDT [facility] MPV 11.7 8.8 - 12.5 fL LAB HEMATOLOGY METHOD 06/01/2025 9:50 AM EDT [facility] nRBC 0.0 <=0.0 per 100 WBCs LAB HEMATOLOGY METHOD 06/01/2025 9:50 AM EDT [facility] Blood Venous blood specimen / Unknown Venipuncture / Unknown 06/01/2025 9:25 AM EDT 06/01/2025 9:43 AM EDT us Steve Veloz MD LAB BLOOD ORDERABLES Final R esult [facility] [address] [place] [address] * Phosphorus, Plasma (05/31/2025 5:04 PM EDT) Phosphorus, Plasma 3.2 2.5 - 4.5 mg/dL 05/31/2025 5:41 PM EDT [facility] Blood Venous blood specimen / Unknown Venipuncture / Unknown 05/31/2025 5:04 PM EDT 05/31/2025 5:12 PM EDT us Steve Veloz MD LAB BLOOD ORDERABLES Final R esult [facility] [address] [place] [address] * (ABNORMAL) Magnesium, Plasma (05/31/2025 5:04 PM EDT) Magnesium, Plasma 1.4(L) 1.9 - 2.4 mg/dL 05/31/2025 5:41 PM EDT [facility] Blood Venous blood specimen / Unknown Venipuncture / Unknown 05/31/2025 5:04 PM EDT 05/31/2025 5:12 PM EDT us Steve Veloz MD LAB BLOOD ORDERABLES Final R esult [facility] [address] [place] [address] * (ABNORMAL) Comprehensive Metabolic Panel, Plasma (05/31/2025 5:04 PM EDT) Glucose, Plasma 172(H) 74 - 99 mg/dL 05/31/2025 5:41 PM EDT [facility] BUN, Plasma 8 8 - 23 mg/dL 05/31/2025 5:41 PM EDT [facility] Creatinine, Plasma 0.44(L) 0.60 - 1.10 mg/dL 05/31/2025 5:41 PM EDT [facility] BUN/Creatinine Ratio 18 05/31/2025 5:41 PM EDT [facility] Sodium, Plasma 142 136 - 145 mmol/L 05/31/2025 5:41 PM EDT [facility] Potassium, Plasma 3.4(L) 3.6 - 4.9 mmol/L 05/31/2025 5:41 PM EDT [facility] Chloride, Plasma 109(H) 97 - 107 mmol/L 05/31/2025 5:41 PM EDT [facility] CO2, Plasma 20(L) 22 - 29 mmol/L 05/31/2025 5:41 PM EDT [facility] Anion Gap 13 6 - 16 mmol/L 05/31/2025 5:41 PM EDT [facility] Total Calcium, Plasma 8.0(L) 8.9 - 10.2 mg/dL 05/31/2025 5:41 PM EDT [facility] Total Protein 5.6(L) 6.3 - 7.9 g/dL 05/31/2025 5:41 PM EDT [facility] Albumin, Plasma 3.4(L) 3.5 - 5.2 g/dL 05/31/2025 5:41 PM EDT [facility] AST, Plasma 183(H) 10 - 35 U/L 05/31/2025 5:41 PM EDT [facility] ALT, Plasma 93(H) 10 - 35 U/L 05/31/2025 5:41 PM EDT [facility] Alkaline Phosphatase, Plasma 98 46 - 142 U/L 05/31/2025 5:41 PM EDT [facility] Total Bilirubin, Plasma 0.5 0.2 - 1.1 mg/dL 05/31/2025 5:41 PM EDT [facility] eGFRcr 101.0 mL/min/1.7 3m*2 05/31/2025 5:41 PM EDT [facility] Comment:Reported eGFRcr in m L/min/1.73m2 is based the CKD-EPI 2020 equation that does not use a race coefficient. Blood Venous blood specimen / Unknown Venipuncture / Unknown 05/31/2025 5:04 PM EDT 05/31/2025 5:12 PM EDT us Steve Veloz MD LAB BLOOD ORDERABLES Final R esult [facility] [address] [place] [address] * (ABNORMAL) CBC and Differential (05/31/2025 5:04 PM EDT) WBC Count 22.38(H) 3.70 - 10.30 10*3/uL LAB HEMATOLOGY METHOD 05/31/2025 5:22 PM EDT [facility] RBC Count 4.09 3.90 - 5.20 10*6/uL LAB HEMATOLOGY METHOD 05/31/2025 5:22 PM EDT [facility] HGB 12.4 11.2 - 15.7 g/dL LAB HEMATOLOGY METHOD 05/31/2025 5:22 PM EDT [facility] HCT 37.6 34.0 - 45.0 % LAB HEMATOLOGY METHOD 05/31/2025 5:22 PM EDT [facility] Platelet Count 267 155 - 369 10*3/uL LAB HEMATOLOGY METHOD 05/31/2025 5:22 PM EDT [facility] MCV 92 79 - 98 fL LAB HEMATOLOGY METHOD 05/31/2025 5:22 PM EDT [facility] MCH 30.3 26.0 - 32.0 pg LAB HEMATOLOGY METHOD 05/31/2025 5:22 PM EDT [facility] MCHC 33.0 30.7 - 35.5 g/dL LAB HEMATOLOGY METHOD 05/31/2025 5:22 PM EDT [facility] RDW 13.0 11.5 - 14.5 % LAB HEMATOLOGY METHOD 05/31/2025 5:22 PM EDT [facility] MPV 11.6 8.8 - 12.5 fL LAB HEMATOLOGY METHOD 05/31/2025 5:22 PM EDT [facility] nRBC 0.0 <=0.0 per 100 WBCs LAB HEMATOLOGY METHOD 05/31/2025 5:22 PM EDT [facility] Differential Type Automated LAB HEMATOLOGY METHOD 05/31/2025 5:22 PM EDT [facility] Neutrophils % 89 % LAB HEMATOLOGY METHOD 05/31/2025 5:22 PM EDT [facility] Lymphocytes % 8 % LAB HEMATOLOGY METHOD 05/31/2025 5:22 PM EDT [facility] Monocytes % 2 % LAB HEMATOLOGY METHOD 05/31/2025 5:22 PM EDT [facility] Eosinophils % 0 % LAB HEMATOLOGY METHOD 05/31/2025 5:22 PM EDT [facility] Basophils % 0 % LAB HEMATOLOGY METHOD 05/31/2025 5:22 PM EDT [facility] Immature Granulocytes % 1 % LAB HEMATOLOGY METHOD 05/31/2025 5:22 PM EDT [facility] Neutrophils Absolute 19.82(H) 1.60 - 6.10 10*3/uL LAB HEMATOLOGY METHOD 05/31/2025 5:22 PM EDT [facility] Lymphocytes Absolute 1.84 1.20 - 3.90 10*3/uL LAB HEMATOLOGY METHOD 05/31/2025 5:22 PM EDT [facility] Monocytes Absolute 0.36 0.30 - 0.90 10*3/uL LAB HEMATOLOGY METHOD 05/31/2025 5:22 PM EDT [facility] Eosinophils Absolute 0.08 0.00 - 0.50 10*3/uL LAB HEMATOLOGY METHOD 05/31/2025 5:22 PM EDT [facility] Basophils Absolute 0.09 0.00 - 0.10 10*3/uL LAB HEMATOLOGY METHOD 05/31/2025 5:22 PM EDT [facility] Immature Granulocytes Absolute 0.19(H) 0.00 - 0.06 10*3/uL LAB HEMATOLOGY METHOD 05/31/2025 5:22 PM EDT [facility] Blood Venous blood specimen / Unknown Venipuncture / Unknown 05/31/2025 5:04 PM EDT 05/31/2025 5:13 PM EDT Narrative [facility] - 05/31/2025 5:22 PM EDT Therapeutic decision making should be based on absolute values, rather than percentages. us Steve Veloz MD LAB BLOOD ORDERABLES Final R esult [facility] [address] [place] [address] * (ABNORMAL) Blood gas panel, arterial (05/31/2025 5:04 PM EDT) pH, Arterial 7.35 7.31 - 7.42 LAB HEMATOLOGY METHOD 05/31/2025 5:12 PM EDT [facility] pCO2, Arterial 40 35 - 48 mmHg LAB HEMATOLOGY METHOD 05/31/2025 5:12 PM EDT [facility] pO2, Arterial 79 >70 mmHg LAB HEMATOLOGY METHOD 05/31/2025 5:12 PM EDT [facility] SO2, Measured, Arterial 96 94 - 98 % LAB HEMATOLOGY METHOD 05/31/2025 5:12 PM EDT [facility] Base Excess, Arterial -3.1(L) -2.0 - 3.0 mmol/L LAB HEMATOLOGY METHOD 05/31/2025 5:12 PM EDT [facility] Bicarbonate, Calculated, Arterial 22 22 - 26 mmol/L LAB HEMATOLOGY METHOD 05/31/2025 5:12 PM EDT [facility] Hematocrit, Whole Blood 37.7 34.0 - 45.0 % LAB HEMATOLOGY METHOD 05/31/2025 5:12 PM EDT [facility] Sodium, Whole Blood 142 136 - 145 mmol/L LAB HEMATOLOGY METHOD 05/31/2025 5:12 PM EDT [facility] Potassium, Whole Blood 3.2(L) 3.6 - 4.9 mmol/L LAB HEMATOLOGY METHOD 05/31/2025 5:12 PM EDT [facility] Chloride, Whole Blood 110(H) 97 - 107 mmol/L LAB HEMATOLOGY METHOD 05/31/2025 5:12 PM EDT [facility] Glucose, Whole Blood 166(H) 74 - 99 mg/dL LAB HEMATOLOGY METHOD 05/31/2025 5:12 PM EDT [facility] Ionized Calcium, Whole Blood 4.6 4.6 - 5.1 mg/dL LAB HEMATOLOGY METHOD 05/31/2025 5:12 PM EDT [facility] Lactate, Arterial, Whole Blood 0.7 0.5 - 1.6 mmol/L LAB HEMATOLOGY METHOD 05/31/2025 5:12 PM EDT [facility] Blood Arterial blood specimen / Unknown Arterial Puncture / Unknown 05/31/2025 5:04 PM EDT 05/31/2025 5:11 PM EDT us Steve Veloz MD LAB BLOOD ORDERABLES Final R esult [facility] [address] [place] [address] * Surgical Pathology Exam (05/31/2025 2:44 PM EDT) Case Report Surgical Pathology Case: [id number] Authorizing Provider: Steve Veloz MD Collected: 05/31/2025 1444 Ordering Location: [facility] A OPERATING ROOM Received: 05/31/2025 1449 Pathologist: Elaina Katz MD Intraop: Bel Lira MD Specimens: A) - Other (specify site), dariana-hepatic nodule B) - Lymph Node (specify site):, hepatic artery lymph nodes C) - Other (specify site), central portal lymph node D) - Lymph Node (specify site):, deonna caval lymph node E) - Other (specify site), cystic duct margin - stitch burgos true margin F) - Lymph Node (specify site):, left portal lymph nodes G) - Liver, segment 4B/5 partial hepatectomy 06/03/2025 4:37 PM EDT [facility] Final Diagnosis A. DARIANA-HEPATIC NODULE, EXCISION: - GALLSTONE WITH ASSOCIATED FIBROTIC STROMA, FAT NECROSIS, AND CHRONIC INFLAMMATION. - NEGATIVE FOR MALIGNANCY. B. LYMPH NODES, HEPATIC ARTERY, DISSECTION: - FIVE LYMPH NODES NEGATIVE FOR MALIGNANCY, (0/5). C. CENTRAL PORTAL LYMPH NODE, EXCISION: - BENIGN ADIPOSE TISSUE. NO LYMPH NODE IDENTIFIED. D. LYMPH NODES, PORTACAVAL, DISSECTION: - TWO LYMPH NODES NEGATIVE FOR MALIGNANCY, (0/2). E. CYSTIC DUCT MARGIN, EXCISION: - NEGATIVE FOR MALIGNANCY. F. LYMPH NODE, LEFT PORTAL, DISSECTION: - ONE LYMPH NODE NEGATIVE FOR MALIGNANCY, (0/1). G. LIVER, SEGMENT 4B/5, PARTIAL HEPATECTOMY: - CHANGES CONSISTENT WITH PRIOR PROCEDURE INCLUDING FIBROSIS AND GIANT CELL REACTION. - NEGATIVE FOR MALIGNANCY. - LIVER WITH MILD STEATOSIS. 06/03/2025 4:37 PM EDT [facility] at 1637 EDT Comment:This is an appended report. These results have been appended to a previously preliminary verified report. 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 These results have been appended to a previously preliminary verified report. Intraoperative Consultation A. DARIANA-HEPATIC NODULE DARIANA-HEPATIC NODULE FOR FROZEN: SINGLE LARGE CALCULUS, NEGATIVE FOR TUMOR. TISSUE SURROUNDING STONE IS ABRADED AND CHRONICALLY INFLAMED. 06/03/2025 4:37 PM EDT [facility] Microscopic Description The permanent sections support the frozen section diagnosis. 06/03/2025 4:37 PM EDT [facility] Comment:This is an appended report. These results have been appended to a previously preliminary verified report. Gross Description A. DARIANA-HEPATIC NODULE The specimen is received fresh for frozen section, labeled p erihepatic nodule , and consists of a 4.8 x 3.6 x 1.8 cm aggregate of meyer-yellow lobulated fibroadipose tissue with a 3.4 cm nodule. Sectioning the nodule reveals a smooth lined cyst. Within the cyst, is a yellow-brown firm crystalline structure with a similar appearance of the gallstone. A portion of the line is submitted for frozen section and remainder of the block is submitted in cassette A1, and the remainder of the cyst lining is submitted in cassettes A2-A4. Cold Time: 53m KOFI Harris (ASCP) B. HEPATIC ARTERY LYMPH NODES The specimen is received in formalin, labeled h epatic artery lymph nodes , and consists of a 4.6 x 3.1 x 0.6 cm aggregate of meyer-yellow lobulated fibroadipose tissue. Five lymph nodes that range from 0.6-1.7 cm in greatest dimension are identified. Lymph nodes are entirely submitted as follows: B1: One lymph node, bisected B2: One lymph node, bisected B3: One lymph node, bisected B4: One lymph node, bisected B5-B6: Largest lymph node, serially sectioned Cold Time: 1m KOFI Harris (ASCP) C. CENTRAL PORTAL LYMPH NODE The specimen is received fresh and placed in formalin, labeled c entral portal lymph nodes , and consists of a 0.7 x 0.6 x 0.6 cm possible lymph node. The lymph node is bisected and entirely submitted in cassettes C1. Cold Time: 1h 43m KOFI Harris (ASCP) D. DEONNA CAVAL LYMPH NODE The specimen is received fresh and placed specimen is received fresh and placed in formalin, labeled p ortal caval lymph node , and consists of a 3.8 x 3.3 x 0.6 cm aggregate of meyer-yellow lobulated fibroadipose tissue two lymph nodes that range from 0.6-1.2 cm in greatest dimension are identified. The lymph nodes are entirely submitted as follows: D1: One lymph node, serially sectioned D2: One intact lymph node Cold Time: 1h 31m KOFI Harris (ASCP) E. CYSTIC DUCT MARGIN - STITCH BURGOS TRUE MARGIN The specimen is received fresh and placed in formalin, labeled c ystic duct margin stitch burgos true margin , and consists of a 1.8 x 1.1 x 0.3 cm portion of brown-nava fibromembranous tissue. Specimen is entirely submitted en face in cassette E1. Cold Time: 1h 26m KOFI Harris (ASCP) F. LEFT PORTAL LYMPH NODES The specimen is received fresh and placed in formalin, labeled l eft portal lymph nodes , and consists of a 3.1 x 2.2 x 1.1 cm aggregate of meyer-yellow lobulated fibroadipose tissue. A 2.1 cm lymph node is identified. The lymph node is serially sectioned and entirely submitted in cassettes F1-F3. Cold Time: 1h 17m KOFI Harris (ASCP) G. SEGMENT 4B/5 PARTIAL HEPATECTOMY The specimen is received fresh and placed in formalin, labeled s egment 4B/five partial hepatectomy , and consists of a 20.0 g, 4.2 x 3.8 x 1.7 cm partial hepatectomy. The external surface is brown-red and fibrous. The resection margin is inked blue. Sectioning reveals a meyer-brown slightly fibrotic cut surface. A discrete mass is not identified. Facility Practice Specialist sections are submitted in cassettes G1-G3. Cold Time: 54m KOFI Harris (ASCP) 06/03/2025 4:37 PM EDT [facility] Comment:This is an appended report. These results have been appended to a previously preliminary verified report. 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] Tissue specimen (specimen) Structure of lymph node / Unknown 05/31/2025 3:23 PM EDT 05/31/2025 4:54 PM EDT Comment:Pre-op diagnosis: 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] Tissue specimen (specimen) Topography unknown / Unknown 05/31/2025 3:28 PM EDT 05/31/2025 4:54 PM EDT Comment:Pre-op diagnosis: 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] Tissue specimen (specimen) Structure of lymph node / Unknown 05/31/2025 3:37 PM EDT 05/31/2025 4:54 PM EDT Comment:Pre-op diagnosis: 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] Tissue specimen (specimen) Liver structure / Unknown 05/31/2025 4:00 PM EDT 05/31/2025 4:54 PM EDT Comment:Pre-op diagnosis: 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] us Steve Veloz MD LAB PATHOLOGY ORDERABLES Fin al Result Performing Organization Address City/[facility]/ZIP Co de Phone Number [facility] [address] [place] [address] * Type and screen (05/31/2025 10:27 AM EDT) ABO/Rh B Positive 05/31/2025 10:07 AM EDT BLOOD BANK Antibody Screen Negative 05/31/2025 10:07 AM EDT BLOOD [facility]ANK Specimen Expiration 06/03/2025 23:59 05/31/2025 10:07 AM EDT BLOOD BANK Blood Venous blood specimen / Unknown Venipuncture / Unknown 05/31/2025 10:27 AM EDT 05/31/2025 10:32 AM EDT us Matteo Quiros MD LAB BLOOD BANK TEST ORDERABLE S Final Result Performing Organization Address [facility] de Phone Number BLOOD BANK [address] [place] [address] documented in this encounter Visit Diagnoses Diagnosis Adenocarcinoma of gallbladder (CMS/HCC)- Primary Malignant neoplasm of gallbladder Post-op pain Other acute postoperative pain Electrolyte abnormality Electrolyte and fluid disorders not elsewhere classified Leukocytosis Leukocytosis, unspecified Transaminitis Nonspecific elevation of levels of transaminase or lactic acid dehydrogenase (LDH) documented in this encounter Admitting Diagnoses Diagnosis Adenocarcinoma of gallbladder (CMS/HCC) Malignant neoplasm of gallbladder documented in this encounter Administered Medications Inactive Administered Medications - up to 3 most recent administrations Medication Order MAR Action Action Date Dose Rate Site albuterol (Proventil) (2.5 MG/3ML) 0.083% nebulizer solution 2.5 mg 2.5 mg, Nebulization, Every 6 hours PRN, Starting on Sat06/03/25 at 0652, Until Sat06/08/25 at 1627, Routine, shortness of breath aspirin chewable tablet 81 mg 81 mg, Oral, Daily, First dose on Sat06/07/25 at 0930, Until Discontinued Given 06/08/2025 8:32 AM EDT 81 mg Given 06/07/2025 10:07 AM EDT 81 mg cefOXitin (Mefoxin) 2 g in sodium chloride 0.9% 100 mL IVPB (vial adapter required) 2 g, Intravenous, Every 6 hours, 4 doses, First dose on Sat05/31/25 at 2200, Last dose on Sat06/01/25 at 1600, Routine, Recovery(Phase II-Outpatient)/On Unit(Inpatient) New Bag 06/01/2025 3:36 PM EDT 2 g 220 mL/hr New Bag 06/01/2025 11:14 AM EDT 2 g 220 mL/hr New Bag 06/01/2025 4:09 AM EDT 2 g 220 mL/hr dextrose 5 % and lactated Ringer's infusion 42 mL/hr, Intravenous, Continuous, Starting on Sat05/31/25 at 1745, Until Sat06/04/25 at 1751, Routine Rate/Dose Verify 06/04/2025 12:00 PM EDT 42 mL/hr 42 mL/hr Rate/Dose Verify 06/04/2025 8:00 AM EDT 42 mL/hr 42 mL/h r Rate/Dose Change 06/03/2025 7:22 AM EDT 42 mL/hr 42 mL/h r diphenhydrAMINE-zinc acetate (Benadryl) cream 1 Application Topical, Daily PRN, Starting on Sat06/04/25 at 1026, Until Sat06/08/25 at 1627, Routine, itching Given 06/04/2025 1:04 PM EDT 1 Application enoxaparin (Lovenox) syringe 40 mg 40 mg, Subcutaneous, Daily, First dose on Sat06/07/25 at 2200, Until Discontinued, Routine Given 06/08/2025 8:31 AM EDT 40 mg Left Upper Arm (Back) Given 06/07/2025 10:36 PM EDT 40 mg L eft Upper Arm (Back) fentaNYL (Sublimaze) injection 50 mcg 50 mcg, Intravenous, Every 5 min PRN, 2 doses, Starting on Sat05/31/25 at 1621, Until Sat05/31/25 at 1817, Routine, Recovery (Phase I only), pain score of 5-8 out of 10 Given 05/31/2025 4:57 PM EDT 25 mcg heparin (porcine) injection 5,000 Units 5,000 Units, Subcutaneous, Once, 1 dose, On Sat05/31/25 at 1015, Routine, Holding - Preprocedure Given 05/31/2025 11:33 AM EDT 5,000 Units Right Lower Abdomen heparin (porcine) injection 5,000 Units 5,000 Units, Subcutaneous, Every 8 hours scheduled, First dose on Sat05/31/25 at 1800, Until Discontinued, Routine, Recovery(Phase II-Outpatient)/On Unit(Inpatient) Given 06/07/2025 1:03 PM EDT 5,000 Units Left Upper Arm (Back ) Given 06/07/2025 5:38 AM EDT 5,000 Units R ight Upper Arm (Back) Given 06/06/2025 8:33 PM EDT 5,000 Units L eft Lower Abdomen HYDROmorphone (Dilaudid) injection 0.25 mg 0.25 mg, Intravenous, Every 4 hours PRN, Starting on 06/06/25 at 1150, Until Tu06/08/25 at 1627, Routine, severe pain HYDROmorphone (Dilaudid) injection 0.5 mg 0.5 mg, Intravenous, Every 10 min PRN, 2 doses, Starting on Sat05/31/25 at 1621, Until Sat05/31/25 at 1817, Routine, Recovery (Phase I only), pain score of 9-10 out of 10 Given 05/31/2025 5:07 PM EDT 0.5 mg HYDROmorphone (PF) 10 mcg/mL + bupivacaine (PF) 1.25 mg/mL in 100 mL (PF) HOGSHEAD WEIGHER Continuous Rate: 2 mL/hr, PCEA Dose: 1 mL, PCEA Lockout: 10 Minutes, Nurse Loading Dose: Not Ordered, Epidural, Routine New Bag 06/05/2025 7:43 PM EDT Rate Change - Dual Sign 06/05/2025 1:23 PM EDT New Bag 06/04/2025 7:32 PM EDT hydromorphone 10 mcg/mL + bupivacaine 1.25 mg/mL clinician bolus dose 1-5 mL, Epidural, As needed, Starting on Sat05/31/25 at 1132, Until 06/06/25 at 1333, Routine, severe pain Bolus from Bag 06/01/2025 3:11 PM EDT 3 mL Bolus from Bag 06/01/2025 5:40 AM EDT 3 mL Bolus from Bag 05/31/2025 6:47 PM EDT 5 mL lactated Ringer's infusion 20 mL/hr, Intravenous, Once, 1 dose, On Sat05/31/25 at 1715, Routine Continued from OR 05/31/2025 5:00 PM EDT 20 mL/hr 20 mL/hr lidocaine (Lidoderm) 5 % patch 1 patch 1 patch, Apply externally, Every 24 hours, First dose on 06/06/25 at 1330, Until Discontinued, Administer over 12 Hours, Routine Medication Applied 06/08/2025 1:12 PM EDT 1 patch Other Medication Applied 06/07/2025 1:06 PM EDT 1 patch Other Medication Applied 06/06/2025 12:38 PM EDT 1 patch Back magnesium sulfate IVPB 2 g 2 g, Intravenous, Once, 1 dose, On Sat06/02/25 at 0630, Routine New Bag 06/02/2025 6:48 AM EDT 2 g 25 mL/hr magnesium sulfate IVPB 2 g 2 g, Intravenous, Once, 1 dose, On Pat 06/03/25 at 0700, Routine New Bag 06/03/2025 8:12 AM EDT 2 g 25 mL/hr magnesium sulfate IVPB 2 g 2 g, Intravenous, Once, 1 dose, On Sat06/04/25 at 0645, Routine New Bag 06/04/2025 6:11 AM EDT 2 g 25 mL/hr magnesium sulfate IVPB 2 g 2 g, Intravenous, Once, 1 dose, On 06/05/25 at 0515, Routine New Bag 06/05/2025 5:44 AM EDT 2 g 25 mL/hr magnesium sulfate IVPB 2 g 2 g, Intravenous, Once, 1 dose, On Sun 14/25 at 0800, Routine New Bag 06/06/2025 8:01 AM EDT 2 g 25 mL/hr magnesium sulfate IVPB 2 g 2 g, Intravenous, Once, 1 dose, On Sat06/07/25 at 0530, Routine New Bag 06/07/2025 5:38 AM EDT 2 g 25 mL/hr magnesium sulfate IVPB 2 g 2 g, Intravenous, Once, 1 dose, On Sat06/08/25 at 0415, Routine New Bag 06/08/2025 4:38 AM EDT 2 g 25 mL/hr magnesium sulfate IVPB 4 g 4 g, Intravenous, Once, 1 dose, On Sat05/31/25 at 2045, Routine, Recovery(Phase II-Outpatient)/On Unit(Inpatient) New 05/31/2025 9:33 PM EDT 4 g 25 mL/hr methocarbamol (Robaxin) injection 1,000 mg 1,000 mg, Intravenous, Every 8 hours, 9 doses, First dose on Sat05/31/25 at 1900, Last dose on Sat06/03/25 at 1100, Routine, Recovery(Phase II-Outpatient)/On Unit(Inpatient) Given 06/03/2025 11:16 AM EDT 1,000 mg Given 06/03/2025 3:40 AM EDT 1,000 mg Given 06/02/2025 6:46 PM EDT 1,000 mg methocarbamol (Robaxin) tablet 1,000 mg 1,000 mg, Oral, 4 times daily, First dose on Pat 06/03/25 at 1800, Until Discontinued, Routine Given 06/08/2025 8:32 AM EDT 1,000 mg Given 06/07/2025 10:36 PM EDT 1,000 mg Given 06/07/2025 5:07 PM EDT 1,000 mg metoclopramide (Reglan) injection 10 mg 10 mg, Intravenous, Every 6 hours, First dose on Sat05/31/25 at 1800, Until Discontinued, Routine, Recovery(Phase II-Outpatient)/On Unit(Inpatient) Given 06/01/2025 5:47 AM EDT 10 mg Given 05/31/2025 11:56 PM EDT 10 mg Given 05/31/2025 5:52 PM EDT 10 mg metoclopramide (Reglan) injection 10 mg 10 mg, Intravenous, Every 8 hours, First dose (after last modification) on Sat06/01/25 at 1400, Until Discontinued, Routine Given 06/07/2025 1:05 PM EDT 10 mg Given 06/07/2025 5:38 AM EDT 10 mg Given 06/06/2025 8:33 PM EDT 10 mg metoclopramide (Reglan) tablet 10 mg 10 mg, Oral, Every 8 hours, First dose on Sat06/07/25 at 2200, Until Discontinued, Routine Given 06/08/2025 4:39 AM EDT 10 mg Given 06/07/2025 10:36 PM EDT 10 mg mirabegron ER (Myrbetriq) tablet 50 mg 50 mg, Oral, Daily, First dose on Sat06/07/25 at 0930, Until Discontinued Given 06/08/2025 8:32 AM EDT 50 mg Given 06/07/2025 10:07 AM EDT 50 mg ondansetron (Zofran) 4 MG/5ML solution 4 mg 4 mg, Oral, Every 6 hours PRN, Starting on Sat05/31/25 at 1653, Until Sat06/08/25 at 1627, Routine, Recovery(Phase II-Outpatient)/On Unit(Inpatient), nausea, vomiting ondansetron (Zofran) injection 4 mg 4 mg, Intravenous, Every 6 hours PRN, Starting on Sat05/31/25 at 1653, Until Sat06/08/25 at 1627, Routine, Recovery(Phase II-Outpatient)/On Unit(Inpatient), vomiting, nausea ondansetron ODT (Zofran-ODT) disintegrating tablet 4 mg 4 mg, Oral, Every 6 hours PRN, Starting on Sat05/31/25 at 1653, Until Sat06/08/25 at 1627, Routine, Recovery(Phase II-Outpatient)/On Unit(Inpatient), nausea, vomiting oxyCODONE (Roxicodone) immediate release tablet 10 mg 10 mg, Oral, Every 4 hours PRN, Starting on Sat06/06/25 at 1150, Until Sat06/08/25 at 1627, Routine, severe pain oxyCODONE (Roxicodone) immediate release tablet 5 mg 5 mg, Oral, Every 4 hours PRN, Starting on Sat06/06/25 at 1150, Until Sat06/08/25 at 1627, Routine, moderate pain Given 06/08/2025 10:17 AM EDT 5 mg Given 06/08/2025 2:53 AM EDT 5 mg Given 06/07/2025 8:17 PM EDT 5 mg pantoprazole (Protonix) EC tablet 40 mg 40 mg, Oral, Daily, First dose on Sat06/04/25 at 0900, Until Discontinued, Routine Given 06/08/2025 8:32 AM EDT 40 mg Given 06/07/2025 8:13 AM EDT 40 mg Given 06/06/2025 9:08 AM EDT 40 mg pantoprazole (Protonix) injection 40 mg 40 mg, Intravenous, Daily, First dose on Sat05/31/25 at 1745, Until Discontinued, Routine, Recovery(Phase II-Outpatient)/On Unit(Inpatient) Given 06/03/2025 8:11 AM EDT 40 mg Given 06/02/2025 9:59 AM EDT 40 mg Given 06/01/2025 8:58 AM EDT 40 mg phosphorus (K Phos Neutral) tablet 1 tablet 1 tablet, Oral, Every 8 hours, 3 doses, First dose on Sat06/03/25 at 0700, Last dose on Sat06/03/25 at 2300, Routine Given 06/03/2025 10:05 PM EDT 1 tabl et Given 06/03/2025 2:24 PM EDT 1 tablet Given 06/03/2025 8:11 AM EDT 1 tablet phosphorus (K Phos Neutral) tablet 2 tablet 2 tablet, Oral, Every 8 hours, 3 doses, First dose on Sat06/02/25 at 0630, Last dose on Sat06/02/25 at 2230, Routine Given 06/02/2025 9:30 PM EDT 2 table ts Given 06/02/2025 1:32 PM EDT 2 tablets Given 06/02/2025 6:48 AM EDT 2 tablets polyethylene glycol (Miralax) packet 17 g 17 g, Oral, Daily, First dose on Sat06/04/25 at 0915, Until Discontinued, Routine Given 06/05/2025 8:03 AM EDT 17 g Given 06/04/2025 9:37 AM EDT 17 g potassium chloride CR (Klor-Con) ER tablet 40 mEq 40 mEq, Oral, Once, 1 dose, On Sat06/02/25 at 0630, Routine Given 06/02/2025 6:48 AM EDT 40 mEq potassium chloride CR (Klor-Con) ER tablet 40 mEq 40 mEq, Oral, Every 4 hours, 2 doses, First dose on Pat 06/03/25 at 0700, Last dose on Sat06/03/25 at 1100, Routine Given 06/03/2025 11:16 AM EDT 40 mEq Given 06/03/2025 8:11 AM EDT 40 mEq potassium chloride CR (Klor-Con) ER tablet 40 mEq 40 mEq, Oral, Once, 1 dose, On Sat06/04/25 at 0645, Routine Given 06/04/2025 6:11 AM EDT 40 mEq potassium chloride CR (Klor-Con) ER tablet 40 mEq 40 mEq, Oral, Once, 1 dose, On Sat06/07/25 at 0645, Routine Given 06/07/2025 8:13 AM EDT 40 mEq potassium chloride CR (Klor-Con) ER tablet 40 mEq 40 mEq, Oral, Once, 1 dose, On Sat06/08/25 at 0630, Routine Given 06/08/2025 8:32 AM EDT 40 mEq potassium chloride IVPB 10 mEq 10 mEq, Intravenous, Every 1 hour, 6 doses, First dose on Sat05/31/25 at 2045, Last dose on Sat06/01/25 at 0145, Routine, Recovery(Phase II-Outpatient)/On Unit(Inpatient)Indications:Hypokale naveen New Bag 06/01/2025 2:53 AM EDT 10 mEq 100 mL/hr New Bag 06/01/2025 1:49 AM EDT 10 mEq 100 mL/hr New Bag 06/01/2025 1:00 AM EDT 10 mEq 100 mL/hr potassium chloride IVPB 10 mEq 10 mEq, Intravenous, Every 1 hour, 4 doses, First dose on Sat06/06/25 at 0800, Last dose on Sat06/06/25 at 1100, RoutineIndications:Hypokalemia New Bag 06/06/2025 11:06 AM EDT 10 mEq 100 mL/hr New Bag 06/06/2025 10:00 AM EDT 10 mEq 100 mL/hr New Bag 06/06/2025 8:55 AM EDT 10 mEq 100 mL/hr Povidone-Iodine 5 % swab solution 1 Application Nasal, Once, 1 dose, On Sat05/31/25 at 1100, Routine Given 05/31/2025 10:22 AM EDT 1 Application rosuvastatin (Crestor) tablet 10 mg 10 mg, Oral, 3 times weekly (Once per day on Saturday), First dose on Sat06/07/25 at 0930, Until Discontinued Given 06/07/2025 10:07 AM EDT 10 mg documented in this encounter Active and Recently Administered Medications Times are shown in EDT. Scheduled Medication Order 06/06/2025 06/07/2025 06/08/2025 aspirin chewable tablet 81 mg 81 mg, Oral, Daily, First dose on Sat06/07/25 at 0930, Until Discontinued 1007 (Given - Provider: Christi Harper RN) 0832 (Given - Provider: Christi Harper RN) enoxaparin (Lovenox) syringe 40 mg 40 mg, Subcutaneous, Daily, First dose on Sat06/07/25 at 2200, Until Discontinued, Routine 2236 (Given - Provider: Lolita Cornelius RN) 0831 (Given - Provider: Christi Harper RN) heparin (porcine) injection 5,000 Units (CANCELED) 5,000 Units, Subcutaneous, Every 8 hours scheduled, First dose on Sat05/31/25 at 1800, Until Discontinued, Routine, Recovery(Phase II-Outpatient)/On Unit(Inpatient) 0602 (Given - Provider: Lolita Cornelius RN)0810 (Held by provider - Provider: Jarvis Pozo MD - Reason: Epidural Placement or Removal)1400 (Dose Auto Held - Provider: Jarvis Pozo MD)1654 (Unheld by provider - Provider: Jarvis Pozo MD)2033 (Given - Provider: Lolita Cornelius RN) 0538 (Given - Provider: Lolita Cornelius RN)1303 (Given - Provider: Christi Harper RN) lidocaine (Lidoderm) 5 % patch 1 patch 1 patch, Apply externally, Every 24 hours, First dose on Sat06/06/25 at 1330, Until Discontinued, Administer over 12 Hours, Routine 1238 (Medication Applied - Provider: Bonnie Schumacher RN)1800 (Medication Removed - Provider: Lolita Cornelius RN) 1306 (Medication Applied - Provider: Christi Harper RN) 0254 (Medication Removed - Provider: Lolita Cornelius RN)1312 (Medication Applied - Provider: Christi Harper RN)1427 (Due: Medication Removed - Provider: Automatic Discharge Provider - Comment: Time automatically adjusted from order being discontinued) magnesium sulfate IVPB 2 g (COMPLETED) 2 g, Intravenous, Once, 1 dose, On Sat06/06/25 at 0800, Routine 0801 (New Bag - Provider: Bonnie Schumacher RN) magnesium sulfate IVPB 2 g (COMPLETED) 2 g, Intravenous, Once, 1 dose, On Sat06/07/25 at 0530, Routine 0538 (New Bag - Provider: Lolita Cornelius RN) magnesium sulfate IVPB 2 g (COMPLETED) 2 g, Intravenous, Once, 1 dose, On Sat06/08/25 at 0415, Routine 0438 (New Bag - Provider: Lolita Cornelius RN) methocarbamol (Robaxin) tablet 1,000 mg 1,000 mg, Oral, 4 times daily, First dose on Sat06/03/25 at 1800, Until Discontinued, Routine 0908 (Given - Provider: Bonnie Schumacher RN)1434 (Given - Provider: Bonnie Schumacher RN)1805 (Given - Provider: Bonnie Schumacher RN)2032 (Given - Provider: Lolita Cornelius RN) 0813 (Given - Provider: Christi Harper RN)1306 (Given - Provider: Christi Harper, ELIEZER)1707 (Given - Provider: Christi Harper, ELIEZER)2236 (Given - Provider: Lolita Cornelius RN) 0832 (Given - Provider: Christi Harper RN)1400 (Canceled Entry - Provider: Automatic Discharge Provider - Comment: Automatically canceled at discontinue of medication order) metoclopramide (Reglan) injection 10 mg (CANCELED) 10 mg, Intravenous, Every 8 hours, First dose (after last modification) on Sat06/01/25 at 1400, Until Discontinued, Routine 0602 (Given - Provider: Lolita Cornelius RN)1434 (Given - Provider: Bonnie Schumacher RN)2033 (Given - Provider: Lolita Cornelius RN) 0538 (Given - Provider: Lolita Cornelius RN)1305 (Given - Provider: Christi Harper RN) metoclopramide (Reglan) tablet 10 mg 10 mg, Oral, Every 8 hours, First dose on Sat06/07/25 at 2200, Until Discontinued, Routine 2236 (Given - Provider: Lolita Cornelius RN) 0439 (Given - Provider: Lolita Cornelius RN)1400 (Canceled Entry - Provider: Automatic Discharge Provider - Comment: Automatically canceled at discontinue of medication order) mirabegron ER (Myrbetriq) tablet 50 mg 50 mg, Oral, Daily, First dose on Sat06/07/25 at 0930, Until Discontinued 1007 (Given - Provider: Christi Harper RN) 0832 (Given - Provider: Christi Harper RN) pantoprazole (Protonix) EC tablet 40 mg 40 mg, Oral, Daily, First dose on Sat06/04/25 at 0900, Until Discontinued, Routine 0908 (Given - Provider: Bonnie Schumacher RN) 0813 (Given - Provider: Christi Harper RN) 0832 (Given - Provider: Christi Harper RN) potassium chloride CR (Klor-Con) ER tablet 40 mEq (COMPLETED) 40 mEq, Oral, Once, 1 dose, On Sat06/07/25 at 0645, Routine 0813 (Given - Provider: Christi Harper RN) potassium chloride CR (Klor-Con) ER tablet 40 mEq (COMPLETED) 40 mEq, Oral, Once, 1 dose, On Sat06/08/25 at 0630, Routine 0832 (Given - Provid er: Christi Harper RN) potassium chloride IVPB 10 mEq (COMPLETED) 10 mEq, Intravenous, Every 1 hour, 4 doses, First dose on Sat06/06/25 at 0800, Last dose on Sat06/06/25 at 1100, Routine 0755 (New Bag - Provider: Bonnie Schumacher RN)0855 (New Bag - Provider: Bonnie Schumacher RN)1000 (New Bag - Provider: Bonnie Schumacher RN)1106 (New Bag - Provider: Bonnie Schumacher RN) rosuvastatin (Crestor) tablet 10 mg 10 mg, Oral, 3 times weekly (Once per day on Saturday), First dose on Sat06/07/25 at 0930, Until Discontinued 1007 (Given - Provider: Christi Harper RN) PRN Medication Order 06/06/2025 06/07/2025 06/08/2025 albuterol (Proventil) (2.5 MG/3ML) 0.083% nebulizer solution 2.5 mg 2.5 mg, Nebulization, Every 6 hours PRN, Starting on Sat06/03/25 at 0652, Until Sat06/08/25 at 1627, Routine, shortness of breath diphenhydrAMINE-zinc acetate (Benadryl) cream 1 Application Topical, Daily PRN, Starting on Sat06/04/25 at 1026, Until Sat06/08/25 at 1627, Routine, itching HYDROmorphone (Dilaudid) injection 0.25 mg 0.25 mg, Intravenous, Every 4 hours PRN, Starting on Sat06/06/25 at 1150, Until Sat06/08/25 at 1627, Routine, severe pain ondansetron (Zofran) 4 MG/5ML solution 4 mg(Linked Group 1) 4 mg, Oral, Every 6 hours PRN, Starting on Sat05/31/25 at 1653, Until Sat06/08/25 at 1627, Routine, Recovery(Phase II-Outpatient)/On Unit(Inpatient), nausea, vomiting ondansetron (Zofran) injection 4 mg(Linked Group 1) 4 mg, Intravenous, Every 6 hours PRN, Starting on Sat05/31/25 at 1653, Until Sat06/08/25 at 1627, Routine, Recovery(Phase II-Outpatient)/On Unit(Inpatient), vomiting, nausea ondansetron ODT (Zofran-ODT) disintegrating tablet 4 mg(Linked Group 1) 4 mg, Oral, Every 6 hours PRN, Starting on Sat05/31/25 at 1653, Until Sat06/08/25 at 1627, Routine, Recovery(Phase II-Outpatient)/On Unit(Inpatient), nausea, vomiting oxyCODONE (Roxicodone) immediate release tablet 10 mg(Linked Group 2) 10 mg, Oral, Every 4 hours PRN, Starting on Sat06/06/25 at 1150, Until Sat06/08/25 at 1627, Routine, severe pain 1943 (See Alternative - Provider: Lolita Cornelius RN) 2016 (See Alternative - Provider: Lolita Cornelius RN) 252 (See Alternative - Provider: Lolita Cornelius RN)1017 (See Alternative - Provider: Rishi Ramirez, ELIEZER) oxyCODONE (Roxicodone) immediate release tablet 5 mg(Linked Group 2) 5 mg, Oral, Every 4 hours PRN, Starting on 06/06/25 at 1150, Until Sat06/08/25 at 1627, Routine, moderate pain 1943 (Given - Provider: Lolita Cornelius RN) 2016 (Given - Provider: Lolita Cornelius RN) 252 (Given - Provider: Lolita Cornelius RN)1017 (Given - Provider: Rishi Ramirez RN) Linked Groups Order Group 1: ondansetron ODT (Zofran-ODT) disintegrating tablet 4 mgJump to med 4 mg, Oral, Every 6 hours PRN, Starting on 05/31/25 at 1653, Until Sat06/08/25 at 1627, Routine, Recovery(Phase II-Outpatient)/On Unit(Inpatient), nausea, vomiting Or ondansetron (Zofran) injection 4 mgJump to med 4 mg, Intravenous, Every 6 hours PRN, Starting on Sat05/31/25 at 1653, Until Sat06/08/25 at 1627, Routine, Recovery(Phase II-Outpatient)/On Unit(Inpatient), vomiting, nausea Or ondansetron (Zofran) 4 MG/5ML solution 4 mgJump to med 4 mg, Oral, Every 6 hours PRN, Starting on Sat05/31/25 at 1653, Until Sat06/08/25 at 1627, Routine, Recovery(Phase II-Outpatient)/On Unit(Inpatient), nausea, vomiting Group 2: oxyCODONE (Roxicodone) immediate release tablet 5 mgJump to med 5 mg, Oral, Every 4 hours PRN, Starting on 06/06/25 at 1150, Until Sat06/08/25 at 1627, Routine, moderate pain Or oxyCODONE (Roxicodone) immediate release tablet 10 mgJump to med 10 mg, Oral, Every 4 hours PRN, Starting on 06/06/25 at 1150, Until Sat06/08/25 at 1627, Routine, severe pain documented in this encounter Additional Health Concerns Assessment Noted Time A fall risk assessment has been complete d for the patient 05/25/2025 10:53 AM EDT A Body Mass Index follow-up plan has been documented for the patient 06/08/2025 1:13 PM EDT documented as of this encounter Care Teams Promotion Producer Relationship Specialty Start Date End Date Efrain Angeles MD [address] [place] [id number] PCP - General 04/03/24 documented as of this encounter
--- OUTSIDE RECORDS SUMMARY | 2025-05-31 11:50 | XMS_ITS | Encounter Summary ---
Author Organization [facility] Address [address] 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] Procedures WA RESEC LIVER,PART LOBECTOMY WA LAP,DIAGNOSTIC ABDOMEN diagnostic laparoscopy, open partial hepatectomy, lymph node dissection LAPAROSCOPY, DIAGNOSTIC Steve Veloz MD [address] [phone] Phone: tel: fax: [facility] [address] [place] [phone] Phone: tel: Referral ID Status Reason Start Date Expiration Date Visits Re quested Visits Authorized [id number] 1 1 Encounter Details Date Type Department Care Team (Late st Contact Info) Description 05/31/2025 11:50 AM EDT - 05/31/2025 5:20 PM EDT Surgery [facility] [address] [place] [phone] Steve Veloz MD [address] [phone] open partial hepatectomy, lymph node dissection [91684 (CPT )] Surgery Details Date/Time Status Location OR Service Patient Class Case Class Case Type Trauma Case? 05/31/2025 11:50 AM Posted [facility] OR 2OR 11 Surgical Oncology Surgery Admit E-Electi ve Panel 1 Procedure LRB Anes Op Region Wound Class Comments open partial hepatectomy, lymph node dissection N/A General Class II/ Clean Con taminated RT 3h LAPAROSCOPY, DIAGNOSTIC N/A General Class II/ Clean Contaminated Surgeon Surgeon Role Service Panel Steve Veloz MD Primary Surgical Oncology 1 Liza De La Vega MD Resident - Assisting 1 Special Needs Aminta, [id number], Ligasure documented in this encounter Social History Tobacco [...] any time in the past 12 m [facility], were you homeless or living in a assisted (including now)? No 06/01/2025 [facility] Utilities Answer Date Recorded In the past 12 months has [facility] electric, gas, oil, or water company threatened [...] Sign Reading Time Taken Comments Blood Pressure 108/60 05/31/2025 5:15 PM EDT Pulse 91 05/31/2025 5:15 PM EDT Temperature 36.5 C (97.7 F) 05/31/2025 5:15 PM EDT Respiratory Rate 21 05/31/2025 5:15 PM EDT Oxygen Saturation 92% 05/31/2025 5:15 PM EDT Inhaled Oxygen Concentration - - Weight - - Height - - Body Mass Index - - documented in this encounter Functional Status * [...] Date of Assessment Author No Risk Indicated 05/31/2025 10:07 AM EDT Moy Waddell RN * Question Answer Date of Assessment Author 1. Wish to be (Past 1 Month) No 025 10:07 AM EDT Moy Varma RN 2. Non-Specific Active Suici nelda Thoughts (Past 1 Month) No 05/31/2025 10:07 AM EDT Charles Varma RN 6. Suicidal Behavior (Lifetime) No 10:07 AM EDT Moy Varma RN documented as of this encounter Discharge Instructions * Discharge Instructions* Margarette Diaz, PREDATORY ANIMAL TRAPPER - 06/07/2025 4:05 PM EDT Post-Operative Discharge [...] vomiting, or feeling unwell - Call the [facility] with any questions or concerns during regular [...] 12 hours or as directed by MD. 10 patch 06/08/2025 losartan (Cozaar) 50 MG [...] for nausea or vomiting. 20 tablet 06/08/2025 5 oxyCODONE (Roxicodone) 5 MG immediate release tablet [...] of Care Review 06/08/2025 1224 by Christi Harper, RN Outcome: Met 06/08/2025 1222 by Christi Harper RN Outcome: Ongoing, Progressing Goal: Patient-Specific Goal (Individualized) 06/08/2025 1224 by Christi Harper RN Outcome: Met 06/08/2025 1222 by Christi Harper RN Outcome: Ongoing, Progressing Goal: Absence of Hospital-Acquired Illness or Injury 06/08/2025 1224 by Christi Harper, RN Outcome: Met 06/08/2025 1222 by Christi [...] RN Outcome: Met 06/08/2025 1222 by Christi Harper, RN Outcome: Ongoing, Progressing Intervention: Monitor Pain [...] of Daily Living 06/08/2025 1224 by Christi Harper, RN Outcome: Met 06/08/2025 1222 by Christi Harper, RN Outcome: Ongoing, Progressing Intervention: Promote Activity and Functional [place] Flowsheets (Taken 06/08/2025 0700) Activity Assistance Provided: [...] Ongoing, Progressing Intervention: Promote Activity and Functional [place] Flowsheets (Taken 06/08/2025 0700) Activity Assistance Provided: [...] Note Alyssia Holly 74 y.o. female CSN: [id number] Admission: 05/31/2025 9:14 AM Primary Problem: Adenocarcinoma of gallbladder (CMS/HCC) Primary Residential Green Building Designer: Primary Caregiver: Self Assistance Available at Discharge: as needed per friends Housing Circumstances-Z Codes: Housing Circumstances (select all that apply): None Applicable Patient Referred to Financial or Community Resources: Discharge Facility/Level of Care Needs: Discharge Facility/Level of Care Needs: 1-Home or Self Care Patient's Choice of Community Agency(s): Patient/Family Anticipated Services at Transition: Patient/Family Anticipated Services at Transition: employment evaluator/case manager, durable medical equipment DME/Equipment Needed after Discharge: Equipment Currently Used at Home: walker, rolling, cane, straight Equipment Needed After Discharge: walker, rollator Readmission Within the Last 30 Days: Medicare Documentation: Medicare Second Notice?: Yes Date Second Notice Completed: 06/08/25 Time Second Notice Completed: 932 Medicare Second Notice Recieved By: patient Follow-up: [employer] if patient decides she wants services she will call. DME [phone]-rollator Discharge Transportation: Transportation Anticipated: family or friend [...] RN * Discharge Summary - Margarette Diaz, PREDATORY ANIMAL TRAPPER - 06/08/2025 9:11 AM EDT Hospitalization Admit Date/Time: 05/31/2025 9:14 AM Admitting Attending: Steve Veloz Discharge Date: 06/08/2025 Discharge Attending Physician: Steve eVloz MD PCP name and Address: Efrain Angeles MD [address] [place] / [place] [address] Referring provider name and address: No referring provider defined for this encounter. Chief Concern, Brief History of Present Illness, and Hospital Course Alyssia Holly is a 74 y.o. female with a past medical history of HTN, PUD, cervical cancer (29y/o), colon cancer (rsxn 2010), who presented to [facility] as a scheduled surgical intervention for management [...] by mouth 3 times a week. Takes M-W- senna-docusate sodium 8.6-50 MG tablet Commonly known as: Senokot-S Take 1 tablet by mouth daily. Where to Get Your Medications These medications were sent to [facility] - [place], [place] - [address] [facility] [id number] enoxaparin 40 MG/0.4ML solution prefilled syringe lidocaine [...] vomiting, or feeling unwell - Call the [facility] with any questions or concerns during [...] Ongoing, Progressing Intervention: Promote Activity and Functional [place] Flowsheets (Taken 06/07/20251999) Adaptive Equipment Use: used [...] Flowsheets (Taken 06/06/20251999 by Lolita Cornelius RN) Infection Prevention: cohorting utilized hand hygiene promoted single patient room provided visitors restricted/screened personal protective equipment utilized environmental surveillance performed equipment surfaces disinfected rest/sleep promoted Goal: Optimal Comfort and Wellbeing Outcome: Ongoing, Progressing Intervention: Monitor Pain and Promote Comfort 06/07/20251812 by Christi Harper RN Flowsheets (Taken 06/07/2025 0300 by Lolita Cornelius RN) Pain Management Interventions: position adjusted medication offered but refused 06/07/20251811 by Christi Harper RN Flowsheets (Taken 06/07/2025 030 by Lolita Cornelius RN) Pain Management Interventions: [...] Ongoing, Progressing Intervention: Promote Activity and Functional [place] Flowsheets (Taken 06/07/2025 1600) Activity Assistance Provided: assistance, stand-by Problem: Fall Injury Risk Goal: Absence of Fall and Fall-Related Injury Outcome: Ongoing, Progressing Intervention: Identify and Manage Contributors Flowsheets (Taken 06/06/20251999 by Lolita Cornelius, ELIEZER) Medication Review/Management: medications reviewed high-risk medications identified [...] Note Alyssia Holly 74 y.o. female CSN: [id number] Admission: 05/31/2025 9:14 AM Primary Problem: Adenocarcinoma of gallbladder (CMS/HCC) Anticipated Discharge Date: 06/08 Has Discharge Plans Changed? Yes home with home health pt ot sn Medicare Second Notice: Housing Circumstances: Not Applicable Housing Circumstances Action Taken: Medically Ready for Discharge: No Additional Comments [facility], [facility]. [phone] Has accepted patient . POC reviewed with Ramona Davis APRN on primary team. PT recommends a RW for home. CM ordered RW from [facility] to be delivered bedside this afternoon. He stated patient will dc home tomorrow. Refer to primary team's progress note for details. Barbie Latham RN * Progress Notes - Margoth Corea [...] early Participants in Care Family/Caregiver Present: No Nuclear Equipment Operator: Not Applicable Presentation Oxygen Therapy: None (Room [...] Transfer Exam: Sit to stand Level of [place]: Stand-by assist Physical/Nonphysical Assist: Minimal cues Assistive Device: Walker, rolling Transfer Exam: Stand to Sit Level of [place]: Stand-by assist Physical/Nonphysical Assist: Minimal cues Assistive Device: Walker, rolling Toilet Transfer Level of [place]: Stand-by assist Physical/Nonphysical Assist: Verbal Cues Type [...] Additional Comments 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. Nuclear Equipment Operator (if applicable) OBJECTIVE & INTERVENTIONS PAIN Pt was without complaints of pain throughout the PT treatment. Prior to PT's departure: * rest was provided * pt was positioned for comfort * pillow support was provided DELIRIUM SCREENING RASS: Alert and calm Feature 3: Altered Level of Consciousness: Negative THERAPEUTIC ACTIVITY Treatment Minutes 40 TRANSFERS Level of [place] Physical/Non- physical Assist Adaptive Equipment Utilized Sit [...] falling while progressing pt's distances Level of [place] Distance Adaptive Equipment Utilized Gait Standby assist, [...] 1:02 PM. * Progress Notes - Rosalind Nava, RN - 06/07/2025 8:09 AM EDT Epidural catheter removed yesterday. Catheter site clean, dry, intact, and open to air at this time. Acute Pain will sign off. Please Contact Acute Pain Service with any additional questions or concerns via [employer] orpaDextrys [phone]. * Progress Notes - Garrett Mazariegos MD - 06/07/2025 7:18 AM EDT Images from the original note were not included. [facility] Department of Surgery Division of Surgical Oncology Surgery Progress Note 06/07/25 Alyssia Eugenie Holly Subjective Subjective: HPI 74F w/ PMHx [...] by Drain (mL) 06/05/25 07 - 06/05/25 1859 06/05/25 190 - 06/06/25 0659 06/06/25 0700 - 06/06/25 1859 06/06/25 1900 - 06/07/25 0659 06/07/25 0700 - 06/07/25 0729 Patient has no LDAs [...] Ongoing, Progressing Intervention: Promote Activity and Functional [place] Flowsheets (Taken 06/06/20251999) Adaptive Equipment Use: used [...] 24 hours Assessment: doing well Plan: wean CLAMP TRUCK DRIVER Plan explained/all questions answered/plan in agreement with: [...] with any additional questions or concerns via [employer] Secure Chat orpage [phone]. * Progress Notes - Jarvis Pozo MD [...] overnight on RA. Pain controlled with epidural CLAMP TRUCK DRIVER (rate decreased to 2). Tolerating GI soft [...] Airway None Output by Drain (mL) 06/04/25 0700 - 06/04/25 1859 06/04/25 1900 - 06/05/25 0659 06/05/25 0700 - [...] Signed 06/02/2025 11:41 AM by Marbin Davis PREDATORY ANIMAL TRAPPER - multimodal pain management - transition PO pain meds as diet advances and prior to discharge Electrolyte abnormality Overview Signed 06/02/2025 11:41 AM by Marbin Davis PREDATORY ANIMAL TRAPPER - daily/PRN CMP, Mg, Phos - replete as appropriate - goal: K>4, phos>3, mg>2 Leukocytosis Overview Signed 06/02/2025 11:41 AM by Marbin Davis APRN - common post-op finding likely reactive 2/2 surgery - daily/prn CBC - monitor for s/s of active infection Transaminitis Overview Signed 06/02/2025 11:42 AM by Marbin Davis PREDATORY ANIMAL TRAPPER - Common post-op finding - daily/prn CMP [...] (PF) 1.25 mg/mL in 100 mL (PF) CLAMP TRUCK DRIVER no dose Epidural Continuous hydromorphone 10 mcg/mL [...] with any additional questions or concerns via [employer]. * Consults - Mita Chou RN - 06/06/2025 11:13 AM EDT Acute Pain Service Follow-Up Evaluation Alyssia Holly is a 74 y.o. female Visit Type: Routine Current Pain Treatment: Epidural hydromorphone 10mcg bupivacaine 1.25mg 10/24/09 T6-T7 10cm at skin- Ex- lap, partial hepatectomy Follow-Up: Follow-up reason: [facility] rounds Pain Rating (0-10): 3 Comfort/ Acceptable Pain Level: 3 Epidural capped @ 1113. Follow-Up: Follow-Up: Acute Pain service will continue to follow. Acute Pain Service Comments: Pain Service comments: Plan to discontinue when appropriate. Please Contact Acute Pain Service with any additional questions or concerns via [employer]. * Care Plan - Bonnie Schumacher RN [...] Protection Flowsheets (Taken 06/05/20251999 by Lolita Cornelius, RN) Pressure Reduction Techniques: frequent weight shift encouraged [...] Flowsheets (Taken 06/05/20251999 by Lolita Cornelius, RN) Pressure Reduction Techniques: frequent weight shift encouraged heels elevated off bed Sensation Impairment Protection: external pressure sources minimized insensate areas closely monitored Skin Protection: protective footwear used transparent dressing maintained Problem: Self-Care Deficit Goal: Improved Ability to Complete Activities of Daily Living Outcome: Ongoing, Progressing Intervention: Promote Activity and Functional [place] Flowsheets (Taken 06/05/20251999 by Lolita Cornelius RN) Adaptive Equipment Use: used independently Self-Care Promotion: [...] techniques promoted awakenings minimized * Consults - Juleita Brannon RN - 06/05/2025 10:20 PM EDT [...] (PF) 1.25 mg/mL in 100 mL (PF) CLAMP TRUCK DRIVER no dose Epidural Continuous hydromorphone 10 mcg/mL [...] with any additional questions or concerns via [employer] orpage [phone]. * Care Plan - Lolita Cornelius RN - 06/05/2025 8:30 PM EDT Problem: Adult Inpatient Plan of Care Goal: Plan of Care Review Outcome: Ongoing, Progressing Flowsheets (Taken 06/05/20251999) Plan of Care Reviewed With: patient Goal: Patient-Specific Goal (Individualized) Outcome: Ongoing, Progressing Flowsheets (Taken 06/05/20251999) Patient/Family-Specific Goals (Include Timeframe): Pt will report adequate pain control with the use of iv pain concert promoter pump by rating pain at less than [...] Ongoing, Progressing Intervention: Promote Activity and Functional [place] Flowsheets (Taken 06/05/20251999) Adaptive Equipment Use: used [...] doing well, progressing appropriately, reports the epidural CLAMP TRUCK DRIVER seems to be helping with pain management. No adverse effects noted. Acute pain service plans to continue the epidural CLAMP TRUCK DRIVER for now and will continue to follow. [...] (PF) 1.25 mg/mL in 100 mL (PF) CLAMP TRUCK DRIVER no dose Epidural Continuous hydromorphone 10 mcg/mL [...] with any additional questions or concerns via [employer] Secure Chat orpage [phone]. * Care Plan - Reian Haile RN - 06/05/2025 9:23 AM EDT [...] and Manage Fall Risk Flowsheets (Taken 06/05/2025 08) Safety Promotion/Fall Prevention: safety round/check completed activity [...] Ongoing, Progressing Intervention: Promote Activity and Functional [place] Flowsheets (Taken 06/05/2025919) Activity Assistance Provided: assistance, [...] Intervention: Optimize Psychosocial Wellbeing Flowsheets (Taken 06/05/2025 09) Supportive Measures: active listening utilized relaxation techniques promoted self-care encouraged positive reinforcement provided Diversional Activities: television smartphone Spiritual Activities Assistance: hope instilled Intervention: Prevent or Manage Pain Flowsheets (Taken 06/05/2025919) Sensory Stimulation Regulation: quiet environment promoted care clustered * Progress Notes - Radha Estrella - 06/05/2025 8:01 AM EDT Images from the original note were not included. [facility] Department of Surgery Division of Surgical Oncology [...] comfortably in bed. Pain controlled with epidural CLAMP TRUCK DRIVER (rate decreased to 3), tolerating FLD after [...] + 5x Edited by: Radha Estrella at 06/05/2025 0928 Review of Systems: Relevant review of systems [...] - 06/04/25 0659 06/04/25 07 - 06/04/25 1859 06/04/25 190 - 06/05/25 0659 06/05/25 07 - 06/05/25 0928 Patient has no LDAs of requested type [...] subacute Edited by: Radha Estrella at 06/05/2025 09 Dispo: Continue Current Level of Care Radha [...] reach Intervention: Prevent Skin Injury Flowsheets Taken 06/04/20252199 Body Position: weight shifting Taken 06/04/20251999 Skin Protection: transparent dressing maintained protective footwear used Intervention: Prevent and Manage VTE (Venous Thromboembolism) Risk Flowsheets (Taken 06/04/20252319) VTE Prevention/Management: medication lower extremity bilateral SCDs (sequential compression devices) off previous patient education reinforced Intervention: Prevent Infection Flowsheets (Taken 06/04/20252319) Infection Prevention: cohorting utilized personal protective equipment utilized equipment surfaces disinfected environmental surveillance performed rest/sleep promoted single patient room provided hand hygiene promoted visitors restricted/screened Goal: Optimal Comfort and Wellbeing Outcome: Ongoing, Progressing Intervention: Monitor Pain and Promote Comfort Flowsheets (Taken 06/04/20252319) Pain Management Interventions: medication (see MAR) pain pump in use rest pain management plan reviewed with patient/caregiver pillow support provided Intervention: Provide Person-Centered Care Flowsheets (Taken 06/04/2025 7730) Trust Relationship/Rapport: care explained choices provided emotional [...] (PF) 1.25 mg/mL in 100 mL (PF) CLAMP TRUCK DRIVER no dose Epidural Continuous hydromorphone 10 mcg/mL [...] with any additional questions or concerns via [email or web address]. * Consults - Nasreen Hair RN - [...] (PF) 1.25 mg/mL in 100 mL (PF) CLAMP TRUCK DRIVER no dose Epidural Continuous hydromorphone 10 mcg/mL [...] with any additional questions or concerns via [employer] orpaDextrys [phone]. * Progress Notes - Pauline Mohamud MD [...] Identify and Manage Fall Risk Flowsheets (Taken 06/04/20251337) Safety Promotion/Fall Prevention: activity supervised lighting adjusted mobility aid in reach assistive device/personal items within reach clutter-free environment maintained fall prevention program maintained Intervention: Prevent Skin Injury Flowsheets (Taken 06/04/20251337) Body Position: weight shifting Skin Protection: protective footwear used transparent dressing maintained pulse oximeter probe site changed Intervention: Prevent and Manage VTE (Venous Thromboembolism) Risk Flowsheets (Taken 06/04/20251337) VTE Prevention/Management: (ambulating) bilateral SCDs (sequential compression devices) off Intervention: Prevent Infection Flowsheets (Taken 06/04/20251337) Infection Prevention: environmental surveillance performed personal protective equipment utilized rest/sleep promoted hand hygiene promoted single patient room provided Goal: Optimal Comfort and Wellbeing Outcome: Ongoing, Progressing Intervention: Monitor Pain and Promote Comfort Flowsheets (Taken 06/04/20251337) Pain Management Interventions: pain pump in use relaxation techniques promoted quiet environment facilitated Intervention: Provide Person-Centered Care Flowsheets (Taken 06/04/20251337) Trust Relationship/Rapport: care explained questions encouraged reassurance provided questions answered Problem: Skin Injury Risk Increased Goal: Skin Health and Integrity Outcome: Ongoing, Progressing Intervention: Optimize Skin Protection Flowsheets (Taken 06/04/20251337) Activity Management: activity adjusted per tolerance ambulated to bathroom Pressure Reduction Techniques: frequent weight shift encouraged Skin Protection: protective footwear used transparent dressing maintained pulse oximeter probe site changed Head of Bed (HOB) Positioning: HOB elevated Intervention: Promote and Optimize Oral Intake Flowsheets (Taken 06/04/20251337) Oral Nutrition Promotion: physical activity promoted Nutrition Interventions: frequent small meals provided Problem: Functional Deficit Goal: Improved Balance and Postural Control Outcome: Ongoing, Progressing Intervention: Optimize Balance and Safe Activity Flowsheets (Taken 06/04/20251337) Activity Management: activity adjusted per tolerance ambulated to bathroom Adaptive Equipment Use: use encouraged used independently Safety Promotion/Fall Prevention: activity supervised lighting adjusted mobility aid in reach assistive device/personal items within reach clutter-free environment maintained fall prevention program maintained Self-Care Promotion: independence encouraged meal set-up provided adaptive equipment use encouraged Goal: Optimal Cognitive Function Outcome: Ongoing, Progressing Intervention: Optimize Cognitive Function Flowsheets (Taken 06/04/20251337) Sensory Stimulation Regulation: quiet environment promoted care clustered lighting decreased Self-Care Promotion: independence encouraged meal set-up provided adaptive equipment use encouraged Goal: Optimal Coordination Outcome: Ongoing, Progressing Intervention: Optimize Motor Coordination and Function Flowsheets (Taken 06/04/2025 133) Self-Care Promotion: independence encouraged meal set-up provided adaptive equipment use encouraged Goal: Improved Muscle Strength Outcome: Ongoing, Progressing Intervention: Optimize Muscle Strength Flowsheets (Taken 06/04/20251337) Activity Management: activity adjusted per tolerance ambulated to bathroom Activity Assistance Provided: assistance, stand-by Adaptive Equipment Use: use encouraged used independently Self-Care Promotion: independence encouraged meal set-up provided adaptive equipment use encouraged Goal: Improved Muscle Tone Outcome: Ongoing, Progressing Intervention: Optimize Muscle Tone Flowsheets (Taken 06/04/2025 133) Spasticity Management: positioned with supportive device Goal: Optimal Range of Motion Outcome: Ongoing, Progressing Intervention: Maintain Functional Joint Range Position Flowsheets (Taken 06/04/20251337) Range of Motion: active ROM (range of [...] Ongoing, Progressing Intervention: Promote Activity and Functional [place] Flowsheets (Taken 06/04/2025 133) Activity Assistance Provided: assistance, stand-by Adaptive Equipment Use: use encouraged used independently Self-Care Promotion: independence encouraged meal set-up provided adaptive equipment use encouraged Problem: Fall Injury Risk Goal: Absence of Fall and Fall-Related Injury Outcome: Ongoing, Progressing Intervention: Identify and Manage Contributors Flowsheets (Taken 06/04/20251337) Medication Review/Management: medications reviewed Self-Care Promotion: independence [...] Intervention: Optimize Psychosocial Wellbeing Flowsheets (Taken 06/04/2025 1338) Supportive Measures: active listening utilized relaxation techniques promoted Diversional Activities: television smartphone Spiritual Activities Assistance: personal rituals encouraged Intervention: Develop Pain Management Plan Flowsheets (Taken 06/04/2025 1338) Pain Management Interventions: pain pump in use relaxation techniques promoted quiet environment facilitated Intervention: Prevent or Manage Pain Flowsheets (Taken 06/04/2025 1338) Sensory Stimulation Regulation: quiet environment promoted care [...] air) Lines and Tubes: Telemetry, Intravenous access, CLAMP TRUCK DRIVER Pre-Session: Supine, Head of bed elevated, Lines [...] reported 7/10 back pain and used her CLAMP TRUCK DRIVER pumps twice during the session. Delirium Screening [...] Mobility Bed Mobility Exam: Rolling/Turning Level of Russian Mission: Minimum assist (75% patient effort) Physical/Nonphysical Assist: Set-up required, Verbal Cues, Minimal cues Assistive Device: Bed rails Bed Mobility Exam: Scooting/Bridging Level of Russian Mission: Stand-by assist Physical/Nonphysical Assist: Set-up required, Minimal cues Assistive Device: Bed rails Bed Mobility Exam: Supine to Sit Level of Russian Mission: Minimum assist (75% patient's effort) Physical/Nonphysical Assist: Set-up required, Minimal cues Assistive Device: Bed rails Transfers Transfer Exam: Sit to stand Level of Russian Mission: Contact guard Physical/Nonphysical Assist: Set-up required, Minimal cues Assistive Device: Walker, rolling Transfer Exam: Stand to Sit Level of Russian Mission: Contact guard Physical/Nonphysical Assist: Set-up required, Minimal cues Assistive Device: Walker, rolling Toilet Transfer Level of Russian Mission: Minimum assist (75% patient's effort) Physical/Nonphysical Assist: [...] Additional Comments 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. Nuclear Equipment Operator (if applicable) OBJECTIVE & INTERVENTIONS PAIN Pain Intensity / Location Pre-Mobility: abdominal and back pain 5/10 Pain Intensity / Location Post-Mobility: abdominal and back pain 7/10 Prior to PT's departure: * rest was provided * pt was positioned for comfort * pillow support was provided * RN was informed of pt's pain DELIRIUM SCREENING RASS: Alert and calm Feature 3: Altered Level of Consciousness: Negative THERAPEUTIC ACTIVITY Treatment Minutes 25 BED MOBILITY Level of [place] Physical/Non- physical Assist Adaptive Equipment Utilized Rolling/ Turning Scooting/ Bridging Stand-by assist Set-up required, Minimal cues Bed rails Supine to Sit Minimum assist (75% patient's effort) Set-up required, Minimal cues Bed rails Sit to Supine Interventions TRANSFERS Level of [place] Physical/Non- physical Assist Adaptive Equipment Utilized Sit [...] posture, Forward head, Rounded shoulders Level of [place] Mission Balance Support Interventions Static Sit Supervision Right [...] extremity support During ambulation. AMBULATION Level of [place] Distance Adaptive Equipment Utilized Ambulation Contact guard assist 20 ft x 2 Rolling walker Comments Forward posture, decreased juan and increased abdominal pain. VETERINARY PHYSIOLOGIST presence was necessary for: * managing lines [...] 4 Time Frame: 2 weeks Written by Guilelrmo Treadwell on 06/04/25 at 11:38 AM. Cosigned by Suhail Boyd at 06/04/2025 11:44 AM EDT Associated attestation - Suhail Boyd - 06/04/2025 11:44 AM EDT PT and VETERINARY PHYSIOLOGIST discussed pt's change in function and PT is in agreement with VETERINARY PHYSIOLOGIST's change in PT recommendations. * Progress Notes [...] AM resting comfortably. Pain controlled with epidural CLAMP TRUCK DRIVER, tolerating FLD after advancement yesterday with no [...] Output by Drain (mL) 06/02/25 0700 - 06/02/25185806/02/251899 - 06/03/25 0659 06/03/25 07 - 06/03/25 18506/03/25 190 - 06/04/25 0659 06/04/25 07 - 06/04/25 [...] Signed 06/02/2025 11:41 AM by Marbin Davis, PREDATORY ANIMAL TRAPPER - daily/PRN CMP, Mg, Phos - replete as appropriate - goal: K>4, phos>3, mg>2 Leukocytosis Overview Signed 06/02/2025 11:41 AM by Marbin Davis PREDATORY ANIMAL TRAPPER - common post-op finding likely reactive 2/2 surgery - daily/prn CBC - monitor for s/s of active infection Transaminitis Overview Signed 06/02/2025 11:42 AM by Marbin Davis PREDATORY ANIMAL TRAPPER - Common post-op finding - daily/prn CMP [...] (PF) 1.25 mg/mL in 100 mL (PF) CLAMP TRUCK DRIVER no dose Epidural Continuous hydromorphone 10 mcg/mL [...] with any additional questions or concerns via [employer] Secure [employer] orpage [phone]. * Care Plan - Jessica Ureña RN [...] reinforced medication Intervention: Prevent Infection Flowsheets (Taken 06/02/2025 221) Infection Prevention: cohorting utilized environmental surveillance performed [...] (PF) 1.25 mg/mL in 100 mL (PF) CLAMP TRUCK DRIVER no dose Epidural Continuous hydromorphone 10 mcg/mL [...] with any additional questions or concerns via [employer] orpaDextrys [phone]. * Care Plan - Suyapa [place] - [...] doing well, progressing appropriately, reports the epidural CLAMP TRUCK DRIVER seems to be helping with pain management. No adverse effects noted. Acute pain service plans to continue the epidural CLAMP TRUCK DRIVER for now and will continue to follow. [...] removal yesterday 06/02. Pain controlled with epidural CLAMP TRUCK DRIVER, tolerating CLD with no nasuea/vomiting. Low PO [...] - 06/02/25 18506/02/25 190 - 06/03/25 0659 06/03/25699 - 06/03/25 1401 Patient has no LDAs [...] last 7 days Lab Units 06/03/25 0614 06/02/25 0213 06/01/25 0925 HEMOGLOBIN g/dL 11.1* 11.5 12.7 HEMATOCRIT % 33.0* 34.1 38.2 INR Cr Results from last 7 days Lab Units 06/03/25 0352 06/02/25 0213 06/01/25 0925 CREATININE mg/dL 0.40* 0.49* 0.56* Lactate [...] node dissection, segment 4B/5 partial hepatectomy,omental flap [[place]] HTN (hypertension) (Chronic) Peptic ulcer disease (Chronic) Post-op pain Overview Signed 06/02/2025 11:41 AM by Marbin Davis APRN - multimodal pain management - transition PO pain meds as diet advances and prior to discharge Electrolyte abnormality Overview Signed 06/02/2025 11:41 AM by Marbin Davis PREDATORY ANIMAL TRAPPER - daily/PRN CMP, Mg, Phos - replete [...] Note Alyssia Holly 74 y.o. female CSN: [id number] Admission: 05/31/2025 9:14 AM Primary Problem: Adenocarcinoma [...] Note Alyssia Holly 74 y.o. female CSN: [id number] Room/Bed 215/215A Nutrition evaluation type: assessment Reason [...] (Room air) O2 Delivery Method: Nasal cannula [place] Coma Scale Score: 15 [place] Scale Score: [...] (Calculated): 25.5 Weight Evaluation: Overweight (BMI 25-29.9) [place] Body Weight (kg): 56.8 Percent [place] Body Weight: 123 Wt Readings from Last [...] 1978 CATARACT EXTRACTION N/A Cataract Surgery from [email or web address]) CHOLECYSTECTOMY N/A Cholecystectomy from [email or web address] HIP ARTHROPLASTY Bilateral LUMBAR FUSION L4-L5 NASAL SEPTUM SURGERY N/A Nasal Septal Deviation Repair from [facility] ([email or web address] OTHER SURGICAL HISTORY N/A Percutaneous Lithotomy from [email or web address] OTHER SURGICAL HISTORY gastric ulcer perferation RIGHT COLECTOMY TONSILLECTOMY N/A Tonsillectomy from [facility] ([email or web address] [3] Current Facility-Administered Medications: albuterol (Proventil) (2.5 MG/3ML) 0.083% nebulizer solution 2.5 mg, 2.5 mg, Nebulization, q6h PRN,Marbin Davis G, PREDATORY ANIMAL TRAPPER bisacodyl (Dulcolax) suppository 10 mg, 10 mg, Rectal, Daily, Marbin Davis, PREDATORY ANIMAL TRAPPER dextrose 5 % and lactated Ringer's infusion, 42 mL/hr, Intravenous, Continuous, Garrett Mazariegos MD, Last Rate: 42 mL/hr at 06/03/25 0722, 42 mL/hr at 06/03/25 0722 heparin (porcine) injection 5,000 Units, 5,000 Units, Subcutaneous, q8h [facility], Liza De La Vega MD, 5,000 Units at 06/03/25 0541 HYDROmorphone (PF) 10 mcg/mL + bupivacaine (PF) 1.25 mg/mL in 100 mL (PF) CLAMP TRUCK DRIVER, , Epidural, Continuous, New Bag at 06/03/25 1135 AND hydromorphone 10 mcg/mL + bupivacaine 1.25 mg/mL clinician bolus dose, 1-5 mL, Epidural, PRN, Mando Hitchcock MD, 3 mL at 06/01/25 1511 methocarbamol (Robaxin) tablet 1,000 mg, 1,000 mg, Oral, 4x daily, Marbin Davis G, PREDATORY ANIMAL TRAPPER metoclopramide (Reglan) injection 10 mg, 10 mg, [...] in 24 hours. Encouraged patient to use CLAMP TRUCK DRIVER doses to help manage pain better. Will [...] (PF) 1.25 mg/mL in 100 mL (PF) CLAMP TRUCK DRIVER no dose Epidural Continuous hydromorphone 10 mcg/mL [...] with any additional questions or concerns via [employer] [email or web address]. * Care Plan - Jessica Ureña RN [...] (PF) 1.25 mg/mL in 100 mL (PF) CLAMP TRUCK DRIVER no dose Epidural Continuous hydromorphone 10 mcg/mL [...] with any additional questions or concerns via [employer] [email or web address]. * Consults - Nasreen Hair RN - [...] (PF) 1.25 mg/mL in 100 mL (PF) CLAMP TRUCK DRIVER no dose Epidural Continuous hydromorphone 10 mcg/mL [...] with any additional questions or concerns via [employer] orpage [phone]. * Care Plan - Rain Resendez - 06/02/2025 2:02 PM EDT Problem: Adult [...] and Manage Fall Risk Flowsheets (Taken 06/02/2025 1401) Safety Promotion/Fall Prevention: activity supervised clutter-free environment maintained nonskid shoes/slippers when out of bed lighting adjusted safety round/check completed Intervention: Prevent Skin Injury Flowsheets (Taken 06/02/2025 140) Body Position: weight shifting Skin Protection: protective footwear used incontinence pads utilized Intervention: Prevent and Manage VTE (Venous Thromboembolism) Risk Flowsheets (Taken 06/02/2025 140) VTE Prevention/Management: medication education provided Intervention: Prevent [...] to a dual system with low dose CLAMP TRUCK DRIVER. Patient wishes to continue with epidural for [...] (PF) 1.25 mg/mL in 100 mL (PF) CLAMP TRUCK DRIVER no dose Epidural Continuous hydromorphone 10 mcg/mL [...] with any additional questions or concerns via [employer] [email or web address]. * Progress Notes - Marbin Davis, TIM - 06/02/2025 11:27 AM EDT Images from [...] or bowel movement. No nausea or vomiting. Yaneliso d/c maxx I/O 24Hr 06/02 I: 50 PO 600 IV O: 900 UOP (0.58/kg/hr) Edited by: Marbin Davis, PREDATORY ANIMAL TRAPPER at 06/02/2025 1130 Review of Systems: Relevant [...] Airway None Output by Drain (mL) 05/31/25 07 - 05/31/25 1859 05/31/25 1900 - 06/01/25 0659 06/01/25 07 - 06/01/25 1859 06/01/25 190 - 06/02/25 0659 06/02/25 07 - 06/02/25 1142 Requested LDAs do not [...] Results from last 7 days Lab Units 06/02/2521206/01/2592405/31/25 1704 HEMOGLOBIN g/dL 11.5 12.7 12.4 HEMATOCRIT % 34.1 38.2 37.6 INR Cr Results from last 7 days Lab Units 06/02/2521206/01/2592405/31/25 1704 CREATININE mg/dL 0.49* 0.56* 0.44* Lactate [...] Signed 06/02/2025 11:41 AM by Marbin Davis PREDATORY ANIMAL TRAPPER - common post-op finding likely reactive 2/2 [...] Note Alyssia Holly 74 y.o. female CSN: [id number] Admission: 05/31/2025 9:14 AM Primary Problem: Adenocarcinoma of gallbladder (CMS/HCC) Anticipated Discharge Date: 72 hours Additional Comments: KAROLINE spoke with MDs this date re: pt's plan of care. According to MDs, this pt is not medically stable for DC this date and is not anticipated to be stable within 72 hrs. [facility] KAROLINE requested Primary Team consult PM&R. No further SW concerns identified at this time. KAROLINE will monitor pt's progress and will follow up with DC planning and needs as appropriate. Update: [facility] able to accept pt for Acute if no other accepting facilities, call back for admissions [phone]. Pt unable to go to for acute because of PM&R recs. Pt does not qualify for [facility] at due to max assistance and not ambulating. Crystal Blankenship, BUILDER OPERATOR, MANAGER POOL Social Work Senior Department of Case Management [facility] * Consults - Edilma Butler APRN, DNP - 06/02/2025 9:58 AM EDTAssociated Order(s): IP CONSULT TO PHYSICAL MEDICINE REHAB PHYSICAL MEDICINE & REHABILITATION INPATIENT CONSULT NOTE Patient: Alyssia Holly : 1950 PCP: Efrain Angeles MD at [address] / [place] [address] Payor: MEDICARE / Plan: MEDICARE A & [...] of state Previous Residence: lives alone in [place], [place] in a one story double wide [...] Dietary Orders (From admission, onward) Start Ordered 06/01/25 09 Adult diet Diet texture: Clear liquid Diet effective now References: IDDSI Diet Texture Guide Question: Diet texture Answer: Clear liquid 06/01/25 09 PHYSICAL EXAM Visit Vitals BP 116/72 (BP [...] participating in conversation, speech fluent I reviewed notes I reviewed patient labs and vitals [...] We will continue to follow. Please page [phone] with any questions, or resident on-call if [...] 1978 CATARACT EXTRACTION N/A Cataract Surgery from [email or web address]) CHOLECYSTECTOMY N/A Cholecystectomy from [email or web address] HIP ARTHROPLASTY Bilateral LUMBAR FUSION L4-L5 NASAL SEPTUM SURGERY N/A Nasal Septal Deviation Repair from [facility] OTHER SURGICAL HISTORY N/A Percutaneous Lithotomy from [facility] OTHER SURGICAL HISTORY gastric ulcer perferation RIGHT COLECTOMY TONSILLECTOMY N/A Tonsillectomy from [facility] [3] Allergies Allergen Reactions Other Swelling Aerosol disinfectant- especially Lysol Nickel Rash [4] dextrose 5 % and lactated Ringer's, 84 mL/hr, Last Rate: 84 mL/hr (06/02/25 0214) HYDROmorphone (PF) 10 mcg/mL + bupivacaine (PF) 1.25 mg/mL in 100 mL (PF) CLAMP TRUCK DRIVER, naloxone, 0.25-1 mcg/kg/hr naloxone, 0.08 mg [5] heparin (porcine), 5,000 Units, Subcutaneous, q8h ZACARIAS lidocaine, 1 patch, Apply externally, q24h methocarbamol, 1,000 mg, Intravenous, q8h metoclopramide, 10 mg, Intravenous, q8h pantoprazole, 40 mg, Intravenous, Daily phosphorus, 2 tablet, Oral, q8h [6] HYDROmorphone (PF) 10 mcg/mL + bupivacaine (PF) 1.25 mg/mL in 100 mL (PF) CLAMP TRUCK DRIVER, , Epidural, Continuous AND hydromorphone 10 mcg/ml [...] (PF) 1.25 mg/mL in 100 mL (PF) CLAMP TRUCK DRIVER no dose Epidural Continuous hydromorphone 10 mcg/mL [...] with any additional questions or concerns via [employer] orpaDextrys [phone]. * Progress Notes - Gabriel Zhang MD [...] independence encouraged BADL personal objects within reach BAD personal routines maintained adaptive equipment use encouraged [...] independence encouraged BADL personal objects within reach BAD personal routines maintained adaptive equipment use encouraged Goal: Improved Muscle Strength Outcome: Ongoing, Progressing Intervention: Optimize Muscle Strength Flowsheets (Taken 06/02/2025599) Activity Management: dorsiflexion/plantar flexion performed Activity Assistance Provided: independent Adaptive Equipment Use: use encouraged used independently Self-Care Promotion: independence encouraged BADL personal objects within reach BAD personal routines maintained adaptive equipment use encouraged [...] Ongoing, Progressing Intervention: Promote Activity and Functional [place] Flowsheets (Taken 06/02/2025599) Activity Assistance Provided: independent Adaptive Equipment Use: [...] (PF) 1.25 mg/mL in 100 mL (PF) CLAMP TRUCK DRIVER no dose Epidural Continuous hydromorphone 10 mcg/mL [...] with any additional questions or concerns via [employer] orpage Microdermis. * Progress Notes - Barbie Latham RN - 06/01/2025 1:02 PM EDT Case Management Adult Initial Progress Note Alyssia Holly 74 y.o. female CSN: [id number] Admission: 05/31/2025 9:14 AM Primary Problem: Adenocarcinoma of gallbladder (CMS/HCC) Caregivers Non Medical reviewed chart and spoke with patient to complete this Initial Case Management Assessment. PCP: Efrain Angeles MD Emergency Contact: Extended Emergency Contact Information Primary Emergency Contact: Lamont Johnston [facility] Mobile Relation: Power of Clinical Admissions Manager Insurance: Primary Visit Coverage Payer Plan Sponsor Code Group Number Group Name MEDICARE MEDICARE A & B Primary Visit Coverage Subscriber Subscriber ID Subscriber Name Subscriber [facility] Subscriber Address [id number] ALYSSIA HOLLY [id number] [place] [address] Patient information: Primary Caregiver: Self Accompanied by/Relationship: none Support System: Friends Daily Living Activities: Functional Status: Independent Living Arrangements: Alone Type of Residence: Private residence, Single [address] [id number] Current DME: Equipment Currently Used at Home: [...] Outpatient Dialysis Services: Living Will/Advance Directive/Power of Clinical Admissions Manager /Guardian: Have you reviewed your Advance Directive and is it valid for this stay?: Yes Advance Directive: Patient has advance directive, copy in chart POA is Lamont Johnston [phone] Additional Comments: Caregivers Non Medical provided introduction of CM and information on CM role. [facility]. Barbie Latham RN * [...] were you homeless or living in a assisted (including now)? N Food Insecurity Within the past 12 months, you worried that your food would run out before you got the money to buymore. Never true Within the past 12 months, the food you bought just didn't last and you didn't have money to get more. Never true Utilities In the past 12 months has the electric, gas, oil, or water [employer] threatened to shut off services in your [...] mobility. Participants in Care Family/Caregiver Present: No Nuclear Equipment Operator: Not Applicable Presentation Oxygen Therapy: None (Room [...] Function Level of Mobility: Ambulatory- community Mobility [place]: Independent gait without device ADL Performance: Independent [...] thistime. Bed Mobility Exam: Rolling/Turning Level of [place]: (Attempted task however unable to complete secondary to complaint of significant increase in pain from patient.) Bed Mobility Exam: Scooting/Bridging Level of [place]: Dependent (Scooting in sitting to EOB and scooting in supine to HOB.) Physical/Nonphysical Assist: Set-up required, Verbal Cues, Nonverbal cues (demo/gestures), Additional assist utilized for safety Assistive Device: Other (Drawsheet) Bed Mobility Exam: Supine to Sit Level of [place]: Dependent Physical/Nonphysical Assist: Set-up required, Verbal Cues, Nonverbal cues (demo/gestures), Additional assist utilized for safety, HOB elevated Assistive Device: Other (Drawsheet) Bed Mobility Exam: Sit to Supine Level of [place]: Maximum assist (25% patient's effort) Physical/Nonphysical Assist: Set-up required, Verbal Cues, Nonverbal cues (demo/gestures), HOB elevated, Additional assist utilized for safety Assistive Device: Other (Drawsheet) Transfers Transfer Exam: Sit to stand Level of [place]: Moderate assist (50% patient's effort) (Achieved 75% of full stand.) Physical/Nonphysical Assist: Set-up required, Nonverbal cues (demo/gestures), Verbal Cues Transfer Exam: Stand to Sit Level of [place]: Minimum assist (75% patient's effort) Physical/Nonphysical Assist: [...] upper extremity support, Left upper extremity support (POLE SANDER OPERATOR) Static Standing-Level of Assistance: Minimum assistance Standardized Assessments Standardized Assessments Standardized Assessments: [facility] 6-Clicks Mobility Assessment [facility] 6-Clicks Mobility Assessment Difficulty patient has [...] climbing 3-5 steps with a railing?: Unable [facility] 6-Clicks Mobility Assessment Total : 8 Assessment Patient was able to participate in session this date however was extremely limited in her functional mobility secondary to pain. 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 Patient is not safe [...] at 3:34 PM. * Progress Notes - Bryanashleighklarissa Annabel Traore - 06/01/2025 11:53 AM EDT Occupational Therapy [...] please. 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), pt recently offwork the last [...] ago) Level of Mobility: Ambulatory- community Mobility [place]: Independent gait without device History of Falls: [...] Mobility Bed Mobility Exam: Rolling/Turning Level of [place]: (Attempted task however unable to complete secondary to complaint of significant increase in pain from patient.) Bed Mobility Exam: Scooting/Bridging Level of Russian Mission: Dependent (Scooting in sitting to EOB and scooting in supine to HOB.) Physical/Nonphysical Assist: Set-up required, Verbal Cues, Nonverbal cues (demo/gestures), Additional assist utilized for safety Bed Mobility Exam: Supine to Sit Level of [place] Mission: Dependent Physical/Nonphysical Assist: Set-up required, Verbal Cues, Nonverbal cues (demo/gestures), Additional assist utilized for safety, HOB elevated Bed Mobility Exam: Sit to Supine Level of [place] Mission: Maximum assist (25% patient's effort) Physical/Nonphysical Assist: Set-up required, Verbal Cues, Nonverbal cues (demo/gestures), HOB elevated, Additional assist utilized for safety Transfers Transfer Exam: Sit to stand Level of Russian [place]: Moderate assist (50% patient's effort) (Achieved 75% of full stand.) Physical/Nonphysical Assist: Set-up required, Nonverbal cues (demo/gestures), Verbal Cues Transfer Exam: Stand to Sit Level of [place]: Minimum assist (75% patient's effort) Physical/Nonphysical Assist: [...] upper extremity support, Left upper extremity support (POLE SANDER OPERATOR) Static Standing-Level of Assistance: Minimum assistance Self-Care [...] 30% upright) with mod assist x2 using POLE SANDER OPERATOR bilaterally. Pt unable to tolerate standing upright or taking side sides due to abdominal pain. Pt requested to lay back down almost immediately despite encouragement to transfer to the chair. Standardized Assessments [facility] 6-Click Daily Activities Help from Other: Don/Doff Regular Lower Body Clothings: Total Help From Other: Bathing: A lot Help From Other: Toileting: Total Help From Other: Don/Doff Upper Body Clothings: A lot Help From Other: Grooming: Little Help From Other: Eating Meals: Little [facility] 6 Click - Daily Activities Score: [...] provided medication Intervention: Prevent Infection Flowsheets (Taken 06/01/2025 1000) Infection Prevention: rest/sleep promoted Goal: Optimal Comfort and Wellbeing Outcome: Ongoing, Progressing Intervention: Monitor Pain and Promote Comfort Flowsheets (Taken 06/01/2025 1000) Pain Management Interventions: medication (see MAR) Intervention: Provide Person-Centered Care Flowsheets (Taken 06/01/2025 1000) Trust Relationship/Rapport: care explained thoughts/feelings acknowledged Problem: Skin Injury Risk Increased Goal: Skin Health and Integrity Outcome: Ongoing, Progressing Intervention: Optimize Skin Protection Flowsheets (Taken 06/01/2025 1000) Activity Management: activity adjusted per tolerance Head of Bed (HOB) Positioning: HOB at 30 degrees Intervention: Promote and Optimize Oral Intake Flowsheets (Taken 06/01/2025 1000) Oral Nutrition Promotion: rest periods promoted Nutrition [...] (PF) 1.25 mg/mL in 100 mL (PF) CLAMP TRUCK DRIVER no dose Epidural Continuous hydromorphone 10 mcg/mL [...] with any additional questions or concerns via [employer] orpaDextrys [phone]. * Progress Notes - Tori Knox MD - 06/01/2025 7:44 AM EDT Images from the original note were not included. [facility] Department of Surgery Division of [...] prior surgeries, states she is pressing her CLAMP TRUCK DRIVER 'a lot'. No gas or bowel movement. No nausea or vomiting. I/O 24Hr 06/01 I: 1.1L IV O: 1.3L UOP Edited by: Tori Knox MD at 06/01/2025 0754 Review of Systems: Relevant review of systems [...] Airway None Output by Drain (mL) 05/30/25 0700 - 05/30/25 1859 05/30/25 1900 - 05/31/25 0659 05/31/25 0700 - 05/31/25 1859 05/31/25 1900 - 06/01/25 0659 06/01/25 0700 - 06/01/25 0912 Requested LDAs do not [...] (PF) 1.25 mg/mL in 100 mL (PF) CLAMP TRUCK DRIVER no dose Epidural Continuous hydromorphone 10 mcg/mL [...] with any additional questions or concerns via [employer]. * Care Plan - Yumiko Cui RN - 06/01/2025 2:09 AM EDT Problem: Adult Inpatient Plan of Care Goal: Plan of Care Review Outcome: Ongoing, Progressing Flowsheets (Taken 06/01/2025205) Progress: no change Outcome Evaluation: Patient will verbalize pain control Plan of Care Reviewed With: patient durable power of patent prosecution attorney Goal: Patient-Specific Goal (Individualized) Outcome: Ongoing, [...] maintained Intervention: Prevent Skin Injury Flowsheets (Taken 06/01/2025205) Body Position: weight shifting Intervention: Prevent Infection Flowsheets (Taken 06/01/2025205) Infection Prevention: environmental surveillance performed equipment surfaces disinfected hand hygiene promoted rest/sleep promoted Goal: Optimal Comfort and Wellbeing Outcome: Ongoing, Progressing Intervention: Provide Person-Centered Care Flowsheets (Taken 06/01/2025 0206) Trust Relationship/Rapport: choices provided emotional support provided empathic listening provided questions answered questions encouraged reassurance provided thoughts/feelings acknowledged Problem: Skin Injury Risk Increased Goal: Skin Health and Integrity Outcome: Ongoing, Progressing Intervention: Promote and Optimize Oral Intake Flowsheets (Taken 06/01/2025 0206) Oral Nutrition Promotion: rest periods promoted Nutrition Interventions: referred to nutrition tech/tech * Significant Event - Perry Benton MD - 06/01/2025 12:53 AM EDT Images from the original note were not included. [facility] Department of Surgery Division of Surgical Oncology [...] nursing staff. I have notified senior resident/attending visitor information assistant with any issues or concerns. 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 * Anesthesia PACU Signout - Obed Eric [...] Agree with above assessment and evaluation from resident/[employer]IC[employer]. 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 Nursing gave 0.5mg IV dilaudid prior to hookup. No bolus given. Additional Comments: Negative Aspiration. * Op Note - Steve Veloz MD - 05/31/2025 2:06 PM EDT Operative Note Date: 05/31/25 Location: [place] [facility] Name: Alyssia Holly, : 1950, Diagnoses: Pre-op Diagnosis Adenocarcinoma of gallbladder (CMS/HCC) Post-op Diagnosis Adenocarcinoma of gallbladder (CMS/HCC) Procedure(s): Diagnostic laparoscopy Exploratory laparotomy Portal lymph node dissection Segment 4B/5 partial hepatectomy Omental flap Attending Surgeon(s): * Steve Veloz - Primary Land Developer(s): * Liza De La Vega MD - [...] closed with interrupted 0-0 PDS sutures in [id number] fashion. The wound was irrigated copiously. Hemostasis [...] 05/31/2025 2:06 PM EDT Date: 05/31/25 Location: [place] Name: Alyssia Holly, : 1950, Diagnoses: Pre-op Diagnosis Adenocarcinoma of gallbladder (CMS/HCC) Post-op Diagnosis Adenocarcinoma of gallbladder (CMS/HCC) Procedure(s): Diagnostic laparoscopy, segment IVB and V partial hepatectomy, portal lymph node dissection Attending Surgeon(s): * Steve Veloz - Primary Land Developer(s): * Liza De La Vega MD - [...] PM EDT * Hospital Course - Margarette Diaz APRN - 05/31/2025 1:50 PM EDT Alyssia Holly is a 74 y.o. female with a past medical history of HTN, PUD, cervical cancer (29y/o), colon cancer (rsxn 2010), who presented to [facility] as a scheduled surgical intervention for management [...] in 3 weeks. * H&P - Marbin DavisTIM - 05/31/2025 10:56 AM EDT H&P reviewed. [...] Albrecht annually and medical oncology clinic at [facility]. 03/01/2025: CT scan of abdomen and pelvis performed for bloating symptoms revealed gallbladder mildlydistended with wall of the gallbladder slightly irregular and slightly denser than usual after interviewing felt to be of uncertain significance including potential inflammatory change. No abnormalities in the liver lymph nodes. For to general surgeon for cholecystectomy. 7/3/25: Patient underwent cholecystectomy with no intraoperative concern for potential malignancy. Pathology was sent to [facility] which noted small area of adenocarcinoma with [...] consult with Dr. López medical oncology at [facility]. Patient appears to have stage IIA or 2B disease. Patient had lab work including CA [address] was also ordered to rule out any distant metastases. Plan is that if all testing is unremarkable she will be referred to [facility] clinic for surgical evaluation. Referred to Surgical Oncology at [facility]. 05/11/25: SurgOnc Consult. Ca19-9 39.5. Discussed with [...] 1978 CATARACT EXTRACTION N/A Cataract Surgery from [email or web address] CHOLECYSTECTOMY N/A Cholecystectomy from [facility] ([email or web address]) HIP ARTHROPLASTY Bilateral LUMBAR FUSION L4-L5 NASAL SEPTUM SURGERY N/A Nasal Septal Deviation Repair from [facility] ([email or web address]) OTHER SURGICAL HISTORY N/A Percutaneous Lithotomy from [facility] ([email or web address]) OTHER SURGICAL HISTORY gastric ulcer perferation RIGHT COLECTOMY TONSILLECTOMY N/A Tonsillectomy from [facility] ([email or web address]) Social History: Tobacco: Tobacco Use: Low Risk [...] 05/05/2025 1325 GALLBLADDER, SIMPLE CHOLECYSTECTOMY (OUTSIDE CASE: [id number] COLLECTED ON 03/25/2025): - INVASIVE WELL-DIFFERENTIATED ADENOCARCINOMA, [...] Diagnoses Order Schedule Discharge Ambulatory referral to [facility] Outpatient Referral Routine Adenocarcinoma of gallbladder (CMS/HCC) [...] 5:02 AM EDT PHOSPHORUS, PLASMA Routine 06/04/2025 5: 02 AM EDT MAGNESIUM, PLASMA Routine 06/04/2025 5:0 [...] 2:44 PM EDT Adenocarcinoma of gallbladder (CMS/HCC) WA LAP,DIAGNOSTIC ABDOMEN 05/31/2025 1:06 PM EDT Adenocarcinoma of gallbladder (CMS/HCC) Special Needs [employer], [id number], [employer] [place] RESEC LIVER,PART LOBECTOMY 05/31/2025 1:06 PM EDT Adenocarcinoma of gallbladder (CMS/HCC) Special Needs [employer], [id number], [employer] TYPE AND SCREEN Routine 05/31/2025 10:27 AM EDT documented in this encounter Results * Phosphorus, Plasma (06/08/2025 3:59 AM EDT) Phosphorus, Plasma 4.1 2.5 - 4.5 mg/dL 06/08/2025 4:52 AM EDT [facility] Blood Venous blood specimen / Unknown Venipuncture / Unknown 06/08/2025 3:59 AM EDT 06/08/2025 4:23 AM EDT Steve Veloz MD LAB BLOOD ORDERABLES Final R esult Performing Organization Address City/[facility]/ZIP Co de Phone Number [facility] [address] [place] [address] * (ABNORMAL) Magnesium, Plasma (06/08/2025 3:59 AM EDT) Magnesium, Plasma 1.6(L) 1.9 - 2.4 mg/dL 06/08/2025 4:52 AM EDT [facility] Blood Venous blood specimen / Unknown Venipuncture / Unknown 06/08/2025 3:59 AM EDT 06/08/2025 4:23 AM EDT Steve Veloz MD LAB BLOOD ORDERABLES Final R esult Performing Organization Address City/[facility]/ZIP Co de Phone Number [facility] [address] [place] [address] * (ABNORMAL) Comprehensive Metabolic Panel, Plasma (06/08/2025 3:59 AM EDT) Glucose, Plasma 89 74 - 99 mg/dL 06/08/2025 4:52 AM EDT [facility] BUN, Plasma 8 8 - 23 mg/dL 06/08/2025 4:52 AM EDT [facility] Creatinine, Plasma 0.49(L) 0.60 - 1.10 mg/dL 06/08/2025 4:52 AM EDT [facility] BUN/Creatinine Ratio 16 06/08/2025 4:52 AM EDT [facility] Sodium, Plasma 137 136 - 145 mmol/L 06/08/2025 4:52 AM EDT [facility] Potassium, Plasma 3.9 3.6 - 4.9 mmol/L 06/08/2025 4:52 AM EDT [facility] Chloride, Plasma 104 97 - 107 mmol/L 06/08/2025 4:52 AM EDT [facility] CO2, Plasma 23 22 - 29 mmol/L 06/08/2025 4:52 AM EDT [facility] Anion Gap 10 6 - 16 mmol/L 06/08/2025 4:52 AM EDT [facility] Total Calcium, Plasma 8.7(L) 8.9 - 10.2 mg/dL 06/08/2025 4:52 AM EDT [facility] Total Protein 5.3(L) 6.3 - 7.9 g/dL 06/08/2025 4:52 AM EDT [facility] Albumin, Plasma 2.7(L) 3.5 - 5.2 g/dL 06/08/2025 4:52 AM EDT [facility] AST, Plasma 22 10 - 35 U/L 06/08/2025 4:52 AM EDT [facility] ALT, Plasma 25 10 - 35 U/L 06/08/2025 4:52 AM EDT [facility] Alkaline Phosphatase, Plasma 154(H) 46 - 142 U/L 06/08/2025 4:52 AM EDT [facility] Total Bilirubin, Plasma 0.3 0.2 - 1.1 mg/dL 06/08/2025 4:52 AM EDT [facility] eGFRcr 98.4 mL/min/1.7 3m*2 06/08/2025 4:52 AM EDT [facility] Comment:Reported eGFRcr in m L/min/1.73m2 is based the CKD-EPI 2020 equation that does not use a race coefficient. Blood Venous blood specimen / Unknown Venipuncture / Unknown 06/08/2025 3:59 AM EDT 06/08/2025 4:23 AM EDT us Steve Veloz MD LAB BLOOD ORDERABLES Final R esult [facility] [address] [place] [address] * (ABNORMAL) CBC W/O Differential (06/08/2025 3:59 AM EDT) WBC Count 11.26(H) 3.70 - 10.30 10*3/uL LAB HEMATOLOGY METHOD 06/08/2025 4:34 AM EDT [facility] RBC Count 3.10(L) 3.90 - 5.20 10*6/uL LAB HEMATOLOGY METHOD 06/08/2025 4:34 AM EDT [facility] HGB 9.5(L) 11.2 - 15.7 g/dL LAB HEMATOLOGY METHOD 06/08/2025 4:34 AM EDT [facility] HCT 28.7(L) 34.0 - 45.0 % LAB HEMATOLOGY METHOD 06/08/2025 4:34 AM EDT [facility] Platelet Count 320 155 - 369 10*3/uL LAB HEMATOLOGY METHOD 06/08/2025 4:34 AM EDT [facility] MCV 93 79 - 98 fL LAB HEMATOLOGY METHOD 06/08/2025 4:34 AM EDT [facility] MCH 30.6 26.0 - 32.0 pg LAB HEMATOLOGY METHOD 06/08/2025 4:34 AM EDT [facility] MCHC 33.1 30.7 - 35.5 g/dL LAB HEMATOLOGY METHOD 06/08/2025 4:34 AM EDT [facility] RDW 13.6 11.5 - 14.5 % LAB HEMATOLOGY METHOD 06/08/2025 4:34 AM EDT [facility] MPV 11.6 8.8 - 12.5 fL LAB HEMATOLOGY METHOD 06/08/2025 4:34 AM EDT [facility] nRBC 0.0 <=0.0 per 100 WBCs LAB HEMATOLOGY METHOD 06/08/2025 4:34 AM EDT [facility] Blood Venous blood specimen / Unknown Venipuncture / Unknown 06/08/2025 3:59 AM EDT 06/08/2025 4:27 AM EDT us Steve Veloz MD LAB BLOOD ORDERABLES Final R esult [facility] [address] [place] [address] * Phosphorus, Plasma (06/07/2025 3:39 AM EDT) Phosphorus, Plasma 3.5 2.5 - 4.5 mg/dL 06/07/2025 4:25 AM EDT [facility] Blood Venous blood specimen / Unknown Venipuncture / Unknown 06/07/2025 3:39 AM EDT 06/07/2025 3:54 AM EDT Steve Veloz MD LAB BLOOD ORDERABLES Final R esult [facility] [address] [place] [address] * (ABNORMAL) Magnesium, Plasma (06/07/2025 3:39 AM EDT) Magnesium, Plasma 1.7(L) 1.9 - 2.4 mg/dL 06/07/2025 4:25 AM EDT [facility] Blood Venous blood specimen / Unknown Venipuncture / Unknown 06/07/2025 3:39 AM EDT 06/07/2025 3:54 AM EDT Steve Veloz MD LAB BLOOD ORDERABLES Final R esult [facility] [address] [place] [address] * (ABNORMAL) Comprehensive Metabolic Panel, Plasma (06/07/2025 3:39 AM EDT) Glucose, Plasma 97 74 - 99 mg/dL 06/07/2025 4:25 AM EDT [facility] BUN, Plasma 7(L) 8 - 23 mg/dL 06/07/2025 4:25 AM EDT [facility] Creatinine, Plasma 0.48(L) 0.60 - 1.10 mg/dL 06/07/2025 4:25 AM EDT [facility] BUN/Creatinine Ratio 15 06/07/2025 4:25 AM EDT [facility] Sodium, Plasma 137 136 - 145 mmol/L 06/07/2025 4:25 AM EDT [facility] Potassium, Plasma 3.7 3.6 - 4.9 mmol/L 06/07/2025 4:25 AM EDT [facility] Chloride, Plasma 104 97 - 107 mmol/L 06/07/2025 4:25 AM EDT [facility] CO2, Plasma 22 22 - 29 mmol/L 06/07/2025 4:25 AM EDT [facility] Anion Gap 11 6 - 16 mmol/L 06/07/2025 4:25 AM EDT [facility] Total Calcium, Plasma 8.9 8.9 - 10.2 mg/dL 06/07/2025 4:25 AM EDT [facility] Total Protein 5.5(L) 6.3 - 7.9 g/dL 06/07/2025 4:25 AM EDT [facility] Albumin, Plasma 3.0(L) 3.5 - 5.2 g/dL 06/07/2025 4:25 AM EDT [facility] AST, Plasma 28 10 - 35 U/L 06/07/2025 4:25 AM EDT [facility] ALT, Plasma 36(H) 10 - 35 U/L 06/07/2025 4:25 AM EDT [facility] Alkaline Phosphatase, Plasma 176(H) 46 - 142 U/L 06/07/2025 4:25 AM EDT [facility] Total Bilirubin, Plasma 0.3 0.2 - 1.1 mg/dL 06/07/2025 4:25 AM EDT [facility] eGFRcr 98.9 mL/min/1.7 3m*2 06/07/2025 4:25 AM EDT [facility] Comment:Reported eGFRcr in m L/min/1.73m2 is based the CKD-EPI 2020 equation that does not use a race coefficient. Blood Venous blood specimen / Unknown Venipuncture / Unknown 06/07/2025 3:39 AM EDT 06/07/2025 3:54 AM EDT us Steve Veloz MD LAB BLOOD ORDERABLES Final R esult [facility] [address] [place] [address] * (ABNORMAL) CBC W/O Differential (06/07/2025 3:39 AM EDT) WBC Count 11.74(H) 3.70 - 10.30 10*3/uL LAB HEMATOLOGY METHOD 06/07/2025 4:06 AM EDT [facility] RBC Count 3.31(L) 3.90 - 5.20 10*6/uL LAB HEMATOLOGY METHOD 06/07/2025 4:06 AM EDT [facility] HGB 10.2(L) 11.2 - 15.7 g/dL LAB HEMATOLOGY METHOD 06/07/2025 4:06 AM EDT [facility] HCT 30.5(L) 34.0 - 45.0 % LAB HEMATOLOGY METHOD 06/07/2025 4:06 AM EDT [facility] Platelet Count 304 155 - 369 10*3/uL LAB HEMATOLOGY METHOD 06/07/2025 4:06 AM EDT [facility] MCV 92 79 - 98 fL LAB HEMATOLOGY METHOD 06/07/2025 4:06 AM EDT [facility] MCH 30.8 26.0 - 32.0 pg LAB HEMATOLOGY METHOD 06/07/2025 4:06 AM EDT [facility] MCHC 33.4 30.7 - 35.5 g/dL LAB HEMATOLOGY METHOD 06/07/2025 4:06 AM EDT [facility] RDW 13.6 11.5 - 14.5 % LAB HEMATOLOGY METHOD 06/07/2025 4:06 AM EDT [facility] MPV 11.6 8.8 - 12.5 fL LAB HEMATOLOGY METHOD 06/07/2025 4:06 AM EDT [facility] nRBC 0.0 <=0.0 per 100 WBCs LAB HEMATOLOGY METHOD 06/07/2025 4:06 AM EDT [facility] Blood Venous blood specimen / Unknown Venipuncture / Unknown 06/07/2025 3:39 AM EDT 06/07/2025 3:56 AM EDT us Steve Veloz MD LAB BLOOD ORDERABLES Final R esult [facility] [address] [place] [address] * Phosphorus, Plasma (06/06/2025 4:43 AM EDT) Phosphorus, Plasma 3.5 2.5 - 4.5 mg/dL 06/06/2025 5:24 AM EDT [facility] Blood Venous blood specimen / Unknown Venipuncture / Unknown 06/06/2025 4:43 AM EDT 06/06/2025 4:54 AM EDT Steve Veloz MD LAB BLOOD ORDERABLES Final R esult Performing Organization Address [facility]/ZIP Co de Phone Number [facility] [address] [place] [address] * (ABNORMAL) Magnesium, Plasma (06/06/2025 4:43 AM EDT) Magnesium, Plasma 1.6(L) 1.9 - 2.4 mg/dL 06/06/2025 5:24 AM EDT [facility] Blood Venous blood specimen / Unknown Venipuncture / Unknown 06/06/2025 4:43 AM EDT 06/06/2025 4:54 AM EDT Steve Veloz MD LAB BLOOD ORDERABLES Final R esult Performing Organization Address [facility]/ZIP Co de Phone Number [facility] [address] [place] [address] * (ABNORMAL) Comprehensive Metabolic Panel, Plasma (06/06/2025 4:43 AM EDT) Glucose, Plasma 93 74 - 99 mg/dL 06/06/2025 5:24 AM EDT [facility] BUN, Plasma 7(L) 8 - 23 mg/dL 06/06/2025 5:24 AM EDT [facility] Creatinine, Plasma 0.49(L) 0.60 - 1.10 mg/dL 06/06/2025 5:24 AM EDT [facility] BUN/Creatinine Ratio 14 06/06/2025 5:24 AM EDT [facility] Sodium, Plasma 138 136 - 145 mmol/L 06/06/2025 5:24 AM EDT [facility] Potassium, Plasma 3.6 3.6 - 4.9 mmol/L 06/06/2025 5:24 AM EDT [facility] Chloride, Plasma 104 97 - 107 mmol/L 06/06/2025 5:24 AM EDT [facility] CO2, Plasma 24 22 - 29 mmol/L 06/06/2025 5:24 AM EDT [facility] Anion Gap 10 6 - 16 mmol/L 06/06/2025 5:24 AM EDT [facility] Total Calcium, Plasma 8.4(L) 8.9 - 10.2 mg/dL 06/06/2025 5:24 AM EDT [facility] Total Protein 5.1(L) 6.3 - 7.9 g/dL 06/06/2025 5:24 AM EDT [facility] Albumin, Plasma 2.8(L) 3.5 - 5.2 g/dL 06/06/2025 5:24 AM EDT [facility] AST, Plasma 24 10 - 35 U/L 06/06/2025 5:24 AM EDT [facility] ALT, Plasma 41(H) 10 - 35 U/L 06/06/2025 5:24 AM EDT [facility] Alkaline Phosphatase, Plasma 157(H) 46 - 142 U/L 06/06/2025 5:24 AM EDT [facility] Total Bilirubin, Plasma 0.4 0.2 - 1.1 mg/dL 06/06/2025 5:24 AM EDT [facility] eGFRcr 98.4 mL/min/1.7 3m*2 06/06/2025 5:24 AM EDT [facility] Comment:Reported eGFRcr in m L/min/1.73m2 is based the CKD-EPI 2020 equation that does not use a race coefficient. Blood Venous blood specimen / Unknown Venipuncture / Unknown 06/06/2025 4:43 AM EDT 06/06/2025 4:54 AM EDT us Steve Veloz MD LAB BLOOD ORDERABLES Final R esult [facility] [address] [place] [address] * (ABNORMAL) CBC W/O Differential (06/06/2025 4:43 AM EDT) WBC Count 12.08(H) 3.70 - 10.30 10*3/uL LAB HEMATOLOGY METHOD 06/06/2025 5:01 AM EDT [facility] RBC Count 3.30(L) 3.90 - 5.20 10*6/uL LAB HEMATOLOGY METHOD 06/06/2025 5:01 AM EDT [facility] HGB 10.0(L) 11.2 - 15.7 g/dL LAB HEMATOLOGY METHOD 06/06/2025 5:01 AM EDT [facility] HCT 29.7(L) 34.0 - 45.0 % LAB HEMATOLOGY METHOD 06/06/2025 5:01 AM EDT [facility] Platelet Count 246 155 - 369 10*3/uL LAB HEMATOLOGY METHOD 06/06/2025 5:01 AM EDT [facility] MCV 90 79 - 98 fL LAB HEMATOLOGY METHOD 06/06/2025 5:01 AM EDT [facility] MCH 30.3 26.0 - 32.0 pg LAB HEMATOLOGY METHOD 06/06/2025 5:01 AM EDT [facility] MCHC 33.7 30.7 - 35.5 g/dL LAB HEMATOLOGY METHOD 06/06/2025 5:01 AM EDT [facility] RDW 13.3 11.5 - 14.5 % LAB HEMATOLOGY METHOD 06/06/2025 5:01 AM EDT [facility] MPV 11.3 8.8 - 12.5 fL LAB HEMATOLOGY METHOD 06/06/2025 5:01 AM EDT [facility] nRBC 0.0 <=0.0 per 100 WBCs LAB HEMATOLOGY METHOD 06/06/2025 5:01 AM EDT [facility] Blood Venous blood specimen / Unknown Venipuncture / Unknown 06/06/2025 4:43 AM EDT 06/06/2025 4:54 AM EDT Steve Veloz MD LAB BLOOD ORDERABLES Final R esult [facility] [address] [place] [address] * Phosphorus, Plasma (06/05/2025 3:43 AM EDT) Phosphorus, Plasma 3.0 2.5 - 4.5 mg/dL 06/05/2025 4:17 AM EDT [facility] Blood Venous blood specimen / Unknown Venipuncture / Unknown 06/05/2025 3:43 AM EDT 06/05/2025 3:48 AM EDT Steve Veloz MD LAB BLOOD ORDERABLES Final R esult Performing Organization Address City/[facility]/ZIP Co de Phone Number [facility] [address] [place] [address] * (ABNORMAL) Magnesium, Plasma (06/05/2025 3:43 AM EDT) Magnesium, Plasma 1.6(L) 1.9 - 2.4 mg/dL 06/05/2025 4:17 AM EDT [facility] Blood Venous blood specimen / Unknown Venipuncture / Unknown 06/05/2025 3:43 AM EDT 06/05/2025 3:48 AM EDT Steve Veloz MD LAB BLOOD ORDERABLES Final R esult Performing Organization Address City/[facility]/ZIP Co de Phone Number [facility] [address] [place] [address] * (ABNORMAL) Comprehensive Metabolic Panel, Plasma (06/05/2025 3:43 AM EDT) Glucose, Plasma 89 74 - 99 mg/dL 06/05/2025 4:17 AM EDT [facility] BUN, Plasma 6(L) 8 - 23 mg/dL 06/05/2025 4:17 AM EDT [facility] Creatinine, Plasma 0.45(L) 0.60 - 1.10 mg/dL 06/05/2025 4:17 AM EDT [facility] BUN/Creatinine Ratio 06/05/2025 4:17 AM EDT [facility] Sodium, Plasma 136 136 - 145 mmol/L 06/05/2025 4:17 AM EDT [facility] Potassium, Plasma 4.2 3.6 - 4.9 mmol/L 06/05/2025 4:17 AM EDT [facility] Chloride, Plasma 104 97 - 107 mmol/L 06/05/2025 4:17 AM EDT [facility] CO2, Plasma 22 22 - 29 mmol/L 06/05/2025 4:17 AM EDT [facility] Anion Gap 10 6 - 16 mmol/L 06/05/2025 4:17 AM EDT [facility] Total Calcium, Plasma 8.0(L) 8.9 - 10.2 mg/dL 06/05/2025 4:17 AM EDT [facility] Total Protein 4.7(L) 6.3 - 7.9 g/dL 06/05/2025 4:17 AM EDT [facility] Albumin, Plasma 2.5(L) 3.5 - 5.2 g/dL 06/05/2025 4:17 AM EDT [facility] AST, Plasma 27 10 - 35 U/L 06/05/2025 4:17 AM EDT [facility] ALT, Plasma 50(H) 10 - 35 U/L 06/05/2025 4:17 AM EDT [facility] Alkaline Phosphatase, Plasma 140 46 - 142 U/L 06/05/2025 4:17 AM EDT [facility] Total Bilirubin, Plasma 0.4 0.2 - 1.1 mg/dL 06/05/2025 4:17 AM EDT [facility] eGFRcr 100.5 mL/min/1.7 3m*2 06/05/2025 4:17 AM EDT [facility] Comment:Reported eGFRcr in m L/min/1.73m2 is based the CKD-EPI 2020 equation that does not use a race coefficient. Blood Venous blood specimen / Unknown Venipuncture / Unknown 06/05/2025 3:43 AM EDT 06/05/2025 3:48 AM EDT us Steve Veloz MD LAB BLOOD ORDERABLES Final R esult [facility] [address] [place] [address] * (ABNORMAL) CBC W/O Differential (06/05/2025 3:43 AM EDT) WBC Count 12.27(H) 3.70 - 10.30 10*3/uL LAB HEMATOLOGY METHOD 06/05/2025 4:00 AM EDT [facility] RBC Count 3.24(L) 3.90 - 5.20 10*6/uL LAB HEMATOLOGY METHOD 06/05/2025 4:00 AM EDT [facility] HGB 9.8(L) 11.2 - 15.7 g/dL LAB HEMATOLOGY METHOD 06/05/2025 4:00 AM EDT [facility] HCT 29.9(L) 34.0 - 45.0 % LAB HEMATOLOGY METHOD 06/05/2025 4:00 AM EDT [facility] Platelet Count 226 155 - 369 10*3/uL LAB HEMATOLOGY METHOD 06/05/2025 4:00 AM EDT [facility] MCV 92 79 - 98 fL LAB HEMATOLOGY METHOD 06/05/2025 4:00 AM EDT [facility] MCH 30.2 26.0 - 32.0 pg LAB HEMATOLOGY METHOD 06/05/2025 4:00 AM EDT [facility] MCHC 32.8 30.7 - 35.5 g/dL LAB HEMATOLOGY METHOD 06/05/2025 4:00 AM EDT [facility] RDW 13.2 11.5 - 14.5 % LAB HEMATOLOGY METHOD 06/05/2025 4:00 AM EDT [facility] MPV 11.7 8.8 - 12.5 fL LAB HEMATOLOGY METHOD 06/05/2025 4:00 AM EDT [facility] nRBC 0.0 <=0.0 per 100 WBCs LAB HEMATOLOGY METHOD 06/05/2025 4:00 AM EDT [facility] Blood Venous blood specimen / Unknown Venipuncture / Unknown 06/05/2025 3:43 AM EDT 06/05/2025 3:48 AM EDT Steve Veloz MD LAB BLOOD ORDERABLES Final R esult [facility] [address] [place] [address] * Phosphorus, Plasma (06/04/2025 5:02 AM EDT) Phosphorus, Plasma 3.0 2.5 - 4.5 mg/dL 06/04/2025 5:41 AM EDT [facility] Blood Venous blood specimen / Unknown Venipuncture / Unknown 06/04/2025 5:02 AM EDT 06/04/2025 5:11 AM EDT Steve Veloz MD LAB BLOOD ORDERABLES Final R esult Performing Organization Address City/[facility]/ZIP Co de Phone Number [facility] [address] [place] [address] * (ABNORMAL) Magnesium, Plasma (06/04/2025 5:02 AM EDT) Magnesium, Plasma 1.7(L) 1.9 - 2.4 mg/dL 06/04/2025 5:41 AM EDT [facility] Blood Venous blood specimen / Unknown Venipuncture / Unknown 06/04/2025 5:02 AM EDT 06/04/2025 5:11 AM EDT Steve Veloz MD LAB BLOOD ORDERABLES Final R esult [facility] [address] [place] [address] * (ABNORMAL) Comprehensive Metabolic Panel, Plasma (06/04/2025 5:02 AM EDT) Glucose, Plasma 105(H) 74 - 99 mg/dL 06/04/2025 5:41 AM EDT [facility] BUN, Plasma 6(L) 8 - 23 mg/dL 06/04/2025 5:41 AM EDT [facility] Creatinine, Plasma 0.43(L) 0.60 - 1.10 mg/dL 06/04/2025 5:41 AM EDT [facility] BUN/Creatinine Ratio 14 06/04/2025 5:41 AM EDT [facility] Sodium, Plasma 138 136 - 145 mmol/L 06/04/2025 5:41 AM EDT [facility] Potassium, Plasma 3.9 3.6 - 4.9 mmol/L 06/04/2025 5:41 AM EDT [facility] Chloride, Plasma 106 97 - 107 mmol/L 06/04/2025 5:41 AM EDT [facility] CO2, Plasma 22 22 - 29 mmol/L 06/04/2025 5:41 AM EDT [facility] Anion Gap 10 6 - 16 mmol/L 06/04/2025 5:41 AM EDT [facility] Total Calcium, Plasma 8.3(L) 8.9 - 10.2 mg/dL 06/04/2025 5:41 AM EDT [facility] Total Protein 5.2(L) 6.3 - 7.9 g/dL 06/04/2025 5:41 AM EDT [facility] Albumin, Plasma 2.7(L) 3.5 - 5.2 g/dL 06/04/2025 5:41 AM EDT [facility] AST, Plasma 38(H) 10 - 35 U/L 06/04/2025 5:41 AM EDT [facility] ALT, Plasma 76(H) 10 - 35 U/L 06/04/2025 5:41 AM EDT [facility] Alkaline Phosphatase, Plasma 152(H) 46 - 142 U/L 06/04/2025 5:41 AM EDT [facility] Total Bilirubin, Plasma 0.5 0.2 - 1.1 mg/dL 06/04/2025 5:41 AM EDT [facility] eGFRcr 101.6 mL/min/1.7 3m*2 06/04/2025 5:41 AM EDT [facility] Comment:Reported eGFRcr in m L/min/1.73m2 is based the CKD-EPI 2020 equation that does not use a race coefficient. Blood Venous blood specimen / Unknown Venipuncture / Unknown 06/04/2025 5:02 AM EDT 06/04/2025 5:11 AM EDT us Steve Veloz MD LAB BLOOD ORDERABLES Final R esult [facility] [address] [place] [address] * (ABNORMAL) CBC W/O Differential (06/04/2025 5:02 AM EDT) WBC Count 14.42(H) 3.70 - 10.30 10*3/uL LAB HEMATOLOGY METHOD 06/04/2025 5:22 AM EDT [facility] RBC Count 3.76(L) 3.90 - 5.20 10*6/uL LAB HEMATOLOGY METHOD 06/04/2025 5:22 AM EDT [facility] HGB 11.2 11.2 - 15.7 g/dL LAB HEMATOLOGY METHOD 06/04/2025 5:22 AM EDT [facility] HCT 34.6 34.0 - 45.0 % LAB HEMATOLOGY METHOD 06/04/2025 5:22 AM EDT [facility] Platelet Count 213 155 - 369 10*3/uL LAB HEMATOLOGY METHOD 06/04/2025 5:22 AM EDT [facility] MCV 92 79 - 98 fL LAB HEMATOLOGY METHOD 06/04/2025 5:22 AM EDT [facility] MCH 29.8 26.0 - 32.0 pg LAB HEMATOLOGY METHOD 06/04/2025 5:22 AM EDT [facility] MCHC 32.4 30.7 - 35.5 g/dL LAB HEMATOLOGY METHOD 06/04/2025 5:22 AM EDT [facility] RDW 13.4 11.5 - 14.5 % LAB HEMATOLOGY METHOD 06/04/2025 5:22 AM EDT [facility] MPV 12.2 8.8 - 12.5 fL LAB HEMATOLOGY METHOD 06/04/2025 5:22 AM EDT [facility] nRBC 0.0 <=0.0 per 100 WBCs LAB HEMATOLOGY METHOD 06/04/2025 5:22 AM EDT [facility] Blood Venous blood specimen / Unknown Venipuncture / Unknown 06/04/2025 5:02 AM EDT 06/04/2025 5:15 AM EDT us Steve Veloz MD LAB BLOOD ORDERABLES Final R esult [facility] [address] [place] [address] * (ABNORMAL) CBC W/O Differential (06/03/2025 6:14 AM EDT) WBC Count 16.61(H) 3.70 - 10.30 10*3/uL LAB HEMATOLOGY METHOD 06/03/2025 6:29 AM EDT [facility] RBC Count 3.58(L) 3.90 - 5.20 10*6/uL LAB HEMATOLOGY METHOD 06/03/2025 6:29 AM EDT [facility] HGB 11.1(L) 11.2 - 15.7 g/dL LAB HEMATOLOGY METHOD 06/03/2025 6:29 AM EDT [facility] HCT 33.0(L) 34.0 - 45.0 % LAB HEMATOLOGY METHOD 06/03/2025 6:29 AM EDT [facility] Platelet Count 182 155 - 369 10*3/uL LAB HEMATOLOGY METHOD 06/03/2025 6:29 AM EDT [facility] MCV 92 79 - 98 fL LAB HEMATOLOGY METHOD 06/03/2025 6:29 AM EDT [facility] MCH 31.0 26.0 - 32.0 pg LAB HEMATOLOGY METHOD 06/03/2025 6:29 AM EDT [facility] MCHC 33.6 30.7 - 35.5 g/dL LAB HEMATOLOGY METHOD 06/03/2025 6:29 AM EDT [facility] RDW 13.3 11.5 - 14.5 % LAB HEMATOLOGY METHOD 06/03/2025 6:29 AM EDT [facility] MPV 11.8 8.8 - 12.5 fL LAB HEMATOLOGY METHOD 06/03/2025 6:29 AM EDT [facility] nRBC 0.0 <=0.0 per 100 WBCs LAB HEMATOLOGY METHOD 06/03/2025 6:29 AM EDT [facility] Blood Venous blood specimen / Unknown Venipuncture / Unknown 06/03/2025 6:14 AM EDT 06/03/2025 6:19 AM EDT Steve Vleoz MD LAB BLOOD ORDERABLES Final R esult Performing Organization Address City/[facility]/ZIP Co de Phone Number [facility] [address] [place] [address] * Phosphorus, Plasma (06/03/2025 3:52 AM EDT) Phosphorus, Plasma 2.6 2.5 - 4.5 mg/dL 06/03/2025 5:14 AM EDT [facility] Blood Venous blood specimen / Unknown Venipuncture / Unknown 06/03/2025 3:52 AM EDT 06/03/2025 4:36 AM EDT Steve Veloz MD LAB BLOOD ORDERABLES Final R esult Performing Organization Address [facility]/ZIP Co de Phone Number [facility] [address] [place] [address] * (ABNORMAL) Magnesium, Plasma (06/03/2025 3:52 AM EDT) Magnesium, Plasma 1.7(L) 1.9 - 2.4 mg/dL 06/03/2025 5:14 AM EDT [facility] Blood Venous blood specimen / Unknown Venipuncture / Unknown 06/03/2025 3:52 AM EDT 06/03/2025 4:36 AM EDT Steve Veloz MD LAB BLOOD ORDERABLES Final R esult Performing Organization Address City/[facility]/ZIP Co de Phone Number [facility] [address] [place] [address] * (ABNORMAL) Comprehensive Metabolic Panel, Plasma (06/03/2025 3:52 AM EDT) Glucose, Plasma 100(H) 74 - 99 mg/dL 06/03/2025 5:14 AM EDT [facility] BUN, Plasma 7(L) 8 - 23 mg/dL 06/03/2025 5:14 AM EDT [facility] Creatinine, Plasma 0.40(L) 0.60 - 1.10 mg/dL 06/03/2025 5:14 AM EDT [facility] BUN/Creatinine Ratio 18 06/03/2025 5:14 AM EDT [facility] Sodium, Plasma 140 136 - 145 mmol/L 06/03/2025 5:14 AM EDT [facility] Potassium, Plasma 3.3(L) 3.6 - 4.9 mmol/L 06/03/2025 5:14 AM EDT [facility] Chloride, Plasma 107 97 - 107 mmol/L 06/03/2025 5:14 AM EDT [facility] CO2, Plasma 21(L) 22 - 29 mmol/L 06/03/2025 5:14 AM EDT [facility] Anion Gap 12 6 - 16 mmol/L 06/03/2025 5:14 AM EDT [facility] Total Calcium, Plasma 7.9(L) 8.9 - 10.2 mg/dL 06/03/2025 5:14 AM EDT [facility] Total Protein 4.8(L) 6.3 - 7.9 g/dL 06/03/2025 5:14 AM EDT [facility] Albumin, Plasma 2.5(L) 3.5 - 5.2 g/dL 06/03/2025 5:14 AM EDT [facility] AST, Plasma 68(H) 10 - 35 U/L 06/03/2025 5:14 AM EDT [facility] Comment:Hemolyzed, result ma y be falsely increased. ALT, Plasma 110(H) 10 - 35 U/L 06/03/2025 5:14 AM EDT [facility] Alkaline Phosphatase, Plasma 110 46 - 142 U/L 06/03/2025 5:14 AM EDT [facility] Total Bilirubin, Plasma 0.5 0.2 - 1.1 mg/dL 06/03/2025 5:14 AM EDT [facility] eGFRcr 103.4 mL/min/1.7 3m*2 06/03/2025 5:14 AM EDT [facility] Comment:Reported eGFRcr in m L/min/1.73m2 is based the CKD-EPI 2020 equation that does not use a race coefficient. Blood Venous blood specimen / Unknown Venipuncture / Unknown 06/03/2025 3:52 AM EDT 06/03/2025 4:36 AM EDT Steve Veloz MD LAB BLOOD ORDERABLES Final R esult Performing Organization Address City/[facility]/ZIP Co de Phone Number [facility] [address] [place] [address] * (ABNORMAL) Phosphorus, Plasma (06/02/2025 2:13 AM EDT) Phosphorus, Plasma 2.0(L) 2.5 - 4.5 mg/dL 06/02/2025 2:[address] [facility] Blood Venous blood specimen / Unknown Venipuncture / Unknown 06/02/2025 2:13 AM EDT 06/02/2025 2:19 AM EDT Steve Veloz MD LAB BLOOD ORDERABLES Final R esult Performing Organization Address [facility] de Phone Number [facility] [address] [place] [address] * (ABNORMAL) Magnesium, Plasma (06/02/2025 2:13 AM EDT) Magnesium, Plasma 1.8(L) 1.9 - 2.4 mg/dL 06/02/2025 2:49 AM EDT [facility] Blood Venous blood specimen / Unknown Venipuncture / Unknown 06/02/2025 2:13 AM EDT 06/02/2025 2:19 AM EDT Steve Veloz MD LAB BLOOD ORDERABLES Final R esult Performing Organization Address City/[facility] Co de Phone Number [facility] [address] [place] [address] * (ABNORMAL) Comprehensive Metabolic Panel, Plasma (06/02/2025 2:13 AM EDT) Glucose, Plasma 131(H) 74 - 99 mg/dL 06/02/2025 2:49 AM EDT [facility] BUN, Plasma 9 8 - 23 mg/dL 06/02/2025 2:49 AM EDT [facility] Creatinine, Plasma 0.49(L) 0.60 - 1.10 mg/dL 06/02/2025 2:49 AM EDT [facility] BUN/Creatinine Ratio 18 06/02/2025 2:49 AM EDT [facility] Sodium, Plasma 138 136 - 145 mmol/L 06/02/2025 2:49 AM EDT [facility] Potassium, Plasma 3.8 3.6 - 4.9 mmol/L 06/02/2025 2:49 AM EDT [facility] Chloride, Plasma 105 97 - 107 mmol/L 06/02/2025 2:49 AM EDT [facility] CO2, Plasma 21(L) 22 - 29 mmol/L 06/02/2025 2:49 AM EDT [facility] Anion Gap 12 6 - 16 mmol/L 06/02/2025 2:49 AM EDT [facility] Total Calcium, Plasma 8.2(L) 8.9 - 10.2 mg/dL 06/02/2025 2:49 AM EDT [facility] Total Protein 5.3(L) 6.3 - 7.9 g/dL 06/02/2025 2:49 AM EDT [facility] Albumin, Plasma 2.9(L) 3.5 - 5.2 g/dL 06/02/2025 2:49 AM EDT [facility] AST, Plasma 176(H) 10 - 35 U/L 06/02/2025 2:49 AM EDT [facility] Comment:Hemolyzed, result ma y be falsely increased. ALT, Plasma 169(H) 10 - 35 U/L 06/02/2025 2:49 AM EDT [facility] Alkaline Phosphatase, Plasma 102 46 - 142 U/L 06/02/2025 2:49 AM EDT [facility] Total Bilirubin, Plasma 0.5 0.2 - 1.1 mg/dL 06/02/2025 2:49 AM EDT [facility] eGFRcr 98.4 mL/min/1.7 3m*2 06/02/2025 2:49 AM EDT [facility] Comment:Reported eGFRcr in m L/min/1.73m2 is based the CKD-EPI 2020 equation that does not use a race coefficient. Blood Venous blood specimen / Unknown Venipuncture / Unknown 06/02/2025 2:13 AM EDT 06/02/2025 2:19 AM EDT us Steve Veloz MD LAB BLOOD ORDERABLES Final R esult [facility] [address] [place] [address] * (ABNORMAL) CBC W/O Differential (06/02/2025 2:13 AM EDT) WBC Count 19.64(H) 3.70 - 10.30 10*3/uL LAB HEMATOLOGY METHOD 06/02/2025 2:27 AM EDT [facility] RBC Count 3.72(L) 3.90 - 5.20 10*6/uL LAB HEMATOLOGY METHOD 06/02/2025 2:27 AM EDT [facility] HGB 11.5 11.2 - 15.7 g/dL LAB HEMATOLOGY METHOD 06/02/2025 2:27 AM EDT [facility] HCT 34.1 34.0 - 45.0 % LAB HEMATOLOGY METHOD 06/02/2025 2:27 AM EDT [facility] Platelet Count 211 155 - 369 10*3/uL LAB HEMATOLOGY METHOD 06/02/2025 2:27 AM EDT [facility] MCV 92 79 - 98 fL LAB HEMATOLOGY METHOD 06/02/2025 2:27 AM EDT [facility] MCH 30.9 26.0 - 32.0 pg LAB HEMATOLOGY METHOD 06/02/2025 2:27 AM EDT [facility] MCHC 33.7 30.7 - 35.5 g/dL LAB HEMATOLOGY METHOD 06/02/2025 2:27 AM EDT [facility] RDW 13.5 11.5 - 14.5 % LAB HEMATOLOGY METHOD 06/02/2025 2:27 AM EDT [facility] MPV 11.7 8.8 - 12.5 fL LAB HEMATOLOGY METHOD 06/02/2025 2:27 AM EDT [facility] nRBC 0.0 <=0.0 per 100 WBCs LAB HEMATOLOGY METHOD 06/02/2025 2:27 AM EDT [facility] Blood Venous blood specimen / Unknown Venipuncture / Unknown 06/02/2025 2:13 AM EDT 06/02/2025 2:19 AM EDT Steve Veloz MD LAB BLOOD ORDERABLES Final R esult [facility] [address] [place] [address] * Phosphorus, Plasma (06/01/2025 9:25 AM EDT) Phosphorus, Plasma 3.3 2.5 - 4.5 mg/dL 06/01/2025 10:09 AM EDT [facility] Blood Venous blood specimen / Unknown Venipuncture / Unknown 06/01/2025 9:25 AM EDT 06/01/2025 9:39 AM EDT Steve Veloz MD LAB BLOOD ORDERABLES Final R esult Performing Organization Address City/[facility]/ZIP Co de Phone Number [facility] [address] [place] [address] * Magnesium, Plasma (06/01/2025 9:25 AM EDT) Magnesium, Plasma 2.4 1.9 - 2.4 mg/dL 06/01/2025 10:09 AM EDT [facility] Blood Venous blood specimen / Unknown Venipuncture / Unknown 06/01/2025 9:25 AM EDT 06/01/2025 9:39 AM EDT Steve Veloz MD LAB BLOOD ORDERABLES Final R esult [facility] [address] [place] [id number] * (ABNORMAL) Comprehensive Metabolic Panel, Plasma (06/01/2025 9:25 AM EDT) Glucose, Plasma 170(H) 74 - 99 mg/dL 06/01/2025 10:09 AM EDT [facility] BUN, Plasma 9 8 - 23 mg/dL 06/01/2025 10:09 AM EDT [facility] Creatinine, Plasma 0.56(L) 0.60 - 1.10 mg/dL 06/01/2025 10:09 AM EDT [facility] BUN/Creatinine Ratio 16 06/01/2025 10:09 AM EDT [facility] Sodium, Plasma 139 136 - 145 mmol/L 06/01/2025 10:09 AM T [facility] Potassium, Plasma 4.4 3.6 - 4.9 mmol/L 06/01/2025 10:09 AM EDT [facility] Chloride, Plasma 107 97 - 107 mmol/L 06/01/2025 10:09 AM EDT [facility] CO2, Plasma 21(L) 22 - 29 mmol/L 06/01/2025 10:09 AM EDT [facility] Anion Gap 11 6 - 16 mmol/L 06/01/2025 10:09 AM T [facility] Total Calcium, Plasma 8.7(L) 8.9 - 10.2 mg/dL 06/01/2025 10:09 AM T [facility] Total Protein 5.8(L) 6.3 - 7.9 g/dL 06/01/2025 10:09 AM EDT [facility] Albumin, Plasma 3.2(L) 3.5 - 5.2 g/dL 06/01/2025 10:09 AM EDT [facility] AST, Plasma 224(H) 10 - 35 U/L 06/01/2025 10:09 AM T [facility] Comment:Hemolyzed, result ma y be falsely increased. ALT, Plasma 166(H) 10 - 35 U/L 06/01/2025 10:09 AM EDT [facility] Alkaline Phosphatase, Plasma 99 46 - 142 U/L 06/01/2025 10:09 AM EDT [facility] Total Bilirubin, Plasma 0.4 0.2 - 1.1 mg/dL 06/01/2025 10:09 AM EDT [facility] eGFRcr 95.3 mL/min/1.7 3m*2 06/01/2025 10:09 AM EDT [facility] Comment:Reported eGFRcr in m L/min/1.73m2 is based the CKD-EPI 2020 equation that does not use a race coefficient. Blood Venous blood specimen / Unknown Venipuncture / Unknown 06/01/2025 9:25 AM EDT 06/01/2025 9:39 AM EDT us Steve Veloz MD LAB BLOOD ORDERABLES Final R esult [facility] [address] [place] [address] * (ABNORMAL) CBC W/O Differential (06/01/2025 9:25 AM EDT) WBC Count 24.48(H) 3.70 - 10.30 10*3/uL LAB HEMATOLOGY METHOD 06/01/2025 9:50 AM EDT [facility] RBC Count 4.19 3.90 - 5.20 10*6/uL LAB HEMATOLOGY METHOD 06/01/2025 9:50 AM EDT [facility] HGB 12.7 11.2 - 15.7 g/dL LAB HEMATOLOGY METHOD 06/01/2025 9:50 AM EDT [facility] HCT 38.2 34.0 - 45.0 % LAB HEMATOLOGY METHOD 06/01/2025 9:50 AM EDT [facility] Platelet Count 256 155 - 369 10*3/uL LAB HEMATOLOGY METHOD 06/01/2025 9:50 AM EDT [facility] MCV 91 79 - 98 fL LAB HEMATOLOGY METHOD 06/01/2025 9:50 AM EDT [facility] MCH 30.3 26.0 - 32.0 pg LAB HEMATOLOGY METHOD 06/01/2025 9:50 AM EDT [facility] MCHC 33.2 30.7 - 35.5 g/dL LAB HEMATOLOGY METHOD 06/01/2025 9:50 AM EDT [facility] RDW 13.2 11.5 - 14.5 % LAB HEMATOLOGY METHOD 06/01/2025 9:50 AM EDT [facility] MPV 11.7 8.8 - 12.5 fL LAB HEMATOLOGY METHOD 06/01/2025 9:50 AM EDT [facility] nRBC 0.0 <=0.0 per 100 WBCs LAB HEMATOLOGY METHOD 06/01/2025 9:50 AM EDT [facility] Blood Venous blood specimen / Unknown Venipuncture / Unknown 06/01/2025 9:25 AM EDT 06/01/2025 9:43 AM EDT Steve Veloz MD LAB BLOOD ORDERABLES Final R esult [facility] [address] [place] [address] * Phosphorus, Plasma (05/31/2025 5:04 PM EDT) Phosphorus, Plasma 3.2 2.5 - 4.5 mg/dL 05/31/2025 5:41 PM EDT [facility] Blood Venous blood specimen / Unknown Venipuncture / Unknown 05/31/2025 5:04 PM EDT 05/31/2025 5:12 PM EDT Steve Veloz MD LAB BLOOD ORDERABLES Final R esult [facility] [address] [place] [address] * (ABNORMAL) Magnesium, Plasma (05/31/2025 5:04 PM EDT) Magnesium, Plasma 1.4(L) 1.9 - 2.4 mg/dL 05/31/2025 5:41 PM EDT [facility] Blood Venous blood specimen / Unknown Venipuncture / Unknown 05/31/2025 5:04 PM EDT 05/31/2025 5:12 PM EDT Steve Veloz MD LAB BLOOD ORDERABLES Final R esult [facility] [address] [place] [id number] * (ABNORMAL) Comprehensive Metabolic Panel, Plasma (05/31/2025 5:04 PM EDT) Glucose, Plasma 172(H) 74 - 99 mg/dL 05/31/2025 5:41 PM EDT [facility] BUN, Plasma 8 8 - 23 mg/dL 05/31/2025 5:41 PM EDT [facility] Creatinine, Plasma 0.44(L) 0.60 - 1.10 mg/dL 05/31/2025 5:41 PM EDT [facility] BUN/Creatinine Ratio 18 05/31/2025 5:41 PM EDT [facility] Sodium, Plasma 142 136 - 145 mmol/L 05/31/2025 5:41 PM EDT [facility] Potassium, Plasma 3.4(L) 3.6 - 4.9 mmol/L 05/31/2025 5:41 PM EDT [facility] Chloride, Plasma 109(H) 97 - 107 mmol/L 05/31/2025 5:41 PM EDT [facility] CO2, Plasma 20(L) 22 - 29 mmol/L 05/31/2025 5:41 PM EDT [facility] Anion Gap 13 6 - 16 mmol/L 05/31/2025 5:41 PM EDT [facility] Total Calcium, Plasma 8.0(L) 8.9 - 10.2 mg/dL 05/31/2025 5:41 PM EDT [facility] Total Protein 5.6(L) 6.3 - 7.9 g/dL 05/31/2025 5:41 PM EDT [facility] Albumin, Plasma 3.4(L) 3.5 - 5.2 g/dL 05/31/2025 5:41 PM EDT [facility] AST, Plasma 183(H) 10 - 35 U/L 05/31/2025 5:41 PM EDT [facility] ALT, Plasma 93(H) 10 - 35 U/L 05/31/2025 5:41 PM EDT [facility] Alkaline Phosphatase, Plasma 98 46 - 142 U/L 05/31/2025 5:41 PM EDT [facility] Total Bilirubin, Plasma 0.5 0.2 - 1.1 mg/dL 05/31/2025 5:41 PM EDT [facility] eGFRcr 101.0 mL/min/1.7 3m*2 05/31/2025 5:41 PM EDT [facility] Comment:Reported eGFRcr in m L/min/1.73m2 is based the CKD-EPI 2020 equation that does not use a race coefficient. Blood Venous blood specimen / Unknown Venipuncture / Unknown 05/31/2025 5:04 PM EDT 05/31/2025 5:12 PM EDT us Steve Veloz MD LAB BLOOD ORDERABLES Final R esult [facility] [address] [place] [address] * (ABNORMAL) CBC and Differential (05/31/2025 5:04 PM EDT) WBC Count 22.38(H) 3.70 - 10.30 10*3/uL LAB HEMATOLOGY METHOD 05/31/2025 5:22 PM EDT [facility] RBC Count 4.09 3.90 - 5.20 10*6/uL LAB HEMATOLOGY METHOD 05/31/2025 5:22 PM EDT [facility] HGB 12.4 11.2 - 15.7 g/dL LAB HEMATOLOGY METHOD 05/31/2025 5:22 PM EDT [facility] HCT 37.6 34.0 - 45.0 % LAB HEMATOLOGY METHOD 05/31/2025 5:22 PM EDT [facility] Platelet Count 267 155 - 369 10*3/uL LAB HEMATOLOGY METHOD 05/31/2025 5:22 PM EDT [facility] MCV 92 79 - 98 fL LAB HEMATOLOGY METHOD 05/31/2025 5:22 PM EDT [facility] MCH 30.3 26.0 - 32.0 pg LAB HEMATOLOGY METHOD 05/31/2025 5:22 PM EDT [facility] MCHC 33.0 30.7 - 35.5 g/dL LAB HEMATOLOGY METHOD 05/31/2025 5:22 PM EDT [facility] RDW 13.0 11.5 - 14.5 % LAB HEMATOLOGY METHOD 05/31/2025 5:22 PM EDT [facility] MPV 11.6 8.8 - 12.5 fL LAB HEMATOLOGY METHOD 05/31/2025 5:22 PM EDT [facility] nRBC 0.0 <=0.0 per 100 WBCs LAB HEMATOLOGY METHOD 05/31/2025 5:22 PM EDT [facility] Differential Type Automated LAB HEMATOLOGY METHOD 05/31/2025 5:22 PM EDT [facility] Neutrophils % 89 % LAB HEMATOLOGY METHOD 05/31/2025 5:22 PM EDT [facility] Lymphocytes % 8 % LAB HEMATOLOGY METHOD 05/31/2025 5:22 PM EDT [facility] Monocytes % 2 % LAB HEMATOLOGY METHOD 05/31/2025 5:22 PM EDT [facility] Eosinophils % 0 % LAB HEMATOLOGY METHOD 05/31/2025 5:22 PM EDT [facility] Basophils % 0 % LAB HEMATOLOGY METHOD 05/31/2025 5:22 PM EDT [facility] Immature Granulocytes % 1 % LAB HEMATOLOGY METHOD 05/31/2025 5:22 PM EDT [facility] Neutrophils Absolute 19.82(H) 1.60 - 6.10 10*3/uL LAB HEMATOLOGY METHOD 05/31/2025 5:22 PM EDT [facility] Lymphocytes Absolute 1.84 1.20 - 3.90 10*3/uL LAB HEMATOLOGY METHOD 05/31/2025 5:22 PM EDT [facility] Monocytes Absolute 0.36 0.30 - 0.90 10*3/uL LAB HEMATOLOGY METHOD 05/31/2025 5:22 PM EDT [facility] Eosinophils Absolute 0.08 0.00 - 0.50 10*3/uL LAB HEMATOLOGY METHOD 05/31/2025 5:22 PM EDT [facility] Basophils Absolute 0.09 0.00 - 0.10 10*3/uL LAB HEMATOLOGY METHOD 05/31/2025 5:22 PM EDT [facility] Immature Granulocytes Absolute 0.19(H) 0.00 - 0.06 10*3/uL LAB HEMATOLOGY METHOD 05/31/2025 5:22 PM EDT [facility] Blood Venous blood specimen / Unknown Venipuncture / Unknown 05/31/2025 5:04 PM EDT 05/31/2025 5:13 PM EDT Narrative [facility] - 05/31/2025 5:22 PM EDT Therapeutic decision making should be based on absolute values, rather than percentages. us Steve Veloz MD LAB BLOOD ORDERABLES Final R esult [facility] [address] [place] [address] * (ABNORMAL) Blood gas panel, arterial (05/31/2025 5:04 PM EDT) pH, Arterial 7.35 7.31 - 7.42 LAB HEMATOLOGY METHOD 05/31/2025 5:12 PM EDT [facility] pCO2, Arterial 40 35 - 48 mmHg LAB HEMATOLOGY METHOD 05/31/2025 5:12 PM EDT [facility] pO2, Arterial 79 >70 mmHg LAB HEMATOLOGY METHOD 05/31/2025 5:12 PM EDT [facility] SO2, Measured, Arterial 96 94 - 98 % LAB HEMATOLOGY METHOD 05/31/2025 5:12 PM EDT [facility] Base Excess, Arterial -3.1(L) -2.0 - 3.0 mmol/L LAB HEMATOLOGY METHOD 05/31/2025 5:12 PM EDT [facility] Bicarbonate, Calculated, Arterial 22 22 - 26 mmol/L LAB HEMATOLOGY METHOD 05/31/2025 5:12 PM EDT [facility] Hematocrit, Whole Blood 37.7 34.0 - 45.0 % LAB HEMATOLOGY METHOD 05/31/2025 5:12 PM EDT [facility] Sodium, Whole Blood 142 136 - 145 mmol/L LAB HEMATOLOGY METHOD 05/31/2025 5:12 PM EDT [facility] Potassium, Whole Blood 3.2(L) 3.6 - 4.9 mmol/L LAB HEMATOLOGY METHOD 05/31/2025 5:12 PM EDT [facility] Chloride, Whole Blood 110(H) 97 - 107 mmol/L LAB HEMATOLOGY METHOD 05/31/2025 5:12 PM EDT [facility] Glucose, Whole Blood 166(H) 74 - 99 mg/dL LAB HEMATOLOGY METHOD 05/31/2025 5:12 PM EDT [facility] Ionized Calcium, Whole Blood 4.6 4.6 - 5.1 mg/dL LAB HEMATOLOGY METHOD 05/31/2025 5:12 PM EDT [facility] Lactate, Arterial, Whole Blood 0.7 0.5 - 1.6 mmol/L LAB HEMATOLOGY METHOD 05/31/2025 5:12 PM EDT [facility] Blood Arterial blood specimen / Unknown Arterial Puncture / Unknown 05/31/2025 5:04 PM EDT 05/31/2025 5:11 PM EDT us Steve Veloz MD LAB BLOOD ORDERABLES Final R esult [facility] [address] [place] [address] * Surgical Pathology Exam (05/31/2025 2:44 PM EDT) Case Report Surgical Pathology Case: [id number] Authorizing Provider: Steve Veloz MD Collected: 05/31/2025 1444 Ordering Location: [facility] Received: 05/31/2025 1449 Pathologist: Elaina Katz MD Intraop: Bel Lria MD Specimens: A) - Other (specify site), [...] 4B/5 partial hepatectomy 06/03/2025 4:37 PM EDT [facility] Final Diagnosis A. DARIANA-HEPATIC [...] WITH MILD STEATOSIS. 06/03/2025 4:37 PM EDT [facility] at 1637 EDT Comment:This is an appended report. These results have been appended to a previously preliminary verified report. 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 These results have been appended to a previously preliminary verified report. Intraoperative Consultation A. DARIANA-HEPATIC NODULE DARIANA-HEPATIC NODULE FOR FROZEN: SINGLE LARGE CALCULUS, NEGATIVE FOR TUMOR. TISSUE SURROUNDING STONE IS ABRADED AND CHRONICALLY INFLAMED. 06/03/2025 4:37 PM EDT [facility] Microscopic Description The permanent sections support the frozen section diagnosis. 06/03/2025 4:37 PM EDT [facility] Comment:This is an appended [...] surface. A discrete mass is not identified. 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 Cold Time: 54m KOFI Harris (ASCP) 06/03/2025 4:37 PM EDT [facility] Comment:This is an appended [...] Fin al Result Performing Organization Address City/[facility]/ZIP Co de Phone Number [facility] [address] [place] [address] * Type and screen (05/31/2025 10:27 AM [...] ORDERABLE S Final Result Performing Organization Address [facility] de Phone Number BLOOD BANK [address] [place] [address] documented in this encounter Visit Diagnoses Diagnosis Adenocarcinoma of gallbladder (CMS/HCC)- Primary Malignant neoplasm of gallbladder Adenocarcinoma of gallbladder (CMS/HCC) Malignant neoplasm of gallbladder documented in this encounter Admitting Diagnoses Diagnosis Adenocarcinoma of gallbladder (CMS/HCC) Malignant neoplasm of gallbladder documented in this encounter Administered Medications Inactive Administered Medications - up to 3 most recent administrations Medication Order MAR Action Action Date Dose Rate Site albuterol (Proventil) (2.5 MG/3ML) 0.083% nebulizer solution 2.5 mg 2.5 mg, Nebulization, Every 6 hours PRN, Starting on Pat 06/03/25 at 0652, Until Sat06/08/25 at 1627, Routine, shortness of breath aspirin chewable tablet 81 mg 81 mg, Oral, Daily, First dose on 06/07/25 at 0930, Until Discontinued Given 06/08/2025 8:32 AM EDT 81 mg Given 06/07/2025 10:07 AM EDT 81 mg diphenhydrAMINE-zinc acetate (Benadryl) cream 1 Application Topical, [...] 40 mg L eft Upper Arm (Back) HYDROmorphone (Dilaudid) injection 0.25 mg 0.25 mg, Intravenous, Every 4 hours PRN, Starting on Sat06/06/25 at 1150, Until Sat06/08/25 at 1627, Routine, severe pain lidocaine (Lidoderm) 5 % patch 1 patch 1 patch, Apply externally, Every 24 hours, First dose on Sat06/06/25 at 1330, Until Discontinued, Administer over 12 Hours, Routine Medication Applied 06/08/2025 1:12 PM EDT 1 patch Other Medication Applied 06/07/2025 1:06 PM EDT 1 patch Other Medication Applied 06/06/2025 12:38 PM EDT 1 patch Back methocarbamol (Robaxin) tablet 1,000 mg 1,000 mg, Oral, 4 times daily, First dose on Sat06/03/25 at 1800, Until Discontinued, Routine Given 06/08/2025 8:32 AM EDT 1,000 mg Given 06/07/2025 10:36 PM EDT 1,000 mg Given 06/07/2025 5:07 PM EDT 1,000 mg metoclopramide (Reglan) tablet 10 mg 10 [...] Given 06/06/2025 9:08 AM EDT 40 mg rosuvastatin (Crestor) tablet 10 mg 10 mg, [...] Christi Harper RN)1306 (Given - Provider: Christi Harper RN)1707 (Given - Provider: Christi Harper RN)2236 (Given - Provider: Lolita Cornelius RN) 0832 [...] Cornelius RN) 0538 (Given - Provider: Lolita Corenlius RN)1305 (Given - Provider: Christi Harper RN) metoclopramide (Reglan) tablet 10 mg 10 mg, Oral, Every 8 hours, First dose on Sat06/07/25 at 2200, Until Discontinued, Routine 2236 (Given - Provider: Lloita Cornelius RN) 0439 (Given - Provider: Lolita [...] Nebulization, Every 6 hours PRN, Starting on Pat 06/03/25 at 0652, Until Sat06/08/25 at 1627, Routine, [...] (See Alternative - Provider: Lolita Cornelius RN) 025 (See Alternative - Provider: Lolita Cornelius RN)1017 (See Alternative - Provider: Rishi Ramirez, ELIEZER) oxyCODONE (Roxicodone) immediate release tablet 5 mg(Linked Group 2) 5 mg, Oral, Every 4 hours PRN, Starting on 06/06/25 at 1150, Until Sat06/08/25 at 1627, Routine, moderate pain 194 (Given - Provider: Lolita Cornelius RN) 2016 (Given - Provider: Lolita Cornelius RN) 252 (Given - Provider: Lolita Cornelius RN)101 (Given - Provider: Rishi Ramirez RN) Linked [...] PRN, Starting on 06/06/25 at 1150, Until 06/08/25 at 1627, Routine, severe pain documented in this encounter Additional Health Concerns Assessment Noted Time A fall risk assessment has been complete d for the patient 05/25/2025 10:53 AM EDT A Body Mass Index follow-up plan has been documented for the patient 06/08/2025 1:13 PM EDT documented as of this encounter Care Teams Cage Maker Machine Relationship Specialty Start Date End Date Efrain Angeles MD [address] [place] [id number] PCP - General 04/03/24 documented as of this encounter
--- OUTSIDE RECORDS SUMMARY | 2025-05-31 13:23 | XMS_ITS | Encounter Summary ---
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] Procedures OH RESEC LIVER,PART LOBECTOMY OH LAP,DIAGNOSTIC ABDOMEN diagnostic laparoscopy, open partial hepatectomy, lymph node dissection LAPAROSCOPY, DIAGNOSTIC CavSteve leon MD [address] [place] [phone] Phone: tel: fax: [facility] [address] [place] [phone] Phone: tel: Referral ID Status Reason Start Date Expiration Date Visits Re quested Visits Authorized [id number] 1 1 Encounter Details Date Type Department Care Team (Late st Contact Info) Description 05/31/2025 1:23 PM EDT Anesthesia Event [facility] [address] [place] [phone] Matteo Quiros MD [address] [place] [phone] Sheri Ott DO [address] [place], [place] [id number] Anesthesia Record Procedure Summary Procedure Name Responsible [...] acknowledgement of understanding. 1655 An Stop Meds Name Total lidocaine-EPINEPHrine (XYLOCAINE W/EPI) 1.5 %-1:929041 73 mL fentaNYL (SUBLIMAZE) 300 mcg midazolam (VERSED) 1 mg rocuronium (ZeMuron) injection 10 mg/mL 90 mg propofol (Diprivan) injection 10 mg/mL 1 00 mg dexamethasone (Decadron) injection 4 mg/ mL 4 mg phenylephrine (Tremayne-Synephrine) prefilled syringe 1 mg/10 mL 400 mcg ondansetron (Zofran) injection 2 mg/mL 4 mg sugammadex (Bridion) injection 100 mg/mL 100 mg cefOXitin (Mefoxin) injection 2 g 4 g hydrALAZINE (Apresoline) injection 7.5 m g ropivacaine (Naropin) injection 0.2 % 2 mg lactated Ringer's infusion 300 mL sodium chloride 0.9 % infusion 800 mL * Agents Name O2 * Blood No blood administrations on file. Lines, Drains, and Airways Type Details Placement Removal Wound 05/31/25; 1416; N; Y es; Surgical; Open Surg; Abdomen; Upper 05/31/25 1416 by Yoan Schilling RN Peripheral IV Placement Date: 05/17; Placement Time: 1029; Catheter Size: 18 G; Orientation: Left; Location: Antecubital; Site Prep: Chlorhexidine ; Local Anesth: [place]; Technique: Anatomical landmarks; Inserted by: darron; Insertion Attempts: 1; Patient Tolerance: Tolerated well; Removal Date: 06/03/25; Removal Time: 181; Removal Reason: Catheter damage 05/31/25 1029 by Moy Varma RN 06/03/25 181 by Suyapa Washington Epidural Placement Date: 05/17; [...] Removal Time: 1641 05/31/25 1328 by Sheri Ott, DO 05/31/25 1641 by Eduardo James CRNA [...] Peripheral IV Placement Date: 05/17; Placement Time: 1420 (created via procedure documentation); Catheter Size: 18 G; Orientation: Right; Location: Hand; Technique: Anatomical landmarks; Insertion Attempts: 1; Removal Date: 06/04/25; Removal Time: 0920; Removal Reason: Leaking 05/31/25 1420 by Sheri Ott, DO 06/04/25919 by Saniya Dennis, RN Arterial Line Placement Date: 05/17; Placement [...] any time in the past 12 m [facility], were you homeless or living in a jail (including now)? No 06/01/2025 [facility] Utilities Answer Date Recorded In the past 12 months has [employer], gas, oil, or water company threatened to shut off services in your home? No 06/01/2025 Comments No Sex and Gender Information Value Date Recorded Sex Assigned at Female 05/31/2025 10:07 AM EDT Legal Sex Female 6:24 PM EDT Gender Identity Female 05/31/2025 10:07 AM EDT Sexual Orientation Not on file documented as of this encounter Functional Status * Calculated C-SSRS Risk Score (Lifetime/Recent) Answer Date of Assessment Author No Risk Indicated 05/31/2025 10:07 AM EDT Moy Waddell RN * Question Answer Date of Assessment Author 1. Wish to be (Past 1 Month) No 025 10:07 AM EDT Moy Varma RN 2. Non-Specific Active Suici nelda Thoughts (Past 1 Month) No 05/31/2025 10:07 AM EDT Charles Vamra RN 6. Suicidal Behavior (Lifetime) No 10:07 AM EDT Moy Varma RN documented as of this encounter Miscellaneous Notes * Anesthesia Postprocedure Evaluation - Eduardo James CRNA - 05/31/2025 4:58 PM EDT Patient: Alyssia Holly Anesthesia Type: general, epidural Vitals Value Taken Time BP 128/62 05/31/25 16:55 Temp 36.4 ??C (97.5 ??F) 05/31/25 16:57 Pulse 91 05/31/25 16:57 Resp 14 05/31/25 16:57 SpO2 99 % 05/31/25 16:55 Vitals shown include unfiled device data. Anesthesia Post Evaluation Patient location during evaluation: PACU Patient participation: complete - patient participated Level of consciousness: awake Pain management: adequate (pain score 0-3) Airway patency: natural airway Cardiovascular status: acceptable Respiratory status: acceptable, face mask and nonlabored ventilation Hydration status: acceptable Nausea/Vomiting: No No notable events documented. * Anesthesia Procedure Notes - Sheri Ott DO - 05/31/2025 2:20 PM EDT Associated Order(s): Arterial Line Arterial Line: An arterial line was placed. Procedure performed using ultrasound guidance in the OR for the following indication(s): continuousblood pressure monitoring and blood sampling needed. A 20 gauge (size), 1 and 3/4 inch (length), Arrow (type) catheter was placed into the Left radial artery and secured by tape. Seldinger technique used Staffing Performed: Resident Anesthesiologist: Matteo Quiros MD Resident: Sheri Ott DO Cosigned by Matteo Quiros MD at 05/31/2025 2:27 PM EDT Associated attestation - Matteo Quiros MD - 05/31/2025 2:27 PM EDT I was present during all critical and zafar portions of the procedure(s) and immediately available [facility] services the entire duration. See resident note for details. * Anesthesia Procedure Notes - Sheri Ott DO - 05/31/2025 2:20 PM EDT Associated Order(s): Peripheral IV Peripheral IV Placement Needle size: 18 G Location: hand Technique: anatomical landmarks Attempts: 1 Cosigned by Matteo Quiros MD at 05/31/2025 2:26 PM EDT Associated attestation - Matteo Quiros MD - 05/31/2025 2:26 PM EDT I was present during all critical and zafar portions of the procedure(s) and immediately available [facility] services the entire duration. See resident note for details. * Anesthesia Procedure Notes - Sheri Ott DO - 05/31/2025 2:18 PM EDT Associated Order(s): Airway Airway Date/Time: 05/31/2025 1:28 PM Reason: elective Airway not difficult General Information and Staff Patient location during procedure: OR Anesthesiologist: Matteo Quiros MD Resident: Sheri Ott DO Performed: Resident Patient Condition Indications for airway management: anesthesia Patient position: sniffing Final Airway Details Final airway type: endotracheal airway Successful airway: ETT Cuffed: yes Successful intubation technique: direct laryngoscopy Adjuncts used in placement: intubating stylet Endotracheal tube insertion site: oral Blade: Amanda Blade size: #3 ETT size (mm): 7.5 Cormack-Lehane Classification: grade I - full view of glottis Placement verified by: chest auscultation and capnometry Measured from: lips ETT to lips (cm): 21 Additional Comments Atraumatic. No change to dentition. Cosigned by Matteo Quiros MD at 05/31/2025 2:26 PM EDT Associated attestation - Matteo Quiros MD - 05/31/2025 2:26 PM EDT I was present during all critical and zafar portions of the procedure(s) and immediately available [facility] services the entire duration. See resident note for details. * Anesthesia Procedure Notes - Willie Callahan MD - 05/31/2025 11:33 AM EDT Associated Order(s): Epidural Block Epidural Block Patient location during procedure: OB Start time: 05/31/2025 11:12 AM End time: 05/31/2025 11:28 AM Reason for block: post-op pain management Block is at surgeon's request Staffing Performed: Resident Anesthesiologist: Pauline Mohamud MD Resident: Willie Callahan MD Preanesthetic Checklist Completed: patient identified, IV checked, site marked, risks and benefits discussed, surgical consent, monitors and equipment checked, pre-op evaluation and timeout performed Block Placement Patient position: sitting Prep: ChloraPrep and site prepped and draped Patient monitoring: heart rate and continuous pulse ox Approach: midline Location: T6-T7 Needle Needle type: Tuohy Needle gauge: 17 G Needle length: 3.5 in Needle insertion depth (cm): 5 Catheter size: 19 G Catheter at skin depth (cm): 10 Test dose: negative, lidocaine 1.5% with epinephrine 1-to-200,000 and lidocaine 1.5% with epinephrine 1:200,000 Medications Administered: midazolam (VERSED) - Intravenous 1 mg - 05/31/2025 11:12:00 AM fentaNYL (SUBLIMAZE) - Intravenous 50 mcg - 05/31/2025 11:12:00 AM lidocaine-EPINEPHrine (XYLOCAINE W/EPI) 1.5 %-1:355840 - Epidural 3 mL - 05/31/2025 11:12:00 AM Additional Notes After identification of superficial landmarks the skin was prepped with Dura- Prep. Sterile drape placed. Skin anesthetized with 1% lidocaine. Tuohy needle then inserted and directed medially and cephalad with SHAUNA at 5 cm. Catheter threaded easily and inserted 5 cm into the space. Secured at the skin at 10 cm. Tested with 1.5% lidocaine with 1:200k epi 3 cc negative for IV or SA dose. Cosigned by Pauline Mohamud MD at 05/31/2025 3:01 PM EDT Associated attestation - Pauline Mohamud MD - 05/31/2025 3:01 PM EDT I was present during all critical and zafar portions of the procedure(s) and immediately available [facility] services the entire duration. See resident note for details. * Anesthesia Preprocedure Evaluation - Matteo Quiros MD - 05/31/2025 11:02 AM EDT No anesthesia staff entered. Patient: Alyssia Holly HPI Alyssia Holly is a 74 y.o. female with PMH of HTN, adenocarcinoma of the glabladder s/p shannan, perforated gastric ulcer, colon ca, kidney stones, cervical ca and arthritis who presents with Adenocarcinoma of gallbladder (CMS/HCC), now for diagnostic laparoscopy, open partial hepatectomy, lymph node dissection (N/A), LAPAROSCOPY, DIAGNOSTIC (N/A) Procedure Information Date/Time: 05/31/25 1150 Procedures: diagnostic laparoscopy, open partial hepatectomy, lymph node dissection - RT 3h LAPAROSCOPY, DIAGNOSTIC Location: [facility] [place] [facility] Surgeons: Steve Veloz MD Relevant Problems No relevant active problems ALLERGIES Allergies[1] NPO STATUS Date of Last Liquid: 05/30/25 Time of Last Liquid: 1999 Date of Last Solid: 05/30/25 Time of Last Solid: 1999 Time of Last Void: 729 Past Medical History[2] AIRWAY HISTORY Airway Detailed Review Displaying the 20 most recent records No records found. MEDICATIONS Outpatient Current Outpatient Medications Medication Instructions albuterol 108 [...] (Gemtesa) 75 MG tablet 1 tablet, Daily Scheduled Current Scheduled Medications[3] PRNs Current PRN Medications[4] SURGICAL HX: Surgical History[5] SOCIAL HX: Social History[6] OBJECTIVE DATA LABS Lab Results Component Value Date WBC 11.51 (H) 05/11/2025 HGB 12.5 05/11/2025 HCT 38.8 05/11/2025 MCV 92 05/11/2025 PLT 315 05/11/2025 Lab Results Component Value Date CALCIUM 9.6 05/11/2025 BUN 11 05/11/2025 CREATININE 0.55 (L) 05/11/2025 BCR 20 05/11/2025 NA 139 05/11/2025 K 3.8 05/11/2025 CL 103 05/11/2025 CO2 25 05/11/2025 Type and Screen ABO/Rh Date Value Ref Range Status 05/31/2025 B Positive Preliminary No results found for: HGBA1C Lab Results Component Value Date GLUCOSE 111 (H) 05/11/2025 ABG No results found for: PHART , HDM9SFE , PO2ART , SO2ART , BEART , UCL2CQE , HCTART , SODIUMART , POTASSIUMART , POCTCL , POCGLU , IONCALART , LACTATE No results found for: PH , PCO2 , PO2 , R3NWRZHF , BASEEXC , HCTSYR , KSYR , CLSYR , GLUSYR , CAION , LACTATE ECHO No echocardiogram results found for the past 12 months PFTs No results found for: JFC7TZW , BVE3VOVK , GHP7IVA , FVCPRED BP Readings from Last 5 Encounters: 05/31/25 (!) 143/85 05/25/25 102/65 05/11/25 111/71 04/20/24 105/75 04/03/24 (!) 151/80 Physical Exam Airway Mallampati: I Mouth opening: normal TM distance: >3 FB Neck ROM: full Cardiovascular Rhythm: regular Rate: normal Dental (+) lower dentures, upper dentures Pulmonary Breath sounds clear to auscultation Neurological Oriented: normal to time, normal to place and normal to person and oriented to person, place and time Skin Skin: warm and dry Musculoskeletal Extremities Anesthesia Plan ASA 3 Plan was reviewed with: resident Anesthesia technique(s) discussed with the patient/family: general and epidural Anesthesia plan agreed upon was: general and epidural Anesthetic plan and risks discussed with patient. Anesthesia Evaluation [1] Allergies Allergen Reactions Other Swelling Aerosol disinfectant- especially Lysol Nickel Rash [2] Past Medical History: Diagnosis Date Personal history of other diseases of the circulatory system History of hypertension Personal history of urinary calculi Personal history of renal calculi [3] fentaNYL, , , heparin (porcine), 5,000 Units, Subcutaneous, Once midazolam, , , [4] PRN medications: fentaNYL, midazolam, sodium chloride [5] Past Surgical History: Procedure Laterality Date BREAST AUGMENTATION Bilateral 1978 CATARACT EXTRACTION N/A Cataract Surgery from [facility] CHOLECYSTECTOMY N/A Cholecystectomy from [facility] HIP ARTHROPLASTY Bilateral LUMBAR FUSION L4-L5 NASAL SEPTUM SURGERY N/A Nasal Septal Deviation Repair from [facility] OTHER SURGICAL HISTORY N/A Percutaneous Lithotomy from [facility] OTHER SURGICAL HISTORY gastric ulcer perferation RIGHT COLECTOMY TONSILLECTOMY N/A Tonsillectomy from [facility] [6] Social History Tobacco Use Smoking status: Never Smokeless tobacco: Never Vaping Use Vaping status: Never Used Substance Use Topics Alcohol use: No Drug use: Never documented in this encounter Plan of Treatment Not on file documented as of this encounter Procedures Procedure Name Priority Date/Time Associated Diagnosis Comments PB ANESTHESIA NON-TIMED PROCEDURE PLACEHOLDER Routine 05/31/2025 2:20 PM EDT ANESTHESIA PERIPHERAL IV PLACEMENT Routine 05/31/2025 2:20 PM EDT PB ANESTHESIA PLACEHOLDER Routine 05/31/2025 1:28 PM EDT OH AN ELECTIVE ENDOTRACHEAL AIRWAY Routine 05/31/2025 1:28 PM EDT PB ANESTHESIA NON-TIMED PROCEDURE PLACEHOLDER Routine 05/31/2025 11:12 AM EDT documented in this encounter Results * PB ANESTHESIA NON-TIMED PROCEDURE PLACEHOLDER (05/31/2025 2:20 PM EDT) Narrative Matteo Quiros MD - 05/31/2025 2:20 PM EDT Matteo Quiros MD 05/31/2025 2:27 PM Arterial Line: An arterial line was placed. Procedure performed using ultrasound guidance in the OR for the following indication(s): continuous blood pressure monitoring and blood sampling needed. A 20 gauge (size), 1 and 3/4 inch (length), Arrow (type) catheter was placed into the Left radial artery and secured by tape. Seldinger technique used Staffing Performed: Resident Anesthesiologist: Matteo Quiros MD Resident: Sheri Ott DO Matteo Quiros MD ANESTHESIA ORDERABLES Final R esult * Peripheral IV (05/31/2025 2:20 PM EDT) Narrative Matteo Quiros MD - 05/31/2025 2:20 PM EDT Matteo Quiros MD 05/31/2025 2:26 PM Peripheral IV Placement Needle size: 18 G Location: hand Technique: anatomical landmarks Attempts: 1 Matteo Quiros MD ANESTHESIA ORDERABLES Final R esult * OH AN ELECTIVE ENDOTRACHEAL AIRWAY, PB ANESTHESIA PLACEHOLDER (05/31/2025 1:28 PM EDT) Narrative Matteo Quiros MD - 05/31/2025 1:28 PM EDT Matteo Quiros MD 05/31/2025 2:26 PM Airway Date/Time: 05/31/2025 1:28 PM Reason: elective Airway not difficult General Information and Staff Patient location during procedure: OR Anesthesiologist: Matteo Quiros MD Resident: Sheri Ott DO Performed: Resident Patient Condition Indications for airway management: anesthesia Patient position: sniffing Final Airway Details Final airway type: endotracheal airway Successful airway: ETT Cuffed: yes Successful intubation technique: direct laryngoscopy Adjuncts used in placement: intubating stylet Endotracheal tube insertion site: oral Blade: Amanda Blade size: #3 ETT size (mm): 7.5 Cormack-Lehane Classification: grade I - full view of glottis Placement verified by: chest auscultation and capnometry Measured from: lips ETT to lips (cm): 21 Additional Comments Atraumatic. No change to dentition. Matteo Quiros MD ANESTHESIA ORDERABLES Final R esult * PB ANESTHESIA NON-TIMED PROCEDURE PLACEHOLDER (05/31/2025 11:12 AM EDT) Narrative Pauline Mohamud MD - 05/31/2025 11:12 AM EDT Pauline Mohamud MD 05/31/2025 3:01 PM Epidural Block Patient location during procedure: OB Start time: 05/31/2025 11:12 AM End time: 05/31/2025 11:28 AM Reason for block: post-op pain management Block is at surgeon's request Staffing Performed: Resident Anesthesiologist: Pauline Mohamud MD Resident: Willie Callahan MD Preanesthetic Checklist Completed: patient identified, IV checked, site marked, risks and benefits discussed, surgical consent, monitors and equipment checked, pre-op evaluation and timeout performed Block Placement Patient position: sitting Prep: ChloraPrep and site prepped and draped Patient monitoring: heart rate and continuous pulse ox Approach: midline Location: T6-T7 Needle Needle type: Tuohy Needle gauge: 17 G Needle length: 3.5 in Needle insertion depth (cm): 5 Catheter size: 19 G Catheter at skin depth (cm): 10 Test dose: negative, lidocaine 1.5% with epinephrine 1-to-200,000 and lidocaine 1.5% with epinephrine 1:200,000 Medications Administered: midazolam (VERSED) - Intravenous 1 mg - 05/31/2025 11:12:00 AM fentaNYL (SUBLIMAZE) - Intravenous 50 mcg - 05/31/2025 11:12:00 AM lidocaine-EPINEPHrine (XYLOCAINE W/EPI) 1.5 %-1:671610 - Epidural 3 mL - 05/31/2025 11:12:00 AM Additional Notes After identification of superficial landmarks the skin was prepped with Dura-Prep. Sterile drape placed. Skin anesthetized with 1% lidocaine. Tuohy needle then inserted and directed medially and cephalad with SHAUNA at 5 cm. Catheter threaded easily and inserted 5 cm into the space. Secured at the skin at 10 cm. Tested with 1.5% lidocaine with 1:200k epi 3 cc negative for IV or SA dose. Pauline Mohamud MD ANESTHESIA ORDERABLES Fin al Result documented in this encounter Visit Diagnoses Not on filedocumented in this encounter Administered Medications Inactive Administered Medications - up to 3 most recent administrations Medication Order MAR Action Action Date Dose Rate Site cefOXitin (Mefoxin) injection 2 g 2 g, Intravenous, Once, 1 dose, On Sat05/31/25 at 1515, Routine, Anesthesia Intraprocedure Given 05/31/2025 3:56 PM EDT 2 g Given 05/31/2025 2:00 PM EDT 2 g dexamethasone (Decadron) injection Intravenous, As needed, Starting on Sat05/31/25 at 1409, Until Sat05/31/25 at 1658, Routine, Anesthesia Intraprocedure Given 05/31/2025 2:09 PM EDT 4 mg fentaNYL (Sublimaze) injection Intravenous, Once PRN Procedure, Starting on Sat05/31/25 at 1112, Until Sat05/31/25 at 1630, Routine, Anesthesia Intraprocedure Given 05/31/2025 4:30 PM EDT 100 mcg Given 05/31/2025 2:36 PM EDT 25 mcg Given 05/31/2025 2:14 PM EDT 50 mcg hydrALAZINE (Apresoline) injection Intravenous, As needed, Starting on Sat05/31/25 at 1420, Until Sat05/31/25 at 1658, Routine, Anesthesia Intraprocedure Given 05/31/2025 3:02 PM EDT 5 mg Given 05/31/2025 2:20 PM EDT 2.5 mg lactated Ringer's infusion 20 mL/hr, Intravenous, Continuous, Starting on Sat05/31/25 at 1100, Until Sat06/02/25 at 0626, Routine New Bag 05/31/2025 1:23 PM EDT lidocaine-EPINEPHrine (PF) (Xylocaine W/EPI) 1.5 %-1:460961 injection Epidural, Once PRN Procedure, Starting on Sat05/31/25 at 1112, Until Sat05/31/25 at 1326, Routine, Anesthesia Intraprocedure Given 05/31/2025 1:26 PM EDT 70 mL Given 05/31/2025 11:12 AM EDT 3 mL midazolam (Versed) injection Intravenous, Once PRN Procedure, Starting on Sat05/31/25 at 1112, Until Sat05/31/25 at 1112, Routine, Anesthesia Intraprocedure Given 05/31/2025 11:12 AM EDT 1 mg ondansetron (Zofran) injection Intravenous, As needed, Starting on Sat05/31/25 at 1625, Until Sat05/31/25 at 1658, Routine, Anesthesia Intraprocedure Given 05/31/2025 4:25 PM EDT 4 mg phenylephrine in NS (Tremayne-Synephrine) 100 mcg/mL prefilled syringe Intravenous, As needed, Starting on Sat05/31/25 at 1340, Until Sat05/31/25 at 1658, Routine, Anesthesia Intraprocedure Given 05/31/2025 3:35 PM EDT 100 mcg Given 05/31/2025 1:59 PM EDT 100 mcg Given 05/31/2025 1:40 PM EDT 100 mcg propofol (Diprivan) injection Intravenous, As needed, Starting on Sat05/31/25 at 1326, Until Sat05/31/25 at 1658, Routine, Anesthesia Intraprocedure Given 05/31/2025 1:26 PM EDT 100 mg rocuronium (ZeMuron) injection Intravenous, As needed, Starting on Sat05/31/25 at 1326, Until Sat05/31/25 at 1658, Routine, Anesthesia Intraprocedure Given 05/31/2025 3:43 PM EDT 10 mg Given 05/31/2025 1:26 PM EDT 80 mg ropivacaine (PF) (Naropin) 0.2 % epidural infusion Injection, As needed, Starting on Sat05/31/25 at 1605, Until Sat05/31/25 at 1658, Routine, Anesthesia Intraprocedure Given 05/31/2025 4:05 PM EDT 2 mg sodium chloride 0.9 % infusion Intravenous, Continuous PRN, Starting on Sat05/31/25 at 1335, Until Sat05/31/25 at 1658, Routine New Bag 05/31/2025 1:35 PM EDT sugammadex (Bridion) 100 MG/ML injection Intravenous, As needed, Starting on Sat05/31/25 at 1633, Until Sat05/31/25 at 1658, Routine, Anesthesia Intraprocedure Given 05/31/2025 4:33 PM EDT 100 mg documented in this encounter Additional Health Concerns Assessment Noted Time A fall risk assessment has been complete d for the patient 05/25/2025 10:53 AM EDT A Body Mass Index follow-up plan has been documented for the patient 06/08/2025 1:13 PM EDT documented as of this encounter Care Teams Guest Advisor Relationship Specialty Start Date End Date Efrain Angeles MD [address] [place] [id number] PCP - General 04/03/24 documented as of this encounter
--- OUTSIDE RECORDS SUMMARY | 2025-06-16 11:30 | XMS_ITS | Encounter Summary ---
Author Organization Healthcare Address [address] [address] Care Team Providers Care Rosin Barrel Filler Name Role Phone Efrain Angeles MD Primary Care Provider [phone] Reason for Visit * Reason Comments Follow-up Gallbladder cancer Encounter Details Date Type Department Care Team (Latest Contact Info) Description 06/16/2025 11:30 AM EDT Office Visit [facility] Multidisciplinary Oncology Clinic [address] [place] [address] Reina Ortega, [employer] [address] [place] [address] Gallbladder cancer (CMS/HCC) (Primary Dx) Social History [...] any time in the past 12 m [facility], were you homeless or living in a half-way (including now)? No 06/01/2025 [facility] Utilities Answer Date Recorded In the [...] Sign Reading Time Taken Comments Blood Pressure 109/71 06/16/2025 10:55 AM EDT Pulse 88 06/16/2025 10:55 AM EDT Temperature 36.9 C (98.5 F) 06/16/2025 10:55 AM EDT Respiratory Rate 16 06/16/2025 10:5 5 AM EDT Oxygen Saturation 95% 06/16/2025 10: 55 AM EDT Inhaled Oxygen Concentration - - Weight 62.1 kg (136 lb 14.5 oz) 025 10:55 AM EDT Height 165.1 cm (5' 5 ) 06/16/2025 10:5 5 AM EDT Body Mass Index 22.78 06/16/2025 10:55 AM EDT documented in this encounter Functional Status * Over the past 2 weeks, how often have you been bothered by any of the following problems? Question Answer Date of Assessment Author Little interest or pleasure in doing things Not at all 06/16/2025 11:06 AM EDT Kalina Arellano Feeling down, depressed, or hopeless Not at all 06/16/2025 11:06 AM EDT Kalina Arellano Patient Health Questionnaire -2 Score 0 06/16/2025 11:06 AM EDT Kalina Arellano * Question Answer Date of Assessment Author Thoughts that you would be b davon off or hurting yourself in some way Not at all 06/16/2025 11:06 AM EDT Kalina Arellano documented as of this encounter Miscellaneous Notes * Progress Notes - Reina Ortega APRN - 06/16/2025 11:30 AM EDT Surgical Oncology Outpatient [Progress note] Verbal consent was obtained to use ambient listening technology to assist in the documentation of the encounter: yes Chief complaint: Alyssia Holly is a 74 y.o. seen in post op follow up s/p diagnostic laparoscopy, exploratory laparotomy, portal lymph node dissection, segment 4B/5 partial hepatectomy, omental flap by Dr. Veloz. History of Present Illness: History of Present Illness Alyssia Holly is a 74 y.o. female with a past medical history of HTN, PUD, cervical cancer (29y/o), colon cancer (rsxn 2010), who presented to [facility] as a scheduled surgical intervention for management of adenocarcinoma of gallbladder. On 05/31/2025, the patient underwent diagnostic laparoscopy, exploratory laparotomy, portal lymph node dissection, segment 4B/5 partial hepatectomy, omental flap by Dr. Veloz. The procedure was tolerated well with no intraoperative complications. . The remaining hospital course was uncomplicated. She reports improvement in her stability and mobility, with minimal pain managed by Tylenol 500 mg and controlled breathing exercises. Her diet is normal, avoiding spicy foods due to ongoing stomach healing from a perforated ulcer. She attempted to consume barbecue yesterday but found it disagreeable. Her diet primarily consists of fruits, vegetables, and white meat. She reports no nausea, vomiting, fevers, or chills. Her bowel movements are regular, with no instances of diarrhea or constipation. She maintains good hydration, consuming between 70 to 80 ounces of flavored water daily. She reports itching at the incision site and has a blood blister under it. She has been informed that she will need to take Protonix indefinitely. She has not required most of the medications prescribed post-surgery once she returned home. She has been informed that there is no remaining cancer. This is herthird bout with cancer. She has tried various flavors of protein shakes but finds them unpalatable.She also consumes protein bars and strives to maintain a healthy diet. She has lost 100 pounds fromher peak weight of 250 pounds and has recently lost an additional 20 pounds. She is scheduled to see Dr. López tomorrow. PAST SURGICAL HISTORY: Liver resection Perforated ulcer repair SOCIAL HISTORY Marital Status: Exercise: Walking Diet: Fruits, vegetables, white meat, avoiding spicy foods Treatment History: 2010: Diagnosed with colon cancer and underwent surgical resection with no adjuvant therapy. Last colonoscopy July 2023 is unremarkable. Follows with Dr. Ebony Albrecht annually and medical oncology clinic at [facility]. 03/01/2025: CT scan of abdomen and pelvis [...] for potential malignancy. Pathology was sent to [facility] which noted small area of adenocarcinoma [...] consult with Dr. López medical oncology at [facility]. Patient appears to have stage IIA or 2B disease. Patient had lab work including CA [address] was also ordered to rule out any distant metastases. Plan is that if all testing is unremarkable she will be referred to [facility] clinic for surgical evaluation. Referred to Surgical Oncology at [facility]. 05/11/25: SurgOnc Consult. Ca19-9 39.5. Discussed with [...] open partial hepatectomy, portal LND on 05/31/25. 05/31/2025: the patient underwent diagnostic laparoscopy, exploratory laparotomy, portal lymph node dissection, segment 4B/5 partial hepatectomy, omental flap by Dr. Veloz. The procedure was toleratedwell with no intraoperative complications. . The remaining hospital course was uncomplicated. 06/16/2025: SurgOn post op follow up. Patient doing well with no acute issues. Mascoutah removed and replaced with steri strips. Lab values reve stable findings. Plan to follow up with Dr. Veloz in 3 weeks. Past Medical History: Past Medical History Pertinent Negatives[1] Past Surgical History: Surgical History[2] Social History: Tobacco: Tobacco Use: Low Risk (06/03/2025) Patient History Smoking Tobacco Use: Never Smokeless Tobacco Use: Never Passive Exposure: Not on file Alcohol: Alcohol Use: Not on file Illicit drug use: Social History Substance and Sexual Activity Drug Use Never Allergies: Allergies[3] Family Medical History: family history is not on file. Home Medications: Prior to Admission medications Medication Sig Start Date End Date Taking? Authorizing Provider albuterol 108 (90 Base) MCG/ACT inhaler Inhale 2 puffs as needed for shortness of breath or wheezing. Provider, Historical aspirin 81 MG EC tablet Take 1 tablet by mouth daily. Provider, Historical enoxaparin (Lovenox) 40 MG/0.4ML solution prefilled syringe Inject 0.4 mL under the skin daily for 19 days. 06/09/25 06/28/25 Margarette Diaz APRN fluticasone-salmeterol (Advair Diskus) 100-50 MCG/ACT diskus inhaler Inhale 1 puff as needed. 08/06/24 Provider, Historical lidocaine (Lidoderm) 5 % patch Apply 1 patch topically 1 (one) time each day at the same time over 12 hours. Remove & discard patch within 12 hours or as directed by MD. 06/08/25 Margarette Diaz APRN [Paused] losartan (Cozaar) 50 MG tablet Take 0.5 tablets by mouth daily. Wait to take this until your doctor or other care provider tells you to start again. 03/19/24 Provider, Historical methocarbamol (Robaxin) 500 MG tablet Take 2 tablets by mouth 4 times a day. 06/08/25 Margarette Diaz APRN metoclopramide (Reglan) 10 MG tablet Take 1 tablet by mouth every 8 hours. 06/08/25 07/08/25 Margarette Diaz APRN naloxone (Narcan) 4 mg/0.1 mL nasal spray 1. Give 1 spray in nostril for no/slow breathing or cannot wake after opioid use 2. Call 911 3. Repeat in other nostril if symptoms continue 06/08/25 Margarette Diaz APRN ondansetron ODT (Zofran-ODT) 4 MG disintegrating tablet Dissolve 1 tablet on the tongue every 6 hours as needed for nausea or vomiting. 06/08/25 Margarette Diaz APRN oxyCODONE (Roxicodone) 5 MG immediate release tablet Take 1 tablet by mouth every 6 hours as neededfor moderate pain. 06/08/25 Margarette Diaz APRN pantoprazole (Protonix) 40 MG EC tablet Take 1 tablet by mouth nightly. 04/07/25 Provider, Historical [Paused] potassium chloride CR (Klor-Con) 10 MEQ ER tablet Take 1 tablet by mouth 2 times a day. Wait to take this until your doctor or other care provider tells you to start again. 03/19/24 Provider, Historical rosuvastatin (Crestor) 10 MG tablet Take 1 tablet by mouth 3 times a week. Takes --03/19/24 Provider, Historical senna-docusate sodium (Senokot-S) 8.6-50 MG tablet Take 1 tablet by mouth daily. 06/08/25 Margarette Diaz APRN [Paused] triamterene-hydrochlorothiazide (Maxzide-25) 37.5-25 MG tablet Take 0.5 tablets by mouth daily. Wait to take this until your doctor or other care provider tells you to start again. Provider, Historical Vibegron (Gemtesa) 75 MG tablet Take 1 tablet by mouth Daily. 03/19/24 Provider, Historical Review of Systems: Review of Systems Constitutional: Negative for chills, fatigue and fever. HENT: Negative. Eyes: Negative. Respiratory: Negative. Cardiovascular: Negative. Gastrointestinal: Negative for abdominal distention, abdominal pain, constipation, diarrhea, nauseaand vomiting. Endocrine: Negative. Genitourinary: Negative. Musculoskeletal: Negative. Skin: Negative. Neurological: Negative. Hematological: Negative. Psychiatric/Behavioral: Negative. Physical exam: Physical Exam Constitutional: Appearance: Normal appearance. She is normal weight. HENT: Head: Normocephalic. Eyes: Pupils: Pupils are equal, round, and reactive to light. Cardiovascular: Rate and Rhythm: Normal rate and regular rhythm. Pulses: Normal pulses. Heart sounds: Normal heart sounds. Pulmonary: Effort: Pulmonary effort is normal. Breath sounds: Normal breath sounds. Abdominal: General: Abdomen is flat. Bowel sounds are normal. Palpations: Abdomen is soft. Musculoskeletal: General: Normal range of motion. Cervical back: Normal range of motion and neck supple. Skin: General: Skin is warm and dry. Capillary Refill: Capillary refill takes less than 2 seconds. Neurological: General: No focal deficit present. Mental Status: She is alert and oriented to person, place, and time. Mental status is at baseline. Psychiatric: Mood and Affect: Mood normal. Behavior: Behavior normal. Thought Content: Thought content normal. Judgment: Judgment normal. Physical Exam Integument/Skin: Incision appears good with no redness, swelling, or drainage. Midline abdominal incision c/d/I with no signs of infection. Radha intact. Mascoutah removed and replaced with steri strips. Objective: All laboratory, images, tracings, and vital sign data are personally reviewed unless otherwise noted. ECOG-0 Life expectancy greater then 3 months VITALS Visit Vitals BP 109/71 Pulse 88 Temp 36.9 ??C (98.5 ??F) Ht 1.651 m (5' 5 ) Wt 62.1 kg (136 lb 14.5 oz) SpO2 95% BMI 22.78 kg/m?? LABS Lab Results Component Value Date WBC 9.69 06/16/2025 HGB 12.4 06/16/2025 HCT 38.0 06/16/2025 PLT 613 (H) 06/16/2025 NA 137 06/16/2025 K 3.8 06/16/2025 CL 102 06/16/2025 CO2 22 06/16/2025 BUN 10 06/16/2025 CREATININE 0.74 06/16/2025 GLUCOSE 94 06/16/2025 CALCIUM 9.8 06/16/2025 MG 1.6 (L) 06/08/2025 PHOS 4.1 06/08/2025 Lab Results Component Value Date TP 7.0 06/16/2025 ALBUMIN 4.0 06/16/2025 AST 25 06/16/2025 ALT 18 06/16/2025 BILITOT 0.2 06/16/2025 ALKPHOS 178 (H) 06/16/2025 Lab Results Component Value Date APTT 26 05/11/2025 INR 1.0 05/11/2025 Lab Results Component Value Date PREALBUMIN 23.0 06/16/2025 PREALBUMIN 22.7 05/11/2025 Lab Results Component Value Date CEA 3.4 04/03/2024 CEA 4.6 03/29/2023 CEA 4.2 03/23/2022 Lab Results Component Value Date CA199 39.5 (H) 05/11/2025 Radiographics/Diagnostics: === 05/12/25 === MRCP W AND WO IV CONTRAST - Narrative - CLINICAL INDICATION: Gallbladder cancer. Additional history of colon cancer status post right hemicolectomy. TECHNIQUE: MR imaging of the abdomen was performed with and without intravenous contrast material using the following sequences: coronal single shot T2 weighted fast spin echo, axial T2 weighted sequences with and without fat saturation, axial dual phase gradient echo, pre and dynamic postcontrast 3-D T1 weighted gradient echo with fat saturation (axial and coronal), and axial diffusion. Heavily [id number] MRCP sequences were acquired. In addition, advanced 3D workstation manipulation and review of the data set was performed by the interpreting physician to further define anatomy and possible pathology. Images of areas of interest were created utilizing various techniques. These images were saved and transferred to PACS if significant. 6.9 mL of Gadavist was administered. COMPARISON: Outside hospital CT 04/01/2025 FINDINGS: Liver: Normal morphology. Smooth, diffuse enhancement and mildly increased T2 signal of the anterior liver capsule. No discrete nodularity. Patent hepatic vasculature. No steatosis or iron deposition. No suspicious liver lesion. Focus of fat necrosis along the falciform ligament (series 9 image 18). Gallbladder: Surgically absent. No suspicious findings in the cholecystectomy bed. Biliary tree: No stricture, choledocholithiasis, epithelial thickening or abnormal enhancement. Spleen: Homogenous appearance. No suspicious lesions. Adrenal Glands: Morphologically unremarkable. Pancreas: Homogenous enhancement. No suspicious lesions. No pancreatic ductal dilation. Kidneys: No hydronephrosis. No suspicious lesions. Fluid Survey: No free fluid. Vasculature: Patent abdominal aortoiliac vasculature with mild atherosclerosis. Patent portal venous system, hepatic veins, and IVC. Lymph Nodes: No morphologically abnormal or enlarged lymph nodes. Bones: No suspicious lesions. Posterior fusion construct at L4-L5. GI: Wall thickening and inflammation of the gastric pylorus, appears relatively unchanged from previous CT given technical differences. Postsurgical changes of prior right hemicolectomy. Other: Postsurgical changes are noted in the anterior abdominal wall. No discrete fluid collectionsare visualized. Unchanged appearance of bilateral breast implants, with suspected right-sided rupture. - Impression - No definite evidence of metastatic disease in the abdomen. Smooth, diffuse enhancement of the liver capsule may be secondary to recent surgical intervention or reactive from the inflammatory changes within the gastric pylorus. No discrete nodularity to suggest carcinomatosis. Recommend attention on follow-up. CRITICAL RESULT: No. COMMUNICATION: Per this written report. By electronically signing this report, I, the attending physician, attest that I have personally reviewed the images/data for the above examination(s) and agree with the final edited report. Drafted by Mando Guy MD on 05/12/2025 2:53 PM Final report signed by Christi Mantilla DO on 05/12/2025 4:44 PM Pathology: Final Diagnosis (no units) Date/Time Value 05/31/2025 1444 A. DARIANA-HEPATIC NODULE, EXCISION: - GALLSTONE WITH [...] FOR MALIGNANCY. - LIVER WITH MILD STEATOSIS. Comment (no units) Date/Time Value 05/05/2025 1325 The specific location of perimuscular invasion (peritoneal or hepatic) is unable to be determined. In the provided planes of section, the perimuscular soft tissue margins appear to be uninvolved by carcinoma. There is no evidence of perineural invasion, however, an area suspicious for lymphovascular invasion is seen. Intraoperative Consultation (no units) Date/Time Value 05/31/2025 1444 A. DARIANA-HEPATIC NODULE DARIANA-HEPATIC NODULE FOR FROZEN: SINGLE LARGE CALCULUS, NEGATIVE FOR TUMOR. TISSUE SURROUNDING STONEIS ABRADED AND CHRONICALLY INFLAMED. Assessment & Plan: Assessment & Plan 1. Postoperative status following liver resection. Recovery is progressing well, with no signs of infection or complications. The pathology report wasnegative for malignancy. All radha will be removed today and replaced with Steri-Strips, which should remain in place until they naturally detach. She is advised to shower with the Steri-Strips in place. A comprehensive lab workup will be conducted today to monitor blood counts, liver and kidney functions, electrolytes, and prealbumin levels which showed stable findings. Focus on nutrition and hydration at home, including adequate protein intake and the use of protein shakes if tolerated. Avoid lifting more than 10 pounds for the next 6 weeks, followed by an additional 20 pounds for the subs equent 6 weeks. Driving is permitted as long as she is not taking narcotics. Follow-up She will follow up in [address] Rice and has an appointment with Dr. López tomorrow. PROCEDURE Procedure: Staple removal - Procedural Discussion: Discussed removing radha from the incision site and replacing them with Steri-Strips. The patient consented to the procedure. - Technique: Radha were removed from the incision site. Steri-Strips were applied to the area. - Dressing: Steri-Strips applied to the incision site. - Post-Procedural Discussion: The patient was informed that Steri-Strips will stay on until they fall off on their own and that she can shower with them. As always, she is encouraged to contact our office at the number provided for any additional questions or concerns. She voiced understanding of the plan, asked appropriate questions, and all questions were answered to her satisfaction today. Reina Ortega, TIM 06/17/25 10:08 AM [1] Past Medical History: Diagnosis Date Personal history of other diseases of the circulatory system History of hypertension Personal history of urinary calculi Personal history of renal calculi [2] Past Surgical History: Procedure Laterality Date BREAST AUGMENTATION Bilateral 1978 CATARACT EXTRACTION N/A Cataract Surgery from [facility] CHOLECYSTECTOMY N/A Cholecystectomy from [facility] HIP ARTHROPLASTY Bilateral LUMBAR FUSION L4-L5 NASAL SEPTUM SURGERY N/A Nasal Septal Deviation Repair from [facility] OTHER SURGICAL HISTORY N/A Percutaneous Lithotomy from [facility] OTHER SURGICAL HISTORY gastric ulcer perferation RIGHT COLECTOMY TONSILLECTOMY N/A Tonsillectomy from [facility] [3] Allergies Allergen Reactions Other Swelling Aerosol disinfectant- especially Lysol Nickel Rash documented in this encounter Plan of Treatment Not on file documented as of this encounter Procedures Procedure Name Priority Date/Time Associated Diagnosis Comments CBC W/O DIFFERENTIAL Routine 06/16/2025 11:53 AM EDT Gallbladder cancer (CMS/HCC) PREALBUMIN, PLASMA Routine 06/16/2025 11 :53 AM EDT Gallbladder cancer (CMS/HCC) COMPREHENSIVE METABOLIC PANEL, PLASMA Routine 06/16/2025 11:53 AM EDT Gallbladder cancer (CMS/HCC) documented in this encounter Results * Prealbumin, Plasma (06/16/2025 11:53 AM EDT) Prealbumin, Plasma 23.0 20.0 - 41.0 mg/dL 06/16/2025 1:07 PM EDT [facility] Blood Venous blood specimen / Unknown Venipuncture / Unknown 06/16/2025 11:53 AM EDT 06/16/2025 12:28 PM EDT Reina Ortega APRN LAB BLOOD ORDERABLES Fin al Result [facility] [address] [place] [address] * (ABNORMAL) Comprehensive Metabolic Panel, Plasma (06/16/2025 11:53 AM EDT) Glucose, Plasma 94 74 - 99 mg/dL 06/16/2025 1:07 PM EDT [facility] BUN, Plasma 10 8 - 23 mg/dL 06/16/2025 1:07 PM EDT [facility] Creatinine, Plasma 0.74 0.60 - 1.10 mg/dL 06/16/2025 1:07 PM EDT [facility] BUN/Creatinine Ratio 14 06/16/2025 1:07 PM EDT [facility] Sodium, Plasma 137 136 - 145 mmol/L 06/16/2025 1:07 PM EDT [facility] Potassium, Plasma 3.8 3.6 - 4.9 mmol/L 06/16/2025 1:07 PM EDT [facility] Chloride, Plasma 102 97 - 107 mmol/L 06/16/2025 1:07 PM EDT [facility] CO2, Plasma 22 22 - 29 mmol/L 06/16/2025 1:07 PM EDT [facility] Anion Gap 13 6 - 16 mmol/L 06/16/2025 1:07 PM EDT [facility] Total Calcium, Plasma 9.8 8.9 - 10.2 mg/dL 06/16/2025 1:07 PM EDT [facility] Total Protein 7.0 6.3 - 7.9 g/dL 06/16/2025 1:07 PM EDT [facility] Albumin, Plasma 4.0 3.5 - 5.2 g/dL 06/16/2025 1:07 PM EDT [facility] AST, Plasma 25 10 - 35 U/L 06/16/2025 1:07 PM EDT [facility] ALT, Plasma 18 10 - 35 U/L 06/16/2025 1:07 PM EDT [facility] Alkaline Phosphatase, Plasma 178(H) 46 - 142 U/L 06/16/2025 1:07 PM EDT [facility] Total Bilirubin, Plasma 0.2 0.2 - 1.1 mg/dL 06/16/2025 1:07 PM EDT [facility] eGFRcr 84.5 mL/min/1.7 3m*2 06/16/2025 1:07 PM EDT [facility] Comment:Reported eGFRcr in m L/min/1.73m2 is based the CKD-EPI 2020 equation that does not use a race coefficient. Blood Venous blood specimen / Unknown Venipuncture / Unknown 06/16/2025 11:53 AM EDT 06/16/2025 12:28 PM EDT us Reina Ortega APRN LAB BLOOD ORDERABLES Fin al Result [facility] [address] [place] [address] * (ABNORMAL) CBC W/O Differential (06/16/2025 11:53 AM EDT) WBC Count 9.69 3.70 - 10.30 10*3/uL LAB HEMATOLOGY METHOD 06/16/2025 12:50 PM EDT [facility] RBC Count 4.08 3.90 - 5.20 10*6/uL LAB HEMATOLOGY METHOD 06/16/2025 12:50 PM EDT [facility] HGB 12.4 11.2 - 15.7 g/dL LAB HEMATOLOGY METHOD 06/16/2025 12:50 PM EDT [facility] HCT 38.0 34.0 - 45.0 % LAB HEMATOLOGY METHOD 06/16/2025 12:50 PM EDT [facility] Platelet Count 613(H) 155 - 369 10*3/uL LAB HEMATOLOGY METHOD 06/16/2025 12:50 PM EDT [facility] MCV 93 79 - 98 fL LAB HEMATOLOGY METHOD 06/16/2025 12:50 PM EDT [facility] MCH 30.4 26.0 - 32.0 pg LAB HEMATOLOGY METHOD 06/16/2025 12:50 PM EDT [facility] MCHC 32.6 30.7 - 35.5 g/dL LAB HEMATOLOGY METHOD 06/16/2025 12:50 PM EDT [facility] RDW 13.6 11.5 - 14.5 % LAB HEMATOLOGY METHOD 06/16/2025 12:50 PM EDT [facility] MPV 11.2 8.8 - 12.5 fL LAB HEMATOLOGY METHOD 06/16/2025 12:50 PM EDT [facility] nRBC 0.0 <=0.0 per 100 WBCs LAB HEMATOLOGY METHOD 06/16/2025 12:50 PM EDT [facility] Blood Venous blood specimen / Unknown Venipuncture / Unknown 06/16/2025 11:53 AM EDT 06/16/2025 12:24 PM EDT Reina Ortega APRN LAB BLOOD ORDERABLES Fin al Result [facility] [address] [place] [address] documented in this encounter Visit Diagnoses Diagnosis Gallbladder cancer- Primary Malignant neoplasm of gallbladder documented in this encounter Additional Health Concerns Assessment Noted Time A fall risk assessment has been complete d for the patient 06/16/2025 11:02 AM EDT A Body Mass Index follow-up plan has been documented for the patient 06/17/2025 10:12 AM EDT documented as of this encounter Care Teams Rosin Barrel Filler Relationship Specialty Start Date End Date Efrain Angeles MD [address] [place] [address] PCP - General 04/03/24 documented as of this encounter
--- OUTSIDE RECORDS SUMMARY | 2025-06-29 15:10 | XMS_ITS | Encounter Summary ---
Author Organization Healthcare Address [address] [place] [address] Care Team Providers Care Road Engineer Freight Name Role Phone Efrain Angeles MD Primary Care Provider [phone] Reason for Visit * Reason Comments Follow-up Encounter Details Date Type Department Care Team (Latest Contact Info) Description 06/29/2025 3:10 PM EDT Office Visit [facility] Multidisciplinary Oncology Clinic [address] [place] [address] Steve Veloz MD [address] [id number] Gallbladder cancer (Primary Dx) Social History Tobacco [...] any time in the past 12 m [facility], were you homeless or living in a snf (including now)? No 06/01/2025 [facility] Utilities Answer Date Recorded In [...] down, depressed, or hopeless Not at all 06/29/2025 2:24 PM EDT Dorie Barnett Patient Health Questionnaire -2 Score 0 06/29/2025 2:24 PM EDT Dorie Barnett * Question Answer Date of Assessment Author Thoughts that you would be b davon off or hurting yourself in some way Not at all 06/29/2025 2:24 PM EDT Dorie Barnett documented as of this encounter Miscellaneous Notes * Progress Notes - Reina Ortega, TIM - 06/29/2025 3:10 PM EDT Surgical Oncology [...] Albrecht annually and medical oncology clinic at [facility]. 03/01/2025: CT scan of abdomen and pelvis [...] consult with Dr. López medical oncology at [facility]. Patient appears to have stage IIA or 2B disease. Patient had lab work including CA [address] was also ordered to rule out any distant metastases. Plan is that if all testing is unremarkable she will be referred to [facility] for surgical evaluation. Referred to [...] uncomplicated. Path - no residual disease. 06/16/2025: [facility] post op follow up. Patient doing well with no acute issues. Erhard removed and replaced with steri strips. Lab values reve stable findings. Plan to follow up with Dr. Veloz in 3 weeks. [facility] Patient doing well and recovery [...] by mouth 3 times a week. Takes -W- Patient not taking: Reported on 06/29/2025 03/19/24 [...] (axial and coronal), and axial diffusion. Heavily [id number] MRCP sequences were acquired. In addition, advanced [...] 1978 CATARACT EXTRACTION N/A Cataract Surgery from [facility] CHOLECYSTECTOMY N/A Cholecystectomy from [facility] HIP ARTHROPLASTY Bilateral LUMBAR FUSION L4-L5 NASAL SEPTUM SURGERY N/A Nasal Septal Deviation Repair from [facility] OTHER SURGICAL HISTORY N/A Percutaneous Lithotomy from [facility] OTHER SURGICAL HISTORY gastric ulcer perferation RIGHT COLECTOMY TONSILLECTOMY N/A Tonsillectomy from [facility] [3] Allergies Allergen Reactions Other Swelling Aerosol disinfectant- especially Lysol Nickel Rash Cosigned by Steve Veloz MD at 07/08/2025 12:53 PM EDT documented in this encounter Plan of Treatment Not on file documented as of this encounter Results * (ABNORMAL) Cancer Antigen, GI (CA 19.9) (06/29/2025 2:07 PM EDT) CA 19.9 38.6(H) <36 U/mL 06/29/2025 4:03 PM EDT [facility] Blood Venous blood specimen / Unknown Venipuncture / Unknown 06/29/2025 2:07 PM EDT 06/29/2025 2:52 PM EDT Narrative [facility] - 06/29/2025 4:03 PM EDT Performed by Abdelrahman electrochemiluminescent immunoassay. Results obtained with different test methods or kits cannot be used interchangeably. us Steve Veloz MD LAB BLOOD ORDERABLES Final R esult [facility] [address] [place] [address] * Prealbumin, Plasma (06/29/2025 2:07 PM EDT) Prealbumin, Plasma 20.0 20.0 - 41.0 mg/dL 06/29/2025 3:46 PM EDT [facility] Blood Venous blood specimen / Unknown Venipuncture / Unknown 06/29/2025 2:07 PM EDT 06/29/2025 3:10 PM EDT us Steve Veloz MD LAB BLOOD ORDERABLES Final R esult [facility] [address] [place] [address] * Comprehensive Metabolic Panel, Plasma (06/29/2025 2:07 PM EDT) Glucose, Plasma 86 74 - 99 mg/dL 06/29/2025 3:46 PM EDT [facility] BUN, Plasma 14 8 - 23 mg/dL 06/29/2025 3:46 PM EDT [facility] Creatinine, Plasma 0.64 0.60 - 1.10 mg/dL 06/29/2025 3:46 PM EDT [facility] BUN/Creatinine Ratio 22 06/29/2025 3:46 PM EDT [facility] Sodium, Plasma 141 136 - 145 mmol/L 06/29/2025 3:46 PM EDT [facility] Potassium, Plasma 3.9 3.6 - 4.9 mmol/L 06/29/2025 3:46 PM EDT [facility] Chloride, Plasma 104 97 - 107 mmol/L 06/29/2025 3:46 PM EDT [facility] CO2, Plasma 25 22 - 29 mmol/L 06/29/2025 3:46 PM EDT [facility] Anion Gap 12 6 - 16 mmol/L 06/29/2025 3:46 PM EDT [facility] Total Calcium, Plasma 9.4 8.9 - 10.2 mg/dL 06/29/2025 3:46 PM EDT [facility] Total Protein 6.8 6.3 - 7.9 g/dL 06/29/2025 3:46 PM EDT [facility] Albumin, Plasma 4.0 3.5 - 5.2 g/dL 06/29/2025 3:46 PM EDT [facility] AST, Plasma 31 10 - 35 U/L 06/29/2025 3:46 PM EDT [facility] Comment:Hemolyzed, result ma y be falsely increased. ALT, Plasma 19 10 - 35 U/L 06/29/2025 3:46 PM EDT [facility] Alkaline Phosphatase, Plasma 136 46 - 142 U/L 06/29/2025 3:46 PM EDT [facility] Total Bilirubin, Plasma 0.2 0.2 - 1.1 mg/dL 06/29/2025 3:46 PM EDT [facility] eGFRcr 92.3 mL/min/1.7 3m*2 06/29/2025 3:46 PM EDT [facility] Comment:Reported eGFRcr in m L/min/1.73m2 is based the CKD-EPI 2020 equation that does not use a race coefficient. Blood Venous blood specimen / Unknown Venipuncture / Unknown 06/29/2025 2:07 PM EDT 06/29/2025 3:10 PM EDT us Steve Veloz MD LAB BLOOD ORDERABLES Final R esult [facility] [address] [place] [address] * CBC and Differential (06/29/2025 2:07 PM EDT) WBC Count 8.34 3.70 - 10.30 10*3/uL LAB HEMATOLOGY METHOD 06/29/2025 2:15 PM EDT [facility] RBC Count 4.05 3.90 - 5.20 10*6/uL LAB HEMATOLOGY METHOD 06/29/2025 2:15 PM EDT [facility] HGB 12.3 11.2 - 15.7 g/dL LAB HEMATOLOGY METHOD 06/29/2025 2:15 PM EDT [facility] HCT 38.0 34.0 - 45.0 % LAB HEMATOLOGY METHOD 06/29/2025 2:15 PM EDT [facility] Platelet Count 254 155 - 369 10*3/uL LAB HEMATOLOGY METHOD 06/29/2025 2:15 PM EDT [facility] MCV 94 79 - 98 fL LAB HEMATOLOGY METHOD 06/29/2025 2:15 PM EDT [facility] MCH 30.4 26.0 - 32.0 pg LAB HEMATOLOGY METHOD 06/29/2025 2:15 PM EDT [facility] MCHC 32.4 30.7 - 35.5 g/dL LAB HEMATOLOGY METHOD 06/29/2025 2:15 PM EDT [facility] RDW 13.2 11.5 - 14.5 % LAB HEMATOLOGY METHOD 06/29/2025 2:15 PM EDT [facility] MPV 11.1 8.8 - 12.5 fL LAB HEMATOLOGY METHOD 06/29/2025 2:15 PM EDT [facility] nRBC 0.0 <=0.0 per 100 WBCs LAB HEMATOLOGY METHOD 06/29/2025 2:15 PM EDT [facility] Differential Type Automated LAB HEMATOLOGY METHOD 06/29/2025 2:15 PM EDT [facility] Neutrophils % 55 % LAB HEMATOLOGY METHOD 06/29/2025 2:15 PM EDT [facility] Lymphocytes % 31 % LAB HEMATOLOGY METHOD 06/29/2025 2:15 PM EDT [facility] Monocytes % 8 % LAB HEMATOLOGY METHOD 06/29/2025 2:15 PM EDT [facility] Eosinophils % 5 % LAB HEMATOLOGY METHOD 06/29/2025 2:15 PM EDT [facility] Basophils % 1 % LAB HEMATOLOGY METHOD 06/29/2025 2:15 PM EDT [facility] Immature Granulocytes % 0 % LAB HEMATOLOGY METHOD 06/29/2025 2:15 PM EDT [facility] Neutrophils Absolute 4.69 1.60 - 6.10 10*3/uL LAB HEMATOLOGY METHOD 06/29/2025 2:15 PM EDT [facility] Lymphocytes Absolute 2.54 1.20 - 3.90 10*3/uL LAB HEMATOLOGY METHOD 06/29/2025 2:15 PM EDT [facility] Monocytes Absolute 0.63 0.30 - 0.90 10*3/uL LAB HEMATOLOGY METHOD 06/29/2025 2:15 PM EDT [facility] Eosinophils Absolute 0.40 0.00 - 0.50 10*3/uL LAB HEMATOLOGY METHOD 06/29/2025 2:15 PM EDT [facility] Basophils Absolute 0.06 0.00 - 0.10 10*3/uL LAB HEMATOLOGY METHOD 06/29/2025 2:15 PM EDT [facility] Immature Granulocytes Absolute 0.02 0.00 - 0.06 10*3/uL LAB HEMATOLOGY METHOD 06/29/2025 2:15 PM EDT [facility] Blood Venous blood specimen / Unknown Venipuncture / Unknown 06/29/2025 2:07 PM EDT 06/29/2025 2:12 PM EDT Narrative [facility] - 06/29/2025 2:15 PM EDT Therapeutic decision making should be based on absolute values, rather than percentages. Steve Veloz MD LAB BLOOD ORDERABLES Final R esult [facility] [address] [place] [address] documented in this encounter Visit Diagnoses Diagnosis Gallbladder cancer- Primary Malignant neoplasm of gallbladder documented in this encounter Additional Health Concerns Assessment Noted Time A fall risk assessment has been complete d for the patient 06/29/2025 2:24 PM EDT A Body Mass Index follow-up plan has been documented for the patient 07/08/2025 12:54 PM EDT documented as of this encounter Care Teams Road Engineer Freight Relationship Specialty Start Date End Date Efrain Angeles MD [address] [place] [id number] PCP - General 04/03/24 documented as of this encounter
--- OUTSIDE RECORDS SUMMARY | 2025-07-22 09:17 | XMS_ITS | Clinical Summary ---
Author Organization [facility] Address [address] [place] [address] Care Team Providers [employer] Name Role Phone Efrain Angeles MD Primary Care Provider [phone] Allergies Active Allergy Reactions Criticality Noted Date Comments Nickel Rash Low 07/16/2022 Other Swelling High 05/25/2025 Aerosol disinfectant- especially Lysol Medications triamterene-hydro chlorothiazide (Maxzide-25) 37.5-25 MG tablet Take 0.5 tablets by mouth daily. Active losartan (Cozaar) 50 MG tablet Take 0.5 tablets by mouth daily. Active aspirin 81 MG EC tablet Take 1 tablet by mouth daily. Active albuterol 108 (90 Base) MCG/ACT inhaler Inhale 2 puffs as needed for shortness of breath or wheezing. Active potassium chloride CR (Klor-Con) 10 MEQ ER tablet Take 1 tablet by mouth 2 times a day. Active Vibegron (Gemtesa) 75 MG tablet Take 1 tablet by mouth Daily. Active pantoprazole (Protonix) 40 MG EC tablet Take 1 tablet by mouth nightly. Active fluticasone-salme terol (Advair Diskus) 100-50 MCG/ACT diskus inhaler Inhale 1 puff as needed. Active lidocaine (Lidoderm) 5 % patch Apply 1 patch topically 1 (one) time each day at the same time over 12 hours. Remove & discard patch within 12 hours or as directed by . 10 patch Active naloxone (Narcan) 4 mg/0.1 mL nasal spray 1. Give 1 spray in nostril for no/slow breathing or cannot wake after opioid use 2. Call 911 3. Repeat in other nostril if symptoms continue 1 each Active Additional Information Patient not taking.Reported on 06/16/2025 oxybutynin XL (Ditropan-XL) 15 MG 24 hr tablet Take 1 tablet by mouth daily. Do not crush, chew, or split. Active rosuvastatin (Crestor) 10 MG tablet Take 1 tablet by mouth 3 times a week. Takes M-W-F 024 2024 Discontinued methocarbamol (Robaxin) 500 MG tablet Take 2 tablets by mouth 4 times a day. 80 tablet 2024 Discontinued metoclopramide (Reglan) 10 MG tablet Take 1 tablet by mouth every 8 hours. 90 tablet 2024 ondansetron ODT (Zofran-ODT) 4 MG disintegrating tablet Dissolve 1 tablet on the tongue every 6 hours as needed for nausea or vomiting. 20 tablet 2024 Discontinued senna-docusate sodium (Senokot-S) 8.6-50 MG tablet Take 1 tablet by mouth daily. 30 tablet 2024 Discontinued oxyCODONE (Roxicodone) 5 MG immediate release tablet Take 1 tablet by mouth every 6 hours as needed for moderate pain. 12 tablet 2024 Discontinued enoxaparin (Lovenox) 40 MG/0.4ML solution prefilled syringe Inject 0.4 mL under the skin daily for 19 days. 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 Overview (06/02/2025): 05/31/2025: diagnostic laparoscopy, portal lymph node dissection, segment 4B/5 partial hepatectomy, omental flap [Cavnar] Breast implant rupture 04/20/2024 Resolved Problems Problem Noted Date Diagnosed Date Resolved Date Leukocytosis 06/02/2025 06/08/2025 Overview (06/02/2025): - common post-op finding likely reactive 2/2 surgery - daily/prn CBC - monitor for s/s of active infection Encounters Date Type Department Care Team Description 06/29/2025 3:10 PM EDT Office Visit [facility] Multidisciplinary Oncology Clinic [address] [place] [address] Steve Veloz MD Gallbladder cancer (Primary Dx) 06/29/2025 Travel 06/25/2025 Telephone [facility] Multidisciplinary Oncology Clinic [address] [place] [address] Steve Veloz MD 06/23/2025 Telephone [facility] Multidisciplinary Oncology Clinic [address] [place] [address] Steve Veloz MD 06/22/2025 Travel 06/16/2025 11:30 AM EDT Office Visit [facility] Multidisciplinary Oncology Clinic [address] [place] [address] Reina Ortega APRN Gallbladder cancer (CMS/HCC) (Primary Dx) 06/16/2025 Travel 06/10/2025 Telephone [facility] Multidisciplinary Oncology Clinic [address] [place] [address] Reina Ortega APRN [facility] 06/10/2025 Telephone [facility] [address] [place] [address] Steve Veloz MD 05/31/2025 1:23 PM EDT Anesthesia Event [facility] [address] Matteo Quiros MD Harward, Amy E, PA 05/31/2025 11:50 AM EDT - 05/31/2025 5:20 PM EDT Surgery [facility] [address] [place], [place] [id number] Steve Veloz MD open partial hepatectomy, lymph node dissection [20096 (CPT )] 05/31/2025 9:14 AM EDT - 06/08/2025 2:27 PM EDT Hospital Encounter [facility] Inpatient [address] Steve Veloz MD Adenocarcinoma of gallbladder (CMS/HCC) Discharge Disposition: Home or Self Care 05/31/2025 Travel 05/27/2025 Telephone [facility] [address] [place] [phone] Steve Veloz MD 05/26/2025 Telephone [facility] Mult[facility]isciplinary Oncology [address] [address] Steve Veloz MD 05/25/2025 1:00 PM EDT Pre-Admission Testing [facility] Pre-op Clinic [address], [address] [place] [address] Preop examination (Primary Dx) 05/25/2025 11:10 AM EDT Office Visit [facility] [address] [place] [phone] Steve Veloz MD Gallbladder cancer (CMS/HCC) (Primary Dx) 05/25/2025 Travel 05/25/2025 Telephone [facility] [address] [place] [phone] Steve Veloz MD 05/24/2025 Travel 05/19/2025 Telephone [facility] [address] [place] [phone] Steve Veloz MD 05/19/2025 Telephone [facility] [address] [place] [address] Jessica Banks 05/18/2025 Travel 05/17/2025 Orders Only [facility] [address] [place] [address] Steve Veloz MD Adenocarcinoma of gallbladder (CMS/HCC) (Primary Dx) 05/12/2025 11:53 AM EDT - 05/12/2025 11:59 PM EDT Hospital Encounter [facility] MRI [address] [place] [address] Gallbladder cancer (CMS/HCC) Discharge Disposition: Home or Self Care 05/12/2025 Travel 05/12/2025 Telephone [facility] [address] [place] [phone] Marjorie Henriquez Nurse Liaison call 05/11/2025 11:10 AM EDT Office Visit [facility] [address] [place] [address] Steve Veloz MD Gallbladder cancer (CMS/HCC) (Primary Dx); Abnormal coagulation profile 05/11/2025 Travel 05/05/2025 Lab Requisition [facility] [address] [place] [address] Steve Veloz MD Cholecystitis, unspecified 04/27/2025 Telephone [facility] [address] [place] [address] Steve Veloz MD 04/22/2025 Orders Only External Location [address] [place] [address] Provider, External from Last 3 Months Family History Medical History Relation Name Comments Anesthesia problems Neg Hx Malig Hyperthermia Neg Hx Social History Tobacco Use Types Packs/Day Years [...] any time in the past 12 m [facility], were you homeless or living in a [place] health care facility (including now)? No 06/01/2025 [facility] Utilities Answer Date Recorded In the past 12 months has th e electric, gas, oil, or water company threatened to shut off services in your home? No 06/01/2025 Comments No Sex and Gender Information Value Date Recorded Sex Assigned at Female 05/31/2025 10:07 AM EDT Legal Sex Female 6:24 PM EDT Gender Identity Female 05/31/2025 10:07 AM EDT Sexual Orientation Not on file Last Filed Vital Signs Vital Sign Reading Time Taken Comments Blood Pressure 98/66 06/29/2025 2:19 PM EDT Pulse 80 06/29/2025 2:19 PM EDT Temperature 36.4 C (97.5 F) 06/29/2025 2:19 PM EDT Respiratory Rate 16 06/16/2025 10:55 AM EDT Oxygen Saturation 95% 06/29/2025 2:19 PM EDT Inhaled Oxygen Concentration - - Weight 62 kg (136 lb 11 oz) 06/29/2025 2:19 PM E DT Height 165.1 cm (5' 5 ) 06/29/2025 2:19 PM EDT Body Mass Index 22.75 06/29/2025 2:19 PM EDT Plan of Treatment Health Maintenance Due Date Last Done Comments [facility]-Bone Density Scan 1950 [facility]-Hepatitis C Screening 1950 [facility]-Medicare Annual Wellness (AWV) 1950 [facility]-/Child/Adol SDOH Screenings 1949 CT Colonography 1994 Colonoscopy 1994 FIT-DNA 1994 FIT 1994 FOBT 1994 Sigmoidoscopy 1994 [facility]-Colorectal Cancer Screening 1994 [facility]-Zoster Vaccines (2 of 2) 09/05/2020 07/11/2020, 05/06/2020, 10/28/2013 [facility]-DTaP,Tdap,and Td Vaccines (2 - Td or Tdap) 06/23/2022 06/23/2012 [facility]-RSV Vaccine: 60+ Years or (1 - 1-dose 75+ series) 2024 [id number] Vaccine ( - season) 2025 06/14/2021, 10/26/2020, 10/20/2020, Additional history exists [facility]-Influenza Vaccine (#1) 05/24/202506/11, 09/21/2021, 05/27/2020, Additional history exists [facility]- SDOH Screenings 11/29/2025 [facility]-Adult SDOH Screenings 11/29/2025 06/01/2025 [facility]-Depression Screening 06/29/2026 06/29/2025 [facility]-Pneumococcal Vaccine: 50+ Years Completed 09/26/2016, 06/29/2015 [facility]-Hepatitis A Vaccines Completed 08/19/2019, 12/22 [facility]-Breast Cancer Screening Discontinued 10/25, 11/16/2020, 11/11/2019, Additional history exists HPV Vaccines Aged Out No longer eligi [...] on patient's age to complete this topic Procedures Procedure Name Priority Date/Time Associated Diagnosis Comments CANCER ANTIGEN, GI (CA 19.9) Routine 06/29/2025 2:07 PM EDT Gallbladder cancer PREALBUMIN, PLASMA Routine 06/29/2025 2: 07 PM EDT Gallbladder cancer COMPREHENSIVE METABOLIC PANEL, PLASMA Routine 06/29/2025 2:07 PM EDT Gallbladder cancer CBC WITH AUTO DIFFERENTIAL Routine 06/29/2025 2:07 PM EDT Gallbladder cancer CBC W/O DIFFERENTIAL Routine 06/16/2025 11:53 AM EDT Gallbladder cancer (CMS/HCC) COMPREHENSIVE METABOLIC PANEL, PLASMA Routine 06/16/2025 11:53 AM EDT Gallbladder cancer (CMS/HCC) PREALBUMIN, PLASMA Routine 06/16/2025 11 :53 AM EDT Gallbladder cancer (CMS/HCC) PHOSPHORUS, PLASMA Routine 06/08/2025 3: 59 AM EDT MAGNESIUM, PLASMA Routine 06/08/2025 3:5 9 AM EDT COMPREHENSIVE METABOLIC PANEL, PLASMA Routine 06/08/2025 3:59 AM EDT CBC W/O DIFFERENTIAL Routine 06/08/2025 3:59 AM EDT PHOSPHORUS, PLASMA Routine 06/07/2025 3: 39 AM EDT MAGNESIUM, PLASMA Routine 06/07/2025 3:3 9 AM EDT COMPREHENSIVE METABOLIC PANEL, PLASMA Routine 06/07/2025 3:39 AM EDT CBC W/O DIFFERENTIAL Routine 06/07/2025 3:39 AM EDT PHOSPHORUS, PLASMA Routine 06/06/2025 4: 43 AM EDT MAGNESIUM, PLASMA Routine 06/06/2025 4:4 3 AM EDT COMPREHENSIVE METABOLIC PANEL, PLASMA Routine 06/06/2025 4:43 AM EDT CBC W/O DIFFERENTIAL Routine 06/06/2025 4:43 AM EDT PHOSPHORUS, PLASMA Routine 06/05/2025 3: 43 AM EDT MAGNESIUM, PLASMA Routine 06/05/2025 3:4 3 AM EDT COMPREHENSIVE METABOLIC PANEL, PLASMA Routine 06/05/2025 3:43 AM EDT CBC W/O DIFFERENTIAL Routine 06/05/2025 3:43 AM EDT PHOSPHORUS, PLASMA Routine 06/04/2025 5: 02 AM EDT MAGNESIUM, PLASMA Routine 06/04/2025 5:0 2 AM EDT COMPREHENSIVE METABOLIC PANEL, PLASMA Routine 06/04/2025 5:02 AM EDT CBC W/O DIFFERENTIAL Routine 06/04/2025 5:02 AM EDT CBC W/O DIFFERENTIAL Routine 06/03/2025 6:14 AM EDT PHOSPHORUS, PLASMA Routine 06/03/2025 3: 52 AM EDT MAGNESIUM, PLASMA Routine 06/03/2025 3:5 2 AM EDT COMPREHENSIVE METABOLIC PANEL, PLASMA Routine 06/03/2025 3:52 AM EDT PHOSPHORUS, PLASMA Routine 06/02/2025 2: 13 AM EDT MAGNESIUM, PLASMA Routine 06/02/2025 2:1 3 AM EDT COMPREHENSIVE METABOLIC PANEL, PLASMA Routine 06/02/2025 2:13 AM EDT CBC W/O DIFFERENTIAL Routine 06/02/2025 2:13 AM EDT PHOSPHORUS, PLASMA Routine 06/01/2025 9: 25 AM EDT MAGNESIUM, PLASMA Routine 06/01/2025 9:2 5 AM EDT COMPREHENSIVE METABOLIC PANEL, PLASMA Routine 06/01/2025 9:25 AM EDT CBC W/O DIFFERENTIAL Routine 06/01/2025 9:25 AM EDT PHOSPHORUS, PLASMA Routine 05/31/2025 5: 04 PM EDT MAGNESIUM, PLASMA Routine 05/31/2025 5:0 4 PM EDT COMPREHENSIVE METABOLIC PANEL, PLASMA Routine 05/31/2025 5:04 PM EDT CBC WITH AUTO DIFFERENTIAL Routine 05/31/2025 5:04 PM EDT BLOOD GAS PANEL, ARTERIAL Routine 05/31/2025 5:04 PM EDT SURGICAL PATHOLOGY EXAM Routine 05/31/2025 2:44 PM EDT Adenocarcinoma of gallbladder (CMS/HCC) PB ANESTHESIA NON-TIMED PROCEDURE PLACEHOLDER Routine 05/31/2025 2:20 PM EDT ANESTHESIA PERIPHERAL IV PLACEMENT Routine 05/31/2025 2:20 PM EDT PB ANESTHESIA PLACEHOLDER Routine 05/31/2025 1:28 PM EDT ME AN ELECTIVE ENDOTRACHEAL AIRWAY Routine 05/31/2025 1:28 PM EDT ME LAP,DIAGNOSTIC ABDOMEN 05/31/2025 1:06 PM EDT Adenocarcinoma of gallbladder (CMS/HCC) Special Needs [employer], [id number], Ligasure ME RESEC LIVER,PART LOBECTOMY 05/31/2025 1:06 PM EDT Adenocarcinoma of gallbladder (CMS/HCC) Special Needs [employer], [id number], Ligasure PB ANESTHESIA NON-TIMED PROCEDURE PLACEHOLDER Routine 05/31/2025 11:12 AM EDT TYPE AND SCREEN Routine 05/31/2025 10:27 AM EDT ECG ADULT Routine 05/25/2025 12:16 PM EDT Gallbladder cancer (CMS/HCC) MRCP W AND WO IV CONTRAST STAT 05/12/2025 1:19 PM EDT Gallbladder cancer (CMS/HCC) CANCER ANTIGEN, GI (CA 19.9) Routine 05/11/2025 11:09 AM EDT Gallbladder cancer (CMS/HCC) PROTHROMBIN TIME(PT) / INR Today 05/11/2025 11:09 AM EDT Gallbladder cancer (CMS/HCC) APTT Routine 05/11/2025 11:09 AM EDT Gallbladder cancer (CMS/HCC) Abnormal coagulation profile PREALBUMIN, PLASMA Routine 05/11/2025 11 :09 AM EDT Gallbladder cancer (CMS/HCC) COMPREHENSIVE METABOLIC PANEL, PLASMA Routine 05/11/2025 11:09 AM EDT Gallbladder cancer (CMS/HCC) CBC WITH AUTO DIFFERENTIAL Routine 05/11/2025 11:09 AM EDT Gallbladder cancer (CMS/HCC) SURGICAL PATHOLOGY CONSULT Routine 05/05/2025 1:25 PM EDT Cholecystitis, unspecified CT OUTSIDE IMAGES 04/22/2025 1:5 0 PM EDT from Last 3 Months Results * (ABNORMAL) Cancer Antigen, GI (CA 19.9) (06/29/2025 2:07 PM EDT) Only the most recent of2 resultswithin the time period is included. Pathologist [facility] CA 19.9 38.6(H) <36 U/mL 06/29/2025 4:03 PM EDT [facility] Blood Venous blood specimen / Unknown Venipuncture / Unknown 06/29/2025 2:07 PM EDT 06/29/2025 2:52 PM EDT Narrative [facility] - 06/29/2025 4:03 PM EDT Performed by Abdelrahman electrochemiluminescent immunoassay. Results obtained with different test methods or kits cannot be used interchangeably. us Steve Veloz MD LAB BLOOD ORDERABLES Final R esult [facility] [address] [place] [address] * CBC and Differential (06/29/2025 2:07 PM EDT) Only the most recent of3 resultswithin the time period is included. WBC Count 8.34 3.70 - 10.30 10*3/uL LAB HEMATOLOGY METHOD 06/29/2025 2:15 PM EDT [facility] RBC Count 4.05 3.90 - 5.20 10*6/uL LAB HEMATOLOGY METHOD 06/29/2025 2:15 PM EDT [facility] HGB 12.3 11.2 - 15.7 g/dL LAB HEMATOLOGY METHOD 06/29/2025 2:15 PM EDT [facility] HCT 38.0 34.0 - 45.0 % LAB HEMATOLOGY METHOD 06/29/2025 2:15 PM EDT [facility] Platelet Count 254 155 - 369 10*3/uL LAB HEMATOLOGY METHOD 06/29/2025 2:15 PM EDT [facility] MCV 94 79 - 98 fL LAB HEMATOLOGY METHOD 06/29/2025 2:15 PM EDT [facility] MCH 30.4 26.0 - 32.0 pg LAB HEMATOLOGY METHOD 06/29/2025 2:15 PM EDT [facility] MCHC 32.4 30.7 - 35.5 g/dL LAB HEMATOLOGY METHOD 06/29/2025 2:15 PM EDT [facility] RDW 13.2 11.5 - 14.5 % LAB HEMATOLOGY METHOD 06/29/2025 2:15 PM EDT [facility] MPV 11.1 8.8 - 12.5 fL LAB HEMATOLOGY METHOD 06/29/2025 2:15 PM EDT [facility] nRBC 0.0 <=0.0 per 100 WBCs LAB HEMATOLOGY METHOD 06/29/2025 2:15 PM EDT [facility] Differential Type Automated LAB HEMATOLOGY METHOD 06/29/2025 2:15 PM EDT [facility] Neutrophils % 55 % LAB HEMATOLOGY METHOD 06/29/2025 2:15 PM EDT [facility] Lymphocytes % 31 % LAB HEMATOLOGY METHOD 06/29/2025 2:15 PM EDT [facility] Monocytes % 8 % LAB HEMATOLOGY METHOD 06/29/2025 2:15 PM EDT [facility] Eosinophils % 5 % LAB HEMATOLOGY METHOD 06/29/2025 2:15 PM EDT [facility] Basophils % 1 % LAB HEMATOLOGY METHOD 06/29/2025 2:15 PM EDT [facility] Immature Granulocytes % 0 % LAB HEMATOLOGY METHOD 06/29/2025 2:15 PM EDT [facility] Neutrophils Absolute 4.69 1.60 - 6.10 10*3/uL LAB HEMATOLOGY METHOD 06/29/2025 2:15 PM EDT [facility] Lymphocytes Absolute 2.54 1.20 - 3.90 10*3/uL LAB HEMATOLOGY METHOD 06/29/2025 2:15 PM EDT [facility] Monocytes Absolute 0.63 0.30 - 0.90 10*3/uL LAB HEMATOLOGY METHOD 06/29/2025 2:15 PM EDT [facility] Eosinophils Absolute 0.40 0.00 - 0.50 10*3/uL LAB HEMATOLOGY METHOD 06/29/2025 2:15 PM EDT [facility] Basophils Absolute 0.06 0.00 - 0.10 10*3/uL LAB HEMATOLOGY METHOD 06/29/2025 2:15 PM EDT [facility] Immature Granulocytes Absolute 0.02 0.00 - 0.06 10*3/uL LAB HEMATOLOGY METHOD 06/29/2025 2:15 PM EDT [facility] Blood Venous blood specimen / Unknown Venipuncture / Unknown 06/29/2025 2:07 PM EDT 06/29/2025 2:12 PM EDT Narrative [facility] - 06/29/2025 2:15 PM EDT Therapeutic decision making should be based on absolute values, rather than percentages. Steve Veloz MD LAB BLOOD ORDERABLES Final [facility] [place] Performing Organization Address City/[facility] Co de Phone Number [facility] [address] [place] [address] * Prealbumin, Plasma (06/29/2025 2:07 PM EDT) Only the most recent of3 resultswithin the time period is included. Prealbumin, Plasma 20.0 20.0 - 41.0 mg/dL 06/29/2025 3:46 PM EDT [facility] Blood Venous blood specimen / Unknown Venipuncture / Unknown 06/29/2025 2:07 PM EDT 06/29/2025 3:10 PM EDT Steve Veloz MD LAB BLOOD ORDERABLES Final R esult [facility] [address] [place] [address] * Comprehensive Metabolic Panel, Plasma (06/29/2025 2:07 PM EDT) Only the most recent of12 resultswithin the time period is included. Glucose, Plasma 86 74 - 99 mg/dL 06/29/2025 3:46 PM EDT [facility] BUN, Plasma 14 8 - 23 mg/dL 06/29/2025 3:46 PM EDT [facility] Creatinine, Plasma 0.64 0.60 - 1.10 mg/dL 06/29/2025 3:46 PM EDT [facility] BUN/Creatinine Ratio 22 06/29/2025 3:46 PM EDT [facility] Sodium, Plasma 141 136 - 145 mmol/L 06/29/2025 3:46 PM EDT [facility] Potassium, Plasma 3.9 3.6 - 4.9 mmol/L 06/29/2025 3:46 PM EDT [facility] Chloride, Plasma 104 97 - 107 mmol/L 06/29/2025 3:46 PM EDT [facility] CO2, Plasma 25 22 - 29 mmol/L 06/29/2025 3:46 PM EDT [facility] Anion Gap 12 6 - 16 mmol/L 06/29/2025 3:46 PM EDT [facility] Total Calcium, Plasma 9.4 8.9 - 10.2 mg/dL 06/29/2025 3:46 PM EDT [facility] Total Protein 6.8 6.3 - 7.9 g/dL 06/29/2025 3:46 PM EDT [facility] Albumin, Plasma 4.0 3.5 - 5.2 g/dL 06/29/2025 3:46 PM EDT [facility] AST, Plasma 31 10 - 35 U/L 06/29/2025 3:46 PM EDT [facility] Comment:Hemolyzed, result ma y be falsely increased. ALT, Plasma 19 10 - 35 U/L 06/29/2025 3:46 PM EDT [facility] Alkaline Phosphatase, Plasma 136 46 - 142 U/L 06/29/2025 3:46 PM EDT [facility] Total Bilirubin, Plasma 0.2 0.2 - 1.1 mg/dL 06/29/2025 3:46 PM EDT [facility] eGFRcr 92.3 mL/min/1.7 3m*2 06/29/2025 3:46 PM EDT [facility] Comment:Reported eGFRcr in m L/min/1.73m2 is based the CKD-EPI 2020 equation that does not use a race coefficient. Blood Venous blood specimen / Unknown Venipuncture / Unknown 06/29/2025 2:07 PM EDT 06/29/2025 3:10 PM EDT us Steve Veloz MD LAB BLOOD ORDERABLES Final R esult [facility] [address] [place] [address] * (ABNORMAL) CBC W/O Differential (06/16/2025 11:53 AM EDT) Only the most recent of9 resultswithin the time period is included. WBC Count 9.69 3.70 - 10.30 10*3/uL LAB HEMATOLOGY METHOD 06/16/2025 12:50 PM EDT [facility] RBC Count 4.08 3.90 - 5.20 10*6/uL LAB HEMATOLOGY METHOD 06/16/2025 12:50 PM EDT [facility] HGB 12.4 11.2 - 15.7 g/dL LAB HEMATOLOGY METHOD 06/16/2025 12:50 PM EDT [facility] HCT 38.0 34.0 - 45.0 % LAB HEMATOLOGY METHOD 06/16/2025 12:50 PM EDT [facility] Platelet Count 613(H) 155 - 369 10*3/uL LAB HEMATOLOGY METHOD 06/16/2025 12:50 PM EDT [facility] MCV 93 79 - 98 fL LAB HEMATOLOGY METHOD 06/16/2025 12:50 PM EDT [facility] MCH 30.4 26.0 - 32.0 pg LAB HEMATOLOGY METHOD 06/16/2025 12:50 PM EDT [facility] MCHC 32.6 30.7 - 35.5 g/dL LAB HEMATOLOGY METHOD 06/16/2025 12:50 PM EDT [facility] RDW 13.6 11.5 - 14.5 % LAB HEMATOLOGY METHOD 06/16/2025 12:50 PM EDT [facility] MPV 11.2 8.8 - 12.5 fL LAB HEMATOLOGY METHOD 06/16/2025 12:50 PM EDT [facility] nRBC 0.0 <=0.0 per 100 WBCs LAB HEMATOLOGY METHOD 06/16/2025 12:50 PM EDT [facility] Blood Venous blood specimen / Unknown Venipuncture / Unknown 06/16/2025 11:53 AM EDT 06/16/2025 12:24 PM EDT Reina Ortega APRN LAB BLOOD ORDERABLES Fin al Result Performing Organization Address City/[facility]/ZIP Co de Phone Number [facility] [address] [place] [address] * Phosphorus, Plasma (06/08/2025 3:59 AM EDT) Only the most recent of9 resultswithin the time period is included. Phosphorus, Plasma 4.1 2.5 - 4.5 mg/dL 06/08/2025 4:52 AM EDT [facility] Blood Venous blood specimen / Unknown Venipuncture / Unknown 06/08/2025 3:59 AM EDT 06/08/2025 4:23 AM EDT Steve Veloz MD LAB BLOOD ORDERABLES Final R esult Performing Organization Address City/[facility] Co de Phone Number [facility] [address] [place] [address] * (ABNORMAL) Magnesium, Plasma (06/08/2025 3:59 AM EDT) Only the most recent of9 resultswithin the time period is included. Magnesium, Plasma 1.6(L) 1.9 - 2.4 mg/dL 06/08/2025 4:52 AM EDT [facility] Blood Venous blood specimen / Unknown Venipuncture / Unknown 06/08/2025 3:59 AM EDT 06/08/2025 4:23 AM EDT Steve Veloz MD LAB BLOOD ORDERABLES Final R esult Performing Organization Address City/[facility]/ZIP Co de Phone Number [facility] [address] [place] [address] * (ABNORMAL) Blood gas panel, arterial (05/31/2025 5:04 PM EDT) pH, Arterial 7.35 7.31 - 7.42 LAB HEMATOLOGY METHOD 05/31/2025 5:12 PM EDT [facility] pCO2, Arterial 40 35 - 48 mmHg LAB HEMATOLOGY METHOD 05/31/2025 5:12 PM EDT [facility] pO2, Arterial 79 >70 mmHg LAB HEMATOLOGY METHOD 05/31/2025 5:12 PM EDT [facility] SO2, Measured, Arterial 96 94 - 98 % LAB HEMATOLOGY METHOD 05/31/2025 5:12 PM EDT [facility] Base Excess, Arterial -3.1(L) -2.0 - 3.0 mmol/L LAB HEMATOLOGY METHOD 05/31/2025 5:12 PM EDT [facility] Bicarbonate, Calculated, Arterial 22 22 - 26 mmol/L LAB HEMATOLOGY METHOD 05/31/2025 5:12 PM EDT [facility] Hematocrit, Whole Blood 37.7 34.0 - 45.0 % LAB HEMATOLOGY METHOD 05/31/2025 5:12 PM EDT [facility] Sodium, Whole Blood 142 136 - 145 mmol/L LAB HEMATOLOGY METHOD 05/31/2025 5:12 PM EDT [facility] Potassium, Whole Blood 3.2(L) 3.6 - 4.9 mmol/L LAB HEMATOLOGY METHOD 05/31/2025 5:12 PM EDT [facility] Chloride, Whole Blood 110(H) 97 - 107 mmol/L LAB HEMATOLOGY METHOD 05/31/2025 5:12 PM EDT [facility] Glucose, Whole Blood 166(H) 74 - 99 mg/dL LAB HEMATOLOGY METHOD 05/31/2025 5:12 PM EDT [facility] Ionized Calcium, Whole Blood 4.6 4.6 - 5.1 mg/dL LAB HEMATOLOGY METHOD 05/31/2025 5:12 PM EDT [facility] Lactate, Arterial, Whole Blood 0.7 0.5 - 1.6 mmol/L LAB HEMATOLOGY METHOD 05/31/2025 5:12 PM EDT [facility] Blood Arterial blood specimen / Unknown Arterial Puncture / Unknown 05/31/2025 5:04 PM EDT 05/31/2025 5:11 PM EDT us Steve Veloz MD LAB BLOOD ORDERABLES Final R esult [facility] [address] [place] [address] * Surgical Pathology Exam (05/31/2025 2:44 PM EDT) Case Report Surgical Pathology Case: [id number] Authorizing Provider: Steve Veloz MD Collected: 05/31/2025 1444 Ordering Location: [facility] A OPERATING RO[facility] Received: 05/31/2025 1449 Pathologist: Elaina Katz MD Intraop: Bel Lira MD Specimens: A) - Other (specify site), pamela-hepatic nodule B) - Lymph Node (specify site):, [...] 4B/5 partial hepatectomy 06/03/2025 4:37 PM EDT [facility] Final Diagnosis A. PAMELA-HEPATIC NODULE, EXCISION: - GALLSTONE WITH ASSOCIATED FIBROTIC [...] WITH MILD STEATOSIS. 06/03/2025 4:37 PM EDT [facility] at 1637 EDT Comment:This is an appended report. These results have been appended to a previously preliminary verified report. 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 These results have been appended to a previously preliminary verified report. Intraoperative Consultation A. PAMELA-HEPATIC NODULE PAMELA-HEPATIC NODULE FOR FROZEN: SINGLE LARGE CALCULUS, NEGATIVE FOR TUMOR. TISSUE SURROUNDING STONE IS ABRADED AND CHRONICALLY INFLAMED. 06/03/2025 4:37 PM EDT [facility] Microscopic Description The permanent sections support the frozen section diagnosis. 06/03/2025 4:37 PM EDT [facility] Comment:This is an appended report. These results have been appended to a previously preliminary verified report. Gross Description A. PAMELA-HEPATIC NODULE The specimen is received fresh for [...] x 3.3 x 0.6 cm aggregate of emyer-yellow lobulated fibroadipose tissue two lymph nodes that [...] x 1.1 x 0.3 cm portion of brown-holladn fibromembranous tissue. Specimen is entirely submitted en [...] surface. A discrete mass is not identified. Leather Polisher sections are submitted in cassettes G1-G3. Cold Time: 54m KOFI Harris (ASCP) 06/03/2025 4:37 PM EDT [facility] Comment:This is an appended report. [...] MD LAB PATHOLOGY ORDERABLES Fin al Result [facility] [address] [place] [address] * PB ANESTHESIA NON-TIMED PROCEDURE PLACEHOLDER (05/31/2025 [...] Location: hand Technique: anatomical landmarks Attempts: 1 us Matteo Quiros MD ANESTHESIA ORDERABLES Final R esult * ME AN ELECTIVE ENDOTRACHEAL AIRWAY, PB ANESTHESIA PLACEHOLDER [...] NON-TIMED PROCEDURE PLACEHOLDER (05/31/2025 11:12 AM EDT) Pauline Moyer MD - 05/31/2025 11:12 AM EDT Pauline [...] 05/31/2025 11:12:00 AM lidocaine-EPINEPHrine (XYLOCAINE W/EPI) 1.5 %-[id number] - Epidural 3 mL - 05/31/2025 11:12:00 [...] cc negative for IV or SA dose. us Pauline Mohamud MD ANESTHESIA ORDERABLES Fin al Result * Type and screen (05/31/2025 10:27 AM EDT) ABO/Rh B Positive 05/31/2025 10:07 AM EDT [facility] Antibody Screen Negative 05/31/2025 10:07 AM EDT [facility] Specimen Expiration 06/03/2025 23:59 05/31/2025 10:07 AM EDT [facility] Blood Venous blood specimen / Unknown Venipuncture / Unknown 05/31/2025 10:27 AM EDT 05/31/2025 10:32 AM EDT Matteo Quiros MD LAB BLOOD BANK TEST ORDERABLE S Final Result Performing Organization Address City/[facility]/ZIP Co de Phone Number BLOOD BANK [address] [place] [address], * ECG Adult (Now - Performed in your clinic) (05/25/2025 12:16 PM EDT) EKG DIAGNOSIS CLASS Borderline Abnormal MUSE ECG Ventricular Rate 77 BPM MUSE ECG Atrial Rate 77 BPM MUSE ECG ME Interval 174 ms MUSE ECG QRSD Interval 90 ms MUSE ECG QT Interval 402 ms MUSE ECG QTC Interval 454 ms MUSE ECG P [place] 63 degrees MUSE ECG R [place] 39 degrees MUSE ECG T Wave [place] 50 degrees MUSE ECG Diagnosis Poor data quality, interpretation may be adversely affected MUSE ECG Diagnosis Normal sinus rhythm MUSE ECG Diagnosis Low voltage QRS MUSE ECG Diagnosis Borderline ECG MUSE ECG Diagnosis MUSE ECG Diagnosis Confirmed by Manohar Seaman ([id number]) on 05/25/2025 1:15:09 PM MUSE ECG 05/25/2025 12:1 6 PM EDT 05/25/2025 1:15 PM EDT Steve Veloz MD ECG ORDERABLES Final Result Performing Organization Address City/[facility]/ZIP Co de Phone Number MUSE ECG * MRCP w and wo IV Contrast (05/12/2025 1:19 PM EDT) Anatomical Region Laterality Modality Abdomen Magnetic Resonan ce Impressions 05/12/2025 4:44 PM EDT No definite evidence of metastatic disease in [...] Christi Mantilla DO on 05/12/2025 4:44 PM Narrative 05/12/2025 4:44 PM EDT CLINICAL INDICATION: Gallbladder cancer. Additional history of [...] (axial and coronal), and axial diffusion. Heavily T2-weighted 2D MRCP sequences were acquired. In addition, advanced [...] the anterior abdominal wall. No discrete fluid collections are visualized. Unchanged appearance of bilateral breast implants, with suspected right-sided rupture. Procedure Note Christi Mantilla, DO - 05/12/2025 CLINICAL INDICATION: Gallbladder cancer. Additional history of colon cancer status post righthemicolectomy. TECHNIQUE: MR imaging of the abdomen was performed with and without intravenouscontrast material using the following sequences: coronal single shot E6icigahay fast spin echo, axial T2 weighted sequences with and without fatsaturation, axial dual phase gradient echo, pre and dynamic postcontrast3-D T1 weighted gradient echo with fat saturation (axial and coronal), andaxial diffusion. Heavily T2-weighted 2D MRCP sequences were acquired. Inaddition, advanced 3D workstation manipulation and review of the data setwas performed by the interpreting physician to further define anatomy andpossible pathology. Images of areas of interest were created utilizingvarious techniques. These images were saved and transferred to PACS ifsignificant. 6.9 mL of Gadavist was administered. COMPARISON: Outside hospital CT 04/01/2025 FINDINGS: Liver: Normal morphology. Smooth, diffuse enhancement and mildly increasedT2 signal of the anterior liver capsule. No discrete nodularity. Patenthepatic vasculature. No steatosis or iron deposition. No suspicious liverlesion. Focus of fat necrosis along the falciform ligament (series 9 image18). Gallbladder: Surgically absent. No suspicious findings in thecholecystectomy bed. Biliary tree: No stricture, choledocholithiasis, epithelial thickening orabnormal enhancement. Spleen: Homogenous appearance. No suspicious lesions. Adrenal Glands: Morphologically unremarkable. Pancreas: Homogenous enhancement. No suspicious lesions. No pancreaticductal dilation. Kidneys: No hydronephrosis. No suspicious lesions. Fluid Survey: No free fluid. Vasculature: Patent abdominal aortoiliac vasculature with mildatherosclerosis. Patent portal venous system, hepatic veins, and IVC. Lymph Nodes: No morphologically abnormal or enlarged lymph nodes. Bones: No suspicious lesions. Posterior fusion construct at L4-L5. GI: Wall thickening and inflammation of the gastric pylorus, appearsrelatively unchanged from previous CT given technical differences.Postsurgical changes of prior right hemicolectomy. Other: Postsurgical changes are noted in the anterior abdominal wall. Nodiscrete fluid collections are visualized. Unchanged appearance ofbilateral breast implants, with suspected right-sided rupture. IMPRESSION: No definite evidence of metastatic disease in the abdomen. Smooth, diffuse enhancement of the liver capsule may be secondary torecent surgical intervention or reactive from the inflammatory changeswithin the gastric pylorus. No discrete nodularity to suggestcarcinomatosis. Recommend attention on follow-up. CRITICAL RESULT: No. COMMUNICATION: Per this written report. By electronically signing this report, I, the attending physician, edgar I have personally reviewed the images/data for the aboveexamination(s) and agree with the final edited report. Drafted by Mando Guy MD on 05/12/2025 2:53 PM Final report signed by Christi Mantilla DO on 05/12/2025 4:44 PM Steve Veloz MD IMG MRI PROCEDURES Final Res ult * APTT (05/11/2025 11:09 AM EDT) aPTT 26 25 - 35 sec LAB COAGULATION METHOD 05/11/2025 11:36 AM EDT [facility] Blood Venous blood specimen / Unknown Venipuncture / Unknown 05/11/2025 11:09 AM EDT 05/11/2025 11:17 AM EDT Steve Veloz MD LAB BLOOD ORDERABLES Final R esult [facility] [address] [place] [address] * Prothrombin Time/INR (05/11/2025 11:09 AM EDT) Prothrombin Time 12.9 12.0 - 14.3 sec LAB COAGULATION METHOD 05/11/2025 11:36 AM EDT [facility] INR 1.0 0.9 - 1.1 LAB COAGULATION METHOD 05/11/2025 11:36 AM EDT [facility] Blood Venous blood specimen / Unknown Venipuncture / Unknown 05/11/2025 11:09 AM EDT 05/11/2025 11:17 AM EDT Narrative [facility] - 05/11/2025 11:36 AM EDT OPTIMAL INR RANGES FOR PATIENT ON ORAL ANTICOAGULANT THERAPY Prevention of venous thromboembolism INR 2.0 to 3.0 In patients with heart disease: Atrial fibrillation INR 2.0 to 3.0 Valvular heart disease INR 2.0 to 3.0 Tissue heart valves INR 2.0 to 3.0 Mechanical prosthetic valves INR 2.5 to 3.5 Prevention of recurrent IA INR 2.5 to 3.5 us Steve Veloz MD LAB BLOOD ORDERABLES Final R esult [facility] [address] [place] [address] * Surgical Pathology Consult (05/05/2025 1:25 PM EDT) Case Report Sugical Pathology Consult Case: [id number] Authorizing Provider: Steve Veloz MD Collected: 05/05/20255 Ordering Location: [facility] Received: 05/05/2025 1325 Pathologist: Marbin Patterson MD Specimen: Gallbladder, [id number] 05/14/2025 5:17 PM EDT [facility] Final Diagnosis GALLBLADDER, SIMPLE CHOLECYSTECTOMY (OUTSIDE CASE: [id number] COLLECTED ON 03/25/2025): - INVASIVE WELL-DIFFERENTIATE D ADENOCARCINOMA, FUNDUS/BODY (APPROX. 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 In the provided planes of section, the perimuscular soft tissue margins appear to be uninvolved by carcinoma. There is no evidence of perineural invasion, however, an area suspicious for lymphovascular invasion is seen. 05/14/2025 5:17 PM EDT [facility] Clinical Information K81.9 - Cholecystitis, unspecified [ICD-10-CM] 05/14/2025 5:17 PM EDT [facility] Gross Description A. [id number] Received along with a corresponding pathology report from [facility] are 38 slide(s) labeled outside case: [id number] collected on 03/25/2025. 05/14/2025 5:17 PM EDT [facility] Tissue Gallbladder structure / Unknown 05/05/2025 1:25 PM EDT 05/05/2025 1:25 PM EDT us Steve Veloz MD LAB PATHOLOGY ORDERABLES Fin al Result [facility] [address] [place] [address] * CT OUTSIDE IMAGES (04/22/2025 1:50 PM EDT) Anatomical Region Laterality Modality Computed Tomogra phy 04/22/2025 1:50 PM EDT us External Provider IMG CT PROCEDURES Final Result from Last 3 Months Insurance MEDICARE [employer] Advance Directives Documents on File Type Date Recorded Patient Leather Polisher Expl anation Advance Directives and Living Will 05/25/2025 Power of Manufacturing Baker 05/25/2025 * Full Code (Latest Code Status on File) Date Activated Date Inactivated Comments 05/31/2025 4:54 PM 06/08/2025 4:32 PM Question Answer Comments I have reviewed the capacity from the link above and, if needed, have updated to appropriate status: Yes Care Teams Real Estate Internship Relationship Specialty Start Date End Date Efrain Angeles MD [address] [place] [address] PCP - General 04/03/24
--- OUTSIDE RECORDS SUMMARY | 2025-07-22 09:17 | XMS_ITS | Encounter Summary ---
Author Organization Healthcare Address [address] [place] [address] Care Team Providers Care Life Skills Specialist Name Role Phone Efrain Angeles MD Primary Care Provider [phone] Encounter Details Date Type Department Care Team ([facility] st Contact Info) Description 06/25/2025 Telephone [facility] [address] [place] [address] Steve Veloz MD [address] [address] Social History Tobacco Use Types Packs/Day Years [...] any time in the past 12 m ont, were you homeless or living in a half-way (including now)? No 06/01/2025 [facility] Utilities Answer Date Recorded In the [...] encounter Miscellaneous Notes * Telephone Encounter - Edilma Castro - 06/25/2025 10:34 AM EDT Patient Phone Message Reason for Call: Patient is asking for a later appt with [facility] and labs on 06/29. Please call patient and let her know. Best contact number and optimal time of day to reach caller: [phone] Note: Please do not reply to this message. Follow-up communication and further actions as a result of this message need to be communicated with the patient directly, if the patient is not active onMyChart. If the patient is active on MyChart, they will receive notification of the communication/outcome via [employer]. documented in this encounter Plan of Treatment Not on file documented as of this encounter Visit Diagnoses Not on filedocumented in this encounter Additional Health Concerns Assessment Noted Time A fall risk assessment has been complete d for the patient 06/16/2025 11:02 AM EDT A Body Mass Index follow-up plan has been documented for the patient 06/17/2025 10:12 AM EDT documented as of this encounter Care Teams Life Skills Specialist Relationship Specialty Start Date End Date Efrain [place] MD [address] [place] [address] PCP - General 04/03/24 documented as of this encounter
--- OUTSIDE RECORDS SUMMARY | 2025-07-22 09:17 | XMS_ITS | Encounter Summary ---
Author Organization Healthcare Address [address] [place] [address] Care Team Providers Care Glass Cutter Name Role Phone Nate Mills MD Primary Care Provider [phone] Efrain [place] MD Primary Care Provider [phone] Encounter Details Date Type Department Care Team (Late st Contact Info) Description 03/29/2023 Orders Only [facility] at [facility] [address] [place] [id number] Ebony Albrecht MD [address] [address] Social History Tobacco Use Types [...] - 4.7 ng/mL 03/29/2023 9:59 AM EDT [facility] Comment: This test was performed using the Abdelrahman Awilda E801 electrochemiluminescent method. Values obtained from different assay methods cannot be used interchangeably. . 03/29/2023 9:07 AM EDT 03/29/2023 9:22 AM EDT us Ebony Albrecht MD LAB BLOOD ORDERABLES Final Re sult [facility] [address] [place] [address], documented in this encounter Visit Diagnoses Not on filedocumented in this encounter Care Teams Glass Cutter Relationship Specialty Start Date End Date Nate Mills MD [address] [facility] [address] [place] [address] PCP - General 09/23/20 04/02/24 Efrain Angeles MD [address] [facility] [address] [place] [address] PCP - General 04/03/24 documented as of this encounter
--- OUTSIDE RECORDS SUMMARY | 2025-07-22 09:17 | XMS_ITS | Encounter Summary ---
Author Organization Healthcare Address [address] [place] [address] Care Team Providers Care Home Health Provider Name Role Phone Nate Mills MD Primary Care Provider [phone] Efrain Angeles MD Primary Care Provider [phone] Encounter Details Date Type Department Care Team (Late st Contact Info) Description 03/29/2023 Orders Only [facility] at [facility] [address] [place] [address] Ebony Albrecht MD [address] [address] Social History Tobacco Use Types [...] 74 - 100 mg/dL 03/29/2023 9:52 AM [facility] External BUN 16 6 - 20 mg/dL 03/29/2023 9:52 AM [facility] External Creatinine Blood 0.69 0.50 - 0.95 mg/dL 03/29/2023 9:52 AM [facility] External BUN/Creat Ratio 23(H) 10 - 20 (calc) 03/29/2023 9:52 AM [facility] External Sodium 140 136 - 145 mmol/L 03/29/2023 9:52 AM [facility] External Potassium 3.9 3.4 - 5.0 mmol/L 03/29/2023 9:52 AM [facility] External Chloride 102 98 - 107 mmol/L 03/29/2023 9:52 AM [facility] External Carbon Dioxide 28 22 - 31 mmol/L 03/29/2023 9:52 AM [facility] External Anion Gap (AG) 10 7 - 25 (calc) 03/29/2023 9:52 AM [facility] External Calcium 9.7 8.6 - 10.2 mg/dL 03/29/2023 9:52 AM [facility] External Total Protein 7.4 6.4 - 8.3 g/dL 03/29/2023 9:52 AM [facility] External Albumin 4.4 3.5 - 5.2 g/dL 03/29/2023 9:52 AM [facility] External Globulin 3.0 1.5 - 4.5 023 9:52 AM [facility] External Albumin/Globulin Ratio 1.5 1.1 - 2.5 (calc) 03/29/2023 9:52 AM [facility] External Bilirubin Total 0.6 0.1 - 1.2 mg/dL 03/29/2023 9:52 AM [facility] External Alkaline Phosphatase 107 30 - 121 U/L 03/29/2023 9:52 AM [facility] External AST (SGOT) 29 0 - 32 U/L 03/29/2023 9:52 AM [facility] External ALT (SGPT) 36(H) 0 - 33 U/L 03/29/2023 9:52 AM EDT [facility] External Estimated GFR 91 >=60 03/29/2023 9:52 AM EDT [facility] Comment: NOTE New calculation for GFR (CKD-EPI 2020) is formulated without race adjustment factors at the recommendation of the National Kidney Foundation and [place] [employer] Neph[employer]. This calculation has not been validated in women. For pediatric patients refer to https://www.kidney.org/professionals/KDOQI/gfr_calculatorPed 03/29/2023 9:07 AM EDT 03/29/2023 9:20 AM EDT us Ebony Albrecht MD LAB BLOOD ORDERABLES Final Re sult [facility] [address] [place] [address], documented in this encounter Visit Diagnoses Not on filedocumented in this encounter Care Teams Home Health Provider Relationship Specialty Start Date End Date Nate Mills MD [address] [facility] [address] [place] [address] PCP - General 09/23/20 04/02/24 Efrain Angeles MD [address] [facility] [address] [place] [address] PCP - General 04/03/24 documented as of this encounter
--- OUTSIDE RECORDS SUMMARY | 2025-07-22 09:17 | XMS_ITS | Encounter Summary ---
Author Organization Healthcare Address [address] [place] [address] Care Team Providers Care Rug Cleaning Supervisor Name Role Phone Nate Mills MD Primary Care Provider [phone] Efrain Angeles MD Primary Care Provider [phone] Encounter Details Date Type Department Care Team (Late st Contact Info) Description 03/29/2023 Orders Only [facility] at [facility] [address] [place] [phone] Ebony Albrecht MD [address] [address] Social History Tobacco Use Types [...] - 10.8 10*3/uL 03/29/2023 9:26 AM EDT [facility] External Red Blood Cell (RBC) 4.66 3.80 - 5.20 10*6/uL 03/29/2023 9:26 AM EDT [facility] External Hemoglobin 14.4 12.0 - 16.0 g/dL 03/29/2023 9:26 AM EDT [facility] External Hematocrit 42.6 35.0 - 47.0 % 03/29/2023 9:26 AM EDT [facility] External MCV 92 80 - 100 fL 03/29/2023 9:26 AM EDT [facility] External MCH 31 26 - 35 pg 03/29/2023 9:26 AM EDT [facility] External MCHC 34 32 - 36 g/dL 03/29/2023 9:26 AM EDT [facility] External RDW 13.7 11.0 - 15.0 % 03/29/2023 9:26 AM EDT [facility] External Mean Platelet Volume 9.7 6.2 - 10.5 fL 03/29/2023 9:26 AM EDT [facility] External Platelets 254 130 - 400 10*3/uL 03/29/2023 9:26 AM EDT [facility] External Neutrophil# 8.9(H) 1.6 - 8.4 10*3/uL 03/29/2023 9:26 AM EDT [facility] External Lymphocyte# 2.7 0.4 - 5.1 10*3/uL 03/29/2023 9:26 AM EDT [facility] External Absolute Monocyte (Abs Mcclain) 0.7 0.0 - 1.2 10*3/uL 03/29/2023 9:26 AM EDT [facility] External Eosinophils# 0.3 0.0 - 0.8 10*3/uL 03/29/2023 9:26 AM EDT [facility] External Baso# 0.1 0.0 - 0.3 10*3/uL 03/29/2023 9:26 AM EDT [facility] External Neutrophils % 70.2 42.0 - 78.0 % 03/29/2023 9:26 AM EDT [facility] External Lymphocyte % 20.9 11.0 - 47.0 % 03/29/2023 9:26 AM EDT [facility] External Monocyte % 5.6 0.0 - 11.0 % 03/29/2023 9:26 AM EDT [facility] External Eosinophil% 2.7 0.0 - 7.0 % 03/29/2023 9:26 AM EDT [facility] External Basophil % 0.6 0.0 - 3.0 % 03/29/2023 9:26 AM EDT [facility] External Nucleated RBC%-Auto 0.0 0.0 - 0.9 % 03/29/2023 9:26 AM EDT [facility] External Nucleated RBC Absolute 0.00 Not Estab. 10*3/uL 03/29/2023 9:26 AM EDT [facility] 03/29/2023 9:07 AM EDT 03/29/2023 9:22 AM EDT us Ebony Albrecht MD LAB BLOOD ORDERABLES Final Re sult [facility] [address] [place] [address], documented in this encounter Visit Diagnoses Not on filedocumented in this encounter Care Teams Rug Cleaning Supervisor Relationship Specialty Start Date End Date Nate Mills MD [facility] [address] [place] [address] PCP - General 09/23/20 04/02/24 Efrain Angeles MD [address] [facility] [address] [place] [address] PCP - General 04/03/24 documented as of this encounter
--- OUTSIDE RECORDS SUMMARY | 2025-07-22 09:17 | XMS_ITS | Encounter Summary ---
Author Organization Healthcare Address [address] [place] [address] Care Team Providers Care Picked Edge Sewing Machine Operator Name Role Phone Efrain Angeles MD Primary Care Provider [phone] Encounter Details Date Type Department Care Team ([facility] st Contact Info) Description 06/23/2025 Telephone [facility] [address] [place] [address] Steve Veloz MD [address] [address] Social History Tobacco Use Types Packs/Day Years [...] were you homeless or living in a residential (including now)? No 06/01/2025 [facility] Utilities Answer Date Recorded In the [...] encounter Miscellaneous Notes * Telephone Encounter - Sarah Alcantara - 06/23/2025 3:18 PM EDT Left message on identified voicemail that end date is 08/23/25. To call back/ send FastDuet if questions persist. * Telephone Encounter - Edilma Castro - 06/23/2025 2:16 PM EDT Patient Phone Message Reason for Call: Patient is calling to ask when her FMLA paperwork has an end date. She needs to report this to her insurance. Best contact number and optimal time of day to reach caller: [phone] Note: Please do not reply to this message. Follow-up communication and further actions as a result of this message need to be communicated with the patient directly, if the patient is not active onMyChart. If the patient is active on MyChart, they will receive notification of the communication/outcome via TeamBuyhart. documented in this encounter Plan of Treatment [...] documented as of this encounter Care Teams Picked Edge Sewing Machine Operator Relationship Specialty Start Date End Date Efrain Angeles MD [address] [place] [address] PCP - General 04/03/24 documented as of this encounter
--- OUTSIDE RECORDS SUMMARY | 2025-07-22 09:17 | XMS_ITS | Encounter Summary ---
Author Organization Healthcare Address [address] [place] [address] Care Team Providers Care Poker Dealer Name Role Phone Efrain Angeles MD Primary Care Provider [phone] Encounter Details Date Type Department Care Team (Latest Contact Info) Description 06/22/2025 Travel Social History Tobacco Use Types Packs/Day Years [...] any time in the past 12 m [facility], were you homeless or living in a longterm (including now)? No 06/01/2025 [facility] Utilities Answer Date Recorded In the [...] documented as of this encounter Care Teams Poker Dealer Relationship Specialty Start Date End Date Efrain Angeles MD [address] [place] [address] PCP - General 04/03/24 documented as of this encounter
--- OUTSIDE RECORDS SUMMARY | 2025-07-22 09:17 | XMS_ITS | Encounter Summary ---
Author Organization Healthcare Address [address] [place] [address] Care Team Providers Care Client Finance Analyst Name Role Phone Nate Mills MD Primary Care Provider [phone] Efrain Angeles MD Primary Care Provider [phone] Encounter Details Date Type Department Care Team ([facility] st Contact Info) Description 02/20/2024 Orders Only External Location 800 [place] [address] Provider, External Social History Tobacco Use Types [...] on filedocumented in this encounter Care Teams Client Finance Analyst Relationship Specialty Start Date End Date Nate Mills MD [address] [place], [place] [id number] PCP - General 09/23/20 04/02/24 Efrain Angeles MD [address] [place], [place] [address] PCP - General 04/03/24 documented as of this encounter
--- OUTSIDE RECORDS SUMMARY | 2025-07-22 09:17 | XMS_ITS | Encounter Summary ---
Author Organization Healthcare Address [address] [place] [address] Care Team Providers Care Manager University Name Role Phone Efrain Angeles MD Primary Care Provider [phone] Encounter Details Date Type Department Care Team (Latest Contact Info) Description 06/29/2025 Travel Social History Tobacco Use Types Packs/Day [...] time in the past 12 m [facility], were you homeless or living in a skilled nursing (including now)? No 06/01/2025 [facility] Utilities Answer Date Recorded In the [...] Dorie Barnett documented as of this encounter Plan of [...] documented as of this encounter Care Teams Manager University Relationship Specialty Start Date End Date Efrain Angeles MD [address] [place] [address] PCP - General 04/03/24 documented as of this encounter
--- OUTSIDE RECORDS SUMMARY | 2025-07-22 09:18 | XMS_ITS | Encounter Summary ---
Author Organization Healthcare Address [address] [place] [address] Care Team Providers Care Consumer Insight Analyst Name Role Phone Nate Mills MD Primary Care Provider [phone] Efrain Angeles MD Primary Care Provider [phone] Encounter Details Date Type Department Care Team (Late st Contact Info) Description 03/14/[address] [facility] @ [facility] [address] [place] [address] Efrain La, KOFI [address] [place] [address] Social History Tobacco Use Types Packs/Day Years [...] Sedimentation Rate 25 0 - 29 MM/HR [facility] 03/14/2021 1:48 PM EDT 03/14/2021 2:10 PM EDT Efrain KIRBY LAB BLOOD ORDERABLES Final R esult [facility] [address] [place] [address], documented in this encounter Visit Diagnoses Not on filedocumented in this encounter Care Teams Consumer Insight Analyst Relationship Specialty Start Date End Date Nate Mills MD [address] [facility] [place] [address] [place] [address] PCP - General 09/23/20 04/02/24 Efrain Angeles MD [address] [facility] [address] [place], [place] [id number] PCP - General 04/03/24 documented as of this encounter
--- OUTSIDE RECORDS SUMMARY | 2025-07-22 09:18 | XMS_ITS | Encounter Summary ---
Author Organization Healthcare Address [address] [place] [address] Care Team Providers Care Supervisor Livestock Yard Name Role Phone Nate Mills MD Primary Care Provider [phone] Efrain Angeles MD Primary Care Provider [phone] Encounter Details Date Type Department Care Team (Late st Contact Info) Description 03/20/2021 Orders Only [facility] @ [facility] [address] [place] [address] Ebony Albrecht MD [address] [address] Social History Tobacco Use Types [...] WBC 10.7 3.8 - 10.8 K/uL [facility] External Red Blood Cell (RBC) 4.31 3.80 - 5.20 M/uL [facility] External Hemoglobin 13.7 12.0 - 16.0 G/DL [facility] External Hematocrit 39.4 35.0 - 47.0 % [facility] External MCV 91 80 - 100 fL [facility] External MCH 32 26 - 35 PG [facility] External MCHC 35 32 - 36 G/DL [facility] External RDW 13.1 11.0 - 15.0 % [facility] External Mean Platelet Volume 9.4 6.2 - 10.5 fL [facility] External Platelets 264 130 - 400 K/uL [facility] External Neutrophil# 6.0 1.6 - 8.4 K/uL [facility] External Lymphocyte# 2.8 0.4 - 5.1 K/uL [facility] External Absolute Monocyte (Abs [place]) 0.7 0.0 - 1.2 K/uL [facility] External Eosinophils# 1.1(H) 0.0 - 0.8 K/uL [facility] External Baso# 0.1 0.0 - 0.3 K/uL [facility] External Neutrophils % 56.2 42.0 - 78.0 % [facility] External Lymphocyte % 26.2 11.0 - 47.0 % [facility] External Monocyte % 6.2 0.0 - 11.0 % [facility] External Eosinophil% 10.6(H) 0.0 - 7.0 % [facility] External Basophil % 0.8 0.0 - 3.0 % [facility] External Nucleated RBC%-Auto 0.0 0.0 - 0.9 % [facility] External Nucleated RBC Absolute 0.00 Not Estab. K/uL [facility] 03/20/2021 9:07 AM EDT 03/20/2021 9:25 AM EDT us Ebony Albrecht MD LAB BLOOD ORDERABLES Final Re sult [facility] [address] [place] [address], documented in this encounter Visit Diagnoses Not on filedocumented in this encounter Care Teams Supervisor Livestock Yard Relationship Specialty Start Date End Date Nate Mills MD 1210 [facility] [address] [place] [address] PCP - General 09/23/20 04/02/24 Efrain Angeles MD [address] [facility] [address] [place] [address] PCP - General 04/03/24 documented as of this encounter
--- OUTSIDE RECORDS SUMMARY | 2025-07-22 09:18 | XMS_ITS | Encounter Summary ---
Author Organization Healthcare Address [address] [place] [address] Care Team Providers Care General Activities Therapist Name Role Phone Efrain Angeles MD Primary Care Provider [phone] Encounter Details Date Type Department Care Team ([facility] st Contact Info) Description 04/27/2025 Telephone [facility] [address] [place] [address] Steve Veloz MD [address] [address] Social History Tobacco Use Types Packs/Day Years [...] Not at all 05/25/2025 10:53 AM EDT oDrie Barnett documented as of this encounter Plan of Treatment Not on file documented as of this encounter Visit Diagnoses Not on filedocumented in this encounter Additional Health Concerns Assessment Noted Time A Body Mass Index follow-up plan has been documented for the patient 04/20/2024 4:59 PM EDT documented as of this encounter Care Teams General Activities Therapist Relationship Specialty Start Date End Date Efrain Angeles MD [address] [place] [address] PCP - General 04/03/24 documented as of this encounter
--- OUTSIDE RECORDS SUMMARY | 2025-07-22 09:18 | XMS_ITS | Encounter Summary ---
Author Organization Healthcare Address [address] [place] [address] Care Team Providers Care Welder Apprentice Combination Name Role Phone Nate Mills MD Primary Care Provider [phone] Efrain Angeles MD Primary Care Provider [phone] Encounter Details Date Type Department Care Team (Late st Contact Info) Description 03/14/2021 Orders Only [facility] @ [facility] [address] [place] [address] Efrain La, KOFI [address] [place], [place] [id number] Social History Tobacco Use Types Packs/Day Years [...] C-Reactive Protein 0.15 0.00 - 0.49 mg/dL [facility] 03/14/2021 1:48 PM EDT 03/14/2021 2:09 PM EDT us Efrain KIRBY LAB BLOOD ORDERABLES Final R esult [facility] [address] [place] [address], documented in this encounter Visit Diagnoses Not on filedocumented in this encounter Care Teams Welder Apprentice Combination Relationship Specialty Start Date End Date Nate Mills MD [address] [facility] [address] [place] [address] PCP - General 09/23/20 04/02/24 Efrain Angeles MD [address] [facility] [address] [place] [address] PCP - General 04/03/24 documented as of this encounter
--- OUTSIDE RECORDS SUMMARY | 2025-07-22 09:18 | XMS_ITS | Encounter Summary ---
Author Organization Healthcare Address [address] [place] [address] Care Team Providers Care Clothing Sales Assistant Name Role Phone Nate Mills MD Primary Care Provider [phone] Efrain Angeles MD Primary Care Provider [phone] Encounter Details Date Type Department Care Team (Late st Contact Info) Description 03/20/2021 Orders Only [facility] @ [facility] [address] [place] [phone] Ebony Albrecht MD [address] [address] Social History Tobacco Use [...] 5.0(H) 0.0 - 4.7 ng/mL [facility] Comment: This test was performed using the Abdelrahman Awilda E801 electrochemiluminescent method. Values obtained from different assay methods cannot be used interchangeably. . 03/20/2021 9:07 AM EDT 03/20/2021 9:50 AM EDT us Ebony Albrecht MD LAB BLOOD ORDERABLES Final Re sult [facility] [address] [place] [address], documented in this encounter Visit Diagnoses Not on filedocumented in this encounter Care Teams Clothing Sales Assistant Relationship Specialty Start Date End Date Nate Mills MD 1210 [facility] [address] [place] [address] PCP - General 09/23/20 04/02/24 Efrain Angeles MD [address] [facility] [address] [place] [address] PCP - General 04/03/24 documented as of this encounter
--- OUTSIDE RECORDS SUMMARY | 2025-07-22 09:18 | XMS_ITS | Encounter Summary ---
Author Organization Healthcare Address [address] [place] [address] Care Team Providers Care Chief Risk Officer Name Role Phone Efrain Angeles MD Primary Care Provider [phone] Encounter Details Date Type Department Care Team ([facility] st Contact Info) Description 03/01/2025 Orders Only External Location [address] [place] [address] Provider, External Social History Tobacco Use Types [...] Procedure Name Priority Date/Time Associated Diagnosis Comments CT OUTSIDE IMAGES 03/01/2025 12:53 PM EDT documented in this encounter Results * CT OUTSIDE IMAGES (03/01/2025 12:53 PM EDT) Anatomical Region Laterality Modality Computed Tomogra phy 03/01/2025 12:5 3 PM EDT us External Provider IMG CT PROCEDURES Final Result documented in this encounter Visit Diagnoses Not on filedocumented in this encounter Additional Health Concerns Assessment Noted Time A Body Mass Index follow-up plan has been documented for the patient 04/20/2024 4:59 PM EDT documented as of this encounter Care Teams Chief Risk Officer Relationship Specialty Start Date End Date Efrain Angeles MD [address] [place] [address] PCP - General 04/03/24 documented as of this encounter
--- OUTSIDE RECORDS SUMMARY | 2025-07-22 09:18 | XMS_ITS | Encounter Summary ---
Author Organization Healthcare Address [address] [place] [address] Care Team Providers Care [employer] Teacher Name Role Phone Efrain Angeles MD Primary Care Provider [phone] Encounter Details Date Type Department Care Team (Late st Contact Info) Description 05/05/2025 Lab Requisition [facility] [address] [place] [address] Steve Veloz MD [address] [address] Cholecystitis, unspecified Social History Tobacco Use Types Packs/Day Years [...] Procedure Name Priority Date/Time Associated Diagnosis Comments SURGICAL PATHOLOGY CONSULT Routine 05/05/2025 1:25 PM EDT Cholecystitis, unspecified documented in this encounter Results * Surgical Pathology Consult (05/05/2025 1:25 PM EDT) Case Report Sugical Pathology Consult Case: [id number] Authorizing Provider: Steve Veloz MD Collected: 05/05/2025 1325 Ordering Location: [facility] Received: 05/05/2025 1325 Pathologist: Marbin Patterson MD Specimen: Gallbladder, [id number] 05/14/2025 5:17 PM EDT [facility] Final Diagnosis GALLBLADDER, SIMPLE CHOLECYSTECTOMY (OUTSIDE CASE: [id number] COLLECTED ON 03/25/2025): - INVASIVE WELL-DIFFERENTIATE D [...] LYMPH NODE (0/1) 05/14/2025 5:17 PM EDT [facility] at 1717 EDT Comment The specific location of perimuscular invasion (peritoneal or hepatic) is unable to be determined. In the provided planes of section, the perimuscular soft tissue margins appear to be uninvolved by carcinoma. There is no evidence of perineural invasion, however, an area suspicious for lymphovascular invasion is seen. 05/14/2025 5:17 PM EDT [facility] Clinical Information K81.9 - Cholecystitis, unspecified [ICD-10-CM] 05/14/2025 5:17 PM EDT [facility] Gross Description A. [id number] Received along with a corresponding pathology report from [facility] are 38 slide(s) labeled outside case: [id number] collected on 03/25/2025. 05/14/2025 5:17 PM EDT [facility] Tissue Gallbladder structure / Unknown 05/05/2025 1:25 PM EDT 05/05/2025 1:25 PM EDT us Steve Veloz MD LAB PATHOLOGY ORDERABLES Fin al Result [facility] [address] [place] [address] documented in this encounter Visit Diagnoses Diagnosis Cholecystitis, unspecified documented in this encounter Additional Health Concerns Assessment Noted Time A Body Mass Index follow-up plan has been documented for the patient 04/20/2024 4:59 PM EDT documented as of this encounter Care Teams [employer] Teacher Relationship Specialty Start Date End Date Efrain Angeles MD [address] [place] [address] PCP - General 04/03/24 documented as of this encounter
--- OUTSIDE RECORDS SUMMARY | 2025-07-22 09:18 | XMS_ITS | Encounter Summary ---
Author Organization Healthcare Address [address] [place] [address] Care Team Providers Care Cold Storage Superintendent Name Role Phone Nate Mills MD Primary Care Provider [phone] Efrain Angeles MD Primary Care Provider [phone] Encounter Details Date Type Department Care Team (Late st Contact Info) Description 03/23/2022 Orders Only [facility] [address] [place] [id number] Ebony Albrecht MD [address] [address] Social History Tobacco Use Types [...] Carcinoembryonic Antigen 4.2 0.0 - 4.7 ng/mL [facility] Comment: This test was performed using the Abdelrahman Awilda E801 electrochemiluminescent method. Values obtained from different assay methods cannot be used interchangeably. . 03/23/2022 9:07 AM EDT 03/23/2022 9:25 AM EDT us Ebony Albrecht MD LAB BLOOD ORDERABLES Final Re sult [facility] [address] [place] [address], documented in this encounter Visit Diagnoses Not on filedocumented in this encounter Care Teams Cold Storage Superintendent Relationship Specialty Start Date End Date Nate Mills MD 1210 [facility] [address] [place] [address] PCP - General 09/23/20 04/02/24 Efrain Angeles MD 1210 [facility] [address] [place] [address] PCP - General 04/03/24 documented as of this encounter
--- OUTSIDE RECORDS SUMMARY | 2025-07-22 09:18 | XMS_ITS | Encounter Summary ---
Author Organization Healthcare Address [address] [place] [address] Care Team Providers Care Division Roadmaster Name Role Phone Nate Mills MD Primary Care Provider [phone] Efrain Angeles MD Primary Care Provider [phone] Encounter Details Date Type Department Care Team (Late st Contact Info) Description 03/20/2021 Orders Only [facility] @ [facility] [address] [place] [address] Ebony Albrecht MD [address] [address] Social History Tobacco Use Types [...] External Glucose 91 74 - 100 mg/dL [facility] External BUN 18 6 - 20 mg/dL [facility] External Creatinine Blood 0.69 0.50 - 0.95 mg/dL [facility] External BUN/Creat Ratio 26(H) 10 - 20 (calc) [facility] External Sodium 143 136 - 145 mmol/L [facility] External Potassium 3.8 3.4 - 5.0 mmol/L [facility] External Chloride 104 98 - 107 mmol/L [facility] External Carbon Dioxide 29 22 - 31 mmol/L [facility] External Anion Gap (AG) 10 7 - 25 (calc) [facility] External Calcium 10.0 8.6 - 10.2 mg/dL [facility] External Total Protein 6.8 6.4 - 8.3 g/dL [facility] External Albumin 4.2 3.5 - 5.2 g/dL [facility] External Globulin 2.6 1.5 - 4.5 g/dL (calc) [facility] External Albumin/Globulin Ratio 1.6 1.1 - 2.5 (calc) [facility] External Bilirubin Total 0.4 0.1 - 1.2 mg/dL [facility] External Alkaline Phosphatase 98 35 - 106 U/L [facility] External AST (SGOT) 21 0 - 32 U/L [facility] External ALT (SGPT) 16 0 - 33 U/L [facility] External EGFR (If AFR/AM) 101 >=60 [facility] External Estimated GFR 87 >=60 [facility] Comment: NOTE Chronic kidney disease is [...] Re sult [facility] [address] [place] [address], documented in this encounter Visit Diagnoses Not on filedocumented in this encounter Care Teams Division Roadmaster Relationship Specialty Start Date End Date Nate Mills MD 1210 [facility] [address] [place], [place] [id number] PCP - General 09/23/20 04/02/24 Efrain Angeles MD 1210 [facility] [address] [address] PCP - General 04/03/24 documented as of this encounter
--- OUTSIDE RECORDS SUMMARY | 2025-07-22 09:18 | XMS_ITS | Encounter Summary ---
Author Organization Healthcare Address [address] [place] [address] Care Team Providers Care Solar Water Heater Installer Name Role Phone Nate Mills MD Primary Care Provider [phone] Efrain Angeles MD Primary Care Provider [phone] Encounter Details Date Type Department Care Team (Late st Contact Info) Description 03/23/[address] [facility] [address] [place] [address] Ebony Albrecht MD [address] [address] Social History Tobacco Use [...] External WBC 14.0(H) 3.8 - 10.8 K/uL [facility] External Red Blood Cell (RBC) 4.33 3.80 - 5.20 M/uL [facility] External Hemoglobin 13.3 12.0 - 16.0 G/DL [facility] External Hematocrit 39.2 35.0 - 47.0 % [facility] External MCV 91 80 - 100 fL [facility] External MCH 31 26 - 35 PG [facility] External MCHC 34 32 - 36 G/DL [facility] External RDW 13.2 11.0 - 15.0 % [facility] External Mean Platelet Volume 9.6 6.2 - 10.5 fL [facility] External Platelets 248 130 - 400 K/uL [facility] External Neutrophil# 9.3(H) 1.6 - 8.4 K/uL [facility] External Lymphocyte# 3.0 0.4 - 5.1 K/uL [facility] External Absolute Monocyte (Abs [facility]) 0.7 0.0 - 1.2 K/uL [facility] External Eosinophils# 0.8 0.0 - 0.8 K/uL [facility] External Baso# 0.2 0.0 - 0.3 K/uL [facility] External Neutrophils % 66.7 42.0 - 78.0 % [facility] External Lymphocyte % 21.2 11.0 - 47.0 % [facility] External Monocyte % 5.1 0.0 - 11.0 % [facility] External Eosinophil% 5.8 0.0 - 7.0 % [facility] External Basophil % 1.2 0.0 - 3.0 % [facility] External Nucleated RBC%-Auto 0.1 0.0 - 0.9 % [facility] External Nucleated RBC Absolute 0.01 Not Estab. K/uL [facility] 03/23/2022 9:07 AM EDT 03/23/2022 9:25 AM EDT us Ebony Albrecht MD LAB BLOOD ORDERABLES Final Re sult [facility] [address] [place] [address], documented in this encounter Visit Diagnoses Not on filedocumented in this encounter Care Teams Solar Water Heater Installer Relationship Specialty Start Date End Date Nate Mills MD 1210 [facility] [address] [place] [address] PCP - General 09/23/20 04/02/24 Efrain Angeles MD 1210 [facility] [address] [place] [address] PCP - General 04/03/24 documented as of this encounter
--- OUTSIDE RECORDS SUMMARY | 2025-07-22 09:18 | XMS_ITS | Encounter Summary ---
Author Organization Healthcare Address [address] [place] [address] Care Team Providers Care Ccnp Name Role Phone Nate Mills MD Primary Care Provider [phone] Efrain Angeles MD Primary Care Provider [phone] Encounter Details Date Type Department Care Team (Late st Contact Info) Description 03/14/2021 Orders Only [facility] [address] [place] [address] Efrain La, KOFI [address] [place] [address] Social History Tobacco Use Types Packs/Day Years [...] EDT) External D-Dimer 1.12(H) <0.50 mcg/mL FEU [facility] Comment: The D-Dimer test is used [...] 11:295(2):199-207] For additional information, please refer to: http://education.GateGuru/faq/MHQ902 (This link is being provided for informational/ educational purposes only) TEST PERFORMED AT: [facility] [place] [address] [place] [address] HARVINDER CULVER M.D. 03/14/2021 1:48 PM EDT 03/14/2021 2:38 PM EDT us Efrain KIRBY LAB BLOOD ORDERABLES Final R esult [facility] [address] [place] [address], documented in this encounter Visit Diagnoses Not on filedocumented in this encounter Care Teams Ccnp Relationship Specialty Start Date End Date Nate Mills MD 12[address] [facility] [address] [place] [address] PCP - General 09/23/20 04/02/24 Efrain Angeles MD 1210 [facility] [address] [facility] [place] [id number] PCP - General 04/03/24 documented as of this encounter
--- OUTSIDE RECORDS SUMMARY | 2025-07-22 09:18 | XMS_ITS | Encounter Summary ---
Author Organization Healthcare Address [address] [place] [address] Care Team Providers Care Copy Worker Name Role Phone Nate Mills MD Primary Care Provider [phone] Efrain Angeles MD Primary Care Provider [phone] Encounter Details Date Type Department Care Team (Late st Contact Info) Description 03/23/2022 Orders Only [facility] [address] [place] [address] Ebony Albrecht MD [address] [address] Social History Tobacco Use Types [...] External Glucose 116(H) 74 - 100 mg/dL [facility] External BUN 15 6 - 20 mg/dL [facility] External Creatinine Blood 0.67 0.50 - 0.95 mg/dL [facility] External BUN/Creat Ratio 22(H) 10 - 20 (calc) [facility] External Sodium 141 136 - 145 mmol/L [facility] External Potassium 3.3(L) 3.4 - 5.0 mmol/L [facility] External Chloride 103 98 - 107 mmol/L [facility] External Carbon Dioxide 27 22 - 31 mmol/L [facility] External Anion Gap (AG) 11 7 - 25 (calc) [facility] External Calcium 9.5 8.6 - 10.2 mg/dL [facility] External Total Protein 7.0 6.4 - 8.3 g/dL [facility] External Albumin 4.2 3.5 - 5.2 g/dL [facility] External Globulin 2.8 1.5 - 4.5 g/dL (calc) [facility] External Albumin/Globulin Ratio 1.5 1.1 - 2.5 (calc) [facility] External Bilirubin Total 0.4 0.1 - 1.2 mg/dL [facility] External Alkaline Phosphatase 104 30 - 121 U/L [facility] External AST (SGOT) 19 0 - 32 U/L [facility] External ALT (SGPT) 17 0 - 33 U/L [facility] External Estimated GFR 92 >=60 [facility] Comment: NOTE New calculation for GFR (CKD-EPI 2020) is formulated without race adjustment factors at the recommendation of the National Kidney Foundation and [place] [employer]ph[employer]. This calculation has not been validated in women. For pediatric patients refer to https://www.kidney.org/professionals/KDOQI/gfr_calculatorPed 03/23/2022 9:07 AM EDT 03/23/2022 9:25 AM EDT us Ebony Albrecht MD LAB BLOOD ORDERABLES Final Re sult [facility] [address] [place] [place] [id number], [place] [phone] documented in this encounter Visit Diagnoses Not on filedocumented in this encounter Care Teams Copy Worker Relationship Specialty Start Date End Date Nate Mills MD 1210 [facility] [address] [place] [address] PCP - General 09/23/20 04/02/24 Efrain Angeles MD 1210 [facility] [address] [place] [address] PCP - General 04/03/24 documented as of this encounter
--- OUTSIDE RECORDS SUMMARY | 2025-07-22 09:19 | XMS_ITS | Encounter Summary ---
Author Organization [facility] Address [address] [place] [address] Care Team Providers Care Air Reduction Equipment Operator Name Role Phone Efrain Angeles MD Primary Care Provider [phone] Reason for Visit * Reason Onset Date Comments [facility] 06/10/2025 Encounter Details Date Type Department Care Team (Late st Contact Info) Description 06/10/2025 Telephone [facility] [address] [place] [address] Reina Ortega, CORRESPONDENCE SECTION SUPERVISOR [address] [place] [address] [facility] Social History Tobacco Use Types Packs/Day Years [...] any time in the past 12 m [facility], were you homeless or living in a mcc (including now)? No 06/01/2025 [facility] Utilities Answer Date Recorded In the [...] things Not at all 06/16/2025 11:06 AM [facility] Kalina Arellano Feeling down, depressed, or hopeless [...] encounter Miscellaneous Notes * Telephone Encounter - Alison Cooley - 06/17/2025 11:47 AM EDT Appointment follow-up: Care Guide (CG) called the patient (pt) at and successfully completed outreach. Pt attended appointment on 06/16/25. Pt transferred to Clinic for questions about short term disability as requested. * Telephone Encounter - Alison Cooley - 06/15/2025 9:10 AM EDT Attempt 1: Care Guide (CG) called the patient (pt) at and successfully completed outreach. Pt will attend appointment on 06/16/25 at 11:30am No additional assistance needed at this time. * Telephone Encounter - Alison Cooley - 06/10/2025 2:11 PM EDT Attempt 1: Care Guide (CG) called the patient (pt) at and successfully completed outreach. Pt reported they are doing well and have no needs at this time. documented in this encounter Plan of Treatment [...] documented as of this encounter Care Teams Air Reduction Equipment Operator Relationship Specialty Start Date End Date Efrain Angeles MD [address] [place] [address] PCP - General 04/03/24 documented as of this encounter
--- OUTSIDE RECORDS SUMMARY | 2025-07-22 09:19 | XMS_ITS | Encounter Summary ---
Author Organization Healthcare Address [address] [place] [address] Care Team Providers Care Communication Equipment Mechanic Name Role Phone Efrain Angeles MD Primary Care Provider [phone] Encounter Details Date Type Department Care Team (Latest Contact Info) Description 06/16/2025 Travel Social History Tobacco Use Types Packs/Day [...] any time in the past 12 m [facility], were you homeless or living in a correction (including now)? No 06/01/2025 [facility] Utilities Answer Date Recorded In the [...] way Not at all 06/16/2025 11:06 AM M[facility]ERT Kalina Arellano documented as of this encounter Plan of [...] documented as of this encounter Care Teams Communication Equipment Mechanic Relationship Specialty Start Date End Date Efrain Angeles MD [address] [place] [address] PCP - General 04/03/24 documented as of this encounter
--- OUTSIDE RECORDS SUMMARY | 2025-07-22 09:19 | XMS_ITS | Encounter Summary ---
Author Organization Healthcare Address [address] [place] [address] Care Team Providers Care Clinical Laboratory Technologist Name Role Phone Efrain Angeles MD Primary Care Provider [phone] Encounter Details Date Type Department Care Team ([facility] st Contact Info) Description 04/01/2025 Orders Only External Location [address] [place] [address] Marbin Cartwright, [address] [place] [address] Social History Tobacco Use Types Packs/Day Years [...] Date/Time Associated Diagnosis Comments CT OUTSIDE IMAGES 04/01/2025 5:42 PM EDT documented in this encounter Results * CT OUTSIDE IMAGES (04/01/2025 5:42 PM EDT) Anatomical Region Laterality Modality Computed Tomogra phy 04/01/2025 5:42 PM EDT Marbin Cartwright DO IMG CT PROCEDURES Final Resu lt documented in this encounter Visit Diagnoses Not on filedocumented in this encounter Additional Health Concerns Assessment Noted Time A Body Mass Index follow-up plan has been documented for the patient 04/20/2024 4:59 PM EDT documented as of this encounter Care Teams Clinical Laboratory Technologist Relationship Specialty Start Date End Date Efrain Angeles MD [address] [place] [address] PCP - General 04/03/24 documented as of this encounter
--- OUTSIDE RECORDS SUMMARY | 2025-07-22 09:19 | XMS_ITS | Encounter Summary ---
Author Organization Healthcare Address [address] [place] [address] Care Team Providers Care Tuna Purse Seiner Name Role Phone Efrain Angeles MD Primary Care Provider [phone] Encounter Details Date Type Department Care Team ([facility] st Contact Info) Description 05/25/2025 Telephone [facility] [address] [place] [address] Steve Veloz MD [address] [address] Social History Tobacco Use Types Packs/Day Years [...] encounter Miscellaneous Notes * Telephone Encounter - Candace Lindsay RN - 05/25/2025 12:41 PM EDT Pt seen in clinic * Telephone Encounter - Kathrine Moreno - 05/25/2025 10:00 AM EDT Patient Phone Message Reason for Call: Patient calling to speak to a nurse with a question before her appointment today at 11. Call transferred to nurse. Best contact number and optimal time of day to reach caller: [phone] Note: Please do not reply to this message. Follow-up communication and further actions as a result of this message need to be communicated with the patient directly, if the patient is not active onMyChart. If the patient is active on MyChart, they will receive notification of the communication/outcome via [employer]. documented in this encounter Plan of Treatment [...] documented as of this encounter Care Teams Tuna Purse Seiner Relationship Specialty Start Date End Date Efrain Angeles MD [address] [place] [address] PCP - General 04/03/24 documented as of this encounter
--- OUTSIDE RECORDS SUMMARY | 2025-07-22 09:19 | XMS_ITS | Encounter Summary ---
Author Organization Healthcare Address [address] [place] [address] Care Team Providers Care Rough Rice Grader Name Role Phone Efrain Angeles MD Primary Care Provider [phone] Encounter Details Date Type Department Care Team ([facility] st Contact Info) Description 06/10/2025 Telephone [facility] [address] [place] [address] Steve Veloz MD [address] [address] Social History Tobacco Use Types Packs/Day Years [...] any time in the past 12 m [facility], were you homeless or living in a long-term (including now)? No 06/01/2025 [facility] Utilities Answer Date Recorded In the [...] Telephone Encounter - Candace Lindsay RN - 06/10/2025 12:16 PM EDT Called and spoke with patient, let her know it is okay to administer injection to abdomen or upper thighs. She verbalized understanding and had no further questions. * Telephone Encounter - Jeffy Saldana - 06/10/2025 11:57 AM EDT Patient Phone Message Reason for Call: Ms. Holly is calling to ask Dr. Cavnar can she inject her medication (blood thinner) that she came home with can she inject it in her upper thigh? She said her arms are bruised so badly from the injections, she is asking if someone could give her a quick call back please Best contact number and optimal time of day to reach caller: [phone] Note: Please do not reply to this message. Follow-up communication and further actions as a result of this message need to be communicated with the patient directly, if the patient is not active onMyChart. If the patient is active on MyChart, they will receive notification of the communication/outcome via [employer]Spa. documented in this encounter Plan of Treatment [...] documented as of this encounter Care Teams Rough Rice Grader Relationship Specialty Start Date End Date Efrain Angeles MD [address] [place] [address] PCP - General 04/03/24 documented as of this encounter
--- OUTSIDE RECORDS SUMMARY | 2025-07-22 09:19 | XMS_ITS | Encounter Summary ---
Author Organization Healthcare Address [address] [place] [address] Care Team Providers Care Manager Access Name Role Phone Efrain Angeles MD Primary Care Provider [phone] Encounter Details Date Type Department Care Team (Latest Contact Info) Description 05/24/2025 Travel Social History Tobacco Use Types Packs/Day [...] has been complete d for the patient 05/11/2025 10:53 AM EDT A Body Mass Index follow-up plan has been documented for the patient 05/20/2025 2:02 PM EDT documented as of this encounter Care Teams Manager Access Relationship Specialty Start Date End Date Efrain Angeles MD [address] [place] [address] PCP - General 04/03/24 documented as of this encounter
--- OUTSIDE RECORDS SUMMARY | 2025-07-22 09:20 | XMS_ITS | Encounter Summary ---
Author Organization Healthcare Address [address] [place] [address] Care Team Providers Care Deputy Court Clerk Name Role Phone Efrain Angeles MD Primary Care Provider [phone] Encounter Details Date Type Department Care Team ([facility] st Contact Info) Description 05/27/2025 Telephone [facility] [address] [place] [address] Steve Veloz MD [address] [address] Social History Tobacco Use Types Packs/Day Years [...] * Telephone Encounter - Sarah Alcantara - 05/27/2025 3:53 PM EDT Attending Physician's Statement completed and faxed to [employer] at [phone]. * Telephone Encounter - Sarah Alcantara - 05/27/2025 3:51 PM EDT Received email from [employer] with Attending Physician's Statement to complete. Will have completed by the end of the day. Edilma relayed message to patient. * Telephone Encounter - Edilma Castro - 05/27/2025 9:14 AM EDT Patient Phone Message Reason for Call: Patient is returning call from Sarah Best contact number and optimal time of day to reach caller: [phone] Note: Please do not reply to this message. Follow-up communication and further actions as a result of this message need to be communicated with the patient directly, if the patient is not active onMyChart. If the patient is active on MyChart, they will receive notification of the communication/outcome via [employer]. documented in this encounter Plan of Treatment [...] documented as of this encounter Care Teams Deputy Court Clerk Relationship Specialty Start Date End Date Efrain Angeles MD [address] [place] [address] PCP - General 04/03/24 documented as of this encounter
--- OUTSIDE RECORDS SUMMARY | 2025-07-22 09:20 | XMS_ITS | Encounter Summary ---
Author Organization Healthcare Address [address] [place] [address] Care Team Providers Care Mandrel Cleaner Name Role Phone Efrain Angeles MD Primary Care Provider [phone] Encounter Details Date Type Department Care Team (Latest Contact Info) Description 05/25/2025 Travel Social History Tobacco Use Types Packs/Day [...] documented as of this encounter Care Teams Mandrel Cleaner Relationship Specialty Start Date End Date Efrain Angeles MD [address] [place] [address] PCP - General 04/03/24 documented as of this encounter
--- OUTSIDE RECORDS SUMMARY | 2025-07-22 09:20 | XMS_ITS | Encounter Summary ---
Author Organization Healthcare Address [address] [place] [address] Care Team Providers Care Pecan Grower Name Role Phone Efrain Angeles MD Primary Care Provider [phone] Encounter Details Date Type Department Care Team (Latest Contact Info) Description 05/31/2025 Travel Social History Tobacco Use Types Packs/Day [...] any time in the past 12 m [facility], were you homeless or living in a fci (including now)? No 06/01/2025 [facility] Utilities Answer Date Recorded In the [...] Varma RN documented as of this encounter Plan of [...] documented as of this encounter Care Teams Pecan Grower Relationship Specialty Start Date End Date Efrain Angeles MD [address] [place] [address] PCP - General 04/03/24 documented as of this encounter
--- OUTSIDE RECORDS SUMMARY | 2025-07-22 09:20 | XMS_ITS | Encounter Summary ---
Author Organization Healthcare Address [address] [place] [address] Care Team Providers Care Sound Editor Name Role Phone Efrain Angeles MD Primary Care Provider [phone] Encounter Details Date Type Department Care Team ([facility] st Contact Info) Description 05/26/2025 Telephone [facility] [address] [place] [address] Steve Veloz MD [address] [address] Social History Tobacco Use Types Packs/Day Years [...] Telephone Encounter - Sarah Alcantara - 05/27/2025 8:45 AM EDT Left message for patient to call back. Only fax received from [employer] was 2 pages, 1st page included claim number and request for records, 2nd page blank. No form to complete. * Telephone Encounter - Candace Lindsay RN - 05/26/2025 3:42 PM EDT Called and spoke with patient, she was asking if we received paperwork for STD. They are needing clinical notes with claim number sent. Provider also needs to fill out form to extend STD before lapsing on Saturday. * Telephone Encounter - Jeffy Saldana - 05/26/2025 3:05 PM EDT Patient Phone Message Reason for Call: Ms. Holly is wanting Dr. Veloz nurse to give her a call back please Best contact number and optimal time of day to reach caller: [phone] Note: Please do not reply to this message. Follow-up communication and further actions as a result of this message need to be communicated with the patient directly, if the patient is not active onMyChart. If the patient is active on MyChart, they will receive notification of the communication/outcome via [employer]VPHD. documented in this encounter Plan of Treatment [...] documented as of this encounter Care Teams Sound Editor Relationship Specialty Start Date End Date Efrain Angeles MD [address] [place] [address] PCP - General 04/03/24 documented as of this encounter
[2025-07-22 10:04] LABS: Hematocrit 42.4 % (37.0-47.0); Hemoglobin 14.0 g/dL (12.2-16.2); Immature Granulocytes % 0.3 %; Mean Corpuscular HGB Conc 33.0 g/dL (31.8-35.4); Mean Corpuscular Hemoglobin 30.4 pg (27.0-31.2); Mean Corpuscular Volume 92.0 fl (81-99); Nucleated Red Blood Cells % 0 %; Platelet Count 322 K/mm3 (142-424); Red Blood Count 4.61 M/mm3 (4.20-5.40); Red Cell Distribution Width-SD 43.2 fL; White Blood Count 9.1 K/mm3 (4.8-10.8)
[2025-07-22 10:28] LABS: Alanine Aminotransferase 23 U/L (12-78); Albumin Level 3.5 g/dl (3.5-5.0); Albumin/Globulin Ratio 0.9 (1.1-1.8); Alkaline Phosphatase 142 U/L (38-126); Anion Gap 10.8 mEq/L (5-15); Aspartate Amino Transferase 38 U/L (14-36); Bilirubin,Total 0.5 mg/dl (0.2-1.3); Blood Urea Nitrogen 18 mg/dl (7-17); Calcium 10.1 mg/dl (8.4-10.2); Carbon Dioxide 29 mmol/L (22.0-30.0); Chloride 101 mmol/L (98-107); Creatinine,Serum 0.80 mg/dl (0.52-1.04); Estimated Glomerular Filt Rate 70 ml/min (>60); GFR (African American) 85 ML/MIN (>60); Globulin 3.8 g/dL (1.3-3.2); Glucose 104 mg/dl (74-100); Potassium 3.8 mmoL/L (3.5-5.1); Sodium 137 mmol/L (136-145); Total Protein,Serum 7.3 g/dl (6.3-8.2)
== END 2025-07-22 23:59 | disposition home or self-care (01) ==
LOC: LAB 09:08
PROVIDERS: PCP Family Medicine; Visit Provider Internal Medicine Medical Oncology
DX: C23 Malignant neoplasm of gallbladder (principal)
CPT/HCPCS: 36415; 80053; 85025

== ENCOUNTER 2025-08-10 14:50 | Outpatient (CLI) | payer MEDICARE, SELFPAY ==
[2025-08-10 15:21] LABS: Hematocrit 40.3 % (37.0-47.0); Hemoglobin 13.1 g/dL (12.2-16.2); Immature Granulocytes % 0.2 %; Mean Corpuscular HGB Conc 32.5 g/dL (31.8-35.4); Mean Corpuscular Hemoglobin 30.0 pg (27.0-31.2); Mean Corpuscular Volume 92.2 fl (81-99); Nucleated Red Blood Cells % 0 %; Platelet Count 301 K/mm3 (142-424); Red Blood Count 4.37 M/mm3 (4.20-5.40); Red Cell Distribution Width-SD 42.9 fL; White Blood Count 8.5 K/mm3 (4.8-10.8)
[2025-08-10 15:53] LABS: Alanine Aminotransferase 21 U/L (12-78); Albumin Level 4.0 g/dl (3.5-5.0); Albumin/Globulin Ratio 1.6 (1.1-1.8); Alkaline Phosphatase 98 U/L (38-126); Anion Gap 8.5 mEq/L (5-15); Aspartate Amino Transferase 32 U/L (14-36); Bilirubin,Total 0.4 mg/dl (0.2-1.3); Blood Urea Nitrogen 12 mg/dl (7-17); Calcium 9.6 mg/dl (8.4-10.2); Carbon Dioxide 28 mmol/L (22.0-30.0); Chloride 103 mmol/L (98-107); Creatinine,Serum 0.90 mg/dl (0.52-1.04); Estimated Glomerular Filt Rate 61 ml/min (>60); GFR (African American) 74 ML/MIN (>60); Globulin 2.5 g/dL (1.3-3.2); Glucose 95 mg/dl (74-100); Potassium 3.5 mmoL/L (3.5-5.1); Sodium 136 mmol/L (136-145); Total Protein,Serum 6.5 g/dl (6.3-8.2)
== END 2025-08-10 23:59 | disposition home or self-care (01) ==
LOC: LAB 14:52
PROVIDERS: PCP Family Medicine; Visit Provider Internal Medicine Medical Oncology
DX: C23 Malignant neoplasm of gallbladder (principal)
CPT/HCPCS: 36415; 80053; 85025

== ENCOUNTER 2025-08-17 08:15 | Outpatient (CLI) | payer MEDICARE, SELFPAY ==
--- OUTSIDE RECORDS SUMMARY | 2025-06-29 14:10 | XMS_ITS | Encounter Summary ---
Author Organization Healthcare Address [address] [place] [address] Care Team Providers Care Finished Garment Inspector Name Role Phone Efrain Angeles MD Primary Care Provider [phone] Reason for Visit * Reason Comments Follow-up Encounter Details Date Type Department Care Team (Latest Contact Info) Description 06/29/2025 3:10 PM EDT Office Visit [facility] Multidisciplinary Oncology Clinic [address] [place] [address] Steve Veloz MD [address] [phone] Gallbladder cancer (Primary Dx) Social History Tobacco Use Types Packs/Day Years Used Date Smoking Tobacco: Never Smokeless Tobacco: Never Alcohol Use Standard Drinks/Week Comments No 0 (1 standard drink = 0.6 oz pur e alcohol) PHQ-2 Answer Date Recorded Patient Health Questionnaire-2 Score 0 06/29/2025 Humiliation, Afraid, Rape, and Kick questionnair e [...] any time in the past 12 m [facility], were you homeless or living in a penitentiary (including now)? No 06/01/2025 [facility] Utilities Answer Date Recorded In the [...] Sign Reading Time Taken Comments Blood Pressure 98/66 06/29/2025 2:19 PM EDT Pulse 80 06/29/2025 2:19 PM EDT Temperature 36.4 C (97.5 F) 06/29/2025 2:19 PM EDT Respiratory Rate - - Oxygen Saturation 95% 06/29/2025 2:19 PM EDT Inhaled Oxygen Concentration - - Weight 62 kg (136 lb 11 oz) 06/29/2025 2:19 PM E DT Height 165.1 cm (5' 5 ) 06/29/2025 2:19 PM EDT Body Mass Index 22.75 06/29/2025 2:19 PM EDT documented in this encounter Functional Status * Over the past 2 weeks, how often have you been bothered by any of the following problems? Question Answer Date of Assessment Author Little interest or pleasure in doing things Not at all 06/29/2025 2:24 PM EDT Dorie Barnett Feeling down, depressed, or hopeless Not at all 03/2025 2:24 PM EDT Dorie Barnett Patient Health Questionnaire-2 Score 0 03/2025 2:24 PM EDT Dorie Barnett * Question Answer Date of Assessment Author Thoughts that you would be b davon off or hurting yourself in some way Not at all 06/29/2025 2:24 PM EDT Dorie Barnett documented as of this encounter Miscellaneous Notes * Progress Notes - Reina Ortega APRN - 06/29/2025 3:10 PM EDT Surgical Oncology Outpatient [Progress note] Verbal [...] of Present Illness: History of Present Illness The patient is a 74-year-old female with stage II gallbladder cancer, initially diagnosed in 05/2025. She underwent surgery for gallbladder cancer and is here for her second postoperative visit. Since her last visit 2 weeks ago, she reports gradual improvement in her condition. Her appetite remains good, with no weight gain. Bowel movements are regular, and she experiences no difficulty in urination. She is mobile within her home and is regaining her normal activity level. The surgical incision is healing well, with no signs of redness, swelling, or pain. She has been experiencing fatigue, which she was informed is a common post- surgical symptom. She consulted her primary care physician yesterday, who expressed satisfaction with her progress. She also had a consultation with Dr. López on 06/17/2025, who recommended chemotherapy pills. She is curious about her prognosis and has read that it may not be favorable. She has been advised to start light treadmill walking but plans to wait a few more weeks before starting. She has noticed a decrease in her blood pressure, even though she is on 2 antihypertensive medications. She is currently taking half a tablet of triamterene daily, a medication she has been on for several years. She reports no dizziness upon standing. Her blood pressure readings are lower than her usual 120/80. She has discontinued her statin medication as per her primary care physician's advice and reports that her cholesterol levels are within the normal range. She experiences back pain, which is not related to her surgery. SOCIAL HISTORY Exercise: Light treadmill walking planned, starting off slowly. Diet: Consumes fleming occasionally, typically avoids meat. Treatment History: 2010: Diagnosed with colon cancer and underwent surgical resection with no adjuvant therapy. Last colonoscopy July 2023 is unremarkable. Follows with Dr. Ebony Albrecht annually and medical oncology clinic at [facility]. 03/01/2025: CT scan of abdomen and [...] for potential malignancy. Pathology was sent to [facility] which noted small area of adenocarcinoma with [...] consult with Dr. López medical oncology at [facility]. Patient appears to have stage IIA or 2B disease. Patient had lab work including CA [address] was also ordered to rule out any distant metastases. Plan is that if all testing is unremarkable she will be referred to [facility] for surgical evaluation. Referred to Surgical Oncology at [facility]. 05/11/25: SurgOnc Consult. Ca19-9 39.5. [...] . The remaining hospital course was uncomplicated. Path - no residual disease. 06/16/2025: [facility] post op follow up. Patient doing well with no acute issues. Radha removed and replaced with steri strips. Lab values reve stable findings. Plan to follow up with Dr. Veloz in 3 weeks. [facility] Patient doing well and recovery great. Discussed course of gallbladder cancer post resection. Planning to start adjuvant therapy with Dr. López. Continue follow up with Dr. López. RTC PRN Past Medical History: Past Medical History Pertinent [...] needed for shortness of breath or wheezing. Yes Provider, Historical aspirin 81 MG EC tablet Take 1 tablet by mouth daily. Yes Provider, Historical lidocaine (Lidoderm) 5 % patch Apply 1 patch topically 1 (one) time each day at the same time over 12 hours. Remove & discard patch within 12 hours or as directed by MD. 06/08/25 Yes Mendel Diaz APRN [Paused] losartan (Cozaar) 50 MG tablet Take 0.5 tablets by mouth daily. Wait to take this until your doctor or other care provider tells you to start again. 03/19/24 Yes Provider, Historical metoclopramide (Reglan) 10 MG tablet Take 1 tablet by mouth every 8 hours. 06/08/25 07/08/25 Yes Margarette Diaz APRN oxybutynin XL (Ditropan-XL) 15 MG 24 hr tablet Take 1 tablet by mouth daily. Do not crush, chew, orsplit. Yes Provider, Historical pantoprazole (Protonix) 40 MG EC tablet Take 1 tablet by mouth nightly. 04/07/25 Yes Provider, Historical [Paused] potassium chloride CR (Klor-Con) 10 MEQ ER tablet Take 1 tablet by mouth 2 times a day. Wait to take this until your doctor or other care provider tells you to start again. 03/19/24 Yes Provider, Historical [Paused] triamterene-hydrochlorothiazide (Maxzide-25) 37.5-25 MG tablet Take 0.5 tablets by mouth daily. Wait to take this until your doctor or other care provider tells you to start again. Yes Provider, Historical enoxaparin (Lovenox) 40 MG/0.4ML solution prefilled syringe Inject 0.4 mL under the skin daily for 19 days. Patient not taking: Reported on 06/29/2025 06/09/25 06/28/25 Margarette Diaz APRN fluticasone-salmeterol (Advair Diskus) 100-50 MCG/ACT diskus inhaler Inhale 1 puff as needed. Patient not taking: Reported on 06/29/2025 08/06/24 Provider, Historical methocarbamol (Robaxin) 500 MG tablet Take 2 tablets by mouth 4 times a day. Patient not taking: Reported on 06/29/2025 06/08/25 Margarette Diaz APRN naloxone (Narcan) 4 mg/0.1 mL nasal spray 1. Give 1 spray in nostril for no/slow breathing or cannot wake after opioid use 2. Call 911 3. Repeat in other nostril if symptoms continue Patient not takin. Give 1 spray in nostril for no/slow breathing or cannot wake after opioid use 2. Call 911 3. Repeat in other nostril if symptoms continue Reported on 06/16/2025 06/08/25 Margarette Diaz APRN ondansetron ODT (Zofran-ODT) 4 MG disintegrating tablet Dissolve 1 tablet on the tongue every 6 hours as needed for nausea or vomiting. Patient not taking: Reported on 06/29/2025 06/08/25 Margarette Diaz APRN oxyCODONE (Roxicodone) 5 MG immediate release tablet Take 1 tablet by mouth every 6 hours as neededfor moderate pain. Patient not taking: Reported on 06/16/2025 06/08/25 Margarette Diaz APRN senna-docusate sodium (Senokot-S) 8.6-50 MG tablet Take 1 tablet by mouth daily. Patient not taking: Reported on 06/29/2025 06/08/25 Margarette Diaz APRN Vibegron (Gemtesa) 75 MG tablet Take 1 tablet by mouth Daily. Patient not taking: Reported on 06/29/2025 03/19/24 Provider, Historical rosuvastatin (Crestor) 10 MG tablet Take 1 tablet by mouth 3 times a week. Takes -- Patient not taking: Reported on 06/29/2025 03/19/24 06/29/25 Provider, Historical Review of Systems: Review of [...] content normal. Judgment: Judgment normal. Physical Exam Constitutional: No distress, appears well. ENT: No redness or swelling at the incision site. Integument/Skin: No new bruises. Objective: All laboratory, images, tracings, and vital sign data are personally reviewed unless otherwise noted. ECOG-0 Life expectancy greater then 3 months VITALS Visit Vitals BP 98/66 Pulse 80 Temp 36.4 ??C (97.5 ??F) Ht 1.651 m (5' 5 ) Wt 62 kg (136 lb 11 oz) SpO2 95% BMI 22.75 kg/m?? LABS Lab Results Component Value Date WBC 8.34 06/29/2025 HGB 12.3 06/29/2025 HCT 38.0 06/29/2025 PLT 254 06/29/2025 NA 141 06/29/2025 K 3.9 06/29/2025 CL 104 06/29/2025 CO2 25 06/29/2025 BUN 14 06/29/2025 CREATININE 0.64 06/29/2025 GLUCOSE 86 06/29/2025 CALCIUM 9.4 06/29/2025 MG 1.6 (L) 06/08/2025 PHOS 4.1 06/08/2025 Lab Results Component Value Date TP 6.8 06/29/2025 ALBUMIN 4.0 06/29/2025 AST 31 06/29/2025 ALT 19 06/29/2025 BILITOT 0.2 06/29/2025 ALKPHOS 136 06/29/2025 Lab Results Component Value Date APTT 26 05/11/2025 INR 1.0 05/11/2025 Lab Results Component Value Date PREALBUMIN 20.0 06/29/2025 PREALBUMIN 23.0 06/16/2025 PREALBUMIN 22.7 05/11/2025 Lab Results Component Value Date CEA 3.4 04/03/2024 CEA 4.6 03/29/2023 CEA 4.2 03/23/2022 Lab Results Component Value Date CA199 38.6 (H) 06/29/2025 CA199 39.5 (H) 05/11/2025 Results Laboratory Studies CA 19-9 level mildly elevated. Radiographics/Diagnostics: === 05/12/25 === MRCP W AND [...] (axial and coronal), and axial diffusion. Heavily [id number] MRCP sequences were acquired. In addition, advanced [...] & Plan: Assessment & Plan 1. Postoperative status. The surgical incision is healing well, with no signs of infection such as redness or swelling. No pain is reported at the incision site. Gradual resumption of light activities, including walking on atreadmill, is advised. A weight restriction of 10 pounds is recommended for the next 2 weeks, followed by an increase to 20 pounds for an additional 6 weeks. She is seeing Dr. López for further management, including the initiation of adjuvant chemotherapy with capecitabine (Xeloda), is planned to prevent recurrence of cancer. The patient expressed concern about her prognosis, but reassurance was provided that her early-stage gallbladder cancer has a favorable outlook, with a >60% chance of long-term survival without chemotherapy. 2. Hypertension. Blood pressure has been lower than usual post-surgery. Current medications include triamterene and losartan. It is recommended to discontinue losartan and monitor blood pressure closely. If blood pressure increases significantly, losartan should be resumed and consultation with the primary care physician is advised. 3. Cholesterol management. The primary care physician has discontinued the statin, and cholesterol levels are reported to be fine. No immediate changes are needed, but continued monitoring of cholesterol levels is recommended. I attest to being involved in providing substantive part of the medical decision making in patient care. MD Steve Pereira MD 07/08/25 12:48 PM [1] Past Medical History: Diagnosis Date Personal history of other diseases of the circulatory system History of hypertension Personal history of urinary calculi Personal history of renal calculi [2] Past Surgical History: Procedure Laterality Date BREAST AUGMENTATION Bilateral 1977 CATARACT EXTRACTION N/A Cataract Surgery from [facility] CHOLECYSTECTOMY N/A Cholecystectomy from [facility] HIP ARTHROPLASTY Bilateral LUMBAR FUSION L4-L5 NASAL SEPTUM SURGERY N/A Nasal Septal Deviation Repair from [facility] OTHER SURGICAL HISTORY N/A Percutaneous Lithotomy from [facility] OTHER SURGICAL HISTORY gastric ulcer perferation RIGHT COLECTOMY TONSILLECTOMY N/A Tonsillectomy from [facility] [3] Allergies Allergen Reactions Other Swelling Aerosol disinfectant- especially Lysol Nickel Rash Cosigned by Steve Veloz MD at 07/08/2025 12:53 PM EDT documented in this encounter Plan of Treatment Not on file documented as of this encounter Results * (ABNORMAL) Cancer Antigen, GI (CA 19.9) (06/29/2025 2:07 PM EDT) CA 19.9 38.6(H) <36 U/mL 06/29/2025 4:03 PM EDT [facility] Blood Venous blood specimen / Unknown Venipuncture / Unknown 06/29/2025 2:07 PM EDT 06/29/2025 2:52 PM EDT Narrative [facility] - 06/29/2025 4:03 PM EDT Performed by Abdelrahman electrochemiluminescent immunoassay. Results obtained with different test methods or kits cannot be used interchangeably. us Steve Veloz MD LAB BLOOD ORDERABLES Final R esult [facility] [address] [place] [address] * Prealbumin, Plasma (06/29/2025 2:07 PM EDT) Prealbumin, Plasma 20.0 20.0 - 41.0 mg/dL 06/29/2025 3:46 PM EDT [facility] Blood Venous blood specimen / Unknown Venipuncture / Unknown 06/29/2025 2:07 PM EDT 06/29/2025 3:10 PM EDT us Steve Veloz MD LAB BLOOD ORDERABLES Final R esult [facility] [address] [place] [address] * Comprehensive Metabolic Panel, Plasma (06/29/2025 2:07 PM EDT) Glucose, Plasma 86 74 - 99 mg/dL 06/29/2025 3:46 PM EDT [facility] BUN, Plasma 14 8 - 23 mg/dL 06/29/2025 3:46 PM EDT [facility] Creatinine, Plasma 0.64 0.60 - 1.10 mg/dL 06/29/2025 3:46 PM EDT [facility] BUN/Creatinine Ratio 22 06/29/2025 3:46 PM EDT [facility] Sodium, Plasma 141 136 - 145 mmol/L 06/29/2025 3:46 PM EDT [facility] Potassium, Plasma 3.9 3.6 - 4.9 mmol/L 06/29/2025 3:46 PM EDT [facility] Chloride, Plasma 104 97 - 107 mmol/L 06/29/2025 3:46 PM EDT [facility] CO2, Plasma 25 22 - 29 mmol/L 06/29/2025 3:46 PM EDT [facility] Anion Gap 12 6 - 16 mmol/L 06/29/2025 3:46 PM EDT [facility] Total Calcium, Plasma 9.4 8.9 - 10.2 mg/dL 06/29/2025 3:46 PM EDT [facility] Total Protein 6.8 6.3 - 7.9 g/dL 06/29/2025 3:46 PM EDT [facility] Albumin, Plasma 4.0 3.5 - 5.2 g/dL 06/29/2025 3:46 PM EDT [facility] AST, Plasma 31 10 - 35 U/L 06/29/2025 3:46 PM EDT [facility] Comment:Hemolyzed, result ma y be falsely increased. ALT, Plasma 19 10 - 35 U/L 06/29/2025 3:46 PM EDT [facility] Alkaline Phosphatase, Plasma 136 46 - 142 U/L 06/29/2025 3:46 PM EDT [facility] Total Bilirubin, Plasma 0.2 0.2 - 1.1 mg/dL 06/29/2025 3:46 PM EDT [facility] eGFRcr 92.3 mL/min/1.7 3m*2 06/29/2025 3:46 PM EDT [facility] Comment:Reported eGFRcr in m L/min/1.73m2 is based the CKD-EPI 2020 equation that does not use a race coefficient. Blood Venous blood specimen / Unknown Venipuncture / Unknown 06/29/2025 2:07 PM EDT 06/29/2025 3:10 PM EDT us Steve Veloz MD LAB BLOOD ORDERABLES Final R esult [facility] [address] [place] [address] * CBC and Differential (06/29/2025 2:07 PM EDT) WBC Count 8.34 3.70 - 10.30 10*3/uL LAB HEMATOLOGY METHOD 06/29/2025 2:15 PM EDT [facility] RBC Count 4.05 3.90 - 5.20 10*6/uL LAB HEMATOLOGY METHOD 06/29/2025 2:15 PM EDT [facility] HGB 12.3 11.2 - 15.7 g/dL LAB HEMATOLOGY METHOD 06/29/2025 2:15 PM EDT [facility] HCT 38.0 34.0 - 45.0 % LAB HEMATOLOGY METHOD 06/29/2025 2:15 PM EDT [facility] Platelet Count 254 155 - 369 10*3/uL LAB HEMATOLOGY METHOD 06/29/2025 2:15 PM EDT [facility] MCV 94 79 - 98 fL LAB HEMATOLOGY METHOD 06/29/2025 2:15 PM EDT [facility] MCH 30.4 26.0 - 32.0 pg LAB HEMATOLOGY METHOD 06/29/2025 2:15 PM EDT [facility] MCHC 32.4 30.7 - 35.5 g/dL LAB HEMATOLOGY METHOD 06/29/2025 2:15 PM EDT [facility] RDW 13.2 11.5 - 14.5 % LAB HEMATOLOGY METHOD 06/29/2025 2:15 PM EDT [facility] MPV 11.1 8.8 - 12.5 fL LAB HEMATOLOGY METHOD 06/29/2025 2:15 PM EDT [facility] nRBC 0.0 <=0.0 per 100 WBCs LAB HEMATOLOGY METHOD 06/29/2025 2:15 PM EDT [facility] Differential Type Automated LAB HEMATOLOGY METHOD 06/29/2025 2:15 PM EDT [facility] Neutrophils % 55 % LAB HEMATOLOGY METHOD 06/29/2025 2:15 PM EDT [facility] Lymphocytes % 31 % LAB HEMATOLOGY METHOD 06/29/2025 2:15 PM EDT [facility] Monocytes % 8 % LAB HEMATOLOGY METHOD 06/29/2025 2:15 PM EDT [facility] Eosinophils % 5 % LAB HEMATOLOGY METHOD 06/29/2025 2:15 PM EDT [facility] Basophils % 1 % LAB HEMATOLOGY METHOD 06/29/2025 2:15 PM EDT [facility] Immature Granulocytes % 0 % LAB HEMATOLOGY METHOD 06/29/2025 2:15 PM EDT [facility] Neutrophils Absolute 4.69 1.60 - 6.10 10*3/uL LAB HEMATOLOGY METHOD 06/29/2025 2:15 PM EDT [facility] Lymphocytes Absolute 2.54 1.20 - 3.90 10*3/uL LAB HEMATOLOGY METHOD 06/29/2025 2:15 PM EDT [facility] Monocytes Absolute 0.63 0.30 - 0.90 10*3/uL LAB HEMATOLOGY METHOD 06/29/2025 2:15 PM EDT [facility] Eosinophils Absolute 0.40 0.00 - 0.50 10*3/uL LAB HEMATOLOGY METHOD 06/29/2025 2:15 PM EDT [facility] Basophils Absolute 0.06 0.00 - 0.10 10*3/uL LAB HEMATOLOGY METHOD 06/29/2025 2:15 PM EDT [facility] Immature Granulocytes Absolute 0.02 0.00 - 0.06 10*3/uL LAB HEMATOLOGY METHOD 06/29/2025 2:15 PM EDT [facility] Blood Venous blood specimen / Unknown Venipuncture / Unknown 06/29/2025 2:07 PM EDT 06/29/2025 2:12 PM EDT Narrative [facility] - 06/29/2025 2:15 PM EDT Therapeutic decision making should be based on absolute values, rather than percentages. us Steve Veloz MD LAB BLOOD ORDERABLES Final R esult [facility] [address] [place] [address] documented in this encounter Visit Diagnoses Diagnosis Gallbladder cancer- Primary Malignant neoplasm of gallbladder documented in this encounter Additional Health Concerns Assessment Noted Time A fall risk assessment has been complete d for the patient 06/29/2025 2:24 PM EDT A Body Mass Index follow-up plan has been documented for the patient 07/08/2025 12:54 PM EDT documented as of this encounter Care Teams Finished Garment Inspector Relationship Specialty Start Date End Date Efrain Angeles MD [address] [place] [id number] PCP - General 04/03/24 documented as of this encounter
--- OUTSIDE RECORDS SUMMARY | 2025-07-12 14:45 | XMS_ITS | Encounter Summary ---
[facility] [address] [place] [address] Care Team Providers Care Instructional Design Manager Name Role Phone Efrain Angeles MD Primary Care Provider [phone] Reason for Visit * Reason Comments Palpitations Encounter Details Date Type Department Care Team (Late st Contact Info) Description 07/12/2025 3:45 PM EDT Office Visit [facility] CARDIOLOGY [address] [facility] [address] [address] [place] [phone] Steve Correa MD [address] [facility] [address] [place] [address] Abnormal EKG (Primary Dx); Bruit of right carotid artery; Essential hypertension Social History Tobacco Use Types Packs/Day Years [...] beer occasionally. (Maybe once a month. ) Comments Unknown Sex and Gender Information Value Date Recorded Sex Assigned at Female 07/05/2025 9:07 AM EDT Legal Sex Female 11:51 AM EDT Gender Identity Not on file Sexual Orientation Not on file documented as of this encounter Last Filed Vital Signs Vital Sign Reading Time Taken Comments Blood Pressure 126/72 07/12/2025 3:17 PM EDT Pulse 82 07/12/2025 3:17 PM EDT Temperature - - Respiratory Rate - - Oxygen Saturation - - Inhaled Oxygen Concentration - - Weight 61.2 kg (135 lb) 07/12/2025 3:17 PM EDT Height 165.1 cm (5' 5 ) 07/12/2025 3:17 PM EDT Body Mass Index 22.47 07/12/2025 3:17 PM EDT documented in this encounter Patient Instructions * Attachments The following attachments cannot be sent through Care Everywhere. * ADVANCE CARE PLANNING AVS documented in this encounter Progress Notes * Steve Correa MD - 07/12/2025 3:45 PM EDTAssociated Order(s): ECG 12 Lead Post-Procedure Diagnose(s): Essential hypertension; Abnormal EKG Images from the original note were not included. [facility] Cardiology [address] [place] [address], [address] [place], [place], [id number] WWW.[facility] OUT[facility] FOLLOW-UP NOTE Patient care team: Patient Care Team: Efrain Angeles MD as PCP - General (Family Medicine) Efrain Angeles MD as Consulting Physician (Family Medicine) Steve Correa MD as Consulting Physician (Cardiology) Subjective: Chief complaint: Chief Complaint Patient presents with Palpitations HPI: Alyssia Holly is a 74 y.o. female. Cardiac focused problem list: Tachycardic response to flu shot fall 2021 Self-limiting bigeminal PVCs on 48-hour Holter fall [...] inferolateral leads Brother was a heavy smoker, [place] at 38. Sister had congenital heart disease/rheumatic heart disease, CABG at 42 Biatrial enlargement, RV enlargement, grade 1 diastolic dysfunction Echo fall 2021 Right carotid bruit Carotid duplex 07/2022: No obstructive disease, antegrade vertebral flow Hypertension Cervical cancer treated at approximate age 29 Colon cancer treated at approximately age 59 Gallbladder cancer, status post laparoscopic surgery, lymph node dissection, partial hepatectomy, [facility], 05/2025 Former tobacco use, quit 2003 Subjective: No chest pain, unusual dyspnea, no significant palpitations. Recent operations for gall bladder cancer. Has had intermittent fatigue for operations. Walking 0.5 mi on the treadmill at the gym. Review of Systems: As noted above in the HPI PFSH: Patient Active Problem List Diagnosis Bruit of right carotid artery Essential hypertension Mixed hyperlipidemia Abnormal EKG Current Outpatient Medications: acetaminophen (TYLENOL) 500 MG tablet, Take 1 tablet by mouth As Needed for Mild Pain., Disp: , Rfl: albuterol sulfate HFA 108 (90 Base) MCG/ACT inhaler, albuterol sulfate HFA 90 mcg/actuation aerosolinhaler INHALE 2 PUFFS FOUR TIMES DAILY NEEDED (Patient taking differently: Every 4 (Four) HoursAs Needed.), Disp: , Rfl: Aspirin 81 MG capsule, As Needed., Disp: , Rfl: coenzyme Q10 100 MG capsule, Take 1 capsule by mouth Daily., Disp: , Rfl: Lidocaine 4 %, Place 1 patch on the skin as directed by provider Daily. Remove & Discard patch within 12 hours or as directed by MD, Disp: , Rfl: oxybutynin XL (DITROPAN XL) 15 MG 24 hr tablet, Take 1 tablet by mouth Daily., Disp: , Rfl: pantoprazole (PROTONIX) 40 MG EC tablet, Take 1 tablet by mouth Daily., Disp: , Rfl: potassium chloride 10 MEQ CR tablet, Daily., Disp: , Rfl: Probiotic Product (Align) capsule, Take 1 capsule by mouth Daily., Disp: , Rfl: triamterene-hydrochlorothiazide (MAXZIDE-25) 37.5-25 MG per tablet, Daily., Disp: , Rfl: Allergies Allergen Reactions Latex Rash Nickel Rash Social History Socioeconomic History Marital status: Tobacco Use Smoking status: Former Current packs/day: 0.00 Average packs/day: 0.5 packs/day for 38.0 years (19.0 ttl pk-yrs) Types: Cigarettes Start date: 10/25/1965 Quit date: 10/25/2003 Years since quittin.7 Smokeless tobacco: Never Tobacco comments: I smoked on ad off from age 15 to age 53 for a total of about 20 yrs. Vaping Use Vaping status: Never Used Substance and Sexual Activity Alcohol use: Not Currently Comment: Wine and beer occasionally. (Maybe once a month. ) Drug use: Never Sexual activity: Not Currently Partners: Male Objective: Physical Exam: BP 126/72 (BP Location: Right arm, Patient Position: Sitting) Pulse 82 Ht 165.1 cm (65 ) Wt 61.2 kg (135 lb) BMI 22.47 kg/m?? CONSTITUTIONAL: No acute distress CARDIOVASCULAR: Regular rate and rhythm with normal S1 and S2. Without murmur. PERIPHERAL VASCULAR: Normal radial pulse. Right carotid bruit. Labs: Labs reviewed by myself Potassium Date Value Ref Range Status 05/31/2025 3.2 (L) 3.6 - 4.9 mmol/L Final No results found for: CHOL No results found for: TRIG No results found for: HDL No results found for: LDL No components found for: LDLDIRECTC Diagnostic Data: ECG 12 Lead Date/Time: 07/12/2025 3:54 PM Performed by: Steve Correa MD Authorized by: Steve Correa MD Comparison: compared with previous ECG from 07/16/2022 Similar to previous ECG Comparison to previous ECG: Low voltage Rhythm: sinus rhythm OSH echo 05/2022: LV EF 55%, grade 1 diastolic dysfunction, mild biatrial enlargement, mild RV enlargement OSH exercise nuclear stress test 05/2022: No angina with exercise. Abnormal EKG response with exercise. No ischemia on myocardial perfusion imaging. Apical defect, fixed, small, thought to be due to breast attenuation Assessment and Plan: Palpitations Abnormal EKG Mild biatrial enlargement -No recurrent symptoms -Stable clinical status; would continue to focus on primary prevention and risk factor modification. Deferring on additional cardiac testing at this current time. If with recurrent symptoms, could reconsider. Bruit of right carotid artery -No significant atherosclerosis noted on carotid duplex 07/2022 Essential hypertension -Continue current related medications Mixed hyperlipidemia -Off statin due to partial hepatectomy -Patient would like to follow up yearly for now. - Return in about 1 year (around 07/12/2026) for Next follow up with Rita Lei APRN, Next follow up with an ECG, if none in last year. documented in this encounter Plan of Treatment Upcoming Encounters Date Type Department Care Team (Late st Contact Info) Description 07/25/2026 1:15 PM EST Office Visit [facility] CARDIOLOGY [address] [place] [address] Rita Lei, PEST TECHNICIAN [address] [facility] [address] [place] [address] documented as of this encounter Procedures Procedure Name Priority Date/Time Associated Diagnosis Comments ECG 12-LEAD Routine 07/12/2025 Abnormal EKG Essential hypertension documented in this encounter Results * ECG 12-LEAD (07/12/2025) Narrative 07/12/2025 Steve Correa MD 07/12/2025 3:59 PM ECG 12 Lead Date/Time: 07/12/2025 3:54 PM Performed by: Steve Correa MD Authorized by: Steve Correa MD Comparison: compared with previous ECG from 07/16/2022 Similar to previous ECG Comparison to previous ECG: Low voltage Rhythm: sinus rhythm Procedure Note Steve Correa MD - 07/12/2025 3:45 PM EDT Images from the original note were not included. [facility] Cardiology [address] [facility], [address] [place], [address] WWW.[facility]ITALOhLifeCAM[facility] OUTPATIENT CLINIC FOLLOW-UP NOTE Patient care team: Patient Care Team: Efrain Angeles MD as PCP - General (Family Medicine) Efrain Angeles MD as Consulting Physician (Family Medicine) Steve Correa MD as Consulting Physician (Cardiology) Subjective: Chief complaint: Chief Complaint Patient presents with Palpitations HPI: Alyssia Holly is a 74 y.o. female. Cardiac focused problem list: Tachycardic response to flu shot fall 2021 Self-limiting bigeminal PVCs on 48-hour Holter fall 2021 Echo with findings noted below Stress test in the absence of ongoing anginal symptoms but ordered due toabove tachycardic response. Abnormal EKG response but negative forischemia. Small apical infarct pattern thought to be due to breastattenuation, OSH, fall 2021 Abnormal EKG with nonspecific ST abnormality in the inferolateral leads Brother was a heavy smoker, [place] at 38. Sister had congenital heartdisease/rheumatic heart disease, CABG at 42 Biatrial enlargement, RV enlargement, grade 1 diastolic dysfunction Echo fall 2021 Right carotid bruit Carotid duplex 07/2022: No obstructive disease, antegrade vertebral flow Hypertension Cervical cancer treated at approximate age 29 Colon cancer treated at approximately age 59 Gallbladder cancer, status post laparoscopic surgery, lymph nodedissection, partial hepatectomy, [facility], 05/2025 Former tobacco use, quit 2003 Subjective: No chest pain, unusual dyspnea, no significant palpitations. Recentoperations for gall bladder cancer. Has had intermittent fatigue foroperations. Walking 0.5 mi on the treadmill at the gym. Review of Systems: As noted above in the HPI PFSH: Patient Active Problem List Diagnosis Bruit of right carotid artery Essential hypertension Mixed hyperlipidemia Abnormal EKG Current Outpatient Medications: acetaminophen (TYLENOL) 500 MG tablet, Take 1 tablet by mouth As Neededfor Mild Pain., Disp: , Rfl: albuterol sulfate HFA 108 (90 Base) MCG/ACT inhaler, albuterol sulfateHFA 90 mcg/actuation aerosol inhaler INHALE 2 PUFFS FOUR TIMES DAILY ASNEEDED (Patient taking differently: Every 4 (Four) Hours As Needed.),Disp: , Rfl: Aspirin 81 MG capsule, As Needed., Disp: , Rfl: coenzyme Q10 100 MG capsule, Take 1 capsule by mouth Daily., Disp: ,Rfl: Lidocaine 4 %, Place 1 patch on the skin as directed by provider Daily.Remove & Discard patch within 12 hours or as directed by MD, Disp: , Rfl: oxybutynin XL (DITROPAN XL) 15 MG 24 hr tablet, Take 1 tablet by mouthDaily., Disp: , Rfl: pantoprazole (PROTONIX) 40 MG EC tablet, Take 1 tablet by mouth Daily.,Disp: , Rfl: potassium chloride 10 MEQ CR tablet, Daily., Disp: , Rfl: Probiotic Product (Align) capsule, Take 1 capsule by mouth Daily., Disp:, Rfl: triamterene-hydrochlorothiazide (MAXZIDE-25) 37.5-25 MG per tablet,Daily., Disp: , Rfl: Allergies Allergen Reactions Latex Rash Nickel Rash Social History Socioeconomic History Marital status: Tobacco Use Smoking status: Former Current packs/day: 0.00 Average packs/day: 0.5 packs/day for 38.0 years (19.0 ttl pk-yrs) Types: Cigarettes Start date: 10/25/1965 Quit date: 10/25/2003 Years since quittin.7 Smokeless tobacco: Never Tobacco comments: I smoked on ad off from age 15 to age 53 for a total of about 20 yrs. Vaping Use Vaping status: Never Used Substance and Sexual Activity Alcohol use: Not Currently Comment: Wine and beer occasionally. (Maybe once a month. ) Drug use: Never Sexual activity: Not Currently Partners: Male Objective: Physical Exam: BP 126/72 (BP Location: Right arm, Patient Position: Sitting) Pulse 82 Ht 165.1 cm (65 ) Wt 61.2 kg (135 lb) BMI 22.47 kg/m CONSTITUTIONAL: No acute distress CARDIOVASCULAR: Regular rate and rhythm with normal S1 and S2. Withoutmurmur. PERIPHERAL VASCULAR: Normal radial pulse. Right carotid bruit. Labs: Labs reviewed by myself Potassium Date Value Ref Range Status 05/31/2025 3.2 (L) 3.6 - 4.9 mmol/L Final No results found for: CHOL No results found for: TRIG No results found for: HDL No results found for: LDL No components found for: LDLDIRECTC Diagnostic Data: ECG 12 Lead Date/Time: 07/12/2025 3:54 PM Performed by: Steve Correa MD Authorized by: Steve Correa MD Comparison: compared with previous ECGfrom 07/16/2022 Similar to previous ECG Comparison to previous ECG: Low voltage Rhythm: sinus rhythm OSH echo 05/2022: LV EF 55%, grade 1 diastolic dysfunction, mild biatrialenlargement, mild RV enlargement OS exercise nuclear stress test 05/2022: No angina with exercise.Abnormal EKG response with exercise. No ischemia on myocardial perfusionimaging. Apical defect, fixed, small, thought to be due to breastattenuation Assessment and Plan: Palpitations Abnormal EKG Mild biatrial enlargement -No recurrent symptoms -Stable clinical status; would continue to focus on primary prevention andrisk factor modification. Deferring on additional cardiac testing at thiscurrent time. If with recurrent symptoms, could reconsider. Bruit of right carotid artery -No significant atherosclerosis noted on carotid duplex 07/2022 Essential hypertension -Continue current related medications Mixed hyperlipidemia -Off statin due to partial hepatectomy -Patient would like to follow up yearly for now. - Return in about 1 year (around 07/12/2026) for Next follow up with TIM Ferrer, Next follow up with an ECG, if none in last year. Steve Correa MD ECG ORDERABLES Final Result documented in this encounter Visit Diagnoses Diagnosis Abnormal EKG- Primary Nonspecific abnormal electrocardiogram (ECG) (EKG) Bruit of right carotid artery Essential hypertension Unspecified essential hypertension documented in this encounter Care Teams Instructional Design Manager Relationship Specialty Start Date End Date Efrain Angeles MD [facility] [address] [facility] [address] [place] [address] PCP - General Family Medicine 07/16/22 documented as of this encounter
--- OUTSIDE RECORDS SUMMARY | 2025-08-17 08:19 | XMS_ITS | Encounter Summary ---
Author Organization Healthcare Address [address] [place] [address] Care Team Providers Care Marine Fisheries Technician Name Role Phone Nate Mills MD Primary Care Provider [phone] Efrain Angeles MD Primary Care Provider [phone] Encounter Details Date Type Department Care Team (Late st Contact Info) Description 03/29/2023 Orders Only [facility] [address] [place] [address] Ebony Albrecht MD [address] [address] Social History Tobacco Use Types [...] - 10.8 10*3/uL 03/29/2023 9:26 AM EDT [facility] External Red Blood Cell (RBC) 4.66 3.80 - 5.20 10*6/uL 03/29/2023 9:26 AM EDT [facility] External Hemoglobin 14.4 12.0 - 16.0 g/dL 03/29/2023 9:26 AM EDT [facility] External Hematocrit 42.6 35.0 - 47.0 % 03/29/2023 9:26 AM EDT [facility] External MCV 92 80 - 100 fL 03/29/2023 9:26 AM EDT [facility] External MCH 31 26 - 35 pg 03/29/2023 9:26 AM EDT [facility] External MCHC 34 32 - 36 g/dL 03/29/2023 9:26 AM EDT [facility] External RDW 13.7 11.0 - 15.0 % 03/29/2023 9:26 AM EDT [facility] External Mean Platelet Volume 9.7 6.2 - 10.5 fL 03/29/2023 9:26 AM EDT [facility] External Platelets 254 130 - 400 10*3/uL 03/29/2023 9:26 AM EDT [facility] External Neutrophil# 8.9(H) 1.6 - 8.4 10*3/uL 03/29/2023 9:26 AM EDT [facility] External Lymphocyte# 2.7 0.4 - 5.1 10*3/uL 03/29/2023 9:26 AM EDT [facility] External Absolute Monocyte (Abs [place]) 0.7 0.0 - 1.2 10*3/uL 03/29/2023 9:26 AM EDT [facility] External Eosinophils# 0.3 0.0 - 0.8 10*3/uL 03/29/2023 9:26 AM EDT [facility] External Baso# 0.1 0.0 - 0.3 10*3/uL 03/29/2023 9:26 AM EDT [facility] External Neutrophils % 70.2 42.0 - 78.0 % 03/29/2023 9:26 AM EDT [facility] External Lymphocyte % 20.9 11.0 - 47.0 % 03/29/2023 9:26 AM EDT [facility] External Monocyte % 5.6 0.0 - 11.0 % 03/29/2023 9:26 AM EDT [facility] External Eosinophil% 2.7 0.0 - 7.0 % 03/29/2023 9:26 AM EDT [facility] External Basophil % 0.6 0.0 - 3.0 % 03/29/2023 9:26 AM EDT [facility] External Nucleated RBC%-Auto 0.0 0.0 - 0.9 % 03/29/2023 9:26 AM EDT [facility] External Nucleated RBC Absolute 0.00 Not Estab. 10*3/uL 03/29/2023 9:26 AM EDT [facility] 03/29/2023 9:07 AM EDT 03/29/2023 9:22 AM EDT us Ebony Albrecht MD LAB BLOOD ORDERABLES Final Re sult [facility] [address] [place] [address], documented in this encounter Visit Diagnoses Not on filedocumented in this encounter Care Teams Marine Fisheries Technician Relationship Specialty Start Date End Date Nate Mills MD [facility] [address] [place] [address] PCP - General 09/23/20 04/02/24 Efrain Angeles MD 1210 [facility] [address] [place] [address] PCP - General 04/03/24 documented as of this encounter
--- OUTSIDE RECORDS SUMMARY | 2025-08-17 08:19 | XMS_ITS | Encounter Summary ---
Author Organization Healthcare Address [address] [place] [address] Care Team Providers Care Tobacco Sweeper Name Role Phone Nate Mills MD Primary Care Provider [phone] Efrain Angeles MD Primary Care Provider [phone] Encounter Details Date Type Department Care Team (Late st Contact Info) Description 03/29/2023 Orders Only [facility] [address] [place] [id number] Ebony Albrecht MD [address] [address] Social History Tobacco Use Types [...] sult [facility] [address] [place] [address], documented in this encounter Visit Diagnoses Not on filedocumented in this encounter Care Teams Tobacco Sweeper Relationship Specialty Start Date End Date Nate Mills MD 1210 [facility] [address] [place] [address] PCP - General 09/23/20 04/02/24 Efrain Angeles MD 1210 [facility] [address] [place] [address] PCP - General 04/03/24 documented as of this encounter
--- OUTSIDE RECORDS SUMMARY | 2025-08-17 08:19 | XMS_ITS | Encounter Summary ---
Author Organization Healthcare Address [address] [place] [address] Care Team Providers Care Windows Consultant Name Role Phone Nate Mills MD Primary Care Provider [phone] Efrain Angeles MD Primary Care Provider [phone] Encounter Details Date Type Department Care Team (Late st Contact Info) Description 03/29/2023 Orders Only [facility] at [facility] [address] [place] [address] Ebony Albrecht MD [address] [address] Social History Tobacco Use [...] 74 - 100 mg/dL 03/29/2023 9:52 AM [facility] External BUN 16 6 - 20 mg/dL 03/29/2023 9:52 AM [facility] External Creatinine Blood 0.69 0.50 - 0.95 mg/dL 03/29/2023 9:52 AM [facility] External BUN/Creat Ratio 23(H) 10 - 20 (calc) 03/29/2023 9:52 AM [facility] External Sodium 140 136 - 145 mmol/L 03/29/2023 9:52 AM [facility] External Potassium 3.9 3.4 - 5.0 mmol/L 03/29/2023 9:52 AM [facility] External Chloride 102 98 - 107 mmol/L 03/29/2023 9:52 AM [facility] External Carbon Dioxide 28 22 - 31 mmol/L 03/29/2023 9:52 AM [facility] External Anion Gap (AG) 10 7 - 25 (calc) 03/29/2023 9:52 AM [facility] External Calcium 9.7 8.6 - 10.2 mg/dL 03/29/2023 9:52 AM [facility] External Total Protein 7.4 6.4 - 8.3 g/dL 03/29/2023 9:52 AM [facility] External Albumin 4.4 3.5 - 5.2 g/dL 03/29/2023 9:52 AM [facility] External Globulin 3.0 1.5 - 4.5 023 9:52 AM [facility] External Albumin/Globulin Ratio 1.5 1.1 - 2.5 (calc) 03/29/2023 9:52 AM [facility] External Bilirubin Total 0.6 0.1 - 1.2 mg/dL 03/29/2023 9:52 AM [facility] External Alkaline Phosphatase 107 30 - 121 U/L 03/29/2023 9:52 AM [facility] External AST (SGOT) 29 0 - 32 U/L 03/29/2023 9:52 AM [facility] External ALT (SGPT) 36(H) 0 - 33 U/L 03/29/2023 9:52 AM EDT [facility] External Estimated GFR 91 >=60 03/29/2023 9:52 AM EDT [facility] Comment: NOTE New calculation for GFR (CKD-EPI 2020) is formulated without race adjustment factors at the recommendation of the [employer] and [place] [employer]. This calculation has not been validated in women. For pediatric patients refer to https://www.kidney.org/professionals/KDOQI/gfr_calculatorPed 03/29/2023 9:07 AM EDT 03/29/2023 9:20 AM EDT us Ebony Albrecht MD LAB BLOOD ORDERABLES Final Re sult [facility] [address] [place] [address], documented in this encounter Visit Diagnoses Not on filedocumented in this encounter Care Teams Windows Consultant Relationship Specialty Start Date End Date Nate Mills MD [address] [facility] [address] [place] [id number] PCP - General 09/23/20 04/02/24 Efrain Angeles MD [address] [facility] [address] [place] [address] PCP - General 04/03/24 documented as of this encounter
--- OUTSIDE RECORDS SUMMARY | 2025-08-17 08:19 | XMS_ITS | Encounter Summary ---
Author Organization Healthcare Address [address] [place] [address] Care Team Providers Care Cupola Tapper Name Role Phone Nate Mills MD Primary Care Provider [phone] Efrain Angeles MD Primary Care Provider [phone] Encounter Details Date Type Department Care Team ([facility] st Contact Info) Description 02/20/2024 Orders Only External Location [address] [place] [address] Provider, External Social History Tobacco Use Types [...] on filedocumented in this encounter Care Teams Cupola Tapper Relationship Specialty Start Date End Date Nate Mills MD [address] [place], [place] [id number] PCP - General 09/23/20 04/02/24 Efrain Angeles MD [address] [place], [place] [address] PCP - General 04/03/24 documented as of this encounter
--- OUTSIDE RECORDS SUMMARY | 2025-08-17 08:20 | XMS_ITS | Clinical Summary ---
Author Organization [facility] Address [address] [place] [address] Care Team Providers Care Assisted Living Housekeeper Name Role Phone Efrain Angeles MD Primary Care Provider [phone] Allergies Active Allergy Reactions Criticality Noted Date Comments Nickel Rash Low 07/16/2022 Other Swelling High 05/25/2025 Aerosol disinfectant- especially Lysol Medications triamterene-hyd rochlorothiazid e (Maxzide-25) 37.5-25 MG tablet Take 0.5 tablets by mouth daily. Active losartan (Cozaar) 50 MG tablet Take 0.5 tablets by mouth daily. 4 Active aspirin 81 MG EC tablet Take 1 tablet by mouth daily. Active albuterol 108 (90 Base) MCG/ACT inhaler Inhale 2 puffs as needed for shortness of breath or wheezing. Active potassium chloride CR (Klor-Con) 10 MEQ ER tablet Take 1 tablet by mouth 2 times a day. 4 Active Vibegron (Gemtesa) 75 MG tablet Take 1 tablet by mouth Daily. 4 Active pantoprazole (Protonix) 40 MG EC tablet Take 1 tablet by mouth nightly. 5 Active fluticasone-ana m meterol (Advair Diskus) 100-50 MCG/ACT diskus inhaler Inhale 1 puff as needed. 4 Active lidocaine (Lidoderm) 5 % patch Apply [...] Do not crush, chew, or split. Active Active Problems Problem Noted Date Diagnosed [...] dissection, segment 4B/5 partial hepatectomy, omental flap [Roselia] Breast implant rupture 04/20/2024 Resolved Problems Problem Noted Date Diagnosed Date Resolved Date Leukocytosis 06/02/2025 06/08/2025 Overview (06/02/2025): - common post-op finding likely reactive 2/2 surgery - daily/prn CBC - monitor for s/s of active infection Encounters Date Type Department Care Team Description 08/04/2025 Telephone [facility] [address] [place] [address] Steev Veloz MD 06/29/2025 3:10 PM EDT Office Visit [facility] [address] [place] [address] Steve Veloz MD Gallbladder cancer (Primary Dx) 06/29/2025 Travel 06/25/2025 Telephone [facility] [address] [place] [phone] Steve Veloz MD 06/23/2025 Telephone [facility] [address] [place] [phone] Steve Veloz MD 06/22/2025 Travel 06/16/2025 11:30 AM EDT Office Visit [facility] [address] [place] [phone] Reina Ortega APRN Gallbladder cancer (CMS/HCC) (Primary Dx) 06/16/2025 Travel 06/10/2025 Telephone [facility] [address] [place] [phone] Reina Ortega APRN [facility] Care 06/10/2025 Telephone [facility] [address] [place] [phone] Steve Veloz MD 05/31/2025 1:23 PM EDT Anesthesia Event [facility] [address] [place] [phone] Matteo Quiros MD Harward, Amy E, PA 05/31/2025 11:50 AM EDT - 05/31/2025 5:20 PM EDT Surgery [facility] [address] [place] [phone] Steve Veloz MD open partial hepatectomy, lymph node dissection [19630 (CPT )] 05/31/2025 9:14 AM EDT - 06/08/2025 2:27 PM EDT Hospital Encounter [facility] Inpatient [address] [phone] Steve Veloz MD Adenocarcinoma of gallbladder (CMS/HCC) Discharge Disposition: Home or Self Care 05/31/2025 Travel 05/27/2025 Telephone [facility] [address] [place] [phone] Steve Veloz MD 05/26/2025 Telephone [facility] [address] [place] [address] Steve Veloz MD 05/25/2025 1:00 PM EDT Pre-Admission Testing [facility] [address], [address] [place] [address] Preop examination (Primary Dx) 05/25/2025 11:10 AM EDT Office Visit [facility] [address] [place] [address] Steve Veloz MD Gallbladder cancer (CMS/HCC) (Primary Dx) 05/25/2025 Travel 05/25/2025 Telephone [facility] [address] [place] [address] Steve Veloz MD 05/24/2025 Travel 05/19/2025 Telephone [facility] [address] [place] [address] Steve Veloz MD 05/19/2025 Telephone [facility] [address] [place] [address] Jessica Banks 05/18/2025 Travel 05/17/2025 Orders Only [facility] [address] [place] [phone] Steve Veloz MD Adenocarcinoma of gallbladder (CMS/HCC) (Primary Dx) from Last 3 Months Family History Medical [...] any time in the past 12 m [facility], were you homeless or living in a usp (including now)? No 06/01/2025 [facility] Utilities Answer Date Recorded In the [...] Wellness (AWV) 1950 [facility]-/Child/Adol SDOH Screenings 1950 [facility]-Zoster Vaccines (2 of 2) 09/05/2020 07/11/2020, 05/06/2020, 10/28/2013 [facility]-DTaP,Tdap,and Td Vaccines (2 - Td or Tdap) 06/23/2022 06/23/2012 [facility]-RSV Vaccine: 60+ Years or (1 - 1-dose 75+ series) 2024 [id number] Vaccine ( season) 2025 06/14/2021, 10/26/2020, 10/20/2020, Additional history exists [facility]-Influenza Vaccine (#1) 05/24/202506/11, 09/21/2021, 05/27/2020, Additional history exists [facility]- SDOH Screenings 11/29/2025 [facility]-Adult SDOH Screenings 11/29/2025 06/01/2025 [facility]-Depression Screening 06/29/2026 06/29/2025 [facility]-Pneumococcal Vaccine: 50+ Years Completed 09/26/2016, 06/29/2015 [facility]-Hepatitis A Vaccines Completed 08/19/2019, 12/22 [facility]-Breast Cancer Screening Discontinued 11/16/2020, 11/16/2020, 11/11/2019, Additional history exists HPV Vaccines [...] 04 PM EDT MAGNESIUM, PLASMA Routine 05/31/2025 5: 04 PM EDT COMPREHENSIVE METABOLIC PANEL, PLASMA Routine [...] ANESTHESIA PLACEHOLDER Routine 05/31/2025 1:28 PM EDT RI AN ELECTIVE ENDOTRACHEAL AIRWAY Routine 05/31/2025 1:28 PM EDT RI LAP,DIAGNOSTIC ABDOMEN 05/31/2025 1:06 PM EDT Adenocarcinoma of gallbladder (CMS/HCC) Special Needs Aquamantys, [id number], Ligasure RI RESEC LIVER,PART LOBECTOMY 05/31/2025 1:06 PM EDT Adenocarcinoma of gallbladder (CMS/HCC) Special Needs [employer], [id number], Ligasure PB ANESTHESIA NON-TIMED PROCEDURE PLACEHOLDER Routine 05/31/2025 11:12 AM EDT TYPE AND SCREEN Routine 05/31/2025 10:27 AM EDT ECG ADULT Routine 05/25/2025 12:16 PM EDT Gallbladder cancer (CMS/HCC) from Last 3 Months Results * (ABNORMAL) Cancer Antigen, GI (CA 19.9) (06/29/2025 2:07 PM EDT) CA 19.9 38.6(H) <36 U/mL 06/29/2025 4:03 PM EDT [facility] Blood Venous blood specimen / Unknown Venipuncture / Unknown 06/29/2025 2:07 PM EDT 06/29/2025 2:52 PM EDT Narrative [facility] - 06/29/2025 4:03 PM EDT Performed by Abdelrahman electrochemiluminescent immunoassay. Results obtained with different test methods or kits cannot be used interchangeably. us Steve Veloz MD LAB BLOOD ORDERABLES Final R esult [facility] [address] [place] [address] * CBC and Differential (06/29/2025 2:07 PM EDT) Only the most recent of2 resultswithin the time period is included. WBC Count 8.34 3.70 - 10.30 10*3/uL LAB HEMATOLOGY METHOD 06/29/2025 2:15 PM EDT [facility] RBC Count 4.05 3.90 - 5.20 10*6/uL LAB HEMATOLOGY METHOD 06/29/2025 2:15 PM EDT [facility] HGB 12.3 11.2 - 15.7 g/dL LAB HEMATOLOGY METHOD 06/29/2025 2:15 PM EDT [facility] HCT 38.0 34.0 - 45.0 % LAB HEMATOLOGY METHOD 06/29/2025 2:15 PM EDT [facility] Platelet Count 254 155 - 369 10*3/uL LAB HEMATOLOGY METHOD 06/29/2025 2:15 PM EDT [facility] MCV 94 79 - 98 fL LAB HEMATOLOGY METHOD 06/29/2025 2:15 PM EDT [facility] MCH 30.4 26.0 - 32.0 pg LAB HEMATOLOGY METHOD 06/29/2025 2:15 PM EDT [facility] MCHC 32.4 30.7 - 35.5 g/dL LAB HEMATOLOGY METHOD 06/29/2025 2:15 PM EDT [facility] RDW 13.2 11.5 - 14.5 % LAB HEMATOLOGY METHOD 06/29/2025 2:15 PM EDT [facility] MPV 11.1 8.8 - 12.5 fL LAB HEMATOLOGY METHOD 06/29/2025 2:15 PM EDT [facility] nRBC 0.0 <=0.0 per 100 WBCs LAB HEMATOLOGY METHOD 06/29/2025 2:15 PM EDT [facility] Differential Type Automated LAB HEMATOLOGY METHOD 06/29/2025 2:15 PM EDT [facility] Neutrophils % 55 % LAB HEMATOLOGY METHOD 06/29/2025 2:15 PM EDT [facility] Lymphocytes % 31 % LAB HEMATOLOGY METHOD 06/29/2025 2:15 PM EDT [facility] Monocytes % 8 % LAB HEMATOLOGY METHOD 06/29/2025 2:15 PM EDT [facility] Eosinophils % 5 % LAB HEMATOLOGY METHOD 06/29/2025 2:15 PM EDT [facility] Basophils % 1 % LAB HEMATOLOGY METHOD 06/29/2025 2:15 PM EDT [facility] Immature Granulocytes % 0 % LAB HEMATOLOGY METHOD 06/29/2025 2:15 PM EDT [facility] Neutrophils Absolute 4.69 1.60 - 6.10 10*3/uL LAB HEMATOLOGY METHOD 06/29/2025 2:15 PM EDT [facility] Lymphocytes Absolute 2.54 1.20 - 3.90 10*3/uL LAB HEMATOLOGY METHOD 06/29/2025 2:15 PM EDT [facility] Monocytes Absolute 0.63 0.30 - 0.90 10*3/uL LAB HEMATOLOGY METHOD 06/29/2025 2:15 PM EDT [facility] Eosinophils Absolute 0.40 0.00 - 0.50 10*3/uL LAB HEMATOLOGY METHOD 06/29/2025 2:15 PM EDT [facility] Basophils Absolute 0.06 0.00 - 0.10 10*3/uL LAB HEMATOLOGY METHOD 06/29/2025 2:15 PM EDT [facility] Immature Granulocytes Absolute 0.02 0.00 - 0.06 10*3/uL LAB HEMATOLOGY METHOD 06/29/2025 2:15 PM EDT [facility] Blood Venous blood specimen / Unknown Venipuncture / Unknown 06/29/2025 2:07 PM EDT 06/29/2025 2:12 PM EDT Narrative [facility] - 06/29/2025 2:15 PM EDT Therapeutic decision making should be based on absolute values, rather than percentages. Steve Veloz MD LAB BLOOD ORDERABLES Final R esult Performing Organization Address City/[facility] Co de Phone Number [facility] [address] [place] [address] * Prealbumin, Plasma (06/29/2025 2:07 PM EDT) Only the most recent of2 resultswithin the time period is included. Prealbumin, Plasma 20.0 20.0 - 41.0 mg/dL 06/29/2025 3:46 PM EDT [facility] Blood Venous blood specimen / Unknown Venipuncture / Unknown 06/29/2025 2:07 PM EDT 06/29/2025 3:10 PM EDT Steve Veloz MD LAB BLOOD ORDERABLES Final R esult Performing Organization Address City/[facility]/ZIP Co de Phone Number [facility] [address] [place] [address] * Comprehensive Metabolic Panel, Plasma (06/29/2025 2:07 PM EDT) Only the most recent of11 resultswithin the time period is included. Glucose, Plasma 86 74 - 99 mg/dL 06/29/2025 3:46 PM EDT [facility] BUN, Plasma 14 8 - 23 mg/dL 06/29/2025 3:46 PM EDT [facility] Creatinine, Plasma 0.64 0.60 - 1.10 mg/dL 06/29/2025 3:46 PM EDT [facility] BUN/Creatinine Ratio 22 06/29/2025 3:46 PM EDT [facility] Sodium, Plasma 141 136 - 145 mmol/L 06/29/2025 3:46 PM EDT [facility] Potassium, Plasma 3.9 3.6 - 4.9 mmol/L 06/29/2025 3:46 PM EDT [facility] Chloride, Plasma 104 97 - 107 mmol/L 06/29/2025 3:46 PM EDT [facility] CO2, Plasma 25 22 - 29 mmol/L 06/29/2025 3:46 PM EDT [facility] Anion Gap 12 6 - 16 mmol/L 06/29/2025 3:46 PM EDT [facility] Total Calcium, Plasma 9.4 8.9 - 10.2 mg/dL 06/29/2025 3:46 PM EDT [facility] Total Protein 6.8 6.3 - 7.9 g/dL 06/29/2025 3:46 PM EDT [facility] Albumin, Plasma 4.0 3.5 - 5.2 g/dL 06/29/2025 3:46 PM EDT [facility] AST, Plasma 31 10 - 35 U/L 06/29/2025 3:46 PM EDT [facility] Comment:Hemolyzed, result ma y be falsely increased. ALT, Plasma 19 10 - 35 U/L 06/29/2025 3:46 PM EDT [facility] Alkaline Phosphatase, Plasma 136 46 - 142 U/L 06/29/2025 3:46 PM EDT [facility] Total Bilirubin, Plasma 0.2 0.2 - 1.1 mg/dL 06/29/2025 3:46 PM EDT [facility] eGFRcr 92.3 mL/min/1.7 3m*2 06/29/2025 3:46 PM EDT [facility] Comment:Reported eGFRcr in m L/min/1.73m2 is based the CKD-EPI 2020 equation that does not use a race coefficient. Blood Venous blood specimen / Unknown Venipuncture / Unknown 06/29/2025 2:07 PM EDT 06/29/2025 3:10 PM EDT us Steve Veloz MD LAB BLOOD ORDERABLES Final R esult [facility] [address] [place] [address] * (ABNORMAL) CBC W/O Differential (06/16/2025 11:53 AM EDT) Only the most recent of9 resultswithin the time period is included. WBC Count 9.69 3.70 - 10.30 10*3/uL LAB HEMATOLOGY METHOD 06/16/2025 12:50 PM EDT [facility] RBC Count 4.08 3.90 - 5.20 10*6/uL LAB HEMATOLOGY METHOD 06/16/2025 12:50 PM EDT [facility] HGB 12.4 11.2 - 15.7 g/dL LAB HEMATOLOGY METHOD 06/16/2025 12:50 PM EDT [facility] HCT 38.0 34.0 - 45.0 % LAB HEMATOLOGY METHOD 06/16/2025 12:50 PM EDT [facility] Platelet Count 613(H) 155 - 369 10*3/uL LAB HEMATOLOGY METHOD 06/16/2025 12:50 PM EDT [facility] MCV 93 79 - 98 fL LAB HEMATOLOGY METHOD 06/16/2025 12:50 PM EDT [facility] MCH 30.4 26.0 - 32.0 pg LAB HEMATOLOGY METHOD 06/16/2025 12:50 PM EDT [facility] MCHC 32.6 30.7 - 35.5 g/dL LAB HEMATOLOGY METHOD 06/16/2025 12:50 PM EDT [facility] RDW 13.6 11.5 - 14.5 % LAB HEMATOLOGY METHOD 06/16/2025 12:50 PM EDT [facility] MPV 11.2 8.8 - 12.5 fL LAB HEMATOLOGY METHOD 06/16/2025 12:50 PM EDT [facility] nRBC 0.0 <=0.0 per 100 WBCs LAB HEMATOLOGY METHOD 06/16/2025 12:50 PM EDT [facility] Blood Venous blood specimen / Unknown Venipuncture / Unknown 06/16/2025 11:53 AM EDT 06/16/2025 12:24 PM EDT us Reina Ortega APRN LAB BLOOD ORDERABLES Fin al Result Performing Organization Address City/[facility]/ZIP Co de Phone Number [facility] [address] [place] [address] * Phosphorus, Plasma (06/08/2025 3:59 AM EDT) Only the most recent of9 resultswithin the time period is included. Phosphorus, Plasma 4.1 2.5 - 4.5 mg/dL 06/08/2025 4:52 AM EDT [facility] Blood Venous blood specimen / Unknown Venipuncture / Unknown 06/08/2025 3:59 AM EDT 06/08/2025 4:23 AM EDT us Steve Veloz MD LAB BLOOD ORDERABLES Final R esult Performing Organization Address City/[facility]/ZIP Co de Phone Number [facility] [address] [place] [address] * (ABNORMAL) Magnesium, Plasma (06/08/2025 3:59 AM EDT) Only the most recent of9 resultswithin the time period is included. Magnesium, Plasma 1.6(L) 1.9 - 2.4 mg/dL 06/08/2025 4:52 AM EDT [facility] Blood Venous blood specimen / Unknown Venipuncture / Unknown 06/08/2025 3:59 AM EDT 06/08/2025 4:23 AM EDT us Steve Veloz MD LAB BLOOD ORDERABLES Final R esult [facility] [address] [place] [address] * (ABNORMAL) Blood gas panel, arterial (05/31/2025 5:04 PM EDT) pH, Arterial 7.35 7.31 - 7.42 LAB HEMATOLOGY METHOD 05/31/2025 5:12 PM EDT [facility] pCO2, Arterial 40 35 - 48 mmHg LAB HEMATOLOGY METHOD 05/31/2025 5:12 PM EDT [facility] pO2, Arterial 79 >70 mmHg LAB HEMATOLOGY METHOD 05/31/2025 5:12 PM EDT [facility] SO2, Measured, Arterial 96 94 - 98 % LAB HEMATOLOGY METHOD 05/31/2025 5:12 PM EDT [facility] Base Excess, Arterial -3.1(L) -2.0 - 3.0 mmol/L LAB HEMATOLOGY METHOD 05/31/2025 5:12 PM EDT [facility] Bicarbonate, Calculated, Arterial 22 22 - 26 mmol/L LAB HEMATOLOGY METHOD 05/31/2025 5:12 PM EDT [facility] Hematocrit, Whole Blood 37.7 34.0 - 45.0 % LAB HEMATOLOGY METHOD 05/31/2025 5:12 PM EDT [facility] Sodium, Whole Blood 142 136 - 145 mmol/L LAB HEMATOLOGY METHOD 05/31/2025 5:12 PM EDT [facility] Potassium, Whole Blood 3.2(L) 3.6 - 4.9 mmol/L LAB HEMATOLOGY METHOD 05/31/2025 5:12 PM EDT [facility] Chloride, Whole Blood 110(H) 97 - 107 mmol/L LAB HEMATOLOGY METHOD 05/31/2025 5:12 PM EDT [facility] Glucose, Whole Blood 166(H) 74 - 99 mg/dL LAB HEMATOLOGY METHOD 05/31/2025 5:12 PM EDT [facility] Ionized Calcium, Whole Blood 4.6 4.6 - 5.1 mg/dL LAB HEMATOLOGY METHOD 05/31/2025 5:12 PM EDT [facility] Lactate, Arterial, Whole Blood 0.7 0.5 - 1.6 mmol/L LAB HEMATOLOGY METHOD 05/31/2025 5:12 PM EDT [facility] Blood Arterial blood specimen / Unknown Arterial Puncture / Unknown 05/31/2025 5:04 PM EDT 05/31/2025 5:11 PM EDT Steve Veloz MD LAB BLOOD ORDERABLES Final R esult [facility] [address] [place] [address] * Surgical Pathology Exam (05/31/2025 2:44 PM EDT) Case Report Surgical Pathology Case: [id number] Authorizing Provider: Steve Veloz MD Collected: 05/31/2025 1444 Ordering Location: [facility] Received: 05/31/2025 1449 Pathologist: Elaina Katz MD Intraop: Bel Lira MD Specimens: A) - Other (specify site), pamela-hepatic nodule B) - Lymph Node (specify site):, hepatic artery lymph nodes C) - Other (specify site), central portal lymph node D) - Lymph Node (specify site):, clay caval lymph node E) - Other (specify site), cystic duct margin - stitch burgos true margin F) - Lymph Node (specify site):, left portal lymph nodes G) - Liver, segment 4B/5 partial hepatectomy 06/03/2025 4:37 PM EDT [facility] Final Diagnosis A. PAMELA-HEPATIC NODULE, EXCISION: - [...] WITH MILD STEATOSIS. 06/03/2025 4:37 PM EDT [facility] at 1637 EDT Comment:This is an appended report. These results have been appended to a previously preliminary verified report. Clinical Information 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] 06/03/2025 4:37 PM EDT [facility] Comment:This is an appended report. These results have been appended to a previously preliminary verified report. Intraoperative Consultation A. PAMELA-HEPATIC NODULE PAMELA-HEPATIC NODULE FOR FROZEN: SINGLE LARGE CALCULUS, NEGATIVE FOR TUMOR. TISSUE SURROUNDING STONE IS ABRADED AND CHRONICALLY INFLAMED. 06/03/2025 4:37 PM EDT [facility] Microscopic Description The permanent sections support the frozen section diagnosis. 06/03/2025 4:37 PM EDT [facility] Comment:This is an appended report. These [...] Time: 1h 43m KOFI Harris (ASCP) D. CLAY CAVAL LYMPH NODE The specimen is received [...] x 1.1 x 0.3 cm portion of brown-holland fibromembranous tissue. Specimen is entirely submitted en [...] surface. A discrete mass is not identified. Turnaround Planner sections are submitted in cassettes G1-G3. Cold Time: 54m KOFI Harris (ASCP) 06/03/2025 4:37 PM EDT [facility] Comment:This is an appended report. These [...] MD LAB PATHOLOGY ORDERABLES Fin al Result [facility] [address] [place] [address] * PB ANESTHESIA NON-TIMED PROCEDURE PLACEHOLDER (05/31/2025 2:20 PM EDT) Matteo Michael MD - 05/31/2025 2:20 PM EDT Matteo [...] * Peripheral IV (05/31/2025 2:20 PM EDT) Matteo Michael MD - 05/31/2025 2:20 PM EDT Matteo Quiros MD 05/31/2025 2:26 PM Peripheral IV Placement Needle size: 18 G Location: hand Technique: anatomical landmarks Attempts: 1 Matteo Quiros MD ANESTHESIA ORDERABLES Final R esult * RI AN ELECTIVE ENDOTRACHEAL AIRWAY, PB ANESTHESIA PLACEHOLDER (05/31/2025 1:28 PM EDT) Matteo Michael MD - 05/31/2025 1:28 PM EDT Matteo [...] Additional Comments Atraumatic. No change to dentition. us Matteo Quiros MD ANESTHESIA ORDERABLES Final [...] 05/31/2025 11:12:00 AM lidocaine-EPINEPHrine (XYLOCAINE W/EPI) 1.5 %-1:[id number] - Epidural 3 mL - 05/31/2025 11:12:00 [...] 05/31/2025 10:32 AM EDT Matteo Quiros MD [facility] BLOOD BANK TEST ORDERABLE S Final Result Performing Organization Address [facility] de Phone Number BLOOD BANK [address] [place] [address], * ECG Adult (Now - Performed in your clinic) (05/25/2025 12:16 PM EDT) EKG DIAGNOSIS CLASS Borderline Abnormal MUSE ECG Ventricular Rate 77 BPM MUSE ECG Atrial Rate 77 BPM MUSE ECG RI Interval 174 ms MUSE ECG QRSD Interval 90 ms MUSE ECG QT Interval 402 ms MUSE ECG QTC Interval 454 ms MUSE ECG P [place] 63 degrees MUSE ECG R [place] 39 degrees MUSE ECG T Wave [place] 50 degrees MUSE ECG Diagnosis Poor data [...] ECG ORDERABLES Final Result Performing Organization Address City/[facility] Co de Phone Number MUSE ECG from Last 3 Months Insurance MEDICARE [employer] COMMERCIAL Advance Directives Documents on File Type Date Recorded Patient Turnaround Planner Expl anation Advance Directives and Living Will 05/25/2025 Power of Vocational Adviser 05/25/2025 * Full Code (Latest Code Status on File) Date Activated Date Inactivated Comments 05/31/2025 4:54 PM 06/08/2025 4:32 PM Question Answer Comments I have reviewed the capacity from the link above and, if needed, have updated to appropriate status: Yes Care Teams Assisted Living Housekeeper Relationship Specialty Start Date End Date Efrain Angeles MD [address] [place] [id number] PCP - General 04/03/24
--- OUTSIDE RECORDS SUMMARY | 2025-08-17 08:20 | XMS_ITS | Clinical Summary ---
Author Organization [employer] ([place], [place], [place], [place], [place]) Address [address] [place] [address] Care Team Providers Care Deblocker Name Role Phone Unavailable Primary Care Provider [...] Date Last Done Comments DXA SCAN 1950 Depression Screening (12+) 1961 Tobacco Cessation Counseling and Screening (12+) 1961 Hepatitis C Screening 1967 DTAP/TDAP/TD VACCINES (1 - Tdap) 1968 Pneumococcal 50+ years (1 of 1 - PCV) 1999 Medicare Initial AWV G0438 07/25/2015 Shingles Vaccine (Zoster) (2 of 2) 07/01/20202019 Respiratory Syncytial Virus (RSV) Adult or (1 - 1-dose 75+ series) 2024 Falls Risk Screening 09/23/2024 COVID-19 VACCINE (4 - 2024-2 6 season) 2025 06/14/2021, 10/26/2020, 09/28/2020 Influenza Vaccine (#1) 2025 06/11/2022, 2020 Breast [...] family history of breast cancer COMPARISON STUDIES: [facility] [phone]; no significant change. FINDINGS: Craniocaudal and mediolateral [...] annual screening mammography. At our facility, a ewiiaapaayp marker is positioned over a visible skin [...] family history of breast cancer COMPARISON STUDIES: [facility] [phone]; no significant change. FINDINGS: Craniocaudal and mediolateral [...] annual screening mammography. At our facility, a ewiiaapaayp marker is positioned over a visible skin [...] Health Maintenance Insurance MEDICARE [place] [address] [address]
--- OUTSIDE RECORDS SUMMARY | 2025-08-17 08:20 | XMS_ITS | Encounter Summary ---
Author Organization Healthcare Address [address] [place] [address] Care Team Providers Care Land Law Examiner Name Role Phone Efrain Angeles MD Primary Care Provider Encounter Details Date Type Department Care Team ([facility] st Contact Info) Description 04/01/2025 Orders Only External Location [address] [place] [address] Marbin Cartwright, [address] [place] [address] Social History Tobacco Use Types Packs/Day Years [...] documented as of this encounter Care Teams Land Law Examiner Relationship Specialty Start Date End Date Efrain Angeles MD [address] [place] [id number] PCP - General 04/03/24 documented as of this encounter
--- OUTSIDE RECORDS SUMMARY | 2025-08-17 08:20 | XMS_ITS | Encounter Summary ---
Author Organization [facility] Address [address] [place] [id number] Care Team Providers Care Inbound Ingredient Logistics Specialist Name Role Phone Efrain Angeles MD Primary Care Provider [phone] Encounter Details Date Type Department Care Team (Latest Contact Info) Description 07/12/2025 Travel Social History Tobacco Use Types Packs/Day [...] Description 07/25/2026 1:15 PM EST Office Visit [facility] [address] [facility] [address] [place] [phone] Rita Lei, SALES MARKETING DIRECTOR [address] [facility] [address] [place] [address] documented as of this encounter Visit Diagnoses Not on filedocumented in this encounter Care Teams Inbound Ingredient Logistics Specialist Relationship Specialty Start Date End Date Efrain Angeles MD [address] [facility] [address] [place] [address] PCP - General Family Medicine 07/16/22 documented as of this encounter
--- OUTSIDE RECORDS SUMMARY | 2025-08-17 08:20 | XMS_ITS | Encounter Summary ---
Author Organization Healthcare Address [address] [place] [address] Care Team Providers Care Field Marketing Team Leader Name Role Phone Nate [place] MD Primary Care Provider [phone] Efrain Angeles MD Primary Care Provider [phone] Encounter Details Date Type Department Care Team (Late st Contact Info) Description 03/23/2022 Orders Only [facility] [address] [place] [address] Ebony Albrecht MD [address] [address] Social History Tobacco Use [...] External Glucose 116(H) 74 - 100 mg/dL [facility] External BUN 15 6 - 20 mg/dL [facility] External Creatinine Blood 0.67 0.50 - 0.95 mg/dL [facility] External BUN/Creat Ratio 22(H) 10 - 20 (calc) [facility] External Sodium 141 136 - 145 mmol/L [facility] External Potassium 3.3(L) 3.4 - 5.0 mmol/L [facility] External Chloride 103 98 - 107 mmol/L [facility] External Carbon Dioxide 27 22 - 31 mmol/L [facility] External Anion Gap (AG) 11 7 - 25 (calc) [facility] External Calcium 9.5 8.6 - 10.2 mg/dL [facility] External Total Protein 7.0 6.4 - 8.3 g/dL [facility] External Albumin 4.2 3.5 - 5.2 g/dL [facility] External Globulin 2.8 1.5 - 4.5 g/dL (calc) [facility] External Albumin/Globulin Ratio 1.5 1.1 - 2.5 (calc) [facility] External Bilirubin Total 0.4 0.1 - 1.2 mg/dL [facility] External Alkaline Phosphatase 104 30 - 121 U/L [facility] External AST (SGOT) 19 0 - 32 U/L [facility] External ALT (SGPT) 17 0 - 33 U/L [facility] External Estimated GFR 92 >=60 [facility] Comment: NOTE New calculation for GFR (CKD-EPI 2020) is formulated without race adjustment factors at the recommendation of the National Kidney Foundation and [place] [employer] of Nephrology. This calculation has not been validated in women. For pediatric patients refer to https://www.kidney.org/professionals/KDOQI/gfr_calculatorPed 03/23/2022 9:07 AM EDT 03/23/2022 9:25 AM EDT us Ebony Albrecht MD LAB BLOOD ORDERABLES Final Re sult [facility] [address] [place] [id number], [place] [phone] documented in this encounter Visit Diagnoses Not on filedocumented in this encounter Care Teams Field Marketing Team Leader Relationship Specialty Start Date End Date Nate [place] MD [address] [facility] [address] [place] [address] PCP - General 09/23/20 04/02/24 Efrain Angeles MD 1210 [facility] [address] [place] [address] PCP - General 04/03/24 documented as of this encounter
--- OUTSIDE RECORDS SUMMARY | 2025-08-17 08:20 | XMS_ITS | Encounter Summary ---
Author Organization Healthcare Address [address] [place] [address] Care Team Providers Care Torpedoman'S Mate Name Role Phone Nate [place] MD Primary Care Provider [phone] Efrain Angeles MD Primary Care Provider [phone] Encounter Details Date Type Department Care Team (Late st Contact Info) Description 03/14/2021 Orders Only [facility] @ [facility] [address] [place] [address] Efrain La, KOFI [address] [place] [address] Social History Tobacco Use Types Packs/Day Years [...] External D-Dimer 1.12(H) <0.50 mcg/mL FEU [facility] Comment: The D-Dimer test [...] 11:295(2):199-207] For additional information, please refer to: http://education.Red Aril/faq/CUZ143 (This link is being provided for informational/ educational purposes only) TEST PERFORMED AT: [employer] [place] [address] [place] [address] HARVINDER CULVER M.D. 03/14/2021 1:48 PM EDT 03/14/2021 2:38 PM EDT us Efrain KIRBY LAB BLOOD ORDERABLES Final R esult [facility] [address] [place] [address], documented in this encounter Visit Diagnoses Not on filedocumented in this encounter Care Teams Torpedoman'S Mate Relationship Specialty Start Date End Date Nate [place] MD 1210 [facility] [address] [place] [address] PCP - General 09/23/20 04/02/24 Efrain Angeles MD 1210 [facility] [address] [facility] [place] [id number] PCP - General 04/03/24 documented as of this encounter
--- OUTSIDE RECORDS SUMMARY | 2025-08-17 08:20 | XMS_ITS | Encounter Summary ---
Author Organization Healthcare Address [address] [place] [address] Care Team Providers Care Executive Director Of Nursing Name Role Phone Efrain Angeles MD Primary Care Provider [phone] Encounter Details Date Type Department Care Team ([facility] st Contact Info) Description 06/25/2025 Telephone [facility] [address] [place] [address] Steve Veloz MD [address] [address] Social History Tobacco Use Types Packs/Day Years [...] time in the past 12 m [facility], were you homeless or living in a snf (including now)? No 06/01/2025 [facility] Utilities Answer Date Recorded In [...] optimal time of day to reach caller: [phone] Note: Please do not reply to this message. Follow-up communication and further actions as a result of this message need to be communicated with the patient directly, if the patient is not active onMyChart. If the patient is active on MyChart, they will receive notification of the communication/outcome via [employer]. documented in this encounter Plan of Treatment [...] documented as of this encounter Care Teams Executive Director Of Nursing Relationship Specialty Start Date End Date Efrain Angeles MD [address] [place] [address] PCP - General 04/03/24 documented as of this encounter
--- OUTSIDE RECORDS SUMMARY | 2025-08-17 08:20 | XMS_ITS | Encounter Summary ---
Author Organization Healthcare Address [address] [place] [address] Care Team Providers Care Biomedical Engineering Internship Name Role Phone Efrain Angeles MD Primary Care Provider [phone] Encounter Details Date Type Department Care Team (Late st Contact Info) Description 05/05/2025 Lab Requisition [facility] [address] [place] [address] Steve Veloz MD [address] [address] Cholecystitis, unspecified Social History Tobacco Use Types [...] EDT) Case Report Sugical Pathology Consult Case: [id number] Authorizing Provider: Steve Veloz MD Collected: 05/05/2025 1325 Ordering Location: [facility] Received: 05/05/2025 1325 Pathologist: Marbin Patterson MD Specimen: Gallbladder, [id number] 05/14/2025 5:17 PM EDT [facility] Final Diagnosis GALLBLADDER, SIMPLE CHOLECYSTECTOMY (OUTSIDE CASE: [id number] COLLECTED ON 03/25/2025): - INVASIVE WELL-DIFFERENTIATE D [...] Cholecystitis, unspecified [ICD-10-CM] 05/14/2025 5:17 PM EDT [facility] Gross Description A. [id number] Received along with a corresponding pathology report from [facility]ology [facility] Cytology Laboratory are 38 slide(s) labeled outside case: [id number] collected on 03/25/2025. 05/14/2025 5:17 PM EDT [facility] Tissue Gallbladder structure / Unknown 05/05/2025 1:25 PM EDT 05/05/2025 1:25 PM EDT us Steve Veloz MD LAB PATHOLOGY ORDERABLES Fin al Result [facility] [address] [place] [address] documented in this encounter Visit Diagnoses Diagnosis Cholecystitis, unspecified documented in this encounter Additional Health Concerns Assessment Noted Time A Body Mass Index follow-up plan has been documented for the patient 04/20/2024 4:59 PM EDT documented as of this encounter Care Teams Biomedical Engineering Internship Relationship Specialty Start Date End Date Efrain Angeles MD [address] [place] [address] PCP - General 04/03/24 documented as of this encounter
--- OUTSIDE RECORDS SUMMARY | 2025-08-17 08:20 | XMS_ITS | Encounter Summary ---
Author Organization Healthcare Address [address] [place] [address] Care Team Providers Care Surfboard Maker Name Role Phone Efrain Angeles MD Primary Care Provider [phone] Encounter Details Date Type Department Care Team ([facility] st Contact Info) Description 03/01/2025 Orders Only External Location [address] [place] [address] Provider, External Social History Tobacco Use Types [...] documented as of this encounter Care Teams Surfboard Maker Relationship Specialty Start Date End Date Efrain Angeles MD [address] [place] [address] PCP - General 04/03/24 documented as of this encounter
--- OUTSIDE RECORDS SUMMARY | 2025-08-17 08:20 | XMS_ITS | Encounter Summary ---
Author Organization Healthcare Address [address] [place] [address] Care Team Providers Care Creche Attendant Name Role Phone Nate [place] MD Primary Care Provider [phone] Efrain Angeles MD Primary Care Provider [phone] Encounter Details Date Type Department Care Team (Late st Contact Info) Description 03/14/2021 Orders Only [facility] @ [facility] [address] [place] [address] Efrain La, KOFI [address] [place] [address] Social History Tobacco Use Types Packs/Day Years [...] Sedimentation Rate 25 0 - 29 MM/HR [facility] 03/14/2021 1:48 PM EDT 03/14/2021 2:10 PM EDT Efrain KIRBY LAB BLOOD ORDERABLES Final R esult [facility] [address] [place] [address], documented in this encounter Visit Diagnoses Not on filedocumented in this encounter Care Teams Creche Attendant Relationship Specialty Start Date End Date Nate [place] MD 1210 [facility] [address] [place] [address] PCP - General 09/23/20 04/02/24 Efrain Angeles MD 1210 [facility] [address] [place], [place] [address] PCP - General 04/03/24 documented as of this encounter
--- OUTSIDE RECORDS SUMMARY | 2025-08-17 08:20 | XMS_ITS | Clinical Summary ---
Author Organization [facility] Address [address] [place] [address] Care Team Providers Care Shared Services Manager Name Role Phone Efrain Angeles MD Primary Care Provider [phone] Allergies Active Allergy Reactions Criticality Noted Date Comments Latex Rash Low 07/16/2022 Nickel Rash Low 07/16/2022 Medications Aspirin 81 MG capsule As Needed. Active albuterol sulfate HFA 108 (90 Base) MCG/ACT inhaler albuterol sulfate HFA 90 mcg/actuation aerosol inhaler INHALE 2 PUFFS FOUR TIMES DAILY NEEDED Active potassium chloride 10 MEQ CR tablet Daily. Active triamterene-hyd rochlorothiazid e (MAXZIDE-25) 37.5-25 MG per tablet Daily. Active coenzyme Q10 100 MG capsule Take 1 capsule by mouth Daily. Active Probiotic Product (Align) capsule Take 1 capsule by mouth Daily. 3 Active oxybutynin XL (DITROPAN XL) 15 MG 24 hr tablet Take 1 tablet by mouth Daily. Active pantoprazole (PROTONIX) 40 MG EC tablet Take 1 tablet by mouth Daily. Active acetaminophen (TYLENOL) 500 MG tablet Take 1 tablet by mouth As Needed for Mild Pain. Active Lidocaine 4 % Place 1 patch on the skin as directed by provider Daily. Remove & Discard patch within 12 hours or as directed by MD Active Active Problems Problem Noted Date Diagnosed Date Bruit of right carotid artery 07/16/2022 Essential hypertension 07/16/2022 Mixed hyperlipidemia 07/16/2022 Abnormal EKG 07/16/2022 Encounters Date Type Department Care Team Description 07/12/2025 3:45 PM EDT Office Visit [facility] [address] [place] [address] Steve Correa MD Abnormal EKG (Primary Dx); Bruit of right carotid artery; Essential hypertension 07/12/2025 Travel from Last 3 Months Family History Medical [...] EDT Inhaled Oxygen Concentration - - Weight 61.2 kg (135 lb) 07/12/2025 3:17 PM EDT Height 165.1 cm (5' 5 ) 07/12/2025 3:17 PM EDT Body Mass Index 22.47 07/12/2025 3:17 PM EDT Plan of Treatment Upcoming Encounters Date Type Department Care Team (Late st Contact Info) Description 07/25/2026 1:15 PM EST Office Visit [facility] [address] [facility] [address] [place] [address] Rita Lei, CLUTCH INSPECTOR 1720 [facility] [address] [place], [place] [id number] Health Maintenance Due Date Last Done Comments DXA SCAN 1949 LIPID PANEL 1949 TDAP/TD VACCINES (1 - Tdap) 1968 Pneumococcal Vaccine 50+ (1 of 1 - PCV) 1999 ZOSTER VACCINE (2 of 2) 07/01/2020 05/06/2020 ANNUAL WELLNESS VISIT 07/15/2022 HEPATITIS C SCREENING 07/15/2022 RSV Vaccine - Adults (1 - 1- dose 75+ series) 2024 INFLUENZA VACCINE 04/23/2025 06/11/2022, , 05/27/2020, Additional history exists COVID-19 Vaccine ( - 2024-2 6 season) 2025 06/14/2021, 10/26/2020, 09/28/2020 MAMMOGRAM Discontinued 11/16/2020, 10/25, 11/11/2019, Additional history exists Procedures Procedure Name Priority Date/Time Associated Diagnosis Comments ECG 12-LEAD Routine 07/12/2025 Abnormal EKG Essential hypertension from Last 3 Months Results * ECG 12-LEAD (07/12/2025) Narrative 07/12/2025 [...] from the original note were not included. [facility] Cardiology [facility], [address] [place], [address] [facility]W.[facility] OUTPATIENT CLINIC FOLLOW-UP NOTE Patient care [...] inferolateral leads Brother was a heavy smoker, [place] at 38. Sister had congenital heartdisease/rheumatic heart disease, CABG at 42 Biatrial enlargement, RV enlargement, grade 1 diastolic dysfunction Echo fall 2021 Right carotid bruit Carotid duplex 07/2022: No obstructive disease, antegrade vertebral flow Hypertension Cervical cancer treated at approximate age 29 Colon cancer treated at approximately age 59 Gallbladder cancer, status post laparoscopic surgery, lymph nodedissection, partial hepatectomy, [facility], 05/2025 Former tobacco use, quit [...] diastolic dysfunction, mild biatrialenlargement, mild RV enlargement OSH exercise nuclear stress [...] Steve Correa MD ECG ORDERABLES Final Result from Last 3 Months Insurance [facility] [place] [id number] MEDICARE A & B Care Teams Shared Services Manager Relationship Specialty Start Date End Date Efrain Angeles MD [address] [facility] [address] [place] [address] PCP - General Family Medicine 07/16/22
--- OUTSIDE RECORDS SUMMARY | 2025-08-17 08:20 | XMS_ITS | Encounter Summary ---
Author Organization Healthcare Address [address] [place] [address] Care Team Providers Care Carry Out Clerk Name Role Phone Nate [place] MD Primary Care Provider [phone] Efrain Angeles MD Primary Care Provider [phone] Encounter Details Date Type Department Care Team (Late st Contact Info) Description 03/14/2021 Orders Only [facility] @ [facility] [address] [place] [address] Efrain La, KOFI [address] [place], [place] [id number] Social History Tobacco Use Types Packs/Day Years [...] C-Reactive Protein 0.15 0.00 - 0.49 mg/dL [facility] 03/14/2021 1:48 PM EDT 03/14/2021 2:09 PM EDT us Efrain KIRBY LAB BLOOD ORDERABLES Final R esult [facility] [address] [place] [address], documented in this encounter Visit Diagnoses Not on filedocumented in this encounter Care Teams Carry Out Clerk Relationship Specialty Start Date End Date Nate [place] MD 1210 [facility] [address] [place] [address] PCP - General 09/23/20 04/02/24 Efrain Angeles MD 1210 [facility] [address] [place] [address] PCP - General 04/03/24 documented as of this encounter
--- OUTSIDE RECORDS SUMMARY | 2025-08-17 08:20 | XMS_ITS | Encounter Summary ---
Author Organization Healthcare Address [address] [place] [address] Care Team Providers Care Care Information Associate Name Role Phone Nate [place] MD Primary Care Provider [phone] Efrain Angeles MD Primary Care Provider [phone] Encounter Details Date Type Department Care Team (Late st Contact Info) Description 03/20/2021 Orders Only [facility] @ [facility] [address] [place] [address] Ebony Albrecht MD [address] [address] Social History Tobacco Use Types [...] Glucose 91 74 - 100 mg/dL [facility] External BUN 18 6 - 20 mg/dL [facility] External Creatinine Blood 0.69 0.50 - 0.95 mg/dL [facility] External BUN/Creat Ratio 26(H) 10 - 20 (calc) [facility] External Sodium 143 136 - 145 mmol/L [facility] External Potassium 3.8 3.4 - 5.0 mmol/L [facility] External Chloride 104 98 - 107 mmol/L [facility] External Carbon Dioxide 29 22 - 31 mmol/L [facility] External Anion Gap (AG) 10 7 - 25 (calc) [facility] External Calcium 10.0 8.6 - 10.2 mg/dL [facility] External Total Protein 6.8 6.4 - 8.3 g/dL [facility] External Albumin 4.2 3.5 - 5.2 g/dL [facility] External Globulin 2.6 1.5 - 4.5 g/dL (calc) [facility] External Albumin/Globulin Ratio 1.6 1.1 - 2.5 (calc) [facility] External Bilirubin Total 0.4 0.1 - 1.2 mg/dL [facility] External Alkaline Phosphatase 98 35 - 106 U/L [facility] External AST (SGOT) 21 0 - 32 U/L [facility] External ALT (SGPT) 16 0 - 33 U/L [facility] External EGFR (If AFR/AM) 101 >=60 [facility] External Estimated GFR 87 >=60 [facility] Comment: NOTE Chronic kidney disease [...] LAB BLOOD ORDERABLES Final Re sult [facility] [address] [place] [address], documented in this encounter Visit Diagnoses Not on filedocumented in this encounter Care Teams Care Information Associate Relationship Specialty Start Date End Date Nate [place] MD 1210 [facility] [address] [place], [place] [id number] PCP - General 09/23/20 04/02/24 Efrain Angeles MD 1210 [facility] [address] [address] PCP - General 04/03/24 documented as of this encounter
--- OUTSIDE RECORDS SUMMARY | 2025-08-17 08:20 | XMS_ITS | Encounter Summary ---
Author Organization Healthcare Address [address] [place] [address] Care Team Providers Care Deck Molder Name Role Phone Efrain Angeles MD Primary Care Provider [phone] Encounter Details Date Type Department Care Team [...] in a long-term (including now)? No 06/01/2025 [facility] Utilities Answer Date Recorded In [...] documented as of this encounter Care Teams Deck Molder Relationship Specialty Start Date End Date Efrain Angeles MD [address] [place] [address] PCP - General 04/03/24 documented as of this encounter
--- OUTSIDE RECORDS SUMMARY | 2025-08-17 08:20 | XMS_ITS | Encounter Summary ---
Author Organization Healthcare Address [address] [place] [address] Care Team Providers Care Internal Combustion Engineer Name Role Phone Nate [place] MD Primary Care Provider [phone] Efrain Angeles MD Primary Care Provider [phone] Encounter Details Date Type Department Care Team (Late st Contact Info) Description 03/20/2021 Orders Only [facility] @ [facility] [address] [place] [address] Ebony Albrecht MD [address] [address] Social History Tobacco Use Types [...] External WBC 10.7 3.8 - 10.8 K/uL [facility] External Red Blood Cell (RBC) 4.31 3.80 - 5.20 M/uL [facility] External Hemoglobin 13.7 12.0 - 16.0 G/DL [facility] External Hematocrit 39.4 35.0 - 47.0 % [facility] External MCV 91 80 - 100 fL [facility] External MCH 32 26 - 35 [facility] External MCHC 35 32 - 36 G/DL [facility] External RDW 13.1 11.0 - 15.0 % [facility] External Mean Platelet Volume 9.4 6.2 - 10.5 fL [facility] External Platelets 264 130 - 400 K/uL [facility] External Neutrophil# 6.0 1.6 - 8.4 K/uL [facility] External Lymphocyte# 2.8 0.4 - 5.1 K/uL [facility] External Absolute Monocyte (Abs [place]) 0.7 0.0 - 1.2 K/uL [facility] External Eosinophils# 1.1(H) 0.0 - 0.8 K/uL [facility] External Baso# 0.1 0.0 - 0.3 K/uL [facility] External Neutrophils % 56.2 42.0 - 78.0 % [facility] External Lymphocyte % 26.2 11.0 - 47.0 % [facility] External Monocyte % 6.2 0.0 - 11.0 % [facility] External Eosinophil% 10.6(H) 0.0 - 7.0 % [facility] External Basophil % 0.8 0.0 - 3.0 % [facility] External Nucleated RBC%-Auto 0.0 0.0 - 0.9 % [facility] External Nucleated RBC Absolute 0.00 Not Estab. K/uL [facility] 03/20/2021 9:07 AM EDT 03/20/2021 9:25 AM EDT us Ebony Albrecht MD LAB BLOOD ORDERABLES Final Re sult [facility] [address] [place] [address], documented in this encounter Visit Diagnoses Not on filedocumented in this encounter Care Teams Internal Combustion Engineer Relationship Specialty Start Date End Date Nate [place] MD 1210 [facility] [address] [place] [address] PCP - General 09/23/20 04/02/24 Efrain Angeles MD 1210 [facility] [address] [place] [address] PCP - General 04/03/24 documented as of this encounter
--- OUTSIDE RECORDS SUMMARY | 2025-08-17 08:20 | XMS_ITS | Encounter Summary ---
Author Organization Healthcare Address [address] [place] [address] Care Team Providers Care Upholstery Bundler Name Role Phone Efrain Angeles MD Primary Care Provider [phone] Encounter Details Date Type Department Care Team ([facility] st Contact Info) Description 08/04/2025 Telephone [facility] [address] [place] [address] Steve Veloz MD [address] [address] Social History Tobacco Use Types Packs/Day Years [...] a [facility] (including now)? No 06/01/2025 [facility] Utilities Answer Date Recorded In the [...] encounter Miscellaneous Notes * Telephone Encounter - Jeffy Saldana Lauren - 08/12/2025 1:29 PM EST Status Update Call #3 3rd call regarding the status of the initial request. Best contact number: [phone] (mobile) Optimal time of day to reach caller: ANYTIME Additional comments/information from caller: pt calling back to check in the status of a receipt from the pharmacy Note: Please do not reply to this message. Follow-up communication and further actions as a result of this message need to be communicated with the patient directly, if the patient is not active onMyChart. If the patient is active on MyChart, they will receive notification of the communication/outcome via MyChart. * Telephone Encounter - Edilma Castro - 08/09/2025 1:03 PM EST Patient Phone Message Reason for Call: Patient is reaching back out about his receipts from the pharmacy. She spoke with Candace about it. She is following up to see where they are at in receiving her receipts. Best contact number and optimal time of day to reach caller: [phone] Note: Please do not reply to this message. Follow-up communication and further actions as a result of this message need to be communicated with the patient directly, if the patient is not active onMyChart. If the patient is active on MyChart, they will receive notification of the communication/outcome via MyChart. * Telephone Encounter - Candace Lindsay RN - 08/04/2025 12:13 PM EST Called and spoke with patient, she is needing proof of payment for meds to bed for reimbursement through insurance. She is needing receipt of payment for her meds from discharge on 06/08. * Telephone Encounter - Kathrine Moreno - 08/04/2025 10:10 AM EST Patient Phone Message Reason for Call: Calling to say she needs a detailed copy of meds to bed so that she can submit it to her insurance. Best contact number and optimal time of day to reach caller: [phone] Note: Please do not reply to this message. Follow-up communication and further actions as a result of this message need to be communicated with the patient directly, if the patient is not active onMyChart. If the patient is active on MyChart, they will receive notification of the communication/outcome via [employer]. documented in this encounter Plan of Treatment [...] documented as of this encounter Care Teams Upholstery Bundler Relationship Specialty Start Date End Date Efrain Angeles MD [address] [place] [address] PCP - General 04/03/24 documented as of this encounter
--- OUTSIDE RECORDS SUMMARY | 2025-08-17 08:20 | XMS_ITS | Encounter Summary ---
Author Organization Healthcare Address [address] [place] [address] Care Team Providers Care Railroad Worker Name Role Phone Nate Mills MD Primary Care Provider [phone] Efrain Angeles MD Primary Care Provider [phone] Encounter Details Date Type Department Care Team (Late st Contact Info) Description 03/23/2022 Orders Only [facility] at [facility] [address] [place] [phone] Ebony Albrecht MD [address] [address] Social History Tobacco Use Types [...] External [facility] 31 26 - 35 PG [facility] External [facility] 34 32 - [...] [facility] External Absolute Monocyte (Abs [place]) 0.7 0.0 - 1.2 K/uL [facility] [...] Re sult [facility] [address] [place] [address], documented in this encounter Visit Diagnoses Not on filedocumented in this encounter Care Teams Railroad Worker Relationship Specialty Start Date End Date Nate Mills MD [address] [facility] [address] [place] [address] PCP - General 09/23/20 04/02/24 Efrain Angeles MD [address] [facility] [address] [place] [address] PCP - General 04/03/24 documented as of this encounter
--- OUTSIDE RECORDS SUMMARY | 2025-08-17 08:20 | XMS_ITS | Referral Summary ---
Author Organization [employer] ([place], [place], [place], [place], [place]) Address [address] [place] [address] Care Team Providers Care Wardrobe Specialist Name Role Phone Unavailable Primary Care [...] family history of breast cancer COMPARISON STUDIES: [facility] [phone]; no significant change. FINDINGS: Craniocaudal and mediolateral [...] annual screening mammography. At our facility, a [place] marker is positioned over a visible skin [...] family history of breast cancer COMPARISON STUDIES: [facility] [phone]; no significant change. FINDINGS: Craniocaudal and mediolateral [...] annual screening mammography. At our facility, a [place] marker is positioned over a visible skin [...] for the next mammogram. Sandrine Mckeon MD [facility] MAMMOGRAPHY ORDERABLES F inal Result from Last 3 Months or Most Recently Relevant to Health Maintenance Insurance MEDICARE PART [place] [address] [place] [address]
--- OUTSIDE RECORDS SUMMARY | 2025-08-17 08:20 | XMS_ITS | Encounter Summary ---
Author Organization Healthcare Address [address] [place] [address] Care Team Providers Care Truck Sales Manager Name Role Phone Nate Mills MD Primary Care Provider [phone] Efrain Angeles MD Primary Care Provider [phone] Encounter Details Date Type Department Care Team (Late st Contact Info) Description 03/23/2022 Orders Only [facility] [address] [place] [phone] Ebony Albrecht MD [address] [address] Social History Tobacco Use Types [...] Carcinoembryonic Antigen 4.2 0.0 - 4.7 ng/mL [facility] Comment: This test was performed using the Abdelrahman Awilda E801 electrochemiluminescent method. Values obtained from different assay methods cannot be used interchangeably. . 03/23/2022 9:07 AM EDT 03/23/2022 9:25 AM EDT us Ebony Albrecht MD LAB BLOOD ORDERABLES Final Re sult [facility] [address] [place] [address], documented in this encounter Visit Diagnoses Not on filedocumented in this encounter Care Teams Truck Sales Manager Relationship Specialty Start Date End Date Nate Mills MD 12[address] [facility] [address] [place] [address] PCP - General 09/23/20 04/02/24 Efrain Angeles MD [address] [facility] [address] [place] [address] PCP - General 04/03/24 documented as of this encounter
--- OUTSIDE RECORDS SUMMARY | 2025-08-17 08:20 | XMS_ITS | Encounter Summary ---
Author Organization Healthcare Address [address] [place] [address] Care Team Providers Care Photoresist Contact Printer Name Role Phone Efrain Angeles MD Primary Care Provider [phone] Encounter Details Date Type Department Care Team [...] any time in the past 12 m [facility], were you homeless or living in a senior living (including now)? No 06/01/2025 [facility] Utilities Answer Date Recorded In the [...] documented as of this encounter Care Teams Photoresist Contact Printer Relationship Specialty Start Date End Date Efrain Angeles MD [address] [place] [address] PCP - General 04/03/24 documented as of this encounter
--- OUTSIDE RECORDS SUMMARY | 2025-08-17 08:20 | XMS_ITS | Encounter Summary ---
Author Organization Healthcare Address [address] [place] [address] Care Team Providers Care Supervisor Major Appliance Assembly Name Role Phone Nate Mills MD Primary Care Provider [phone] Efrain Angeles MD Primary Care Provider [phone] Encounter Details Date Type Department Care Team (Late st Contact Info) Description 03/20/2021 Orders Only [facility] @ [facility] [address] [place] [phone] Ebony Albrecht MD [address] [address] Social History Tobacco Use Types [...] Carcinoembryonic Antigen 5.0(H) 0.0 - 4.7 ng/mL [facility] Comment: This test was performed using the Abdelrahman Awilda E801 electrochemiluminescent method. Values obtained from different assay methods cannot be used interchangeably. . 03/20/2021 9:07 AM EDT 03/20/2021 9:50 AM EDT us Ebony Albrecht MD LAB BLOOD ORDERABLES Final Re sult [facility] [address] [place] [address], documented in this encounter Visit Diagnoses Not on filedocumented in this encounter Care Teams Supervisor Major Appliance Assembly Relationship Specialty Start Date End Date Nate Mills MD [address] [facility] [address] [place] [address] PCP - General 09/23/20 04/02/24 Efrain Angeles MD [address] [facility] [address] [place] [address] PCP - General 04/03/24 documented as of this encounter
--- OUTSIDE RECORDS SUMMARY | 2025-08-17 08:20 | XMS_ITS | Encounter Summary ---
Author Organization Healthcare Address [address] [place] [address] Care Team Providers Care Keno Writer / Runner Name Role Phone Efrain Angeles MD Primary Care Provider [phone] Encounter Details Date Type Department Care Team ([facility] st Contact Info) Description 06/23/2025 Telephone [facility] [address] [place] [address] Steve Veloz MD [address] [address] Social History Tobacco Use Types Packs/Day Years [...] in a assisted (including now)? No 06/01/2025 [facility] Utilities Answer Date Recorded In [...] date is 08/23/25. To call back/ send Flip[employer]et if questions persist. * Telephone Encounter - Edilma Castro - 06/23/2025 2:16 PM EDT Patient Phone Message Reason for Call: Patient is calling to ask when her FMLA paperwork has an end date. She needs to report this to her insurance. Best contact number and optimal time of day to reach caller: [phone] Note: Please do not reply to this message. Follow-up communication and further actions as a result of this message need to be communicated with the patient directly, if the patient is not active onMyChart. If the patient is active on MyChart, they will receive notification of the communication/outcome via [employer]. documented in this encounter Plan of Treatment [...] documented as of this encounter Care Teams Keno Writer / Runner Relationship Specialty Start Date End Date Efrain Angeles MD [address] [place] [address] PCP - General 04/03/24 documented as of this encounter
[2025-08-17 09:14] LABS: Hematocrit 41.0 % (37.0-47.0); Hemoglobin 13.5 g/dL (12.2-16.2); Immature Granulocytes % 0.2 %; Mean Corpuscular HGB Conc 32.9 g/dL (31.8-35.4); Mean Corpuscular Hemoglobin 30.8 pg (27.0-31.2); Mean Corpuscular Volume 93.6 fl (81-99); Nucleated Red Blood Cells % 0 %; Platelet Count 269 K/mm3 (142-424); Red Blood Count 4.38 M/mm3 (4.20-5.40); Red Cell Distribution Width-SD 43.8 fL; White Blood Count 8.2 K/mm3 (4.8-10.8)
[2025-08-17 09:41] LABS: Alanine Aminotransferase 22 U/L (12-78); Albumin Level 4.2 g/dl (3.5-5.0); Albumin/Globulin Ratio 1.4 (1.1-1.8); Alkaline Phosphatase 112 U/L (38-126); Anion Gap 10.9 mEq/L (5-15); Aspartate Amino Transferase 36 U/L (14-36); Bilirubin,Total 0.6 mg/dl (0.2-1.3); Blood Urea Nitrogen 10 mg/dl (7-17); Carbon Dioxide 30 mmol/L (22.0-30.0); Chloride 100 mmol/L (98-107); Creatinine,Serum 1.00 mg/dl (0.52-1.04); Estimated Glomerular Filt Rate 54 ml/min (>60); GFR (African American) 65 ML/MIN (>60); Globulin 2.9 g/dL (1.3-3.2); Potassium 3.9 mmoL/L (3.5-5.1); Sodium 137 mmol/L (136-145); Total Protein,Serum 7.1 g/dl (6.3-8.2)
[2025-08-17 10:08] LABS: Calcium 9.7 mg/dl (8.4-10.2); Glucose 72 mg/dl (74-100)
== END 2025-08-17 23:59 | disposition home or self-care (01) ==
LOC: LAB 08:16
PROVIDERS: PCP Family Medicine; Visit Provider Internal Medicine Medical Oncology
DX: C23 Malignant neoplasm of gallbladder (principal)
CPT/HCPCS: 36415; 80053; 85025

== ENCOUNTER 2025-08-17 10:00 | Outpatient (RCR) | payer MEDICARE, SELFPAY ==
--- NOTE | 2025-08-17 10:51 | HMH.RHREAS ---
Rehab Reassessment Rehab OP Re-assessment Start: 07/26/25 17:54 Freq: Status: Active Protocol: Document 08/17/25 10:03 FRANCISCO (Rec: 08/17/25 10:51 PHORALANNAH [id number]) E-signed By Garrett Reich PT Dynamic Gait Index Test Protocol Gait Level Surface Normal Query Text: Instructions: Walk at your normal speed from here to the next paula (20'). Grading: Paula the lowest category that applies. Change in Gait Speed Normal Query Text: Instructions: Begin walking at your normal pace (for 5') , when I tell you go , walk as fast as you can (for 5'). When I tell you slow , walk as slowly as you can ( for 5'). Grading: Paula the lowest category that applies. Gait with Horizontal Mild Impairment Head Turns Query Text: Instructions: Begin walking at your normal pace. When I tell you to look right , keep walking straight, but turn you head to the right. Keep looking to the right unit I tell you look left , then keep walking straight and turn your head to the left. Keep your head to the left until I tell you look straight , then keep walking straight, but return you head to the center. Grading: Paula the lowest category that applies. Gait with Vertical Mild Impairment Head Turns Query Text: Instructions: Begin walking at your normal pace. When I tell you to look up , keep walking staight, but tip your head up. Keep looking up until I tell you to look down , then keep walking straight and tip your head down. Keep your head down until I tell you look straight , then keep walking straight, but return your head to the center. Grading: Paula the lowest category that applies. Gait and Pivot Turn Normal Query Text: Instructions: Begin walking at your normal pace. When I tell you turn and stop , turn as quickly as you can to face the opposite direction and stop. Grading: Paula the lowest category that applies. Step Over Obstacle Mild Impairment Query Text: Instructions: Begin walking at your normal speed. When you come to the shoebox, step over it, not around it and keep walking. Grading: Paula the lowest category that applies. Step Around Normal Obstacles Query Text: Instructions: Begin walking at normal speed. When you come to the first cone (about 6' away) , walk around the right side of it. When you come to the second cone (6' past first cone), walk around it to the left. Grading: Paula the lowest category that applies. Steps Moderate Impairment Query Text: Instructions: Walk up these stairs as you would at home. At the top, turn around and walk down . Grading: Paula the lowest category that applies. Scoring Dynamic Gait Index 19 Score Rehab Re-assessment Subjective Subjective Pt reports she feels she is moving better overall, but remains weaker than her baseline prior to her cancer diagnosis. She has this week off from her chemo treatment, but has chemo again next week. I think I can do more things around the house now than I could. She continues to have less endurance throughout the day than she did previously. Objective Objective Notes B LE MMT: HIP FLEX 3/5, HIP ABD 3+/5, HIP EXT 3+/5, KNEE EXT 4/5, KNEE FLEX 4+/5 TU sec FTSTS: 16 sec DGI: vs on IE. Assessment Progress Assessment Progressing as Expected Assessment Notes Pt has been present for 8 treatment sessions since her initial evaluation. She has improved her strength, ambulation and ability to transfer overall since her initial evaluation. She remains limited in her general endurance and all of her functional mobility due to her continued weakness. Skilled therapy services remain indicated to improve all function and endurance to activity in order to return pt to [facility]. Goals adjusted as needed this date. PT Patient Goals PT Short Term In 2 wks pt will complete these goals in order to aid Patient Goals improvement in function specifically with all ADLs: 1) Improve B LE MMT to 3+/5 at least throughout 2) Improve DGI score to 20 or better 3) Decrease TUG time to 9 sec or less 4) Decrease 5TSTS time to 15 or less PT Tobacco Shaker Patient In 4 wks pt will complete these goals in order to aid Goals improvement in function specifically with all ADLs: 1) Improve B LE MMT to 4+/5 at least throughout 2) Improve DGI score to 22 or better 3) Decrease TUG time to 8 sec or less 4) Decrease 5TSTS time to 13 or less 5) Ambulate > 15 min consecutively without c/o fatigue. Plan Plan Continued pt treatment may include any or all of the following interventions in order to improve functional outcomes and aid pt improvement in QOL: Frequency of Therapy 2 x/wk Duration of Therapy 4 wks Therapeutic Exercise Yes Including Home Exercise Program Manual Therapy Yes Techniques Neuromuscular Re- Yes education Therapeutic Yes Activities to Return to Previous Functional/Work Level Gait Training Yes ADL/Self Care Yes Education Eval/Re-Eval Yes Time and Billing Re-Eval Time 18 Re-Eval Billing 0 Units Charge for PT No reassessment? PHYSICIAN CERTIFICATION: I certify the specified therapy services for Alyssia Holly are required, authorized, and reviewed every 30 days.
== END 2025-08-17 23:59 | disposition home or self-care (01) ==
LOC: PT 10:00
PROVIDERS: PCP Family Medicine; Visit Provider Internal Medicine Medical Oncology
DX: R53.1 Weakness (principal)
CPT/HCPCS: 97110; 97112; 97530

== ENCOUNTER 2025-09-07 07:49 | Outpatient (CLI) | payer MEDICARE, SELFPAY ==
--- OUTSIDE RECORDS SUMMARY | 2024-11-23 11:15 | XMS_ITS ---
Author Organization [facility] Address [address] [facility] [address] [place] [phone] Care Team Providers Care Azure Architect Name Role Phone Kathryn Angeles Primary Care Provider Allergies Allergen (clinical drug ingredient) Drug/Non Drug Allergy documented on EMR Reaction Allergy Type Onset Date Status nickel HUGO (uncoded) Unknown Allergy Act tamar Polypropylene glycol POLYPROPYLENE GLYCO L (uncoded) Unknown Allergy Active Levaquin Myalgias Drug Allergy Active Retinoic Acid Unknown Drug Allergy Act tamar REASON FOR VISIT 2 month check up, Needs bone density screening Medications Medication SIG (Take, Route, Frequency, Duration) Notes Start Date End Date Status Rosuvastatin Calcium 10 MG TAKE 1 TABLET BY MOUTH ON SATURDAY, SATURDAY AND SATURDAY; Duration: 138 days Active Aspirin Low Dose 81 MG 1 tablet Orally O nce a day 12/26/2023 Active Align 4 MG 1 cap(s) orally once a day; Duration: 28 day(s) 12/24/2022 Active Losartan Potassium 50 MG Take 1/2 (one-h detention) tablet by mouth once daily; Duration: 90 days Active Triamterene-HCTZ 37.5-25 MG 1 tab(s) ora lly once a day; Duration: 90 days Active Dutasteride 0.5 MG 1 capsule Orally Onc e a day; Duration: 30 day(s) Active Potassium Chloride ER 10 MEQ Take 1 tablet by mouth twice daily for 30 days; Duration: 30 days Active CoQ-10 100 MG 1 cap(s) orally once a day; Duration: 30 day(s) 05/27/2020 Active Gemtesa 75 MG 1 tablet Orally Once a day; Duration: 30 day(s) Active Advair Diskus 100-50 MCG/ACT 1 puff Inhalation Twice a day 08/06/2024 Active Diclofenac Sodium ER 100 MG 1 tablet as needed Orally Once a day; Duration: 30 days Active Albuterol Sulfate HFA 108 (90 Base) MCG/ACT 1 puff as needed Inhalation four times a day as needed Active Vital Signs Weight 162.0 lbs 11/23/2024 Blood pressure systolic 124 mm Hg 11/24/19 25 Blood pressure diastolic 70 mm Hg 025 Heart Rate 69 /min 11/23/2024 Height 66 in 11/23/2024 BMI 26.14 kg/m2 11/23/2024 Encounters Encounter Location Date Provider Diagnosis [facility] [address] [facility] [address] [facility] [address] [place] [phone] 11/23/2024 Kathryn Angeles Hair loss L65.9 and Essential hypertension I10 Assessments Encounter Date Diagnosis (ICD Code) Assessment Notes Treatment Notes Treatment Clinical Notes Section Notes 11/23/2024 Hair loss (ICD-10 - L65.9) 11/23/2024 Essential hypertension (ICD-10 - I10) Plan Of Treatment Medication Medication Name Sig Start Date Stop Date Notes Minoxidil 2.5 MG 1 tablet Orally once a day Next Appt Details Follow Up: 4 Months, Reason: Provider Name:Kathryn Pennington er, 11/29/2025 10:45:00 AM, [address] [facility] [address] [facility], [address], [place], [phone], Progress Notes * SAVANNAH MamieB:[birth year] (75 yo F)Acc No.[id number]:11/23/2024 Progress Notes Patient: Alyssia ROCHE Provider: Kathryn Angeles M.D. :1950 A ge:74 Y S ex:Female Date:11/23/2024 Address:[facility] [address] , [id number] Subjective: * Chief Complaints: * 1 . 2 month check up. 2. Needs bone density screening. * HPI: C ardiology: The patient is here today for a check up on Hypertension. Pt states she is doing good. Her hair loss has decreased since D/C Celebrex. Pt states she would like to discuss her medications. Pt is not fasting. Denies : Chest Pain. D enies : Short of Breath. * ROS: D ERMATOLOGY: no R heather. n o H alexey. G ASTROENTEROLOGY: no N ausea. n o V omiting. n o D iarrhea.? U ROLOGY: no D ifficulty urinating. n o B lood in urine. * Medical History: H [place], Allergic Rhinitis, Hyperlipidemia, Hearing Aids 2008, Neg Arthritis Profile 04/2013, Adiposis Dolor, Abd/ Pelvis CT 09/17/2017 Negative, CT Chest 09/17/2017 , Migraine Headache, Shingrix 04/2020, COVID 19 Vaccine x2 09/2020, 10/2020, COVID 19 Booster, 06/14/2021. * Surgical History: r hinoplasty , cataract (OU) 05/2009, hemicolectomy, Colorectal carcinoma, Dr. Jason 12/18/10, kidney stone 02/2011, eye surgery 01/2012, left eye, lesion removed 06/2012, ptosis, bilateral eye lids 08/27/12, injection single tendon sheath, ligament, aponeurosis 11/2012, Total left hip replacement 09/02/2015, total right hp replacement 12/09/15, Spinal fusion L4-L5 06/01/16, colonoscopy 08/29/17, CEA=3.4 (ref 0.0-4.6) 03/17/19, Colonoscopy, Dr. Frazier 09/10/2019. * Hospitalization/Major Diagno stic Procedure: k idney stone 02/2011, [facility] ER-fall 06/06. * Family History: F ather: . M other: . 1 sister(s) . . * Social History: C URRENT TOBACCO USE S moking Status: Patient does NOT smoke, Second hand smoke exposure: No. H ome smoke detector use: yes. Marital Status: Single, spouse is . Occupation: Works at [employer]. Past smoking status: no, 2003, quit smoking. Occup. exposure: She saw the Beatles twice! She saw Laith Mayorga! Also Alissa Reyesplin and Curtis Briceno! Her favorite concert was [employer].. * Medications: T dionisio Dutasteride 0.5 MG Capsule 1 capsule Orally Once a day , Taking Minoxidil 2.5 MG Tablet 1 tablet Orally once a day , Taking Gemtesa 75 MG Tablet 1 tablet Orally Once a day , Taking CoQ-10 100 MG Capsule 1 cap(s) orally once a day , Taking Align 4 MG Capsule 1 cap(s) orally once a day , Taking Aspirin Low Dose 81 MG Tablet Delayed Release 1 tablet Orally Once a day , Taking Triamterene-HCTZ 37.5-25 MG Tablet 1 tab(s) orally once a day , Taking Losartan Potassium 50 MG Tablet Take 1/2 (one- half) tablet by mouth once daily , Taking Rosuvastatin Calcium 10 MG Tablet TAKE 1 TABLET BY MOUTH ON SATURDAY, SATURDAY AND SATURDAY , Taking Advair Diskus 100-50 MCG/ACT Aerosol Powder Breath Activated 1 puff Inhalation Twice a day , Taking Albuterol Sulfate HFA 108 (90 Base) MCG/ACT Aerosol Solution 1 puff as needed Inhalation four times a day as needed , Taking Diclofenac Sodium ER 100 MG Tablet Extended Release 24 Hour 1 tablet as needed Orally Once a day , Taking Potassium Chloride ER 10 MEQ Tablet Extended Release Take 1 tablet by mouth twice daily for 30 days , Medication List reviewed and reconciled with the patient * Allergies: L evaquin: Myalgias - Side Effects, HUGO: Allergy, POLYPROPYLENE GLYCOL: Allergy, Retinoic Acid: Allergy. Objective: * Vitals: W t:162.0, Temp:98.0, BP:124/70, HR:69, Nurse:TIM, Ht: 66, BMI:26.14. * Examination: G eneral Examination: General Appearance: N AD. H EENT: u nremarkable.?Oral cavity: n o lesions, mucosa moist and WNL, no erythema. N yong: i mproved ROM but some discomfort. . C hest: n ormal shape and expansion. H eart: R SR. L ungs: n o rhonchi, no wheezes heard, decreased breath sounds. N eurologic Exam: I ntact, gait normal. S kin: n ormal, no rash. P eripheral pulses: n ormal . E xtremities: t race l eg edema. Assessment: * Assessment: 1. H air loss - L65.9 (Primary) 2 . E ssential hypertension - I10 ? Plan: * Treatment: * Procedure Codes: G 2211 Complex e/m visit add on, 3074F SYST BP LT 130 MM HG, 3078F DIAST BP < 80 MM HG * Follow Up: 4 Months * Images: Billing Information: * Visit Code: 23268 Office Visit, Est Pt., Level 3. * Procedure Codes: G2211 Complex e/m visit add on. 3074F SYST BP LT 130 MM HG. 3078F DIAST BP < 80 MM HG. * Electronic signature of Kathryn Angeles MD on 09/07/2025 at 07:53 AM EST Sign off status: Pending * Provider: Kathryn Angeles M.D. Date: 0 11/23/2024 Generated for Printi ng/Shering/eTransmitting on: 1 11/08/2024 07:53 AM EST History and Physical Notes * HPI (History of Present Illness) Category Sub-Category Detail Notes Category Not es Cardiology Short of Breath Chest Pain Examination Category Sub-Category Detail Notes Category Not es General Examination HEENT: unremarkable Heart: RSR Lungs: no rhonchi, no wheez es heard, decreased breath sounds Extremities: trace leg edema General Appearance: NAD Skin: normal, no rash Neurologic Exam: Intact, gait normal Neck: improved ROM but heidy e discomfort. Oral cavity: no lesions, mucosa m oist and WNL, no erythema Peripheral pulses: normal Chest: normal shape and exp ansion
--- OUTSIDE RECORDS SUMMARY | 2025-02-01 10:00 | XMS_ITS ---
Author Organization [facility] Address [address] [facility] [address] [place] [id number] Care Team Providers Care Compliance Nurse Name Role Phone Kathryn Angeles Primary Care Provider [phone] Allergies Allergen (clinical drug ingredient) Drug/Non Drug Allergy documented on EMR Reaction Allergy Type Onset Date Status nickel HUGO (uncoded) Unknown Allergy Act tamar Polypropylene glycol POLYPROPYLENE GLYCO L (uncoded) Unknown Allergy Active Levaquin Myalgias Drug Allergy Active Retinoic Acid Unknown Drug Allergy Act tamar REASON FOR VISIT 3 weeks Medications Medication SIG (Take, Route, Frequency, Duration) Notes Start Date End Date Status Diclofenac Sodium ER 100 MG TAKE 1 TABLE T BY MOUTH NEEDED ONCE DAILY; Duration: 90 Active Triamterene-HCTZ 37.5-25 MG Take 1 table t by mouth once daily; Duration: 90 Active Albuterol Sulfate HFA 108 (90 Base) MCG/ACT 1 puff as needed Inhalation four times a day as needed Active Potassium Chloride ER 10 MEQ Take 1 tablet by mouth twice daily; Duration: 30 Active Konsyl Daily Fiber 100 % 1 packet with 8 ounces of liquid as needed Orally Once a day; Duration: 30 day(s) 01/14/2025 Active Advair Diskus 100-50 MCG/ACT 1 puff Inhalation Twice a day 08/06/2024 Active Rosuvastatin Calcium 10 MG TAKE 1 TABLET BY MOUTH ON SATURDAY, SATURDAY AND SATURDAY; Duration: 138 days Active Losartan Potassium 50 MG Take 1/2 (one-h jail) tablet by mouth once daily; Duration: 90 days Active Aspirin Low Dose 81 MG 1 tablet Orally O nce a day 12/26/2023 Active Align 4 MG 1 cap(s) orally once a day; Duration: 28 day(s) 12/24/2022 Active CoQ-10 100 MG 1 cap(s) orally once a day; Duration: 30 day(s) 05/27/2020 Active Gemtesa 75 MG 1 tablet Orally Once a day; Duration: 30 day(s) Active Dutasteride 0.5 MG 1 capsule Orally Onc e a day; Duration: 30 day(s) Active Vital Signs Weight 156.2 lbs 02/01/2025 Blood pressure systolic 130 mm Hg 02/02/20 25 Blood pressure diastolic 62 mm Hg 025 Heart Rate 66 /min 02/01/2025 Height 66 in 02/01/2025 BMI 25.21 kg/m2 02/01/2025 Encounters Encounter Location Date Provider Diagnosis [facility] [address] [facility] [address] [facility] [address] [place] [id number] 02/01/2025 Kathryn Angeles Symptomatic cholelithiasis K80.20 Assessments Encounter Date Diagnosis (ICD Code) Assessment Notes Treatment Notes Treatment Clinical Notes Section Notes 02/01/2025 Symptomatic cholelithiasis (ICD-10 - K80.20) CONT RX. AWAIT CONSULTATION Plan Of Treatment Treatment Notes Assessment Notes Symptomatic cholelithiasis CONT RX. AWAI T CONSULTATION Next Appt Details Follow Up: 2 Months, Reason: Provider Name:Kathryn Pennington er, 11/29/2025 10:45:00 AM, [address] [facility] [address] [facility], [address], [place], [id number], Progress Notes * Karen NUÑEZBethanyB:[birth year] (75 yo F)Acc No.[id number]:02/01/2025 Progress Notes Patient: Alyssia ROCHE Provider: Kathryn Angeles M.D. :1950 A ge:74 Y S ex:Female Date:02/01/2025 Address:[address] [place] [address], [id number] Subjective: * Chief Complaints: * 1 . 3 weeks. * HPI: G astroenterology: The patient is here for a follow up on Dyspepsia and abdominal ultrasound results. See pt docs . SHE IS SCHEDULED TO SEE DR. BERNAL THIS SATURDAY. Pt states she is doing about the same. Still having a lot of growling in her stomach. * ROS: D ERMATOLOGY: no R heather. [...] 08/29/17, CEA=3.4 (ref 0.0-4.6) 03/17/19, Colonoscopy, Dr. Bernal 09/10/2019. * Hospitalization/Major Diagno stic Procedure: k idney stone 02/2011, [facility] ER-fall 06/06. * Family History: F ather: . M other: . 1 sister(s) . . * Social History: C URRENT TOBACCO USE S moking Status: Patient does NOT smoke, Second hand smoke exposure: No. H ome smoke detector use: yes. Marital Status: Single, spouse is . Occupation: Works at [employer]. Past smoking status: no, 2003, quit smoking. Occup. exposure: She saw the Beatles twice! She saw Laith Mukesh! Also Alissa Robert and Curtis Briceno! Her favorite concert was [employer].. * Medications: T dionisio Dutasteride 0.5 MG Capsule 1 capsule Orally Once a day , Taking Gemtesa 75 MG Tablet 1 tablet Orally Once a day , Taking CoQ-10 100 MG Capsule 1 cap(s) orally once a day , Taking Align 4 MG Capsule 1 cap(s) orally once a day , Taking Aspirin Low Dose 81 MG Tablet Delayed Release 1 tablet Orally Once a day , Taking Losartan Potassium 50 MG Tablet Take 1/2 (one-half) tablet by mouth once daily , Taking Rosuvastatin Calcium 10 MG Tablet TAKE 1 TABLET BY MOUTH ON SATURDAY, SATURDAY AND SATURDAY , Taking Advair Diskus 100-50 MCG/ACT Aerosol Powder Breath Activated 1 puff Inhalation Twice a day , Taking Albuterol Sulfate HFA 108 (90 Base) MCG/ACT Aerosol Solution 1 puff as needed Inhalation four times a day as needed , Taking Triamterene-HCTZ 37.5-25 MG Tablet Take 1 tablet by mouth once daily , Taking Diclofenac Sodium ER 100 MG Tablet Extended Release 24 Hour TAKE 1 TABLET BY MOUTH NEEDED ONCE DAILY , Taking Konsyl Daily Fiber 100 % Packet 1 packet with 8 ounces of liquid as needed Orally Once a day , Taking Potassium Chloride ER 10 MEQ Tablet Extended Release Take 1 tablet by mouth twice daily * Allergies: L evaquin: Myalgias - Side Effects, HUGO: Allergy, POLYPROPYLENE GLYCOL: Allergy, Retinoic Acid: Allergy. Objective: * Vitals: W t: 156.2, Temp: 97.8, BP: 130/62, HR: 66, Nurse: TIM, Ht: 66, BMI:25.21. * Examination: G eneral Examination: General Appearance: [...] l eg edema. Assessment: * Assessment: 1. S ymptomatic cholelithiasis - K80.20 (Primary) Plan: * Treatment: * Procedure Codes: G 2211 Complex e/m visit add on * Follow Up: 2 Months * Images: Billing Information: * Visit Code: 43201 Office Visit, Est Pt., Level 3. * Procedure Codes: G2211 Complex e/m visit add on. * Electronic signature of Kathryn Angeles MD on 09/07/2025 at 07:55 AM EST Sign off status: Pending * Provider: Kathryn Angeles M.D. Date: 0 02/01/2025 Generated for Kasey ovalles/Ghanshyam/eTransmitting on: 1 11/08/2024 07:55 AM EST History and Physical Notes * Examination Category Sub-Category Detail Notes Category Not [...]
--- OUTSIDE RECORDS SUMMARY | 2025-03-29 11:15 | XMS_ITS ---
Author Organization [facility] Address [address] [place] [id number] Care Team Providers Care Cloth Finishing Range Operator Chief Name Role Phone Kathryn Angeles Primary Care Provider [phone] Allergies Allergen (clinical drug ingredient) Drug/Non Drug Allergy documented on EMR Reaction Allergy Type Onset Date Status nickel HUGO (uncoded) Unknown Allergy Act tamar Polypropylene glycol POLYPROPYLENE GLYCO L (uncoded) Unknown Allergy Active Levaquin Myalgias Drug Allergy Active Retinoic Acid Unknown Drug Allergy Act tamar Results Component Value Reference Range Notes CBC Venipuncture (in house) Reviewed date:03/30/2025 11:37:40 AM Interpretation: Performing Lab: Notes/Report: wbc 15.3 3.5 - 10 lymph 12.9% 15 - 50 mid 4.3% 2 - 15 gran 82.8% 35 - 80 rbc 4.01 3.5 - 5.5 hgb 12.4 11.5 - 16.5 hct 36.4 35 - 55 mcv 90.6 75 - 100 mch 31.0 25 - 35 mchc 34.2 31 - 38 platlet 361 100 - 400 P-Comprehensive Metabolic Pa macario (CMP) Reviewed date:04/07/2025 12:56:03 PM Interpretation:bun 30, Cr 1.32, gfr 42, alk phos 203 Performing Lab: Notes/Report: Test performed by [facility] [address] [place] [address] , [address], [place] [address] Rafi Forbes MD, Manager Learning CLIA: [id number] Sodium 139 135-145 mmol/L Potassium 5.3 3.5-5.3 mmol/L Chloride 102 97-108 mmol/L CO2 24 20-32 mmol/L Glucose 94 65-99 mg/dL BUN 30 8-23 mg/dL Creatinine 1.32 0.50-1.00 mg/dL Calcium 9.4 8.6-10.4 mg/dL eGFR by Creatinine 42 >59 mL/min/1.73m2 Protein 6.4 6.0-8.3 g/dL Albumin 3.8 3.5-5.3 g/dL Alkaline Phosphatase 203 35-121 IU/L ALT (SGPT) 32 <5-47 IU/L AST (SGOT) 28 <5-40 IU/L Bilirubin, Total 0.4 <0.2-1.2 mg/dL A/G Ratio 1.5 1.1-2.5 REASON FOR VISIT 4 mo ck up, Needs mammogram & bone density screening Medications Medication SIG (Take, Route, Frequency, Duration) Notes Start Date End Date Status Losartan Potassium 50 MG Take 1/2 (one-h rosalee) tablet by mouth once daily; Duration: 90 Active Triamterene-HCTZ 37.5-25 MG 1 tablet in the morning Orally Once a day; Duration: 90 days Active Potassium Chloride ER 10 MEQ 1 tablet with food Orally Twice a day; Duration: 90 days Active Diclofenac Sodium ER 100 MG TAKE 1 BY MO UTH ONCE DAILY NEEDED FOR 90 DAYS; Duration: 90 Active Albuterol Sulfate HFA 108 (90 Base) MCG/ACT 1 puff as needed Inhalation four times a day as needed Active Align 4 MG 1 cap(s) orally once a day; Duration: 28 day(s) 12/24/2022 Active Aspirin Low Dose 81 MG 1 tablet Orally O nce a day 12/26/2023 Active Rosuvastatin Calcium 10 MG TAKE 1 TABLET BY MOUTH ON SATURDAY, SATURDAY AND SATURDAY; Duration: 138 days Active CoQ-10 100 MG 1 cap(s) orally once a day; Duration: 30 day(s) 05/27/2020 Active Gemtesa 75 MG 1 tablet Orally Once a day; Duration: 30 day(s) Active Problems Problem Type SNOMED Code ICD Code Onset Dates Problem Status W/U Status Risk Notes Problem History of cholecystectomy (313884294) Status post cholecystectomy (Z90.49) Active confirmed Vital Signs Weight 149.2 lbs 03/29/2025 Blood pressure systolic 102 mm Hg 03/29/20 25 Blood pressure diastolic 62 mm Hg 025 Heart Rate 80 /min 03/29/2025 Height 66 in 03/29/2025 BMI 24.08 kg/m2 03/29/2025 Encounters Encounter Location Date Provider Diagnosis [facility] [address] [facility] [address] [facility] [address] [place] [id number] 03/29/2025 Kathryn Angeles Essential hypertensi on I10 ; Status post cholecystectomy Z90.49 ; Other chronic pain G89.29 ; Centrilobular emphysema J43.2 ; History of colorectal cancer Z85.038 and BMI 24.0-24.9, adult Z68.24 Assessments Encounter Date Diagnosis (ICD Code) Assessment Notes Treatment Notes Treatment Clinical Notes Section Notes 03/29/2025 Essential hypertension (ICD-10 - I10) 03/29/2025 Status post cholecystectomy (ICD-10 - Z90.49) 03/29/2025 Other chronic pain (ICD-10 - G89.29) 03/29/2025 Centrilobular emphysema (ICD-10 - J43.2) 03/29/2025 History of colorectal cancer (ICD-10 - Z85.038) 03/29/2025 BMI 24.0-24.9, adult (ICD-10 - Z68.24) Plan Of Treatment Next Appt Details Follow Up: 2 Months, Reason: Provider Name:Kathryn Pennington er, 11/29/2025 10:45:00 AM, [address] [facility] [address] [facility], [address], [place], [id number], Progress Notes * Mamie NUÑEZB:[birth year] (75 yo F)Acc No.[id number]:03/29/2025 Progress Notes Patient: Alyssia ROCHE Provider: Kathryn Angeles M.D. :1950 A ge:74 Y S ex:Female Date:03/29/2025 Address:[facility] [address] , [id number] Subjective: * Chief Complaints: * 1 . 4 mo ck up. 2. Needs mammogram & bone density screening. * HPI: C ardiology: The patient is here for a check up on Hypertension and Hyperlipidemia. Pt states she had a cholecystectomy on with Dr Frazier. Pt states she is still having some soreness with movement. Pt is not fasting. Denies : Chest Pain. D enies : Short of Breath. D enies : Dizziness. D enies : Palpitations. * ROS: D ERMATOLOGY: no R heather. [...] Diagno stic Procedure: k idney stone 02/2011, [facility] ER-fall 06/06. * Family History: F ather: . M other: . 1 sister(s) . . * Social History: C URRENT TOBACCO USE S moking Status: Patient does NOT smoke, Second hand smoke exposure: No. H ome smoke detector use: yes. Marital Status: Single, spouse is . Occupation: Works at [employer]. Past smoking status: no, 2004, quit smoking. Occup. exposure: She saw the Beatles twice! She saw Laith Mayorga! Also Alissa Robert and Curtis Briceno! Her favorite concert was [employer].. * Medications: T aking Gemtesa 75 MG Tablet 1 tablet Orally Once a day , Taking CoQ-10 100 MG Capsule 1 cap(s) orally once a day , Taking Align 4 MG Capsule 1 cap(s) orally once a day , Taking Aspirin Low Dose 81 MG Tablet Delayed Release 1 tablet Orally Once a day , Taking Rosuvastatin Calcium 10 MG Tablet TAKE 1 TABLET BY MOUTH ON SATURDAY, SATURDAY AND SATURDAY , Taking Albuterol Sulfate HFA 108 (90 Base) MCG/ACT Aerosol Solution 1 puff as needed Inhalation four times a day as needed , Taking Losartan Potassium 50 MG Tablet Take 1/2 (one-half) tablet by mouth once daily , Taking Triamterene- HCTZ 37.5-25 MG Tablet 1 tablet in the morning Orally Once a day , Taking Potassium Chloride ER 10 MEQ Tablet Extended Release 1 tablet with food Orally Twice a day , Taking Diclofenac Sodium ER 100 MG Tablet Extended Release 24 Hour TAKE 1 BY MOUTH ONCE DAILY NEEDED FOR 90 DAYS , Discontinued Dutasteride 0.5 MG Capsule 1 capsule Orally Once a day , Discontinued Advair Diskus 100-50 MCG/ACT Aerosol Powder Breath Activated 1 puff Inhalation Twice a day , Discontinued Konsyl Daily Fiber 100 % Packet 1 packet with 8 ounces of liquid as needed Orally Once a day , Medication List reviewed and reconciled with the patient * Allergies: L evaquin: Myalgias - Side Effects, HUGO: Allergy, POLYPROPYLENE GLYCOL: Allergy, Retinoic Acid: Allergy. Objective: * Vitals: W t: 149.2, Temp: 97.8, BP: 102/62, HR: 80, Nurse: TIM, Ht: 66, BMI:24.08. * Examination: G eneral Examination: General Appearance: [...] eg edema. Assessment: * Assessment: 1. S tatus post cholecystectomy - Z90.49 (Primary) 2 . E ssential hypertension - I10 3 . O ther chronic pain - G89.29 4 . C entrilobular emphysema - J43.2 5 . H istory of colorectal cancer - Z85.038 6 . B LA 24.0-24.9, adult - Z68.24 Plan: * Treatment: Value Reference Range A /G Ratio 1.5 1.1-2.5 - * A lbumin 3.8 3.5-5.3 - g/dL * A lkaline Phosphatase 203 H 35-121 - IU/L * A LT (SGPT) 32 <5-47 - IU/L * A ST (SGOT) 28 <5-40 - IU/L * B ilirubin, Total 0.4 <0.2-1.2 - mg/dL * B UN 30 H 8-23 - mg/dL * C alcium 9.4 8.6-10.4 - mg/dL * C hloride 102 97-108 - mmol/L * C O2 24 20-32 - mmol/L * C reatinine 1.32 H 0.50-1.00 - mg/dL * G lucose 94 65-99 - mg/dL * P otassium 5.3 3.5-5.3 - mmol/L * S odium 139 135-145 - mmol/L * P rotein 6.4 6.0-8.3 - g/dL * e GFR by Creatinine 42 L >59 - mL/min/1.73m2 * Maribell Vidal 04/07/20 25 12:55:50 PM EDT >pt is currently admitted to [facility] ?LAB: CBC Venipuncture (in house) (Collection Date & Time - 03/29/2025)* Value Reference Range w bc 15.3 3.5 - 10 * l ymph 12.9% 15 - 50 * m id 4.3% 2 - 15 * g ran 82.8% 35 - 80 * r bc 4.01 3.5 - 5.5 * h gb 12.4 11.5 - 16.5 * h ct 36.4 35 - 55 * m cv 90.6 75 - 100 * m ch 31.0 25 - 35 * m chc 34.2 31 - 38 * p latlet 361 100 - 400 * Angella Velasquez 03/29/2025 05: 52:52 PM EDT > Provider reviewed results while patient in office. * Procedure Codes: G 2211 Complex e/[place], [address] CBC WITH AUTO DIFF, 60437 VENIPUNCT, ROUTINE*, 1036F TOBACCO NON-USER, G8950 PREHTN/HTN BP DOC INDCD F/U DOC, G8752 MOST RECENT SYSTOLIC BP < 140MM HG, G8754 MOST RECENT DIASTOLIC BP < 90MM HG, G8420 BMI<30 AND >=22 CALC & DOCU * Follow Up: 2 Months * Images: Billing Information: * Visit Code: 12621 Office Visit, Est Pt., Level 4. * Procedure Codes: G2211 Complex e/[place]. [address] CBC WITH AUTO DIFF. 49151 VENIPUNCT, ROUTINE*. 1036F TOBACCO NON-USER. G8950 PREHTN/HTN BP DOC INDCD F/U DOC. G8752 MOST RECENT SYSTOLIC BP < 140MM HG. G8754 MOST RECENT DIASTOLIC BP < 90MM HG. G8420 BMI<30 AND >=22 CALC & DOCU. * Electronic signature of Kathryn Angeles MD on 09/07/2025 at 07:53 AM EST Sign off status: Pending * Provider: Kathryn Angeles M.D. Date: 0 03/29/2025 Generated for Kasey ovalles/Ghanshyam/Makaylasmitting on: 1 11/08/2024 07:53 AM EST History and Physical Notes * HPI (History of Present Illness) Category Sub-Category Detail Notes Category Not es Cardiology Short of Breath Chest Pain Palpitations Dizziness Examination Category Sub-Category Detail Notes Category Not [...]
--- OUTSIDE RECORDS SUMMARY | 2025-04-12 05:30 | XMS_ITS ---
Author Organization [facility] Address [address] [place] [id number] Care Team Providers Care Director Call Name Role Phone Kathryn Angeles Primary Care Provider Juani Saleem Unavailable [phone] Allergies Allergen (clinical drug ingredient) Drug/Non Drug Allergy documented on EMR Reaction Allergy Type Onset Date Status nickel HUGO (uncoded) Unknown Allergy Act tamar Polypropylene glycol POLYPROPYLENE GLYCO L (uncoded) Unknown Allergy Active Levaquin Myalgias Drug Allergy Active Retinoic Acid Unknown Drug Allergy Act tamar Results Component Value Reference Range Notes CBC Venipuncture (in house) Reviewed date:04/12/2025 03:47:45 PM Interpretation: Performing Lab: Notes/Report: wbc 15.0 3.5 - 10 lymph 17.3 15 - 50 mid 6.0 2 - 15 gran 76.7 35 - 80 rbc 3.95 3.5 - 5.5 hgb 12.1 11.5 - 16.5 hct 35.9 35 - 55 mcv 90.8 75 - 100 mch 30.6 25 - 35 mchc 33.6 31 - 38 platlet 680 100 - 400 P-Basic Metabolic Panel (BMP ) Reviewed date:04/13/2025 08:26:40 AM Interpretation: Performing Lab: Notes/Report: Test performed by [facility] [address] [place] [address] , [address], [place] [address] Rafi Forbes MD, Manager Agricultural CLIA: [id number] Sodium 141 135-145 mmol/L Potassium 4.9 3.5-5.3 mmol/L Chloride 105 97-108 mmol/L CO2 24 20-32 mmol/L Glucose 105 65-99 mg/dL BUN 16 8-23 mg/dL Creatinine 0.71 0.50-1.00 mg/dL Calcium 9.9 8.6-10.4 mg/dL eGFR by Creatinine 88 >59 mL/min/1.73m2 REASON FOR VISIT [facility] f/u Medications Medication SIG (Take, Route, Frequency, Duration) Notes Start Date End Date Status Aspirin Low Dose 81 MG 1 tablet Orally O nce a day 12/26/2023 Active Albuterol Sulfate HFA 108 (90 Base) MCG/ACT 1 puff as needed Inhalation four times a day as needed Active Gemtesa 75 MG 1 tablet Orally Once a day Active Potassium Chloride ER 10 MEQ 1 tablet with food Orally Twice a day Active Align 4 MG 1 cap(s) orally once a day; Duration: 28 day(s) 12/24/2022 Active Triamterene-HCTZ 37.5-25 MG 1 tablet in the morning Orally Once a day Active Amoxicillin-Pot Clavulanate 500-125 MG 1 tablet Orally every 8 hours Active Pantoprazole Sodium 20 MG 1 tablet 1/2 t o 1 hour before morning meal Orally Once a day Active Losartan Potassium 50 MG Take 1/2 (one-h rosalee) tablet by mouth once daily Active Rosuvastatin Calcium 10 MG TAKE 1 TABLET BY MOUTH ON SATURDAY, SATURDAY AND SATURDAY Active Problems Problem Type SNOMED Code ICD Code Onset Dates Problem Status W/U Status Risk Notes Problem Leukocytosis (913085659) Leukocytosis (D72.829) Active confirmed Problem Pulmonary atelectasis (22680932) Pulmonary atelectasis (J98.11) Active confirmed Vital Signs Weight 143.4 lbs 04/12/2025 Blood pressure systolic 110 mm Hg 04/12/20 25 Blood pressure diastolic 70 mm Hg 025 Heart Rate 91 /min 04/12/2025 Height 66 in 04/12/2025 BMI 23.14 kg/m2 04/12/2025 Encounters Encounter Location Date Provider Diagnosis [facility] [address] [facility] [address] [place] [id number] 04/12/2025 Juani Saleem Chronic hypokalemia E87.6 ; Leukocytosis D72.829 ; Acute gastric ulcer with both hemorrhage and perforation K25.2 ; Essential hypertension I10 ; Mixed hyperlipidemia E78.2 ; 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 Mackay for staple removal. She is to continue doing what she is doing. No lifting over 10lbs. Continue diet she is on with small meals throughout the day. Checking labs today to make sure Potassium is OK and CBC. Would like to see her in 3 weeks to check her WBCs. 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) 04/12/2025 History of colorectal cancer (ICD-10 - Z85.038) 04/12/2025 Other chronic pain (ICD-10 - G89.29) 04/12/2025 Mixed stress and urge urinary incontinence (ICD-10 - N39.46) 04/12/2025 Postop check (ICD-10 - Z09) continue with ambulation with care ; continue with eating pattern with bland diet in small amounts several times daily; has surgical FU this week; will have rest of reinier removed 04/12/2025 Pulmonary atelectasis (ICD-10 - J98.11) complete ABX 04/12/2025 BMI 23.0-23.9, adult (ICD-10 - Z68.23) 04/12/2025 Other Discharge summary with available lab/diagnostic imaging results obtained and reviewed. Discharge medication list reconciled. Appropriate counseling provided. Moderate Complexity Plan Of Treatment Medication Medication Name Sig Start Date Stop Date Notes Aspirin Low Dose 81 MG 1 tablet Orally Once a day 12/26/19 24 CoQ-10 100 MG 1 cap(s) orally once a day 05/27/2020 Gemtesa 75 MG 1 tablet Orally Once a day Potassium Chloride ER 10 MEQ 1 tablet wi th food Orally Twice a day Triamterene-HCTZ 37.5-25 MG 1 tablet in the morning Orally Once a day Amoxicillin-Pot Clavulanate 500-125 MG 1 tablet Orally every 8 hours Pantoprazole Sodium 20 MG 1 tablet 1/2 t o 1 hour before morning meal Orally Once a day Losartan Potassium 50 MG Take 1/2 (one-h intermediate) tablet by mouth once daily Rosuvastatin Calcium 10 MG TAKE 1 TABLET BY MOUTH ON SATURDAY, SATURDAY AND SATURDAY Treatment Notes Assessment Notes Chronic hypokalemia She will see Dr. Az perry for staple removal. She is to continue doing what she is doing. No lifting over 10lbs. Continue diet she is on with small meals throughout the day. Checking labs today to make sure Potassium is OK and CBC. Would like to see her in 3 weeks to check her WBCs. Postop check continue with ambula tion with care ; continue with eating pattern with bland diet in small amounts several times daily; has surgical FU this week; will have rest of reinier removed Pulmonary atelectasis complete ABX Other Discharge summary wi th available lab/diagnostic imaging results obtained and reviewed. Discharge medication list reconciled. Appropriate counseling provided. Moderate Complexity Next Appt Details Follow Up: 3 Weeks, Reason: Provider Name:Kathryn Pennington er, 11/29/2025 10:45:00 AM, [address] [facility], [address], [place], [id number], Progress Notes * Mamie HOLLYB:[birth year] (75 yo F)Acc No.[id number]:04/12/2025 Progress Notes Patient: Alyssia ROCHE Provider: YULI Delacruz :1950 A ge:74 Y S ex:Female Date:04/12/2025 Address:[address], [id number] Pcp:Kathryn Angeles Subjective: * Chief Complaints: * 1 . [facility] f/u. * HPI: H PI: [facility] admission notes from 04/01/2025 as follows: HPI: Ms. Holly is a 74-year-old female presents ER with complaint of shortness of breath. Patient has a past medical history of hypertension, hyperlipidemia, diastolic dysfunction, colon cancers s/p colectomy. Patient had a cholecystectomy 03/25/2025. Patient states about 1130 this morning she had abdominal pain across the middle of her abdomen. She states it felt like a samurai sword was trying to cut her in half . Patient is status post ex lap today for perforated gastric ulcer. Patient denies fever/chills, cough, congestion, runny nose, dyspnea, chest pain, nausea, vomiting, diarrhea, constipation, headache, lightheadedness, dizziness, or syncope. Hospital Course: With Evaluation in the emergency room CT of the abdomin/pelvis revealed a perforated gastric ulcer with significant bowel wall thickening of the gastric atrium with at least 2 large ulcers. She was taken to surgery for exploratory lap with repair of the prepyloric gastric ulcer Utilizing a Josh patch/ Dr. Patino. She tolerated the surgery well. Patient's pain was controlled with Tylenol. She was able to ambulate on postoperative day #1; Initially she continue with an NG tube and Zosyn with normal saline at 75 an hour. She had hypokalemia and required several doses of IV and PO potassium. She did have an elevated troponin which was felt due to demand ischemia. She was seen by cardiology and noted to have prior outpatient cardiac workup from a service now developer in [place] on a yearly basis. She was noted not to be a candidate for DAPT therapy in the setting of the perforated gastric ulcer. Patient continued with an elevated white blood cell count. She had normal postoperative abdominal discomfort. Her hemoglobin remained stable. Gastrografin study was negative. NG tube was removed and she tolerated clear and then full liquid diets. And on 04/08 due to elevated white blood cell she had a chest x-ray which suggested right lower lobe pneumonia versus atelectasis; she did not have any respiratory symptoms. On this date she was felt stable to be discharged home; she was to continue with antibiotics of Augmentin and her PPI plus her regular home medicines. Please see reconciliation list. She was to follow-up with Dr. Patino 04/15/2025 and with [facility] on 04/12/2025. Patient is here today for a Transition of Care Visit. Discharge [facility] the following [facility] for [facility]for[facility] Gastric Ulcer amd NSTEMI ,Discharge date: 04/08/2025 ,Date of phone contact following discharge: 04/09/2025; pt feels she is doing well. [facility] documentation reviewed; see ROS. * ROS: D ERMATOLOGY: no R heather. n o H alexey. G ASTROENTEROLOGY: Positive for e ating small amounts q few hours; being careful with foods- soups and plain. n o N ausea. n o V omiting. n o D iarrhea.?no C onstipation. n o B lood in stool. M USCULOSKELETAL: Positive for a rthritis is the main issues; she did drive herself here and walked from the car to the office without cane or walker. J oint pain y es,?back. U ROLOGY: no D ifficulty urinating. n [...] CEA=3.4 (ref 0.0-4.6) 03/17/19, Colonoscopy, Dr. Frazier 09/10/2019, Lap shannan/Dr. Frazier 03/25/2025, perforated prepyloric gastric ulcer with repair using a Josh patch/ Dr. Patino 04/01/2025. * Hospitalization/Major Diagno stic Procedure: hyacinth mcallister 02/2011, [facility] ER-fall 06/06, [facility] with perforated ulcer with repair with Josh patch/Dr. Patino 04/01-04/08/2025. * Family History: F ather: . M other: . 1 sister(s) . . * Social History: C URRENT TOBACCO USE S moking Status: Patient does NOT smoke, Second hand smoke exposure: No. H ome smoke detector use: yes. Marital Status: Single, spouse is . Occupation: Works at [employer]. Past smoking status: no, 2003, quit smoking. Occup. exposure: She saw the [employer]ictor[employer] twice! She saw Laith Mayorga! Also Alissa Jones and Curtis Briceno! Her favorite concert was [employer].. * Medications: T aking Amoxicillin-Pot Clavulanate 500-125 MG Tablet 1 tablet Orally every 8 hours , Taking Pantoprazole Sodium 20 MG Tablet Delayed Release 1 tablet 1/2 to 1 hour before morning meal Orally Once a day , Taking Gemtesa [...] tablet by mouth once daily , Taking Triamterene-HCTZ 37.5-25 MG Tablet 1 tablet in the morning Orally Once a day , Taking Potassium Chloride ER 10 MEQ Tablet Extended Release 1 tablet with food Orally Twice a day , Discontinued Diclofenac Sodium ER 100 MG Tablet Extended Release 24 Hour TAKE 1 BY MOUTH ONCE DAILY NEEDED FOR 90 DAYS , Medication List reviewed and reconciled with the patient * Allergies: L evaquin: Myalgias - Side Effects, HUGO: Allergy, POLYPROPYLENE GLYCOL: Allergy, Retinoic Acid: Allergy. Objective: * Vitals: W t: 143.4, Temp: 97.7, BP: 110/70, HR: 91, Nurse: pe, Ht: 66, BMI:23.14. * Examination: G eneral Examination: General Appearance: N AD, pleasant, alert. H eart: R RR. L ungs: n ormal, clear to auscultation. A bdomen: S taples intact- light redness around staple insertion sites. not swelling or warm to touch. Soft, tender to touch, normal bowel sounds, no hepatosplenomegaly, nondistended.. S kin: S taples and steri-strips intact..?Extremities: t race leg edema. L ABS: H labs 04/07/25 06:00: WBC 15.3 H, RBC 3.28 L, Hgb 9.8 L, Hct 29.8 L, MCV 90.9, MCH 29.9, MCHC 32.9, RDW 13.2, Plt Count 434 H, MPV 11.1 H, Neut % (Auto) 67.0, Lymph % (Auto) 17.5, [place] % (Auto) 6.3, Eos % (Auto) 6.1, Baso % (Auto) 0.8, Neut # (Auto) 10.2 H, Lymph # (Auto) 2.7, [place] # (Auto) 1.0, Eos # (Auto) 0.9 H, Baso # (Auto) 0.1, Total Counted 100, Neutrophils % (Manual) 72, Lymphocytes % (Manual) 16, Monocytes % (Manual) 3, Eosinophils % (Manual) 6 H, Basophils % (Manual) 1.0, Myelocytes % 2 H, Platelet Estimate Slight increase, RBC Morphology Normal, Sodium 140, Potassium 3.6 D, Chloride 107, Carbon Dioxide 23, Anion Gap 13.6, BUN 3 L D, Creatinine 0.70, Estimated Creat Clear 57, Estimated GFR 82, Est GFR ( Amer) 99, Glucose 105 H, Calcium 8.4 04/07/25 06:24: POC Glucose 97 04/08/25 05:34: WBC 16.9 H, RBC 3.44 L, Hgb 10.5 L, Hct 31.6 L, MCV 91.9, MCH 30.5, MCHC 33.2, RDW 13.2, Plt Count 450 H, MPV 11.0 H, Neut % (Auto) 67.7, Lymph % (Auto) 17.7, [place] % (Auto) 5.6, Eos % (Auto) 6.6, Baso % (Auto) 0.7, Neut # (Auto) 11.4 H, Lymph # (Auto) 3.0, [place] # (Auto) 0.9, Eos # (Auto) 1.1 H, Baso # (Auto) 0.1, POC Glucose 89. Assessment: * Assessment: 1. C hronic hypokalemia - E87.6 (Primary) 2 . L eukocytosis - D72.829 ? 3 . A cute gastric ulcer with both hemorrhage and perforation - K25.2 ?4. E ssential hypertension - I10 5 . M ixed hyperlipidemia - E78.2 & #160; 6 . D ercums disease - E88.2 7 . H istory of colorectal cancer - Z85.038 8 . O ther chronic pain - G89.29 9 . M ixed stress and urge urinary incontinence - N39.46 1 0. P ostop check - Z09 1 1. P ulmonary atelectasis - J98.11 1 2. B OH 23.0-23.9, adult - Z68.23 ? Plan: * Treatment: Value Reference Range B UN 16 8-23 - mg/dL * C alcium 9.9 8.6-10.4 - mg/dL * C hloride 105 97-108 - mmol/L * C O2 24 20-32 - mmol/L * C reatinine 0.71 0.50-1.00 - mg/dL * G lucose 105 H 65-99 - mg/dL * P otassium 4.9 3.5-5.3 - mmol/L * S odium 141 135-145 - mmol/L * e GFR by Creatinine 88 >59 - mL/min/1.73m2 * Juani Saleem 04/13/2025 08:24:10 AM EDT >I spoke with pt and reported these results; does not need to increase K+ and to keep at 10meq bid Notes: She will see Dr. Thompson Hay for staple removal. She is to continue doing what she is doing. No lifting over 10lbs. Continue diet she is on with small meals throughout the day. Checking labs today to make sure Potassium is OK and CBC. Would like to see her in 3 weeks to check her WBCs. ? 2.?Leukocytosis? Continue Amoxicillin-Pot Clavulanate Tablet, 500-125 MG, 1 tablet, Orally, every 8 hours.?LAB: CBC Venipuncture (in house) (Collection Date & Time - 04/12/2025)* Value Reference Range w bc 15.0 3.5 - 10 * l ymph 17.3 15 - 50 * m id 6.0 2 - 15 * g ran 76.7 35 - 80 * r bc 3.95 3.5 - 5.5 * h gb 12.1 11.5 - 16.5 * h ct 35.9 35 - 55 * m cv 90.8 75 - 100 * m ch 30.6 25 - 35 * m chc 33.6 31 - 38 * p latlet 680 100 - 400 * Jacque Irving 04/12/2025 1 1:18:17 AM EDT > Provider reviewed results while patient in office.Juani Saleem 04/12/2025 03:47:43 PM EDT > 3.?Acute gastric ulcer with both hemorrhage and perforation? Continue Pantoprazole Sodium Tablet Delayed Release, 20 MG, 1 tablet 1/2 to 1 hour before morning meal, Orally, Once a day;?Continue Aspirin Low Dose Tablet Delayed Release, 81 MG, 1 tablet, Orally, Once a day.??4.?Essential hypertension ? Continue Losartan Potassium Tablet, 50 MG, Take 1/2 (one-half) tablet by mouth once daily;?Continue Triamterene-HCTZ Tablet, 37.5-25 MG, 1 tablet in the morning, Orally, Once a day.??5.?Mixed hyperlipidemia? Continue Rosuvastatin Calcium Tablet, 10 MG, TAKE 1 TABLET BY MOUTH ON SATURDAY, SATURDAY AND SATURDAY.??6.?Other chronic pain? Stop CoQ-10 Capsule, 100 MG, 1 cap(s), orally, once a day.??7.?Mixed stress and urge urinary incontinence? Continue Gemtesa Tablet, 75 MG, 1 tablet, Orally, Once a day.??8.?Postop check? Notes: continue with ambulation with care ; continue with eating pattern with bland diet in small amounts several times daily; has surgical FU this week; will have rest of reinier removed??9.?Pulmonary atelectasis? Notes: complete ABX??10.?Others? Notes: Discharge summary with available lab/diagnostic imaging results obtained and reviewed. Discharge medication list reconciled. Appropriate counseling provided. Moderate Complexity?? * Procedure Codes: 9 9495 TRANS CARE MGMT 14 DAY DISCH, 1111F DSCHR MED/CURENT MED MERGE, G2211 Complex [place], [address] CBC WITH AUTO DIFF, 27771 VENIPUNCT, ROUTINE*, 1036F TOBACCO NON-USER, G8420 BMI<30 AND >=22 CALC & DOCU, G8950 PREHTN/HTN BP DOC INDCD F/U DOC, G8752 MOST RECENT SYSTOLIC BP < 140MM HG, G8754 MOST RECENT DIASTOLIC BP < 90MM HG * Follow Up: 3 Weeks * Images: Billing Information: * Visit Code: 41306 Office Visit, Est Pt., Level 4. * Procedure Codes: 30113 TRANS CARE MGMT 14 DAY DISCH. 1111F DSCHR MED/CURENT MED MERGE. G2211 Complex e/[place]. [address] CBC WITH AUTO DIFF. 57691 VENIPUNCT, ROUTINE*. 1036F TOBACCO NON-USER. G8420 BMI<30 AND >=22 CALC & DOCU. G8950 PREHTN/HTN BP DOC INDCD F/U DOC. G8752 MOST RECENT SYSTOLIC BP < 140MM HG. G8754 MOST RECENT DIASTOLIC BP < 90MM HG. * Electronic signature of Carley Saleem APRN on 09/07/2025 at 07:53 AM EST Sign off status: Pending * Provider: YULI Delacruz Date: 0 04/12/2025 Generated for Kasey ovalles/Ghanshyam/Darby on: 1 11/08/2024 07:53 AM EST History and Physical Notes * HPI (History of Present Illness) Category Sub-Category Detail Notes Category Not es HPI Patient is here today for a Sorto sition of Care Visit. Discharge from the following Facility: [facility] with admission for Perforated Gastric Ulcer amd NSTEMI ,Discharge date: 04/08/2025 ,Date of phone contact following discharge: 04/09/2025; pt feels she is doing well. [facility] documentation reviewed; see ROS Examination Category Sub-Category Detail Notes Category Not es General Examination Heart: RRR Lungs: normal, clear to aus cultation Abdomen: [place] intact- ligh t redness around staple insertion sites. not swelling or warm to touch. Soft, tender to touch, normal bowel sounds, no hepatosplenomegaly, nondistended. Extremities: trace leg edema General Appearance: NAD, pleasant, alert Skin: [place] and steri-st rips intact. LABS [facility] labs 04/07/25 06:00: WBC 15.3 H, RBC 3.28 L, Hgb 9.8 L, Hct 29.8 L, MCV 90.9, MCH 29.9, MCHC 32.9, RDW 13.2, Plt Count 434 H, MPV 11.1 H, Neut % (Auto) 67.0, Lymph % (Auto) 17.5, [place] % (Auto) 6.3, Eos % (Auto) 6.1, Baso % (Auto) 0.8, Neut # (Auto) 10.2 H, Lymph # (Auto) 2.7, [place] # (Auto) 1.0, Eos # (Auto) 0.9 H, Baso # (Auto) 0.1, Total Counted 100, Neutrophils % (Manual) 72, Lymphocytes % (Manual) 16, Monocytes % (Manual) 3, Eosinophils % (Manual) 6 H, Basophils % (Manual) 1.0, Myelocytes % 2 H, Platelet Estimate Slight increase, RBC Morphology Normal, Sodium 140, Potassium 3.6 D, Chloride 107, Carbon Dioxide 23, Anion Gap 13.6, BUN 3 L D, Creatinine 0.70, Estimated Creat Clear 57, Estimated GFR 82, Est GFR ( Amer) 99, Glucose 105 H, Calcium 8.4 04/07/25 06:24: POC Glucose 97 04/08/25 05:34: WBC 16.9 H, RBC 3.44 L, Hgb 10.5 L, Hct 31.6 L, MCV 91.9, MCH 30.5, MCHC 33.2, RDW 13.2, Plt Count 450 H, MPV 11.0 H, Neut % (Auto) 67.7, Lymph % (Auto) 17.7, [place] % (Auto) 5.6, Eos % (Auto) 6.6, Baso % (Auto) 0.7, Neut # (Auto) 11.4 H, Lymph # (Auto) 3.0, [place] # (Auto) 0.9, Eos # (Auto) 1.1 H, Baso # (Auto) 0.1, POC Glucose 89
--- OUTSIDE RECORDS SUMMARY | 2025-05-03 11:15 | XMS_ITS ---
Author Organization [facility] Address [address] [place] [id number] Care Team Providers Care Pot Pusher Name Role Phone Kathryn Angeles Primary Care Provider [phone] Allergies Allergen (clinical drug ingredient) Drug/Non Drug Allergy documented on EMR Reaction Allergy Type Onset Date Status nickel HUGO (uncoded) Unknown Allergy Act tamar Polypropylene glycol POLYPROPYLENE GLYCO L (uncoded) Unknown Allergy Active Levaquin Myalgias Drug Allergy Active Retinoic Acid Unknown Drug Allergy Act tamar REASON FOR VISIT F/U Medications Medication SIG (Take, Route, Frequency, Duration) Notes Start Date End Date Status Triamterene-HCTZ 37.5-25 MG 1 tablet in the morning Orally Once a day Active Losartan Potassium 50 MG Take 1/2 (one-h rosalee) tablet by mouth once daily Active Aspirin Low Dose 81 MG 1 tablet Orally O nce a day 12/26/2023 Active Gemtesa 75 MG 1 tablet Orally Once a day Active Pantoprazole Sodium 20 MG 1 tablet 1/2 t o 1 hour before morning meal Orally Once a day Active Triamcinolone Acetonide 0.1 % 1 application Externally twice a day 05/03/2025 Active Rosuvastatin Calcium 10 MG 1 tablet Orally Saturday, Sat, Saturday; Duration: 30 days Active Align 4 MG 1 cap(s) orally once a day; Duration: 28 day(s) 12/24/2022 Not-Taking Albuterol Sulfate HFA 108 (90 Base) MCG/ACT 1 puff as needed Inhalation four times a day as needed Active Potassium Chloride ER 20 MEQ 1 tablet with food Orally twice a day; Duration: 30 days 04/13/2025 Active oxyBUTYnin Chloride 5 MG 1 tablet Orally Once a day; Duration: 30 days 05/03/2025 Active Vital Signs Weight 145.6 lbs 05/03/2025 Blood pressure systolic 120 mm Hg 05/03/20 25 Blood pressure diastolic 70 mm Hg 025 Heart Rate 84 /min 05/03/2025 Height 66 in 05/03/2025 BMI 23.5 kg/m2 05/03/2025 Encounters Encounter Location Date Provider Diagnosis [facility] [address] [facility] [address] [place] [id number] 05/03/2025 Kathryn Angeles Carcinoma of gallbladder C23 ; History of laparoscopic Josh patch repair of perforated peptic ulcer Z98.890 ; Mixed stress and urge urinary incontinence N39.46 ; Dermatitis L30.9 and BMI 23.0-23.9, adult Z68.23 Assessments Encounter Date Diagnosis (ICD Code) Assessment Notes Treatment Notes Treatment Clinical Notes Section Notes 05/03/2025 Carcinoma of gallbladder (ICD-10 - C23) 05/03/2025 History of laparoscopic Josh patch repair of perforated peptic ulcer (ICD-10 - Z98.890) 05/03/2025 Mixed stress and urge urinary incontinence (ICD-10 - N39.46) 05/03/2025 Dermatitis (ICD-10 - L30.9) 05/03/2025 BMI 23.0-23.9, adult (ICD-10 - Z68.23) Plan Of Treatment Medication Medication Name Sig Start Date Stop Date Notes Triamcinolone Acetonide 0.1 % 1 applicat ion Externally twice a day 05/03/2025 oxyBUTYnin Chloride 5 MG 1 tablet Orally Once a day; Duration: 30 days 05/03/2025 Next Appt Details Follow Up: 4 Weeks, Reason: Provider Name:Kathryn Pennington er, 11/29/2025 10:45:00 AM, [address] [facility], [address], [place], [phone], Progress Notes * Celia HOLLY:[birth year] (75 yo F)Acc No.[id number]:05/03/2025 Progress Notes Patient: Alyssia ROCHE Provider: Kathryn Angeles M.D. :1950 A ge:74 Y S ex:Female Date:05/03/2025 Address:[address], [place], [id number] Subjective: * Chief Complaints: * 1 . F/U. * HPI: G astroenterology: The pt is here for a follow up on cholecystectomy. CANCER OF THE GALLBLADDER. Pt states she is slowly feeling better. Pt states she would like to discuss recent labs. Pt states Dr López has referred her to Dr Veloz oncology at . * ROS: D ERMATOLOGY: no R heather. n o H alexey. G ASTROENTEROLOGY: Positive for e ating small amounts q few hours; being careful with foods- soups and plain. n o N ausea. n o V omiting. n o D iarrhea.?no C onstipation. n o B lood in stool. U ROLOGY: no D ifficulty urinating. n [...] 03/17/19, Colonoscopy, Dr. Frazier 09/10/2019, Lap shannan/Dr. Frazier, with subsequent Dx of CARCINOMA OF GALLBLADDER. 03/25/2025, perforated prepyloric gastric ulcer with repair using a Josh patch/ Dr. Patino 04/01/2025, CA 19.9 elevated at 49. 04/21/2025. * Hospitalization/Major Diagno stic Procedure: hyacinth bustillos stone 02/2011, [facility] ER-fall 06/06, [facility] with perforated ulcer with repair with Josh patch/Dr. Patino 04/01-04/08/2025. * Family History: F ather: . M other: . 1 sister(s) . . * Social History: C URRENT TOBACCO USE S moking Status: Patient does NOT smoke, Second hand smoke exposure: No. H ome smoke detector use: yes. Marital Status: Single, spouse is . Occupation: Works at [employer]. Past smoking status: no, 2003, quit smoking. Occup. exposure: She saw the [employer] twice! She saw Laith Mayorga! Also Alissa Jones and Curtis Briceno! Her favorite concert was [employer] * Medications: T aking Albuterol Sulfate HFA 108 (90 Base) MCG/ACT Aerosol Solution 1 puff as needed Inhalation four times a day as needed , Taking Pantoprazole Sodium 20 MG Tablet Delayed Release 1 tablet 1/2 to 1 hour before morning meal Orally Once a day , Taking Gemtesa 75 MG Tablet 1 tablet Orally Once a day , Taking Aspirin Low Dose 81 MG Tablet Delayed Release 1 tablet Orally Once a day , Taking Losartan Potassium 50 MG Tablet Take 1/2 (one-half) tablet by mouth once daily , Taking Triamterene-HCTZ 37.5-25 MG Tablet 1 tablet in the morning Orally Once a day , Taking Potassium Chloride ER 20 MEQ Tablet Extended Release 1 tablet with food Orally twice a day , Taking Rosuvastatin Calcium 10 MG Tablet 1 tablet Orally Saturday, Sat, Saturday , Not-Taking Align 4 MG Capsule 1 cap(s) orally once a day , Discontinued Amoxicillin-Pot Clavulanate 500-125 MG Tablet 1 tablet Orally every 8 hours , Medication List reviewed and reconciled with the patient * Allergies: L evaquin: Myalgias - Side Effects, HUGO: Allergy, POLYPROPYLENE GLYCOL: Allergy, Retinoic Acid: Allergy. Objective: * Vitals: W t: 145.6, Temp: 97.8, BP: 120/70, HR: 84, Nurse: TIM, Ht: 66, BMI:23.5. * Examination: G eneral Examination: General Appearance: N AD. H EENT: u nremarkable.?Oral cavity: n o lesions, mucosa moist and WNL, no erythema. N yong: i mproved ROM but some discomfort. . C hest: n ormal shape and expansion. H eart: R SR. L ungs: n o rhonchi, no wheezes heard, decreased breath sounds. A bdomen: s oft and nontender, surgical scars healing well.. N eurologic Exam: I ntact, gait normal. S kin: normal, no rash. P eripheral pulses: n ormal . E xtremities: t race l eg edema.? Assessment: * Assessment: 1. C arcinoma of gallbladder - C23 (Primary) 2 . H istory of laparoscopic Josh patch repair of perforated peptic ulcer - Z98.890 3 . M ixed stress and urge urinary incontinence - N39.46 4 . D ermatitis - L30.9 5 . BMI 23.0-23.9, adult - Z68.23 Plan: * Treatment: 2. D ermatitis Start Triamcinolone Acetonide Cream, 0.1 %, 1 application, Externally, twice a day, 60 Gram, Refills 0. * Procedure Codes: G 2211 Complex e/m visit add on, 1036F TOBACCO NON-USER, G8783 BP SCR PRFRM RCMDD DEFIND SCR INTVL, G8752 MOST RECENT SYSTOLIC BP < 140MM HG, G8754 MOST RECENT DIASTOLIC BP < 90MM HG, G8420 BMI<30 AND >=22 CALC & DOCU * Follow Up: 4 Weeks * Images: Billing Information: * Visit Code: 76261 Office Visit, Est Pt., Level 4. * Procedure Codes: G2211 Complex e/m visit add on. 1036F TOBACCO NON-USER. G8783 BP SCR PRFRM RCMDD DEFIND SCR INTVL. G8752 MOST RECENT SYSTOLIC BP < 140MM HG. G8754 MOST RECENT DIASTOLIC BP < 90MM HG. G8420 BMI<30 AND >=22 CALC & DOCU. * Electronic signature of Kathryn Angeles MD on 09/07/2025 at 07:54 AM EST Sign off status: Pending * Provider: Kathryn Angeles M.D. Date: 0 05/03/2025 Generated for Kasey ovalles/Ghanshyam/eTransmitting on: 1 11/08/2024 07:54 AM EST History and Physical Notes * Examination Category Sub-Category Detail Notes Category Not es General Examination HEENT: unremarkable Heart: RSR Lungs: no rhonchi, no wheez es heard, decreased breath sounds Abdomen: soft and nontender, surgical scars healing well. Extremities: trace leg edema General Appearance: NAD Skin: normal, no rash Neurologic Exam: Intact, gait normal Neck: improved ROM but heidy e discomfort. Oral cavity: no lesions, mucosa m oist and WNL, no erythema Peripheral pulses: normal Chest: normal shape and exp ansion
--- OUTSIDE RECORDS SUMMARY | 2025-05-17 11:00 | XMS_ITS ---
Author Organization [facility] Address [address] [facility] [address] [place] [phone] Care Team Providers Care Icing Mixer Name Role Phone Kathryn Angeles Primary Care Provider Allergies Allergen (clinical drug ingredient) Drug/Non Drug Allergy documented on EMR Reaction Allergy Type Onset Date Status nickel HUGO (uncoded) Unknown Allergy Act tamar Polypropylene glycol POLYPROPYLENE GLYCO L (uncoded) Unknown Allergy Active Levaquin Myalgias Drug Allergy Active Retinoic Acid Unknown Drug Allergy Act tamar REASON FOR VISIT 2 months Medications Medication SIG (Take, Route, Frequency, Duration) Notes Start Date End Date Status Align 4 MG 1 cap(s) orally once a day; Duration: 28 day(s) 12/24/2022 Not-Taking Losartan Potassium 50 MG 0.5 tablets ora lly once a day; Duration: 90 days Active Triamcinolone Acetonide 0.1 % 1 application Externally twice a day 05/03/2025 Active oxyBUTYnin Chloride 5 MG 1 tablet Orally Once a day; Duration: 30 days 05/03/2025 Active Rosuvastatin Calcium 10 MG 1 tablet Orally Saturday, Sat, Saturday; Duration: 30 days Active Potassium Chloride ER 20 MEQ 1 tablet with food Orally twice a day; Duration: 30 days 04/13/2025 Active Triamterene-HCTZ 37.5-25 MG 1 tablet in the morning Orally Once a day Active Aspirin Low Dose 81 MG 1 tablet Orally O nce a day 12/26/2023 Active Gemtesa 75 MG 1 tablet Orally Once a day Active Pantoprazole Sodium 20 MG 1 tablet 1/2 t o 1 hour before morning meal Orally Once a day Active Albuterol Sulfate HFA 108 (90 Base) MCG/ACT 1 puff as needed Inhalation four times a day as needed Active Vital Signs Weight 144.6 lbs 05/17/2025 Blood pressure systolic 114 mm Hg 05/17/20 Blood pressure diastolic 70 mm Hg 025 Heart Rate 79 /min 05/17/2025 Height 66 in 05/17/2025 BMI 23.34 kg/m2 05/17/2025 Encounters Encounter Location Date Provider Diagnosis [facility] [address] [facility] [address] [facility] [address] [place] [phone] 05/17/2025 Kathryn Angeles Adenocarcinoma of gallbladder C23 and History of laparoscopic Josh patch repair of perforated peptic ulcer Z98.890 Assessments Encounter Date Diagnosis (ICD Code) Assessment Notes Treatment Notes Treatment Clinical Notes Section Notes 05/17/2025 Adenocarcinoma of gallbladder (ICD-10 - C23) 05/17/2025 History of laparoscopic Josh patch repair of perforated peptic ulcer (ICD-10 - Z98.890) Plan Of Treatment Next Appt Details Follow Up: 3 Months sooner p rn, Reason: Provider Name:Kathryn Pennington er, 11/29/2025 10:45:00 AM, [address] [facility] [address] [facility], [address], [place], [phone], Progress Notes * Karen NUÑEZBethanyB:[birth year] (75 yo F)Acc No.[id number]:05/17/2025 Progress Notes Patient: Alyssia ROCHE Provider: Kathryn Angeles M.D. :1950 A ge:74 Y S ex:Female Date:05/17/2025 Address:[address], [id number] Subjective: * Chief Complaints: * 1 . 2 months. * HPI: C ardiology: The pt is here for a check up on Hypertension and gall bladder cancer. Pt states she is scheduled for May 31 for a laproscopic biopsy of the liver with Dr Veloz at . Denies : Chest Pain. D enies : [...] 48. 04/21/2025. * Hospitalization/Major Diagno stic Procedure: k idney stone 02/2011, [facility] ER-fall 06/06, [facility] with perforated ulcer with repair with Josh patch/Dr. Patino 04/01-04/08/2025. * Family History: F ather: . M other: . 1 sister(s) . . * Social History: C URRENT TOBACCO USE S moking Status: Patient does NOT smoke, Second hand smoke exposure: No. H ome smoke detector use: yes. Marital Status: Single, spouse is . Occupation: Works at [employer]. Past smoking status: no, 2004, quit smoking. Occup. exposure: She saw the Beatles twice! She saw Laith Mayorga! Also Alissa Reyesplin and Curtis Briceno! Her favorite concert was [employer] * Medications: T aking Albuterol Sulfate HFA [...] 1 tablet Orally Saturday, Sat, Saturday , Taking oxyBUTYnin Chloride 5 MG Tablet 1 tablet Orally Once a day , Taking Triamcinolone Acetonide 0.1 % Cream 1 application Externally twice a day , Taking Losartan Potassium 50 MG Tablet 0.5 tablets orally once a day , Not-Taking Align 4 MG Capsule 1 cap(s) orally once a day , Medication List reviewed and reconciled with the patient * Allergies: L evaquin: Myalgias - Side Effects, HUGO: Allergy, POLYPROPYLENE GLYCOL: Allergy, Retinoic Acid: Allergy. Objective: * Vitals: W t: 144.6, Temp: 98.2, BP: 114/70, HR: 79, O2 Sat: 98% on RA, Nurse: TIM, Ht: 66, BMI:23.34. * Examination: G eneral Examination: General Appearance: [...] l eg edema.? Assessment: * Assessment: 1. A denocarcinoma of gallbladder - C23 (Primary) 2 . H istory of laparoscopic Josh patch repair of perforated peptic ulcer - Z98.890 Plan: * Treatment: * Procedure Codes: G 2211 Complex e/m visit add on * Follow Up: 3 Months sooner prn * Images: Billing Information: * Visit Code: 70168 Office Visit, Est Pt., Level 3. * Procedure Codes: G2211 Complex e/m visit add on. * Electronic signature of Kathryn Angeles MD on 09/07/2025 at 07:55 AM EST Sign off status: Pending * Provider: Kathryn Angeles M.D. Date: 0 05/17/2025 Generated for Binai josr/Ghanshyam/eTransmitting on: 1 11/08/2024 07:55 AM EST History [...]
--- OUTSIDE RECORDS SUMMARY | 2025-06-07 11:15 | XMS_ITS ---
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 :1950 A ge:74 Y S ex:Female Date:06/07/2025 Address:[address], [id number] Subjective: * Chief Complaints: * 1 . 4 week. * Medical History: Objective: * Vitals: Assessment: Plan: * Treatment: * Images: Billing Information: * Visit Code: * Procedure Codes: * Electronic signature of Kathryn Angeles MD on 09/07/2025 at 07:55 AM EST Sign off status: Pending * Provider: Kathryn Angeles M.D. Date: 0 06/07/2025 Generated for Kasey ovalles/Ghanshyam/Darby on: 1 11/08/2024 07:55 AM EST
--- OUTSIDE RECORDS SUMMARY | 2025-06-28 06:45 | XMS_ITS ---
Author Organization [facility] Address [address] [place] [id number] Care Team Providers Care Building Inspector Name Role Phone Kathryn Angeles Primary Care Provider [phone] Allergies Allergen (clinical drug ingredient) Drug/Non Drug Allergy documented on EMR Reaction Allergy Type Onset Date Status nickel HUGO (uncoded) Unknown Allergy Act tamar Polypropylene glycol POLYPROPYLENE GLYCO L (uncoded) Unknown Allergy Active Levaquin Myalgias Drug Allergy Active Retinoic Acid Unknown Drug Allergy Act tamar Results Component Value Reference Range Notes P-Comprehensive Metabolic Pa macario (CMP) Reviewed date:06/29/2025 08:40:29 AM Interpretation:Alkaline Phosphatase 150 Performing Lab: Notes/Report: Test performed by [facility], [place] [address] [place] [address] , [address], [place] [address] Rafi Forbes MD, Acupuncture Physician CLIA: [id number] Sodium 139 135-145 mmol/L Potassium 4.2 3.5-5.3 mmol/L Chloride 101 97-108 mmol/L CO2 27 20-32 mmol/L Glucose 86 65-99 mg/dL BUN 13 8-23 mg/dL Creatinine 0.50 0.50-1.00 mg/dL Calcium 10.2 8.6-10.4 mg/dL eGFR by Creatinine 97 >59 mL/min/1.73m2 Protein 6.6 6.0-8.3 g/dL Albumin 4.3 3.5-5.3 g/dL Alkaline Phosphatase 150 35-121 IU/L ALT (SGPT) 13 <5-47 IU/L AST (SGOT) 26 <5-40 IU/L Bilirubin, Total 0.3 <0.2-1.2 mg/dL A/G Ratio 1.9 1.1-2.5 REASON FOR VISIT 3 MONTHS, Needs flu vaccine Medications Medication SIG (Take, Route, Frequency, Duration) Notes Start Date End Date Status Gemtesa 75 MG 1 tablet Orally Once a day Not-Taking Lidocaine 5 % 1 patch remove after 12 hours Externally Once a day; Duration: 30 days 06/28/2025 Active Metoclopramide HCl 10 MG 1 tablet before meals Orally every 8 hours Active Pantoprazole Sodium 20 MG 1 tablet 1/2 t o 1 hour before morning meal Orally Once a day Active Albuterol Sulfate HFA 108 (90 Base) MCG/ACT 1 puff as needed Inhalation four times a day as needed Active oxyBUTYnin Chloride 5 MG 1 tablet Orally Once a day; Duration: 30 days 05/03/2025 Active Triamcinolone Acetonide 0.1 % APPLY CREAM EXTERNALLY TWICE DAILY; Duration: 30 Not-Taking Losartan Potassium 50 MG 0.5 tablets ora lly once a day; Duration: 90 days Active Align 4 MG 1 cap(s) orally once a day; Duration: 28 day(s) 12/24/2022 Not-Taking Triamterene-HCTZ 37.5-25 MG 1 tablet in the morning Orally Once a day; Duration: 90 days Active Potassium Chloride ER 20 MEQ 1 tablet with food Orally twice a day; Duration: 30 days 04/13/2025 Active Aspirin Low Dose 81 MG 1 tablet Orally O nce a day 12/26/2023 Active Rosuvastatin Calcium 10 MG 1 tablet Oral ly Saturday, Sat, Saturday; Duration: 30 days Active Vital Signs Weight 136.8 lbs 06/28/2025 Blood pressure systolic 102 mm Hg 06/28/20 25 Blood pressure diastolic 54 mm Hg 025 Heart Rate 76 /min 06/28/2025 Height 66 in 06/28/2025 BMI 22.08 kg/m2 06/28/2025 Encounters Encounter Location Date Provider Diagnosis [facility] [address] [place], [place] [id number] 06/28/2025 Kathryn Angeles Adenosquamous carcin mike of gallbladder 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 ; Midline low back pain without sciatica, unspecified chronicity M54.50 and Acute rhinitis J00 Assessments Encounter Date Diagnosis (ICD Code) Assessment Notes Treatment Notes Treatment Clinical Notes Section Notes 06/28/2025 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) 06/28/2025 Midline low back pain without sciatica, unspecified chronicity (ICD-10 - M54.50) 06/28/2025 Acute rhinitis (ICD-10 - J00) Plan Of Treatment Medication Medication Name Sig Start Date Stop Date Notes Lidocaine 5 % 1 patch remove after 12 hours Externally Once a day; Duration: 30 days 06/28/2025 Next Appt Details Follow Up: 2 Months, Reason: Provider Name:Kathryn Pennington er, 11/29/2025 10:45:00 AM, [address], [address], [place], [place], [id number], Progress Notes * Mamie HOLLYB:[birth year] (75 yo F)Acc No.[id number]:06/28/2025 Progress Notes Patient: Alyssia ROCHE Provider: Kathryn Angeles M.D. :1950 A ge:74 Y S ex:Female Date:06/28/2025 Address:[address], [place], [id number] Subjective: * Chief Complaints: * 1 . 3 MONTHS. 2. Needs flu vaccine. * HPI: H PI: The pt is here for a follow-up after surgery with Dr Veloz on 05/31/25, exploratory lap, portal node dissection, segment 4B/5 partial hepatectomy, omental flap. Pt states she is having a lot of fatigue since the surgery. Pt states she is taking Metoclopramide 10 mg every 8 hour. Pt states all other medications from discharge are completed. * ROS: C ONSTITUTIONAL: Positive for A nother physician seen since last visit? Yes Change in medication since last visit? Yes Are you taking antibiotics? No Are you taking steroids? No. D ERMATOLOGY: no R heather. n o [...] 04/21/2025. * Hospitalization/Major Diagno stic Procedure: k tressa stone 02/2011, [facility] ER-fall 06/06, [facility] with perforated ulcer with repair with Josh patch/Dr. Patino 04/01-04/08/2025. * Family History: F ather: . M other: . 1 sister(s) . . * Social History: C URRENT TOBACCO USE S moking Status: Patient does NOT smoke, Second hand smoke exposure: No. H ome smoke detector use: yes. Marital Status: Single, spouse is . Occupation: Works at [employer]. Past smoking status: no, 2003, quit smoking. Occup. exposure: She saw the Beatles twice! She saw Laith Mayorga! Also Alissa Jones and Curtis Briceno! Her favorite concert was [employer].. * Medications: T aking Metoclopramide HCl 10 MG Tablet 1 tablet before meals Orally every 8 hours , Taking Albuterol Sulfate HFA 108 (90 Base) MCG/ACT Aerosol Solution 1 puff as needed Inhalation four times a day as needed , Taking Pantoprazole Sodium 20 MG Tablet Delayed Release 1 tablet 1/2 to 1 hour before morning meal Orally Once a day , Taking Aspirin Low Dose 81 MG Tablet Delayed Release 1 tablet Orally Once a day , Taking Potassium Chloride ER 20 MEQ Tablet Extended Release 1 tablet with food Orally twice a day , Taking Rosuvastatin Calcium 10 MG Tablet 1 tablet Orally Saturday, Sat, Saturday , Taking oxyBUTYnin Chloride 5 MG Tablet 1 tablet Orally Once a day , Taking Losartan Potassium 50 MG Tablet 0.5 tablets orally once a day , Taking Triamterene-HCTZ 37.5-25 MG Tablet 1 tablet in the morning Orally Once a day , Not-Taking Gemtesa 75 MG Tablet 1 tablet Orally Once a day , Not-Taking Triamcinolone Acetonide 0.1 % Cream APPLY CREAM EXTERNALLY TWICE DAILY , Not-Taking Align 4 MG Capsule 1 cap(s) orally once a day , Medication List reviewed and reconciled with the patient * Allergies: L evaquin: Myalgias - Side Effects, HUGO: Allergy, POLYPROPYLENE GLYCOL: Allergy, Retinoic Acid: Allergy. Objective: * Vitals: W t: 136.8, Temp: 97.8, BP: 102/54, HR: 76, O2 Sat: 99% on RA, Nurse: TIM, Ht: 66, BMI:22.08. * Examination: G eneral Examination: General Appearance: N AD, note weight loss. H EENT:?unremarkable. O ral cavity: n o lesions, mucosa moist and WNL, no erythema. N yong: ?no lymphadenopathy. C hest: n ormal shape and expansion. H eart: R SR. L ungs: d ecreased breath sounds. A bdomen: s oft and nontender, surgical scars healing well..?Neurologic Exam: I ntact, gait normal. S kin: normal, no rash. P eripheral pulses: n ormal . E xtremities: t race l eg edema. Assessment: * Assessment: 1. 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 M idline low back pain without sciatica, unspecified chronicity - M54.50 3 . A cute rhinitis - J00 Plan: * Treatment: Value Reference Range A /G Ratio 1.9 1.1-2.5 - * A lbumin 4.3 3.5-5.3 - g/dL * A lkaline Phosphatase 150 H 35-121 - IU/L * A LT (SGPT) 13 <5-47 - IU/L * A ST (SGOT) 26 <5-40 - IU/L * B ilirubin, Total 0.3 <0.2-1.2 - mg/dL * B UN 13 8-23 - mg/dL * C alcium 10.2 8.6-10.4 - mg/dL * C hloride 101 97-108 - mmol/L * C O2 27 20-32 - mmol/L * C reatinine 0.50 0.50-1.00 - mg/dL * G lucose 86 65-99 - mg/dL * P otassium 4.2 3.5-5.3 - mmol/L * S odium 139 135-145 - mmol/L * P rotein 6.6 6.0-8.3 - g/dL * e GFR by Creatinine 97 >59 - mL/min/1.73m2 * Michelle Owens 06/29/2025 08:4 0:19 AM EDT > See phone encounter 2.?Midline low back pain without sciatica, unspecified chronicity? Start Lidocaine Patch, 5 %, 1 patch remove after 12 hours, Externally, Once a day, 30 days, 30, Refills 1.?? * Procedure Codes: G 2211 Complex e/m visit add on * Follow Up: 2 Months * Images: Billing Information: * Visit Code: 41285 Office Visit, Est Pt., Level 4. * Procedure Codes: G2211 Complex e/m visit add on. * Electronic signature of Kathryn Angeles MD on 09/07/2025 at 07:55 AM EST Sign off status: Pending * Provider: Kathryn Angeles M.D. Date: Generated for Kasey ovalles/Ghanshyam/eTransmitting on: 11/08/2024 07:55 AM EST History and Physical Notes * Examination Category Sub-Category Detail Notes Category Not es General Examination HEENT: unremarkable Heart: RSR Lungs: decreased breath ross nds Abdomen: soft and nontender, surgical scars healing well. Extremities: trace leg edema General Appearance: NAD, note weight los s Skin: normal, no rash Neurologic Exam: Intact, gait normal Neck: no lymphadenopathy Oral cavity: no lesions, mucosa m oist and WNL, no erythema Peripheral pulses: normal Chest: normal shape and exp ansion
--- OUTSIDE RECORDS SUMMARY | 2025-07-12 14:45 | XMS_ITS | Encounter Summary ---
[facility] [address] [place] [address] Care Team Providers Care Hairmasters Manager Name Role Phone Efrain Angeles MD Primary Care Provider [phone] [phone] Reason for Visit * Reason Comments Palpitations Encounter Details Date Type Department Care Team (Late st Contact Info) Description 07/12/2025 3:45 PM EDT Office Visit [facility] CARDIOLOGY [address] [facility] [place] [address] [place] [phone] Steve Correa MD [address] [facility] [address] [place] [address] Abnormal EKG (Primary Dx); Bruit of right [...] from the original note were not included. [facility] Cardiology [address] [place] [address], [address] [place], [place], [id number] WWW.[facility] HOSPITALPowa TechnologiesCO[facility] OUTPATIENT CLINIC FOLLOW-UP NOTE Patient care team: [...] inferolateral leads Brother was a heavy smoker, [place] at 38. Sister had congenital heart disease/rheumatic heart disease, CABG at 42 Biatrial enlargement, RV enlargement, grade 1 diastolic dysfunction Echo fall 2021 Right carotid bruit Carotid duplex 07/2022: No obstructive disease, antegrade vertebral flow Hypertension Cervical cancer treated at approximate age 29 Colon cancer treated at approximately age 59 Gallbladder cancer, status post laparoscopic surgery, lymph node dissection, partial hepatectomy, [facility], 05/2025 Former tobacco use, quit 2003 Subjective: [...] Description 07/25/2026 1:15 PM EST Office Visit [facility] CARDIOLOGY [address] [place] [address] Rita Lei, CARD LACER [address] [facility] [address] [place] [address] documented as of this encounter Procedures Procedure [...] from the original note were not included. [facility] Cardiology [address] [facility], [address] [place], [address] WWW.[facility] HOSPITALPowa TechnologiesCO[facility] OUTPATIENT CL[facility]IC FOLLOW-UP NOTE Patient care team: [...] inferolateral leads Brother was a heavy smoker, [place] at 38. Sister had congenital heartdisease/rheumatic heart disease, CABG at 42 Biatrial enlargement, RV enlargement, grade 1 diastolic dysfunction Echo fall 2021 Right carotid bruit Carotid duplex 07/2022: No obstructive disease, antegrade vertebral flow Hypertension Cervical cancer treated at approximate age 29 Colon cancer treated at approximately age 59 Gallbladder cancer, status post laparoscopic surgery, lymph nodedissection, partial hepatectomy, [facility], 05/2025 Former tobacco use, quit 2003 Subjective: [...] hypertension documented in this encounter Care Teams Hairmasters Manager Relationship Specialty Start Date End Date Efrain Angeles MD [facility] [address] [facility] [address] [place] [address] PCP - General Family Medicine 07/16/22 documented as of this encounter
--- OUTSIDE RECORDS SUMMARY | 2025-08-30 05:15 | XMS_ITS ---
Author Organization [facility] Address [address] [facility] [address] [place] [id number] Care Team Providers Care Certification And Selection Specialist Name Role Phone Kathryn Angeles Primary Care Provider Allergies Allergen (clinical drug ingredient) Drug/Non Drug Allergy documented on EMR Reaction Allergy Type Onset Date Status nickel HUGO (uncoded) Unknown Allergy Act tamar Polypropylene glycol POLYPROPYLENE GLYCO L (uncoded) Unknown Allergy Active Levaquin Myalgias Drug Allergy Active Retinoic Acid Unknown Drug Allergy Act tamar REASON FOR VISIT 2 months, Needs labs, mammogram, Prevnar, flu vaccines Medications Medication SIG (Take, Route, Frequency, Duration) Notes Start Date End Date Status Albuterol Sulfate HFA 108 (90 Base) MCG/ACT 1 puff as needed Inhalation four times a day as needed Active Tolterodine Tartrate 2 MG 1 tablet Orall y Twice a day Active Famotidine 20 MG 1 tablet at bedtime as needed Orally Once a day Active Capecitabine 500 MG as directed Orally Active Metoclopramide HCl 10 MG 1 tablet before meals Orally every 8 hours Not-Taking Triamcinolone Acetonide 0.1 % APPLY CREAM EXTERNALLY TWICE DAILY; Duration: 30 Not-Taking Align 4 MG 1 cap(s) orally once a day; Duration: 28 day(s) 12/24/2022 Not-Taking Lidocaine 5 % 1 patch remove after 12 hours Externally Once a day; Duration: 30 days Active Losartan Potassium 50 MG Take 1/2 (one-h rosalee) tablet by mouth once daily; Duration: 90 Not-Taking Gemtesa 75 MG 1 tablet Orally Once a day Not-Taking Aspirin Low Dose 81 MG 1 tablet Orally O nce a day 12/26/2023 Active Potassium Chloride ER 20 MEQ 1 tablet with food Orally twice a day; Duration: 30 days 04/13/2025 Active oxyBUTYnin Chloride 5 MG 1 tablet Orally Once a day; Duration: 30 days 05/03/2025 Not-Takin g Triamterene-HCTZ 37.5-25 MG 1 tablet in the morning Orally Once a day; Duration: 90 days Active Rosuvastatin Calcium 10 MG 1 tablet Oral ly Saturday, Sat, Saturday; Duration: 30 days Not-Taking Pantoprazole Sodium 20 MG 1 tablet 1/ t o 1 hour before morning meal Orally Once a day Not-Taking Vital Signs Weight 134.8 lbs 08/30/2025 Blood pressure systolic 110 mm Hg 08/30/20 25 Blood pressure diastolic 68 mm Hg 025 Heart Rate 96 /min 08/30/2025 Height 66 in 08/30/2025 BMI 21.75 kg/m2 08/30/2025 Encounters Encounter Location Date Provider Diagnosis [place] [address] [facility] [address] [place] [phone] 08/30/2025 Kathryn Angeles Gallbladder carcinom a C23 ; Status post cholecystectomy Z90.49 ; Gastric perforation K25.5 ; Essential (primary) hypertension I10 and BMI 21.0-21.9, adult Z68.21 Assessments Encounter Date Diagnosis (ICD Code) Assessment Notes Treatment Notes Treatment Clinical Notes Section Notes 08/30/2025 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 López 08/30/2025 Status post cholecystectomy (ICD-10 - Z90.49) 08/30/2025 Gastric perforation (ICD-10 - K25.5) 08/30/2025 Essential (primary) hypertension (ICD-10 - I10) 08/30/2025 BMI 21.0-21.9, adult (ICD-10 - Z68.21) Plan Of Treatment Treatment Notes Assessment Notes Gallbladder carcinoma follow-up per Dr. López Next Appt Details Follow Up: 3M, Reason: Provider Name:Kathryn Pennington er, 11/29/2025 10:45:00 AM, [address] [facility], [address], [place], [phone], Progress Notes * Mamie HOLLYB:[birth year] (75 yo F)Acc No.[id number]:08/30/2025 Progress Notes Patient: Alyssia ROCHE Provider: Kathryn Angeles M.D. :1950 A ge:75 Y S ex:Female Date:08/30/2025 Address:[facility] [address] [place], [place], [id number] Subjective: * Chief Complaints: * 1 . 2 months. 2. Needs labs, mammogram, Prevnar, flu vaccines. * HPI: H PI: 75 year old female presents with c/o Patient is here today for?Pt states she is here for a routine follow up. On second round of Chemo (Capecitabine). Pt states she is having some stomach issues since her surgery. Bowels are OK now. Dr. López's report 08/17 states 6mo therapy is planned. Has had rather severe occular migaines.. * ROS: C ONSTITUTIONAL: Positive for A nother physician seen since last visit?Y, Change in medication since last visit?Y, Are you taking antibiotics?N, Are you taking steroids?N. D ERMATOLOGY: no R heather. n o [...] Diagno stic Procedure: k tressa stone 02/2011, [facility] ER-fall 06/06, [facility] with perforated ulcer with repair with Josh patch/Dr. Patino 04/01-04/08/2025. * Family History: F ather: . M other: . 1 sister(s) . . * Social History: C URRENT TOBACCO USE: No S moking Status: Patient does NOT smoke, Second hand smoke exposure: No. H ome smoke detector use: yes. Marital Status: Single, spouse is . Occupation: Works at [employer]. Past smoking status: no, 2003, quit smoking. Occup. exposure: She saw the [place] twice! She saw Laith Mauricex! Also Alissa Jones and Curtis Briceno! Her favorite concert was [employer].. * Medications: T aking Tolterodine Tartrate 2 MG Tablet 1 tablet Orally Twice a day , Taking Famotidine 20 MG Tablet 1 tablet at bedtime as needed Orally Once a day , Taking Capecitabine 500 MG Tablet as directed Orally , Taking Albuterol Sulfate HFA 108 (90 Base) MCG/ACT Aerosol Solution 1 puff as needed Inhalation four times a day as needed , Taking Aspirin Low Dose 81 MG Tablet Delayed Release 1 tablet Orally Once a day , Taking Potassium Chloride ER 20 MEQ Tablet Extended Release 1 tablet with food Orally twice a day , Taking Triamterene-HCTZ 37.5-25 MG Tablet 1 tablet in the morning Orally Once a day , Taking Lidocaine 5 % Patch 1 patch remove after 12 hours Externally Once a day , Not-Taking Metoclopramide HCl 10 MG Tablet 1 tablet before meals Orally every 8 hours , Not-Taking Pantoprazole Sodium 20 MG Tablet Delayed Release 1 tablet 1/2 to 1 hour before morning meal Orally Once a day , Not- Taking oxyBUTYnin Chloride 5 MG Tablet 1 tablet Orally Once a day , Not-Taking Rosuvastatin Calcium 10 MG Tablet 1 tablet Orally Saturday, Sat, Saturday , Not-Taking Losartan Potassium 50 MG Tablet Take 1/2 (one-half) tablet by mouth once daily , Not- Taking Gemtesa 75 MG Tablet 1 tablet [...] Acid: Allergy. Objective: * Vitals: W t: 134.8, Temp: 98.0, BP: 110/68, HR: 96, Nurse: DEONNA, Ht: 66, BMI:21.75. * Examination: G eneral Examination: General Appearance: N AD, note weight. H EENT: u nremarkable. O ral cavity: n o lesions, mucosa moist and WNL, no erythema. N yong: n o lymphadenopathy. C hest: n ormal shape and expansion. H eart: R SR. L ungs: decreased breath sounds. A bdomen: s oft and nontender, surgical scars healing well.. N eurologic Exam: I ntact, gait normal. S kin: normal, no rash. P eripheral pulses: n ormal . E xtremities: t race l eg edema. Assessment: * Assessment: 1. G allbladder carcinoma - C23 (Primary) 2 . S tatus post cholecystectomy - Z90.49 3 . G astric perforation - K25.5 4 . E ssential (primary) hypertension - I10 5 . B [place] 21.0-21.9, adult - Z68.21 Plan: * Treatment: * Procedure Codes: G 2211 Complex e/m visit add on, 1036F TOBACCO NON-USER, G8420 BMI<30 AND >=22 CALC & DOCU, G8950 PREHTN/HTN BP DOC INDCD F/U DOC, G8752 MOST RECENT SYSTOLIC BP < 140MM HG, G8754 MOST RECENT DIASTOLIC BP < 90MM HG, 3074F SYST BP LT 130 MM HG, 3078F DIAST BP < 80 MM HG * Follow Up: 3 M * Images: Drawin08/30/25 [facility] Billing Information: * Visit Code: 04269 Office Visit, Est Pt., Level 3. * Procedure Codes: G2211 Complex e/m visit add on. 1036F TOBACCO NON-USER. G8420 BMI<30 AND >=22 CALC & DOCU. G8950 PREHTN/HTN BP DOC INDCD F/U DOC. G8752 MOST RECENT SYSTOLIC BP < 140MM HG. G8754 MOST RECENT DIASTOLIC BP < 90MM HG. 3074F SYST BP LT 130 MM HG. 3078F DIAST BP < 80 MM HG. * Electronic signature of Kathryn Angeles MD on 09/07/2025 at 07:53 AM EST Sign off status: Pending * Provider: Kathryn Angeles M.D. Date: 10/31/2024 Generated for Kasey ovalles/Ghanshyam/eTransmitting on: 11/08/2024 07:53 AM EST History and Physical Notes * HPI (History of Present Illness) Category Sub-Category Detail Notes Category Not es HPI Patient is here today for Pt sta ronak she is here for a routine follow up. On second round of Chemo (Capecitabine). Pt states she is having some stomach issues since her surgery. Bowels are OK now. Dr. López's report 08/17 states 6mo therapy is planned. Has had rather severe occular migaines. Examination Category Sub-Category Detail Notes Category Not es General Examination HEENT: unremarkable Heart: RSR Lungs: decreased breath ross nds Abdomen: soft and nontender, surgical scars healing well. Extremities: trace leg edema General Appearance: NAD, note weight Skin: normal, no rash Neurologic Exam: Intact, gait normal Neck: no lymphadenopathy Oral cavity: no lesions, mucosa m oist and WNL, no erythema Peripheral pulses: normal Chest: normal shape and exp ansion
--- OUTSIDE RECORDS SUMMARY | 2025-09-07 07:53 | XMS_ITS | Encounter Summary ---
Author Organization Healthcare Address [address] [place] [address] Care Team Providers Care Hydrogen Power Plant Manager Name Role Phone Nate Mills MD Primary Care Provider [phone] Efrain Angeles MD Primary Care Provider [phone] Encounter Details Date Type Department Care Team (Late st Contact Info) Description 03/29/2023 Orders Only [facility] [address] [place] [id number] Ebony Albrecht MD [address] [phone] Social History Tobacco Use Types [...] - 10.8 10*3/uL 03/29/2023 9:26 AM EDT [facility] External Red Blood Cell (RBC) 4.66 3.80 - 5.20 10*6/uL 03/29/2023 9:26 AM EDT [facility] External Hemoglobin 14.4 12.0 - 16.0 g/dL 03/29/2023 9:26 AM EDT [facility] External Hematocrit 42.6 35.0 - 47.0 % 03/29/2023 9:26 AM EDT [facility] External MCV 92 80 - 100 fL 03/29/2023 9:26 AM EDT [facility] External MCH 31 26 - 35 pg 03/29/2023 9:26 AM EDT [facility] External MCHC 34 32 - 36 g/dL 03/29/2023 9:26 AM EDT [facility] External RDW 13.7 11.0 - 15.0 % 03/29/2023 9:26 AM EDT [facility] External Mean Platelet Volume 9.7 6.2 - 10.5 fL 03/29/2023 9:26 AM EDT [facility] External Platelets 254 130 - 400 10*3/uL 03/29/2023 9:26 AM EDT [facility] External Neutrophil# 8.9(H) 1.6 - 8.4 10*3/uL 03/29/2023 9:26 AM EDT [facility] External Lymphocyte# 2.7 0.4 - 5.1 10*3/uL 03/29/2023 9:26 AM EDT [facility] External Absolute Monocyte (Abs [place]) 0.7 0.0 - 1.2 10*3/uL 03/29/2023 9:26 AM EDT [facility] External Eosinophils# 0.3 0.0 - 0.8 10*3/uL 03/29/2023 9:26 AM EDT [facility] External Baso# 0.1 0.0 - 0.3 10*3/uL 03/29/2023 9:26 AM EDT [facility] External Neutrophils % 70.2 42.0 - 78.0 % 03/29/2023 9:26 AM EDT [facility] External Lymphocyte % 20.9 11.0 - 47.0 % 03/29/2023 9:26 AM EDT [facility] External Monocyte % 5.6 0.0 - 11.0 % 03/29/2023 9:26 AM EDT [facility] External Eosinophil% 2.7 0.0 - 7.0 % 03/29/2023 9:26 AM EDT [facility] External Basophil % 0.6 0.0 - 3.0 % 03/29/2023 9:26 AM EDT [facility] External Nucleated RBC%-Auto 0.0 0.0 - 0.9 % 03/29/2023 9:26 AM EDT [facility] External Nucleated RBC Absolute 0.00 Not Estab. 10*3/uL 03/29/2023 9:26 AM EDT [facility] 03/29/2023 9:07 AM EDT 03/29/2023 9:22 AM EDT us Ebony Albrecht MD LAB BLOOD ORDERABLES Final Re sult [facility] [address] [place] [address], documented in this encounter Visit Diagnoses Not on filedocumented in this encounter Care Teams Hydrogen Power Plant Manager Relationship Specialty Start Date End Date Nate Mills MD [facility] [address] [place] [address] PCP - General 09/23/20 04/02/24 Efrain Angeles MD [address] [facility] [address] [place] [address] PCP - General 04/03/24 documented as of this encounter
--- OUTSIDE RECORDS SUMMARY | 2025-09-07 07:53 | XMS_ITS | Clinical Summary ---
Author Organization Address [address] [place] [address] Care Team Providers Care County Sheriff Name Role Phone Efrain Angeles MD Primary [...] Encounters Date Type Department Care Team Description 08/25/2025 [facility]phone [facility] [address] [place] [phone] Sarah Alcantara RN 08/04/2025 Telephone [facility] [address] [place] [address] Steve Veloz MD 06/29/2025 3:10 PM EDT Office Visit [facility] [address] [place] [address] Steve Veloz MD Gallbladder cancer (Primary Dx) 06/29/2025 Travel 06/25/2025 [facility]phone [facility] [address] [place] [phone] Steve Veloz MD 06/23/2025 Telephone [facility] [address] [place] [phone] Steve Veloz MD 06/22/2025 Travel 06/16/2025 11:30 AM EDT Office Visit [facility] [address] [place] [phone] Reina Ortega APRN Gallbladder cancer (CMS/HCC) (Primary Dx) 06/16/2025 Travel 06/10/2025 [facility]phone [facility] [address] [place], [place] [phone] Reina Ortega APRN [facility] 06/10/2025 Telephone [facility] [address] [place], [place] [phone] Steve Veloz MD 05/31/2025 9:14 AM EDT - 06/08/2025 2:27 PM EDT Hospital Encounter [facility] A Inpatient [facility] [address] [place], [place] [phone] Steve Veloz MD Adenocarcinoma of gallbladder (CMS/HCC) Discharge Disposition: Home or Self Care from Last 3 Months Family History Medical [...] any time in the past 12 m [facility], were you homeless or living in a [place] health care facility (including now)? No 06/01/2025 [facility] Utilities Answer Date Recorded In the past 12 months has th e [employer], gas, oil, or water [facility] threatened to shut off services in your [...] Wellness (AWV) 1950 [facility]-Infant/Child/Adol SDOH Screenings 1950 [facility]-Zoster Vaccines (2 of 2) 09/05/2020 07/11/2020, 05/06/2020, 10/28/2013 [facility]-DTaP,Tdap,and Td Vaccines (2 - Td or Tdap) 06/23/2022 06/23/2012 [facility]-RSV Vaccine: 60+ Years or (1 - 1-dose 75+ series) 2024 [id number]-[id number]-51 Vaccine ( - season) 2025 06/14/2021, 10/26/2020, 10/20/2020, Additional history exists [facility]-Influenza Vaccine (#1) 05/24/202506/11, 09/21/2021, 05/27/2020, Additional history exists [facility]- SDOH Screenings 11/29/2025 [facility]-Adult SDOH Screenings 11/29/2025 06/01/2025 [facility]-Depression Screening 06/29/2026 06/29/2025 [facility]-Pneumococcal Vaccine: 50+ Years Completed 09/26/2016, 06/29/2015 [facility]-Hepatitis A Vaccines Completed 08/19/2019, 12/22 [facility]-Breast Cancer Screening Discontinued 11/16/2020, 11/16/2020, 11/11/2019, Additional history exists HPV Vaccines (No Doses Required) Completed [facility]-HIB Vaccines Aged Out No longer e [...] W/O DIFFERENTIAL Routine 06/08/2025 3:59 AM EDT from Last 3 Months Results * (ABNORMAL) Cancer Antigen, GI (CA 19.9) (06/29/2025 2:07 PM EDT) CA 19.9 38.6(H) <36 U/mL 06/29/2025 4:03 PM EDT [facility] Blood Venous blood specimen / Unknown Venipuncture / Unknown 06/29/2025 2:07 PM EDT 06/29/2025 2:52 PM EDT Narrative [facility] - 06/29/2025 4:03 PM EDT Performed by Abdelrahman electrochemiluminescent immunoassay. Results obtained with different test methods or kits cannot be used interchangeably. us Steve Veloz MD LAB BLOOD ORDERABLES Final R esult [facility] [address] [place] [address] * CBC and Differential (06/29/2025 2:07 PM EDT) WBC Count 8.34 3.70 - 10.30 10*3/uL LAB HEMATOLOGY METHOD 06/29/2025 2:15 PM EDT [facility] RBC Count 4.05 3.90 - 5.20 10*6/uL LAB HEMATOLOGY METHOD 06/29/2025 2:15 PM EDT [facility] HGB 12.3 11.2 - 15.7 g/dL LAB HEMATOLOGY METHOD 06/29/2025 2:15 PM EDT [facility] HCT 38.0 34.0 - 45.0 % LAB HEMATOLOGY METHOD 06/29/2025 2:15 PM EDT [facility] Platelet Count 254 155 - 369 10*3/uL LAB HEMATOLOGY METHOD 06/29/2025 2:15 PM EDT [facility] MCV 94 79 - 98 fL LAB HEMATOLOGY METHOD 06/29/2025 2:15 PM EDT [facility] MCH 30.4 26.0 - 32.0 pg LAB HEMATOLOGY METHOD 06/29/2025 2:15 PM EDT [facility] MCHC 32.4 30.7 - 35.5 g/dL LAB HEMATOLOGY METHOD 06/29/2025 2:15 PM EDT [facility] RDW 13.2 11.5 - 14.5 % LAB HEMATOLOGY METHOD 06/29/2025 2:15 PM EDT [facility] MPV 11.1 8.8 - 12.5 fL LAB HEMATOLOGY METHOD 06/29/2025 2:15 PM EDT [facility] nRBC 0.0 <=0.0 per 100 WBCs LAB HEMATOLOGY METHOD 06/29/2025 2:15 PM EDT [facility] Differential Type Automated LAB HEMATOLOGY METHOD 06/29/2025 2:15 PM EDT [facility] Neutrophils % 55 % LAB HEMATOLOGY METHOD 06/29/2025 2:15 PM EDT [facility] Lymphocytes % 31 % LAB HEMATOLOGY METHOD 06/29/2025 2:15 PM EDT [facility] Monocytes % 8 % LAB HEMATOLOGY METHOD 06/29/2025 2:15 PM EDT [facility] Eosinophils % 5 % LAB HEMATOLOGY METHOD 06/29/2025 2:15 PM EDT [facility] Basophils % 1 % LAB HEMATOLOGY METHOD 06/29/2025 2:15 PM EDT [facility] Immature Granulocytes % 0 % LAB HEMATOLOGY METHOD 06/29/2025 2:15 PM EDT [facility] Neutrophils Absolute 4.69 1.60 - 6.10 10*3/uL LAB HEMATOLOGY METHOD 06/29/2025 2:15 PM EDT [facility] Lymphocytes Absolute 2.54 1.20 - 3.90 10*3/uL LAB HEMATOLOGY METHOD 06/29/2025 2:15 PM EDT [facility] Monocytes Absolute 0.63 0.30 - 0.90 10*3/uL LAB HEMATOLOGY METHOD 06/29/2025 2:15 PM EDT [facility] Eosinophils Absolute 0.40 0.00 - 0.50 10*3/uL LAB HEMATOLOGY METHOD 06/29/2025 2:15 PM EDT [facility] Basophils Absolute 0.06 0.00 - 0.10 10*3/uL LAB HEMATOLOGY METHOD 06/29/2025 2:15 PM EDT [facility] Immature Granulocytes Absolute 0.02 0.00 - 0.06 10*3/uL LAB HEMATOLOGY METHOD 06/29/2025 2:15 PM EDT [facility] Blood Venous blood specimen / Unknown Venipuncture / Unknown 06/29/2025 2:07 PM EDT 06/29/2025 2:12 PM EDT [facility] - 06/29/2025 2:15 PM EDT Therapeutic decision making should be based on absolute values, rather than percentages. us Steve Veloz MD LAB BLOOD ORDERABLES Final R esult [facility] [address] [place] [address] * Prealbumin, Plasma (06/29/2025 2:07 PM EDT) Only the most recent of2 resultswithin the time period is included. Prealbumin, Plasma 20.0 20.0 - 41.0 mg/dL 06/29/2025 3:46 PM EDT [facility] Blood Venous blood specimen / Unknown Venipuncture / Unknown 06/29/2025 2:07 PM EDT 06/29/2025 3:10 PM EDT us Steve Veloz MD LAB BLOOD ORDERABLES Final R esult Performing Organization Address [facility] Co de Phone Number [facility] [address] [place] [address] * Comprehensive Metabolic Panel, Plasma (06/29/2025 2:07 PM EDT) Only the most recent of3 resultswithin the time period is included. Glucose, Plasma 86 74 - 99 mg/dL 06/29/2025 3:46 PM EDT [facility] BUN, Plasma 14 8 - 23 mg/dL 06/29/2025 3:46 PM EDT [facility] Creatinine, Plasma 0.64 0.60 - 1.10 mg/dL 06/29/2025 3:46 PM EDT [facility] BUN/Creatinine Ratio 22 06/29/2025 3:46 PM EDT [facility] Sodium, Plasma 141 136 - 145 mmol/L 06/29/2025 3:46 PM EDT [facility] Potassium, Plasma 3.9 3.6 - 4.9 mmol/L 06/29/2025 3:46 PM EDT [facility] Chloride, Plasma 104 97 - 107 mmol/L 06/29/2025 3:46 PM EDT [facility] CO2, Plasma 25 22 - 29 mmol/L 06/29/2025 3:46 PM EDT [facility] Anion Gap 12 6 - 16 mmol/L 06/29/2025 3:46 PM EDT [facility] Total Calcium, Plasma 9.4 8.9 - 10.2 mg/dL 06/29/2025 3:46 PM EDT [facility] Total Protein 6.8 6.3 - 7.9 g/dL 06/29/2025 3:46 PM EDT [facility] Albumin, Plasma 4.0 3.5 - 5.2 g/dL 06/29/2025 3:46 PM EDT [facility] AST, Plasma 31 10 - 35 U/L 06/29/2025 3:46 PM EDT [facility] Comment:Hemolyzed, result ma y be falsely increased. ALT, Plasma 19 10 - 35 U/L 06/29/2025 3:46 PM EDT [facility] Alkaline Phosphatase, Plasma 136 46 - 142 U/L 06/29/2025 3:46 PM EDT [facility] Total Bilirubin, Plasma 0.2 0.2 - 1.1 mg/dL 06/29/2025 3:46 PM EDT [facility] eGFRcr 92.3 mL/min/1.7 3m*2 06/29/2025 3:46 PM EDT [facility] Comment:Reported eGFRcr in m L/min/1.73m2 is based the CKD-EPI 2020 equation that does not use a race coefficient. Blood Venous blood specimen / Unknown Venipuncture / Unknown 06/29/2025 2:07 PM EDT 06/29/2025 3:10 PM EDT us Steve Veloz MD LAB BLOOD ORDERABLES Final R esult [facility] [address] [place] [address] * (ABNORMAL) CBC W/O Differential (06/16/2025 11:53 AM EDT) Only the most recent of2 resultswithin the time period is included. WBC Count 9.69 3.70 - 10.30 10*3/uL LAB HEMATOLOGY METHOD 06/16/2025 12:50 PM EDT [facility] RBC Count 4.08 3.90 - 5.20 10*6/uL LAB HEMATOLOGY METHOD 06/16/2025 12:50 PM EDT [facility] HGB 12.4 11.2 - 15.7 g/dL LAB HEMATOLOGY METHOD 06/16/2025 12:50 PM EDT [facility] HCT 38.0 34.0 - 45.0 % LAB HEMATOLOGY METHOD 06/16/2025 12:50 PM EDT [facility] Platelet Count 613(H) 155 - 369 10*3/uL LAB HEMATOLOGY METHOD 06/16/2025 12:50 PM EDT [facility] MCV 93 79 - 98 fL LAB HEMATOLOGY METHOD 06/16/2025 12:50 PM EDT [facility] MCH 30.4 26.0 - 32.0 pg LAB HEMATOLOGY METHOD 06/16/2025 12:50 PM EDT [facility] MCHC 32.6 30.7 - 35.5 g/dL LAB HEMATOLOGY METHOD 06/16/2025 12:50 PM EDT [facility] RDW 13.6 11.5 - 14.5 % LAB HEMATOLOGY METHOD 06/16/2025 12:50 PM EDT [facility] MPV 11.2 8.8 - 12.5 fL LAB HEMATOLOGY METHOD 06/16/2025 12:50 PM EDT [facility] nRBC 0.0 <=0.0 per 100 WBCs LAB HEMATOLOGY METHOD 06/16/2025 12:50 PM EDT [facility] Blood Venous blood specimen / Unknown Venipuncture / Unknown 06/16/2025 11:53 AM EDT 06/16/2025 12:24 PM EDT Reina Ortega OPERATING SYSTEMS SPECIALIST LAB BLOOD ORDERABLES Fin al Result [facility] [address] [place] [address] * Phosphorus, Plasma (06/08/2025 3:59 AM EDT) Phosphorus, Plasma 4.1 2.5 - 4.5 mg/dL 06/08/2025 4:52 AM EDT [facility] Blood Venous blood specimen / Unknown Venipuncture / Unknown 06/08/2025 3:59 AM EDT 06/08/2025 4:23 AM EDT us Steve Veloz MD LAB BLOOD ORDERABLES Final R esult [facility] [address] [place] [address] * (ABNORMAL) Magnesium, Plasma (06/08/2025 3:59 AM EDT) Magnesium, Plasma 1.6(L) 1.9 - 2.4 mg/dL 06/08/2025 4:52 AM EDT [facility] Blood Venous blood specimen / Unknown Venipuncture / Unknown 06/08/2025 3:59 AM EDT 06/08/2025 4:23 AM EDT us Steve Veloz MD LAB BLOOD ORDERABLES Final R esult Performing Organization Address [facility] Co de Phone Number [facility] [address] [place] [address] from Last 3 Months Insurance MEDICARE GENERIC COMMERCIAL Advance Directives Documents on File Type Date Recorded Patient Environmental Planner Expl anation Advance Directives and Living Will 05/25/2025 Power of Transit Authority Police Officer 05/25/2025 * Full Code (Latest Code Status on File) Date Activated Date Inactivated Comments 05/31/2025 4:54 PM 06/08/2025 4:32 PM Question Answer Comments I have reviewed the capacity from the link above and, if needed, have updated to appropriate status: Yes Care Teams County Sheriff Relationship Specialty Start Date End Date Efrain Angeles MD [address] [place] [address] PCP - General 04/03/24
--- OUTSIDE RECORDS SUMMARY | 2025-09-07 07:53 | XMS_ITS | Clinical Summary ---
Author Organization [employer] ([place], [place], [place], [place], [place]) Address [address] [place] [address] Care Team Providers Care Behavioral Pediatrician Name Role Phone Unavailable Primary Care Provider [...] family history of breast cancer COMPARISON STUDIES: [facility] [phone]; no significant change. FINDINGS: Craniocaudal and mediolateral [...] annual screening mammography. At our facility, a [place] marker is positioned over a visible skin [...] family history of breast cancer COMPARISON STUDIES: [facility] [phone]; no significant change. FINDINGS: Craniocaudal and mediolateral [...] annual screening mammography. At our facility, a tel[place] marker is positioned over a visible skin [...] Health Maintenance Insurance MEDICARE [place] [address] [place] [address]
--- OUTSIDE RECORDS SUMMARY | 2025-09-07 07:53 | XMS_ITS | Encounter Summary ---
Author Organization Healthcare Address [address] [place] [address] Care Team Providers Care Compensator Worker Name Role Phone Nate Mills MD Primary Care Provider [phone] Efrain Angeles MD Primary Care Provider [phone] Encounter Details Date Type Department Care Team (Late st Contact Info) Description 03/29/2023 Orders Only [facility] [address] [place] [phone] Ebony Albrecht MD [address] [phone] Social History Tobacco Use Types [...] - 4.7 ng/mL 03/29/2023 9:59 AM EDT [facility] Comment: This test was performed using the Abdelrahman Awilda E801 electrochemiluminescent method. Values obtained from different assay methods cannot be used interchangeably. . 03/29/2023 9:07 AM EDT 03/29/2023 9:22 AM EDT us Ebony Albrecht MD LAB BLOOD ORDERABLES Final Re sult [facility] [address] [place] [address], documented in this encounter Visit Diagnoses Not on filedocumented in this encounter Care Teams Compensator Worker Relationship Specialty Start Date End Date Nate Mills MD [address] [facility] [address] [place] [address] PCP - General 09/23/20 04/02/24 Efrain Angeles MD [address] [facility] [address] [place] [address] PCP - General 04/03/24 documented as of this encounter
--- OUTSIDE RECORDS SUMMARY | 2025-09-07 07:53 | XMS_ITS | Encounter Summary ---
Author Organization Healthcare Address [address] [place] [address] Care Team Providers Care Assistant Principal Name Role Phone Nate Mills MD Primary Care Provider [phone] Efrain Angeles MD Primary Care Provider [phone] Encounter Details Date Type Department Care Team ([facility] st Contact Info) Description 02/20/2024 Orders Only External Location [address] [place] [address] Provider, External Social History Tobacco Use Types [...] filedocumented in this encounter Care Teams Assistant Principal Relationship Specialty Start Date End Date Nate Mills MD [address] [place], [place] [id number] PCP - General 09/23/20 04/02/24 Efrain Angeles MD [address] [place], [place] [address] PCP - General 04/03/24 documented as of this encounter
--- OUTSIDE RECORDS SUMMARY | 2025-09-07 07:53 | XMS_ITS | Encounter Summary ---
Author Organization Healthcare Address [address] [place] [address] Care Team Providers Care Toppiece Chopper Name Role Phone Nate Mills MD Primary Care Provider [phone] Efrain Angeles MD Primary Care Provider [phone] Encounter Details Date Type Department Care Team (Late st Contact Info) Description 03/14/2021 Orders Only [facility] [address] [place] [phone] Efrain La, KOFI [address] [place] [address] Social History Tobacco Use Types Packs/Day Years [...] EDT) External D-Dimer 1.12(H) <0.50 mcg/mL FEU [facility] Comment: The D-Dimer test is [...] 11:295(2):199-207] For additional information, please refer to: http://education.[employer]faq/MVO179 (This link is being provided for informational/ educational purposes only) TEST PERFORMED AT: [facility] [place] [address] [place] [address] HARVINDER CULVER M.D. 03/14/2021 1:48 PM EDT 03/14/2021 2:38 PM EDT us Efrain KIRBY LAB BLOOD ORDERABLES Final R esult [facility] [address] [place] [address], documented in this encounter Visit Diagnoses Not on filedocumented in this encounter Care Teams Toppiece Chopper Relationship Specialty Start Date End Date Nate Mills MD [address] [facility] [address] [place] [address] PCP - General 09/23/20 04/02/24 Efrain Angeles MD [address] [facility] [address] [facility] [place] [id number] PCP - General 04/03/24 documented as of this encounter
--- OUTSIDE RECORDS SUMMARY | 2025-09-07 07:53 | XMS_ITS | Referral Summary ---
Author Organization [employer] ([place], [place], [place], [place], [place]) Address [address] [place] [address] Care Team Providers Care Capacity Management Specialist Name Role Phone Unavailable Primary Care [...] family history of breast cancer COMPARISON STUDIES: [facility] [phone]; no significant change. FINDINGS: Craniocaudal and mediolateral [...] annual screening mammography. At our facility, a [place] marker is positioned over a visible skin [...] family history of breast cancer COMPARISON STUDIES: [facility] [phone]; no significant change. FINDINGS: Craniocaudal and mediolateral [...] annual screening mammography. At our facility, a [place] marker is positioned over a visible skin [...] for the next mammogram. Sandrine Mckeon MD [facility] MAMMOGRAPHY ORDERABLES F inal Result from Last 3 Months or Most Recently Relevant to Health Maintenance Insurance MEDICARE [place] [address]
--- OUTSIDE RECORDS SUMMARY | 2025-09-07 07:53 | XMS_ITS | Encounter Summary ---
Author Organization Healthcare Address [address] [place] [address] Care Team Providers Care Crepe Laminator Operator Name Role Phone Nate Mills MD Primary Care Provider [phone] Efrain Angeles MD Primary Care Provider [phone] Encounter Details Date Type Department Care Team (Late st Contact Info) Description 03/20/2021 Orders Only [facility] [address] [place] [phone] Ebony Albrecht MD [address] [phone] Social History Tobacco Use Types [...] External WBC 10.7 3.8 - 10.8 K/uL [facility] External Red Blood Cell (RBC) 4.31 3.80 - 5.20 M/uL [facility] External Hemoglobin 13.7 12.0 - 16.0 G/DL [facility] External Hematocrit 39.4 35.0 - 47.0 % [facility] External MCV 91 80 - 100 fL [facility] External MCH 32 26 - 35 PG [facility] External MCHC 35 32 - 36 G/DL [facility] External RDW 13.1 11.0 - 15.0 % [facility] External Mean Platelet Volume 9.4 6.2 - 10.5 fL [facility] External Platelets 264 130 - 400 K/uL [facility] External Neutrophil# 6.0 1.6 - 8.4 K/uL [facility] External Lymphocyte# 2.8 0.4 - 5.1 K/uL [facility] External Absolute Monocyte (Abs Mclennan) 0.7 0.0 - 1.2 K/uL [facility] External Eosinophils# 1.1(H) 0.0 - 0.8 K/uL [facility] External Baso# 0.1 0.0 - 0.3 K/uL [facility] External Neutrophils % 56.2 42.0 - 78.0 % [facility] External Lymphocyte % 26.2 11.0 - 47.0 % [facility] External Monocyte % 6.2 0.0 - 11.0 % [facility] External Eosinophil% 10.6(H) 0.0 - 7.0 % [facility] External Basophil % 0.8 0.0 - 3.0 % [facility] External Nucleated RBC%-Auto 0.0 0.0 - 0.9 % [facility] External Nucleated RBC Absolute 0.00 Not Estab. K/uL [facility] 03/20/2021 9:07 AM EDT 03/20/2021 9:25 AM EDT us Ebony Albrecht MD LAB BLOOD ORDERABLES Final Re sult [facility] [address] [place] [address], documented in this encounter Visit Diagnoses Not on filedocumented in this encounter Care Teams Crepe Laminator Operator Relationship Specialty Start Date End Date Nate Mills MD [address] [facility] [address] [place] [address] PCP - General 09/23/20 04/02/24 Efrain Angeles MD [address] [facility] [address] [place] [address] PCP - General 04/03/24 documented as of this encounter
--- OUTSIDE RECORDS SUMMARY | 2025-09-07 07:53 | XMS_ITS | Encounter Summary ---
Author Organization Healthcare Address [address] [place] [address] Care Team Providers Care Security Solutions Architect Name Role Phone Nate Mills MD Primary Care Provider [phone] Efrain Angeles MD Primary Care Provider [phone] Encounter Details Date Type Department Care Team (Late st Contact Info) Description 03/29/2023 Orders Only [facility] [address] [place] [address] Ebony Albrecht MD [address] [address] Social History Tobacco Use Types [...] 74 - 100 mg/dL 03/29/2023 9:52 AM [facility] External BUN 16 6 - 20 mg/dL 03/29/2023 9:52 AM [facility] External Creatinine Blood 0.69 0.50 - 0.95 mg/dL 03/29/2023 9:52 AM [facility] External BUN/Creat Ratio 23(H) 10 - 20 (calc) 03/29/2023 9:52 AM [facility] External Sodium 140 136 - 145 mmol/L 03/29/2023 9:52 AM [facility] External Potassium 3.9 3.4 - 5.0 mmol/L 03/29/2023 9:52 AM [facility] External Chloride 102 98 - 107 mmol/L 03/29/2023 9:52 AM [facility] External Carbon Dioxide 28 22 - 31 mmol/L 03/29/2023 9:52 AM [facility] External Anion Gap (AG) 10 7 - 25 (calc) 03/29/2023 9:52 AM [facility] External Calcium 9.7 8.6 - 10.2 mg/dL 03/29/2023 9:52 AM [facility] External Total Protein 7.4 6.4 - 8.3 g/dL 03/29/2023 9:52 AM [facility] External Albumin 4.4 3.5 - 5.2 g/dL 03/29/2023 9:52 AM [facility] External Globulin 3.0 1.5 - 4.5 023 9:52 AM [facility] External Albumin/Globulin Ratio 1.5 1.1 - 2.5 (calc) 03/29/2023 9:52 AM [facility] External Bilirubin Total 0.6 0.1 - 1.2 mg/dL 03/29/2023 9:52 AM [facility] External Alkaline Phosphatase 107 30 - 121 U/L 03/29/2023 9:52 AM [facility] External AST (SGOT) 29 0 - 32 U/L 03/29/2023 9:52 AM [facility] External ALT (SGPT) 36(H) 0 - 33 U/L 03/29/2023 9:52 AM EDT [facility] External Estimated GFR 91 >=60 03/29/2023 9:52 AM EDT [facility] Comment: NOTE New calculation for GFR (CKD-EPI 2020) is formulated without race adjustment factors at the recommendation of the National Kidney Foundation and [place] [employer]ph[employer]. This calculation has not been validated in women. For pediatric patients refer to https://www.kidney.org/professionals/KDOQI/gfr_calculatorPed 03/29/2023 9:07 AM EDT 03/29/2023 9:20 AM EDT us Ebony Albrecht MD LAB BLOOD ORDERABLES Final Re sult [facility] [address] [place] [address], documented in this encounter Visit Diagnoses Not on filedocumented in this encounter Care Teams Security Solutions Architect Relationship Specialty Start Date End Date Nate Mills MD [address] [facility] [place] [facility] [address] [place] [address] PCP - General 09/23/20 04/02/24 Efrain Angeles MD [address]10 [facility] [address] [place] [address] PCP - General 04/03/24 documented as of this encounter
--- OUTSIDE RECORDS SUMMARY | 2025-09-07 07:53 | XMS_ITS | Encounter Summary ---
Author Organization Healthcare Address [address] [place] [address] Care Team Providers Care Sprayer Machine Name Role Phone Nate Mills MD Primary Care Provider [phone] Efrain Angeles MD Primary Care Provider [phone] Encounter Details Date Type Department Care Team (Late st Contact Info) Description 03/20/2021 Orders Only [facility] [address] [place] [phone] Ebony Albrecht MD [address] [address] Social History Tobacco Use Types [...] External Glucose 91 74 - 100 mg/dL [facility] External BUN 18 6 - 20 mg/dL [facility] External Creatinine Blood 0.69 0.50 - 0.95 mg/dL [facility] External BUN/Creat Ratio 26(H) 10 - 20 (calc) [facility] External Sodium 143 136 - 145 mmol/L [facility] External Potassium 3.8 3.4 - 5.0 mmol/L [facility] External Chloride 104 98 - 107 mmol/L [facility] External Carbon Dioxide 29 22 - 31 mmol/L [facility] External Anion Gap (AG) 10 7 - 25 (calc) [facility] External Calcium 10.0 8.6 - 10.2 mg/dL [facility] External Total Protein 6.8 6.4 - 8.3 g/dL [facility] External Albumin 4.2 3.5 - 5.2 g/dL [facility] External Globulin 2.6 1.5 - 4.5 g/dL (calc) [facility] External Albumin/Globulin Ratio 1.6 1.1 - 2.5 (calc) [facility] External Bilirubin Total 0.4 0.1 - 1.2 mg/dL [facility] External Alkaline Phosphatase 98 35 - 106 U/L [facility] External AST (SGOT) 21 0 - 32 U/L [facility] External ALT (SGPT) 16 0 - 33 U/L [facility] External EGFR (If AFR/AM) 101 >=60 [facility] External Estimated GFR 87 >=60 [facility] Comment: NOTE Chronic kidney disease [...] [facility] [address] [place] [address], documented in this encounter Visit Diagnoses Not on filedocumented in this encounter Care Teams Sprayer Machine Relationship Specialty Start Date End Date Nate Mills MD [address] [facility] [address] [place], [place] [id number] PCP - General 09/23/20 04/02/24 Efrain Angeles MD [address] [facility] [address] [address] PCP - General 04/03/24 documented as of this encounter
--- OUTSIDE RECORDS SUMMARY | 2025-09-07 07:53 | XMS_ITS | Encounter Summary ---
Author Organization Healthcare Address [address] [place] [address] Care Team Providers Care Melter Helper Name Role Phone Nate Mills MD Primary Care Provider [phone] Efrain Angeles MD Primary Care Provider [phone] Encounter Details Date Type Department Care Team (Late st Contact Info) Description 03/20/2021 Orders Only [facility] [address] [place] [phone] Ebony Albrecht MD [address] [address] Social History Tobacco Use Types [...] Antigen 5.0(H) 0.0 - 4.7 ng/mL [facility] Comment: This test was performed using the Abdelrahman Awilda E801 electrochemiluminescent method. Values obtained from different assay methods cannot be used interchangeably. . 03/20/2021 9:07 AM EDT 03/20/2021 9:50 AM EDT us Ebony Albrecht MD LAB BLOOD ORDERABLES Final Re sult [facility] [address] [place] [address], documented in this encounter Visit Diagnoses Not on filedocumented in this encounter Care Teams Melter Helper Relationship Specialty Start Date End Date Nate Mills MD 1210 [facility] [address] [place] [address] PCP - General 09/23/20 04/02/24 Efrain Angeles MD [address] [facility] [address] [place] [address] PCP - General 04/03/24 documented as of this encounter
--- OUTSIDE RECORDS SUMMARY | 2025-09-07 07:53 | XMS_ITS | Encounter Summary ---
Author Organization Healthcare Address [address] [place] [address] Care Team Providers Care Real Estate Branch Manager Name Role Phone Efrain Angeles MD Primary Care Provider [phone] Encounter Details Date Type Department Care Team ([facility] st Contact Info) Description 06/25/2025 Telephone [facility] [address] [place] [address] Steve Veloz MD [address] [address] Social History Tobacco Use Types Packs/Day Years [...] in a correction (including now)? No 06/01/2025 [facility] Utilities [...] optimal time of day to reach caller: [phone] Note: Please do not reply to this message. Follow-up communication and further actions as a result of this message need to be communicated with the patient directly, if the patient is not active onMyChart. If the patient is active on MyChart, they will receive notification of the communication/outcome via [employer]. documented in this encounter Plan of Treatment [...] documented as of this encounter Care Teams Real Estate Branch Manager Relationship Specialty Start Date End Date Efrain Angeles MD [address] [place] [address] PCP - General 04/03/24 documented as of this encounter
--- OUTSIDE RECORDS SUMMARY | 2025-09-07 07:53 | XMS_ITS | Encounter Summary ---
Author Organization Healthcare Address [address] [place] [address] Care Team Providers Care Bolt Cutter Name Role Phone Nate Mills MD Primary Care Provider [phone] Efrain Angeles MD Primary Care Provider [phone] Encounter Details Date Type Department Care Team (Late st Contact Info) Description 03/14/2021 Orders Only [facility] [address] [place] [phone] Efrain La, KOFI [address] [place] [address] Social History Tobacco Use Types Packs/Day Years [...] Sedimentation Rate 25 0 - 29 MM/HR [facility] 03/14/2021 1:48 PM EDT 03/14/2021 2:10 PM EDT Efrain KIRBY LAB BLOOD ORDERABLES Final R esult [facility] [address] [place] [address], documented in this encounter Visit Diagnoses Not on filedocumented in this encounter Care Teams Bolt Cutter Relationship Specialty Start Date End Date Nate Mills MD [address] [facility] [address] [place] [address] PCP - General 09/23/20 04/02/24 Efrain Angeles MD 1210 [facility] [address] [place], [place] [id number] PCP - General 04/03/24 documented as of this encounter
--- OUTSIDE RECORDS SUMMARY | 2025-09-07 07:55 | XMS_ITS | Patient Health Record ---
Author Organization [facility] Address [address] [place] [id number] Care Team Providers Care Computer Forensic Specialist Name Role Phone Kathryn Angeles Primary Care Provider [phone] Juani Saleem Unavailable [phone] Allergies Allergen (clinical drug ingredient) Drug/Non Drug [...] 203 Performing Lab: Notes/Report: Test performed by [facility] [address] [facility] , [address], [place] [address] Rafi Forbes MD, Nutrition Services Aide CLIA: [id number] Sodium 139 135-145 mmol/L Potassium 5.3 3.5-5.3 [...] Interpretation: Performing Lab: Notes/Report: Test performed by [facility], [address] , [address], [place] [address] Rafi Forbes MD, Nutrition Services Aide CLIA: [id number] Sodium 141 135-145 mmol/L Potassium 4.9 3.5-5.3 mmol/L Chloride 105 97-108 mmol/L CO2 24 20-32 mmol/L Glucose 105 65-99 mg/dL BUN 16 8-23 mg/dL Creatinine 0.71 0.50-1.00 mg/dL Calcium 9.9 8.6-10.4 mg/dL eGFR by Creatinine 88 >59 mL/min/1.73m2 P-Comprehensive Metabolic Pa macario (CMP) Reviewed date:06/29/2025 08:40:29 AM Interpretation:Alkaline Phosphatase 150 Performing Lab: Notes/Report: Test performed by [facility], [address] , [address], [place] [address] Rafi Forbes MD, Nutrition Services Aide CLIA: [id number] Sodium 139 135-145 mmol/L Potassium 4.2 3.5-5.3 [...] 0.3 <0.2-1.2 mg/dL A/G Ratio 1.9 1.1-2.5 H-CBC Reviewed date:04/13/2025 11:35:15 AM Interpretation: Performing [...] K 3.6 3.5-5.1 mmoL/L Delta: 2.8 on 04/06/25 CL 107 98-107 mmol/L CO2 23 22.0-30.0 mmol/L GAP 13.6 5-15 mEq/L BUN 3 7-17 mg/dl Delta: 7 on 04/06/25-47 CREATT 0.70 0.52-1.04 mg/dl CRCLE 57 50-200 [...] BUN 7 7-17 mg/dl Delta: 13 on 04/05/25-44 CREATT 0.60 0.52-1.04 mg/dl CRCLE 55 50-200 mL/min GFRAA 118 >60 ML/MIN EGFR 97 >60 ml/min GLU 114 74-100 mg/dl CA 8.4 8.4-10.2 mg/dl BILIT 0.5 0.2-1.3 mg/dl AST 21 14-36 U/L Delta: 30 on 04/03/25-855 ALT 20 12-78 U/L Delta: 46 on 04/03/25-855 TP 5.9 6.3-8.2 g/dl ALB 3.0 3.5-5.0 [...] 0.1 0-0.2 K/mm3 NRBC# 0 IG# 0.24 CBC Venipuncture (in house) Reviewed date:09/08/2024 10:11:08 [...] AGRATIO 1.7 1.1-1.8 ALP 91 38-126 U/L CBC Fingerstick (in house) Reviewed date:01/15/2025 08:37:04 [...] 124 Performing Lab: Notes/Report: Test performed by [facility] [address] [place] [address] , [address], [place] [address] Rafi Forbes MD, Nutrition Services Aide CLIA: [id number] Sodium 140 135-145 mmol/L Potassium 4.2 3.5-5.3 [...] Interpretation:Normal Performing Lab: Notes/Report: Test performed by [facility] [address] [place] [address] , [address], [place] [address] Rafi Forbes MD, Nutrition Services Aide CLIA: [id number] Lipase 25.6 13.0-60.0 u/L Ultrasound : Abdomen, Right Upper Quadrant Reviewed date:02/05/2025 01:15:25 PM Interpretation:fatty liver, sludge and stones Performing Lab: Notes/Report: fatty liver, sludge and stones Medications Medication SIG (Take, Route, Frequency, Duration) Notes Start Date End Date Status Triamcinolone Acetonide 0.1 % APPLY CREAM EXTERNALLY TWICE DAILY; Duration: 30 Not-Taking Albuterol Sulfate HFA 108 (90 Base) MCG/ACT 1 puff as needed Inhalation four times a day as needed Active Align 4 MG 1 cap(s) orally once a day; Duration: 28 day(s) 12/24/2022 Not-Taking Pantoprazole Sodium 20 MG 1 tablet 1/2 t o 1 hour before morning meal Orally Once a day Not-Taking Aspirin Low [...] Saturday, Sat, Saturday; Duration: 30 days Not-Taking Tolterodine Tartrate 2 MG 1 tablet Orall y Twice a day Active Lidocaine 5 % 1 patch remove after 12 hours Externally Once a day; Duration: 30 days Active Famotidine 20 MG 1 tablet at bedtime as needed Orally Once a day Active Losartan Potassium 50 MG Take 1/2 (one-h rosalee) tablet by mouth once daily; Duration: 90 Not-Taking Capecitabine 500 MG as directed Orally Active Gemtesa 75 MG 1 tablet Orally Once a day Not-Taking Metoclopramide HCl 10 MG 1 tablet before meals Orally every 8 hours Not-Taking Immunizations Vaccine Route Administration Date Status Comme [...] W/U Status Risk Notes Problem Essential hypertension (10131322) Essential (primary) hypertension (I10) Active confirmed Problem Leukocytosis (165960804) Leukocytosis (D72.829) Active confirmed Problem Sciatica (25424682) Sciatica (M54.30) Active co nfirmed Problem Essential hypertension (02319466) Essential hypertension (I10) Active confirmed Problem Diverticulitis (41282168) Diverticulitis (K57.92) Active confirmed Problem Alopecia (57024873) Hair loss (L65.9) Active co nfirmed Problem Bandemia (428447866) Bandemia (D72.825) Active confirmed Problem Mixed hyperlipidemia (751432122) Mixed hyperlipidemia (E78.2) Active confirmed Problem Hyperlipidemia (40782130) Other hyperlipidemia (E78.4) Active confirmed Problem Chronic pain (67947816) Other chronic pain (G89.29) Active confirmed Problem Acute non-ST segment elevation myocardial infarction (918662267) Non-ST elevation (NSTEMI) myocardial infarction (I21.4) Active confirmed Problem Chronic maxillary sinusitis (30202768) Chronic maxillary sinusitis (J32.0) Active confirmed Problem Centrilobular emphysema (98431542) Centrilobular emphysema (J43.2) Active confirmed Problem Anosmia (09366548) Anosmia (R43.0) Active confi rmed Problem Prosthetic breast implant (physical object) (2979114) Breast implant status (Z98.82) Active confirmed Problem Constipation by delayed colonic transit (78050121) Constipation by delayed colonic transit (K59.01) Active confirmed Problem Myositis (86456704) Myofasciitis (M60.9) Active confirmed Problem Lipomatosis (196854009) 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) Active confirmed Problem History of cholecystectomy (958851553) Status post cholecystectomy (Z90.49) Active confirmed Problem Pulmonary atelectasis (38454961) Pulmonary atelectasis (J98.11) Active confirmed Problem History of repair of hip joint (786889229) Hip joint replacement status (Z96.649) Active confirmed Problem Leukocytosis (676643154) Leukocytosis, unspecified (D72.829) Active confirmed Problem Spondylolisthesis (476598812) Spondylolisthesis (M43.10) Active confirmed Problem Aortic valve sclerosis (79864539) Aortic valve sclerosis (I35.8) Active confirmed Problem Postprocedural states (071977121) History of back surgery (Z98.890) Active confirmed Problem Mixed incontinence (381887184) 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.46) Active confirmed Problem Calcific coronary arteriosclerosis (02680084) Calcific coronary arteriosclerosis (I25.10) Active confirmed Problem Arthralgia of temporomandibular joint (74802218) 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) Active confirmed Problem Pedal edema (219673951) Pedal edema (R60.0) Active confirmed Problem Moderate persist ent asthmatic bronchitis with exacerbation (J45.41) Active confirmed Problem History of colorectal cancer (0485558623) History of colorectal cancer (Z85.038) Active confirmed Problem Cyanosis (8534452) Extremity cya nosis (R23.0) Active confirmed Problem Breast implant rupture, initial encounter (T85.43XA) Active confirmed Problem Breast implant rupture, subsequent encounter (T85.43XD) Active confirmed Problem Chronic gastric ulcer with perforation but without obstruction (77282351) Gastric perforation (K25.5) Active confirmed Vital Signs Heart Rate 96 /min 08/30/2025 Blood pressure diastolic 68 mm Hg 08/30/2025 Height 66 in 08/30/2025 Blood pressure systolic 110 mm Hg 08/30/2025 Weight 134.8 lbs 08/30/2025 BMI 21.75 kg/m2 08/30/2025 Encounters Encounter Location Date Provider Diagnosis [facility] [address] [place] [id number] 09/07/2024 Kathryn Angeles Essential hypertensi on I10 ; Bronchitis J40 ; Diverticulitis K57.92 and Bandemia D72.825 [facility] [address] [place] [id number] 09/21/2024 Kathryn Angeles Essential hypertensi on I10 ; Centrilobular emphysema J43.2 and Bandemia D72.825 [facility] [address] [place] [id number] 11/23/2024 Kathryn Angeles Hair loss L65.9 and Essential hypertension I10 [facility] [address] [place] [id number] 02/01/2025 Kathryn Angeles Symptomatic cholelithiasis K80.20 [facility] [address] [place] [id number] 03/29/2025 Kathryn Angeles Essential hypertensi on I10 ; Status post cholecystectomy Z90.49 ; Other chronic pain G89.29 ; Centrilobular emphysema J43.2 ; History of colorectal cancer Z85.038 and BMI 24.0-24.9, adult Z68.24 [facility] [address] [place] [id number] 04/12/2025 Juani Saleem Chronic hypokalemia E87.6 ; Leukocytosis D72.829 ; Acute gastric ulcer with both hemorrhage and perforation K25.2 ; Essential hypertension I10 ; Mixed hyperlipidemia E78.2 ; Dercums disease E88.2 ; History of colorectal cancer Z85.038 ; Other chronic pain G89.29 ; Mixed stress and urge urinary incontinence N39.46 ; Postop check Z09 ; Pulmonary atelectasis J98.11 and BMI 23.0-23.9, adult Z68.23 [facility] [address] [place], [place] [id number] 05/03/2025 J Gabriel Angeles Carcinoma of gallbla dder C23 ; History of laparoscopic Josh patch repair of perforated peptic ulcer Z98.890 ; Mixed stress and urge urinary incontinence N39.46 ; Dermatitis L30.9 and BMI 23.0-23.9, adult Z68.23 [facility] [address] [place], [place] [id number] 05/17/2025 J Gabriel Angeles Adenocarcinoma of gallbladder C23 and History of laparoscopic Josh patch repair of perforated peptic ulcer Z98.890 [facility] [address] [place], [place] [id number] 06/28/2025 J Gabriel Angeles Adenosquamous carcin mike of gallbladder C23 ; Midline low back pain without sciatica, unspecified chronicity M54.50 and Acute rhinitis J00 [facility] [address] [place], [place] [id number] 08/30/2025 J Gabriel Angeles Gallbladder carcinom a C23 ; Status post cholecystectomy Z90.49 ; Gastric perforation K25.5 ; Essential (primary) hypertension I10 and BMI 21.0-21.9, adult Z68.21 [facility] [address] [place], [place] [id number] 01/14/2025 J Gabriel Angeles Dyspepsia R10.13 ; Centrilobular emphysema J43.2 and BMI 25.0-25.9,adult Z68.25 [facility] [address] [facility] [address] [place], [place] [id number] 09/24/2024 J Gabriel Angeles [facility] [address] [facility] [address] [place] [id number] 01/22/2025 J Gabriel Angeles [facility] [address] [facility] [address] [place] [id number] 02/05/2025 J Gabriel Angeles [facility] [address] [facility] [address] [place] [id number] 04/09/2025 J Gabriel Angeles [facility] [address] [place], [place] [id number] 04/12/2025 Juani Saleem Chronic hypokalemia E87.6 [facility] [address] [place] [id number] 04/19/2025 Kathryn Angeles [facility] [address] [place] [id number] 05/17/2025 Kathryn Angeles [facility] [address] [place] [id number] 06/09/2025 Kathryn Angeles [facility] [address] [place] [id number] 06/29/2025 Kathryn Angeles [facility] [address] [place] [id number] 08/10/2025 Kathryn Angeles Mixed hyperlipidemia E78.2 [facility] [address] [place], [place] [id number] 08/16/2025 Kathryn Angeles Assessments Encounter Date Diagnosis (ICD Code) Assessment Notes Treatment Notes Treatment Clinical Notes Section Notes 09/07/2024 Essential hypertension (ICD-10 - I10) 09/21/2024 [...] WBCs. 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 López 08/30/2025 Gastric perforation (ICD-10 - K25.5) 06/28/2025 Acute rhinitis (ICD-10 - J00) 05/03/2025 Mixed stress and urge urinary incontinence (ICD-10 - N39.46) 09/21/2024 Bandemia (ICD-10 - D72.825) 04/12/2025 Acute gastric ulcer with both hemorrhage and perforation (ICD-10 - K25.2) 03/29/2025 Other chronic pain (ICD-10 - G89.29) 01/14/2025 BMI 25.0-25.9,adult (ICD-10 - Z68.25) 09/07/2024 Diverticulitis (ICD-10 - K57.92) 09/07/2024 Bandemia (ICD-10 - D72.825) 03/29/2025 Centrilobular emphysema (ICD-10 - J43.2) 04/12/2025 Essential hypertension (ICD-10 - I10) 05/03/2025 Dermatitis (ICD-10 - L30.9) 08/30/2025 Essential (primary) hypertension (ICD-10 - I10) 08/30/2025 BMI 21.0-21.9, adult (ICD-10 - Z68.21) 05/03/2025 BMI 23.0-23.9, adult (ICD-10 - Z68.23) 04/12/2025 Mixed hyperlipidemia (ICD-10 - E78.2) 03/29/2025 History of colorectal cancer (ICD-10 - Z85.038) 04/12/2025 Dercums disease (ICD-10 - E88.2) 03/29/2025 BMI 24.0-24.9, adult (ICD-10 - Z68.24) 04/12/2025 History of colorectal cancer (ICD-10 - [...] [address], [place], [id number], Insurance Providers Payer Name Payer Address Payer Phone Subscriber Number Group Number Insured Name Patient Relationship to Insured Coverage Start Date Coverage End Date MEDICARE PART B [address] [address] [place] [address] [id number] Erinbrodie dubonAlyssia Self - patient is the insured [employer] [address] [address] [place], [place] [id number] [phone] [id number] Alyssia Hopson Self - patient is the insured Medications [...] 03/17/19 Colonoscopy, Dr. Frazier 09/10/2019 Lap shannan/Dr. Frazier, with subsequent Dx o f CARCINOMA OF GALLBLADDER. 03/25/2025 perforated prepyloric gastri c ulcer with repair using a Josh patch/ Dr. Patino 04/01/2025 CA 19.9 elevated at 49. 04/21/2025 Hospitalization History Reason Date(Month/Year) [facility] with perforated ulcer with repair wi th Josh patch/Dr. Patino 04/01-04/08/2025 [facility] ER-fall 06/06 kidney stone 02/2011
--- OUTSIDE RECORDS SUMMARY | 2025-09-07 07:55 | XMS_ITS | Encounter Summary ---
Author Organization Healthcare Address [address] [place] [address] Care Team Providers Care Craft Superintendent Name Role Phone Efrain Angeles MD Primary Care Provider [phone] Encounter Details Date Type Department Care Team ([facility] st Contact Info) Description 04/01/2025 Orders Only External Location [address] [place] [address] Marbin Cartwright, [address] [place] [address] Social History Tobacco Use Types Packs/Day Years [...] documented as of this encounter Care Teams Craft Superintendent Relationship Specialty Start Date End Date Efrain Angeles MD [address] [place] [address] PCP - General 04/03/24 documented as of this encounter
--- OUTSIDE RECORDS SUMMARY | 2025-09-07 07:55 | XMS_ITS | Encounter Summary ---
Author Organization Healthcare Address [address] [place] [address] Care Team Providers Care Twx Operator Name Role Phone Efrain Angeles MD Primary Care Provider [phone] Encounter Details Date Type Department Care Team ([facility] st Contact Info) Description 08/04/2025 Telephone [facility] [address] [place] [address] Steve Veloz MD [address] [address] Social History Tobacco Use Types Packs/Day Years [...] in a residential (including now)? No 06/01/2025 [facility] Utilities Answer Date Recorded In the [...] of the initial request. Best contact number: [phone] (mobile) Optimal time of day to reach [...] optimal time of day to reach caller: [phone] Note: Please do not reply to this [...] optimal time of day to reach caller: [phone] Note: Please do not reply to this message. Follow-up communication and further actions as a result of this message need to be communicated with the patient directly, if the patient is not active onMyChart. If the patient is active on MyChart, they will receive notification of the communication/outcome via [employer]jini. documented in this encounter Plan of Treatment [...] documented as of this encounter Care Teams Twx Operator Relationship Specialty Start Date End Date Efrain Angeles MD [address] [place] [address] PCP - General 04/03/24 documented as of this encounter
--- OUTSIDE RECORDS SUMMARY | 2025-09-07 07:55 | XMS_ITS | Encounter Summary ---
Author Organization [facility] Address [address] [place] [id number] Care Team Providers Care Stave Hewer Name Role Phone Efrain Angeles MD Primary Care Provider [phone] Encounter Details Date Type Department Care Team [...] Description 07/25/2026 1:15 PM EST Office Visit [facility] [address] [facility] [address] [place] [phone] Rita Lei, AUTOMOTIVE WARRANTY ADMINISTRATOR [address] [facility] [address] [place] [address] documented as of this encounter Visit Diagnoses Not on filedocumented in this encounter Care Teams Stave Hewer Relationship Specialty Start Date End Date Efrain Angeles MD [address] [facility] [address] [place] [address] PCP - General Family Medicine 07/16/22 documented as of this encounter
--- OUTSIDE RECORDS SUMMARY | 2025-09-07 07:55 | XMS_ITS | Encounter Summary ---
Author Organization Healthcare Address [address] [place] [address] Care Team Providers Care Patrol Police Sergeant Name Role Phone Nate Mills MD Primary Care Provider [phone] Efrain Angeles MD Primary Care Provider [phone] Encounter Details Date Type Department Care Team (Late st Contact Info) Description 03/14/2021 Orders Only [facility] [address] [place] [address] Efrain La, KOFI [address] [place], [place] [id number] Social History Tobacco Use Types Packs/Day Years [...] Protein 0.15 0.00 - 0.49 mg/dL [facility] 03/14/2021 1:48 PM EDT 03/14/2021 2:09 PM EDT us Efrain KIRBY LAB BLOOD ORDERABLES Final R esult [facility] [address] [place] [address], documented in this encounter Visit Diagnoses Not on filedocumented in this encounter Care Teams Patrol Police Sergeant Relationship Specialty Start Date End Date Nate Mills MD [address] [facility] [address] [place] [address] PCP - General 09/23/20 04/02/24 Efrain Angeles MD [address] [facility] [address] [place] [address] PCP - General 04/03/24 documented as of this encounter
--- OUTSIDE RECORDS SUMMARY | 2025-09-07 07:55 | XMS_ITS | Encounter Summary ---
Author Organization Healthcare Address [address] [place] [address] Care Team Providers Care Spindle Plumber Name Role Phone Efrain Angeles MD Primary Care Provider [phone] Encounter Details Date Type Department Care Team ([facility] st Contact Info) Description 03/01/2025 Orders Only External Location [address] [place] [address] Provider, External Social History Tobacco Use Types [...] documented as of this encounter Care Teams Spindle Plumber Relationship Specialty Start Date End Date Efrain Angeles MD [address] [place] [address] PCP - General 04/03/24 documented as of this encounter
--- OUTSIDE RECORDS SUMMARY | 2025-09-07 07:55 | XMS_ITS | Encounter Summary ---
Author Organization Healthcare Address [address] [place] [address] Care Team Providers Care Engineering Intern Name Role Phone Nate Mills MD Primary Care Provider [phone] Efrain Angeles MD Primary Care Provider [phone] Encounter Details Date Type Department Care Team (Late st Contact Info) Description 03/23/2022 Orders Only [facility] [address] [place] [phone] Ebony Albrecht MD [address] [address] Social History Tobacco Use [...] Carcinoembryonic Antigen 4.2 0.0 - 4.7 ng/mL [facility] Comment: This test was performed using the Abdelrahman Awilda E801 electrochemiluminescent method. Values obtained from different assay methods cannot be used interchangeably. . 03/23/2022 9:07 AM EDT 03/23/2022 9:25 AM EDT us Ebony Albrecht MD LAB BLOOD ORDERABLES Final Re sult [facility] [address] [place] [address], documented in this encounter Visit Diagnoses Not on filedocumented in this encounter Care Teams Engineering Intern Relationship Specialty Start Date End Date Nate Mills MD [address] [facility] [address] [place] [address] PCP - General 09/23/20 04/02/24 Efrain Angeles MD [address]10 [facility] [address] [place] [address] PCP - General 04/03/24 documented as of this encounter
--- OUTSIDE RECORDS SUMMARY | 2025-09-07 07:55 | XMS_ITS | Encounter Summary ---
Author Organization Healthcare Address [address] [place] [address] Care Team Providers Care Software Quality Assurance Specialist Name Role Phone Nate Mills MD Primary Care Provider [phone] Efrain Angeles MD Primary Care Provider [phone] Encounter Details Date Type Department Care Team (Late st Contact Info) Description 03/23/2022 Orders Only [facility] at [facility] [address] [place] [address] Ebony Albrecht MD [address] [address] Social History Tobacco Use Types [...] 116(H) 74 - 100 mg/dL [facility] External BUN 15 6 - 20 mg/dL [facility] External Creatinine Blood 0.67 0.50 - 0.95 mg/dL [facility] External BUN/Creat Ratio 22(H) 10 - 20 (calc) [facility] External Sodium 141 136 - 145 mmol/L [facility] External Potassium 3.3(L) 3.4 - 5.0 mmol/L [facility] External Chloride 103 98 - 107 mmol/L [facility] External Carbon Dioxide 27 22 - 31 mmol/L [facility] External Anion Gap (AG) 11 7 - 25 (calc) [facility] External Calcium 9.5 8.6 - 10.2 mg/dL [facility] External Total Protein 7.0 6.4 - 8.3 g/dL [facility] External Albumin 4.2 3.5 - 5.2 g/dL [facility] External Globulin 2.8 1.5 - 4.5 g/dL (calc) [facility] External Albumin/Globulin Ratio 1.5 1.1 - 2.5 (calc) [facility] External Bilirubin Total 0.4 0.1 - 1.2 mg/dL [facility] External Alkaline Phosphatase 104 30 - 121 U/L [facility] External AST (SGOT) 19 0 - 32 U/L [facility] External ALT (SGPT) 17 0 - 33 U/L [facility] External Estimated GFR 92 >=60 [facility] Comment: NOTE New calculation for GFR (CKD-EPI 2020) is formulated without race adjustment factors at the recommendation of the National Kidney Foundation and [place] [employer]ph[employer]. This calculation has not been validated in women. For pediatric patients refer to https://www.kidney.org/professionals/KDOQI/gfr_calculatorPed 03/23/2022 9:07 AM EDT 03/23/2022 9:25 AM EDT us Ebony Albrecht MD LAB BLOOD ORDERABLES Final Re sult [facility] [address] [id number], [place] [phone] documented in this encounter Visit Diagnoses Not on filedocumented in this encounter Care Teams Software Quality Assurance Specialist Relationship Specialty Start Date End Date Nate Mills MD [address] [facility] [address] [place] [address] PCP - General 09/23/20 04/02/24 Efrain Angeles MD [address] [facility] [address] [place] [address] PCP - General 04/03/24 documented as of this encounter
--- OUTSIDE RECORDS SUMMARY | 2025-09-07 07:55 | XMS_ITS | Encounter Summary ---
Author Organization Healthcare Address [address] [place] [address] Care Team Providers Care Marinator Name Role Phone Nate Mills MD Primary Care Provider [phone] Efrain Angeles MD Primary Care Provider [phone] Encounter Details Date Type Department Care Team (Late st Contact Info) Description 03/23/2022 Orders Only [facility] at [facility] [address] [place] [id number] Ebony Albrecht MD [address] [address] Social History Tobacco Use Types [...] External WBC 14.0(H) 3.8 - 10.8 K/uL [facility] External Red Blood Cell (RBC) 4.33 3.80 - 5.20 M/uL [facility] External Hemoglobin 13.3 12.0 - 16.0 G/DL [facility] External Hematocrit 39.2 35.0 - 47.0 % [facility] External MCV 91 80 - 100 fL [facility] External MCH 31 26 - 35 PG [facility] External MCHC 34 32 - 36 G/DL [facility] External RDW 13.2 11.0 - 15.0 % [facility] External Mean Platelet Volume 9.6 6.2 - 10.5 fL [facility] External Platelets 248 130 - 400 K/uL [facility] External Neutrophil# 9.3(H) 1.6 - 8.4 K/uL [facility] External Lymphocyte# 3.0 0.4 - 5.1 K/uL [facility] External Absolute Monocyte (Abs Bee) 0.7 0.0 - 1.2 K/uL [facility] External Eosinophils# 0.8 0.0 - 0.8 K/uL [facility] External Baso# 0.2 0.0 - 0.3 K/uL [facility] External Neutrophils % 66.7 42.0 - 78.0 % [facility] External Lymphocyte % 21.2 11.0 - 47.0 % [facility] External Monocyte % 5.1 0.0 - 11.0 % [facility] External Eosinophil% 5.8 0.0 - 7.0 % [facility] External Basophil % 1.2 0.0 - 3.0 % [facility] External Nucleated RBC%-Auto 0.1 0.0 - 0.9 % [facility] External Nucleated RBC Absolute 0.01 Not Estab. K/uL [facility] 03/23/2022 9:07 AM EDT 03/23/2022 9:25 AM EDT us Ebony Albrecht MD LAB BLOOD ORDERABLES Final Re sult [facility] [address] [place] [address], documented in this encounter Visit Diagnoses Not on filedocumented in this encounter Care Teams Marinator Relationship Specialty Start Date End Date Nate Mills MD [address] [facility] [address] [place] [address] PCP - General 09/23/20 04/02/24 Efrain Angeles MD [address] [facility] [address] [place] [address] PCP - General 04/03/24 documented as of this encounter
--- OUTSIDE RECORDS SUMMARY | 2025-09-07 07:55 | XMS_ITS | Clinical Summary ---
Author Organization [facility] Address [address] [place] [address] Care Team Providers Care Top Carrier Name Role Phone Efrain Angeles MD Primary Care Provider [phone] Allergies Active Allergy Reactions Criticality Noted Date [...] Description 07/12/2025 3:45 PM EDT Office Visit [facility] [address] [place] [address] Steve Correa MD Abnormal EKG [...] Description 07/25/2026 1:15 PM EST Office Visit [facility] [address] [facility] [address] [place] [address] Rita Lei, OIL PRODUCER [address] [facility] [address] [place], [place] [id number] Health Maintenance Due Date Last Done Comments [...] from the original note were not included. [facility], [address] [place], [address] [facility] NOTE Patient care team: [...] inferolateral leads Brother was a heavy smoker, [place] at 38. Sister had congenital heartdisease/rheumatic heart disease, CABG at 42 Biatrial enlargement, RV enlargement, grade 1 diastolic dysfunction Echo fall 2021 Right carotid bruit Carotid duplex 07/2022: No obstructive disease, antegrade vertebral flow Hypertension Cervical cancer treated at approximate age 29 Colon cancer treated at approximately age 59 Gallbladder cancer, status post laparoscopic surgery, lymph nodedissection, partial hepatectomy, [facility], 05/2025 Former tobacco use, quit 2003 [...] Final Result from Last 3 Months Insurance [facility] [place] [place] [place] [id number] MEDICARE A & B Care Teams Top Carrier Relationship Specialty Start Date End Date Efrain Angeles MD [address] [facility] [address] [place] [address] PCP - General Family Medicine 07/16/22
--- OUTSIDE RECORDS SUMMARY | 2025-09-07 07:55 | XMS_ITS | Encounter Summary ---
Author Organization Healthcare Address [address] [place] [address] Care Team Providers Care Relay Dispatcher Name Role Phone Efrain Angeles MD Primary Care Provider [phone] Encounter Details Date Type Department Care Team ([facility] st Contact Info) Description 08/25/2025 Telephone [facility] [address] [place] [phone] Sarah Alcantara, RN None None Social History Tobacco Use Types Packs/Day Years [...] any time in the past 12 m onths, were you homeless or living in a fdc (including now)? No 06/01/2025 [facility] Utilities Answer Date Recorded In [...] Notes * Telephone Encounter - Sarah Alcantara RN - 08/25/2025 11:32 AM EST Spoke with patient regarding fax received from [employer] about extending her short term disability. She stated Dr. López is extending her disability and the form should not have come to Dr. Veloz's office. No further needs at this time. documented in this [...] documented as of this encounter Care Teams Relay Dispatcher Relationship Specialty Start Date End Date Efrain Angeles MD [address] [place] [address] PCP - General 04/03/24 documented as of this encounter
--- OUTSIDE RECORDS SUMMARY | 2025-09-07 07:55 | XMS_ITS | Encounter Summary ---
Author Organization Healthcare Address [address] [place] [address] Care Team Providers Care Drill Runner Helper Name Role Phone Efrain Angeles MD Primary Care Provider [phone] Encounter Details Date Type Department Care Team (Late st Contact Info) Description 05/05/2025 Lab Requisition [facility] [address] [place] [address] Steve Veloz MD [address] [address] Cholecystitis, unspecified Social History Tobacco Use Types [...] EDT) Case Report Sugical Pathology Consult Case: [id number] Authorizing Provider: Steve Veloz MD Collected: 05/05/2025 1325 Ordering Location: [facility] Lab Received: 05/05/2025 1325 Pathologist: Marbin Patterson MD Specimen: Gallbladder, [id number] 05/14/2025 5:[address] [facility] Final Diagnosis GALLBLADDER, SIMPLE CHOLECYSTECTOMY (OUTSIDE CASE: [id number] COLLECTED ON 03/25/2025): - INVASIVE WELL-DIFFERENTIATE D [...] LYMPH NODE (0/1) 05/14/2025 5:[address] [facility] at 1717 EDT Comment The specific location of perimuscular invasion (peritoneal or hepatic) is unable to be determined. In the provided planes of section, the perimuscular soft tissue margins appear to be uninvolved by carcinoma. There is no evidence of perineural invasion, however, an area suspicious for lymphovascular invasion is seen. 05/14/2025 5:[address] [facility] Clinical Information K81.9 - Cholecystitis, unspecified [ICD-10-CM] 05/14/2025 5:17 PM EDT [facility] Gross Description A. [id number] Received along with a corresponding pathology report from [facility] are 38 slide(s) labeled outside case: [id number] collected on 03/25/2025. 05/14/2025 5:[address] [facility] Tissue Gallbladder structure / Unknown 05/05/2025 1:25 PM EDT 05/05/2025 1:25 PM EDT us Steve Veloz MD LAB PATHOLOGY ORDERABLES Fin al Result [facility] [address] [place] [address] documented in this encounter Visit Diagnoses Diagnosis Cholecystitis, unspecified documented in this encounter Additional Health Concerns Assessment Noted Time A Body Mass Index follow-up plan has been documented for the patient 04/20/2024 4:59 PM EDT documented as of this encounter Care Teams Drill Runner Helper Relationship Specialty Start Date End Date Efrain Angeles MD [address] [place] [address] PCP - General 04/03/24 documented as of this encounter
[2025-09-07 08:32] LABS: Hematocrit 39.6 % (37.0-47.0); Hemoglobin 13.0 g/dL (12.2-16.2); Immature Granulocytes % 0.2 %; Mean Corpuscular HGB Conc 32.8 g/dL (31.8-35.4); Mean Corpuscular Hemoglobin 31.3 pg (27.0-31.2); Mean Corpuscular Volume 95.2 fl (81-99); Nucleated Red Blood Cells % 0 %; Platelet Count 274 K/mm3 (142-424); Red Blood Count 4.16 M/mm3 (4.20-5.40); Red Cell Distribution Width-SD 58.4 fL; White Blood Count 8.1 K/mm3 (4.8-10.8)
[2025-09-07 08:41] LABS: Chloride 103 mmol/L (98-107)
[2025-09-07 08:42] LABS: Albumin Level 4.3 g/dl (3.5-5.0); Potassium 3.7 mmoL/L (3.5-5.1); Sodium 137 mmol/L (136-145)
[2025-09-07 08:44] LABS: Blood Urea Nitrogen 20 mg/dl (7-17); Creatinine,Serum 0.80 mg/dl (0.52-1.04); Estimated Glomerular Filt Rate 70 ml/min (>60); GFR (African American) 84 ML/MIN (>60)
[2025-09-07 08:45] LABS: Alanine Aminotransferase 21 U/L (12-78); Albumin/Globulin Ratio 1.5 (1.1-1.8); Alkaline Phosphatase 105 U/L (38-126); Anion Gap 7.7 mEq/L (5-15); Aspartate Amino Transferase 33 U/L (14-36); Bilirubin,Total 0.6 mg/dl (0.2-1.3); Calcium 9.3 mg/dl (8.4-10.2); Carbon Dioxide 30 mmol/L (22.0-30.0); Globulin 2.8 g/dL (1.3-3.2); Glucose 83 mg/dl (74-100); Total Protein,Serum 7.1 g/dl (6.3-8.2)
== END 2025-09-07 23:59 | disposition home or self-care (01) ==
LOC: LAB 07:50
PROVIDERS: PCP Family Medicine; Visit Provider Internal Medicine Medical Oncology
DX: C23 Malignant neoplasm of gallbladder (principal)
CPT/HCPCS: 36415; 80053; 85025

== ENCOUNTER 2025-09-21 10:00 | Outpatient (RCR) | payer MEDICARE, SELFPAY ==
--- NOTE | 2025-09-21 10:39 | HMH.RHREAS ---
Rehab Reassessment Rehab OP Re-assessment Start: 08/24/25 09:17 Freq: Status: Active Protocol: Document 09/21/25 10:29 FRANCISCO (Rec: 09/21/25 10:39 PHORNE [id number]) E-signed By Garrett Reich, PT Rehab Re-assessment Subjective Subjective Pt reports she feels her endurance to activity with all daily activities and ambulation have both improved since beginning therapy treatments. She states, I can clean my floors now and I couldn't do that before. I had to ana my travel coffee mug down the hill this morning and I didn't fall down, which is new for me. Objective Objective Notes B LE MMT: HIP FLEX 3/5, HIP ABD 3+/5, HIP EXT 3+/5, KNEE EXT 4/5, KNEE FLEX 4+/5 TU sec FTSTS: 22 sec DGI: vs on IE. Assessment Progress Assessment Progressing as Expected Assessment Notes Pt has been present for 7 treatment sessions since her last reassessment was performed. She has continued to improve her strength, ambulation, and ability to transfer overall since her initial evaluation. She remains limited in her general endurance and all of her functional mobility due to her continued weakness. Skilled therapy services remain indicated to improve all function and endurance to activity in order to return pt to PLOF. PT Patient Goals PT Short Term In 2 wks pt will complete these goals in order to aid Patient Goals improvement in function specifically with all ADLs: ( Remains active) 1) Improve B LE MMT to 3+/5 at least throughout 2) Improve DGI score to 20 or better 3) Decrease TUG time to 9 sec or less 4) Decrease 5TSTS time to 15 or less PT Longterm Patient In 4 wks pt will complete these goals in order to aid Goals improvement in function specifically with all ADLs: ( Remains active) 1) Improve B LE MMT to 4+/5 at least throughout 2) Improve DGI score to 22 or better 3) Decrease TUG time to 8 sec or less 4) Decrease 5TSTS time to 13 or less 5) Ambulate > 15 min consecutively without c/o fatigue. Plan Plan Continued pt treatment may include any or all of the following interventions in order to improve functional outcomes and aid pt improvement in QOL: Frequency of Therapy 2 x/wk Duration of Therapy 4 wks Therapeutic Exercise Yes Including Home Exercise Program Manual Therapy Yes Techniques Neuromuscular Re- Yes education Therapeutic Yes Activities to Return to Previous Functional/Work Level Gait Training Yes ADL/Self Care Yes Education Eval/Re-Eval Yes Time and Billing Re-Eval Time 14 Re-Eval Billing 0 Units Charge for PT No reassessment? PHYSICIAN CERTIFICATION: I certify the specified therapy services for Alyssia Holly are required, authorized, and reviewed every 30 days.
== END 2025-09-21 23:59 | disposition home or self-care (01) ==
LOC: PT 10:00
PROVIDERS: PCP Family Medicine; Visit Provider Internal Medicine Medical Oncology
DX: R53.1 Weakness (principal)
CPT/HCPCS: 97110; 97112; 97530